=== PATIENT | female | born 1960 | race Caucasian/White ===

== ENCOUNTER 2016-11-11 11:09 | Inpatient (IN) | payer MEDICARE, MEDICAID ==
--- NOTE | 2016-11-11 13:05 | RAD ---
HISTORY: Shortness of breath COMPARISONS: June 09, 2016 VIEWS:1: Single frontal portable view of the chest at 12:30 PM FINDINGS: LINES AND TUBES: There is a left-sided pacemaker CARDIOMEDIASTINAL SILHOUETTE: The cardiomediastinal silhouette is normal for portable technique. PLEURA: The costophrenic angles are sharp. No pleural abnormalities are noted. LUNG PARENCHYMA: There is a mild diffuse reticular pattern with indistinct pulmonary vessels. ABDOMEN: The upper abdomen is clear. There is no subphrenic gas. BONES AND SOFT TISSUES: No bone or soft tissue abnormalities are noted. IMPRESSION: MILD PULMONARY INTERSTITIAL EDEMA
[2016-11-11] MEDS ORDERED: LORazepam INJ* 2 MG/ML 1 ML VIAL IM ONE ×2 (18:56→19:35)
[2016-11-11] MEDS ORDERED: Acetaminophen TAB* 325 MG PO PRN (21:11)
[2016-11-11] MEDS ORDERED: Ondansetron INJ* 2 MG/ML VIAL IV PRN (21:11)
[2016-11-11] MEDS ORDERED: traMADol TAB* 50 MG PO PRN (21:16)
[2016-11-11 21:21] LABS: Hematocrit 29 % (35-47); Hemoglobin 9.3 g/dl (12.0-16.0); Mean Corpuscular HGB Conc 33 g/dl (31-36); Mean Corpuscular Hemoglobin 31 pg (27-31); Mean Corpuscular Volume 93 fL (80-97); Mean Platelet Volume 9 um3 (7.4-10.4); Red Blood Count 3.05 10^6/ul (4.0-5.4); Red Cell Distribution Width 16 % (10.5-15); White Blood Count 12.3 10^3/ul (3.5-10.8)
[2016-11-11] MEDS ORDERED: Spironolactone TAB* 25 MG PO SCH (21:30)
[2016-11-11] MEDS ORDERED: Albuterol/Ipratropium NEB.SOL* Albuterol 2.5 MG/Ipratropium 0.5 MG 3 ML INH PRN (21:33)
[2016-11-11 21:37] LABS: ALT 7 U/L (7-52); AST 15 U/L (13-39); Albumin 2.8 g/dL (3.2-5.2); Alkaline Phosphatase 88 U/L (34-104); Anion Gap 4 mmol/L (2-11); BUN/Creatinine Ratio 32.8 (8-20); Blood Urea Nitrogen 40 mg/dL (6-24); C Reactive Protein 22.06 mg/L (< 5.00); CO2 Carbon Dioxide 28 mmol/L (22-32); Calcium 8.9 mg/dL (8.6-10.3); Chloride 105 mmol/L (101-111); EGFR African American 58.9 (>60); EGFR Non-African American 45.8 (>60); Globulin 3.2 g/dL (2-4); Glucose 60 mg/dL (70-100); Lipase < 10 U/L (11.0-82.0); Magnesium 2.2 mg/dL (1.9-2.7); Potassium 4.3 mmol/L (3.5-5.0); Sodium 137 mmol/L (133-145)
[2016-11-11 21:39] LABS: Troponin I 0.03 ng/mL (<0.04)
[2016-11-11] MEDS ORDERED: Furosemide IV* 10 MG/ML 10 ML VIAL (100 MG) IV ONE (21:42)
[2016-11-11] MEDS ORDERED: Insulin GLARGINE(*) 1 UNITS UNIT SUBCUT SCH (22:00)
[2016-11-11 22:08] LABS: TSH (Thyroid Stimulating Horm) 1.58 mcIU/mL (0.34-5.60)
[2016-11-11 22:19] LABS: Urine Bacteria Absent (Absent); Urine Bilirubin Negative (Negative); Urine Glucose Negative (Negative); Urine Nitrite Negative (Negative)
--- NOTE | 2016-11-11 22:23 | RAD ---
INDICATION: Left flank pain. COMPARISON: Comparison is made with a prior CT of the abdomen and pelvis from January 28, 2016. TECHNIQUE: Multiple real-time images of the kidneys were obtained. FINDINGS: The kidneys are normal in size shape and echogenicity. The right kidney measured 10.2 x 4.7 x 5.8 cm and the left kidney measured 10.6 x 5.8 x 4.6 cm. No significant focal abnormality or hydronephrosis was present. IMPRESSION: NEGATIVE EXAM, NO EVIDENCE FOR HYDRONEPHROSIS.
[2016-11-11] MEDS: Ciprofloxacin 400MG IVPREMIX(* 400 MG/200 ML BAG IVPB SCH (22:45)
[2016-11-12] MEDS ORDERED: Insulin GLARGINE(*) 1 UNITS UNIT SUBCUT SCH ×2 (00:06→21:00)
--- NOTE | 2016-11-12 00:08 | PN ---
Progress Note - Progress Note Note: Patient had 2 sugars of 60 and 73. Will cut Lantus in half for now. Monitor FS and adjust accordingly.
[2016-11-12] MEDS ORDERED: Dextrose 50% Syringe 50 ML* 25 GM/50 ML SYRINGE IV PUSH PRN (00:21)
[2016-11-12] MEDS ORDERED: Insulin GLARGINE(*) 1 UNITS UNIT SUBCUT ONE (00:28)
--- NOTE | 2016-11-12 01:15 | ED ---
Shiva Wallace Erika, scribed for Jatinder Padilla MD on 11/11/16 at 1626 . Progress - Progress Note Progress Note: Discussed patient care with Dr. Rodriguez (hospitalist) at 16:24 - aware of patient. We were unable to obtain peripheral IV access for many hours and after many tries including with U/S guidance. I eventually placed a right femoral triple lumen and she was admitted to the hospitalist. Course/Dx - Course Course Of Treatment: Procedure Note: Using sterile technique and U/S guidance, a right femoral triple lumen was placed on the first attempt. She tolerated it well. - Diagnoses Provider Diagnoses: CHF (congestive heart failure) Discharge - Discharge Plan Condition: Guarded Disposition: ADMITTED TO [facility] The documentation as recorded by the scribeShiva Erika accurately reflects the service I personally performed and the decisions made by me, Jatinder Padilla MD.
--- NOTE | 2016-11-12 01:19 | HP ---
HISTORY AND PHYSICAL: DATE OF ADMISSION: 11/11/16 PRIMARY CARE PROVIDER: Dr. Valdes. ATTENDING PHYSICIAN WHILE IN THE HOSPITAL: Mihai Orozco MD *(report dictated by Vsihal Jonas NP). CHIEF COMPLAINT: 1. Orthopnea. 2. Dysuria. 3. Hematuria. HISTORY OF PRESENT ILLNESS: Ms. Galarza is a 56-year-old female patient that came into the ER today. She actually was sent here by Dr. Valdes's office as there was concern because she received IV outpatient Lasix yesterday. She has a pretty extensive history of coronary artery disease, history of CHF, her last EF according to the patient is about 25%. She has a history of peripheral vascular disease, COPD, hypertension, hyperlipidemia, restless leg syndrome, coronary artery disease, and diabetes as well and CKD stage 3. She has been receiving IV Lasix in the outpatient setting for orthopnea, which has been getting worse over the last couple of weeks. She says that she has about a 30- pound weight gain, we compared her weight here today, compared it to her weight at home with her home scale. She says that she also for the last few days had been complaining of having some dysuria, some frequency, also complaining of having some right-sided flank discomfort. She had the Lasix yesterday and she only voided 2 times afterwards, which was concerning. It was concerning that she was failing the outpatient therapy, so the patient was sent to the hospital today as there was concern that she may require inpatient stabilization of her CHF. Hospitalist service was asked to evaluate her admission. PAST MEDICAL HISTORY: Significant for: 1. Diabetic foot ulcer and pulmonary edema. 2. Insulin-dependent diabetes. 3. CKD stage 3. 4. PVD. 5. COPD. 6. Hypertension. 7. Hyperlipidemia. 8. CAD. 9. CHF, which is combined. 10. History of CVA. 11. Restless leg syndrome. 12. Carotid artery disease. 13. High grade left subclavian proximal stenosis. PAST SURGICAL HISTORY: 1. She has had an appendectomy. 2. Cholecystectomy. 3. Tonsillectomy. 4. . 5. Skin graft of the left foot. 6. Cervical laminectomy. 7. CABG. 8. Multiple amputations of the left foot. 9. Carotid endarterectomy. HOME MEDICATIONS: According to the list that was provided includes: 1. Nicotine 10 mg both nares b.i.d. 2. Lantus 45 units subcu at bedtime. 3. Carvedilol 12.5 mg p.o. b.i.d. 4. Brilinta 90 mg p.o. b.i.d. 5. Glucagon 1 mg injection once as needed. 6. EpiPen 0.3 mg IM once as needed. 7. Spironolactone 25 mg p.o. Wednesday, Wednesday, Wednesday. 8. Mirapex 3 to 5 mg p.o. at bedtime. 9. Ferrous gluconate 324 mg p.o. daily. 10. Aspirin 81 mg daily. 11. Gabapentin 1800 to 2400 mg p.o. at bedtime. 12. DuoNeb 1 neb inhaled t.i.d. as needed. 13. Nitro 0.4 sublingual q.5 minutes p.r.n. chest pain x3 as needed. 14. Demadex 20 mg daily as needed. 15. Spiriva 2 capsules inhaled daily. 16. Lyrica 50 mg p.o. t.i.d. as needed. 17. Dulera 2 puffs inhaled b.i.d. 18. Zofran 4 mg p.o. every 8 hours as needed. 19. Lispro 3 units subcu a.c., h.s. 20. Imdur 30 mg daily. 21. Vasotec 10 mg p.o. b.i.d. 22. Lipitor 80 mg daily. 23. Metolazone 5 mg daily. 24. Magnesium oxide 400 mg daily. 25. Repatha 140 mg subcu every 14 days. 26. Tramadol 50 to 100 mg p.o. at bedtime as needed. 27. Macrodantin 100 mg p.o. b.i.d. ALLERGIES TO MEDICATIONS: Include CEPHALOSPORIN, PENICILLIN, SULFA, DIPHENHYDRAMINE, MEROPENEM, VANCOMYCIN, CODEINE, and BEE STING. FAMILY HISTORY: She is adopted. SOCIAL HISTORY: She does live at home with her , Genaro, who is her healthcare proxy. She does smoke about 5 cigarettes a day, has been smoking for about 30 to 35 years. She denies any alcohol use. REVIEW OF SYSTEMS: There is no documented fever. There is a significant weight change of about 30 pounds. She denies having any double vision. There is no ear discharge. There is no rhinorrhea. No sore throat. No thyroid enlargement. She does deny having any chest pain. There is orthopnea. There is nocturnal dyspnea. There is abdominal discomfort. There was some dysuria, frequency. There was no loss of consciousness. No pruritus. No skin ulcerations. Review of 14 systems completed, all others negative. PHYSICAL EXAMINATION GENERAL: At this time, Ms. Galarza is a 56-year-old female patient. She is chronically ill appearing. She does not appear to be in acute distress. She is sitting in the ER stretcher. VITAL SIGNS: Blood pressure 141/81, pulse of 89, respirations 18, her O2 sat was 97% on room air. HEENT: Head: Atraumatic, normocephalic. Eyes: EOMs intact. Sclerae anicteric and not pale. Throat: Oral mucosa appears to be moist. No oropharyngeal erythema. NECK: Supple. LUNGS: She had wheezing noted in the upper lobes. She had equal diaphragmatic expansion noted. No crackles heard. HEART: Sounds S1, S2. Regular rate and rhythm. No murmurs, rubs, or gallops were appreciated. ABDOMEN: Soft, it was flat. It was nontender. Bowel sounds present. She did have some right-sided CVA tenderness. EXTREMITIES: Pulses are 2+ throughout. She does have an amputation of the left lower extremity. 5/5 strength. NEUROLOGIC: Awake, alert, and oriented x3. Tongue midline. Street Sweeper Operator are equal. No gross focal deficits. SKIN: Grossly intact. LABORATORY DATA: Chemistries are pending. Her WBC was 12.3, RBC was 3.05. Hemoglobin 9.3, hematocrit 29, platelet count 240. Her glucose at 2000 was 73. She had chest x-ray obtained today. On my review, it did appear that she had mild pulmonary interstitial edema. She had an EKG obtained today as well, which shows a left bundle-branch block, rate of 86. It was reviewed to her previous EKG, it is similar. Last echo from 2015 reveals an EF of 40% to 45%. Old medical records were reviewed. ASSESSMENT AND PLAN: Ms. Galarza is a complex 56-year-old female patient coming into the ER today with complaints of orthopnea. In addition, she is also having some dysuria and right-sided flank pain. She will be admitted under observation status for: 1. Orthopnea. At this point, I would like to wait for her chemistries before I decide on diuresing her. She does not appear to be extremis at this point. She does not have a lot of pitting edema. Before diuresing her some more with IV Lasix, I would like to assess her electrolyte status and particularly her kidney function to make sure we have not over diuresed her. She appears to be euvolemic under my impression, but she has gained this weight, and I do have weights from May of last year when she was here and she was 120. I would like to wait for the creatinine to help me dose the Lasix, and I may give her a dose of Lasix tonight and will continue to follow. 2. Dysuria, frequency. I do note that she has an elevated white count. She will be straight cathed for her urine. I am going to go ahead and get a renal ultrasound of the kidneys tonight and of the bladder to help evaluate to make sure she does not have any stone or obstruction but she is currently not having any discomfort at this point, so it makes the stone less likely, though we will monitor for any urological problem. 3. Diabetes. She will be on a lispro sliding scale. 4. Chronic obstructive pulmonary disease. She did have some wheezing on exam. We will continue the Dulera and her Spiriva and medications as prescribed. 5. Chronic kidney disease stage 3. Again, creatinine is pending. 6. Coronary artery disease. Continue meds as prescribed. 7. Hypertension. Continue meds as prescribed. 8. Hyperlipidemia. Continue statin therapy. 9. Coronary artery disease. She is on maximum medical therapy. We will continue her meds for the time being. 10. History of cerebrovascular accident. Continue with secondary prevention. 11. History of restless leg syndrome. Continue the Mirapex. 12. Carotid artery disease. She is on Brilinta and statin. Continue her meds as prescribed. 13. Peripheral vascular disease. Continue meds as prescribed. 14. DVT prophylaxis. She is high risk. She will be placed on heparin subcu. 15. Code status. She is a full code. 16. Fluid, electrolytes, nutrition. She can have a heart healthy diet. TIME SPENT: Time spent on the admission approximately 70 minutes, greater than half the time was spent [id number] with the patient obtaining my history and physical; other half of the time was spent going over the plan of care with the patient and implementing the plan of care. I discussed the plan of care with my attending, Dr. Orozco, who is in agreement. VISHAL JONAS NP CC: Dr. Valdes* [id number]/[facility] #: [id number]
[2016-11-12 05:07] LABS: Hematocrit 27 % (35-47); Mean Corpuscular HGB Conc 33 g/dl (31-36); Mean Corpuscular Hemoglobin 31 pg (27-31); Mean Corpuscular Volume 94 fL (80-97); Mean Platelet Volume 9 um3 (7.4-10.4); Red Blood Count 2.91 10^6/ul (4.0-5.4); Red Cell Distribution Width 15 % (10.5-15); White Blood Count 8.8 10^3/ul (3.5-10.8)
[2016-11-12 05:17] LABS: BUN/Creatinine Ratio 26.7 (8-20); Calcium 8.8 mg/dL (8.6-10.3); EGFR African American 42.7 (>60); EGFR Non-African American 33.2 (>60); Potassium 3.9 mmol/L (3.5-5.0)
[2016-11-12] MEDS: Heparin VIAL(*) 5000 UNITS/ML VIAL (FIVE THOUSAND) SUBCUT SCH ×4 (05:21→21:55)
[2016-11-12] MEDS ORDERED: traMADol TAB* 50 MG PO PRN (06:36)
[2016-11-12] MEDS: Insulin LISPRO* 1 UNITS UNIT SUBCUT SCH ×4 (08:06→22:03)
[2016-11-12] MEDS: Ferrous Gluconate TAB* 324 MG TAB PO SCH (08:14)
[2016-11-12] MEDS: Carvedilol TAB* 6.25 MG PO SCH ×2 (08:14→21:57)
[2016-11-12] MEDS: Enalapril TAB* 5 MG PO SCH ×2 (08:14→21:53)
[2016-11-12] MEDS: Magnesium Oxide TAB* 400 MG PO SCH (08:14)
[2016-11-12] MEDS: Pregabalin CAP(*) 50 MG PO SCH ×3 (08:14→22:01)
[2016-11-12] MEDS: Ticagrelor* 90 MG TAB PO SCH ×2 (08:14→22:00)
[2016-11-12] MEDS: Isosorbide Mononitrate ER TAB* 30 MG PO SCH (08:14)
[2016-11-12] MEDS: Aspirin EC Low Dose* 81 MG TAB.EC PO SCH (08:14)
[2016-11-12] MEDS ORDERED: Metolazone TAB* 5 MG PO SCH (09:00)
[2016-11-12] MEDS ORDERED: Spiriva Inhaler DEVICE* 1 EACH DEVICE INH ONE (09:00)
[2016-11-12] MEDS: Mometasone/Formoter 100/5 MDI INH SCH ×2 (09:13→21:16)
[2016-11-12] MEDS: Tiotropium CAP.INH* CAP.INH/18 MCG (USE ORDER SET !) INH SCH (09:14)
[2016-11-12] MEDS: Ciprofloxacin 400MG IVPREMIX(* 400 MG/200 ML BAG IVPB SCH (10:13)
--- NOTE | 2016-11-12 17:18 | PN ---
Subjective Date of Service: 11/12/16 Interval History: Patient seen and examined at bedside. Pt states that her orthopnea has improved , she continues to not urinate very much. Pt denies urinary symptoms of urgency , frequency or dysuria. Denies fever, chills, chest discomfort, V/V/D. Tele: Sinus rhythm, rate 60-70's. 4 beat run of Vtach overnight. Family History: Unchanged from Admission Social History: Unchanged from Admission Past Medical History: Unchanged from Admission Objective Active Medications: Acetaminophen (Tylenol Tab*) 650 mg PO Q6H PRN Reason: FEVER/PAIN Albuterol/Ipratropium (Duoneb Neb.Roxy*) 1 neb INH TID PRN Reason: SHORTNESS OF BREATH Aspirin (Aspirin Ec Low Dose*) 81 mg PO DAILY [facility] Atorvastatin Calcium (Lipitor*) 80 mg PO QPM [facility] Carvedilol (Coreg Tab*) 12.5 mg PO BID [place] Dextrose (D50w Syringe 50 Ml*) 12.5 gm IV PUSH .FOR FS < 60 - SS PRN Reason: FS < 60 Enalapril Maleate (Vasotec Tab*) 10 mg PO BID [facility] Ferrous Gluconate (Fergon Tab*) 324 mg PO DAILY [facility] Gabapentin (Neurontin Cap(*)) 1,800 mg PO BEDTIME [facility] Heparin Sodium (Porcine) (Heparin Flush Picc/Ml/Cvc(*)) 0 ml IV FLUSH 0600, 1800 [place] Heparin Sodium (Porcine) (Heparin Vial(*)) 5,000 units SUBCUT Q8HR [facility] Ciprofloxacin/Dextrose (Cipro 400 Mg Ivpremix(*)) 400 mg in 200 mls @ 200 mls/ hr IVPB Q12H [facility] Insulin Glargine (Lantus(*)) 20 units SUBCUT BEDTIME [facility] Insulin Human Lispro (Humalog*) 0 units SUBCUT ACHS [facility] Reason: Protocol Isosorbide Mononitrate (Imdur Er Tab*) 30 mg PO DAILY [facility] Magnesium Oxide (Magox 400 Tab*) 400 mg PO DAILY [facility] Metolazone (Zaroxolyn Tab*) 5 mg PO DAILY [facility] Mometasone Furoate/Formoterol Fumar (Dulera 100/5 Mdi*) 2 puff INH BID [facility] Ondansetron HCl (Zofran Inj*) 4 mg IV Q6H PRN Reason: NAUSEA Pramipexole Dihydrochloride (Mirapex Tab*) 1 mg PO BEDTIME [facility] Pregabalin (Lyrica Cap(*)) 50 mg PO TID [facility] Spironolactone (Aldactone Tab*) 25 mg PO MOWEFR [facility] Ticagrelor (Brilinta*) 90 mg PO BID [facility] Tiotropium [place] (Spiriva Cap.Inh*) 1 cap INH DAILY [facility] Tramadol HCl (Ultram*) 50 mg PO Q6H PRN Reason: PAIN Vital Signs 11/11/16 11/11/16 11/11/16 19:10 19:41 20:02 Temperature Pulse Rate Respiratory 18 18 Rate Blood Pressure 91/48 (mmHg) O2 Sat by Pulse Oximetry 11/11/16 11/11/16 11/11/16 20:46 21:00 21:56 Temperature Pulse Rate 83 82 109 Respiratory Rate Blood Pressure (mmHg) O2 Sat by Pulse 95 95 82 Oximetry 11/11/16 11/11/16 11/11/16 22:53 23:00 23:07 Temperature Pulse Rate Respiratory 16 Rate Blood Pressure 93/55 110/63 (mmHg) O2 Sat by Pulse Oximetry 11/11/16 11/12/16 11/12/16 23:09 00:00 00:32 Temperature 97.8 F Pulse Rate 77 83 Respiratory 16 16 Rate Blood Pressure 118/73 (mmHg) O2 Sat by Pulse 91 96 Oximetry 11/12/16 11/12/16 11/12/16 02:32 03:48 06:14 Temperature 98.2 F Pulse Rate 77 Respiratory 16 16 Rate Blood Pressure 112/62 (mmHg) O2 Sat by Pulse 98 98 Oximetry 11/12/16 11/12/16 11/12/16 07:19 08:14 11:07 Temperature 98.1 F 97.9 F Pulse Rate 75 65 Respiratory 18 15 15 Rate Blood Pressure 118/64 103/59 (mmHg) O2 Sat by Pulse 97 95 Oximetry 11/12/16 15:35 Temperature 98.0 F Pulse Rate 69 Respiratory 14 Rate Blood Pressure 104/59 (mmHg) O2 Sat by Pulse 97 Oximetry Oxygen Devices in Use Now: None Appearance: NAD, sitting up on the side of the bed. Eyes: No Scleral Icterus, PERRLA Ears/Nose/Mouth/Throat: NL Teeth, Lips, Gums, Mucous Membranes Moist Neck: NL Appearance and Movements; NL JVP, Trachea Midline Respiratory: Symmetrical Chest Expansion and Respiratory Effort, Clear to Auscultation Cardiovascular: NL Sounds; No Murmurs; No JVD, RRR Abdominal: NL Sounds; No Tenderness; No Distention - Bowel sounds present Extremities: - - Trace bilateral LE edema Skin: No Rash or Ulcers, - - Dressing to right groin clean, dry and intact Neurological: Alert and Oriented x 3, NL Muscle Strength and Tone Lines/Tubes/Other Access: Clean, Dry and Intact PICC Line - site benign Nutrition: Taking PO's Result Diagrams: 11/12/16 04:50 11/12/16 04:50 Microbiology and Other Data: Microbiology 11/12/16 00:10 Nasal Screen MRSA (PCR)(RYNE) - Final Nasal Mrsa Negative Assess/Plan/Problems-Billing Assessment: Ms. Galarza is a 56 yo female with PMH significant for DM, pulmonary edema, CKD, PVD, COPD, HTN, HLD, CAD, and combined CHF who presented to the emergency room with complaints of orthopnea, dysuria and right sided flank pain. - Patient Problems (1) Orthopnea Code(s): R06.01 - ORTHOPNEA SNOMED Code(s): 18125401 Comment: - Pt recieved IV lasix yesterday - Improved - Hold Spironolactone and reassess in the AM (2) Decreased urination Code(s): R34 - ANURIA AND OLIGURIA SNOMED Code(s): 707178284 Comment: - Denies urinary symptoms - U/A negative - Renal US negative (3) Diabetes mellitus with chronic kidney disease Code(s): E11.22 - TYPE 2 DIABETES MELLITUS W DIABETIC CHRONIC KIDNEY DISEASE SNOMED Code(s): 33784962 Comment: - Low blood sugars overnight - Glucose 100-190's - Continue Lantus 20 u (decreased) and Lispro insulin SS (4) COPD (chronic obstructive pulmonary disease) Code(s): J44.9 - CHRONIC OBSTRUCTIVE PULMONARY DISEASE, UNSPECIFIED SNOMED Code(s): 92296115 Comment: - Stable - Continue spiriva and Dulera (5) CAD (coronary artery disease) Code(s): I25.10 - ATHSCL HEART DISEASE OF [place] CORONARY ARTERY W/O ANG PCTRS SNOMED Code(s): 97957217 Comment: - LVEF 40-45% 01/24. - Continue ticagrelor, isosirbde, ASA, statin. (6) HTN (hypertension) Code(s): I10 - ESSENTIAL (PRIMARY) HYPERTENSION SNOMED Code(s): 84300810 Comment: - SBP 90-120's - Continue Vasotac and Carvediolol (7) CKD (chronic kidney disease) stage 3, GFR 30-59 ml/min Code(s): N18.3 - CHRONIC KIDNEY DISEASE, STAGE 3 (MODERATE) SNOMED Code(s): 155455509 Comment: - Creatinine near baseline, but from admission - Will recheck in the morning (8) DVT prophylaxis Code(s): DMF9196 - SNOMED Code(s): 523666123 Comment: - Continue SQ Heparin (9) Full code status Code(s): Z78.9 - OTHER SPECIFIED HEALTH STATUS SNOMED Code(s): 552087689 Status and Disposition: OBV to Inpatient. Plan for possible discharge to home in the AM.
[2016-11-12] MEDS ORDERED: Atorvastatin* 80 MG TAB PO SCH (18:00)
[2016-11-12] MEDS ORDERED: Pramipexole TAB* 0.5 MG PO SCH (21:00)
[2016-11-12] MEDS ORDERED: Gabapentin CAP(*) 300 MG PO SCH (21:00)
[2016-11-13] MEDS ORDERED: Temazepam CAP* 15 MG PO PRN (01:02)
[2016-11-13] MEDS: Heparin VIAL(*) 5000 UNITS/ML VIAL (FIVE THOUSAND) SUBCUT SCH (05:46)
[2016-11-13 07:40] LABS: BUN/Creatinine Ratio 30.1 (8-20); Calcium 9.1 mg/dL (8.6-10.3); EGFR African American 41.2 (>60); EGFR Non-African American 32.1 (>60); Potassium 4.7 mmol/L (3.5-5.0)
[2016-11-13] MEDS: Mometasone/Formoter 100/5 MDI INH SCH (08:54)
[2016-11-13] MEDS: Tiotropium CAP.INH* CAP.INH/18 MCG (USE ORDER SET !) INH SCH (08:55)
[2016-11-13] MEDS: Insulin LISPRO* 1 UNITS UNIT SUBCUT SCH (09:05)
[2016-11-13] MEDS: Magnesium Oxide TAB* 400 MG PO SCH (09:06)
[2016-11-13] MEDS: Aspirin EC Low Dose* 81 MG TAB.EC PO SCH (09:06)
[2016-11-13] MEDS: Carvedilol TAB* 6.25 MG PO SCH (09:06)
[2016-11-13] MEDS: Enalapril TAB* 5 MG PO SCH (09:06)
[2016-11-13] MEDS: Ferrous Gluconate TAB* 324 MG TAB PO SCH (09:06)
[2016-11-13] MEDS: Ticagrelor* 90 MG TAB PO SCH (09:07)
[2016-11-13] MEDS: Isosorbide Mononitrate ER TAB* 30 MG PO SCH (09:07)
[2016-11-13] MEDS: Pregabalin CAP(*) 50 MG PO SCH (09:07)
[2016-11-13 10:02] VITALS: BP 107/66
--- NOTE | 2016-11-13 10:14 | PN ---
Subjective Date of Service: 11/13/16 Interval History: Patient seen and examined at bedside. Pt is anxious to go home today, she reports a slight increase in her urine production overnight. She reports that her breathing is close to baseline. Denies fever, chills, shortness of breath, chest discomfort, N/V/D. Pt reports some left LE edema. Tele: Sinus rhythm, rate 60-70's. Family History: Unchanged from Admission Social History: Unchanged from Admission Past Medical History: Unchanged from Admission Objective Active Medications: Acetaminophen (Tylenol Tab*) 650 mg PO Q6H PRN Reason: FEVER/PAIN Albuterol/Ipratropium (Duoneb Neb.Roxy*) 1 neb INH TID PRN Reason: SHORTNESS OF BREATH Aspirin (Aspirin Ec Low Dose*) 81 mg PO DAILY [facility] Atorvastatin Calcium (Lipitor*) 80 mg PO QPM [facility] Carvedilol (Coreg Tab*) 12.5 mg PO BID [place] Dextrose (D50w Syringe 50 Ml*) 12.5 gm IV PUSH .FOR FS < 60 - SS PRN Reason: FS < 60 Enalapril Maleate (Vasotec Tab*) 10 mg PO BID [facility] Ferrous Gluconate (Fergon Tab*) 324 mg PO DAILY [facility] Gabapentin (Neurontin Cap(*)) 1,800 mg PO BEDTIME [facility] Heparin Sodium (Porcine) (Heparin Flush Picc/Ml/Cvc(*)) 0 ml IV FLUSH 0600, 1800 [place] Heparin Sodium (Porcine) (Heparin Vial(*)) 5,000 units SUBCUT Q8HR [facility] Insulin Glargine (Lantus(*)) 20 units SUBCUT BEDTIME [facility] Insulin Human Lispro (Humalog*) 0 units SUBCUT ACHS [facility] Isosorbide Mononitrate (Imdur Er Tab*) 30 mg PO DAILY [facility] Magnesium Oxide (Magox 400 Tab*) 400 mg PO DAILY [facility] Mometasone Furoate/Formoterol Fumar (Dulera 100/5 Mdi*) 2 puff INH BID [place] Ondansetron HCl (Zofran Inj*) 4 mg IV Q6H PRN Reason: NAUSEA Pramipexole Dihydrochloride (Mirapex Tab*) 1 mg PO BEDTIME [facility] Pregabalin (Lyrica Cap(*)) 50 mg PO TID [facility] Temazepam (Restoril Cap*) 15 mg PO BEDTIME PRN Reason: INSOMNIA Ticagrelor (Brilinta*) 90 mg PO BID [facility] Tiotropium [place] (Spiriva Cap.Inh*) 1 cap INH DAILY [facility] Tramadol HCl (Ultram*) 50 mg PO Q6H PRN Reason: PAIN Vital Signs 11/12/16 11/12/16 11/12/16 19:59 20:00 20:01 Temperature Pulse Rate 73 Respiratory 16 16 Rate Blood Pressure (mmHg) O2 Sat by Pulse Oximetry 11/12/16 11/12/16 11/12/16 20:12 21:16 21:56 Temperature 98.5 F Pulse Rate 76 Respiratory 16 16 Rate Blood Pressure 121/68 (mmHg) O2 Sat by Pulse 98 95 Oximetry 11/12/16 11/12/16 11/12/16 22:01 23:33 23:58 Temperature 98.6 F Pulse Rate 73 Respiratory 16 16 16 Rate Blood Pressure 110/58 (mmHg) O2 Sat by Pulse 96 Oximetry 11/13/16 11/13/16 11/13/16 00:01 04:23 07:44 Temperature 98.0 F Pulse Rate 69 Respiratory 16 16 16 Rate Blood Pressure 88/60 (mmHg) O2 Sat by Pulse 93 Oximetry 11/13/16 11/13/16 11/13/16 07:56 08:57 09:07 Temperature 97.7 F Pulse Rate 62 68 Respiratory 16 14 16 Rate Blood Pressure 107/66 (mmHg) O2 Sat by Pulse 99 98 Oximetry Oxygen Devices in Use Now: None Appearance: NAD, sitting up on the side of the bed. Eyes: No Scleral Icterus, PERRLA Ears/Nose/Mouth/Throat: NL Teeth, Lips, Gums, Mucous Membranes Moist Neck: NL Appearance and Movements; NL JVP, Trachea Midline Respiratory: Symmetrical Chest Expansion and Respiratory Effort, Clear to Auscultation Cardiovascular: NL Sounds; No Murmurs; No JVD, RRR Abdominal: NL Sounds; No Tenderness; No Distention - Bowel sounds present Extremities: - - Trace edema to right LE and Trace to 1+ edema to left LE. Skin: - - Dry and flaky Neurological: Alert and Oriented x 3, NL Muscle Strength and Tone Lines/Tubes/Other Access: Clean, Dry and Intact PICC Line - site benign Nutrition: Taking PO's Result Diagrams: 11/12/16 04:50 11/13/16 06:20 Microbiology and Other Data: Microbiology 11/12/16 00:10 Nasal Screen MRSA (PCR)(RYNE) - Final Nasal Mrsa Negative Assess/Plan/Problems-Billing Assessment: Ms. Galarza is a 56 yo female with PMH significant for DM, pulmonary edema, CKD, PVD, COPD, HTN, HLD, CAD, and combined CHF who presented to the emergency room with complaints of orthopnea, dysuria and right sided flank pain. - Patient Problems (1) Orthopnea Code(s): R06.01 - ORTHOPNEA SNOMED Code(s): 98417784 Comment: - Improved - Pt looks to be on the dry side - Spironolactone and Metolazone held (2) Decreased urination Code(s): R34 - ANURIA AND OLIGURIA SNOMED Code(s): 396983152 Comment: - Denies urinary symptoms - U/A negative - Renal US negative (3) Diabetes mellitus with chronic kidney disease Code(s): E11.22 - TYPE 2 DIABETES MELLITUS W DIABETIC CHRONIC KIDNEY DISEASE SNOMED Code(s): 90530603 Comment: - Low blood sugars overnight - Glucose 130-190's - Resume home Lantus 30 u (4) COPD (chronic obstructive pulmonary disease) Code(s): J44.9 - CHRONIC OBSTRUCTIVE PULMONARY DISEASE, UNSPECIFIED SNOMED Code(s): 92894512 Comment: - Stable - Continue spiriva and Dulera (5) CAD (coronary artery disease) Code(s): I25.10 - ATHSCL HEART DISEASE OF [place] CORONARY ARTERY W/O ANG PCTRS SNOMED Code(s): 75647624 Comment: - LVEF 40-45% 01/24. - Continue ticagrelor, isosirbde, ASA, statin. (6) HTN (hypertension) Code(s): I10 - ESSENTIAL (PRIMARY) HYPERTENSION SNOMED Code(s): 47879086 Comment: - SBP 88-120's - Continue Vasotac and Carvediolol (7) CKD (chronic kidney disease) stage 3, GFR 30-59 ml/min Code(s): N18.3 - CHRONIC KIDNEY DISEASE, STAGE 3 (MODERATE) SNOMED Code(s): 745472500 Comment: - Creatinine near baseline, but from admission - Will recheck in the morning (8) DVT prophylaxis Code(s): GQE9758 - SNOMED Code(s): 626702489 Comment: - Continue SQ Heparin (9) Full code status Code(s): Z78.9 - OTHER SPECIFIED HEALTH STATUS SNOMED Code(s): 260547817 Status and Disposition: Inpatient. Stable for discharge to home.
--- NOTE | 2016-11-13 23:47 | DS ---
DISCHARGE SUMMARY: DATE OF ADMISSION: 11/11/16 DATE OF DISCHARGE: 11/13/16 ATTENDING PHYSICIAN: Dr. Bubba Hess* (dictated by Tressa Arnold NP). PRIMARY CARE PROVIDER: Moises Valdes MD PRIMARY DIAGNOSIS: Orthopnea secondary to congestive heart failure exacerbation. SECONDARY DIAGNOSES: 1. Diabetes mellitus. 2. Chronic obstructive pulmonary disease. 3. Chronic kidney disease, stage 3. 4. Coronary artery disease. 5. Hypertension. 6. Hyperlipidemia. 7. Peripheral vascular disease. STUDIES WHILE IN THE HOSPITAL: 1. Chest x-ray on 11/11/16. Radiologist's impression: Mild pulmonary interstitial edema. 2. Renal ultrasound on 11/11/16. Radiologist's impression: Negative exam. No evidence for hydronephrosis. DISCHARGE MEDICATIONS: New home medications: 1. Heparin flush 1 mL IV twice daily. 2. Sodium chloride flush 10 mL IV twice daily to flush PICC line per protocol. Continued home medications: 1. Dulera 100/5 two puffs inhalation twice daily. 2. Zofran 4 mg oral every 8 hours as needed for nausea. 3. Brilinta 90 mg oral twice daily. 4. Aspirin 81 mg oral daily. 5. Ferrous gluconate 324 mg oral daily. 6. Isosorbide 30 mg oral daily. 7. Lyrica 50 mg oral 3 times daily. 8. Glucagon 1 mg injection as needed for glucose less than 60. 9. Epinephrine 0.3 mg intramuscular once as needed for allergy symptoms. 10. Mirapex 3 to 5 mg oral at bedtime. 11. Neurontin 1800 to 2400 mg oral at bedtime daily. 12. DuoNeb one nebulizer inhalation 3 times daily as needed for shortness of breath or wheeze. 13. Nitroglycerin 0.4 mg sublingual every 5 minutes as needed for chest pain. 14. Atorvastatin 80 mg oral daily. 15. Magnesium oxide 400 mg oral daily. 16. Repatha SureClick 140 mg subcutaneous every 14 days. 17. Tramadol 50 to 100 mg oral at bedtime daily as needed for pain. 18. Nitrofurantoin 100 mg oral twice daily. 19. Nicotine 10 mg to both nares twice daily. 20. Carvedilol 12.5 mg oral twice daily. 21. Spiriva 2 capsules inhalation daily. 22. Lispro insulin 3 units subcutaneous before meals and at bedtime. 23. Enalapril 10 mg oral twice daily. Changed home medications: Lantus insulin 30 units subcutaneous daily at bedtime. HISTORY OF PRESENT ILLNESS/HOSPITAL COURSE: Ms. Galarza is a 56-year-old female with past medical history significant for diabetes mellitus, chronic kidney disease, peripheral vascular disease, coronary artery disease, combined congestive heart failure, who presented to the emergency room from Dr. Valdes's office with concerns for orthopnea and decreased urinary output. The patient had been receiving IV Lasix in the outpatient setting for orthopnea, which had been getting worse over the last couple of weeks. The patient states that she has gained about 30 pounds in comparison to her last stay in April. The patient also had complaints of decreased urinary output. The patient states that she had only voided 2 times after receiving IV Lasix the day prior and felt that was concerning. The patient was concerned. She was failing outpatient therapy and due to recommendations by her primary care provider, she was sent to the emergency room for further evaluation of her congestive heart failure. While in the emergency room, the patient had a chest x-ray showing mild pulmonary interstitial edema. The patient had an EKG showing a left bundle branch block that was similar to previous EKGs. The patient's last known echo from January 2016 revealed EF of 40% to 45%. Due to concern of the patient's heart failure not responding to outpatient therapy, Hospitalists were asked to evaluate the patient for admission. While in the hospital, the patient had a renal ultrasound showing no acute findings. The patient received IV Lasix in the emergency room and really did not diurese very much. The patient was able to void 100 mL and then reportedly went 12 hours before she voided again. The patient was bladder scanned. She was deemed to have 100 to 200 mL in her bladder. The patient felt that her orthopnea had improved after receiving the IV Lasix. She was able to lie flatter. The patient reported her shortness of breath improving. She was not requiring supplemental oxygen. The patient's vital signs were stable. It is to note that the patient was difficult IV stick and had to have a PICC placed during her stay. The patient had leukocytosis on arrival to the emergency room and that resolved on her next day. During the patient's stay, her BUN and creatinine has continued to elevate slightly. It appeared that the patient was on the dry side. She was reporting feeling better. The patient was asked to stay one more night so that she could be monitored and labs checked again in the morning. The patient continues to report no shortness of breath, reports that she is urinating a little bit more than she initially had. Due to the patient clinically appearing to be dry with dry flaky skin and dry mucous membranes, the patient's outpatient diuretics were held. It was felt that the patient was stable for discharge to home today with close followup with her provider as an outpatient. Ms. Galarza was stable for discharge to home today. Vital signs are as follows: Temperature 97.7, heart rate 68, respiratory rate 14, O2 sat 98% on room air, blood pressure 107/66. DISCHARGE PLAN: Ms. Galarza will be discharged to home today. Activity as tolerated. The patient has been asked to hold her diuretics including her spironolactone and metolazone over the weekend. She has been asked to monitor her weights daily. If she gains 2 pounds over the weekend, she has been asked to restart her daily metolazone. The patient has been asked to call her provider if she gains 3 pounds in 24 hours. The patient has been asked to hold her spironolactone and torsemide until she sees her provider in followup early next week. The patient will go home with a PICC line as she has a hard IV access and has a scheduled procedure in 3 weeks. I recommend considering having the patient see Dr. Graham Zavala in consultation as an outpatient for possible port placement in the outpatient setting as she has been an increasingly difficult IV start. The patient should follow with her field crop i farmworker, Dr. Johnson. She has an appointment on 11/24/16. The patient has an appointment with her primary care provider, Dr. Valdes, on 11/17/16 at 11:10. The patient has also been setup with visiting nurse to help with maintenance of her PICC. The patient has been continued on all of her usual medications. Her Lantus was decreased from 45 units daily to 30 units daily as she was running a little hypoglycemic in the mornings. The patient has been asked to return to the emergency room for shortness of breath or chest discomfort. It is to note that during the patient's stay, her last weight discharge was 159 and 12.8 ounces. This was pretty consistent with other weights taken during her stay. This is a summarized report of a complex medical history and hospital stay. For further details, please see the entire medical record. TIME SPENT: Time for this discharge was 50 minutes; 25 minutes were spent face- to- face with the patient discussing discharge plans and instructions. CONDITION ON DISCHARGE: Stable. Reviewed by TANIA HERNANDEZ 11/25/16 1443 CC: Dr. Valdes; Dr. Johnson* [id number] #: [id number] [facility]ERN[facility] HOSPITALJaylen
--- NOTE | 2016-12-12 11:02 | ED ---
Keo Wallace Benjamin, scribed for Riccardo Morales MD on 11/11/16 at 1156 . Shortness of Breath - HPI Summary HPI Summary: 56yo female sent by her PCP Dr. Johnson for recent 10-15lb water weight gain. Pt Pt also reports dyspnea with exertion, orthopnea, and swollen right ankle. Pt was given Lasix yesterday. Hx of HTN, DM, CHF, hypercholesterolemia, renal insufficiency, and left leg amputation. - History of Current Complaint Chief Complaint: EDRespiratoryDistress Time Seen by Provider: 11/11/16 11:43 Hx Obtained From: Patient Timing: Constant Current Severity: Mild Dyspnea At: Exertion Aggrevating Factors: Movement Alleviating Factors: Nothing Associated Signs & Symptoms: Calf Pain/Swelling - Allergy/Home Medications Allergies/Adverse Reactions: Allergies Allergy/AdvReac Type Severity Reaction Status Date / Time Cephalosporins Allergy Severe Shortness Verified 12/01/16 16:06 of Breath Penicillins Allergy Intermediate Hives Verified 12/01/16 16:06 Sulfa Drugs Allergy Intermediate Hives Verified 12/01/16 16:06 Bee Venom Allergy Swelling Verified 12/06/16 12:09 Of Face,Lips,& Throat Diphenhydramine Allergy Difficulty Verified 12/01/16 16:06 Breathing Meropenem Allergy Diarrhea Verified 12/01/16 16:06 Vancomycin Allergy Hives Verified 12/01/16 16:06 Codeine AdvReac Intermediate Vomiting Verified 12/01/16 16:06 bee sting Allergy Severe Hives, Uncoded 12/01/16 16:06 CLOSES UP THROAT PMH/Surg Hx/FS Hx/Imm Hx Endocrine/Hematology History: Reports: Hx Blood Transfusions, Hx Diabetes, Hx Anemia Denies: Hx Systemic Lupus Erythematosus, Hx Thyroid Disease Cardiovascular History: Reports: Hx Angioplasty, Hx Cardiac Arrest, Hx Congestive Heart Failure - ACUTE CHF, Hx Coronary Artery Disease, Hx Hypercholesterolemia, Hx Hypertension, Hx Myocardial Infarction, Hx Peripheral Vascular Disease, Other Cardiovascular Problems/Disorders - leaky valve Denies: Hx Angina, Hx Pacemaker/ICD, Hx Valvular Heart Disease Respiratory History: Reports: Hx Asthma, Hx Chronic Bronchitis, Hx Chronic Obstructive Pulmonary Disease (COPD), Hx Pneumonia, Hx Pulmonary Edema, Hx Seasonal Allergies, Hx Sleep Apnea, Other Respiratory Problems/Disorders - respiratory failure, uses home oxygen GI History: Reports: Hx Gall Bladder Disease - removed Denies: Hx Ulcer, Other GI Disorders History: Reports: Other Problems/Disorders - 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 Denies: Hx Dialysis, Hx Renal Disease Musculoskeletal History: Reports: Hx Arthritis, Hx Back Problems - h/o cervical laminectomy x3, Hx Fibromyalgia, Hx Osteoporosis, Hx Scoliosis, Other Musculoskeletal History - osteomyelitis left great toe Denies: Hx Rheumatoid Arthritis Sensory History: Reports: Hx Cataracts - MANPREET, Hx Contacts or Glasses, Hx Vision Problem, Hx Hearing Problem - R ear numbness and decreased hearing r/t TIA per pt Denies: Hx Hearing Aid Opthamlomology History: Reports: Hx Cataracts - MANPREET, Hx Contacts or Glasses, Hx Vision Problem Neurological History: Reports: Hx Migraine, Hx Nerve Disease - in patients back and arms, Hx Seizures, Hx Transient Ischemic Attacks (TIA), Other Neuro Impairments/Disorders - diabetic neuropathy Denies: Hx Dementia Psychiatric History: Reports: Hx Depression Denies: Hx Panic Disorder - Cancer History Hx Chemotherapy: No - Surgical History Surgery Procedure, Year, and Place: CARDIAC STENTS(4 PROMUS AND 1 VISIPRO PLACED AT [facility] – [place], [place]-1.5T [facility] TRIPLE BYPASS, BILATERAL CAROTID ENDARTERECTOMY ,LAP ADDY,HYSTERECTOMY,LEFT GREAT TOE AMPUTATION,APPY, T&A ,STERNAL WIRES ,LUMBAR SPINE FUSION,CSP FUSION , C SECTION,LEFT FOOT PARTIALLY AMPUTATED-GALLBLADDER REMOVED-BACK SURGERY-LASER SURGERY Hx Anesthesia Reactions: No - Immunization History Date of Tetanus Vaccine: utd per pt Date of Influenza Vaccine: utd per pt Infectious Disease History: No Infectious Disease History: Reports: Hx of Known/Suspected MRSA Denies: Hx Clostridium Difficile, Hx Hepatitis, Hx Human Immunodeficiency Virus (HIV), Hx Shingles, Hx Tuberculosis, Hx Known/Suspected VRE, Hx Known/ Suspected VRSA, History Other Infectious Disease, Traveled Outside the [place] in Last 30 Days - Family History Known Family History: Positive: Unknown - pt is adopted - Social History Alcohol Use: None Substance Use Type: Reports: None Hx Tobacco Use: Yes Smoking Status (MU): Light Every Day Tobacco Smoker Type: Cigarettes Amount Used/How Often: 5 cigarettes per day Length of Time of Smoking/Using Tobacco: 30 years Have You Smoked in the Last Year: Yes Review of Systems Constitutional: Negative Eyes: Negative ENT: Negative Cardiovascular: Negative Positive: Shortness Of Breath Gastrointestinal: Negative Genitourinary: Negative Positive: Edema - right leg Skin: Negative Neurological: Negative Psychological: Normal All Other Systems Reviewed And Are Negative: Yes Physical Exam Triage Information Reviewed: Yes Vital Signs On Initial Exam: Initial Vitals Temp Pulse Resp BP Pulse Ox 98.6 F 88 20 122/77 100 11/11/16 11:13 11/11/16 11:13 11/11/16 11:13 11/11/16 11:13 11/11/16 11:13 Vital Signs Reviewed: Yes Appearance: Positive: Well-Appearing, No Pain Distress, Well-Nourished Skin: Positive: Warm, Skin Color Reflects Adequate Perfusion, Dry Head/Face: Positive: Normal Head/Face Inspection Eyes: Positive: Normal ENT: Positive: Normal ENT inspection Neck: Positive: Supple, Nontender Respiratory/Lung Sounds: Positive: Clear to Auscultation, Breath Sounds Present Cardiovascular: Positive: RRR Abdomen Description: Positive: Nontender, No Organomegaly, Soft Bowel Sounds: Positive: Present Musculoskeletal: Positive: Normal, Strength/ROM Intact, Edema Right, Other - left leg amputated Neurological: Positive: Normal, Sensory/Motor Intact, Alert, Oriented to Person Place, Time, CN Intact II-III Psychiatric: Positive: Normal, Affect/Mood Appropriate Diagnostics - Vital Signs Vital Signs Temp Pulse Resp BP Pulse Ox 11/11/16 11:13 98.6 F 88 20 122/77 100 - Laboratory Lab Results: Lab Results 11/11/16 11/11/16 11/11/16 Range/Units 20:07 21:07 21:07 WBC 12.3 H (3.5-10.8) 10^3/ul RBC 3.05 L (4.0-5.4) 10^6/ul Hgb 9.3 L (12.0-16.0) g/dl Hct 29 L (35-47) % MCV 93 (80-97) fL MCH 31 (27-31) pg MCHC 33 (31-36) g/dl RDW 16 H (10.5-15) % Plt Count 240 (150-450) 10^3/ul MPV 9 (7.4-10.4) um3 Neut % (Auto) 77.1 (38-83) % Lymph % (Auto) 15.3 L (25-47) % [place] % (Auto) 5.8 (1-9) % Eos % (Auto) 1.2 (0-6) % Baso % (Auto) 0.6 (0-2) % Absolute Neuts (auto) 9.5 H (1.5-7.7) 10^3/ul Absolute Lymphs (auto) 1.9 (1.0-4.8) 10^3/ul Absolute Monos (auto) 0.7 (0-0.8) 10^3/ul Absolute Eos (auto) 0.1 (0-0.6) 10^3/ul Absolute Basos (auto) 0.1 (0-0.2) 10^3/ul Absolute Nucleated RBC 0.01 10^3/ul Nucleated RBC % 0.1 INR (Anticoag Therapy) 0.93 (0.89-1.11) APTT 32.6 (26.0-36.3) seconds Sodium (133-145) mmol/L Potassium (3.5-5.0) mmol/L Chloride (101-111) mmol/L Carbon Dioxide (22-32) mmol/L Anion Gap (2-11) mmol/L BUN (6-24) mg/dL Creatinine (0.51-0.95) mg/dL Est GFR ( Amer) (>60) Est GFR (Non-Af Amer) (>60) BUN/Creatinine Ratio (8-20) Glucose (70-100) mg/dL POC Glucose (mg/dL) 73 L (74-106) mg/dL Lactic Acid (0.5-2.0) mmol/L Calcium (8.6-10.3) mg/dL Magnesium (1.9-2.7) mg/dL Total Bilirubin (0.2-1.0) mg/dL AST (13-39) U/L ALT (7-52) U/L Alkaline Phosphatase (34-104) U/L Troponin I (<0.04) ng/mL C-Reactive Protein (< 5.00) mg/L B-Natriuretic Peptide ( - 100) pg/mL Total Protein (6.4-8.9) g/dL Albumin (3.2-5.2) g/dL Globulin (2-4) g/dL Albumin/Globulin Ratio (1-3) Lipase (11.0-82.0) U/L TSH (0.34-5.60) mcIU/mL Urine Color Urine Appearance Urine pH (5-9) Ur Specific [place] (1.010-1.030) Urine Protein (Negative) Urine Ketones (Negative) Urine Blood (Negative) Urine Nitrate (Negative) Urine Bilirubin (Negative) Urine Urobilinogen (Negative) Ur Leukocyte Esterase (Negative) Urine WBC (Auto) (Absent) Urine RBC (Auto) (Absent) Ur Squamous Epith Cells (Absent) Urine Bacteria (Absent) Urine Glucose (Negative) 11/11/16 11/11/16 11/11/16 Range/Units 21:07 21:07 21:07 WBC (3.5-10.8) 10^3/ul RBC (4.0-5.4) 10^6/ul Hgb (12.0-16.0) g/dl Hct (35-47) % MCV (80-97) fL MCH (27-31) pg MCHC (31-36) g/dl RDW (10.5-15) % Plt Count (150-450) 10^3/ul MPV (7.4-10.4) um3 Neut % (Auto) (38-83) % Lymph % (Auto) (25-47) % [place] % (Auto) (1-9) % Eos % (Auto) (0-6) % Baso % (Auto) (0-2) % Absolute Neuts (auto) (1.5-7.7) 10^3/ul Absolute Lymphs (auto) (1.0-4.8) 10^3/ul Absolute Monos (auto) (0-0.8) 10^3/ul Absolute Eos (auto) (0-0.6) 10^3/ul Absolute Basos (auto) (0-0.2) 10^3/ul Absolute Nucleated RBC 10^3/ul Nucleated RBC % INR (Anticoag Therapy) (0.89-1.11) APTT (26.0-36.3) seconds Sodium 137 (133-145) mmol/L Potassium 4.3 (3.5-5.0) mmol/L Chloride 105 (101-111) mmol/L Carbon Dioxide 28 (22-32) mmol/L Anion Gap 4 (2-11) mmol/L BUN 40 H (6-24) mg/dL Creatinine 1.22 H (0.51-0.95) mg/dL Est GFR ( Amer) 58.9 (>60) Est GFR (Non-Af Amer) 45.8 (>60) BUN/Creatinine Ratio 32.8 H (8-20) Glucose 60 L (70-100) mg/dL POC Glucose (mg/dL) (74-106) mg/dL Lactic Acid 0.5 (0.5-2.0) mmol/L Calcium 8.9 (8.6-10.3) mg/dL Magnesium 2.2 (1.9-2.7) mg/dL Total Bilirubin 0.50 (0.2-1.0) mg/dL AST 15 (13-39) U/L ALT 7 (7-52) U/L Alkaline Phosphatase 88 (34-104) U/L Troponin I 0.03 (<0.04) ng/mL C-Reactive Protein 22.06 H (< 5.00) mg/L B-Natriuretic Peptide 357 H ( - 100) pg/mL Total Protein 6.0 L (6.4-8.9) g/dL Albumin 2.8 L (3.2-5.2) g/dL Globulin 3.2 (2-4) g/dL Albumin/Globulin Ratio 0.9 L (1-3) Lipase < 10 L (11.0-82.0) U/L TSH 1.58 (0.34-5.60) mcIU/mL Urine Color Urine Appearance Urine pH (5-9) Ur Specific [place] (1.010-1.030) Urine Protein (Negative) Urine Ketones (Negative) Urine Blood (Negative) Urine Nitrate (Negative) Urine Bilirubin (Negative) Urine Urobilinogen (Negative) Ur Leukocyte Esterase (Negative) Urine WBC (Auto) (Absent) Urine RBC (Auto) (Absent) Ur Squamous Epith Cells (Absent) Urine Bacteria (Absent) Urine Glucose (Negative) 11/11/16 11/12/16 11/12/16 Range/Units 22:00 04:50 04:50 WBC 8.8 (3.5-10.8) 10^3/ul RBC 2.91 L (4.0-5.4) 10^6/ul Hgb 9.0 L (12.0-16.0) g/dl Hct 27 L (35-47) % MCV 94 (80-97) fL MCH 31 (27-31) pg MCHC 33 (31-36) g/dl RDW 15 (10.5-15) % Plt Count 212 (150-450) 10^3/ul MPV 9 (7.4-10.4) um3 Neut % (Auto) 72.6 (38-83) % Lymph % (Auto) 18.2 L (25-47) % [place] % (Auto) 6.6 (1-9) % Eos % (Auto) 1.8 (0-6) % Baso % (Auto) 0.8 (0-2) % Absolute Neuts (auto) 6.4 (1.5-7.7) 10^3/ul Absolute Lymphs (auto) 1.6 (1.0-4.8) 10^3/ul Absolute Monos (auto) 0.6 (0-0.8) 10^3/ul Absolute Eos (auto) 0.2 (0-0.6) 10^3/ul Absolute Basos (auto) 0.1 (0-0.2) 10^3/ul Absolute Nucleated RBC 0 10^3/ul Nucleated RBC % 0 INR (Anticoag Therapy) (0.89-1.11) APTT (26.0-36.3) seconds Sodium 136 (133-145) mmol/L Potassium 3.9 (3.5-5.0) mmol/L Chloride 102 (101-111) mmol/L Carbon Dioxide 31 (22-32) mmol/L Anion Gap 3 (2-11) mmol/L BUN 43 H (6-24) mg/dL Creatinine 1.61 H (0.51-0.95) mg/dL Est GFR ( Amer) 42.7 (>60) Est GFR (Non-Af Amer) 33.2 (>60) BUN/Creatinine Ratio 26.7 H (8-20) Glucose 97 (70-100) mg/dL POC Glucose (mg/dL) (74-106) mg/dL Lactic Acid (0.5-2.0) mmol/L Calcium 8.8 (8.6-10.3) mg/dL Magnesium (1.9-2.7) mg/dL Total Bilirubin (0.2-1.0) mg/dL AST (13-39) U/L ALT (7-52) U/L Alkaline Phosphatase (34-104) U/L Troponin I (<0.04) ng/mL C-Reactive Protein (< 5.00) mg/L B-Natriuretic Peptide ( - 100) pg/mL Total Protein (6.4-8.9) g/dL Albumin (3.2-5.2) g/dL Globulin (2-4) g/dL Albumin/Globulin Ratio (1-3) Lipase (11.0-82.0) U/L TSH (0.34-5.60) mcIU/mL Urine Color Yellow Urine Appearance Clear Urine pH 5.0 (5-9) Ur Specific [place] 1.016 (1.010-1.030) Urine Protein 3+(>=500 mg/dl) H (Negative) Urine Ketones Negative (Negative) Urine Blood Negative (Negative) Urine Nitrate Negative (Negative) Urine Bilirubin Negative (Negative) Urine Urobilinogen Negative (Negative) Ur Leukocyte Esterase Negative (Negative) Urine WBC (Auto) Trace(0-5/hpf) (Absent) Urine RBC (Auto) Trace(0-2/hpf) (Absent) Ur Squamous Epith Cells Present H (Absent) Urine Bacteria Absent (Absent) Urine Glucose Negative (Negative) 11/12/16 11/12/16 11/12/16 Range/Units 04:50 07:41 11:36 WBC (3.5-10.8) 10^3/ul RBC (4.0-5.4) 10^6/ul Hgb (12.0-16.0) g/dl Hct (35-47) % MCV (80-97) fL MCH (27-31) pg MCHC (31-36) g/dl RDW (10.5-15) % Plt Count (150-450) 10^3/ul MPV (7.4-10.4) um3 Neut % (Auto) (38-83) % Lymph % (Auto) (25-47) % [place] % (Auto) (1-9) % Eos % (Auto) (0-6) % Baso % (Auto) (0-2) % Absolute Neuts (auto) (1.5-7.7) 10^3/ul Absolute Lymphs (auto) (1.0-4.8) 10^3/ul Absolute Monos (auto) (0-0.8) 10^3/ul Absolute Eos (auto) (0-0.6) 10^3/ul Absolute Basos (auto) (0-0.2) 10^3/ul Absolute Nucleated RBC 10^3/ul Nucleated RBC % INR (Anticoag Therapy) 0.95 (0.89-1.11) APTT (26.0-36.3) seconds Sodium (133-145) mmol/L Potassium (3.5-5.0) mmol/L Chloride (101-111) mmol/L Carbon Dioxide (22-32) mmol/L Anion Gap (2-11) mmol/L BUN (6-24) mg/dL Creatinine (0.51-0.95) mg/dL Est GFR ( Amer) (>60) Est GFR (Non-Af Amer) (>60) BUN/Creatinine Ratio (8-20) Glucose (70-100) mg/dL POC Glucose (mg/dL) 107 H 151 H (74-106) mg/dL Lactic Acid (0.5-2.0) mmol/L Calcium (8.6-10.3) mg/dL Magnesium (1.9-2.7) mg/dL Total Bilirubin (0.2-1.0) mg/dL AST (13-39) U/L ALT (7-52) U/L Alkaline Phosphatase (34-104) U/L Troponin I (<0.04) ng/mL C-Reactive Protein (< 5.00) mg/L B-Natriuretic Peptide ( - 100) pg/mL Total Protein (6.4-8.9) g/dL Albumin (3.2-5.2) g/dL Globulin (2-4) g/dL Albumin/Globulin Ratio (1-3) Lipase (11.0-82.0) U/L TSH (0.34-5.60) mcIU/mL Urine Color Urine Appearance Urine pH (5-9) Ur Specific [place] (1.010-1.030) Urine Protein (Negative) Urine Ketones (Negative) Urine Blood (Negative) Urine Nitrate (Negative) Urine Bilirubin (Negative) Urine Urobilinogen (Negative) Ur Leukocyte Esterase (Negative) Urine WBC (Auto) (Absent) Urine RBC (Auto) (Absent) Ur Squamous Epith Cells (Absent) Urine Bacteria (Absent) Urine Glucose (Negative) 11/12/16 Range/Units 17:05 WBC (3.5-10.8) 10^3/ul RBC (4.0-5.4) 10^6/ul Hgb (12.0-16.0) g/dl Hct (35-47) % MCV (80-97) fL MCH (27-31) pg MCHC (31-36) g/dl RDW (10.5-15) % Plt Count (150-450) 10^3/ul MPV (7.4-10.4) um3 Neut % (Auto) (38-83) % Lymph % (Auto) (25-47) % [place] % (Auto) (1-9) % Eos % (Auto) (0-6) % Baso % (Auto) (0-2) % Absolute Neuts (auto) (1.5-7.7) 10^3/ul Absolute Lymphs (auto) (1.0-4.8) 10^3/ul Absolute Monos (auto) (0-0.8) 10^3/ul Absolute Eos (auto) (0-0.6) 10^3/ul Absolute Basos (auto) (0-0.2) 10^3/ul Absolute Nucleated RBC 10^3/ul Nucleated RBC % INR (Anticoag Therapy) (0.89-1.11) APTT (26.0-36.3) seconds Sodium (133-145) mmol/L Potassium (3.5-5.0) mmol/L Chloride (101-111) mmol/L Carbon Dioxide (22-32) mmol/L Anion Gap (2-11) mmol/L BUN (6-24) mg/dL Creatinine (0.51-0.95) mg/dL Est GFR ( Amer) (>60) Est GFR (Non-Af Amer) (>60) BUN/Creatinine Ratio (8-20) Glucose (70-100) mg/dL POC Glucose (mg/dL) 199 H (74-106) mg/dL Lactic Acid (0.5-2.0) mmol/L Calcium (8.6-10.3) mg/dL Magnesium (1.9-2.7) mg/dL Total Bilirubin (0.2-1.0) mg/dL AST (13-39) U/L ALT (7-52) U/L Alkaline Phosphatase (34-104) U/L Troponin I (<0.04) ng/mL C-Reactive Protein (< 5.00) mg/L B-Natriuretic Peptide ( - 100) pg/mL Total Protein (6.4-8.9) g/dL Albumin (3.2-5.2) g/dL Globulin (2-4) g/dL Albumin/Globulin Ratio (1-3) Lipase (11.0-82.0) U/L TSH (0.34-5.60) mcIU/mL Urine Color Urine Appearance Urine pH (5-9) Ur Specific [place] (1.010-1.030) Urine Protein (Negative) Urine Ketones (Negative) Urine Blood (Negative) Urine Nitrate (Negative) Urine Bilirubin (Negative) Urine Urobilinogen (Negative) Ur Leukocyte Esterase (Negative) Urine WBC (Auto) (Absent) Urine RBC (Auto) (Absent) Ur Squamous Epith Cells (Absent) Urine Bacteria (Absent) Urine Glucose (Negative) Result Diagrams: 11/12/16 04:50 11/13/16 06:20 Lab Statement: Any lab studies that have been ordered have been reviewed, and results considered in the medical decision making process. - Radiology CXR Xray Interpretation: Positive (See Comments) - mild pulmonary edema Radiology Interpretation Completed By: Radiologist - EKG 1118. Cardiac Rate: NL - 84bpm EKG Rhythm: Sinus Rhythm Ectopy: None EKG Interpretation: LBBB. Course/Dx - Diagnoses Provider Diagnoses: CHF (congestive heart failure) Discharge - Discharge Plan Condition: Guarded Disposition: ADMITTED TO [facility] documentation as recorded by the Keo sherwood Benjamin accurately reflects the service I personally performed and the decisions made by me, Riccardo Morales MD.
== END 2016-11-13 11:14 | disposition home or self-care (01) | DRG 291 ==
LOC: ED 11:09 → MEDTELE 19:00 → INTOOBSV 19:00 → OBSVTOIN 19:00
PROVIDERS: ADMIT Internal Medicine; ATTEND Hospitalist
DX: I13.0 Hypertensive heart and chronic kidney disease with heart failure and stage 1 through stage 4 chronic kidney disease, or unspecified chronic kidney disease (principal); I50.43 Acute on chronic combined systolic (congestive) and diastolic (congestive) heart failure; E11.22 Type 2 diabetes mellitus with diabetic chronic kidney disease; E11.51 Type 2 diabetes mellitus with diabetic peripheral angiopathy without gangrene; I25.810 Atherosclerosis of coronary artery bypass graft(s) without angina pectoris; N18.3 Chronic kidney disease, stage 3 (moderate); R06.01 Orthopnea; E78.5 Hyperlipidemia, unspecified; R31.9 Hematuria, unspecified; G25.81 Restless legs syndrome; Z79.4 Long term (current) use of insulin; Z95.1 Presence of aortocoronary bypass graft; Z79.82 Long term (current) use of aspirin; Z79.899 Other long term (current) drug therapy; Z88.0 Allergy status to penicillin; Z88.2 Allergy status to sulfonamides; Z88.8 Allergy status to other drugs, medicaments and biological substances; Z88.1 Allergy status to other antibiotic agents; Z88.6 Allergy status to analgesic agent; Z91.030 Bee allergy status
CPT/HCPCS: 36415; 71010; 76775; 80048; 80053; 81003; 81015; 83605; 83690; 83735; 83880; 84443; 84484; 85025; 85610; 85730; 86140; 87040; 87086; 87641; 93005; 94640; 94760; 99406; A9270-GY; G0378; J0744; J1644; J1940; J2060

== ENCOUNTER 2016-12-01 16:03 | Inpatient (IN) | payer MEDICARE, MEDICAID ==
[2016-12-01] MEDS ORDERED: Furosemide IV* 10 MG/ML VIAL (40 MG) IV SLOW PU ONE (16:55)
[2016-12-01] MEDS ORDERED: Ondansetron INJ* 2 MG/ML VIAL IV ONE ×2 (17:02→19:14)
[2016-12-01 17:04] LABS: Hematocrit 30 % (35-47); Hemoglobin 9.7 g/dl (12.0-16.0); Mean Corpuscular HGB Conc 33 g/dl (31-36); Mean Corpuscular Hemoglobin 30 pg (27-31); Mean Corpuscular Volume 93 fL (80-97); Mean Platelet Volume 9 um3 (7.4-10.4); Red Blood Count 3.18 10^6/ul (4.0-5.4); Red Cell Distribution Width 16 % (10.5-15); White Blood Count 10.7 10^3/ul (3.5-10.8)
[2016-12-01 17:18] LABS: Albumin 3.3 g/dL (3.2-5.2); BUN/Creatinine Ratio 37.5 (8-20); C Reactive Protein 26.26 mg/L (< 5.00); Calcium 9.3 mg/dL (8.6-10.3); EGFR African American 51.9 (>60); EGFR Non-African American 40.4 (>60); Globulin 3.6 g/dL (2-4); Magnesium 2.6 mg/dL (1.9-2.7); Potassium 4.7 mmol/L (3.5-5.0); Total Bilirubin 0.5 mg/dL (0.2-1.0); Total Protein 6.9 g/dL (6.4-8.9); Troponin I 0.03 ng/mL (<0.04)
[2016-12-01 17:32] LABS: TSH (Thyroid Stimulating Horm) 1.31 mcIU/mL (0.34-5.60)
--- NOTE | 2016-12-01 17:49 | RAD ---
Indication: Shortness of breath. Single frontal view of the chest performed at 1701 hours was reviewed. Comparison is made with previous exam dated November 11, 2016. No mediastinal shift is noted. Heart is of normal size and configuration. Lung baumann appear clear. Mild interstitial edema is noted. IMPRESSION: THERE MAY BE SOME MILD VASCULAR CONGESTION PRESENT.
[2016-12-01] MEDS ORDERED: Albuterol/Ipratropium NEB.SOL* Albuterol 2.5 MG/Ipratropium 0.5 MG 3 ML INH PRN (20:23)
[2016-12-01] MEDS ORDERED: NICOTINE 10 MG PO PRN (20:23)
[2016-12-01] MEDS ORDERED: Dextrose 50% Syringe 50 ML* 25 GM/50 ML SYRINGE IV PUSH PRN (20:33)
[2016-12-01] MEDS ORDERED: Insulin GLARGINE(*) 1 UNITS UNIT SUBCUT SCH (21:00)
--- NOTE | 2016-12-01 21:27 | ED ---
win Wallace Timothy, madisonibed for Cornelio Subramanian on 12/01/16 at 195 . Progress - Progress Note Progress Note: Michelle Galarza is a 56 yo female presenting to [facility] with lower leg edema and SOB for the past 3 days. She also c/o 6/10 upper back pain. Her MHx is significant for DM II, MRSA, CABG, CAD, RLS, CMT, asthma, carotid endarectomy, left foot amputation. Course/Dx - Course Course Of Treatment: Michelle Galarza is a 56 yo female presenting to [facility] with cough and SOB. After review of her imaging and lab results, and discussion with Dr. Orozco, she will be admitted to [facility]. - Diagnoses Provider Diagnoses: CHF (congestive heart failure) - Provider Notifications Discussed Care Of Patient With: 1955 - Dr. Orozco (hospitalist) - discussed Pt condition, will admit Pt for CHF. The documentation as recorded by the win sherwood Timothy accurately reflects the service I personally performed and the decisions made by , Cornelio Subramanian.
[2016-12-01 22:15] LABS: Urine Bacteria 1+ (Absent); Urine Bilirubin Negative (Negative); Urine Glucose Negative (Negative); Urine Nitrite Negative (Negative)
[2016-12-01] MEDS: Metolazone TAB* 5 MG PO SCH (22:59)
[2016-12-01] MEDS: Enalapril TAB* 5 MG PO SCH (23:34)
[2016-12-01] MEDS: Potassium Chlor TAB* 20 MEQ TAB.ER PO SCH (23:36)
[2016-12-01] MEDS: Ticagrelor* 90 MG TAB PO SCH (23:37)
[2016-12-01] MEDS: Insulin GLARGINE(*) 1 UNITS UNIT SUBCUT SCH (23:38)
[2016-12-01] MEDS: Pramipexole TAB* 0.5 MG PO SCH (23:51)
[2016-12-01] MEDS: Heparin VIAL(*) 5000 UNITS/ML VIAL (FIVE THOUSAND) SUBCUT SCH (23:51)
[2016-12-01] MEDS: Pregabalin CAP(*) 50 MG PO SCH (23:53)
[2016-12-01] MEDS: traMADol TAB* 50 MG PO PRN (23:53)
[2016-12-01] MEDS: Gabapentin CAP(*) 300 MG PO SCH (23:55)
[2016-12-01] MEDS: Insulin LISPRO* 1 UNITS UNIT SUBCUT SCH ×2 (23:56→23:57)
[2016-12-02] MEDS ORDERED: Ondansetron INJ* 2 MG/ML VIAL ONE (00:29)
[2016-12-02] MEDS: Ondansetron INJ* 2 MG/ML VIAL IV PRN ×2 (00:31→12:07)
--- NOTE | 2016-12-02 02:21 | HP ---
HISTORY AND PHYSICAL: DATE OF ADMISSION: 12/01/16 PRIMARY CARE PHYSICIAN: Dr. Moises Valdes. EXECUTIVE ACCOUNT MANAGER: Dr. Johnson. CHIEF COMPLAINT: Shortness of breath. HISTORY OF PRESENT ILLNESS: The patient is a 56-year-old woman with known history of congestive heart failure who presents to the [facility] with a chief complaint of worsening shortness of breath. She says this has been coming on for sometime and back this weekend she was in contact with the equine pharmacology technician who was continually increasing her diuretics. He had increased torsemide to 80 and her Zaroxolyn to 10 mg. Despite this, she put out very little urine and was increasingly short of breath. When she called him today, he recommended to go to the ER for further evaluation to see if we can make her feel better. She never had chest pain, but had some back pain between her shoulders. She says she watches diet lately and she has had a weight gain as well, but she cannot quantify it over the last several days. She has had some nausea and she has had some dry heaves. In the ER, the patient was evaluated and found to be short of breath, although she was oxygenating decently on room air, but she says she gets short of breath with minimal exertion. PAST MEDICAL HISTORY: She has a past medical history significant for: 1. Diabetic foot ulcer. 2. Pulmonary edema. 3. Insulin-dependent disease. 4. Chronic kidney disease, stage 3. 5. Peripheral vascular disease. 6. COPD. 7. Hypertension. 8. Hyperlipidemia. 9. Coronary artery disease. 10. Diastolic and systolic CHF. 11. History of CVA. 12. Restless leg syndrome. 13. Carotid artery disease. 14. High grade left subclavian proximal stenosis. PAST SURGICAL HISTORY: Significant for: 1. Appendectomy. 2. Cholecystectomy. 3. Tonsillectomy. 4. . 5. Skin graft of the left foot. 6. Cervical laminectomy. 7. CABG. 8. Multiple amputations of the left foot. 9. Carotid endarterectomy. CURRENT MEDICATIONS: Are as follows: 1. Aspirin 81 mg daily. 2. DuoNeb one neb inhalation 3 times a day as needed. 3. EpiPen once as needed for allergic reaction. 4. Enalapril 10 mg twice daily. 5. Carvedilol 6.25 mg daily. 6. Atorvastatin 80 mg in the evening. 7. Glucagon for emergencies. 8. Gabapentin 1800 to 2400 mg at bedtime. 9. Ferrous gluconate 324 mg daily. 10. Evolocumab 140 mg subcu q.14 days. 11. Magnesium oxide 400 mg daily. 12. Isosorbide mononitrate 30 mg daily. 13. Lispro insulin 6 units subcu q.a.c. and h.s. 14. Lantus insulin 63 units subcu at bedtime. 15. Nitroglycerin 0.4 mg sublingual q.5 minutes as needed. 16. Nicotrol 10 mg p.o. b.i.d. as needed. 17. Dulera 100/5 two puffs inhaled twice daily. 18. Zaroxolyn 5 mg daily. 19. Pregabalin 50 mg 3 times a day. 20. Mirapex 3 to 5 mg at bedtime. 21. Tramadol 50 to 100 mg at bedtime as needed. 22. Torsemide 20 mg daily. 23. Spiriva one capsule daily. 24. Brilinta 90 mg twice daily. Please note that the increase in her medications is noted in the history and physical will decrease back down to the normal dosages after this weekend. ALLERGIES: She has allergies to numerous medications including CEPHALOSPORINS, PENICILLIN, SULFA, DIPHENHYDRAMINE, MEROPENEM, VANCOMYCIN, CODEINE and BEE STINGS. FAMILY HISTORY: She is adopted and does not know of her biological family. SOCIAL HISTORY: She is . Lives at home with her , who is also her healthcare proxy, his name is Genaro Galarza. She still smokes about 5 cigarettes per day and has been smoking for about 30 to 35 years. No alcohol or recreational drug use. REVIEW OF SYSTEMS: A 14-point review of systems was completed with the patient. All pertinent positives and negatives are in the history of present illness, otherwise negative. PHYSICAL EXAMINATION GENERAL: Pleasant woman lying in bed in no acute distress. VITAL SIGNS: Temperature 98.7 degrees, heart rate 84 beats per minute, respiratory rate 12 breaths per minute, pulse ox 98%, blood pressure 130/75. HEENT: Normocephalic, atraumatic. Pupils equal, round and reactive to light. Moist mucous membranes. NECK: Supple. No JVD, bruits, palpable thyroid or lymphadenopathy. CHEST: She has got decreased breath sounds bilaterally. CARDIOVASCULAR EXAM: S1, S2 appreciated. ABDOMEN: Positive bowel sounds in all 4 quadrants. Soft, nontender, nondistended. EXTREMITIES: She has got amputation of the left foot, but no cyanosis or clubbing. She has got some bilateral edema. NEUROLOGIC: Alert and oriented x3. Moves all extremities. SKIN: No rashes or abnormalities. DIAGNOSTIC STUDIES/LABORATORY DATA: White count 10.7, hemoglobin 9.7, hematocrit 30, platelets 294. Sodium was 137, potassium 4.7, chloride 104, CO2 of 29, BUN 51, creatinine 0.26, glucose is 94. BNP is 48. INR is 0.88. D- dimer is 543. Urinalysis +1 rbc's, +1 wbc's, +1 bacteria, hyaline casts are present, trace leukocyte esterase. Chest x-ray was interpreted by Radiology as may be some mild vascular congestion present. EKG shows normal sinus rhythm at 92 beats a minute, left bundle-branch block pattern. ASSESSMENT AND PLAN: 1. Congestive heart failure exacerbation. She is saturating okay on room air, but she gets very short of breath with only minimal exertion. She was due to get a transthoracic echocardiogram this Wednesday. We will admit her. We will give her increased dosage of torsemide at 40 mg daily. We will put her on Zaroxolyn 10 mg daily and will give her 80 mg IV Lasix twice daily. We will monitor strict Is and Os and daily weights. I will supplement her with potassium with a significant increase in her diuretics and monitor her closely on telemetry. 2. Diabetes mellitus. Continue current regimen, fingersticks with sliding scale insulin. 3. Chronic obstructive pulmonary disease, stable. Continue current regimen. 4. Chronic kidney disease, stage 3. Monitor closely, as she is going to be heavily diuresed. I am concerned if the diuretics do not work, she may end up needing to go on dialysis eventually. 5. FEN. Consistent carbohydrate diet. 6. DVT prophylaxis. Heparin subcu. 7. The patient is full code. TIME SPENT: Over 80 minutes was spent on this H and P; more than 45 minutes of which was spent in direct [id number] contact with the patient in evaluation physical exam and counseling and coordination of care. Please note that the patient does have an abnormal urinalysis, but we will await for the cultures and I do not think she is having UTI, as she is asymptomatic and she only has +1 white cells. Also note, she does have a elevated D-dimer, but the patient has numerous comorbidities and has no signs or symptoms consistent with a PE. CC: Dr. Moises Valdes; Dr. Johnson. * [id number]/CPS #: [id number] MTDD
[2016-12-02] MEDS: Heparin VIAL(*) 5000 UNITS/ML VIAL (FIVE THOUSAND) SUBCUT SCH ×3 (06:19→21:28)
[2016-12-02] MEDS: Acetaminophen TAB* 325 MG PO PRN (07:46)
[2016-12-02] MEDS ORDERED: Spiriva Inhaler DEVICE* 1 EACH DEVICE INH ONE (09:00)
[2016-12-02] MEDS: Insulin LISPRO* 1 UNITS UNIT SUBCUT SCH ×8 (09:56→21:10)
[2016-12-02] MEDS: Torsemide TAB* 20 MG PO SCH ×2 (10:28→17:57)
[2016-12-02] MEDS: Tiotropium CAP.INH* CAP.INH/18 MCG INH SCH (10:46)
[2016-12-02] MEDS: Furosemide IV* 10 MG/ML 10 ML VIAL (100 MG) IV SCH ×2 (10:53→16:50)
[2016-12-02] MEDS: Metolazone TAB* 5 MG PO SCH (11:02)
[2016-12-02] MEDS: Pregabalin CAP(*) 50 MG PO SCH ×3 (11:03→21:21)
[2016-12-02] MEDS: Aspirin EC Low Dose* 81 MG TAB.EC PO SCH (11:03)
[2016-12-02] MEDS: Enalapril TAB* 5 MG PO SCH ×2 (11:03→21:21)
[2016-12-02] MEDS: Magnesium Oxide TAB* 400 MG PO SCH (11:04)
[2016-12-02] MEDS: Isosorbide Mononitrate ER TAB* 30 MG PO SCH (11:04)
[2016-12-02] MEDS: Potassium Chlor TAB* 20 MEQ TAB.ER PO SCH ×2 (11:05→21:22)
[2016-12-02] MEDS: Ferrous Gluconate TAB* 324 MG TAB PO SCH (11:05)
[2016-12-02] MEDS: Carvedilol TAB* 6.25 MG PO SCH (11:05)
[2016-12-02] MEDS: Ticagrelor* 90 MG TAB PO SCH ×2 (11:05→21:21)
--- NOTE | 2016-12-02 13:06 | ECHO ---
Patient: DAVID MESA Rec#: [id number] : 1960 Date: 12/02/2016 Age: 56y Height: 160 cm / 63.0 in Weight: 75 kg / 165.3 lbs Sex: F BSA: 1.78 Room#: [facility] Admit Date#: 12/01/2016 Type: Inpatient Referring: Mihai Orozco MD Reading: Cande Amado MD Ranch Manager: Raymundo To RDCS CC: Moises Valdes MD Transthoracic Echocardiogram Indication: CHF BP: 83/54 HR: 77 Findings History: HTN,HLD,CAD,CVA,NH,CABG, CM Technical Comments: The study is technically difficult. The study is technically limited due to poor parasternal windows. The study is technically limited due to patient body habitus. The study is technically limited due to the patient's history of COPD. The study is technically limited due to the patient's smoking history. Left Ventricle: The left ventricular chamber size is normal. There is global hypokinesis of the left ventricle with minor regional variation. There is severely decreased left ventricular systolic function. The estimated ejection fraction is 30-35%. The left ventricular diastolic filling pattern is consistent with pseudonormalization. Left Atrium: The left atrium is mildly dilated. Right Ventricle: The right ventricular cavity size is normal. The right ventricular global systolic function is normal. A pacemaker wire is visualized in the right ventricle. Right Atrium: The right atrial cavity size is normal. Aortic Valve: The aortic valve structure is normal. There is no evidence of aortic regurgitation. There is no evidence of aortic stenosis. Mitral Valve: The mitral valve leaflets appear normal. There is moderate mitral regurgitation. There is no evidence of mitral stenosis. Tricuspid Valve: There is mild to moderate tricuspid regurgitation. The right ventricular systolic pressure is estimated at 22 mmHg. Pulmonic Valve: The pulmonic valve structure is not well visualized. There is no evidence of pulmonic regurgitation. There is no pulmonic stenosis. Pericardium: There is no pericardial effusion. Aorta: The ascending aorta is not well visualized. There is no dilatation of the aortic arch. There is no dilation of the aortic root. Pulmonary Artery: The main pulmonary artery is not well visualized. Venous: The inferior vena cava appears normal in size. There is a greater than 50% respiratory change in the inferior vena cava dimension. Conclusions The study is technically difficult. The left ventricular chamber size is normal. There is global hypokinesis of the left ventricle with minor regional variation. The estimated ejection fraction is 30-35%. The left ventricular diastolic filling pattern is consistent with pseudonormalization, short decleration time verges on restrictive filling pattern. The right ventricular global systolic function is normal. There is moderate mitral regurgitation. There is mild to moderate tricuspid regurgitation. The right ventricular systolic pressure is estimated at 22 mmHg. Compared with prior echo of 01/29/16, the EF has decreased from 40-45%, the degree of MR is stable, the degree of TR previously moderate, PA pressure has improved from 46 mmHg. Measurements Name Value Normal Range RVIDd (AP) 2D 2.2 cm (0.9 - 2.6) RVDdMajor (2D) 3 cm (2.2 - 4.4) RAd ISD 4CH 4.2 cm (3.4 - 4.9) RA (A4C)W 2.3 cm (2.9 - 4.6) IVSd (2D) 0.8 cm (0.6 - 1) LVPWd (2D) 0.8 cm (0.6 - 1) LVIDd (2D) 5.7 cm (3.6 - 5.4) LVIDs (2D) 4.4 cm - LV FS (2D) 22 % (25 - 45) EF Teichholz (2D) 45 % - Aortic Annulus 1.7 cm (1.4 - 2.6) Ao root diameter (2D) 2.4 cm (2.1 - 3.5) Aortic arch 1.8 cm (1.8 - 3.4) LA dimension (AP) 2D 3.7 cm (2.3 - 3.8) LAd ISD 4CH 5.9 cm (2.9 - 5.3) LA ISD 4CH W 2.9 cm (2.5 - 4.5) Name Value Normal Range LA ESV SP 4CH (A/L) 48 ml - LA ESV SP 2CH (A/L) 62 ml - LA ESV BP (A/L) 57 ml - LA ESV BP (A/L) index 31.68 ml/m2 - LA ESV SP 4CH (MOD) 45 ml - LA ESV SP 2CH (MOD) 58 ml - Name Value Normal Range MV E-wave Vmax 1.08 m/sec - MV deceleration time 104 msec - MV A-wave Vmax 0.48 m/sec - MV E:A ratio 2.24 ratio - LV septal e' Vmax 0.06 m/sec - LV lateral e' Vmax 0.03 m/sec - Name Value Normal Range LVOT diameter 1.6 cm - LVOT Vmax 0.7 m/sec - Name Value Normal Range TR Vmax 2.2 m/sec - TR peak gradient 19 mmHg - RAP 3 mmHg - RVSP 22 mmHg - IVC diameter 1.74 cm - Name Value Normal Range PV Vmax 0.6 m/sec -
--- NOTE | 2016-12-02 17:39 | PN ---
Subjective Date of Service: 12/02/16 Interval History: Patient seen and examined at bedside. Pt states that she continues to have shortness of breath with ambulation to the bathroom, not requiring supplemental oxygen. Denies fever, chills, chest discomfort, N/V/D. Pt reports that she is not urinating much at a time, about 100 ml. Pt also reports LE swelling and abdominal distension and bloating with associated discomfort due to the swelling. Tele: Sinus rhythm, rate 60's. Family History: Unchanged from Admission Social History: Unchanged from Admission Past Medical History: Unchanged from Admission Objective Active Medications: Acetaminophen (Tylenol Tab*) 650 mg PO Q4H PRN Reason: FEVER/PAIN Albuterol/Ipratropium (Duoneb Neb.Roxy*) 1 neb INH TID PRN Reason: SHORTNESS OF BREATH Aspirin (Aspirin Ec Low Dose*) 81 mg PO DAILY [facility] Atorvastatin Calcium (Lipitor*) 80 mg PO QPM [facility] Carvedilol (Coreg Tab*) 6.25 mg PO DAILY [facility] Dextrose (D50w Syringe 50 Ml*) 12.5 gm IV PUSH .FOR FS < 60 - SS PRN Reason: FS < 60 Enalapril Maleate (Vasotec Tab*) 10 mg PO BID [facility] Ferrous Gluconate (Fergon Tab*) 324 mg PO DAILY [facility] Furosemide (Lasix Iv*) 80 mg IV 0800,1700 [facility] Gabapentin (Neurontin Cap(*)) 1,800 mg PO BEDTIME [facility] Heparin Sodium (Porcine) (Heparin Vial(*)) 5,000 units SUBCUT Q8HR [facility] Insulin Glargine (Lantus(*)) 30 units SUBCUT BEDTIME [facility] Insulin Human Lispro (Humalog*) 6 units SUBCUT ACHS [facility] Insulin Human Lispro (Humalog*) 0 units SUBCUT ACHS [facility] Isosorbide Mononitrate (Imdur Er Tab*) 30 mg PO DAILY [facility] Magnesium Oxide (Magox 400 Tab*) 400 mg PO DAILY [facility] Metolazone (Zaroxolyn Tab*) 10 mg PO DAILY [facility] Non-Formulary Medication (Nicotine [Nicotrol Ns]) 10 mg PO BID PRN Reason: URGES TO SMOKE Ondansetron HCl (Zofran Inj*) 4 mg IV Q4H PRN Reason: NAUSEA Potassium Chloride (Klor Con Er Tab*) 20 meq PO BID [facility] Pramipexole Dihydrochloride (Mirapex Tab*) 3 mg PO BEDTIME [facility] Pregabalin (Lyrica Cap(*)) 50 mg PO TID [facility] Ticagrelor (Brilinta*) 90 mg PO BID [facility] Tiotropium [place] (Spiriva Cap.Inh*) 1 cap INH DAILY [facility] Torsemide (Demadex*) 40 mg PO DAILY [facility] Tramadol HCl (Ultram*) 50 mg PO BEDTIME PRN Reason: PAIN Vital Signs 12/01/16 12/01/16 12/01/16 20:00 22:15 23:42 Temperature 98.7 F 98.5 F Pulse Rate 87 84 84 Respiratory 19 12 20 Rate Blood Pressure 114/79 132/75 118/73 (mmHg) O2 Sat by Pulse 93 98 100 Oximetry 12/02/16 12/02/16 12/02/16 01:55 03:18 07:09 Temperature 98.6 F 98.4 F Pulse Rate 72 72 Respiratory 16 20 16 Rate Blood Pressure 83/54 91/54 (mmHg) O2 Sat by Pulse 94 94 Oximetry 12/02/16 12/02/16 12/02/16 07:44 11:03 15:07 Temperature 98.4 F Pulse Rate 66 Respiratory 20 18 16 Rate Blood Pressure 96/59 (mmHg) O2 Sat by Pulse 96 Oximetry 12/02/16 15:46 Temperature 97.7 F Pulse Rate 65 Respiratory 18 Rate Blood Pressure 90/65 (mmHg) O2 Sat by Pulse 94 Oximetry Oxygen Devices in Use Now: None Appearance: NAD, sitting up on the side of the bed Eyes: No Scleral Icterus, PERRLA Ears/Nose/Mouth/Throat: NL Teeth, Lips, Gums, Mucous Membranes Moist Neck: NL Appearance and Movements; NL JVP, Trachea Midline Respiratory: Symmetrical Chest Expansion and Respiratory Effort, - - Rhonchi and crackles bilateral Cardiovascular: RRR, - - 2/6 systolic murmur heard best at the left lower sternal border Abdominal: - - Bowel sounds present, abdomen slightly distended, soft, non tender Extremities: - - Trace to 1+ bilateral LE edema Neurological: Alert and Oriented x 3, NL Muscle Strength and Tone Lines/Tubes/Other Access: Clean, Dry and Intact PICC Line - site benign Nutrition: Taking PO's Result Diagrams: 12/01/16 16:23 12/01/16 16:23 Assess/Plan/Problems-Billing Assessment: Ms. Galarza is 56 yo female with PMH significant for CHF, DM, CKD, PVD, COPD, HTN , HLD, CAD and left subclavian stenosis who presented to the emergency room with complaints of worsening shortness of breath. - Patient Problems (1) CHF (congestive heart failure) Code(s): I50.9 - HEART FAILURE, UNSPECIFIED SNOMED Code(s): 08716745 Comment: - Acute on chronic diastolic/systolic CHF - Crackles and rhonchi on exam - BP lower - Continues to have shortness of breath with exertion - Continue Torsemide, Zaroxolyn, IV lasix - Monitor I+O's and daily weights - Pt states her baseline weight was 130-140 but over the last few months has increased to 150-160 lbs. - ECHO shows EF 30-35%, was 25-30% in September at the cardiology office - Poor urine output - Will consider asking cardiology to see in the AM, if no improvement overnight (2) Decreased urination Code(s): R34 - ANURIA AND OLIGURIA SNOMED Code(s): 969015466 Comment: - Denies urinary symptoms - U/A - 1+ RBCs, 1+ WBCs, +1 bacteria, trace leukocyte esterase - Urine culture pending, hold on ABX (3) HTN (hypertension) Code(s): I10 - ESSENTIAL (PRIMARY) HYPERTENSION SNOMED Code(s): 12127271 Comment: - SBP 80-120's - Recommend taking BP on LE due to hx left subclavian stenosis - Continue Vasotac (will decrease dose) and Carvediolol (4) Peripheral vascular disease Code(s): I73.9 - PERIPHERAL VASCULAR DISEASE, UNSPECIFIED SNOMED Code(s): 052774790 Comment: - s/p stenting 11/05/15 - Continue ticagrelor and ASA 81 (5) CAD (coronary artery disease) Code(s): I25.10 - ATHSCL HEART DISEASE OF [place] CORONARY ARTERY W/O ANG PCTRS SNOMED Code(s): 50797542 Comment: - LVEF 40-45% 01/24. EF 25-30% in cardiology office in 09/25, now 30- 35% - Continue ticagrelor, isosirbde, ASA, statin. (6) COPD (chronic obstructive pulmonary disease) Code(s): J44.9 - CHRONIC OBSTRUCTIVE PULMONARY DISEASE, UNSPECIFIED SNOMED Code(s): 54301326 Comment: - Stable - Continue spiriva and Dulera (7) Diabetes mellitus with chronic kidney disease Code(s): E11.22 - TYPE 2 DIABETES MELLITUS W DIABETIC CHRONIC KIDNEY DISEASE SNOMED Code(s): 95901858 Comment: - Glucose 80-120's - Continue Lantus and Lispro SS - Monitor renal function (8) DVT prophylaxis Code(s): CBM3103 - SNOMED Code(s): 520785775 Comment: - Continue SQ Heparin (9) Full code status Code(s): Z78.9 - OTHER SPECIFIED HEALTH STATUS SNOMED Code(s): 295502695 Status and Disposition: OBV to Inpatient. Discharge to home when medically stable.
[2016-12-02] MEDS: Atorvastatin* 80 MG TAB PO SCH (17:57)
[2016-12-02] MEDS: Pramipexole TAB* 0.5 MG PO SCH (21:19)
[2016-12-02] MEDS: Gabapentin CAP(*) 300 MG PO SCH (21:23)
[2016-12-02] MEDS: traMADol TAB* 50 MG PO PRN (21:24)
[2016-12-02] MEDS: Insulin GLARGINE(*) 1 UNITS UNIT SUBCUT SCH (21:26)
[2016-12-03] MEDS: traMADol TAB* 50 MG PO PRN ×2 (05:36→12:58)
[2016-12-03] MEDS: Heparin VIAL(*) 5000 UNITS/ML VIAL (FIVE THOUSAND) SUBCUT SCH ×3 (05:38→21:37)
[2016-12-03 05:55] LABS: Hematocrit 27 % (35-47); Hemoglobin 8.5 g/dl (12.0-16.0)
[2016-12-03 06:07] LABS: BUN/Creatinine Ratio 22.7 (8-20); Calcium 9.2 mg/dL (8.6-10.3); EGFR Non-African American 19.5 (>60); Potassium 5.7 mmol/L (3.5-5.0)
[2016-12-03] MEDS: Insulin LISPRO* 1 UNITS UNIT SUBCUT SCH ×8 (08:23→21:37)
[2016-12-03] MEDS: Furosemide IV* 10 MG/ML 10 ML VIAL (100 MG) IV SCH (08:45)
[2016-12-03] MEDS ORDERED: Sodium Polystyrene ORAL.SOL* 15 GM/60 ML BTL PO ONE (09:30)
--- NOTE | 2016-12-03 09:30 | PN ---
Subjective Date of Service: 12/03/16 Interval History: Pt is feeling poorly. She c/o SOB with minimal exertion, she feels she is swollen everywhere including her face, hands, abdomen and legs. She feels very bloated. She has pain in her B/L LE that is different from her neuropathy pain. Objective Active Medications: Acetaminophen (Tylenol Tab*) 650 mg PO Q4H PRN PRN Reason: FEVER/PAIN Last Admin: 12/02/16 07:46 Dose: 650 mg Albuterol/Ipratropium (Duoneb Neb.Roxy*) 1 neb INH TID PRN PRN Reason: SHORTNESS OF BREATH Aspirin (Aspirin Ec Low Dose*) 81 mg PO DAILY [facility] Last Admin: 12/02/16 11:03 Dose: 81 mg Atorvastatin Calcium (Lipitor*) 80 mg PO QPM [facility] Last Admin: 12/02/16 17:57 Dose: 80 mg Carvedilol (Coreg Tab*) 6.25 mg PO DAILY [facility] Last Admin: 12/02/16 11:05 Dose: 6.25 mg Dextrose (D50w Syringe 50 Ml*) 12.5 gm IV PUSH .FOR FS < 60 - SS PRN PRN Reason: FS < 60 Enalapril Maleate (Vasotec Tab*) 5 mg PO BID [facility] Last Admin: 12/02/16 21:21 Dose: 5 mg Ferrous Gluconate (Fergon Tab*) 324 mg PO DAILY [facility] Last Admin: 12/02/16 11:05 Dose: 324 mg Gabapentin (Neurontin Cap(*)) 1,800 mg PO BEDTIME [facility] Last Admin: 12/02/16 21:23 Dose: 1,800 mg Heparin Sodium (Porcine) (Heparin Vial(*)) 5,000 units SUBCUT Q8HR [facility] Last Admin: 12/03/16 05:38 Dose: 5,000 units Insulin Glargine (Lantus(*)) 30 units SUBCUT BEDTIME [facility] Last Admin: 12/02/16 21:26 Dose: 30 unit Insulin Human Lispro (Humalog*) 6 units SUBCUT ACHS [facility] Last Admin: 12/03/16 08:43 Dose: 6 units Insulin Human Lispro (Humalog*) 0 units SUBCUT ACHS [facility] PRN Reason: Protocol Last Admin: 12/03/16 08:23 Dose: Not Given Isosorbide Mononitrate (Imdur Er Tab*) 30 mg PO DAILY [facility] Last Admin: 12/02/16 11:04 Dose: 30 mg Magnesium Oxide (Magox 400 Tab*) 400 mg PO DAILY [facility] Last Admin: 12/02/16 11:04 Dose: 400 mg Non-Formulary Medication (Nicotine [Nicotrol Ns]) 10 mg PO BID PRN PRN Reason: URGES TO SMOKE Ondansetron HCl (Zofran Inj*) 4 mg IV Q4H PRN PRN Reason: NAUSEA Last Admin: 12/02/16 12:07 Dose: 4 mg Potassium Chloride (Klor Con Er Tab*) 20 meq PO BID [facility] Last Admin: 12/02/16 21:22 Dose: 20 meq Pramipexole Dihydrochloride (Mirapex Tab*) 3 mg PO BEDTIME [facility] Last Admin: 12/02/16 21:19 Dose: 3 mg Pregabalin (Lyrica Cap(*)) 50 mg PO TID [facility] Last Admin: 12/02/16 21:21 Dose: 50 mg Sodium Polystyrene Sulfonate (Kayexalate Oral.Roxy*) 30 gm PO ONCE ONE Stop: 12/03/16 09:31 Ticagrelor (Brilinta*) 90 mg PO BID [facility] Last Admin: 12/02/16 21:21 Dose: 90 mg Tiotropium [place] (Spiriva Cap.Inh*) 1 cap INH DAILY [facility] Last Admin: 12/02/16 10:46 Dose: 1 cap.inh Tramadol HCl (Ultram*) 50 mg PO BEDTIME PRN PRN Reason: PAIN Last Admin: 12/02/16 21:24 Dose: 50 mg Tramadol HCl (Ultram*) 100 mg PO Q6H PRN PRN Reason: PAIN Last Admin: 12/03/16 05:36 Dose: 100 mg Vital Signs 12/02/16 12/02/16 12/02/16 18:01 19:16 20:00 Temperature 98.8 F Pulse Rate 72 Respiratory 16 16 Rate Blood Pressure 110/65 122/67 (mmHg) O2 Sat by Pulse 95 Oximetry 12/02/16 12/02/16 12/02/16 21:21 21:23 21:24 Temperature Pulse Rate Respiratory 16 16 16 Rate Blood Pressure (mmHg) O2 Sat by Pulse Oximetry 12/02/16 12/02/1617 22:43 23:21 23:23 Temperature Pulse Rate Respiratory 16 18 18 Rate Blood Pressure (mmHg) O2 Sat by Pulse Oximetry 12/02/16 12/02/16 12/03/16 23:24 23:28 03:14 Temperature 98.6 F 98.5 F Pulse Rate 72 72 Respiratory 18 20 20 Rate Blood Pressure 90/57 133/51 (mmHg) O2 Sat by Pulse 92 96 Oximetry 12/03/16 12/03/16 12/03/16 05:36 07:24 07:36 Temperature 98.4 F Pulse Rate 73 Respiratory 16 16 18 Rate Blood Pressure 135/47 (mmHg) O2 Sat by Pulse 94 Oximetry 12/03/16 12/03/16 07:50 09:24 Temperature 98.3 F Pulse Rate 67 Respiratory 18 16 Rate Blood Pressure 119/62 (mmHg) O2 Sat by Pulse 96 Oximetry Oxygen Devices in Use Now: None Appearance: Middle aged female sitting up in bed, NAD Eyes: No Scleral Icterus Ears/Nose/Mouth/Throat: Mucous Membranes Moist Respiratory: Symmetrical Chest Expansion and Respiratory Effort, Clear to Auscultation - slightly decreased breath sounds R base and faint crackles bilaterally Cardiovascular: NL Sounds; No Murmurs; No JVD, RRR, - - 2+ pitting edema to the B/L LE Abdominal: - - BS+ soft, NT, mildly distended Extremities: No Clubbing, Cyanosis, - - s/p Skin: No Nodules or Sclerosis Neurological: Alert and Oriented x 3 Result Diagrams: 12/03/16 05:35 12/03/16 05:35 Assess/Plan/Problems-Billing Ms. Galarza is 56 yo female with PMHx significant for systolic and diastolic CHF , Type II DM, stage III CKD, PVD, COPD, HTN, HLD, CAD and left subclavian stenosis who presented to the emergency room with complaints of worsening shortness of breath and was admitted for acute decompensated systolic and diastolic CHF. - Patient Problems (1) Acute on chronic systolic (congestive) heart failure Current Visit: Yes Status: Acute Code(s): I50.23 - ACUTE ON CHRONIC SYSTOLIC (CONGESTIVE) HEART FAILURE SNOMED Code(s): 822750181 Comment: The patient is failing attempts at diuresis. She has been maintained on torsemide 40mg daily and metolazone daily. When she was admitted she was also started on lasix 80mg IV BID. Depsite this the patient's weight has gone up and she feels no better. Additionally her creatinine has doubled today. Will hold on further diuretic therapy and ask for cardiology evaluation. According to Dr. Johnson's outpatient notes his hope was to get a response from the diuretic therapy and if unable she may need the an LV wire placed thorascopically so she gets a BiVentricular pacer. (2) LELIA (acute kidney injury) Current Visit: Yes Status: Acute Code(s): N17.9 - ACUTE KIDNEY FAILURE, UNSPECIFIED SNOMED Code(s): 60957483 Comment: Creatinine just about doubled from admission. Likely related to her aggressive diuresis and likely intravascular volume depletion. Will hold all diuretics and ACEI. Recheck BMP tonight to re-eval hyperkalemia. (3) Hyperkalemia Current Visit: Yes Status: Acute Code(s): E87.5 - HYPERKALEMIA SNOMED Code (s): 94256858 Comment: I suspect this is related to her LELIA and being on potassium supplementation. Give kayexalate now and repeat BMP this afternoon. (4) Uncontrolled type II diabetes mellitus Current Visit: Yes Status: Acute Code(s): E11.65 - TYPE 2 DIABETES MELLITUS WITH HYPERGLYCEMIA SNOMED Code(s): 36359877 Comment: Last A1c read 11/27/16 is improved from previous done 07/2016. Continue lantus 30 units SQ daily and standing lispro ACHS with addition of sliding scale. Sugars are under good control this hospitalization. (5) Anemia Current Visit: Yes Status: Acute Code(s): D64.9 - ANEMIA, UNSPECIFIED SNOMED Code(s): 129370156 Comment: The patient is chronically anemic but slightly worse than previous. ? hemodilution. She has known anemia of chronic disease. Will send stool guaiac. (6) CAD (coronary artery disease) Current Visit: Yes Status: Chronic Code(s): I25.10 - ATHSCL HEART DISEASE OF [place] CORONARY ARTERY W/O ANG PCTRS SNOMED Code(s): 60273546 Comment: No complaints of chest pain. Her echo shows an EF of 30-35%. Continue lipitor and imdur. Will discuss with cardiology holding ASA, brilinta for powerport placement. (7) Peripheral vascular disease Current Visit: Yes Status: Acute Code(s): I73.9 - PERIPHERAL VASCULAR DISEASE, UNSPECIFIED SNOMED Code(s): 433095084 Comment: Pt had stenting to the L LE. She has been on ASA and brilinta. She has been scheduled for a powerport placement on 12/08/16 and she needs to be off both ASA and brilinta for the procedure-will discuss with cardiology about holding these for the next several days. (8) HTN (hypertension) Current Visit: Yes Status: Chronic Onset Date: 06/23/14 Code(s): I10 - ESSENTIAL (PRIMARY) HYPERTENSION SNOMED Code(s): 93353786 Comment: BP is stable. Continue coreg, hold enalapril given LELIA and hyperkalemia. (9) COPD (chronic obstructive pulmonary disease) Current Visit: Yes Status: Chronic Code(s): J44.9 - CHRONIC OBSTRUCTIVE PULMONARY DISEASE, UNSPECIFIED SNOMED Code(s): 64683879 Comment: No signs of exacerbation at this time. Continue spiriva and dulera. (10) Tobacco abuse Current Visit: Yes Status: Acute Code(s): Z72.0 - TOBACCO USE SNOMED Code( s): 754000780 Comment: Encourage smoking cessation. (11) DVT prophylaxis Current Visit: Yes Status: Acute Code(s): KKQ5522 - SNOMED Code(s): 658533941 Comment: SQ heparin (12) Full code status Current Visit: Yes Status: Acute Code(s): Z78.9 - OTHER SPECIFIED HEALTH STATUS SNOMED Code(s): 801759497 Status and Disposition: .
[2016-12-03] MEDS: Tiotropium CAP.INH* CAP.INH/18 MCG INH SCH (10:02)
[2016-12-03] MEDS: Ferrous Gluconate TAB* 324 MG TAB PO SCH (10:06)
[2016-12-03] MEDS: Ticagrelor* 90 MG TAB PO SCH (10:06)
[2016-12-03] MEDS: Isosorbide Mononitrate ER TAB* 30 MG PO SCH (10:06)
[2016-12-03] MEDS: Magnesium Oxide TAB* 400 MG PO SCH (10:06)
[2016-12-03] MEDS: Aspirin EC Low Dose* 81 MG TAB.EC PO SCH (10:06)
[2016-12-03] MEDS: Pregabalin CAP(*) 50 MG PO SCH ×3 (10:06→20:25)
[2016-12-03] MEDS: Potassium Chlor TAB* 20 MEQ TAB.ER PO SCH (10:13)
[2016-12-03] MEDS: Carvedilol TAB* 6.25 MG PO SCH (10:13)
[2016-12-03] MEDS: Metolazone TAB* 5 MG PO SCH (10:13)
[2016-12-03] MEDS: Enalapril TAB* 5 MG PO SCH (10:13)
[2016-12-03] MEDS: Torsemide TAB* 20 MG PO SCH (10:16)
--- NOTE | 2016-12-03 10:25 | CONSULT ---
Subjective Date of Service: 12/03/16 Interval History: Provider: Mihai Orozco MD/Hospitalist DATE OF ADMISSION: 12/01/16 PRIMARY CARE PHYSICIAN: Dr. Moises Valdes. DRILLER HELPER: Dr. Johnson. CHIEF COMPLAINT: Shortness of breath. Reason for consult: CHF HISTORY OF PRESENT ILLNESS: Michelle Galarza is a 56 year old woman with a history of IDDM (she states longstanding type 1), tobacco use, anemia, ICM/systolic HF, ICD, LBBB had failed LV lead placement at [facility] Dr. Quiñonez with consideration epicardial lead. Has had multiple CHF admission most recently 3 weeks ago. Patient has had progressive weight gain and dyspnea and recently Dr. Johnson office last week had 17 pound weight gain since 07/2016. Also has been progressive abdominal distension, weakness. No chest pain, syncope or ICD firings. Coreg dose was recently decreased and diuretics were increased is on both torsemide and Zaroxolyn but symptoms persisted and she was admitted 2 days ago with a CHF exacerbation. Her creatinine has doubled to 2.56 with IV diuresis and is not diuresing. She remains symptomatic nearly at rest. She is warm and adequately perfused. There are plans for PICC line next week due to chronic poor IV access. PAST MEDICAL HISTORY: She has a past medical history significant for: 1. Diabetic foot ulcer. 2. Systolic HF 3. Insulin-dependent disease. 4. Chronic kidney disease, stage 3. 5. Peripheral vascular disease. 6. COPD. 7. Hypertension. 8. Hyperlipidemia. 9. Coronary artery disease. 10. Diastolic and systolic CHF. 11. History of CVA. 12. Restless leg syndrome. 13. Carotid artery disease. 14. High grade left subclavian proximal stenosis. PAST SURGICAL HISTORY: Significant for: 1. Appendectomy. 2. Cholecystectomy. 3. Tonsillectomy. 4. . 5. Skin graft of the left foot. 6. Cervical laminectomy. 7. CABG. 8. Multiple amputations of the left foot. 9. Carotid endarterectomy. 10. 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 FAMILY HISTORY: She is adopted and does not know of her biological family. SOCIAL HISTORY: She is . Lives at home with her , who is also her healthcare proxy, his name is Genaro Galarza and he is present today. She still smokes about 5 cigarettes per day and has been smoking for about 30 to 35 years. No alcohol or recreational drug use. Medications Active Medications: Acetaminophen (Tylenol Tab*) 650 mg PO Q4H PRN PRN Reason: FEVER/PAIN Last Admin: 12/02/16 07:46 Dose: 650 mg Albuterol/Ipratropium (Duoneb Neb.Dion*) 1 neb INH TID PRN PRN Reason: SHORTNESS OF BREATH Aspirin (Aspirin Ec Low Dose*) 81 mg PO DAILY [facility] Last Admin: 12/03/16 10:06 Dose: 81 mg Atorvastatin Calcium (Lipitor*) 80 mg PO QPM [facility] Last Admin: 12/02/16 17:57 Dose: 80 mg Dextrose (D50w Syringe 50 Ml*) 12.5 gm IV PUSH .FOR FS < 60 - SS PRN PRN Reason: FS < 60 Ferrous Gluconate (Fergon Tab*) 324 mg PO DAILY [facility] Last Admin: 12/03/16 10:06 Dose: 324 mg Gabapentin (Neurontin Cap(*)) 1,800 mg PO BEDTIME [facility] Last Admin: 12/02/16 21:23 Dose: 1,800 mg Heparin Sodium (Porcine) (Heparin Vial(*)) 5,000 units SUBCUT Q8HR [facility] Last Admin: 12/03/16 05:38 Dose: 5,000 units Milrinone Lactate/Dextrose (Primacor*) 100 mls @ 0 mls/hr IVPB .Q24H [place] PRN Reason: As Directed Insulin Glargine (Lantus(*)) 30 units SUBCUT BEDTIME [facility] Last Admin: 12/02/16 21:26 Dose: 30 unit Insulin Human Lispro (Humalog*) 6 units SUBCUT ACHS [facility] Last Admin: 12/03/16 08:43 Dose: 6 units Insulin Human Lispro (Humalog*) 0 units SUBCUT ACHS [facility] PRN Reason: Protocol Last Admin: 12/03/16 08:23 Dose: Not Given Isosorbide Mononitrate (Imdur Er Tab*) 30 mg PO DAILY [facility] Last Admin: 12/03/16 10:06 Dose: 30 mg Magnesium Oxide (Magox 400 Tab*) 400 mg PO DAILY [facility] Last Admin: 12/03/16 10:06 Dose: 400 mg Non-Formulary Medication (Nicotine [Nicotrol Ns]) 10 mg PO BID PRN PRN Reason: URGES TO SMOKE Ondansetron HCl (Zofran Inj*) 4 mg IV Q4H PRN PRN Reason: NAUSEA Last Admin: 12/02/16 12:07 Dose: 4 mg Pramipexole Dihydrochloride (Mirapex Tab*) 3 mg PO BEDTIME [facility] Last Admin: 12/02/16 21:19 Dose: 3 mg Pregabalin (Lyrica Cap(*)) 50 mg PO TID [facility] Last Admin: 12/03/16 10:06 Dose: 50 mg Ticagrelor (Brilinta*) 90 mg PO BID [facility] Last Admin: 12/03/16 10:06 Dose: 90 mg Tiotropium [place] (Spiriva Cap.Inh*) 1 cap INH DAILY [facility] Last Admin: 12/03/16 10:02 Dose: 1 cap.inh Tramadol HCl (Ultram*) 50 mg PO BEDTIME PRN PRN Reason: PAIN Last Admin: 12/02/16 21:24 Dose: 50 mg Tramadol HCl (Ultram*) 100 mg PO Q6H PRN PRN Reason: PAIN Last Admin: 12/03/16 05:36 Dose: 100 mg Home Medications: Mometasone/Formoter 100/5 MDI* [Dulera 100/5 MDI*] 2 puff INH BID 09/23/15 [ History Confirmed 12/01/16] Aspirin EC Low Dose* [Ecotrin EC Low Dose*] 81 mg PO DAILY tab.ec 02/16/16 [Rx Confirmed 12/01/16] Ferrous Gluconate TAB* [Fergon TAB*] 324 mg PO DAILY #30 tab 02/16/16 [Rx Confirmed 12/01/16] Isosorbide Mononitrate ER TAB* [Imdur ER TAB*] 30 mg PO DAILY tab.er 02/16/16 [ Rx Confirmed 12/01/16] Ticagrelor* [Brilinta 90 MG*] 90 mg PO BID tab 02/16/16 [Rx Confirmed 12/01/16] Pregabalin CAP(*) [Lyrica CAP(*)] 50 mg PO TID #90 cap MDD 3 02/17/16 [Rx Confirmed 12/01/16] Torsemide TAB* [Demadex 20 MG*] 60 mg PO DAILY PRN #30 tab 06/09/16 [Rx Confirmed 12/01/16] Albuterol/Ipratropium NEB.DION* [Duoneb NEB.DION*] 1 neb INH TID PRN 11/11/16 [ History Confirmed 12/01/16] Atorvastatin* [Lipitor 80 MG*] 80 mg PO QPM 11/11/16 [History Confirmed 12/01/16 ] Carvedilol TAB* [Coreg TAB*] 6.25 mg PO DAILY 11/11/16 [History Confirmed ] Enalapril TAB* [Vasotec TAB*] 10 mg PO BID 11/11/16 [History Confirmed 12/01/16] Epinephrine [Epipen 2-Abdi] 0.3 mg IM ONCE PRN 11/11/16 [History Confirmed ] Evolocumab [Repatha Sureclick] 140 mg SUBCUT Q14D 11/11/16 [History Confirmed ] Gabapentin TAB(NF) [Neurontin 600 mg TAB(NF)] 1,800 - 2,400 mg PO BEDTIME [History Confirmed 12/01/16] Glucagon (Rdna) [Glucagon Emergency Kit] 1 mg INJ ONCE PRN 11/11/16 [History Confirmed 12/01/16] Insulin LISPRO* [HumaLOG*] 6 units SUBCUT ACHS 11/11/16 [History Confirmed 12/01] Magnesium Oxide TAB* [MagOx 400 TAB*] 400 mg PO DAILY 11/11/16 [History Confirmed 12/01/16] Metolazone TAB* [Zaroxolyn TAB*] 5 mg PO DAILY 11/11/16 [History Confirmed 12/01] Nicotine [Nicotrol Ns] 10 mg PO BID PRN 11/11/16 [History Confirmed 12/01/16] Nitroglycerin TAB 0.4 MG* 0.4 mg SL Q5M PRN 11/11/16 [History Confirmed 12/01/16 ] Pramipexole Dihydrochloride [Mirapex] 3 - 5 mg PO BEDTIME 11/11/16 [History Confirmed 12/01/16] Tiotropium CAP.INH* [Spiriva CAP.INH*] 1 cap INH DAILY 11/11/16 [History Confirmed 12/01/16] traMADol TAB* [Ultram*] 50 - 100 mg PO BEDTIME PRN 11/11/16 [History Confirmed 12/01/16] Insulin GLARGINE(*) [Lantus(*)] 63 units SUBCUT BEDTIME 11/30/16 [History Confirmed 12/01/16] Review of Systems - Measurements Intake and Output: Intake and Output Last 24 Hours 12/01/16 12/02/16 12/03/16 12/04/16 06:59 06:59 06:59 06:59 Intake Total 1000 Output Total 200 Balance 800 Weight 165 lb 1.6 oz Intake: Oral 1000 Output: Urine 200 Other: # Bowel Movements 1 Estimated Stool Amount Small # Voids 0 - Review of Systems Review of Systems Statement: All other review of systems negative, unless stated above. Objective Vital Signs: Temp Pulse Resp BP Pulse Ox 98.3 F 67 18 119/62 96 12/03/16 09:24 12/03/16 09:24 12/03/16 10:06 12/03/16 09:24 12/03/16 09:24 Oxygen Devices in Use Now: None Appearance: chronically ill appearing but not distressed, pleasant Ears/Nose/Mouth/Throat: Clear Oropharnyx Neck: - - + JVD but limited evaluation by endocarterectomy scars Respiratory: Symmetrical Chest Expansion and Respiratory Effort, - - mild R>L crackles Cardiovascular: - - RRR, distant, sternotomy scar and device site intact, no more than 2/6 murmur Abdominal: - - soft, mild distended, non-tender Extremities: - - L foot s/p surgical changes, 1+ edema, adequately perfused Skin: No Nodules or Sclerosis Neurological: Alert and Oriented x 3 Laboratory Results: 12/03/16 05:35 12/03/16 05:35 INR (Anticoag Therapy) 0.88 (0.89-1.11) L 12/01/16 16:23 APTT 34.0 seconds (26.0-36.3) 12/01/16 16:23 Total Bilirubin 0.50 mg/dL (0.2-1.0) 12/01/16 16:23 AST 17 U/L (13-39) 12/01/16 16:23 ALT 10 U/L (7-52) 12/01/16 16:23 Alkaline Phosphatase 135 U/L (34-104) H 12/01/16 16:23 CK-MB (CK-2) 7.6 ng/mL (0.6-6.3) H 12/01/16 16:23 B-Natriuretic Peptide 489 pg/mL (-100) H 12/01/16 16:23 Total Protein 6.9 g/dL (6.4-8.9) 12/01/16 16:23 Albumin 3.3 g/dL (3.2-5.2) 12/01/16 16:23 Globulin 3.6 g/dL (2-4) 12/01/16 16:23 Albumin/Globulin Ratio 0.9 (1-3) L 12/01/16 16:23 TSH 1.31 mcIU/mL (0.34-5.60) 12/01/16 16:23 Diagnostic Imaging: Cath 03/2016: pRCA occluded, SVG-RCA patent, PDA stent patent, 80% small caliber RPL lesion too small for PCI pLAD occluded, ANAYA-LAD patent pLcx occluded, SVG-LCx patent LVEF 40% by LV gram, had LBBB at that time TTE 12/02/2016: Technically difficult study. 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 Adequately perfused and normotensive - Stop BB and AceI - Continue aspirin 81 mg PO daily and statin - Hold brillinta, last dose AM of 12/03/2016 - Continue imdur - Hold metolazone and diuretics - Receiving kayexylate now for hyperkalemia 5.7 - Transfer to ICU and start milrinone 0.125 mcg/kg/min, trend I/O and will recheck BMP later today - Will discussed with EP, Dr. [facility] and/or [facility] advanced HF team about further therapeutic options pending clinical course. Thank you for allowing me to participate in the cardiovascular care of this patient. Please do not hesitate to contact me with questions or concerns.
[2016-12-03] MEDS ORDERED: Milrinone* 100 ML ONE (10:58)
[2016-12-03 15:14] LABS: BUN/Creatinine Ratio 23.7 (8-20); EGFR African American 26.8 (>60); EGFR Non-African American 20.9 (>60); Potassium 5.3 mmol/L (3.5-5.0)
[2016-12-03] MEDS: Atorvastatin* 80 MG TAB PO SCH (17:14)
[2016-12-03] MEDS: Pramipexole TAB* 0.5 MG PO SCH (20:25)
[2016-12-03] MEDS: Gabapentin CAP(*) 300 MG PO SCH (20:25)
[2016-12-03] MEDS: Insulin GLARGINE(*) 1 UNITS UNIT SUBCUT SCH (21:36)
[2016-12-04] MEDS: traMADol TAB* 50 MG PO PRN ×3 (01:52→13:48)
[2016-12-04] MEDS: Acetaminophen TAB* 325 MG PO PRN ×2 (01:52→05:41)
[2016-12-04] MEDS: Heparin VIAL(*) 5000 UNITS/ML VIAL (FIVE THOUSAND) SUBCUT SCH ×3 (05:40→20:40)
[2016-12-04 07:20] LABS: Hematocrit 24 % (35-47); Hemoglobin 7.8 g/dl (12.0-16.0); Mean Corpuscular HGB Conc 33 g/dl (31-36); Mean Corpuscular Hemoglobin 31 pg (27-31); Mean Corpuscular Volume 93 fL (80-97); Mean Platelet Volume 9 um3 (7.4-10.4); Red Blood Count 2.54 10^6/ul (4.0-5.4); Red Cell Distribution Width 17 % (10.5-15); White Blood Count 9.9 10^3/ul (3.5-10.8)
[2016-12-04 07:33] LABS: BUN/Creatinine Ratio 26.7 (8-20); Calcium 8.7 mg/dL (8.6-10.3); EGFR African American 29.6 (>60); EGFR Non-African American 23.1 (>60); Potassium 4.8 mmol/L (3.5-5.0)
[2016-12-04] MEDS ORDERED: Furosemide IV* 10 MG/ML 2 ML VIAL (20 MG) IV SLOW PU ONE ×2 (08:13→16:49)
[2016-12-04] MEDS ORDERED: Digoxin IV* 0.5 MG/2 ML AMP (0.25 MG/ML) IV SLOW PU ONE ×2 (08:13→14:53)
[2016-12-04] MEDS: Insulin LISPRO* 1 UNITS UNIT SUBCUT SCH ×5 (08:46→20:37)
[2016-12-04] MEDS: Isosorbide Mononitrate ER TAB* 30 MG PO SCH ×2 (08:48→16:08)
[2016-12-04] MEDS: Magnesium Oxide TAB* 400 MG PO SCH (08:48)
[2016-12-04] MEDS: Ferrous Gluconate TAB* 324 MG TAB PO SCH (08:48)
[2016-12-04] MEDS: Tiotropium CAP.INH* CAP.INH/18 MCG INH SCH (08:48)
[2016-12-04] MEDS: Pregabalin CAP(*) 50 MG PO SCH ×3 (08:48→20:39)
--- NOTE | 2016-12-04 09:03 | PN ---
Subjective Date of Service: 12/04/16 Interval History: f/u low output CHF - Diuresed net negative 1400 cc on milrinone yesterday, Creatinine peaked - No arrhythmias, persistent LBBB on telemetry - No CP or change in breathing - Hgb 7.8 this AM, no active bleeding, BP has been lower Medications Active Medications: Acetaminophen (Tylenol Tab*) 650 mg PO Q4H PRN PRN Reason: FEVER/PAIN Last Admin: 12/04/16 05:41 Dose: 650 mg Albuterol/Ipratropium (Duoneb Neb.Roxy*) 1 neb INH TID PRN PRN Reason: SHORTNESS OF BREATH Atorvastatin Calcium (Lipitor*) 80 mg PO QPM [facility] Last Admin: 12/03/16 17:14 Dose: 80 mg Dextrose (D50w Syringe 50 Ml*) 12.5 gm IV PUSH .FOR FS < 60 - SS PRN PRN Reason: FS < 60 Ferrous Gluconate (Fergon Tab*) 324 mg PO DAILY [facility] Last Admin: 12/04/16 08:48 Dose: 324 mg Gabapentin (Neurontin Cap(*)) 1,800 mg PO BEDTIME [facility] Last Admin: 12/03/16 20:25 Dose: 1,800 mg Heparin Sodium (Porcine) (Heparin Vial(*)) 5,000 units SUBCUT Q8HR [facility] Last Admin: 12/04/16 05:40 Dose: 5,000 units Milrinone Lactate/Dextrose (Primacor*) 100 mls @ 0 mls/hr IVPB .Q24H [place] PRN Reason: As Directed Insulin Glargine (Lantus(*)) 30 units SUBCUT BEDTIME [facility] Last Admin: 12/03/16 21:36 Dose: 30 units Insulin Human Lispro (Humalog*) 6 units SUBCUT ACHS [facility] Last Admin: 12/04/16 08:46 Dose: Not Given Insulin Human Lispro (Humalog*) 0 units SUBCUT ACHS [facility] PRN Reason: Protocol Last Admin: 12/04/16 08:46 Dose: Not Given Isosorbide Mononitrate (Imdur Er Tab*) 30 mg PO DAILY [facility] Last Admin: 12/04/16 08:48 Dose: Not Given Magnesium Oxide (Magox 400 Tab*) 400 mg PO DAILY [facility] Last Admin: 12/04/16 08:48 Dose: 400 mg Non-Formulary Medication (Nicotine [Nicotrol Ns]) 10 mg PO BID PRN PRN Reason: URGES TO SMOKE Ondansetron HCl (Zofran Inj*) 4 mg IV Q4H PRN PRN Reason: NAUSEA Last Admin: 12/02/16 12:07 Dose: 4 mg Pramipexole Dihydrochloride (Mirapex Tab*) 3 mg PO BEDTIME [facility] Last Admin: 12/03/16 20:25 Dose: 3 mg Pregabalin (Lyrica Cap(*)) 50 mg PO TID [place] Last Admin: 12/04/16 08:48 Dose: 50 mg Tiotropium [place] (Spiriva Cap.Inh*) 1 cap INH DAILY [facility] Last Admin: 12/04/16 08:48 Dose: 1 cap.inh Tramadol HCl (Ultram*) 50 mg PO BEDTIME PRN PRN Reason: PAIN Last Admin: 12/04/16 01:52 Dose: 50 mg Tramadol HCl (Ultram*) 100 mg PO Q6H PRN PRN Reason: PAIN Last Admin: 12/04/16 05:41 Dose: 100 mg Objective Vital Signs: Temp Pulse Resp BP Pulse Ox 97.3 F 71 11 88/52 99 12/04/16 06:00 12/04/16 08:47 12/04/16 06:00 12/04/16 05:34 12/04/16 06:00 Oxygen Devices in Use Now: None Appearance: chronically ill appearing but not distressed, pleasant Ears/Nose/Mouth/Throat: Clear Oropharnyx Neck: - - + JVD but limited evaluation by endocarterectomy scars Respiratory: Symmetrical Chest Expansion and Respiratory Effort, - - mild R>L crackles Cardiovascular: - - RRR, distant, sternotomy scar and device site intact, no more than 2/6 murmur Abdominal: - - soft, mild distended, non-tender Extremities: - - L foot s/p surgical changes, 1+ edema, adequately perfused Skin: No Nodules or Sclerosis Neurological: Alert and Oriented x 3 Laboratory Results: 12/04/16 06:45 12/04/16 06:45 INR (Anticoag Therapy) 0.88 (0.89-1.11) L 12/01/16 16:23 APTT 34.0 seconds (26.0-36.3) 12/01/16 16:23 Total Bilirubin 0.50 mg/dL (0.2-1.0) 12/01/16 16:23 AST 17 U/L (13-39) 12/01/16 16:23 ALT 10 U/L (7-52) 12/01/16 16:23 Alkaline Phosphatase 135 U/L (34-104) H 12/01/16 16:23 CK-MB (CK-2) 7.6 ng/mL (0.6-6.3) H 12/01/16 16:23 B-Natriuretic Peptide 489 pg/mL (-100) H 12/01/16 16:23 Total Protein 6.9 g/dL (6.4-8.9) 12/01/16 16:23 Albumin 3.3 g/dL (3.2-5.2) 12/01/16 16:23 Globulin 3.6 g/dL (2-4) 12/01/16 16:23 Albumin/Globulin Ratio 0.9 (1-3) L 12/01/16 16:23 TSH 1.31 mcIU/mL (0.34-5.60) 12/01/16 16:23 Diagnostic Imaging: Cath 03/2016: pRCA occluded, SVG-RCA patent, PDA stent patent, 80% small caliber RPL lesion too small for PCI pLAD occluded, ANAYA-LAD patent pLcx occluded, SVG-LCx patent LVEF 40% by LV gram, had LBBB at that time TTE 12/02/2016: Technically difficult study. LVEF severely reduced, restrictive filling pattern, moderate TR/MR EKG Data: EKG this admission NSR, LBBB, QRS > 120 Assessment/Plan Michelle Galarza is a 56 year old woman with a history of IDDM (she states longstanding type 1), tobacco use, anemia, ICM/systolic HF, ICD, LBBB had failed LV lead placement at [facility] with consideration epicardial lead , recent CHF admission, history of diabetic foot ulcers s/p multiple L foot amputation, CVA, carotid artery surgery, high grade left subclavian stenosis admitted with low output CHF with [facility] and little UOP with diuretics now improving on inotropes. BP has been low normal and hemoglobin < 8. Has had 17 pound weight gain since 07/2016 - Continue milrinone 0.125 mcg/kg/min - Continue statin - Transfuse 2 units pRBC with IV lasix between (ordered) - Given 0.25 mg IV digoxin x 1 now (ordered), could consider low dose 0.125 every other day to help prevent CHF re-admissions pending clinical course and final creatinine - Hold other CHF medications - Brillinta held since AM of 12/03/2016 - I discussed with Dr. Joe [facility]. Plan will be to optimize CHF here, discharge patient and he will arrange a surgically placed epicardial LV lead as an outpatient. Do not restart brillinta at discharge in preparation for this - Aspirin currently held for ? port placement because of chronic IV access issues - Continue DVT prophylaxis - D/w Dr. Mckinley Thank you for allowing me to participate in the cardiovascular care of this patient. Please do not hesitate to contact me with questions or concerns.
[2016-12-04 10:52] LABS: Magnesium 2.5 mg/dL (1.9-2.7)
[2016-12-04] MEDS: Milrinone* 100 ML IVPB SCH (10:57)
[2016-12-04 11:55] LABS: Ferritin 72.5 ng/mL (11-307)
--- NOTE | 2016-12-04 12:38 | PN ---
Subjective Date of Service: 12/04/16 Interval History: Pt is feeling ok. She denies any pain. No lightheadedness. She does still feel SOB and she states she can not lie flat due to SOB. Objective Active Medications: Acetaminophen (Tylenol Tab*) 650 mg PO Q4H PRN PRN Reason: FEVER/PAIN Last Admin: 12/04/16 05:41 Dose: 650 mg Albuterol/Ipratropium (Duoneb Neb.Roxy*) 1 neb INH TID PRN PRN Reason: SHORTNESS OF BREATH Atorvastatin Calcium (Lipitor*) 80 mg PO QPM [facility] Last Admin: 12/03/16 17:14 Dose: 80 mg Dextrose (D50w Syringe 50 Ml*) 12.5 gm IV PUSH .FOR FS < 60 - SS PRN PRN Reason: FS < 60 Ferrous Gluconate (Fergon Tab*) 324 mg PO DAILY [facility] Last Admin: 12/04/16 08:48 Dose: 324 mg Gabapentin (Neurontin Cap(*)) 1,800 mg PO BEDTIME [facility] Last Admin: 12/03/16 20:25 Dose: 1,800 mg Heparin Sodium (Porcine) (Heparin Vial(*)) 5,000 units SUBCUT Q8HR [facility] Last Admin: 12/04/16 05:40 Dose: 5,000 units Heparin Sodium (Porcine) (Heparin Flush Picc/Ml/Cvc(*)) 0 ml IV FLUSH 0600, 1800 [facility] PRN Reason: Protocol Milrinone Lactate/Dextrose (Primacor*) 100 mls @ 0 mls/hr IVPB .Q24H [place] PRN Reason: As Directed Last Admin: 12/04/16 10:57 Dose: 2.9 mls/hr Insulin Glargine (Lantus(*)) 30 units SUBCUT BEDTIME [facility] Last Admin: 12/03/16 21:36 Dose: 30 units Insulin Human Lispro (Humalog*) 0 units SUBCUT ACHS [facility] PRN Reason: Protocol Last Admin: 12/04/16 08:46 Dose: Not Given Isosorbide Mononitrate (Imdur Er Tab*) 30 mg PO DAILY [facility] Last Admin: 12/04/16 08:48 Dose: Not Given Magnesium Oxide (Magox 400 Tab*) 400 mg PO DAILY [facility] Last Admin: 12/04/16 08:48 Dose: 400 mg Non-Formulary Medication (Nicotine [Nicotrol Ns]) 10 mg PO BID PRN PRN Reason: URGES TO SMOKE Ondansetron HCl (Zofran Inj*) 4 mg IV Q4H PRN PRN Reason: NAUSEA Last Admin: 12/02/16 12:07 Dose: 4 mg Pramipexole Dihydrochloride (Mirapex Tab*) 3 mg PO BEDTIME [facility] Last Admin: 12/03/16 20:25 Dose: 3 mg Pregabalin (Lyrica Cap(*)) 50 mg PO TID [facility] Last Admin: 12/04/16 08:48 Dose: 50 mg Tiotropium [place] (Spiriva Cap.Inh*) 1 cap INH DAILY [facility] Last Admin: 12/04/16 08:48 Dose: 1 cap.inh Tramadol HCl (Ultram*) 50 mg PO BEDTIME PRN PRN Reason: PAIN Last Admin: 12/04/16 01:52 Dose: 50 mg Tramadol HCl (Ultram*) 100 mg PO Q6H PRN PRN Reason: PAIN Last Admin: 12/04/16 05:41 Dose: 100 mg Vital Signs 12/03/16 12/03/16 12/03/16 12:42 12:45 13:00 Temperature 98.3 F 99.1 F 99.0 F Pulse Rate 77 77 Respiratory 18 20 Rate Blood Pressure 152/75 149/74 (mmHg) O2 Sat by Pulse 100 99 Oximetry 12/03/16 12/03/16 12/03/16 13:15 13:30 13:45 Temperature 98.9 F 98.9 F 99.0 F Pulse Rate 81 80 80 Respiratory 19 20 20 Rate Blood Pressure 145/78 138/80 129/68 (mmHg) O2 Sat by Pulse 99 100 96 Oximetry 12/03/16 12/03/16 12/03/16 14:00 14:15 14:30 Temperature 98.9 F 98.8 F 98.8 F Pulse Rate 80 80 77 Respiratory 19 19 19 Rate Blood Pressure 138/65 132/60 93/43 (mmHg) O2 Sat by Pulse 95 95 93 Oximetry 12/03/16 12/03/16 12/03/16 14:45 15:00 15:30 Temperature 98.6 F 98.6 F 98.8 F Pulse Rate 80 80 81 Respiratory 15 16 15 Rate Blood Pressure 134/63 148/75 137/70 (mmHg) O2 Sat by Pulse 99 99 99 Oximetry 12/03/16 12/03/16 12/03/16 15:45 16:00 16:15 Temperature 98.8 F 98.8 F 98.7 F Pulse Rate 81 81 81 Respiratory 19 16 20 Rate Blood Pressure 132/59 120/59 126/69 (mmHg) O2 Sat by Pulse 97 98 99 Oximetry 12/03/16 12/03/16 12/03/16 16:30 16:45 17:00 Temperature 98.6 F 98.6 F 98.7 F Pulse Rate Respiratory 20 18 21 Rate Blood Pressure 123/79 102/76 123/66 (mmHg) O2 Sat by Pulse 96 99 98 Oximetry 12/03/16 12/03/16 12/03/16 17:15 17:30 18:00 Temperature 98.7 F 98.8 F 98.8 F Pulse Rate Respiratory 19 18 20 Rate Blood Pressure 131/76 126/68 130/67 (mmHg) O2 Sat by Pulse 99 100 97 Oximetry 12/03/16 12/03/16 12/03/16 18:30 19:00 19:30 Temperature 98.9 F 99.1 F 99.2 F Pulse Rate 85 Respiratory 18 19 19 Rate Blood Pressure 142/75 120/63 (mmHg) O2 Sat by Pulse 99 96 94 Oximetry 12/03/16 12/03/16 12/03/16 19:35 19:39 19:58 Temperature 99.2 F 99.2 F 99.1 F Pulse Rate 86 Respiratory 19 20 16 Rate Blood Pressure 88/52 85/44 138/70 (mmHg) O2 Sat by Pulse 94 95 99 Oximetry 12/03/16 12/03/16 12/03/16 20:00 20:30 21:00 Temperature 99.1 F 99.1 F 99.0 F Pulse Rate Respiratory 20 18 20 Rate Blood Pressure 137/61 156/111 118/60 (mmHg) O2 Sat by Pulse 98 99 95 Oximetry 12/03/16 12/03/16 12/03/16 21:30 22:00 22:30 Temperature 97.9 F 98.9 F 98.7 F Pulse Rate Respiratory 20 20 20 Rate Blood Pressure 97/55 104/48 92/55 (mmHg) O2 Sat by Pulse 95 95 96 Oximetry 12/03/16 12/03/1617 23:00 23:17 23:30 Temperature 98.7 F 98.7 F 98.6 F Pulse Rate Respiratory 19 19 18 Rate Blood Pressure 107/49 104/46 (mmHg) O2 Sat by Pulse 96 97 96 Oximetry 12/04/16 12/04/16 12/04/16 00:00 00:01 00:30 Temperature 98.3 F 98.3 F 98.2 F Pulse Rate 77 Respiratory 19 19 20 Rate Blood Pressure 95/42 93/46 (mmHg) O2 Sat by Pulse 96 95 96 Oximetry 12/04/16 12/04/16 12/04/16 01:00 01:02 01:30 Temperature 98.0 F 98.0 F 96.8 F Pulse Rate 77 77 Respiratory 17 18 21 Rate Blood Pressure 74/48 100/52 117/50 (mmHg) O2 Sat by Pulse 97 97 100 Oximetry 12/04/16 12/04/16 12/04/16 02:00 02:30 03:00 Temperature 98.1 F 98.2 F 98.0 F Pulse Rate 77 Respiratory 14 17 17 Rate Blood Pressure 141/68 121/59 99/35 (mmHg) O2 Sat by Pulse 100 99 95 Oximetry 12/04/16 12/04/16 12/04/16 03:22 03:26 03:27 Temperature 97.9 F 97.9 F 97.9 F Pulse Rate Respiratory 17 17 14 Rate Blood Pressure 87/40 87/45 88/52 (mmHg) O2 Sat by Pulse 94 97 97 Oximetry 12/04/16 12/04/16 12/04/16 03:30 03:33 03:35 Temperature 97.8 F 97.7 F 97.8 F Pulse Rate 76 75 75 Respiratory 14 15 15 Rate Blood Pressure 88/51 86/47 85/54 (mmHg) O2 Sat by Pulse 97 97 96 Oximetry 12/04/16 12/04/16 12/04/16 03:37 04:00 04:03 Temperature 97.9 F 97.9 F 97.8 F Pulse Rate 76 74 74 Respiratory 16 17 19 Rate Blood Pressure 88/61 81/46 (mmHg) O2 Sat by Pulse 97 95 95 Oximetry 12/04/16 12/04/16 12/04/16 04:05 04:30 05:00 Temperature 97.8 F 97.7 F 97.7 F Pulse Rate 75 Respiratory 14 14 15 Rate Blood Pressure 82/41 95/53 95/53 (mmHg) O2 Sat by Pulse 98 98 99 Oximetry 12/04/16 12/04/16 12/04/16 05:31 05:32 05:34 Temperature 97.5 F 97.5 F 97.5 F Pulse Rate 73 Respiratory 17 16 16 Rate Blood Pressure 87/46 88/50 88/52 (mmHg) O2 Sat by Pulse 96 97 96 Oximetry 12/04/16 12/04/16 12/04/16 05:43 06:00 06:30 Temperature 97.3 F Pulse Rate 73 Respiratory 19 13 Rate Blood Pressure 94/52 (mmHg) O2 Sat by Pulse 99 Oximetry 12/04/16 12/04/16 12/04/16 07:00 07:50 08:00 Temperature 97.5 F 97.3 F 97.2 F Pulse Rate 72 67 68 Respiratory 15 17 16 Rate Blood Pressure 87/49 89/54 (mmHg) O2 Sat by Pulse 98 95 96 Oximetry 12/04/16 12/04/16 12/04/16 08:06 08:37 08:47 Temperature 97.2 F 97.2 F Pulse Rate 69 69 71 Respiratory 17 17 Rate Blood Pressure 102/57 104/54 (mmHg) O2 Sat by Pulse 96 99 Oximetry 12/04/16 12/04/16 12/04/16 09:00 09:30 10:00 Temperature 97.3 F 97.4 F 97.3 F Pulse Rate 71 70 70 Respiratory 15 14 17 Rate Blood Pressure 110/60 98/53 91/55 (mmHg) O2 Sat by Pulse 100 99 99 Oximetry 12/04/16 12/04/16 12/04/16 10:30 11:00 11:30 Temperature 97.2 F 97.3 F 97.4 F Pulse Rate 70 73 72 Respiratory 14 16 14 Rate Blood Pressure 91/52 96/53 107/61 (mmHg) O2 Sat by Pulse 99 98 100 Oximetry 12/04/16 12/04/16 12:00 12:20 Temperature 97.5 F 97.9 F Pulse Rate 72 Respiratory 15 Rate Blood Pressure 107/55 (mmHg) O2 Sat by Pulse 95 Oximetry Oxygen Devices in Use Now: Nasal Cannula - 2L-95% Appearance: Middle aged female sitting up in bed, NAD Eyes: No Scleral Icterus Ears/Nose/Mouth/Throat: Mucous Membranes Moist Respiratory: Symmetrical Chest Expansion and Respiratory Effort, - - few bibasilar crackles Cardiovascular: NL Sounds; No Murmurs; No JVD, RRR, - - 1+ pitting edema to b/l LE Abdominal: - - BS+ soft, NT, mildly distended Extremities: No Clubbing, Cyanosis Skin: No Rash or Ulcers, No Nodules or Sclerosis Neurological: Alert and Oriented x 3 Result Diagrams: 12/04/16 06:45 12/04/16 06:45 Assess/Plan/Problems-Billing Ms. Galarza is 56 yo female with PMHx significant for systolic and diastolic CHF , Type II DM, stage III CKD, PVD, COPD, HTN, HLD, CAD and left subclavian stenosis who presented to the emergency room with complaints of worsening shortness of breath and was admitted for acute decompensated systolic and diastolic CHF. - Patient Problems (1) Acute on chronic systolic (congestive) heart failure Current Visit: Yes Status: Acute Code(s): I50.23 - ACUTE ON CHRONIC SYSTOLIC (CONGESTIVE) HEART FAILURE SNOMED Code(s): 239162408 Comment: The patient was seen by Dr. Pepper who started milrinone and the patient had a fair response yesterday. Her UOP has tapered off some today-? due to need of lasix vs hypotension. Dr. Pepper is transfusing 2 units PRBC to see if this augments her BP and will give lasix between units. Will need LV wire placed but likely as outpatient. (2) LELIA (acute kidney injury) Current Visit: Yes Status: Acute Code(s): N17.9 - ACUTE KIDNEY FAILURE, UNSPECIFIED SNOMED Code(s): 89358387 Comment: Creatinine has trended down slightly. Will continue to monitor her renal function in the setting of diuresis. (3) Hyperkalemia Current Visit: Yes Status: Acute Code(s): E87.5 - HYPERKALEMIA SNOMED Code (s): 63647512 Comment: Improved today. Continue to monitor. (4) Uncontrolled type II diabetes mellitus Current Visit: Yes Status: Acute Code(s): E11.65 - TYPE 2 DIABETES MELLITUS WITH HYPERGLYCEMIA SNOMED Code(s): 77401706 Comment: Last A1c read 11/27/16 is improved from previous done 07/2016. Continue lantus 30 units SQ daily and lispro sliding scale-I have stopped the standing lispro for now but if her sugars start to climb this should be added back. Sugars are under fair control this hospitalization so far. (5) Anemia Current Visit: Yes Status: Acute Code(s): D64.9 - ANEMIA, UNSPECIFIED SNOMED Code(s): 561361790 Comment: H/H worse again today. Will need to look for signs of bleeding but I suspect her anemia is of chronic disease. She is going to get 2 units PRBC today. (6) CAD (coronary artery disease) Current Visit: Yes Status: Chronic Code(s): I25.10 - ATHSCL HEART DISEASE OF [place] CORONARY ARTERY W/O ANG PCTRS SNOMED Code(s): 07467346 Comment: No complaints of chest pain. Her echo shows an EF of 30-35%. Continue lipitor and imdur. ASA and brilinta on hold for power port insertion (7) Peripheral vascular disease Current Visit: Yes Status: Acute Code(s): I73.9 - PERIPHERAL VASCULAR DISEASE, UNSPECIFIED SNOMED Code(s): 786444743 Comment: Pt had stenting to the L LE. She has been on ASA and brilinta. She has been scheduled for a powerport placement on 12/08/16 and she needs to be off both ASA and brilinta for the procedure-they are both held currently but will discuss with IR about being on ASA alone. (8) HTN (hypertension) Current Visit: Yes Status: Chronic Onset Date: 06/23/14 Code(s): I10 - ESSENTIAL (PRIMARY) HYPERTENSION SNOMED Code(s): 12612238 Comment: BP is soft likely secondary to anemia and milrinone. All meds have been held or she is not receiving due to low BP. (9) COPD (chronic obstructive pulmonary disease) Current Visit: Yes Status: Chronic Code(s): J44.9 - CHRONIC OBSTRUCTIVE PULMONARY DISEASE, UNSPECIFIED SNOMED Code(s): 70947188 Comment: No signs of exacerbation at this time. Continue spiriva and dulera. (10) Tobacco abuse Current Visit: Yes Status: Acute Code(s): Z72.0 - TOBACCO USE SNOMED Code( s): 249289132 Comment: Encourage smoking cessation. (11) DVT prophylaxis Current Visit: Yes Status: Acute Code(s): VZU1225 - SNOMED Code(s): 822073339 Comment: SQ heparin (12) Full code status Current Visit: Yes Status: Acute Code(s): Z78.9 - OTHER SPECIFIED HEALTH STATUS SNOMED Code(s): 577564469 Status and Disposition: .
[2016-12-04] MEDS ORDERED: Furosemide IV* 10 MG/ML VIAL (40 MG) IV SLOW PU ONE (14:53)
[2016-12-04] MEDS: Ondansetron INJ* 2 MG/ML VIAL IV PRN (16:08)
[2016-12-04] MEDS: Atorvastatin* 80 MG TAB PO SCH (17:31)
[2016-12-04] MEDS: Gabapentin CAP(*) 300 MG PO SCH (20:38)
[2016-12-04] MEDS: Insulin GLARGINE(*) 1 UNITS UNIT SUBCUT SCH (20:39)
[2016-12-04] MEDS: Pramipexole TAB* 0.5 MG PO SCH (20:49)
[2016-12-05] MEDS: traMADol TAB* 50 MG PO PRN ×3 (03:38→21:36)
[2016-12-05] MEDS: Heparin VIAL(*) 5000 UNITS/ML VIAL (FIVE THOUSAND) SUBCUT SCH ×3 (05:50→21:48)
[2016-12-05 06:58] LABS: BUN/Creatinine Ratio 27.3 (8-20); Calcium 9.6 mg/dL (8.6-10.3); Magnesium 2.4 mg/dL (1.9-2.7); Potassium 4.9 mmol/L (3.5-5.0)
[2016-12-05 07:37] LABS: Hematocrit 33 % (35-47); Hemoglobin 10.7 g/dl (12.0-16.0)
[2016-12-05] MEDS: Insulin LISPRO* 1 UNITS UNIT SUBCUT SCH ×4 (07:39→21:43)
[2016-12-05] MEDS: Tiotropium CAP.INH* CAP.INH/18 MCG INH SCH (07:49)
[2016-12-05] MEDS: Ferrous Gluconate TAB* 324 MG TAB PO SCH (08:08)
[2016-12-05] MEDS: Isosorbide Mononitrate ER TAB* 30 MG PO SCH (08:08)
[2016-12-05] MEDS: Pregabalin CAP(*) 50 MG PO SCH ×3 (08:08→21:36)
[2016-12-05] MEDS: Magnesium Oxide TAB* 400 MG PO SCH (08:09)
--- NOTE | 2016-12-05 09:50 | PN ---
Subjective Date of Service: 12/05/16 - cc: sob Interval History: The patient's breathing is better, she slept 4 hours (HOB 60 degrees). Leg edema is improved but leg pain persists. Medications Active Medications: Acetaminophen (Tylenol Tab*) 650 mg PO Q4H PRN PRN Reason: FEVER/PAIN Last Admin: 12/04/16 05:41 Dose: 650 mg Albuterol/Ipratropium (Duoneb Neb.Roxy*) 1 neb INH TID PRN PRN Reason: SHORTNESS OF BREATH Atorvastatin Calcium (Lipitor*) 80 mg PO QPM [facility] Last Admin: 12/04/16 17:31 Dose: 80 mg Dextrose (D50w Syringe 50 Ml*) 12.5 gm IV PUSH .FOR FS < 60 - SS PRN PRN Reason: FS < 60 Ferrous Gluconate (Fergon Tab*) 324 mg PO DAILY [facility] Last Admin: 12/05/16 08:08 Dose: 324 mg Gabapentin (Neurontin Cap(*)) 1,800 mg PO BEDTIME [facility] Last Admin: 12/04/16 20:38 Dose: 1,800 mg Heparin Sodium (Porcine) (Heparin Vial(*)) 5,000 units SUBCUT Q8HR [facility] Last Admin: 12/05/16 05:50 Dose: 5,000 units Heparin Sodium (Porcine) (Heparin Flush Picc/Ml/Cvc(*)) 0 ml IV FLUSH 0600, 1800 [facility] PRN Reason: Protocol Last Admin: 12/05/16 05:51 Dose: 1 ml Milrinone Lactate/Dextrose (Primacor*) 100 mls @ 0 mls/hr IVPB .Q24H [facility] PRN Reason: As Directed Last Admin: 12/04/16 10:57 Dose: 2.9 mls/hr Insulin Glargine (Lantus(*)) 30 units SUBCUT BEDTIME [facility] Last Admin: 12/04/16 20:39 Dose: 30 units Insulin Human Lispro (Humalog*) 0 units SUBCUT ACHS [facility] PRN Reason: Protocol Last Admin: 12/05/16 07:39 Dose: Not Given Isosorbide Mononitrate (Imdur Er Tab*) 30 mg PO DAILY [facility] Last Admin: 12/05/16 08:08 Dose: 30 mg Magnesium Oxide (Magox 400 Tab*) 400 mg PO DAILY [facility] Last Admin: 12/05/16 08:09 Dose: 400 mg Non-Formulary Medication (Nicotine [Nicotrol Ns]) 10 mg PO BID PRN PRN Reason: URGES TO SMOKE Ondansetron HCl (Zofran Inj*) 4 mg IV Q4H PRN PRN Reason: NAUSEA Last Admin: 12/04/16 16:08 Dose: 4 mg Pramipexole Dihydrochloride (Mirapex Tab*) 3 mg PO BEDTIME [facility] Last Admin: 12/04/16 20:49 Dose: 3 mg Pregabalin (Lyrica Cap(*)) 50 mg PO TID [facility] Last Admin: 12/05/16 08:08 Dose: 50 mg Tiotropium [place] (Spiriva Cap.Inh*) 1 cap INH DAILY [facility] Last Admin: 12/05/16 07:49 Dose: 1 cap.inh Tramadol HCl (Ultram*) 50 mg PO BEDTIME PRN PRN Reason: PAIN Last Admin: 12/04/16 01:52 Dose: 50 mg Tramadol HCl (Ultram*) 100 mg PO Q6H PRN PRN Reason: PAIN Last Admin: 12/05/16 03:38 Dose: 100 mg Objective Vital Signs: Temp Pulse Resp BP Pulse Ox 98.2 F 79 15 135/119 98 12/05/16 06:00 12/05/16 06:00 12/05/16 06:00 12/05/16 06:00 12/05/16 06:00 Oxygen Devices in Use Now: Nasal Cannula - 2L-95% Appearance: chronically ill appearing, lying at 50 degrees, O2 on, not distressed, able to talk comfortabley. Eyes: PERRLA Ears/Nose/Mouth/Throat: Clear Oropharnyx Neck: Trachea Midline, No Thyroid Enlargement, Masses, - - + JVD but limited evaluation by endocarterectomy scars Respiratory: Symmetrical Chest Expansion and Respiratory Effort - diffuse wheezing., - - mild R>L crackles Cardiovascular: RRR, - - RRR, distant, sternotomy scar and device site intact, trace to soft murmer. Abdominal: - - soft, mildly distended, non-tender Extremities: - - L foot s/p surgical changes, trace edema, warm. Skin: No Nodules or Sclerosis Neurological: Alert and Oriented x 3 Lines/Tubes/Other Access: Clean, Dry and Intact PICC Line Laboratory Results: 12/05/16 07:26 12/05/16 05:55 INR (Anticoag Therapy) 0.88 (0.89-1.11) L 12/01/16 16:23 APTT 34.0 seconds (26.0-36.3) 12/01/16 16:23 Total Bilirubin 0.50 mg/dL (0.2-1.0) 12/01/16 16:23 AST 17 U/L (13-39) 12/01/16 16:23 ALT 10 U/L (7-52) 12/01/16 16:23 Alkaline Phosphatase 135 U/L (34-104) H 12/01/16 16:23 CK-MB (CK-2) 7.6 ng/mL (0.6-6.3) H 12/01/16 16:23 B-Natriuretic Peptide 489 pg/mL (-100) H 12/01/16 16:23 Total Protein 6.9 g/dL (6.4-8.9) 12/01/16 16:23 Albumin 3.3 g/dL (3.2-5.2) 12/01/16 16:23 Globulin 3.6 g/dL (2-4) 12/01/16 16:23 Albumin/Globulin Ratio 0.9 (1-3) L 12/01/16 16:23 TSH 1.31 mcIU/mL (0.34-5.60) 12/01/16 16:23 Diagnostic Imaging: Cath 03/2016: pRCA occluded, SVG-RCA patent, PDA stent patent, 80% small caliber RPL lesion too small for PCI pLAD occluded, ANAYA-LAD patent pLcx occluded, SVG-LCx patent LVEF 40% by LV gram, had LBBB at that time TTE 12/02/2016: Technically difficult study. LVEF severely reduced, restrictive filling pattern, moderate TR/MR EKG Data: Monitor and ECG: NSR, LBBB, QRS > 120 Assessment/Plan Michelle Galarza is a 56 year old woman with a history of IDDM (she states longstanding type 1), tobacco use, anemia, ICM/systolic HF, ICD, LBBB had failed LV lead placement at [facility] with consideration epicardial lead , recent CHF admission, history of diabetic foot ulcers s/p multiple L foot amputation, CVA, carotid artery surgery, high grade left subclavian stenosis admitted with low output CHF with WRF and little UOP with diuretics now improving on inotropes. BP has been low normal and hemoglobin < 8. Has had 17 pound weight gain since 07/2016/ Good response to milranone: 3 liters off since admission (and documentation of 10 lb weight loss-?verity). Improvement in BUN and Cr, s/p 1 unit PRBC with improved Hct. Points of Discussion: CHF: Continue Milranone. I recommend IV lasix, 40 BID if BP tolerates 2nd dose and oral aldactone 25 mg daily. LBBB and CM: Continue with plans for epicardial [facility] [employer] at [facility] post diuresis. COPD: Per pt she will not smoke again, smokling cessation discussed with the patient personally. Continue O2 and inhalers, spiriva.
[2016-12-05] MEDS ORDERED: Furosemide IV* 10 MG/ML 10 ML VIAL (100 MG) IV ONE (10:08)
--- NOTE | 2016-12-05 10:16 | PN ---
Subjective Date of Service: 12/05/16 Interval History: Patient reports breathing improved. Still has orthopnea, slept sitting up in bed. Edema in legs improved, still has fluid in abdomen. Feels dizzy/lightheaded, no true vertigo. Has had T1DM for >20 years. Reports scheduled for [place] with Dr. Lucas hernandez, due to poor access. Currently has PICC. Family History: Unchanged from Admission Social History: Unchanged from Admission Past Medical History: Unchanged from Admission Objective Active Medications: Acetaminophen (Tylenol Tab*) 650 mg PO Q4H PRN PRN Reason: FEVER/PAIN Last Admin: 12/04/16 05:41 Dose: 650 mg Albuterol/Ipratropium (Duoneb Neb.Roxy*) 1 neb INH TID PRN PRN Reason: SHORTNESS OF BREATH Atorvastatin Calcium (Lipitor*) 80 mg PO QPM [facility] Last Admin: 12/04/16 17:31 Dose: 80 mg Dextrose (D50w Syringe 50 Ml*) 12.5 gm IV PUSH .FOR FS < 60 - SS PRN PRN Reason: FS < 60 Ferrous Gluconate (Fergon Tab*) 324 mg PO DAILY [facility] Last Admin: 12/05/16 08:08 Dose: 324 mg Gabapentin (Neurontin Cap(*)) 1,800 mg PO BEDTIME [facility] Last Admin: 12/04/16 20:38 Dose: 1,800 mg Heparin Sodium (Porcine) (Heparin Vial(*)) 5,000 units SUBCUT Q8HR [facility] Last Admin: 12/05/16 05:50 Dose: 5,000 units Heparin Sodium (Porcine) (Heparin Flush Picc/Ml/Cvc(*)) 0 ml IV FLUSH 0600, 1800 [place] PRN Reason: Protocol Last Admin: 12/05/16 05:51 Dose: 1 ml Milrinone Lactate/Dextrose (Primacor*) 100 mls @ 0 mls/hr IVPB .Q24H [facility] PRN Reason: As Directed Last Admin: 12/04/16 10:57 Dose: 2.9 mls/hr Insulin Glargine (Lantus(*)) 30 units SUBCUT BEDTIME [facility] Last Admin: 12/04/16 20:39 Dose: 30 units Insulin Human Lispro (Humalog*) 0 units SUBCUT ACHS [facility] PRN Reason: Protocol Last Admin: 12/05/16 07:39 Dose: Not Given Isosorbide Mononitrate (Imdur Er Tab*) 30 mg PO DAILY [facility] Last Admin: 12/05/16 08:08 Dose: 30 mg Magnesium Oxide (Magox 400 Tab*) 400 mg PO DAILY [facility] Last Admin: 12/05/16 08:09 Dose: 400 mg Non-Formulary Medication (Nicotine [Nicotrol Ns]) 10 mg PO BID PRN PRN Reason: URGES TO SMOKE Ondansetron HCl (Zofran Inj*) 4 mg IV Q4H PRN PRN Reason: NAUSEA Last Admin: 12/04/16 16:08 Dose: 4 mg Pramipexole Dihydrochloride (Mirapex Tab*) 3 mg PO BEDTIME [facility] Last Admin: 12/04/16 20:49 Dose: 3 mg Pregabalin (Lyrica Cap(*)) 50 mg PO TID [facility] Last Admin: 12/05/16 08:08 Dose: 50 mg Tiotropium [place] (Spiriva Cap.Inh*) 1 cap INH DAILY [facility] Last Admin: 12/05/16 07:49 Dose: 1 cap.inh Tramadol HCl (Ultram*) 50 mg PO BEDTIME PRN PRN Reason: PAIN Last Admin: 12/04/16 01:52 Dose: 50 mg Tramadol HCl (Ultram*) 100 mg PO Q6H PRN PRN Reason: PAIN Last Admin: 12/05/16 03:38 Dose: 100 mg Vital Signs 12/04/16 12/04/16 12/04/16 10:30 11:00 11:30 Temperature 36.2 C 36.3 C 36.3 C Pulse Rate 70 73 72 Respiratory 14 16 14 Rate Blood Pressure 91/52 96/53 107/61 (mmHg) O2 Sat by Pulse 99 98 100 Oximetry 12/05/16 12/05/16 12/05/16 03:30 04:00 04:30 Temperature 36.8 C 36.9 C 36.8 C Pulse Rate 77 81 77 Respiratory 17 20 16 Rate Blood Pressure 133/73 138/79 129/71 (mmHg) O2 Sat by Pulse 97 97 97 Oximetry 12/05/16 12/05/16 12/05/16 05:00 05:30 06:00 Temperature 36.8 C 36.7 C 36.8 C Pulse Rate 77 76 79 Respiratory 16 17 15 Rate Blood Pressure 129/72 119/62 135/119 (mmHg) O2 Sat by Pulse 97 96 98 Oximetry Oxygen Devices in Use Now: Nasal Cannula - 2L-95% Eyes: No Scleral Icterus Ears/Nose/Mouth/Throat: Clear Oropharnyx Neck: Trachea Midline, - - JVD to 8 cm, and HJR(+) Respiratory: Symmetrical Chest Expansion and Respiratory Effort, Clear to Percussion, - - few wheezes at bases bilat Cardiovascular: NL Sounds; No Murmurs; No JVD, - - 1+ edema in thighs, shins Abdominal: NL Sounds; No Tenderness; No Distention Extremities: - - LT foot w/ partial amputation anterior and heel Skin: No Rash or Ulcers Neurological: Alert and Oriented x 3 Lines/Tubes/Other Access: Clean, Dry and Intact PICC Line Nutrition: Taking PO's Result Diagrams: 12/05/16 07:26 12/05/16 05:55 Additional Lab and Data: I/O reviewed, weight down 8 kg Microbiology and Other Data: Microbiology 12/04/16 18:25 Transfusion Reaction Gram Stain - Final Blood Bag Transfused 2 units PRBC Assess/Plan/Problems-Billing Ms. Galarza is 56 yo female with PMHx significant for systolic and diastolic CHF , Type II DM, stage III CKD, PVD, COPD, HTN, HLD, CAD and left subclavian stenosis who presented to the emergency room with complaints of worsening shortness of breath and was admitted for acute decompensated systolic and diastolic CHF. - Patient Problems (1) Acute on chronic systolic (congestive) heart failure Current Visit: Yes Status: Acute Priority: High Code(s): I50.23 - ACUTE ON CHRONIC SYSTOLIC (CONGESTIVE) HEART FAILURE SNOMED Code(s): 126268118 Comment: -Discussed case with Dr. Amado. Responding well to milrinone. Will continue for 1-2 more days -Has received 2 units PRBC, blood pressure improved -Candidate for epicardial lead for biV pacer in [place] in several days (2) Anemia Current Visit: Yes Status: Acute Priority: Medium Code(s): D64.9 - ANEMIA , UNSPECIFIED SNOMED Code(s): 826597063 Comment: Anemia appears due to CKD. Responded well to transfusion. (3) Type 1 diabetes mellitus Current Visit: Yes Status: Acute Priority: Medium Comment: Blood sugars in reasonable control. Continue Lantus and SSI. Status and Disposition: Will need to remain in ICU for continued milrinone drip.
[2016-12-05] MEDS: Milrinone* 100 ML IVPB SCH (14:43)
[2016-12-05] MEDS ORDERED: diPHENhydraMINE PO* 25 MG PO PRN (15:08)
[2016-12-05] MEDS: Atorvastatin* 80 MG TAB PO SCH (17:03)
[2016-12-05] MEDS: Gabapentin CAP(*) 300 MG PO SCH (21:35)
[2016-12-05] MEDS: Insulin GLARGINE(*) 1 UNITS UNIT SUBCUT SCH (21:38)
[2016-12-05] MEDS: Pramipexole TAB* 0.5 MG PO SCH (21:48)
[2016-12-06] MEDS: traMADol TAB* 50 MG PO PRN ×2 (04:36→10:21)
[2016-12-06 05:35] LABS: Hematocrit 33 % (35-47); Mean Corpuscular HGB Conc 33 g/dl (31-36); Mean Corpuscular Hemoglobin 30 pg (27-31); Mean Corpuscular Volume 90 fL (80-97); Mean Platelet Volume 9 um3 (7.4-10.4); Red Blood Count 3.69 10^6/ul (4.0-5.4); Red Cell Distribution Width 17 % (10.5-15); White Blood Count 10.7 10^3/ul (3.5-10.8)
[2016-12-06] MEDS: Heparin VIAL(*) 5000 UNITS/ML VIAL (FIVE THOUSAND) SUBCUT SCH ×3 (05:36→22:12)
[2016-12-06 05:47] LABS: BUN/Creatinine Ratio 24.9 (8-20); Calcium 9.8 mg/dL (8.6-10.3); EGFR African American 33.9 (>60); EGFR Non-African American 26.3 (>60); Potassium 4.7 mmol/L (3.5-5.0)
[2016-12-06] MEDS: Insulin LISPRO* 1 UNITS UNIT SUBCUT SCH ×4 (07:50→20:31)
[2016-12-06] MEDS: Isosorbide Mononitrate ER TAB* 30 MG PO SCH (08:20)
[2016-12-06] MEDS: Tiotropium CAP.INH* CAP.INH/18 MCG INH SCH (08:20)
[2016-12-06] MEDS: Ferrous Gluconate TAB* 324 MG TAB PO SCH (08:22)
[2016-12-06] MEDS: Magnesium Oxide TAB* 400 MG PO SCH (08:22)
[2016-12-06] MEDS: Pregabalin CAP(*) 50 MG PO SCH ×3 (08:23→20:31)
[2016-12-06] MEDS ORDERED: Furosemide IV* 10 MG/ML 10 ML VIAL (100 MG) IV SCH (10:00)
[2016-12-06] MEDS ORDERED: Docusate CAP* 100 MG PO PRN (10:04)
--- NOTE | 2016-12-06 10:13 | PN ---
Subjective Date of Service: 12/06/16 Interval History: Patient had rash on face last night, that has improved. Has mild dizziness, headache. Has not had BM in 2-3 days. Still has orthopnea, but no SOB at rest. Family History: Unchanged from Admission Social History: Unchanged from Admission Past Medical History: Unchanged from Admission Objective Active Medications: Acetaminophen (Tylenol Tab*) 650 mg PO Q4H PRN PRN Reason: FEVER/PAIN Last Admin: 12/04/16 05:41 Dose: 650 mg Albuterol/Ipratropium (Duoneb Neb.Roxy*) 1 neb INH TID PRN PRN Reason: SHORTNESS OF BREATH Atorvastatin Calcium (Lipitor*) 80 mg PO QPM [facility] Last Admin: 12/05/16 17:03 Dose: 80 mg Dextrose (D50w Syringe 50 Ml*) 12.5 gm IV PUSH .FOR FS < 60 - SS PRN PRN Reason: FS < 60 Diphenhydramine HCl (Benadryl Po*) 25 mg PO Q4H PRN PRN Reason: RASH Last Admin: 12/05/16 15:25 Dose: 25 mg Ferrous Gluconate (Fergon Tab*) 324 mg PO DAILY [facility] Last Admin: 12/06/16 08:22 Dose: 324 mg Gabapentin (Neurontin Cap(*)) 1,800 mg PO BEDTIME [place] Last Admin: 12/05/16 21:35 Dose: 1,800 mg Heparin Sodium (Porcine) (Heparin Vial(*)) 5,000 units SUBCUT Q8HR [place] Last Admin: 12/06/16 05:36 Dose: 5,000 units Heparin Sodium (Porcine) (Heparin Flush Picc/Ml/Cvc(*)) 0 ml IV FLUSH 0600, 1800 [place] PRN Reason: Protocol Last Admin: 12/06/16 05:39 Dose: 1 ml Milrinone Lactate/Dextrose (Primacor*) 100 mls @ 0 mls/hr IVPB .Q24H [place] PRN Reason: As Directed Last Admin: 12/05/16 14:43 Dose: 2.9 mls/hr Insulin Glargine (Lantus(*)) 30 units SUBCUT BEDTIME [place] Last Admin: 12/05/16 21:38 Dose: 30 units Insulin Human Lispro (Humalog*) 0 units SUBCUT ACHS [place] PRN Reason: Protocol Last Admin: 12/06/16 07:50 Dose: Not Given Isosorbide Mononitrate (Imdur Er Tab*) 30 mg PO DAILY [facility] Last Admin: 12/06/16 08:20 Dose: 30 mg Magnesium Oxide (Magox 400 Tab*) 400 mg PO DAILY [facility] Last Admin: 12/06/16 08:22 Dose: 400 mg Non-Formulary Medication (Nicotine [Nicotrol Ns]) 10 mg PO BID PRN PRN Reason: URGES TO SMOKE Ondansetron HCl (Zofran Inj*) 4 mg IV Q4H PRN PRN Reason: NAUSEA Last Admin: 12/04/16 16:08 Dose: 4 mg Pramipexole Dihydrochloride (Mirapex Tab*) 3 mg PO BEDTIME [facility] Last Admin: 12/05/16 21:48 Dose: 3 mg Pregabalin (Lyrica Cap(*)) 50 mg PO TID [facility] Last Admin: 12/06/16 08:23 Dose: 50 mg Tiotropium [place] (Spiriva Cap.Inh*) 1 cap INH DAILY [facility] Last Admin: 12/06/16 08:20 Dose: 1 cap.inh Tramadol HCl (Ultram*) 50 mg PO BEDTIME PRN PRN Reason: PAIN Last Admin: 12/05/16 21:36 Dose: 50 mg Tramadol HCl (Ultram*) 100 mg PO Q6H PRN PRN Reason: PAIN Last Admin: 12/06/16 04:36 Dose: 100 mg Vital Signs 12/05/16 12/05/16 12/05/16 10:30 11:00 11:30 Temperature 37.1 C 37.2 C 37.1 C Pulse Rate 81 82 82 Respiratory 17 12 15 Rate Blood Pressure 131/77 130/66 129/66 (mmHg) O2 Sat by Pulse 97 93 95 Oximetry 12/05/16 12/05/16 12/05/16 12:00 12:30 13:00 Temperature 37.3 C 37.4 C 37.4 C Pulse Rate 84 83 85 Respiratory 16 17 16 Rate Blood Pressure 124/78 122/69 120/68 (mmHg) O2 Sat by Pulse 96 95 94 Oximetry 12/05/16 12/05/16 12/05/16 13:30 14:00 14:30 Temperature 37.3 C 37.5 C 37.6 C Pulse Rate 82 81 81 Respiratory 19 19 14 Rate Blood Pressure 123/80 112/62 124/70 (mmHg) O2 Sat by Pulse 96 92 95 Oximetry 12/05/16 12/05/16 12/05/16 15:00 15:30 16:00 Temperature 37.7 C 37.7 C 37.7 C Pulse Rate 80 80 81 Respiratory 18 18 17 Rate Blood Pressure 113/67 108/64 103/58 (mmHg) O2 Sat by Pulse 95 93 94 Oximetry 12/05/16 12/05/16 12/05/16 16:27 16:36 17:00 Temperature 37.7 C 37.8 C 37.7 C Pulse Rate 85 83 Respiratory 15 19 15 Rate Blood Pressure 146/82 139/78 (mmHg) O2 Sat by Pulse 97 98 Oximetry 12/05/16 12/05/16 12/05/16 17:30 18:00 18:30 Temperature 37.6 C 37.6 C 37.6 C Pulse Rate 80 79 84 Respiratory 16 14 17 Rate Blood Pressure 142/75 123/67 140/73 (mmHg) O2 Sat by Pulse 97 95 98 Oximetry 12/05/16 12/05/16 12/05/16 19:00 19:30 20:00 Temperature 37.6 C 37.5 C 37.4 C Pulse Rate 81 81 82 Respiratory 19 19 19 Rate Blood Pressure 108/61 113/61 105/59 (mmHg) O2 Sat by Pulse 93 94 93 Oximetry 12/05/16 12/05/16 12/05/16 20:30 21:00 21:30 Temperature 37.4 C 37.3 C 37.3 C Pulse Rate 80 80 79 Respiratory 19 19 20 Rate Blood Pressure 104/57 115/62 90/57 (mmHg) O2 Sat by Pulse 93 94 94 Oximetry 12/05/16 12/05/16 12/05/16 22:00 22:30 23:00 Temperature 37.4 C 37.5 C 37.6 C Pulse Rate 82 82 90 Respiratory 15 12 18 Rate Blood Pressure 125/69 124/56 131/73 (mmHg) O2 Sat by Pulse 97 94 95 Oximetry 12/05/16 12/05/16 12/06/16 23:06 23:30 00:00 Temperature 37.6 C 37.6 C 37.6 C Pulse Rate 88 83 81 Respiratory 18 20 20 Rate Blood Pressure 105/58 (mmHg) O2 Sat by Pulse 95 93 94 Oximetry 12/06/16 12/06/16 12/06/16 00:01 00:30 01:00 Temperature 37.6 C 37.7 C 37.6 C Pulse Rate 81 80 81 Respiratory 20 21 20 Rate Blood Pressure 97/54 111/68 104/58 (mmHg) O2 Sat by Pulse 94 95 93 Oximetry 12/06/16 12/06/16 12/06/16 01:30 02:00 02:30 Temperature 37.6 C 37.5 C 37.4 C Pulse Rate 81 82 81 Respiratory 19 19 18 Rate Blood Pressure 98/57 113/63 108/56 (mmHg) O2 Sat by Pulse 93 95 95 Oximetry 12/06/16 12/06/16 12/06/16 03:00 03:30 04:00 Temperature 37.4 C 37.4 C 37.3 C Pulse Rate 80 81 82 Respiratory 18 18 18 Rate Blood Pressure 108/61 115/61 110/63 (mmHg) O2 Sat by Pulse 95 96 96 Oximetry 12/06/16 12/06/16 12/06/16 04:30 04:49 05:00 Temperature 37.5 C 37.4 C Pulse Rate 85 86 Respiratory 16 14 18 Rate Blood Pressure 122/66 110/71 (mmHg) O2 Sat by Pulse 94 96 Oximetry 12/06/16 12/06/16 12/06/16 05:37 05:57 06:00 Temperature 36.8 C 37.6 C Pulse Rate 81 81 Respiratory 18 14 20 Rate Blood Pressure 102/57 (mmHg) O2 Sat by Pulse 92 93 Oximetry 12/06/16 07:00 Temperature Pulse Rate Respiratory 18 Rate Blood Pressure (mmHg) O2 Sat by Pulse Oximetry Oxygen Devices in Use Now: Nasal Cannula - 2L-95% Eyes: No Scleral Icterus Ears/Nose/Mouth/Throat: Clear Oropharnyx Neck: No Thyroid Enlargement, Masses Respiratory: Symmetrical Chest Expansion and Respiratory Effort, Clear to Percussion, - - scattered wheezes, no rales Cardiovascular: NL Sounds; No Murmurs; No JVD, RRR Abdominal: NL Sounds; No Tenderness; No Distention Skin: - - faint flat blanching macular rash on face, scattered Neurological: Alert and Oriented x 3 Lines/Tubes/Other Access: Clean, Dry and Intact Peripheral IV Nutrition: Taking PO's Result Diagrams: 12/06/16 05:25 12/06/16 05:25 Additional Lab and Data: I/O reviewed, out 900ml Microbiology and Other Data: Transfused 2 units PRBC yesterday Assess/Plan/Problems-Billing Ms. Galarza is 56 yo female with acute decompensated systolic and diastolic CHF, improving on milrinone drip and IV lasix - Patient Problems (1) Acute on chronic systolic (congestive) heart failure Current Visit: Yes Status: Acute Priority: High Code(s): I50.23 - ACUTE ON CHRONIC SYSTOLIC (CONGESTIVE) HEART FAILURE SNOMED Code(s): 765000467 Comment: -Continued good response to milrinone and lasix. Will discuss again with Dr. Amado. Responding well to milrinone. Will discuss end point milrinone and transfer to telemetry -Creatinine up slightly, will continue IV lasix daily. -Candidate for epicardial lead for biV pacer in [place] in several days (2) Anemia Current Visit: Yes Status: Acute Priority: Medium Code(s): D64.9 - ANEMIA , UNSPECIFIED SNOMED Code(s): 319011856 Comment: Anemia appears due to CKD. Responded well to transfusion. (3) Type 1 diabetes mellitus Current Visit: Yes Status: Acute Priority: Medium Comment: Blood sugars in reasonable control. Continue Lantus and SSI. Status and Disposition: Will need to remain in ICU while on milrinone drip.
--- NOTE | 2016-12-06 10:55 | PN ---
Progress Note - Progress Note Note: Event note: Called back to see patient re 06/20 LT flank pain. Reports some increased SOB, and pain w/ deep inspiratin. O2sat 100% Has renal U/S 11/11, no kidney stones. Differential includes muscle spasm, neuritis, PE. On heparin SC for DVT prophylaxis. Will order DVT study and CXR. Pain control w/ morphine IV.
[2016-12-06] MEDS ORDERED: Morphine INJ* 2 MG/ML 1 ML SYRINGE ONE (11:02)
[2016-12-06] MEDS: Morphine INJ* 2 MG/ML 1 ML SYRINGE IV PRN ×3 (11:03→20:32)
--- NOTE | 2016-12-06 11:34 | RAD ---
INDICATION: Left-sided chest pain COMPARISON: December 01, 2016 TECHNIQUE: An AP portable view obtained at 1106 hours is submitted. FINDINGS: Bones/Soft Tissues: There are no acute bony findings. There is sternotomy. There is a left-sided cardiac pacemaker. There is prior cervical fusion Cardiomediastinal: The correct silhouette is top normal in size. The central pulmonary vessels and interstitium are prominent compatible with interstitial congestion. Lungs: Interstitial congestion is noted above. No focal consolidative changes.. Pleura: Scant fluid in the minor fissure. Suspect tiny bilateral effusions. Other: None IMPRESSION: MILD VASCULAR CONGESTION WITHOUT SIGNIFICANT INTERVAL CHANGE
--- NOTE | 2016-12-06 11:52 | PN ---
Subjective Date of Service: 12/06/16 - CC: L CP and SOB Interval History: Pleuritic L chest pain, new, very uncomfortable. Leg swelling has improved, but also leg pain is bothersome. Medications Active Medications: Acetaminophen (Tylenol Tab*) 650 mg PO Q4H PRN PRN Reason: FEVER/PAIN Last Admin: 12/04/16 05:41 Dose: 650 mg Albuterol/Ipratropium (Duoneb Neb.Roxy*) 1 neb INH TID PRN PRN Reason: SHORTNESS OF BREATH Atorvastatin Calcium (Lipitor*) 80 mg PO QPM [facility] Last Admin: 12/05/16 17:03 Dose: 80 mg Dextrose (D50w Syringe 50 Ml*) 12.5 gm IV PUSH .FOR FS < 60 - SS PRN PRN Reason: FS < 60 Diphenhydramine HCl (Benadryl Po*) 25 mg PO Q4H PRN PRN Reason: RASH Last Admin: 12/05/16 15:25 Dose: 25 mg Docusate Sodium (Colace Cap*) 100 mg PO BID PRN PRN Reason: CONSTIPATION Ferrous Gluconate (Fergon Tab*) 324 mg PO DAILY [facility] Last Admin: 12/06/16 08:22 Dose: 324 mg Furosemide (Lasix Iv*) 60 mg IV DAILY [facility] Last Admin: 12/06/16 10:21 Dose: 60 mg Gabapentin (Neurontin Cap(*)) 1,800 mg PO BEDTIME [facility] Last Admin: 12/05/16 21:35 Dose: 1,800 mg Heparin Sodium (Porcine) (Heparin Vial(*)) 5,000 units SUBCUT Q8HR [facility] Last Admin: 12/06/16 05:36 Dose: 5,000 units Heparin Sodium (Porcine) (Heparin Flush Picc/Ml/Cvc(*)) 0 ml IV FLUSH 0600, 1800 [place] PRN Reason: Protocol Last Admin: 12/06/16 05:39 Dose: 1 ml Milrinone Lactate/Dextrose (Primacor*) 100 mls @ 0 mls/hr IVPB .Q24H [place] PRN Reason: As Directed Last Admin: 12/05/16 14:43 Dose: 2.9 mls/hr Insulin Glargine (Lantus(*)) 30 units SUBCUT BEDTIME [facility] Last Admin: 12/05/16 21:38 Dose: 30 units Insulin Human Lispro (Humalog*) 0 units SUBCUT ACHS [facility] PRN Reason: Protocol Last Admin: 12/06/16 07:50 Dose: Not Given Isosorbide Mononitrate (Imdur Er Tab*) 30 mg PO DAILY [facility] Last Admin: 12/06/16 08:20 Dose: 30 mg Magnesium Oxide (Magox 400 Tab*) 400 mg PO DAILY [facility] Last Admin: 12/06/16 08:22 Dose: 400 mg Morphine Sulfate (Morphine Inj (Syringe)*) 2 mg IV Q2H PRN PRN Reason: PAIN Last Admin: 12/06/16 11:03 Dose: 2 mg Non-Formulary Medication (Nicotine [Nicotrol Ns]) 10 mg PO BID PRN PRN Reason: URGES TO SMOKE Ondansetron HCl (Zofran Inj*) 4 mg IV Q4H PRN PRN Reason: NAUSEA Last Admin: 12/04/16 16:08 Dose: 4 mg Pramipexole Dihydrochloride (Mirapex Tab*) 3 mg PO BEDTIME [facility] Last Admin: 12/05/16 21:48 Dose: 3 mg Pregabalin (Lyrica Cap(*)) 50 mg PO TID [facility] Last Admin: 12/06/16 08:23 Dose: 50 mg Senna (Senokot Tab*) 1 tab PO DAILY PRN PRN Reason: CONSTIPATION Tiotropium [place] (Spiriva Cap.Inh*) 1 cap INH DAILY [facility] Last Admin: 12/06/16 08:20 Dose: 1 cap.inh Tramadol HCl (Ultram*) 50 mg PO BEDTIME PRN PRN Reason: PAIN Last Admin: 12/05/16 21:36 Dose: 50 mg Tramadol HCl (Ultram*) 100 mg PO Q6H PRN PRN Reason: PAIN Last Admin: 12/06/16 10:21 Dose: 100 mg Objective Vital Signs: Temp Pulse Resp BP Pulse Ox 98.8 F 88 18 142/68 98 12/06/16 11:00 12/06/16 11:00 12/06/16 11:03 12/06/16 11:00 12/06/16 11:00 Oxygen Devices in Use Now: Nasal Cannula - 2L-95% Appearance: chronically ill appearing, lying at 20 degrees, O2 on, intermittent wincing with pain. Eyes: PERRLA Ears/Nose/Mouth/Throat: Clear Oropharnyx Neck: Trachea Midline, No Thyroid Enlargement, Masses, - - + JVD but limited evaluation by endocarterectomy scars Respiratory: Symmetrical Chest Expansion and Respiratory Effort - diffuse wheezing., - - Crackles in the L base and diminished BS 2/3 's up L lung, crackles very base of Right lung. Cardiovascular: RRR, - - RRR, distant. Abdominal: - - soft, mildly distended, non-tender, so appreciable change from Wednesday. Extremities: - - L foot s/p surgical changes, trace edema, warm, tender, stable. Skin: No Nodules or Sclerosis Neurological: Alert and Oriented x 3 Lines/Tubes/Other Access: Clean, Dry and Intact PICC Line Laboratory Results: 12/06/16 05:25 12/06/16 05:25 INR (Anticoag Therapy) 0.88 (0.89-1.11) L 12/01/16 16:23 APTT 34.0 seconds (26.0-36.3) 12/01/16 16:23 Total Bilirubin 0.50 mg/dL (0.2-1.0) 12/01/16 16:23 AST 17 U/L (13-39) 12/01/16 16:23 ALT 10 U/L (7-52) 12/01/16 16:23 Alkaline Phosphatase 135 U/L (34-104) H 12/01/16 16:23 CK-MB (CK-2) 7.6 ng/mL (0.6-6.3) H 12/01/16 16:23 B-Natriuretic Peptide 489 pg/mL (-100) H 12/01/16 16:23 Total Protein 6.9 g/dL (6.4-8.9) 12/01/16 16:23 Albumin 3.3 g/dL (3.2-5.2) 12/01/16 16:23 Globulin 3.6 g/dL (2-4) 12/01/16 16:23 Albumin/Globulin Ratio 0.9 (1-3) L 12/01/16 16:23 TSH 1.31 mcIU/mL (0.34-5.60) 12/01/16 16:23 Diagnostic Imaging: Cath 03/2016: pRCA occluded, SVG-RCA patent, PDA stent patent, 80% small caliber RPL lesion too small for PCI pLAD occluded, ANAYA-LAD patent pLcx occluded, SVG-LCx patent LVEF 40% by LV gram, had LBBB at that time TTE 12/02/2016: Technically difficult study. LVEF severely reduced, restrictive filling pattern, moderate TR/MR CXR today: cephalization, Left pleural effusion, no significantly changed from admission. EKG Data: Monitor and ECG: NSR, LBBB. Assessment/Plan Michelle Galarza is a 56 year old woman with a history of IDDM (she states longstanding type 1), tobacco use, anemia, ICM/systolic HF, ICD, LBBB had failed LV lead placement at [facility] with consideration epicardial lead , recent CHF admission, history of diabetic foot ulcers s/p multiple L foot amputation, CVA, carotid artery surgery, high grade left subclavian stenosis admitted with low output CHF with WRF and little UOP with diuretics now improving on inotropes. BP has been low normal and hemoglobin < 8. Has had 17 pound weight gain since 07/2016/ Managing with Milranon gtt and IV lasix, progressive diuresis. Now with pleuritic CP and leg pain. Points of Discussion: Pleuritic CP: Pissibly related to pleural fuid itself vs. contraction from diuresis. CHF: Continue Milranone. Option of trial of IV bumex instead of lasix. For CM now that BP is better I will add low dose aldactone. Continue to monitor lytes carefully. LBBB and CM: Continue with plans for epicardial [facility] at [place] post diuresis. COPD: Per pt she will not smoke again, smokling cessation discussed with the patient personally. Continue O2 and inhalers, spiriva.
[2016-12-06] MEDS: Spironolactone TAB* 25 MG PO SCH (12:25)
[2016-12-06] MEDS: Bumetanide IV* 0.25 MG/ML 4 ML VIAL SLOW PUSH SCH (14:06)
[2016-12-06] MEDS: Atorvastatin* 80 MG TAB PO SCH (17:42)
[2016-12-06] MEDS: Milrinone* 100 ML IVPB SCH (17:46)
[2016-12-06] MEDS: Gabapentin CAP(*) 300 MG PO SCH (20:31)
[2016-12-06] MEDS: Insulin GLARGINE(*) 1 UNITS UNIT SUBCUT SCH (20:32)
[2016-12-06] MEDS: Pramipexole TAB* 0.5 MG PO SCH (20:33)
--- NOTE | 2016-12-06 20:54 | RAD ---
INDICATION: Pain and swelling. COMPARISON: May 21, 2016 TECHNIQUE: Duplex interrogation of the Lowerextremity was performed. FINDINGS: Deep veins: The common femoral, great saphenous, profunda femoris, proximal, mid, and distal deep femoral, popliteal, posterior tibial, and peroneal veins are patent. There is normal compressibility, augmentation, and phasic flow. Superficial veins: There are no findings of superficial thrombophlebitis. Popliteal fossa:There is no evidence of a popliteal cyst. Soft tissues:There are no significant soft tissue abnormalities. IMPRESSION: No evidence of deep venous thrombosis
[2016-12-07] MEDS: Morphine INJ* 2 MG/ML 1 ML SYRINGE IV PRN ×5 (04:14→18:43)
[2016-12-07 05:35] LABS: Hematocrit 37 % (35-47); Mean Corpuscular HGB Conc 33 g/dl (31-36); Mean Corpuscular Hemoglobin 30 pg (27-31); Mean Corpuscular Volume 90 fL (80-97); Mean Platelet Volume 8 um3 (7.4-10.4); Red Blood Count 4.08 10^6/ul (4.0-5.4); Red Cell Distribution Width 17 % (10.5-15); White Blood Count 9.6 10^3/ul (3.5-10.8)
[2016-12-07 05:46] LABS: BUN/Creatinine Ratio 28.2 (8-20); Calcium 10.1 mg/dL (8.6-10.3); EGFR African American 34.3 (>60); EGFR Non-African American 26.6 (>60); Potassium 4.5 mmol/L (3.5-5.0)
[2016-12-07] MEDS: Heparin VIAL(*) 5000 UNITS/ML VIAL (FIVE THOUSAND) SUBCUT SCH ×3 (06:12→21:17)
[2016-12-07] MEDS: Insulin LISPRO* 1 UNITS UNIT SUBCUT SCH ×4 (08:25→21:29)
[2016-12-07] MEDS ORDERED: Nicotine Inhaler* 10 MG AMP INH PRN (09:23)
[2016-12-07] MEDS: Tiotropium CAP.INH* CAP.INH/18 MCG INH SCH (09:26)
[2016-12-07] MEDS: Isosorbide Mononitrate ER TAB* 30 MG PO SCH (09:27)
[2016-12-07] MEDS: Magnesium Oxide TAB* 400 MG PO SCH (09:27)
[2016-12-07] MEDS: Ferrous Gluconate TAB* 324 MG TAB PO SCH (09:27)
[2016-12-07] MEDS: Spironolactone TAB* 25 MG PO SCH (09:27)
[2016-12-07] MEDS: Pregabalin CAP(*) 50 MG PO SCH ×3 (09:27→21:15)
--- NOTE | 2016-12-07 09:40 | PN ---
Subjective Date of Service: 12/07/16 Interval History: Patient seen and examined at bedside. She denies chest pain, SOB, abd pain, n/v but does endorse a left flank pain that worsens with deep inspiration or sudden movement. Telemetry: SR 70s, LBBB Family History: Unchanged from Admission Social History: Unchanged from Admission Past Medical History: Unchanged from Admission Objective Active Medications: Acetaminophen (Tylenol Tab*) 650 mg PO Q4H PRN PRN Reason: FEVER/PAIN Last Admin: 12/04/16 05:41 Dose: 650 mg Albuterol/Ipratropium (Duoneb Neb.Roxy*) 1 neb INH TID PRN PRN Reason: SHORTNESS OF BREATH Atorvastatin Calcium (Lipitor*) 80 mg PO QPM [facility] Last Admin: 12/06/16 17:42 Dose: 80 mg Bumetanide (Bumex*) 4 mg SLOW PUSH DAILY [facility] Last Admin: 12/06/16 14:06 Dose: 4 mg Device (Nicotine Mouth Piece*) 1 each INH ONCE ONE Stop: 12/07/16 10:01 Dextrose (D50w Syringe 50 Ml*) 12.5 gm IV PUSH .FOR FS < 60 - SS PRN PRN Reason: FS < 60 Diphenhydramine HCl (Benadryl Po*) 25 mg PO Q4H PRN PRN Reason: RASH Last Admin: 12/05/16 15:25 Dose: 25 mg Docusate Sodium (Colace Cap*) 100 mg PO BID PRN PRN Reason: CONSTIPATION Ferrous Gluconate (Fergon Tab*) 324 mg PO DAILY [facility] Last Admin: 12/07/16 09:27 Dose: 324 mg Gabapentin (Neurontin Cap(*)) 1,800 mg PO BEDTIME [facility] Last Admin: 12/06/16 20:31 Dose: 1,800 mg Heparin Sodium (Porcine) (Heparin Vial(*)) 5,000 units SUBCUT Q8HR [facility] Last Admin: 12/07/16 06:12 Dose: 5,000 units Heparin Sodium (Porcine) (Heparin Flush Picc/Ml/Cvc(*)) 0 ml IV FLUSH 0600, 1800 [place] PRN Reason: Protocol Last Admin: 12/07/16 06:12 Dose: 1 ml Milrinone Lactate/Dextrose (Primacor*) 100 mls @ 0 mls/hr IVPB .Q24H [facility] PRN Reason: As Directed Last Admin: 12/06/16 17:46 Dose: 2.9 mls/hr Insulin Glargine (Lantus(*)) 30 units SUBCUT BEDTIME [facility] Last Admin: 12/06/16 20:32 Dose: 30 units Insulin Human Lispro (Humalog*) 0 units SUBCUT ACHS [facility] PRN Reason: Protocol Last Admin: 12/07/16 08:25 Dose: Not Given Isosorbide Mononitrate (Imdur Er Tab*) 30 mg PO DAILY [facility] Last Admin: 12/07/16 09:27 Dose: 30 mg Magnesium Oxide (Magox 400 Tab*) 400 mg PO DAILY [facility] Last Admin: 12/07/16 09:27 Dose: 400 mg Morphine Sulfate (Morphine Inj (Syringe)*) 2 mg IV Q2H PRN PRN Reason: PAIN Last Admin: 12/07/16 06:18 Dose: 2 mg Nicotine (Nicotine Inhaler*) 10 mg INH Q2H PRN PRN Reason: CRAVINGS Ondansetron HCl (Zofran Inj*) 4 mg IV Q4H PRN PRN Reason: NAUSEA Last Admin: 12/04/16 16:08 Dose: 4 mg Pramipexole Dihydrochloride (Mirapex Tab*) 3 mg PO BEDTIME [facility] Last Admin: 12/06/16 20:33 Dose: 3 mg Pregabalin (Lyrica Cap(*)) 50 mg PO TID [facility] Last Admin: 12/07/16 09:27 Dose: 50 mg Senna (Senokot Tab*) 1 tab PO DAILY PRN PRN Reason: CONSTIPATION Spironolactone (Aldactone Tab*) 25 mg PO DAILY [facility] Last Admin: 12/07/16 09:27 Dose: 25 mg Tiotropium [place] (Spiriva Cap.Inh*) 1 cap INH DAILY [facility] Last Admin: 12/07/16 09:26 Dose: 1 cap.inh Tramadol HCl (Ultram*) 50 mg PO BEDTIME PRN PRN Reason: PAIN Last Admin: 12/05/16 21:36 Dose: 50 mg Tramadol HCl (Ultram*) 100 mg PO Q6H PRN PRN Reason: PAIN Last Admin: 12/06/16 10:21 Dose: 100 mg Vital Signs 12/06/16 12/06/16 12/06/16 10:00 10:30 11:00 Temperature 98.9 F 98.9 F 98.8 F Pulse Rate 81 85 88 Respiratory 18 18 17 Rate Blood Pressure 132/74 127/60 142/68 (mmHg) O2 Sat by Pulse 95 98 98 Oximetry 12/06/16 12/06/16 12/06/16 11:03 11:30 12:00 Temperature 99.0 F 98.9 F Pulse Rate 82 79 Respiratory 18 17 16 Rate Blood Pressure 119/63 106/56 (mmHg) O2 Sat by Pulse 93 93 Oximetry 12/06/16 12/06/16 12/06/16 12:30 13:00 13:30 Temperature 98.9 F 98.9 F 99.1 F Pulse Rate 80 81 Respiratory 17 18 16 Rate Blood Pressure 100/61 98/51 88/60 (mmHg) O2 Sat by Pulse 95 95 Oximetry 12/06/16 12/06/16 12/06/16 13:32 14:00 14:06 Temperature 99.2 F 99.5 F Pulse Rate 79 79 Respiratory 14 12 18 Rate Blood Pressure 101/62 105/55 (mmHg) O2 Sat by Pulse 95 99 Oximetry 12/06/16 12/06/16 12/06/16 14:30 15:00 15:30 Temperature 99.6 F 99.5 F 99.7 F Pulse Rate 77 77 76 Respiratory 16 22 17 Rate Blood Pressure 94/62 136/61 92/57 (mmHg) O2 Sat by Pulse 95 92 98 Oximetry 12/06/16 12/06/16 12/06/16 16:00 16:30 17:00 Temperature Pulse Rate 79 Respiratory 19 15 16 Rate Blood Pressure 116/74 127/79 112/72 (mmHg) O2 Sat by Pulse 99 Oximetry 12/06/16 12/06/16 12/06/16 17:30 18:00 18:30 Temperature 99.3 F 99.7 F Pulse Rate Respiratory 18 15 Rate Blood Pressure 127/80 99/84 (mmHg) O2 Sat by Pulse Oximetry 12/06/16 12/06/16 12/06/16 18:59 19:00 19:02 Temperature 99.7 F 99.7 F 99.7 F Pulse Rate 87 85 41 Respiratory 17 14 13 Rate Blood Pressure 119/81 118/73 (mmHg) O2 Sat by Pulse 91 93 78 Oximetry 12/06/16 12/06/16 12/06/16 19:30 20:00 20:30 Temperature 99.8 F 99.8 F 99.6 F Pulse Rate 80 79 Respiratory 15 20 17 Rate Blood Pressure 100/57 93/51 143/86 (mmHg) O2 Sat by Pulse 95 92 Oximetry 12/06/16 12/06/16 12/06/16 20:32 21:00 21:30 Temperature 99.3 F 98.9 F Pulse Rate 80 90 Respiratory 17 16 20 Rate Blood Pressure 134/73 123/72 (mmHg) O2 Sat by Pulse 98 88 Oximetry 12/06/16 12/06/16 12/06/16 22:00 22:30 22:56 Temperature 98.7 F 98.7 F Pulse Rate 74 73 Respiratory 16 17 16 Rate Blood Pressure 103/62 107/61 (mmHg) O2 Sat by Pulse 93 94 Oximetry 12/06/16 12/06/16 12/06/16 23:00 23:30 23:58 Temperature 98.5 F 98.3 F Pulse Rate 71 72 Respiratory 16 18 21 Rate Blood Pressure 107/67 117/65 (mmHg) O2 Sat by Pulse 95 96 Oximetry 12/07/16 12/07/16 12/07/16 00:00 00:01 00:05 Temperature 98.1 F 98.1 F 98.1 F Pulse Rate 71 71 70 Respiratory 15 15 16 Rate Blood Pressure 105/64 (mmHg) O2 Sat by Pulse 96 95 95 Oximetry 12/07/16 12/07/16 12/07/16 00:30 01:00 01:30 Temperature 98.0 F 98.0 F 98.0 F Pulse Rate 70 70 72 Respiratory 16 14 19 Rate Blood Pressure 108/63 117/74 119/64 (mmHg) O2 Sat by Pulse 96 98 97 Oximetry 12/07/16 12/07/16 12/07/16 02:00 02:30 03:00 Temperature 97.9 F 97.8 F 97.8 F Pulse Rate 73 72 68 Respiratory 15 15 15 Rate Blood Pressure 105/59 136/73 106/60 (mmHg) O2 Sat by Pulse 98 97 94 Oximetry 12/07/16 12/07/16 12/07/16 03:30 03:59 04:00 Temperature 97.7 F 97.7 F Pulse Rate 70 69 Respiratory 14 16 15 Rate Blood Pressure 102/66 113/74 (mmHg) O2 Sat by Pulse 95 96 Oximetry 12/07/16 12/07/16 12/07/16 04:14 04:30 04:49 Temperature 97.8 F Pulse Rate Respiratory 14 16 15 Rate Blood Pressure 140/80 (mmHg) O2 Sat by Pulse Oximetry 12/07/16 12/07/16 12/07/16 05:00 05:30 06:00 Temperature 98.1 F 98.3 F 98.5 F Pulse Rate 75 78 74 Respiratory 19 17 16 Rate Blood Pressure 128/63 126/80 95/64 (mmHg) O2 Sat by Pulse 97 100 100 Oximetry 12/07/16 12/07/16 12/07/16 06:18 06:30 06:32 Temperature 98.5 F 98.6 F Pulse Rate 74 73 Respiratory 19 15 17 Rate Blood Pressure 96/54 (mmHg) O2 Sat by Pulse 100 98 Oximetry 12/07/16 12/07/16 12/07/16 07:00 07:30 08:00 Temperature 98.6 F 98.6 F 98.4 F Pulse Rate 73 72 77 Respiratory 14 16 17 Rate Blood Pressure 111/65 103/62 140/81 (mmHg) O2 Sat by Pulse 100 100 100 Oximetry 12/07/16 12/07/16 09:00 09:03 Temperature 98.7 F 98.7 F Pulse Rate 75 74 Respiratory 14 16 Rate Blood Pressure 114/66 109/70 (mmHg) O2 Sat by Pulse 100 100 Oximetry Oxygen Devices in Use Now: Nasal Cannula - 2L-95% Appearance: Chronically ill appearing female, sitting up in bed, in NAD except for when patient has intermittent left flank pain Eyes: PERRLA Ears/Nose/Mouth/Throat: Mucous Membranes Moist Neck: NL Appearance and Movements; NL JVP Respiratory: Symmetrical Chest Expansion and Respiratory Effort, - - diffuse wheezing, crackles in bilateral bases, rhonchi to middle lobes Cardiovascular: RRR, - - left flank pain Abdominal: NL Sounds; No Tenderness; No Distention Extremities: - - edema to thighs but not noticable in calves, post surgical changes to LLE Skin: No Nodules or Sclerosis Neurological: Alert and Oriented x 3 Lines/Tubes/Other Access: Clean, Dry and Intact PICC Line Nutrition: Taking PO's Result Diagrams: 12/07/16 05:22 12/07/16 05:22 Additional Lab and Data: I/O reviewed, out 900ml Microbiology and Other Data: Transfused 2 units PRBC yesterday Assess/Plan/Problems-Billing Assessment: Ms. Galarza is 56 yo female with acute decompensated systolic and diastolic CHF, improving on milrinone drip and IV lasix - Patient Problems (1) Acute on chronic systolic (congestive) heart failure Current Visit: Yes Status: Acute Priority: High Code(s): I50.23 - ACUTE ON CHRONIC SYSTOLIC (CONGESTIVE) HEART FAILURE SNOMED Code(s): 082998813 Comment: Good response to milrinone and furosemide. Furosemide changed to IV bumetanide. D/c milrinone today per Dr. Villegas. Creatinine up slightly, will continue IV bumetanide daily per cardiology. Candidate for epicardial lead for biV pacer in [place] in several days. (2) Anemia Code(s): D64.9 - ANEMIA, UNSPECIFIED Comment: Anemia appears due to CKD. Responded well to transfusion. (3) Type 1 diabetes mellitus Comment: Blood sugars in reasonable control. Continue Lantus and SSI. (4) DVT prophylaxis Code(s): FCA2855 - Comment: SQ heparin Hold dose in AM in anticipation for port placement procedure. Status and Disposition: Inpatient admission. LOS >2 days due to complexity of patient's health issues.
[2016-12-07] MEDS ORDERED: Mouth Piece, Nicotine* 1 EACH CARTRIDGE INH ONE (10:00)
[2016-12-07] MEDS: Bumetanide IV* 0.25 MG/ML 4 ML VIAL SLOW PUSH SCH (10:19)
--- NOTE | 2016-12-07 14:48 | PN ---
Subjective Date of Service: 12/07/16 Interval History: Patient seen and examined at bedside. She denies chest pain, SOB, abd pain, n/v but does endorse a left flank pain that worsens with deep inspiration or sudden movement. Family History: Unchanged from Admission Social History: Unchanged from Admission Past Medical History: Unchanged from Admission Objective Active Medications: Acetaminophen (Tylenol Tab*) 650 mg PO Q4H PRN PRN Reason: FEVER/PAIN Last Admin: 12/04/16 05:41 Dose: 650 mg Albuterol/Ipratropium (Duoneb Neb.Roxy*) 1 neb INH TID PRN PRN Reason: SHORTNESS OF BREATH Atorvastatin Calcium (Lipitor*) 80 mg PO QPM [facility] Last Admin: 12/06/16 17:42 Dose: 80 mg Bumetanide (Bumex*) 4 mg SLOW PUSH DAILY [facility] Last Admin: 12/07/16 10:19 Dose: 4 mg Dextrose (D50w Syringe 50 Ml*) 12.5 gm IV PUSH .FOR FS < 60 - SS PRN PRN Reason: FS < 60 Diphenhydramine HCl (Benadryl Po*) 25 mg PO Q4H PRN PRN Reason: RASH Last Admin: 12/05/16 15:25 Dose: 25 mg Docusate Sodium (Colace Cap*) 100 mg PO BID PRN PRN Reason: CONSTIPATION Ferrous Gluconate (Fergon Tab*) 324 mg PO DAILY [facility] Last Admin: 12/07/16 09:27 Dose: 324 mg Gabapentin (Neurontin Cap(*)) 1,800 mg PO BEDTIME [facility] Last Admin: 12/06/16 20:31 Dose: 1,800 mg Heparin Sodium (Porcine) (Heparin Vial(*)) 5,000 units SUBCUT Q8HR [facility] Stop: 12/07/16 23:59 Last Admin: 12/07/16 13:33 Dose: 5,000 units Heparin Sodium (Porcine) (Heparin Flush Picc/Ml/Cvc(*)) 0 ml IV FLUSH 0600, 1800 [facility] PRN Reason: Protocol Last Admin: 12/07/16 06:12 Dose: 1 ml Heparin Sodium (Porcine) (Heparin Vial(*)) 5,000 units SUBCUT Q8HR [facility] Insulin Glargine (Lantus(*)) 30 units SUBCUT BEDTIME [facility] Last Admin: 12/06/16 20:32 Dose: 30 units Insulin Human Lispro (Humalog*) 0 units SUBCUT ACHS [place] PRN Reason: Protocol Last Admin: 12/07/16 13:32 Dose: 3 units Isosorbide Mononitrate (Imdur Er Tab*) 30 mg PO DAILY [facility] Last Admin: 12/07/16 09:27 Dose: 30 mg Magnesium Oxide (Magox 400 Tab*) 400 mg PO DAILY [facility] Last Admin: 12/07/16 09:27 Dose: 400 mg Morphine Sulfate (Morphine Inj (Syringe)*) 2 mg IV Q2H PRN PRN Reason: PAIN Last Admin: 12/07/16 13:58 Dose: 2 mg Nicotine (Nicotine Inhaler*) 10 mg INH Q2H PRN PRN Reason: CRAVINGS Ondansetron HCl (Zofran Inj*) 4 mg IV Q4H PRN PRN Reason: NAUSEA Last Admin: 12/04/16 16:08 Dose: 4 mg Pramipexole Dihydrochloride (Mirapex Tab*) 3 mg PO BEDTIME [facility] Last Admin: 12/06/16 20:33 Dose: 3 mg Pregabalin (Lyrica Cap(*)) 50 mg PO TID [facility] Last Admin: 12/07/16 13:34 Dose: 50 mg Senna (Senokot Tab*) 1 tab PO DAILY PRN PRN Reason: CONSTIPATION Spironolactone (Aldactone Tab*) 25 mg PO DAILY [facility] Last Admin: 12/07/16 09:27 Dose: 25 mg Tiotropium [place] (Spiriva Cap.Inh*) 1 cap INH DAILY [facility] Last Admin: 12/07/16 09:26 Dose: 1 cap.inh Tramadol HCl (Ultram*) 50 mg PO BEDTIME PRN PRN Reason: PAIN Last Admin: 12/05/16 21:36 Dose: 50 mg Tramadol HCl (Ultram*) 100 mg PO Q6H PRN PRN Reason: PAIN Last Admin: 12/06/16 10:21 Dose: 100 mg Vital Signs 12/06/16 12/06/16 12/06/16 15:00 15:30 16:00 Temperature 99.5 F 99.7 F Pulse Rate 77 76 Respiratory 22 17 19 Rate Blood Pressure 136/61 92/57 116/74 (mmHg) O2 Sat by Pulse 92 98 Oximetry 12/06/16 12/06/16 12/06/16 16:30 17:00 17:30 Temperature Pulse Rate 79 Respiratory 15 16 Rate Blood Pressure 127/79 112/72 127/80 (mmHg) O2 Sat by Pulse 99 Oximetry 12/06/16 12/06/16 12/06/16 18:00 18:30 18:59 Temperature 99.3 F 99.7 F 99.7 F Pulse Rate 87 Respiratory 18 15 17 Rate Blood Pressure 99/84 119/81 (mmHg) O2 Sat by Pulse 91 Oximetry 12/06/16 12/06/16 12/06/16 19:00 19:02 19:30 Temperature 99.7 F 99.7 F 99.8 F Pulse Rate 85 41 80 Respiratory 14 13 15 Rate Blood Pressure 118/73 100/57 (mmHg) O2 Sat by Pulse 93 78 95 Oximetry 12/06/16 12/06/16 12/06/16 20:00 20:30 20:32 Temperature 99.8 F 99.6 F Pulse Rate 79 Respiratory 20 17 17 Rate Blood Pressure 93/51 143/86 (mmHg) O2 Sat by Pulse 92 Oximetry 12/06/16 12/06/16 12/06/16 21:00 21:30 22:00 Temperature 99.3 F 98.9 F 98.7 F Pulse Rate 80 90 74 Respiratory 16 20 16 Rate Blood Pressure 134/73 123/72 103/62 (mmHg) O2 Sat by Pulse 98 88 93 Oximetry 12/06/16 12/06/16 12/06/16 22:30 22:56 23:00 Temperature 98.7 F 98.5 F Pulse Rate 73 71 Respiratory 17 16 16 Rate Blood Pressure 107/61 107/67 (mmHg) O2 Sat by Pulse 94 95 Oximetry 12/06/16 12/06/16 12/07/16 23:30 23:58 00:00 Temperature 98.3 F 98.1 F Pulse Rate 72 71 Respiratory 18 21 15 Rate Blood Pressure 117/65 (mmHg) O2 Sat by Pulse 96 96 Oximetry 12/07/16 12/07/16 12/07/16 00:01 00:05 00:30 Temperature 98.1 F 98.1 F 98.0 F Pulse Rate 71 70 70 Respiratory 15 16 16 Rate Blood Pressure 105/64 108/63 (mmHg) O2 Sat by Pulse 95 95 96 Oximetry 12/07/16 12/07/16 12/07/16 01:00 01:30 02:00 Temperature 98.0 F 98.0 F 97.9 F Pulse Rate 70 72 73 Respiratory 14 19 15 Rate Blood Pressure 117/74 119/64 105/59 (mmHg) O2 Sat by Pulse 98 97 98 Oximetry 12/07/16 12/07/16 12/07/16 02:30 03:00 03:30 Temperature 97.8 F 97.8 F 97.7 F Pulse Rate 72 68 70 Respiratory 15 15 14 Rate Blood Pressure 136/73 106/60 102/66 (mmHg) O2 Sat by Pulse 97 94 95 Oximetry 12/07/16 12/07/16 12/07/16 03:59 04:00 04:14 Temperature 97.7 F Pulse Rate 69 Respiratory 16 15 14 Rate Blood Pressure 113/74 (mmHg) O2 Sat by Pulse 96 Oximetry 12/07/16 12/07/16 12/07/16 04:30 04:49 05:00 Temperature 97.8 F 98.1 F Pulse Rate 75 Respiratory 16 15 19 Rate Blood Pressure 140/80 128/63 (mmHg) O2 Sat by Pulse 97 Oximetry 12/07/16 12/07/16 12/07/16 05:30 06:00 06:18 Temperature 98.3 F 98.5 F Pulse Rate 78 74 Respiratory 17 16 19 Rate Blood Pressure 126/80 95/64 (mmHg) O2 Sat by Pulse 100 100 Oximetry 12/07/16 12/07/16 12/07/16 06:30 06:32 07:00 Temperature 98.5 F 98.6 F 98.6 F Pulse Rate 74 73 73 Respiratory 15 17 14 Rate Blood Pressure 96/54 111/65 (mmHg) O2 Sat by Pulse 100 98 100 Oximetry 12/07/16 12/07/16 12/07/16 07:30 08:00 09:00 Temperature 98.6 F 98.4 F 98.7 F Pulse Rate 72 77 75 Respiratory 16 17 14 Rate Blood Pressure 103/62 140/81 114/66 (mmHg) O2 Sat by Pulse 100 100 100 Oximetry 12/07/16 12/07/16 12/07/16 09:03 10:00 10:15 Temperature 98.7 F 98.9 F Pulse Rate 74 74 Respiratory 16 14 10 Rate Blood Pressure 109/70 109/59 (mmHg) O2 Sat by Pulse 100 100 Oximetry 12/07/16 12/07/16 12/07/16 10:17 11:00 12:00 Temperature Pulse Rate 76 76 Respiratory 10 16 16 Rate Blood Pressure 113/68 124/66 (mmHg) O2 Sat by Pulse 99 99 Oximetry 12/07/16 12/07/16 12/07/16 13:00 13:58 14:00 Temperature Pulse Rate 76 80 Respiratory 15 18 15 Rate Blood Pressure 111/67 115/71 (mmHg) O2 Sat by Pulse 97 98 Oximetry Oxygen Devices in Use Now: Nasal Cannula - 2L-95% Result Diagrams: 12/07/16 05:22 12/07/16 05:22 Additional Lab and Data: I/O reviewed, out 900ml Microbiology and Other Data: Transfused 2 units PRBC yesterday Assess/Plan/Problems-Billing Ms. Galarza is 56 yo female with acute decompensated systolic and diastolic CHF, improving on milrinone drip and IV lasix Status and Disposition: Will need to remain in ICU while on milrinone drip.
[2016-12-07] MEDS: Atorvastatin* 80 MG TAB PO SCH (18:32)
[2016-12-07] MEDS: traMADol TAB* 50 MG PO PRN (18:32)
[2016-12-07] MEDS: Carvedilol TAB* 6.25 MG PO SCH (21:10)
[2016-12-07] MEDS: Enalapril TAB* 5 MG PO SCH (21:15)
[2016-12-07] MEDS: Gabapentin CAP(*) 300 MG PO SCH (21:15)
[2016-12-07] MEDS: Pramipexole TAB* 0.5 MG PO SCH (21:23)
[2016-12-07] MEDS: Insulin GLARGINE(*) 1 UNITS UNIT SUBCUT SCH (21:29)
[2016-12-08] MEDS: Senna TAB PO PRN (05:58)
[2016-12-08] MEDS: Morphine INJ* 2 MG/ML 1 ML SYRINGE IV PRN (06:14)
[2016-12-08 06:37] LABS: BUN/Creatinine Ratio 25.3 (8-20); Calcium 9.8 mg/dL (8.6-10.3); EGFR African American 23.6 (>60); EGFR Non-African American 18.4 (>60); Potassium 4.8 mmol/L (3.5-5.0)
[2016-12-08] MEDS: Insulin LISPRO* 1 UNITS UNIT SUBCUT SCH ×4 (07:40→21:58)
[2016-12-08] MEDS: Enalapril TAB* 5 MG PO SCH ×2 (09:00→21:54)
[2016-12-08] MEDS: Magnesium Oxide TAB* 400 MG PO SCH (09:00)
[2016-12-08] MEDS: Pregabalin CAP(*) 50 MG PO SCH ×3 (09:00→21:52)
[2016-12-08] MEDS: Ferrous Gluconate TAB* 324 MG TAB PO SCH (09:00)
[2016-12-08] MEDS: Isosorbide Mononitrate ER TAB* 30 MG PO SCH (09:00)
[2016-12-08] MEDS: Carvedilol TAB* 6.25 MG PO SCH ×2 (09:00→22:00)
[2016-12-08] MEDS: Tiotropium CAP.INH* CAP.INH/18 MCG INH SCH (09:47)
--- NOTE | 2016-12-08 09:49 | PN ---
Subjective Date of Service: 12/08/16 Interval History: Patient seen and examined at bedside. She reports improvement in BLE edema but states that her stomach still feels "a bit chapa than usual." She denies CP or SOB but still reports left flank pleuritic pain with deep breathing. She expressed concern for discharge to home and having to wait for her epicardial lead placement in [place], stating that "my symptoms always get worse when I' m off the IVs." She also reported concern for not having enough money for gas; Tavon had called the patient to schedule an outpatient appointment for . She states she will have the necessary funds on Wednesday. I advised the patient to call back and explain this to the office and ask for the appointment to be pushed back one day, which the patient agreed to do. Telemetry: LBBB, SR 80s, paced Family History: Unchanged from Admission Social History: Unchanged from Admission Past Medical History: Unchanged from Admission Objective Active Medications: Acetaminophen (Tylenol Tab*) 650 mg PO Q4H PRN PRN Reason: FEVER/PAIN Last Admin: 12/04/16 05:41 Dose: 650 mg Albuterol/Ipratropium (Duoneb Neb.Roxy*) 1 neb INH TID PRN PRN Reason: SHORTNESS OF BREATH Atorvastatin Calcium (Lipitor*) 80 mg PO QPM [facility] Last Admin: 12/07/16 18:32 Dose: 80 mg Bumetanide (Bumex*) 4 mg SLOW PUSH DAILY [facility] Last Admin: 12/07/16 10:19 Dose: 4 mg Carvedilol (Coreg Tab*) 6.25 mg PO BID [facility] Last Admin: 12/07/16 21:10 Dose: 6.25 mg Dextrose (D50w Syringe 50 Ml*) 12.5 gm IV PUSH .FOR FS < 60 - SS PRN PRN Reason: FS < 60 Diphenhydramine HCl (Benadryl Po*) 25 mg PO Q4H PRN PRN Reason: RASH Last Admin: 12/05/16 15:25 Dose: 25 mg Docusate Sodium (Colace Cap*) 100 mg PO BID PRN PRN Reason: CONSTIPATION Last Admin: 12/07/16 21:16 Dose: 100 mg Enalapril Maleate (Vasotec Tab*) 10 mg PO BID [facility] Last Admin: 12/07/16 21:15 Dose: 10 mg Ferrous Gluconate (Fergon Tab*) 324 mg PO DAILY [facility] Last Admin: 12/07/16 09:27 Dose: 324 mg Gabapentin (Neurontin Cap(*)) 1,800 mg PO BEDTIME [facility] Last Admin: 12/07/16 21:15 Dose: 1,800 mg Heparin Sodium (Porcine) (Heparin Flush Picc/Ml/Cvc(*)) 0 ml IV FLUSH 0600, 1800 [facility] PRN Reason: Protocol Last Admin: 12/08/16 06:04 Dose: Not Given Heparin Sodium (Porcine) (Heparin Vial(*)) 5,000 units SUBCUT Q8HR [place] Insulin Glargine (Lantus(*)) 30 units SUBCUT BEDTIME [facility] Last Admin: 12/07/16 21:29 Dose: 30 units Insulin Human Lispro (Humalog*) 0 units SUBCUT ACHS [facility] PRN Reason: Protocol Last Admin: 12/08/16 07:40 Dose: Not Given Isosorbide Mononitrate (Imdur Er Tab*) 30 mg PO DAILY [facility] Last Admin: 12/07/16 09:27 Dose: 30 mg Magnesium Oxide (Magox 400 Tab*) 400 mg PO DAILY [facility] Last Admin: 12/07/16 09:27 Dose: 400 mg Morphine Sulfate (Morphine Inj (Syringe)*) 2 mg IV Q2H PRN PRN Reason: PAIN Last Admin: 12/08/16 06:14 Dose: 2 mg Nicotine (Nicotine Inhaler*) 10 mg INH Q2H PRN PRN Reason: CRAVINGS Ondansetron HCl (Zofran Inj*) 4 mg IV Q4H PRN PRN Reason: NAUSEA Last Admin: 12/04/16 16:08 Dose: 4 mg Pramipexole Dihydrochloride (Mirapex Tab*) 3 mg PO BEDTIME [facility] Last Admin: 12/07/16 21:23 Dose: 3 mg Pregabalin (Lyrica Cap(*)) 50 mg PO TID [facility] Last Admin: 12/07/16 21:15 Dose: 50 mg Senna (Senokot Tab*) 1 tab PO DAILY PRN PRN Reason: CONSTIPATION Last Admin: 12/08/16 05:58 Dose: 1 tab Spironolactone (Aldactone Tab*) 25 mg PO DAILY [facility] Last Admin: 12/07/16 09:27 Dose: 25 mg Tiotropium [place] (Spiriva Cap.Inh*) 1 cap INH DAILY [place] Last Admin: 12/07/16 09:26 Dose: 1 cap.inh Tramadol HCl (Ultram*) 50 mg PO BEDTIME PRN PRN Reason: PAIN Last Admin: 12/05/16 21:36 Dose: 50 mg Tramadol HCl (Ultram*) 100 mg PO Q6H PRN PRN Reason: PAIN Last Admin: 12/07/16 18:32 Dose: 100 mg Vital Signs 12/07/16 12/07/16 12/07/16 10:00 10:15 10:17 Temperature 98.9 F Pulse Rate 74 Respiratory 14 10 10 Rate Blood Pressure 109/59 (mmHg) O2 Sat by Pulse 100 Oximetry 12/07/16 12/07/16 12/07/16 11:00 12:00 13:00 Temperature Pulse Rate 76 76 76 Respiratory 16 16 15 Rate Blood Pressure 113/68 124/66 111/67 (mmHg) O2 Sat by Pulse 99 99 97 Oximetry 12/07/16 12/07/16 12/07/16 13:58 14:00 15:00 Temperature Pulse Rate 80 77 Respiratory 18 15 18 Rate Blood Pressure 115/71 95/55 (mmHg) O2 Sat by Pulse 98 97 Oximetry 12/07/16 12/07/16 12/07/16 15:30 16:00 16:30 Temperature Pulse Rate 76 74 73 Respiratory 17 17 14 Rate Blood Pressure 109/62 (mmHg) O2 Sat by Pulse 96 97 100 Oximetry 12/07/16 12/07/16 12/07/16 17:00 17:30 18:00 Temperature Pulse Rate 75 76 74 Respiratory 15 17 19 Rate Blood Pressure 112/66 (mmHg) O2 Sat by Pulse 99 98 98 Oximetry 12/07/16 12/07/16 12/07/16 18:30 18:43 19:00 Temperature Pulse Rate 76 74 Respiratory 17 19 18 Rate Blood Pressure 94/56 (mmHg) O2 Sat by Pulse 98 97 Oximetry 12/07/16 12/07/16 12/07/16 19:30 20:00 20:10 Temperature 100.1 F 99.9 F 99.9 F Pulse Rate 73 72 72 Respiratory 16 17 17 Rate Blood Pressure 118/67 (mmHg) O2 Sat by Pulse 97 98 97 Oximetry 12/07/16 12/07/16 12/07/16 20:30 21:00 21:12 Temperature 99.8 F 99.6 F 99.5 F Pulse Rate 73 73 74 Respiratory 17 18 14 Rate Blood Pressure 108/69 (mmHg) O2 Sat by Pulse 98 94 95 Oximetry 12/07/16 12/07/16 12/07/16 21:30 22:00 22:04 Temperature 99.5 F 99.7 F 99.7 F Pulse Rate 74 80 84 Respiratory 15 18 16 Rate Blood Pressure 158/82 (mmHg) O2 Sat by Pulse 99 99 99 Oximetry 12/07/16 12/07/16 12/07/16 22:07 22:30 23:00 Temperature 99.7 F 99.8 F 99.2 F Pulse Rate 77 79 75 Respiratory 18 16 17 Rate Blood Pressure 144/78 105/61 (mmHg) O2 Sat by Pulse 100 100 99 Oximetry 12/07/16 12/07/16 12/08/16 23:03 23:30 00:00 Temperature 99.2 F 99.3 F 99.1 F Pulse Rate 74 72 69 Respiratory 16 18 20 Rate Blood Pressure (mmHg) O2 Sat by Pulse 98 97 97 Oximetry 12/08/16 12/08/16 12/08/16 00:01 00:30 00:37 Temperature 99.1 F 98.6 F 98.9 F Pulse Rate 69 68 67 Respiratory 21 16 17 Rate Blood Pressure 78/48 86/50 (mmHg) O2 Sat by Pulse 97 98 97 Oximetry 12/08/16 12/08/16 12/08/16 01:00 01:04 01:30 Temperature 98.9 F 98.8 F 98.9 F Pulse Rate 66 66 65 Respiratory 17 15 17 Rate Blood Pressure 72/46 92/57 (mmHg) O2 Sat by Pulse 97 97 97 Oximetry 12/08/16 12/08/16 12/08/16 02:00 02:30 03:00 Temperature 98.5 F 98.5 F 98.3 F Pulse Rate 65 65 66 Respiratory 17 20 18 Rate Blood Pressure 86/45 89/59 (mmHg) O2 Sat by Pulse 97 98 98 Oximetry 12/08/16 12/08/16 12/08/16 03:30 04:00 04:02 Temperature 98.4 F 97.6 F 96.0 F Pulse Rate 66 67 68 Respiratory 17 14 16 Rate Blood Pressure 84/58 93/54 (mmHg) O2 Sat by Pulse 98 99 99 Oximetry 12/08/16 12/08/16 12/08/16 04:30 05:00 05:30 Temperature 98.3 F 98.3 F 98.3 F Pulse Rate 67 72 71 Respiratory 17 21 17 Rate Blood Pressure 104/56 (mmHg) O2 Sat by Pulse 98 99 100 Oximetry 12/08/16 12/08/16 12/08/16 06:00 06:14 06:30 Temperature 98.2 F Pulse Rate 72 Respiratory 12 12 15 Rate Blood Pressure 116/79 (mmHg) O2 Sat by Pulse 99 Oximetry 12/08/16 12/08/16 12/08/16 07:00 07:30 07:45 Temperature 98.6 F 98.5 F 98.5 F Pulse Rate 70 70 71 Respiratory 17 15 16 Rate Blood Pressure 104/56 83/47 (mmHg) O2 Sat by Pulse 97 98 100 Oximetry 12/08/16 12/08/16 12/08/16 07:47 08:00 08:30 Temperature 98.5 F 98.6 F 98.4 F Pulse Rate 70 67 67 Respiratory 13 14 17 Rate Blood Pressure 83/49 92/67 (mmHg) O2 Sat by Pulse 99 100 100 Oximetry Oxygen Devices in Use Now: Nasal Cannula - 2L-95% Appearance: Chronically ill appearing female, sitting up in bed, in NAD Eyes: PERRLA Ears/Nose/Mouth/Throat: Clear Oropharnyx, Mucous Membranes Moist Neck: NL Appearance and Movements; NL JVP Respiratory: Symmetrical Chest Expansion and Respiratory Effort, - - expiratory wheezing throughout, rhonchi throughout all lobes Cardiovascular: RRR Abdominal: NL Sounds; No Tenderness; No Distention Extremities: No Clubbing, Cyanosis - trace BLE edema, post surgical changes to LLE Skin: No Nodules or Sclerosis Neurological: Alert and Oriented x 3 Lines/Tubes/Other Access: Clean, Dry and Intact PICC Line Result Diagrams: 12/07/16 05:22 12/08/16 06:07 Additional Lab and Data: I/O reviewed, out 900ml Microbiology and Other Data: Transfused 2 units PRBC yesterday Assess/Plan/Problems-Billing Assessment: Ms. Galarza is 56 yo female with acute decompensated systolic and diastolic CHF, improving on milrinone drip and IV lasix - Patient Problems (1) Acute on chronic systolic (congestive) heart failure Current Visit: Yes Status: Acute Priority: High Code(s): I50.23 - ACUTE ON CHRONIC SYSTOLIC (CONGESTIVE) HEART FAILURE SNOMED Code(s): 767529154 Comment: Continue IV Bumex. Monitor output. Plan to d/c pagan and prepare patient for discharge in the next 1-2 days. Creatinine up today, will continue IV bumetanide daily per cardiology. Candidate for epicardial lead for biV pacer in [place] as an outpatient, per discussion with Dr. Villegas. (2) Anemia Code(s): D64.9 - ANEMIA, UNSPECIFIED Comment: Improved. Anemia appears due to CKD. Responded well to transfusion. (3) Type 1 diabetes mellitus Comment: Blood sugars in reasonable control. Continue Lantus and SSI. (4) DVT prophylaxis Code(s): BCC1615 - Comment: SQ heparin Hold dose this AM in anticipation for port placement procedure. Status and Disposition: Inpatient admission. LOS >2 days due to complexity of patient's health issues.
[2016-12-08] MEDS: Bumetanide IV* 0.25 MG/ML 4 ML VIAL SLOW PUSH SCH (09:53)
[2016-12-08] MEDS: traMADol TAB* 50 MG PO PRN (11:39)
[2016-12-08] MEDS ORDERED: Clindamycin 600 MG IVPREMIX(* 600 MG/50 ML SDV IV ONE (12:00)
[2016-12-08] MEDS ORDERED: Midazolam* 1 MG/ML 5 ML VIAL (5 MG) ONE (13:43)
[2016-12-08] MEDS ORDERED: fentaNYL* 50 MCG/ML 2 ML VIAL (100 MCG VIAL) ONE (13:43)
--- NOTE | 2016-12-08 15:46 | RAD ---
CPT II Codes: 6045F Indication:Necessity for long-term venous access in a woman with renal insufficiency and malignant hypertension. Comparison: CTA of the chest November 29, 2015 Anesthesia: Lidocaine 1% locally. Conscious sedation was administered with intravenous fentanyl and Versed. Continuous cardiopulmonary monitoring was provided by IR nursing staff and Dr. Zavala. Fluoroscopy time: 1 minute and 32 seconds Procedure Note: The risks and benefit of the procedure were discussed with the patient and informed consent was obtained. The patient received clindamycin 600 mg immediately before the procedure for antibiotic prophylaxis. The patient was placed in the supine position in the angiography suite and the neck and upper chest was prepped and draped according to standard sterile protocol. A formal time out was performed by Dr. Zavala in the presence of the IR staff and all agreed on the patient, procedure and laterality. The skin overlying the jugular vein and upper chest was anesthetized with 1% lidocaine. Real time ultrasound imaging shows the internal jugular vein is patent and determined to be adequate for catheter placement. Utilizing real time ultrasound visualization the internal jugular vein was accessed with an 18 gauge needle. An image was recorded and saved confirming appropriate intraluminal position of the needle tip. Blood return further confirmed position. Through the needle and under fluoroscopic control a 0.035" guidewire was advanced down the IVC confirming appropriate venous access. An image of the wire in the IVC was recorded. Over the wire a peel away sheath was gently advanced into the IVC under fluoroscopic guidance. Attention was now directed to creation of the subcutaneous mediport pocket. An incision below the clavicle was made and using blunt instrument dissection a subcutaneous port was created. From the superior edge of the incision a tunneling device was used to advance the catheter from the pocket to the venotomy. The port end of the catheter was clamped to prevent air aspiration into the catheter. The catheter was pulled through and advanced into the peel away sheath under fluoroscopic guidance. The sheath was peeled away and the catheter tip was pulled back so that it terminated just at the cavoatrial junction. The catheter was cut to a length of 22 cm, attached to the mediport and secured with the pericatheter cuff. The port was accessed with a Albert needle and blood was aspirated from the port and then flushed with sterile saline with minimal effort. The port was then flushed with approximately 3mL of 100 units/mL of heparin. The pocket was flushed with sterile saline prior to inserting the mediport into the pocket. A fluoroscopic image was saved demonstrating appropriate position of all parts of the mediport before closure of the incision. The pocket was closed with interrupted absorbable suture then dressed with Steri strips and sterile gauze. The venotomy site was dressed with Steri strips, sterile gauze and Tegaderm. The patient tolerated the procedure well and left the angiography suite in stable condition. IMPRESSION: Uncomplicated placement of a 8 Urdu mediport into the right internal jugular vein as described. Plan: 1. External bandages can be removed 24 hours from the time of port insertion. 2. The overlying Steri strips should be allowed to slough off over the course of 1 week. 3. Please wait to access the Mediport for at least 48 hours from the time of implantation last absolutely necessary. 4. Please submit request for mediport removal to Interventional Radiology when the mediport is no longer necessary.
[2016-12-08] MEDS ORDERED: Magnesium Hydroxide LIQ* 30 ML UDC PO PRN (16:06)
[2016-12-08] MEDS: Spironolactone TAB* 25 MG PO SCH (16:33)
[2016-12-08] MEDS: Atorvastatin* 80 MG TAB PO SCH (18:17)
[2016-12-08] MEDS ORDERED: oxyCODONE TAB* 5 MG TAB PO ONE (18:29)
[2016-12-08] MEDS: Gabapentin CAP(*) 300 MG PO SCH (21:51)
[2016-12-08] MEDS: Pramipexole TAB* 0.5 MG PO SCH (21:52)
[2016-12-08] MEDS: Insulin GLARGINE(*) 1 UNITS UNIT SUBCUT SCH (22:07)
[2016-12-08] MEDS: Heparin VIAL(*) 5000 UNITS/ML VIAL (FIVE THOUSAND) SUBCUT SCH (22:08)
[2016-12-09] MEDS: Heparin VIAL(*) 5000 UNITS/ML VIAL (FIVE THOUSAND) SUBCUT SCH ×3 (06:28→21:49)
[2016-12-09 07:20] LABS: BUN/Creatinine Ratio 28.5 (8-20); Calcium 9.3 mg/dL (8.6-10.3); EGFR African American 22.5 (>60); EGFR Non-African American 17.5 (>60)
[2016-12-09] MEDS: Pregabalin CAP(*) 50 MG PO SCH ×3 (08:52→21:44)
[2016-12-09] MEDS: Spironolactone TAB* 25 MG PO SCH (08:52)
[2016-12-09] MEDS: Tiotropium CAP.INH* CAP.INH/18 MCG INH SCH (08:53)
[2016-12-09] MEDS: Senna TAB PO PRN (08:53)
[2016-12-09] MEDS: Torsemide TAB* 20 MG PO SCH (08:53)
[2016-12-09] MEDS: Ferrous Gluconate TAB* 324 MG TAB PO SCH (08:53)
[2016-12-09] MEDS: Magnesium Oxide TAB* 400 MG PO SCH (08:53)
[2016-12-09] MEDS: Insulin LISPRO* 1 UNITS UNIT SUBCUT SCH ×4 (08:53→21:48)
[2016-12-09] MEDS: traMADol TAB* 50 MG PO PRN ×2 (10:36→19:15)
--- NOTE | 2016-12-09 11:26 | PN ---
Subjective Date of Service: 12/09/16 Interval History: This is a 56 yo female with a complicated medical history including CHF (last EF 30-35%), IDDM, CKD, PVD, COPD, HTN, HLD, h/o CVA, RLS and CAD who presented with acute exacerbation of her heart failure. Patient has been admitted to the ICU for milrinone with good results. Patient has diuressed ~ 7kg during her hospital stay with resolution of her LE edema. Cr improved with use of ionotrope. Milrinone drip discontinued 12/07. Urine output has still been appropriate since it was discontinued. Plan for dc to [place] for epicardial lead placement. Her appointment is for tomorrow afternoon at 1p. Patient is feeling slightly better, but not well enough to return home. She reports a "tingling" sensation over her whole body. Nothing focal and it preceeded the pain medication she received this am. She denies dyspnea at rest , but notable hypoxia (mid 80s) on RA. No chest pain. Objective Active Medications: Acetaminophen (Tylenol Tab*) 650 mg PO Q4H PRN PRN Reason: FEVER/PAIN Last Admin: 12/04/16 05:41 Dose: 650 mg Albuterol/Ipratropium (Duoneb Neb.Roxy*) 1 neb INH TID PRN PRN Reason: SHORTNESS OF BREATH Atorvastatin Calcium (Lipitor*) 80 mg PO QPM [facility] Last Admin: 12/08/16 18:17 Dose: 80 mg Carvedilol (Coreg Tab*) 6.25 mg PO BID [facility] Last Admin: 12/08/16 22:00 Dose: Not Given Dextrose (D50w Syringe 50 Ml*) 12.5 gm IV PUSH .FOR FS < 60 - SS PRN PRN Reason: FS < 60 Diphenhydramine HCl (Benadryl Po*) 25 mg PO Q4H PRN PRN Reason: RASH Last Admin: 12/05/16 15:25 Dose: 25 mg Docusate Sodium (Colace Cap*) 100 mg PO BID PRN PRN Reason: CONSTIPATION Last Admin: 12/07/16 21:16 Dose: 100 mg Enalapril Maleate (Vasotec Tab*) 2.5 mg PO DAILY [facility] Ferrous Gluconate (Fergon Tab*) 324 mg PO DAILY [facility] Last Admin: 12/09/16 08:53 Dose: 324 mg Gabapentin (Neurontin Cap(*)) 1,800 mg PO BEDTIME [facility] Last Admin: 12/08/16 21:51 Dose: 1,800 mg Heparin Sodium (Porcine) (Heparin Flush Picc/Ml/Cvc(*)) 0 ml IV FLUSH 0600, 1800 [place] PRN Reason: Protocol Last Admin: 12/09/16 06:28 Dose: 2 ml Heparin Sodium (Porcine) (Heparin Vial(*)) 5,000 units SUBCUT Q8HR [facility] Last Admin: 12/09/16 06:28 Dose: 5,000 units Insulin Glargine (Lantus(*)) 30 units SUBCUT BEDTIME [facility] Last Admin: 12/08/16 22:07 Dose: 30 units Insulin Human Lispro (Humalog*) 0 units SUBCUT ACHS [facility] PRN Reason: Protocol Last Admin: 12/09/16 08:53 Dose: Not Given Isosorbide Mononitrate (Imdur Er Tab*) 30 mg PO DAILY [facility] Last Admin: 12/08/16 09:00 Dose: Not Given Magnesium Hydroxide (Milk Of Magnesia Liq*) 30 ml PO Q6H PRN PRN Reason: CONSTIPATION Magnesium Oxide (Magox 400 Tab*) 400 mg PO DAILY [facility] Last Admin: 12/09/16 08:53 Dose: 400 mg Morphine Sulfate (Morphine Inj (Syringe)*) 2 mg IV Q2H PRN PRN Reason: PAIN Last Admin: 12/08/16 06:14 Dose: 2 mg Nicotine (Nicotine Inhaler*) 10 mg INH Q2H PRN PRN Reason: CRAVINGS Ondansetron HCl (Zofran Inj*) 4 mg IV Q4H PRN PRN Reason: NAUSEA Last Admin: 12/04/16 16:08 Dose: 4 mg Pramipexole Dihydrochloride (Mirapex Tab*) 3 mg PO BEDTIME [facility] Last Admin: 12/08/16 21:52 Dose: 3 mg Pregabalin (Lyrica Cap(*)) 50 mg PO TID [facility] Last Admin: 12/09/16 08:52 Dose: 50 mg Senna (Senokot Tab*) 1 tab PO DAILY PRN PRN Reason: CONSTIPATION Last Admin: 12/09/16 08:53 Dose: 1 tab Spironolactone (Aldactone Tab*) 25 mg PO DAILY [facility] Last Admin: 12/09/16 08:52 Dose: 25 mg Tiotropium [place] (Spiriva Cap.Inh*) 1 cap INH DAILY [facility] Last Admin: 12/09/16 08:53 Dose: 1 cap.inh Torsemide (Demadex*) 20 mg PO DAILY [facility] Last Admin: 12/09/16 08:53 Dose: 20 mg Tramadol HCl (Ultram*) 50 mg PO BEDTIME PRN PRN Reason: PAIN Last Admin: 12/05/16 21:36 Dose: 50 mg Tramadol HCl (Ultram*) 100 mg PO Q6H PRN PRN Reason: PAIN Last Admin: 12/09/16 10:36 Dose: 100 mg Vital Signs: Temp Pulse Resp BP Pulse Ox 98.8 F 72 20 109/68 100 12/09/16 07:00 12/09/16 07:00 12/09/16 07:00 12/09/16 07:00 12/09/16 07:00 Appearance: Chronically ill appearing and slightly fatigued middle aged female in [facility]. Accompanied by her . Neck: NL Appearance and Movements; NL JVP Respiratory: Symmetrical Chest Expansion and Respiratory Effort, - - few rhonchi and fine crackles noted on exam Cardiovascular: NL Sounds; No Murmurs; No JVD, RRR Abdominal: NL Sounds; No Tenderness; No Distention Extremities: No Edema Skin: No Rash or Ulcers Neurological: Alert and Oriented x 3 Result Diagrams: 12/07/16 05:22 12/09/16 06:35 Additional Lab and Data: Intake & Output 12/07/16 12/08/16 12/09/16 12/10/16 06:59 06:59 06:59 06:59 Intake Total 987.5 826 670 Output Total 2250 1050 1250 Balance -1262.5 -224 -580 Weight 69.5 kg 68.4 kg 68.7 kg 68 kg Intake: Medicated IV 87.5 26 milrinone 87.5 26 Oral 900 800 670 Output: Urine 850 [place] 2250 1050 400 Diagnostic Imaging: Echo 12/01 - LVEF 30-35%, global hypokinesis Assess/Plan/Problems-Billing Assessment: Ms. Galarza is 56 yo female with acute decompensated systolic and diastolic CHF, improved with milrinone drip and IV diuresis - Patient Problems (1) Acute on chronic systolic (congestive) heart failure Comment: Patient has been transitioned back to oral torsemide Urine output is still good Cr climbing, likely cardiorenal BP has been limiting cardiac meds, isosorbide held this am Will reduce enalipril to 2.5 mg daily Candidate for epicardial lead placement in [place] as an outpatient, appointment scheduled for [place] 12/10 at 1300 (2) LELIA (acute kidney injury) Comment: She has stage III CKD at baseline Cr improved with milrinone, now trending up again Suspected cardiorenal syndrome Still good urine production, will continue to monitor (3) Anemia Comment: Transfused 2U PRBCs 12/04 Anemia likely due to CKD. (4) Peripheral vascular disease Comment: Pt had stenting to the L LE She has been on ASA and brilinta Both held for port placement ASA will be resumed, cont to hold brilinta in anticipation of epicardial lead placement (5) Tobacco abuse Comment: Motivated to quit (6) CAD (coronary artery disease) Comment: No complaints of chest pain. Her echo shows an EF of 30-35%. Continue lipitor and imdur Imdur has been limited due to poor BP last 2 days, will resume when possible ASA and brilinta held for power port insertion 12/08/16 ASA has been resumed, cont to hold Brilinta (7) COPD (chronic obstructive pulmonary disease) Comment: No signs of exacerbation at this time. Continue spiriva and dulera. (8) Type 1 diabetes mellitus Comment: Good glycemic control at this time Continue Basal/bolus coverage (9) Full code status Status and Disposition: Inpatient admission. Plan for dc tomorrow am ([place]) and she will travel directly to her appointment in [place]
[2016-12-09] MEDS: Isosorbide Mononitrate ER TAB* 30 MG PO SCH (11:41)
[2016-12-09] MEDS: Carvedilol TAB* 6.25 MG PO SCH ×2 (11:41→21:45)
[2016-12-09] MEDS: Enalapril TAB* 5 MG PO SCH ×2 (12:54→12:58)
[2016-12-09] MEDS: Atorvastatin* 80 MG TAB PO SCH (17:01)
--- NOTE | 2016-12-09 17:03 | PN ---
Subjective Date of Service: 12/09/16 - CC: SOB, abdominal distension Interval History: Breathing is good now, pain is better. Not urinating today and 600cc on ultrasound of the bladder. Medications Active Medications: Acetaminophen (Tylenol Tab*) 650 mg PO Q4H PRN PRN Reason: FEVER/PAIN Last Admin: 12/04/16 05:41 Dose: 650 mg Albuterol/Ipratropium (Duoneb Neb.Roxy*) 1 neb INH TID PRN PRN Reason: SHORTNESS OF BREATH Aspirin (Aspirin Low Dose Tab*) 81 mg PO DAILY [facility] Atorvastatin Calcium (Lipitor*) 80 mg PO QPM [facility] Last Admin: 12/08/16 18:17 Dose: 80 mg Carvedilol (Coreg Tab*) 6.25 mg PO BID [facility] Last Admin: 12/09/16 11:41 Dose: Not Given Dextrose (D50w Syringe 50 Ml*) 12.5 gm IV PUSH .FOR FS < 60 - SS PRN PRN Reason: FS < 60 Diphenhydramine HCl (Benadryl Po*) 25 mg PO Q4H PRN PRN Reason: RASH Last Admin: 12/05/16 15:25 Dose: 25 mg Docusate Sodium (Colace Cap*) 100 mg PO BID PRN PRN Reason: CONSTIPATION Last Admin: 12/07/16 21:16 Dose: 100 mg Enalapril Maleate (Vasotec Tab*) 2.5 mg PO DAILY [facility] Last Admin: 12/09/16 12:54 Dose: 2.5 mg Ferrous Gluconate (Fergon Tab*) 324 mg PO DAILY [facility] Last Admin: 12/09/16 08:53 Dose: 324 mg Gabapentin (Neurontin Cap(*)) 1,800 mg PO BEDTIME [facility] Last Admin: 12/08/16 21:51 Dose: 1,800 mg Heparin Sodium (Porcine) (Heparin Flush Picc/Ml/Cvc(*)) 0 ml IV FLUSH 0600, 1800 [facility] PRN Reason: Protocol Last Admin: 12/09/16 06:28 Dose: 2 ml Heparin Sodium (Porcine) (Heparin Vial(*)) 5,000 units SUBCUT Q8HR [facility] Last Admin: 12/09/16 14:44 Dose: 5,000 units Insulin Glargine (Lantus(*)) 30 units SUBCUT BEDTIME [facility] Last Admin: 12/08/16 22:07 Dose: 30 units Insulin Human Lispro (Humalog*) 0 units SUBCUT ACHS [facility] PRN Reason: Protocol Last Admin: 12/09/16 12:54 Dose: 6 units Isosorbide Mononitrate (Imdur Er Tab*) 30 mg PO DAILY [facility] Last Admin: 12/09/16 11:41 Dose: Not Given Magnesium Hydroxide (Milk Of Magnesia Liq*) 30 ml PO Q6H PRN PRN Reason: CONSTIPATION Magnesium Oxide (Magox 400 Tab*) 400 mg PO DAILY [facility] Last Admin: 12/09/16 08:53 Dose: 400 mg Morphine Sulfate (Morphine Inj (Syringe)*) 2 mg IV Q2H PRN PRN Reason: PAIN Last Admin: 12/08/16 06:14 Dose: 2 mg Nicotine (Nicotine Inhaler*) 10 mg INH Q2H PRN PRN Reason: CRAVINGS Ondansetron HCl (Zofran Inj*) 4 mg IV Q4H PRN PRN Reason: NAUSEA Last Admin: 12/04/16 16:08 Dose: 4 mg Polyethylene Glycol/Electrolytes (Miralax*) 17 gm PO 0800,2100 [facility] Pramipexole Dihydrochloride (Mirapex Tab*) 3 mg PO BEDTIME [facility] Last Admin: 12/08/16 21:52 Dose: 3 mg Pregabalin (Lyrica Cap(*)) 50 mg PO TID [facility] Last Admin: 12/09/16 14:42 Dose: 50 mg Senna (Senokot Tab*) 1 tab PO DAILY PRN PRN Reason: CONSTIPATION Last Admin: 12/09/16 08:53 Dose: 1 tab Spironolactone (Aldactone Tab*) 25 mg PO DAILY [facility] Last Admin: 12/09/16 08:52 Dose: 25 mg Tiotropium Montrose (Spiriva Cap.Inh*) 1 cap INH DAILY [facility] Last Admin: 12/09/16 08:53 Dose: 1 cap.inh Torsemide (Demadex*) 20 mg PO DAILY [facility] Last Admin: 12/09/16 08:53 Dose: 20 mg Tramadol HCl (Ultram*) 50 mg PO BEDTIME PRN PRN Reason: PAIN Last Admin: 12/05/16 21:36 Dose: 50 mg Tramadol HCl (Ultram*) 100 mg PO Q6H PRN PRN Reason: PAIN Last Admin: 12/09/16 10:36 Dose: 100 mg Objective Vital Signs: Temp Pulse Resp BP Pulse Ox 98.2 F 68 12 106/73 100 12/09/16 16:48 12/09/16 16:48 12/09/16 16:48 12/09/16 16:48 12/09/16 16:48 Oxygen Devices in Use Now: Nasal Cannula - 2L Appearance: chronically ill appearing, sitting up in bed, O2 on, appears comfortable. Eyes: PERRLA Ears/Nose/Mouth/Throat: Clear Oropharnyx Neck: Trachea Midline, No Thyroid Enlargement, Masses, - - + JVD but limited evaluation by endocarterectomy scars Respiratory: Symmetrical Chest Expansion and Respiratory Effort - crackles in the bases, R greater than left, occasional fine wheezing, improved c/w weekend. , - - Crackles in the L base and diminished BS 2/3 's up L lung, crackles very base of Right lung. Cardiovascular: RRR, - - RRR, distant. Abdominal: - - soft, mildly distended, non-tender, so appreciable change from Wednesday. Extremities: - - L foot s/p surgical changes, trace edema, warm. Skin: No Nodules or Sclerosis Neurological: Alert and Oriented x 3 Lines/Tubes/Other Access: Clean, Dry and Intact PICC Line Laboratory Results: 12/07/16 05:22 12/09/16 06:35 INR (Anticoag Therapy) 0.92 (0.89-1.11) 12/08/16 09:43 APTT 34.0 seconds (26.0-36.3) 12/01/16 16:23 Total Bilirubin 0.50 mg/dL (0.2-1.0) 12/01/16 16:23 AST 17 U/L (13-39) 12/01/16 16:23 ALT 10 U/L (7-52) 12/01/16 16:23 Alkaline Phosphatase 135 U/L (34-104) H 12/01/16 16:23 CK-MB (CK-2) 7.6 ng/mL (0.6-6.3) H 12/01/16 16:23 B-Natriuretic Peptide 489 pg/mL (-100) H 12/01/16 16:23 Total Protein 6.9 g/dL (6.4-8.9) 12/01/16 16:23 Albumin 3.3 g/dL (3.2-5.2) 12/01/16 16:23 Globulin 3.6 g/dL (2-4) 12/01/16 16:23 Albumin/Globulin Ratio 0.9 (1-3) L 12/01/16 16:23 TSH 1.31 mcIU/mL (0.34-5.60) 12/01/16 16:23 12/08/16 20:30 Troponin I 0.03 Diagnostic Imaging: Cath 03/2016: pRCA occluded, SVG-RCA patent, PDA stent patent, 80% small caliber RPL lesion too small for PCI pLAD occluded, ANAYA-LAD patent pLcx occluded, SVG-LCx patent LVEF 40% by LV gram, had LBBB at that time TTE 12/02/2016: Technically difficult study. LVEF severely reduced, restrictive filling pattern, moderate TR/MR CXR 12/07/16: cephalization, Left pleural effusion, no significantly changed from admission. Assessment/Plan Michelle Galarza is a 56 year old woman with a history of IDDM (she states longstanding type 1), tobacco use, anemia, ICM/systolic HF, ICD, LBBB had failed LV lead placement at [facility] Dr. Quiñonez with consideration epicardial lead , recent CHF admission, history of diabetic foot ulcers s/p multiple L foot amputation, CVA, carotid artery surgery, high grade left subclavian stenosis admitted with low output CHF with WRF and little UOP with diuretics now improving on inotropes. BP has been low normal and hemoglobin < 8. Has had 17 pound weight gain since 07/2016/ Now s/p Milranon gtt and IV lasix, bumex with progressive diuresis and if weights believed, 15 lb weight loss since admission. Breathing has improved, evidence of urinary obstruction at the level of the urethra. Points of Discussion: CHF: Improved for now, at risk for recurrence. Continue Coreg, Vasotec, aldactone and demadex. LBBB and CM: Continue with plans for epicardial HELP DESK ASSISTANT at [facility], getting seen tomorrow. Will need f/u with Dr. Johnson, her usual field evidence technician. COPD: Smoking cessation essential. Continue O2 and inhalers, spiriva via medicine service.
[2016-12-09] MEDS: Pramipexole TAB* 0.5 MG PO SCH (21:46)
[2016-12-09] MEDS: Insulin GLARGINE(*) 1 UNITS UNIT SUBCUT SCH (21:47)
[2016-12-09] MEDS: Gabapentin CAP(*) 300 MG PO SCH (21:47)
[2016-12-09] MEDS: Polyethylene Glycol 3350* 17 GM PACKET PO SCH (21:50)
[2016-12-10] MEDS: traMADol TAB* 50 MG PO PRN (03:44)
[2016-12-10] MEDS: Heparin VIAL(*) 5000 UNITS/ML VIAL (FIVE THOUSAND) SUBCUT SCH (05:44)
[2016-12-10 06:23] LABS: Hematocrit 34 % (35-47); Mean Corpuscular HGB Conc 33 g/dl (31-36); Mean Corpuscular Hemoglobin 30 pg (27-31); Mean Corpuscular Volume 90 fL (80-97); Mean Platelet Volume 9 um3 (7.4-10.4); Red Blood Count 3.73 10^6/ul (4.0-5.4); Red Cell Distribution Width 17 % (10.5-15); White Blood Count 10.4 10^3/ul (3.5-10.8)
[2016-12-10 06:33] LABS: BUN/Creatinine Ratio 37.1 (8-20); Calcium 9.2 mg/dL (8.6-10.3); EGFR African American 29.2 (>60); EGFR Non-African American 22.7 (>60); Potassium 4.4 mmol/L (3.5-5.0)
[2016-12-10 07:53] VITALS: BP 108/66
[2016-12-10] MEDS: Insulin LISPRO* 1 UNITS UNIT SUBCUT SCH (08:09)
[2016-12-10] MEDS: Carvedilol TAB* 6.25 MG PO SCH (08:10)
[2016-12-10] MEDS: Magnesium Oxide TAB* 400 MG PO SCH (08:10)
[2016-12-10] MEDS: Isosorbide Mononitrate ER TAB* 30 MG PO SCH (08:10)
[2016-12-10] MEDS: Ferrous Gluconate TAB* 324 MG TAB PO SCH (08:10)
[2016-12-10] MEDS: Spironolactone TAB* 25 MG PO SCH (08:10)
[2016-12-10] MEDS: Torsemide TAB* 20 MG PO SCH (08:11)
[2016-12-10] MEDS: Enalapril TAB* 5 MG PO SCH (08:11)
[2016-12-10] MEDS: Polyethylene Glycol 3350* 17 GM PACKET PO SCH (08:17)
[2016-12-10] MEDS: Pregabalin CAP(*) 50 MG PO SCH (08:17)
[2016-12-10] MEDS ORDERED: Aspirin Low Dose CHEW TAB* 81 MG PO SCH (09:00)
--- NOTE | 2016-12-10 09:15 | PN ---
Hospitalist Progress Note Patient is scheduled for dc this am. She will proceed directly to her cardiology appointment in [place] scheduled for 1300 this afternoon. She had no acute concerns overnight. Bladder scan this am shows no post void residual. Patient is fatigued but denies CP or severe dyspnea. Lungs are mildly rhonchorous but no crackles. No LE edema. Please see discharge summary dictated 12/09/16 for details. No changes overnight.
[2016-12-10] MEDS: Tiotropium CAP.INH* CAP.INH/18 MCG INH SCH (09:55)
--- NOTE | 2016-12-10 10:02 | DS ---
DISCHARGE SUMMARY: DATE OF ADMISSION: 12/01/16 DATE OF DISCHARGE: 12/10/16 PRIMARY CARE PROVIDER: Dr. Moises Valdes. CONSULTING CARDIOLOGISTS: Dr. Yoan Pepper and Dr. Cande Amado. PRIMARY FISH BIN TENDER: Dr. Johnson. DISCHARGING PROVIDER: OSCAR Alonso. SUPERVISING PHYSICIAN: Dr. Bubba Hess. * (dictated by OSCAR Alonso) PRIMARY DISCHARGE DIAGNOSES: 1. Acute exacerbation of chronic systolic heart failure. 2. Anemia of chronic disease, status post transfusion of 2 units of packed red blood cells. 3. Cardiorenal syndrome. 4. Poor IV access with port placement in right IJ, 12/08/16. SECONDARY DISCHARGE DIAGNOSES: 1. Longstanding type 1 diabetes. 2. Stage III chronic kidney disease. 3. Peripheral vascular disease. 4. Chronic obstructive pulmonary disease without acute exacerbation. 5. History of cerebrovascular accident. 6. Restless leg syndrome. 7. Hypertension. 8. Hyperlipidemia. 9. Coronary artery disease. DISCHARGE MEDICATIONS: 1. DuoNeb inhaled 3 times daily as needed for shortness of breath. 2. Aspirin 81 mg p.o. daily. 3. Atorvastatin 80 mg p.o. daily. 4. Carvedilol 3.125 mg p.o. b.i.d. 5. Enalapril 2.5 mg p.o. daily. 6. Repatha 140 mg subcu daily. 7. Ferrous gluconate 324 mg p.o. daily. 8. Gabapentin 1800 mg p.o. at bedtime. 9. Lantus 63 units at bedtime. 10. Humalog on a sliding scale with meals. 11. Isosorbide mononitrate 30 mg p.o. daily. 12. Magnesium oxide 400 mg p.o. daily. 13. Metolazone 5 mg p.o. daily. 14. Dulera two puffs inhaled twice daily. 15. Nitro 0.4 mg sublingual q. 5 minutes as needed for chest pain. 16. Mirapex 3 to 5 mg p.o. at bedtime. 17. Lyrica 50 mg p.o. b.i.d. 18. Spironolactone 25 mg p.o. daily. 19. Brilinta 90 mg p.o. b.i.d. - of note, this was held during the latter part of her hospital stay for a port placement and continuing to be held in anticipation of epicardial lead placement. 20. Spiriva one capsule inhaled daily. 21. Torsemide 20 mg p.o. daily. 22. Tramadol 50 to 100 mg p.o. daily. MEDICATION CHANGES: 1. Decrease dose of carvedilol. 2. Decrease dose of enalapril. 3. Start spironolactone. HOSPITAL IMAGIN. Chest x-ray, 12/01/16, shows some mild vascular congestion. 2. Chest x-ray, 12/06/16, shows mild vascular congestion without significant change from prior study. 3. Lower extremity Doppler shows no evidence of DVT bilaterally. 4. EKG shows sinus rhythm with a rate of about 93 beats per minute, LVH by voltage criteria and left bundle branch block. 5. Transthoracic echocardiogram, 12/01/16, shows left ventricular ejection fraction at 30% to 35% with global hypokinesis, evidence of borderline to mild diastolic dysfunction, normal right ventricular function, moderate mitral regurg , and [id number] tricuspid regurg noted. When compared to prior echo from January 2016, EF at that time was 40% to 45% and that has fallen to current measurement. HOSPITAL COURSE: This is a 56-year-old female with an unfortunate medical history which includes chronic systolic heart failure as well as longstanding type 1 diabetes, chronic kidney disease, peripheral vascular disease, COPD, history of prior CVA, hypertension, hyperlipidemia, and coronary artery disease who presented to the emergency department with complaints of shortness of breath and lower extremity swelling. The patient had been complaining of symptoms lasting for several days prior to presenting to the emergency department. The patient was in contact with her primary fur tailor, Dr. Johnson, who had been increasing her torsemide and Zaroxolyn; but, unfortunately , despite this, she had very little urine output at home and was increasingly short of breath. The patient was subsequently admitted to the hospital for management of her CHF exacerbation. Despite adequate attempts at IV diuresis, the patient continued to have little urine output and she was subsequently transferred to the ICU for a milrinone drip. The patient had excellent urinary output with this and diuresed approximately 7 kg during her hospital stay. Upon admission, creatinine was 1.36 and ronel to 2.5 with attempts at diuresis. Her creatinine improved to about 1.85 when milrinone was initiated. Milrinone drip was discontinued on 12/07/16 and creatinine began to rise again. Urine output remained appropriate, however, and the patient returned to her usual oral torsemide doses. The patient was noted to be hypotensive through most of her hospital stay which limited some of her cardiac medications. Dosage of her enalapril and carvedilol were decreased. She was started on spironolactone as well. Of note, the patient was anemic during her hospital stay, which is not a new finding for her. This is normocytic and likely due to her chronic disease state , most likely her chronic kidney disease. Hemoglobin dropped as low as 7.8 g/ dL and patient was transfused 2 units of packed red blood cells on 12/04/16 with good response. Hemoglobin last checked on 12/07/16 and was measured at 12 g/dL. The patient was felt to be an appropriate candidate for epicardial lead placement and contact was made from Dr. Villegas to Cardiology at [facility] where the patient has been previously established for her prior pacemaker placement. Arrangements were made for the patient to complete an outpatient consultation on , 12/10/16. DISPOSITION: The patient is being discharged to home. She will proceed directly to her appointment at [facility]. The patient may be unable to wait for an outpatient procedure and could foresee needing potential hospitalization at [facility]. She is stable at the time of discharge with medications as outlined above, but her current cardiac status is fairly tenuous. The patient should follow up with her primary fur tailor, Dr. Johnson, in regards to this hospital admission and subsequent appointment at [facility] following discharge, as well as her primary care provider. OSCAR ALONSO CC: Dr. Johnson; Dr. Moises Valdes* [id number]/[facility] #: [id number] [place]NER
--- NOTE | 2016-12-25 12:25 | ED ---
Darren Wallace Anna, scribed for Riccardo Morales MD on 12/01/16 at 1632 . Lower Extremity - HPI Summary HPI Summary: Patient is a 56 y/o female coming to [facility] presenting with lower leg edema that began four days ago. She additionally has experienced SOB and upper back pain for the same length of time. She has felt nausea and an increased appetite. Denies CP. SOB is exacerbated by lying down, and her back pain is exacerbated by deep breaths. Her diuretics were recently increased in dose, but she reports this has caused her to gain 26 pounds. She describes the severity of her pain as 6/10. Her history is significant for CAD, DM, PE, and kidney disease. - History of Current Complaint Chief Complaint: EDShortnessOfBreath Stated Complaint: DIFF BREATHING Time Seen by Provider: 12/01/16 16:23 Hx Obtained From: Patient Pain Intensity: 6 - Allergies/Home Medications Allergies/Adverse Reactions: Allergies Allergy/AdvReac Type Severity Reaction Status Date / Time Cephalosporins Allergy Severe Shortness Verified 12/17/16 09:08 of Breath Penicillins Allergy Intermediate Hives Verified 12/17/16 09:08 Sulfa Drugs Allergy Intermediate Hives Verified 12/17/16 09:08 Bee Venom Allergy Swelling Verified 12/17/16 09:08 Of Face,Lips,& Throat Diphenhydramine Allergy Difficulty Verified 12/17/16 09:08 Breathing Meropenem Allergy Diarrhea Verified 12/17/16 09:08 Vancomycin Allergy Hives Verified 12/17/16 09:08 Codeine AdvReac Intermediate Vomiting Verified 12/17/16 09:08 bee sting Allergy Severe Hives, Uncoded 12/17/16 09:08 CLOSES UP THROAT PMH/Surg Hx/FS Hx/Imm Hx Endocrine/Hematology History: Reports: Hx Blood Transfusions, Hx Diabetes, Hx Thyroid Disease - Goiter, Hx Anemia Denies: Hx Systemic Lupus Erythematosus Cardiovascular History: Reports: Hx Angioplasty, Hx Cardiac Arrest, Hx Congestive Heart Failure, Hx Coronary Artery Disease, Hx Hypercholesterolemia, Hx Hypertension, Hx Myocardial Infarction, Hx Pacemaker/ICD - 2016 - ICD, Hx Peripheral Vascular Disease, Hx Valvular Heart Disease - "Leaky valve", Other Cardiovascular Problems/Disorders - leaky valve Denies: Hx Angina Respiratory History: Reports: Hx Asthma, Hx Chronic Bronchitis, Hx Chronic Obstructive Pulmonary Disease (COPD), Hx Pneumonia, Hx Pulmonary Edema, Hx Pulmonary Embolism, Hx Seasonal Allergies, Hx Sleep Apnea, Other Respiratory Problems/Disorders - respiratory failure, uses home oxygen GI History: Reports: Hx Gall Bladder Disease Denies: Hx Ulcer, Other GI Disorders History: Reports: Hx Chronic Renal Failure - Stage III, Other Problems/ Disorders - 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 Denies: Hx Dialysis, Hx Renal Disease Musculoskeletal History: Reports: Hx Arthritis, Hx Back Problems - h/o cervical laminectomy x3, Hx Fibromyalgia, Hx Osteoporosis, Hx Scoliosis, Other Musculoskeletal History - osteomyelitis left great toe Denies: Hx Rheumatoid Arthritis Sensory History: Reports: Hx Cataracts, Hx Contacts or Glasses, Hx Vision Problem, Hx Hearing Problem - R ear numbness and decreased hearing r/t TIA per pt Denies: Hx Hearing Aid Opthamlomology History: Reports: Hx Cataracts, Hx Contacts or Glasses, Hx Vision Problem Neurological History: Reports: Hx Migraine, Hx Nerve Disease - Diabetic Periperal Neuropathy, Hx Seizures, Hx Transient Ischemic Attacks (TIA), Other Neuro Impairments/Disorders - diabetic neuropathy Denies: Hx Dementia Psychiatric History: Reports: Hx Depression Denies: Hx Panic Disorder - Cancer History Hx Chemotherapy: No - Surgical History Surgery Procedure, Year, and Place: CARDIAC STENTS(4 PROMUS AND 1 VISIPRO PLACED AT [facility] – [place]-1.5T ONLY DUE TO CONDITIONAL STATUS OF MAX YOUNGT. GRAD. 720), TRIPLE BYPASS, BILATERAL CAROTID ENDARTERECTOMY ,LAP ADDY,HYSTERECTOMY,LEFT GREAT TOE AMPUTATION,APPY, T&A ,STERNAL WIRES ,LUMBAR SPINE FUSION,CSP FUSION , C SECTION,LEFT FOOT PARTIALLY AMPUTATED-GALLBLADDER REMOVED-BACK SURGERY-LASER SURGERY Hx Anesthesia Reactions: No - Immunization History Date of Tetanus Vaccine: utd per pt Date of Influenza Vaccine: utd per pt Infectious Disease History: No Infectious Disease History: Reports: Hx of Known/Suspected MRSA Denies: Hx Clostridium Difficile, Hx Hepatitis, Hx Human Immunodeficiency Virus (HIV), Hx Shingles, Hx Tuberculosis, Hx Known/Suspected VRE, Hx Known/ Suspected VRSA, History Other Infectious Disease, Traveled Outside the [place] in Last 30 Days - Family History Known Family History: Positive: Unknown - Pt is adopted and has no knowledge of her family history. - Social History Alcohol Use: None Substance Use Type: Reports: None Hx Tobacco Use: Yes Smoking Status (MU): Light Every Day Tobacco Smoker Type: Cigarettes Amount Used/How Often: 5 cigarettes per day Length of Time of Smoking/Using Tobacco: 30 years Have You Smoked in the Last Year: Yes Review of Systems Positive: Other - Increased appetite, unintentional weight gain Negative: Chest Pain Positive: Shortness Of Breath Positive: Nausea Positive: Myalgia, Edema All Other Systems Reviewed And Are Negative: Yes Physical Exam Triage Information Reviewed: Yes Vital Signs On Initial Exam: Initial Vitals Temp Pulse Resp BP Pulse Ox 98.6 F 93 20 133/81 98 12/01/16 16:07 12/01/16 16:07 12/01/16 16:07 12/01/16 16:07 12/01/16 16:07 Vital Signs Reviewed: Yes Appearance: Positive: Well-Appearing, No Pain Distress Skin: Positive: Warm, Skin Color Reflects Adequate Perfusion, Dry Head/Face: Positive: Normal Head/Face Inspection Eyes: Positive: EOMI, JONI ENT: Positive: Normal ENT inspection Neck: Positive: Supple, Nontender Respiratory/Lung Sounds: Positive: Other - Poor air movement bilaterally. Mild respiratory distress. Cardiovascular: Positive: RRR, Leg Edema Left, Leg Edema Right Abdomen Description: Positive: Nontender, Soft Bowel Sounds: Positive: Present Musculoskeletal: Positive: Strength/ROM Intact, Other - Left foot amputated Neurological: Positive: Normal, Sensory/Motor Intact, Alert, Oriented to Person Place, Time Psychiatric: Positive: Affect/Mood Appropriate Diagnostics - Vital Signs Vital Signs Temp Pulse Resp BP Pulse Ox 12/01/16 16:07 98.6 F 93 20 133/81 98 - Laboratory Lab Results: Lab Results 12/01/16 12/01/16 12/01/16 Range/Units 16:23 16:23 16:23 WBC 10.7 (3.5-10.8) 10^3/ul RBC 3.18 L (4.0-5.4) 10^6/ul Hgb 9.7 L (12.0-16.0) g/dl Hct 30 L (35-47) % MCV 93 (80-97) fL MCH 30 (27-31) pg MCHC 33 (31-36) g/dl RDW 16 H (10.5-15) % Plt Count 294 (150-450) 10^3/ul MPV 9 (7.4-10.4) um3 Neut % (Auto) 77.0 (38-83) % Lymph % (Auto) 15.8 L (25-47) % [place] % (Auto) 5.2 (1-9) % Eos % (Auto) 1.3 (0-6) % Baso % (Auto) 0.7 (0-2) % Absolute Neuts (auto) 8.2 H (1.5-7.7) 10^3/ul Absolute Lymphs (auto) 1.7 (1.0-4.8) 10^3/ul Absolute Monos (auto) 0.6 (0-0.8) 10^3/ul Absolute Eos (auto) 0.1 (0-0.6) 10^3/ul Absolute Basos (auto) 0.1 (0-0.2) 10^3/ul Absolute Nucleated RBC 0.01 10^3/ul Nucleated RBC % 0 INR (Anticoag Therapy) 0.88 L (0.89-1.11) APTT 34.0 (26.0-36.3) seconds D-Dimer, Quantitative 543 H (Less Than 230) ng/mL Sodium 137 (133-145) mmol/L Potassium 4.7 (3.5-5.0) mmol/L Chloride 104 (101-111) mmol/L Carbon Dioxide 29 (22-32) mmol/L Anion Gap 4 (2-11) mmol/L BUN 51 H (6-24) mg/dL Creatinine 1.36 H (0.51-0.95) mg/dL Est GFR ( Amer) 51.9 (>60) Est GFR (Non-Af Amer) 40.4 (>60) BUN/Creatinine Ratio 37.5 H (8-20) Glucose 94 (70-100) mg/dL POC Glucose (mg/dL) (74-106) mg/dL Lactic Acid (0.5-2.0) mmol/L Calcium 9.3 (8.6-10.3) mg/dL Magnesium 2.6 (1.9-2.7) mg/dL Total Bilirubin 0.50 (0.2-1.0) mg/dL AST 17 (13-39) U/L ALT 10 (7-52) U/L Alkaline Phosphatase 135 H (34-104) U/L Total Creatine Kinase 237 H (10-223) U/L CK-MB (CK-2) 7.6 H (0.6-6.3) ng/mL Troponin I 0.03 (<0.04) ng/mL C-Reactive Protein 26.26 H (< 5.00) mg/L B-Natriuretic Peptide ( - 100) pg/mL Total Protein 6.9 (6.4-8.9) g/dL Albumin 3.3 (3.2-5.2) g/dL Globulin 3.6 (2-4) g/dL Albumin/Globulin Ratio 0.9 L (1-3) Lipase 18 (11.0-82.0) U/L TSH 1.31 (0.34-5.60) mcIU/mL Urine Color Urine Appearance Urine pH (5-9) Ur Specific Godfrey (1.010-1.030) Urine Protein (Negative) Urine Ketones (Negative) Urine Blood (Negative) Urine Nitrate (Negative) Urine Bilirubin (Negative) Urine Urobilinogen (Negative) Ur Leukocyte Esterase (Negative) Urine WBC (Auto) (Absent) Urine RBC (Auto) (Absent) Ur Squamous Epith Cells (Absent) Urine Bacteria (Absent) Hyaline Casts (Absent) Urine Glucose (Negative) 12/01/16 12/01/16 12/01/16 Range/Units 16:23 16:23 21:50 WBC (3.5-10.8) 10^3/ul RBC (4.0-5.4) 10^6/ul Hgb (12.0-16.0) g/dl Hct (35-47) % MCV (80-97) fL MCH (27-31) pg MCHC (31-36) g/dl RDW (10.5-15) % Plt Count (150-450) 10^3/ul MPV (7.4-10.4) um3 Neut % (Auto) (38-83) % Lymph % (Auto) (25-47) % [place] % (Auto) (1-9) % Eos % (Auto) (0-6) % Baso % (Auto) (0-2) % Absolute Neuts (auto) (1.5-7.7) 10^3/ul Absolute Lymphs (auto) (1.0-4.8) 10^3/ul Absolute Monos (auto) (0-0.8) 10^3/ul Absolute Eos (auto) (0-0.6) 10^3/ul Absolute Basos (auto) (0-0.2) 10^3/ul Absolute Nucleated RBC 10^3/ul Nucleated RBC % INR (Anticoag Therapy) (0.89-1.11) APTT (26.0-36.3) seconds D-Dimer, Quantitative (Less Than 230) ng/mL Sodium (133-145) mmol/L Potassium (3.5-5.0) mmol/L Chloride (101-111) mmol/L Carbon Dioxide (22-32) mmol/L Anion Gap (2-11) mmol/L BUN (6-24) mg/dL Creatinine (0.51-0.95) mg/dL Est GFR ( Amer) (>60) Est GFR (Non-Af Amer) (>60) BUN/Creatinine Ratio (8-20) Glucose (70-100) mg/dL POC Glucose (mg/dL) (74-106) mg/dL Lactic Acid 1.1 (0.5-2.0) mmol/L Calcium (8.6-10.3) mg/dL Magnesium (1.9-2.7) mg/dL Total Bilirubin (0.2-1.0) mg/dL AST (13-39) U/L ALT (7-52) U/L Alkaline Phosphatase (34-104) U/L Total Creatine Kinase (10-223) U/L CK-MB (CK-2) (0.6-6.3) ng/mL Troponin I (<0.04) ng/mL C-Reactive Protein (< 5.00) mg/L B-Natriuretic Peptide 489 H ( - 100) pg/mL Total Protein (6.4-8.9) g/dL Albumin (3.2-5.2) g/dL Globulin (2-4) g/dL Albumin/Globulin Ratio (1-3) Lipase (11.0-82.0) U/L TSH (0.34-5.60) mcIU/mL Urine Color Straw Urine Appearance Clear Urine pH 5.0 (5-9) Ur Specific Godfrey 1.009 L (1.010-1.030) Urine Protein 2+(100 mg/dl) H (Negative) Urine Ketones Negative (Negative) Urine Blood 1+ H (Negative) Urine Nitrate Negative (Negative) Urine Bilirubin Negative (Negative) Urine Urobilinogen Negative (Negative) Ur Leukocyte Esterase Trace H (Negative) Urine WBC (Auto) 1+(6-10/hpf) H (Absent) Urine RBC (Auto) 1+(3-5/hpf) H (Absent) Ur Squamous Epith Cells Present H (Absent) Urine Bacteria 1+ H (Absent) Hyaline Casts Present H (Absent) Urine Glucose Negative (Negative) 12/01/16 12/02/16 12/02/16 Range/Units 22:03 07:29 11:27 WBC (3.5-10.8) 10^3/ul RBC (4.0-5.4) 10^6/ul Hgb (12.0-16.0) g/dl Hct (35-47) % MCV (80-97) fL MCH (27-31) pg MCHC (31-36) g/dl RDW (10.5-15) % Plt Count (150-450) 10^3/ul MPV (7.4-10.4) um3 Neut % (Auto) (38-83) % Lymph % (Auto) (25-47) % [place] % (Auto) (1-9) % Eos % (Auto) (0-6) % Baso % (Auto) (0-2) % Absolute Neuts (auto) (1.5-7.7) 10^3/ul Absolute Lymphs (auto) (1.0-4.8) 10^3/ul Absolute Monos (auto) (0-0.8) 10^3/ul Absolute Eos (auto) (0-0.6) 10^3/ul Absolute Basos (auto) (0-0.2) 10^3/ul Absolute Nucleated RBC 10^3/ul Nucleated RBC % INR (Anticoag Therapy) (0.89-1.11) APTT (26.0-36.3) seconds D-Dimer, Quantitative (Less Than 230) ng/mL Sodium (133-145) mmol/L Potassium (3.5-5.0) mmol/L Chloride (101-111) mmol/L Carbon Dioxide (22-32) mmol/L Anion Gap (2-11) mmol/L BUN (6-24) mg/dL Creatinine (0.51-0.95) mg/dL Est GFR ( Amer) (>60) Est GFR (Non-Af Amer) (>60) BUN/Creatinine Ratio (8-20) Glucose (70-100) mg/dL POC Glucose (mg/dL) 78 83 122 H (74-106) mg/dL Lactic Acid (0.5-2.0) mmol/L Calcium (8.6-10.3) mg/dL Magnesium (1.9-2.7) mg/dL Total Bilirubin (0.2-1.0) mg/dL AST (13-39) U/L ALT (7-52) U/L Alkaline Phosphatase (34-104) U/L Total Creatine Kinase (10-223) U/L CK-MB (CK-2) (0.6-6.3) ng/mL Troponin I (<0.04) ng/mL C-Reactive Protein (< 5.00) mg/L B-Natriuretic Peptide ( - 100) pg/mL Total Protein (6.4-8.9) g/dL Albumin (3.2-5.2) g/dL Globulin (2-4) g/dL Albumin/Globulin Ratio (1-3) Lipase (11.0-82.0) U/L TSH (0.34-5.60) mcIU/mL Urine Color Urine Appearance Urine pH (5-9) Ur Specific Godfrey (1.010-1.030) Urine Protein (Negative) Urine Ketones (Negative) Urine Blood (Negative) Urine Nitrate (Negative) Urine Bilirubin (Negative) Urine Urobilinogen (Negative) Ur Leukocyte Esterase (Negative) Urine WBC (Auto) (Absent) Urine RBC (Auto) (Absent) Ur Squamous Epith Cells (Absent) Urine Bacteria (Absent) Hyaline Casts (Absent) Urine Glucose (Negative) 12/02/16 Range/Units 16:18 WBC (3.5-10.8) 10^3/ul RBC (4.0-5.4) 10^6/ul Hgb (12.0-16.0) g/dl Hct (35-47) % MCV (80-97) fL MCH (27-31) pg MCHC (31-36) g/dl RDW (10.5-15) % Plt Count (150-450) 10^3/ul MPV (7.4-10.4) um3 Neut % (Auto) (38-83) % Lymph % (Auto) (25-47) % [place] % (Auto) (1-9) % Eos % (Auto) (0-6) % Baso % (Auto) (0-2) % Absolute Neuts (auto) (1.5-7.7) 10^3/ul Absolute Lymphs (auto) (1.0-4.8) 10^3/ul Absolute Monos (auto) (0-0.8) 10^3/ul Absolute Eos (auto) (0-0.6) 10^3/ul Absolute Basos (auto) (0-0.2) 10^3/ul Absolute Nucleated RBC 10^3/ul Nucleated RBC % INR (Anticoag Therapy) (0.89-1.11) APTT (26.0-36.3) seconds D-Dimer, Quantitative (Less Than 230) ng/mL Sodium (133-145) mmol/L Potassium (3.5-5.0) mmol/L Chloride (101-111) mmol/L Carbon Dioxide (22-32) mmol/L Anion Gap (2-11) mmol/L BUN (6-24) mg/dL Creatinine (0.51-0.95) mg/dL Est GFR ( Amer) (>60) Est GFR (Non-Af Amer) (>60) BUN/Creatinine Ratio (8-20) Glucose (70-100) mg/dL POC Glucose (mg/dL) 110 H (74-106) mg/dL Lactic Acid (0.5-2.0) mmol/L Calcium (8.6-10.3) mg/dL Magnesium (1.9-2.7) mg/dL Total Bilirubin (0.2-1.0) mg/dL AST (13-39) U/L ALT (7-52) U/L Alkaline Phosphatase (34-104) U/L Total Creatine Kinase (10-223) U/L CK-MB (CK-2) (0.6-6.3) ng/mL Troponin I (<0.04) ng/mL C-Reactive Protein (< 5.00) mg/L B-Natriuretic Peptide ( - 100) pg/mL Total Protein (6.4-8.9) g/dL Albumin (3.2-5.2) g/dL Globulin (2-4) g/dL Albumin/Globulin Ratio (1-3) Lipase (11.0-82.0) U/L TSH (0.34-5.60) mcIU/mL Urine Color Urine Appearance Urine pH (5-9) Ur Specific Godfrey (1.010-1.030) Urine Protein (Negative) Urine Ketones (Negative) Urine Blood (Negative) Urine Nitrate (Negative) Urine Bilirubin (Negative) Urine Urobilinogen (Negative) Ur Leukocyte Esterase (Negative) Urine WBC (Auto) (Absent) Urine RBC (Auto) (Absent) Ur Squamous Epith Cells (Absent) Urine Bacteria (Absent) Hyaline Casts (Absent) Urine Glucose (Negative) Result Diagrams: 12/10/16 05:50 12/10/16 05:50 Lab Statement: Any lab studies that have been ordered have been reviewed, and results considered in the medical decision making process. - Radiology CXR Xray Interpretation: Positive (See Comments) Radiology Interpretation Completed By: Radiologist - EKG 1647 Cardiac Rate: NL - 93 bpm EKG Rhythm: Sinus Rhythm Ectopy: None EKG Interpretation: LBBB Lower Extremity Course/Dx - Diagnoses Provider Diagnoses: CHF (congestive heart failure) Discharge - Discharge Plan Condition: Stable Disposition: ADMITTED TO [facility] documentation as recorded by the Darren sherwood Anna accurately reflects the service I personally performed and the decisions made by , Riccadro Morales MD.
== END 2016-12-10 10:15 | disposition home or self-care (01) | DRG 291 ==
LOC: ED 16:03 → MEDTELE 19:39 → OBSVTOIN 12-02 17:39 → ICU 12-03 10:50 → MEDTELE 12-09 12:11
PROVIDERS: ADMIT Internal Medicine; ATTEND Hospitalist
PROC: 30233N1 Transfusion of Nonautologous Red Blood Cells into Peripheral Vein, Percutaneous Approach (ICD-10-PCS; principal; 2016-12-03)
PROC: 05HM33Z Insertion of Infusion Device into Right Internal Jugular Vein, Percutaneous Approach (ICD-10-PCS; 2016-12-08)
DX: I13.0 Hypertensive heart and chronic kidney disease with heart failure and stage 1 through stage 4 chronic kidney disease, or unspecified chronic kidney disease (principal); I50.43 Acute on chronic combined systolic (congestive) and diastolic (congestive) heart failure; I95.9 Hypotension, unspecified; R34 Anuria and oliguria; E10.22 Type 1 diabetes mellitus with diabetic chronic kidney disease; E10.51 Type 1 diabetes mellitus with diabetic peripheral angiopathy without gangrene; N17.9 Acute kidney failure, unspecified; N18.3 Chronic kidney disease, stage 3 (moderate); Z95.1 Presence of aortocoronary bypass graft; D63.8 Anemia in other chronic diseases classified elsewhere; J44.9 Chronic obstructive pulmonary disease, unspecified; Z86.73 Personal history of transient ischemic attack (TIA), and cerebral infarction without residual deficits; G25.81 Restless legs syndrome; E78.5 Hyperlipidemia, unspecified; I25.10 Atherosclerotic heart disease of native coronary artery without angina pectoris; Z79.82 Long term (current) use of aspirin; Z79.4 Long term (current) use of insulin; I44.7 Left bundle-branch block, unspecified; I08.1 Rheumatic disorders of both mitral and tricuspid valves; T44.7X5A Adverse effect of beta-adrenoreceptor antagonists, initial encounter; Z88.0 Allergy status to penicillin; Z88.8 Allergy status to other drugs, medicaments and biological substances; Z88.2 Allergy status to sulfonamides; Z88.5 Allergy status to narcotic agent; Z91.030 Bee allergy status; F17.210 Nicotine dependence, cigarettes, uncomplicated; Z86.14 Personal history of Methicillin resistant Staphylococcus aureus infection; J45.909 Unspecified asthma, uncomplicated; Z89.432 Acquired absence of left foot; Z95.810 Presence of automatic (implantable) cardiac defibrillator; R14.0 Abdominal distension (gaseous); M79.89 Other specified soft tissue disorders; E87.5 Hyperkalemia; E10.65 Type 1 diabetes mellitus with hyperglycemia
CPT/HCPCS: 36415; 36561; 71010; 76937; 77001; 80048; 80053; 81003; 81015; 82550; 82553; 82607; 82728; 83540; 83550; 83605; 83690; 83735; 83880; 84443; 84466; 84484; 85014; 85018; 85025; 85027; 85379; 85610; 85730; 86078; 86140; 86850; 86900; 86901; 86922; 87086; 93005; 93306; 93970; 94640; 99406; A9270-GY; C1751; C1788; J1160; J1642; J1644; J1940; J2250; J2260; J2270; J2405; J3010; P9040

== ENCOUNTER 2017-04-25 14:48 | Inpatient (IN) | payer MEDICARE, MEDICAID ==
[2017-04-25] MEDS ORDERED: NS 0.9% 1000 ML* 1,000 ML IV ONE (15:17)
[2017-04-25] MEDS ORDERED: Acetaminophen TAB* 325 MG PO ONE (15:19)
[2017-04-25 15:44] LABS: Hematocrit 32 % (35-47); Hemoglobin 10.2 g/dl (12.0-16.0); Mean Corpuscular HGB Conc 32 g/dl (31-36); Mean Corpuscular Hemoglobin 31 pg (27-31); Mean Corpuscular Volume 96 fL (80-97); Mean Platelet Volume 11 um3 (7.4-10.4); Red Blood Count 3.33 10^6/ul (4.0-5.4); Red Cell Distribution Width 15 % (10.5-15); White Blood Count 21.3 10^3/ul (3.5-10.8)
[2017-04-25 15:45] LABS: Add Diff/Slide Review? Slide Review Added; Comments Flag Yes
[2017-04-25 15:59] LABS: Albumin 3.2 g/dL (3.2-5.2); BUN/Creatinine Ratio 12.8 (8-20); C Reactive Protein 248.92 mg/L (< 5.00); Calcium 9.5 mg/dL (8.6-10.3); EGFR African American 26.5 (>60); EGFR Non-African American 20.6 (>60); Globulin 3.9 g/dL (2-4); Potassium 4.4 mmol/L (3.5-5.0); Total Bilirubin 0.8 mg/dL (0.2-1.0); Total Protein 7.1 g/dL (6.4-8.9)
[2017-04-25 16:05] LABS: Troponin I 0.05 ng/mL (<0.04)
[2017-04-25] MEDS ORDERED: NS 0.9% 1000 ML* 2,000 ML IV ONE ×2 (16:08→16:47)
[2017-04-25] MEDS ORDERED: Insulin REGULAR(*) 1 UNITS UNIT IV PUSH ONE (16:09)
--- NOTE | 2017-04-25 16:12 | RAD ---
Indication: Fever. Single frontal view of the chest performed at 16 0002 hours was reviewed. Comparison is made with previous exam dated December 06, 2016. No mediastinal shift is noted. Heart is of normal size and configuration. Lung baumann appear clear. Pacemaker leads are in place. Right-sided central venous catheter is in place. Patient is status post tracer thoracotomy. IMPRESSION: NO ACTIVE CARDIOPULMONARY DISEASE IS NOTED.
[2017-04-25 16:36] LABS: PCO2 Arterial 39 mmHg (35-45)
[2017-04-25] MEDS ORDERED: Meropenem 500MG PREMIX(*) 500 MG/50 ML BAG IV SCH (17:00)
[2017-04-25] MEDS ORDERED: Albuterol 2.5 MG/3 ML NEB.SOL* (0.083%) INH PRN (17:38)
[2017-04-25] MEDS ORDERED: Albuterol/Ipratropium NEB.SOL* Albuterol 2.5 MG/Ipratropium 0.5 MG 3 ML INH PRN (17:42)
[2017-04-25] MEDS ORDERED: NS 0.9% 1000 ML* 1,000 ML IV SCH (17:45)
[2017-04-25] MEDS: Linezolid 600 MG IVPREMIX(*) 600 MG/300 ML BAG IVPB SCH (17:48)
--- NOTE | 2017-04-25 17:52 | RAD ---
Indication: Left lower extremity pain, sepsis. CT of the abdomen and pelvis was performed without oral or IV contrast administration. Coronal and sagittal reconstructed images were obtained. The lung bases demonstrate no pleural fluid, nodules or masses. Heart demonstrates no pericardial effusion. Liver is normal in size. No focal lesions or intrahepatic ductal dilatation is noted. The patient status post cholecystectomy. The pancreas demonstrates no mass or pancreatic ductal dilatation. The spleen is normal in size. No adrenal lesions are noted. The kidneys demonstrate no hydronephrosis of either kidneys. No retroperitoneal lymphadenopathy is noted. Atherosclerotic aorta is noted. No dilated loops of bowel are noted. CT of the pelvis demonstrates no evidence of abnormal masses or fluid collection. Atherosclerotic aorta is noted. The urinary bladder is otherwise unremarkable. Bony structures are grossly unremarkable. Postoperative changes of the lumbar spine is noted. IMPRESSION: Limited evaluation of the abdomen and pelvis demonstrates no evidence of abnormal masses or fluid collections. No oral or IV contrast was given. Patient is status post back surgery.
[2017-04-25] MEDS ORDERED: Dextrose 50% Syringe 50 ML* 25 GM/50 ML SYRINGE IV PUSH PRN ×2 (17:55→20:10)
--- NOTE | 2017-04-25 18:10 | RAD ---
Indication: Left leg pain. CT of the left lower extremity was obtained in the axial plane. No IV contrast was given. Coronal and sagittal reconstructed images were obtained. No evidence of abnormal fluid collections are identified. No evidence of lytic lesion or sclerotic lesions are noted in the leg. No joint effusion is noted. Subcutaneous edema is noted surrounding the ankle. No drainable fluid collections are identified. Atherosclerosis is noted. IMPRESSION: No drainable fluid collections are identified. Diffuse subcutaneous edema around the ankle. No knee effusion is noted. No bony abnormality is noted.
[2017-04-25 18:19] LABS: BUN/Creatinine Ratio 13.9 (8-20); Calcium 8.1 mg/dL (8.6-10.3); EGFR African American 29.2 (>60); EGFR Non-African American 22.7 (>60); Potassium 3.9 mmol/L (3.5-5.0)
[2017-04-25 18:24] LABS: Troponin I 0.05 ng/mL (<0.04)
--- NOTE | 2017-04-25 18:52 | ED ---
Meg Wallace Thomas, scribed for Moises Shaw MD on 04/25/17 at 1516 . HPI Febrile Illness - HPI Summary HPI Summary: The pt is a 57 y/o F presenting to the ED c/o fever (Tmax 101 in the ED) and elevated blood glucose since yesterday evening. She reports that her BG has been over 500 (creeping higher and higher since last night). She additionally c /o thirst and L stump pain. She rates her current pain 10/10. She denies dysuria , nausea, vomiting, and neck pain at this time. PMHx: CHF, DM, CAD. PSHx: Port-a -cath, CABG. SHx: smoking. - History of Current Complaint Chief Complaint: EDFever Time Seen by Provider: 04/25/17 15:08 Hx Obtained From: Patient Onset/Duration: Started Days Ago - 1 day, Still Present Current Severity: Severe Pain Intensity: 10 Pain Scale Used: 0-10 Numeric Associated Signs and Symptoms: Other: - POS: BG over 500 and "creeping higher and higher", thirst, L foot pain; NEG: dysuria, nausea, vomiting, neck pain - Additional Pertinent History Primary Care Physician: JENNIFER - Allergy/Home Medications Allergies/Adverse Reactions: Allergies Allergy/AdvReac Type Severity Reaction Status Date / Time Cephalosporins Allergy Severe Shortness Verified 04/25/17 14:50 of Breath Penicillins Allergy Intermediate Hives Verified 04/25/17 14:50 Sulfa Drugs Allergy Intermediate Hives Verified 04/25/17 14:50 Bee Venom Allergy Swelling Verified 04/25/17 14:50 Of Face,Lips,& Throat Diphenhydramine Allergy Difficulty Verified 04/25/17 14:50 Breathing Meropenem Allergy Diarrhea Verified 04/25/17 14:50 Vancomycin Allergy Hives Verified 04/25/17 14:50 Codeine AdvReac Intermediate Vomiting Verified 04/25/17 14:50 bee sting Allergy Severe Hives, Uncoded 04/25/17 14:50 CLOSES UP THROAT Home Medications: Home Medications Carvedilol [Coreg] 1.5625 mg PO DAILY 04/25/17 [History Confirmed 04/25/17] Docusate CAP* [Colace Cap*] 100 mg PO BID 04/25/17 [History Confirmed 04/25/17] Evolocumab [Repatha Sureclick] 140 mg SC SEE INSTRUCTIONS 04/25/17 [History Confirmed 04/25/17] Heparin FLUSH PORT (IVAD)* 3 ml IV FLUSH DAILY 04/25/17 [History Confirmed 04/25] Lactobacillus Acidophilu (GG)* [Culturelle*] 1 cap PO DAILY 04/25/17 [History Confirmed 04/25/17] PMH/Surg Hx/FS Hx/Imm Hx Previously Healthy: No Endocrine/Hematology History: Reports: Hx Anticoagulant Therapy, Hx Blood Transfusions, Hx Diabetes, Hx Thyroid Disease - Goiter, Hx Anemia, Other Endocrine/Hematological Disorders - anemia Denies: Hx Systemic Lupus Erythematosus Cardiovascular History: Reports: Hx Angioplasty, Hx Auto Implanted Cardiovert Defib, Hx Cardiac Arrest, Hx Congestive Heart Failure, Hx Coronary Artery Disease - CABGx3, Hx Hypercholesterolemia, Hx Hypertension, Hx Myocardial Infarction, Hx Pacemaker/ICD - 2016 - ICD, Hx Peripheral Vascular Disease, Hx Valvular Heart Disease - "Leaky valve", Other Cardiovascular Problems/Disorders - cardiomyopathy Denies: Hx Angina Respiratory History: Reports: Hx Asthma, Hx Chronic Bronchitis, Hx Chronic Obstructive Pulmonary Disease (COPD), Hx Pneumonia, Hx Pulmonary Edema, Hx Pulmonary Embolism, Hx Seasonal Allergies, Hx Sleep Apnea, Other Respiratory Problems/Disorders - respiratory failure, uses home oxygen GI History: Reports: Hx Gall Bladder Disease Denies: Hx Ulcer, Other GI Disorders History: Reports: Hx Chronic Renal Failure, Other Problems/Disorders - 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 Denies: Hx Dialysis, Hx Renal Disease Musculoskeletal History: Reports: Hx Arthritis, Hx Back Problems, Hx Fibromyalgia, Hx Osteoporosis, Hx Scoliosis, Other Musculoskeletal History - L foot amputaion, restless leg syndrome, osteomylitis Denies: Hx Rheumatoid Arthritis Sensory History: Reports: Hx Cataracts, Hx Contacts or Glasses, Hx Vision Problem, Hx Hearing Problem - R ear numbness and decreased hearing r/t TIA per pt Denies: Hx Hearing Aid Opthamlomology History: Reports: Hx Cataracts, Hx Contacts or Glasses, Hx Vision Problem Neurological History: Reports: Hx Migraine, Hx Nerve Disease - Diabetic Periperal Neuropathy, Hx Seizures, Hx Transient Ischemic Attacks (TIA), Other Neuro Impairments/Disorders - diabetic neuropathy Denies: Hx Dementia Psychiatric History: Reports: Hx Anxiety, Hx Depression Denies: Hx Panic Disorder - Cancer History Hx Chemotherapy: No - Surgical History Surgery Procedure, Year, and Place: CARDIAC STENTS(4 PROMUS AND 1 VISIPRO PLACED AT [facility] [place]-1.5T ONLY DUE TO CONDITIONAL STATUS OF MAX YOUNGT. GRAD. 720), TRIPLE BYPASS, BILATERAL CAROTID ENDARTERECTOMY ,LAP ADDY,HYSTERECTOMY,LEFT GREAT TOE AMPUTATION,APPY, T&A ,STERNAL WIRES ,LUMBAR SPINE FUSION,CSP FUSION , C SECTION,LEFT FOOT PARTIALLY(has heel only per pt) AMPUTATED-BACK SURGERY- LASER SURGERY. defib,port Hx Anesthesia Reactions: No - Immunization History Date of Tetanus Vaccine: UTD Date of Influenza Vaccine: 2015 Infectious Disease History: No Infectious Disease History: Reports: Hx of Known/Suspected MRSA Denies: Hx Clostridium Difficile, Hx Hepatitis, Hx Human Immunodeficiency Virus (HIV), Hx Shingles, Hx Tuberculosis, Hx Known/Suspected VRE, Hx Known/ Suspected VRSA, History Other Infectious Disease, Traveled Outside the [place] in Last 30 Days - Family History Known Family History: Positive: Unknown - pt is adopted - Social History Alcohol Use: None Substance Use Type: Reports: None Hx Tobacco Use: Yes Smoking Status (MU): Current Every Day Smoker Type: Cigarettes Amount Used/How Often: 6 cigs/day Length of Time of Smoking/Using Tobacco: 30 years Have You Smoked in the Last Year: Yes Review of Systems Positive: Fever - 101 in the ED, Other - POS: thirst, elevated BG ENT: Negative Cardiovascular: Negative Respiratory: Negative Gastrointestinal: Negative Negative: Vomiting, Nausea Genitourinary: Negative Negative: dysuria Musculoskeletal: Other - POS: L foot pain Negative: Other - NEG: neck pain Skin: Negative Neurological: Negative Psychological: Normal All Other Systems Reviewed And Are Negative: Yes Physical Exam - Summary Physical Exam Summary: VITAL SIGNS: Reviewed. GENERAL: ~Patient is a well-developed and nourished female who seem ill lying in the stretcher. . ~Patient is not in any acute respiratory distress. HEAD AND FACE: No signs of trauma. ~No ecchymosis, hematomas or skull depressions. No sinus tenderness. EYES: PERRLA, EOMI x 2, No injected conjunctiva, no nystagmus. EARS: Hearing grossly intact. Ear canals and tympanic membranes are within normal limits. MOUTH: Dry mouth. . NECK: Supple, trachea is midline, no adenopathy, no JVD, no carotid bruit, no c- spine tenderness, neck with full ROM. CHEST: Symmetric, no tenderness at palpation LUNGS: Clear to auscultation bilaterally. No wheezing or crackles. CVS: Regular rate and rhythm, S1 and S2 present, no murmurs or gallops appreciated. ABDOMEN: Soft, non-tender. No signs of distention. No rebound no guarding, and no masses palpated. Bowel sounds are normal. EXTREMITIES: left foot amputation. Small ulcer in the left stump. No erythema appreciated. There is no subcutaneous emphysema. NEURO: Alert and oriented x 3. No acute neurological deficits. Speech is normal and follows commands. SKIN: Dry and warm Triage Information Reviewed: Yes Vital Signs On Initial Exam: Initial Vitals Temp Pulse Resp BP Pulse Ox 101 F 99 20 133/79 100 04/25/17 14:50 04/25/17 14:50 04/25/17 14:50 04/25/17 14:50 04/25/17 14:50 Vital Signs Reviewed: Yes - Lea Coma Scale Coma Scale Total: 15 Diagnostics - Vital Signs Vital Signs Temp Pulse Resp BP Pulse Ox 04/25/17 15:06 102.4 F 102 18 172/86 100 04/25/17 14:50 101 F 99 20 133/79 100 - Laboratory Lab Results: Lab Results 04/25/17 04/25/17 04/25/17 Range/Units 15:35 15:35 15:35 WBC 21.3 H (3.5-10.8) 10^3/ul RBC 3.33 L (4.0-5.4) 10^6/ul Hgb 10.2 L (12.0-16.0) g/dl Hct 32 L (35-47) % MCV 96 (80-97) fL MCH 31 (27-31) pg MCHC 32 (31-36) g/dl RDW 15 (10.5-15) % Plt Count 145 L (150-450) 10^3/ul MPV 11 H (7.4-10.4) um3 Neut % (Auto) 90.7 H (38-83) % Lymph % (Auto) 3.4 L (25-47) % [place] % (Auto) 4.3 (1-9) % Eos % (Auto) 0.4 (0-6) % Baso % (Auto) 1.2 (0-2) % Absolute Neuts (auto) 19.3 H (1.5-7.7) 10^3/ul Absolute Lymphs (auto) 0.7 L (1.0-4.8) 10^3/ul Absolute Monos (auto) 0.9 H (0-0.8) 10^3/ul Absolute Eos (auto) 0.1 (0-0.6) 10^3/ul Absolute Basos (auto) 0.3 H (0-0.2) 10^3/ul Absolute Nucleated RBC 0 10^3/ul Nucleated RBC % 0 APTT (26.0-36.3) seconds ABG pH (7.35-7.45) ABG pCO2 (35-45) mmHg ABG pO2 (80-100) mmHg ABG HCO3 (19-31) mmol/L ABG O2 Saturation (95-98) % ABG Base Excess (-2.0-2.0) Sodium 119 L* (133-145) mmol/L Potassium 4.4 (3.5-5.0) mmol/L Chloride 86 L (101-111) mmol/L Carbon Dioxide 24 (22-32) mmol/L Anion Gap 9 (2-11) mmol/L BUN 31 H (6-24) mg/dL Creatinine 2.43 H (0.51-0.95) mg/dL Est GFR ( Amer) 26.5 (>60) Est GFR (Non-Af Amer) 20.6 (>60) BUN/Creatinine Ratio 12.8 (8-20) Glucose 692 H* (70-100) mg/dL Lactic Acid 1.5 (0.5-2.0) mmol/L Calcium 9.5 (8.6-10.3) mg/dL Total Bilirubin 0.80 (0.2-1.0) mg/dL AST 9 L (13-39) U/L ALT 7 (7-52) U/L Alkaline Phosphatase 185 H (34-104) U/L Total Creatine Kinase 108 (10-223) U/L Troponin I 0.05 H* (<0.04) ng/mL C-Reactive Protein 248.92 H (< 5.00) mg/L B-Natriuretic Peptide ( - 100) pg/mL Total Protein 7.1 (6.4-8.9) g/dL Albumin 3.2 (3.2-5.2) g/dL Globulin 3.9 (2-4) g/dL Albumin/Globulin Ratio 0.8 L (1-3) 04/25/17 04/25/17 04/25/17 Range/Units 15:35 15:35 16:30 WBC (3.5-10.8) 10^3/ul RBC (4.0-5.4) 10^6/ul Hgb (12.0-16.0) g/dl Hct (35-47) % MCV (80-97) fL MCH (27-31) pg MCHC (31-36) g/dl RDW (10.5-15) % Plt Count (150-450) 10^3/ul MPV (7.4-10.4) um3 Neut % (Auto) (38-83) % Lymph % (Auto) (25-47) % [place] % (Auto) (1-9) % Eos % (Auto) (0-6) % Baso % (Auto) (0-2) % Absolute Neuts (auto) (1.5-7.7) 10^3/ul Absolute Lymphs (auto) (1.0-4.8) 10^3/ul Absolute Monos (auto) (0-0.8) 10^3/ul Absolute Eos (auto) (0-0.6) 10^3/ul Absolute Basos (auto) (0-0.2) 10^3/ul Absolute Nucleated RBC 10^3/ul Nucleated RBC % APTT 28.7 (26.0-36.3) seconds ABG pH 7.42 (7.35-7.45) ABG pCO2 39 (35-45) mmHg ABG pO2 63 L (80-100) mmHg ABG HCO3 25.5 (19-31) mmol/L ABG O2 Saturation 95.5 (95-98) % ABG Base Excess 0.8 (-2.0-2.0) Sodium (133-145) mmol/L Potassium (3.5-5.0) mmol/L Chloride (101-111) mmol/L Carbon Dioxide (22-32) mmol/L Anion Gap (2-11) mmol/L BUN (6-24) mg/dL Creatinine (0.51-0.95) mg/dL Est GFR ( Amer) (>60) Est GFR (Non-Af Amer) (>60) BUN/Creatinine Ratio (8-20) Glucose (70-100) mg/dL Lactic Acid (0.5-2.0) mmol/L Calcium (8.6-10.3) mg/dL Total Bilirubin (0.2-1.0) mg/dL AST (13-39) U/L ALT (7-52) U/L Alkaline Phosphatase (34-104) U/L Total Creatine Kinase (10-223) U/L Troponin I (<0.04) ng/mL C-Reactive Protein (< 5.00) mg/L B-Natriuretic Peptide 243 H ( - 100) pg/mL Total Protein (6.4-8.9) g/dL Albumin (3.2-5.2) g/dL Globulin (2-4) g/dL Albumin/Globulin Ratio (1-3) Result Diagrams: 04/25/17 15:35 04/25/17 17:53 Lab Statement: Any lab studies that have been ordered have been reviewed, and results considered in the medical decision making process. - Radiology CXR Xray Interpretation: No Acute Changes - No active cardiopulmonary disease is noted. Radiology Interpretation Completed By: Radiologist - EKG 16:01 Cardiac Rate: NL - 100 BPM EKG Interpretation: Sinus rhythm. Paced simliar to 03/31/17. Course/Dx - Course Assessment/Plan: The pt is a 57 y/o F presenting to the ED c/o fever (Tmax 101 in the ED) and elevated blood glucose since yesterday evening. She reports that her BG has been over 500 (creeping higher and higher since last night). She additionally c/o thirst and L stump pain. She rates her current pain 10/10. She denies dysuria, nausea, vomiting, and neck pain at this time. PMHx: CHF, DM, CAD. PSHx: Port-a-cath, CABG. SHx: smoking. In the ED course an IV access was obtained. Patient was placed in a surveillance system monitor. Patient was started with3 IV fluids. Patient reports that she has Hx of CHF but patient is severely dehydrated. She has increased skin turgor, and tongue and oral mucosa is very dry. Therefore I will give patient 2 L of IV fluids to start. Multiple lung exams does not reveal any crackles. Labs within normal limits except for WBCs 21.3, chronic anemia, Hyponatremia of 119, acute on chronic RF, hyperglycemia but patient is not in DKA. Troponin 0.005, CRP 248. Unable to obtain UA still since patient is very dry. She was given an additional 1 Liter of IV fluids. EKG shows a sinus tach 100 BPM. similar EKG to previous. CXR impression: No acute pathology. Patient was given Tylenol for the fever. I did place patient in antibiotics since patient has multiple antibiotic anaphylactic reactions as per patient and I have not found the source of infection. I believe most of her symptoms are secondary to dehydration and hyperglycemia. I discussed the case with Dr. Kurtz and reports patient needs ICU but to admit to the hospitalist services. I discussed the case with Dr. Garcia who accepted the patient for admission. Dr. Orozco will place patient in IV antibiotics if needed. - Febrile Illness Differential Diagnoses: Cellulitis, Pneumonia, Pyelonephritis, Sepsis, Other: - DKA, Hyperglycemia, dehydration - Diagnoses Provider Diagnoses: Hyperglycemia, Hyponatremia, Increased troponin r/o ACS, Renal failure, Severe dehydration - Provider Notifications Discussed Care Of Patient With: Silverio Kurtz Time Discussed With Above Provider: 16:15 Instructed by Provider To: Other - Discussed patient and Dr. Kurtz recommended admitting to the hospital. Also consulted with Dr. Orozco, hospitalist, at 16:33, who will accept the patient for admisison. Discharge - Discharge Plan Condition: Stable Disposition: ADMITTED TO [facility] documentation as recorded by the Meg sherwood Thomas accurately reflects the service I personally performed and the decisions made by me, Moises Shaw MD.
[2017-04-25] MEDS ORDERED: Spiriva Inhaler DEVICE* 1 EACH DEVICE INH ONE (19:00)
[2017-04-25] MEDS: Acetaminophen TAB* 325 MG PO PRN (19:32)
[2017-04-25 19:57] LABS: Urine Bacteria 2+ (Absent); Urine Bilirubin Negative (Negative); Urine Glucose 3+(>=500 mg/dL) (Negative); Urine Nitrite Positive (Negative)
[2017-04-25] MEDS ORDERED: Insulin LISPRO* 1 UNITS UNIT SUBCUT ONE (20:10)
[2017-04-25] MEDS: Atorvastatin* 20 MG TAB PO SCH (20:34)
[2017-04-25] MEDS: Insulin LISPRO* 1 UNITS UNIT SUBCUT SCH ×2 (20:34→23:13)
[2017-04-25] MEDS: metroNIDAZOLE IV 500 MG/100ML* 500 MG/100 ML BAG IVPB SCH (20:34)
[2017-04-25] MEDS: Morphine INJ* 4 MG/ML 1 ML SYRINGE IV PRN (20:35)
[2017-04-25] MEDS: Heparin VIAL(*) 5000 UNITS/ML VIAL (FIVE THOUSAND) SUBCUT SCH (21:12)
[2017-04-25] MEDS: Pramipexole TAB* 0.5 MG PO SCH (21:12)
[2017-04-25] MEDS: Ticagrelor* 90 MG TAB PO SCH (21:22)
[2017-04-25] MEDS: Docusate CAP* 100 MG PO SCH (21:22)
[2017-04-25] MEDS: Gabapentin CAP(*) 300 MG PO SCH (21:22)
[2017-04-25] MEDS: Ciprofloxacin 400MG IVPREMIX(* 400 MG/200 ML BAG IVPB SCH (21:41)
[2017-04-25 22:40] LABS: Troponin I 0.05 ng/mL (<0.04)
[2017-04-25] MEDS: Mometasone/Formoter 100/5 MDI INH SCH (22:44)
[2017-04-26] MEDS: Carvedilol TAB* 3.125 MG PO SCH ×3 (00:11→21:22)
[2017-04-26] MEDS: Insulin LISPRO* 1 UNITS UNIT SUBCUT SCH ×6 (00:37→21:22)
[2017-04-26 00:53] LABS: BUN/Creatinine Ratio 14.9 (8-20); Calcium 7.9 mg/dL (8.6-10.3); EGFR African American 37.2 (>60); EGFR Non-African American 28.9 (>60); Potassium 3.3 mmol/L (3.5-5.0)
--- NOTE | 2017-04-26 01:35 | HP ---
ADDENDUM NOW INCLUDED ON THIS REPORT CC: Dr. Valdes; Dr. Damon; Dr. Bello * HISTORY AND PHYSICAL: DATE OF ADMISSION: 04/25/17 PRIMARY CARE PROVIDER: Dr. Valdes. ATTENDING PHYSICIAN WHILE IN THE HOSPITAL: Bubba Hess MD * (report dictated by Vishal Jonas NP) CHIEF COMPLAINT: 1. Left leg pain. 2. Fever. 3. Hyperglycemia. HISTORY OF PRESENT ILLNESS: Mrs. Galarza is a 57-year-old female patient with multiple medical problems. She has a history of peripheral vascular disease, CHF, anemia, diabetes, CKD, COPD, CVA, restless leg syndrome, hypertension, hyperlipidemia, CAD, diabetic foot ulcers requiring a left foot amputation. She has a history of left subclavian stenosis and a history of an PR. She comes into the ER today stating that yesterday she developed the onset of pain in her left leg, it has been getting progressively worse throughout the day. She says that she has now lost feeling in the leg. She says that also in addition to this, she has also developed fever that has gotten progressively worse throughout yesterday evening and the night the fever at home got as high as 101. She has also had increasing blood sugars. She denies having any cough. There has been fevers. No shortness of breath. No nausea or vomiting. No abdominal pain. No dysuria. No frequency. She was concerned though, because the fever was increasing and her sugars were getting worse and the pain was becoming unbearable in her left leg. She was evaluated in the ER, it was noted that she appeared to be septic. She was hyponatremic, hyperglycemic. She had an indeterminate troponin. Because of these findings, we were asked to evaluate for admission. PAST MEDICAL HISTORY: Significant for: 1. PVD. 2. CHF. 3. Anemia. 4. Diabetes. 5. CKD. 6. COPD. 7. CVA. 8. RLS. 9. Hypertension. 10. Hyperlipidemia. 11. CAD. 12. Diabetic foot ulcers. 13. Left subclavian stenosis. 14. PR. PAST SURGICAL HISTORY: 1. She has had an appendectomy. 2. Cholecystectomy. 3. Tonsillectomy. 4. . 5. Skin grafting. 6. CABG. 7. Cervical laminectomy. 8. Lumbar laminectomy. 9. Left foot amputation. 10. Carotid endarterectomy. MEDICATIONS: Home meds according to the list that was obtained from include: 1. Repatha 140 mg subcu every 2 weeks. 2. Culturelle 1 capsule p.o. daily. 3. Colace 100 mg p.o. b.i.d. 4. Heparin flush as directed for port. 5. Coreg 4.6875 mg at bedtime. 6. Atorvastatin 20 mg p.o. at bedtime. 7. Aspirin 81 mg daily. 8. DuoNeb 1 neb inhaled t.i.d. as needed. 9. Vasotec 5 mg p.o. daily at noon. 10. Coreg 1.5625 mg p.o. daily in the morning. 11. Glucagon Emergency 1 mg IM for hypoglycemia. 12. Gabapentin 1800 mg at bedtime. 13. EpiPen 0.3 mg IM for allergic reaction. 14. Dulera 1 puff inhaled b.i.d. 15. Metolazone 5 mg p.o. daily as needed. 16. Mirapex 5 mg p.o. at bedtime. 17. Nitro 0.4 mg sublingual q.5 minutes p.r.n. chest pain x3. 18. Spironolactone 12.5 mg daily. 19. Demadex 20 mg p.o. daily as needed. 20. Spiriva 1 capsule inhaled daily. 21. Brilinta 90 mg p.o. b.i.d. ALLERGIES TO MEDICATIONS: Include CYCLOSPORIN, PENICILLIN, SULFA, BEE VENOM, DIPHENHYDRAMINE, MEROPENEM, VANCOMYCIN, CODEINE, and BEE STING. FAMILY HISTORY: Unknown, she is adopted. SOCIAL HISTORY: She has been smoking up to about 2 weeks ago. She smokes about a half a pack a day for 30 years. She does not drink alcohol. Surrogate decision maker is her , Genaro. REVIEW OF SYSTEMS: There is a documented fever here. She denied any significant weight change. There was no double vision. She denies having any ear discharge. There was no rhinorrhea, no sore throat, no thyroid enlargement. She denied having any chest pain. There was no orthopnea, no nocturnal dyspnea. There was no abdominal pain, no nausea, no vomiting. No dysuria. No frequency. No seizure. No loss of consciousness. No pruritus and no skin ulcerations. Review of 14 systems completed, all others negative. PHYSICAL EXAMINATION GENERAL: At this time, Mrs. Galarza is a 57-year-old female patient. She is chronically ill appearing. She is sitting in the ER stretcher. She does not appear to be in any acute respiratory distress. VITAL SIGNS: Blood pressure 108/55, pulse 86, respirations were 22, O2 sat 98%. HEENT: Head is atraumatic and normocephalic. Eyes: EOMs intact. Sclerae anicteric. Not pale. Throat: Oral mucosa appears to be dry, no oropharyngeal erythema. NECK: Supple. LUNGS: Clear to auscultation. No wheezes, rales, or rhonchi. HEART: Sounds S1 and S2. Regular rate and rhythm. No murmurs, rubs, or gallops. ABDOMEN: Soft, flat, nontender. Bowel sounds present. EXTREMITIES: Pulses were diminished in the lower right foot. The extremities were warm to touch. They were not cool and they were not pale. She had good cap refill. She has pain to palpation of the left thigh and when manipulating the left lower extremity particularly, she does have pain to the left thigh as well as manipulation. It does not appear to localize to the joint. SKIN: Intact. NEUROLOGIC: She is awake, alert, oriented x3. Tongue midline. Route Relief Driver are equal. No gross focal deficits. DIAGNOSTIC STUDIES/LAB DATA: Labs today revealed a WBC of 21.3, RBC of 3.33, hemoglobin 10.2, hematocrit 32, platelet count of 145,000. The PTT was 28.7. Her pH was 742, pCO2 of 39, bicarbonate 25. The chemistries reveal sodium of 119, potassium 4.4, chloride 89, bicarb 24, BUN 31, creatinine 2.43, glucose of 692, lactic 1.5, calcium 9.5. Total bili 0.8, AST 9, ALT 7, alk phos 185. CK 108, troponin 0.05, CRP of 250. BNP of 243. Albumin of 3.2. Her urine is pending. She did have a lower extremity CT, which showed no drainable fluid collections identified, diffuse subcutaneous edema around the ankle, no knee effusion is noted. No bony abnormality is noted. She had abdominal pelvis CT, which revealed limited evaluation of her abdomen and pelvis, demonstrates no evidence of abnormal mass or fluid collections. No oral or IV contrast was given. The patient is status post back surgery. Chest x-ray obtained today revealed no active cardiopulmonary disease. She did have an EKG obtained today, which shows a sinus tachycardia, atrial paced rhythm with a rate of 100. It is similar to previous EKGs. Old medical records reviewed. Her last EF was 30% to 35%. ASSESSMENT AND PLAN: Mrs. Galarza is a 57-year-old female patient. She is a vasculopath. She has multiple medical problems coming into the ER today with complaints of fever and left leg pain. She will be admitted under inpatient status for: 1. Sepsis: Again, the source at this point is unclear. At this point, I am going to treat with broad-spectrum antibiotics in the form of linezolid, Cipro, and Flagyl because of her underlying allergies to antibiotics. I left a message with Dr. Damon, so he could evaluate her tomorrow. I do not think the hip is septic at this point she does not have any pain specifically to the joint, it is mostly in her leg. The imaging has been stable. I would like to get a UA. We will get blood cultures. I am going to put her in the ICU. We have given her 3 L of fluid upfront and we will continue IV antibiotics and wait for a source to present itself. We will continue to monitor and follow her closely. 2. Hyponatremia: This is pseudo-hyponatremia, her sodium corrects out to about 128. My plan is to hydrate her, get control of her sugars. I think the sodium is a little low because of dehydration. She certainly does have some acute renal failure too, which is most likely prerenal. It could be a component of acute tubular necrosis from the sepsis picture, but I think if we hydrate her this should improve. I am going to check her BMP every 6 hours and will follow the sodium closely. 3. Indeterminate troponin: It is probably demand ischemia from her sepsis. She normally runs about 0.03 to 0.06, so she is right around her range. We will just trend these. 4. Acute renal failure: Again, probably prerenal and that could be a component of acute tubular necrosis from sepsis. We will hydrate her, I will get a FeNa and I will continue to monitor her. 5. Obstructive sleep apnea. I did order a CPAP. 6. Diabetes type 1: This is poorly controlled. Her sugar was 692 when she came in. I am going to go ahead and check her sugars every hour with q.4 hour lispro coverage. She does have a pump, but in the acute setting. For the time being, we will hold off on her pump and cover her aggressively and if she does not come into range with her sugars, we may need to consider an insulin drip, but she does not appear to be in diabetic ketoacidosis currently. We will hydrate her and follow her sugars closely. 7. Peripheral vascular disease: She is on Brilinta and an aspirin and statin and will continue. 8. Congestive heart failure: She does not appear to be in acute failure. We will monitor her I's and O's closely, but I am holding her diuretics for the time being as I think she is dehydrated. 9. Anemia: Her H and H is stable. We will monitor this. 10. Chronic kidney disease with acute renal failure: Again, I will refer him for the acute renal failure. 11. Chronic obstructive pulmonary disease: Will continue her nebs as prescribed. 12. Cerebrovascular accident: Continue secondary prevention. 13. Restless leg syndrome: Continue Mirapex. 14. Hypertension: I will continue her meds with the exception of her Vasotec, I am continuing her Coreg with hold parameters. 15. Hyperlipidemia: Continue statin. 16. Coronary artery disease: Continue the aspirin and the beta-brian with hold parameters and the statin therapy. 17. DVT prophylaxis. She is high risk. She will be placed on heparin subcu. 18. Code status: Full code. 19. Fluids, electrolytes, and nutrition. She can have a consistent carb diet. TIME SPENT: On admission was approximately 80 minutes, greater than half the time spent [id number] with the patient obtaining my history and physical, other half of the time spent going over the plan of care with the patient and implementing the plan of care. I discussed the plan of care with my attending, Dr. Hess, he is in agreement. VISHAL JONAS NP ADDENDUM: DATE OF ADMISSION: 04/25/17 Please note under further review I did see the patient had a bone marrow biopsy done on the on the same leg where she is having this increased pain. I did touch base with on-call Oncology and her urine did come back now. Her urine does appear to be infected; however, though she is having a significant amount of pain in the left leg and I touched base on-call with Oncology, they do state that she can get a marrow infection but it is extremely rare. The source probably is urine and this may be incidental that she had the bone marrow biopsy and now is having this pain, but I am going to have our ID specialist weigh in on this as well and if she is continuing to have the pain, we may need to have official consult with Oncology. VISHAL JONAS, VIKRAM [id number]/CPS #: [id number]/CPS #: [id number] ABNER
--- NOTE | 2017-04-26 02:16 | HP ---
HISTORY AND PHYSICAL: * ADDENDUM: DATE OF ADMISSION: 04/25/17 Please note under further review I did see the patient had a bone marrow biopsy done on the on the same leg where she is having this increased pain. I did touch base with on-call Oncology and her urine did come back now. Her urine does appear to be infected; however, though she is having a significant amount of pain in the left leg and I touched base on-call with Oncology, they do state that she can get a marrow infection but it is extremely rare. The source probably is urine and this may be incidental that she had the bone marrow biopsy and now is having this pain, but I am going to have our ID specialist weigh in on this as well and if she is continuing to have the pain, we may need to have official consult with Oncology. DEMIAN PATHAK, VIKRAM [id number]/CPS #: [id number] ABNER
[2017-04-26] MEDS: metroNIDAZOLE IV 500 MG/100ML* 500 MG/100 ML BAG IVPB SCH (03:49)
[2017-04-26] MEDS: Morphine INJ* 4 MG/ML 1 ML SYRINGE IV PRN ×4 (03:56→18:18)
[2017-04-26] MEDS: Linezolid 600 MG IVPREMIX(*) 600 MG/300 ML BAG IVPB SCH ×2 (05:08→16:22)
[2017-04-26] MEDS: Acetaminophen TAB* 325 MG PO PRN (05:09)
[2017-04-26 05:35] LABS: Hematocrit 25 % (35-47); Hemoglobin 8.1 g/dl (12.0-16.0); Mean Corpuscular HGB Conc 32 g/dl (31-36); Mean Corpuscular Hemoglobin 31 pg (27-31); Mean Corpuscular Volume 96 fL (80-97); Mean Platelet Volume 12 um3 (7.4-10.4); Red Blood Count 2.61 10^6/ul (4.0-5.4); Red Cell Distribution Width 15 % (10.5-15); White Blood Count 13.8 10^3/ul (3.5-10.8)
[2017-04-26 05:50] LABS: BUN/Creatinine Ratio 15.9 (8-20); Calcium 8.3 mg/dL (8.6-10.3); EGFR African American 41.7 (>60); EGFR Non-African American 32.4 (>60); Potassium 3.8 mmol/L (3.5-5.0)
[2017-04-26] MEDS ORDERED: Ondansetron INJ* 2 MG/ML VIAL ONE (08:19)
[2017-04-26] MEDS: Heparin VIAL(*) 5000 UNITS/ML VIAL (FIVE THOUSAND) SUBCUT SCH ×3 (08:30→21:25)
[2017-04-26] MEDS: Ondansetron INJ* 2 MG/ML VIAL IV PRN ×3 (08:30→20:17)
--- NOTE | 2017-04-26 08:36 | PN ---
Subjective Date of Service: 04/26/17 Interval History: HOSPITALIST PROGRESS NOTE Patient seen and examined at bedside. She c/o left leg pain and dry heaves this AM. States since last week she was feeling "crummy" but didn't know why. She thought she had a pimple on her right buttock and tried to squeeze it. It became more swollen and tender, but it never drained. She also noticed her sugar was trending up, >300 even with her insulin pump. Over the weekend she developed fever, left hip pain, that later on spread to her whole left leg. No back or buttock pain. Family History: Unchanged from Admission Social History: Unchanged from Admission Past Medical History: Unchanged from Admission Objective Active Medications: Acetaminophen (Tylenol Tab*) 650 mg PO Q4H PRN PRN Reason: FEVER/PAIN Last Admin: 04/26/17 05:09 Dose: 650 mg Albuterol (Ventolin 2.5 Mg/3 Ml Neb.Roxy*) 2.5 mg INH Q2H PRN PRN Reason: SOB/WHEEZING Albuterol/Ipratropium (Duoneb (Albuterol 2.5 Mg/Ipratropium 0.5 Mg)) 1 neb INH TID PRN PRN Reason: SHORTNESS OF BREATH Aspirin (Aspirin Ec Low Dose*) 81 mg PO DAILY [facility] Atorvastatin Calcium (Lipitor*) 20 mg PO QPM [facility] Last Admin: 04/25/17 20:34 Dose: 20 mg Carvedilol (Coreg Tab*) 1.5625 mg PO DAILY [facility] Carvedilol (Coreg Tab*) 4.6875 mg PO BEDTIME [facility] Last Admin: 04/26/17 00:11 Dose: Not Given Dextrose (D50w Syringe 50 Ml*) 12.5 gm IV PUSH .FOR FS < 60 - SS PRN PRN Reason: FS < 60 Docusate Sodium (Colace Cap*) 100 mg PO BID [facility] Last Admin: 04/25/17 21:22 Dose: 100 mg Gabapentin (Neurontin Cap(*)) 600 mg PO BEDTIME [facility] Last Admin: 04/25/17 21:22 Dose: 600 mg Heparin Sodium (Porcine) (Heparin Vial(*)) 5,000 units SUBCUT Q8HR [facility] Last Admin: 04/26/17 08:30 Dose: 5,000 units Linezolid (Zyvox 600 Mg Ivpremix(*)) 600 mg in 300 mls @ 300 mls/hr IVPB Q12H [facility] Last Admin: 04/26/17 05:08 Dose: 300 mls/hr Ciprofloxacin/Dextrose (Cipro 400 Mg Ivpremix(*)) 400 mg in 200 mls @ 200 mls/ hr IVPB Q24H [facility] Last Admin: 04/25/17 21:41 Dose: 200 mls/hr Metronidazole/Sodium Chloride (Flagyl 500 Mg Ivpb*) 500 mg in 100 mls @ 100 mls /hr IVPB Q8H [facility] Last Admin: 04/26/17 03:49 Dose: 100 mls/hr Sodium Chloride (Ns 0.9% 1000 Ml*) 1,000 mls @ 100 mls/hr IV PER RATE [facility] Last Admin: 04/25/17 22:24 Dose: 100 mls/hr Insulin Human Lispro (Humalog*) 0 units SUBCUT Q4H [facility] PRN Reason: Protocol Last Admin: 04/26/17 04:11 Dose: 9 units Lactobacillus Rhamnosus (Culturelle*) 1 cap PO DAILY [facility] Mometasone Furoate/Formoterol Fumar (Dulera 100/5 Mdi*) 1 puff INH BID [facility] Last Admin: 04/25/17 22:44 Dose: 1 puff Morphine Sulfate (Morphine Inj (Syringe)*) 4 mg IV Q4H PRN PRN Reason: PAIN Last Admin: 04/26/17 08:30 Dose: 4 mg Ondansetron HCl (Zofran Inj*) 4 mg IV Q6H PRN PRN Reason: NAUSEA Last Admin: 04/26/17 08:30 Dose: 4 mg Pramipexole Dihydrochloride (Mirapex Tab*) 4.5 mg PO BEDTIME [facility] Last Admin: 04/25/17 21:12 Dose: 4.5 mg Ticagrelor (Brilinta*) 90 mg PO BID [facility] Last Admin: 04/25/17 21:22 Dose: 90 mg Tiotropium [place] (Spiriva Cap.Inh*) 1 cap INH DAILY [facility] Vital Signs 04/26/17 04/26/17 04/26/17 06:00 06:20 06:40 Temperature 100.0 F 100.0 F 100.0 F Pulse Rate 76 76 74 Respiratory 20 20 20 Rate Blood Pressure 105/58 109/59 109/56 (mmHg) O2 Sat by Pulse 98 98 98 Oximetry 04/26/17 04/26/17 04/26/17 07:00 07:20 07:40 Temperature 100.1 F 100.1 F 100.0 F Pulse Rate 74 75 76 Respiratory 22 21 16 Rate Blood Pressure 106/62 120/72 128/63 (mmHg) O2 Sat by Pulse 98 98 98 Oximetry Oxygen Devices in Use Now: Nasal Cannula Appearance: Pleasant middle aged lady lying in bed in NAD. Eyes: No Scleral Icterus Ears/Nose/Mouth/Throat: Mucous Membranes Moist Neck: Trachea Midline Respiratory: Symmetrical Chest Expansion and Respiratory Effort, Clear to Auscultation Cardiovascular: RRR - Normal S1 and S2 Abdominal: NL Sounds; No Tenderness; No Distention Extremities: - - No edema, pain on palpation of left hip and with ROM. There's pain on palpation of inner thigh. S/p left anterior foot amputation. Small area of eschar on left heel with no erythema or drainage. Skin: - - Area of edema and erythema measuring 3-4cm in the inner crease of right buttock, without fluctuation or drainage Neurological: Alert and Oriented x 3 Lines/Tubes/Other Access: Clean, Dry and Intact Peripheral IV Nutrition: Taking PO's Result Diagrams: 04/26/17 05:17 04/26/17 05:17 Assess/Plan/Problems-Billing Assessment: Mrs. Galarza is a 57yo F with PMH of insulin dependent diabetes, CAD s/p CABG, PVD, CVA, chronic anemia, CKD stage 3, HTN, HLD, left subclavian stenosis s/p stent, left foot osteomyelitis s/p forefoot amputation, who presented to ED with fever and left hip pain, found to be septic. - Patient Problems (1) Sepsis Comment: - Patient met sepsis criteria on admission with fever and leukocytosis. - Multiple possible sources: UTI, buttock abscess, left hip ?septic arthritis. - Follow cultures. - Continue IVF. (2) UTI (urinary tract infection) Comment: - She does not have many urinary symptoms, but urine culture is growing E. coli. - Continue Ciprofloxacin. (3) Abscess of buttock, right Comment: - Suspect she's forming an abscess in that area. - With her h/o MRSA, will continue linezolide and ciprofloxacin. (4) Left hip pain Comment: - Concerned with possible septic arthritis, considering her severe pain and voluntary ROM limitation. - Joint aspiration requested with IR. - Continue Linezolide and Ciprofloxacin. - ID input appreciated. (5) Vaginal candidiasis Comment: - On external examination, patient has white, flaky, vaginal discharge , suggestive of candidiasis. - Fluconazole 150mg x 1 dose. (6) LELIA (acute kidney injury) Comment: - Likely pre-renal secondary to uncontrolled DM and dehydration. - Responding to IVF. - Continue to monitor renal function. (7) Hyponatremia Comment: - Pseudohyponatremia in the setting of uncontrolled DM. - Improving. (8) Uncontrolled diabetes mellitus Comment: - Will resume her insulin pump - Humalong at 1.5 units/hour and continue SS. - Check A1c. (9) Elevated troponin Comment: - Minimal elevation, likely associated with her CKD. - No c/o chest pain or dyspnea, but at risk for demand ischemia. - Continue to monitor. (10) Anemia Comment: - Suspect thi is likely anemia of chronic disease. - BM biopsy done on 04/19/17 showed mildly hypercellular marrow with no evidence of hematologic malignancy. (11) DVT prophylaxis Comment: - SQ heparin. (12) Full code status Status and Disposition: Inpatient. Continue to monitor in ICU.
[2017-04-26] MEDS: Tiotropium CAP.INH* CAP.INH/18 MCG INH SCH (08:37)
[2017-04-26] MEDS: Mometasone/Formoter 100/5 MDI INH SCH ×2 (08:37→19:38)
--- NOTE | 2017-04-26 08:38 | RAD ---
INDICATION: Left lower extremity pain. COMPARISON: Comparison is made with a prior study from December 06, 2016. TECHNIQUE: Multiple real-time, color flow and Doppler tracings of the left lower extremity were obtained. FINDINGS: The common femoral, femoral, profunda femoral and popliteal veins all demonstrate normal compressibility, augmentation with compression and phasic response with respiration. The posterior tibial and peroneal veins demonstrate normal compressibility and augmentation with compression. The patient is status post surgical removal of the left greater saphenous vein. IMPRESSION: NO EVIDENCE FOR DEEP VENOUS THROMBOSIS.
[2017-04-26] MEDS ORDERED: Insulin LISPRO* FOR INSULIN PUMP SUBCUT SCH (10:00)
[2017-04-26] MEDS: Lactobacillus Acidophilu (GG)* 1 CAP CAP PO SCH (11:37)
[2017-04-26] MEDS: Docusate CAP* 100 MG PO SCH ×2 (11:38→21:22)
[2017-04-26] MEDS: Aspirin EC Low Dose* 81 MG TAB.EC PO SCH (11:38)
[2017-04-26] MEDS: Ticagrelor* 90 MG TAB PO SCH ×2 (11:38→21:23)
--- NOTE | 2017-04-26 13:40 | CONS ---
CONSULTATION REPORT: DATE OF CONSULT: 04/26/17 REQUESTING PHYSICIAN: Dr. Alfonso CONSULTING SERVICE: Infectious Disease. REASON FOR CONSULTATION: Left hip pain, fever and malaise. IMPRESSION: 1. One week of progressive left hip pain, malaise, fevers, chills, anorexia, with severe left hip p ain with range of motion. CT of the pelvis did not show hip fracture. I am concerned that there is a septic hip. Lyme arthritis can cause hip pain, usually not this severe and usually without syste magaly symptoms and occurring months later. She does also have abnormal urinalysis, leukocyte esterase , nitrites and red cells present. Cultures are pending. She did not have any particular urinary sy mptoms but she is still fair game for urinary tract infection and sepsis. 2. Left medial buttock induration, question small abscess or phlegmon. 3. Insulin-dependent diabetes with neuropathy. 4. Coronary artery disease. 5. Allergy to CEPHALOSPORIN, PENICILLIN, and SULFA. 6. Nausea this morning, I suspect due to Flagyl. RECOMMENDATIONS: 1. We will stop the Flagyl, continue linezolid and Cipro, awaiting the blood and urine cultures. 2. Aspiration of the left hip by Interventional Radiology to rule out septic hip as she cannot have an MRI. HISTORY OF PRESENT ILLNESS: A 57-year-old diabetic admitted with malaise and hip pain and fever. S he had been well until about a week and half ago. She developed malaise, decreased appetite, decrea sed energy throughout the day,. She was diffusely mildly achy, then had the onset of left hip pain w hich was severe and progressive as well as fever. She had had a bone marrow biopsy from the left po sterior iliac crest on 04/19/17. That area seems to have healed up. Because of her progressive sym ptoms, she was directed to the ER by Dr. Hess's office. She was concerned because she thought she has a small ulcer in the left lower extremity where she has a brace rubbing in that area. It has n ot been red or swollen in that area. She was febrile when she arrived here, had a white count of 21 ,000. Blood and urine cultures were sent. She is on a linezolid, Cipro and Flagyl. CT of the left leg showed subcu edema around the ankle. No knee effusion. CT of the abdomen and pelvis showed no masses or fluid collections. A chest x-ray showed no active cardiopulmonary disease. She had a te mp of 38 degrees overnight, starting to feel little bit better, but her left hip pain is still sever e, hurts with movement in the bed, much worse with weightbearing. She has a Mckeon catheter. PAST MEDICAL HISTORY: 1. Insulin-dependent diabetes, has an insulin pump. 2. Coronary artery disease, history of [place] and congestive heart failure, status post CABG. 3. Peripheral vascular disease, status post carotid endarterectomy. 4. Anemia. 5. Chronic kidney disease. 6. COPD. 7. Hypertension. 8. Hyperlipidemia. 9. History of ulcer. 10. Left subclavian stenosis, status post stenting. 11. Left foot osteomyelitis, status post amputation. 12. Status post appendectomy. 13. Status post cholecystectomy. 14. Status post tonsillectomy. 15. Status post . 16. Status post cervical laminectomy. 17. Status post lumbar laminectomy. ALLERGIES: CYCLOSPORIN, PENICILLIN, SULFA, BENADRYL, MEROPENEM, VANCOMYCIN, CODEINE. MEDICATIONS: 1. Tylenol. 2. Albuterol inhaler. 3. Aspirin. 4. Lipitor. 5. Coreg. 6. Cipro 400 mg IV 12 hours. 7. Lactobacillus. 8. Insulin regular. 9. Brilinta. 10. Spiriva. 11. Linezolid 600 mg every 12 hours. 12. Flagyl 500 mg every 8 hours. SOCIAL HISTORY: She lives with her in [place]. She has no travel or sick contacts. Recentl y quit smoking. FAMILY HISTORY: Unknown, she is adopted. PHYSICAL EXAM: Vital Signs: Temperature is 37.6, heart rate 70, respiratory rate 18, blood pressur e 109/59, O2 sat 97% on room air. General: She is awake, not in distress. Neurologic: She is nancy ented x3, follows all commands. She has decreased sensation to light touch in the lower extremities bilaterally. Moves all of her extremities. HEENT: There is no conjunctival hemorrhage. Orophary nx without lesions. Neck: Neck is supple without nuchal rigidity. Lymph Nodes: There is no cervic al, supraclavicular, inguinal, axillary, or epitrochlear lymphadenopathy. Heart: Regular rate and rhythm without murmurs, rubs or gallops. Lungs: There are scattered bilateral expiratory wheezes. There is no rhonchi or rales. Abdomen: Soft, nontender, nondistended without hepatosplenomegaly. Skin: There is no rash or splinter hemorrhages. On the left medial buttock, there is a 3 cm area of induration and erythema without fluctuance or crepitus. It is tender. Musculoskeletal: No spine t enderness to palpation. Left hip, there is pain with flexion, internal, external rotation with guar ding. There is no tenderness to palpation over the left lateral hip. LABORATORY DATA: White blood cell count 13, hemoglobin 8, platelets 124. Creatinine 1.6, CRP was 25 0. Please see impression and recommendations outlined above, which I have discussed with Dr. Alfonso. Thank you for asking me to see Ms. Galarza in consultation. [id number]/[facility] #: [id number]
[2017-04-26] MEDS ORDERED: Fluconazole 100 MG TAB* TAB PO ONE (14:57)
[2017-04-26] MEDS: Atorvastatin* 20 MG TAB PO SCH (16:24)
[2017-04-26] MEDS: Gabapentin CAP(*) 300 MG PO SCH (21:22)
[2017-04-26] MEDS: Pramipexole TAB* 0.5 MG PO SCH (21:23)
[2017-04-26] MEDS: Ciprofloxacin 400MG IVPREMIX(* 400 MG/200 ML BAG IVPB SCH (21:25)
[2017-04-27] MEDS: Insulin LISPRO* 1 UNITS UNIT SUBCUT SCH ×6 (01:03→21:30)
[2017-04-27] MEDS ORDERED: PROCHLORPERAZINE INJ 5 MG/ML 2 ML VIAL IV PRN (01:48)
[2017-04-27] MEDS ORDERED: PROCHLORPERAZINE INJ 5 MG/ML 2 ML VIAL ONE (01:52)
[2017-04-27] MEDS: Linezolid 600 MG IVPREMIX(*) 600 MG/300 ML BAG IVPB SCH ×2 (04:36→16:40)
[2017-04-27] MEDS: Heparin VIAL(*) 5000 UNITS/ML VIAL (FIVE THOUSAND) SUBCUT SCH ×3 (05:46→21:33)
[2017-04-27] MEDS: Carvedilol TAB* 3.125 MG PO SCH ×2 (08:25→21:26)
[2017-04-27] MEDS: Ondansetron INJ* 2 MG/ML VIAL IV PRN ×2 (08:25→22:26)
[2017-04-27] MEDS: Morphine INJ* 4 MG/ML 1 ML SYRINGE IV PRN (08:25)
[2017-04-27] MEDS: Mometasone/Formoter 100/5 MDI INH SCH ×2 (09:25→19:38)
[2017-04-27] MEDS: Tiotropium CAP.INH* CAP.INH/18 MCG INH SCH (09:25)
[2017-04-27] MEDS ORDERED: LORazepam TAB(*) 0.5 MG PO ONE (09:32)
[2017-04-27] MEDS: amLODIPine TAB* 5 MG PO SCH (09:34)
[2017-04-27] MEDS: Ticagrelor* 90 MG TAB PO SCH ×2 (09:35→21:25)
[2017-04-27] MEDS: Aspirin EC Low Dose* 81 MG TAB.EC PO SCH (09:36)
[2017-04-27] MEDS ORDERED: LORazepam INJ* 2 MG/ML 1 ML VIAL IV PUSH ONE (09:56)
[2017-04-27 12:17] LABS: Body Fluid Appearance Clear
--- NOTE | 2017-04-27 12:37 | RAD ---
CPT II Codes: 6045F INDICATION: Evaluate for left hip sepsis. Approximately 24 seconds of fluoroscopy time was used. Under fluoroscopic guidance the left hip joint was localized. Using usual aseptic technique and lidocaine as a local anesthetic 25-gauge needle was placed within the left hip joint. Initial aspiration failed to reveal any fluid. Additional 5 mL of nonbacteriostatic saline was then injected into the joint space and a scant amount of return was obtained. Contrast was injected into the joint space to confirm needle placement. IMPRESSION: Left hip joint localized under fluoroscopic guidance. Fluid could not be freely aspirated. Nonbacteriostatic saline was injected and this can return was obtained. Specimen sent for cultures and sensitivity.
[2017-04-27 12:38] LABS: Body Fluid WBC 0 /mcL
[2017-04-27] MEDS: Lactobacillus Acidophilu (GG)* 1 CAP CAP PO SCH (12:49)
[2017-04-27] MEDS: Docusate CAP* 100 MG PO SCH ×2 (12:49→21:25)
[2017-04-27 12:52] LABS: Add Path Review? NO
[2017-04-27] MEDS ORDERED: NS 0.9% 1000 ML* 1,000 ML IV SCH (14:11)
--- NOTE | 2017-04-27 14:15 | PN ---
Subjective Date of Service: 04/27/17 Interval History: HOSPITALIST PROGRESS NOTE Patient seen and examined at bedside. Left hip pain is still present, but less intense than yesterday. [facility] Nausea and vomiting still present, but was able to tolerate PO meds. Family History: Unchanged from Admission Social History: Unchanged from Admission Past Medical History: Unchanged from Admission Objective Active Medications: Acetaminophen (Tylenol Tab*) 650 mg PO Q4H PRN PRN Reason: FEVER/PAIN Last Admin: 04/26/17 05:09 Dose: 650 mg Albuterol (Ventolin 2.5 Mg/3 Ml Neb.Roxy*) 2.5 mg INH Q2H PRN PRN Reason: SOB/WHEEZING Albuterol/Ipratropium (Duoneb (Albuterol 2.5 Mg/Ipratropium 0.5 Mg)) 1 neb INH TID PRN PRN Reason: SHORTNESS OF BREATH Amlodipine Besylate (Norvasc Tab*) 5 mg PO DAILY [facility] Last Admin: 04/27/17 09:34 Dose: 5 mg Aspirin (Aspirin Ec Low Dose*) 81 mg PO DAILY [facility] Last Admin: 04/27/17 09:36 Dose: 81 mg Atorvastatin Calcium (Lipitor*) 20 mg PO QPM [facility] Last Admin: 04/26/17 16:24 Dose: 20 mg Carvedilol (Coreg Tab*) 1.5625 mg PO DAILY [facility] Last Admin: 04/27/17 08:25 Dose: 1.5625 mg Carvedilol (Coreg Tab*) 4.6875 mg PO BEDTIME [facility] Last Admin: 04/26/17 21:22 Dose: Not Given Dextrose (D50w Syringe 50 Ml*) 12.5 gm IV PUSH .FOR FS < 60 - SS PRN PRN Reason: FS < 60 Docusate Sodium (Colace Cap*) 100 mg PO BID [facility] Last Admin: 04/27/17 12:49 Dose: 100 mg Gabapentin (Neurontin Cap(*)) 600 mg PO BEDTIME [facility] Last Admin: 04/26/17 21:22 Dose: Not Given Heparin Sodium (Porcine) (Heparin Vial(*)) 5,000 units SUBCUT Q8HR [facility] Last Admin: 04/27/17 13:00 Dose: 5,000 units Linezolid (Zyvox 600 Mg Ivpremix(*)) 600 mg in 300 mls @ 300 mls/hr IVPB Q12H [facility] Last Admin: 04/27/17 04:36 Dose: 300 mls/hr Ciprofloxacin/Dextrose (Cipro 400 Mg Ivpremix(*)) 400 mg in 200 mls @ 200 mls/ hr IVPB Q24H [facility] Last Admin: 04/26/17 21:25 Dose: 200 mls/hr Sodium Chloride (Ns 0.9% 1000 Ml*) 1,000 mls @ 100 mls/hr IV PER RATE [facility] Last Admin: 04/25/17 22:24 Dose: 100 mls/hr Insulin Human Lispro (Humalog*) 0 units SUBCUT Q4H [place] PRN Reason: Protocol Last Admin: 04/27/17 12:59 Dose: 3 units Insulin Human Lispro (Humalog*) 0 units SUBCUT .SEE PROTOCOL [place] PRN Reason: Protocol Last Admin: 04/26/17 11:40 Dose: 300 units Lactobacillus Rhamnosus (Culturelle*) 1 cap PO DAILY [facility] Last Admin: 04/27/17 12:49 Dose: 1 cap Mometasone Furoate/Formoterol Fumar (Dulera 100/5 Mdi*) 1 puff INH BID [facility] Last Admin: 04/27/17 09:25 Dose: Not Given Morphine Sulfate (Morphine Inj (Syringe)*) 4 mg IV Q4H PRN PRN Reason: PAIN Last Admin: 04/27/17 08:25 Dose: 4 mg Ondansetron HCl (Zofran Inj*) 4 mg IV Q6H PRN PRN Reason: NAUSEA Last Admin: 04/27/17 08:25 Dose: 4 mg Pramipexole Dihydrochloride (Mirapex Tab*) 4.5 mg PO BEDTIME [facility] Last Admin: 04/26/17 21:23 Dose: Not Given Prochlorperazine Edisylate (Compazine Inj*) 10 mg IV Q6H PRN PRN Reason: NAUSEA/VOMITING Last Admin: 04/27/17 09:43 Dose: 10 mg Ticagrelor (Brilinta*) 90 mg PO BID [facility] Last Admin: 04/27/17 09:35 Dose: 90 mg Tiotropium [place] (Spiriva Cap.Inh*) 1 cap INH DAILY [facility] Last Admin: 04/27/17 09:25 Dose: Not Given Vital Signs 07/18/17 07/18/17 07/18/17 13:00 13:09 14:00 Temperature 98.9 F Pulse Rate 72 78 Respiratory 13 16 Rate Blood Pressure 151/84 152/83 (mmHg) O2 Sat by Pulse 95 96 Oximetry Oxygen Devices in Use Now: Nasal Cannula Appearance: Pleasant lady lying in bed in NAD. Eyes: No Scleral Icterus Ears/Nose/Mouth/Throat: Mucous Membranes Moist Neck: Trachea Midline Respiratory: Symmetrical Chest Expansion and Respiratory Effort, Clear to Auscultation Cardiovascular: RRR - Normal S1 and S2 Abdominal: NL Sounds; No Tenderness; No Distention Extremities: - - Tenderness on palpation of left hip and inner thigh Neurological: Alert and Oriented x 3, NL Muscle Strength and Tone Lines/Tubes/Other Access: Clean, Dry and Intact Peripheral IV Nutrition: Taking PO's Result Diagrams: 04/26/17 05:17 04/26/17 05:17 Assess/Plan/Problems-Billing Assessment: Mrs. Galarza is a 57yo F with PMH of insulin dependent diabetes, CAD s/p CABG, PVD, CVA, chronic anemia, CKD stage 3, HTN, HLD, left subclavian stenosis s/p stent, left foot osteomyelitis s/p forefoot amputation, who presented to ED with fever and left hip pain, found to be septic. - Patient Problems (1) Sepsis Comment: - Patient met sepsis criteria on admission with fever and leukocytosis. - Multiple possible sources: UTI, buttock abscess, left hip ?septic arthritis. - Follow cultures. - Continue IVF, but decrease rate. (2) UTI (urinary tract infection) Comment: - She does not have many urinary symptoms, but urine culture is growing pansensitive E. coli. - Continue Ciprofloxacin. (3) Abscess of buttock, right Comment: - Suspect she's forming an abscess in that area. - With her h/o MRSA, will continue linezolide and ciprofloxacin. (4) Left hip pain Comment: - Concerned with possible septic arthritis, considering her severe pain and voluntary ROM limitation. - Joint aspiration requested with IR. - Continue Linezolide and Ciprofloxacin. - ID input appreciated. (5) Vaginal candidiasis Comment: - On external examination, patient has white, flaky, vaginal discharge , suggestive of candidiasis. - Fluconazole 150mg x 1 dose on 04/26/17. (6) LELIA (acute kidney injury) Comment: - Likely pre-renal secondary to uncontrolled DM and dehydration. - Responding to IVF. - Continue to monitor renal function. (7) Hyponatremia Comment: - Pseudohyponatremia in the setting of uncontrolled DM. - Improving. (8) Uncontrolled diabetes mellitus Comment: - Check A1c. - Better controlled with insulin pump. (9) Elevated troponin Comment: - Minimal elevation, likely associated with her CKD. - No c/o chest pain or dyspnea, but at risk for demand ischemia. - Continue to monitor. (10) Anemia Comment: - Suspect this is likely anemia of chronic disease. - BM biopsy done on 04/19/17 showed mildly hypercellular marrow with no evidence of hematologic malignancy. (11) DVT prophylaxis Comment: - SQ heparin. (12) Full code status Status and Disposition: Inpatient. Continue to monitor in ICU.
[2017-04-27 14:33] LABS: Hematocrit 27 % (35-47); Hemoglobin 8.4 g/dl (12.0-16.0); Mean Corpuscular HGB Conc 32 g/dl (31-36); Mean Corpuscular Hemoglobin 30 pg (27-31); Mean Corpuscular Volume 96 fL (80-97); Mean Platelet Volume 11 um3 (7.4-10.4); Red Blood Count 2.76 10^6/ul (4.0-5.4); Red Cell Distribution Width 15 % (10.5-15)
[2017-04-27 14:47] LABS: BUN/Creatinine Ratio 14.3 (8-20); C Reactive Protein 137.22 mg/L (< 5.00); Calcium 8.8 mg/dL (8.6-10.3); EGFR African American 53.1 (>60); EGFR Non-African American 41.3 (>60); Potassium 3.9 mmol/L (3.5-5.0)
[2017-04-27 14:54] LABS: Body Fluid Total Cells Counted 0
--- NOTE | 2017-04-27 15:08 | PN ---
Progress Note - Progress Note Date of Service: 04/27/17 SOAP: Subjective: DOS: 04/27/17 CC: fever HPI: 57 year old woman with recent BM biopsy now left hip pain, right medial buttock pain. No rash or diarrhea. Fevers better. Had left hip aspiration today. Objective: [] Vital Signs Temp 37.2 C 04/27/17 13:09 Pulse 78 04/27/17 14:00 Resp 15 04/27/17 14:00 BP 152/83 04/27/17 14:00 Pulse Ox 96 04/27/17 14:00 Intake & Output 04/26/17 04/27/17 04/27/17 18:59 06:59 18:59 Intake Total 524 887 62.5 Output Total 300 850 550 Balance 224 37 -487.5 Weight 156 lb 11.979 oz Intake: IV Fluids 524 887 62.5 IVF with ABX 524 887 62.5 Oral 0 Output: Urine 600 550 Mckeon 300 Emesis 250 Gen:awake, no distress HEENT:PERRL, MMM Neck:Supple Heart:RRR no murmur Lungs:CTA BL Abd:+BS NTND soft Skin: no rash; right medial 3 cm patch of induration and warmth MSK: no spine tenderness Laboratory Results - last 24 hr 04/25/17 04/26/17 04/26/17 15:35 16:09 20:16 WBC RBC Hgb Hct MCV MCH MCHC RDW Plt Count MPV Neut % (Auto) Lymph % (Auto) [place] % (Auto) Eos % (Auto) Baso % (Auto) Absolute Neuts (auto) Absolute Lymphs (auto) Absolute Monos (auto) Absolute Eos (auto) Absolute Basos (auto) Absolute Nucleated RBC Nucleated RBC % Sodium Potassium Chloride Carbon Dioxide Anion Gap BUN Creatinine Est GFR ( Amer) Est GFR (Non-Af Amer) BUN/Creatinine Ratio Glucose POC Glucose (mg/dL) 167 H 169 H Osmolality 298 H Calcium C-Reactive Protein Fluid Source Fluid Volume Fluid Color Fluid Appearance Fluid WBC Fluid RBC Fluid Tot Cell Count Fluid Neutrophils Fluid Crystals 04/27/17 04/27/17 04/27/17 01:01 04:34 08:23 WBC RBC Hgb Hct MCV MCH MCHC RDW Plt Count MPV Neut % (Auto) Lymph % (Auto) [place] % (Auto) Eos % (Auto) Baso % (Auto) Absolute Neuts (auto) Absolute Lymphs (auto) Absolute Monos (auto) Absolute Eos (auto) Absolute Basos (auto) Absolute Nucleated RBC Nucleated RBC % Sodium Potassium Chloride Carbon Dioxide Anion Gap BUN Creatinine Est GFR ( Amer) Est GFR (Non- Amer) BUN/Creatinine Ratio Glucose POC Glucose (mg/dL) 143 H 142 H 198 H Osmolality Calcium C-Reactive Protein Fluid Source Fluid Volume Fluid Color Fluid Appearance Fluid WBC Fluid RBC Fluid Tot Cell Count Fluid Neutrophils Fluid Crystals 04/27/17 04/27/17 04/27/17 11:05 11:05 12:41 WBC RBC Hgb Hct MCV MCH MCHC RDW Plt Count MPV Neut % (Auto) Lymph % (Auto) [place] % (Auto) Eos % (Auto) Baso % (Auto) Absolute Neuts (auto) Absolute Lymphs (auto) Absolute Monos (auto) Absolute Eos (auto) Absolute Basos (auto) Absolute Nucleated RBC Nucleated RBC % Sodium Potassium Chloride Carbon Dioxide Anion Gap BUN Creatinine Est GFR ([facility] Amer) Est GFR (Non- Amer) BUN/Creatinine Ratio Glucose POC Glucose (mg/dL) 158 H Osmolality Calcium C-Reactive Protein Fluid Source Synovial fluid Fluid Volume 0.9 Fluid Color Colorless Fluid Appearance Clear Fluid WBC 0 Fluid RBC 14 Fluid Tot Cell Count 0 Fluid Neutrophils Not Reportable Fluid Crystals None seen 04/27/17 04/27/17 14:25 14:25 WBC 14.0 H RBC 2.76 L Hgb 8.4 L Hct 27 L MCV 96 MCH 30 MCHC 32 RDW 15 Plt Count 180 MPV 11 H Neut % (Auto) 87.2 H Lymph % (Auto) 7.1 L [place] % (Auto) 4.8 Eos % (Auto) 0.6 Baso % (Auto) 0.3 Absolute Neuts (auto) 12.2 H Absolute Lymphs (auto) 1.0 Absolute Monos (auto) 0.7 Absolute Eos (auto) 0.1 Absolute Basos (auto) 0 Absolute Nucleated RBC 0.01 Nucleated RBC % 0 Sodium 130 L Potassium 3.9 Chloride 101 Carbon Dioxide 26 Anion Gap 3 BUN 19 Creatinine 1.33 H Est GFR ( Amer) 53.1 Est GFR (Non- Amer) 41.3 BUN/Creatinine Ratio 14.3 Glucose 130 H POC Glucose (mg/dL) Osmolality Calcium 8.8 C-Reactive Protein 137.22 H Fluid Source Fluid Volume Fluid Color Fluid Appearance Fluid WBC Fluid RBC Fluid Tot Cell Count Fluid Neutrophils Fluid Crystals Microbiology 04/27/17 11:05 Gram Stain - Final Joint Fluid(Synovial) 04/25/17 19:35 Urine Culture - Final Urine Escherichia Coli 04/25/17 15:17 Aerobic Blood Culture - Preliminary Blood Venous No Growth Day 1 Anaerobic Blood Culture - Preliminary No Growth Day 1 04/25/17 15:35 Aerobic Blood Culture - Preliminary Blood Venous No Growth Day 1 Anaerobic Blood Culture - Preliminary No Growth Day 1 Assessment: 1. left hip pain, no fracture on CT, dry tap today argues against septic hip or crystal disease 2. E.colu cystitis 3. left buttock abscess 4. IDDM 5. CAD s/p CAB 6. allergy to cephalosporin, PCN, sulfa, FQ, vanco 7. nausea Plan: 1. continue linezolid 600 mg iv q12hrs for cutaneous abscess, check US (ordered) 2. continue cipro 500 mg ov Q12hrs for UTI 3. will change to PO when nausea resolved
--- NOTE | 2017-04-27 17:16 | RAD ---
HISTORY: Right medial buttock induration COMPARISONS: None TECHNIQUE: Multiple transverse and watching ultrasound images were obtained of the area of induration using grayscale and color Doppler imaging FINDINGS: There is soft tissue edema. There is no loculated fluid collection IMPRESSION: EDEMA. NO LOCULATED FLUID SUCTIONED TO SUGGEST ABSCESS.
[2017-04-27] MEDS: Atorvastatin* 20 MG TAB PO SCH (18:06)
[2017-04-27] MEDS: Ciprofloxacin 400MG IVPREMIX(* 400 MG/200 ML BAG IVPB SCH (21:25)
[2017-04-27] MEDS: Gabapentin CAP(*) 300 MG PO SCH (21:26)
[2017-04-27] MEDS: Pramipexole TAB* 0.5 MG PO SCH (21:29)
[2017-04-28] MEDS: Insulin LISPRO* 1 UNITS UNIT SUBCUT SCH ×6 (01:12→22:45)
[2017-04-28] MEDS: Linezolid 600 MG IVPREMIX(*) 600 MG/300 ML BAG IVPB SCH ×2 (04:45→19:58)
[2017-04-28] MEDS: Heparin VIAL(*) 5000 UNITS/ML VIAL (FIVE THOUSAND) SUBCUT SCH ×3 (05:38→22:45)
[2017-04-28 06:09] LABS: Hematocrit 26 % (35-47); Hemoglobin 8.2 g/dl (12.0-16.0); Mean Corpuscular HGB Conc 32 g/dl (31-36); Mean Corpuscular Hemoglobin 30 pg (27-31); Mean Corpuscular Volume 95 fL (80-97); Mean Platelet Volume 11 um3 (7.4-10.4); Red Blood Count 2.69 10^6/ul (4.0-5.4); Red Cell Distribution Width 15 % (10.5-15); White Blood Count 11.9 10^3/ul (3.5-10.8)
[2017-04-28 06:24] LABS: BUN/Creatinine Ratio 14.6 (8-20); C Reactive Protein 100.68 mg/L (< 5.00); Calcium 8.4 mg/dL (8.6-10.3); EGFR African American 58.1 (>60); EGFR Non-African American 45.2 (>60); Potassium 4.1 mmol/L (3.5-5.0)
[2017-04-28] MEDS: Ondansetron INJ* 2 MG/ML VIAL IV PRN (08:20)
[2017-04-28] MEDS: Mometasone/Formoter 100/5 MDI INH SCH ×2 (08:24→21:44)
[2017-04-28] MEDS: Tiotropium CAP.INH* CAP.INH/18 MCG INH SCH (08:25)
[2017-04-28] MEDS: Carvedilol TAB* 3.125 MG PO SCH ×2 (09:11→21:48)
[2017-04-28] MEDS: amLODIPine TAB* 5 MG PO SCH (09:11)
[2017-04-28] MEDS: Docusate CAP* 100 MG PO SCH ×2 (09:12→21:51)
[2017-04-28] MEDS: Ticagrelor* 90 MG TAB PO SCH ×2 (09:12→21:51)
[2017-04-28] MEDS: Aspirin EC Low Dose* 81 MG TAB.EC PO SCH (09:12)
[2017-04-28] MEDS: Lactobacillus Acidophilu (GG)* 1 CAP CAP PO SCH (09:16)
--- NOTE | 2017-04-28 11:35 | PN ---
Progress Note - Progress Note Date of Service: 04/28/17 SOAP: Subjective: CC: fever HPI: 57 year old woman with left hip pain. left thigh pain, movement improved, pain easing off. Right medial buttock pain about the same. Objective: [] Vital Signs Temp 37.5 C 04/28/17 08:02 Pulse 72 04/28/17 10:00 Resp 19 04/28/17 10:00 BP 126/109 04/28/17 10:00 Pulse Ox 95 04/28/17 10:00 Intake & Output 04/27/17 04/28/17 04/28/17 18:59 06:59 18:59 Intake Total 62.5 1739 Output Total 1050 1150 Balance -987.5 589 Weight 158 lb 11.725 oz Intake: IV Fluids 62.5 1639 IVF with ABX 62.5 1639 Oral 100 Output: Urine 1050 1150 Gen:awake, no distress HEENT:PERRL, MMM Neck:Supple Heart:RRR no murmur Lungs:CTA BL Abd:+BS NTND soft Skin: no rash; right medial 3 cm patch of induration and warmth MSK: no spine tenderness, left prox thigh mild tenderness no induration or fluctuance Laboratory Results - last 24 hr 04/25/17 04/25/17 04/27/17 15:35 19:35 11:05 WBC RBC Hgb Hct MCV MCH MCHC RDW Plt Count MPV Neut % (Auto) Lymph % (Auto) [place] % (Auto) Eos % (Auto) Baso % (Auto) Absolute Neuts (auto) Absolute Lymphs (auto) Absolute Monos (auto) Absolute Eos (auto) Absolute Basos (auto) Absolute Nucleated RBC Nucleated RBC % Sodium Potassium Chloride Carbon Dioxide Anion Gap BUN Creatinine Est GFR ( Amer) Est GFR (Non-Af Amer) BUN/Creatinine Ratio Glucose POC Glucose (mg/dL) Osmolality 298 H Calcium C-Reactive Protein Urine Osmolality 433 Fluid Source Synovial fluid Fluid Volume 0.9 Fluid Color Colorless Fluid Appearance Clear Fluid WBC 0 Fluid RBC 14 Fluid Tot Cell Count 0 Fluid Neutrophils Not Reportable Fluid Crystals 04/27/17 04/27/17 04/27/17 11:05 12:41 14:25 WBC RBC Hgb Hct MCV MCH MCHC RDW Plt Count MPV Neut % (Auto) Lymph % (Auto) [place] % (Auto) Eos % (Auto) Baso % (Auto) Absolute Neuts (auto) Absolute Lymphs (auto) Absolute Monos (auto) Absolute Eos (auto) Absolute Basos (auto) Absolute Nucleated RBC Nucleated RBC % Sodium 130 L Potassium 3.9 Chloride 101 Carbon Dioxide 26 Anion Gap 3 BUN 19 Creatinine 1.33 H Est GFR ( Amer) 53.1 Est GFR (Non-Af Amer) 41.3 BUN/Creatinine Ratio 14.3 Glucose 130 H POC Glucose (mg/dL) 158 H Osmolality Calcium 8.8 C-Reactive Protein 137.22 H Urine Osmolality Fluid Source Fluid Volume Fluid Color Fluid Appearance Fluid WBC Fluid RBC Fluid Tot Cell Count Fluid Neutrophils Fluid Crystals None seen 04/27/17 04/27/17 04/27/17 14:25 16:43 20:45 WBC 14.0 H RBC 2.76 L Hgb 8.4 L Hct 27 L MCV 96 MCH 30 MCHC 32 RDW 15 Plt Count 180 MPV 11 H Neut % (Auto) 87.2 H Lymph % (Auto) 7.1 L [place] % (Auto) 4.8 Eos % (Auto) 0.6 Baso % (Auto) 0.3 Absolute Neuts (auto) 12.2 H Absolute Lymphs (auto) 1.0 Absolute Monos (auto) 0.7 Absolute Eos (auto) 0.1 Absolute Basos (auto) 0 Absolute Nucleated RBC 0.01 Nucleated RBC % 0 Sodium Potassium Chloride Carbon Dioxide Anion Gap BUN Creatinine Est GFR ( Amer) Est GFR (Non-Af Amer) BUN/Creatinine Ratio Glucose POC Glucose (mg/dL) 110 H 141 H Osmolality Calcium C-Reactive Protein Urine Osmolality Fluid Source Fluid Volume Fluid Color Fluid Appearance Fluid WBC Fluid RBC Fluid Tot Cell Count Fluid Neutrophils Fluid Crystals 04/28/17 04/28/17 04/28/17 01:06 04:43 05:35 WBC RBC Hgb Hct MCV MCH MCHC RDW Plt Count MPV Neut % (Auto) Lymph % (Auto) [place] % (Auto) Eos % (Auto) Baso % (Auto) Absolute Neuts (auto) Absolute Lymphs (auto) Absolute Monos (auto) Absolute Eos (auto) Absolute Basos (auto) Absolute Nucleated RBC Nucleated RBC % Sodium 132 L Potassium 4.1 Chloride 102 Carbon Dioxide 25 Anion Gap 5 BUN 18 Creatinine 1.23 H Est GFR ( Amer) 58.1 Est GFR (Non-Af Amer) 45.2 BUN/Creatinine Ratio 14.6 Glucose 149 H POC Glucose (mg/dL) 138 H 102 Osmolality Calcium 8.4 L C-Reactive Protein 100.68 H Urine Osmolality Fluid Source Fluid Volume Fluid Color Fluid Appearance Fluid WBC Fluid RBC Fluid Tot Cell Count Fluid Neutrophils Fluid Crystals 04/28/17 04/28/17 05:35 08:27 WBC 11.9 H RBC 2.69 L Hgb 8.2 L Hct 26 L MCV 95 MCH 30 MCHC 32 RDW 15 Plt Count 182 MPV 11 H Neut % (Auto) 85.1 H Lymph % (Auto) 7.4 L [place] % (Auto) 6.4 Eos % (Auto) 0.9 Baso % (Auto) 0.2 Absolute Neuts (auto) 10.2 H Absolute Lymphs (auto) 0.9 L Absolute Monos (auto) 0.8 Absolute Eos (auto) 0.1 Absolute Basos (auto) 0 Absolute Nucleated RBC 0.01 Nucleated RBC % 0 Sodium Potassium Chloride Carbon Dioxide Anion Gap BUN Creatinine Est GFR ( Amer) Est GFR (Non-Af Amer) BUN/Creatinine Ratio Glucose POC Glucose (mg/dL) 139 H Osmolality Calcium C-Reactive Protein Urine Osmolality Fluid Source Fluid Volume Fluid Color Fluid Appearance Fluid WBC Fluid RBC Fluid Tot Cell Count Fluid Neutrophils Fluid Crystals US buttock no drainable collection Assessment: 1. left hip pain, no fracture on CT, dry tap today argues against septic hip or crystal disease ?myositis 2. E.col1 cystitis 3. left buttock abscess 4. IDDM 5. CAD s/p CAB 6. allergy to cephalosporin, PCN, sulfa, FQ, vanco 7. nausea Plan: 1. continue linezolid 600 mg iv q12hrs for cutaneous abscess, may eventually liquify 2. continue cipro 500 mg ov Q12hrs for UTI 3. will change to PO when nausea resolved 35 minutes floor time >50% face to face in counseling regarding next steps in treatment. All questions answered.
[2017-04-28] MEDS: PROCHLORPERAZINE INJ 5 MG/ML 2 ML VIAL IV SCH ×2 (11:38→17:35)
[2017-04-28 14:06] LABS: Glucose, BF < 2 mg/dL
--- NOTE | 2017-04-28 17:12 | PN ---
Subjective Date of Service: 04/28/17 Interval History: HOSPITALIST PROGRESS NOTE Patient seen and examined at bedside. She feels a little better today. Left hip pain is less intense and she was able to transfer to [facility]. Nausea is still present, but her appetite is returning and she wishes to advance her diet. Family History: Unchanged from Admission Social History: Unchanged from Admission Past Medical History: Unchanged from Admission Objective Active Medications: Acetaminophen (Tylenol Tab*) 650 mg PO Q4H PRN PRN Reason: FEVER/PAIN Last Admin: 04/26/17 05:09 Dose: 650 mg Albuterol (Ventolin 2.5 Mg/3 Ml Neb.Roxy*) 2.5 mg INH Q2H PRN PRN Reason: SOB/WHEEZING Albuterol/Ipratropium (Duoneb (Albuterol 2.5 Mg/Ipratropium 0.5 Mg)) 1 neb INH TID PRN PRN Reason: SHORTNESS OF BREATH Amlodipine Besylate (Norvasc Tab*) 5 mg PO DAILY [facility] Last Admin: 04/28/17 09:11 Dose: 5 mg Aspirin (Aspirin Ec Low Dose*) 81 mg PO DAILY [facility] Last Admin: 04/28/17 09:12 Dose: 81 mg Atorvastatin Calcium (Lipitor*) 20 mg PO QPM [facility] Last Admin: 04/27/17 18:06 Dose: 20 mg Carvedilol (Coreg Tab*) 1.5625 mg PO DAILY [facility] Last Admin: 04/28/17 09:11 Dose: 1.5625 mg Carvedilol (Coreg Tab*) 4.6875 mg PO BEDTIME [facility] Last Admin: 04/27/17 21:26 Dose: 4.6875 mg Dextrose (D50w Syringe 50 Ml*) 12.5 gm IV PUSH .FOR FS < 60 - SS PRN PRN Reason: FS < 60 Docusate Sodium (Colace Cap*) 100 mg PO BID [facility] Last Admin: 04/28/17 09:12 Dose: 100 mg Gabapentin (Neurontin Cap(*)) 600 mg PO BEDTIME [facility] Last Admin: 04/27/17 21:26 Dose: 600 mg Heparin Sodium (Porcine) (Heparin Vial(*)) 5,000 units SUBCUT Q8HR [facility] Last Admin: 04/28/17 15:03 Dose: 5,000 units Linezolid (Zyvox 600 Mg Ivpremix(*)) 600 mg in 300 mls @ 300 mls/hr IVPB Q12H [facility] Last Admin: 04/28/17 04:45 Dose: 300 mls/hr Ciprofloxacin/Dextrose (Cipro 400 Mg Ivpremix(*)) 400 mg in 200 mls @ 200 mls/ hr IVPB Q24H [facility] Last Admin: 04/27/17 21:25 Dose: 200 mls/hr Insulin Human Lispro (Humalog*) 0 units SUBCUT Q4H [place] PRN Reason: Protocol Last Admin: 04/28/17 12:39 Dose: Not Given Insulin Human Lispro (Humalog*) 0 units SUBCUT .SEE PROTOCOL [place] PRN Reason: Protocol Last Admin: 04/26/17 11:40 Dose: 300 units Lactobacillus Rhamnosus (Culturelle*) 1 cap PO DAILY [facility] Last Admin: 04/28/17 09:16 Dose: 1 cap Mometasone Furoate/Formoterol Fumar (Dulera 100/5 Mdi*) 1 puff INH BID [facility] Last Admin: 04/28/17 08:24 Dose: 1 puff Morphine Sulfate (Morphine Inj (Syringe)*) 4 mg IV Q4H PRN PRN Reason: PAIN Last Admin: 04/27/17 08:25 Dose: 4 mg Ondansetron HCl (Zofran Inj*) 4 mg IV Q6H PRN PRN Reason: NAUSEA Last Admin: 04/28/17 08:20 Dose: 4 mg Pramipexole Dihydrochloride (Mirapex Tab*) 4.5 mg PO BEDTIME [facility] Last Admin: 04/27/17 21:29 Dose: 4.5 mg Prochlorperazine Edisylate (Compazine Inj*) 10 mg IV AC [facility] Last Admin: 04/28/17 11:38 Dose: 10 mg Ticagrelor (Brilinta*) 90 mg PO BID [facility] Last Admin: 04/28/17 09:12 Dose: 90 mg Tiotropium [place] (Spiriva Cap.Inh*) 1 cap INH DAILY [facility] Last Admin: 04/28/17 08:25 Dose: 1 cap Vital Signs 04/28/17 04/28/17 04/28/17 08:02 08:10 09:00 Temperature 99.5 F Pulse Rate 73 75 Respiratory 14 15 Rate Blood Pressure 153/86 151/81 (mmHg) O2 Sat by Pulse 97 95 Oximetry Oxygen Devices in Use Now: None Appearance: Pleasant lady lying in bed in NAD. Eyes: No Scleral Icterus Ears/Nose/Mouth/Throat: Mucous Membranes Moist Neck: Trachea Midline Respiratory: Symmetrical Chest Expansion and Respiratory Effort, Clear to Auscultation Cardiovascular: RRR - Normal S1 and S2 Abdominal: NL Sounds; No Tenderness; No Distention Extremities: No Edema Neurological: Alert and Oriented x 3, NL Muscle Strength and Tone Lines/Tubes/Other Access: Clean, Dry and Intact Peripheral IV Nutrition: Taking PO's Result Diagrams: 04/28/17 05:35 04/28/17 05:35 Assess/Plan/Problems-Billing Assessment: Mrs. Galarza is a 57yo F with PMH of insulin dependent diabetes, CAD s/p CABG, PVD, CVA, chronic anemia, CKD stage 3, HTN, HLD, left subclavian stenosis s/p stent, left foot osteomyelitis s/p forefoot amputation, who presented to ED with fever and left hip pain, found to be septic. - Patient Problems (1) Sepsis Comment: - Patient met sepsis criteria on admission with fever and leukocytosis. - Multiple possible sources: UTI, buttock abscess. - Urine culture growing E. coli. - D/c IVF. (2) UTI (urinary tract infection) Comment: - She does not have many urinary symptoms, but urine culture is growing pansensitive E. coli. - Continue Ciprofloxacin. (3) Abscess of buttock, right Comment: - Suspect she's forming an abscess in that area. - With her h/o MRSA, will continue linezolide and ciprofloxacin. (4) Left hip pain Comment: - Synovial fluid was negative for septic arthritis. - Continue Linezolide and Ciprofloxacin. - ID input appreciated. (5) Vaginal candidiasis Comment: - On external examination, patient has white, flaky, vaginal discharge , suggestive of candidiasis. - Fluconazole 150mg x 1 dose on 04/26/17. (6) LELIA (acute kidney injury) Comment: - Likely pre-renal secondary to uncontrolled DM and dehydration. - Responded to IVF. - Continue to monitor renal function. (7) Hyponatremia Comment: - Pseudohyponatremia in the setting of uncontrolled DM. - Improving. (8) Uncontrolled diabetes mellitus Comment: - Check A1c. - Better controlled with insulin pump. (9) Elevated troponin Comment: - Minimal elevation, likely associated with her CKD. - No c/o chest pain or dyspnea, but at risk for demand ischemia. - Continue to monitor. (10) Anemia Comment: - Suspect this is likely anemia of chronic disease. - BM biopsy done on 04/19/17 showed mildly hypercellular marrow with no evidence of hematologic malignancy. (11) DVT prophylaxis Comment: - SQ heparin. (12) Full code status Status and Disposition: Inpatient. Continue to monitor in ICU.
[2017-04-28] MEDS: Atorvastatin* 20 MG TAB PO SCH (17:36)
[2017-04-28] MEDS: Gabapentin CAP(*) 300 MG PO SCH (21:50)
[2017-04-28] MEDS: Pramipexole TAB* 0.5 MG PO SCH (21:51)
[2017-04-28] MEDS: Ciprofloxacin 400MG IVPREMIX(* 400 MG/200 ML BAG IVPB SCH (22:46)
[2017-04-29] MEDS: Insulin LISPRO* 1 UNITS UNIT SUBCUT SCH ×3 (01:24→08:31)
[2017-04-29] MEDS: Linezolid 600 MG IVPREMIX(*) 600 MG/300 ML BAG IVPB SCH (04:55)
[2017-04-29 05:34] LABS: BUN/Creatinine Ratio 18.3 (8-20); Calcium 8.5 mg/dL (8.6-10.3); EGFR African American 62.8 (>60); EGFR Non-African American 48.8 (>60)
[2017-04-29] MEDS: Heparin VIAL(*) 5000 UNITS/ML VIAL (FIVE THOUSAND) SUBCUT SCH (05:52)
[2017-04-29] MEDS: PROCHLORPERAZINE INJ 5 MG/ML 2 ML VIAL IV SCH (08:14)
[2017-04-29] MEDS: Aspirin EC Low Dose* 81 MG TAB.EC PO SCH (08:19)
[2017-04-29] MEDS: Ticagrelor* 90 MG TAB PO SCH (08:19)
[2017-04-29] MEDS: amLODIPine TAB* 5 MG PO SCH (08:20)
[2017-04-29] MEDS: Carvedilol TAB* 3.125 MG PO SCH (08:20)
[2017-04-29] MEDS: Docusate CAP* 100 MG PO SCH (08:29)
[2017-04-29] MEDS: Mometasone/Formoter 100/5 MDI INH SCH (09:48)
[2017-04-29] MEDS: Tiotropium CAP.INH* CAP.INH/18 MCG INH SCH (09:48)
[2017-04-29] MEDS: Lactobacillus Acidophilu (GG)* 1 CAP CAP PO SCH (10:31)
[2017-04-29 14:46] VITALS: BP 123/60
--- NOTE | 2017-04-30 02:12 | DS ---
CC: Dr. Valdes; Dr. Damon, Infectious Disease Specialist * DISCHARGE SUMMARY: DATE OF ADMISSION: 04/25/17 DATE OF DISCHARGE: 04/29/17 PRIMARY CARE PROVIDER: Dr. Valdes. DISCHARGE DIAGNOSES: 1. Sepsis. 2. E. coli urinary tract infection. 3. Right buttock abscess. 4. Left hip pain, likely musculoskeletal in nature. 5. Vaginal candidiasis. 6. Acute kidney injury, likely prerenal. 7. Pseudohyponatremia secondary to uncontrolled diabetes. 8. Minimally elevated troponin, likely secondary to chronic kidney disease. 9. Anemia of chronic disease. SECONDARY DIAGNOSES: 1. Insulin dependent diabetes. 2. Coronary artery disease, status post CABG. 3. Peripheral vascular disease. 4. Cardiovascular accident. 5. Chronic anemia. 6. Chronic kidney disease stage 3. 7. Hypertension. 8. Hyperlipidemia. 9. Left subclavian stenosis, status post stent. 10. Left foot osteomyelitis, status post forefoot amputation. MEDICATION LIST: 1. Evolocumab 140 mg subcutaneously every 2 weeks. 2. Lactobacillus acidophilus 1 capsule p.o. daily. 3. Colace 100 mg p.o. b.i.d. 4. Heparin flush 3 mL as you flush your port daily. 5. Carvedilol 6.25 mg. The patient takes 1.5 mg in the morning and 4.6 mg at bedtime. 6. Atorvastatin 20 mg p.o. at bedtime. 7. DuoNeb 1 nebulized t.i.d. as needed for shortness of breath. 8. Enalapril 5 mg p.o. daily at noon. 9. Glucagon 1 mg IM as needed for hypoglycemia. 10. Gabapentin 1800 p.o. at bedtime. 11. EpiPen 0.3 mg IM as needed for allergic reaction. 12. Dulera 100/5 one puff inhaled b.i.d. 13. Metolazone 5 mg p.o. daily p.r.n. 30 minutes before torsemide as needed for weight gain more than 2 pounds. 14. Mirapex 5 mg p.o. at bedtime. 15. Nitroglycerin 0.4 mg sublingual q.5 minutes p.r.n. chest pain. 16. Spironolactone 12.5 mg on Mondays, Wednesdays and Fridays. 17. Spiriva 1 capsule inhaled daily. 18. Brilinta 90 mg p.o. b.i.d. 19. Aspirin 81 mg p.o. daily. 20. Torsemide 20 mg p.o. daily as needed for weight gain more than 2 pounds. New medications: 1. Ciprofloxacin 500 mg p.o. q.12 for 5 more days. 2. Linezolid 600 mg p.o. q.12 for 14 more days. HOSPITAL COURSE: Ms. Galarza is a 57 [id number] with a past medical history as stated above that presented to the emergency room with complaints of left leg pain, fever and uncontrolled diabetes. The patient was initially admitted to the intensive care unit as she met sepsis criteria with fever and with leukocytosis. She was found to have an abnormal urinalysis and urine culture grew pansensitive E. coli. She also had complaints of left hip/leg pain and there was concern for possible septic arthritis, but a tap of the fluid showed 0 wbc's. The patient was started on ciprofloxacin and linezolid with progressive improvement of her symptoms. She was seen in consultation by Infectious Disease, Dr. Damon, and he was in agreement with this treatment. As the patient became afebrile, had significant improvement of her symptoms with resolution of her pain. The patient is medically stable to be discharged home today to follow up with her primary care provider, Dr. Valdes, and with Dr. Damon as outpatient. PHYSICAL EXAMINATION: Vital Signs: Temperature 98.8, heart rate is 65, respiratory rate is 18, oxygen saturation 97% on room air, blood pressure is 123 /60. General: The patient is a pleasant lady, sitting up in the chair, in no acute distress, anxious for discharge. CVS: Normal S1 and S2. Regular rate and rhythm. Chest: Breath sounds present bilaterally with no added sounds. Abdomen is soft. Bowel sounds are present. Extremities: No edema. The patient has an eschar on her left ankle, but with no erythema or drainage. Neuro: She is alert, awake, and oriented x3. Able to move all 4 extremities. DIET: Heart healthy, consistent carb diet. ACTIVITIES: As tolerated. DISPOSITION: To home. STATUS WHILE IN THE HOSPITAL: Inpatient. Please keep in mind this is a summarized version of this patient's hospital stay. If you need more information, please feel free to call me at [phone] or please obtain the full medical records. TIME SPENT: Approximately 50 minutes were spent to complete this discharge. [id number]/[facility] #: [id number] ABNER
== END 2017-04-29 15:15 | disposition home health service (06) | DRG 872 ==
LOC: ED 14:48 → ICU 18:11 → MEDTELE 04-28 08:44
PROVIDERS: ADMIT Hospitalist; ATTEND Internal Medicine
PROC: 0S9B3ZX Drainage of Left Hip Joint, Percutaneous Approach, Diagnostic (ICD-10-PCS; principal; 2017-04-27)
DX: A41.9 Sepsis, unspecified organism (principal); E10.22 Type 1 diabetes mellitus with diabetic chronic kidney disease; N17.9 Acute kidney failure, unspecified; I50.9 Heart failure, unspecified; I13.0 Hypertensive heart and chronic kidney disease with heart failure and stage 1 through stage 4 chronic kidney disease, or unspecified chronic kidney disease; E87.1 Hypo-osmolality and hyponatremia; E10.42 Type 1 diabetes mellitus with diabetic polyneuropathy; N18.3 Chronic kidney disease, stage 3 (moderate); B37.3 Candidiasis of vulva and vagina; N39.0 Urinary tract infection, site not specified; L02.31 Cutaneous abscess of buttock; N18.9 Chronic kidney disease, unspecified; J44.9 Chronic obstructive pulmonary disease, unspecified; G25.81 Restless legs syndrome; E78.5 Hyperlipidemia, unspecified; I25.10 Atherosclerotic heart disease of native coronary artery without angina pectoris; I70.8 Atherosclerosis of other arteries; R74.8 Abnormal levels of other serum enzymes; G47.33 Obstructive sleep apnea (adult) (pediatric); Z96.41 Presence of insulin pump (external) (internal); E78.00 Pure hypercholesterolemia, unspecified; E04.9 Nontoxic goiter, unspecified; M19.90 Unspecified osteoarthritis, unspecified site; M79.7 Fibromyalgia; M81.0 Age-related osteoporosis without current pathological fracture; M41.9 Scoliosis, unspecified; H91.93 Unspecified hearing loss, bilateral; G43.909 Migraine, unspecified, not intractable, without status migrainosus; E10.51 Type 1 diabetes mellitus with diabetic peripheral angiopathy without gangrene; E10.649 Type 1 diabetes mellitus with hypoglycemia without coma; F41.9 Anxiety disorder, unspecified; F32.9 Major depressive disorder, single episode, unspecified; H26.9 Unspecified cataract; R40.2412 Glasgow coma scale score 13-15, at arrival to emergency department; B96.20 Unspecified Escherichia coli [E. coli] as the cause of diseases classified elsewhere; M25.552 Pain in left hip; E86.0 Dehydration; R11.0 Nausea; D63.8 Anemia in other chronic diseases classified elsewhere; Z89.432 Acquired absence of left foot; Z86.73 Personal history of transient ischemic attack (TIA), and cerebral infarction without residual deficits; I25.2 Old myocardial infarction; Z90.49 Acquired absence of other specified parts of digestive tract; Z95.1 Presence of aortocoronary bypass graft; Z88.0 Allergy status to penicillin; Z88.2 Allergy status to sulfonamides; Z88.8 Allergy status to other drugs, medicaments and biological substances; Z88.1 Allergy status to other antibiotic agents; Z88.5 Allergy status to narcotic agent; Z91.030 Bee allergy status; Z87.891 Personal history of nicotine dependence; Z95.810 Presence of automatic (implantable) cardiac defibrillator; Z87.01 Personal history of pneumonia (recurrent); Z86.711 Personal history of pulmonary embolism; Z99.81 Dependence on supplemental oxygen; Z90.710 Acquired absence of both cervix and uterus; Z98.1 Arthrodesis status; Z79.82 Long term (current) use of aspirin; Z79.02 Long term (current) use of antithrombotics/antiplatelets; Z79.84 Long term (current) use of oral hypoglycemic drugs
CPT/HCPCS: 20610; 36415; 71010; 74176; 77002; 80048; 80053; 81003; 81015; 82550; 82570; 82803; 82945; 82947; 83036; 83605; 83880; 83930; 83935; 84300; 84484; 85025; 85730; 86140; 87040; 87070; 87077; 87086; 87186; 87205; 87641; 89051; 89060; 93005; 94640; 94760; 99406; A9270-GY; J0744; J0780; J1642; J1644; J2020; J2060; J2270; J2405; Q9965

== ENCOUNTER 2017-06-16 12:52 | Inpatient (IN) | payer MEDICARE, MEDICAID ==
[2017-06-16] MEDS ORDERED: Clindamycin 600 MG IVPREMIX(* 600 MG/50 ML SDV IV ONE (13:27)
--- NOTE | 2017-06-16 14:14 | RAD ---
Indication: Ankle pain. 3 views of the left ankle in the cast is noted. There is osteopenia noted. Fusion of the tibia to the remainder of the calcaneus which is unchanged in position since previous exam. Hardware has been removed. IMPRESSION: Osteopenia without definite abnormal erosion or fracture. Fusion of the tibia to the remnant of the calcaneus.
[2017-06-16 14:25] LABS: Hematocrit 28 % (35-47); Hemoglobin 9.2 g/dl (12.0-16.0); Mean Corpuscular HGB Conc 32 g/dl (31-36); Mean Corpuscular Hemoglobin 30 pg (27-31); Mean Corpuscular Volume 91 fL (80-97); Mean Platelet Volume 10 um3 (7.4-10.4); Red Blood Count 3.11 10^6/ul (4.0-5.4); Red Cell Distribution Width 18 % (10.5-15); White Blood Count 11.2 10^3/ul (3.5-10.8)
[2017-06-16 14:35] LABS: Albumin 2.8 g/dL (3.2-5.2); BUN/Creatinine Ratio 22.4 (8-20); C Reactive Protein 50.37 mg/L (< 5.00); EGFR African American 52.6 (>60); EGFR Non-African American 40.9 (>60); Globulin 3.7 g/dL (2-4); Total Bilirubin 0.4 mg/dL (0.2-1.0); Total Protein 6.5 g/dL (6.4-8.9)
[2017-06-16 15:02] LABS: Urine Bacteria 1+ (Absent); Urine Bilirubin Negative (Negative); Urine Glucose 3+(>=500 mg/dL) (Negative); Urine Nitrite Positive (Negative)
[2017-06-16] MEDS ORDERED: Morphine INJ* 4 MG/ML 1 ML CARPUJECT IV ONE (15:38)
[2017-06-16] MEDS ORDERED: Ondansetron INJ* 2 MG/ML VIAL IV ONE (15:40)
--- NOTE | 2017-06-16 16:32 | ED ---
Keo Wallace Benjamin, scribed for Riccardo Morales MD on 06/16/17 at 1329 . Lower Extremity - HPI Summary HPI Summary: 57yo female with left foot amputation last year comes into ED today after her PCP recommended her to. Pt reports burning pain in her left leg that is spreading up her leg and low grade fever yesterday. Pt called her PCP Dr. Damno, who told her to come get seen at the ED. Pt also reports chills. Took ibuprofen 1 hour ago. Pt is on abx currently. - History of Current Complaint Chief Complaint: EDGeneral Stated Complaint: LT FOOT COMPLAINT Hx Obtained From: Patient Onset/Duration: Days - 1 day ago Severity Initially: Moderate Severity Currently: Moderate Pain Intensity: 8 Pain Scale Used: 0-10 Numeric Location: Is Discrete @ - left foot Character Of Pain: Burning Associated Signs And Symptoms: Positive: Fever Aggravating Factor(s): Nothing Alleviating Factor(s): Nothing - Allergies/Home Medications Allergies/Adverse Reactions: Allergies Allergy/AdvReac Type Severity Reaction Status Date / Time Cephalosporins Allergy Severe Shortness Verified 04/25/17 14:50 of Breath Penicillins Allergy Intermediate Hives Verified 04/25/17 14:50 Sulfa Drugs Allergy Intermediate Hives Verified 04/25/17 14:50 Bee Venom Allergy Swelling Verified 04/25/17 14:50 Of Face,Lips,& Throat Diphenhydramine Allergy Difficulty Verified 04/25/17 14:50 Breathing Meropenem Allergy Diarrhea Verified 04/25/17 14:50 Vancomycin Allergy Hives Verified 04/25/17 14:50 Codeine AdvReac Intermediate Vomiting Verified 04/25/17 14:50 bee sting Allergy Severe Hives, Uncoded 04/25/17 14:50 CLOSES UP THROAT Home Medications: Home Medications Atorvastatin* [Lipitor*] 20 mg PO BEDTIME 06/16/17 [History Confirmed 06/16/17] Carvedilol TAB* [Coreg TAB*] 1.5625 mg PO QAM 06/16/17 [History Confirmed ] Carvedilol TAB* [Coreg TAB*] 4.6875 mg PO BEDTIME 06/16/17 [History Confirmed ] Enalapril TAB* [Vasotec TAB*] 5 mg PO DAILY@1200 06/16/17 [History Confirmed 03/27] PMH/Surg Hx/FS Hx/Imm Hx Endocrine/Hematology History: Reports: Hx Anticoagulant Therapy, Hx Blood Transfusions, Hx Diabetes, Hx Thyroid Disease - Goiter, Hx Anemia, Other Endocrine/Hematological Disorders - anemia Denies: Hx Systemic Lupus Erythematosus Cardiovascular History: Reports: Hx Angioplasty, Hx Auto Implanted Cardiovert Defib, Hx Cardiac Arrest, Hx Congestive Heart Failure, Hx Coronary Artery Disease - CABGx3, Hx Hypercholesterolemia, Hx Hypertension, Hx Myocardial Infarction, Hx Pacemaker/ICD - 2016 - ICD, Hx Peripheral Vascular Disease, Hx Valvular Heart Disease - "Leaky valve", Other Cardiovascular Problems/Disorders - cardiomyopathy Denies: Hx Angina Respiratory History: Reports: Hx Asthma, Hx Chronic Bronchitis, Hx Chronic Obstructive Pulmonary Disease (COPD), Hx Pneumonia, Hx Pulmonary Edema, Hx Pulmonary Embolism, Hx Seasonal Allergies, Hx Sleep Apnea, Other Respiratory Problems/Disorders - respiratory failure, uses home oxygen GI History: Reports: Hx Gall Bladder Disease Denies: Hx Ulcer, Other GI Disorders History: Reports: Hx Chronic Renal Failure - CKD Stage 3, Other Problems/ Disorders - 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 Denies: Hx Dialysis, Hx Renal Disease Musculoskeletal History: Reports: Hx Arthritis, Hx Back Problems, Hx Fibromyalgia, Hx Osteoporosis, Hx Scoliosis, Other Musculoskeletal History - L foot amputaion, restless leg syndrome, osteomylitis Denies: Hx Rheumatoid Arthritis Sensory History: Reports: Hx Cataracts, Hx Contacts or Glasses, Hx Vision Problem, Hx Hearing Problem - R ear numbness and decreased hearing r/t TIA per pt Denies: Hx Hearing Aid Opthamlomology History: Reports: Hx Cataracts, Hx Contacts or Glasses, Hx Vision Problem Neurological History: Reports: Hx Migraine, Hx Nerve Disease - Diabetic Periperal Neuropathy, Hx Seizures, Hx Transient Ischemic Attacks (TIA), Other Neuro Impairments/Disorders - diabetic neuropathy Denies: Hx Dementia Psychiatric History: Reports: Hx Anxiety, Hx Depression Denies: Hx Panic Disorder - Cancer History Hx Chemotherapy: No - Surgical History Surgery Procedure, Year, and Place: CARDIAC STENTS(4 PROMUS AND 1 VISIPRO PLACED AT [facility] [place] ONLY DUE TO CONDITIONAL STATUS OF MAX SPAT. GRAD. 720), TRIPLE BYPASS, BILATERAL CAROTID ENDARTERECTOMY ,LAP ADDY,HYSTERECTOMY,LEFT GREAT TOE AMPUTATION,APPY, T&A ,STERNAL WIRES ,LUMBAR SPINE FUSION,CSP FUSION , C SECTION,LEFT FOOT PARTIALLY(has heel only per pt) AMPUTATED-BACK SURGERY- LASER SURGERY. defib,port Hx Anesthesia Reactions: No - Immunization History Date of Tetanus Vaccine: 2015 Date of Influenza Vaccine: 2015 Infectious Disease History: Yes Infectious Disease History: Reports: Hx of Known/Suspected MRSA Denies: Hx Clostridium Difficile, Hx Hepatitis, Hx Human Immunodeficiency Virus (HIV), Hx Shingles, Hx Tuberculosis, Hx Known/Suspected VRE, Hx Known/ Suspected VRSA, History Other Infectious Disease, Traveled Outside the [place] in Last 30 Days - Family History Known Family History: Positive: Unknown - pt is adopted - Social History Occupation: Disabled Lives: With Family Alcohol Use: None Substance Use Type: Reports: None Hx Tobacco Use: Yes Smoking Status (MU): Light Every Day Tobacco Smoker Type: Cigarettes Amount Used/How Often: 6 cigs/day Length of Time of Smoking/Using Tobacco: 30 years Have You Smoked in the Last Year: Yes Review of Systems Constitutional: Negative Positive: Fever Eyes: Negative ENT: Negative Cardiovascular: Negative Respiratory: Negative Gastrointestinal: Negative Genitourinary: Negative Positive: Myalgia - left foot Skin: Negative Neurological: Negative Psychological: Normal All Other Systems Reviewed And Are Negative: Yes Physical Exam Triage Information Reviewed: Yes Vital Signs On Initial Exam: Initial Vitals Temp Pulse Resp BP Pulse Ox 97.9 F 91 18 193/91 100 06/16/17 12:53 06/16/17 12:53 06/16/17 12:53 06/16/17 12:53 06/16/17 12:53 Vital Signs Reviewed: Yes Appearance: Positive: Well-Appearing, Well-Nourished, Pain Distress - mild Skin: Positive: Warm, Skin Color Reflects Adequate Perfusion, Dry Head/Face: Positive: Normal Head/Face Inspection Eyes: Positive: EOMI, JONI ENT: Positive: Normal ENT inspection, Hearing grossly normal, TMs normal Neck: Positive: Supple, Nontender Respiratory/Lung Sounds: Positive: Clear to Auscultation, Breath Sounds Present Cardiovascular: Positive: RRR, Pulses are Symmetrical in both Upper and Lower Extremities Abdomen Description: Positive: Nontender, Soft Bowel Sounds: Positive: Present Musculoskeletal: Positive: Strength/ROM Intact Neurological: Positive: Sensory/Motor Intact, Alert, Oriented to Person Place, Time Psychiatric: Positive: Affect/Mood Appropriate - Lea Coma Scale Coma Scale Total: 15 Diagnostics - Vital Signs Vital Signs Temp Pulse Resp BP Pulse Ox 06/16/17 13:10 98.0 F 92 18 199/103 100 06/16/17 12:53 97.9 F 91 18 193/91 100 - Laboratory Lab Results: Lab Results 06/16/17 06/16/17 06/16/17 Range/Units 14:05 14:05 14:05 WBC (3.5-10.8) 10^3/ul RBC (4.0-5.4) 10^6/ul Hgb (12.0-16.0) g/dl Hct (35-47) % MCV (80-97) fL MCH (27-31) pg MCHC (31-36) g/dl RDW (10.5-15) % Plt Count (150-450) 10^3/ul MPV (7.4-10.4) um3 Neut % (Auto) (38-83) % Lymph % (Auto) (25-47) % Chaves % (Auto) (1-9) % Eos % (Auto) (0-6) % Baso % (Auto) (0-2) % Absolute Neuts (auto) (1.5-7.7) 10^3/ul Absolute Lymphs (auto) (1.0-4.8) 10^3/ul Absolute Monos (auto) (0-0.8) 10^3/ul Absolute Eos (auto) (0-0.6) 10^3/ul Absolute Basos (auto) (0-0.2) 10^3/ul Absolute Nucleated RBC 10^3/ul Nucleated RBC % INR (Anticoag Therapy) 0.88 L (0.89-1.11) APTT 28.0 (26.0-36.3) seconds Sodium 124 L (133-145) mmol/L Potassium 5.0 (3.5-5.0) mmol/L Chloride 91 L (101-111) mmol/L Carbon Dioxide 26 (22-32) mmol/L Anion Gap 7 (2-11) mmol/L BUN 30 H (6-24) mg/dL Creatinine 1.34 H (0.51-0.95) mg/dL Est GFR ( Amer) 52.6 (>60) Est GFR (Non-Af Amer) 40.9 (>60) BUN/Creatinine Ratio 22.4 H (8-20) Glucose 685 H* (70-100) mg/dL Lactic Acid (0.5-2.0) mmol/L Calcium 9.0 (8.6-10.3) mg/dL Total Bilirubin 0.40 (0.2-1.0) mg/dL AST 10 L (13-39) U/L ALT 6 L (7-52) U/L Alkaline Phosphatase 184 H (34-104) U/L C-Reactive Protein 50.37 H (< 5.00) mg/L B-Natriuretic Peptide 866 H ( - 100) pg/mL Total Protein 6.5 (6.4-8.9) g/dL Albumin 2.8 L (3.2-5.2) g/dL Globulin 3.7 (2-4) g/dL Albumin/Globulin Ratio 0.8 L (1-3) Urine Color Urine Appearance Urine pH (5-9) Ur Specific Jessie (1.010-1.030) Urine Protein (Negative) Urine Ketones (Negative) Urine Blood (Negative) Urine Nitrate (Negative) Urine Bilirubin (Negative) Urine Urobilinogen (Negative) Ur Leukocyte Esterase (Negative) Urine WBC (Auto) (Absent) Urine RBC (Auto) (Absent) Ur Squamous Epith Cells (Absent) Urine Bacteria (Absent) Urine Glucose (Negative) 06/16/17 06/16/17 06/16/17 Range/Units 14:05 14:05 14:21 WBC 11.2 H (3.5-10.8) 10^3/ul RBC 3.11 L (4.0-5.4) 10^6/ul Hgb 9.2 L (12.0-16.0) g/dl Hct 28 L (35-47) % MCV 91 (80-97) fL MCH 30 (27-31) pg MCHC 32 (31-36) g/dl RDW 18 H (10.5-15) % Plt Count 207 (150-450) 10^3/ul MPV 10 (7.4-10.4) um3 Neut % (Auto) 83.5 H (38-83) % Lymph % (Auto) 10.2 L (25-47) % Chaves % (Auto) 3.8 (1-9) % Eos % (Auto) 1.6 (0-6) % Baso % (Auto) 0.9 (0-2) % Absolute Neuts (auto) 9.4 H (1.5-7.7) 10^3/ul Absolute Lymphs (auto) 1.1 (1.0-4.8) 10^3/ul Absolute Monos (auto) 0.4 (0-0.8) 10^3/ul Absolute Eos (auto) 0.2 (0-0.6) 10^3/ul Absolute Basos (auto) 0.1 (0-0.2) 10^3/ul Absolute Nucleated RBC 0.01 10^3/ul Nucleated RBC % 0 INR (Anticoag Therapy) (0.89-1.11) APTT (26.0-36.3) seconds Sodium (133-145) mmol/L Potassium (3.5-5.0) mmol/L Chloride (101-111) mmol/L Carbon Dioxide (22-32) mmol/L Anion Gap (2-11) mmol/L BUN (6-24) mg/dL Creatinine (0.51-0.95) mg/dL Est GFR ( Amer) (>60) Est GFR (Non-Af Amer) (>60) BUN/Creatinine Ratio (8-20) Glucose (70-100) mg/dL Lactic Acid 2.1 H* (0.5-2.0) mmol/L Calcium (8.6-10.3) mg/dL Total Bilirubin (0.2-1.0) mg/dL AST (13-39) U/L ALT (7-52) U/L Alkaline Phosphatase (34-104) U/L C-Reactive Protein (< 5.00) mg/L B-Natriuretic Peptide ( - 100) pg/mL Total Protein (6.4-8.9) g/dL Albumin (3.2-5.2) g/dL Globulin (2-4) g/dL Albumin/Globulin Ratio (1-3) Urine Color Yellow Urine Appearance Clear Urine pH 6.0 (5-9) Ur Specific Jessie 1.024 (1.010-1.030) Urine Protein 2+(100 mg/dl) H (Negative) Urine Ketones Negative (Negative) Urine Blood 2+ H (Negative) Urine Nitrate Positive H (Negative) Urine Bilirubin Negative (Negative) Urine Urobilinogen Negative (Negative) Ur Leukocyte Esterase Trace H (Negative) Urine WBC (Auto) 2+(11-20/hpf) H (Absent) Urine RBC (Auto) 2+(6-10/hpf) H (Absent) Ur Squamous Epith Cells Present H (Absent) Urine Bacteria 1+ H (Absent) Urine Glucose 3+(>=500 mg/dl) H (Negative) Result Diagrams: 06/16/17 14:05 06/16/17 14:05 Lab Statement: Any lab studies that have been ordered have been reviewed, and results considered in the medical decision making process. - Radiology Ankle XR Xray Interpretation: Positive (See Comments) - IMPRESSION: Osteopenia without definite abnormal erosion or fracture. Fusion of the tibia to the remnant of the calcaneus. Radiology Interpretation Completed By: Radiologist - ED physician has reviewed this radiology report and agrees. Lower Extremity Course/Dx - Course Course Of Treatment: Reviewed pts medication and allergy lists. High blood pressure noted. 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 NO CRITICAL CARE TIME. - Diagnoses Provider Diagnoses: Amputation stump infection, UTI (urinary tract infection), Diabetes Discharge - Discharge Plan Condition: Stable Disposition: ADMITTED TO [facility] Referrals: Moises Valdes MD [Primary Care Provider] - The documentation as recorded by the Keo sherwood Benjamin accurately reflects the service I personally performed and the decisions made by , Riccardo Morales MD.
[2017-06-16] MEDS ORDERED: Insulin REGULAR(*) 1 UNITS UNIT IV PUSH ONE (16:51)
[2017-06-16] MEDS ORDERED: Acetaminophen TAB* 325 MG PO PRN (16:51)
[2017-06-16] MEDS ORDERED: Dextrose 50% Syringe 50 ML* 25 GM/50 ML SYRINGE IV PUSH PRN (16:51)
[2017-06-16] MEDS ORDERED: Evolocumab [Repatha Sureclick] 140 MG SC SCH (17:00)
[2017-06-16] MEDS ORDERED: NS 0.9% 1000 ML* 1,000 ML IV SCH (17:00)
[2017-06-16] MEDS ORDERED: Ondansetron INJ* 2 MG/ML VIAL ONE (17:10)
[2017-06-16] MEDS ORDERED: Albuterol 2.5 MG/3 ML NEB.SOL* (0.083%) INH PRN (17:14)
[2017-06-16] MEDS: Ondansetron INJ* 2 MG/ML VIAL IV PRN (17:14)
[2017-06-16] MEDS ORDERED: Insulin GLARGINE(*) 1 UNITS UNIT SUBCUT SCH (18:00)
[2017-06-16] MEDS: Insulin LISPRO* 1 UNITS UNIT SUBCUT SCH ×2 (18:24→21:28)
[2017-06-16] MEDS ORDERED: Iodixanol* (CONTRAST) 320 MG/ML 100 ML SDV IV ONE (18:46)
--- NOTE | 2017-06-16 19:31 | RAD ---
Indication: Post amputation of the LEFT foot . Wound on the plantar aspect of the LEFT heel. Comparison: Radiographs of the same date. Technique: CT of the distal LEFT lower leg through the amputation site at the hindfoot. 100 mL Visipaque 320 contrast administered IV. Multiplanar reformation. Report: Three-vessel runoff to the ankle. Solid osseous fusion between the residual calcaneus and the tibial plafond and. Shallow soft tissue ulcer at the plantar aspect of the heel with immediately subjacent 1.9 x 1.3 x 1.5 cm loculated fluid collection concerning for abscess. Negative for soft tissue emphysema. While the described soft tissue inflammatory process extends directly to the plantar aspect of the residual calcaneus there is no suggestion of new osteolysis , or osteosclerosis, or periosteal reaction to confirm presence of osteomyelitis. Diffuse skeletal muscle atrophy. IMPRESSION: The constellation of findings is consistent with cellulitis with associated small abscess collection immediately deep to the superficial soft tissue ulcer at the heel. No compelling CT evidence for osteomyelitis. If there is persistent clinical concern for osteomyelitis consider MRI or in setting of contraindication to MRI 3 phase bone scan for further assessment.
[2017-06-16] MEDS: Linezolid 600 MG IVPREMIX(*) 600 MG/300 ML BAG IVPB SCH (19:39)
[2017-06-16] MEDS: Morphine INJ* 4 MG/ML 1 ML CARPUJECT IV PRN (20:11)
[2017-06-16] MEDS: Mometasone/Formoter 100/5 MDI INH SCH (20:29)
[2017-06-16] MEDS: Spironolactone TAB* 25 MG PO SCH (20:45)
[2017-06-16] MEDS: Nystatin TOP POWDER* 15 GM BTL TOPICAL SCH (21:20)
--- NOTE | 2017-06-16 21:41 | CONS ---
CONSULTATION REPORT: DATE OF CONSULT: 06/16/17 REASON FOR CONSULT: Left lower extremity wound, low-grade temperature. HISTORY: The patient is a 57-year-old woman, a patient of Dr. Tom Hess, who per report of the patient had a left lower extremity amputation, about the ankle in 2016, who saw Dr. Hess yesterday, 06/15/17, for a wound check and casting, who presents to the emergency department today complaining of a low- grade temperature at home, burning sensation of the left lower extremity stump, and some pain about the left calf. The patient had a cast placed yesterday and the plan was for the patient to follow up with Dr. Hess in clinic today. The patient did not come to clinic today, instead came to the emergency department. The patient is followed by a primary care physician as well as Dr. Damon, who has seen the patient for her left lower extremity wound but also for a vulvar abscess. The patient spoke first with Dr. Damon today, who instructed the patient to present to the emergency department. The patient states that in the last 24 hours she has been taking Tylenol as well as ibuprofen but that despite these, her temperature reached as high as 100.6 degrees at home. The patient presented chiefly with burning about the left stump but, when asked during my examination, the patient also described some left calf discomfort. No new injuries. The patient has been ambulating in a stump cast and walking boot, without an assist device such as a crutch or a walker. The patient also described some gynecological discomfort and the hospitalist service has examined her for a vulvar abscess. The patient denies other areas of discomfort. Low-grade temperature at home. The patient has some burning but no explicit tingling or numbness about the left lower extremity stump. REVIEW OF SYSTEMS: No other areas of joint pain. Low-grade temperature at home. No chest pain or shortness of breath. Positive calf tenderness to palpation and pain, left side. PHYSICAL EXAM: Temperature 98.0 degrees Fahrenheit at 1:10 p.m. on 06/16/17. Heart rate 68 at 6 p.m. Blood pressure 143/119 at 5:30 p.m. O2 saturation 94% on room air at 5 p.m. No acute distress. The patient appears comfortable. Later when I encountered the patient, she was uncomfortable, and described nausea and I did not see her vomit, but she described being close to vomiting. Appropriate mood and affect, appropriate dress and hygiene. I did not assess gait given the patient's left lower extremity discomfort. Well-coordinated bilateral upper and lower extremities. Left lower extremity exam reveals no popliteal lymphadenopathy, tender, or knot. No lymphangitic erythematous streaking up the leg. Cast, short-leg cast, over the left stump was in place, not loose. With some turning of that cast, there was some discomfort. Cast was in good condition, not falling off, not wet or breaking down. The short-leg cast was bivalved and removed. The patient had some skin breakdown at the distal, posterior end of the stump. There is some full- thickness skin loss with some fibrous tissue underneath. While there was some drainage on the dressing, serous, there is no active drainage from the wound site. No erythematous skin edges or subcutaneous tissue. No fluctuance palpated. While the patient had some tenderness to palpation, I would describe it as mild and not entirely consistent. This tenderness to palpation was not about the wound but was medial and lateral to the wound. Sensation intact about the stump. LABORATORY DATA: White blood cell count 11.2, hematocrit 28. Creatinine 1.34. C- reactive protein 50.37. Urinalysis from 06/16/17 demonstrates positive urine nitrites, trace urine leukocyte esterase, positive urine white blood cells and urine bacteria as well as urine squamous epithelial cells. ASSESSMENT: 1. Left lower extremity stump wound breakdown. 2. Status post left ankle level amputation by Dr. Tom Hess, circa 2015. 3. Diabetes mellitus. 4. Left calf pain and tenderness to palpation. 5. Vulvar infection, abscesses, see hospitalist notes. 6. Status post recent wound debridement, left lower extremity stump, 06/15/17, in the office by Dr. Tom Hess. PLAN: 1. I discussed the patient with Dr. Hess. He approved of my removing the cast and inspecting the wound. He called for b.i.d. dressing changes with a Betadine or povidone-soaked gauze as the first layer. I applied such a dressing , wrapped with an Kishor bandage. 2. As per above, twice daily dressing changes with a Betadine or povidone- soaked gauze followed by dry sterile dressing. That soaked gauze should be squeezed so that it is not soaking wet prior to application. 3. Elevate left lower extremity on a pillow for comfort. 4. Recommend a duplex ultrasound to rule out DVT given the left calf tenderness to palpation and the patient's slightly decreased mobility. 5. Defer to hospitalist service for workup of urinary tract infection by urinalysis and possible abscesses about the vulva. 6. Dr. Hess will follow up with the patient in the near future for a wound check. [id number]/[facility] #: [id number] ABNER
[2017-06-16] MEDS: Heparin VIAL(*) 5000 UNITS/ML VIAL (FIVE THOUSAND) SUBCUT SCH (21:42)
[2017-06-16] MEDS: Gabapentin CAP(*) 300 MG PO SCH (21:45)
[2017-06-16] MEDS: Pramipexole TAB* 0.5 MG PO SCH (21:45)
[2017-06-16] MEDS: Ticagrelor* 90 MG TAB PO SCH (21:45)
[2017-06-16] MEDS: Carvedilol TAB* 3.125 MG PO SCH (21:46)
[2017-06-16] MEDS: Docusate CAP* 100 MG PO SCH (21:46)
[2017-06-16] MEDS: Atorvastatin* 20 MG TAB PO SCH (21:46)
[2017-06-16] MEDS ORDERED: Clindamycin 600 MG IVPREMIX(* 600 MG/50 ML SDV IV SCH (22:00)
--- NOTE | 2017-06-16 22:23 | HP ---
CC: Dr. Valdes; Dr. Damon; Dr. Aguirre; Dr. Hess * HISTORY AND PHYSICAL: DATE OF ADMISSION: 06/16/17 PRIMARY CARE PROVIDER: Dr. Valdes. CONSULTING INFECTIOUS DISEASE SPECIALIST: Dr. Damon. CONSULTING SURGEON: Dr. Aguirre and Dr. Hess. ATTENDING PHYSICIAN WHILE IN THE HOSPITAL: Jolanta Mckinley DO * (report dictated by Vishal Jonas NP). CHIEF COMPLAINT: 1. Chills. 2. Wound to left stump with drainage. HISTORY OF PRESENT ILLNESS: Ms. Galarza is a 57-year-old female patient with multiple medical problems. She has a history of PVD, CHF, anemia, diabetes, CKD , COPD, CVA, restless leg syndrome, hypertension, hyperlipidemia, CAD, diabetic foot ulcers in the past, left subclavian stenosis and a history of an DE who presented to our ER today with complaints of chills, fever and vomiting up her p.o. antibiotics. The patient had noticed about a week ago that she has started developing a wound to her left stump surgical area. She had been following closely with Dr. Hess. She says that her prosthetic had been rubbing on her stump and was becoming quite painful. She noticed that she had an area of black tissue and she was evaluated by Dr. Hess in the outpatient setting, a cast was placed. She was supposed to follow up with him today. Unfortunately, last night she started developing low-grade fever, she did not know how high they were, but she just was noting she felt warm. She was flushed. She became nauseated and she noted that her sugars were becoming markedly elevated, which happens when she does have infections. She does state that she was recently on antibiotics from Dr. Damon. She does have an valvular abscess. In addition to this, she develops an abscess in her abdominal muscle. She states that the valvular abscess has been draining. The patient denied having any chest pain or shortness of breath. She does state that she has been feeling weaker. There was one episode of vomiting last night. She called Dr. Damon's office today because she said she could not keep her antibiotics down, so she was referred to the hospital. She does have a history of MRSA. She denied having any shortness of breath or any recent change of medications. She came in here today, was evaluated. There was concern for the possible infection of her left stump. In addition to this, there was concern because of the worsening infection of the valvular abscess and the possible superficial abscess in her abdominal wall. Because of this, the hospitalist service was asked to evaluate for admission. PAST MEDICAL HISTORY: Significant for: 1. Peripheral vascular disease. 2. CHF. 3. Anemia. 4. Diabetes. 5. CKD. 6. COPD. 7. CVA. 8. Restless leg syndrome. 9. Hypertension. 10. Hyperlipidemia. 11. CAD. 12. Diabetic foot ulcers. 13. Left subclavian stenosis. 14. History of DE. PAST SURGICAL HISTORY: 1. The patient has had an appendectomy. 2. Cholecystectomy. 3. Tonsillectomy. 4. . 5. Skin graft. 6. CABG. 7. Cervical laminectomy. 8. Lumbar laminectomy. 9. Left foot amputation. 10. Carotid endarterectomy. 11. Stents to bilateral lower extremities. HOME MEDICATIONS: Include: 1. Aspirin 81 mg daily. 2. Demadex 20 mg p.o. daily as needed. 3. Spiriva 1 capsule inhaled daily. 4. Brilinta 90 mg p.o. b.i.d. 5. Aldactone 12.5 mg Wednesday, Wednesday and Wednesday. 6. Mirapex 5 mg p.o. at bedtime. 7. Nitro 0.4 mg sublingual q.5 minutes p.r.n. chest pain x3. 8. Dulera 1 puff inhaled b.i.d. 9. Zaroxolyn 5 mg daily as needed. 10. Gabapentin 1800 mg p.o. at bedtime. 11. Epi 0.3 mg IM once as needed. 12. Glucagon 1 mg IM once as needed. 13. Enalapril 5 mg daily. 14. Lipitor 10 mg daily. 15. DuoNeb 1 neb inhaled t.i.d. as needed. 16. Coreg 4.6875 mg at bedtime. 17 Coreg 1.5625 mg p.o. in the morning. 18. Lactobacillus 1 capsule. 19. Repatha 140 mg subcu q.14 days. 20. Colace 100 mg p.o. b.i.d. 21. Heparin flush. 22. Clindamycin, she is on 600 mg t.i.d. ALLERGIES TO MEDICATIONS: Include CEPHALOSPORIN, PENICILLIN, SULFA, BEE VENOM, BENADRYL, MEROPENEM, VANCO, CODEINE, and BEE STING. FAMILY HISTORY: Unknown as she is adopted. SOCIAL HISTORY: She is still currently smoking about 3 cigarettes a day. She has been smoking since the age of 13. She does not drink alcohol. Surrogate decision maker is her son. REVIEW OF SYSTEMS: There was fever at home but none documented here. She denied having any significant weight change. She denied having any double vision. There was no ear discharge. She denied having any rhinorrhea. There was no sore throat. No thyroid enlargement. Denied having any chest pain. There was no orthopnea. No nocturnal dyspnea. There was no abdominal pain. There was one episode of nausea and vomiting. No dysuria. No frequency. There was no seizure. No loss of consciousness, no pruritus and no skin ulcerations. Review of 14 systems completed, all others negative. PHYSICAL EXAMINATION GENERAL: At this time, Ms. Galarza is a 57-year-old female patient. She has multiple medical problems. She is chronically ill-appearing. She is sitting in the ER stretcher. VITAL SIGNS: Blood pressure 173/83, pulse of 78, respirations 18, O2 sat 95%, temperature 98.0. HEENT: Head is atraumatic and normocephalic. Eyes: EOMs are intact. Sclerae anicteric and not pale. Throat: Oral mucosa appears to be dry. No oropharyngeal erythema. NECK: Supple. LUNGS: Clear to auscultation bilaterally. No wheezes, rales, or rhonchi. HEART: Sounds S1 and S2. Regular rate and rhythm. No murmurs, rubs, or gallops. ABDOMEN: Soft, it was flat. Bowel sounds were present. EXTREMITIES: Pulses were diminished on the lower extremity on the right side and unable to palpate the ones on the left as she uses a cast. She is moving all 4 extremities with 5/5 strength. NEUROLOGIC: The patient is awake, alert, oriented x3. No gross focal deficits. SKIN: Intact. She does have a fungal type rash in the folds of her abdomen. She does have what appears to be a fluid collection and is draining purulent drainage to the right labia. In addition to this, she also has a what appears to be abscess to the left abdominal wall. LABORATORY DATA/DIAGNOSTIC STUDIES: Labs today revealed a WBC of 11.2, RBC of 3.11, hemoglobin 9.2, hematocrit 28, and platelet count of 207. INR was 0.88. PTT was 28. Sodium was 124, potassium of 5, chloride was 91, bicarbonate 26, BUN 30, creatinine 1.31, glucose 685. Lactic was 2.1 calcium 9, total bilirubin 0.4. AST 11, ALT 6, alk phos 184, CRP of 50. Albumin of 2.8. Urine showed 2+ protein, 2+ blood, positive nitrite, 2+ wbc's, 2+ rbc's, 1+ bacteria, 3+ urine glucose. She had an ankle x-ray obtained today, which showed osteopenia without definite abnormal erosion of fracture or fusion of the tibia to the remnant of the calcaneus. Old medical records were reviewed. ASSESSMENT AND PLAN: Ms. Galarza is a 57-year-old female patient coming into the ER today with complaints of low-grade fever. On evaluation here today, there was concern for possible stump wound infection although I am unable to evaluate because she does have a cast. She will be admitted under inpatient status for: 1. Stump wound. At this point, she could be infected here. The source could be her labial abscess or possibly her stomach abscess. The plan is to go ahead and switch her over to linezolid. I did consult with Dr. Damon and Dr. Hess. The labial abscess is draining. We will continue this to drain. We will go ahead and put on antibiotics and we will get blood cultures. I will hydrate her and we will continue to follow closely. 2. Diabetes is not well controlled. At this point, I will go ahead and put her on lispro sliding scale every 4 hours. I addition to this, I am also going to give her IV push regular insulin 7 units. We will follow closely and hydrate. 3. Peripheral vascular disease, continue her meds as prescribed. She is on aspirin, Brilinta and a statin therapy. We will continue. 4. Congestive heart failure, does not appear to be in failure. We will diuresis as needed. 5. Anemia. H and H is stable. We will follow. 6. Chronic kidney disease, creatinine is at baseline. We will continue to follow this. 7. History of chronic obstructive pulmonary disease. She does not appear to be in exacerbation. We will continue her meds as prescribed and we will order p.r.n. albuterol. 8. History of cerebrovascular accident, continue with secondary prevention. 9. Restless leg syndrome, I will continue her Mirapex. 10. Hypertension. Continue meds as prescribed. 11. Hyperlipidemia. Continue her Repatha and her statin therapy. 12. Coronary artery disease, continue beta-brian, Brilinta, aspirin and statin therapy. 13. History of labial abscess. Again, it is draining, we will monitor and continue with linezolid. 14. Right stump wound. Again Dr. Hess has been consulted. I also consulted his partner Dr. Aguirre to contact Dr. Hess and Dr. Damon will be following for antibiotics. We will continue linezolid. 15. History of left subclavian stenosis. Continue with her current medical regimen. 16. DVT prophylaxis. She will be placed on heparin subcu. She is high risk. 17. Fluids, electrolytes and nutrition. Consistent carb diet. 18. Code status, full code. TIME SPENT: Time spent on the admission was approximately 60 minutes, greater than half the time was spent [id number] with the patient obtaining my history and physical; the other half time was spent going over the plan of care with the patient and implementing plan of care. I did discuss the plan of care with my attending, Dr. Mckinley; she is in agreement. VISHAL JONAS NP [id number]/[facility] #: [id number]
[2017-06-17] MEDS: Insulin LISPRO* 1 UNITS UNIT SUBCUT SCH ×6 (01:48→21:24)
[2017-06-17] MEDS: Ondansetron INJ* 2 MG/ML VIAL IV PRN ×2 (03:56→21:24)
[2017-06-17] MEDS: Morphine INJ* 4 MG/ML 1 ML CARPUJECT IV PRN ×4 (03:56→19:35)
[2017-06-17 05:15] LABS: Hematocrit 26 % (35-47); Hemoglobin 8.6 g/dl (12.0-16.0); Mean Corpuscular HGB Conc 33 g/dl (31-36); Mean Corpuscular Hemoglobin 30 pg (27-31); Mean Corpuscular Volume 90 fL (80-97); Mean Platelet Volume 10 um3 (7.4-10.4); Red Cell Distribution Width 18 % (10.5-15); White Blood Count 9.6 10^3/ul (3.5-10.8)
[2017-06-17] MEDS: Heparin VIAL(*) 5000 UNITS/ML VIAL (FIVE THOUSAND) SUBCUT SCH ×3 (05:34→22:15)
[2017-06-17] MEDS: Linezolid 600 MG IVPREMIX(*) 600 MG/300 ML BAG IVPB SCH ×2 (05:35→17:38)
[2017-06-17] MEDS ORDERED: Spiriva Inhaler DEVICE* 1 EACH DEVICE INH ONE (09:00)
[2017-06-17] MEDS ORDERED: Influenza VAC *QUAD* 2017-18* 0.5 ML SYRINGE IM ONE (09:00)
[2017-06-17] MEDS: Metoclopramide IV* 5 MG/ML 2 ML VIAL IV PRN (09:09)
[2017-06-17] MEDS: Mometasone/Formoter 100/5 MDI INH SCH ×2 (09:16→19:51)
[2017-06-17] MEDS: Tiotropium CAP.INH* CAP.INH/18 MCG (USE ORDER SET !) INH SCH (09:17)
[2017-06-17] MEDS: Aspirin EC Low Dose* 81 MG TAB.EC PO SCH (11:47)
[2017-06-17] MEDS: Carvedilol TAB* 3.125 MG PO SCH ×2 (11:47→22:37)
[2017-06-17] MEDS: Docusate CAP* 100 MG PO SCH ×2 (11:48→23:06)
[2017-06-17] MEDS: Lactobacillus Acidophilu (GG)* 1 CAP CAP PO SCH (11:49)
[2017-06-17] MEDS: Nystatin TOP POWDER* 15 GM BTL TOPICAL SCH ×3 (11:49→21:29)
[2017-06-17] MEDS: Ticagrelor* 90 MG TAB PO SCH ×2 (11:50→23:07)
[2017-06-17] MEDS: Enalapril TAB* 5 MG PO SCH (12:36)
--- NOTE | 2017-06-17 15:16 | PN ---
Progress Note - Progress Note Date of Service: 06/17/17 SOAP: Subjective: patient resting comfortably with minimal complaints of LLE pain Objective: Vital Signs Temp Pulse Resp BP Pulse Ox 97.7 F 66 14 148/72 97 06/17/17 11:13 06/17/17 11:13 06/17/17 11:13 06/17/17 11:13 06/17/17 11:13 Laboratory Last Values WBC 9.6 10^3/ul (3.5-10.8) 06/17/17 04:45 RBC 2.90 10^6/ul (4.0-5.4) L 06/17/17 04:45 Hgb 8.6 g/dl (12.0-16.0) L 06/17/17 04:45 Hct 26 % (35-47) L 06/17/17 04:45 MCV 90 fL (80-97) 06/17/17 04:45 MCH 30 pg (27-31) 06/17/17 04:45 MCHC 33 g/dl (31-36) 06/17/17 04:45 RDW 18 % (10.5-15) H 06/17/17 04:45 Plt Count 208 10^3/ul (150-450) 06/17/17 04:45 MPV 10 um3 (7.4-10.4) 06/17/17 04:45 Neut % (Auto) 78.7 % (38-83) 06/17/17 04:45 Lymph % (Auto) 14.2 % (25-47) L 06/17/17 04:45 Pratt % (Auto) 4.6 % (1-9) 06/17/17 04:45 Eos % (Auto) 2.0 % (0-6) 06/17/17 04:45 Baso % (Auto) 0.5 % (0-2) 06/17/17 04:45 Absolute Neuts (auto) 7.5 10^3/ul (1.5-7.7) 06/17/17 04:45 Absolute Lymphs (auto) 1.4 10^3/ul (1.0-4.8) 06/17/17 04:45 Absolute Monos (auto) 0.4 10^3/ul (0-0.8) 06/17/17 04:45 Absolute Eos (auto) 0.2 10^3/ul (0-0.6) 06/17/17 04:45 Absolute Basos (auto) 0 10^3/ul (0-0.2) 06/17/17 04:45 Absolute Nucleated RBC 0 10^3/ul 06/17/17 04:45 Nucleated RBC % 0 06/17/17 04:45 INR (Anticoag Therapy) 0.89 (0.89-1.11) 06/17/17 04:45 APTT 28.0 seconds (26.0-36.3) 06/16/17 14:05 Sodium 124 mmol/L (133-145) L 06/16/17 14:05 Potassium 5.0 mmol/L (3.5-5.0) 06/16/17 14:05 Chloride 91 mmol/L (101-111) L 06/16/17 14:05 Carbon Dioxide 26 mmol/L (22-32) 06/16/17 14:05 Anion Gap 7 mmol/L (2-11) 06/16/17 14:05 BUN 30 mg/dL (6-24) H 06/16/17 14:05 Creatinine 1.34 mg/dL (0.51-0.95) H 06/16/17 14:05 Est GFR ( Amer) 52.6 (>60) 06/16/17 14:05 Est GFR (Non-Af Amer) 40.9 (>60) 06/16/17 14:05 BUN/Creatinine Ratio 22.4 (8-20) H 06/16/17 14:05 Glucose 685 mg/dL (70-100) H* 06/16/17 14:05 POC Glucose (mg/dL) 188 mg/dL (70-100) H 06/17/17 11:54 Lactic Acid 2.1 mmol/L (0.5-2.0) H* 06/16/17 14:05 Calcium 9.0 mg/dL (8.6-10.3) 06/16/17 14:05 Total Bilirubin 0.40 mg/dL (0.2-1.0) 06/16/17 14:05 AST 10 U/L (13-39) L 06/16/17 14:05 ALT 6 U/L (7-52) L 06/16/17 14:05 Alkaline Phosphatase 184 U/L (34-104) H 06/16/17 14:05 C-Reactive Protein 50.37 mg/L (< 5.00) H 06/16/17 14:05 B-Natriuretic Peptide 866 pg/mL (-100) H 06/16/17 14:05 Total Protein 6.5 g/dL (6.4-8.9) 06/16/17 14:05 Albumin 2.8 g/dL (3.2-5.2) L 06/16/17 14:05 Globulin 3.7 g/dL (2-4) 06/16/17 14:05 Albumin/Globulin Ratio 0.8 (1-3) L 06/16/17 14:05 Urine Color Yellow 06/16/17 14:21 Urine Appearance Clear 06/16/17 14:21 Urine pH 6.0 (5-9) 06/16/17 14:21 Ur Specific Lima 1.024 (1.010-1.030) 06/16/17 14:21 Urine Protein 2+(100 mg/dl) (Negative) H 06/16/17 14:21 Urine Ketones Negative (Negative) 06/16/17 14:21 Urine Blood 2+ (Negative) H 06/16/17 14:21 Urine Nitrate Positive (Negative) H 06/16/17 14:21 Urine Bilirubin Negative (Negative) 06/16/17 14:21 Urine Urobilinogen Negative (Negative) 06/16/17 14:21 Ur Leukocyte Esterase Trace (Negative) H 06/16/17 14:21 Urine WBC (Auto) 2+(11-20/hpf) (Absent) H 06/16/17 14:21 Urine RBC (Auto) 2+(6-10/hpf) (Absent) H 06/16/17 14:21 Ur Squamous Epith Cells Present (Absent) H 06/16/17 14:21 Urine Bacteria 1+ (Absent) H 06/16/17 14:21 Urine Glucose 3+(>=500 mg/dl) (Negative) H 06/16/17 14:21 PE: NVI, LLE bandage was removed. There is no active drainage from distal stump , no erythema, sensation intact Assessment: s/p LLE amputation(2015) with stump skin breakdown Plan: 1) continue IV Abx per ID 2) Hospitalist co-managing 3) BID dressing changes 4) will continue to follow
--- NOTE | 2017-06-17 17:04 | PN ---
Subjective Date of Service: 06/17/17 Interval History: pt feels much better, although still low appetite. Was started on antibiotics by Dr. Saucedo one week ago for vulvar cellulitis Objective Active Medications: Acetaminophen (Tylenol Tab*) 650 mg PO Q4H PRN PRN Reason: FEVER/PAIN Albuterol (Ventolin 2.5 Mg/3 Ml Neb.Roxy*) 2.5 mg INH Q2H PRN PRN Reason: SOB/WHEEZING Aspirin (Aspirin Ec Low Dose*) 81 mg PO DAILY [facility] Last Admin: 06/17/17 11:47 Dose: Not Given Atorvastatin Calcium (Lipitor*) 20 mg PO BEDTIME [facility] Last Admin: 06/16/17 21:46 Dose: Not Given Carvedilol (Coreg Tab*) 4.6875 mg PO BEDTIME [facility] Last Admin: 06/16/17 21:46 Dose: Not Given Carvedilol (Coreg Tab*) 1.5625 mg PO QAM [facility] Last Admin: 06/17/17 11:47 Dose: Not Given Dextrose (D50w Syringe 50 Ml*) 12.5 gm IV PUSH .FOR FS < 60 - SS PRN PRN Reason: FS < 60 Docusate Sodium (Colace Cap*) 100 mg PO BID [facility] Last Admin: 06/17/17 11:48 Dose: Not Given Enalapril Maleate (Vasotec Tab*) 5 mg PO DAILY@1200 [facility] Last Admin: 06/17/17 12:36 Dose: Not Given Gabapentin (Neurontin Cap(*)) 1,800 mg PO BEDTIME [facility] Last Admin: 06/16/17 21:45 Dose: Not Given Heparin Sodium (Porcine) (Heparin Vial(*)) 5,000 units SUBCUT Q8HR [facility] Last Admin: 06/17/17 15:31 Dose: 5,000 units Heparin Sodium (Porcine) (Heparin Flush Port (Ivad)) 5 ml FLUSH DAILY [facility] PRN Reason: Protocol Last Admin: 06/17/17 08:08 Dose: Not Given Linezolid (Zyvox 600 Mg Ivpremix(*)) 600 mg in 300 mls @ 300 mls/hr IVPB Q12H [facility] Last Admin: 06/17/17 05:35 Dose: 300 mls/hr Insulin Glargine (Lantus(*)) 30 units SUBCUT Q24H [facility] Insulin Human Lispro (Humalog*) 0 units SUBCUT Q4H [place] PRN Reason: Protocol Last Admin: 06/17/17 12:34 Dose: 3 units Lactobacillus Rhamnosus (Culturelle*) 1 cap PO DAILY [facility] Last Admin: 06/17/17 11:49 Dose: Not Given Metoclopramide HCl (Reglan Iv*) 5 mg IV Q6H PRN PRN Reason: NAUSEA/VOMITING Last Admin: 06/17/17 09:09 Dose: 5 mg Mometasone Furoate/Formoterol Fumar (Dulera 100/5 Mdi*) 1 puff INH BID [facility] Last Admin: 06/17/17 09:16 Dose: Not Given Morphine Sulfate (Morphine Inj (Syringe)*) 4 mg IV Q4H PRN PRN Reason: PAIN Last Admin: 06/17/17 15:25 Dose: 4 mg Evolocumab [Repatha (Sureclick] 140 Mg) 140 mg SC Q14D [facility] Last Admin: 06/16/17 20:44 Dose: Not Given Nystatin (Nystatin Top Powder*) 1 applic TOPICAL TID [facility] Last Admin: 06/17/17 15:45 Dose: 1 applic Ondansetron HCl (Zofran Inj*) 4 mg IV Q6H PRN PRN Reason: NAUSEA Last Admin: 06/17/17 03:56 Dose: 4 mg Pramipexole Dihydrochloride (Mirapex Tab*) 0.5 mg PO BEDTIME [facility] Last Admin: 06/16/17 21:45 Dose: Not Given Spironolactone (Aldactone Tab*) 12.5 mg PO MOWEFR [facility] Last Admin: 06/16/17 20:45 Dose: Not Given Ticagrelor (Brilinta*) 90 mg PO BID [facility] Last Admin: 06/17/17 11:50 Dose: Not Given Tiotropium [place] (Spiriva Cap.Inh*) 1 cap INH DAILY [facility] Last Admin: 06/17/17 09:17 Dose: Not Given Vital Signs 06/16/17 06/16/17 06/16/17 17:00 17:30 17:49 Temperature Pulse Rate 72 Respiratory 18 22 18 Rate Blood Pressure 172/81 143/119 (mmHg) O2 Sat by Pulse 94 Oximetry 06/16/17 06/16/17 06/16/17 18:00 19:30 20:11 Temperature 98.0 F Pulse Rate 67 Respiratory 17 18 18 Rate Blood Pressure 119/60 (mmHg) O2 Sat by Pulse 100 Oximetry 06/16/17 06/16/17 06/16/17 20:36 20:37 21:11 Temperature Pulse Rate 60 Respiratory 20 16 Rate Blood Pressure (mmHg) O2 Sat by Pulse 98 98 Oximetry 06/16/17 06/17/17 06/17/17 23:15 03:38 03:56 Temperature 97.3 F 97.4 F Pulse Rate 72 74 Respiratory 15 15 16 Rate Blood Pressure 146/75 148/79 (mmHg) O2 Sat by Pulse 100 100 Oximetry 06/17/17 06/17/17 06/17/17 04:56 07:56 08:00 Temperature 97.3 F Pulse Rate 69 Respiratory 18 17 18 Rate Blood Pressure 159/77 (mmHg) O2 Sat by Pulse 100 Oximetry 06/17/17 06/17/17 06/17/17 08:25 09:25 11:13 Temperature 97.7 F Pulse Rate 66 Respiratory 18 18 14 Rate Blood Pressure 148/72 (mmHg) O2 Sat by Pulse 97 Oximetry 06/17/17 15:25 Temperature Pulse Rate Respiratory 18 Rate Blood Pressure (mmHg) O2 Sat by Pulse Oximetry Oxygen Devices in Use Now: None Appearance: 57 yo F in nAD, AAOx3 Eyes: No Scleral Icterus, PERRLA Ears/Nose/Mouth/Throat: NL Teeth, Lips, Gums, Mucous Membranes Moist Neck: NL Appearance and Movements; NL JVP, Trachea Midline Respiratory: Symmetrical Chest Expansion and Respiratory Effort, Clear to Auscultation Cardiovascular: NL Sounds; No Murmurs; No JVD, RRR Abdominal: NL Sounds; No Tenderness; No Distention, No Hepatosplenomegaly Lymphatic: No Cervical Adenopathy Extremities: No Edema, No Clubbing, Cyanosis Skin: No Nodules or Sclerosis, - - left foot s/o left midfoot amputation with stump ulcer on heel-stage 3 at 3 cm in diam , R labia majora abscess appears improved, but severe jorge intertrigo noted in groin and abd folds Neurological: Alert and Oriented x 3, NL Muscle Strength and Tone Result Diagrams: 06/17/17 04:45 06/16/17 14:05 Additional Lab and Data: Lab Results 06/16/17 06/16/1706/16/17 Range/Units 14:05 14:05 14:05 WBC (3.5-10.8) 10^3/ul RBC (4.0-5.4) 10^6/ul Hgb (12.0-16.0) g/dl Hct (35-47) % MCV (80-97) fL MCH (27-31) pg MCHC (31-36) g/dl RDW (10.5-15) % Plt Count (150-450) 10^3/ul MPV (7.4-10.4) um3 Neut % (Auto) (38-83) % Lymph % (Auto) (25-47) % [place] % (Auto) (1-9) % Eos % (Auto) (0-6) % Baso % (Auto) (0-2) % Absolute Neuts (auto) (1.5-7.7) 10^3/ul Absolute Lymphs (auto) (1.0-4.8) 10^3/ul Absolute Monos (auto) (0-0.8) 10^3/ul Absolute Eos (auto) (0-0.6) 10^3/ul Absolute Basos (auto) (0-0.2) 10^3/ul Absolute Nucleated RBC 10^3/ul Nucleated RBC % INR (Anticoag Therapy) 0.88 L (0.89-1.11) APTT 28.0 (26.0-36.3) seconds Sodium 124 L (133-145) mmol/L Potassium 5.0 (3.5-5.0) mmol/L Chloride 91 L (101-111) mmol/L Carbon Dioxide 26 (22-32) mmol/L Anion Gap 7 (2-11) mmol/L BUN 30 H (6-24) mg/dL Creatinine 1.34 H (0.51-0.95) mg/dL Est GFR ( Amer) 52.6 (>60) Est GFR (Non-Af Amer) 40.9 (>60) BUN/Creatinine Ratio 22.4 H (8-20) Glucose 685 H* (70-100) mg/dL Lactic Acid (0.5-2.0) mmol/L Calcium 9.0 (8.6-10.3) mg/dL Total Bilirubin 0.40 (0.2-1.0) mg/dL AST 10 L (13-39) U/L ALT 6 L (7-52) U/L Alkaline Phosphatase 184 H (34-104) U/L C-Reactive Protein 50.37 H (< 5.00) mg/L B-Natriuretic Peptide 866 H ( - 100) pg/mL Total Protein 6.5 (6.4-8.9) g/dL Albumin 2.8 L (3.2-5.2) g/dL Globulin 3.7 (2-4) g/dL Albumin/Globulin Ratio 0.8 L (1-3) Urine Color Urine Appearance Urine pH (5-9) Ur Specific [place] (1.010-1.030) Urine Protein (Negative) Urine Ketones (Negative) Urine Blood (Negative) Urine Nitrate (Negative) Urine Bilirubin (Negative) Urine Urobilinogen (Negative) Ur Leukocyte Esterase (Negative) Urine WBC (Auto) (Absent) Urine RBC (Auto) (Absent) Ur Squamous Epith Cells (Absent) Urine Bacteria (Absent) Urine Glucose (Negative) 06/16/17 06/16/17 06/16/17 Range/Units 14:05 14:05 14:21 WBC 11.2 H (3.5-10.8) 10^3/ul RBC 3.11 L (4.0-5.4) 10^6/ul Hgb 9.2 L (12.0-16.0) g/dl Hct 28 L (35-47) % MCV 91 (80-97) fL MCH 30 (27-31) pg MCHC 32 (31-36) g/dl RDW 18 H (10.5-15) % Plt Count 207 (150-450) 10^3/ul MPV 10 (7.4-10.4) um3 Neut % (Auto) 83.5 H (38-83) % Lymph % (Auto) 10.2 L (25-47) % [place] % (Auto) 3.8 (1-9) % Eos % (Auto) 1.6 (0-6) % Baso % (Auto) 0.9 (0-2) % Absolute Neuts (auto) 9.4 H (1.5-7.7) 10^3/ul Absolute Lymphs (auto) 1.1 (1.0-4.8) 10^3/ul Absolute Monos (auto) 0.4 (0-0.8) 10^3/ul Absolute Eos (auto) 0.2 (0-0.6) 10^3/ul Absolute Basos (auto) 0.1 (0-0.2) 10^3/ul Absolute Nucleated RBC 0.01 10^3/ul Nucleated RBC % 0 INR (Anticoag Therapy) (0.89-1.11) APTT (26.0-36.3) seconds Sodium (133-145) mmol/L Potassium (3.5-5.0) mmol/L Chloride (101-111) mmol/L Carbon Dioxide (22-32) mmol/L Anion Gap (2-11) mmol/L BUN (6-24) mg/dL Creatinine (0.51-0.95) mg/dL Est GFR ( Amer) (>60) Est GFR (Non-Af Amer) (>60) BUN/Creatinine Ratio (8-20) Glucose (70-100) mg/dL Lactic Acid 2.1 H* (0.5-2.0) mmol/L Calcium (8.6-10.3) mg/dL Total Bilirubin (0.2-1.0) mg/dL AST (13-39) U/L ALT (7-52) U/L Alkaline Phosphatase (34-104) U/L C-Reactive Protein (< 5.00) mg/L B-Natriuretic Peptide ( - 100) pg/mL Total Protein (6.4-8.9) g/dL Albumin (3.2-5.2) g/dL Globulin (2-4) g/dL Albumin/Globulin Ratio (1-3) Urine Color Yellow Urine Appearance Clear Urine pH 6.0 (5-9) Ur Specific [place] 1.024 (1.010-1.030) Urine Protein 2+(100 mg/dl) H (Negative) Urine Ketones Negative (Negative) Urine Blood 2+ H (Negative) Urine Nitrate Positive H (Negative) Urine Bilirubin Negative (Negative) Urine Urobilinogen Negative (Negative) Ur Leukocyte Esterase Trace H (Negative) Urine WBC (Auto) 2+(11-20/hpf) H (Absent) Urine RBC (Auto) 2+(6-10/hpf) H (Absent) Ur Squamous Epith Cells Present H (Absent) Urine Bacteria 1+ H (Absent) Urine Glucose 3+(>=500 mg/dl) H (Negative) Assess/Plan/Problems-Billing Assessment: Mrs. Galarza is a 57yo F with PMH of insulin dependent diabetes, CAD s/p CABG, PVD, CVA, chronic anemia, CKD stage 3, HTN, HLD, left subclavian stenosis s/p stent, left foot osteomyelitis s/p forefoot amputation, who presented to ED with chills found to have left heel abscess - Patient Problems (1) Abscess Comment: appreciate ID and ortho assistance cont IV linezolid cont Betadine wound dressings (2) [place] intertrigo Comment: severe, started on daily diflucan (3) Uncontrolled type II diabetes mellitus Comment: under better control now, although at admission her BG>600 cont Lantus and ISS (4) Hyponatremia Comment: suspect pseudohyponatremia due to high sugars, will monitor (5) CKD (chronic kidney disease) stage 3, GFR 30-59 ml/min Comment: - Creatinine near baseline due to DM2 (6) DVT prophylaxis Comment: - SQ heparin. (7) Peripheral vascular disease Comment: Pt had stenting to the L LE Cont ASA and brilinta (8) HTN (hypertension) Comment: controlled, cont ACEI and coreg Status and Disposition: inpatient
[2017-06-17] MEDS: Insulin GLARGINE(*) 1 UNITS UNIT SUBCUT SCH (17:43)
[2017-06-17] MEDS: Atorvastatin* 20 MG TAB PO SCH (23:06)
[2017-06-17] MEDS: Fluconazole 100 MG TAB* TAB PO SCH (23:06)
[2017-06-17] MEDS: Gabapentin CAP(*) 300 MG PO SCH (23:07)
[2017-06-17] MEDS: Pramipexole TAB* 0.5 MG PO SCH (23:07)
[2017-06-18] MEDS: Insulin LISPRO* 1 UNITS UNIT SUBCUT SCH ×6 (01:00→20:52)
[2017-06-18] MEDS: Metoclopramide IV* 5 MG/ML 2 ML VIAL IV PRN (04:40)
[2017-06-18] MEDS: Heparin VIAL(*) 5000 UNITS/ML VIAL (FIVE THOUSAND) SUBCUT SCH ×3 (05:36→22:23)
[2017-06-18] MEDS: Linezolid 600 MG IVPREMIX(*) 600 MG/300 ML BAG IVPB SCH ×2 (05:36→17:38)
[2017-06-18 05:59] LABS: Hematocrit 30 % (35-47); Hemoglobin 9.8 g/dl (12.0-16.0); Mean Corpuscular HGB Conc 32 g/dl (31-36); Mean Corpuscular Hemoglobin 29 pg (27-31); Mean Corpuscular Volume 91 fL (80-97); Mean Platelet Volume 10 um3 (7.4-10.4); Red Blood Count 3.33 10^6/ul (4.0-5.4); Red Cell Distribution Width 18 % (10.5-15); White Blood Count 9.7 10^3/ul (3.5-10.8)
[2017-06-18 06:24] LABS: BUN/Creatinine Ratio 20.2 (8-20); Calcium 8.8 mg/dL (8.6-10.3); EGFR Non-African American 42.8 (>60); Potassium 4.3 mmol/L (3.5-5.0)
[2017-06-18] MEDS: Morphine INJ* 4 MG/ML 1 ML CARPUJECT IV PRN ×3 (08:17→20:25)
[2017-06-18] MEDS: Ondansetron INJ* 2 MG/ML VIAL IV PRN ×3 (08:24→19:38)
[2017-06-18] MEDS: Mometasone/Formoter 100/5 MDI INH SCH ×2 (08:29→19:42)
[2017-06-18] MEDS: Tiotropium CAP.INH* CAP.INH/18 MCG (USE ORDER SET !) INH SCH (08:29)
[2017-06-18] MEDS ORDERED: Influenza VAC *QUAD* 2017-18* 0.5 ML SYRINGE IM ONE (09:00)
[2017-06-18] MEDS ORDERED: Ciprofloxacin TAB* 500 MG PO SCH (09:00)
--- NOTE | 2017-06-18 09:05 | CONS ---
CONSULTATION REPORT: DATE OF CONSULT: 05/18/17 HISTORY OF PRESENT ILLNESS: Michelle is seen today in room 408. She has been admitted 48 hours ago f or fevers, chills, malaise, and pain in the left foot and in the groin area. She is currently being treated with antibiotics for vulvar cellulitis and possible infection left heel. We debrided her left heel over the last couple of weeks in the office. She had some blistering and breakdown with central area that was opened initially, but had closed recently in the office. Today, Michelle complains mostly of left heel pain, not so much pain in the groin. She is being treate d with antibiotics per Infectious Disease. Her white count has slowly decreased now to 9.7 and she has been afebrile. Her examination does not reveal any drainage or significant swelling at the left heel. She has a well- healed Piro[place]ff incision and her CT scan had shown good bony fusion without cortical irregularity. She may have a small soft tissue collection directly plantar to the heel. S he is tender to palpation in this area. Michelle has possible small soft tissue collection at the plantar aspect of the left heel. She has mata d trouble with prosthetic wear as she is continuing to have blistering and shear changes at the heel pad. It may be that we would consider revision of her amputation, but the bone healing appears to be so complete that my tendency still would be toward a local debridement at the heel if her pain do es not significantly improve on antibiotics over the next 24 to 48 hours. [id number]/[facility] #: [id number]
[2017-06-18] MEDS: Aspirin EC Low Dose* 81 MG TAB.EC PO SCH (09:48)
[2017-06-18] MEDS: Fluconazole 100 MG TAB* TAB PO SCH (09:48)
[2017-06-18] MEDS: Docusate CAP* 100 MG PO SCH ×2 (09:48→19:41)
[2017-06-18] MEDS: Carvedilol TAB* 3.125 MG PO SCH ×2 (09:48→19:41)
[2017-06-18] MEDS: Ticagrelor* 90 MG TAB PO SCH ×2 (09:49→19:42)
[2017-06-18] MEDS: Lactobacillus Acidophilu (GG)* 1 CAP CAP PO SCH (09:49)
[2017-06-18] MEDS: Nystatin TOP POWDER* 15 GM BTL TOPICAL SCH ×3 (09:55→20:48)
[2017-06-18] MEDS ORDERED: Ciprofloxacin 400MG IVPREMIX(* 400 MG/200 ML BAG IVPB SCH (11:00)
[2017-06-18] MEDS: Metoclopramide IV* 5 MG/ML 2 ML VIAL IV SCH ×2 (11:22→16:04)
[2017-06-18] MEDS: Enalapril TAB* 5 MG PO SCH (13:23)
[2017-06-18] MEDS: NS 0.9% 1000 ML* 1,000 ML IV SCH (13:25)
[2017-06-18] MEDS: Fluconazole 100 MG IVPREMIX(*) 100 MG/50 ML BAG IVPB SCH (13:26)
--- NOTE | 2017-06-18 17:24 | PN ---
Subjective Date of Service: 06/18/17 Interval History: Pt still feels nauseated. no abd pain, but no appetite either, stated it's mostly due to severe pain in left stump Objective Active Medications: Acetaminophen (Tylenol Tab*) 650 mg PO Q4H PRN PRN Reason: FEVER/PAIN Albuterol (Ventolin 2.5 Mg/3 Ml Neb.Roxy*) 2.5 mg INH Q2H PRN PRN Reason: SOB/WHEEZING Aspirin (Aspirin Ec Low Dose*) 81 mg PO DAILY [facility] Last Admin: 06/18/17 09:48 Dose: Not Given Atorvastatin Calcium (Lipitor*) 20 mg PO BEDTIME [facility] Last Admin: 06/17/17 23:06 Dose: Not Given Carvedilol (Coreg Tab*) 4.6875 mg PO BEDTIME [facility] Last Admin: 06/17/17 22:37 Dose: Not Given Carvedilol (Coreg Tab*) 1.5625 mg PO QAM [facility] Last Admin: 06/18/17 09:48 Dose: Not Given Dextrose (D50w Syringe 50 Ml*) 12.5 gm IV PUSH .FOR FS < 60 - SS PRN PRN Reason: FS < 60 Docusate Sodium (Colace Cap*) 100 mg PO BID [facility] Last Admin: 06/18/17 09:48 Dose: Not Given Enalapril Maleate (Vasotec Tab*) 5 mg PO DAILY@1200 [facility] Last Admin: 06/18/17 13:23 Dose: Not Given Gabapentin (Neurontin Cap(*)) 1,800 mg PO BEDTIME [facility] Last Admin: 06/17/17 23:07 Dose: Not Given Heparin Sodium (Porcine) (Heparin Vial(*)) 5,000 units SUBCUT Q8HR [facility] Last Admin: 06/18/17 13:22 Dose: 5,000 units Heparin Sodium (Porcine) (Heparin Flush Port (Ivad)) 5 ml FLUSH DAILY [facility] PRN Reason: Protocol Last Admin: 06/18/17 08:26 Dose: 5 ml Linezolid (Zyvox 600 Mg Ivpremix(*)) 600 mg in 300 mls @ 300 mls/hr IVPB Q12H [facility] Last Admin: 06/18/17 05:36 Dose: 300 mls/hr Ciprofloxacin/Dextrose (Cipro 400 Mg Ivpremix(*)) 400 mg in 200 mls @ 200 mls/ hr IVPB Q24H [facility] Last Admin: 06/18/17 11:14 Dose: 200 mls/hr Fluconazole/Sodium Chloride (Diflucan 100 Mg Ivpremix(*)) 100 mg in 50 mls @ 100 mls/hr IVPB Q24H [facility] Last Admin: 06/18/17 13:26 Dose: 100 mls/hr Sodium Chloride (Ns 0.9% 1000 Ml*) 1,000 mls @ 75 mls/hr IV PER RATE [facility] Last Admin: 06/18/17 13:25 Dose: 75 mls/hr Insulin Glargine (Lantus(*)) 30 units SUBCUT Q24H [facility] Last Admin: 06/17/17 17:43 Dose: 30 units Insulin Human Lispro (Humalog*) 0 units SUBCUT Q4H [facility] PRN Reason: Protocol Last Admin: 06/18/17 16:43 Dose: Not Given Lactobacillus Rhamnosus (Culturelle*) 1 cap PO DAILY [facility] Last Admin: 06/18/17 09:49 Dose: Not Given Metoclopramide HCl (Reglan Iv*) 5 mg IV AC [facility] Last Admin: 06/18/17 16:04 Dose: 5 mg Mometasone Furoate/Formoterol Fumar (Dulera 100/5 Mdi*) 1 puff INH BID [facility] Last Admin: 06/18/17 08:29 Dose: Not Given Morphine Sulfate (Morphine Inj (Syringe)*) 4 mg IV Q4H PRN PRN Reason: PAIN Last Admin: 06/18/17 16:05 Dose: 4 mg Evolocumab [Repatha (Sureclick] 140 Mg) 140 mg SC Q14D [facility] Last Admin: 06/16/17 20:44 Dose: Not Given Nystatin (Nystatin Top Powder*) 1 applic TOPICAL TID [facility] Last Admin: 06/18/17 13:27 Dose: 1 applic Ondansetron HCl (Zofran Inj*) 4 mg IV Q6H PRN PRN Reason: NAUSEA Last Admin: 06/18/17 13:19 Dose: 4 mg Pramipexole Dihydrochloride (Mirapex Tab*) 0.5 mg PO BEDTIME [facility] Last Admin: 06/17/17 23:07 Dose: Not Given Spironolactone (Aldactone Tab*) 12.5 mg PO MOWEFR [facility] Last Admin: 06/16/17 20:45 Dose: Not Given Ticagrelor (Brilinta*) 90 mg PO BID [facility] Last Admin: 06/18/17 09:49 Dose: Not Given Tiotropium [place] (Spiriva Cap.Inh*) 1 cap INH DAILY [facility] Last Admin: 06/18/17 08:29 Dose: Not Given Vital Signs 06/17/17 06/17/17 06/17/17 19:31 19:35 20:00 Temperature 97.7 F Pulse Rate 77 Respiratory 16 18 20 Rate Blood Pressure 150/84 (mmHg) O2 Sat by Pulse 100 Oximetry 06/17/17 06/17/17 06/18/17 20:35 23:15 04:44 Temperature 97.7 F 98.0 F Pulse Rate 73 79 Respiratory 20 16 16 Rate Blood Pressure 149/75 151/82 (mmHg) O2 Sat by Pulse 98 100 Oximetry 06/18/17 06/18/17 06/18/17 07:53 08:00 08:17 Temperature 98.3 F Pulse Rate 84 Respiratory 16 16 18 Rate Blood Pressure 177/85 (mmHg) O2 Sat by Pulse 97 Oximetry 06/18/17 06/18/17 06/18/17 09:17 15:33 16:05 Temperature 98.2 F Pulse Rate 85 Respiratory 16 18 15 Rate Blood Pressure 160/80 (mmHg) O2 Sat by Pulse 98 Oximetry Oxygen Devices in Use Now: None Appearance: 57 yo F in NAD, AAOx3 Eyes: No Scleral Icterus, PERRLA Ears/Nose/Mouth/Throat: NL Teeth, Lips, Gums, Mucous Membranes Moist Neck: NL Appearance and Movements; NL JVP, Trachea Midline Respiratory: Symmetrical Chest Expansion and Respiratory Effort, Clear to Auscultation Cardiovascular: NL Sounds; No Murmurs; No JVD, RRR Abdominal: NL Sounds; No Tenderness; No Distention, No Hepatosplenomegaly Lymphatic: No Cervical Adenopathy Extremities: No Edema, No Clubbing, Cyanosis, - - left heel ulcer stage 3 at 3- 4 cm in diam , s/p left foot amputation. severe jorge intertrigo in abd folds Skin: No Rash or Ulcers, No Nodules or Sclerosis, - Neurological: Alert and Oriented x 3, NL Muscle Strength and Tone Result Diagrams: 06/18/17 05:40 06/18/17 05:40 Additional Lab and Data: Lab Results 06/16/17 06/16/17 06/16/17 Range/Units 14:05 14:05 14:05 WBC (3.5-10.8) 10^3/ul RBC (4.0-5.4) 10^6/ul Hgb (12.0-16.0) g/dl Hct (35-47) % MCV (80-97) fL MCH (27-31) pg MCHC (31-36) g/dl RDW (10.5-15) % Plt Count (150-450) 10^3/ul MPV (7.4-10.4) um3 Neut % (Auto) (38-83) % Lymph % (Auto) (25-47) % [place] % (Auto) (1-9) % Eos % (Auto) (0-6) % Baso % (Auto) (0-2) % Absolute Neuts (auto) (1.5-7.7) 10^3/ul Absolute Lymphs (auto) (1.0-4.8) 10^3/ul Absolute Monos (auto) (0-0.8) 10^3/ul Absolute Eos (auto) (0-0.6) 10^3/ul Absolute Basos (auto) (0-0.2) 10^3/ul Absolute Nucleated RBC 10^3/ul Nucleated RBC % INR (Anticoag Therapy) 0.88 L (0.89-1.11) APTT 28.0 (26.0-36.3) seconds Sodium 124 L (133-145) mmol/L Potassium 5.0 (3.5-5.0) mmol/L Chloride 91 L (101-111) mmol/L Carbon Dioxide 26 (22-32) mmol/L Anion Gap 7 (2-11) mmol/L BUN 30 H (6-24) mg/dL Creatinine 1.34 H (0.51-0.95) mg/dL Est GFR ( Amer) 52.6 (>60) Est GFR (Non-Af Amer) 40.9 (>60) BUN/Creatinine Ratio 22.4 H (8-20) Glucose 685 H* (70-100) mg/dL Lactic Acid (0.5-2.0) mmol/L Calcium 9.0 (8.6-10.3) mg/dL Total Bilirubin 0.40 (0.2-1.0) mg/dL AST 10 L (13-39) U/L ALT 6 L (7-52) U/L Alkaline Phosphatase 184 H (34-104) U/L C-Reactive Protein 50.37 H (< 5.00) mg/L B-Natriuretic Peptide 866 H ( - 100) pg/mL Total Protein 6.5 (6.4-8.9) g/dL Albumin 2.8 L (3.2-5.2) g/dL Globulin 3.7 (2-4) g/dL Albumin/Globulin Ratio 0.8 L (1-3) Urine Color Urine Appearance Urine pH (5-9) Ur Specific [place] (1.010-1.030) Urine Protein (Negative) Urine Ketones (Negative) Urine Blood (Negative) Urine Nitrate (Negative) Urine Bilirubin (Negative) Urine Urobilinogen (Negative) Ur Leukocyte Esterase (Negative) Urine WBC (Auto) (Absent) Urine RBC (Auto) (Absent) Ur Squamous Epith Cells (Absent) Urine Bacteria (Absent) Urine Glucose (Negative) 06/16/17 06/16/17 06/16/17 Range/Units 14:05 14:05 14:21 WBC 11.2 H (3.5-10.8) 10^3/ul RBC 3.11 L (4.0-5.4) 10^6/ul Hgb 9.2 L (12.0-16.0) g/dl Hct 28 L (35-47) % MCV 91 (80-97) fL MCH 30 (27-31) pg MCHC 32 (31-36) g/dl RDW 18 H (10.5-15) % Plt Count 207 (150-450) 10^3/ul MPV 10 (7.4-10.4) um3 Neut % (Auto) 83.5 H (38-83) % Lymph % (Auto) 10.2 L (25-47) % [place] % (Auto) 3.8 (1-9) % Eos % (Auto) 1.6 (0-6) % Baso % (Auto) 0.9 (0-2) % Absolute Neuts (auto) 9.4 H (1.5-7.7) 10^3/ul Absolute Lymphs (auto) 1.1 (1.0-4.8) 10^3/ul Absolute Monos (auto) 0.4 (0-0.8) 10^3/ul Absolute Eos (auto) 0.2 (0-0.6) 10^3/ul Absolute Basos (auto) 0.1 (0-0.2) 10^3/ul Absolute Nucleated RBC 0.01 10^3/ul Nucleated RBC % 0 INR (Anticoag Therapy) (0.89-1.11) APTT (26.0-36.3) seconds Sodium (133-145) mmol/L Potassium (3.5-5.0) mmol/L Chloride (101-111) mmol/L Carbon Dioxide (22-32) mmol/L Anion Gap (2-11) mmol/L BUN (6-24) mg/dL Creatinine (0.51-0.95) mg/dL Est GFR ( Amer) (>60) Est GFR (Non-Af Amer) (>60) BUN/Creatinine Ratio (8-20) Glucose (70-100) mg/dL Lactic Acid 2.1 H* (0.5-2.0) mmol/L Calcium (8.6-10.3) mg/dL Total Bilirubin (0.2-1.0) mg/dL AST (13-39) U/L ALT (7-52) U/L Alkaline Phosphatase (34-104) U/L C-Reactive Protein (< 5.00) mg/L B-Natriuretic Peptide ( - 100) pg/mL Total Protein (6.4-8.9) g/dL Albumin (3.2-5.2) g/dL Globulin (2-4) g/dL Albumin/Globulin Ratio (1-3) Urine Color Yellow Urine Appearance Clear Urine pH 6.0 (5-9) Ur Specific [place] 1.024 (1.010-1.030) Urine Protein 2+(100 mg/dl) H (Negative) Urine Ketones Negative (Negative) Urine Blood 2+ H (Negative) Urine Nitrate Positive H (Negative) Urine Bilirubin Negative (Negative) Urine Urobilinogen Negative (Negative) Ur Leukocyte Esterase Trace H (Negative) Urine WBC (Auto) 2+(11-20/hpf) H (Absent) Urine RBC (Auto) 2+(6-10/hpf) H (Absent) Ur Squamous Epith Cells Present H (Absent) Urine Bacteria 1+ H (Absent) Urine Glucose 3+(>=500 mg/dl) H (Negative) Assess/Plan/Problems-Billing Assessment: Mrs. Galarza is a 57yo F with PMH of insulin dependent diabetes, CAD s/p CABG, PVD, CVA, chronic anemia, CKD stage 3, HTN, HLD, left subclavian stenosis s/p stent, left foot osteomyelitis s/p forefoot amputation, who presented to ED with chills found to have left heel abscess - Patient Problems (1) Abscess Comment: appreciate ID and ortho assistance cont IV linezolid cont Betadine wound dressings worrrisome continuation of pain in left foot d/w . Recommended monitoring x 48 hrs on IV antibiotics, if it still continues she may need to go to OR on Wednesday (2) Candidal intertrigo Comment: severe, started on daily diflucan IV (3) Uncontrolled type II diabetes mellitus Comment: under better control now, although at admission her BG>600 cont Lantus and ISS (4) Hyponatremia Comment: pseudohyponatremia due to high sugar, resolved (5) CKD (chronic kidney disease) stage 3, GFR 30-59 ml/min Comment: - Creatinine near baseline due to DM2 (6) Peripheral vascular disease Comment: Pt had stenting to the L LE Cont ASA and brilinta (7) HTN (hypertension) Comment: controlled, cont ACEI and coreg (8) UTI (urinary tract infection) Comment: - She does not have many urinary symptoms, but urine culture is growing E. coli resistant to fluoroquinolones, pt is allergic to other alternative antibiotics. will start nitrofurantoin (9) Nausea and vomiting Comment: Possible gastroparesis. Continue Reglan IV, prior to meals. start gentle IVF (10) DVT prophylaxis Comment: - SQ heparin. Status and Disposition: inpatient
[2017-06-18] MEDS: Insulin GLARGINE(*) 1 UNITS UNIT SUBCUT SCH (17:37)
[2017-06-18] MEDS: Spironolactone TAB* 25 MG PO SCH (17:44)
[2017-06-18] MEDS: Atorvastatin* 20 MG TAB PO SCH (19:41)
[2017-06-18] MEDS: Gabapentin CAP(*) 300 MG PO SCH (19:41)
[2017-06-18] MEDS: Pramipexole TAB* 0.5 MG PO SCH (19:42)
[2017-06-18] MEDS: Nitrofurantoin Macrocrystals* 50 MG CAP PO SCH (19:42)
[2017-06-19] MEDS: Insulin LISPRO* 1 UNITS UNIT SUBCUT SCH ×6 (01:14→21:46)
[2017-06-19] MEDS: Heparin VIAL(*) 5000 UNITS/ML VIAL (FIVE THOUSAND) SUBCUT SCH ×3 (05:24→21:45)
[2017-06-19] MEDS: Linezolid 600 MG IVPREMIX(*) 600 MG/300 ML BAG IVPB SCH ×2 (05:25→18:03)
[2017-06-19] MEDS: NS 0.9% 1000 ML* 1,000 ML IV SCH (05:29)
[2017-06-19] MEDS: Ondansetron INJ* 2 MG/ML VIAL IV PRN ×3 (05:30→21:43)
[2017-06-19] MEDS: Morphine INJ* 4 MG/ML 1 ML CARPUJECT IV PRN (07:11)
[2017-06-19] MEDS: Metoclopramide IV* 5 MG/ML 2 ML VIAL IV SCH ×3 (07:11→16:51)
[2017-06-19] MEDS: Tiotropium CAP.INH* CAP.INH/18 MCG (USE ORDER SET !) INH SCH (07:48)
[2017-06-19] MEDS: Mometasone/Formoter 100/5 MDI INH SCH ×2 (07:48→20:07)
[2017-06-19] MEDS: HYDROmorphone INJ* 1 MG/ML CARPUJECT SYRINGE IV SLOW PU PRN ×3 (09:16→20:04)
[2017-06-19] MEDS: D5NS 0.9% 1000 ML BAG* 1,000 ML IV SCH (09:21)
[2017-06-19] MEDS: Aspirin EC Low Dose* 81 MG TAB.EC PO SCH (09:54)
[2017-06-19] MEDS: Carvedilol TAB* 3.125 MG PO SCH ×2 (09:55→20:07)
[2017-06-19] MEDS: Nitrofurantoin Macrocrystals* 50 MG CAP PO SCH (09:56)
[2017-06-19] MEDS: Ticagrelor* 90 MG TAB PO SCH ×2 (09:56→20:08)
[2017-06-19] MEDS: Docusate CAP* 100 MG PO SCH ×2 (09:56→20:07)
[2017-06-19] MEDS: Lactobacillus Acidophilu (GG)* 1 CAP CAP PO SCH (09:56)
[2017-06-19] MEDS: Nystatin TOP POWDER* 15 GM BTL TOPICAL SCH ×3 (09:58→21:47)
[2017-06-19] MEDS: Fluconazole 100 MG IVPREMIX(*) 100 MG/50 ML BAG IVPB SCH (12:05)
[2017-06-19] MEDS: Enalapril TAB* 5 MG PO SCH (12:11)
--- NOTE | 2017-06-19 14:12 | PN ---
Subjective Date of Service: 06/19/17 Interval History: pt continues to refuse to eat. c/o severe pain in left stump and nausea. denies abd pain. sugars had been on the low side and Lantus was adjusted Objective Active Medications: Acetaminophen (Tylenol Tab*) 650 mg PO Q4H PRN PRN Reason: FEVER/PAIN Albuterol (Ventolin 2.5 Mg/3 Ml Neb.Roxy*) 2.5 mg INH Q2H PRN PRN Reason: SOB/WHEEZING Aspirin (Aspirin Ec Low Dose*) 81 mg PO DAILY [facility] Last Admin: 06/19/17 09:54 Dose: Not Given Atorvastatin Calcium (Lipitor*) 20 mg PO BEDTIME [facility] Last Admin: 06/18/17 19:41 Dose: Not Given Carvedilol (Coreg Tab*) 4.6875 mg PO BEDTIME [facility] Last Admin: 06/18/17 19:41 Dose: Not Given Carvedilol (Coreg Tab*) 1.5625 mg PO QAM [facility] Last Admin: 06/19/17 09:55 Dose: Not Given Dextrose (D50w Syringe 50 Ml*) 12.5 gm IV PUSH .FOR FS < 60 - SS PRN PRN Reason: FS < 60 Docusate Sodium (Colace Cap*) 100 mg PO BID [facility] Last Admin: 06/19/17 09:56 Dose: Not Given Enalapril Maleate (Vasotec Tab*) 5 mg PO DAILY@1200 [facility] Last Admin: 06/19/17 12:11 Dose: Not Given Gabapentin (Neurontin Cap(*)) 1,800 mg PO BEDTIME [facility] Last Admin: 06/18/17 19:41 Dose: Not Given Heparin Sodium (Porcine) (Heparin Vial(*)) 5,000 units SUBCUT Q8HR [facility] Last Admin: 06/19/17 05:24 Dose: 5,000 units Heparin Sodium (Porcine) (Heparin Flush Port (Ivad)) 5 ml FLUSH DAILY [facility] PRN Reason: Protocol Last Admin: 06/19/17 09:56 Dose: Not Given Hydromorphone HCl (Dilaudid Iv*) 1 mg IV SLOW PU Q3H PRN PRN Reason: PAIN Last Admin: 06/19/17 09:16 Dose: 1 mg Linezolid (Zyvox 600 Mg Ivpremix(*)) 600 mg in 300 mls @ 300 mls/hr IVPB Q12H [facility] Last Admin: 06/19/17 05:25 Dose: 300 mls/hr Fluconazole/Sodium Chloride (Diflucan 100 Mg Ivpremix(*)) 100 mg in 50 mls @ 100 mls/hr IVPB Q24H [facility] Last Admin: 06/19/17 12:05 Dose: 100 mls/hr Dextrose/Sodium Chloride (D5ns 0.9% 1000 Ml Bag*) 1,000 mls @ 50 mls/hr IV PER RATE [facility] Last Admin: 06/19/17 09:21 Dose: 50 mls/hr Insulin Glargine (Lantus(*)) 15 units SUBCUT Q24H [facility] Insulin Human Lispro (Humalog*) 0 units SUBCUT Q4H [facility] PRN Reason: Protocol Last Admin: 06/19/17 12:04 Dose: 2 units Lactobacillus Rhamnosus (Culturelle*) 1 cap PO DAILY [facility] Last Admin: 06/19/17 09:56 Dose: Not Given Metoclopramide HCl (Reglan Iv*) 5 mg IV AC [facility] Last Admin: 06/19/17 12:04 Dose: 5 mg Mometasone Furoate/Formoterol Fumar (Dulera 100/5 Mdi*) 1 puff INH BID [facility] Last Admin: 06/19/17 07:48 Dose: Not Given Nitrofurantoin Macrocrystals (Macrodantin*) 100 mg PO BID [facility] Evolocumab [Repatha (Sureclick] 140 Mg) 140 mg SC Q14D [facility] Last Admin: 06/16/17 20:44 Dose: Not Given Nystatin (Nystatin Top Powder*) 1 applic TOPICAL TID [facility] Last Admin: 06/19/17 09:58 Dose: 1 applic Ondansetron HCl (Zofran Inj*) 4 mg IV Q6H PRN PRN Reason: NAUSEA Last Admin: 06/19/17 05:30 Dose: 4 mg Pramipexole Dihydrochloride (Mirapex Tab*) 0.5 mg PO BEDTIME [facility] Last Admin: 06/18/17 19:42 Dose: Not Given Spironolactone (Aldactone Tab*) 12.5 mg PO MOWEFR [facility] Last Admin: 06/18/17 17:44 Dose: Not Given Ticagrelor (Brilinta*) 90 mg PO BID [facility] Last Admin: 06/19/17 09:56 Dose: Not Given Tiotropium [place] (Spiriva Cap.Inh*) 1 cap INH DAILY [facility] Last Admin: 06/19/17 07:48 Dose: Not Given Vital Signs 06/18/17 06/18/17 06/18/17 15:33 16:05 17:05 Temperature 98.2 F Pulse Rate 85 Respiratory 18 15 18 Rate Blood Pressure 160/80 (mmHg) O2 Sat by Pulse 98 Oximetry 06/18/17 06/18/17 06/18/17 18:05 19:05 19:34 Temperature 98.2 F Pulse Rate 89 Respiratory 18 16 18 Rate Blood Pressure 162/81 (mmHg) O2 Sat by Pulse 98 Oximetry 06/18/17 06/18/17 06/18/17 20:00 20:25 21:25 Temperature Pulse Rate Respiratory 17 19 17 Rate Blood Pressure (mmHg) O2 Sat by Pulse Oximetry 06/19/17 06/19/17 06/19/17 00:01 03:14 07:11 Temperature 98.2 F 98.6 F Pulse Rate 86 87 Respiratory 16 16 18 Rate Blood Pressure 153/78 142/76 (mmHg) O2 Sat by Pulse 99 98 Oximetry 06/19/17 06/19/17 06/19/17 08:00 08:11 08:24 Temperature 98.2 F Pulse Rate 85 Respiratory 15 17 18 Rate Blood Pressure 164/79 (mmHg) O2 Sat by Pulse 96 Oximetry 06/19/17 06/19/17 06/19/17 09:11 09:16 10:16 Temperature Pulse Rate Respiratory 16 17 15 Rate Blood Pressure (mmHg) O2 Sat by Pulse Oximetry Oxygen Devices in Use Now: None Appearance: 57 yo F in NAd, AAOx3 Eyes: No Scleral Icterus, PERRLA Ears/Nose/Mouth/Throat: NL Teeth, Lips, Gums, Mucous Membranes Moist Neck: NL Appearance and Movements; NL JVP, Trachea Midline Respiratory: Symmetrical Chest Expansion and Respiratory Effort, Clear to Auscultation Cardiovascular: NL Sounds; No Murmurs; No JVD, RRR Abdominal: NL Sounds; No Tenderness; No Distention, No Hepatosplenomegaly Lymphatic: No Cervical Adenopathy Extremities: No Edema, No Clubbing, Cyanosis, - - left heel ulcer unchanged,m no drainage, dry Skin: No Nodules or Sclerosis Neurological: Alert and Oriented x 3, NL Muscle Strength and Tone Result Diagrams: 06/18/17 05:40 06/18/17 05:40 Additional Lab and Data: Lab Results 06/16/17 06/16/17 06/16/17 Range/Units 14:05 14:05 14:05 WBC (3.5-10.8) 10^3/ul RBC (4.0-5.4) 10^6/ul Hgb (12.0-16.0) g/dl Hct (35-47) % MCV (80-97) fL MCH (27-31) pg MCHC (31-36) g/dl RDW (10.5-15) % Plt Count (150-450) 10^3/ul MPV (7.4-10.4) um3 Neut % (Auto) (38-83) % Lymph % (Auto) (25-47) % [place] % (Auto) (1-9) % Eos % (Auto) (0-6) % Baso % (Auto) (0-2) % Absolute Neuts (auto) (1.5-7.7) 10^3/ul Absolute Lymphs (auto) (1.0-4.8) 10^3/ul Absolute Monos (auto) (0-0.8) 10^3/ul Absolute Eos (auto) (0-0.6) 10^3/ul Absolute Basos (auto) (0-0.2) 10^3/ul Absolute Nucleated RBC 10^3/ul Nucleated RBC % INR (Anticoag Therapy) 0.88 L (0.89-1.11) APTT 28.0 (26.0-36.3) seconds Sodium 124 L (133-145) mmol/L Potassium 5.0 (3.5-5.0) mmol/L Chloride 91 L (101-111) mmol/L Carbon Dioxide 26 (22-32) mmol/L Anion Gap 7 (2-11) mmol/L BUN 30 H (6-24) mg/dL Creatinine 1.34 H (0.51-0.95) mg/dL Est GFR ( Amer) 52.6 (>60) Est GFR (Non-Af Amer) 40.9 (>60) BUN/Creatinine Ratio 22.4 H (8-20) Glucose 685 H* (70-100) mg/dL Lactic Acid (0.5-2.0) mmol/L Calcium 9.0 (8.6-10.3) mg/dL Total Bilirubin 0.40 (0.2-1.0) mg/dL AST 10 L (13-39) U/L ALT 6 L (7-52) U/L Alkaline Phosphatase 184 H (34-104) U/L C-Reactive Protein 50.37 H (< 5.00) mg/L B-Natriuretic Peptide 866 H ( - 100) pg/mL Total Protein 6.5 (6.4-8.9) g/dL Albumin 2.8 L (3.2-5.2) g/dL Globulin 3.7 (2-4) g/dL Albumin/Globulin Ratio 0.8 L (1-3) Urine Color Urine Appearance Urine pH (5-9) Ur Specific [place] (1.010-1.030) Urine Protein (Negative) Urine Ketones (Negative) Urine Blood (Negative) Urine Nitrate (Negative) Urine Bilirubin (Negative) Urine Urobilinogen (Negative) Ur Leukocyte Esterase (Negative) Urine WBC (Auto) (Absent) Urine RBC (Auto) (Absent) Ur Squamous Epith Cells (Absent) Urine Bacteria (Absent) Urine Glucose (Negative) 06/16/17 06/16/17 06/16/17 Range/Units 14:05 14:05 14:21 WBC 11.2 H (3.5-10.8) 10^3/ul RBC 3.11 L (4.0-5.4) 10^6/ul Hgb 9.2 L (12.0-16.0) g/dl Hct 28 L (35-47) % MCV 91 (80-97) fL MCH 30 (27-31) pg MCHC 32 (31-36) g/dl RDW 18 H (10.5-15) % Plt Count 207 (150-450) 10^3/ul MPV 10 (7.4-10.4) um3 Neut % (Auto) 83.5 H (38-83) % Lymph % (Auto) 10.2 L (25-47) % [place] % (Auto) 3.8 (1-9) % Eos % (Auto) 1.6 (0-6) % Baso % (Auto) 0.9 (0-2) % Absolute Neuts (auto) 9.4 H (1.5-7.7) 10^3/ul Absolute Lymphs (auto) 1.1 (1.0-4.8) 10^3/ul Absolute Monos (auto) 0.4 (0-0.8) 10^3/ul Absolute Eos (auto) 0.2 (0-0.6) 10^3/ul Absolute Basos (auto) 0.1 (0-0.2) 10^3/ul Absolute Nucleated RBC 0.01 10^3/ul Nucleated RBC % 0 INR (Anticoag Therapy) (0.89-1.11) APTT (26.0-36.3) seconds Sodium (133-145) mmol/L Potassium (3.5-5.0) mmol/L Chloride (101-111) mmol/L Carbon Dioxide (22-32) mmol/L Anion Gap (2-11) mmol/L BUN (6-24) mg/dL Creatinine (0.51-0.95) mg/dL Est GFR ( Amer) (>60) Est GFR (Non-Af Amer) (>60) BUN/Creatinine Ratio (8-20) Glucose (70-100) mg/dL Lactic Acid 2.1 H* (0.5-2.0) mmol/L Calcium (8.6-10.3) mg/dL Total Bilirubin (0.2-1.0) mg/dL AST (13-39) U/L ALT (7-52) U/L Alkaline Phosphatase (34-104) U/L C-Reactive Protein (< 5.00) mg/L B-Natriuretic Peptide ( - 100) pg/mL Total Protein (6.4-8.9) g/dL Albumin (3.2-5.2) g/dL Globulin (2-4) g/dL Albumin/Globulin Ratio (1-3) Urine Color Yellow Urine Appearance Clear Urine pH 6.0 (5-9) Ur Specific [place] 1.024 (1.010-1.030) Urine Protein 2+(100 mg/dl) H (Negative) Urine Ketones Negative (Negative) Urine Blood 2+ H (Negative) Urine Nitrate Positive H (Negative) Urine Bilirubin Negative (Negative) Urine Urobilinogen Negative (Negative) Ur Leukocyte Esterase Trace H (Negative) Urine WBC (Auto) 2+(11-20/hpf) H (Absent) Urine RBC (Auto) 2+(6-10/hpf) H (Absent) Ur Squamous Epith Cells Present H (Absent) Urine Bacteria 1+ H (Absent) Urine Glucose 3+(>=500 mg/dl) H (Negative) Microbiology and Other Data: Microbiology 06/17/17 18:09 Aerobic Blood Culture - Preliminary Blood Venous No Growth Day 1 Anaerobic Blood Culture - Preliminary No Growth Day 1 Assess/Plan/Problems-Billing Assessment: Mrs. Galarza is a 57yo F with PMH of insulin dependent diabetes, CAD s/p CABG, PVD, CVA, chronic anemia, CKD stage 3, HTN, HLD, left subclavian stenosis s/p stent, left foot osteomyelitis s/p forefoot amputation, who presented to ED with chills found to have left heel abscess - Patient Problems (1) Abscess Comment: appreciate ID and ortho assistance cont IV linezolid cont Betadine wound dressings worrrisome continuation of pain in left foot d/w . Recommended monitoring ciera the weekend on IV antibiotics, if it still continues she may need to go to OR on Wednesday (2) Candidal intertrigo Comment: severe, started on daily diflucan IV (3) Uncontrolled type II diabetes mellitus Comment: low sugar due to no appetitie. Lantus insulin dose lowered. started on D5NS (4) Hyponatremia Comment: pseudohyponatremia due to high sugar, resolved (5) CKD (chronic kidney disease) stage 3, GFR 30-59 ml/min Comment: - Creatinine near baseline due to DM2 (6) Peripheral vascular disease Comment: Pt had stenting to the L LE Cont ASA and brilinta (7) HTN (hypertension) Comment: controlled, cont ACEI and coreg (8) UTI (urinary tract infection) Comment: - She does not have many urinary symptoms, but urine culture is growing E. coli resistant to fluoroquinolones, pt is allergic to other alternative antibiotics. cont nitrofurantoin (9) Nausea and vomiting Comment: Possible gastroparesis. Continue Reglan IV, prior to meals. cont gentle IVF (10) DVT prophylaxis Comment: - SQ heparin. Status and Disposition: inpatient
[2017-06-19] MEDS: Nitrofurantoin Macrocrystals* 100 MG CAP PO SCH ×2 (14:55→20:08)
[2017-06-19] MEDS: Insulin GLARGINE(*) 1 UNITS UNIT SUBCUT SCH (18:02)
[2017-06-19] MEDS: Gabapentin CAP(*) 300 MG PO SCH (20:07)
[2017-06-19] MEDS: Atorvastatin* 20 MG TAB PO SCH (20:07)
[2017-06-19] MEDS: Pramipexole TAB* 0.5 MG PO SCH (20:08)
[2017-06-20] MEDS: Insulin LISPRO* 1 UNITS UNIT SUBCUT SCH ×6 (00:53→21:10)
[2017-06-20] MEDS: Ondansetron INJ* 2 MG/ML VIAL IV PRN ×4 (05:17→20:08)
[2017-06-20] MEDS: Heparin VIAL(*) 5000 UNITS/ML VIAL (FIVE THOUSAND) SUBCUT SCH ×3 (05:29→21:54)
[2017-06-20] MEDS: Linezolid 600 MG IVPREMIX(*) 600 MG/300 ML BAG IVPB SCH ×2 (05:31→17:36)
[2017-06-20] MEDS: HYDROmorphone INJ* 1 MG/ML CARPUJECT SYRINGE IV SLOW PU PRN ×4 (05:46→20:08)
[2017-06-20 05:47] LABS: Hematocrit 30 % (35-47); Hemoglobin 9.7 g/dl (12.0-16.0); Mean Corpuscular HGB Conc 32 g/dl (31-36); Mean Corpuscular Hemoglobin 29 pg (27-31); Mean Corpuscular Volume 91 fL (80-97); Mean Platelet Volume 9 um3 (7.4-10.4); Red Blood Count 3.32 10^6/ul (4.0-5.4); Red Cell Distribution Width 18 % (10.5-15); White Blood Count 8.4 10^3/ul (3.5-10.8)
[2017-06-20 06:09] LABS: BUN/Creatinine Ratio 15.3 (8-20); C Reactive Protein 7.51 mg/L (< 5.00); Calcium 8.7 mg/dL (8.6-10.3); EGFR African American 60.9 (>60); EGFR Non-African American 47.4 (>60); Potassium 4.7 mmol/L (3.5-5.0)
[2017-06-20] MEDS: Metoclopramide IV* 5 MG/ML 2 ML VIAL IV SCH ×3 (07:50→16:38)
[2017-06-20] MEDS: D5NS 0.9% 1000 ML BAG* 1,000 ML IV SCH (07:52)
[2017-06-20] MEDS: Aspirin EC Low Dose* 81 MG TAB.EC PO SCH (08:03)
[2017-06-20] MEDS: Carvedilol TAB* 3.125 MG PO SCH ×2 (08:03→20:18)
[2017-06-20] MEDS: Lactobacillus Acidophilu (GG)* 1 CAP CAP PO SCH (08:03)
[2017-06-20] MEDS: Docusate CAP* 100 MG PO SCH ×2 (08:03→20:18)
[2017-06-20] MEDS: Ticagrelor* 90 MG TAB PO SCH ×2 (08:04→20:20)
[2017-06-20] MEDS: Nitrofurantoin Macrocrystals* 100 MG CAP PO SCH ×2 (08:04→20:19)
[2017-06-20] MEDS: Mometasone/Formoter 100/5 MDI INH SCH ×2 (08:06→19:51)
[2017-06-20] MEDS: Tiotropium CAP.INH* CAP.INH/18 MCG (USE ORDER SET !) INH SCH (08:06)
--- NOTE | 2017-06-20 09:24 | PN ---
Subjective Date of Service: 06/20/17 Interval History: pain is better controlled, ate some crackers this aM Objective Active Medications: Acetaminophen (Tylenol Tab*) 650 mg PO Q4H PRN PRN Reason: FEVER/PAIN Albuterol (Ventolin 2.5 Mg/3 Ml Neb.Roxy*) 2.5 mg INH Q2H PRN PRN Reason: SOB/WHEEZING Aspirin (Aspirin Ec Low Dose*) 81 mg PO DAILY [facility] Last Admin: 06/20/17 08:03 Dose: Not Given Atorvastatin Calcium (Lipitor*) 20 mg PO BEDTIME [facility] Last Admin: 06/19/17 20:07 Dose: Not Given Carvedilol (Coreg Tab*) 4.6875 mg PO BEDTIME [facility] Last Admin: 06/19/17 20:07 Dose: Not Given Carvedilol (Coreg Tab*) 1.5625 mg PO QAM [facility] Last Admin: 06/20/17 08:03 Dose: Not Given Dextrose (D50w Syringe 50 Ml*) 12.5 gm IV PUSH .FOR FS < 60 - SS PRN PRN Reason: FS < 60 Docusate Sodium (Colace Cap*) 100 mg PO BID [facility] Last Admin: 06/20/17 08:03 Dose: Not Given Enalapril Maleate (Vasotec Tab*) 5 mg PO DAILY@1200 [facility] Last Admin: 06/19/17 12:11 Dose: Not Given Gabapentin (Neurontin Cap(*)) 1,800 mg PO BEDTIME [facility] Last Admin: 06/19/17 20:07 Dose: Not Given Heparin Sodium (Porcine) (Heparin Vial(*)) 5,000 units SUBCUT Q8HR [facility] Last Admin: 06/20/17 05:29 Dose: 5,000 units Heparin Sodium (Porcine) (Heparin Flush Port (Ivad)) 5 ml FLUSH DAILY [facility] PRN Reason: Protocol Last Admin: 06/20/17 08:08 Dose: Not Given Hydromorphone HCl (Dilaudid Iv*) 1 mg IV SLOW PU Q3H PRN PRN Reason: PAIN Last Admin: 06/20/17 05:46 Dose: 1 mg Linezolid (Zyvox 600 Mg Ivpremix(*)) 600 mg in 300 mls @ 300 mls/hr IVPB Q12H [facility] Last Admin: 06/20/17 05:31 Dose: 300 mls/hr Fluconazole/Sodium Chloride (Diflucan 100 Mg Ivpremix(*)) 100 mg in 50 mls @ 100 mls/hr IVPB Q24H [facility] Last Admin: 06/19/17 12:05 Dose: 100 mls/hr Dextrose/Sodium Chloride (D5ns 0.9% 1000 Ml Bag*) 1,000 mls @ 50 mls/hr IV PER RATE [facility] Last Admin: 06/20/17 07:52 Dose: 50 mls/hr Insulin Glargine (Lantus(*)) 15 units SUBCUT Q24H [facility] Last Admin: 06/19/17 18:02 Dose: 15 units Insulin Human Lispro (Humalog*) 0 units SUBCUT Q4H [facility] PRN Reason: Protocol Last Admin: 06/20/17 07:51 Dose: 6 units Lactobacillus Rhamnosus (Culturelle*) 1 cap PO DAILY [facility] Last Admin: 06/20/17 08:03 Dose: Not Given Metoclopramide HCl (Reglan Iv*) 5 mg IV AC [facility] Last Admin: 06/20/17 07:50 Dose: 5 mg Mometasone Furoate/Formoterol Fumar (Dulera 100/5 Mdi*) 1 puff INH BID [facility] Last Admin: 06/20/17 08:06 Dose: Not Given Nitrofurantoin Macrocrystals (Macrodantin*) 100 mg PO BID [facility] Last Admin: 06/20/17 08:04 Dose: Not Given Evolocumab [Repatha (Sureclick] 140 Mg) 140 mg SC Q14D [facility] Last Admin: 06/16/17 20:44 Dose: Not Given Nystatin (Nystatin Top Powder*) 1 applic TOPICAL TID [facility] Last Admin: 06/19/17 21:47 Dose: 1 applic Ondansetron HCl (Zofran Inj*) 4 mg IV Q6H PRN PRN Reason: NAUSEA Last Admin: 06/20/17 05:17 Dose: 4 mg Pramipexole Dihydrochloride (Mirapex Tab*) 0.5 mg PO BEDTIME [facility] Last Admin: 06/19/17 20:08 Dose: Not Given Spironolactone (Aldactone Tab*) 12.5 mg PO MOWEFR [facility] Last Admin: 06/18/17 17:44 Dose: Not Given Ticagrelor (Brilinta*) 90 mg PO BID [facility] Last Admin: 06/20/17 08:04 Dose: Not Given Tiotropium [place] (Spiriva Cap.Inh*) 1 cap INH DAILY [facility] Last Admin: 06/20/17 08:06 Dose: Not Given Vital Signs 06/19/17 06/19/17 06/19/17 10:16 14:48 15:32 Temperature 98.1 F Pulse Rate 79 Respiratory 15 15 16 Rate Blood Pressure 161/87 (mmHg) O2 Sat by Pulse 97 Oximetry 06/19/17 06/19/17 06/19/17 15:42 20:00 20:04 Temperature Pulse Rate Respiratory 14 16 17 Rate Blood Pressure (mmHg) O2 Sat by Pulse Oximetry 06/19/17 06/20/17 06/20/17 21:04 00:57 05:46 Temperature 98.6 F Pulse Rate 90 Respiratory 16 12 16 Rate Blood Pressure 167/89 (mmHg) O2 Sat by Pulse 99 Oximetry 06/20/17 06:46 Temperature Pulse Rate Respiratory 18 Rate Blood Pressure (mmHg) O2 Sat by Pulse Oximetry Oxygen Devices in Use Now: None Appearance: 57 yo F in nAD, aAOx3 Eyes: No Scleral Icterus, PERRLA Ears/Nose/Mouth/Throat: NL Teeth, Lips, Gums, Mucous Membranes Moist Neck: NL Appearance and Movements; NL JVP, Trachea Midline Respiratory: Symmetrical Chest Expansion and Respiratory Effort, Clear to Auscultation Cardiovascular: NL Sounds; No Murmurs; No JVD, RRR Abdominal: NL Sounds; No Tenderness; No Distention Lymphatic: No Cervical Adenopathy Extremities: No Edema, No Clubbing, Cyanosis, - - left foot s/p partial ambutation with heel ulce4r at 4 cm in diam -unchanged, minimal drainage Skin: No Nodules or Sclerosis Neurological: Alert and Oriented x 3, NL Muscle Strength and Tone Result Diagrams: 06/20/17 05:38 06/20/17 05:38 Additional Lab and Data: Lab Results 06/16/17 06/16/17 06/16/17 Range/Units 14:05 14:05 14:05 WBC (3.5-10.8) 10^3/ul RBC (4.0-5.4) 10^6/ul Hgb (12.0-16.0) g/dl Hct (35-47) % MCV (80-97) fL MCH (27-31) pg MCHC (31-36) g/dl RDW (10.5-15) % Plt Count (150-450) 10^3/ul MPV (7.4-10.4) um3 Neut % (Auto) (38-83) % Lymph % (Auto) (25-47) % [place] % (Auto) (1-9) % Eos % (Auto) (0-6) % Baso % (Auto) (0-2) % Absolute Neuts (auto) (1.5-7.7) 10^3/ul Absolute Lymphs (auto) (1.0-4.8) 10^3/ul Absolute Monos (auto) (0-0.8) 10^3/ul Absolute Eos (auto) (0-0.6) 10^3/ul Absolute Basos (auto) (0-0.2) 10^3/ul Absolute Nucleated RBC 10^3/ul Nucleated RBC % INR (Anticoag Therapy) 0.88 L (0.89-1.11) APTT 28.0 (26.0-36.3) seconds Sodium 124 L (133-145) mmol/L Potassium 5.0 (3.5-5.0) mmol/L Chloride 91 L (101-111) mmol/L Carbon Dioxide 26 (22-32) mmol/L Anion Gap 7 (2-11) mmol/L BUN 30 H (6-24) mg/dL Creatinine 1.34 H (0.51-0.95) mg/dL Est GFR ( Amer) 52.6 (>60) Est GFR (Non-Af Amer) 40.9 (>60) BUN/Creatinine Ratio 22.4 H (8-20) Glucose 685 H* (70-100) mg/dL Lactic Acid (0.5-2.0) mmol/L Calcium 9.0 (8.6-10.3) mg/dL Total Bilirubin 0.40 (0.2-1.0) mg/dL AST 10 L (13-39) U/L ALT 6 L (7-52) U/L Alkaline Phosphatase 184 H (34-104) U/L C-Reactive Protein 50.37 H (< 5.00) mg/L B-Natriuretic Peptide 866 H ( - 100) pg/mL Total Protein 6.5 (6.4-8.9) g/dL Albumin 2.8 L (3.2-5.2) g/dL Globulin 3.7 (2-4) g/dL Albumin/Globulin Ratio 0.8 L (1-3) Urine Color Urine Appearance Urine pH (5-9) Ur Specific [place] (1.010-1.030) Urine Protein (Negative) Urine Ketones (Negative) Urine Blood (Negative) Urine Nitrate (Negative) Urine Bilirubin (Negative) Urine Urobilinogen (Negative) Ur Leukocyte Esterase (Negative) Urine WBC (Auto) (Absent) Urine RBC (Auto) (Absent) Ur Squamous Epith Cells (Absent) Urine Bacteria (Absent) Urine Glucose (Negative) 06/16/17 06/16/17 06/16/17 Range/Units 14:05 14:05 14:21 WBC 11.2 H (3.5-10.8) 10^3/ul RBC 3.11 L (4.0-5.4) 10^6/ul Hgb 9.2 L (12.0-16.0) g/dl Hct 28 L (35-47) % MCV 91 (80-97) fL MCH 30 (27-31) pg MCHC 32 (31-36) g/dl RDW 18 H (10.5-15) % Plt Count 207 (150-450) 10^3/ul MPV 10 (7.4-10.4) um3 Neut % (Auto) 83.5 H (38-83) % Lymph % (Auto) 10.2 L (25-47) % [place] % (Auto) 3.8 (1-9) % Eos % (Auto) 1.6 (0-6) % Baso % (Auto) 0.9 (0-2) % Absolute Neuts (auto) 9.4 H (1.5-7.7) 10^3/ul Absolute Lymphs (auto) 1.1 (1.0-4.8) 10^3/ul Absolute Monos (auto) 0.4 (0-0.8) 10^3/ul Absolute Eos (auto) 0.2 (0-0.6) 10^3/ul Absolute Basos (auto) 0.1 (0-0.2) 10^3/ul Absolute Nucleated RBC 0.01 10^3/ul Nucleated RBC % 0 INR (Anticoag Therapy) (0.89-1.11) APTT (26.0-36.3) seconds Sodium (133-145) mmol/L Potassium (3.5-5.0) mmol/L Chloride (101-111) mmol/L Carbon Dioxide (22-32) mmol/L Anion Gap (2-11) mmol/L BUN (6-24) mg/dL Creatinine (0.51-0.95) mg/dL Est GFR ( Amer) (>60) Est GFR (Non-Af Amer) (>60) BUN/Creatinine Ratio (8-20) Glucose (70-100) mg/dL Lactic Acid 2.1 H* (0.5-2.0) mmol/L Calcium (8.6-10.3) mg/dL Total Bilirubin (0.2-1.0) mg/dL AST (13-39) U/L ALT (7-52) U/L Alkaline Phosphatase (34-104) U/L C-Reactive Protein (< 5.00) mg/L B-Natriuretic Peptide ( - 100) pg/mL Total Protein (6.4-8.9) g/dL Albumin (3.2-5.2) g/dL Globulin (2-4) g/dL Albumin/Globulin Ratio (1-3) Urine Color Yellow Urine Appearance Clear Urine pH 6.0 (5-9) Ur Specific [place] 1.024 (1.010-1.030) Urine Protein 2+(100 mg/dl) H (Negative) Urine Ketones Negative (Negative) Urine Blood 2+ H (Negative) Urine Nitrate Positive H (Negative) Urine Bilirubin Negative (Negative) Urine Urobilinogen Negative (Negative) Ur Leukocyte Esterase Trace H (Negative) Urine WBC (Auto) 2+(11-20/hpf) H (Absent) Urine RBC (Auto) 2+(6-10/hpf) H (Absent) Ur Squamous Epith Cells Present H (Absent) Urine Bacteria 1+ H (Absent) Urine Glucose 3+(>=500 mg/dl) H (Negative) Microbiology and Other Data: Microbiology 06/17/17 18:09 Aerobic Blood Culture - Preliminary Blood Venous No Growth Day 1 Anaerobic Blood Culture - Preliminary No Growth Day 1 Assess/Plan/Problems-Billing Assessment: Mrs. Galarza is a 57yo F with PMH of insulin dependent diabetes, CAD s/p CABG, PVD, CVA, chronic anemia, CKD stage 3, HTN, HLD, left subclavian stenosis s/p stent, left foot osteomyelitis s/p forefoot amputation, who presented to ED with chills found to have left heel abscess - Patient Problems (1) Abscess Comment: appreciate ID and ortho assistance cont IV linezolid cont Betadine wound dressings worrrisome continuation of pain in left foot d/w . Recommended monitoring ciera the weekend on IV antibiotics, if it still continues she may need to go to OR on Wednesday (2) Candidal intertrigo Comment: severe, cont daily diflucan IV x 5 days total 9last day 06/21/17 (3) Uncontrolled type II diabetes mellitus Comment: low sugar due to no appetitie. Lantus insulin dose lowered on 06/19/17. cont D5NS (4) Hyponatremia Comment: pseudohyponatremia due to high sugar, resolved (5) CKD (chronic kidney disease) stage 3, GFR 30-59 ml/min Comment: - Creatinine near baseline due to DM2 (6) Peripheral vascular disease Comment: Pt had stenting to the L LE Cont ASA and brilinta (7) HTN (hypertension) Comment: uncontrolled, cont ACEI (increase enalapril from 5 to 10 mg) and coreg (8) UTI (urinary tract infection) Comment: - She does not have many urinary symptoms, but urine culture is growing E. coli resistant to fluoroquinolones, pt is allergic to other alternative antibiotics. cont nitrofurantoin x 5 days(last day 06/22/17) (9) Nausea and vomiting Comment: Possible gastroparesis. Continue Reglan IV, prior to meals. cont gentle IVF (10) DVT prophylaxis Comment: - SQ heparin. Status and Disposition: inpatient
[2017-06-20] MEDS: Nystatin TOP POWDER* 15 GM BTL TOPICAL SCH ×3 (10:24→20:20)
[2017-06-20] MEDS: Fluconazole 100 MG IVPREMIX(*) 100 MG/50 ML BAG IVPB SCH (11:20)
[2017-06-20] MEDS: Enalapril TAB* 5 MG PO SCH (11:43)
[2017-06-20] MEDS: Insulin GLARGINE(*) 1 UNITS UNIT SUBCUT SCH (16:39)
[2017-06-20] MEDS: Atorvastatin* 20 MG TAB PO SCH (20:18)
[2017-06-20] MEDS: Gabapentin CAP(*) 300 MG PO SCH (20:19)
[2017-06-20] MEDS: Pramipexole TAB* 0.5 MG PO SCH (20:19)
[2017-06-21] MEDS: HYDROmorphone INJ* 1 MG/ML CARPUJECT SYRINGE IV SLOW PU PRN ×4 (01:12→21:56)
[2017-06-21] MEDS: Insulin LISPRO* 1 UNITS UNIT SUBCUT SCH ×6 (01:12→22:10)
[2017-06-21] MEDS: Ondansetron INJ* 2 MG/ML VIAL IV PRN ×3 (04:02→21:36)
[2017-06-21] MEDS: D5NS 0.9% 1000 ML BAG* 1,000 ML IV SCH ×2 (05:22→16:31)
[2017-06-21] MEDS: Linezolid 600 MG IVPREMIX(*) 600 MG/300 ML BAG IVPB SCH ×2 (05:42→17:46)
[2017-06-21] MEDS: Heparin VIAL(*) 5000 UNITS/ML VIAL (FIVE THOUSAND) SUBCUT SCH ×3 (05:51→22:10)
--- NOTE | 2017-06-21 07:53 | PN ---
PROGRESS NOTE: DATE OF SERVICE: 06/21/17 HISTORY: Michelle has been in hospital 4 to 5 days now with some antibiotics, but the pain in her left hindfoot stump is not particularly improved. In fact, if anything, she thinks the pain might be getting worse slowly, but nevertheless worse. The exam of the foot has been benign without any maribel drainage. No significant erythema, but she is quite tender with any generalized palpation around the heel pad. Her CT scan showed good continuity of the bone, but possibility of a soft tissue collection, so I think a limited opening debridement would be in order today. I have explained to Michelle that she needs to be n.p.o. We also discussed possibility of shortening her leg to a more traditional amputation level at the transtibial site. She is absolutely adamant against that option unless there were overwhelming reasons from an infection standpoint why she needed that. The foot heel area will be explored today, cultures sent and decisions made pending the result of the surgery today. [id number]/CPS #: [id number] ABNER
[2017-06-21] MEDS: Mometasone/Formoter 100/5 MDI INH SCH ×2 (07:55→20:32)
[2017-06-21] MEDS: Tiotropium CAP.INH* CAP.INH/18 MCG (USE ORDER SET !) INH SCH (07:55)
[2017-06-21] MEDS: Metoprolol Tartrate IV* 1 MG/ML 5 ML VIAL IV SCH ×3 (10:05→21:33)
[2017-06-21] MEDS: Carvedilol TAB* 3.125 MG PO SCH ×2 (10:06→21:47)
[2017-06-21] MEDS: Docusate CAP* 100 MG PO SCH ×2 (10:06→22:00)
[2017-06-21] MEDS: Lactobacillus Acidophilu (GG)* 1 CAP CAP PO SCH (10:06)
[2017-06-21] MEDS: Aspirin EC Low Dose* 81 MG TAB.EC PO SCH (10:06)
[2017-06-21] MEDS: Metoclopramide IV* 5 MG/ML 2 ML VIAL IV SCH ×3 (10:19→15:37)
[2017-06-21] MEDS: Nitrofurantoin Macrocrystals* 100 MG CAP PO SCH ×2 (10:19→23:15)
[2017-06-21] MEDS: Ticagrelor* 90 MG TAB PO SCH ×2 (10:19→21:47)
[2017-06-21] MEDS ORDERED: KETAMINE HCL* 50 MG/ML 10 ML VIAL ONE (11:25)
[2017-06-21] MEDS ORDERED: Ondansetron INJ* 2 MG/ML VIAL ONE (11:25)
[2017-06-21] MEDS ORDERED: fentaNYL* 50 MCG/ML 2 ML VIAL (100 MCG VIAL) ONE (11:25)
[2017-06-21] MEDS ORDERED: Propofol* 10 MG/ML 20 ML BTL IV PUSH ONE ×2 (11:25→13:13)
[2017-06-21] MEDS ORDERED: Midazolam* 1 MG/ML 5 ML VIAL (5 MG) ONE (11:25)
[2017-06-21] MEDS ORDERED: Lidocaine 2% PF * 5 ML VIAL ONE (11:25)
[2017-06-21] MEDS ORDERED: PROCHLORPERAZINE INJ 5 MG/ML 2 ML VIAL ONE (12:47)
[2017-06-21] MEDS ORDERED: Midazolam* 1 MG/ML 2 ML VIAL (2 MG) ONE (13:01)
[2017-06-21] MEDS ORDERED: oxyCODONE/Acetamin 5/325 MG* TAB PO PRN (13:20)
[2017-06-21] MEDS ORDERED: fentaNYL* 50 MCG/ML 2 ML VIAL (100 MCG VIAL) IV PRN (13:20)
[2017-06-21] MEDS ORDERED: PROCHLORPERAZINE INJ 5 MG/ML 2 ML VIAL IV PRN (13:20)
[2017-06-21] MEDS ORDERED: Lidocaine 2% PF* 10 ML AMP ONE (13:34)
[2017-06-21] MEDS: Nystatin TOP POWDER* 15 GM BTL TOPICAL SCH ×3 (13:42→22:00)
[2017-06-21] MEDS: Enalapril TAB* 5 MG PO SCH (15:38)
--- NOTE | 2017-06-21 15:50 | PN ---
Subjective Date of Service: 06/21/17 Interval History: Pt was seen post op in PACU, doing well, sleepy. Objective Active Medications: Acetaminophen (Tylenol Tab*) 650 mg PO Q4H PRN PRN Reason: FEVER/PAIN Albuterol (Ventolin 2.5 Mg/3 Ml Neb.Roxy*) 2.5 mg INH Q2H PRN PRN Reason: SOB/WHEEZING Aspirin (Aspirin Ec Low Dose*) 81 mg PO DAILY [facility] Last Admin: 06/21/17 10:06 Dose: Not Given Atorvastatin Calcium (Lipitor*) 20 mg PO BEDTIME [facility] Last Admin: 06/20/17 20:18 Dose: Not Given Carvedilol (Coreg Tab*) 4.6875 mg PO BEDTIME [facility] Last Admin: 06/20/17 20:18 Dose: Not Given Carvedilol (Coreg Tab*) 1.5625 mg PO QAM [facility] Last Admin: 06/21/17 10:06 Dose: Not Given Dextrose (D50w Syringe 50 Ml*) 12.5 gm IV PUSH .FOR FS < 60 - SS PRN PRN Reason: FS < 60 Docusate Sodium (Colace Cap*) 100 mg PO BID [facility] Last Admin: 06/21/17 10:06 Dose: Not Given Enalapril Maleate (Vasotec Tab*) 10 mg PO DAILY@1200 [facility] Last Admin: 06/21/17 15:38 Dose: Not Given Fentanyl Citrate (Fentanyl*) 50 mcg IV Q5M PRN PRN Reason: PAIN - MODERATE Stop: 06/21/17 13:41 Gabapentin (Neurontin Cap(*)) 1,800 mg PO BEDTIME [facility] Last Admin: 06/20/17 20:19 Dose: Not Given Heparin Sodium (Porcine) (Heparin Vial(*)) 5,000 units SUBCUT Q8HR [facility] Last Admin: 06/21/17 15:37 Dose: 5,000 units Heparin Sodium (Porcine) (Heparin Flush Port (Ivad)) 5 ml FLUSH DAILY [facility] PRN Reason: Protocol Last Admin: 06/21/17 10:06 Dose: Not Given Hydromorphone HCl (Dilaudid Iv*) 1 mg IV SLOW PU Q3H PRN PRN Reason: PAIN Last Admin: 06/21/17 15:36 Dose: 1 mg Linezolid (Zyvox 600 Mg Ivpremix(*)) 600 mg in 300 mls @ 300 mls/hr IVPB Q12H [facility] Last Admin: 06/21/17 05:42 Dose: 300 mls/hr Fluconazole/Sodium Chloride (Diflucan 100 Mg Ivpremix(*)) 100 mg in 50 mls @ 100 mls/hr IVPB Q24H [facility] Last Admin: 06/20/17 11:20 Dose: 100 mls/hr Dextrose/Sodium Chloride (D5ns 0.9% 1000 Ml Bag*) 1,000 mls @ 50 mls/hr IV PER RATE [facility] Last Admin: 06/21/17 05:22 Dose: 50 mls/hr Insulin Glargine (Lantus(*)) 15 units SUBCUT Q24H [facility] Last Admin: 06/20/17 16:39 Dose: 15 units Insulin Human Lispro (Humalog*) 0 units SUBCUT Q4H [facility] PRN Reason: Protocol Last Admin: 06/21/17 13:43 Dose: Not Given Lactobacillus Rhamnosus (Culturelle*) 1 cap PO DAILY [facility] Last Admin: 06/21/17 10:06 Dose: Not Given Metoclopramide HCl (Reglan Iv*) 5 mg IV AC [facility] Last Admin: 06/21/17 15:37 Dose: Not Given Metoprolol Tartrate (Lopressor Iv*) 5 mg IV Q6H [facility] Last Admin: 06/21/17 15:39 Dose: 5 mg Mometasone Furoate/Formoterol Fumar (Dulera 100/5 Mdi*) 1 puff INH BID [facility] Last Admin: 06/21/17 07:55 Dose: Not Given Nitrofurantoin Macrocrystals (Macrodantin*) 100 mg PO BID [facility] Last Admin: 06/21/17 10:19 Dose: Not Given Evolocumab [Repatha (Sureclick] 140 Mg) 140 mg SC Q14D [facility] Nystatin (Nystatin Top Powder*) 1 applic TOPICAL TID [facility] Last Admin: 06/21/17 15:39 Dose: 1 applic Ondansetron HCl (Zofran Inj*) 4 mg IV Q6H PRN PRN Reason: NAUSEA Last Admin: 06/21/17 10:05 Dose: 4 mg Oxycodone/Acetaminophen (Percocet 5/325 Tab*) 1 tab PO ONCE PRN PRN Reason: PAIN - MODERATE Stop: 06/22/17 13:21 Pramipexole Dihydrochloride (Mirapex Tab*) 0.5 mg PO BEDTIME [facility] Last Admin: 06/20/17 20:19 Dose: Not Given Prochlorperazine Edisylate (Compazine Inj*) 5 mg IV ONCE PRN PRN Reason: NAUSEA/VOMITING Stop: 06/21/17 13:21 Spironolactone (Aldactone Tab*) 12.5 mg PO MOWEFR [facility] Last Admin: 06/18/17 17:44 Dose: Not Given Ticagrelor (Brilinta*) 90 mg PO BID [facility] Last Admin: 06/21/17 10:19 Dose: Not Given Tiotropium [place] (Spiriva Cap.Inh*) 1 cap INH DAILY [facility] Last Admin: 06/21/17 07:55 Dose: Not Given Vital Signs 06/20/17 06/20/17 06/20/17 16:38 17:38 19:15 Temperature 97.6 F Pulse Rate 94 Respiratory 18 14 16 Rate Blood Pressure 179/87 (mmHg) O2 Sat by Pulse 98 Oximetry 06/20/17 06/20/17 06/20/17 20:00 20:02 20:08 Temperature 97.6 F Pulse Rate 94 Respiratory 16 16 16 Rate Blood Pressure 179/87 (mmHg) O2 Sat by Pulse 98 Oximetry 06/20/17 06/20/17 06/21/17 21:08 23:31 01:12 Temperature 98.4 F Pulse Rate 100 Respiratory 16 16 16 Rate Blood Pressure 175/98 (mmHg) O2 Sat by Pulse 100 Oximetry 06/21/17 06/21/17 06/21/17 02:12 03:38 04:03 Temperature 98.2 F Pulse Rate 80 Respiratory 16 16 16 Rate Blood Pressure 167/84 (mmHg) O2 Sat by Pulse 97 Oximetry 06/21/17 06/21/17 06/21/17 05:03 07:54 07:59 Temperature 98.4 F Pulse Rate 80 87 Respiratory 15 16 18 Rate Blood Pressure 179/86 (mmHg) O2 Sat by Pulse 99 96 Oximetry 06/21/17 06/21/17 06/21/17 11:25 13:56 14:00 Temperature 98.5 F 96.8 F Pulse Rate 76 93 73 Respiratory 16 12 14 Rate Blood Pressure 170/96 131/69 131/68 (mmHg) O2 Sat by Pulse 98 95 99 Oximetry 06/21/17 06/21/17 06/21/17 14:05 14:10 14:15 Temperature Pulse Rate 72 73 76 Respiratory 14 14 16 Rate Blood Pressure 156/83 156/83 161/85 (mmHg) O2 Sat by Pulse 99 99 99 Oximetry 06/21/17 06/21/17 06/21/17 14:30 14:43 15:36 Temperature 97.3 F Pulse Rate 82 78 Respiratory 16 16 18 Rate Blood Pressure 174/94 180/90 (mmHg) O2 Sat by Pulse 98 97 Oximetry Oxygen Devices in Use Now: Nasal Cannula - at 2L Appearance: 57 yo F in nAD, aAOx3 Eyes: No Scleral Icterus, PERRLA Ears/Nose/Mouth/Throat: NL Teeth, Lips, Gums, Mucous Membranes Moist Neck: NL Appearance and Movements; NL JVP, Trachea Midline Respiratory: Symmetrical Chest Expansion and Respiratory Effort, Clear to Auscultation Cardiovascular: NL Sounds; No Murmurs; No JVD, RRR Abdominal: NL Sounds; No Tenderness; No Distention Lymphatic: No Cervical Adenopathy Extremities: No Edema, No Clubbing, Cyanosis, - - left stump in a splint and post op dressings Skin: No Nodules or Sclerosis, - - jorge intertrigo improving Neurological: Alert and Oriented x 3, NL Muscle Strength and Tone Result Diagrams: 06/20/17 05:38 06/20/17 05:38 Additional Lab and Data: Lab Results 06/16/17 06/16/17 06/16/17 Range/Units 14:05 14:05 14:05 WBC (3.5-10.8) 10^3/ul RBC (4.0-5.4) 10^6/ul Hgb (12.0-16.0) g/dl Hct (35-47) % MCV (80-97) fL MCH (27-31) pg MCHC (31-36) g/dl RDW (10.5-15) % Plt Count (150-450) 10^3/ul MPV (7.4-10.4) um3 Neut % (Auto) (38-83) % Lymph % (Auto) (25-47) % [place] % (Auto) (1-9) % Eos % (Auto) (0-6) % Baso % (Auto) (0-2) % Absolute Neuts (auto) (1.5-7.7) 10^3/ul Absolute Lymphs (auto) (1.0-4.8) 10^3/ul Absolute Monos (auto) (0-0.8) 10^3/ul Absolute Eos (auto) (0-0.6) 10^3/ul Absolute Basos (auto) (0-0.2) 10^3/ul Absolute Nucleated RBC 10^3/ul Nucleated RBC % INR (Anticoag Therapy) 0.88 L (0.89-1.11) APTT 28.0 (26.0-36.3) seconds Sodium 124 L (133-145) mmol/L Potassium 5.0 (3.5-5.0) mmol/L Chloride 91 L (101-111) mmol/L Carbon Dioxide 26 (22-32) mmol/L Anion Gap 7 (2-11) mmol/L BUN 30 H (6-24) mg/dL Creatinine 1.34 H (0.51-0.95) mg/dL Est GFR ( Amer) 52.6 (>60) Est GFR (Non-Af Amer) 40.9 (>60) BUN/Creatinine Ratio 22.4 H (8-20) Glucose 685 H* (70-100) mg/dL Lactic Acid (0.5-2.0) mmol/L Calcium 9.0 (8.6-10.3) mg/dL Total Bilirubin 0.40 (0.2-1.0) mg/dL AST 10 L (13-39) U/L ALT 6 L (7-52) U/L Alkaline Phosphatase 184 H (34-104) U/L C-Reactive Protein 50.37 H (< 5.00) mg/L B-Natriuretic Peptide 866 H ( - 100) pg/mL Total Protein 6.5 (6.4-8.9) g/dL Albumin 2.8 L (3.2-5.2) g/dL Globulin 3.7 (2-4) g/dL Albumin/Globulin Ratio 0.8 L (1-3) Urine Color Urine Appearance Urine pH (5-9) Ur Specific [place] (1.010-1.030) Urine Protein (Negative) Urine Ketones (Negative) Urine Blood (Negative) Urine Nitrate (Negative) Urine Bilirubin (Negative) Urine Urobilinogen (Negative) Ur Leukocyte Esterase (Negative) Urine WBC (Auto) (Absent) Urine RBC (Auto) (Absent) Ur Squamous Epith Cells (Absent) Urine Bacteria (Absent) Urine Glucose (Negative) 06/16/17 06/16/17 06/16/17 Range/Units 14:05 14:05 14:21 WBC 11.2 H (3.5-10.8) 10^3/ul RBC 3.11 L (4.0-5.4) 10^6/ul Hgb 9.2 L (12.0-16.0) g/dl Hct 28 L (35-47) % MCV 91 (80-97) fL MCH 30 (27-31) pg MCHC 32 (31-36) g/dl RDW 18 H (10.5-15) % Plt Count 207 (150-450) 10^3/ul MPV 10 (7.4-10.4) um3 Neut % (Auto) 83.5 H (38-83) % Lymph % (Auto) 10.2 L (25-47) % [place] % (Auto) 3.8 (1-9) % Eos % (Auto) 1.6 (0-6) % Baso % (Auto) 0.9 (0-2) % Absolute Neuts (auto) 9.4 H (1.5-7.7) 10^3/ul Absolute Lymphs (auto) 1.1 (1.0-4.8) 10^3/ul Absolute Monos (auto) 0.4 (0-0.8) 10^3/ul Absolute Eos (auto) 0.2 (0-0.6) 10^3/ul Absolute Basos (auto) 0.1 (0-0.2) 10^3/ul Absolute Nucleated RBC 0.01 10^3/ul Nucleated RBC % 0 INR (Anticoag Therapy) (0.89-1.11) APTT (26.0-36.3) seconds Sodium (133-145) mmol/L Potassium (3.5-5.0) mmol/L Chloride (101-111) mmol/L Carbon Dioxide (22-32) mmol/L Anion Gap (2-11) mmol/L BUN (6-24) mg/dL Creatinine (0.51-0.95) mg/dL Est GFR ( Amer) (>60) Est GFR (Non-Af Amer) (>60) BUN/Creatinine Ratio (8-20) Glucose (70-100) mg/dL Lactic Acid 2.1 H* (0.5-2.0) mmol/L Calcium (8.6-10.3) mg/dL Total Bilirubin (0.2-1.0) mg/dL AST (13-39) U/L ALT (7-52) U/L Alkaline Phosphatase (34-104) U/L C-Reactive Protein (< 5.00) mg/L B-Natriuretic Peptide ( - 100) pg/mL Total Protein (6.4-8.9) g/dL Albumin (3.2-5.2) g/dL Globulin (2-4) g/dL Albumin/Globulin Ratio (1-3) Urine Color Yellow Urine Appearance Clear Urine pH 6.0 (5-9) Ur Specific [place] 1.024 (1.010-1.030) Urine Protein 2+(100 mg/dl) H (Negative) Urine Ketones Negative (Negative) Urine Blood 2+ H (Negative) Urine Nitrate Positive H (Negative) Urine Bilirubin Negative (Negative) Urine Urobilinogen Negative (Negative) Ur Leukocyte Esterase Trace H (Negative) Urine WBC (Auto) 2+(11-20/hpf) H (Absent) Urine RBC (Auto) 2+(6-10/hpf) H (Absent) Ur Squamous Epith Cells Present H (Absent) Urine Bacteria 1+ H (Absent) Urine Glucose 3+(>=500 mg/dl) H (Negative) Microbiology and Other Data: Microbiology 06/17/17 18:09 Aerobic Blood Culture - Preliminary Blood Venous No Growth Day 1 Anaerobic Blood Culture - Preliminary No Growth Day 1 Assess/Plan/Problems-Billing Assessment: Mrs. Galarza is a 57yo F with PMH of insulin dependent diabetes, CAD s/p CABG, PVD, CVA, chronic anemia, CKD stage 3, HTN, HLD, left subclavian stenosis s/p stent, left foot osteomyelitis s/p forefoot amputation, who presented to ED with chills found to have left heel abscess - Patient Problems (1) Abscess Comment: appreciate ID and ortho assistance cont IV linezolid s/p washing out of left heel abscess by Dr. Hess on 06/21/17 (2) Candidal intertrigo Comment: severe, cont daily diflucan IV x 5 days total last day 06/21/17 (3) Uncontrolled type II diabetes mellitus Comment: low sugar due to no appetitie. Lantus insulin dose lowered on 06/19/17. cont D5NS (4) Hyponatremia Comment: pseudohyponatremia due to high sugar, resolved (5) CKD (chronic kidney disease) stage 3, GFR 30-59 ml/min Comment: - Creatinine near baseline due to DM2 (6) Peripheral vascular disease Comment: Pt had stenting to the L LE Cont ASA and brilinta (7) HTN (hypertension) Comment: uncontrolled, cont ACEI (increase enalapril from 5 to 10 mg) and coreg started on lopressor IV, sometimes pt is too nauseated to take PO (8) UTI (urinary tract infection) Comment: urine culture is growing E. coli resistant to fluoroquinolones, pt is allergic to other alternative antibiotics. cont nitrofurantoin x 5 days(last day 06/22/17) (9) Nausea and vomiting Comment: Possible gastroparesis. Continue Reglan IV, prior to meals. cont gentle IVF (10) DVT prophylaxis Comment: - SQ heparin. Status and Disposition: inpatient
[2017-06-21] MEDS ORDERED: Fluconazole 100 MG IVPREMIX(*) 100 MG/50 ML BAG IVPB SCH (16:00)
[2017-06-21] MEDS: Fluconazole 100 MG IVPREMIX(*) 100 MG/50 ML BAG IVPB SCH (16:06)
[2017-06-21] MEDS: Spironolactone TAB* 25 MG PO SCH (16:31)
[2017-06-21] MEDS: Insulin GLARGINE(*) 1 UNITS UNIT SUBCUT SCH (17:45)
[2017-06-21] MEDS ORDERED: Polyethylene Glycol 3350* 17 GM PACKET PO PRN (20:12)
[2017-06-21] MEDS: Pramipexole TAB* 0.5 MG PO SCH ×2 (21:48→23:15)
[2017-06-21] MEDS: Atorvastatin* 20 MG TAB PO SCH (22:00)
[2017-06-21] MEDS: Gabapentin CAP(*) 300 MG PO SCH (23:15)
[2017-06-22] MEDS: Insulin LISPRO* 1 UNITS UNIT SUBCUT SCH ×6 (01:47→21:37)
[2017-06-22] MEDS: HYDROmorphone INJ* 1 MG/ML CARPUJECT SYRINGE IV SLOW PU PRN ×5 (01:48→21:15)
[2017-06-22] MEDS: Metoprolol Tartrate IV* 1 MG/ML 5 ML VIAL IV SCH ×4 (03:04→21:14)
--- NOTE | 2017-06-22 03:38 | OP ---
DATE OF OPERATION: 06/21/17 - ROOM #408 DATE OF : 62 SURGEON: Tom Hess MD MAIL MACHINE OPERATOR: Jami Orantes PA-C ANESTHESIOLOGIST: Bubba Adames MD ANESTHESIA: Monitored anesthesia care. PRE-OP DIAGNOSIS: Abscess, left Pirogoff amputation soft tissue. POST-OP DIAGNOSIS: Abscess, left Pirogoff amputation soft tissue. OPERATIVE PROCEDURE: Biopsy, left calcaneus and debridement and drainage abscess. DESCRIPTION OF PROCEDURE: The patient was taken to the operating room where MAC anesthesia was utilized. We opened up the previous anterior transverse incision and raised the flap down plantar to the calcaneus. The deep soft tissues in this area we did encounter a rather small abscess probably 3 to 4 cm of purulent material, which appeared to be runny, syrupy, and brownish in color. We did remove the plantar aspect of the calcaneus, probably 1 cm wafer bone, for diagnostic purposes. A 3 L pulsatile lavage was used to cleanse the area and we closed with deep cervical sutures, 2-0 Vicryl subcu and Surgipro for the skin. The plantar ulcer, which was about 1 cm diameter was debrided with a 15 blade and Betadine dressing applied. The plaster splint was then applied. [id number]/[facility] #: [id number] MTDD
[2017-06-22] MEDS: Heparin VIAL(*) 5000 UNITS/ML VIAL (FIVE THOUSAND) SUBCUT SCH ×3 (06:01→21:15)
[2017-06-22] MEDS: Linezolid 600 MG IVPREMIX(*) 600 MG/300 ML BAG IVPB SCH ×2 (06:01→18:38)
[2017-06-22 06:37] LABS: Hematocrit 26 % (35-47); Hemoglobin 8.2 g/dl (12.0-16.0); Mean Corpuscular HGB Conc 32 g/dl (31-36); Mean Corpuscular Hemoglobin 29 pg (27-31); Mean Corpuscular Volume 92 fL (80-97); Mean Platelet Volume 9 um3 (7.4-10.4); Red Blood Count 2.82 10^6/ul (4.0-5.4); Red Cell Distribution Width 19 % (10.5-15); White Blood Count 10.7 10^3/ul (3.5-10.8)
[2017-06-22 06:49] LABS: BUN/Creatinine Ratio 15.5 (8-20); Calcium 8.4 mg/dL (8.6-10.3); EGFR African American 49.2 (>60); EGFR Non-African American 38.3 (>60)
[2017-06-22] MEDS: Metoclopramide IV* 5 MG/ML 2 ML VIAL IV SCH ×4 (07:58→23:44)
[2017-06-22] MEDS: Ondansetron INJ* 2 MG/ML VIAL IV PRN ×3 (07:59→21:14)
[2017-06-22] MEDS: Tiotropium CAP.INH* CAP.INH/18 MCG (USE ORDER SET !) INH SCH (08:54)
[2017-06-22] MEDS: Mometasone/Formoter 100/5 MDI INH SCH ×2 (08:54→19:39)
[2017-06-22] MEDS: Ticagrelor* 90 MG TAB PO SCH ×2 (09:03→19:39)
[2017-06-22] MEDS: Aspirin EC Low Dose* 81 MG TAB.EC PO SCH (09:03)
[2017-06-22] MEDS: Nitrofurantoin Macrocrystals* 100 MG CAP PO SCH ×2 (09:03→19:39)
[2017-06-22] MEDS: Docusate CAP* 100 MG PO SCH ×2 (09:03→21:23)
[2017-06-22] MEDS: Carvedilol TAB* 3.125 MG PO SCH ×2 (09:03→21:22)
[2017-06-22] MEDS: Lactobacillus Acidophilu (GG)* 1 CAP CAP PO SCH (09:03)
[2017-06-22] MEDS: Nystatin TOP POWDER* 15 GM BTL TOPICAL SCH ×3 (09:29→21:22)
--- NOTE | 2017-06-22 10:38 | PN ---
Subjective Date of Service: 06/22/17 Interval History: pt states that she feels "much better", although pt's nurse stated that pt's PO intake is still minimal. Pt denies abd pain. Pain in left stump is "7/10", but pt doesn't not appear to be in any discomfort, in fact she had to be waken up for the visit Objective Active Medications: Acetaminophen (Tylenol Tab*) 650 mg PO Q4H PRN PRN Reason: FEVER/PAIN Albuterol (Ventolin 2.5 Mg/3 Ml Neb.Roxy*) 2.5 mg INH Q2H PRN PRN Reason: SOB/WHEEZING Aspirin (Aspirin Ec Low Dose*) 81 mg PO DAILY [facility] Last Admin: 06/22/17 09:03 Dose: Not Given Atorvastatin Calcium (Lipitor*) 20 mg PO BEDTIME [facility] Last Admin: 06/21/17 22:00 Dose: Not Given Carvedilol (Coreg Tab*) 4.6875 mg PO BEDTIME [facility] Last Admin: 06/21/17 21:47 Dose: 4.6875 mg Carvedilol (Coreg Tab*) 1.5625 mg PO QAM [facility] Last Admin: 06/22/17 09:03 Dose: Not Given Dextrose (D50w Syringe 50 Ml*) 12.5 gm IV PUSH .FOR FS < 60 - SS PRN PRN Reason: FS < 60 Docusate Sodium (Colace Cap*) 100 mg PO BID [facility] Last Admin: 06/22/17 09:03 Dose: Not Given Enalapril Maleate (Vasotec Tab*) 10 mg PO DAILY@1200 [facility] Last Admin: 06/21/17 15:38 Dose: Not Given Gabapentin (Neurontin Cap(*)) 1,800 mg PO BEDTIME [facility] Last Admin: 06/21/17 23:15 Dose: Not Given Heparin Sodium (Porcine) (Heparin Vial(*)) 5,000 units SUBCUT Q8HR [facility] Last Admin: 06/22/17 06:01 Dose: 5,000 units Heparin Sodium (Porcine) (Heparin Flush Port (Ivad)) 5 ml FLUSH DAILY [facility] PRN Reason: Protocol Last Admin: 06/22/17 09:03 Dose: Not Given Hydromorphone HCl (Dilaudid Iv*) 0.5 mg IV SLOW PU Q3H PRN PRN Reason: PAIN Linezolid (Zyvox 600 Mg Ivpremix(*)) 600 mg in 300 mls @ 300 mls/hr IVPB Q12H [facility] Last Admin: 06/22/17 06:01 Dose: 300 mls/hr Dextrose/Sodium Chloride (D5ns 0.9% 1000 Ml Bag*) 1,000 mls @ 50 mls/hr IV PER RATE [facility] Last Admin: 06/21/17 16:31 Dose: 50 mls/hr Insulin Glargine (Lantus(*)) 15 units SUBCUT Q24H [facility] Last Admin: 06/21/17 17:45 Dose: 15 units Insulin Human Lispro (Humalog*) 0 units SUBCUT Q4H [facility] PRN Reason: Protocol Last Admin: 06/22/17 09:29 Dose: 3 units Lactobacillus Rhamnosus (Culturelle*) 1 cap PO DAILY [facility] Last Admin: 06/22/17 09:03 Dose: Not Given Metoclopramide HCl (Reglan Iv*) 5 mg IV AC [facility] Last Admin: 06/22/17 07:58 Dose: 5 mg Metoprolol Tartrate (Lopressor Iv*) 5 mg IV Q6H [facility] Last Admin: 06/22/17 09:12 Dose: 5 mg Mometasone Furoate/Formoterol Fumar (Dulera 100/5 Mdi*) 1 puff INH BID [facility] Last Admin: 06/22/17 08:54 Dose: Not Given Nitrofurantoin Macrocrystals (Macrodantin*) 100 mg PO BID [facility] Last Admin: 06/22/17 09:03 Dose: Not Given Evolocumab [Repatha (Sureclick] 140 Mg) 140 mg SC Q14D [facility] Nystatin (Nystatin Top Powder*) 1 applic TOPICAL TID [facility] Last Admin: 06/22/17 09:29 Dose: 1 applic Ondansetron HCl (Zofran Inj*) 4 mg IV Q6H PRN PRN Reason: NAUSEA Last Admin: 06/22/17 07:59 Dose: 4 mg Oxycodone/Acetaminophen (Percocet 5/325 Tab*) 1 tab PO ONCE PRN PRN Reason: PAIN - MODERATE Stop: 06/22/17 13:21 Last Admin: 06/21/17 17:43 Dose: 1 tab Polyethylene Glycol/Electrolytes (Miralax*) 17 gm PO DAILY PRN PRN Reason: CONSTIPATION Pramipexole Dihydrochloride (Mirapex Tab*) 0.5 mg PO BEDTIME [facility] Last Admin: 06/21/17 23:15 Dose: Not Given Spironolactone (Aldactone Tab*) 12.5 mg PO MOWEFR [facility] Last Admin: 06/21/17 16:31 Dose: 12.5 mg Ticagrelor (Brilinta*) 90 mg PO BID [facility] Last Admin: 06/22/17 09:03 Dose: Not Given Tiotropium Hutchins (Spiriva Cap.Inh*) 1 cap INH DAILY [facility] Last Admin: 06/22/17 08:54 Dose: Not Given Vital Signs 06/21/17 06/21/17 06/21/17 11:25 13:56 14:00 Temperature 98.5 F 96.8 F Pulse Rate 76 93 73 Respiratory 16 12 14 Rate Blood Pressure 170/96 131/69 131/68 (mmHg) O2 Sat by Pulse 98 95 99 Oximetry 06/21/17 06/21/17 06/21/17 14:05 14:10 14:15 Temperature Pulse Rate 72 73 76 Respiratory 14 14 16 Rate Blood Pressure 156/83 156/83 161/85 (mmHg) O2 Sat by Pulse 99 99 99 Oximetry 06/21/17 06/21/17 06/21/17 14:30 14:43 15:36 Temperature 97.3 F Pulse Rate 82 78 Respiratory 16 16 18 Rate Blood Pressure 174/94 180/90 (mmHg) O2 Sat by Pulse 98 97 Oximetry 06/21/17 06/21/17 06/21/17 15:40 16:00 16:36 Temperature 97.9 F Pulse Rate 82 Respiratory 18 16 Rate Blood Pressure 173/87 (mmHg) O2 Sat by Pulse 99 97 Oximetry 06/21/17 06/21/17 06/21/17 17:28 17:43 19:43 Temperature 98.1 F Pulse Rate 70 Respiratory 16 18 18 Rate Blood Pressure 150/78 (mmHg) O2 Sat by Pulse 97 Oximetry 06/21/17 06/21/17 06/21/17 20:00 20:21 21:56 Temperature 98.6 F Pulse Rate 66 Respiratory 16 16 18 Rate Blood Pressure 131/67 (mmHg) O2 Sat by Pulse 93 Oximetry 06/21/17 06/21/17 06/21/17 22:23 22:56 23:36 Temperature 98.1 F 98.6 F Pulse Rate 66 71 Respiratory 18 16 16 Rate Blood Pressure 136/66 129/64 (mmHg) O2 Sat by Pulse 93 98 Oximetry 06/22/17 06/22/17 06/22/17 00:00 01:48 02:48 Temperature Pulse Rate Respiratory 16 16 Rate Blood Pressure (mmHg) O2 Sat by Pulse 98 Oximetry 06/22/17 06/22/17 06/22/17 03:44 05:30 06:30 Temperature 98.1 F Pulse Rate 66 Respiratory 16 14 16 Rate Blood Pressure 129/66 (mmHg) O2 Sat by Pulse 98 Oximetry 06/22/17 07:27 Temperature 98.3 F Pulse Rate 66 Respiratory 16 Rate Blood Pressure 136/64 (mmHg) O2 Sat by Pulse 97 Oximetry Oxygen Devices in Use Now: None Appearance: 57 yo f in NAD, aAOx3 Eyes: No Scleral Icterus, PERRLA Ears/Nose/Mouth/Throat: NL Teeth, Lips, Gums, Mucous Membranes Moist Neck: NL Appearance and Movements; NL JVP, Trachea Midline Respiratory: Symmetrical Chest Expansion and Respiratory Effort, Clear to Auscultation Cardiovascular: NL Sounds; No Murmurs; No JVD, RRR Abdominal: NL Sounds; No Tenderness; No Distention Lymphatic: No Cervical Adenopathy Extremities: No Edema, No Clubbing, Cyanosis Skin: No Nodules or Sclerosis, - - left stum in post op dressing , no unwrapped Neurological: Alert and Oriented x 3, NL Muscle Strength and Tone Result Diagrams: 06/22/17 05:25 06/22/17 05:25 Additional Lab and Data: Lab Results 06/16/17 06/16/17 06/16/17 Range/Units 14:05 14:05 14:05 WBC (3.5-10.8) 10^3/ul RBC (4.0-5.4) 10^6/ul Hgb (12.0-16.0) g/dl Hct (35-47) % MCV (80-97) fL MCH (27-31) pg MCHC (31-36) g/dl RDW (10.5-15) % Plt Count (150-450) 10^3/ul MPV (7.4-10.4) um3 Neut % (Auto) (38-83) % Lymph % (Auto) (25-47) % Morris % (Auto) (1-9) % Eos % (Auto) (0-6) % Baso % (Auto) (0-2) % Absolute Neuts (auto) (1.5-7.7) 10^3/ul Absolute Lymphs (auto) (1.0-4.8) 10^3/ul Absolute Monos (auto) (0-0.8) 10^3/ul Absolute Eos (auto) (0-0.6) 10^3/ul Absolute Basos (auto) (0-0.2) 10^3/ul Absolute Nucleated RBC 10^3/ul Nucleated RBC % INR (Anticoag Therapy) 0.88 L (0.89-1.11) APTT 28.0 (26.0-36.3) seconds Sodium 124 L (133-145) mmol/L Potassium 5.0 (3.5-5.0) mmol/L Chloride 91 L (101-111) mmol/L Carbon Dioxide 26 (22-32) mmol/L Anion Gap 7 (2-11) mmol/L BUN 30 H (6-24) mg/dL Creatinine 1.34 H (0.51-0.95) mg/dL Est GFR ( Amer) 52.6 (>60) Est GFR (Non-Af Amer) 40.9 (>60) BUN/Creatinine Ratio 22.4 H (8-20) Glucose 685 H* (70-100) mg/dL Lactic Acid (0.5-2.0) mmol/L Calcium 9.0 (8.6-10.3) mg/dL Total Bilirubin 0.40 (0.2-1.0) mg/dL AST 10 L (13-39) U/L ALT 6 L (7-52) U/L Alkaline Phosphatase 184 H (34-104) U/L C-Reactive Protein 50.37 H (< 5.00) mg/L B-Natriuretic Peptide 866 H ( - 100) pg/mL Total Protein 6.5 (6.4-8.9) g/dL Albumin 2.8 L (3.2-5.2) g/dL Globulin 3.7 (2-4) g/dL Albumin/Globulin Ratio 0.8 L (1-3) Urine Color Urine Appearance Urine pH (5-9) Ur Specific Cushman (1.010-1.030) Urine Protein (Negative) Urine Ketones (Negative) Urine Blood (Negative) Urine Nitrate (Negative) Urine Bilirubin (Negative) Urine Urobilinogen (Negative) Ur Leukocyte Esterase (Negative) Urine WBC (Auto) (Absent) Urine RBC (Auto) (Absent) Ur Squamous Epith Cells (Absent) Urine Bacteria (Absent) Urine Glucose (Negative) 06/16/17 06/16/17 06/16/17 Range/Units 14:05 14:05 14:21 WBC 11.2 H (3.5-10.8) 10^3/ul RBC 3.11 L (4.0-5.4) 10^6/ul Hgb 9.2 L (12.0-16.0) g/dl Hct 28 L (35-47) % MCV 91 (80-97) fL MCH 30 (27-31) pg MCHC 32 (31-36) g/dl RDW 18 H (10.5-15) % Plt Count 207 (150-450) 10^3/ul MPV 10 (7.4-10.4) um3 Neut % (Auto) 83.5 H (38-83) % Lymph % (Auto) 10.2 L (25-47) % Morris % (Auto) 3.8 (1-9) % Eos % (Auto) 1.6 (0-6) % Baso % (Auto) 0.9 (0-2) % Absolute Neuts (auto) 9.4 H (1.5-7.7) 10^3/ul Absolute Lymphs (auto) 1.1 (1.0-4.8) 10^3/ul Absolute Monos (auto) 0.4 (0-0.8) 10^3/ul Absolute Eos (auto) 0.2 (0-0.6) 10^3/ul Absolute Basos (auto) 0.1 (0-0.2) 10^3/ul Absolute Nucleated RBC 0.01 10^3/ul Nucleated RBC % 0 INR (Anticoag Therapy) (0.89-1.11) APTT (26.0-36.3) seconds Sodium (133-145) mmol/L Potassium (3.5-5.0) mmol/L Chloride (101-111) mmol/L Carbon Dioxide (22-32) mmol/L Anion Gap (2-11) mmol/L BUN (6-24) mg/dL Creatinine (0.51-0.95) mg/dL Est GFR ( Amer) (>60) Est GFR (Non-Af Amer) (>60) BUN/Creatinine Ratio (8-20) Glucose (70-100) mg/dL Lactic Acid 2.1 H* (0.5-2.0) mmol/L Calcium (8.6-10.3) mg/dL Total Bilirubin (0.2-1.0) mg/dL AST (13-39) U/L ALT (7-52) U/L Alkaline Phosphatase (34-104) U/L C-Reactive Protein (< 5.00) mg/L B-Natriuretic Peptide ( - 100) pg/mL Total Protein (6.4-8.9) g/dL Albumin (3.2-5.2) g/dL Globulin (2-4) g/dL Albumin/Globulin Ratio (1-3) Urine Color Yellow Urine Appearance Clear Urine pH 6.0 (5-9) Ur Specific Cushman 1.024 (1.010-1.030) Urine Protein 2+(100 mg/dl) H (Negative) Urine Ketones Negative (Negative) Urine Blood 2+ H (Negative) Urine Nitrate Positive H (Negative) Urine Bilirubin Negative (Negative) Urine Urobilinogen Negative (Negative) Ur Leukocyte Esterase Trace H (Negative) Urine WBC (Auto) 2+(11-20/hpf) H (Absent) Urine RBC (Auto) 2+(6-10/hpf) H (Absent) Ur Squamous Epith Cells Present H (Absent) Urine Bacteria 1+ H (Absent) Urine Glucose 3+(>=500 mg/dl) H (Negative) Microbiology and Other Data: Microbiology 06/17/17 18:09 Aerobic Blood Culture - Preliminary Blood Venous No Growth Day 1 Anaerobic Blood Culture - Preliminary No Growth Day 1 Assess/Plan/Problems-Billing Assessment: Mrs. Galarza is a 57yo F with PMH of insulin dependent diabetes, CAD s/p CABG, PVD, CVA, chronic anemia, CKD stage 3, HTN, HLD, left subclavian stenosis s/p stent, left foot osteomyelitis s/p forefoot amputation, who presented to ED with chills found to have left heel abscess - Patient Problems (1) Abscess Comment: appreciate ID and ortho assistance cont IV linezolid s/p washing out of left heel abscess by Dr. Hess on 06/21/17 (2) Candidal intertrigo Comment: severe improved after tx with diflucan x 5 days (last dose on 06/21/17) cont nystatin (3) Uncontrolled type II diabetes mellitus Comment: low sugar due to no appetitie. Lantus insulin dose lowered on 06/19/17. cont D5NS (4) Hyponatremia Comment: pseudohyponatremia due to high sugar, resolved (5) CKD (chronic kidney disease) stage 3, GFR 30-59 ml/min Comment: - Creatinine near baseline due to DM2 (6) Peripheral vascular disease Comment: Pt had stenting to the L LE Cont ASA and brilinta (7) HTN (hypertension) Comment: cont ACEI and coreg started on lopressor IV on 06/21/17, sometimes pt is too nauseated to take PO (8) UTI (urinary tract infection) Comment: urine culture is growing E. coli resistant to fluoroquinolones, pt is allergic to other alternative antibiotics. cont nitrofurantoin x 5 days(last day 06/22/17) repeat UA pending (9) Nausea and vomiting Comment: Possible gastroparesis. Continue Reglan IV, prior to meals. cont gentle IVF (10) DVT prophylaxis Comment: - SQ heparin. Status and Disposition: inpatient
--- NOTE | 2017-06-22 11:59 | PN ---
Progress Note - Progress Note Date of Service: 06/22/17 SOAP: Subjective: [Pt was seen this am sitting up in bed. Pt complains of some mild pain in the leg. She denies any fevers, chills, ns, coughing or chest pain. ] Objective: [General: Pt is alert and oriented x3 LLE: LLE is dressed with JAIME wrap. It is c/d/i. She has had previous amputation as evidenced by lack of a foot. ] Vital Signs Temp 98.3 F 06/22/17 07:27 Pulse 66 06/22/17 07:27 Resp 16 06/22/17 07:27 BP 136/64 06/22/17 07:27 Pulse Ox 97 06/22/17 07:27 Intake & Output 06/21/17 06/22/17 06/22/17 18:59 06:59 18:59 Intake Total 1120 902 0 Output Total 300 Balance 820 902 0 Intake: IV Fluids 820 587 D5W NS (0.9%) 537 NS (0.9%) 20 50 lr 800 IVPB 300 315 ABX - LINEZOLID 300 315 Oral 0 0 0 Output: Urine 300 Other: Estimated Void Small # Bowel Movements 0 0 # Voids 1 1 Microbiology 06/21/17 13:12 Anaerobic Culture - Preliminary Wound - Left Leg No Growth Day 1 Gram Stain - Final Wound Culture - Preliminary No Growth Day 1 06/17/17 18:09 Aerobic Blood Culture - Preliminary Blood Venous No Growth Day 4 Anaerobic Blood Culture - Preliminary No Growth Day 4 Blood Culture - Final 06/16/17 14:05 Aerobic Blood Culture - Final Blood Venous No Growth Day 5 Anaerobic Blood Culture - Final No Growth Day 5 Blood Culture - Final 06/16/17 14:21 Urine Culture - Final Urine Escherichia Coli Assessment: [POD1 Biopsy of left calcaneus and debridement and drainage of abscess. ] Plan: [Pt will continue with current DVT prophylaxis Continue with Abx Continue with hospitalists management. Dressing change to occur tomorrow. ]
[2017-06-22] MEDS: Enalapril TAB* 5 MG PO SCH (13:18)
[2017-06-22] MEDS ORDERED: Bisacodyl SUPP* 10 MG SUPP PR ONE (15:47)
[2017-06-22] MEDS ORDERED: Sodium Phosphate ADULT ENEMA* 118 ml bottle PR PRN (15:49)
[2017-06-22] MEDS: Scopolamine 1.5 mg* PATCH TRANSDERM SCH (16:02)
--- NOTE | 2017-06-22 16:24 | PN ---
Progress Note - Progress Note Date of Service: 06/22/17 SOAP: Subjective: CC: nausea HPI: 57 year old woman here with right vulvar abscess, left heel ulcer, abscess on CT, had I&D. Ongoing nausea and vomiting, no abd pain, no BM or flatus in a few days. Vulvar swelling decreased. Objective: [] Vital Signs Temp 36.9 C 06/22/17 15:19 Pulse 69 06/22/17 15:19 Resp 18 06/22/17 15:19 BP 153/73 06/22/17 15:19 Pulse Ox 97 06/22/17 15:36 Intake & Output 06/21/17 06/22/17 06/22/17 18:59 06:59 18:59 Intake Total 1120 902 440 Output Total 300 Balance 820 902 440 Intake: IV Fluids 820 587 D5W NS (0.9%) 537 NS (0.9%) 20 50 lr 800 IVPB 300 315 ABX - LINEZOLID 300 315 Oral 0 0 440 Output: Urine 300 Other: Estimated Void Small Medium # Bowel Movements 0 0 # Voids 1 1 1 Gen:Awake, no distress HEENT:PERRL,MMM Neck:Supple Heart:RRR no murmur Lungs:CTA BL Abd:decr BS, soft, non tender Skin: no rash : R vulva decr erythema and edema MSK: L foot casted Microbiology 06/21/17 13:12 Anaerobic Culture - Preliminary Wound - Left Leg No Growth Day 1 Gram Stain - Final Wound Culture - Preliminary No Growth Day 1 06/17/17 18:09 Aerobic Blood Culture - Preliminary Blood Venous No Growth Day 4 Anaerobic Blood Culture - Preliminary No Growth Day 4 Blood Culture - Final 06/16/17 14:05 Aerobic Blood Culture - Final Blood Venous No Growth Day 5 Anaerobic Blood Culture - Final No Growth Day 5 Blood Culture - Final Assessment: 1. vulvar abscess, improving 2. R heel ulcer, abscess s/p I&D, culture neg while on zyvox 3. nausea, vomiting, could be due to constipation, early ileus 4. diabetes with neuropathy Plan: 1. continue linezolid 2. anti emetics, bowel regimen 35 minutes floor time >50% face to face counseling regarding treatment of her infections and coordinating care with Dr Pacheco
[2017-06-22] MEDS: Insulin GLARGINE(*) 1 UNITS UNIT SUBCUT SCH (18:42)
[2017-06-22] MEDS ORDERED: Magnesium Hydroxide LIQ* 30 ML UDC PO PRN (19:17)
[2017-06-22 19:27] LABS: Urine Bacteria 2+ (Absent); Urine Bilirubin Negative (Negative); Urine Glucose 3+(>=500 mg/dL) (Negative); Urine Nitrite Positive (Negative)
[2017-06-22] MEDS: Atorvastatin* 20 MG TAB PO SCH (19:38)
[2017-06-22] MEDS: Gabapentin CAP(*) 300 MG PO SCH (19:38)
[2017-06-22] MEDS: Pramipexole TAB* 0.5 MG PO SCH (19:39)
[2017-06-22] MEDS: D5NS 0.9% 1000 ML BAG* 1,000 ML IV SCH (21:29)
[2017-06-23] MEDS: Insulin LISPRO* 1 UNITS UNIT SUBCUT SCH ×6 (00:40→21:35)
[2017-06-23] MEDS: HYDROmorphone INJ* 1 MG/ML CARPUJECT SYRINGE IV SLOW PU PRN ×4 (03:02→19:41)
[2017-06-23] MEDS: Metoprolol Tartrate IV* 1 MG/ML 5 ML VIAL IV SCH ×4 (03:02→21:17)
[2017-06-23] MEDS: Ondansetron INJ* 2 MG/ML VIAL IV PRN ×3 (05:30→19:42)
[2017-06-23] MEDS: Linezolid 600 MG IVPREMIX(*) 600 MG/300 ML BAG IVPB SCH ×2 (05:32→18:02)
[2017-06-23] MEDS: Heparin VIAL(*) 5000 UNITS/ML VIAL (FIVE THOUSAND) SUBCUT SCH ×3 (05:35→21:22)
[2017-06-23] MEDS: Metoclopramide IV* 5 MG/ML 2 ML VIAL IV SCH ×4 (07:45→21:17)
[2017-06-23] MEDS: Aspirin EC Low Dose* 81 MG TAB.EC PO SCH (08:06)
[2017-06-23] MEDS: Carvedilol TAB* 3.125 MG PO SCH ×2 (08:06→19:45)
[2017-06-23] MEDS: Docusate CAP* 100 MG PO SCH ×2 (08:07→21:17)
[2017-06-23] MEDS: Nitrofurantoin Macrocrystals* 100 MG CAP PO SCH (08:07)
[2017-06-23] MEDS: Ticagrelor* 90 MG TAB PO SCH ×2 (08:07→19:45)
[2017-06-23] MEDS: Nystatin TOP POWDER* 15 GM BTL TOPICAL SCH ×3 (08:07→21:37)
[2017-06-23] MEDS: Lactobacillus Acidophilu (GG)* 1 CAP CAP PO SCH (08:07)
[2017-06-23] MEDS: Mometasone/Formoter 100/5 MDI INH SCH ×2 (08:17→19:45)
[2017-06-23] MEDS: Tiotropium CAP.INH* CAP.INH/18 MCG (USE ORDER SET !) INH SCH (08:18)
--- NOTE | 2017-06-23 10:17 | PN ---
Progress Note - Progress Note Date of Service: 06/23/17 SOAP: Subjective Pt was seen this am sitting up in bed. Pt complains of some mild pain in the leg. She denies any fevers, chills, ns, coughing or chest pain. ] Objective: [General: Pt is alert and oriented x3 LLE: LLE is dressed with JAIME wrap. Dressing was not changed today. It is c/d/i. She has had previous amputation as evidenced by lack of a foot. ] Vital Signs Temp 98.3 F 06/23/17 07:39 Pulse 70 06/23/17 07:39 Resp 18 06/23/17 08:41 BP 179/86 06/23/17 07:39 Pulse Ox 99 06/23/17 07:39 Intake & Output 06/22/17 06/23/17 06/23/17 18:59 06:59 18:59 Intake Total 1366 420 Balance 1366 420 Intake: IV Fluids 506 420 D5W NS (0.9%) 506 420 IVPB 310 ABX - LINEZOLID 310 Oral 550 Other: Estimated Void Medium # Voids 1 0 Assessment: [POD1 Biopsy of left calcaneus and debridement and drainage of abscess. ] Plan: [Pt will continue with current DVT prophylaxis Continue with Abx Continue with hospitalists management. ]
[2017-06-23] MEDS: oxyCODONE/Acetamin 5/325 MG* TAB PO PRN ×2 (11:29→18:10)
--- NOTE | 2017-06-23 12:20 | PN ---
Subjective Date of Service: 06/23/17 Interval History: Pt is eating apple sauce and crackers. Denies abd pain. Pain in foot at 7/10 Had been refusing laxatives and definitely will not use anything that is ordered [place]. Objective Active Medications: Acetaminophen (Tylenol Tab*) 650 mg PO Q4H PRN PRN Reason: FEVER/PAIN Albuterol (Ventolin 2.5 Mg/3 Ml Neb.Roxy*) 2.5 mg INH Q2H PRN PRN Reason: SOB/WHEEZING Aspirin (Aspirin Ec Low Dose*) 81 mg PO DAILY [facility] Last Admin: 06/23/17 08:06 Dose: Not Given Atorvastatin Calcium (Lipitor*) 20 mg PO BEDTIME [facility] Last Admin: 06/22/17 19:38 Dose: Not Given Carvedilol (Coreg Tab*) 4.6875 mg PO BEDTIME [facility] Last Admin: 06/22/17 21:22 Dose: Not Given Carvedilol (Coreg Tab*) 1.5625 mg PO QAM [facility] Last Admin: 06/23/17 08:06 Dose: Not Given Dextrose (D50w Syringe 50 Ml*) 12.5 gm IV PUSH .FOR FS < 60 - SS PRN PRN Reason: FS < 60 Docusate Sodium (Colace Cap*) 100 mg PO BID [facility] Last Admin: 06/23/17 08:07 Dose: Not Given Enalapril Maleate (Vasotec Tab*) 10 mg PO DAILY@1200 [facility] Last Admin: 06/22/17 13:18 Dose: Not Given Gabapentin (Neurontin Cap(*)) 1,800 mg PO BEDTIME [facility] Last Admin: 06/22/17 19:38 Dose: Not Given Heparin Sodium (Porcine) (Heparin Vial(*)) 5,000 units SUBCUT Q8HR [facility] Last Admin: 06/23/17 05:35 Dose: 5,000 units Heparin Sodium (Porcine) (Heparin Flush Port (Ivad)) 5 ml FLUSH DAILY [facility] PRN Reason: Protocol Last Admin: 06/23/17 08:07 Dose: Not Given Hydromorphone HCl (Dilaudid Iv*) 0.5 mg IV SLOW PU Q3H PRN PRN Reason: PAIN Last Admin: 06/23/17 07:41 Dose: 0.5 mg Linezolid (Zyvox 600 Mg Ivpremix(*)) 600 mg in 300 mls @ 300 mls/hr IVPB Q12H [facility] Last Admin: 06/23/17 05:32 Dose: 300 mls/hr Insulin Glargine (Lantus(*)) 20 units SUBCUT Q24H [facility] Insulin Human Lispro (Humalog*) 0 units SUBCUT Q4H [place] PRN Reason: Protocol Last Admin: 06/23/17 09:56 Dose: 9 units Lactobacillus Rhamnosus (Culturelle*) 1 cap PO DAILY [facility] Last Admin: 06/23/17 08:07 Dose: Not Given Magnesium Hydroxide (Milk Of Magnhattie Liq*) 30 ml PO Q4H PRN PRN Reason: CONSTIPATION Metoclopramide HCl (Reglan Iv*) 5 mg IV ACHS [facility] Last Admin: 06/23/17 11:30 Dose: 5 mg Metoprolol Tartrate (Lopressor Iv*) 5 mg IV Q6H [facility] Last Admin: 06/23/17 08:04 Dose: 5 mg Mometasone Furoate/Formoterol Fumar (Dulera 100/5 Mdi*) 1 puff INH BID [facility] Last Admin: 06/23/17 08:17 Dose: Not Given Nitrofurantoin Macrocrystals (Macrodantin*) 100 mg PO BID [facility] Last Admin: 06/23/17 08:07 Dose: Not Given Evolocumab [Repatha (Sureclick] 140 Mg) 140 mg SC Q14D [facility] Nystatin (Nystatin Top Powder*) 1 applic TOPICAL TID [facility] Last Admin: 06/23/17 08:07 Dose: 1 applic Ondansetron HCl (Zofran Inj*) 4 mg IV Q6H PRN PRN Reason: NAUSEA Last Admin: 06/23/17 05:30 Dose: 4 mg Oxycodone/Acetaminophen (Percocet 5/325 Tab*) 2 tab PO Q4H PRN PRN Reason: PAIN Last Admin: 06/23/17 11:29 Dose: 2 tab Polyethylene Glycol/Electrolytes (Miralax*) 17 gm PO DAILY PRN PRN Reason: CONSTIPATION Pramipexole Dihydrochloride (Mirapex Tab*) 0.5 mg PO BEDTIME [facility] Last Admin: 06/22/17 19:39 Dose: Not Given Scopolamine (Transderm-Scop 1.5 Mg Patch*) 1 patch TRANSDERM Q72H [facility] Last Admin: 06/22/17 16:02 Dose: 1 patch Sodium Biphosphate/Sodium Phosphate (Fleet Enema*) 1 bottle [place] DAILY PRN PRN Reason: CONSTIPATION Spironolactone (Aldactone Tab*) 12.5 mg PO MOWEFR [facility] Last Admin: 06/21/17 16:31 Dose: 12.5 mg Ticagrelor (Brilinta*) 90 mg PO BID [facility] Last Admin: 06/23/17 08:07 Dose: Not Given Tiotropium Lambert (Spiriva Cap.Inh*) 1 cap INH DAILY [facility] Last Admin: 06/23/17 08:18 Dose: Not Given Vital Signs 06/22/17 06/22/17 06/22/17 12:45 14:07 15:07 Temperature Pulse Rate 70 Respiratory 16 16 Rate Blood Pressure 148/77 (mmHg) O2 Sat by Pulse Oximetry 06/22/17 06/22/17 06/22/17 15:19 15:36 18:26 Temperature 98.4 F Pulse Rate 69 Respiratory 18 16 Rate Blood Pressure 153/73 (mmHg) O2 Sat by Pulse 97 97 Oximetry 06/22/17 06/22/17 06/22/17 19:26 19:38 20:00 Temperature 98.8 F Pulse Rate 76 Respiratory 16 16 16 Rate Blood Pressure 140/67 (mmHg) O2 Sat by Pulse 97 Oximetry 06/22/17 06/22/17 06/22/17 21:15 22:15 23:19 Temperature 97.5 F Pulse Rate 70 Respiratory 17 16 16 Rate Blood Pressure 156/79 (mmHg) O2 Sat by Pulse 100 Oximetry 06/23/17 06/23/17 06/23/17 03:02 03:04 04:02 Temperature Pulse Rate 65 Respiratory 17 16 15 Rate Blood Pressure 170/78 (mmHg) O2 Sat by Pulse Oximetry 06/23/17 06/23/17 06/23/17 07:39 07:41 08:00 Temperature 98.3 F Pulse Rate 70 Respiratory 16 18 18 Rate Blood Pressure 179/86 (mmHg) O2 Sat by Pulse 99 Oximetry 06/23/17 06/23/17 08:41 11:29 Temperature Pulse Rate Respiratory 18 18 Rate Blood Pressure (mmHg) O2 Sat by Pulse Oximetry Oxygen Devices in Use Now: None Appearance: 57 yo F in NAD, aAOx3 Eyes: No Scleral Icterus, PERRLA Ears/Nose/Mouth/Throat: NL Teeth, Lips, Gums, Mucous Membranes Moist Neck: NL Appearance and Movements; NL JVP, Trachea Midline Respiratory: Symmetrical Chest Expansion and Respiratory Effort Cardiovascular: NL Sounds; No Murmurs; No JVD, RRR Abdominal: NL Sounds; No Tenderness; No Distention Extremities: No Edema, No Clubbing, Cyanosis Skin: No Nodules or Sclerosis, - - left foot stump-dressing not taken off. Carmen intertrigo improved greatly Neurological: Alert and Oriented x 3, NL Muscle Strength and Tone Result Diagrams: 06/22/17 05:25 06/22/17 05:25 Additional Lab and Data: Lab Results 06/16/17 06/16/17 06/16/17 Range/Units 14:05 14:05 14:05 WBC (3.5-10.8) 10^3/ul RBC (4.0-5.4) 10^6/ul Hgb (12.0-16.0) g/dl Hct (35-47) % MCV (80-97) fL MCH (27-31) pg MCHC (31-36) g/dl RDW (10.5-15) % Plt Count (150-450) 10^3/ul MPV (7.4-10.4) um3 Neut % (Auto) (38-83) % Lymph % (Auto) (25-47) % [place] % (Auto) (1-9) % Eos % (Auto) (0-6) % Baso % (Auto) (0-2) % Absolute Neuts (auto) (1.5-7.7) 10^3/ul Absolute Lymphs (auto) (1.0-4.8) 10^3/ul Absolute Monos (auto) (0-0.8) 10^3/ul Absolute Eos (auto) (0-0.6) 10^3/ul Absolute Basos (auto) (0-0.2) 10^3/ul Absolute Nucleated RBC 10^3/ul Nucleated RBC % INR (Anticoag Therapy) 0.88 L (0.89-1.11) APTT 28.0 (26.0-36.3) seconds Sodium 124 L (133-145) mmol/L Potassium 5.0 (3.5-5.0) mmol/L Chloride 91 L (101-111) mmol/L Carbon Dioxide 26 (22-32) mmol/L Anion Gap 7 (2-11) mmol/L BUN 30 H (6-24) mg/dL Creatinine 1.34 H (0.51-0.95) mg/dL Est GFR ( Amer) 52.6 (>60) Est GFR (Non-Af Amer) 40.9 (>60) BUN/Creatinine Ratio 22.4 H (8-20) Glucose 685 H* (70-100) mg/dL Lactic Acid (0.5-2.0) mmol/L Calcium 9.0 (8.6-10.3) mg/dL Total Bilirubin 0.40 (0.2-1.0) mg/dL AST 10 L (13-39) U/L ALT 6 L (7-52) U/L Alkaline Phosphatase 184 H (34-104) U/L C-Reactive Protein 50.37 H (< 5.00) mg/L B-Natriuretic Peptide 866 H ( - 100) pg/mL Total Protein 6.5 (6.4-8.9) g/dL Albumin 2.8 L (3.2-5.2) g/dL Globulin 3.7 (2-4) g/dL Albumin/Globulin Ratio 0.8 L (1-3) Urine Color Urine Appearance Urine pH (5-9) Ur Specific [place] (1.010-1.030) Urine Protein (Negative) Urine Ketones (Negative) Urine Blood (Negative) Urine Nitrate (Negative) Urine Bilirubin (Negative) Urine Urobilinogen (Negative) Ur Leukocyte Esterase (Negative) Urine WBC (Auto) (Absent) Urine RBC (Auto) (Absent) Ur Squamous Epith Cells (Absent) Urine Bacteria (Absent) Urine Glucose (Negative) 06/16/17 06/16/17 06/16/17 Range/Units 14:05 14:05 14:21 WBC 11.2 H (3.5-10.8) 10^3/ul RBC 3.11 L (4.0-5.4) 10^6/ul Hgb 9.2 L (12.0-16.0) g/dl Hct 28 L (35-47) % MCV 91 (80-97) fL MCH 30 (27-31) pg MCHC 32 (31-36) g/dl RDW 18 H (10.5-15) % Plt Count 207 (150-450) 10^3/ul MPV 10 (7.4-10.4) um3 Neut % (Auto) 83.5 H (38-83) % Lymph % (Auto) 10.2 L (25-47) % [place] % (Auto) 3.8 (1-9) % Eos % (Auto) 1.6 (0-6) % Baso % (Auto) 0.9 (0-2) % Absolute Neuts (auto) 9.4 H (1.5-7.7) 10^3/ul Absolute Lymphs (auto) 1.1 (1.0-4.8) 10^3/ul Absolute Monos (auto) 0.4 (0-0.8) 10^3/ul Absolute Eos (auto) 0.2 (0-0.6) 10^3/ul Absolute Basos (auto) 0.1 (0-0.2) 10^3/ul Absolute Nucleated RBC 0.01 10^3/ul Nucleated RBC % 0 INR (Anticoag Therapy) (0.89-1.11) APTT (26.0-36.3) seconds Sodium (133-145) mmol/L Potassium (3.5-5.0) mmol/L Chloride (101-111) mmol/L Carbon Dioxide (22-32) mmol/L Anion Gap (2-11) mmol/L BUN (6-24) mg/dL Creatinine (0.51-0.95) mg/dL Est GFR ( Amer) (>60) Est GFR (Non-Af Amer) (>60) BUN/Creatinine Ratio (8-20) Glucose (70-100) mg/dL Lactic Acid 2.1 H* (0.5-2.0) mmol/L Calcium (8.6-10.3) mg/dL Total Bilirubin (0.2-1.0) mg/dL AST (13-39) U/L ALT (7-52) U/L Alkaline Phosphatase (34-104) U/L C-Reactive Protein (< 5.00) mg/L B-Natriuretic Peptide ( - 100) pg/mL Total Protein (6.4-8.9) g/dL Albumin (3.2-5.2) g/dL Globulin (2-4) g/dL Albumin/Globulin Ratio (1-3) Urine Color Yellow Urine Appearance Clear Urine pH 6.0 (5-9) Ur Specific [place] 1.024 (1.010-1.030) Urine Protein 2+(100 mg/dl) H (Negative) Urine Ketones Negative (Negative) Urine Blood 2+ H (Negative) Urine Nitrate Positive H (Negative) Urine Bilirubin Negative (Negative) Urine Urobilinogen Negative (Negative) Ur Leukocyte Esterase Trace H (Negative) Urine WBC (Auto) 2+(11-20/hpf) H (Absent) Urine RBC (Auto) 2+(6-10/hpf) H (Absent) Ur Squamous Epith Cells Present H (Absent) Urine Bacteria 1+ H (Absent) Urine Glucose 3+(>=500 mg/dl) H (Negative) Microbiology and Other Data: Microbiology 06/17/17 18:09 Aerobic Blood Culture - Preliminary Blood Venous No Growth Day 1 Anaerobic Blood Culture - Preliminary No Growth Day 1 Assess/Plan/Problems-Billing Assessment: Mrs. Galarza is a 57yo F with PMH of insulin dependent diabetes, CAD s/p CABG, PVD, CVA, chronic anemia, CKD stage 3, HTN, HLD, left subclavian stenosis s/p stent, left foot osteomyelitis s/p forefoot amputation, who presented to ED with chills found to have left heel abscess - Patient Problems (1) Abscess Comment: appreciate ID and ortho assistance cont IV linezolid s/p washing out of left heel abscess by Dr. Hess on 06/21/17 (2) Candidal intertrigo Comment: severe improved after tx with diflucan x 5 days (last dose on 06/21/17) cont nystatin (3) Uncontrolled type II diabetes mellitus Comment: Lantus insulin dose lowered on 06/19/17. today sugars>300, will d/c D5NS and increase insulin (4) Hyponatremia Comment: pseudohyponatremia due to high sugar, resolved (5) CKD (chronic kidney disease) stage 3, GFR 30-59 ml/min Comment: - Creatinine near baseline due to DM2 (6) Peripheral vascular disease Comment: Pt had stenting to the L LE Cont ASA and brilinta (7) HTN (hypertension) Comment: cont ACEI and coreg started on lopressor IV on 06/21/17, sometimes pt is too nauseated to take PO (8) UTI (urinary tract infection) Comment: urine culture is growing E. coli resistant to fluoroquinolones, pt is allergic to most of other alternative antibiotics. Had not been taking nitrofurantloin due to nausea. cont to monitor, asymptomatic, repeat cx pending (9) Nausea and vomiting Comment: Possible gastroparesis. Continue Reglan IV, prior to meals. concerning no BM x [address] abd. (10) DVT prophylaxis Comment: - SQ heparin. Status and Disposition: inpatient
[2017-06-23] MEDS: Enalapril TAB* 5 MG PO SCH (13:04)
--- NOTE | 2017-06-23 14:17 | RAD ---
INDICATION: Constipation. COMPARISON: CT April 25, 2017 TECHNIQUE: Axial source images were obtained from the hemidiaphragms to the symphysis pubis following administration of oral contrast only as requested by the ordering clinician. Coronal and sagittal reconstructed images were acquired. Lung bases: There are moderate to large bilateral pleural effusions with basilar consolidative change which may represent compression atelectasis. The heart is enlarged. There is prior sternotomy. There is a cardiac pacemaker/defibrillator Liver: The noncontrast CT appearance of the liver is unremarkable. Gallbladder: Cholecystectomy. Spleen: Noncontrast CT appearance the spleen is normal. Pancreas: There is no pancreatic mass or ductal dilatation identified on noncontrast imaging. Adrenal glands: There is no evidence of adrenal mass. Kidneys: No hydronephrosis or calculi are seen. There are no masses on noncontrast evaluation. Adenopathy: There is no evidence of adenopathy by size criteria. Fluid collections: There are no free or localized fluid collections. Vessels:There are atherosclerotic changes involving the aorta and iliac vessels. There is no focal aneurysm. The IVC appears normal. GI tract: There does not appear to be in the oral contrast limiting evaluation GI tract. The noncontrast CT appearance the upper GI tract is unremarkable. There is moderate stool in the right colon. There are no findings to suggest obstruction. Pelvic organs: There is hysterectomy. There is no adnexal mass Bladder: There are no bladder masses. There is air within the bladder. This requires correlation with history of instrumentation bases may be related to Mckeon catheter insertion Abdominal and pelvic soft tissues: The extraperitoneal abdominal and pelvic soft tissues appear normal.. Osseous structures: There is L3-S1 fusion. There are no acute osseous findings.. Other: None IMPRESSION: A LIMITED EXAMINATION PERFORMED WITHOUT ORAL OR INTRAVENOUS CONTRAST SHOWS NO ACUTE RADIOLOGIC FINDINGS. THERE ARE NO FINDINGS OF OBSTRUCTION. THERE IS MODERATE STOOL IN THE RIGHT COLON. THERE IS AIR WITHIN THE BLADDER WHICH MAY BE IATROGENIC.
[2017-06-23] MEDS: Spironolactone TAB* 25 MG PO SCH (18:03)
[2017-06-23] MEDS: Insulin GLARGINE(*) 1 UNITS UNIT SUBCUT SCH (18:07)
[2017-06-23] MEDS: Atorvastatin* 20 MG TAB PO SCH (19:44)
[2017-06-23] MEDS: Pramipexole TAB* 0.5 MG PO SCH (19:45)
[2017-06-23] MEDS: Gabapentin CAP(*) 300 MG PO SCH (19:45)
[2017-06-24] MEDS: oxyCODONE/Acetamin 5/325 MG* TAB PO PRN ×2 (00:28→09:06)
[2017-06-24] MEDS: Insulin LISPRO* 1 UNITS UNIT SUBCUT SCH ×6 (00:35→21:32)
[2017-06-24] MEDS: HYDROmorphone INJ* 1 MG/ML CARPUJECT SYRINGE IV SLOW PU PRN ×3 (00:41→19:41)
[2017-06-24] MEDS: Metoprolol Tartrate IV* 1 MG/ML 5 ML VIAL IV SCH ×4 (02:58→20:55)
[2017-06-24] MEDS: Ondansetron INJ* 2 MG/ML VIAL IV PRN ×4 (02:58→22:03)
[2017-06-24] MEDS: Heparin VIAL(*) 5000 UNITS/ML VIAL (FIVE THOUSAND) SUBCUT SCH ×3 (05:30→21:31)
[2017-06-24] MEDS: Linezolid 600 MG IVPREMIX(*) 600 MG/300 ML BAG IVPB SCH ×2 (05:52→19:52)
[2017-06-24 06:40] LABS: Hematocrit 26 % (35-47); Hemoglobin 8.2 g/dl (12.0-16.0); Mean Corpuscular HGB Conc 32 g/dl (31-36); Mean Corpuscular Hemoglobin 29 pg (27-31); Mean Corpuscular Volume 91 fL (80-97); Mean Platelet Volume 8 um3 (7.4-10.4); Red Blood Count 2.82 10^6/ul (4.0-5.4); Red Cell Distribution Width 18 % (10.5-15); White Blood Count 8.8 10^3/ul (3.5-10.8)
[2017-06-24 06:42] LABS: BUN/Creatinine Ratio 19.2 (8-20); C Reactive Protein 60.36 mg/L (< 5.00); Calcium 8.8 mg/dL (8.6-10.3); EGFR Non-African American 44.3 (>60); Potassium 5.4 mmol/L (3.5-5.0)
[2017-06-24] MEDS: Mometasone/Formoter 100/5 MDI INH SCH ×2 (08:05→19:27)
[2017-06-24] MEDS: Tiotropium CAP.INH* CAP.INH/18 MCG (USE ORDER SET !) INH SCH (08:05)
[2017-06-24] MEDS: Metoclopramide IV* 5 MG/ML 2 ML VIAL IV SCH ×4 (08:15→20:55)
--- NOTE | 2017-06-24 08:46 | PN ---
Progress Note - Progress Note Date of Service: 06/24/17 SOAP: Subjective: CC: nausea HPI: 57 year old woman here with right vulvar abscess, left heel ulcer, abscess on CT, had I&D. Ongoing nausea and vomiting, no abd pain, no BM or flatus in a few days. Vulvar swelling and pain continue to improve. Objective: [] Vital Signs Temp 36.4 C 06/24/17 03:11 Pulse 72 06/24/17 03:12 Resp 18 06/24/17 05:32 BP 155/75 06/24/17 03:11 Pulse Ox 99 06/24/17 03:11 Intake & Output 06/23/17 06/24/17 06/24/17 18:59 06:59 18:59 Intake Total 1192 440 Output Total 250 0 Balance 942 440 Intake: IV Fluids 312 D5W NS (0.9%) 312 Oral 880 440 Output: Urine 250 0 Mckeon 0 Other: Estimated Void Medium # Bowel Movements 0 # Voids 1 0 Gen:Awake, no distress HEENT:PERRL,MMM Neck:Supple Heart:RRR no murmur Lungs:CTA BL Abd:decr BS, soft, non tender, mildly distended Skin: no rash : R vulva decr erythema and edema MSK: L foot casted Laboratory Results - last 24 hr 06/23/17 06/23/17 06/23/17 11:29 13:03 16:54 WBC RBC Hgb Hct MCV MCH MCHC RDW Plt Count MPV Neut % (Auto) Lymph % (Auto) [place] % (Auto) Eos % (Auto) Baso % (Auto) Absolute Neuts (auto) Absolute Lymphs (auto) Absolute Monos (auto) Absolute Eos (auto) Absolute Basos (auto) Absolute Nucleated RBC Nucleated RBC % Sodium Potassium Chloride Carbon Dioxide Anion Gap BUN Creatinine Est GFR ( Amer) Est GFR (Non-Af Amer) BUN/Creatinine Ratio Glucose POC Glucose (mg/dL) 309 H 300 H 178 H Calcium C-Reactive Protein 06/23/17 06/24/17 06/24/17 21:21 00:30 05:29 WBC RBC Hgb Hct MCV MCH MCHC RDW Plt Count MPV Neut % (Auto) Lymph % (Auto) [place] % (Auto) Eos % (Auto) Baso % (Auto) Absolute Neuts (auto) Absolute Lymphs (auto) Absolute Monos (auto) Absolute Eos (auto) Absolute Basos (auto) Absolute Nucleated RBC Nucleated RBC % Sodium Potassium Chloride Carbon Dioxide Anion Gap BUN Creatinine Est GFR ( Amer) Est GFR (Non-Af Amer) BUN/Creatinine Ratio Glucose POC Glucose (mg/dL) 183 H 149 H 148 H Calcium C-Reactive Protein 06/24/17 06/24/17 05:55 05:55 WBC 8.8 RBC 2.82 L Hgb 8.2 L Hct 26 L MCV 91 MCH 29 MCHC 32 RDW 18 H Plt Count 305 MPV 8 Neut % (Auto) 79.6 Lymph % (Auto) 13.2 L [place] % (Auto) 5.1 Eos % (Auto) 1.6 Baso % (Auto) 0.5 Absolute Neuts (auto) 7.0 Absolute Lymphs (auto) 1.2 Absolute Monos (auto) 0.4 Absolute Eos (auto) 0.1 Absolute Basos (auto) 0 Absolute Nucleated RBC 0.01 Nucleated RBC % 0.1 Sodium 128 L Potassium 5.4 H Chloride 100 L Carbon Dioxide 27 Anion Gap 1 L BUN 24 Creatinine 1.25 H Est GFR ( Amer) 57.0 Est GFR (Non-Af Amer) 44.3 BUN/Creatinine Ratio 19.2 Glucose 164 H POC Glucose (mg/dL) Calcium 8.8 C-Reactive Protein 60.[address] AP: stool in colon Assessment: 1. vulvar abscess, improving 2. R heel ulcer, abscess s/p I&D, culture neg while on zyvox 3. nausea, vomiting, more distended, suspect due to constipation 4. diabetes with neuropathy 5. elev CRP ?foot infection or cystitis 6. E.coli bacteruria, could be contributing nausea and elev CRP Plan: 1. continue linezolid 2. anti emetics, bowel regimen, she agrees to enema 3. meropenem 1 gm IV Q12hrs 35 minutes floor time >50% face to face counseling regarding treatment of cystitis and constipation and coordinating care with Dr Pacheco
[2017-06-24] MEDS: Lactobacillus Acidophilu (GG)* 1 CAP CAP PO SCH (09:16)
[2017-06-24] MEDS: Docusate CAP* 100 MG PO SCH ×2 (09:17→21:33)
[2017-06-24] MEDS: Carvedilol TAB* 3.125 MG PO SCH ×2 (09:17→20:41)
[2017-06-24] MEDS: Aspirin EC Low Dose* 81 MG TAB.EC PO SCH (09:17)
[2017-06-24] MEDS: Ticagrelor* 90 MG TAB PO SCH ×2 (09:17→20:42)
[2017-06-24] MEDS: Nystatin TOP POWDER* 15 GM BTL TOPICAL SCH ×3 (09:23→20:55)
[2017-06-24] MEDS ORDERED: Sodium Phosphate ADULT ENEMA* 118 ml bottle PR ONE (09:25)
[2017-06-24] MEDS: Meropenem 500MG PREMIX(*) 500 MG/50 ML BAG IV SCH ×2 (11:00→18:23)
--- NOTE | 2017-06-24 11:05 | PN ---
Progress Note - Progress Note Date of Service: 06/24/17 SOAP: Subjective: resting comfortably with minimal pain Objective: Vital Signs Temp Pulse Resp BP Pulse Ox 98.2 F 65 16 160/78 95 06/24/17 08:02 06/24/17 08:02 06/24/17 09:06 06/24/17 08:02 06/24/17 08:02 Laboratory Last Values WBC 8.8 10^3/ul (3.5-10.8) 06/24/17 05:55 RBC 2.82 10^6/ul (4.0-5.4) L 06/24/17 05:55 Hgb 8.2 g/dl (12.0-16.0) L 06/24/17 05:55 Hct 26 % (35-47) L 06/24/17 05:55 MCV 91 fL (80-97) 06/24/17 05:55 MCH 29 pg (27-31) 06/24/17 05:55 MCHC 32 g/dl (31-36) 06/24/17 05:55 RDW 18 % (10.5-15) H 06/24/17 05:55 Plt Count 305 10^3/ul (150-450) 06/24/17 05:55 MPV 8 um3 (7.4-10.4) 06/24/17 05:55 Neut % (Auto) 79.6 % (38-83) 06/24/17 05:55 Lymph % (Auto) 13.2 % (25-47) L 06/24/17 05:55 [place] % (Auto) 5.1 % (1-9) 06/24/17 05:55 Eos % (Auto) 1.6 % (0-6) 06/24/17 05:55 Baso % (Auto) 0.5 % (0-2) 06/24/17 05:55 Absolute Neuts (auto) 7.0 10^3/ul (1.5-7.7) 06/24/17 05:55 Absolute Lymphs (auto) 1.2 10^3/ul (1.0-4.8) 06/24/17 05:55 Absolute Monos (auto) 0.4 10^3/ul (0-0.8) 06/24/17 05:55 Absolute Eos (auto) 0.1 10^3/ul (0-0.6) 06/24/17 05:55 Absolute Basos (auto) 0 10^3/ul (0-0.2) 06/24/17 05:55 Absolute Nucleated RBC 0.01 10^3/ul 06/24/17 05:55 Nucleated RBC % 0.1 06/24/17 05:55 INR (Anticoag Therapy) 0.89 (0.89-1.11) 06/17/17 04:45 APTT 28.0 seconds (26.0-36.3) 06/16/17 14:05 Sodium 128 mmol/L (133-145) L 06/24/17 05:55 Potassium 5.4 mmol/L (3.5-5.0) H 06/24/17 05:55 Chloride 100 mmol/L (101-111) L 06/24/17 05:55 Carbon Dioxide 27 mmol/L (22-32) 06/24/17 05:55 Anion Gap 1 mmol/L (2-11) L 06/24/17 05:55 BUN 24 mg/dL (6-24) 06/24/17 05:55 Creatinine 1.25 mg/dL (0.51-0.95) H 06/24/17 05:55 Est GFR ( Amer) 57.0 (>60) 06/24/17 05:55 Est GFR (Non-Af Amer) 44.3 (>60) 06/24/17 05:55 BUN/Creatinine Ratio 19.2 (8-20) 06/24/17 05:55 Glucose 164 mg/dL (70-100) H 06/24/17 05:55 POC Glucose (mg/dL) 159 mg/dL (70-100) H 06/24/17 09:08 Lactic Acid 2.1 mmol/L (0.5-2.0) H* 06/16/17 14:05 Calcium 8.8 mg/dL (8.6-10.3) 06/24/17 05:55 Total Bilirubin 0.40 mg/dL (0.2-1.0) 06/16/17 14:05 AST 10 U/L (13-39) L 06/16/17 14:05 ALT 6 U/L (7-52) L 06/16/17 14:05 Alkaline Phosphatase 184 U/L (34-104) H 06/16/17 14:05 C-Reactive Protein 60.36 mg/L (< 5.00) H 06/24/17 05:55 B-Natriuretic Peptide 866 pg/mL (-100) H 06/16/17 14:05 Total Protein 6.5 g/dL (6.4-8.9) 06/16/17 14:05 Albumin 2.8 g/dL (3.2-5.2) L 06/16/17 14:05 Globulin 3.7 g/dL (2-4) 06/16/17 14:05 Albumin/Globulin Ratio 0.8 (1-3) L 06/16/17 14:05 Urine Color Yellow 06/22/17 18:44 Urine Appearance Cloudy 06/22/17 18:44 Urine pH 5.0 (5-9) 06/22/17 18:44 Ur Specific [place] 1.022 (1.010-1.030) 06/22/17 18:44 Urine Protein 3+(>=500 mg/dl) (Negative) H 06/22/17 18:44 Urine Ketones Negative (Negative) 06/22/17 18:44 Urine Blood 1+ (Negative) H 06/22/17 18:44 Urine Nitrate Positive (Negative) H 06/22/17 18:44 Urine Bilirubin Negative (Negative) 06/22/17 18:44 Urine Urobilinogen Negative (Negative) 06/22/17 18:44 Ur Leukocyte Esterase 2+ (Negative) H 06/22/17 18:44 Urine WBC (Auto) 3+(>20/hpf) (Absent) H 06/22/17 18:44 Urine RBC (Auto) 3+(>10/hpf) (Absent) H 06/22/17 18:44 Ur Squamous Epith Cells Present (Absent) H 06/22/17 18:44 Ur Transition Epith Cell Present (Absent) H 06/22/17 18:44 Urine Bacteria 2+ (Absent) H 06/22/17 18:44 Hyaline Casts Present (Absent) H 06/22/17 18:44 Urine Glucose 3+(>=500 mg/dl) (Negative) H 06/22/17 18:44 c/d; splint intact PE: NVI Assessment: POD #2 biopsy left calcaneous and debridment and drainage of abscess Plan: 1) Heparin/ASA for DVT prophylaxis 2) Hospitalist co-managing 3) Abx per ID
[2017-06-24] MEDS: Enalapril TAB* 5 MG PO SCH (11:57)
--- NOTE | 2017-06-24 12:15 | PN ---
Subjective Date of Service: 06/24/17 Interval History: still nauseated, denies abd pain, agreed to enema Objective Active Medications: Acetaminophen (Tylenol Tab*) 650 mg PO Q4H PRN PRN Reason: FEVER/PAIN Albuterol (Ventolin 2.5 Mg/3 Ml Neb.Roxy*) 2.5 mg INH Q2H PRN PRN Reason: SOB/WHEEZING Aspirin (Aspirin Ec Low Dose*) 81 mg PO DAILY [facility] Last Admin: 06/24/17 09:17 Dose: Not Given Atorvastatin Calcium (Lipitor*) 20 mg PO BEDTIME [facility] Last Admin: 06/23/17 19:44 Dose: Not Given Carvedilol (Coreg Tab*) 4.6875 mg PO BEDTIME [facility] Last Admin: 06/23/17 19:45 Dose: Not Given Carvedilol (Coreg Tab*) 1.5625 mg PO QAM [facility] Last Admin: 06/24/17 09:17 Dose: Not Given Dextrose (D50w Syringe 50 Ml*) 12.5 gm IV PUSH .FOR FS < 60 - SS PRN PRN Reason: FS < 60 Docusate Sodium (Colace Cap*) 100 mg PO BID [facility] Last Admin: 06/24/17 09:17 Dose: Not Given Enalapril Maleate (Vasotec Tab*) 10 mg PO DAILY@1200 [facility] Last Admin: 06/24/17 11:57 Dose: Not Given Gabapentin (Neurontin Cap(*)) 1,800 mg PO BEDTIME [facility] Last Admin: 06/23/17 19:45 Dose: Not Given Heparin Sodium (Porcine) (Heparin Vial(*)) 5,000 units SUBCUT Q8HR [facility] Last Admin: 06/24/17 05:30 Dose: 5,000 units Heparin Sodium (Porcine) (Heparin Flush Port (Ivad)) 5 ml FLUSH DAILY [facility] PRN Reason: Protocol Last Admin: 06/24/17 09:16 Dose: 5 ml Hydromorphone HCl (Dilaudid Iv*) 0.5 mg IV SLOW PU Q3H PRN PRN Reason: PAIN Last Admin: 06/24/17 05:32 Dose: 0.5 mg Linezolid (Zyvox 600 Mg Ivpremix(*)) 600 mg in 300 mls @ 300 mls/hr IVPB Q12H [facility] Last Admin: 06/24/17 05:52 Dose: 300 mls/hr Meropenem (Merrem 500mg Premix(*)) 500 mg in 50 mls @ 100 mls/hr IV Q8H [facility] Last Admin: 06/24/17 11:00 Dose: 100 mls/hr Insulin Glargine (Lantus(*)) 20 units SUBCUT Q24H [facility] Last Admin: 06/23/17 18:07 Dose: 20 unit Insulin Human Lispro (Humalog*) 0 units SUBCUT Q4H [place] PRN Reason: Protocol Last Admin: 06/24/17 09:16 Dose: 3 units Lactobacillus Rhamnosus (Culturelle*) 1 cap PO DAILY [facility] Last Admin: 06/24/17 09:16 Dose: Not Given Magnesium Hydroxide (Milk Of Magnhattie Liq*) 30 ml PO Q4H PRN PRN Reason: CONSTIPATION Metoclopramide HCl (Reglan Iv*) 5 mg IV ACHS [facility] Last Admin: 06/24/17 08:15 Dose: 5 mg Metoprolol Tartrate (Lopressor Iv*) 5 mg IV Q6H [facility] Last Admin: 06/24/17 09:16 Dose: 5 mg Mometasone Furoate/Formoterol Fumar (Dulera 100/5 Mdi*) 1 puff INH BID [facility] Last Admin: 06/24/17 08:05 Dose: Not Given Evolocumab [Repatha (Sureclick] 140 Mg) 140 mg SC Q14D [facility] Nystatin (Nystatin Top Powder*) 1 applic TOPICAL TID [facility] Last Admin: 06/24/17 09:23 Dose: 1 applic Ondansetron HCl (Zofran Inj*) 4 mg IV Q6H PRN PRN Reason: NAUSEA Last Admin: 06/24/17 08:15 Dose: 4 mg Oxycodone/Acetaminophen (Percocet 5/325 Tab*) 2 tab PO Q4H PRN PRN Reason: PAIN Last Admin: 06/24/17 09:06 Dose: 2 tab Polyethylene Glycol/Electrolytes (Miralax*) 17 gm PO DAILY PRN PRN Reason: CONSTIPATION Pramipexole Dihydrochloride (Mirapex Tab*) 0.5 mg PO BEDTIME [facility] Last Admin: 06/23/17 19:45 Dose: Not Given Scopolamine (Transderm-Scop 1.5 Mg Patch*) 1 patch TRANSDERM Q72H [facility] Last Admin: 06/22/17 16:02 Dose: 1 patch Spironolactone (Aldactone Tab*) 12.5 mg PO MOWEFR [facility] Last Admin: 06/23/17 18:03 Dose: 12.5 mg Ticagrelor (Brilinta*) 90 mg PO BID [facility] Last Admin: 06/24/17 09:17 Dose: Not Given Tiotropium [place] (Spiriva Cap.Inh*) 1 cap INH DAILY [facility] Last Admin: 06/24/17 08:05 Dose: Not Given Vital Signs 06/23/17 06/23/17 06/23/17 13:12 13:29 14:12 Temperature Pulse Rate Respiratory 16 16 16 Rate Blood Pressure (mmHg) O2 Sat by Pulse Oximetry 06/23/17 06/23/17 06/23/17 16:00 16:44 18:10 Temperature 98.7 F Pulse Rate 66 Respiratory 16 16 Rate Blood Pressure 166/88 (mmHg) O2 Sat by Pulse 97 97 Oximetry 06/23/17 06/23/17 06/23/17 19:41 19:44 20:00 Temperature 98.4 F Pulse Rate 75 Respiratory 17 14 16 Rate Blood Pressure 161/80 (mmHg) O2 Sat by Pulse 97 Oximetry 06/23/17 06/23/17 06/23/17 20:10 20:41 23:23 Temperature 97.9 F Pulse Rate 63 Respiratory 16 17 14 Rate Blood Pressure 140/98 (mmHg) O2 Sat by Pulse 98 Oximetry 06/24/17 06/24/17 06/24/17 00:41 01:41 03:11 Temperature 97.5 F Pulse Rate 59 Respiratory 16 15 14 Rate Blood Pressure 155/75 (mmHg) O2 Sat by Pulse 99 Oximetry 06/24/17 06/24/17 06/24/17 03:12 05:32 06:32 Temperature Pulse Rate 72 Respiratory 18 16 Rate Blood Pressure (mmHg) O2 Sat by Pulse Oximetry 06/24/17 06/24/17 06/24/17 08:00 08:02 09:06 Temperature 98.2 F Pulse Rate 65 Respiratory 17 17 16 Rate Blood Pressure 160/78 (mmHg) O2 Sat by Pulse 95 95 Oximetry 06/24/17 11:48 Temperature 97.9 F Pulse Rate 62 Respiratory 16 Rate Blood Pressure 162/80 (mmHg) O2 Sat by Pulse 100 Oximetry Oxygen Devices in Use Now: None Appearance: 57 yo f in nAD, aAOx3 Eyes: No Scleral Icterus, PERRLA Ears/Nose/Mouth/Throat: NL Teeth, Lips, Gums, Mucous Membranes Moist Neck: NL Appearance and Movements; NL JVP, Trachea Midline Respiratory: Symmetrical Chest Expansion and Respiratory Effort, Clear to Auscultation Cardiovascular: NL Sounds; No Murmurs; No JVD, RRR Abdominal: NL Sounds; No Tenderness; No Distention Lymphatic: No Cervical Adenopathy Extremities: No Edema, No Clubbing, Cyanosis, - - left stump in cast Skin: No Nodules or Sclerosis, - - jorge intertrigo in groin-resolving Neurological: Alert and Oriented x 3, NL Muscle Strength and Tone Result Diagrams: 06/24/17 05:55 06/24/17 05:55 Additional Lab and Data: Lab Results 06/16/17 06/16/17 06/16/17 Range/Units 14:05 14:05 14:05 WBC (3.5-10.8) 10^3/ul RBC (4.0-5.4) 10^6/ul Hgb (12.0-16.0) g/dl Hct (35-47) % MCV (80-97) fL MCH (27-31) pg MCHC (31-36) g/dl RDW (10.5-15) % Plt Count (150-450) 10^3/ul MPV (7.4-10.4) um3 Neut % (Auto) (38-83) % Lymph % (Auto) (25-47) % [place] % (Auto) (1-9) % Eos % (Auto) (0-6) % Baso % (Auto) (0-2) % Absolute Neuts (auto) (1.5-7.7) 10^3/ul Absolute Lymphs (auto) (1.0-4.8) 10^3/ul Absolute Monos (auto) (0-0.8) 10^3/ul Absolute Eos (auto) (0-0.6) 10^3/ul Absolute Basos (auto) (0-0.2) 10^3/ul Absolute Nucleated RBC 10^3/ul Nucleated RBC % INR (Anticoag Therapy) 0.88 L (0.89-1.11) APTT 28.0 (26.0-36.3) seconds Sodium 124 L (133-145) mmol/L Potassium 5.0 (3.5-5.0) mmol/L Chloride 91 L (101-111) mmol/L Carbon Dioxide 26 (22-32) mmol/L Anion Gap 7 (2-11) mmol/L BUN 30 H (6-24) mg/dL Creatinine 1.34 H (0.51-0.95) mg/dL Est GFR ( Amer) 52.6 (>60) Est GFR (Non-Af Amer) 40.9 (>60) BUN/Creatinine Ratio 22.4 H (8-20) Glucose 685 H* (70-100) mg/dL Lactic Acid (0.5-2.0) mmol/L Calcium 9.0 (8.6-10.3) mg/dL Total Bilirubin 0.40 (0.2-1.0) mg/dL AST 10 L (13-39) U/L ALT 6 L (7-52) U/L Alkaline Phosphatase 184 H (34-104) U/L C-Reactive Protein 50.37 H (< 5.00) mg/L B-Natriuretic Peptide 866 H ( - 100) pg/mL Total Protein 6.5 (6.4-8.9) g/dL Albumin 2.8 L (3.2-5.2) g/dL Globulin 3.7 (2-4) g/dL Albumin/Globulin Ratio 0.8 L (1-3) Urine Color Urine Appearance Urine pH (5-9) Ur Specific [place] (1.010-1.030) Urine Protein (Negative) Urine Ketones (Negative) Urine Blood (Negative) Urine Nitrate (Negative) Urine Bilirubin (Negative) Urine Urobilinogen (Negative) Ur Leukocyte Esterase (Negative) Urine WBC (Auto) (Absent) Urine RBC (Auto) (Absent) Ur Squamous Epith Cells (Absent) Urine Bacteria (Absent) Urine Glucose (Negative) 06/16/17 06/16/17 06/16/17 Range/Units 14:05 14:05 14:21 WBC 11.2 H (3.5-10.8) 10^3/ul RBC 3.11 L (4.0-5.4) 10^6/ul Hgb 9.2 L (12.0-16.0) g/dl Hct 28 L (35-47) % MCV 91 (80-97) fL MCH 30 (27-31) pg MCHC 32 (31-36) g/dl RDW 18 H (10.5-15) % Plt Count 207 (150-450) 10^3/ul MPV 10 (7.4-10.4) um3 Neut % (Auto) 83.5 H (38-83) % Lymph % (Auto) 10.2 L (25-47) % Monroe % (Auto) 3.8 (1-9) % Eos % (Auto) 1.6 (0-6) % Baso % (Auto) 0.9 (0-2) % Absolute Neuts (auto) 9.4 H (1.5-7.7) 10^3/ul Absolute Lymphs (auto) 1.1 (1.0-4.8) 10^3/ul Absolute Monos (auto) 0.4 (0-0.8) 10^3/ul Absolute Eos (auto) 0.2 (0-0.6) 10^3/ul Absolute Basos (auto) 0.1 (0-0.2) 10^3/ul Absolute Nucleated RBC 0.01 10^3/ul Nucleated RBC % 0 INR (Anticoag Therapy) (0.89-1.11) APTT (26.0-36.3) seconds Sodium (133-145) mmol/L Potassium (3.5-5.0) mmol/L Chloride (101-111) mmol/L Carbon Dioxide (22-32) mmol/L Anion Gap (2-11) mmol/L BUN (6-24) mg/dL Creatinine (0.51-0.95) mg/dL Est GFR ( Amer) (>60) Est GFR (Non-Af Amer) (>60) BUN/Creatinine Ratio (8-20) Glucose (70-100) mg/dL Lactic Acid 2.1 H* (0.5-2.0) mmol/L Calcium (8.6-10.3) mg/dL Total Bilirubin (0.2-1.0) mg/dL AST (13-39) U/L ALT (7-52) U/L Alkaline Phosphatase (34-104) U/L C-Reactive Protein (< 5.00) mg/L B-Natriuretic Peptide ( - 100) pg/mL Total Protein (6.4-8.9) g/dL Albumin (3.2-5.2) g/dL Globulin (2-4) g/dL Albumin/Globulin Ratio (1-3) Urine Color Yellow Urine Appearance Clear Urine pH 6.0 (5-9) Ur Specific [place] 1.024 (1.010-1.030) Urine Protein 2+(100 mg/dl) H (Negative) Urine Ketones Negative (Negative) Urine Blood 2+ H (Negative) Urine Nitrate Positive H (Negative) Urine Bilirubin Negative (Negative) Urine Urobilinogen Negative (Negative) Ur Leukocyte Esterase Trace H (Negative) Urine WBC (Auto) 2+(11-20/hpf) H (Absent) Urine RBC (Auto) 2+(6-10/hpf) H (Absent) Ur Squamous Epith Cells Present H (Absent) Urine Bacteria 1+ H (Absent) Urine Glucose 3+(>=500 mg/dl) H (Negative) Microbiology and Other Data: Microbiology 06/17/17 18:09 Aerobic Blood Culture - Preliminary Blood Venous No Growth Day 1 Anaerobic Blood Culture - Preliminary No Growth Day 1 Assess/Plan/Problems-Billing Assessment: Mrs. Galarza is a 57yo F with PMH of insulin dependent diabetes, CAD s/p CABG, PVD, CVA, chronic anemia, CKD stage 3, HTN, HLD, left subclavian stenosis s/p stent, left foot osteomyelitis s/p forefoot amputation, who presented to ED with chills found to have left heel abscess - Patient Problems (1) Abscess Comment: appreciate ID and ortho assistance cont IV linezolid s/p washing out of left heel abscess by Dr. Hess on 06/21/17 (2) Candidal intertrigo Comment: severe improved after tx with diflucan x 5 days (last dose on 06/21/17) cont nystatin (3) Uncontrolled type II diabetes mellitus Comment: Lantus cont + ISS (4) Hyponatremia Comment: initially pseudohyponatremia due to high sugar, now I suspect pt is prerenal. IVF started (5) CKD (chronic kidney disease) stage 3, GFR 30-59 ml/min Comment: - Creatinine near baseline due to DM2 (6) Peripheral vascular disease Comment: Pt had stenting to the L LE Cont ASA and brilinta (7) HTN (hypertension) Comment: cont ACEI and coreg started on lopressor IV on 06/21/17, sometimes pt is too nauseated to take PO (8) UTI (urinary tract infection) Comment: urine culture is growing E. coli resistant to fluoroquinolones, pt is allergic to most of other alternative antibiotics. did not takenitrofurantoin due to nausea. started on meropenem by Dr. Saucedo on 06/24/17 (9) Nausea and vomiting Comment: Possible gastroparesis. Continue Reglan IV, prior to meals. concerning no BM x [address] abd on 06/23/17 unremarkable. Pt agreed to an enema today (10) DVT prophylaxis Comment: - SQ heparin. Status and Disposition: inpatient
[2017-06-24] MEDS: NS 0.9% 1000 ML* 1,000 ML IV SCH (14:26)
[2017-06-24] MEDS: Insulin GLARGINE(*) 1 UNITS UNIT SUBCUT SCH (18:37)
[2017-06-24] MEDS: Pramipexole TAB* 0.5 MG PO SCH (20:41)
[2017-06-24] MEDS: Atorvastatin* 20 MG TAB PO SCH (20:41)
[2017-06-24] MEDS: Gabapentin CAP(*) 300 MG PO SCH (20:41)
[2017-06-25] MEDS: HYDROmorphone INJ* 1 MG/ML CARPUJECT SYRINGE IV SLOW PU PRN ×4 (00:41→21:43)
[2017-06-25] MEDS: Insulin LISPRO* 1 UNITS UNIT SUBCUT SCH ×6 (00:43→21:38)
[2017-06-25] MEDS: Meropenem 500MG PREMIX(*) 500 MG/50 ML BAG IV SCH ×3 (02:27→17:57)
[2017-06-25] MEDS ORDERED: PROCHLORPERAZINE INJ 5 MG/ML 2 ML VIAL IV PRN (03:25)
[2017-06-25] MEDS: Metoprolol Tartrate IV* 1 MG/ML 5 ML VIAL IV SCH ×4 (03:49→19:49)
[2017-06-25] MEDS ORDERED: Metoclopramide IV* 5 MG/ML 2 ML VIAL IV ONE (04:00)
[2017-06-25 04:21] LABS: Hematocrit 32 % (35-47); Hemoglobin 10.3 g/dl (12.0-16.0); Mean Corpuscular HGB Conc 32 g/dl (31-36); Mean Corpuscular Hemoglobin 29 pg (27-31); Mean Corpuscular Volume 92 fL (80-97); Mean Platelet Volume 8 um3 (7.4-10.4); Red Blood Count 3.52 10^6/ul (4.0-5.4); Red Cell Distribution Width 18 % (10.5-15); White Blood Count 7.4 10^3/ul (3.5-10.8)
[2017-06-25 04:31] LABS: BUN/Creatinine Ratio 20.8 (8-20); Calcium 8.3 mg/dL (8.6-10.3); EGFR African American 54.5 (>60); EGFR Non-African American 42.4 (>60)
[2017-06-25 04:41] LABS: Potassium 5.4 mmol/L (3.5-5.0)
[2017-06-25] MEDS: Linezolid 600 MG IVPREMIX(*) 600 MG/300 ML BAG IVPB SCH ×2 (05:51→18:21)
[2017-06-25] MEDS: Ondansetron INJ* 2 MG/ML VIAL IV PRN ×3 (05:54→18:20)
[2017-06-25] MEDS: Heparin VIAL(*) 5000 UNITS/ML VIAL (FIVE THOUSAND) SUBCUT SCH ×3 (05:59→21:43)
[2017-06-25] MEDS: Docusate CAP* 100 MG PO SCH ×2 (07:44→20:17)
[2017-06-25] MEDS: Aspirin EC Low Dose* 81 MG TAB.EC PO SCH (07:44)
[2017-06-25] MEDS: Lactobacillus Acidophilu (GG)* 1 CAP CAP PO SCH (07:46)
[2017-06-25] MEDS: Carvedilol TAB* 3.125 MG PO SCH ×2 (07:46→20:17)
[2017-06-25] MEDS: Metoclopramide IV* 5 MG/ML 2 ML VIAL IV SCH ×4 (07:57→19:52)
[2017-06-25] MEDS: Mometasone/Formoter 100/5 MDI INH SCH ×2 (07:59→19:51)
[2017-06-25] MEDS: Tiotropium CAP.INH* CAP.INH/18 MCG (USE ORDER SET !) INH SCH (08:00)
[2017-06-25] MEDS: oxyCODONE/Acetamin 5/325 MG* TAB PO PRN ×3 (08:01→19:27)
[2017-06-25] MEDS: Nystatin TOP POWDER* 15 GM BTL TOPICAL SCH ×3 (08:02→21:38)
[2017-06-25] MEDS: Ticagrelor* 90 MG TAB PO SCH ×2 (08:02→20:18)
--- NOTE | 2017-06-25 09:12 | PN ---
Subjective Date of Service: 06/25/17 Interval History: HOSPITALIST PROGRESS NOTE Patient seen and examined at bedside. She did not take her enema yesterday and had no BM so far. Continues to c/o abdominal distention, nausea and recurrent vomiting. Left stump is tender, but pain is manageable. Family History: Unchanged from Admission Social History: Unchanged from Admission Past Medical History: Unchanged from Admission Objective Active Medications: Acetaminophen (Tylenol Tab*) 650 mg PO Q4H PRN PRN Reason: FEVER/PAIN Albuterol (Ventolin 2.5 Mg/3 Ml Neb.Roxy*) 2.5 mg INH Q2H PRN PRN Reason: SOB/WHEEZING Aspirin (Aspirin Ec Low Dose*) 81 mg PO DAILY [facility] Last Admin: 06/25/17 07:44 Dose: Not Given Atorvastatin Calcium (Lipitor*) 20 mg PO BEDTIME [facility] Last Admin: 06/24/17 20:41 Dose: Not Given Carvedilol (Coreg Tab*) 4.6875 mg PO BEDTIME [facility] Last Admin: 06/24/17 20:41 Dose: Not Given Carvedilol (Coreg Tab*) 1.5625 mg PO QAM [facility] Last Admin: 06/25/17 07:46 Dose: Not Given Dextrose (D50w Syringe 50 Ml*) 12.5 gm IV PUSH .FOR FS < 60 - SS PRN PRN Reason: FS < 60 Docusate Sodium (Colace Cap*) 100 mg PO BID [facility] Last Admin: 06/25/17 07:44 Dose: Not Given Enalapril Maleate (Vasotec Tab*) 10 mg PO DAILY@1200 [facility] Last Admin: 06/24/17 11:57 Dose: Not Given Gabapentin (Neurontin Cap(*)) 1,800 mg PO BEDTIME [facility] Last Admin: 06/24/17 20:41 Dose: Not Given Heparin Sodium (Porcine) (Heparin Vial(*)) 5,000 units SUBCUT Q8HR [facility] Last Admin: 06/25/17 05:59 Dose: 5,000 units Heparin Sodium (Porcine) (Heparin Flush Port (Ivad)) 5 ml FLUSH DAILY [facility] PRN Reason: Protocol Last Admin: 06/25/17 07:44 Dose: Not Given Hydromorphone HCl (Dilaudid Iv*) 0.5 mg IV SLOW PU Q3H PRN PRN Reason: PAIN Last Admin: 06/25/17 05:53 Dose: 0.5 mg Linezolid (Zyvox 600 Mg Ivpremix(*)) 600 mg in 300 mls @ 300 mls/hr IVPB Q12H [facility] Last Admin: 06/25/17 05:51 Dose: 300 mls/hr Meropenem (Merrem 500mg Premix(*)) 500 mg in 50 mls @ 100 mls/hr IV Q8H [facility] Last Admin: 06/25/17 02:27 Dose: 100 mls/hr Sodium Chloride (Ns 0.9% 1000 Ml*) 1,000 mls @ 60 mls/hr IV .PER RATE [facility] Last Admin: 06/24/17 14:26 Dose: 60 mls/hr Insulin Glargine (Lantus(*)) 20 units SUBCUT Q24H [facility] Last Admin: 06/24/17 18:37 Dose: 20 unit Insulin Human Lispro (Humalog*) 0 units SUBCUT Q4H [place] PRN Reason: Protocol Last Admin: 06/25/17 08:01 Dose: 3 units Lactobacillus Rhamnosus (Culturelle*) 1 cap PO DAILY [facility] Last Admin: 06/25/17 07:46 Dose: Not Given Magnesium Hydroxide (Milk Of Magnesia Liq*) 30 ml PO Q4H PRN PRN Reason: CONSTIPATION Metoclopramide HCl (Reglan Iv*) 5 mg IV ACHS [facility] Last Admin: 06/25/17 07:57 Dose: 5 mg Metoprolol Tartrate (Lopressor Iv*) 5 mg IV Q6H [facility] Last Admin: 06/25/17 07:57 Dose: 5 mg Mometasone Furoate/Formoterol Fumar (Dulera 100/5 Mdi*) 1 puff INH BID [facility] Last Admin: 06/25/17 07:59 Dose: Not Given Evolocumab [Repatha (Sureclick] 140 Mg) 140 mg SC Q14D [facility] Nystatin (Nystatin Top Powder*) 1 applic TOPICAL TID [facility] Last Admin: 06/25/17 08:02 Dose: 1 applic Ondansetron HCl (Zofran Inj*) 4 mg IV Q6H PRN PRN Reason: NAUSEA Last Admin: 06/25/17 05:54 Dose: 4 mg Oxycodone/Acetaminophen (Percocet 5/325 Tab*) 2 tab PO Q4H PRN PRN Reason: PAIN Last Admin: 06/25/17 08:01 Dose: 2 tab Polyethylene Glycol/Electrolytes (Miralax*) 17 gm PO DAILY PRN PRN Reason: CONSTIPATION Pramipexole Dihydrochloride (Mirapex Tab*) 0.5 mg PO BEDTIME [facility] Last Admin: 06/24/17 20:41 Dose: Not Given Scopolamine (Transderm-Scop 1.5 Mg Patch*) 1 patch TRANSDERM Q72H [facility] Last Admin: 06/22/17 16:02 Dose: 1 patch Spironolactone (Aldactone Tab*) 12.5 mg PO MOWEFR [facility] Last Admin: 06/23/17 18:03 Dose: 12.5 mg Ticagrelor (Brilinta*) 90 mg PO BID [facility] Last Admin: 06/25/17 08:02 Dose: Not Given Tiotropium [place] (Spiriva Cap.Inh*) 1 cap INH DAILY [facility] Last Admin: 06/25/17 08:00 Dose: Not Given Vital Signs 06/25/17 06/25/17 06/25/17 05:53 06:53 07:45 Temperature 96.3 F Pulse Rate 74 Respiratory 17 16 16 Rate Blood Pressure 167/79 (mmHg) O2 Sat by Pulse 98 Oximetry Oxygen Devices in Use Now: None Appearance: Pleasant lady sitting up in bed in NAD. Eyes: No Scleral Icterus Ears/Nose/Mouth/Throat: Mucous Membranes Moist Neck: Trachea Midline Respiratory: Symmetrical Chest Expansion and Respiratory Effort, Clear to Auscultation Cardiovascular: RRR - Normal S1 and S2 Abdominal: - - Soft, mild distention, NG, NR, BS+ Extremities: - - CDI to left stump Neurological: Alert and Oriented x 3, NL Muscle Strength and Tone Result Diagrams: 06/25/17 04:00 06/25/17 04:00 Assess/Plan/Problems-Billing Assessment: Mrs. Galarza is a 57yo F with PMH of insulin dependent diabetes, CAD s/p CABG, PVD, CVA, chronic anemia, CKD stage 3, HTN, HLD, left subclavian stenosis s/p stent, left foot osteomyelitis s/p forefoot amputation, who presented to ED with chills found to have left heel abscess. - Patient Problems (1) Nausea and vomiting Comment: - Likely a combination of infection, possible gastroparesis and significant constipation. - Continue Reglan IV prior to meals. - Scopolamine patch. - Patient wants to try suppositories before enema. - Continue laxatives. (2) Abscess of heel, left Comment: - S/p I&D and debridment by Dr. Hess 06/21/17. - Cultures yielded no growth. - ID input appreciated - continue Linezolide. (3) Vulvar abscess Comment: - Resolved. (4) Uncontrolled type II diabetes mellitus Comment: - Poorly controlled - last A1c was 15 in April. - Continue Lantus Lispro SS. - Will request diabetes ([facility]) consultation. (5) Hyponatremia Comment: - Initially pseudohyponatremia due to hyperglycemia, but now likely secondary to dehydration. - Continue IVF. (6) Peripheral vascular disease Comment: - Continue ASA and brilinta. (7) HTN (hypertension) Comment: - Trending up as she's not tolerating her PO meds. - Add IV hydralazine PRN. (8) UTI (urinary tract infection) Comment: - Urine culture grew E. coli resistant to fluoroquinolones, pt is allergic to most of other alternative antibiotics. - Started on meropenem by Dr. Saucedo on 06/24/17. (9) DVT prophylaxis Comment: - SQ heparin. (10) Full code status Status and Disposition: Inpatient for management of infection (heel/UTI), recurrent N/V, requiring >48h for stabilization.
[2017-06-25] MEDS ORDERED: Bisacodyl SUPP* 10 MG SUPP PR PRN (09:35)
[2017-06-25] MEDS ORDERED: Sodium Phosphate ADULT ENEMA* 118 ml bottle PR PRN (09:36)
[2017-06-25] MEDS: Bisacodyl EC TAB* 5 MG PO PRN (10:31)
[2017-06-25] MEDS: NS 0.9% 1000 ML* 1,000 ML IV SCH (10:35)
--- NOTE | 2017-06-25 10:45 | PN ---
Progress Note - Progress Note Date of Service: 06/25/17 SOAP: Subjective: CC: nausea HPI: 57 year old woman here with right vulvar abscess, left heel ulcer, abscess on CT, had I&D. Ongoing nausea and vomiting, no abd pain, no BM or flatus in a few days, did not tolerate enema due to nausea. Vulvar swelling and pain resolved. Left heel pain about the same. Objective: [] Vital Signs Temp 35.7 C 06/25/17 07:45 Pulse 74 06/25/17 07:59 Resp 18 06/25/17 10:28 BP 167/79 06/25/17 07:45 Pulse Ox 96 06/25/17 07:59 Intake & Output 06/24/17 06/25/17 06/25/17 18:59 06:59 18:59 Intake Total 600 1168 Output Total 0 200 Balance 600 1168 -200 Intake: IV Fluids 768 NS (0.9%) 768 Oral 600 400 Output: Urine 0 200 Other: Estimated Void Large # Bowel Movements 0 0 # Voids 1 0 1 Gen:Awake, no distress HEENT:PERRL,MMM Neck:Supple Heart:RRR no murmur Lungs:CTA BL Abd:decr BS, soft, non tender, mildly distended Skin: no rash MSK: L foot casted Assessment: 1. vulvar abscess, resolved 2. R heel ulcer, abscess s/p I&D, culture neg while on zyvox 3. nausea, vomiting, more distended, suspect due to constipation 4. diabetes with neuropathy 5. elev CRP ?foot infection or cystitis 6. E.coli bacteruria, could be contributing nausea and elev CRP Plan: 1. continue linezolid day 7 2. anti emetics, bowel regimen 3. meropenem 1 gm IV Q12hrs day 2/3 35 minutes floor time >50% face to face counseling regarding treatment of cystitis and constipation and coordinating care with Dr Alfonso
[2017-06-25] MEDS: Enalapril TAB* 5 MG PO SCH (12:38)
[2017-06-25] MEDS ORDERED: hydrALAZINE IV* 20 MG/ML VIAL IV SLOW PU PRN (13:34)
--- NOTE | 2017-06-25 13:36 | CONS ---
CONSULTATION REPORT: DATE OF CONSULT: 06/25/17 HISTORY OF PRESENT ILLNESS: Michelle has been here almost 11 days now with some multifocal infections ; in general, poor diabetic control. She is 4 days out from a washout of her left heel, which did reveal a small collection of brownish f luid, which did not grow any organisms. We also sent a sample of her plantar calcaneus for patholog y, which is pending. Michelle is complaining today mostly of pain at the heel, which I told her at th is point I suspect is mostly just surgical rather than the fluid collection preoperatively. She did not seem to have much groin pain now, but she generally is tired, lethargic, sad in mood and affect and spent most of the night throwing up. She is having trouble with antibiotic selection for her UT I evidently. Michelle will have to be nonweightbearing for at least 2 to 3 weeks for the left heel. She will have a dressing change in the next few days. I spoke to the nursing staff about possibly change in room number so that she could have a little bit more sunshine in the room, she is used to having sunshine during the day and also enjoys being outdoors. She is getting comprehensive care from the Medical Team and Infectious Disease. Orthopedics will fol low along and again inspect the wound in few days' time. [id number]/[facility] #: [id number]
[2017-06-25] MEDS: Scopolamine 1.5 mg* PATCH TRANSDERM SCH (16:16)
[2017-06-25] MEDS: Spironolactone TAB* 25 MG PO SCH (17:58)
[2017-06-25] MEDS: Insulin GLARGINE(*) 1 UNITS UNIT SUBCUT SCH (17:58)
[2017-06-25] MEDS: Atorvastatin* 20 MG TAB PO SCH (20:17)
[2017-06-25] MEDS: Gabapentin CAP(*) 300 MG PO SCH (20:17)
[2017-06-25] MEDS: Pramipexole TAB* 0.5 MG PO SCH (20:18)
[2017-06-26] MEDS: Ondansetron INJ* 2 MG/ML VIAL IV PRN (00:53)
[2017-06-26] MEDS: Insulin LISPRO* 1 UNITS UNIT SUBCUT SCH ×6 (01:14→22:45)
[2017-06-26] MEDS: Meropenem 500MG PREMIX(*) 500 MG/50 ML BAG IV SCH ×3 (02:26→18:09)
[2017-06-26] MEDS: HYDROmorphone INJ* 1 MG/ML CARPUJECT SYRINGE IV SLOW PU PRN ×6 (03:25→23:38)
[2017-06-26] MEDS: Metoprolol Tartrate IV* 1 MG/ML 5 ML VIAL IV SCH ×4 (03:25→21:56)
[2017-06-26] MEDS: Heparin VIAL(*) 5000 UNITS/ML VIAL (FIVE THOUSAND) SUBCUT SCH ×3 (05:47→21:56)
[2017-06-26] MEDS: NS 0.9% 1000 ML* 1,000 ML IV SCH (05:47)
[2017-06-26] MEDS: Linezolid 600 MG IVPREMIX(*) 600 MG/300 ML BAG IVPB SCH ×2 (05:48→18:07)
[2017-06-26] MEDS: Tiotropium CAP.INH* CAP.INH/18 MCG (USE ORDER SET !) INH SCH (07:04)
[2017-06-26] MEDS: Mometasone/Formoter 100/5 MDI INH SCH ×2 (07:04→20:48)
[2017-06-26] MEDS: Metoclopramide IV* 5 MG/ML 2 ML VIAL IV SCH ×4 (09:54→21:56)
[2017-06-26] MEDS: Carvedilol TAB* 3.125 MG PO SCH ×2 (10:32→22:03)
[2017-06-26] MEDS: Docusate CAP* 100 MG PO SCH ×2 (10:32→21:57)
[2017-06-26] MEDS: Lactobacillus Acidophilu (GG)* 1 CAP CAP PO SCH (10:32)
[2017-06-26] MEDS: Ticagrelor* 90 MG TAB PO SCH ×2 (10:32→22:46)
[2017-06-26] MEDS: Aspirin EC Low Dose* 81 MG TAB.EC PO SCH (10:32)
[2017-06-26] MEDS: Bisacodyl EC TAB* 5 MG PO PRN (12:02)
[2017-06-26] MEDS: Nystatin TOP POWDER* 15 GM BTL TOPICAL SCH ×3 (12:02→22:04)
[2017-06-26] MEDS: oxyCODONE/Acetamin 5/325 MG* TAB PO PRN ×2 (12:02→18:15)
--- NOTE | 2017-06-26 12:04 | PN ---
Progress Note - Progress Note Date of Service: 06/26/17 SOAP: Subjective: Pt is doing well. Pain controlled. Lying comfortably in bed. Objective: 57 y/o WDWN F NAD, A&Ox3 LLE- splint c/d/i, able to f/e knee Vital Signs Temp Pulse Resp BP Pulse Ox 98.7 F 66 18 158/83 97 06/26/17 06:48 06/26/17 06:48 06/26/17 10:53 06/26/17 06:48 06/26/17 06:48 Laboratory Results - last 24 hr 06/25/17 06/25/17 06/25/17 13:11 17:19 19:59 POC Glucose (mg/dL) 175 H 112 H 193 H 06/26/17 06/26/17 06/26/17 00:57 05:08 09:04 POC Glucose (mg/dL) 153 H 122 H 139 H Assessment: POD 4 biopsy Left calcaneous and debridement and drainage of abscess Plan: NWB LLE for 2-3 weeks Heparin for DVT prophylaxis hosp and ID co-managing cont abx per ID dressing change in a few days
[2017-06-26] MEDS: Enalapril TAB* 5 MG PO SCH (13:50)
--- NOTE | 2017-06-26 13:57 | PN ---
Subjective Date of Service: 06/26/17 Interval History: HOSPITALIST PROGRESS NOTE Patient seen and examined at bedside. She feels a little better today. Had multiple small BMs today, nausea is improved, but still present. Tolerating small portions of her diet, no further vomiting. Family History: Unchanged from Admission Social History: Unchanged from Admission Past Medical History: Unchanged from Admission Objective Active Medications: Acetaminophen (Tylenol Tab*) 650 mg PO Q4H PRN PRN Reason: FEVER/PAIN Albuterol (Ventolin 2.5 Mg/3 Ml Neb.Roxy*) 2.5 mg INH Q2H PRN PRN Reason: SOB/WHEEZING Aspirin (Aspirin Ec Low Dose*) 81 mg PO DAILY [facility] Last Admin: 06/26/17 10:32 Dose: Not Given Atorvastatin Calcium (Lipitor*) 20 mg PO BEDTIME [facility] Last Admin: 06/25/17 20:17 Dose: Not Given Bisacodyl (Dulcolax Ec Tab*) 10 mg PO DAILY PRN PRN Reason: CONSTIPATION Last Admin: 06/26/17 12:02 Dose: 10 mg Bisacodyl (Dulcolax Supp*) 10 mg HI DAILY PRN PRN Reason: CONSTIPATION Last Admin: 06/25/17 14:01 Dose: 10 mg Carvedilol (Coreg Tab*) 4.6875 mg PO BEDTIME [facility] Last Admin: 06/25/17 20:17 Dose: Not Given Carvedilol (Coreg Tab*) 1.5625 mg PO QAM [facility] Last Admin: 06/26/17 10:32 Dose: Not Given Dextrose (D50w Syringe 50 Ml*) 12.5 gm IV PUSH .FOR FS < 60 - SS PRN PRN Reason: FS < 60 Docusate Sodium (Colace Cap*) 100 mg PO BID [facility] Last Admin: 06/26/17 10:32 Dose: Not Given Enalapril Maleate (Vasotec Tab*) 10 mg PO DAILY@1200 [facility] Last Admin: 06/26/17 13:50 Dose: Not Given Gabapentin (Neurontin Cap(*)) 1,800 mg PO BEDTIME [facility] Last Admin: 06/25/17 20:17 Dose: Not Given Heparin Sodium (Porcine) (Heparin Vial(*)) 5,000 units SUBCUT Q8HR [facility] Last Admin: 06/26/17 05:47 Dose: 5,000 units Heparin Sodium (Porcine) (Heparin Flush Port (Ivad)) 5 ml FLUSH DAILY [place] PRN Reason: Protocol Last Admin: 06/26/17 10:10 Dose: Not Given Hydralazine HCl (Apresoline Iv*) 5 mg IV SLOW PU Q6H PRN PRN Reason: SBP>170 Hydromorphone HCl (Dilaudid Iv*) 0.5 mg IV SLOW PU Q3H PRN PRN Reason: PAIN Last Admin: 06/26/17 09:53 Dose: 0.5 mg Linezolid (Zyvox 600 Mg Ivpremix(*)) 600 mg in 300 mls @ 300 mls/hr IVPB Q12H [facility] Last Admin: 06/26/17 05:48 Dose: 300 mls/hr Meropenem (Merrem 500mg Premix(*)) 500 mg in 50 mls @ 100 mls/hr IV Q8H [facility] Last Admin: 06/26/17 09:52 Dose: 100 mls/hr Insulin Glargine (Lantus(*)) 20 units SUBCUT Q24H [facility] Last Admin: 06/25/17 17:58 Dose: 20 unit Insulin Human Lispro (Humalog*) 0 units SUBCUT Q4H [place] PRN Reason: Protocol Last Admin: 06/26/17 13:19 Dose: Not Given Lactobacillus Rhamnosus (Culturelle*) 1 cap PO DAILY [facility] Last Admin: 06/26/17 10:32 Dose: Not Given Magnesium Hydroxide (Milk Of Magnesia Liq*) 30 ml PO Q4H PRN PRN Reason: CONSTIPATION Metoclopramide HCl (Reglan Iv*) 5 mg IV ACHS [facility] Last Admin: 06/26/17 12:02 Dose: 5 mg Metoprolol Tartrate (Lopressor Iv*) 5 mg IV Q6H [facility] Last Admin: 06/26/17 09:54 Dose: 5 mg Mometasone Furoate/Formoterol Fumar (Dulera 100/5 Mdi*) 1 puff INH BID [facility] Last Admin: 06/26/17 07:04 Dose: Not Given Evolocumab [Repatha (Sureclick] 140 Mg) 140 mg SC Q14D [facility] Nystatin (Nystatin Top Powder*) 1 applic TOPICAL TID [facility] Last Admin: 06/26/17 12:02 Dose: 1 applic Ondansetron HCl (Zofran Inj*) 4 mg IV Q6H PRN PRN Reason: NAUSEA Last Admin: 06/26/17 00:53 Dose: 4 mg Oxycodone/Acetaminophen (Percocet 5/325 Tab*) 2 tab PO Q4H PRN PRN Reason: PAIN Last Admin: 06/26/17 12:02 Dose: 2 tab Polyethylene Glycol/Electrolytes (Miralax*) 17 gm PO DAILY PRN PRN Reason: CONSTIPATION Pramipexole Dihydrochloride (Mirapex Tab*) 0.5 mg PO BEDTIME [facility] Last Admin: 06/25/17 20:18 Dose: Not Given Prochlorperazine (Compazine Tab*) 10 mg PO Q6H PRN PRN Reason: NAUSEA Scopolamine (Transderm-Scop 1.5 Mg Patch*) 1 patch TRANSDERM Q72H [facility] Last Admin: 06/25/17 16:16 Dose: 1 patch Sodium Biphosphate/Sodium Phosphate (Fleet Enema*) 1 bottle HI DAILY PRN PRN Reason: CONSTIPATION Spironolactone (Aldactone Tab*) 12.5 mg PO MOWEFR [facility] Last Admin: 06/25/17 17:58 Dose: Not Given Ticagrelor (Brilinta*) 90 mg PO BID [facility] Last Admin: 06/26/17 10:32 Dose: Not Given Tiotropium [place] (Spiriva Cap.Inh*) 1 cap INH DAILY [facility] Last Admin: 06/26/17 07:04 Dose: Not Given Vital Signs 06/26/17 06/26/17 06/26/17 06:21 06:48 07:21 Temperature 98.7 F Pulse Rate 66 Respiratory 14 16 18 Rate Blood Pressure 158/83 (mmHg) O2 Sat by Pulse 97 Oximetry Oxygen Devices in Use Now: None Appearance: Pleasant lady lying in bed in NAD. Eyes: No Scleral Icterus Ears/Nose/Mouth/Throat: Mucous Membranes Moist Neck: Trachea Midline Respiratory: Symmetrical Chest Expansion and Respiratory Effort, Clear to Auscultation Cardiovascular: RRR - Normal S1 and S2 Abdominal: NL Sounds; No Tenderness; No Distention Extremities: - - CDI to LLE Neurological: Alert and Oriented x 3, NL Muscle Strength and Tone Lines/Tubes/Other Access: Clean, Dry and Intact Peripheral IV Nutrition: Taking PO's Result Diagrams: 06/25/17 04:00 06/25/17 04:00 Assess/Plan/Problems-Billing Assessment: Mrs. Galarza is a 57yo F with PMH of insulin dependent diabetes, CAD s/p CABG, PVD, CVA, chronic anemia, CKD stage 3, HTN, HLD, left subclavian stenosis s/p stent, left foot osteomyelitis s/p forefoot amputation, who presented to ED with chills found to have left heel abscess. - Patient Problems (1) Nausea and vomiting Comment: - Likely a combination of infection, possible gastroparesis and significant constipation. - Continue Reglan IV prior to meals. - Scopolamine patch. - Continue laxatives. (2) Abscess of heel, left Comment: - S/p I&D and debridment by Dr. Hess 06/21/17. - Cultures yielded no growth. - ID input appreciated - continue Linezolide. (3) Vulvar abscess Comment: - Resolved. (4) Uncontrolled type II diabetes mellitus Comment: - Poorly controlled - last A1c was 15 in April. - Continue Lantus Lispro SS. - Will request diabetes ([facility]) consultation. (5) Hyponatremia Comment: - Initially pseudohyponatremia due to hyperglycemia, but now likely secondary to dehydration. - D/c IVF. (6) Peripheral vascular disease Comment: - Continue ASA and brilinta. (7) HTN (hypertension) Comment: - Trending up as she's not tolerating her PO meds. - Add IV hydralazine PRN. (8) UTI (urinary tract infection) Comment: - Urine culture grew E. coli resistant to fluoroquinolones, pt is allergic to most of other alternative antibiotics. - Started on meropenem by Dr. Saucedo on 06/24/17. (9) DVT prophylaxis Comment: - SQ heparin. (10) Full code status Status and Disposition: Inpatient for management of infection (heel/UTI), recurrent N/V, requiring >48h for stabilization.
[2017-06-26 14:32] LABS: BUN/Creatinine Ratio 22.2 (8-20); Calcium 8.3 mg/dL (8.6-10.3); EGFR African American 61.5 (>60); EGFR Non-African American 47.8 (>60)
[2017-06-26 14:40] LABS: Potassium 5.5 mmol/L (3.5-5.0)
[2017-06-26] MEDS ORDERED: Sodium Polystyrene ORAL.SOL* 15 GM/60 ML BTL PO ONE (16:22)
[2017-06-26] MEDS: Insulin GLARGINE(*) 1 UNITS UNIT SUBCUT SCH (18:08)
[2017-06-26] MEDS: Prochlorperazine TAB* 10 MG PO PRN (18:15)
[2017-06-26] MEDS: Atorvastatin* 20 MG TAB PO SCH (22:02)
[2017-06-26] MEDS: Gabapentin CAP(*) 300 MG PO SCH (22:03)
[2017-06-26] MEDS: Pramipexole TAB* 0.5 MG PO SCH (22:52)
[2017-06-27] MEDS: Meropenem 500MG PREMIX(*) 500 MG/50 ML BAG IV SCH ×3 (02:50→17:28)
[2017-06-27] MEDS: oxyCODONE/Acetamin 5/325 MG* TAB PO PRN ×4 (03:08→20:56)
[2017-06-27] MEDS: Metoprolol Tartrate IV* 1 MG/ML 5 ML VIAL IV SCH ×4 (03:08→20:55)
[2017-06-27] MEDS: Ondansetron INJ* 2 MG/ML VIAL IV PRN (03:08)
[2017-06-27] MEDS: Insulin LISPRO* 1 UNITS UNIT SUBCUT SCH ×6 (03:20→20:54)
[2017-06-27] MEDS: Prochlorperazine TAB* 10 MG PO PRN (04:38)
[2017-06-27] MEDS: Heparin VIAL(*) 5000 UNITS/ML VIAL (FIVE THOUSAND) SUBCUT SCH ×3 (05:39→20:55)
[2017-06-27] MEDS: Linezolid 600 MG IVPREMIX(*) 600 MG/300 ML BAG IVPB SCH ×2 (05:39→18:08)
[2017-06-27 06:00] LABS: BUN/Creatinine Ratio 23.6 (8-20); Calcium 8.2 mg/dL (8.6-10.3); EGFR African American 66.1 (>60); EGFR Non-African American 51.4 (>60); Potassium 4.8 mmol/L (3.5-5.0)
[2017-06-27] MEDS: Metoclopramide IV* 5 MG/ML 2 ML VIAL IV SCH ×4 (07:25→20:55)
[2017-06-27] MEDS: HYDROmorphone INJ* 1 MG/ML CARPUJECT SYRINGE IV SLOW PU PRN ×3 (07:33→17:36)
[2017-06-27] MEDS: Tiotropium CAP.INH* CAP.INH/18 MCG (USE ORDER SET !) INH SCH (08:31)
[2017-06-27] MEDS: Mometasone/Formoter 100/5 MDI INH SCH ×2 (08:31→18:59)
[2017-06-27] MEDS: Ticagrelor* 90 MG TAB PO SCH ×2 (08:43→20:58)
[2017-06-27] MEDS: Lactobacillus Acidophilu (GG)* 1 CAP CAP PO SCH (08:43)
[2017-06-27] MEDS: Aspirin EC Low Dose* 81 MG TAB.EC PO SCH (08:43)
[2017-06-27] MEDS: Carvedilol TAB* 3.125 MG PO SCH ×2 (08:43→20:56)
[2017-06-27] MEDS: Nystatin TOP POWDER* 15 GM BTL TOPICAL SCH ×3 (08:55→20:58)
[2017-06-27] MEDS: Docusate CAP* 100 MG PO SCH ×2 (08:56→20:57)
[2017-06-27] MEDS: Enalapril TAB* 5 MG PO SCH (12:21)
--- NOTE | 2017-06-27 13:28 | PN ---
Subjective Date of Service: 06/27/17 Interval History: HOSPITALIST PROGRESS NOTE Patient seen and examined at bedside. She feels a little better today. Still having BMs, still has nausea, but tolerating diet. Willing to take her pills again. Family History: Unchanged from Admission Social History: Unchanged from Admission Past Medical History: Unchanged from Admission Objective Active Medications: Acetaminophen (Tylenol Tab*) 650 mg PO Q4H PRN PRN Reason: FEVER/PAIN Albuterol (Ventolin 2.5 Mg/3 Ml Neb.Roxy*) 2.5 mg INH Q2H PRN PRN Reason: SOB/WHEEZING Aspirin (Aspirin Ec Low Dose*) 81 mg PO DAILY [facility] Last Admin: 06/27/17 08:43 Dose: Not Given Atorvastatin Calcium (Lipitor*) 20 mg PO BEDTIME [facility] Last Admin: 06/26/17 22:02 Dose: Not Given Bisacodyl (Dulcolax Ec Tab*) 10 mg PO DAILY PRN PRN Reason: CONSTIPATION Last Admin: 06/26/17 12:02 Dose: 10 mg Bisacodyl (Dulcolax Supp*) 10 mg [place] DAILY PRN PRN Reason: CONSTIPATION Last Admin: 06/25/17 14:01 Dose: 10 mg Carvedilol (Coreg Tab*) 4.6875 mg PO BEDTIME [facility] Last Admin: 06/26/17 22:03 Dose: Not Given Carvedilol (Coreg Tab*) 1.5625 mg PO QAM [facility] Last Admin: 06/27/17 08:43 Dose: Not Given Dextrose (D50w Syringe 50 Ml*) 12.5 gm IV PUSH .FOR FS < 60 - SS PRN PRN Reason: FS < 60 Docusate Sodium (Colace Cap*) 100 mg PO BID [facility] Last Admin: 06/27/17 08:56 Dose: Not Given Enalapril Maleate (Vasotec Tab*) 10 mg PO DAILY@1200 [facility] Last Admin: 06/27/17 12:21 Dose: Not Given Gabapentin (Neurontin Cap(*)) 1,800 mg PO BEDTIME [facility] Last Admin: 06/26/17 22:03 Dose: Not Given Heparin Sodium (Porcine) (Heparin Vial(*)) 5,000 units SUBCUT Q8HR [facility] Last Admin: 06/27/17 12:44 Dose: 5,000 units Heparin Sodium (Porcine) (Heparin Flush Port (Ivad)) 5 ml FLUSH DAILY [place] PRN Reason: Protocol Last Admin: 06/27/17 08:50 Dose: 5 ml Hydralazine HCl (Apresoline Iv*) 5 mg IV SLOW PU Q6H PRN PRN Reason: SBP>170 Hydromorphone HCl (Dilaudid Iv*) 0.5 mg IV SLOW PU Q3H PRN PRN Reason: PAIN Last Admin: 06/27/17 12:37 Dose: 0.5 mg Linezolid (Zyvox 600 Mg Ivpremix(*)) 600 mg in 300 mls @ 300 mls/hr IVPB Q12H [facility] Last Admin: 06/27/17 05:39 Dose: 300 mls/hr Meropenem (Merrem 500mg Premix(*)) 500 mg in 50 mls @ 100 mls/hr IV Q8H [facility] Last Admin: 06/27/17 10:22 Dose: 100 mls/hr Insulin Glargine (Lantus(*)) 20 units SUBCUT Q24H [facility] Last Admin: 06/26/17 18:08 Dose: 20 unit Insulin Human Lispro (Humalog*) 0 units SUBCUT Q4H [place] PRN Reason: Protocol Last Admin: 06/27/17 12:51 Dose: Not Given Lactobacillus Rhamnosus (Culturelle*) 1 cap PO DAILY [facility] Last Admin: 06/27/17 08:43 Dose: Not Given Magnesium Hydroxide (Milk Of Magnesia Liq*) 30 ml PO Q4H PRN PRN Reason: CONSTIPATION Metoclopramide HCl (Reglan Iv*) 5 mg IV ACHS [facility] Last Admin: 06/27/17 12:18 Dose: 5 mg Metoprolol Tartrate (Lopressor Iv*) 5 mg IV Q6H [facility] Last Admin: 06/27/17 08:51 Dose: 5 mg Mometasone Furoate/Formoterol Fumar (Dulera 100/5 Mdi*) 1 puff INH BID [facility] Last Admin: 06/27/17 08:31 Dose: Not Given Evolocumab [Repatha (Sureclick] 140 Mg) 140 mg SC Q14D [facility] Nystatin (Nystatin Top Powder*) 1 applic TOPICAL TID [facility] Last Admin: 06/27/17 12:44 Dose: 1 applic Ondansetron HCl (Zofran Inj*) 4 mg IV Q6H PRN PRN Reason: NAUSEA Last Admin: 06/27/17 03:08 Dose: 4 mg Oxycodone/Acetaminophen (Percocet 5/325 Tab*) 2 tab PO Q4H PRN PRN Reason: PAIN Last Admin: 06/27/17 08:50 Dose: 2 tab Polyethylene Glycol/Electrolytes (Miralax*) 17 gm PO DAILY PRN PRN Reason: CONSTIPATION Pramipexole Dihydrochloride (Mirapex Tab*) 0.5 mg PO BEDTIME [facility] Last Admin: 06/26/17 22:52 Dose: Not Given Prochlorperazine (Compazine Tab*) 10 mg PO Q6H PRN PRN Reason: NAUSEA Last Admin: 06/27/17 04:38 Dose: 10 mg Scopolamine (Transderm-Scop 1.5 Mg Patch*) 1 patch TRANSDERM Q72H [facility] Last Admin: 06/25/17 16:16 Dose: 1 patch Sodium Biphosphate/Sodium Phosphate (Fleet Enema*) 1 bottle [place] DAILY PRN PRN Reason: CONSTIPATION Spironolactone (Aldactone Tab*) 12.5 mg PO MOWEFR [facility] Last Admin: 06/25/17 17:58 Dose: Not Given Ticagrelor (Brilinta*) 90 mg PO BID [facility] Last Admin: 06/27/17 08:43 Dose: Not Given Tiotropium [place] (Spiriva Cap.Inh*) 1 cap INH DAILY [facility] Last Admin: 06/27/17 08:31 Dose: Not Given Vital Signs 06/27/17 06/27/17 06/27/17 07:33 07:38 08:00 Temperature 97.4 F Pulse Rate 64 Respiratory 16 16 16 Rate Blood Pressure 163/79 (mmHg) O2 Sat by Pulse 95 Oximetry Oxygen Devices in Use Now: None Appearance: Pleasant lady lying in bed in NAD. Eyes: No Scleral Icterus Ears/Nose/Mouth/Throat: Mucous Membranes Moist Neck: Trachea Midline Respiratory: Symmetrical Chest Expansion and Respiratory Effort, Clear to Auscultation Cardiovascular: RRR - Normal S1 and S2 Abdominal: NL Sounds; No Tenderness; No Distention Extremities: - - CDI to LLE Neurological: Alert and Oriented x 3, NL Muscle Strength and Tone Lines/Tubes/Other Access: Clean, Dry and Intact Peripheral IV Nutrition: Taking PO's Result Diagrams: 06/25/17 04:00 06/27/17 05:20 Assess/Plan/Problems-Billing Assessment: Mrs. Galarza is a 57yo F with PMH of insulin dependent diabetes, CAD s/p CABG, PVD, CVA, chronic anemia, CKD stage 3, HTN, HLD, left subclavian stenosis s/p stent, left foot osteomyelitis s/p forefoot amputation, who presented to ED with chills found to have left heel abscess. - Patient Problems (1) Nausea and vomiting Comment: - Likely a combination of infection, possible gastroparesis and significant constipation. - Continue Reglan IV prior to meals. - Scopolamine patch. - Continue laxatives. (2) Abscess of heel, left Comment: - S/p I&D and debridment by Dr. Hess 06/21/17. - Cultures yielded no growth. - ID input appreciated - continue Linezolide. (3) Vulvar abscess Comment: - Resolved. (4) Uncontrolled type II diabetes mellitus Comment: - Poorly controlled - last A1c was 15 in April. - Continue Lantus Lispro SS. - Will request diabetes ([facility]) consultation. (5) Hyponatremia Comment: - Improving. (6) Peripheral vascular disease Comment: - Continue ASA and brilinta. (7) HTN (hypertension) Comment: - Trending up as she's not tolerating her PO meds - she'll try today. - Add IV hydralazine PRN. (8) UTI (urinary tract infection) Comment: - Urine culture grew E. coli resistant to fluoroquinolones, pt is allergic to most of other alternative antibiotics. - Started on meropenem by Dr. Saucedo on 06/24/17. (9) DVT prophylaxis Comment: - SQ heparin. (10) Full code status Status and Disposition: Inpatient for management of infection (heel/UTI), recurrent N/V, requiring >48h for stabilization. Anticipate d/c when able to tolerate PO meds.
--- NOTE | 2017-06-27 14:30 | PN ---
Progress Note - Progress Note Date of Service: 06/27/17 SOAP: Subjective: [Pt is doing well. Pain controlled. Denies CP/SOB Objective: 57 y/o WDWN F NAD, A&Ox3 LLE- splint cdi, full ROM knee Vital Signs Temp Pulse Resp BP Pulse Ox 97.4 F 64 16 163/79 95 06/27/17 07:38 06/27/17 07:38 06/27/17 13:37 06/27/17 07:38 06/27/17 07:38 Laboratory Results - last 24 hr 06/26/17 06/26/17 06/26/17 14:00 17:13 20:54 Sodium 127 L Potassium 5.5 H Chloride 100 L Carbon Dioxide 24 Anion Gap 3 BUN 26 H Creatinine 1.17 H Est GFR ( Amer) 61.5 Est GFR (Non-Af Amer) 47.8 BUN/Creatinine Ratio 22.2 H Glucose 119 H POC Glucose (mg/dL) 115 H 121 H Calcium 8.3 L 06/27/17 06/27/17 06/27/17 01:08 05:20 05:30 Sodium 129 L Potassium 4.8 Chloride 101 Carbon Dioxide 24 Anion Gap 4 BUN 26 H Creatinine 1.10 H Est GFR ( Amer) 66.1 Est GFR (Non-Af Amer) 51.4 BUN/Creatinine Ratio 23.6 H Glucose 116 H POC Glucose (mg/dL) 101 H 124 H Calcium 8.2 L 06/27/17 06/27/17 08:39 12:49 Sodium Potassium Chloride Carbon Dioxide Anion Gap BUN Creatinine Est GFR ( Amer) Est GFR (Non-Af Amer) BUN/Creatinine Ratio Glucose POC Glucose (mg/dL) 128 H 113 H Calcium Assessment: POD 5 biopsy Left calcaneous and debridement and drainage of abscess Plan: NWB LLE for 2-3 weeks Heparin for DVT prophylaxis hosp and ID co-managing cont abx per ID dressing change in a few days Dispo per medicine
[2017-06-27] MEDS: Insulin GLARGINE(*) 1 UNITS UNIT SUBCUT SCH (17:27)
[2017-06-27] MEDS: Pramipexole TAB* 0.5 MG PO SCH (20:57)
[2017-06-27] MEDS: Gabapentin CAP(*) 300 MG PO SCH (20:57)
[2017-06-27] MEDS: Atorvastatin* 20 MG TAB PO SCH (20:58)
[2017-06-28] MEDS: Meropenem 500MG PREMIX(*) 500 MG/50 ML BAG IV SCH (01:32)
[2017-06-28] MEDS: HYDROmorphone INJ* 1 MG/ML CARPUJECT SYRINGE IV SLOW PU PRN ×2 (01:33→07:47)
[2017-06-28] MEDS: Ondansetron INJ* 2 MG/ML VIAL IV PRN (01:33)
[2017-06-28] MEDS: Insulin LISPRO* 1 UNITS UNIT SUBCUT SCH ×4 (01:42→12:16)
[2017-06-28] MEDS: oxyCODONE/Acetamin 5/325 MG* TAB PO PRN ×3 (04:09→14:50)
[2017-06-28] MEDS: Prochlorperazine TAB* 10 MG PO PRN ×2 (04:09→14:50)
[2017-06-28] MEDS: Metoprolol Tartrate IV* 1 MG/ML 5 ML VIAL IV SCH ×3 (04:09→15:57)
[2017-06-28] MEDS: Heparin VIAL(*) 5000 UNITS/ML VIAL (FIVE THOUSAND) SUBCUT SCH ×2 (05:06→14:18)
[2017-06-28] MEDS: Linezolid 600 MG IVPREMIX(*) 600 MG/300 ML BAG IVPB SCH (05:06)
[2017-06-28] MEDS: Metoclopramide IV* 5 MG/ML 2 ML VIAL IV SCH ×2 (07:41→11:26)
[2017-06-28] MEDS: Mometasone/Formoter 100/5 MDI INH SCH (07:43)
[2017-06-28] MEDS: Tiotropium CAP.INH* CAP.INH/18 MCG (USE ORDER SET !) INH SCH (07:43)
[2017-06-28 08:10] VITALS: BP 148/73
[2017-06-28] MEDS: Carvedilol TAB* 3.125 MG PO SCH (09:27)
[2017-06-28] MEDS: Aspirin EC Low Dose* 81 MG TAB.EC PO SCH (09:28)
[2017-06-28] MEDS: Ticagrelor* 90 MG TAB PO SCH (09:28)
[2017-06-28] MEDS: Docusate CAP* 100 MG PO SCH (09:29)
[2017-06-28] MEDS: Nystatin TOP POWDER* 15 GM BTL TOPICAL SCH ×2 (09:29→14:18)
[2017-06-28] MEDS: Lactobacillus Acidophilu (GG)* 1 CAP CAP PO SCH (09:30)
--- NOTE | 2017-06-28 10:09 | PN ---
Progress Note - Progress Note Date of Service: 06/28/17 SOAP: Subjective: CC: nausea HPI: 57 year old woman here with right vulvar abscess, left heel ulcer, abscess on CT, had I&D. Nausea better since bowel regimen, loose stool 3-4 times last 24 hrs. No abd pain. Left foot pain better with pain medicine. No fever or rash. Objective: [] Vital Signs Temp 36.7 C 06/28/17 07:41 Pulse 61 06/28/17 07:41 Resp 14 06/28/17 08:47 BP 148/73 06/28/17 07:41 Pulse Ox 99 06/28/17 08:00 Intake & Output 06/27/17 06/28/17 06/28/17 18:59 06:59 18:59 Intake Total 70 834 120 Output Total 400 Balance 70 434 120 Intake: IV Fluids 50 86 Meropenem 50 58 NS (0.9%) 28 IVPB 20 308 ABX - LINEZOLID 308 Meropenem 20 Oral 0 440 120 Output: Urine 400 Other: Estimated Void Medium # Bowel Movements 0 1 Estimated Stool Amount Large # Voids 1 Gen:Awake, no distress HEENT:PERRL,MMM Neck:Supple Heart:RRR no murmur Lungs:CTA BL Abd:decr BS, soft, non tender, non distended MSK: L foot casted Assessment: 1. R heel ulcer, abscess s/p I&D, culture neg while on zyvox 2. nausea, vomiting, resolving since treating constipation 3. diabetes with neuropathy 4. elev CRP ?foot infection or cystitis 5. E.coli bacteruria, could be contributing nausea and elev CRP Plan: 1. continue linezolid day 07/31 2. anti emetics, bowel regimen 3. dc meropenem 35 minutes floor time >50% face to face counseling regarding treatment of left foot infection and follow up plans.
[2017-06-28] MEDS: Enalapril TAB* 5 MG PO SCH (11:26)
[2017-06-28] MEDS: Scopolamine 1.5 mg* PATCH TRANSDERM SCH (15:57)
[2017-06-28] MEDS ORDERED: Linezolid TAB* 600 MG PO SCH (17:00)
--- NOTE | 2017-06-29 05:56 | DS ---
CC: Dr. Valdes, Dr. Damon, Dr. Hess * DISCHARGE SUMMARY: DATE OF ADMISSION: 06/16/17 DATE OF DISCHARGE: 06/28/17 PRIMARY CARE PROVIDER: Dr. Valdes INFECTIOUS DISEASE SPECIALIST: Dr. Damon. ORTHOPEDIST: Dr. Hess. DISCHARGE DIAGNOSES: 1. Left heel abscess, status post incision and drainage. 2. Vulvar abscess. 3. Uncontrolled type 2 diabetes. 4. Hyponatremia. 5. Recurrent nausea and vomiting, likely associated with diabetic gastroparesis. 6. Constipation. 7. Chronic anemia. 8. Escherichia coli urinary tract infection, not Mckeon catheter related, present on admission. SECONDARY DIAGNOSES: 1. Type 2 diabetes. 2. Coronary artery disease, status post coronary artery bypass grafting. 3. Peripheral vascular disease. 4. History of cerebrovascular accident. 5. Chronic kidney disease, stage 3. 6. Hypertension. 7. Hyperlipidemia. 8. Left subclavian stenosis status post stent. 9. 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 10. Restless leg syndrome. 11. Status post appendectomy. 12. Status post cholecystectomy. 13. Status post tonsillectomy. 14. Status post cervical and lumbar laminectomy. 15. Status post carotid endarterectomy. MEDICATION LIST: Home medication list: 1. Evolocumab 140 mg subcutaneously q.14 days. 2. Spiriva 1 capsule inhaled daily. 3. Ticagrelor 90 mg p.o. b.i.d. 4. Spironolactone 12.5 mg p.o. Mondays, Wednesdays, and Fridays. 5. Mirapex 5 mg p.o. at bedtime. 6. Nitroglycerin 0.4 mg sublingual q.5 minutes as needed for chest pain. 7. Dulera 100/5 one puff inhaled b.i.d. 8. Metolazone 5 mg p.o. daily 30 minutes prior to torsemide as needed for weight gain greater than 2 pounds. 9. Gabapentin 1800 mg p.o. at bedtime. 10. EpiPen 0.3 mg IM as needed for allergies. 11. Glucagon 1 mg IM once as needed for glucose less than 60. 12. Enalapril 5 mg p.o. daily at noon. 13. Atorvastatin 20 mg p.o. at bedtime. 14. Albuterol/ipratropium nebulized t.i.d. as needed for shortness of breath. 15. Carvedilol 4.68 mg at bedtime and 1.56 mg p.o. q.a.m. 16. Culturelle 1 capsule p.o. daily. 17. Heparin flush to her port 3 mL IV flush daily. 18. Colace 100 mg p.o. b.i.d. 19. Lantus 30 units subcutaneously q.p.m. 20. Aspirin 81 mg p.o. daily. 21. Torsemide 20 mg p.o. daily as needed for weight gain greater than 2 pounds. New Medications: 1. MiraLAX 17 g p.o. daily as needed for constipation. 2. Nystatin powder to affected areas t.i.d. 3. Metoclopramide 5 mg p.o. before meals. 4. Linezolid 600 mg p.o. q.12 hours for 14 more days. 5. Oxycodone/acetaminophen 5/325 mg 1 to 2 tablets p.o. q.4 hours p.r.n. pain, MDD 8 tablets, dispense 30 tablets. 6. The [facility] prescription monitoring program was consulted, and the patient last received prescriptions for oxycodone in December 2016. The reference number is [id number]. HOSPITAL COURSE: Mrs. Galarza is a 57-year-old lady with a complex past medical history as stated above that presented to the emergency room with complaints of chills, fever, and vomiting, unable to tolerate her oral antibiotics. A week prior to admission, the patient had noticed a wound to her left lower extremity stump. She follows closely with Dr. Hess and the impression was that this was likely secondary to her prosthetic rubbing on her stump. She noticed that the area had some black tissue and was seen by Dr. Hess as an outpatient and she was supposed to follow up with him on the day of admission; but unfortunately she developed fever, nausea. Her glucose was markedly elevated and she came to the emergency room for further evaluation. Also, she had a vulvar abscess that was being treated as outpatient. For more details about her presentation, I refer you to her history and physical. She was admitted to the medical floor under the impression of a wound of her surgical stump with possible infection and also a vulvar abscess. She was started on linezolid. She had an ankle x-ray that showed osteopenia without definite abnormal erosion or fracture, fusion of the tibia to the remnant of the calcaneus. CT of the lower extremities showed constellation of findings consistent with cellulitis and an associated small abscess collection immediately deep through the superficial soft tissue ulcer at the heel. No compelling CT evidence for osteomyelitis. She was seen in consultation by Orthopedics (Dr. Aguirre), and he discussed the case with Dr. Hess who approved removal of her cast and inspection of the wound. Initially, the recommendation was for dressing changes and the next days she was seen by Dr. Hess. On June 21, she was taken to the OR where she underwent biopsy and left calcaneus debridement and drainage of an abscess. Pathology from the bone showed no evidence of acute osteomyelitis. Wound cultures showed no growth. The patient was also seen by Infectious Disease ( Dr. Damon) and he agreed with treatment with linezolid. The patient continued to have nausea and vomiting and this has been a chronic issue with her usually when she has an infection. I suspect she probably has some degree of diabetic gastroparesis and that worsens when she has an infection. There was a limited examination performed without oral or intravenous contrast and it showed no acute radiologic findings, only moderate stool in the right colon. The patient was continued on antinausea medications and initially she was resistant to start a bowel regimen, but as her constipation persisted the patient was agreeable with suppositories, enemas, and laxatives. As she started to have bowel movements, her nausea progressively improved, and she was able to tolerate an oral diet and oral medications again. The patient was felt to be medically stable for discharge. As per Dr. Hess, the patient will be nonweightbearing on the left lower extremity for 2 to 3 weeks at least. The wound care will be provided by Dr. Hess's office. She was seen by Physical Therapy and although she has difficulty moving with the nonweightbearing status she states that she has done it before. She has a scooter at home and she has 5 steps to get inside her home, but she states that she usually sits down and just scoots upstairs. So she thinks that she will do well with her 's health. She will be discharged today to follow up with Dr. Hess and Dr. Damon in 1 to 2 weeks. PHYSICAL EXAMINATION: Vital Signs: Temperature 98.0, heart rate 68, respiratory rate 16, oxygen saturation 99% on room air, and blood pressure is 148/73. General: The patient is a pleasant middle-aged lady sitting up in bed, in no acute distress. CVS: Normal S1 and S2. Regular rate and rhythm. Chest: Breath sounds present bilaterally with no added sounds. Abdomen is soft, nontender, and nondistended. Bowel sounds are present. Extremities, no edema. She has a clean dressing intact to her left lower extremity. Neuro: She is alert, awake, and oriented x3. Able to move all 4 extremities. DIET: Heart healthy consistent carb diet. ACTIVITY: As tolerated. Nonweightbearing to the left lower extremity. DISPOSITION: To home. STATUS WHILE IN THE HOSPITAL: Inpatient. I believe one of her major issues is her uncontrolled diabetes. The patient's last A1c done on April 2017 was 15. I believe the patient is compliant with her medications at home, but I think her major issue is her diet. While in the hospital following the hospital diet, she requires less insulin and we can keep her glucose less than 130 easily. Usually the meals brought in by her are fast food, usually [employer] or [employer], and I believe that is the base of her diet as an outpatient. The patient was advised multiple times and although she states that she is compliant, her A1c tells me otherwise. She was once again referred to the [facility] to continue the efforts to control her diabetes, as I believe she will always return with some sort of infection until we get her diabetes controlled. Please keep in mind this is a summarized version of this patient's prolonged hospital stay. If you need more information, please feel free to call me at [phone] or please obtain the full medical records. Approximately 50 minutes was spent to complete this discharge. [id number]/[facility] #: [id number] ABNER
[2017-06-30] MEDS ORDERED: Evolocumab [Repatha Sureclick] 140 MG SC SCH (09:00)
== END 2017-06-28 15:45 | disposition home health service (06) | DRG 464 ==
LOC: ED 12:52 → MED 16:46
PROVIDERS: ADMIT Hospitalist; ATTEND Internal Medicine
PROC: 3E0234Z Introduction of Serum, Toxoid and Vaccine into Muscle, Percutaneous Approach (ICD-10-PCS; 2017-06-18)
PROC: 0QBM0ZX Excision of Left Tarsal, Open Approach, Diagnostic (ICD-10-PCS; 2017-06-21)
PROC: 0JBR0ZZ Excision of Left Foot Subcutaneous Tissue and Fascia, Open Approach (ICD-10-PCS; principal; 2017-06-21 14:00)
DX: T87.44 Infection of amputation stump, left lower extremity (principal); L02.612 Cutaneous abscess of left foot; I38 Endocarditis, valve unspecified; I42.9 Cardiomyopathy, unspecified; I13.0 Hypertensive heart and chronic kidney disease with heart failure and stage 1 through stage 4 chronic kidney disease, or unspecified chronic kidney disease; I50.9 Heart failure, unspecified; L03.116 Cellulitis of left lower limb; M86.9 Osteomyelitis, unspecified; N39.0 Urinary tract infection, site not specified; E87.1 Hypo-osmolality and hyponatremia; N76.4 Abscess of vulva; L97.421 Non-pressure chronic ulcer of left heel and midfoot limited to breakdown of skin; E11.22 Type 2 diabetes mellitus with diabetic chronic kidney disease; E11.51 Type 2 diabetes mellitus with diabetic peripheral angiopathy without gangrene; E04.9 Nontoxic goiter, unspecified; E78.5 Hyperlipidemia, unspecified; E11.36 Type 2 diabetes mellitus with diabetic cataract; N18.3 Chronic kidney disease, stage 3 (moderate); I25.10 Atherosclerotic heart disease of native coronary artery without angina pectoris; G25.81 Restless legs syndrome; G47.30 Sleep apnea, unspecified; J44.9 Chronic obstructive pulmonary disease, unspecified; M19.90 Unspecified osteoarthritis, unspecified site; M79.7 Fibromyalgia; M81.0 Age-related osteoporosis without current pathological fracture; M41.9 Scoliosis, unspecified; E11.69 Type 2 diabetes mellitus with other specified complication; H91.91 Unspecified hearing loss, right ear; G43.909 Migraine, unspecified, not intractable, without status migrainosus; E11.42 Type 2 diabetes mellitus with diabetic polyneuropathy; F41.9 Anxiety disorder, unspecified; F32.9 Major depressive disorder, single episode, unspecified; F17.210 Nicotine dependence, cigarettes, uncomplicated; E11.43 Type 2 diabetes mellitus with diabetic autonomic (poly)neuropathy; K31.84 Gastroparesis; D53.9 Nutritional anemia, unspecified; E11.65 Type 2 diabetes mellitus with hyperglycemia; B96.20 Unspecified Escherichia coli [E. coli] as the cause of diseases classified elsewhere; K59.00 Constipation, unspecified; Y69 Unspecified misadventure during surgical and medical care; B37.2 Candidiasis of skin and nail; E11.621 Type 2 diabetes mellitus with foot ulcer; E87.5 Hyperkalemia; M85.879 Other specified disorders of bone density and structure, unspecified ankle and foot; Z23 Encounter for immunization; Z86.73 Personal history of transient ischemic attack (TIA), and cerebral infarction without residual deficits; Z91.030 Bee allergy status; Z88.5 Allergy status to narcotic agent; Z88.0 Allergy status to penicillin; Z88.2 Allergy status to sulfonamides; Z88.8 Allergy status to other drugs, medicaments and biological substances; Z88.1 Allergy status to other antibiotic agents; Z95.810 Presence of automatic (implantable) cardiac defibrillator; Z86.74 Personal history of sudden cardiac arrest; I25.2 Old myocardial infarction; Z95.1 Presence of aortocoronary bypass graft; Z90.49 Acquired absence of other specified parts of digestive tract; Z86.711 Personal history of pulmonary embolism; Z99.81 Dependence on supplemental oxygen; Y92.009 Unspecified place in unspecified non-institutional (private) residence as the place of occurrence of the external cause; Z79.4 Long term (current) use of insulin; Z79.82 Long term (current) use of aspirin; Z79.01 Long term (current) use of anticoagulants; Z98.1 Arthrodesis status; Z89.422 Acquired absence of other left toe(s); Z95.5 Presence of coronary angioplasty implant and graft
CPT/HCPCS: 36415; 74176; 80048; 80053; 81003; 81015; 83605; 83880; 85025; 85027; 85610; 85730; 86140; 87040; 87070; 87073; 87077; 87086; 87186; 87205; 88304; 88311; 90686; 94640; 94760; 99406; A9270-GY; J0744; J0780; J1170; J1450; J1642; J1644; J2001; J2020; J2250; J2270; J2405; J2704; J2765; J3010; Q0164; Q9967

== ENCOUNTER 2017-06-30 15:33 | Inpatient (IN) | payer MEDICARE, MEDICAID ==
[2017-06-30 17:12] LABS: Hematocrit 24 % (35-47); Hemoglobin 7.6 g/dl (12.0-16.0); Mean Corpuscular HGB Conc 32 g/dl (31-36); Mean Corpuscular Hemoglobin 29 pg (27-31); Mean Corpuscular Volume 91 fL (80-97); Mean Platelet Volume 8 um3 (7.4-10.4); Red Blood Count 2.61 10^6/ul (4.0-5.4); Red Cell Distribution Width 18 % (10.5-15); White Blood Count 10.3 10^3/ul (3.5-10.8)
--- NOTE | 2017-06-30 17:13 | RAD ---
INDICATION: Shortness of breath since yesterday COMPARISON: Most recent comparison chest x-rays dated April 25, 2017 TECHNIQUE: PA and lateral views of the chest were obtained. FINDINGS: Stable postoperative findings include a left internal jugular vein Mediport with the tip at the superior vena cava, a left-sided cardiac pacemaker with 2 cardiac leads and sternotomy wires. The heart and mediastinum are normal in size and contour. The pulmonary vasculature is slightly more engorged than the previous chest x-ray. There is faint hazy density overlying the bilateral costophrenic angles. The lungs are otherwise grossly clear. Visualized bones are normal for the patient's age. There is no radiographic evidence of free air beneath the diaphragm IMPRESSION: IN THE CORRECT CLINICAL SETTING THE CHEST X-RAY FINDINGS COULD BE COMPATIBLE WITH MILD EXACERBATION OF CONGESTIVE HEART FAILURE.
[2017-06-30 17:26] LABS: ALT 8 U/L (7-52); AST 11 U/L (13-39); Albumin 2.5 g/dL (3.2-5.2); Alkaline Phosphatase 146 U/L (34-104); BUN/Creatinine Ratio 34.7 (8-20); Blood Urea Nitrogen 33 mg/dL (6-24); C Reactive Protein 3.19 mg/L (< 5.00); CO2 Carbon Dioxide 29 mmol/L (22-32); Calcium 8.3 mg/dL (8.6-10.3); Chloride 99 mmol/L (101-111); EGFR African American 78.3 (>60); EGFR Non-African American 60.9 (>60); Globulin 2.8 g/dL (2-4); Glucose 229 mg/dL (70-100); Sodium 128 mmol/L (133-145); Total Protein 5.3 g/dL (6.4-8.9)
[2017-06-30] MEDS ORDERED: Ondansetron INJ* 2 MG/ML VIAL IV ONE (17:26)
[2017-06-30] MEDS ORDERED: Furosemide IV* 10 MG/ML 2 ML VIAL (20 MG) IV ONE (17:26)
[2017-06-30 17:29] LABS: Troponin I 0.03 ng/mL (<0.04)
[2017-06-30] MEDS ORDERED: Bumetanide IV* 0.25 MG/ML 4 ML VIAL SLOW PUSH STA (18:30)
[2017-06-30] MEDS ORDERED: Polyethylene Glycol 3350* 17 GM PACKET PO PRN (18:31)
[2017-06-30] MEDS ORDERED: Metolazone TAB* 5 MG PO PRN (18:31)
[2017-06-30] MEDS ORDERED: Albuterol/Ipratropium NEB.SOL* Albuterol 2.5 MG/Ipratropium 0.5 MG 3 ML INH PRN (18:31)
[2017-06-30] MEDS ORDERED: Sodium Polystyrene ORAL.SOL* 15 GM/60 ML BTL PO ONE (20:13)
[2017-06-30 20:43] LABS: Urine Bacteria Absent (Absent)
[2017-06-30 20:45] LABS: Urine Bilirubin Negative (Negative); Urine Glucose 3+(>=500 mg/dL) (Negative); Urine Nitrite Negative (Negative)
[2017-06-30] MEDS: Mometasone/Formoter 100/5 MDI INH SCH (20:47)
[2017-06-30] MEDS: Bumetanide IV* 0.25 MG/ML 4 ML VIAL SLOW PUSH SCH (20:56)
[2017-06-30] MEDS ORDERED: Gabapentin TAB(NF) 600 MG PO SCH (22:00)
[2017-06-30] MEDS: Insulin GLARGINE(*) 1 UNITS UNIT SUBCUT SCH (22:00)
[2017-06-30] MEDS: oxyCODONE/Acetamin 5/325 MG* TAB PO PRN (22:00)
[2017-06-30] MEDS: Carvedilol TAB* 3.125 MG PO SCH (22:02)
[2017-06-30] MEDS: Linezolid TAB* 600 MG PO SCH (22:03)
[2017-06-30] MEDS: Atorvastatin* 20 MG TAB PO SCH (22:03)
[2017-06-30] MEDS: Ticagrelor* 90 MG TAB PO SCH (22:04)
[2017-07-01] MEDS: Gabapentin CAP(*) 400 MG PO SCH ×2 (01:07→21:12)
--- NOTE | 2017-07-01 03:22 | HP ---
HISTORY AND PHYSICAL: DATE OF ADMISSION: 06/30/17 CHIEF COMPLAINT: Respiratory distress and acute increase in weight, low-grade fevers, nausea. PRIMARY CARE PHYSICIAN: Dr. Valdes. HISTORY OF PRESENT ILLNESS: Mr. Galarza is a 57-year-old female with complex past medical history as listed above that presents to the Emergency with progressive shortness of breath, low-grade fevers, nausea, and sensation of chest pressure along with progressive increase in weight. The patient was recently hospitalized between 06/16/17 and 06/28/17 for left heel abscess and vulvar abscess and E. coli UTI infection. She had noticed a baseline weight of approximately 144 pounds prior to admission, noticed a gain of 5 pounds since discharge, and presentation weight of approximately 160 pounds. Here, the patient had noticed some shortness of breath during the hospitalization but not to the extent of her presenting symptoms. In the ED, the patient was noticeably tachypneic, laboring for breath with extended conversation and markedly volume overloaded. BNP was elevated at 1233. Chest x- ray was consistent with pulmonary congestion. The patient had a history of anemia with hemoglobin of 10 on 06/23/17 but with many values in between 8 and 9.5 during hospital course and then in the ED here at 7.6 hemoglobin, over 24 hematocrit. The patient denies any hematochezia, melena, hematuria. The patient's last echo was on with EF of 30% to 35%, reduced from prior study with moderate mitral valve regurgitation. The patient had an EKG in the emergency room demonstrating ventricular pacing, heart rate 97. Initial troponin 0.01. The patient usually takes metolazone 5 mg 30 minutes prior to torsemide 20 mg ( which has been stable for at least a year per the patient) but does not recall receiving this medication during her last hospital stay. The patient's abscesses included treatment with linezolid 21-day course, currently approximately day 16 and the patient additionally treated with meropenem for E. coli UTI during last hospital course and is followed by Infectious Disease, Dr. Damon. The patient was followed up with Dr. Hess and on 06/21/17 was taken to the OR with biopsy of left calcaneus debridement and drainage of abscess. Bone pathology showed no acute evidence of acute osteomyelitis with wound cultures showing no growth. Of note was chronic nausea and vomiting whenever she had infection and thought that she had a degree of diabetic gastroparesis, so initiation of Reglan was initiated on hospital discharge. The patient with history of MRSA nares colonization. The patient was nonweightbearing for the left lower extremity for 2 to 3 weeks post discharge and was not as ambulatory at home. Blood pressure was elevated to 195/92 initially, afebrile, heart rate in the 80s to 90s. Other notable labs included potassium 6.0, sodium 128, creatinine 0.95 lower than previous recordings, lactic acid 1.7, troponin of 0.03, BNP 1233, alk phos 146, white 10.3. The patient was admitted to the medicine telemetry floor for acute CHF exacerbation. PAST MEDICAL HISTORY: Type 2 diabetes, uncontrolled on insulin, last A1c April 2017; coronary artery disease, status post CABG; peripheral vascular disease; history of CVA; chronic kidney disease, stage 3; hypertension; hyperlipidemia; left subclavian stenosis, status post stent; left foot osteomyelitis, status post forefoot amputation; restless legs syndrome. PAST SURGICAL HISTORY: Includes appendectomy, cholecystectomy, tonsillectomy, cervical and lumbar laminectomy, carotid endarterectomy. MEDICATIONS: Home medication list includes: 1. Evolocumab 140 mg subcutaneous q.14 days. 2. Spiriva 1 capsule inhaled daily. 3. Ticagrelor 90 mg p.o. b.i.d. 4. Spironolactone 12.5 mg p.o. Wednesday, Wednesday, and Wednesday. 5. Mirapex 5 mg p.o. at bedtime. 6. Nitroglycerin 0.4 mg sublingual q.5 minutes p.r.n. for chest pain. 7. Dulera 100/5 one puff inhaled b.i.d. 8. Metolazone 5 mg p.o. daily 30 minutes before torsemide p.r.n. for weight gain greater than 2 pounds. 9. Gabapentin 1800 mg p.o. at bedtime. 10. EpiPen 0.3 mg IM as needed for allergic reaction. 11. Glucagon 1 mg IM p.r.n. for glucose less than 60. 12. Enalapril 5 mg p.o. daily at noon. 13. Atorvastatin 20 mg p.o. q.h.s. 14. Albuterol/ipratropium nebulized t.i.d. as needed for shortness of breath. 15. Carvedilol 4.68 mg at bedtime and 1.56 mg p.o. q.a.m. 16. Culturelle 1 capsule p.o. daily. 17. Colace 100 mg p.o. b.i.d. 18. Heparin flush to Mediport 3 mL IV flush daily. 19. Lantus 30 units q.p.m. 20. Aspirin 81 mg p.o. daily. 21. Torsemide 20 mg p.o. daily as needed for weight gain greater than 2 pounds. 22. MiraLAX 17 g p.o. daily. 23. Nystatin powder t.i.d. 24. Reglan 5 mg p.o. before meals. 25. Linezolid 600 mg p.o. daily. 26. Percocet 5/325 mg 1 to 2 tablets p.o. q.4 hours p.r.n. for pain (of note was not actually taking at home). ALLERGIES TO MEDICATIONS: Include CEPHALOSPORIN, PENICILLIN, SULFA, BEE VENOM, BENADRYL, MEROPENEM, VANCOMYCIN, CODEINE, BEE STINGS. FAMILY HISTORY: Unknown as she was adopted. SOCIAL HISTORY: Medical surrogate is , Genaro Galarza. The patient is current smoker, nondrinker. REVIEW OF SYSTEMS: The patient attests to chest pain, shortness of breath, dyspnea on exertion, nausea, vomiting, leg swelling, otherwise 14-point review of systems negative. PHYSICAL EXAMINATION GENERAL: Moderate respiratory distress, especially with extended talking. HEENT: Atraumatic, normocephalic. Extraocular motions intact. Anicteric sclerae. Oral mucosa, no lesions. NECK: Supple. No lymphadenopathy. LUNGS: With bilateral rales at bases. No wheezing or rhonchi. HEART: Regular rate. Normal S1, S2. No murmurs, rubs, or gallops appreciated. ABDOMEN: Soft, obese, nontender, nondistended. EXTREMITIES: Warm, well perfused. Left leg in bandage, 2+ pitting edema up to thighs and 1+ in forearms/anasarca. NEUROLOGIC: Awake, alert, and oriented x3. No gross focal deficits. Cranial nerves II through XII intact. SKIN: No rashes appreciated. DIAGNOSTIC STUDIES/LAB DATA: Labs and imaging studies as mentioned in HPI. ASSESSMENT AND PLAN: 1. The patient is a 57-year-old female with many comorbidities with recent admission for left heel abscess, vulvar abscess, Escherichia coli urinary tract infection, who presents with progressive shortness of breath, rapid weight increase with anasarca, likely in the setting of reduced diuretic use of her metolazone while hospitalized, but unclear even then why the rapid deterioration. We will repeat her echocardiogram, last one in October. Trend troponins, initial 0.03. EKG without ischemic changes initially, to continue telemonitor. We will aggressively diurese her with Bumex 2 mg q.6 hours, continuation of her 5 mg metolazone daily (with consideration to increase to b.i.d.). Strict I's and O's, daily weights. Supplemental oxygen as needed with low threshold for BiPAP with significant respiratory distress. We will continue her course of linezolid. Followup UA and reflex urine culture given her history of Escherichia coli urinary tract infection greater than 100,000 units last on 06/22/17, which was resistant to all but meropenem, Macrobid, cefepime, and gentamicin. Low threshold to add gram- negative coverage, but we will wait for UA. Given the need for massive diuresis, we will also place Mckeon as the patient seems to have decreased urinary output with hopeful removal within next 18 to 24 hours. The patient with history of methicillin- resistant Staphylococcus aureus nares positive, culture, and will be in contact isolation precaution. 2. For the patient's anemia, which is acute on chronic, monitor for any hematochezia, melena, get q.12 hours of CBCs initially, consider haptoglobin and LDH. Get INR. Consider type and screen with concern for blood products for hemoglobin below 7. 3. Hyperkalemia, K 6.0. EKG without peaked T waves. We will give 1 g calcium gluconate, Kayexalate 30 g p.o., and aggressive diuresis as above with BMP monitoring in the a.m. and daily thereafter. 4. Peripheral vascular disease. Continue aspirin, Brilinta, statin. 5. Chronic kidney disease. Creatinine actually improved from baseline. We will monitor BMP daily with aggressive diuresis. Unlikely that her anasarca is related to kidney failure. 6. Chronic obstructive pulmonary disease. Continue home medications and p.r.n. albuterol. 7. History of cerebrovascular accident. Continue secondary prevention. 8. Restless legs syndrome. Continue Mirapex. 9. Hypertension. Continue home medications with addition of aggressive diuresis with Bumex as above. Hold home torsemide 20 mg daily. 10. Hyperlipidemia. Continue atorvastatin and Repatha q.14 days. 11. Coronary artery disease. Continue Coreg, Brilinta, aspirin, and statin. 12. History of heel abscess. Monitor. Continue linezolid. 13. DVT prophylaxis. Heparin 5000 t.i.d. 14. Diet. Carb consistent. 15. Sliding scale insulin, repeat A1c for her diabetes mellitus along with 30 units Lantus q.h.s. 16. Status is full code. [id number]/[facility] #: [id number] MTDD
[2017-07-01] MEDS: Bumetanide IV* 0.25 MG/ML 4 ML VIAL SLOW PUSH SCH ×4 (03:25→21:15)
[2017-07-01] MEDS ORDERED: Dextrose 50% Syringe 50 ML* 25 GM/50 ML SYRINGE IV PUSH PRN ×2 (04:36→08:59)
[2017-07-01 06:05] LABS: Hematocrit 23 % (35-47); Hemoglobin 7.6 g/dl (12.0-16.0); Mean Corpuscular HGB Conc 33 g/dl (31-36); Mean Corpuscular Hemoglobin 30 pg (27-31); Mean Corpuscular Volume 90 fL (80-97); Mean Platelet Volume 8 um3 (7.4-10.4); Red Blood Count 2.57 10^6/ul (4.0-5.4); Red Cell Distribution Width 18 % (10.5-15); White Blood Count 6.8 10^3/ul (3.5-10.8)
[2017-07-01 06:21] LABS: Calcium 8.5 mg/dL (8.6-10.3); EGFR African American 73.8 (>60); EGFR Non-African American 57.4 (>60); Magnesium 1.6 mg/dL (1.9-2.7)
[2017-07-01 06:26] LABS: Potassium 5.4 mmol/L (3.5-5.0)
[2017-07-01] MEDS: Insulin LISPRO* 1 UNITS UNIT SUBCUT SCH ×4 (08:00→22:14)
[2017-07-01] MEDS: Tiotropium CAP.INH* CAP.INH/18 MCG (USE ORDER SET !) INH SCH (08:35)
[2017-07-01] MEDS: Mometasone/Formoter 100/5 MDI INH SCH ×2 (08:35→20:17)
[2017-07-01] MEDS ORDERED: Spiriva Inhaler DEVICE* 1 EACH DEVICE ONE (09:00)
[2017-07-01] MEDS: Docusate CAP* 100 MG PO PRN (09:34)
[2017-07-01] MEDS: Aspirin EC Low Dose* 81 MG TAB.EC PO SCH (09:35)
[2017-07-01] MEDS: Carvedilol TAB* 3.125 MG PO SCH ×2 (09:36→21:14)
[2017-07-01] MEDS: Linezolid TAB* 600 MG PO SCH ×2 (09:38→21:14)
[2017-07-01] MEDS: Ticagrelor* 90 MG TAB PO SCH ×2 (09:39→21:14)
[2017-07-01] MEDS: oxyCODONE/Acetamin 5/325 MG* TAB PO PRN ×2 (09:40→15:06)
[2017-07-01] MEDS ORDERED: Perflutren Lipid Microsphere* 3 ML VIAL ONE (10:44)
[2017-07-01] MEDS ORDERED: Insulin LISPRO* 1 UNITS UNIT SUBCUT SCH (11:30)
[2017-07-01] MEDS ORDERED: Magnesium Sulfate 2 GM IV* 2 GM/50 ML BAG IVPB ONE (12:01)
--- NOTE | 2017-07-01 12:06 | ECHO ---
Patient: DAVID MESA [facility] Rec#: [id number] : 1960 Date: 07/01/2017 Age: 57y Height: 132.08 cm / 52.0 in Weight: 72.57 kg / 159.9 lbs Sex: F BSA: 1.53 Room#: 438 Admit Date#: 06/30/2017 Type: Inpatient Referring: Gurvinder Proctor Reading: Brien Cabrera MD Financial Reporting Specialist: Amy Gómez RDCS CC: Rolando Johnson MD CC: Moises Valdes MD Transthoracic Echocardiogram Indication: CHF BP: 162/81 HR: 83 Rhythm: Paced Findings History: HTN,HLD,CAD,CVA,TN,s/pCABG,PVD,s/p AICD implant,CKDosteomyelitis left foot, s/p CEA. Technical Comments: The study is technically limited due to poor parasternal windows. The study is technically limited due to patient body habitus. 6ml Definity used for border detection. The study is technically limited due to the patient's smoking history. Left Ventricle: The left ventricular chamber size is normal. There is a focal wall motion abnormality present.There is moderate to severe hypokinesis of the mid to distal anterior, mid to distal anteroseptal, apical, and distal inferior wall. There is moderate to severely decreased left ventricular systolic function. The estimated ejection fraction is 35-40%. Post surgical hypokinesis of the interventricular septum is observed consistent with coronary artery bypass. Abnormal left ventricular diastolic function is observed. Left Atrium: The left atrium is mild to moderately dilated. Right Ventricle: The right ventricular cavity size is normal. The right ventricular global systolic function is low normal. The septum has abnormal paradoxical motion consistent with post-operative pressure. A pacemaker wire is visualized in the right ventricle. Right Atrium: The right atrial cavity size is normal. A pacemaker wire is visualized in the right atrium. Aortic Valve: The aortic valve is trileaflet. The aortic valve leaflets are mildly thickened. There is no evidence of aortic regurgitation. There is no evidence of aortic stenosis. Mitral Valve: The mitral valve leaflets are mildly thickened. There is moderate mitral regurgitation. The mitral regurgitant jet is eccentric. There is no evidence of mitral stenosis. Tricuspid Valve: The tricuspid valve leaflets are normal. There is mild to moderate tricuspid regurgitation. The tricuspid regurgitant jet is directed toward the septum. There is evidence of moderate pulmonary hypertension. There is no tricuspid stenosis. Pulmonic Valve: The pulmonic valve appears normal. There is no evidence of pulmonic regurgitation. There is no pulmonic stenosis. Pericardium: The pericardium appears normal. Aorta: There is no dilatation of the ascending aorta. The aortic arch is not well visualized. There is no dilation of the aortic root. Pulmonary Artery: The main pulmonary artery appears normal. Venous: The venous system is not well visualized. Contrast: Definity was used to optimize study. 6ml utilized. Intravenous contrast was used to enhance endocardial border definition. Conclusions Suboptimal study for interpretation as per the comment below. The study is technically limited due to poor parasternal windows. The study is technically limited due to patient body habitus. IV contrast used for LV function analysis. The study is technically limited due to the patient's smoking history. There is a focal wall motion abnormality present.There is moderate to severe hypokinesis of the mid to distal anterior, mid to distal anteroseptal, apical, and distal inferior wall. There is moderate to severely decreased left ventricular systolic function. The estimated ejection fraction is 35-40%. The left atrium is mild to moderately dilated. There is moderate mitral regurgitation. There is mild to moderate tricuspid regurgitation. There is evidence of moderate pulmonary hypertension. Compared to report of study from 12/02/2016 the overall LV systolic function is mildly improved (was 30-35 %). The degree of pulmoanry HTN has increased (was as normal on last study). Measurements Name Value Normal Range RVIDd (AP) 2D 2.9 cm (0.9 - 2.6) RVDdMajor (2D) 3.5 cm (2.2 - 4.4) RAd ISD 4CH 4.8 cm (3.4 - 4.9) RA (A4C)W 4 cm (2.9 - 4.6) IVSd (2D) 1 cm (0.6 - 1) LVPWd (2D) 1.5 cm (0.6 - 1) LVIDd (2D) 4.8 cm (3.6 - 5.4) LVIDs (2D) 4.3 cm - LV FS (2D) 10 % (25 - 45) Aortic Annulus 2 cm (1.4 - 2.6) Ao root diameter (2D) 2.8 cm (2.1 - 3.5) Ascending Ao 2.4 cm (2.1 - 3.4) LA dimension (AP) 2D 4.2 cm (2.3 - 3.8) LAd ISD 4CH 5.7 cm (2.9 - 5.3) LA ISD 4CH W 4.5 cm (2.5 - 4.5) Name Value Normal Range LA ESV SP 4CH (A/L) 65 ml - LA ESV SP 2CH (A/L) 79 ml - LA ESV BP (A/L) 74 ml - LA ESV BP (A/L) index 48.58 ml/m2 - LA ESV SP 4CH (MOD) 60 ml - LA ESV SP 2CH (MOD) 74 ml - Name Value Normal Range MV E-wave Vmax 1.1 m/sec - MV deceleration time 121 msec - MV A-wave Vmax 0.9 m/sec - MV E:A ratio 1.23 ratio - LV septal e' Vmax 0.05 m/sec - LV lateral e' Vmax 0.06 m/sec - LV E:e' septal ratio 22 ratio - LV E:e' lateral ratio 18.33 ratio - Name Value Normal Range AV Vmax 1.5 m/sec - AV VTI 29.7 cm - AV peak gradient 8.46 mmHg - AV mean gradient 4.2 mmHg - LVOT Vmax 0.9 m/sec - LVOT VTI 20.1 cm - LVOT peak gradient 3.51 mmHg - LVOT mean gradient 1.68 mmHg - Name Value Normal Range TR Vmax 3.3 m/sec - TR peak gradient 44 mmHg - RAP 8 mmHg - RVSP 52 mmHg - Name Value Normal Range PV Vmax 1 m/sec - PV peak gradient 3.67 mmHg -
--- NOTE | 2017-07-01 13:52 | ED ---
Carlos Enrique Wallace Angela, scribed for Moises Shaw MD on 06/30/17 at 1556 . Shortness of Breath - HPI Summary HPI Summary: This pt is a 57 y/o female BIBA [facility] c/o SOB and nausea since yesterday. Pt notes that she has gained 5 lbs overnight from retaining liquids. She additionally c/o right lower back pain since yesterday in the evening. Pt denies chest pain, cough, fever, vomiting. She has no PMHx of kidney stones. PMHx includes CAD s/p CABG x3, HTN, HLD, left foot osteomyelitis s/p amputation. Pt surgery on left foot on 06/21/17. PT HAD SURGERY ON LEFT FOOT 06/21/17 - History of Current Complaint Time Seen by Provider: 06/30/17 15:46 Hx Obtained From: Patient Onset/Duration: Lasting Days - 1, Still Present Timing: Constant - Allergy/Home Medications Allergies/Adverse Reactions: Allergies Allergy/AdvReac Type Severity Reaction Status Date / Time Cephalosporins Allergy Severe Shortness Verified 04/25/17 14:50 of Breath Penicillins Allergy Intermediate Hives Verified 04/25/17 14:50 Sulfa Drugs Allergy Intermediate Hives Verified 04/25/17 14:50 Bee Venom Allergy Swelling Verified 04/25/17 14:50 Of Face,Lips,& Throat Diphenhydramine Allergy Difficulty Verified 04/25/17 14:50 Breathing Meropenem Allergy Diarrhea Verified 04/25/17 14:50 Vancomycin Allergy Hives Verified 04/25/17 14:50 Codeine AdvReac Intermediate Vomiting Verified 04/25/17 14:50 bee sting Allergy Severe Hives, Uncoded 04/25/17 14:50 CLOSES UP THROAT PMH/Surg Hx/FS Hx/Imm Hx Endocrine/Hematology History: Reports: Hx Anticoagulant Therapy, Hx Blood Transfusions, Hx Diabetes, Hx Thyroid Disease - Goiter, Hx Anemia, Other Endocrine/Hematological Disorders - anemia Denies: Hx Systemic Lupus Erythematosus Cardiovascular History: Reports: Hx Angioplasty, Hx Auto Implanted Cardiovert Defib, Hx Cardiac Arrest, Hx Congestive Heart Failure, Hx Coronary Artery Disease - CABGx3, Hx Hypercholesterolemia, Hx Hypertension, Hx Myocardial Infarction, Hx Pacemaker/ICD - 2016 - ICD, Hx Peripheral Vascular Disease, Hx Valvular Heart Disease - "Leaky valve", Other Cardiovascular Problems/Disorders - cardiomyopathy Denies: Hx Angina Respiratory History: Reports: Hx Asthma, Hx Chronic Bronchitis, Hx Chronic Obstructive Pulmonary Disease (COPD), Hx Pneumonia, Hx Pulmonary Edema, Hx Pulmonary Embolism, Hx Seasonal Allergies, Hx Sleep Apnea, Other Respiratory Problems/Disorders - respiratory failure, uses home oxygen GI History: Reports: Hx Gall Bladder Disease Denies: Hx Ulcer, Other GI Disorders History: Reports: Hx Chronic Renal Failure - CKD Stage 3, Other Problems/ Disorders - 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 Denies: Hx Dialysis, Hx Renal Disease Musculoskeletal History: Reports: Hx Arthritis, Hx Back Problems, Hx Fibromyalgia, Hx Osteoporosis, Hx Scoliosis, Other Musculoskeletal History - L foot amputaion, restless leg syndrome, osteomylitis Denies: Hx Rheumatoid Arthritis Sensory History: Reports: Hx Cataracts, Hx Contacts or Glasses, Hx Vision Problem, Hx Hearing Problem - R ear numbness and decreased hearing r/t TIA per pt Denies: Hx Hearing Aid Opthamlomology History: Reports: Hx Cataracts, Hx Contacts or Glasses, Hx Vision Problem Neurological History: Reports: Hx Migraine, Hx Nerve Disease - Diabetic Periperal Neuropathy, Hx Seizures, Hx Transient Ischemic Attacks (TIA), Other Neuro Impairments/Disorders - diabetic neuropathy Denies: Hx Dementia Psychiatric History: Reports: Hx Anxiety, Hx Depression Denies: Hx Panic Disorder - Cancer History Hx Chemotherapy: No - Surgical History Surgery Procedure, Year, and Place: CARDIAC STENTS(4 PROMUS AND 1 VISIPRO PLACED AT [facility]1.5T [facility] TRIPLE BYPASS, BILATERAL CAROTID ENDARTERECTOMY ,LAP ADDY,HYSTERECTOMY,LEFT GREAT TOE AMPUTATION,APPY, T&A ,STERNAL WIRES ,LUMBAR SPINE FUSION,CSP FUSION , C SECTION,LEFT FOOT PARTIALLY(has heel only per pt) AMPUTATED-BACK SURGERY- LASER SURGERY. defib,port Hx Anesthesia Reactions: No - Immunization History Date of Tetanus Vaccine: 2016 Date of Influenza Vaccine: 2016 Infectious Disease History: Reports: Hx of Known/Suspected MRSA Denies: Hx Clostridium Difficile, Hx Hepatitis, Hx Human Immunodeficiency Virus (HIV), Hx Shingles, Hx Tuberculosis, Hx Known/Suspected VRE, Hx Known/ Suspected VRSA, History Other Infectious Disease - Family History Known Family History: Positive: Unknown - Pt is adopted and does not know her FHx - Social History Alcohol Use: None Substance Use Type: Reports: None Hx Tobacco Use: Yes Smoking Status (MU): Light Every Day Tobacco Smoker Type: Cigarettes Amount Used/How Often: 6 cigs/day Length of Time of Smoking/Using Tobacco: 30 years Have You Smoked in the Last Year: Yes Review of Systems Negative: Fever, Chills Eyes: Negative ENT: Negative Negative: Palpitations, Chest Pain Positive: Shortness Of Breath. Negative: Cough Positive: Nausea. Negative: Abdominal Pain, Vomiting Positive: Other - right lower back pain All Other Systems Reviewed And Are Negative: Yes Physical Exam - Summary Physical Exam Summary: VITAL SIGNS: Reviewed. GENERAL: ~Patient is a well-developed and nourished female who is lying comfortable in the stretcher. ~Patient is not in any acute respiratory distress. HEAD AND FACE: No signs of trauma. ~No ecchymosis, hematomas or skull depressions. No sinus tenderness. EYES: PERRLA, EOMI x 2, No injected conjunctiva, no nystagmus. EARS: Hearing grossly intact. Ear canals and tympanic membranes are within normal limits. MOUTH: Oropharynx within normal limits. Oral mucosa is dry. NECK: Supple, trachea is midline, no adenopathy, no JVD, no carotid bruit, no c- spine tenderness, neck with full ROM. CHEST: Symmetric, no tenderness at palpation LUNGS: There are decreased breath sounds bilaterally. There are crackles on the left lower lung. CVS: Regular rate and rhythm, S1 and S2 present, no murmurs or gallops appreciated. ABDOMEN: Soft, non-tender. No signs of distention. No rebound no guarding, and no masses palpated. Bowel sounds are normal. There is right costovertebral angle tenderness. EXTREMITIES: FROM in all major joints, no edema, no cyanosis or clubbing. There is a left lower extremity amputation. NEURO: Alert and oriented x 3. No acute neurological deficits. Speech is normal and follows commands. SKIN: Dry and warm Triage Information Reviewed: Yes Vital Signs On Initial Exam: Initial Vitals BP 185/92 06/30/17 15:41 Pulse rate: 88 Respiratory rate: 21 O2 saturation: 100 Vital Signs Reviewed: Yes Diagnostics - Vital Signs Vital Signs Temp Pulse Resp BP Pulse Ox 06/30/17 18:00 89 19 155/68 94 06/30/17 17:00 93 16 178/77 97 06/30/17 16:27 88 21 161/86 98 06/30/17 16:01 98.3 F 88 24 167/81 97 06/30/17 16:00 88 21 167/81 99 06/30/17 15:43 88 21 100 06/30/17 15:41 185/92 - Laboratory Lab Results: Lab Results 06/30/17 06/30/17 06/30/17 Range/Units 16:55 16:55 16:55 WBC 10.3 (3.5-10.8) 10^3/ul RBC 2.61 L (4.0-5.4) 10^6/ul Hgb 7.6 L (12.0-16.0) g/dl Hct 24 L (35-47) % MCV 91 (80-97) fL MCH 29 (27-31) pg MCHC 32 (31-36) g/dl RDW 18 H (10.5-15) % Plt Count 231 (150-450) 10^3/ul MPV 8 (7.4-10.4) um3 Neut % (Auto) 77.6 (38-83) % Lymph % (Auto) 17.1 L (25-47) % [place] % (Auto) 3.0 (1-9) % Eos % (Auto) 1.4 (0-6) % Baso % (Auto) 0.9 (0-2) % Absolute Neuts (auto) 8.0 H (1.5-7.7) 10^3/ul Absolute Lymphs (auto) 1.8 (1.0-4.8) 10^3/ul Absolute Monos (auto) 0.3 (0-0.8) 10^3/ul Absolute Eos (auto) 0.1 (0-0.6) 10^3/ul Absolute Basos (auto) 0.1 (0-0.2) 10^3/ul Absolute Nucleated RBC 0 10^3/ul Nucleated RBC % 0 APTT 31.7 (26.0-36.3) seconds Sodium (133-145) mmol/L Potassium (3.5-5.0) mmol/L Chloride (101-111) mmol/L Carbon Dioxide (22-32) mmol/L Anion Gap BUN (6-24) mg/dL Creatinine (0.51-0.95) mg/dL Est GFR ( Amer) (>60) Est GFR (Non-Af Amer) (>60) BUN/Creatinine Ratio (8-20) Glucose (70-100) mg/dL Lactic Acid (0.5-2.0) mmol/L Calcium (8.6-10.3) mg/dL Total Bilirubin (0.2-1.0) mg/dL AST (13-39) U/L ALT (7-52) U/L Alkaline Phosphatase (34-104) U/L CK-MB (CK-2) (0.6-6.3) ng/mL Troponin I (<0.04) ng/mL C-Reactive Protein (< 5.00) mg/L B-Natriuretic Peptide 1233 H ( - 100) pg/mL Total Protein (6.4-8.9) g/dL Albumin (3.2-5.2) g/dL Globulin (2-4) g/dL Albumin/Globulin Ratio (1-3) 06/30/17 06/30/17 Range/Units 16:55 16:55 WBC (3.5-10.8) 10^3/ul RBC (4.0-5.4) 10^6/ul Hgb (12.0-16.0) g/dl Hct (35-47) % MCV (80-97) fL MCH (27-31) pg MCHC (31-36) g/dl RDW (10.5-15) % Plt Count (150-450) 10^3/ul MPV (7.4-10.4) um3 Neut % (Auto) (38-83) % Lymph % (Auto) (25-47) % [place] % (Auto) (1-9) % Eos % (Auto) (0-6) % Baso % (Auto) (0-2) % Absolute Neuts (auto) (1.5-7.7) 10^3/ul Absolute Lymphs (auto) (1.0-4.8) 10^3/ul Absolute Monos (auto) (0-0.8) 10^3/ul Absolute Eos (auto) (0-0.6) 10^3/ul Absolute Basos (auto) (0-0.2) 10^3/ul Absolute Nucleated RBC 10^3/ul Nucleated RBC % APTT (26.0-36.3) seconds Sodium 128 L (133-145) mmol/L Potassium 6.0 H (3.5-5.0) mmol/L Chloride 99 L (101-111) mmol/L Carbon Dioxide 29 (22-32) mmol/L Anion Gap Not Reportable BUN 33 H (6-24) mg/dL Creatinine 0.95 (0.51-0.95) mg/dL Est GFR ( Amer) 78.3 (>60) Est GFR (Non-Af Amer) 60.9 (>60) BUN/Creatinine Ratio 34.7 H (8-20) Glucose 229 H (70-100) mg/dL Lactic Acid 1.7 (0.5-2.0) mmol/L Calcium 8.3 L (8.6-10.3) mg/dL Total Bilirubin 0.30 (0.2-1.0) mg/dL AST 11 L (13-39) U/L ALT 8 (7-52) U/L Alkaline Phosphatase 146 H (34-104) U/L CK-MB (CK-2) 4.7 (0.6-6.3) ng/mL Troponin I 0.03 (<0.04) ng/mL C-Reactive Protein 3.19 (< 5.00) mg/L B-Natriuretic Peptide ( - 100) pg/mL Total Protein 5.3 L (6.4-8.9) g/dL Albumin 2.5 L (3.2-5.2) g/dL Globulin 2.8 (2-4) g/dL Albumin/Globulin Ratio 0.9 L (1-3) Result Diagrams: 07/01/17 05:47 07/01/17 05:47 Lab Statement: Any lab studies that have been ordered have been reviewed, and results considered in the medical decision making process. - Radiology Chest XR Xray Interpretation: Positive (See Comments) - IMPRESSION: In the correct clinical setting the chest X-ray findings could be compatible with mild exacerbation of congestive heart failure. ED physician has reviewed this radiology report and agrees. Radiology Interpretation Completed By: Radiologist - EKG 1619 Cardiac Rate: NL - 97 bpm EKG Rhythm: Sinus Rhythm EKG Interpretation: Ventricular paced EKG EKG Comparison: No Significant Change - Similar to previous EKG on 04/26/17. Course/Dx - Course Assessment/Plan: In the ED course an IV access was obtained. Patient was placed in a cardiac surgeon. Labs w/o a significant abnormality except for acute on chronic anemia, slight hyponatremia, potassium still pending, glucose 229 and BNP 1233. Troponin #1: 0.03. CXR impression: consisting with mild exacerbation of CHF. Patient was given Lasix for the CHF exacerbation. I discussed the case with Dr. Proctor who accepted the patient for admission to his services. He will f/u the K+ level and if elevated he will treat accordingly. At this time patient is hemodynamically stable and A+Ox 3. - Diagnoses Differential Diagnosis/HQI/PQRI: Positive: Asthma, Bronchitis, CHF, Chest Wall Pain, COPD Exacerbation, MO, Pneumonia Provider Diagnoses: CHF exacerbation, Chest pain, Hyperkalemia - Physician Notifications Discussed Care of Patient With: Gurvinder Proctor Time Discussed With Above Provider: 17:53 Instructed by Provider To: Other - I discussed the pt's case with Dr. Proctor, hospitalist. Dr. Proctor has agreed to admit the pt. Discharge - Discharge Plan Condition: Stable Disposition: ADMITTED TO [facility] documentation as recorded by the Carlos Enrique sherwood Angela accurately reflects the service I personally performed and the decisions made by me, Moises Shaw MD.
[2017-07-01] MEDS: Metoclopramide TAB* 10 MG PO SCH ×2 (15:06→21:13)
[2017-07-01] MEDS: Insulin GLARGINE(*) 1 UNITS UNIT SUBCUT SCH (18:06)
--- NOTE | 2017-07-01 20:20 | PN ---
Subjective Date of Service: 07/01/17 Interval History: Feeling and looking improved after some aggressive diuresis. Pagan to be removed. Left lower quadrant and left flank pain. Objective Active Medications: Albuterol/Ipratropium (Duoneb (Albuterol 2.5 Mg/Ipratropium 0.5 Mg)) 1 neb INH TID PRN PRN Reason: SHORTNESS OF BREATH Aspirin (Aspirin Ec Low Dose*) 81 mg PO DAILY [facility] Last Admin: 07/01/17 09:35 Dose: 81 mg Atorvastatin Calcium (Lipitor*) 20 mg PO BEDTIME [facility] Last Admin: 06/30/17 22:03 Dose: 20 mg Bumetanide (Bumex*) 2 mg SLOW PUSH Q6H [facility] Last Admin: 07/01/17 15:08 Dose: 2 mg Carvedilol (Coreg Tab*) 1.5625 mg PO QAM [facility] Last Admin: 07/01/17 09:36 Dose: 1.5625 mg Carvedilol (Coreg Tab*) 4.6875 mg PO BEDTIME [facility] Last Admin: 06/30/17 22:02 Dose: 4.6875 mg Dextrose (D50w Syringe 50 Ml*) 12.5 gm IV PUSH .FOR FS < 60 - SS PRN PRN Reason: FS < 60 Docusate Sodium (Colace Cap*) 100 mg PO BID PRN PRN Reason: constipation Last Admin: 07/01/17 09:34 Dose: 100 mg Gabapentin (Neurontin Cap(*)) 1,200 mg PO BEDTIME [facility] Last Admin: 07/01/17 01:07 Dose: Not Given Heparin Sodium (Porcine) (Heparin Flush Port (Ivad)) 5 ml FLUSH DAILY [facility] PRN Reason: Protocol Last Admin: 07/01/17 15:14 Dose: 5 ml Insulin Glargine (Lantus(*)) 30 units SUBCUT QPM [facility] Last Admin: 07/01/17 18:06 Dose: 30 unit Insulin Human Lispro (Humalog*) 0 units SUBCUT ACHS [facility] PRN Reason: Protocol Last Admin: 07/01/17 18:06 Dose: 4 units Linezolid (Zyvox Tab*) 600 mg PO Q12H [facility] Last Admin: 07/01/17 09:38 Dose: 600 mg Metoclopramide HCl (Reglan Tab*) 5 mg PO TID [facility] Last Admin: 07/01/17 15:06 Dose: 5 mg Metolazone (Zaroxolyn Tab*) 5 mg PO DAILY [facility] Mometasone Furoate/Formoterol Fumar (Dulera 100/5 Mdi*) 1 puff INH BID [facility] Last Admin: 07/01/17 08:35 Dose: 1 puff Ondansetron HCl (Zofran Inj*) 4 mg IV Q6H PRN PRN Reason: NAUSEA Oxycodone/Acetaminophen (Percocet 5/325 Tab*) 1 - 2 tab PO Q4H PRN PRN Reason: PAIN Last Admin: 07/01/17 15:06 Dose: 2 tab Polyethylene Glycol/Electrolytes (Miralax*) 17 gm PO DAILY PRN PRN Reason: CONSTIPATION Ticagrelor (Brilinta*) 90 mg PO BID [facility] Last Admin: 07/01/17 09:39 Dose: 90 mg Tiotropium Gerber (Spiriva Cap.Inh*) 1 cap INH DAILY [facility] Last Admin: 07/01/17 08:35 Dose: 1 cap Vital Signs 06/30/17 06/30/17 06/30/17 20:30 20:48 22:00 Temperature Pulse Rate 92 Respiratory 18 18 18 Rate Blood Pressure (mmHg) O2 Sat by Pulse 99 Oximetry 07/01/17 07/01/17 07/01/17 00:29 01:07 04:27 Temperature 97.8 F 97.8 F Pulse Rate 67 80 Respiratory 16 16 16 Rate Blood Pressure 155/75 162/81 (mmHg) O2 Sat by Pulse 97 99 Oximetry 07/01/17 07/01/17 07/01/17 07:32 09:40 11:40 Temperature 98.1 F Pulse Rate 88 Respiratory 16 16 18 Rate Blood Pressure 150/76 (mmHg) O2 Sat by Pulse 97 Oximetry 07/01/17 07/01/17 07/01/17 15:06 15:49 17:06 Temperature 97.9 F Pulse Rate 87 Respiratory 18 16 18 Rate Blood Pressure 169/79 (mmHg) O2 Sat by Pulse 100 Oximetry Oxygen Devices in Use Now: None Appearance: no acute distress Eyes: No Scleral Icterus, PERRLA Ears/Nose/Mouth/Throat: NL Teeth, Lips, Gums, Mucous Membranes Moist Neck: NL Appearance and Movements; NL JVP, Trachea Midline Respiratory: Symmetrical Chest Expansion and Respiratory Effort, Clear to Auscultation Cardiovascular: NL Sounds; No Murmurs; No JVD, - - edema improved though still 1 -2+ in legs. Abdominal: NL Sounds; No Tenderness; No Distention, No Hepatosplenomegaly Extremities: No Clubbing, Cyanosis, - - left foot in bandage, no strikethru. right 5th toe nail with dried blood, toe nail almost falling off. Skin: - - erythema near right 5ht toe nail Result Diagrams: 07/01/17 05:47 07/01/17 05:47 Additional Lab and Data: Lab Results 06/30/17 06/30/17 06/30/17 Range/Units 16:55 16:55 16:55 WBC 10.3 (3.5-10.8) 10^3/ul RBC 2.61 L (4.0-5.4) 10^6/ul Hgb 7.6 L (12.0-16.0) g/dl Hct 24 L (35-47) % MCV 91 (80-97) fL MCH 29 (27-31) pg MCHC 32 (31-36) g/dl RDW 18 H (10.5-15) % Plt Count 231 (150-450) 10^3/ul MPV 8 (7.4-10.4) um3 Neut % (Auto) 77.6 (38-83) % Lymph % (Auto) 17.1 L (25-47) % [place] % (Auto) 3.0 (1-9) % Eos % (Auto) 1.4 (0-6) % Baso % (Auto) 0.9 (0-2) % Absolute Neuts (auto) 8.0 H (1.5-7.7) 10^3/ul Absolute Lymphs (auto) 1.8 (1.0-4.8) 10^3/ul Absolute Monos (auto) 0.3 (0-0.8) 10^3/ul Absolute Eos (auto) 0.1 (0-0.6) 10^3/ul Absolute Basos (auto) 0.1 (0-0.2) 10^3/ul Absolute Nucleated RBC 0 10^3/ul Nucleated RBC % 0 APTT 31.7 (26.0-36.3) seconds Sodium (133-145) mmol/L Potassium (3.5-5.0) mmol/L Chloride (101-111) mmol/L Carbon Dioxide (22-32) mmol/L Anion Gap BUN (6-24) mg/dL Creatinine (0.51-0.95) mg/dL Est GFR ( Amer) (>60) Est GFR (Non-Af Amer) (>60) BUN/Creatinine Ratio (8-20) Glucose (70-100) mg/dL Lactic Acid (0.5-2.0) mmol/L Calcium (8.6-10.3) mg/dL Total Bilirubin (0.2-1.0) mg/dL AST (13-39) U/L ALT (7-52) U/L Alkaline Phosphatase (34-104) U/L CK-MB (CK-2) (0.6-6.3) ng/mL Troponin I (<0.04) ng/mL C-Reactive Protein (< 5.00) mg/L B-Natriuretic Peptide 1233 H ( - 100) pg/mL Total Protein (6.4-8.9) g/dL Albumin (3.2-5.2) g/dL Globulin (2-4) g/dL Albumin/Globulin Ratio (1-3) 06/30/17 06/30/17 Range/Units 16:55 16:55 WBC (3.5-10.8) 10^3/ul RBC (4.0-5.4) 10^6/ul Hgb (12.0-16.0) g/dl Hct (35-47) % MCV (80-97) fL MCH (27-31) pg MCHC (31-36) g/dl RDW (10.5-15) % Plt Count (150-450) 10^3/ul MPV (7.4-10.4) um3 Neut % (Auto) (38-83) % Lymph % (Auto) (25-47) % [place] % (Auto) (1-9) % Eos % (Auto) (0-6) % Baso % (Auto) (0-2) % Absolute Neuts (auto) (1.5-7.7) 10^3/ul Absolute Lymphs (auto) (1.0-4.8) 10^3/ul Absolute Monos (auto) (0-0.8) 10^3/ul Absolute Eos (auto) (0-0.6) 10^3/ul Absolute Basos (auto) (0-0.2) 10^3/ul Absolute Nucleated RBC 10^3/ul Nucleated RBC % APTT (26.0-36.3) seconds Sodium 128 L (133-145) mmol/L Potassium 6.0 H (3.5-5.0) mmol/L Chloride 99 L (101-111) mmol/L Carbon Dioxide 29 (22-32) mmol/L Anion Gap Not Reportable BUN 33 H (6-24) mg/dL Creatinine 0.95 (0.51-0.95) mg/dL Est GFR ( Amer) 78.3 (>60) Est GFR (Non-Af Amer) 60.9 (>60) BUN/Creatinine Ratio 34.7 H (8-20) Glucose 229 H (70-100) mg/dL Lactic Acid 1.7 (0.5-2.0) mmol/L Calcium 8.3 L (8.6-10.3) mg/dL Total Bilirubin 0.30 (0.2-1.0) mg/dL AST 11 L (13-39) U/L ALT 8 (7-52) U/L Alkaline Phosphatase 146 H (34-104) U/L CK-MB (CK-2) 4.7 (0.6-6.3) ng/mL Troponin I 0.03 (<0.04) ng/mL C-Reactive Protein 3.19 (< 5.00) mg/L B-Natriuretic Peptide ( - 100) pg/mL Total Protein 5.3 L (6.4-8.9) g/dL Albumin 2.5 L (3.2-5.2) g/dL Globulin 2.8 (2-4) g/dL Albumin/Globulin Ratio 0.9 L (1-3) Assess/Plan/Problems-Billing Assessment: 57 year old female PMH systolic CHF, IDDMT2, CKD3, PVD, recent prolonged admission for left heel ulcer and vulvular abscess p/w progressive SOB, rapid weight gain. Acute systolic CHF exaccerbation. On linezolid still for heel. Improved with aggressive diuresis. 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 (3) Gastroparesis due to secondary diabetes Current Visit: No Status: Acute Code(s): E13.43 - OTH DIABETES MELLITUS W DIABETIC AUTONOMIC (POLY)NEUROPATHY SNOMED Code(s): 5909077 Comment: restart reglan (did not get actually upon discharge?) (4) Peripheral vascular disease Current Visit: No Status: Acute Code(s): I73.9 - PERIPHERAL VASCULAR DISEASE , UNSPECIFIED SNOMED Code(s): 077191228 Comment: - Continue ASA and brilinta. (5) Uncontrolled type II diabetes mellitus with foot ulcer Current Visit: No Status: Acute Priority: Medium Code(s): E11.621 - TYPE 2 DIABETES MELLITUS WITH FOOT ULCER; E11.65 - TYPE 2 DIABETES MELLITUS WITH HYPERGLYCEMIA; L97.509 - NON-PRESSURE CHRONIC ULCER OTH PRT UNSP FOOT W UNSP SEVERITY SNOMED Code(s): 627029411 Comment: Continue Lantus 30 units qhs and SSI A1C was above 15.0 in April (6) CKD (chronic kidney disease) stage 3, GFR 30-59 ml/min Current Visit: No Status: Chronic Priority: Medium Code(s): N18.3 - CHRONIC KIDNEY DISEASE, STAGE 3 (MODERATE) SNOMED Code(s): 680801410 Comment: - Creatinine improved from previous baseline. BMP daily with aggresive diuresis due to DM2 (7) Anemia Current Visit: No Status: Acute Priority: Medium Code(s): D64.9 - ANEMIA, UNSPECIFIED SNOMED Code(s): 247400610 Comment: CBC daily normocytic Likely AoCD/CKD s/p bone marrow 2017, no MDS (8) COPD (chronic obstructive pulmonary disease) Current Visit: No Status: Chronic Code(s): J44.9 - CHRONIC OBSTRUCTIVE PULMONARY DISEASE, UNSPECIFIED SNOMED Code(s): 17054865 Comment: Continue spiriva and dulera. Status and Disposition: medicine inpatient, anticipate discharge in 2-3days Attending: Gurvinder Proctor
[2017-07-01] MEDS: Atorvastatin* 20 MG TAB PO SCH (21:14)
[2017-07-02] MEDS: Bumetanide IV* 0.25 MG/ML 4 ML VIAL SLOW PUSH SCH ×3 (02:59→20:11)
[2017-07-02] MEDS: oxyCODONE/Acetamin 5/325 MG* TAB PO PRN ×4 (03:26→18:10)
[2017-07-02 06:48] LABS: Hematocrit 23 % (35-47); Hemoglobin 7.5 g/dl (12.0-16.0); Mean Corpuscular HGB Conc 33 g/dl (31-36); Mean Corpuscular Hemoglobin 29 pg (27-31); Mean Corpuscular Volume 89 fL (80-97); Mean Platelet Volume 8 um3 (7.4-10.4); Red Blood Count 2.59 10^6/ul (4.0-5.4); Red Cell Distribution Width 18 % (10.5-15); White Blood Count 6.7 10^3/ul (3.5-10.8)
[2017-07-02 07:02] LABS: BUN/Creatinine Ratio 27.4 (8-20); Calcium 8.4 mg/dL (8.6-10.3); EGFR African American 61.5 (>60); EGFR Non-African American 47.8 (>60); Magnesium 1.7 mg/dL (1.9-2.7); Potassium 4.9 mmol/L (3.5-5.0)
[2017-07-02] MEDS: Metoclopramide TAB* 10 MG PO SCH ×3 (07:52→20:11)
[2017-07-02] MEDS: Aspirin EC Low Dose* 81 MG TAB.EC PO SCH (07:52)
[2017-07-02] MEDS: Linezolid TAB* 600 MG PO SCH ×2 (07:52→20:11)
[2017-07-02] MEDS: Carvedilol TAB* 3.125 MG PO SCH ×2 (07:54→20:11)
[2017-07-02] MEDS: Ticagrelor* 90 MG TAB PO SCH ×2 (07:55→20:12)
[2017-07-02] MEDS ORDERED: Senna TAB PO PRN (08:28)
[2017-07-02] MEDS: Insulin LISPRO* 1 UNITS UNIT SUBCUT SCH ×4 (08:43→21:41)
[2017-07-02] MEDS ORDERED: Metolazone TAB* 5 MG PO SCH ×2 (09:00→13:30)
[2017-07-02] MEDS: Tiotropium CAP.INH* CAP.INH/18 MCG (USE ORDER SET !) INH SCH (09:50)
[2017-07-02] MEDS: Mometasone/Formoter 100/5 MDI INH SCH ×3 (09:50→20:40)
[2017-07-02] MEDS: Enalapril TAB* 5 MG PO SCH (09:56)
--- NOTE | 2017-07-02 13:35 | PN ---
Subjective Date of Service: 07/02/17 Interval History: Respiratory feels continued improvement though still winded with long talking spells. Rubber her foot ant right 5th toe nail came off. Still attests to right flank pain. Also left heel starting to "burn". Cast placed morning of admission. Objective Active Medications: Albuterol/Ipratropium (Duoneb (Albuterol 2.5 Mg/Ipratropium 0.5 Mg)) 1 neb INH TID PRN PRN Reason: SHORTNESS OF BREATH Aspirin (Aspirin Ec Low Dose*) 81 mg PO DAILY [facility] Last Admin: 07/02/17 07:52 Dose: 81 mg Atorvastatin Calcium (Lipitor*) 20 mg PO BEDTIME [facility] Last Admin: 07/01/17 21:14 Dose: 20 mg Bumetanide (Bumex*) 2 mg SLOW PUSH Q12H [facility] Carvedilol (Coreg Tab*) 1.5625 mg PO QAM [facility] Last Admin: 07/02/17 07:54 Dose: 1.5625 mg Carvedilol (Coreg Tab*) 4.6875 mg PO BEDTIME [facility] Last Admin: 07/01/17 21:14 Dose: 4.6875 mg Dextrose (D50w Syringe 50 Ml*) 12.5 gm IV PUSH .FOR FS < 60 - SS PRN PRN Reason: FS < 60 Docusate Sodium (Colace Cap*) 100 mg PO BID PRN PRN Reason: constipation Last Admin: 07/01/17 09:34 Dose: 100 mg Enalapril Maleate (Vasotec Tab*) 5 mg PO DAILY [facility] Last Admin: 07/02/17 09:56 Dose: 5 mg Gabapentin (Neurontin Cap(*)) 1,200 mg PO BEDTIME [facility] Last Admin: 07/01/17 21:12 Dose: 1,200 mg Heparin Sodium (Porcine) (Heparin Flush Port (Ivad)) 5 ml FLUSH DAILY [facility] PRN Reason: Protocol Last Admin: 07/02/17 07:51 Dose: 5 ml Insulin Glargine (Lantus(*)) 30 units SUBCUT QPM [facility] Last Admin: 07/01/17 18:06 Dose: 30 unit Insulin Human Lispro (Humalog*) 0 units SUBCUT ACHS [facility] PRN Reason: Protocol Last Admin: 07/02/17 12:04 Dose: 1 units Linezolid (Zyvox Tab*) 600 mg PO Q12H [facility] Last Admin: 07/02/17 07:52 Dose: 600 mg Metoclopramide HCl (Reglan Tab*) 5 mg PO TID [facility] Last Admin: 07/02/17 07:52 Dose: 5 mg Mometasone Furoate/Formoterol Fumar (Dulera 100/5 Mdi*) 1 puff INH BID [facility] Last Admin: 07/02/17 09:51 Dose: 1 puff Ondansetron HCl (Zofran Inj*) 4 mg IV Q6H PRN PRN Reason: NAUSEA Oxycodone/Acetaminophen (Percocet 5/325 Tab*) 1 - 2 tab PO Q4H PRN PRN Reason: PAIN Last Admin: 07/02/17 08:02 Dose: 1 tab Polyethylene Glycol/Electrolytes (Miralax*) 17 gm PO DAILY PRN PRN Reason: CONSTIPATION Senna (Senokot Tab*) 1 tab PO DAILY PRN PRN Reason: CONSTIPATION Ticagrelor (Brilinta*) 90 mg PO BID [facility] Last Admin: 07/02/17 07:55 Dose: 90 mg Tiotropium [place] (Spiriva Cap.Inh*) 1 cap INH DAILY [facility] Last Admin: 07/02/17 09:50 Dose: 1 cap Vital Signs 07/01/17 07/01/17 07/01/17 15:06 15:49 17:06 Temperature 97.9 F Pulse Rate 87 Respiratory 18 16 18 Rate Blood Pressure 169/79 (mmHg) O2 Sat by Pulse 100 Oximetry 07/01/17 07/01/17 07/01/17 20:00 20:07 20:18 Temperature 98.3 F Pulse Rate 90 Respiratory 18 16 18 Rate Blood Pressure 160/77 (mmHg) O2 Sat by Pulse 92 100 Oximetry 07/01/17 07/01/17 07/01/17 21:12 21:18 23:12 Temperature Pulse Rate Respiratory 18 18 16 Rate Blood Pressure (mmHg) O2 Sat by Pulse Oximetry 07/02/17 07/02/17 07/02/17 00:18 03:26 03:33 Temperature 98.4 F 97.8 F Pulse Rate 81 71 Respiratory 16 18 16 Rate Blood Pressure 160/76 150/74 (mmHg) O2 Sat by Pulse 97 95 Oximetry 07/02/17 07/02/17 07/02/17 05:26 07:16 08:00 Temperature 97.4 F Pulse Rate 69 Respiratory 18 16 17 Rate Blood Pressure 172/78 (mmHg) O2 Sat by Pulse 99 Oximetry 07/02/17 07/02/17 07/02/17 08:02 09:53 10:02 Temperature Pulse Rate 70 Respiratory 17 16 17 Rate Blood Pressure (mmHg) O2 Sat by Pulse 98 Oximetry Oxygen Devices in Use Now: None Appearance: No acute distress. Nonlabored breathing Ears/Nose/Mouth/Throat: NL Teeth, Lips, Gums, Mucous Membranes Moist Neck: NL Appearance and Movements; NL JVP, Trachea Midline Respiratory: Symmetrical Chest Expansion and Respiratory Effort, Clear to Auscultation Cardiovascular: NL Sounds; No Murmurs; No JVD, RRR Abdominal: NL Sounds; No Tenderness; No Distention, No Hepatosplenomegaly, - - right CVA tenderness Extremities: - - 1+ edema shins; much improved since admission Skin: - - left foot in cast. 5th right toenail now off and bleeding. Neurological: Alert and Oriented x 3 Result Diagrams: 07/02/17 06:36 07/02/17 06:36 Additional Lab and Data: Abnormal Lab Results 07/01/17 07/01/17 07/02/17 16:55 21:29 06:36 WBC RBC Hgb Hct MCV MCH MCHC RDW Plt Count MPV Neut % (Auto) Lymph % (Auto) [place] % (Auto) Eos % (Auto) Baso % (Auto) Absolute Neuts (auto) Absolute Lymphs (auto) Absolute Monos (auto) Absolute Eos (auto) Absolute Basos (auto) Absolute Nucleated RBC Nucleated RBC % Sodium 135 Potassium 4.9 Chloride 97 L Carbon Dioxide 35 H Anion Gap 3 BUN 32 H Creatinine 1.17 H Est GFR ( Amer) 61.5 Est GFR (Non-Af Amer) 47.8 BUN/Creatinine Ratio 27.4 H Glucose 77 POC Glucose (mg/dL) 219 H 232 H Calcium 8.4 L Magnesium 1.7 L 07/02/17 07/02/17 07/02/17 06:36 07:45 11:28 WBC 6.7 RBC 2.59 L Hgb 7.5 L Hct 23 L MCV 89 MCH 29 MCHC 33 RDW 18 H Plt Count 175 MPV 8 Neut % (Auto) 76.1 Lymph % (Auto) 17.3 L [place] % (Auto) 3.1 Eos % (Auto) 2.6 Baso % (Auto) 0.9 Absolute Neuts (auto) 5.1 Absolute Lymphs (auto) 1.2 Absolute Monos (auto) 0.2 Absolute Eos (auto) 0.2 Absolute Basos (auto) 0.1 Absolute Nucleated RBC 0 Nucleated RBC % 0 Sodium Potassium Chloride Carbon Dioxide Anion Gap BUN Creatinine Est GFR ( Amer) Est GFR (Non-Af Amer) BUN/Creatinine Ratio Glucose POC Glucose (mg/dL) 108 H 135 H Calcium Magnesium Microbiology and Other Data: Microbiology 06/30/17 16:55 Aerobic Blood Culture - Preliminary Blood Venous No Growth Day 1 Anaerobic Blood Culture - Preliminary No Growth Day 1 Assess/Plan/Problems-Billing Assessment: 57 year old female PMH systolic CHF, IDDMT2, CKD3, PVD, recent prolonged admission for left heel ulcer and vulvular abscess p/w progressive SOB, rapid weight gain. Acute systolic CHF exacerbation. On linezolid still for heel. Improved with aggressive diuresis. Right CVA tenderness, negative UA initially but recent Ecoli UTIs. 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 very important, have asked RN to be sure to get coreg 1.56 am/4.68 pm Hx of needing milironine in Nov 2016 ECHO with improved EF 35-40%, moderate MVR, pHTN RVSP 52 (2) Abscess of heel, left Current Visit: No Status: Acute Code(s): L02.612 - CUTANEOUS ABSCESS OF LEFT FOOT SNOMED Code(s): 01059918 Comment: continue course of linezolid. (3) Gastroparesis due to secondary diabetes Current Visit: No Status: Acute Code(s): E13.43 - OTH DIABETES MELLITUS W DIABETIC AUTONOMIC (POLY)NEUROPATHY SNOMED Code(s): 7787640 Comment: continue reglan (did not get actually upon discharge?) (4) Peripheral vascular disease Current Visit: No Status: Acute Code(s): I73.9 - PERIPHERAL VASCULAR DISEASE , UNSPECIFIED SNOMED Code(s): 138204115 Comment: - Continue ASA and brilinta. (5) Uncontrolled type II diabetes mellitus with foot ulcer Current Visit: No Status: Acute Priority: Medium Code(s): E11.621 - TYPE 2 DIABETES MELLITUS WITH FOOT ULCER; E11.65 - TYPE 2 DIABETES MELLITUS WITH HYPERGLYCEMIA; L97.509 - NON-PRESSURE CHRONIC ULCER OTH PRT UNSP FOOT W UNSP SEVERITY SNOMED Code(s): 422540810 Comment: Continue Lantus 30 units qhs and SSI A1C was above 15.0 in April (6) CKD (chronic kidney disease) stage 3, GFR 30-59 ml/min Current Visit: No Status: Chronic Priority: Medium Code(s): N18.3 - CHRONIC KIDNEY DISEASE, STAGE 3 (MODERATE) SNOMED Code(s): 993284198 Comment: - Creatinine improved from previous baseline on admission now with slight rise. BMP daily due to DM2 (7) Anemia Current Visit: No Status: Acute Priority: Medium Code(s): D64.9 - ANEMIA, UNSPECIFIED SNOMED Code(s): 660508084 Comment: CBC daily normocytic Likely AoCD/CKD s/p bone marrow 2017, no MDS (8) COPD (chronic obstructive pulmonary disease) Current Visit: No Status: Chronic Code(s): J44.9 - CHRONIC OBSTRUCTIVE PULMONARY DISEASE, UNSPECIFIED SNOMED Code(s): 36562915 Comment: Continue spiriva and dulera. (9) CVA tenderness Current Visit: Yes Status: Acute Code(s): M54.9 - DORSALGIA, UNSPECIFIED SNOMED Code(s): 256868986 Comment: present on admission UA negative on admission. consider repeat if continues. Recent(06/16, 06/22/17) Hx of Ecoli UTIs >100K sens to cefepime, meropenem, gent, macrobid) Believe she was tx with meropenem but clarify. Many antibiotic allergies Status and Disposition: medicine inpatient, anticipate discharge in ~1-2days Attending: Gurvinder Proctor
--- NOTE | 2017-07-02 15:07 | PN ---
Progress Note - Progress Note Date of Service: 07/02/17 SOAP: Subjective: 57 y/o female admitted for CHF exacerbation with complaints of burning sensation in L stump. Patient states she feels burnign sensation and is concerned about repeat infection. Was recently seen by Dr. Hess in clinic. No fever, chills, no redness above splint. Objective: General- Well appearing, NAD, AO MSK- Splint removed, dressing taken down, sutures intact, 2 small superficail ulcerations on base of stump, <1cm each, with serous drainage noted, minimal. cultures obtained. New splint made. Vital Signs Temp 97.4 F 07/02/17 07:16 Pulse 70 07/02/17 09:53 Resp 18 07/02/17 13:47 BP 172/78 07/02/17 07:16 Pulse Ox 98 07/02/17 09:53 Intake & Output 07/01/17 07/02/17 07/02/17 18:59 06:59 18:59 Intake Total 850 715 750 Output Total 1800 400 900 Balance -950 315 -150 Weight 166 lb 12.8 oz Intake: Oral 850 715 750 Output: Urine 350 400 900 [place] 1450 Other: Estimated Void Large # Bowel Movements 0 # Voids 0 Assessment: Stable L calcaneal debridement 06/21/2017 Plan: - Follow up cultures - Daily dressing changes, keep splint on - [facility] medical management per hospialists.
[2017-07-02] MEDS: Insulin GLARGINE(*) 1 UNITS UNIT SUBCUT SCH (17:34)
[2017-07-02] MEDS: Atorvastatin* 20 MG TAB PO SCH (20:11)
[2017-07-02] MEDS: Gabapentin CAP(*) 400 MG PO SCH (20:12)
[2017-07-02] MEDS: Ondansetron INJ* 2 MG/ML VIAL IV PRN (20:13)
[2017-07-03] MEDS ORDERED: Scopolamine 1.5 mg* PATCH TRANSDERM SCH (01:00)
[2017-07-03] MEDS: oxyCODONE/Acetamin 5/325 MG* TAB PO PRN ×4 (03:00→21:59)
[2017-07-03 05:52] LABS: Hematocrit 20 % (35-47); Hemoglobin 6.6 g/dl (12.0-16.0); Mean Corpuscular HGB Conc 33 g/dl (31-36); Mean Corpuscular Hemoglobin 29 pg (27-31); Mean Corpuscular Volume 89 fL (80-97); Mean Platelet Volume 8 um3 (7.4-10.4); Red Blood Count 2.25 10^6/ul (4.0-5.4); Red Cell Distribution Width 18 % (10.5-15); White Blood Count 6.7 10^3/ul (3.5-10.8)
[2017-07-03 05:53] LABS: Add Diff/Slide Review? Slide Review Added; Comments Flag Yes
[2017-07-03 06:01] LABS: BUN/Creatinine Ratio 25.5 (8-20); Calcium 7.9 mg/dL (8.6-10.3); EGFR African American 49.6 (>60); EGFR Non-African American 38.6 (>60); Magnesium 1.4 mg/dL (1.9-2.7)
[2017-07-03 06:34] LABS: Potassium 5.2 mmol/L (3.5-5.0)
[2017-07-03] MEDS: Mometasone/Formoter 100/5 MDI INH SCH ×2 (09:02→20:40)
[2017-07-03] MEDS: Tiotropium CAP.INH* CAP.INH/18 MCG (USE ORDER SET !) INH SCH (09:02)
[2017-07-03] MEDS: Docusate CAP* 100 MG PO PRN (09:22)
[2017-07-03] MEDS: Metoclopramide TAB* 10 MG PO SCH ×3 (09:23→22:01)
[2017-07-03] MEDS: Enalapril TAB* 5 MG PO SCH (09:24)
[2017-07-03] MEDS: Ticagrelor* 90 MG TAB PO SCH ×2 (09:24→21:59)
[2017-07-03] MEDS: Linezolid TAB* 600 MG PO SCH ×2 (09:24→23:01)
[2017-07-03] MEDS: Aspirin EC Low Dose* 81 MG TAB.EC PO SCH (09:24)
[2017-07-03] MEDS: Carvedilol TAB* 3.125 MG PO SCH ×2 (09:25→22:00)
[2017-07-03] MEDS: Insulin LISPRO* 1 UNITS UNIT SUBCUT SCH ×4 (09:27→23:01)
[2017-07-03 10:54] LABS: Hematocrit 20 % (35-47)
[2017-07-03 11:00] LABS: Comments Flag Yes; Hemoglobin 6.6 g/dl (12.0-16.0)
[2017-07-03] MEDS ORDERED: Morphine INJ* 2 MG/ML 1 ML SYRINGE (TWO MG - NEW SYRINGE VERSION) IV ONE (11:20)
[2017-07-03] MEDS: Bumetanide IV* 0.25 MG/ML 4 ML VIAL SLOW PUSH SCH (11:24)
[2017-07-03] MEDS: Insulin GLARGINE(*) 1 UNITS UNIT SUBCUT SCH (17:32)
--- NOTE | 2017-07-03 18:11 | PN ---
Subjective Date of Service: 07/03/17 Interval History: Hgb dropped from 7.5 to 6.6 and again 6.6 on redraw at 1000. 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 Mag low. Pt with headache. Pt consented for blood and transfusing 1u pRBC. Weight on scale 157lbs today down from 170lbs on AM of admission at home. Breathing improved still. Ortho investigated left heel wound, took culture /GS. Objective Active Medications: Albuterol/Ipratropium (Duoneb (Albuterol 2.5 Mg/Ipratropium 0.5 Mg)) 1 neb INH TID PRN PRN Reason: SHORTNESS OF BREATH Aspirin (Aspirin Ec Low Dose*) 81 mg PO DAILY [facility] Last Admin: 07/03/17 09:24 Dose: 81 mg Atorvastatin Calcium (Lipitor*) 20 mg PO BEDTIME [facility] Last Admin: 07/02/17 20:11 Dose: 20 mg Carvedilol (Coreg Tab*) 1.5625 mg PO QAM [facility] Last Admin: 07/03/17 09:25 Dose: 1.5625 mg Carvedilol (Coreg Tab*) 4.6875 mg PO BEDTIME [facility] Last Admin: 07/02/17 20:11 Dose: 4.6875 mg Dextrose (D50w Syringe 50 Ml*) 12.5 gm IV PUSH .FOR FS < 60 - SS PRN PRN Reason: FS < 60 Docusate Sodium (Colace Cap*) 100 mg PO BID PRN PRN Reason: constipation Last Admin: 07/03/17 09:22 Dose: 100 mg Enalapril Maleate (Vasotec Tab*) 5 mg PO DAILY [facility] Last Admin: 07/03/17 09:24 Dose: 5 mg Gabapentin (Neurontin Cap(*)) 1,200 mg PO BEDTIME [facility] Last Admin: 07/02/17 20:12 Dose: 1,200 mg Heparin Sodium (Porcine) (Heparin Flush Port (Ivad)) 5 ml FLUSH DAILY [facility] PRN Reason: Protocol Last Admin: 07/03/17 12:22 Dose: 5 ml Insulin Glargine (Lantus(*)) 30 units SUBCUT QPM [facility] Last Admin: 07/03/17 17:32 Dose: 10 unit Insulin Human Lispro (Humalog*) 0 units SUBCUT ACHS [facility] PRN Reason: Protocol Last Admin: 07/03/17 17:32 Dose: 1 units Linezolid (Zyvox Tab*) 600 mg PO Q12H [facility] Last Admin: 07/03/17 09:24 Dose: 600 mg Metoclopramide HCl (Reglan Tab*) 5 mg PO TID [facility] Last Admin: 07/03/17 14:52 Dose: 5 mg Mometasone Furoate/Formoterol Fumar (Dulera 100/5 Mdi*) 1 puff INH BID [facility] Last Admin: 07/03/17 09:02 Dose: 1 puff Ondansetron HCl (Zofran Inj*) 4 mg IV Q6H PRN PRN Reason: NAUSEA Last Admin: 07/02/17 20:13 Dose: 4 mg Oxycodone/Acetaminophen (Percocet 5/325 Tab*) 1 - 2 tab PO Q4H PRN PRN Reason: PAIN Last Admin: 07/03/17 14:54 Dose: 2 tab Pharmacy Profile Note (Scopolomine Patch Remove*) 1 note PATCH OFF Q72H [facility] Polyethylene Glycol/Electrolytes (Miralax*) 17 gm PO DAILY PRN PRN Reason: CONSTIPATION Scopolamine (Transderm-Scop 1.5 Mg Patch*) 1 patch TRANSDERM Q72H [facility] Last Admin: 07/03/17 01:18 Dose: 1 patch Senna (Senokot Tab*) 1 tab PO DAILY PRN PRN Reason: CONSTIPATION Ticagrelor (Brilinta*) 90 mg PO BID [facility] Last Admin: 07/03/17 09:24 Dose: 90 mg Tiotropium [place] (Spiriva Cap.Inh*) 1 cap INH DAILY [facility] Last Admin: 07/03/17 09:02 Dose: 1 cap Torsemide (Demadex*) 20 mg PO DAILY [facility] Vital Signs 07/02/17 07/02/17 07/02/17 18:10 19:55 20:00 Temperature 98.1 F Pulse Rate 103 Respiratory 19 20 20 Rate Blood Pressure 140/65 (mmHg) O2 Sat by Pulse 96 Oximetry 07/02/17 07/02/17 07/02/17 20:10 20:12 20:41 Temperature Pulse Rate Respiratory 22 22 18 Rate Blood Pressure (mmHg) O2 Sat by Pulse 98 Oximetry 07/02/17 07/03/17 07/03/17 22:12 00:32 03:00 Temperature 98.2 F Pulse Rate 96 Respiratory 19 16 19 Rate Blood Pressure 138/69 (mmHg) O2 Sat by Pulse 91 Oximetry 07/03/17 07/03/17 07/03/17 03:56 05:00 08:00 Temperature 98.2 F Pulse Rate 88 Respiratory 18 17 18 Rate Blood Pressure 147/72 (mmHg) O2 Sat by Pulse 96 Oximetry 07/03/17 07/03/17 07/03/17 08:12 09:21 11:21 Temperature 97.5 F Pulse Rate 77 Respiratory 18 20 18 Rate Blood Pressure 145/71 (mmHg) O2 Sat by Pulse 99 Oximetry 07/03/17 07/03/17 07/03/17 12:02 12:21 13:21 Temperature 97.9 F Pulse Rate 78 Respiratory 20 18 18 Rate Blood Pressure 147/69 (mmHg) O2 Sat by Pulse 94 Oximetry 07/03/17 07/03/17 14:54 16:54 Temperature Pulse Rate Respiratory 18 16 Rate Blood Pressure (mmHg) O2 Sat by Pulse Oximetry Oxygen Devices in Use Now: None Appearance: no acute distress Ears/Nose/Mouth/Throat: NL Teeth, Lips, Gums, Clear Oropharnyx Neck: NL Appearance and Movements; NL JVP, Trachea Midline Respiratory: Symmetrical Chest Expansion and Respiratory Effort, - - fine crackles bases. Cardiovascular: NL Sounds; No Murmurs; No JVD, RRR Abdominal: NL Sounds; No Tenderness; No Distention, No Hepatosplenomegaly Extremities: - - 1+ edema in shins; left heel in new splint. right 5th toenail with dressing. Skin: No Rash or Ulcers Neurological: Alert and Oriented x 3, NL Muscle Strength and Tone Result Diagrams: 07/03/17 10:30 07/03/17 05:23 Additional Lab and Data: Abnormal Lab Results 07/01/17 07/01/17 07/02/17 16:55 21:29 06:36 WBC RBC Hgb Hct MCV MCH MCHC RDW Plt Count MPV Neut % (Auto) Lymph % (Auto) [place] % (Auto) Eos % (Auto) Baso % (Auto) Absolute Neuts (auto) Absolute Lymphs (auto) Absolute Monos (auto) Absolute Eos (auto) Absolute Basos (auto) Absolute Nucleated RBC Nucleated RBC % Sodium 135 Potassium 4.9 Chloride 97 L Carbon Dioxide 35 H Anion Gap 3 BUN 32 H Creatinine 1.17 H Est GFR ( Amer) 61.5 Est GFR (Non-Af Amer) 47.8 BUN/Creatinine Ratio 27.4 H Glucose 77 POC Glucose (mg/dL) 219 H 232 H Calcium 8.4 L Magnesium 1.7 L 07/02/17 07/02/17 07/02/17 06:36 07:45 11:28 WBC 6.7 RBC 2.59 L Hgb 7.5 L Hct 23 L MCV 89 MCH 29 MCHC 33 RDW 18 H Plt Count 175 MPV 8 Neut % (Auto) 76.1 Lymph % (Auto) 17.3 L [place] % (Auto) 3.1 Eos % (Auto) 2.6 Baso % (Auto) 0.9 Absolute Neuts (auto) 5.1 Absolute Lymphs (auto) 1.2 Absolute Monos (auto) 0.2 Absolute Eos (auto) 0.2 Absolute Basos (auto) 0.1 Absolute Nucleated RBC 0 Nucleated RBC % 0 Sodium Potassium Chloride Carbon Dioxide Anion Gap BUN Creatinine Est GFR ( Amer) Est GFR (Non-Af Amer) BUN/Creatinine Ratio Glucose POC Glucose (mg/dL) 108 H 135 H Calcium Magnesium Microbiology and Other Data: Microbiology 06/30/17 16:55 Aerobic Blood Culture - Preliminary Blood Venous No Growth Day 1 Anaerobic Blood Culture - Preliminary No Growth Day 1 Assess/Plan/Problems-Billing Assessment: 57 year old female PMH systolic CHF, IDDMT2, CKD3, PVD, recent prolonged admission for left heel ulcer and vulvular abscess p/w progressive SOB, rapid weight gain. Acute systolic CHF exacerbation. On linezolid still for heel. Improved with aggressive diuresis. Right CVA tenderness, negative UA (Hx of recent Ecoli UTIs.) Weight from 170lb 06/30 prior to admission-> 157lb 07/03. Anemic hgb 6.6 getting 1u pRBC. 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 stop bumex 2mg IV q12. Back to home torsemide 20mg daily starting 07/04 Edema much improved strict i/o daily weights coreg 1.56 am/4.68 pm Hx of needing milironine in Nov 2016 ECHO with improved EF 35-40%, moderate MVR, pHTN RVSP 52 (2) Abscess of heel, left Current Visit: No Status: Acute Code(s): L02.612 - CUTANEOUS ABSCESS OF LEFT FOOT SNOMED Code(s): 64721462 Comment: continue course of linezolid. (3) Gastroparesis due to secondary diabetes Current Visit: No Status: Acute Code(s): E13.43 - OTH DIABETES MELLITUS W DIABETIC AUTONOMIC (POLY)NEUROPATHY SNOMED Code(s): 8929749 Comment: continue reglan (did not get actually upon discharge?) (4) Peripheral vascular disease Current Visit: No Status: Acute Code(s): I73.9 - PERIPHERAL VASCULAR DISEASE , UNSPECIFIED SNOMED Code(s): 391334283 Comment: - Continue ASA and brilinta. (5) Uncontrolled type II diabetes mellitus with foot ulcer Current Visit: No Status: Acute Priority: Medium Code(s): E11.621 - TYPE 2 DIABETES MELLITUS WITH FOOT ULCER; E11.65 - TYPE 2 DIABETES MELLITUS WITH HYPERGLYCEMIA; L97.509 - NON-PRESSURE CHRONIC ULCER OTH PRT UNSP FOOT W UNSP SEVERITY SNOMED Code(s): 147531818 Comment: Continue Lantus 30 units qhs and SSI. BG labile 100-296 A1C was above 15.0 in April (6) CKD (chronic kidney disease) stage 3, GFR 30-59 ml/min Current Visit: No Status: Chronic Priority: Medium Code(s): N18.3 - CHRONIC KIDNEY DISEASE, STAGE 3 (MODERATE) SNOMED Code(s): 540753784 Comment: Creatinine improved from previous baseline on admission now with rise. BMP daily (7) Anemia Current Visit: No Status: Acute Priority: Medium Code(s): D64.9 - ANEMIA, UNSPECIFIED SNOMED Code(s): 536952873 Comment: transfuse 1u pRBC 07/03 for hgb 6.6 w/ headaches. CBC daily normocytic Likely AoCD/CKD s/p bone marrow 2017, no MDS. Scheduled to follow-up 3 times in coming weeks with Dr. Cutler for additional tests (8) COPD (chronic obstructive pulmonary disease) Current Visit: No Status: Chronic Code(s): J44.9 - CHRONIC OBSTRUCTIVE PULMONARY DISEASE, UNSPECIFIED SNOMED Code(s): 54682040 Comment: Continue spiriva and dulera. (9) CVA tenderness Current Visit: Yes Status: Acute Code(s): M54.9 - DORSALGIA, UNSPECIFIED SNOMED Code(s): 689949354 Comment: present on admission UA negative on admission. Recent(06/16, 06/22/17) Hx of Ecoli UTIs >100K sens to cefepime, meropenem, gent, macrobid) Believe she was tx with meropenem but clarify. Many antibiotic allergies Status and Disposition: medicine inpatient, anticipate discharge 07/05 Attending: Gurvinder Proctor
[2017-07-03] MEDS: Atorvastatin* 20 MG TAB PO SCH (22:02)
[2017-07-03] MEDS: Gabapentin CAP(*) 400 MG PO SCH (22:02)
[2017-07-04 04:54] LABS: Hematocrit 23 % (35-47); Hemoglobin 7.7 g/dl (12.0-16.0); Mean Corpuscular HGB Conc 34 g/dl (31-36); Mean Corpuscular Hemoglobin 30 pg (27-31); Mean Corpuscular Volume 89 fL (80-97); Mean Platelet Volume 8 um3 (7.4-10.4); Red Blood Count 2.59 10^6/ul (4.0-5.4); Red Cell Distribution Width 18 % (10.5-15); White Blood Count 6.1 10^3/ul (3.5-10.8)
[2017-07-04] MEDS: oxyCODONE/Acetamin 5/325 MG* TAB PO PRN ×3 (05:10→21:57)
[2017-07-04 05:18] LABS: BUN/Creatinine Ratio 27.2 (8-20); Calcium 8.4 mg/dL (8.6-10.3); EGFR African American 47.3 (>60); EGFR Non-African American 36.8 (>60); Magnesium 2.2 mg/dL (1.9-2.7); Potassium 4.8 mmol/L (3.5-5.0)
[2017-07-04] MEDS: Mometasone/Formoter 100/5 MDI INH SCH ×2 (08:03→20:17)
[2017-07-04] MEDS: Tiotropium CAP.INH* CAP.INH/18 MCG (USE ORDER SET !) INH SCH (08:04)
[2017-07-04] MEDS: Insulin LISPRO* 1 UNITS UNIT SUBCUT SCH ×4 (09:41→22:01)
[2017-07-04] MEDS: Torsemide TAB* 20 MG PO SCH (09:57)
[2017-07-04] MEDS: Aspirin EC Low Dose* 81 MG TAB.EC PO SCH (09:57)
[2017-07-04] MEDS: Ticagrelor* 90 MG TAB PO SCH ×2 (09:58→21:59)
[2017-07-04] MEDS: Carvedilol TAB* 3.125 MG PO SCH ×2 (09:58→21:56)
[2017-07-04] MEDS: Linezolid TAB* 600 MG PO SCH ×2 (09:58→21:59)
[2017-07-04] MEDS: Metoclopramide TAB* 10 MG PO SCH ×3 (09:58→21:58)
[2017-07-04] MEDS: Enalapril TAB* 5 MG PO SCH (09:58)
--- NOTE | 2017-07-04 11:24 | PN ---
Subjective Date of Service: 07/04/17 Interval History: Patient seen and examined at bedside. Denies CP, SOB. Reports significant improvement in DIAZ today following PRBC transfusion. No acute concerns. Patient on home torsemide, plan to monitor her and make sure she does well on home med regimen. Family History: Unchanged from Admission Social History: Unchanged from Admission Past Medical History: Unchanged from Admission Objective Active Medications: Albuterol/Ipratropium (Duoneb (Albuterol 2.5 Mg/Ipratropium 0.5 Mg)) 1 neb INH TID PRN PRN Reason: SHORTNESS OF BREATH Aspirin (Aspirin Ec Low Dose*) 81 mg PO DAILY [facility] Last Admin: 07/04/17 09:57 Dose: 81 mg Atorvastatin Calcium (Lipitor*) 20 mg PO BEDTIME [facility] Last Admin: 07/03/17 22:02 Dose: 20 mg Carvedilol (Coreg Tab*) 1.5625 mg PO QAM [facility] Last Admin: 07/04/17 09:58 Dose: 1.5625 mg Carvedilol (Coreg Tab*) 4.6875 mg PO BEDTIME [facility] Last Admin: 07/03/17 22:00 Dose: 4.6875 mg Dextrose (D50w Syringe 50 Ml*) 12.5 gm IV PUSH .FOR FS < 60 - SS PRN PRN Reason: FS < 60 Docusate Sodium (Colace Cap*) 100 mg PO BID PRN PRN Reason: constipation Last Admin: 07/03/17 09:22 Dose: 100 mg Enalapril Maleate (Vasotec Tab*) 5 mg PO DAILY [facility] Last Admin: 07/04/17 09:58 Dose: 5 mg Gabapentin (Neurontin Cap(*)) 1,200 mg PO BEDTIME [facility] Last Admin: 07/03/17 22:02 Dose: 1,200 mg Heparin Sodium (Porcine) (Heparin Flush Port (Ivad)) 5 ml FLUSH DAILY [facility] PRN Reason: Protocol Last Admin: 07/04/17 09:57 Dose: 5 ml Insulin Glargine (Lantus(*)) 30 units SUBCUT QPM [facility] Last Admin: 07/03/17 17:32 Dose: 10 unit Insulin Human Lispro (Humalog*) 0 units SUBCUT ACHS [facility] PRN Reason: Protocol Last Admin: 09/24/17 09:41 Dose: Not Given Linezolid (Zyvox Tab*) 600 mg PO Q12H [facility] Last Admin: 07/04/17 09:58 Dose: 600 mg Metoclopramide HCl (Reglan Tab*) 5 mg PO TID [facility] Last Admin: 07/04/17 09:58 Dose: 5 mg Mometasone Furoate/Formoterol Fumar (Dulera 100/5 Mdi*) 1 puff INH BID [facility] Last Admin: 07/04/17 08:03 Dose: 1 puff Ondansetron HCl (Zofran Inj*) 4 mg IV Q6H PRN PRN Reason: NAUSEA Last Admin: 07/02/17 20:13 Dose: 4 mg Oxycodone/Acetaminophen (Percocet 5/325 Tab*) 1 - 2 tab PO Q4H PRN PRN Reason: PAIN Last Admin: 07/04/17 05:10 Dose: 2 tab Pharmacy Profile Note (Scopolomine Patch Remove*) 1 note PATCH OFF Q72H [facility] Polyethylene Glycol/Electrolytes (Miralax*) 17 gm PO DAILY PRN PRN Reason: CONSTIPATION Scopolamine (Transderm-Scop 1.5 Mg Patch*) 1 patch TRANSDERM Q72H [facility] Last Admin: 07/03/17 01:18 Dose: 1 patch Senna (Senokot Tab*) 1 tab PO DAILY PRN PRN Reason: CONSTIPATION Ticagrelor (Brilinta*) 90 mg PO BID [facility] Last Admin: 07/04/17 09:58 Dose: 90 mg Tiotropium [place] (Spiriva Cap.Inh*) 1 cap INH DAILY [facility] Last Admin: 07/04/17 08:04 Dose: 1 cap Torsemide (Demadex*) 20 mg PO DAILY [facility] Last Admin: 07/04/17 09:57 Dose: 20 mg Vital Signs 07/03/17 07/03/17 07/03/17 12:02 12:21 13:21 Temperature 97.9 F Pulse Rate 78 Respiratory 20 18 18 Rate Blood Pressure 147/69 (mmHg) O2 Sat by Pulse 94 Oximetry 07/03/17 07/03/17 07/03/17 14:54 16:37 16:54 Temperature 98.1 F Pulse Rate 84 Respiratory 18 16 16 Rate Blood Pressure 149/77 (mmHg) O2 Sat by Pulse 98 Oximetry 07/03/17 07/03/1717 20:11 21:59 22:00 Temperature 98.7 F Pulse Rate 93 Respiratory 16 18 16 Rate Blood Pressure 153/73 (mmHg) O2 Sat by Pulse 97 Oximetry 07/03/17 07/03/17 07/03/17 22:02 23:51 23:59 Temperature 98.0 F Pulse Rate 87 Respiratory 18 18 18 Rate Blood Pressure 154/79 (mmHg) O2 Sat by Pulse 99 Oximetry 07/04/17 07/04/17 07/04/17 00:02 04:12 05:10 Temperature 98.3 F Pulse Rate 79 Respiratory 18 16 18 Rate Blood Pressure 147/77 (mmHg) O2 Sat by Pulse 96 Oximetry 07/04/17 07/04/17 07/04/17 07:10 07:58 07:59 Temperature 97.7 F Pulse Rate 79 72 Respiratory 14 14 16 Rate Blood Pressure 156/83 (mmHg) O2 Sat by Pulse 96 100 Oximetry Oxygen Devices in Use Now: None Appearance: Female patient, sitting up in bed, NAD Eyes: No Scleral Icterus Ears/Nose/Mouth/Throat: Mucous Membranes Moist Neck: NL Appearance and Movements; NL JVP Respiratory: Symmetrical Chest Expansion and Respiratory Effort, - - fine crackles in bases, good aeration throughout Cardiovascular: NL Sounds; No Murmurs; No JVD, RRR Abdominal: NL Sounds; No Tenderness; No Distention Extremities: - - pretibial edema 1+, left heel dressing c/d/i, right 5th toe dressing Neurological: Alert and Oriented x 3 Lines/Tubes/Other Access: Clean, Dry and Intact Peripheral IV Nutrition: Taking PO's Result Diagrams: 07/04/17 04:41 07/04/17 04:41 Additional Lab and Data: Abnormal Lab Results 07/01/17 07/01/17 07/02/17 16:55 21:29 06:36 WBC RBC Hgb Hct MCV MCH MCHC RDW Plt Count MPV Neut % (Auto) Lymph % (Auto) [place] % (Auto) Eos % (Auto) Baso % (Auto) Absolute Neuts (auto) Absolute Lymphs (auto) Absolute Monos (auto) Absolute Eos (auto) Absolute Basos (auto) Absolute Nucleated RBC Nucleated RBC % Sodium 135 Potassium 4.9 Chloride 97 L Carbon Dioxide 35 H Anion Gap 3 BUN 32 H Creatinine 1.17 H Est GFR ( Amer) 61.5 Est GFR (Non-Af Amer) 47.8 BUN/Creatinine Ratio 27.4 H Glucose 77 POC Glucose (mg/dL) 219 H 232 H Calcium 8.4 L Magnesium 1.7 L 07/02/17 07/02/17 07/02/17 06:36 07:45 11:28 WBC 6.7 RBC 2.59 L Hgb 7.5 L Hct 23 L MCV 89 MCH 29 MCHC 33 RDW 18 H Plt Count 175 MPV 8 Neut % (Auto) 76.1 Lymph % (Auto) 17.3 L [place] % (Auto) 3.1 Eos % (Auto) 2.6 Baso % (Auto) 0.9 Absolute Neuts (auto) 5.1 Absolute Lymphs (auto) 1.2 Absolute Monos (auto) 0.2 Absolute Eos (auto) 0.2 Absolute Basos (auto) 0.1 Absolute Nucleated RBC 0 Nucleated RBC % 0 Sodium Potassium Chloride Carbon Dioxide Anion Gap BUN Creatinine Est GFR ( Amer) Est GFR (Non-Af Amer) BUN/Creatinine Ratio Glucose POC Glucose (mg/dL) 108 H 135 H Calcium Magnesium Microbiology and Other Data: Microbiology 06/30/17 16:55 Aerobic Blood Culture - Preliminary Blood Venous No Growth Day 1 Anaerobic Blood Culture - Preliminary No Growth Day 1 Assess/Plan/Problems-Billing Assessment: 57 year old female H systolic CHF, IDDMT2, CKD3, PVD, recent prolonged admission for left heel ulcer and vulvular abscess p/w progressive SOB, rapid weight gain. Acute systolic CHF exacerbation. On linezolid still for heel. Improved with aggressive diuresis. Right CVA tenderness, negative UA (Hx of recent Ecoli UTIs.) Weight from 170lb 06/30 prior to admission-> 157lb 07/03. Anemic hgb 6.6 s/p 1u pRBC. - Patient Problems (1) Acute on chronic systolic (congestive) heart failure Code(s): I50.23 - ACUTE ON CHRONIC SYSTOLIC (CONGESTIVE) HEART FAILURE Comment : Weight has dropped 13 lbs since admission. Continue torsemide 20mg daily (previously on IV bumetanide) Edema much improved Strict I/O, daily weights Continue carvedilol 1.56 am/4.68 pm Hx of needing milironine in Nov 2016 ECHO with improved EF 35-40%, moderate MVR, pHTN RVSP 52 (2) Abscess of heel, left Code(s): L02.612 - CUTANEOUS ABSCESS OF LEFT FOOT Comment: Wound cx with no growth so far. Continue course of linezolid. (3) Gastroparesis due to secondary diabetes Code(s): E13.43 - OTH DIABETES MELLITUS W DIABETIC AUTONOMIC (POLY)NEUROPATHY Comment: Continue metoclopramide (did not get actually upon discharge?) (4) Peripheral vascular disease Code(s): I73.9 - PERIPHERAL VASCULAR DISEASE, UNSPECIFIED Comment: Continue ASA and brilinta. (5) Uncontrolled type II diabetes mellitus with foot ulcer Code(s): E11.621 - TYPE 2 DIABETES MELLITUS WITH FOOT ULCER; E11.65 - TYPE 2 DIABETES MELLITUS WITH HYPERGLYCEMIA; L97.509 - NON-PRESSURE CHRONIC ULCER OTH PRT UNSP FOOT W UNSP SEVERITY Comment: Continue Lantus 30 units qhs and SSI. BG labile 100-296 A1C was above 15.0 in April (6) CKD (chronic kidney disease) stage 3, GFR 30-59 ml/min Code(s): N18.3 - CHRONIC KIDNEY DISEASE, STAGE 3 (MODERATE) Comment: Creatinine improved from previous baseline on admission now with rise. Suspect IV bumetanide. BMP daily (7) Anemia Code(s): D64.9 - ANEMIA, UNSPECIFIED Comment: S/p 1 unit PRBC on 07/03 CBC daily Normocytic Likely AoCD/CKD s/p bone marrow 2017, no MDS. Scheduled to follow-up 3 times in coming weeks with Dr. Cutler for additional tests (8) COPD (chronic obstructive pulmonary disease) Code(s): J44.9 - CHRONIC OBSTRUCTIVE PULMONARY DISEASE, UNSPECIFIED Comment: Continue Spiriva and Dulera. Status and Disposition: medicine inpatient, anticipate discharge 07/05
[2017-07-04] MEDS: Insulin GLARGINE(*) 1 UNITS UNIT SUBCUT SCH (18:24)
[2017-07-04 20:55] LABS: Hematocrit 24 % (35-47); Hemoglobin 7.8 g/dl (12.0-16.0)
[2017-07-04] MEDS: Ondansetron INJ* 2 MG/ML VIAL IV PRN (21:04)
[2017-07-04] MEDS: Gabapentin CAP(*) 400 MG PO SCH (21:58)
[2017-07-04] MEDS: Atorvastatin* 20 MG TAB PO SCH (21:59)
[2017-07-05] MEDS: Ondansetron INJ* 2 MG/ML VIAL IV PRN ×2 (05:37→11:55)
[2017-07-05 06:00] LABS: Hematocrit 23 % (35-47); Hemoglobin 7.6 g/dl (12.0-16.0); Mean Corpuscular HGB Conc 33 g/dl (31-36); Mean Corpuscular Hemoglobin 30 pg (27-31); Mean Corpuscular Volume 90 fL (80-97); Mean Platelet Volume 8 um3 (7.4-10.4); Red Blood Count 2.53 10^6/ul (4.0-5.4); Red Cell Distribution Width 18 % (10.5-15); White Blood Count 7.5 10^3/ul (3.5-10.8)
[2017-07-05 06:17] LABS: BUN/Creatinine Ratio 26.1 (8-20); Calcium 8.3 mg/dL (8.6-10.3); EGFR African American 42.6 (>60); EGFR Non-African American 33.1 (>60)
[2017-07-05] MEDS: Insulin LISPRO* 1 UNITS UNIT SUBCUT SCH ×2 (08:17→11:56)
[2017-07-05] MEDS: Aspirin EC Low Dose* 81 MG TAB.EC PO SCH (08:18)
[2017-07-05] MEDS: Carvedilol TAB* 3.125 MG PO SCH (08:18)
[2017-07-05] MEDS: Metoclopramide TAB* 10 MG PO SCH (08:19)
[2017-07-05] MEDS: Ticagrelor* 90 MG TAB PO SCH (08:19)
[2017-07-05] MEDS: Linezolid TAB* 600 MG PO SCH (08:19)
[2017-07-05] MEDS: Torsemide TAB* 20 MG PO SCH (08:19)
[2017-07-05] MEDS: Enalapril TAB* 5 MG PO SCH (08:19)
[2017-07-05] MEDS: Tiotropium CAP.INH* CAP.INH/18 MCG (USE ORDER SET !) INH SCH (08:46)
[2017-07-05] MEDS: Mometasone/Formoter 100/5 MDI INH SCH (08:48)
--- NOTE | 2017-07-05 11:08 | PN ---
Subjective Date of Service: 07/05/17 Interval History: Patient seen and examined at bedside. Denies fever, chills, shortness of breath , chest discomfort, N/V/D. Pt states that she had some vomiting last evening, she feels that her dinner didn't agree with her. Ms. Galarza is feeling well and is anxious for discharge. She states that she has no insulin pens or needles at home and has been out for about a month. Discussed with Michelle the importance of taking her medications and keeping follow-up appointments. Tele: V paced, rate 80's. Family History: Unchanged from Admission Social History: Unchanged from Admission Past Medical History: Unchanged from Admission Objective Active Medications: Albuterol/Ipratropium (Duoneb (Albuterol 2.5 Mg/Ipratropium 0.5 Mg)) 1 neb INH TID PRN Reason: SHORTNESS OF BREATH Aspirin (Aspirin Ec Low Dose*) 81 mg PO DAILY [facility] Atorvastatin Calcium (Lipitor*) 20 mg PO BEDTIME [facility] Carvedilol (Coreg Tab*) 1.5625 mg PO QAM [facility] Carvedilol (Coreg Tab*) 4.6875 mg PO BEDTIME [facility] Dextrose (D50w Syringe 50 Ml*) 12.5 gm IV PUSH .FOR FS < 60 - SS PRN Reason: FS < 60 Docusate Sodium (Colace Cap*) 100 mg PO BID PRN Reason: constipation Enalapril Maleate (Vasotec Tab*) 5 mg PO DAILY [facility] Gabapentin (Neurontin Cap(*)) 1,200 mg PO BEDTIME [facility] Heparin Sodium (Porcine) (Heparin Flush Port (Ivad)) 5 ml FLUSH DAILY [facility] Reason: Protocol Insulin Glargine (Lantus(*)) 30 units SUBCUT QPM [facility] Insulin Human Lispro (Humalog*) 0 units SUBCUT ACHS [facility] Linezolid (Zyvox Tab*) 600 mg PO Q12H [facility] Metoclopramide HCl (Reglan Tab*) 5 mg PO TID [facility] Mometasone Furoate/Formoterol Fumar (Dulera 100/5 Mdi*) 1 puff INH BID [facility] Ondansetron HCl (Zofran Inj*) 4 mg IV Q6H PRN Reason: NAUSEA Oxycodone/Acetaminophen (Percocet 5/325 Tab*) 1 - 2 tab PO Q4H PRN Reason: PAIN Pharmacy Profile Note (Scopolomine Patch Remove*) 1 note PATCH OFF Q72H [facility] Polyethylene Glycol/Electrolytes (Miralax*) 17 gm PO DAILY PRN Reason: CONSTIPATION Scopolamine (Transderm-Scop 1.5 Mg Patch*) 1 patch TRANSDERM Q72H [facility] Senna (Senokot Tab*) 1 tab PO DAILY PRN Reason: CONSTIPATION Ticagrelor (Brilinta*) 90 mg PO BID [facility] Tiotropium [place] (Spiriva Cap.Inh*) 1 cap INH DAILY [facility] Torsemide (Demadex*) 20 mg PO DAILY [facility] Vital Signs 07/04/17 07/04/17 07/04/17 13:31 13:39 15:31 Temperature 98.6 F Pulse Rate 86 Respiratory 16 16 16 Rate Blood Pressure 161/86 (mmHg) O2 Sat by Pulse 97 Oximetry 07/04/17 07/04/17 07/04/17 17:10 17:11 19:54 Temperature 98.2 F 98.2 F 99.0 F Pulse Rate 95 94 99 Respiratory 16 14 Rate Blood Pressure 164/79 164/79 171/90 (mmHg) O2 Sat by Pulse 94 96 95 Oximetry 07/04/17 07/04/17 07/04/17 20:00 20:19 21:57 Temperature Pulse Rate 69 Respiratory 16 16 16 Rate Blood Pressure (mmHg) O2 Sat by Pulse 99 Oximetry 07/04/17 07/04/17 07/05/17 21:58 23:52 03:49 Temperature 99.2 F 98.6 F Pulse Rate 96 92 Respiratory 16 16 18 Rate Blood Pressure 152/78 142/70 (mmHg) O2 Sat by Pulse 96 97 Oximetry 07/05/17 07/05/17 07:50 08:05 Temperature 98.0 F Pulse Rate 82 Respiratory 16 16 Rate Blood Pressure 151/79 (mmHg) O2 Sat by Pulse 97 Oximetry Oxygen Devices in Use Now: None Appearance: NAD, laying in bed Ears/Nose/Mouth/Throat: Mucous Membranes Moist Respiratory: Symmetrical Chest Expansion and Respiratory Effort, Clear to Auscultation Cardiovascular: NL Sounds; No Murmurs; No JVD, RRR Abdominal: NL Sounds; No Tenderness; No Distention Skin: No Rash or Ulcers, - - Dressing to left LE clean, dry and intact Neurological: Alert and Oriented x 3, NL Muscle Strength and Tone Lines/Tubes/Other Access: Clean, Dry and Intact Other Access - Power port to right chest, site benign Nutrition: Taking PO's Result Diagrams: 07/05/17 05:35 07/05/17 05:35 Additional Lab and Data: Microbiology and Other Data: Microbiology 06/30/17 16:55 Aerobic Blood Culture - Preliminary Blood Venous No Growth Day 1 Anaerobic Blood Culture - Preliminary No Growth Day 1 Assess/Plan/Problems-Billing Assessment: Ms. Galarza is a 57 year old female H systolic CHF, IDDMT2, CKD3, PVD, recent prolonged admission for left heel ulcer and vulvular abscess p/w progressive SOB , rapid weight gain. Acute systolic CHF exacerbation. On oral linezolid still for heel. Improved with aggressive diuresis. Right CVA tenderness, negative UA ( Hx of recent Ecoli UTIs.) - Patient Problems (1) Acute on chronic systolic (congestive) heart failure Code(s): I50.23 - ACUTE ON CHRONIC SYSTOLIC (CONGESTIVE) HEART FAILURE SNOMED Code(s): 115505730 Comment: - Weight has dropped ~ 12 lbs since admission - Edema much improved - ECHO with improved EF 35-40%, moderate MVR, pHTN RVSP 52 - Hx of needing milironine in Nov 2016 - Strict I/O, daily weights - Continue carvedilol 1.56 am/4.68 pm - Continue torsemide 20mg daily (previously on IV bumetanide) (2) Abscess of heel, left Code(s): L02.612 - CUTANEOUS ABSCESS OF LEFT FOOT SNOMED Code(s): 83617177 Comment: - S/p I&D and debridment by Dr. Hess 06/21/17. - Cultures yielded no growth. - ID input appreciated - continue PO Linezolide. (3) Gastroparesis due to secondary diabetes Code(s): E13.43 - OTH DIABETES MELLITUS W DIABETIC AUTONOMIC (POLY)NEUROPATHY SNOMED Code(s): 8652141 Comment: - Continue metoclopramide TID (4) Peripheral vascular disease Code(s): I73.9 - PERIPHERAL VASCULAR DISEASE, UNSPECIFIED SNOMED Code(s): 395610446 Comment: - Continue ASA and brilinta. (5) Uncontrolled type II diabetes mellitus with foot ulcer Code(s): E11.621 - TYPE 2 DIABETES MELLITUS WITH FOOT ULCER; E11.65 - TYPE 2 DIABETES MELLITUS WITH HYPERGLYCEMIA; L97.509 - NON-PRESSURE CHRONIC ULCER OTH PRT UNSP FOOT W UNSP SEVERITY SNOMED Code(s): 868081187 Comment: - Glucose labile, 100-170 - A1C was above 15.0 in April - Continue Lantus 30 units qhs (6) CKD (chronic kidney disease) stage 3, GFR 30-59 ml/min Code(s): N18.3 - CHRONIC KIDNEY DISEASE, STAGE 3 (MODERATE) SNOMED Code(s): 998650185 Comment: - Creatinine improved from previous baseline on admission now with rise. - Suspect secpndary to IV bumetanide. - Follow BMP outpatient (7) Anemia Code(s): D64.9 - ANEMIA, UNSPECIFIED SNOMED Code(s): 459724445 Comment: - Suspect this is likely anemia of chronic disease. - BM biopsy done on 04/19/17 showed mildly hypercellular marrow with no evidence of hematologic malignancy. (8) CAD (coronary artery disease) Code(s): I25.10 - ATHSCL HEART DISEASE OF [place] CORONARY ARTERY W/O ANG PCTRS SNOMED Code(s): 93371904 Comment: - No complaints of chest pain. Her echo shows an EF of 35-40%. - Continue Lipitor, ASA and Brilinta (9) COPD (chronic obstructive pulmonary disease) Code(s): J44.9 - CHRONIC OBSTRUCTIVE PULMONARY DISEASE, UNSPECIFIED SNOMED Code(s): 34063905 Comment: - Continue Spiriva and Dulera. (10) DVT prophylaxis Code(s): VPN2716 - SNOMED Code(s): 380003942 Comment: (11) Full code status Code(s): Z78.9 - OTHER SPECIFIED HEALTH STATUS SNOMED Code(s): 553163030 Status and Disposition: Inpatient, stable for discharge to home today.
[2017-07-05 11:44] VITALS: BP 154/79
[2017-07-06] MEDS ORDERED: Scopolomine PATCH Remove* 1 NOTE MISC PATCH OFF SCH (01:00)
--- NOTE | 2017-07-06 15:45 | DS ---
CC: Dr. Brent Damon; Dr. Janusz Cutler; Dr. Rolando Johnson; Dr. Tom Hess; Dr. Moises Valdes* DISCHARGE SUMMARY: DATE OF ADMISSION: 06/30/17 DATE OF DISCHARGE: 07/05/17 ATTENDING PHYSICIAN: Dr. Jolanta Mckinley* (dictated by Cassidy Arnold NP). PRIMARY CARE PROVIDER: Dr. Moises Valdes. PRIMARY DIAGNOSES: 1. Acute on chronic systolic heart failure. 2. Abscess to the left heal, status post debridement on 06/21/17. 3. Gastroparesis secondary to diabetes mellitus. SECONDARY DIAGNOSES: 1. Peripheral vascular disease. 2. Diabetes mellitus type 2. 3. Chronic kidney disease, stage 3. 4. Anemia of chronic disease. 5. History of coronary artery disease. 6. Chronic obstructive pulmonary disease. STUDIES WHILE IN THE HOSPITAL: 1. Chest x-ray on 06/30/17. Radiologist impression: In the correct clinical setting, the chest x-ray findings could be compatible with mild exacerbation of congestive heart failure. 2. Transthoracic echocardiogram on 07/01/17. Wind Farm Engineer conclusion: Suboptimal study for interpretation as per the comment below. The study is technically limited due to the poor parasternal windows. The study is technically limited due to the patient's body habitus. IV contrast is used for LV function analysis. The study was technically limited due to the patient's smoking history. There is a focal wall motion abnormality present. There is a kfptbotg-cr-uceyyn hypokinesis of the ddxwmd-mk-wxbbxw anterior, gvdx-xt-hyaqhe anterior septal, apical, and distal inferior wall. There is a moderate-to- severely decreased left ventricular systolic function. The estimated ejection fraction is 35% to 40%. The left atrium is ymnz-oz-thnsdmwzhy dilated. There is moderate mitral regurgitation, mild-to- moderate tricuspid regurgitation. There is evidence of moderate pulmonary hypertension. Cumulative report of study from 12/02/16 overall LV systolic function is mildly improved (was 30% to 35%). The degree of pulmonary hypertension has increased (was abnormal on the last study). DISCHARGE MEDICATIONS: New home medication: Reglan 5 mg oral with meals. Continued home medications: 1. Lantus 30 units subcutaneous ever evening. 2. Dulera 100/5 one puff inhalation twice daily. 3. Aspirin 81 mg oral daily. 4. Torsemide 20 mg oral daily. 5. Mirapex 5 mg oral at bedtime. 6. Neurontin 1800 mg oral daily at bedtime. 7. DuoNeb 2.5/0.5 one neb 3 times daily as needed for shortness of breath. 8. Nitroglycerin 0.4 mg sublingual every 5 minutes as needed for chest pain. 9. Spiriva 1 capsule inhalation daily. 10. Glucagon 1 mg IM as needed for glucose less than 60. 11. EpiPen 0.3 mg IM once as needed for allergy symptoms. 12. Brilinta 90 mg oral twice daily. 13. Acidophilus 1 capsule oral daily. 14. Colace 100 mg oral twice daily as needed for constipation. 15. Heparin flush 3 mL intravenous to port as needed. 16. Repatha SureClick 140 mg subcutaneous every 40 days. 17. Enalapril 5 mg oral daily. 18. Atorvastatin 20 mg oral daily at bedtime. 19. Carvedilol 1.5625 mg oral every morning. 20. Carvedilol 4.6875 mg oral daily at bedtime. 21. Nystatin topical 3 times daily. 22. MiraLAX 17 g oral daily as needed for constipation. 23. Percocet 5/325 mg 1 to 2 tablets oral every 4 hours as needed for pain. 24. Linezolid 600 mg oral daily. 25. Lantus 30 units subcutaneous daily. Discontinued home medications: Spironolactone. Changed home medications: Torsemide 20 mg, changed from as needed to daily. Medications to discuss with your primary care provider - metolazone. HISTORY OF PRESENT ILLNESS/HOSPITAL COURSE: Ms. Galarza is a 57-year-old female with past medical history significant for diabetes mellitus; coronary artery disease, status post CABG; peripheral vascular disease; CVA; chronic kidney disease stage 3; hypertension; hyperlipidemia; left subclavian stenosis, status post stenting; left foot osteomyelitis, status post partial amputation, and restless leg syndrome, who presented to the emergency room with complaints of shortness of breath. The patient had recently been hospitalized between June 16 and June 28 for left heal abscess and valvular abscess and then E. coli UTI. The patient had been at her baseline weight of approximately 144 pounds prior to that admission, but noted that she had gained weight at discharge and was approximately 160 pounds. The patient had noticed some shortness of breath during the hospitalization, but felt that she was ready to go home. The patient presented to Dr. Hess's office for evaluation of her foot in followup after a left calcaneus debridement and drainage of an abscess. With that appointment the patient was noted to be a significantly short of breath and had requested to be transferred to the emergency room for further evaluation of her symptoms. While in the emergency room, the patient's blood pressure was found to be 195/ 92 initially she was afebrile with heart rate in the 80s to 90s. She had labs notable for potassium 6.0, sodium of 128, and creatinine 0.95, lactic acid 1.7, troponin 0.03, BNP of 1233, alk phos 146. White blood cell count 10.3. The hospitalists were asked to evaluate the patient for admission. While in the hospital, the patient was treated for acute on chronic systolic heart failure. She had her diuretics changed around and was stable on torsemide 20 mg oral daily. She was continued on her home carvedilol. The patient had an echo showing an improved EF of 35% to 40% previously 30% to 35%. The patient lost approximately 12 pounds since her admission and her edema was much improved. As far as the patient's left heel abscess, she was continued on her oral Linezolid. Her cultures had no growth. The patient was previously diagnosed with gastroparesis secondary to her diabetes and had been started on Reglan. It sounds like the patient had never picked up her prescription and started on the medication. So, she was started on Reglan during her stay and her nausea started to improve. As far as the patient's blood sugars, her glucoses have been labile in the 100s to 170s near the time of discharge. Her last hemoglobin A1c was 15.0 in April and she was continued on her home Lantus. As far as the patient's chronic kidney disease, she initially presented with one of the lowest creatinines she had, but during her stay her creatinine increased closer to her similar baseline with the day of discharge about 1.60. The patient was also found to be anemic, suspected secondary to anemia of chronic disease, she had a bone marrow biopsy done on April 19 and is following with Hematology for this. The patient has continued to do well and was anxious for discharge home today. Ms. Galarza is stable for discharge home today. PHYSICAL EXAMINATION: Vital signs are as follows: Temperature 98.1, heart rate 83, respiratory rate 20, O2 sat 97% on room air, blood pressure 154/79. DISCHARGE PLAN: Ms. Galarza will be discharged to home today. ACTIVITY: As tolerated. She was instructed to be nonweightbearing on her left lower extremity. DIET: She should be on consistent carbohydrate, low sodium, no added salt diet. FOLLOWUP: For the patient's systolic heart failure, she has been asked to monitor her weights daily and she will call Dr. Keisha Delcid's office if she gains more than 3 pounds in a 24 hour period, but for now she has been continued on Torsemide. Her home spironolactone has been held. The patient should be seen and followed by Dr. Johnson with Cardiology. She has an appointment on July 19 at 8 a.m. As far as the patient's left lower extremity infection, she will be continued on Linezolid and she should follow up with Dr. Damon and she has an appointment on July 19 at 3:40 p.m. For the patient's left heel infection, she should be keep the dressing clean, dry and intact and be seen in Dr. Hess's office for follow up on WednesdayJuly 07. She has an appointment with [facility]. The patient has a followup appointment with her primary care provider, Dr. Valdes, on July 08 at 2:10 p.m. As far as the patient's chronic anemia, she has a followup appointment with Dr. Cutler on September 07 at 3 p.m. prior that she has an appointment at his office on August 17 at 10:10 for labs prior to her follow up with him. The patient has also been referred to [facility]. She has been asked to please call and make an appointment with them, so they can assist her in managing her diabetes mellitus. It should be noted that the patient reports being out of insulin for approximately a month, I have sent a script for Lantus pens and needles. The patient has been encouraged to please keep all of her followup appointments and to take her medications as directed. This is a summarized report of a complex medical history and hospital stay. For further details, please see the entire medical record. TIME SPENT: Time for this discharge was approximately 50 minutes, greater than half of that was spent kwbz-yi-gwpd with the patient, discussing discharge plans and instructions. CONDITION ON DISCHARGE: Stable. CASSIDY ROQUE, BOX TOE STITCHER [id number]/[facility] #: [id number] [facility]Jaylen
== END 2017-07-05 13:40 | disposition home or self-care (01) | DRG 291 ==
LOC: ED 15:33 → MEDTELE 18:07
PROVIDERS: ADMIT Internal Medicine; ATTEND Hospitalist
PROC: 30233N1 Transfusion of Nonautologous Red Blood Cells into Peripheral Vein, Percutaneous Approach (ICD-10-PCS; principal; 2017-07-03)
DX: I13.0 Hypertensive heart and chronic kidney disease with heart failure and stage 1 through stage 4 chronic kidney disease, or unspecified chronic kidney disease (principal); I50.23 Acute on chronic systolic (congestive) heart failure; E11.22 Type 2 diabetes mellitus with diabetic chronic kidney disease; E11.51 Type 2 diabetes mellitus with diabetic peripheral angiopathy without gangrene; K31.84 Gastroparesis; E11.43 Type 2 diabetes mellitus with diabetic autonomic (poly)neuropathy; L97.429 Non-pressure chronic ulcer of left heel and midfoot with unspecified severity; L02.612 Cutaneous abscess of left foot; N18.3 Chronic kidney disease, stage 3 (moderate); E11.65 Type 2 diabetes mellitus with hyperglycemia; I25.10 Atherosclerotic heart disease of native coronary artery without angina pectoris; E78.5 Hyperlipidemia, unspecified; G25.81 Restless legs syndrome; F17.210 Nicotine dependence, cigarettes, uncomplicated; E87.5 Hyperkalemia; D63.1 Anemia in chronic kidney disease; E11.621 Type 2 diabetes mellitus with foot ulcer; M54.9 Dorsalgia, unspecified; J44.9 Chronic obstructive pulmonary disease, unspecified; I70.8 Atherosclerosis of other arteries; Z95.1 Presence of aortocoronary bypass graft; Z79.01 Long term (current) use of anticoagulants; Z79.84 Long term (current) use of oral hypoglycemic drugs; Z79.82 Long term (current) use of aspirin; Z79.4 Long term (current) use of insulin; Z79.899 Other long term (current) drug therapy; Z88.5 Allergy status to narcotic agent; Z88.0 Allergy status to penicillin; Z88.8 Allergy status to other drugs, medicaments and biological substances; Z88.6 Allergy status to analgesic agent; Z91.030 Bee allergy status; Z86.73 Personal history of transient ischemic attack (TIA), and cerebral infarction without residual deficits
CPT/HCPCS: 36415; 71020; 80048; 80053; 81003; 81015; 82553; 83605; 83735; 83880; 84484; 85014; 85018; 85025; 85730; 86140; 86850; 86900; 86901; 86922; 87040; 87070; 87205; 93005; 93306; 94640; 94760; 99406; A9270-GY; C8929; J0610; J1642; J1940; J2270; J2405; J3475; P9040

== ENCOUNTER 2017-07-09 18:41 | Inpatient (IN) | payer MEDICARE, MEDICAID ==
[2017-07-09 20:24] LABS: Comments Flag Yes; Hematocrit 20 % (35-47); Hemoglobin 6.7 g/dl (12.0-16.0); Mean Corpuscular HGB Conc 33 g/dl (31-36); Mean Corpuscular Hemoglobin 30 pg (27-31); Mean Corpuscular Volume 90 fL (80-97); Mean Platelet Volume 8 um3 (7.4-10.4); Red Blood Count 2.26 10^6/ul (4.0-5.4); Red Cell Distribution Width 17 % (10.5-15); White Blood Count 6.4 10^3/ul (3.5-10.8)
[2017-07-09 20:25] LABS: Add Diff/Slide Review? Slide Review Added
[2017-07-09 20:41] LABS: Albumin 2.8 g/dL (3.2-5.2); BUN/Creatinine Ratio 30.7 (8-20); C Reactive Protein 6.51 mg/L (< 5.00); Calcium 8.2 mg/dL (8.6-10.3); EGFR African American 63.4 (>60); EGFR Non-African American 49.3 (>60); Globulin 2.6 g/dL (2-4); Magnesium 1.6 mg/dL (1.9-2.7); Potassium 3.7 mmol/L (3.5-5.0); Total Bilirubin 0.4 mg/dL (0.2-1.0); Total Protein 5.4 g/dL (6.4-8.9)
[2017-07-09 20:45] LABS: Troponin I 0.05 ng/mL (<0.04)
--- NOTE | 2017-07-09 20:46 | RAD ---
INDICATION: Shortness of breath. COMPARISON: Comparison is made with a prior study from June 30, 2017. TECHNIQUE: A portable view of the chest was obtained. FINDINGS: The patient appears to be status post coronary artery bypass surgery. The heart is moderately enlarged and unchanged. There is a multilead transvenous pacemaker present. There is a central venous catheter entering on the right side. The catheter tip projects over the right atrium. There is mild diffuse prominence of the interstitial markings and a trace right pleural effusion suggestive of congestive heart failure. IMPRESSION: FINDINGS SUGGESTIVE OF CONGESTIVE HEART FAILURE.
[2017-07-09] MEDS ORDERED: Furosemide IV* 10 MG/ML VIAL (40 MG) IV SLOW PU ONE (20:53)
[2017-07-09 21:02] LABS: TSH (Thyroid Stimulating Horm) 1.14 mcIU/mL (0.34-5.60)
[2017-07-09] MEDS ORDERED: Dextrose 50% Syringe 50 ML* 25 GM/50 ML SYRINGE IV PUSH PRN (21:35)
[2017-07-09] MEDS ORDERED: Acetaminophen TAB* 325 MG PO PRN (21:35)
[2017-07-09] MEDS ORDERED: Polyethylene Glycol 3350* 17 GM PACKET PO PRN (21:37)
[2017-07-09] MEDS ORDERED: Albuterol/Ipratropium NEB.SOL* Albuterol 2.5 MG/Ipratropium 0.5 MG 3 ML INH PRN (21:37)
[2017-07-09] MEDS ORDERED: Docusate CAP* 100 MG PO PRN (21:37)
[2017-07-09] MEDS ORDERED: Albuterol 2.5 MG/3 ML NEB.SOL* (0.083%) INH PRN (21:42)
[2017-07-09] MEDS ORDERED: Magnesium Sulfate 2 GM IV* 2 GM/50 ML BAG IVPB ONE (21:50)
[2017-07-09 22:29] LABS: Urine Bacteria 1+ (Absent); Urine Bilirubin Negative (Negative); Urine Glucose 1+(50 mg/dL) (Negative); Urine Nitrite Positive (Negative)
--- NOTE | 2017-07-10 00:24 | HP ---
CC: Dr. Valdes * HISTORY AND PHYSICAL: DATE OF ADMISSION: 07/09/17 PRIMARY CARE PROVIDER: Dr. Valdes. ATTENDING PHYSICIAN WHILE IN THE HOSPITAL: Dr. Curtis Epperson * (report dictated by Vishal Jonas NP) CHIEF COMPLAINT: 1. Shortness of breath. 2. Orthopnea. 3. Weight gain. HISTORY OF PRESENT ILLNESS: Ms. Galarza is a 57-year-old female patient with multiple medical problems. She is diabetic. She has history of CAD, PVD, CVA, CKD, hypertension, hyperlipidemia, left subclavian stenosis, osteomyelitis, restless legs syndrome, history of CHF, anemia, and history of COPD. She comes into the ED today stating that she was discharged on Wednesday of this week, initially doing well; however, over the last several days, she has had [employer] s, she has had [employer], and she has also eaten some [place] food. She has been taking her medications as prescribed and she has also stated that she has not been drinking as much fluids as she normally does. She has been taking her diuretics, but she has noticed she has had about a 4-pound weight gain over the last week. She has only weighed herself on Wednesday and today, however. She said she has had more trouble lying down. She has had some shortness of breath. In addition to this, she had some right-sided chest discomfort that is now gone. She came into the ED, was evaluated and it was noted that her troponin was elevated. Her BNP was elevated. There have been no reports of cough. No reports of fever. No reports of nausea, vomiting. No diarrhea. She came in and was evaluated. Chest x-ray was concerning for CHF and there was also concern for her elevated troponin of 0.05, so we were asked to evaluate for admission, and the episode of one time having the chest discomfort on the right side. PAST MEDICAL HISTORY: Significant for: 1. Diabetes. 2. CAD. 3. PVD. 4. CKD. 5. CVA. 6. Hypertension. 7. Hyperlipidemia. 8. Left subclavian stenosis. 9. Osteomyelitis. 10. Restless legs syndrome. 11. CHF. 12. Anemia. 13. COPD. PAST SURGICAL HISTORY: She has had: 1. CABG. 2. Forefoot amputation. 3. Appendectomy. 4. Cholecystectomy. 5. Tonsillectomy. 6. Laminectomy. 7. Carotid endarterectomy. 8. Pacemaker, defibrillator placement. HOME MEDICATIONS: According to her discharge summary (she was just discharged 4 days ago) include: 1. Lantus 30 units subcu every evening. 2. Dulera 1 puff inhaled twice a daily. 3. Aspirin 81 mg oral daily. 4. Demadex 20 mg oral daily. 5. Mirapex 5 mg oral at bedtime. 6. Neurontin 1800 mg p.o. daily. 7. DuoNeb t.i.d. as needed for shortness of breath. 8. Nitro 0.4 mg sublingual every 5 minutes as needed for chest pain. 9. Spiriva 1 capsule inhaled daily. 10. Glucagon 1 mg IM as needed for glucose less than 60. 11. EpiPen 0.3 mg IM as needed for allergies. 12. Brilinta 90 mg twice a day. 13. Acidophilus 1 capsule p.o. daily. 14. Colace 100 mg p.o. twice daily as needed for constipation. 15. Heparin flush 3 cc IV to port as needed. 16. Repatha 140 mg subcu every 40 days. 17. Enalapril 5 mg daily. 18. Atorvastatin 20 mg daily. 19. Carvedilol 1.5625 mg in the morning and carvedilol 4.6875 mg at bedtime. 20. Nystatin topically 3 times daily. 21. MiraLAX 17 g p.o. daily as needed. 22. Percocet 1 to 2 tablets every 4 hours as needed for pain. 23. Linezolid 600 mg p.o. daily. ALLERGIES TO MEDICATIONS: Include CEPHALOSPORIN, PENICILLIN, SULFA DRUGS, BEE VENOM, DIPHENHYDRAMINE, MEROPENEM, VANCOMYCIN, CODEINE. FAMILY HISTORY: The patient is adopted. SOCIAL HISTORY: She does not smoke. She does not drink. Surrogate decision maker is her , Genaro. REVIEW OF SYSTEMS: There is a documented weight gain. She denied any double vision. No ear discharge. There is no rhinorrhea. No sore throat, no thyroid enlargement. Denies having any chest pain currently. Per my HPI, there is orthopnea, there is dyspnea on exertion. No abdominal pain. No nausea, no vomiting. No dysuria, there was no frequency. No loss of consciousness. No pruritus, no skin ulcerations. Review of 14 systems completed, all others negative. PHYSICAL EXAMINATION GENERAL: At this time, Ms. Galarza is a 57-year-old female patient. She is chronically ill appearing. She is sitting in the ER stretcher. She does not appear to be in any acute distress. VITAL SIGNS: Reveal blood pressure with pulse 105, respirations 24, O2 sat 100%, temperature 98.6. HEENT: Head atraumatic. Eyes: EOMs intact. Sclerae anicteric and not pale. Throat: Oral mucosa appears to be moist. No oropharyngeal erythema. NECK: Supple. LUNGS: She did have crackles in the bases. Equal diaphragmatic expansion. HEART: Sounds S1, S2. Regular rate and rhythm. No murmurs, rubs, or gallops. ABDOMEN: Soft, flat, nontender. EXTREMITIES: Pulses were 2+ throughout. She had +3 pitting edema into the pedal area on the right foot. Her left lower extremity appeared to be more swollen that the right. NEUROLOGIC: She is awake, alert, oriented x3. No gross focal deficits. SKIN: Intact. She does have a cast noted to the left lower extremity. DIAGNOSTIC STUDIES/LAB DATA: Today revealed WBC of 6.4, RBC of 2.26, hemoglobin of 6.7, hematocrit of 20, platelet count of 89. The INR was 0.94, PTT of 56.6. The sodium is 136, potassium was 3.7, chloride of 101, bicarb 27, BUN 35, creatinine 1.14, glucose 175, lactate 2.3, calcium 8.2, mag 1.6. Total bili 0.4, AST 10, ALT 10, alk phos 104. CK 95. Troponin was 0.05. CRP was 6.51. BNP was 658. The albumin was 2.8, lipase was 17. Chest x-ray report was read as findings suggestive of CHF. EKG shows an atrial sensed paced rhythm, rate of 101. Her previous showed atrial paced rhythm with rate of 74. Old medical records were reviewed. She had an echo last time she was here showing an EF of 35% to 40%. Old medical records were reviewed. ASSESSMENT AND PLAN: Ms. Galarza is a 57-year-old female patient coming into the ER today with complaints of shortness of breath, worsening swelling, and on evaluation found to have an elevated BNP and indeterminate troponin in addition to this, concern for congestive heart failure. She will be admitted under inpatient status for: 1. Congestive heart failure exacerbation. Suspect this was related to dietary indiscretion. I did place a nutrition consult. We will get daily weights. I will repeat an echo. I will cycle her troponins. Place her on telemetry. We will give her IV diuretics and I will continue to follow her closely. 2. Chest pain. Again, atypical, it was no longer present. She is not hypoxic. I am concerned, although she has had swelling in the one leg, I am going to get a ultrasound of that leg. Holding off CTA because again, she does not have more other reasons for her shortness of breath, it is congestive heart failure, I do not believe she has pulmonary embolism. We will go ahead and monitor her closely. We will cycle her troponins. If she becomes hypoxic, obviously I will get a CTA or a V/Q scan. Again, doing CTA is risky due to fact that she has a chronic kidney disease and again at this point, I do not believe that we need to pursue this. If the ultrasound is positive for deep venous thrombosis, then we will treat her, but I am going to monitor this. The swelling could just be from the congestive heart failure. I will follow closely. 3. Diabetes. Put her on lispro sliding scale. 4. Coronary artery disease. We will continue the beta brian, statin, Brilinta. 5. Peripheral vascular disease. Continue statin and Brilinta. 6. History of cerebrovascular accident. Continue with secondary prevention. 7. Chronic kidney disease. Creatinine appears to be stable. We will monitor. 8. Anemia. Her H and H is slightly worse, but this could be slightly dilutional related to congestive heart failure. I am going to go ahead and just diurese her, follow this closely. I do not see any active signs of bleeding, I will repeat in the morning. If it does fall, I will obviously transfuse her, but at this point, we will monitor. 9. Hyperlipidemia. Continue with her medications as prescribed. 10. Left subclavian stenosis. We will continue to follow. 11. Osteomyelitis. Continue her antibiotics. 12. Restless legs syndrome. Continue Mirapex. 13. Chronic obstructive pulmonary disease. We will continue meds as prescribed. 14. Deep venous thrombosis prophylaxis. I am going to put her on heparin subcu. 15. Code status. Full code. 16. Fluids, electrolytes, nutrition. She will be placed on a low-sodium, heart - healthy diet. TIME SPENT: On the admission 60 minutes; greater than half time spent face-to- face with the patient, obtaining my history and physical. The other half time was spent going over the plan of care with the patient and implementing the plan of care. I did discuss this plan of care with my attending physician, Dr. Epperson; he is in agreement. VISHAL JONSA, VIKRAM [id number]/[facility] #: [id number] [facility]
[2017-07-10] MEDS: oxyCODONE/Acetamin 5/325 MG* TAB PO PRN ×3 (00:30→23:54)
[2017-07-10] MEDS: Heparin VIAL(*) 5000 UNITS/ML VIAL (FIVE THOUSAND) SUBCUT SCH ×4 (00:30→21:08)
[2017-07-10 01:10] LABS: Hematocrit 19 % (35-47); Mean Corpuscular HGB Conc 33 g/dl (31-36); Mean Corpuscular Hemoglobin 30 pg (27-31); Mean Corpuscular Volume 89 fL (80-97); Mean Platelet Volume 9 um3 (7.4-10.4); Red Blood Count 2.12 10^6/ul (4.0-5.4); Red Cell Distribution Width 17 % (10.5-15); White Blood Count 5.4 10^3/ul (3.5-10.8)
[2017-07-10 01:11] LABS: Comments Flag Yes
[2017-07-10 01:14] LABS: Add Diff/Slide Review? Slide Review Added
[2017-07-10 02:28] LABS: Hemoglobin 6.3 g/dl (12.0-16.0)
--- NOTE | 2017-07-10 04:22 | ED ---
Meg Wallace Thomas, scribed for Riccardo Morales MD on 07/09/17 at 2010 . HPI Chest Pain - HPI Summary HPI Summary: The pt is a 57 y/o F with a Hx of CHF presenting to the ED c/o SOB with fluid buildup that began two days ago and intermittent chest pain that began today when she presented to the ED. The CP is located in her mid-sternum and radiates to her right arm. The pt rates the pain 5/10. The episodes of CP last about five minutes. The pain is aggravated and alleviated by nothing. 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 Pt additionally c/o nausea and recent weight gain (she weighed 163 pounds four days ago and she weighs 167 today). Pt denies diaphoresis and cough. The patient is accompanied by her . She is on antidiuretics. She uses inhalers. PMHx of CHF, COPD, DM, CABG, CAD. PSHx of defibrillator, Port-a-cath (since seven months ago), coronary stents, and left BKA. - History of Current Complaint Chief Complaint: EDChestPainROMI Time Seen by Provider: 07/09/17 19:43 Hx Obtained From: Patient, Family/Shift Production Associate - present Onset/Duration: Started Minutes Ago - onset today when presented to ED, Still Present Timing: Constant Pain Intensity: 5 Pain Scale Used: 0-10 Numeric Chest Pain Location: Mid Sternal Chest Pain Radiates: Yes Chest Pain Radiates To:: Arm - right arm Aggravating Factor(s): Nothing Alleviating Factor(s): Nothing Associated Signs and Symptoms: Positive: Chest Pain, Shortness of Breath - onset two days ago, Nausea, Other: - Recent weight gain. Negative: Diaphoresis , Cough - Additional Pertinent History Primary Care Physician: [id number] - Allergy/Home Medications Allergies/Adverse Reactions: Allergies Allergy/AdvReac Type Severity Reaction Status Date / Time Cephalosporins Allergy Severe Shortness Verified 04/25/17 14:50 of Breath Penicillins Allergy Intermediate Hives Verified 04/25/17 14:50 Sulfa Drugs Allergy Intermediate Hives Verified 04/25/17 14:50 Bee Venom Allergy Swelling Verified 04/25/17 14:50 Of Face,Lips,& Throat Diphenhydramine Allergy Difficulty Verified 04/25/17 14:50 Breathing Meropenem Allergy Diarrhea Verified 04/25/17 14:50 Vancomycin Allergy Hives Verified 04/25/17 14:50 Codeine AdvReac Intermediate Vomiting Verified 04/25/17 14:50 bee sting Allergy Severe Hives, Uncoded 04/25/17 14:50 CLOSES UP THROAT PMH/Surg Hx/FS Hx/Imm Hx Previously Healthy: No Endocrine/Hematology History: Reports: Hx Anticoagulant Therapy, Hx Blood Transfusions, Hx Diabetes, Hx Thyroid Disease - Goiter, Hx Anemia, Other Endocrine/Hematological Disorders - anemia Denies: Hx Systemic Lupus Erythematosus Cardiovascular History: Reports: Hx Angioplasty, Hx Auto Implanted Cardiovert Defib, Hx Cardiac Arrest, Hx Congestive Heart Failure, Hx Coronary Artery Disease - CABGx3, Hx Hypercholesterolemia, Hx Hypertension, Hx Myocardial Infarction, Hx Pacemaker/ICD - 2016 - ICD, Hx Peripheral Vascular Disease, Hx Valvular Heart Disease - "Leaky valve", Other Cardiovascular Problems/Disorders - cardiomyopathy Denies: Hx Angina Respiratory History: Reports: Hx Asthma, Hx Chronic Bronchitis, Hx Chronic Obstructive Pulmonary Disease (COPD), Hx Pneumonia, Hx Pulmonary Edema, Hx Pulmonary Embolism, Hx Seasonal Allergies, Hx Sleep Apnea, Other Respiratory Problems/Disorders - respiratory failure, uses home oxygen GI History: Reports: Hx Gall Bladder Disease Denies: Hx Ulcer, Other GI Disorders History: Reports: Hx Chronic Renal Failure - CKD Stage 3, Other Problems/ Disorders - 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 Denies: Hx Dialysis, Hx Renal Disease Musculoskeletal History: Reports: Hx Arthritis, Hx Back Problems, Hx Fibromyalgia, Hx Osteoporosis, Hx Scoliosis, Other Musculoskeletal History - L foot amputaion, restless leg syndrome, osteomylitis Denies: Hx Rheumatoid Arthritis Sensory History: Reports: Hx Cataracts, Hx Contacts or Glasses, Hx Vision Problem, Hx Hearing Problem - R ear numbness and decreased hearing r/t TIA per pt Denies: Hx Hearing Aid Opthamlomology History: Reports: Hx Cataracts, Hx Contacts or Glasses, Hx Vision Problem Neurological History: Reports: Hx Migraine, Hx Nerve Disease - Diabetic Periperal Neuropathy, Hx Seizures, Hx Transient Ischemic Attacks (TIA), Other Neuro Impairments/Disorders - diabetic neuropathy Denies: Hx Dementia Psychiatric History: Reports: Hx Anxiety, Hx Depression Denies: Hx Panic Disorder - Cancer History Hx Chemotherapy: No - Surgical History Surgery Procedure, Year, and Place: CARDIAC STENTS(4 PROMUS AND 1 VISIPRO PLAC[place] [facility] [place] ONLY DUE TO CONDITIONAL STATUS OF ELIAN [address]. GRAD. 720), TRIPLE BYPASS, BILATERAL CAROTID ENDARTERECTOMY ,LAP ADDY,HYSTERECTOMY,LEFT GREAT TOE AMPUTATION,APPY, T&A ,STERNAL WIRES ,LUMBAR SPINE FUSION,CSP FUSION , C SECTION,LEFT FOOT PARTIALLY(has heel only per pt) AMPUTATED-BACK SURGERY- LASER SURGERY. defib,port Hx Anesthesia Reactions: No - Immunization History Date of Tetanus Vaccine: 2015 Date of Influenza Vaccine: 2015 Infectious Disease History: No Infectious Disease History: Reports: Hx of Known/Suspected MRSA Denies: Hx Clostridium Difficile, Hx Hepatitis, Hx Human Immunodeficiency Virus (HIV), Hx Shingles, Hx Tuberculosis, Hx Known/Suspected VRE, Hx Known/ Suspected VRSA, History Other Infectious Disease, Traveled Outside the [place] in Last 30 Days - Family History Known Family History: Positive: Unknown - Pt is adopted and does not know her FHx - Social History Alcohol Use: None Hx Substance Use: No Substance Use Type: Reports: None Hx Tobacco Use: Yes Smoking Status (MU): Light Every Day Tobacco Smoker Type: Cigarettes Amount Used/How Often: 6 cigs/day Length of Time of Smoking/Using Tobacco: 30 years Have You Smoked in the Last Year: Yes Review of Systems Positive: Other - Recent weight gain. Negative: Fever, Skin Diaphoresis Positive: Chest Pain - onset today in the ED Positive: Shortness Of Breath - onset two days ago. Negative: Cough Positive: Nausea All Other Systems Reviewed And Are Negative: Yes Physical Exam Triage Information Reviewed: Yes Vital Signs On Initial Exam: Initial Vitals Temp Pulse Resp BP Pulse Ox 98.6 F 105 24 169/92 100 07/09/17 18:46 07/09/17 18:46 07/09/17 18:46 07/09/17 18:46 07/09/17 18:46 Vital Signs Reviewed: Yes Appearance: Positive: No Pain Distress, Ill-Appearing - mild to moderate Skin: Positive: Warm, Skin Color Reflects Adequate Perfusion, Dry Head/Face: Positive: Normal Head/Face Inspection Eyes: Positive: EOMI, JONI ENT: Positive: Normal ENT inspection Neck: Positive: Supple, Nontender Respiratory/Lung Sounds: Positive: Breath Sounds Present, Other - Crackles bilaterally, worse on the right Cardiovascular: Positive: Tachycardia, Other - Normal rhythm Abdomen Description: Positive: Nontender, Soft Bowel Sounds: Positive: Present Musculoskeletal: Positive: Strength/ROM Intact, Other - Her left foot is amputated. The left leg is larger in diameter than the right leg. Neurological: Positive: Normal, Sensory/Motor Intact, Alert, Oriented to Person Place, Time Psychiatric: Positive: Affect/Mood Appropriate - [place] Coma Scale Coma Scale Total: 15 Diagnostics - Vital Signs Vital Signs Temp Pulse Resp BP Pulse Ox 07/09/17 18:46 98.6 F 105 24 169/92 100 - Laboratory Lab Results: Lab Results 07/09/17 07/09/17 07/09/17 Range/Units 19:55 19:55 19:55 WBC (3.5-10.8) 10^3/ul RBC (4.0-5.4) 10^6/ul Hgb (12.0-16.0) g/dl Hct (35-47) % MCV (80-97) fL MCH (27-31) pg MCHC (31-36) g/dl RDW (10.5-15) % Plt Count (150-450) 10^3/ul MPV (7.4-10.4) um3 Neut % (Auto) (38-83) % Lymph % (Auto) (25-47) % [place] % (Auto) (1-9) % Eos % (Auto) (0-6) % Baso % (Auto) (0-2) % Absolute Neuts (auto) (1.5-7.7) 10^3/ul Absolute Lymphs (auto) (1.0-4.8) 10^3/ul Absolute Monos (auto) (0-0.8) 10^3/ul Absolute Eos (auto) (0-0.6) 10^3/ul Absolute Basos (auto) (0-0.2) 10^3/ul Absolute Nucleated RBC 10^3/ul Nucleated RBC % INR (Anticoag Therapy) 0.94 (0.89-1.11) APTT 56.6 H (26.0-36.3) seconds Sodium 136 (133-145) mmol/L Potassium 3.7 (3.5-5.0) mmol/L Chloride 101 (101-111) mmol/L Carbon Dioxide 27 (22-32) mmol/L Anion Gap 8 (2-11) mmol/L BUN 35 H (6-24) mg/dL Creatinine 1.14 H (0.51-0.95) mg/dL Est GFR ( Amer) 63.4 (>60) Est GFR (Non-Af Amer) 49.3 (>60) BUN/Creatinine Ratio 30.7 H (8-20) Glucose 175 H (70-100) mg/dL Lactic Acid (0.5-2.0) mmol/L Calcium 8.2 L (8.6-10.3) mg/dL Magnesium 1.6 L (1.9-2.7) mg/dL Total Bilirubin 0.40 (0.2-1.0) mg/dL AST 10 L (13-39) U/L ALT 10 (7-52) U/L Alkaline Phosphatase 104 (34-104) U/L Total Creatine Kinase 95 (10-223) U/L CK-MB (CK-2) 4.0 (0.6-6.3) ng/mL Troponin I 0.05 H* (<0.04) ng/mL C-Reactive Protein 6.51 H (< 5.00) mg/L B-Natriuretic Peptide 658 H ( - 100) pg/mL Total Protein 5.4 L (6.4-8.9) g/dL Albumin 2.8 L (3.2-5.2) g/dL Globulin 2.6 (2-4) g/dL Albumin/Globulin Ratio 1.1 (1-3) Lipase 17 (11.0-82.0) U/L TSH 1.14 (0.34-5.60) mcIU/mL 07/09/17 07/09/17 Range/Units 19:55 19:55 WBC 6.4 (3.5-10.8) 10^3/ul RBC 2.26 L (4.0-5.4) 10^6/ul Hgb 6.7 L (12.0-16.0) g/dl Hct 20 L (35-47) % MCV 90 (80-97) fL MCH 30 (27-31) pg MCHC 33 (31-36) g/dl RDW 17 H (10.5-15) % Plt Count 89 L (150-450) 10^3/ul MPV 8 (7.4-10.4) um3 Neut % (Auto) 67.8 (38-83) % Lymph % (Auto) 23.7 L (25-47) % [place] % (Auto) 6.5 (1-9) % Eos % (Auto) 1.4 (0-6) % Baso % (Auto) 0.6 (0-2) % Absolute Neuts (auto) 4.4 (1.5-7.7) 10^3/ul Absolute Lymphs (auto) 1.5 (1.0-4.8) 10^3/ul Absolute Monos (auto) 0.4 (0-0.8) 10^3/ul Absolute Eos (auto) 0.1 (0-0.6) 10^3/ul Absolute Basos (auto) 0 (0-0.2) 10^3/ul Absolute Nucleated RBC 0 10^3/ul Nucleated RBC % 0 INR (Anticoag Therapy) (0.89-1.11) APTT (26.0-36.3) seconds Sodium (133-145) mmol/L Potassium (3.5-5.0) mmol/L Chloride (101-111) mmol/L Carbon Dioxide (22-32) mmol/L Anion Gap (2-11) mmol/L BUN (6-24) mg/dL Creatinine (0.51-0.95) mg/dL Est GFR ( Amer) (>60) Est GFR (Non-Af Amer) (>60) BUN/Creatinine Ratio (8-20) Glucose (70-100) mg/dL Lactic Acid 2.3 H* (0.5-2.0) mmol/L Calcium (8.6-10.3) mg/dL Magnesium (1.9-2.7) mg/dL Total Bilirubin (0.2-1.0) mg/dL AST (13-39) U/L ALT (7-52) U/L Alkaline Phosphatase (34-104) U/L Total Creatine Kinase (10-223) U/L CK-MB (CK-2) (0.6-6.3) ng/mL Troponin I (<0.04) ng/mL C-Reactive Protein (< 5.00) mg/L B-Natriuretic Peptide ( - 100) pg/mL Total Protein (6.4-8.9) g/dL Albumin (3.2-5.2) g/dL Globulin (2-4) g/dL Albumin/Globulin Ratio (1-3) Lipase (11.0-82.0) U/L TSH (0.34-5.60) mcIU/mL Result Diagrams: 07/10/17 00:50 07/09/17 19:55 Lab Statement: Any lab studies that have been ordered have been reviewed, and results considered in the medical decision making process. - Radiology CXR Xray Interpretation: Positive (See Comments) - Findings suggestive of CHF. ED physician has read this report and agrees. Radiology Interpretation Completed By: Radiologist - EKG 19:42 Cardiac Rate: NL - 101 BPM EKG Interpretation: Atrial sensed rhythm. Chest Pain Course/Dx - Course Course Of Treatment: BP noted and advised to follow up with PCP. Medications reviewed. 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 NO CRITICAL CARE TIME. - Diagnoses Provider Diagnoses: CHF (congestive heart failure), Anemia, Dyspnea - Provider Notifications Discussed Care Of Patient With: Vishal Jonas Time Discussed With Above Provider: 21:29 Instructed by Provider To: Other - I consulted with Vishal Jonas NP, who admits the patient to [facility] [place] Discharge - Discharge Plan Condition: Fair Disposition: ADMITTED TO [facility] The documentation as recorded by the Meg sherwood Thomas accurately reflects the service I personally performed and the decisions made by me, Riccardo Morales MD.
[2017-07-10 04:44] LABS: Hematocrit 19 % (35-47)
[2017-07-10 04:45] LABS: Comments Flag Yes
[2017-07-10 04:47] LABS: Hemoglobin 6.3 g/dl (12.0-16.0)
[2017-07-10 04:54] LABS: BUN/Creatinine Ratio 27.6 (8-20); EGFR African American 58.1 (>60); EGFR Non-African American 45.2 (>60); Potassium 3.7 mmol/L (3.5-5.0)
[2017-07-10 05:25] LABS: Troponin I 0.05 ng/mL (<0.04)
[2017-07-10] MEDS: Ondansetron INJ* 2 MG/ML VIAL IV PRN ×3 (06:05→23:53)
[2017-07-10] MEDS: Baclofen TAB* 10 MG PO PRN ×2 (06:25→23:55)
[2017-07-10] MEDS: Mometasone/Formoter 100/5 MDI INH SCH ×2 (07:41→20:22)
[2017-07-10] MEDS: Tiotropium CAP.INH* CAP.INH/18 MCG (USE ORDER SET !) INH SCH (07:43)
[2017-07-10] MEDS ORDERED: Spiriva Inhaler DEVICE* 1 EACH DEVICE ONE (09:00)
[2017-07-10] MEDS ORDERED: Furosemide IV* 10 MG/ML VIAL (40 MG) IV SCH (09:00)
--- NOTE | 2017-07-10 09:44 | PN ---
Subjective Date of Service: 07/10/17 Interval History: Ms. Galarza is feeling nauseous this morning. She has not vomited, but has no appetite and constant nausea. She notes abdominal distension. Her legs are swollen bilaterally, but she believes L>R. No chest pain, but she does note ongoing orthopnea and shortness of breath with minimal movement. Denies constipation, diarrhea, fevers, chills, palpitations. Family History: Unchanged from Admission Social History: Unchanged from Admission Past Medical History: Unchanged from Admission Objective Active Medications: Acetaminophen (Tylenol Tab*) 650 mg PO Q4H PRN PRN Reason: FEVER/PAIN Last Admin: 07/09/17 23:07 Dose: 650 mg Albuterol (Ventolin 2.5 Mg/3 Ml Neb.Roxy*) 2.5 mg INH Q2H PRN PRN Reason: SOB/WHEEZING Albuterol/Ipratropium (Duoneb (Albuterol 2.5 Mg/Ipratropium 0.5 Mg)) 1 neb INH TID PRN PRN Reason: SHORTNESS OF BREATH Aspirin (Aspirin Ec Low Dose*) 81 mg PO DAILY REPLACED BY [facility] Atorvastatin Calcium (Lipitor*) 20 mg PO BEDTIME [place] Baclofen (Lioresal Tab*) 10 mg PO TID PRN PRN Reason: SPASMS Last Admin: 07/10/17 06:25 Dose: 10 mg Carvedilol (Coreg Tab*) 1.5625 mg PO QAM [place] Carvedilol (Coreg Tab*) 4.6875 mg PO BEDTIME REPLACED BY [facility] Dextrose (D50w Syringe 50 Ml*) 12.5 gm IV PUSH .FOR FS < 60 - SS PRN PRN Reason: FS < 60 Docusate Sodium (Colace Cap*) 100 mg PO BID PRN PRN Reason: constipation Enalapril Maleate (Vasotec Tab*) 5 mg PO DAILY@1200 [place] Furosemide (Lasix Iv*) 40 mg IV DAILY [place] Gabapentin (Neurontin Cap(*)) 1,800 mg PO BEDTIME [place] Heparin Sodium (Porcine) (Heparin Vial(*)) 5,000 units SUBCUT Q8HR [place] Last Admin: 07/10/17 05:30 Dose: 5,000 units Heparin Sodium (Porcine) (Heparin Flush Port (Ivad)) 5 ml FLUSH DAILY [place] PRN Reason: Protocol Insulin Glargine (Lantus(*)) 30 units SUBCUT DAILY REPLACED BY [facility] Insulin Human Lispro (Humalog*) 0 units SUBCUT AC REPLACED BY [facility] PRN Reason: Protocol Linezolid (Zyvox Tab*) 600 mg PO DAILY [place] Metoclopramide HCl (Reglan Tab*) 5 mg PO AC [place] Mometasone Furoate/Formoterol Fumar (Dulera 100/5 Mdi*) 1 puff INH BID [place] Last Admin: 07/10/17 07:41 Dose: 1 puff Nystatin (Nystatin Top Powder*) 1 applic TOPICAL TID REPLACED BY [facility] Ondansetron HCl (Zofran Inj*) 4 mg IV Q6H PRN PRN Reason: NAUSEA Last Admin: 07/10/17 06:05 Dose: 4 mg Oxycodone/Acetaminophen (Percocet 5/325 Tab*) 1 tab PO Q4H PRN PRN Reason: PAIN Last Admin: 07/10/17 05:46 Dose: 1 tab Polyethylene Glycol/Electrolytes (Miralax*) 17 gm PO DAILY PRN PRN Reason: CONSTIPATION Pramipexole Dihydrochloride (Mirapex Tab*) 5 mg PO BEDTIME [place] Ticagrelor (Brilinta*) 90 mg PO BID REPLACED BY [facility] Tiotropium [place] (Spiriva Cap.Inh*) 1 cap INH DAILY REPLACED BY [facility] Last Admin: 07/10/17 07:43 Dose: 1 cap Vital Signs 07/09/17 07/09/17 07/10/17 21:35 22:19 00:30 Temperature 97.4 F 97.4 F Pulse Rate 98 98 Respiratory 16 16 16 Rate Blood Pressure 137/82 137/82 (mmHg) O2 Sat by Pulse 97 92 Oximetry 07/10/17 07/10/17 07/10/17 02:30 04:07 05:46 Temperature 97.1 F Pulse Rate 79 Respiratory 16 18 22 Rate Blood Pressure 123/67 (mmHg) O2 Sat by Pulse 96 Oximetry 07/10/17 07/10/17 07/10/17 07:36 07:37 08:00 Temperature Pulse Rate 81 Respiratory 19 18 Rate Blood Pressure (mmHg) O2 Sat by Pulse 96 96 Oximetry 07/10/17 08:10 Temperature 97.1 F Pulse Rate 81 Respiratory 18 Rate Blood Pressure 98/53 (mmHg) O2 Sat by Pulse 98 Oximetry Oxygen Devices in Use Now: None Appearance: alert, uncomfortable, no distress Eyes: No Scleral Icterus, PERRLA Ears/Nose/Mouth/Throat: NL Teeth, Lips, Gums, Clear Oropharnyx Neck: NL Appearance and Movements; NL JVP, - - JVP +10cm H20 Respiratory: Symmetrical Chest Expansion and Respiratory Effort, - - few crackles at b/l bases Cardiovascular: RRR, - - sternotomy scar Abdominal: - - distended, nontender Lymphatic: No Cervical Adenopathy Extremities: - - b/l pitting edema to thighs, Left BKA casted Skin: No Rash or Ulcers Neurological: Alert and Oriented x 3 Result Diagrams: 07/10/17 04:20 07/10/17 04:20 Additional Lab and Data: Lab Results 07/09/17 07/09/17 07/09/17 Range/Units 19:55 19:55 19:55 WBC (3.5-10.8) 10^3/ul RBC (4.0-5.4) 10^6/ul Hgb (12.0-16.0) g/dl Hct (35-47) % MCV (80-97) fL MCH (27-31) pg MCHC (31-36) g/dl RDW (10.5-15) % Plt Count (150-450) 10^3/ul MPV (7.4-10.4) um3 Neut % (Auto) (38-83) % Lymph % (Auto) (25-47) % [place] % (Auto) (1-9) % Eos % (Auto) (0-6) % Baso % (Auto) (0-2) % Absolute Neuts (auto) (1.5-7.7) 10^3/ul Absolute Lymphs (auto) (1.0-4.8) 10^3/ul Absolute Monos (auto) (0-0.8) 10^3/ul Absolute Eos (auto) (0-0.6) 10^3/ul Absolute Basos (auto) (0-0.2) 10^3/ul Absolute Nucleated RBC 10^3/ul Nucleated RBC % INR (Anticoag Therapy) 0.94 (0.89-1.11) APTT 56.6 H (26.0-36.3) seconds Sodium 136 (133-145) mmol/L Potassium 3.7 (3.5-5.0) mmol/L Chloride 101 (101-111) mmol/L Carbon Dioxide 27 (22-32) mmol/L Anion Gap 8 (2-11) mmol/L BUN 35 H (6-24) mg/dL Creatinine 1.14 H (0.51-0.95) mg/dL Est GFR ( Amer) 63.4 (>60) Est GFR (Non-Af Amer) 49.3 (>60) BUN/Creatinine Ratio 30.7 H (8-20) Glucose 175 H (70-100) mg/dL Lactic Acid (0.5-2.0) mmol/L Calcium 8.2 L (8.6-10.3) mg/dL Magnesium 1.6 L (1.9-2.7) mg/dL Total Bilirubin 0.40 (0.2-1.0) mg/dL AST 10 L (13-39) U/L ALT 10 (7-52) U/L Alkaline Phosphatase 104 (34-104) U/L Total Creatine Kinase 95 (10-223) U/L CK-MB (CK-2) 4.0 (0.6-6.3) ng/mL Troponin I 0.05 H* (<0.04) ng/mL C-Reactive Protein 6.51 H (< 5.00) mg/L B-Natriuretic Peptide 658 H ( - 100) pg/mL Total Protein 5.4 L (6.4-8.9) g/dL Albumin 2.8 L (3.2-5.2) g/dL Globulin 2.6 (2-4) g/dL Albumin/Globulin Ratio 1.1 (1-3) Lipase 17 (11.0-82.0) U/L TSH 1.14 (0.34-5.60) mcIU/mL 07/09/17 07/09/17 Range/Units 19:55 19:55 WBC 6.4 (3.5-10.8) 10^3/ul RBC 2.26 L (4.0-5.4) 10^6/ul Hgb 6.7 L (12.0-16.0) g/dl Hct 20 L (35-47) % MCV 90 (80-97) fL MCH 30 (27-31) pg MCHC 33 (31-36) g/dl RDW 17 H (10.5-15) % Plt Count 89 L (150-450) 10^3/ul MPV 8 (7.4-10.4) um3 Neut % (Auto) 67.8 (38-83) % Lymph % (Auto) 23.7 L (25-47) % [place] % (Auto) 6.5 (1-9) % Eos % (Auto) 1.4 (0-6) % Baso % (Auto) 0.6 (0-2) % Absolute Neuts (auto) 4.4 (1.5-7.7) 10^3/ul Absolute Lymphs (auto) 1.5 (1.0-4.8) 10^3/ul Absolute Monos (auto) 0.4 (0-0.8) 10^3/ul Absolute Eos (auto) 0.1 (0-0.6) 10^3/ul Absolute Basos (auto) 0 (0-0.2) 10^3/ul Absolute Nucleated RBC 0 10^3/ul Nucleated RBC % 0 INR (Anticoag Therapy) (0.89-1.11) APTT (26.0-36.3) seconds Sodium (133-145) mmol/L Potassium (3.5-5.0) mmol/L Chloride (101-111) mmol/L Carbon Dioxide (22-32) mmol/L Anion Gap (2-11) mmol/L BUN (6-24) mg/dL Creatinine (0.51-0.95) mg/dL Est GFR ( Amer) (>60) Est GFR (Non-Af Amer) (>60) BUN/Creatinine Ratio (8-20) Glucose (70-100) mg/dL Lactic Acid 2.3 H* (0.5-2.0) mmol/L Calcium (8.6-10.3) mg/dL Magnesium (1.9-2.7) mg/dL Total Bilirubin (0.2-1.0) mg/dL AST (13-39) U/L ALT (7-52) U/L Alkaline Phosphatase (34-104) U/L Total Creatine Kinase (10-223) U/L CK-MB (CK-2) (0.6-6.3) ng/mL Troponin I (<0.04) ng/mL C-Reactive Protein (< 5.00) mg/L B-Natriuretic Peptide ( - 100) pg/mL Total Protein (6.4-8.9) g/dL Albumin (3.2-5.2) g/dL Globulin (2-4) g/dL Albumin/Globulin Ratio (1-3) Lipase (11.0-82.0) U/L TSH (0.34-5.60) mcIU/mL Microbiology and Other Data: Microbiology 07/10/17 00:50 Nasal Screen MRSA (PCR)([facility]) - Final Nasal Mrsa Negative Assess/Plan/Problems-Billing Assessment: 1. Acute on Chronic BiVentricular Heart Failure Likely related to dietary nonadherence. She reports that her dry weight one month ago was 146 lbs. Last night she was 172 lbs. She appeared to respond well to IV lasix last night and was negative 2 L (though she takes torsemide at home and is being given a reduced dose equivalent of lasix here, suggesting marked gut edema). Unfortunately we do not have IV torsemide, so I am increasing lasix dose to 80mg IV daily, which is equivalent to her home dose of PO lasix. Continue daily weights, sodium restriction. Continue coreg, enalapril. She will benefit also from spironolactone on discharge. 2. Symptomatic Anemia Given her extensive vasculopathies, her hgb goal is 8.0. Transfuse today and continue IV diuresis. Check iron studies, b12/folate. I suspect this is anemia of chronic disease. She has no evidence of bleeding, however I am concerned that we cannot visualize the left lower extremity due to casting. I will discuss this with ortho. 3. CAD, PVD Continue asa, statin, bb. No evidence of ongoing ischemia. 4. DMII Maintained on home doses of insulin. 5. CKD with proteinuria, likely DM nephropathy Continue enalapril. Renal function at baseline. 6. full code
[2017-07-10] MEDS: Aspirin EC Low Dose* 81 MG TAB.EC PO SCH (10:29)
[2017-07-10] MEDS: Metoclopramide TAB* 10 MG PO SCH ×3 (10:30→19:16)
[2017-07-10] MEDS: Enalapril TAB* 5 MG PO SCH (10:30)
[2017-07-10] MEDS: Carvedilol TAB* 3.125 MG PO SCH ×2 (10:32→21:03)
[2017-07-10] MEDS: Ticagrelor* 90 MG TAB PO SCH ×2 (10:33→21:52)
[2017-07-10] MEDS: Linezolid TAB* 600 MG PO SCH (10:34)
[2017-07-10] MEDS: Insulin LISPRO* 1 UNITS UNIT SUBCUT SCH ×3 (10:37→18:38)
[2017-07-10] MEDS: Insulin GLARGINE(*) 1 UNITS UNIT SUBCUT SCH (10:38)
[2017-07-10 10:43] LABS: Ferritin 178.3 ng/mL (11-307)
[2017-07-10 10:46] LABS: Folate 6.85 ng/mL (>3.99)
[2017-07-10] MEDS: Nystatin TOP POWDER* 15 GM BTL TOPICAL SCH ×3 (11:07→21:53)
[2017-07-10 13:37] LABS: White Blood Count 4.1 10^3/ul (3.5-10.8)
[2017-07-10 13:38] LABS: Mean Corpuscular HGB Conc 33 g/dl (31-36); Mean Corpuscular Hemoglobin 29 pg (27-31); Mean Corpuscular Volume 90 fL (80-97); Mean Platelet Volume 10 um3 (7.4-10.4); Red Blood Count 2.14 10^6/ul (4.0-5.4); Red Cell Distribution Width 17 % (10.5-15)
--- NOTE | 2017-07-10 18:28 | RAD ---
INDICATION: Pain and swelling. COMPARISON: April 26, 2017 TECHNIQUE: Duplex interrogation of the Lowerextremity was performed. FINDINGS: Deep veins: The common femoral, great saphenous, profunda femoris, proximal, mid, and distal deep femoral and popliteal, veins are patent. There is normal compressibility, augmentation, and phasic flow. The tibial veins could not be evaluated due to the presence of a cast Superficial veins: There are no findings of superficial thrombophlebitis. Popliteal fossa:There is no evidence of a popliteal cyst. Soft tissues:There are no soft tissue abnormalities. IMPRESSION: NO EVIDENCE OF [id number] DEEP VENOUS THROMBOSIS. CALF VEINS NOT EVALUATED DUE TO PRESENCE OF A CAST
[2017-07-10 19:16] LABS: Hematocrit 22 % (35-47); Hemoglobin 7.5 g/dl (12.0-16.0); Mean Corpuscular HGB Conc 34 g/dl (31-36); Mean Corpuscular Hemoglobin 30 pg (27-31); Mean Corpuscular Volume 88 fL (80-97); Mean Platelet Volume 9 um3 (7.4-10.4); Red Blood Count 2.51 10^6/ul (4.0-5.4); Red Cell Distribution Width 17 % (10.5-15); White Blood Count 5.8 10^3/ul (3.5-10.8)
[2017-07-10] MEDS: Gabapentin CAP(*) 300 MG PO SCH (21:03)
[2017-07-10] MEDS: Atorvastatin* 20 MG TAB PO SCH (21:52)
[2017-07-10] MEDS: Pramipexole TAB* 0.5 MG PO SCH (23:23)
[2017-07-11 04:25] LABS: Hematocrit 20 % (35-47); Mean Corpuscular HGB Conc 34 g/dl (31-36); Mean Corpuscular Hemoglobin 30 pg (27-31); Mean Corpuscular Volume 88 fL (80-97); Mean Platelet Volume 9 um3 (7.4-10.4); Red Cell Distribution Width 17 % (10.5-15); White Blood Count 5.2 10^3/ul (3.5-10.8)
[2017-07-11 04:27] LABS: Comments Flag Yes; Hemoglobin 6.8 g/dl (12.0-16.0)
[2017-07-11 04:35] LABS: BUN/Creatinine Ratio 30.7 (8-20); Calcium 7.9 mg/dL (8.6-10.3); EGFR Non-African American 43.5 (>60)
[2017-07-11] MEDS: Heparin VIAL(*) 5000 UNITS/ML VIAL (FIVE THOUSAND) SUBCUT SCH ×3 (05:05→21:39)
[2017-07-11] MEDS: Tiotropium CAP.INH* CAP.INH/18 MCG (USE ORDER SET !) INH SCH (07:37)
[2017-07-11] MEDS: Mometasone/Formoter 100/5 MDI INH SCH ×2 (07:38→19:46)
[2017-07-11] MEDS: Insulin LISPRO* 1 UNITS UNIT SUBCUT SCH ×3 (08:51→17:13)
[2017-07-11] MEDS: Metoclopramide TAB* 10 MG PO SCH ×3 (08:53→17:14)
[2017-07-11] MEDS: Aspirin EC Low Dose* 81 MG TAB.EC PO SCH (08:55)
[2017-07-11] MEDS: Carvedilol TAB* 3.125 MG PO SCH ×2 (08:55→21:39)
[2017-07-11] MEDS: Furosemide IV* 10 MG/ML 10 ML VIAL (100 MG) IV SCH (08:57)
[2017-07-11] MEDS: Insulin GLARGINE(*) 1 UNITS UNIT SUBCUT SCH (08:59)
[2017-07-11] MEDS: Nystatin TOP POWDER* 15 GM BTL TOPICAL SCH ×3 (09:00→21:39)
[2017-07-11] MEDS: Ticagrelor* 90 MG TAB PO SCH ×2 (09:00→21:38)
[2017-07-11] MEDS: Linezolid TAB* 600 MG PO SCH (09:00)
--- NOTE | 2017-07-11 11:30 | PN ---
Subjective Date of Service: 07/11/17 Interval History: Patient seen this morning. Reports continued improvement in her symptoms. Breathing better. Still with some LE edema, feels abdomen is tight as well. Educated about fluid and sodium intake, says she loves cured meats and eats them often (watson, kielbasa, sausages) Family History: Unchanged from Admission Social History: Unchanged from Admission Past Medical History: Unchanged from Admission Objective Active Medications: Acetaminophen (Tylenol Tab*) 650 mg PO Q4H PRN Albuterol (Ventolin 2.5 Mg/3 Ml Neb.Roxy*) 2.5 mg INH Q2H PRN Albuterol/Ipratropium (Duoneb (Albuterol 2.5 Mg/Ipratropium 0.5 Mg)) 1 neb INH TID PRN Aspirin (Aspirin Ec Low Dose*) 81 mg PO DAILY [place] Atorvastatin Calcium (Lipitor*) 20 mg PO BEDTIME [place] Baclofen (Lioresal Tab*) 10 mg PO TID PRN Carvedilol (Coreg Tab*) 1.5625 mg PO QAM [place] Carvedilol (Coreg Tab*) 4.6875 mg PO BEDTIME [place] Dextrose (D50w Syringe 50 Ml*) 12.5 gm IV PUSH .FOR FS < 60 - SS PRN Docusate Sodium (Colace Cap*) 100 mg PO BID PRN Enalapril Maleate (Vasotec Tab*) 5 mg PO DAILY@1200 [place] Furosemide (Lasix Iv*) 80 mg IV DAILY [place] Gabapentin (Neurontin Cap(*)) 1,800 mg PO BEDTIME [place] Heparin Sodium (Porcine) (Heparin Vial(*)) 5,000 units SUBCUT Q8HR [place] Heparin Sodium (Porcine) (Heparin Flush Port (Ivad)) 5 ml FLUSH DAILY [place] Insulin Glargine (Lantus(*)) 30 units SUBCUT DAILY [place] Insulin Human Lispro (Humalog*) 0 units SUBCUT AC [place] Linezolid (Zyvox Tab*) 600 mg PO DAILY [place] Metoclopramide HCl (Reglan Tab*) 5 mg PO AC [place] Mometasone Furoate/Formoterol Fumar (Dulera 100/5 Mdi*) 1 puff INH BID [place] Nystatin (Nystatin Top Powder*) 1 applic TOPICAL TID [place] Ondansetron HCl (Zofran Inj*) 4 mg IV Q6H PRN Oxycodone/Acetaminophen (Percocet 5/325 Tab*) 1 tab PO Q4H PRN Polyethylene Glycol/Electrolytes (Miralax*) 17 gm PO DAILY PRN Pramipexole Dihydrochloride (Mirapex Tab*) 5 mg PO BEDTIME [place] Ticagrelor (Brilinta*) 90 mg PO BID [place] Tiotropium [place] (Spiriva Cap.Inh*) 1 cap INH DAILY [place] Vital Signs 07/10/17 07/10/17 07/10/17 11:29 11:46 15:29 Temperature 98.3 F 97.8 F Pulse Rate 84 89 Respiratory 18 16 20 Rate Blood Pressure 121/67 151/87 (mmHg) O2 Sat by Pulse 96 95 Oximetry 07/11/17 07/11/17 07:39 07:43 Temperature 98.4 F Pulse Rate 78 78 Respiratory 14 18 Rate Blood Pressure 134/76 (mmHg) O2 Sat by Pulse 98 97 Oximetry Oxygen Devices in Use Now: None Appearance: Middle-aged, F, laying in bed in NAD Eyes: No Scleral Icterus Ears/Nose/Mouth/Throat: Mucous Membranes Moist Neck: NL Appearance and Movements; NL JVP Respiratory: Symmetrical Chest Expansion and Respiratory Effort, - - Rales in B/ L bases Cardiovascular: NL Sounds; No Murmurs; No JVD, RRR Abdominal: - - Soft, non-tender, non-distended, BS+ Lymphatic: No Cervical Adenopathy Extremities: - - B/L LE edema, L BKA Neurological: Alert and Oriented x 3 Result Diagrams: 07/11/17 04:00 07/11/17 04:00 Additional Lab and Data: Lab Results 07/09/17 07/09/17 07/09/17 Range/Units 19:55 19:55 19:55 WBC (3.5-10.8) 10^3/ul RBC (4.0-5.4) 10^6/ul Hgb (12.0-16.0) g/dl Hct (35-47) % MCV (80-97) fL MCH (27-31) pg MCHC (31-36) g/dl RDW (10.5-15) % Plt Count (150-450) 10^3/ul MPV (7.4-10.4) um3 Neut % (Auto) (38-83) % Lymph % (Auto) (25-47) % [place] % (Auto) (1-9) % Eos % (Auto) (0-6) % Baso % (Auto) (0-2) % Absolute Neuts (auto) (1.5-7.7) 10^3/ul Absolute Lymphs (auto) (1.0-4.8) 10^3/ul Absolute Monos (auto) (0-0.8) 10^3/ul Absolute Eos (auto) (0-0.6) 10^3/ul Absolute Basos (auto) (0-0.2) 10^3/ul Absolute Nucleated RBC 10^3/ul Nucleated RBC % INR (Anticoag Therapy) 0.94 (0.89-1.11) APTT 56.6 H (26.0-36.3) seconds Sodium 136 (133-145) mmol/L Potassium 3.7 (3.5-5.0) mmol/L Chloride 101 (101-111) mmol/L Carbon Dioxide 27 (22-32) mmol/L Anion Gap 8 (2-11) mmol/L BUN 35 H (6-24) mg/dL Creatinine 1.14 H (0.51-0.95) mg/dL Est GFR ( Amer) 63.4 (>60) Est GFR (Non-Af Amer) 49.3 (>60) BUN/Creatinine Ratio 30.7 H (8-20) Glucose 175 H (70-100) mg/dL Lactic Acid (0.5-2.0) mmol/L Calcium 8.2 L (8.6-10.3) mg/dL Magnesium 1.6 L (1.9-2.7) mg/dL Total Bilirubin 0.40 (0.2-1.0) mg/dL AST 10 L (13-39) U/L ALT 10 (7-52) U/L Alkaline Phosphatase 104 (34-104) U/L Total Creatine Kinase 95 (10-223) U/L CK-MB (CK-2) 4.0 (0.6-6.3) ng/mL Troponin I 0.05 H* (<0.04) ng/mL C-Reactive Protein 6.51 H (< 5.00) mg/L B-Natriuretic Peptide 658 H ( - 100) pg/mL Total Protein 5.4 L (6.4-8.9) g/dL Albumin 2.8 L (3.2-5.2) g/dL Globulin 2.6 (2-4) g/dL Albumin/Globulin Ratio 1.1 (1-3) Lipase 17 (11.0-82.0) U/L TSH 1.14 (0.34-5.60) mcIU/mL 07/09/17 07/09/17 Range/Units 19:55 19:55 WBC 6.4 (3.5-10.8) 10^3/ul RBC 2.26 L (4.0-5.4) 10^6/ul Hgb 6.7 L (12.0-16.0) g/dl Hct 20 L (35-47) % MCV 90 (80-97) fL MCH 30 (27-31) pg MCHC 33 (31-36) g/dl RDW 17 H (10.5-15) % Plt Count 89 L (150-450) 10^3/ul MPV 8 (7.4-10.4) um3 Neut % (Auto) 67.8 (38-83) % Lymph % (Auto) 23.7 L (25-47) % [place] % (Auto) 6.5 (1-9) % Eos % (Auto) 1.4 (0-6) % Baso % (Auto) 0.6 (0-2) % Absolute Neuts (auto) 4.4 (1.5-7.7) 10^3/ul Absolute Lymphs (auto) 1.5 (1.0-4.8) 10^3/ul Absolute Monos (auto) 0.4 (0-0.8) 10^3/ul Absolute Eos (auto) 0.1 (0-0.6) 10^3/ul Absolute Basos (auto) 0 (0-0.2) 10^3/ul Absolute Nucleated RBC 0 10^3/ul Nucleated RBC % 0 INR (Anticoag Therapy) (0.89-1.11) APTT (26.0-36.3) seconds Sodium (133-145) mmol/L Potassium (3.5-5.0) mmol/L Chloride (101-111) mmol/L Carbon Dioxide (22-32) mmol/L Anion Gap (2-11) mmol/L BUN (6-24) mg/dL Creatinine (0.51-0.95) mg/dL Est GFR ( Amer) (>60) Est GFR (Non-Af Amer) (>60) BUN/Creatinine Ratio (8-20) Glucose (70-100) mg/dL Lactic Acid 2.3 H* (0.5-2.0) mmol/L Calcium (8.6-10.3) mg/dL Magnesium (1.9-2.7) mg/dL Total Bilirubin (0.2-1.0) mg/dL AST (13-39) U/L ALT (7-52) U/L Alkaline Phosphatase (34-104) U/L Total Creatine Kinase (10-223) U/L CK-MB (CK-2) (0.6-6.3) ng/mL Troponin I (<0.04) ng/mL C-Reactive Protein (< 5.00) mg/L B-Natriuretic Peptide ( - 100) pg/mL Total Protein (6.4-8.9) g/dL Albumin (3.2-5.2) g/dL Globulin (2-4) g/dL Albumin/Globulin Ratio (1-3) Lipase (11.0-82.0) U/L TSH (0.34-5.60) mcIU/mL Microbiology and Other Data: Microbiology 07/10/17 00:50 Nasal Screen MRSA (PCR)(RYNE) - Final Nasal Mrsa Negative Assess/Plan/Problems-Billing Assessment: Acute on chronic systolic CHF exacerbation in a 57 yo F with hx of CHF, CAD, CKD , DM2, HTN, HLD, osteomyelitis and recent heel abscess s/p I&D - Patient Problems (1) Acute on chronic systolic (congestive) heart failure Current Visit: No Comment: - Due to dietary non-adherence - Continue IV Lasix - ECHO from 06/2017 with improved EF 35-40%, moderate MVR, pHTN RVSP 52 - Strict I/O, daily weights - Continue carvedilol 1.56 am/4.68 pm (2) Anemia Current Visit: No Comment: Hb low again, no signs of bleeding. Likely AoCD/CKD Transfuse additional 1u PRBC s/p bone marrow 2017, no MDS. Scheduled to follow-up 3 times in coming weeks with Dr. Cutler for additional tests (3) CAD (coronary artery disease) Current Visit: No Comment: - Continue Lipitor, ASA and Brilinta (4) Abscess of heel, left Current Visit: No Comment: - S/p I&D and debridment by Dr. Hess 06/21/17. - Continue PO Linezolide. (5) Diabetes mellitus with chronic kidney disease Current Visit: No Comment: - Continue Lantus and Lispro SS (6) DVT prophylaxis Current Visit: No Comment: - SQ heparin.
[2017-07-11] MEDS: Enalapril TAB* 5 MG PO SCH (12:29)
[2017-07-11] MEDS: Ondansetron INJ* 2 MG/ML VIAL IV PRN ×2 (13:09→14:59)
[2017-07-11] MEDS: Baclofen TAB* 10 MG PO PRN (15:26)
[2017-07-11] MEDS: oxyCODONE/Acetamin 5/325 MG* TAB PO PRN ×2 (18:02→22:49)
[2017-07-11] MEDS: Gabapentin CAP(*) 300 MG PO SCH (21:38)
[2017-07-11] MEDS: Pramipexole TAB* 0.5 MG PO SCH (21:39)
[2017-07-11] MEDS: Atorvastatin* 20 MG TAB PO SCH (21:39)
[2017-07-12] MEDS: Heparin VIAL(*) 5000 UNITS/ML VIAL (FIVE THOUSAND) SUBCUT SCH ×3 (06:25→20:56)
[2017-07-12 07:01] LABS: Hematocrit 25 % (35-47); Hemoglobin 8.3 g/dl (12.0-16.0); Mean Corpuscular HGB Conc 34 g/dl (31-36); Mean Corpuscular Hemoglobin 30 pg (27-31); Mean Corpuscular Volume 88 fL (80-97); Mean Platelet Volume 9 um3 (7.4-10.4); Red Cell Distribution Width 16 % (10.5-15); White Blood Count 9.7 10^3/ul (3.5-10.8)
[2017-07-12 07:11] LABS: BUN/Creatinine Ratio 26.9 (8-20); EGFR African American 52.6 (>60); EGFR Non-African American 40.9 (>60); Potassium 3.6 mmol/L (3.5-5.0)
[2017-07-12] MEDS: Ondansetron INJ* 2 MG/ML VIAL IV PRN (07:14)
[2017-07-12] MEDS ORDERED: Metolazone TAB* 5 MG PO ONE (07:24)
[2017-07-12] MEDS: Insulin LISPRO* 1 UNITS UNIT SUBCUT SCH ×3 (08:49→17:38)
[2017-07-12] MEDS: Metoclopramide TAB* 10 MG PO SCH ×3 (08:50→17:03)
[2017-07-12] MEDS: Aspirin EC Low Dose* 81 MG TAB.EC PO SCH (08:56)
[2017-07-12] MEDS: Furosemide IV* 10 MG/ML 10 ML VIAL (100 MG) IV SCH (08:58)
[2017-07-12] MEDS: Insulin GLARGINE(*) 1 UNITS UNIT SUBCUT SCH (08:59)
[2017-07-12] MEDS: Carvedilol TAB* 3.125 MG PO SCH ×2 (08:59→20:58)
[2017-07-12] MEDS: Ticagrelor* 90 MG TAB PO SCH ×2 (09:00→20:59)
[2017-07-12] MEDS: Nystatin TOP POWDER* 15 GM BTL TOPICAL SCH ×3 (09:02→23:35)
[2017-07-12] MEDS: Linezolid TAB* 600 MG PO SCH (09:03)
[2017-07-12] MEDS: Tiotropium CAP.INH* CAP.INH/18 MCG (USE ORDER SET !) INH SCH (09:18)
[2017-07-12] MEDS: Mometasone/Formoter 100/5 MDI INH SCH ×2 (09:18→20:04)
[2017-07-12 10:45] LABS: Albumin 2.3 g/dL (3.2-5.2); Direct Bilirubin 0.1 mg/dL (0.03-0.18); Globulin 2.2 g/dL (2-4); Indirect Bilirubin 0.5 mg/dL (0.3-1.0); Total Bilirubin 0.6 mg/dL (0.2-1.0); Total Protein 4.5 g/dL (6.4-8.9)
[2017-07-12] MEDS ORDERED: Calcium Gluconate INJ* 1 GM in NS 0.9% 50 ML* 50 ML IVPB ONE (10:50)
[2017-07-12 11:24] LABS: Phosphorus 3.1 mg/dL (2.5-5.0)
[2017-07-12] MEDS: Enalapril TAB* 5 MG PO SCH (12:53)
[2017-07-12] MEDS: Ciprofloxacin TAB* 500 MG PO SCH ×2 (12:53→20:57)
--- NOTE | 2017-07-12 14:44 | PN ---
Subjective Date of Service: 07/12/17 Interval History: Patient seen this morning. Had some nausea this morning. Says she feels depressed, upset she is not urinating more and making more progress. Did mention having some dysuria over the weekend Anxious to go home. Family History: Unchanged from Admission Social History: Unchanged from Admission Past Medical History: Unchanged from Admission Objective Active Medications: Acetaminophen (Tylenol Tab*) 650 mg PO Q4H PRN Albuterol (Ventolin 2.5 Mg/3 Ml Neb.Roxy*) 2.5 mg INH Q2H PRN Albuterol/Ipratropium (Duoneb (Albuterol 2.5 Mg/Ipratropium 0.5 Mg)) 1 neb INH TID PRN Aspirin (Aspirin Ec Low Dose*) 81 mg PO DAILY [place] Atorvastatin Calcium (Lipitor*) 20 mg PO BEDTIME [place] Baclofen (Lioresal Tab*) 10 mg PO TID PRN Carvedilol (Coreg Tab*) 1.5625 mg PO QAM [place] Carvedilol (Coreg Tab*) 4.6875 mg PO BEDTIME [place] Ciprofloxacin (Cipro Tab*) 500 mg PO Q12HR [place] Dextrose (D50w Syringe 50 Ml*) 12.5 gm IV PUSH .FOR FS < 60 - SS PRN Docusate Sodium (Colace Cap*) 100 mg PO BID PRN Enalapril Maleate (Vasotec Tab*) 5 mg PO DAILY@1200 [place] Furosemide (Lasix Iv*) 80 mg IV DAILY [place] Gabapentin (Neurontin Cap(*)) 1,800 mg PO BEDTIME [place] Heparin Sodium (Porcine) (Heparin Vial(*)) 5,000 units SUBCUT Q8HR [place] Heparin Sodium (Porcine) (Heparin Flush Port (Ivad)) 5 ml FLUSH DAILY [place] Insulin Glargine (Lantus(*)) 30 units SUBCUT DAILY [place] Insulin Human Lispro (Humalog*) 0 units SUBCUT AC [place] Linezolid (Zyvox Tab*) 600 mg PO DAILY [place] Metoclopramide HCl (Reglan Tab*) 5 mg PO AC [place] Mometasone Furoate/Formoterol Fumar (Dulera 100/5 Mdi*) 1 puff INH BID [place] Nystatin (Nystatin Top Powder*) 1 applic TOPICAL TID [place] Ondansetron HCl (Zofran Inj*) 4 mg IV Q6H PRN Oxycodone/Acetaminophen (Percocet 5/325 Tab*) 1 tab PO Q4H PRN Polyethylene Glycol/Electrolytes (Miralax*) 17 gm PO DAILY PRN Pramipexole Dihydrochloride (Mirapex Tab*) 5 mg PO BEDTIME [place] Ticagrelor (Brilinta*) 90 mg PO BID [place] Tiotropium [place] (Spiriva Cap.Inh*) 1 cap INH DAILY [place] Vital Signs 07/11/17 07/11/17 07/11/17 15:11 18:02 19:29 Temperature 98.2 F 98.8 F Pulse Rate 95 102 Respiratory 16 20 20 Rate Blood Pressure 131/78 109/68 (mmHg) O2 Sat by Pulse 93 90 Oximetry 07/12/17 07/12/17 07/12/17 07:31 09:20 11:03 Temperature 98.5 F 98.5 F Pulse Rate 85 83 Respiratory 16 16 Rate Blood Pressure 131/86 134/89 (mmHg) O2 Sat by Pulse 88 88 92 Oximetry Oxygen Devices in Use Now: None Appearance: Middle-aged, caucaisan F, laying in bed in NAD Eyes: No Scleral Icterus Ears/Nose/Mouth/Throat: Mucous Membranes Moist Neck: NL Appearance and Movements; NL JVP Respiratory: Symmetrical Chest Expansion and Respiratory Effort, - - Rales in bases B/L Cardiovascular: NL Sounds; No Murmurs; No JVD, RRR Abdominal: NL Sounds; No Tenderness; No Distention Lymphatic: No Cervical Adenopathy Extremities: - - Mild B/L LE edema to just above knees Skin: No Rash or Ulcers Neurological: Alert and Oriented x 3 Result Diagrams: 07/12/17 06:45 07/12/17 06:45 Additional Lab and Data: Lab Results 07/09/17 07/09/17 07/09/17 Range/Units 19:55 19:55 19:55 WBC (3.5-10.8) 10^3/ul RBC (4.0-5.4) 10^6/ul Hgb (12.0-16.0) g/dl Hct (35-47) % MCV (80-97) fL MCH (27-31) pg MCHC (31-36) g/dl RDW (10.5-15) % Plt Count (150-450) 10^3/ul MPV (7.4-10.4) um3 Neut % (Auto) (38-83) % Lymph % (Auto) (25-47) % [place] % (Auto) (1-9) % Eos % (Auto) (0-6) % Baso % (Auto) (0-2) % Absolute Neuts (auto) (1.5-7.7) 10^3/ul Absolute Lymphs (auto) (1.0-4.8) 10^3/ul Absolute Monos (auto) (0-0.8) 10^3/ul Absolute Eos (auto) (0-0.6) 10^3/ul Absolute Basos (auto) (0-0.2) 10^3/ul Absolute Nucleated RBC 10^3/ul Nucleated RBC % INR (Anticoag Therapy) 0.94 (0.89-1.11) APTT 56.6 H (26.0-36.3) seconds Sodium 136 (133-145) mmol/L Potassium 3.7 (3.5-5.0) mmol/L Chloride 101 (101-111) mmol/L Carbon Dioxide 27 (22-32) mmol/L Anion Gap 8 (2-11) mmol/L BUN 35 H (6-24) mg/dL Creatinine 1.14 H (0.51-0.95) mg/dL Est GFR ( Amer) 63.4 (>60) Est GFR (Non-Af Amer) 49.3 (>60) BUN/Creatinine Ratio 30.7 H (8-20) Glucose 175 H (70-100) mg/dL Lactic Acid (0.5-2.0) mmol/L Calcium 8.2 L (8.6-10.3) mg/dL Magnesium 1.6 L (1.9-2.7) mg/dL Total Bilirubin 0.40 (0.2-1.0) mg/dL AST 10 L (13-39) U/L ALT 10 (7-52) U/L Alkaline Phosphatase 104 (34-104) U/L Total Creatine Kinase 95 (10-223) U/L CK-MB (CK-2) 4.0 (0.6-6.3) ng/mL Troponin I 0.05 H* (<0.04) ng/mL C-Reactive Protein 6.51 H (< 5.00) mg/L B-Natriuretic Peptide 658 H ( - 100) pg/mL Total Protein 5.4 L (6.4-8.9) g/dL Albumin 2.8 L (3.2-5.2) g/dL Globulin 2.6 (2-4) g/dL Albumin/Globulin Ratio 1.1 (1-3) Lipase 17 (11.0-82.0) U/L TSH 1.14 (0.34-5.60) mcIU/mL 07/09/17 07/09/17 Range/Units 19:55 19:55 WBC 6.4 (3.5-10.8) 10^3/ul RBC 2.26 L (4.0-5.4) 10^6/ul Hgb 6.7 L (12.0-16.0) g/dl Hct 20 L (35-47) % MCV 90 (80-97) fL MCH 30 (27-31) pg MCHC 33 (31-36) g/dl RDW 17 H (10.5-15) % Plt Count 89 L (150-450) 10^3/ul MPV 8 (7.4-10.4) um3 Neut % (Auto) 67.8 (38-83) % Lymph % (Auto) 23.7 L (25-47) % [place] % (Auto) 6.5 (1-9) % Eos % (Auto) 1.4 (0-6) % Baso % (Auto) 0.6 (0-2) % Absolute Neuts (auto) 4.4 (1.5-7.7) 10^3/ul Absolute Lymphs (auto) 1.5 (1.0-4.8) 10^3/ul Absolute Monos (auto) 0.4 (0-0.8) 10^3/ul Absolute Eos (auto) 0.1 (0-0.6) 10^3/ul Absolute Basos (auto) 0 (0-0.2) 10^3/ul Absolute Nucleated RBC 0 10^3/ul Nucleated RBC % 0 INR (Anticoag Therapy) (0.89-1.11) APTT (26.0-36.3) seconds Sodium (133-145) mmol/L Potassium (3.5-5.0) mmol/L Chloride (101-111) mmol/L Carbon Dioxide (22-32) mmol/L Anion Gap (2-11) mmol/L BUN (6-24) mg/dL Creatinine (0.51-0.95) mg/dL Est GFR ( Amer) (>60) Est GFR (Non-Af Amer) (>60) BUN/Creatinine Ratio (8-20) Glucose (70-100) mg/dL Lactic Acid 2.3 H* (0.5-2.0) mmol/L Calcium (8.6-10.3) mg/dL Magnesium (1.9-2.7) mg/dL Total Bilirubin (0.2-1.0) mg/dL AST (13-39) U/L ALT (7-52) U/L Alkaline Phosphatase (34-104) U/L Total Creatine Kinase (10-223) U/L CK-MB (CK-2) (0.6-6.3) ng/mL Troponin I (<0.04) ng/mL C-Reactive Protein (< 5.00) mg/L B-Natriuretic Peptide ( - 100) pg/mL Total Protein (6.4-8.9) g/dL Albumin (3.2-5.2) g/dL Globulin (2-4) g/dL Albumin/Globulin Ratio (1-3) Lipase (11.0-82.0) U/L TSH (0.34-5.60) mcIU/mL Microbiology and Other Data: Microbiology 07/10/17 00:50 Nasal Screen MRSA (PCR)(RYNE) - Final Nasal Mrsa Negative Assess/Plan/Problems-Billing Assessment: Acute on chronic systolic CHF exacerbation in a 57 yo F with hx of CHF, CAD, CKD , DM2, HTN, HLD, osteomyelitis and recent heel abscess s/p I&D - Patient Problems (1) Acute on chronic systolic (congestive) heart failure Current Visit: No Comment: - Due to dietary non-adherence - Continue IV Lasix, will add Metolazone prior to dose today - ECHO from 06/2017 with improved EF 35-40%, moderate MVR, pHTN RVSP 52 - Strict I/O, daily weights - Continue carvedilol 1.56 am/4.68 pm (2) UTI (urinary tract infection) Current Visit: No Status: Acute Comment: - Urine culture grew Enterobacter, patient reports symptoms over the weekend. Will treat with PO Cipro (Day 1) (3) Anemia Current Visit: No Comment: Hb responded appropriately to PRBC on 07/11, no signs of bleeding. Likely AoCD/CKD s/p bone marrow 2017, no MDS. Scheduled to follow-up 3 times in coming weeks with Dr. Cutler for additional tests (4) CAD (coronary artery disease) Current Visit: No Comment: - Continue Lipitor, ASA and Brilinta (5) Abscess of heel, left Current Visit: No Comment: - S/p I&D and debridment by Dr. Hess 06/21/17. - Continue PO Linezolid (6) Diabetes mellitus with chronic kidney disease Current Visit: No Comment: - Continue Lantus and Lispro SS (7) DVT prophylaxis Current Visit: No Comment: - SQ heparin.
[2017-07-12 14:56] LABS: Magnesium 1.8 mg/dL (1.9-2.7)
[2017-07-12] MEDS ORDERED: Magnesium Oxide TAB* 400 MG PO ONE (16:00)
[2017-07-12] MEDS: Gabapentin CAP(*) 300 MG PO SCH (20:57)
[2017-07-12] MEDS: Atorvastatin* 20 MG TAB PO SCH (20:58)
[2017-07-12] MEDS: oxyCODONE/Acetamin 5/325 MG* TAB PO PRN (20:59)
[2017-07-12] MEDS: Pramipexole TAB* 0.5 MG PO SCH (22:15)
[2017-07-13] MEDS: oxyCODONE/Acetamin 5/325 MG* TAB PO PRN (01:28)
[2017-07-13] MEDS: Ondansetron INJ* 2 MG/ML VIAL IV PRN ×2 (01:38→05:29)
[2017-07-13] MEDS: Baclofen TAB* 10 MG PO PRN (01:38)
[2017-07-13] MEDS: Heparin VIAL(*) 5000 UNITS/ML VIAL (FIVE THOUSAND) SUBCUT SCH (05:29)
[2017-07-13 07:01] LABS: BUN/Creatinine Ratio 24.4 (8-20); Calcium 8.4 mg/dL (8.6-10.3); EGFR African American 39.4 (>60); EGFR Non-African American 30.7 (>60); Magnesium 2.1 mg/dL (1.9-2.7); Potassium 4.6 mmol/L (3.5-5.0)
[2017-07-13] MEDS: Metoclopramide TAB* 10 MG PO SCH ×2 (07:50→12:02)
[2017-07-13] MEDS: Insulin LISPRO* 1 UNITS UNIT SUBCUT SCH ×2 (07:51→12:02)
[2017-07-13] MEDS ORDERED: PROCHLORPERAZINE INJ 5 MG/ML 2 ML VIAL IV PRN (07:59)
[2017-07-13 08:37] VITALS: BP 120/79
[2017-07-13] MEDS: Mometasone/Formoter 100/5 MDI INH SCH (09:05)
[2017-07-13] MEDS: Tiotropium CAP.INH* CAP.INH/18 MCG (USE ORDER SET !) INH SCH (09:06)
[2017-07-13] MEDS: Carvedilol TAB* 3.125 MG PO SCH (09:50)
[2017-07-13] MEDS: Ciprofloxacin TAB* 500 MG PO SCH (09:50)
[2017-07-13] MEDS: Aspirin EC Low Dose* 81 MG TAB.EC PO SCH (09:50)
[2017-07-13] MEDS: Ticagrelor* 90 MG TAB PO SCH (09:51)
[2017-07-13] MEDS: Linezolid TAB* 600 MG PO SCH (09:51)
[2017-07-13] MEDS: Insulin GLARGINE(*) 1 UNITS UNIT SUBCUT SCH (09:51)
[2017-07-13] MEDS: Nystatin TOP POWDER* 15 GM BTL TOPICAL SCH (09:51)
--- NOTE | 2017-07-13 11:27 | DCNOTE ---
Patient seen this morning. Had nausea this morning and overnight which she thinks may be due to ABx. Feeling better now, had breakfast. Did not feel like she urinated much yesterday, feels LE edema is slightly improved. On exam, trace rales in B/L bases, RRR, s1 and s2 present, Mild LE pitting edema to below knees Creatinine jumped this AM from increased diuresis, will hold on diuretics for now. Weight still up but SOB seems to be improved and patient has been ambulating with no issues. Counseled again on fluid and sodium restrictions. Will plan to discharge home with resumption of PO diuretics in next 1-2 days pending intake and weights. BMP in 2 days
[2017-07-13] MEDS: Enalapril TAB* 5 MG PO SCH (12:02)
--- NOTE | 2017-07-14 01:20 | DS ---
CC: Dr. Valdes * DISCHARGE SUMMARY: DATE OF ADMISSION: 07/09/17 DATE OF DISCHARGE: 07/13/17 PRIMARY CARE PHYSICIAN: Dr. Valdes. PRINCIPAL DISCHARGE DIAGNOSIS: Acute on chronic systolic congestive heart failure exacerbation. SECONDARY DIAGNOSES: 1. Diabetes. 2. Coronary artery disease. 3. Peripheral vascular disease. 4. Chronic kidney disease. 5. Cerebrovascular accident. 6. Hypertension. 7. Hyperlipidemia. 8. Left subclavian stenosis. 9. Osteomyelitis. 10. Restless leg syndrome. 11. Congestive heart failure. 12. Anemia. DISCHARGE MEDICATION REGIMEN: 1. Lantus 30 units subcutaneous daily. 2. Metolazone 5 mg daily as needed in addition to torsemide if persistent weight gain. 3. DuoNeb one neb inhaled 3 times daily as needed for shortness of breath or wheezing. 4. Aspirin 81 mg by mouth daily. 5. Atorvastatin 20 mg by mouth at bedtime. 6. Carvedilol 1.5625 mg by mouth every morning, 4.6875 mg by mouth at bedtime. 7. Colace 100 mg by mouth 2 times daily as needed for constipation. 8. Enalapril 5 mg by mouth daily. 9. Epinephrine 0.3 mg IM once as needed for anaphylactic reaction. 10. Evolocumab 140 mg subcutaneous every 14 days. 11. Gabapentin 1800 mg by mouth at bedtime. 12. Lactobacillus one capsule by mouth daily. 13. Linezolid one tablet 600 mg by mouth daily. 14. Reglan 5 mg by mouth with meals. 15. Dulera 1 puff inhaled 2 times daily. 16. Nitroglycerin 0.5 mg sublingual every 5 minutes as needed for angina. 17. Nystatin 1 application topical 3 times daily. 18. MiraLax 17 g by mouth daily as needed for constipation. 19. Mirapex 5 mg by mouth at bedtime. 20. Brilinta 90 mg by mouth 2 times daily. 21. Spiriva 1 capsule inhaled daily. 22. Torsemide 20 mg by mouth daily. 23. Percocet 5/325, 1 to 2 tablets by mouth every 4 hours as needed for pain. STUDIES DONE DURING HOSPITALIZATION: Chest x-ray, impression: Findings suggestive of congestive heart failure. Left lower extremity Doppler: No evidence of [id number] deep venous thrombosis. Calf veins not evaluated due to the presence of a cast. HISTORY OF PRESENT ILLNESS AND HOSPITAL SUMMARY: Please see the full history and physical by Vishal Jonas NP for full details. Briefly, Ms. Galarza is a 57 -year- old female with multiple medical problems as above, who presented to the hospital with shortness of breath after having a large meal of [place] food as well as [employer] and [employer]. The patient's BNP was elevated on admission and she was started on IV diuretics with good urine output initially. Over the following days, her weight seemed to stabilize, although was still elevated compared to prior admission about 1 month ago; however, despite additional IV Lasix and metolazone, she did not have anymore significant urine output and in fact her creatinine bumped up on the day of discharge. The patient's breathing symptoms improved significantly during the hospitalization, so a decision was made to hold on any further IV diuretics at this time and will have the patient resume her oral medications in 1 to 2 days after discharge depending on her p.o. intake and weight gain at that time as discussed with her. The patient was found to be anemic as well during this hospitalization with initial hemoglobin at 6.7. Throughout the hospitalization, she was transfused a total of 2 units of packed red blood cells. The patient has been seeing Dr. Cutler as an outpatient for this anemia and has had an extensive workup so far including a bone marrow biopsy as well as a multiple myeloma workup, neither of which have been revealing. The patient responded appropriately to her second blood cell transfusion. The patient had a relatively unremarkable UA on admission; however, she did grow Enterobacter. When asked about dysuria, she states she had some dysuria on 07/10/17, but this resolved. She was given a few days of oral ciprofloxacin but felt that this may be making her nauseous, so this was stopped after just 3 doses and she will continue to monitor her urine as an outpatient. She was ordered for followup BMP to be done on 07/15/17 to keep an eye on her kidney function. She was instructed to limit her salt and fluid intake and to follow up mostly with her PCP. TIME SPENT: Total time spent on this discharge, 50 minutes. This is a summary of the hospitalization, please see the full medical record for further details. [id number]/[facility] #: [id number] MTDD
== END 2017-07-13 12:48 | disposition home or self-care (01) | DRG 291 ==
LOC: ED 18:41 → MEDTELE 21:29
PROVIDERS: ADMIT Hospitalist; ATTEND Hospitalist
PROC: 30233N1 Transfusion of Nonautologous Red Blood Cells into Peripheral Vein, Percutaneous Approach (ICD-10-PCS; principal; 2017-07-11)
DX: I13.0 Hypertensive heart and chronic kidney disease with heart failure and stage 1 through stage 4 chronic kidney disease, or unspecified chronic kidney disease (principal); I50.23 Acute on chronic systolic (congestive) heart failure; E11.22 Type 2 diabetes mellitus with diabetic chronic kidney disease; E11.42 Type 2 diabetes mellitus with diabetic polyneuropathy; N39.0 Urinary tract infection, site not specified; I87.1 Compression of vein; J44.9 Chronic obstructive pulmonary disease, unspecified; E11.51 Type 2 diabetes mellitus with diabetic peripheral angiopathy without gangrene; I25.10 Atherosclerotic heart disease of native coronary artery without angina pectoris; E78.00 Pure hypercholesterolemia, unspecified; G47.30 Sleep apnea, unspecified; M19.90 Unspecified osteoarthritis, unspecified site; N18.3 Chronic kidney disease, stage 3 (moderate); M79.7 Fibromyalgia; M81.0 Age-related osteoporosis without current pathological fracture; M41.9 Scoliosis, unspecified; G25.81 Restless legs syndrome; G43.909 Migraine, unspecified, not intractable, without status migrainosus; F32.9 Major depressive disorder, single episode, unspecified; F41.9 Anxiety disorder, unspecified; E11.36 Type 2 diabetes mellitus with diabetic cataract; F17.210 Nicotine dependence, cigarettes, uncomplicated; B96.89 Other specified bacterial agents as the cause of diseases classified elsewhere; D64.9 Anemia, unspecified; R11.0 Nausea; R14.0 Abdominal distension (gaseous); Z86.14 Personal history of Methicillin resistant Staphylococcus aureus infection; Z79.82 Long term (current) use of aspirin; Z86.73 Personal history of transient ischemic attack (TIA), and cerebral infarction without residual deficits; Z79.4 Long term (current) use of insulin; Z95.1 Presence of aortocoronary bypass graft; Z95.5 Presence of coronary angioplasty implant and graft; Z89.512 Acquired absence of left leg below knee; Z95.810 Presence of automatic (implantable) cardiac defibrillator; Z88.1 Allergy status to other antibiotic agents; I25.2 Old myocardial infarction; Z88.0 Allergy status to penicillin; Z88.2 Allergy status to sulfonamides; Z91.030 Bee allergy status; Z88.5 Allergy status to narcotic agent; Z98.1 Arthrodesis status
CPT/HCPCS: 36415; 71010; 80048; 80053; 80076; 81003; 81015; 82550; 82553; 82607; 82728; 82746; 83540; 83550; 83605; 83690; 83735; 83880; 84100; 84443; 84484; 85025; 85027; 85610; 85730; 86140; 86850; 86900; 86901; 86922; 87077; 87086; 87186; 87641; 93005; 94640; 94760; 99406; A9270-GY; J0610; J0780; J1642; J1644; J1940; J2405; J3475; P9040

== ENCOUNTER 2017-07-22 14:34 | Inpatient (IN) | payer MEDICARE, MEDICAID ==
[2017-07-22 17:20] LABS: Hematocrit 27 % (35-47); Hemoglobin 8.7 g/dl (12.0-16.0); Mean Corpuscular HGB Conc 32 g/dl (31-36); Mean Corpuscular Hemoglobin 30 pg (27-31); Mean Corpuscular Volume 91 fL (80-97); Mean Platelet Volume 8 um3 (7.4-10.4); Red Blood Count 2.93 10^6/ul (4.0-5.4); Red Cell Distribution Width 19 % (10.5-15)
[2017-07-22] MEDS ORDERED: Ondansetron INJ* 2 MG/ML VIAL IV ONE (17:26)
[2017-07-22] MEDS ORDERED: Morphine INJ* 2 MG/ML 1 ML CARPUJECT IV ONE (17:26)
[2017-07-22 17:37] LABS: BUN/Creatinine Ratio 22.1 (8-20); C Reactive Protein 14.1 mg/L (< 5.00); Calcium 8.3 mg/dL (8.6-10.3); EGFR African American 64.1 (>60); EGFR Non-African American 49.8 (>60); Globulin 3.1 g/dL (2-4); Potassium 3.4 mmol/L (3.5-5.0); Total Bilirubin 0.8 mg/dL (0.2-1.0); Total Protein 6.1 g/dL (6.4-8.9)
--- NOTE | 2017-07-22 17:44 | ED ---
Lower Extremity - HPI Summary HPI Summary: Patient presents to the ED with CC of painful, red, fluid-filled loculation to the left lower stump from an above the ankle amputation. She states she has felt ill for a few days. She was seen by Dr. Hess 3 days ago and culture of the wound performed. Today, she returns and Dr. Hess directed her to come to the ED for IV antibiotics and an admission. She notes to some nausea and uncontrolled pain. She has multiple medical problems including a most recent admission for CHF. Called hospitalist who agrees to admit. Dr. Hess is made aware. - History of Current Complaint Chief Complaint: EDExtremityLower Stated Complaint: POSS INF LT LEG Time Seen by Provider: 07/22/17 16:46 Hx Obtained From: Patient Mechanism Of Injury: Other - infection Onset of Pain: Days Onset/Duration: Hours Severity Initially: Severe Severity Currently: Severe Pain Intensity: 10 Pain Scale Used: 0-10 Numeric Timing: Constant Location: Is Discrete @ - Risk Factors Gout Risk Factors: Age Over 40, Diabetes, Hypertension, Renal Disease, Hyperlipidemia, Obesity, Peripherial Vascular Disease DVT Risk Factors: Recent Period Of Bedrest, Recent Surgery, Recent Trauma Septic Arthritis Risk Factor: Immunosuppressed, Pre-existing Joint Disease - Allergies/Home Medications Allergies/Adverse Reactions: Allergies Allergy/AdvReac Type Severity Reaction Status Date / Time Bee Venom Allergy Intermediate Swelling Verified 07/10/17 05:50 Of Face,Lips,& Throat Cephalosporins Allergy Intermediate Shortness Verified 07/10/17 05:50 of Breath Diphenhydramine Allergy Intermediate Difficulty Verified 07/10/17 05:50 Breathing Penicillins Allergy Intermediate Hives Verified 04/25/17 14:50 Sulfa Drugs Allergy Intermediate Hives Verified 04/25/17 14:50 Vancomycin Allergy Mild Hives Verified 07/10/17 05:50 Codeine AdvReac Intermediate Vomiting Verified 04/25/17 14:50 Meropenem AdvReac Mild Diarrhea Verified 07/10/17 05:50 bee sting Allergy Severe Hives, Uncoded 04/25/17 14:50 CLOSES UP THROAT PMH/Surg Hx/FS Hx/Imm Hx Previously Healthy: No Endocrine/Hematology History: Reports: Hx Anticoagulant Therapy, Hx Blood Transfusions, Hx Diabetes, Hx Thyroid Disease - Goiter, Hx Anemia, Other Endocrine/Hematological Disorders - anemia Denies: Hx Systemic Lupus Erythematosus Cardiovascular History: Reports: Hx Angioplasty, Hx Auto Implanted Cardiovert Defib, Hx Cardiac Arrest, Hx Congestive Heart Failure, Hx Coronary Artery Disease - CABGx3, Hx Hypercholesterolemia, Hx Hypertension, Hx Myocardial Infarction, Hx Pacemaker/ICD - 2016 - ICD, Hx Peripheral Vascular Disease, Hx Valvular Heart Disease - "Leaky valve", Other Cardiovascular Problems/Disorders - cardiomyopathy Denies: Hx Angina Respiratory History: Reports: Hx Asthma, Hx Chronic Bronchitis, Hx Chronic Obstructive Pulmonary Disease (COPD), Hx Pneumonia, Hx Pulmonary Edema, Hx Pulmonary Embolism, Hx Seasonal Allergies, Hx Sleep Apnea, Other Respiratory Problems/Disorders - respiratory failure, uses home oxygen GI History: Reports: Hx Gall Bladder Disease Denies: Hx Ulcer, Other GI Disorders History: Reports: Hx Chronic Renal Failure - CKD Stage 3, Other Problems/ Disorders - 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 Denies: Hx Dialysis, Hx Renal Disease Musculoskeletal History: Reports: Hx Arthritis, Hx Back Problems, Hx Fibromyalgia, Hx Osteoporosis, Hx Scoliosis, Other Musculoskeletal History - L foot amputaion, restless leg syndrome, osteomylitis Denies: Hx Rheumatoid Arthritis Sensory History: Reports: Hx Cataracts, Hx Contacts or Glasses, Hx Vision Problem, Hx Hearing Problem - R ear numbness and decreased hearing r/t TIA per pt Denies: Hx Hearing Aid Opthamlomology History: Reports: Hx Cataracts, Hx Contacts or Glasses, Hx Vision Problem Neurological History: Reports: Hx Migraine, Hx Nerve Disease - Diabetic Periperal Neuropathy, Hx Seizures, Hx Transient Ischemic Attacks (TIA), Other Neuro Impairments/Disorders - diabetic neuropathy Denies: Hx Dementia Psychiatric History: Reports: Hx Anxiety, Hx Depression Denies: Hx Panic Disorder - Cancer History Hx Chemotherapy: No - Surgical History Surgery Procedure, Year, and Place: CARDIAC STENTS([address] [facility] [place] DUE TO CONDITIONAL STATUS OF MAX SPAT. GRAD. 720), TRIPLE BYPASS, BILATERAL CAROTID ENDARTERECTOMY ,LAP ADDY,HYSTERECTOMY,LEFT GREAT TOE AMPUTATION,APPY, T&A ,STERNAL WIRES ,LUMBAR SPINE FUSION,CSP FUSION , C SECTION,LEFT FOOT PARTIALLY(has heel only per pt) AMPUTATED-BACK SURGERY- LASER SURGERY. 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, amputated Denies: Hx Clostridium Difficile, Hx Hepatitis, Hx Human Immunodeficiency Virus (HIV), Hx Shingles, Hx Tuberculosis, Hx Known/Suspected VRE, Hx Known/ Suspected VRSA, History Other Infectious Disease, Traveled Outside the [place] in Last 30 Days - Family History Known Family History: Positive: Unknown - Pt is adopted and does not know her FHx - Social History Occupation: Disabled Lives: Alone Alcohol Use: None Hx Substance Use: No Substance Use Type: Reports: None Hx Tobacco Use: Yes Smoking Status (MU): Light Every Day Tobacco Smoker Type: Cigarettes Amount Used/How Often: 6 cigs/day Length of Time of Smoking/Using Tobacco: 30 years Have You Smoked in the Last Year: Yes Review of Systems Constitutional: Negative Positive: Fatigue, Skin Diaphoresis. Negative: Fever, Chills Negative: Photophobia, Blurred Vision Negative: Epistaxis, Dental Pain, Sore Throat Negative: Palpitations, Chest Pain Negative: Shortness Of Breath, Cough Gastrointestinal: Negative Negative: Abdominal Pain, Vomiting, Diarrhea Positive: no symptoms reported, see HPI Positive: Arthralgia Positive: Other - erythema, swelling and warmth to the left lower leg over amputation Neurological: Negative Psychological: Normal All Other Systems Reviewed And Are Negative: Yes Physical Exam Triage Information Reviewed: Yes Vital Signs On Initial Exam: Initial Vitals Temp Pulse Resp BP Pulse Ox 96.1 F 89 22 162/87 95 07/22/17 14:37 07/22/17 14:37 07/22/17 14:37 07/22/17 14:37 07/22/17 14:37 Vital Signs Reviewed: Yes Appearance: Positive: Well-Appearing, Well-Nourished Skin: Positive: Warm, Skin Color Reflects Adequate Perfusion, Other - erythema, warmth with mild yellow discharge medially Eyes: Positive: Normal, JONI Neck: Positive: Supple, No Lymphadenopathy Respiratory/Lung Sounds: Positive: Clear to Auscultation, Breath Sounds Present Cardiovascular: Positive: Normal, RRR, Pulses are Symmetrical in both Upper and Lower Extremities Musculoskeletal: Positive: Pain @ - left lower extremity Neurological: Positive: Speech Normal Psychiatric: Positive: Normal - Lea Coma Scale Coma Scale Total: 15 Diagnostics - Vital Signs Vital Signs Temp Pulse Resp BP Pulse Ox 07/22/17 14:37 96.1 F 89 22 162/87 95 - Laboratory Lab Results: Lab Results 07/22/17 07/22/17 07/22/17 Range/Units 17:09 17:09 17:09 WBC 9.0 (3.5-10.8) 10^3/ul RBC 2.93 L (4.0-5.4) 10^6/ul Hgb 8.7 L (12.0-16.0) g/dl Hct 27 L (35-47) % MCV 91 (80-97) fL MCH 30 (27-31) pg MCHC 32 (31-36) g/dl RDW 19 H (10.5-15) % Plt Count 488 H D (150-450) 10^3/ul MPV 8 (7.4-10.4) um3 Neut % (Auto) 73.7 (38-83) % Lymph % (Auto) 14.2 L (25-47) % [place] % (Auto) 8.1 (1-9) % Eos % (Auto) 3.0 (0-6) % Baso % (Auto) 1.0 (0-2) % Absolute Neuts (auto) 6.6 (1.5-7.7) 10^3/ul Absolute Lymphs (auto) 1.3 (1.0-4.8) 10^3/ul Absolute Monos (auto) 0.7 (0-0.8) 10^3/ul Absolute Eos (auto) 0.3 (0-0.6) 10^3/ul Absolute Basos (auto) 0.1 (0-0.2) 10^3/ul Absolute Nucleated RBC 0.01 10^3/ul Nucleated RBC % 0.1 Sodium 134 (133-145) mmol/L Potassium 3.4 L (3.5-5.0) mmol/L Chloride 94 L (101-111) mmol/L Carbon Dioxide 34 H (22-32) mmol/L Anion Gap 6 (2-11) mmol/L BUN 25 H (6-24) mg/dL Creatinine 1.13 H (0.51-0.95) mg/dL Est GFR ( Amer) 64.1 (>60) Est GFR (Non-Af Amer) 49.8 (>60) BUN/Creatinine Ratio 22.1 H (8-20) Glucose 360 H (70-100) mg/dL Lactic Acid 1.2 (0.5-2.0) mmol/L Calcium 8.3 L (8.6-10.3) mg/dL Total Bilirubin 0.80 (0.2-1.0) mg/dL AST 10 L (13-39) U/L ALT 8 (7-52) U/L Alkaline Phosphatase 147 H (34-104) U/L C-Reactive Protein 14.10 H (< 5.00) mg/L Total Protein 6.1 L (6.4-8.9) g/dL Albumin 3.0 L (3.2-5.2) g/dL Globulin 3.1 (2-4) g/dL Albumin/Globulin Ratio 1.0 (1-3) Result Diagrams: 07/22/17 17:09 07/22/17 17:09 Lab Statement: Any lab studies that have been ordered have been reviewed, and results considered in the medical decision making process. Lower Extremity Course/Dx - Course Course Of Treatment: Patient is given morphine 4mg and zofran 4mg. She is not given fluids d/t CHF history. Dr. Hess made aware of direct admit. Hospitalist called who agrees to admit patient to their service and provide IV abx. Patient made aware and is comfortable. Labs drawn including blood cultures. - Diagnoses Provider Diagnoses: Cellulitis Discharge - Discharge Plan Condition: Stable Disposition: ADMITTED TO [facility]
[2017-07-22] MEDS ORDERED: Dextrose 50% Syringe 50 ML* 25 GM/50 ML SYRINGE IV PUSH PRN (17:57)
[2017-07-22] MEDS ORDERED: Albuterol/Ipratropium NEB.SOL* Albuterol 2.5 MG/Ipratropium 0.5 MG 3 ML INH PRN (18:03)
[2017-07-22] MEDS ORDERED: Morphine INJ* 4 MG/ML 1 ML CARPUJECT IV PRN (18:09)
[2017-07-22] MEDS ORDERED: Nitroglycerin TAB 0.4 MG* 0.4 MG TAB SL PRN (18:20)
--- NOTE | 2017-07-22 18:26 | ADMNOTE ---
Subjective Date of Service: 07/22/17 Interval History: ADMISSION HISTORY AND PHYSICAL EXAM: Allergies Allergy/AdvReac Type Severity Reaction Status Date / Time Bee Venom Allergy Intermediate Swelling Verified 07/10/17 05:50 Of Face,Lips,& Throat Cephalosporins Allergy Intermediate Shortness Verified 07/10/17 05:50 of Breath Diphenhydramine Allergy Intermediate Difficulty Verified 07/10/17 05:50 Breathing Penicillins Allergy Intermediate Hives Verified 04/25/17 14:50 Sulfa Drugs Allergy Intermediate Hives Verified 04/25/17 14:50 Vancomycin Allergy Mild Hives Verified 07/10/17 05:50 Codeine AdvReac Intermediate Vomiting Verified 04/25/17 14:50 Meropenem AdvReac Mild Diarrhea Verified 07/10/17 05:50 bee sting Allergy Severe Hives, Uncoded 04/25/17 14:50 CLOSES UP THROAT Home Medications Medication Instructions Recorded Confirmed Type Mometasone/Formoter 100/5 MDI* 1 puff INH BID 09/23/15 06/30/17 History [Dulera 100/5 MDI*] Aspirin EC Low Dose* [Ecotrin EC 81 mg PO DAILY tab.ec 02/16/16 06/30/17 Rx Low Dose 81 MG*] Albuterol/Ipratropium NEB.DION* 1 neb INH TID PRN 11/11/16 06/30/17 History [Duoneb (Albuterol 2.5 MG/Ipratropium 0.5 MG)] Gabapentin TAB(NF) [Neurontin 600 1,800 mg PO BEDTIME 11/11/16 06/30/17 History mg TAB(NF)] Nitroglycerin TAB 0.4 MG* 0.4 mg SL Q5M PRN 11/11/16 06/30/17 History Pramipexole Dihydrochloride 5 mg PO BEDTIME 11/11/16 06/30/17 History [Mirapex] Tiotropium CAP.INH* [Spiriva 1 cap INH DAILY 11/11/16 06/30/17 History CAP.INH*] Epinephrine [Epipen 2-Abdi] 0.3 mg IM ONCE PRN 03/04/17 06/30/17 History Glucagon (Rdna) [Glucagon 1 mg IM ONCE PRN 03/04/17 06/30/17 History Emergency Kit] Ticagrelor* [Brilinta 90 MG*] 90 mg PO BID 03/04/17 06/30/17 History Docusate CAP* [Colace Cap*] 100 mg PO BID PRN 04/25/17 06/30/17 History Evolocumab [Repatha Sureclick] 140 mg SC Q14D 04/25/17 06/30/17 History Heparin FLUSH PORT (IVAD)* 3 ml IV FLUSH DAILY 04/25/17 06/30/17 History Lactobacillus Acidophilu (GG)* 1 cap PO DAILY 04/25/17 07/03/17 History [Culturelle*] Atorvastatin* [Lipitor 20 MG*] 20 mg PO BEDTIME 06/16/17 06/30/17 History Carvedilol TAB* [Coreg TAB*] 1.5625 mg PO QAM 06/16/17 06/30/17 History Carvedilol TAB* [Coreg TAB*] 4.6875 mg PO BEDTIME 06/16/17 06/30/17 History Enalapril TAB* [Vasotec TAB*] 5 mg PO DAILY@1200 06/16/17 06/30/17 History Nystatin TOP POWDER* 1 applic TOPICAL TID #1 btl 06/28/17 06/30/17 Rx Polyethylene Glycol 3350* 17 gm PO DAILY PRN #30 packet 06/28/17 06/30/17 Rx [Miralax*] oxyCODONE/Acetamin 5/325 MG* 1 - 2 tab PO Q4H PRN #30 tab MDD 8 06/28/17 Rx [Percocet 5/325 TAB*] tabs Linezolid [Linezolid 600 MG TAB] 1 tab PO DAILY 06/30/17 07/03/17 History Insulin Glargine [Lantus Solostar 30 units SUBCUT DAILY #1 box 07/05/17 Rx 5x3 ML PENS] Insulin Pen Needle [Bd Pen 1 mis XX DAILY #1 box 07/05/17 Rx Needle/Sonia/Ultra 32G X 4 mm] Metoclopramide HCl [Metoclopramide 5 mg PO AC #90 tab 07/05/17 Rx Odt] Torsemide TAB* [Demadex 20 MG*] 20 mg PO DAILY #30 tab 07/05/17 06/30/17 Rx Insulin GLARGINE(*) [Lantus(*)] 30 units SUBCUT DAILY unit 07/13/17 Rx Metolazone TAB* [Zaroxolyn TAB*] 5 mg PO DAILY PRN #0 07/13/17 06/30/17 Rx HPI: More pain L heel last few days. Dr. Hess prescribed oral cipro 07/19, but she through up all or most doses. She took her long-acting insulin this AM, no coverage at noon, did not eat lunch today. Last smoked about 2 weeks ago. She states her torsemide was recently increased to 40 mg daily and she lost 20 lbs. She takes metolazone only for a weight gain of 3 pounds. Family History: Findings - The patient is adopted. Social History: Findings - Last smoked about 2 weeks ago. No alcohol abuse. Lives with her who is her SDM. Past Medical History: Findings - CAD s/p CABG, pacer. L Pirogoff amputation. Appy, tonsil, shadia, CEA, lami. DM with neuropathy and gastroparesis. COPD on home O2. Restless legs, Review of Systems - Measurements Intake and Output: Intake and Output Last 24 Hours 07/20/17 07/21/17 07/22/17 07/23/17 06:59 06:59 06:59 06:59 Weight 150 lb - Review of Systems Constitutional Symptoms: Negative: Weight Gain, Weight Loss, Weakness, Fatigue, Fever, Night Sweats, Unexplained Falls, Other Dermatology: Positive: Normal HEENT: Positive: Normal Eyes: Positive: Normal Thyroid: Positive: Normal Pulmonary: Positive: COPD Cardiology: Positive: Swelling of Ankles Gastroenterology: Positive: Nausea, Vomiting Genital - Urinary: Positive: Normal Musculoskeletal: Positive: Joint Pain Endocrinology: Positive: Obesity, Diabetes Mellitus Hematologic/Lymphatic: Positive: Anemia Neurology: Positive: Other - peripheral neuorpathy, diabetic Psychiatry: Positive: Normal Allergic/Immunologic: Negative: Hx Anaphylaxis, Hx Angioedema, Hx Environmental, Hx Seasonal, Athsma, Hx HIV, Immunocompromise, Swollen Glands LymphNodes, Other Objective Active Medications: Albuterol/Ipratropium (Duoneb (Albuterol 2.5 Mg/Ipratropium 0.5 Mg)) 1 neb INH TID PRN PRN Reason: SHORTNESS OF BREATH Aspirin (Aspirin Ec Low Dose*) 81 mg PO DAILY [place] Atorvastatin Calcium (Lipitor*) 20 mg PO BEDTIME [facility] Carvedilol (Coreg Tab*) 1.5625 mg PO QAM [facility] Dextrose (D50w Syringe 50 Ml*) 12.5 gm IV PUSH .FOR FS < 60 - SS PRN PRN Reason: FS < 60 Enalapril Maleate (Vasotec Tab*) 5 mg PO DAILY@1200 [place] Gabapentin (Neurontin Tab(Nf)) 1,200 mg PO BEDTIME [facility] Heparin Sodium (Porcine) (Heparin Vial(*)) 5,000 units SUBCUT Q8HR [place] Ciprofloxacin/Dextrose (Cipro 400 Mg Ivpremix(*)) 400 mg in 200 mls @ 200 mls/ hr IVPB Q12H [place] Linezolid (Zyvox 600 Mg Ivpremix(*)) 600 mg in 300 mls @ 300 mls/hr IVPB Q12H [facility] Insulin Human Lispro (Humalog*) 0 units SUBCUT ACHS [place] PRN Reason: Protocol Morphine Sulfate (Morphine Inj (Syringe)*) 4 mg IV Q3H PRN PRN Reason: PAIN Stop: 07/23/17 06:10 Non-Formulary Medication (Heparin Flush Port (Ivad)*) 3 ml IV FLUSH DAILY [facility] Ondansetron HCl (Zofran Inj*) 4 mg IV Q4H PRN PRN Reason: NAUSEA Potassium Chloride (Klor Con Er Tab*) 20 meq PO BID [facility] Spironolactone (Aldactone Tab*) 25 mg PO DAILY [facility] Torsemide (Demadex*) 40 mg PO DAILY [facility] Vital Signs 07/22/17 07/22/17 07/22/17 14:37 17:21 17:24 Temperature 96.1 F Pulse Rate 89 99 97 Respiratory 22 Rate Blood Pressure 162/87 158/90 (mmHg) O2 Sat by Pulse 95 98 98 Oximetry 07/22/17 07/22/17 17:30 17:48 Temperature Pulse Rate 94 Respiratory 24 20 Rate Blood Pressure 173/91 (mmHg) O2 Sat by Pulse 92 Oximetry Oxygen Devices in Use Now: Nasal Cannula Appearance: Alert, partly up on ED stretcher. In fair spirits. Looks comfortable. Eyes: No Scleral Icterus Ears/Nose/Mouth/Throat: Clear Oropharnyx, Mucous Membranes Moist Neck: NL Appearance and Movements; NL JVP, No Thyroid Enlargement, Masses Respiratory: Symmetrical Chest Expansion and Respiratory Effort, Clear to Auscultation, Clear to Percussion Cardiovascular: NL Sounds; No Murmurs; No JVD, RRR, No Edema Abdominal: NL Sounds; No Tenderness; No Distention, No Hepatosplenomegaly, - Extremities: No Edema, No Clubbing, Cyanosis, - - L pirogoff amputation. Skin: No Rash or Ulcers, No Nodules or Sclerosis, - Neurological: Alert and Oriented x 3, NL Sensation Result Diagrams: 07/22/17 17:07/22/17 17:09 Additional Lab and Data: Lab Results 07/22/17 07/22/17 07/22/17 Range/Units 17: 17:09 17:09 WBC 9.0 (3.5-10.8) 10^3/ul RBC 2.93 L (4.0-5.4) 10^6/ul Hgb 8.7 L (12.0-16.0) g/dl Hct 27 L (35-47) % MCV 91 (80-97) fL MCH 30 (27-31) pg MCHC 32 (31-36) g/dl RDW 19 H (10.5-15) % Plt Count 488 H D (150-450) 10^3/ul MPV 8 (7.4-10.4) um3 Neut % (Auto) 73.7 (38-83) % Lymph % (Auto) 14.2 L (25-47) % [place] % (Auto) 8.1 (1-9) % Eos % (Auto) 3.0 (0-6) % Baso % (Auto) 1.0 (0-2) % Absolute Neuts (auto) 6.6 (1.5-7.7) 10^3/ul Absolute Lymphs (auto) 1.3 (1.0-4.8) 10^3/ul Absolute Monos (auto) 0.7 (0-0.8) 10^3/ul Absolute Eos (auto) 0.3 (0-0.6) 10^3/ul Absolute Basos (auto) 0.1 (0-0.2) 10^3/ul Absolute Nucleated RBC 0.01 10^3/ul Nucleated RBC % 0.1 Sodium 134 (133-145) mmol/L Potassium 3.4 L (3.5-5.0) mmol/L Chloride 94 L (101-111) mmol/L Carbon Dioxide 34 H (22-32) mmol/L Anion Gap 6 (2-11) mmol/L BUN 25 H (6-24) mg/dL Creatinine 1.13 H (0.51-0.95) mg/dL Est GFR ( Amer) 64.1 (>60) Est GFR (Non-Af Amer) 49.8 (>60) BUN/Creatinine Ratio 22.1 H (8-20) Glucose 360 H (70-100) mg/dL Lactic Acid 1.2 (0.5-2.0) mmol/L Calcium 8.3 L (8.6-10.3) mg/dL Total Bilirubin 0.80 (0.2-1.0) mg/dL AST 10 L (13-39) U/L ALT 8 (7-52) U/L Alkaline Phosphatase 147 H (34-104) U/L C-Reactive Protein 14.10 H (< 5.00) mg/L Total Protein 6.1 L (6.4-8.9) g/dL Albumin 3.0 L (3.2-5.2) g/dL Globulin 3.1 (2-4) g/dL Albumin/Globulin Ratio 1.0 (1-3) Assess/Plan/Problems-Billing Assessment: - Patient Problems (1) Diabetic foot infection Current Visit: Yes Status: Acute Code(s): E11.69 - TYPE 2 DIABETES MELLITUS WITH OTHER SPECIFIED COMPLICATION; L08.9 - LOCAL INFECTION OF THE SKIN AND SUBCUTANEOUS TISSUE, UNSP SNOMED Code(s): 744566942 Comment: Start cipro/linezolid. (2) DVT prophylaxis Current Visit: No Status: Acute Code(s): JHA7912 - SNOMED Code(s): 731821687 Comment: - SQ heparin. (3) CAD (coronary artery disease) Current Visit: No Status: Chronic Code(s): I25.10 - ATHSCL HEART DISEASE OF [place] CORONARY ARTERY W/O ANG PCTRS SNOMED Code(s): 82810986 Comment: With compensated systolic CHF. Continue clopidogrel, ASA, statin, BB, ACEI, torsemide. Add spironolactone, KCL. Likely can decrease dose or stop KCL later. addon mag. (4) Diabetes mellitus due to underlying condition with diabetic neuropathy, without long-term current use of insulin Current Visit: Yes Status: Acute Code(s): E08.40 - DIABETES DUE TO UNDERLYING CONDITION W DIABETIC NEUROP, UNSP SNOMED Code(s): 2269173 Comment: Also diabetic gastroparesis. Continue home dose Lantus. Lispro by SS. Continue metoclopramide. Reduced dose gabapentin hs. (5) Anemia Current Visit: No Status: Acute Code(s): D64.9 - ANEMIA, UNSPECIFIED SNOMED Code(s): 180646967 Comment: Stable, likely anemia of chronic disease. - BM biopsy done on 04/19/17 showed mildly hypercellular marrow with no evidence of hematologic malignancy. (6) Tobacco abuse Current Visit: No Status: Acute Code(s): Z72.0 - TOBACCO USE SNOMED Code(s ): 079793135 Comment: Pt advised to quit smoking and avoid second hand smoke. chews. (7) CKD (chronic kidney disease) stage 3, GFR 30-59 ml/min Current Visit: No Status: Chronic Priority: Medium Code(s): N18.3 - CHRONIC KIDNEY DISEASE, STAGE 3 (MODERATE) SNOMED Code(s): 251269336 Comment: Est GFR 49.8 07/22/17. Stable. (8) HTN (hypertension) Current Visit: No Status: Chronic Onset Date: 06/23/14 Code(s): I10 - ESSENTIAL (PRIMARY) HYPERTENSION SNOMED Code(s): 65010759 Comment: Her BP meds same as her cardiac meds. (9) COPD (chronic obstructive pulmonary disease) Current Visit: No Status: Chronic Code(s): J44.9 - CHRONIC OBSTRUCTIVE PULMONARY DISEASE, UNSPECIFIED SNOMED Code(s): 91636719 Comment: - Continue Spiriva and Dulera.
[2017-07-22 18:58] LABS: Magnesium 1.7 mg/dL (1.9-2.7)
[2017-07-22] MEDS: Ciprofloxacin 400MG IVPREMIX(* 400 MG/200 ML BAG IVPB SCH (20:42)
[2017-07-22] MEDS: Gabapentin CAP(*) 400 MG PO SCH (20:45)
[2017-07-22] MEDS: Atorvastatin* 20 MG TAB PO SCH (20:46)
[2017-07-22] MEDS: Nystatin TOP POWDER* 15 GM BTL TOPICAL SCH (20:47)
[2017-07-22] MEDS: Mometasone/Formoter 100/5 MDI INH SCH (20:47)
[2017-07-22] MEDS: Ondansetron INJ* 2 MG/ML VIAL IV PRN (20:57)
[2017-07-22] MEDS: Pramipexole TAB* 0.5 MG PO SCH (21:01)
[2017-07-22] MEDS: Insulin LISPRO* 1 UNITS UNIT SUBCUT SCH (21:11)
[2017-07-22] MEDS: Potassium Chlor TAB* 20 MEQ TAB.ER PO SCH (21:19)
[2017-07-22] MEDS: Heparin VIAL(*) 5000 UNITS/ML VIAL (FIVE THOUSAND) SUBCUT SCH (21:28)
[2017-07-22] MEDS ORDERED: Magnesium Sulfate 2 GM IV* 2 GM/50 ML BAG IVPB ONE (21:30)
[2017-07-22] MEDS: Linezolid 600 MG IVPREMIX(*) 600 MG/300 ML BAG IVPB SCH (22:06)
[2017-07-23] MEDS: KCL 10 MEQ/50 ML IVPREMIX* 10 MEQ/50 ML BAG IV SCH ×2 (00:45→02:59)
[2017-07-23] MEDS: Ondansetron INJ* 2 MG/ML VIAL IV PRN (02:32)
[2017-07-23] MEDS: oxyCODONE/Acetamin 5/325 MG* TAB PO PRN ×3 (02:34→19:55)
[2017-07-23] MEDS: Heparin VIAL(*) 5000 UNITS/ML VIAL (FIVE THOUSAND) SUBCUT SCH ×3 (05:16→22:38)
[2017-07-23] MEDS: Morphine INJ* 4 MG/ML 1 ML CARPUJECT IV PRN (05:21)
[2017-07-23] MEDS ORDERED: Alteplase (CATHFLO)* 2 MG VIAL IV PRN ×2 (07:31→12:39)
[2017-07-23] MEDS: Insulin GLARGINE(*) 1 UNITS UNIT SUBCUT SCH (08:56)
[2017-07-23] MEDS: Insulin LISPRO* 1 UNITS UNIT SUBCUT SCH ×4 (08:57→20:35)
[2017-07-23] MEDS: Ciprofloxacin 400MG IVPREMIX(* 400 MG/200 ML BAG IVPB SCH ×2 (08:58→14:50)
[2017-07-23] MEDS ORDERED: Spironolactone TAB* 25 MG PO SCH ×2 (09:00→13:21)
[2017-07-23] MEDS ORDERED: Spiriva Inhaler DEVICE* 1 EACH DEVICE INH ONE (09:00)
[2017-07-23] MEDS: Metoclopramide TAB* 10 MG PO SCH ×3 (09:23→17:57)
[2017-07-23] MEDS: Clopidogrel TAB* 75 MG PO SCH (10:53)
[2017-07-23] MEDS: Potassium Chlor TAB* 20 MEQ TAB.ER PO SCH (10:53)
[2017-07-23] MEDS: Aspirin EC Low Dose* 81 MG TAB.EC PO SCH (10:53)
[2017-07-23] MEDS: Torsemide TAB* 20 MG PO SCH (10:53)
[2017-07-23] MEDS: Carvedilol TAB* 3.125 MG PO SCH (10:54)
[2017-07-23] MEDS: Tiotropium CAP.INH* CAP.INH/18 MCG (USE ORDER SET !) INH SCH (10:56)
[2017-07-23] MEDS: Mometasone/Formoter 100/5 MDI INH SCH ×2 (10:59→20:36)
[2017-07-23] MEDS ORDERED: Metolazone TAB* 5 MG PO ONE (13:17)
--- NOTE | 2017-07-23 13:18 | CONS ---
CONSULTATION REPORT: DATE OF CONSULT: 07/23/17 REQUESTING PHYSICIAN: Dr. Ortiz. CONSULTING SERVICE: Infectious Disease. REASON FOR CONSULTATION: Left ankle and stump pain. IMPRESSION: 1. History of left ankle disarticulation in 2015 and then in June 2017, calcaneus abscess drainage, been on antibiotics since that time, now with worsening ankle pain and stump pain. Culture of her plantar ulcer was taken on 07/20/17, there was no growth. In June 2017, the wound had grown group B Strep enterococcus and jorge. She could have osteomyelitis with recurrence of soft tissue infection as the cause of her symptoms versus mechanical cause as her CRP is only 14. 2. Insulin-dependent diabetes with neuropathy. 3. Tobacco abuse, in brief remission. 4. Multiple drug allergies including most antibiotics. RECOMMENDATIONS: Agree with linezolid and ciprofloxacin and may need a scan of her foot. If Dr. Hess is not planning further surgical treatment, it would be helpful then to reassess her bone with an MRI. HISTORY OF PRESENT ILLNESS: A 57-year-old diabetic woman with left foot pain. She had her foot disarticulation in 2015, has had a plantar ulcer for 3-4 months , had an abscess drained there in June, then had a cath placed, was doing well on linezolid and Cipro as an outpatient. Then, over the last few days, had worsening foot pain and was sent into the ER by Dr. Hess. Pain medicine has helped some. Weightbearing makes her symptoms worse. She has had no fevers , chills or sweats. Her CRP was 14. Creatinine is 1.1, platelets 48. She was started on IV linezolid and Cipro. She is afebrile. The pain is a little bit better today. PAST MEDICAL HISTORY: 1. Diabetes with peripheral neuropathy. 2. Tobacco abuse. 3. Coronary artery disease, status post CABG. 4. Left foot osteomyelitis, status post disarticulation of the foot. 5. Peripheral vascular disease, status post carotid endarterectomy. 6. History of a stroke. 7. Hypertension. 8. Hyperlipidemia. 9. Left subclavian artery stenosis, status post intervention. 10. Restless leg syndrome. 11. Congestive heart failure. 12. Anemia. 13. COPD. 14. Status post appendectomy. 15. Status post cholecystectomy. 16. Status post tonsillectomy. 17. Status post laminectomy. 18. Status post pacemaker defibrillator placement. MEDICATIONS: 1. Albuterol. 2. Aspirin. 3. Lipitor. 4. Coreg. 5. Cipro 400 mg every 12 hours. 6. Plavix. 7. Gabapentin. 8. Enalapril. 9. Heparin subcutaneous injection. 10. Lispro. 11. Linezolid 600 mg every 12 hours. 10. Reglan. 11. Nitroglycerin p.r.n. 12. Potassium. 13. Mirapex. 14. Spiriva. 15. Torsemide. ALLERGIES: CEPHALOSPORIN, PENICILLIN, SULFA, BEE VENOM, DIPHENHYDRAMINE, MEROPENEM, VANCOMYCIN, CODEINE. SOCIAL HISTORY: She lives in [place] with her . No travel. No sick contacts. FAMILY HISTORY: She is adopted. REVIEW OF SYSTEMS: A 14-point review of systems was negative except as noted above. PHYSICAL EXAM: Vital Signs: Temperature 36.6, heart rate 60, respiratory rate 16, blood pressure 100/52, and O2 sat 97% on room air. In general, she is awake , not in distress. Neurologic: She is oriented x3, follows all commands. HEENT: There is no conjunctival hemorrhage. Oropharynx without lesions. Neck: Neck is supple without nuchal rigidity. Lymph Nodes: There is no cervical, supraclavicular, inguinal, axillary, or epitrochlear lymphadenopathy. Heart has regular rate and rhythm without murmurs, rubs, or gallops. Lungs are clear to auscultation bilaterally. Abdomen: Soft, nontender, and nondistended. Bowel sounds are present. Skin: There is no rash or splinter hemorrhages. Musculoskeletal: The left foot is mostly surgically absent. The plantar forefoot, there is a 3 mm ulcer with surrounding callus, no erythema. The lateral foot is mildly erythematous and tender to palpation. There is mild warmth. LABORATORY DATA: White blood cell count 9, hemoglobin 8.7, platelets 48. Creatinine is 1.1. Please see impressions and recommendations outlined above which I have discussed with Dr. Ortiz. Thank you for asking me to see Ms. Galarza in consultation. [id number]/CPS #: [id number] MTDD
--- NOTE | 2017-07-23 13:26 | PN ---
Subjective Date of Service: 07/23/17 Interval History: Little change in her L foot pain. Pt satisfied with the pain control meds. Pt thinks she gained 4 lbs. Family History: Findings - The patient is adopted. Social History: Findings - Last smoked about 2 weeks ago. No alcohol abuse. Lives with her who is her SDM. Past Medical History: Findings - CAD s/p CABG, pacer. L Pirogoff amputation. Appy, tonsil, shadia, CEA, lami. DM with neuropathy and gastroparesis. COPD on home O2. Restless legs, Objective Active Medications: Albuterol/Ipratropium (Duoneb (Albuterol 2.5 Mg/Ipratropium 0.5 Mg)) 1 neb INH TID PRN PRN Reason: SHORTNESS OF BREATH Alteplase, Recombinant (Cathflo Activase*) 2 mg IV Q2H PRN PRN Reason: occluded port Aspirin (Aspirin Ec Low Dose*) 81 mg PO DAILY [facility] Last Admin: 07/23/17 10:53 Dose: 81 mg Atorvastatin Calcium (Lipitor*) 20 mg PO BEDTIME [facility] Last Admin: 07/22/17 20:46 Dose: 20 mg Carvedilol (Coreg Tab*) 1.5625 mg PO QAM [facility] Last Admin: 07/23/17 10:54 Dose: 1.5625 mg Clopidogrel Bisulfate (Plavix Tab*) 75 mg PO DAILY [facility] Last Admin: 07/23/17 10:53 Dose: 75 mg Dextrose (D50w Syringe 50 Ml*) 12.5 gm IV PUSH .FOR FS < 60 - SS PRN PRN Reason: FS < 60 Enalapril Maleate (Vasotec Tab*) 5 mg PO DAILY@1200 [facility] Gabapentin (Neurontin Cap(*)) 1,200 mg PO BEDTIME [facility] Last Admin: 07/22/17 20:45 Dose: 1,200 mg Heparin Sodium (Porcine) (Heparin Vial(*)) 5,000 units SUBCUT Q8HR [facility] Last Admin: 07/23/17 05:16 Dose: 5,000 units Heparin Sodium (Porcine) (Heparin Flush Port (Ivad)) 5 ml FLUSH DAILY [facility] PRN Reason: Protocol Ciprofloxacin/Dextrose (Cipro 400 Mg Ivpremix(*)) 400 mg in 200 mls @ 200 mls/ hr IVPB Q12H [facility] Last Admin: 07/22/17 20:42 Dose: 200 mls/hr Linezolid (Zyvox 600 Mg Ivpremix(*)) 600 mg in 300 mls @ 300 mls/hr IVPB Q12H [facility] Last Admin: 07/22/17 22:06 Dose: 300 mls/hr Insulin Glargine (Lantus(*)) 30 units SUBCUT DAILY [facility] Last Admin: 07/23/17 08:56 Dose: 30 units Insulin Human Lispro (Humalog*) 0 units SUBCUT ACHS [facility] PRN Reason: Protocol Last Admin: 07/23/17 08:57 Dose: 2 units Metoclopramide HCl (Reglan Tab*) 5 mg PO AC [facility] Last Admin: 07/23/17 09:23 Dose: 5 mg Mometasone Furoate/Formoterol Fumar (Dulera 100/5 Mdi*) 1 puff INH BID [facility] Last Admin: 07/23/17 10:59 Dose: 1 puff Morphine Sulfate (Morphine Inj (Syringe)*) 4 mg IV Q6H PRN PRN Reason: PAIN Last Admin: 07/23/17 05:21 Dose: 4 mg Nitroglycerin (Nitroglycerin Tab 0.4 Mg*) 0.4 mg SL Q5M PRN PRN Reason: PAIN - CHEST Nystatin (Nystatin Top Powder*) 1 applic TOPICAL TID [facility] Last Admin: 07/22/17 20:47 Dose: Not Given Ondansetron HCl (Zofran Inj*) 4 mg IV Q4H PRN PRN Reason: NAUSEA Last Admin: 07/23/17 02:32 Dose: 4 mg Oxycodone/Acetaminophen (Percocet 5/325 Tab*) 1 tab PO Q4H PRN PRN Reason: PAIN Last Admin: 07/23/17 11:05 Dose: 1 tab Pramipexole Dihydrochloride (Mirapex Tab*) 5 mg PO BEDTIME [facility] Last Admin: 07/22/17 21:01 Dose: 2 mg Tiotropium [place] (Spiriva Cap.Inh*) 1 cap INH DAILY [facility] Last Admin: 07/23/17 10:56 Dose: 1 inh Torsemide (Demadex*) 40 mg PO DAILY [facility] Last Admin: 07/23/17 10:53 Dose: 40 mg Torsemide (Demadex*) 40 mg PO ONCE ONE Stop: 07/23/17 13:51 Vital Signs 07/22/17 07/22/17 07/22/17 18:00 18:30 19:00 Temperature Pulse Rate 87 81 79 Respiratory 22 20 18 Rate Blood Pressure 161/90 141/83 144/85 (mmHg) O2 Sat by Pulse 100 100 98 Oximetry 07/22/17 07/22/17 07/22/17 20:29 20:45 21:31 Temperature 99.2 F Pulse Rate 84 Respiratory 18 18 18 Rate Blood Pressure 149/79 (mmHg) O2 Sat by Pulse 100 Oximetry 07/22/17 07/22/17 07/23/17 22:45 23:40 02:34 Temperature 98.3 F Pulse Rate 73 Respiratory 18 18 18 Rate Blood Pressure 107/58 (mmHg) O2 Sat by Pulse 93 Oximetry 07/23/17 07/23/17 07/23/17 03:13 04:34 05:21 Temperature 98.0 F Pulse Rate 71 Respiratory 18 16 18 Rate Blood Pressure 102/57 (mmHg) O2 Sat by Pulse 96 Oximetry 07/23/17 07/23/17 07/23/17 06:21 07:12 11:05 Temperature 97.9 F Pulse Rate 66 Respiratory 16 16 20 Rate Blood Pressure 99/52 (mmHg) O2 Sat by Pulse 97 Oximetry 07/23/17 11:08 Temperature 98.1 F Pulse Rate 66 Respiratory 20 Rate Blood Pressure 102/60 (mmHg) O2 Sat by Pulse 96 Oximetry Oxygen Devices in Use Now: Nasal Cannula Appearance: Alert, sitting up in bed. In fair spirits. Looks comfortable. Eyes: No Scleral Icterus Neck: NL Appearance and Movements; NL JVP, No Thyroid Enlargement, Masses Respiratory: Symmetrical Chest Expansion and Respiratory Effort, Clear to Auscultation, Clear to Percussion Cardiovascular: NL Sounds; No Murmurs; No JVD, RRR, No Edema, - Extremities: No Edema, No Clubbing, Cyanosis, - Skin: No Rash or Ulcers, No Nodules or Sclerosis, - Neurological: Alert and Oriented x 3, NL Sensation Result Diagrams: 07/22/17 17:09 07/22/17 17:09 Additional Lab and Data: Lab Results 07/22/17 07/22/17 07/22/17 Range/Units 17:09 17:09 17:09 WBC 9.0 (3.5-10.8) 10^3/ul RBC 2.93 L (4.0-5.4) 10^6/ul Hgb 8.7 L (12.0-16.0) g/dl Hct 27 L (35-47) % MCV 91 (80-97) fL MCH 30 (27-31) pg MCHC 32 (31-36) g/dl RDW 19 H (10.5-15) % Plt Count 488 H D (150-450) 10^3/ul MPV 8 (7.4-10.4) um3 Neut % (Auto) 73.7 (38-83) % Lymph % (Auto) 14.2 L (25-47) % [place] % (Auto) 8.1 (1-9) % Eos % (Auto) 3.0 (0-6) % Baso % (Auto) 1.0 (0-2) % Absolute Neuts (auto) 6.6 (1.5-7.7) 10^3/ul Absolute Lymphs (auto) 1.3 (1.0-4.8) 10^3/ul Absolute Monos (auto) 0.7 (0-0.8) 10^3/ul Absolute Eos (auto) 0.3 (0-0.6) 10^3/ul Absolute Basos (auto) 0.1 (0-0.2) 10^3/ul Absolute Nucleated RBC 0.01 10^3/ul Nucleated RBC % 0.1 Sodium 134 (133-145) mmol/L Potassium 3.4 L (3.5-5.0) mmol/L Chloride 94 L (101-111) mmol/L Carbon Dioxide 34 H (22-32) mmol/L Anion Gap 6 (2-11) mmol/L BUN 25 H (6-24) mg/dL Creatinine 1.13 H (0.51-0.95) mg/dL Est GFR ( Amer) 64.1 (>60) Est GFR (Non-Af Amer) 49.8 (>60) BUN/Creatinine Ratio 22.1 H (8-20) Glucose 360 H (70-100) mg/dL Lactic Acid 1.2 (0.5-2.0) mmol/L Calcium 8.3 L (8.6-10.3) mg/dL Total Bilirubin 0.80 (0.2-1.0) mg/dL AST 10 L (13-39) U/L ALT 8 (7-52) U/L Alkaline Phosphatase 147 H (34-104) U/L C-Reactive Protein 14.10 H (< 5.00) mg/L Total Protein 6.1 L (6.4-8.9) g/dL Albumin 3.0 L (3.2-5.2) g/dL Globulin 3.1 (2-4) g/dL Albumin/Globulin Ratio 1.0 (1-3) Assess/Plan/Problems-Billing Assessment: - Patient Problems (1) Diabetic foot infection Current Visit: Yes Status: Acute Code(s): E11.69 - TYPE 2 DIABETES MELLITUS WITH OTHER SPECIFIED COMPLICATION; L08.9 - LOCAL INFECTION OF THE SKIN AND SUBCUTANEOUS TISSUE, UNSP SNOMED Code(s): 219149653 Comment: Continue cipro/linezolid. (2) DVT prophylaxis Current Visit: No Status: Acute Code(s): ZSW5080 - SNOMED Code(s): 003104801 Comment: - SQ heparin. (3) CAD (coronary artery disease) Current Visit: No Status: Chronic Code(s): I25.10 - ATHSCL HEART DISEASE OF [place] CORONARY ARTERY W/O ANG PCTRS SNOMED Code(s): 43726822 Comment: With compensated systolic CHF. Continue clopidogrel, ASA, statin, BB, ACEI, torsemide. Increase spironolactone, change KCL to 10 meq tid (pt has trouble swallowing KCL 20 deepti.. Likely can decrease dose or stop KCL later. Mg ++ 1.7 07/22, start mag oxide 400 mg daily 07/23. (4) Diabetes mellitus due to underlying condition with diabetic neuropathy, without long-term current use of insulin Current Visit: Yes Status: Acute Code(s): E08.40 - DIABETES DUE TO UNDERLYING CONDITION W DIABETIC NEUROP, UNSP SNOMED Code(s): 6277233 Comment: Also diabetic gastroparesis. Continue home dose Lantus. Lispro by SS. Continue metoclopramide. Reduced dose gabapentin hs. (5) Anemia Current Visit: No Status: Acute Code(s): D64.9 - ANEMIA, UNSPECIFIED SNOMED Code(s): 944516886 Comment: Stable, likely anemia of chronic disease. - BM biopsy done on 04/19/17 showed mildly hypercellular marrow with no evidence of hematologic malignancy. (6) Tobacco abuse Current Visit: No Status: Acute Code(s): Z72.0 - TOBACCO USE SNOMED Code(s ): 968943352 Comment: Pt advised to quit smoking and avoid second hand smoke. chews. (7) CKD (chronic kidney disease) stage 3, GFR 30-59 ml/min Current Visit: No Status: Chronic Priority: Medium Code(s): N18.3 - CHRONIC KIDNEY DISEASE, STAGE 3 (MODERATE) SNOMED Code(s): 999322171 Comment: Est GFR 49.8 07/22/17. Stable. BMP 07/24. (8) HTN (hypertension) Current Visit: No Status: Chronic Onset Date: 06/23/14 Code(s): I10 - ESSENTIAL (PRIMARY) HYPERTENSION SNOMED Code(s): 00137679 Comment: Her BP meds same as her cardiac meds. (9) COPD (chronic obstructive pulmonary disease) Current Visit: No Status: Chronic Code(s): J44.9 - CHRONIC OBSTRUCTIVE PULMONARY DISEASE, UNSPECIFIED SNOMED Code(s): 26527812 Comment: - Continue Spiriva and Dulera.
[2017-07-23] MEDS: Nystatin TOP POWDER* 15 GM BTL TOPICAL SCH ×3 (13:29→20:00)
[2017-07-23] MEDS ORDERED: Torsemide TAB* 20 MG PO ONE (13:50)
[2017-07-23] MEDS ORDERED: Potassium Chlor TAB* 20 MEQ TAB.ER PO SCH (14:00)
[2017-07-23] MEDS: Magnesium Oxide TAB* 400 MG PO SCH (14:32)
[2017-07-23] MEDS: Enalapril TAB* 5 MG PO SCH (14:32)
[2017-07-23] MEDS ORDERED: Potassium Chlor TAB* 10 MEQ TAB.ER PO SCH (14:35)
[2017-07-23] MEDS: Linezolid 600 MG IVPREMIX(*) 600 MG/300 ML BAG IVPB SCH (15:53)
[2017-07-23] MEDS: Pramipexole TAB* 0.5 MG PO SCH (19:52)
[2017-07-23] MEDS: Gabapentin CAP(*) 400 MG PO SCH (19:52)
[2017-07-23] MEDS: Atorvastatin* 20 MG TAB PO SCH (19:54)
[2017-07-23] MEDS: Potassium Chloride LIQUID* 20 MEQ PACKET PO SCH (19:57)
[2017-07-24] MEDS: oxyCODONE/Acetamin 5/325 MG* TAB PO PRN ×2 (00:22→09:58)
[2017-07-24] MEDS: Ciprofloxacin 400MG IVPREMIX(* 400 MG/200 ML BAG IVPB SCH ×2 (02:16→13:50)
[2017-07-24] MEDS: Linezolid 600 MG IVPREMIX(*) 600 MG/300 ML BAG IVPB SCH ×2 (03:54→15:51)
[2017-07-24] MEDS: Heparin VIAL(*) 5000 UNITS/ML VIAL (FIVE THOUSAND) SUBCUT SCH ×3 (05:54→22:10)
[2017-07-24 08:59] LABS: BUN/Creatinine Ratio 13.2 (8-20); Calcium 8.3 mg/dL (8.6-10.3); EGFR African American 24.8 (>60); EGFR Non-African American 19.3 (>60); Potassium 4.5 mmol/L (3.5-5.0)
[2017-07-24] MEDS: Metoclopramide TAB* 10 MG PO SCH ×2 (09:54→12:31)
[2017-07-24] MEDS: Potassium Chloride LIQUID* 20 MEQ PACKET PO SCH (09:55)
[2017-07-24] MEDS: Magnesium Oxide TAB* 400 MG PO SCH (09:58)
[2017-07-24] MEDS: Carvedilol TAB* 3.125 MG PO SCH (09:59)
[2017-07-24] MEDS: Aspirin EC Low Dose* 81 MG TAB.EC PO SCH (09:59)
[2017-07-24] MEDS: Torsemide TAB* 20 MG PO SCH (09:59)
[2017-07-24] MEDS: Clopidogrel TAB* 75 MG PO SCH (09:59)
[2017-07-24] MEDS: Tiotropium CAP.INH* CAP.INH/18 MCG (USE ORDER SET !) INH SCH (10:01)
[2017-07-24] MEDS: Insulin LISPRO* 1 UNITS UNIT SUBCUT SCH ×4 (10:02→20:29)
[2017-07-24] MEDS: Insulin GLARGINE(*) 1 UNITS UNIT SUBCUT SCH (10:04)
[2017-07-24] MEDS: Nystatin TOP POWDER* 15 GM BTL TOPICAL SCH ×2 (10:05→13:55)
[2017-07-24] MEDS: Mometasone/Formoter 100/5 MDI INH SCH ×2 (10:12→19:30)
[2017-07-24] MEDS: Enalapril TAB* 5 MG PO SCH (12:31)
[2017-07-24] MEDS: NS 0.9% 1000 ML* 1,000 ML IV SCH ×2 (14:36→22:46)
--- NOTE | 2017-07-24 14:37 | PN ---
Subjective Date of Service: 07/24/17 Interval History: L foot pain not well controlled with one oxycodone'APAP. Family History: Findings - The patient is adopted. Social History: Findings - Last smoked about 2 weeks ago. No alcohol abuse. Lives with her who is her SDM. Past Medical History: Findings - CAD s/p CABG, pacer. L Pirogoff amputation. Appy, tonsil, shadia, CEA, lami. DM with neuropathy and gastroparesis. COPD on home O2. Restless legs, Objective Active Medications: Albuterol/Ipratropium (Duoneb (Albuterol 2.5 Mg/Ipratropium 0.5 Mg)) 1 neb INH TID PRN PRN Reason: SHORTNESS OF BREATH Alteplase, Recombinant (Cathflo Activase*) 2 mg IV Q2H PRN PRN Reason: occluded port Aspirin (Aspirin Ec Low Dose*) 81 mg PO DAILY [facility] Last Admin: 07/24/17 09:59 Dose: 81 mg Atorvastatin Calcium (Lipitor*) 20 mg PO BEDTIME [facility] Last Admin: 07/23/17 19:54 Dose: 20 mg Carvedilol (Coreg Tab*) 1.5625 mg PO QAM [facility] Last Admin: 07/24/17 09:59 Dose: 1.5625 mg Clopidogrel Bisulfate (Plavix Tab*) 75 mg PO DAILY [facility] Last Admin: 07/24/17 09:59 Dose: 75 mg Dextrose (D50w Syringe 50 Ml*) 12.5 gm IV PUSH .FOR FS < 60 - SS PRN PRN Reason: FS < 60 Enalapril Maleate (Vasotec Tab*) 5 mg PO DAILY@1200 [facility] Last Admin: 07/24/17 12:31 Dose: 5 mg Gabapentin (Neurontin Cap(*)) 1,200 mg PO BEDTIME [facility] Last Admin: 07/23/17 19:52 Dose: 1,200 mg Heparin Sodium (Porcine) (Heparin Vial(*)) 5,000 units SUBCUT Q8HR [facility] Last Admin: 07/24/17 13:54 Dose: 5,000 units Heparin Sodium (Porcine) (Heparin Flush Port (Ivad)) 5 ml FLUSH DAILY [facility] PRN Reason: Protocol Last Admin: 07/24/17 12:36 Dose: Not Given Ciprofloxacin/Dextrose (Cipro 400 Mg Ivpremix(*)) 400 mg in 200 mls @ 200 mls/ hr IVPB 0200,1400 [facility] Last Admin: 07/24/17 13:50 Dose: 200 mls/hr Linezolid (Zyvox 600 Mg Ivpremix(*)) 600 mg in 300 mls @ 300 mls/hr IVPB 0400, 1600 [facility] Last Admin: 07/24/17 03:54 Dose: 300 mls/hr Sodium Chloride (Ns 0.9% 1000 Ml*) 1,000 mls @ 150 mls/hr IV PER RATE [facility] Insulin Glargine (Lantus(*)) 30 units SUBCUT DAILY [facility] Last Admin: 07/24/17 10:04 Dose: 30 units Insulin Human Lispro (Humalog*) 0 units SUBCUT ACHS [facility] PRN Reason: Protocol Last Admin: 07/24/17 13:54 Dose: 4 units Magnesium Oxide (Magox 400 Tab*) 400 mg PO DAILY [facility] Last Admin: 07/24/17 09:58 Dose: 400 mg Metoclopramide HCl (Reglan Tab*) 5 mg PO AC [facility] Last Admin: 07/24/17 12:31 Dose: Not Given Mometasone Furoate/Formoterol Fumar (Dulera 100/5 Mdi*) 1 puff INH BID [facility] Last Admin: 07/24/17 10:12 Dose: 1 puff Morphine Sulfate (Morphine Inj (Syringe)*) 4 mg IV Q6H PRN PRN Reason: PAIN Last Admin: 07/23/17 05:21 Dose: 4 mg Nitroglycerin (Nitroglycerin Tab 0.4 Mg*) 0.4 mg SL Q5M PRN PRN Reason: PAIN - CHEST Nystatin (Nystatin Top Powder*) 1 applic TOPICAL TID [facility] Last Admin: 07/24/17 13:55 Dose: Not Given Ondansetron HCl (Zofran Inj*) 4 mg IV Q4H PRN PRN Reason: NAUSEA Last Admin: 07/23/17 02:32 Dose: 4 mg Oxycodone/Acetaminophen (Percocet 5/325 Tab*) 1 tab PO Q4H PRN PRN Reason: PAIN Last Admin: 07/24/17 09:58 Dose: 1 tab Pramipexole Dihydrochloride (Mirapex Tab*) 5 mg PO BEDTIME [facility] Last Admin: 07/23/17 19:52 Dose: 5 mg Tiotropium [place] (Spiriva Cap.Inh*) 1 cap INH DAILY [facility] Last Admin: 07/24/17 10:01 Dose: 1 inh Vital Signs 07/23/17 07/23/17 07/23/17 15:44 19:46 19:52 Temperature 98.2 F 97.9 F Pulse Rate 66 69 Respiratory 20 18 16 Rate Blood Pressure 121/70 145/73 (mmHg) O2 Sat by Pulse 97 99 Oximetry 07/23/17 07/23/17 07/23/17 19:55 20:01 21:52 Temperature Pulse Rate Respiratory 16 16 16 Rate Blood Pressure (mmHg) O2 Sat by Pulse Oximetry 07/23/17 07/23/17 07/24/17 21:55 23:54 00:22 Temperature 97.7 F Pulse Rate 70 Respiratory 16 16 18 Rate Blood Pressure 124/74 (mmHg) O2 Sat by Pulse 98 Oximetry 07/24/17 07/24/17 07/24/17 02:22 04:34 07:52 Temperature 97.8 F 98.1 F Pulse Rate 72 69 Respiratory 16 16 17 Rate Blood Pressure 103/56 122/66 (mmHg) O2 Sat by Pulse 97 98 Oximetry 07/24/17 07/24/17 09:58 11:58 Temperature Pulse Rate Respiratory 16 16 Rate Blood Pressure (mmHg) O2 Sat by Pulse Oximetry Oxygen Devices in Use Now: Nasal Cannula Appearance: Alert, sitting up in her bed. In fair spirits. Looks fairly comfortable. Eyes: No Scleral Icterus Neck: NL Appearance and Movements; NL JVP, No Thyroid Enlargement, Masses Respiratory: Symmetrical Chest Expansion and Respiratory Effort, Clear to Auscultation, Clear to Percussion Cardiovascular: NL Sounds; No Murmurs; No JVD, RRR, No Edema, - Extremities: No Edema, No Clubbing, Cyanosis, - - L Pirogoff amputation. Skin: No Rash or Ulcers, No Nodules or Sclerosis, - Neurological: Alert and Oriented x 3, NL Sensation Result Diagrams: 07/22/17 17:09 07/24/17 08:29 Additional Lab and Data: Lab Results 07/22/17 07/22/17 07/22/17 Range/Units 17:09 17:09 17:09 WBC 9.0 (3.5-10.8) 10^3/ul RBC 2.93 L (4.0-5.4) 10^6/ul Hgb 8.7 L (12.0-16.0) g/dl Hct 27 L (35-47) % MCV 91 (80-97) fL MCH 30 (27-31) pg MCHC 32 (31-36) g/dl RDW 19 H (10.5-15) % Plt Count 488 H D (150-450) 10^3/ul MPV 8 (7.4-10.4) um3 Neut % (Auto) 73.7 (38-83) % Lymph % (Auto) 14.2 L (25-47) % [place] % (Auto) 8.1 (1-9) % Eos % (Auto) 3.0 (0-6) % Baso % (Auto) 1.0 (0-2) % Absolute Neuts (auto) 6.6 (1.5-7.7) 10^3/ul Absolute Lymphs (auto) 1.3 (1.0-4.8) 10^3/ul Absolute Monos (auto) 0.7 (0-0.8) 10^3/ul Absolute Eos (auto) 0.3 (0-0.6) 10^3/ul Absolute Basos (auto) 0.1 (0-0.2) 10^3/ul Absolute Nucleated RBC 0.01 10^3/ul Nucleated RBC % 0.1 Sodium 134 (133-145) mmol/L Potassium 3.4 L (3.5-5.0) mmol/L Chloride 94 L (101-111) mmol/L Carbon Dioxide 34 H (22-32) mmol/L Anion Gap 6 (2-11) mmol/L BUN 25 H (6-24) mg/dL Creatinine 1.13 H (0.51-0.95) mg/dL Est GFR ( Amer) 64.1 (>60) Est GFR (Non-Af Amer) 49.8 (>60) BUN/Creatinine Ratio 22.1 H (8-20) Glucose 360 H (70-100) mg/dL Lactic Acid 1.2 (0.5-2.0) mmol/L Calcium 8.3 L (8.6-10.3) mg/dL Total Bilirubin 0.80 (0.2-1.0) mg/dL AST 10 L (13-39) U/L ALT 8 (7-52) U/L Alkaline Phosphatase 147 H (34-104) U/L C-Reactive Protein 14.10 H (< 5.00) mg/L Total Protein 6.1 L (6.4-8.9) g/dL Albumin 3.0 L (3.2-5.2) g/dL Globulin 3.1 (2-4) g/dL Albumin/Globulin Ratio 1.0 (1-3) Assess/Plan/Problems-Billing Assessment: - Patient Problems (1) Diabetic foot infection Current Visit: Yes Status: Acute Code(s): E11.69 - TYPE 2 DIABETES MELLITUS WITH OTHER SPECIFIED COMPLICATION; L08.9 - LOCAL INFECTION OF THE SKIN AND SUBCUTANEOUS TISSUE, UNSP SNOMED Code(s): 242433911 Comment: Continue cipro/linezolid. Dr. Hess will discuss surgical tx with pt on 07/25. (2) DVT prophylaxis Current Visit: No Status: Acute Code(s): EGP6246 - SNOMED Code(s): 464769174 Comment: - SQ heparin. (3) CAD (coronary artery disease) Current Visit: No Status: Chronic Code(s): I25.10 - ATHSCL HEART DISEASE OF [place] CORONARY ARTERY W/O ANG PCTRS SNOMED Code(s): 08702391 Comment: With compensated systolic CHF. Continue clopidogrel, ASA, statin, BB, ACEI, torsemide. Increase spironolactone, change KCL to 10 meq tid (pt has trouble swallowing KCL 20 deepti.. Likely can decrease dose or stop KCL later. Mg ++ 1.7 07/22, start mag oxide 400 mg daily 07/23. (4) Diabetes mellitus due to underlying condition with diabetic neuropathy, without long-term current use of insulin Current Visit: Yes Status: Acute Code(s): E08.40 - DIABETES DUE TO UNDERLYING CONDITION W DIABETIC NEUROP, UNSP SNOMED Code(s): 9328333 Comment: Also diabetic gastroparesis. Continue home dose Lantus. Lispro by SS. Change metoclopramide to PRN as pt refusing most or all doses and is eating OK. Reduced dose gabapentin hs. (5) Anemia Current Visit: No Status: Acute Code(s): D64.9 - ANEMIA, UNSPECIFIED SNOMED Code(s): 978468423 Comment: Stable, likely anemia of chronic disease. - BM biopsy done on 04/19/17 showed mildly hypercellular marrow with no evidence of hematologic malignancy. (6) Tobacco abuse Current Visit: No Status: Acute Code(s): Z72.0 - TOBACCO USE SNOMED Code(s ): 079703951 Comment: Pt advised to quit smoking and avoid second hand smoke. chews. (7) CKD (chronic kidney disease) stage 3, GFR 30-59 ml/min Current Visit: No Status: Chronic Priority: Medium Code(s): N18.3 - CHRONIC KIDNEY DISEASE, STAGE 3 (MODERATE) SNOMED Code(s): 404555953 Comment: Acute change 07/24. Bladder scan requestd. 1 L NSS at 150 ml/hr then check BMP. Stop torsemide, sprionolacton, and KCL. BMP again 07/25. (8) HTN (hypertension) Current Visit: No Status: Chronic Onset Date: 06/23/14 Code(s): I10 - ESSENTIAL (PRIMARY) HYPERTENSION SNOMED Code(s): 41929794 Comment: Her BP meds same as her cardiac meds. (9) COPD (chronic obstructive pulmonary disease) Current Visit: No Status: Chronic Code(s): J44.9 - CHRONIC OBSTRUCTIVE PULMONARY DISEASE, UNSPECIFIED SNOMED Code(s): 67656619 Comment: - Continue Spiriva and Dulera.
[2017-07-24] MEDS ORDERED: Metoclopramide TAB* 10 MG PO PRN (14:44)
[2017-07-24] MEDS: oxyCODONE TAB* 5 MG TAB PO PRN ×2 (15:50→20:30)
[2017-07-24 16:13] LABS: Urine Bacteria Absent (Absent); Urine Bilirubin Negative (Negative); Urine Glucose 1+(50 mg/dL) (Negative); Urine Nitrite Negative (Negative)
[2017-07-24] MEDS: Gabapentin CAP(*) 400 MG PO SCH (20:20)
[2017-07-24] MEDS: Atorvastatin* 20 MG TAB PO SCH (20:20)
[2017-07-24] MEDS: Pramipexole TAB* 0.5 MG PO SCH (20:21)
[2017-07-24 21:59] LABS: BUN/Creatinine Ratio 14.2 (8-20); Calcium 8.1 mg/dL (8.6-10.3); EGFR Non-African American 20.2 (>60); Potassium 4.2 mmol/L (3.5-5.0)
[2017-07-25] MEDS: Linezolid 600 MG IVPREMIX(*) 600 MG/300 ML BAG IVPB SCH ×2 (04:06→15:33)
[2017-07-25] MEDS: oxyCODONE TAB* 5 MG TAB PO PRN ×3 (04:15→23:22)
[2017-07-25] MEDS: Heparin VIAL(*) 5000 UNITS/ML VIAL (FIVE THOUSAND) SUBCUT SCH ×3 (05:51→21:52)
[2017-07-25 07:02] LABS: BUN/Creatinine Ratio 15.7 (8-20); EGFR African American 29.2 (>60); EGFR Non-African American 22.7 (>60); Potassium 4.6 mmol/L (3.5-5.0)
[2017-07-25] MEDS: Insulin LISPRO* 1 UNITS UNIT SUBCUT SCH ×4 (09:02→21:50)
[2017-07-25] MEDS: Insulin GLARGINE(*) 1 UNITS UNIT SUBCUT SCH (09:02)
[2017-07-25] MEDS: Mometasone/Formoter 100/5 MDI INH SCH ×2 (09:03→21:49)
[2017-07-25] MEDS: Carvedilol TAB* 3.125 MG PO SCH (09:04)
[2017-07-25] MEDS: Aspirin EC Low Dose* 81 MG TAB.EC PO SCH (09:05)
[2017-07-25] MEDS: Clopidogrel TAB* 75 MG PO SCH (09:05)
[2017-07-25] MEDS: Magnesium Oxide TAB* 400 MG PO SCH (09:05)
[2017-07-25] MEDS: Tiotropium CAP.INH* CAP.INH/18 MCG (USE ORDER SET !) INH SCH (09:06)
[2017-07-25] MEDS: Enalapril TAB* 5 MG PO SCH (12:19)
[2017-07-25] MEDS ORDERED: NS 0.9% 1000 ML* 1,000 ML IV SCH (12:38)
--- NOTE | 2017-07-25 13:31 | CONS ---
CONSULTATION REPORT: DATE OF CONSULT: 07/25/17 HISTORY AND HOSPITAL COURSE: Michelle has been here a couple of days now for some borderline septic symptoms, pain in her left leg, actually hind foot stump , which is chronically infected, and some fluid gain and shortness of breath. She has been diuresing in the hospital and seems to be breathing better, but the left hind foot stump is still bothering her a good deal, painful, and swollen. Michelle and I had a 20-minute discussion about options for her. It does not seem like she is really able to create a stable regimen with this left hind foot amp. She has had trouble fitting prosthetics and now appears to have some chronic although recurrent swelling and drainage. She is agreeable at this point to have a transtibial amputation, which will be scheduled for tomorrow. I do believe that this will help her metabolic condition as well as provide her more stable amputation level for her. [id number]/CPS #: [id number] ABNER
[2017-07-25] MEDS: Ciprofloxacin 400MG IVPREMIX(* 400 MG/200 ML BAG IVPB SCH (14:04)
[2017-07-25] MEDS ORDERED: Magnesium Hydroxide LIQ* 30 ML UDC PO ONE (16:26)
--- NOTE | 2017-07-25 16:32 | PN ---
Subjective Date of Service: 07/25/17 Interval History: Pain control OK with oxycodone 10 mg po. No new c/o. Family History: Findings - The patient is adopted. Social History: Findings - Last smoked about 2 weeks ago. No alcohol abuse. Lives with her who is her SDM. Past Medical History: Findings - CAD s/p CABG, pacer. L Pirogoff amputation. Appy, tonsil, shadia, CEA, lami. DM with neuropathy and gastroparesis. COPD on home O2. Restless legs, Objective Active Medications: Albuterol/Ipratropium (Duoneb (Albuterol 2.5 Mg/Ipratropium 0.5 Mg)) 1 neb INH TID PRN PRN Reason: SHORTNESS OF BREATH Alteplase, Recombinant (Cathflo Activase*) 2 mg IV Q2H PRN PRN Reason: occluded port Aspirin (Aspirin Ec Low Dose*) 81 mg PO DAILY [facility] Last Admin: 07/25/17 09:05 Dose: 81 mg Atorvastatin Calcium (Lipitor*) 20 mg PO BEDTIME [facility] Last Admin: 07/24/17 20:20 Dose: 20 mg Carvedilol (Coreg Tab*) 1.5625 mg PO QAM [facility] Last Admin: 07/25/17 09:04 Dose: 1.5625 mg Clopidogrel Bisulfate (Plavix Tab*) 75 mg PO DAILY [facility] Last Admin: 07/25/17 09:05 Dose: 75 mg Dextrose (D50w Syringe 50 Ml*) 12.5 gm IV PUSH .FOR FS < 60 - SS PRN PRN Reason: FS < 60 Enalapril Maleate (Vasotec Tab*) 5 mg PO DAILY@1200 [facility] Last Admin: 07/25/17 12:19 Dose: 5 mg Gabapentin (Neurontin Cap(*)) 1,200 mg PO BEDTIME [facility] Last Admin: 07/24/17 20:20 Dose: 1,200 mg Heparin Sodium (Porcine) (Heparin Vial(*)) 5,000 units SUBCUT Q8HR [facility] Last Admin: 07/25/17 13:35 Dose: 5,000 units Heparin Sodium (Porcine) (Heparin Flush Port (Ivad)) 5 ml FLUSH DAILY [facility] PRN Reason: Protocol Last Admin: 07/25/17 09:04 Dose: Not Given Linezolid (Zyvox 600 Mg Ivpremix(*)) 600 mg in 300 mls @ 300 mls/hr IVPB 0400, 1600 [facility] Last Admin: 07/25/17 15:33 Dose: 300 mls/hr Ciprofloxacin/Dextrose (Cipro 400 Mg Ivpremix(*)) 400 mg in 200 mls @ 200 mls/ hr IVPB Q24H [facility] Last Admin: 07/25/17 14:04 Dose: 200 mls/hr Sodium Chloride (Ns 0.9% 1000 Ml*) 1,000 mls @ 50 mls/hr IV PER RATE [facility] Last Admin: 07/25/17 13:34 Dose: 50 mls/hr Insulin Glargine (Lantus(*)) 30 units SUBCUT DAILY [facility] Last Admin: 07/25/17 09:02 Dose: 30 units Insulin Human Lispro (Humalog*) 0 units SUBCUT ACHS [facility] PRN Reason: Protocol Last Admin: 07/25/17 12:26 Dose: 1 units Magnesium Oxide (Magox 400 Tab*) 400 mg PO DAILY [facility] Last Admin: 07/25/17 09:05 Dose: 400 mg Metoclopramide HCl (Reglan Tab*) 5 mg PO AC PRN PRN Reason: NAUSEA Mometasone Furoate/Formoterol Fumar (Dulera 100/5 Mdi*) 1 puff INH BID [facility] Last Admin: 07/25/17 09:03 Dose: 1 puff Morphine Sulfate (Morphine Inj (Syringe)*) 4 mg IV Q6H PRN PRN Reason: PAIN Last Admin: 07/23/17 05:21 Dose: 4 mg Nitroglycerin (Nitroglycerin Tab 0.4 Mg*) 0.4 mg SL Q5M PRN PRN Reason: PAIN - CHEST Ondansetron HCl (Zofran Inj*) 4 mg IV Q4H PRN PRN Reason: NAUSEA Last Admin: 07/23/17 02:32 Dose: 4 mg Oxycodone HCl (Roxycodone Tab*) 5 mg PO Q4H PRN PRN Reason: PAIN - MODERATE Last Admin: 07/25/17 04:15 Dose: 5 mg Oxycodone HCl (Roxycodone Tab*) 10 mg PO Q4H PRN PRN Reason: PAIN - SEVERE Last Admin: 07/24/17 20:30 Dose: 10 mg Pramipexole Dihydrochloride (Mirapex Tab*) 5 mg PO BEDTIME [facility] Last Admin: 07/24/17 20:21 Dose: 5 mg Tiotropium [place] (Spiriva Cap.Inh*) 1 cap INH DAILY [facility] Last Admin: 07/25/17 09:06 Dose: 1 cap Vital Signs 07/24/17 07/24/17 07/24/17 17:50 19:38 19:54 Temperature 98.0 F Pulse Rate 72 Respiratory 16 20 16 Rate Blood Pressure 120/66 (mmHg) O2 Sat by Pulse 95 Oximetry 07/24/17 07/24/17 07/24/17 20:00 20:20 20:30 Temperature Pulse Rate Respiratory 16 16 16 Rate Blood Pressure (mmHg) O2 Sat by Pulse Oximetry 07/24/17 07/24/17 07/25/17 22:20 22:30 00:08 Temperature 97.9 F Pulse Rate 74 Respiratory 17 16 16 Rate Blood Pressure 129/69 (mmHg) O2 Sat by Pulse 93 Oximetry 07/25/17 07/25/17 07/25/17 03:30 04:15 06:15 Temperature 98.0 F Pulse Rate 74 Respiratory 18 17 16 Rate Blood Pressure 130/67 (mmHg) O2 Sat by Pulse 99 Oximetry 07/25/17 07/25/17 07/25/17 07:32 08:00 11:52 Temperature 98.2 F 98.2 F Pulse Rate 79 78 Respiratory 16 16 16 Rate Blood Pressure 141/71 129/73 (mmHg) O2 Sat by Pulse 97 95 Oximetry 07/25/17 15:26 Temperature 98.3 F Pulse Rate 78 Respiratory 20 Rate Blood Pressure 140/73 (mmHg) O2 Sat by Pulse 100 Oximetry Oxygen Devices in Use Now: Nasal Cannula Appearance: Alert, partly up in bed. In fair spirits, but states "I'm scared' about the surgery 07/26. Eyes: No Scleral Icterus Extremities: No Edema, No Clubbing, Cyanosis, - - L Pirogoff amputation. Skin intact. Skin: No Rash or Ulcers, No Nodules or Sclerosis, - Neurological: Alert and Oriented x 3, NL Sensation Result Diagrams: 07/22/17 17:09 07/25/17 06:47 Additional Lab and Data: Lab Results 10/12/17 10/12/17 10/12/17 Range/Units 17:09 17:09 17:09 WBC 9.0 (3.5-10.8) 10^3/ul RBC 2.93 L (4.0-5.4) 10^6/ul Hgb 8.7 L (12.0-16.0) g/dl Hct 27 L (35-47) % MCV 91 (80-97) fL MCH 30 (27-31) pg MCHC 32 (31-36) g/dl RDW 19 H (10.5-15) % Plt Count 488 H D (150-450) 10^3/ul MPV 8 (7.4-10.4) um3 Neut % (Auto) 73.7 (38-83) % Lymph % (Auto) 14.2 L (25-47) % [place] % (Auto) 8.1 (1-9) % Eos % (Auto) 3.0 (0-6) % Baso % (Auto) 1.0 (0-2) % Absolute Neuts (auto) 6.6 (1.5-7.7) 10^3/ul Absolute Lymphs (auto) 1.3 (1.0-4.8) 10^3/ul Absolute Monos (auto) 0.7 (0-0.8) 10^3/ul Absolute Eos (auto) 0.3 (0-0.6) 10^3/ul Absolute Basos (auto) 0.1 (0-0.2) 10^3/ul Absolute Nucleated RBC 0.01 10^3/ul Nucleated RBC % 0.1 Sodium 134 (133-145) mmol/L Potassium 3.4 L (3.5-5.0) mmol/L Chloride 94 L (101-111) mmol/L Carbon Dioxide 34 H (22-32) mmol/L Anion Gap 6 (2-11) mmol/L BUN 25 H (6-24) mg/dL Creatinine 1.13 H (0.51-0.95) mg/dL Est GFR ( Amer) 64.1 (>60) Est GFR (Non-Af Amer) 49.8 (>60) BUN/Creatinine Ratio 22.1 H (8-20) Glucose 360 H (70-100) mg/dL Lactic Acid 1.2 (0.5-2.0) mmol/L Calcium 8.3 L (8.6-10.3) mg/dL Total Bilirubin 0.80 (0.2-1.0) mg/dL AST 10 L (13-39) U/L ALT 8 (7-52) U/L Alkaline Phosphatase 147 H (34-104) U/L C-Reactive Protein 14.10 H (< 5.00) mg/L Total Protein 6.1 L (6.4-8.9) g/dL Albumin 3.0 L (3.2-5.2) g/dL Globulin 3.1 (2-4) g/dL Albumin/Globulin Ratio 1.0 (1-3) Assess/Plan/Problems-Billing Assessment: - Patient Problems (1) Diabetic foot infection Current Visit: Yes Status: Acute Code(s): E11.69 - TYPE 2 DIABETES MELLITUS WITH OTHER SPECIFIED COMPLICATION; L08.9 - LOCAL INFECTION OF THE SKIN AND SUBCUTANEOUS TISSUE, UNSP SNOMED Code(s): 829674825 Comment: Continue cipro/linezolid. (2) DVT prophylaxis Current Visit: No Status: Acute Code(s): FKQ5896 - SNOMED Code(s): 360992081 Comment: - SQ heparin. (3) CAD (coronary artery disease) Current Visit: No Status: Chronic Code(s): I25.10 - ATHSCL HEART DISEASE OF [place] CORONARY ARTERY W/O ANG PCTRS SNOMED Code(s): 66563131 Comment: With compensated systolic CHF. Continue ASA, statin, BB, ACEI. Torsemide, KCL, and spironolactone on hold due to LELIA, may need to re-start at some time soon. Mg++ 1.7 07/22, started mag oxide 400 mg daily 07/23. Pt prefers KCL packets to pills. (4) Diabetes mellitus due to underlying condition with diabetic neuropathy, without long-term current use of insulin Current Visit: Yes Status: Acute Code(s): E08.40 - DIABETES DUE TO UNDERLYING CONDITION W DIABETIC NEUROP, UNSP SNOMED Code(s): 4686340 Comment: Also diabetic gastroparesis. Continue home dose Lantus. Lispro by SS. Continue metoclopramide. Reduced dose gabapentin hs. (5) Anemia Current Visit: No Status: Acute Code(s): D64.9 - ANEMIA, UNSPECIFIED SNOMED Code(s): 211050070 Comment: Stable, likely anemia of chronic disease. - BM biopsy done on 04/19/17 showed mildly hypercellular marrow with no evidence of hematologic malignancy. (6) Tobacco abuse Current Visit: No Status: Acute Code(s): Z72.0 - TOBACCO USE SNOMED Code(s ): 123319530 Comment: Pt advised to quit smoking and avoid second hand smoke. chews. (7) CKD (chronic kidney disease) stage 3, GFR 30-59 ml/min Current Visit: No Status: Chronic Priority: Medium Code(s): N18.3 - CHRONIC KIDNEY DISEASE, STAGE 3 (MODERATE) SNOMED Code(s): 127954917 Comment: LELIA since admission. Est GFR 22.7 07/25/17. BMP 07/26. Mckeon catheter and IV fluids have helped somewhat. Amputation of infected foot may further improve her LELIA. (8) HTN (hypertension) Current Visit: No Status: Chronic Onset Date: 06/23/14 Code(s): I10 - ESSENTIAL (PRIMARY) HYPERTENSION SNOMED Code(s): 31516393 Comment: Her BP meds same as her cardiac meds. (9) COPD (chronic obstructive pulmonary disease) Current Visit: No Status: Chronic Code(s): J44.9 - CHRONIC OBSTRUCTIVE PULMONARY DISEASE, UNSPECIFIED SNOMED Code(s): 21065298 Comment: - Continue Spiriva and Dulera. (10) Urinary retention Current Visit: Yes Status: Acute Code(s): R33.9 - RETENTION OF URINE, UNSPECIFIED SNOMED Code(s): 295633113 Comment: Bladder scan 07/24/17 showed 468 ml. Continue Mckeon.
--- NOTE | 2017-07-25 17:05 | PN ---
Progress Note - Progress Note Date of Service: 07/25/17 Note: Clopidogrel held for 07/26, did get it 07/25 in AM. Lantus reduced to 20 U 9 AM 07/26, can be increased when taking po again. NPO after midnight for surgery 07/26.
[2017-07-25] MEDS: Polyethylene Glycol 3350* 17 GM PACKET PO SCH (21:50)
[2017-07-25] MEDS: Pramipexole TAB* 0.5 MG PO SCH (21:50)
[2017-07-25] MEDS: Gabapentin CAP(*) 400 MG PO SCH (21:50)
[2017-07-25] MEDS: Atorvastatin* 20 MG TAB PO SCH (21:50)
[2017-07-26] MEDS: Morphine INJ* 4 MG/ML 1 ML CARPUJECT IV PRN ×5 (00:21→20:42)
[2017-07-26] MEDS: oxyCODONE TAB* 5 MG TAB PO PRN ×2 (04:02→23:54)
[2017-07-26] MEDS: Linezolid 600 MG IVPREMIX(*) 600 MG/300 ML BAG IVPB SCH ×2 (04:03→17:46)
[2017-07-26] MEDS ORDERED: Levalbuterol 0.63MG/3ML NEB* UNIT OF USE INH ONE (06:00)
[2017-07-26] MEDS ORDERED: Metoclopramide IV* 5 MG/ML 2 ML VIAL IV SLOW PU ONE (06:00)
[2017-07-26] MEDS ORDERED: Sodium Citrate/Citric Acid* 15 ML UDC PO ONE (06:00)
[2017-07-26] MEDS: Heparin VIAL(*) 5000 UNITS/ML VIAL (FIVE THOUSAND) SUBCUT SCH (06:12)
[2017-07-26 06:38] LABS: Hematocrit 24 % (35-47); Hemoglobin 7.9 g/dl (12.0-16.0); Mean Corpuscular HGB Conc 32 g/dl (31-36); Mean Corpuscular Hemoglobin 30 pg (27-31); Mean Corpuscular Volume 92 fL (80-97); Mean Platelet Volume 8 um3 (7.4-10.4); Red Blood Count 2.62 10^6/ul (4.0-5.4); Red Cell Distribution Width 19 % (10.5-15); White Blood Count 5.7 10^3/ul (3.5-10.8)
[2017-07-26 07:27] LABS: Calcium 8.3 mg/dL (8.6-10.3); EGFR African American 39.7 (>60); EGFR Non-African American 30.9 (>60); Potassium 4.7 mmol/L (3.5-5.0)
[2017-07-26] MEDS: Polyethylene Glycol 3350* 17 GM PACKET PO SCH ×2 (08:06→20:31)
[2017-07-26] MEDS: Aspirin EC Low Dose* 81 MG TAB.EC PO SCH (08:52)
[2017-07-26] MEDS: Carvedilol TAB* 3.125 MG PO SCH ×2 (08:53→11:00)
[2017-07-26] MEDS: Magnesium Oxide TAB* 400 MG PO SCH (08:53)
[2017-07-26] MEDS: Insulin GLARGINE(*) 1 UNITS UNIT SUBCUT SCH (08:57)
[2017-07-26] MEDS ORDERED: Insulin GLARGINE(*) 1 UNITS UNIT SUBCUT SCH (09:00)
[2017-07-26] MEDS: Insulin LISPRO* 1 UNITS UNIT SUBCUT SCH ×4 (09:01→21:57)
[2017-07-26] MEDS: Mometasone/Formoter 100/5 MDI INH SCH ×2 (10:51→20:40)
[2017-07-26] MEDS: Tiotropium CAP.INH* CAP.INH/18 MCG (USE ORDER SET !) INH SCH (10:51)
[2017-07-26] MEDS: NS 0.9% 1000 ML* 1,000 ML IV SCH (11:53)
[2017-07-26] MEDS ORDERED: Midazolam* 1 MG/ML 2 ML VIAL (2 MG) ONE ×2 (11:54→14:11)
[2017-07-26] MEDS ORDERED: Propofol* 10 MG/ML 20 ML BTL IV PUSH ONE (11:54)
[2017-07-26] MEDS: Enalapril TAB* 5 MG PO SCH (11:58)
--- NOTE | 2017-07-26 13:04 | PN ---
Progress Note - Progress Note Date of Service: 07/26/17 SOAP: Subjective: CC: foot pain HPI:57 year old diabetic with hx foot amputation now with medial stump pain and swelling. No fever or diarrhea. Pain comes and goes, worse right now. Objective: [] Vital Signs Temp 36.7 C 07/26/17 07:18 Pulse 70 07/26/17 07:18 Resp 16 07/26/17 12:15 BP 126/59 07/26/17 07:18 Pulse Ox 98 07/26/17 07:18 Intake & Output 07/25/17 07/26/17 07/26/17 18:59 06:59 18:59 Intake Total 1517 1308 Output Total 425 950 Balance 1092 358 Weight 163 lb 1.6 oz Intake: IV Fluids 1197 698 ABX - CIPROFLOXACIN 210 NS 987 698 IVPB 610 Linezolid 610 Oral 320 0 Output: Mckeon 425 950 Gen:no distress Neuro:AAOx3 Heart:RRR no murmur Lungs:CTA BL Abd:+BS NTND soft Skin: No rash MSK: L lower leg stump plantar ulcer; no erythema Laboratory Results - last 24 hr 07/25/17 07/25/17 07/26/17 17:17 20:49 06:22 WBC RBC Hgb Hct MCV MCH MCHC RDW Plt Count MPV Neut % (Auto) Lymph % (Auto) [place] % (Auto) Eos % (Auto) Baso % (Auto) Absolute Neuts (auto) Absolute Lymphs (auto) Absolute Monos (auto) Absolute Eos (auto) Absolute Basos (auto) Absolute Nucleated RBC Nucleated RBC % Sodium 133 Potassium 4.7 Chloride 100 L Carbon Dioxide 28 Anion Gap 5 BUN 29 H Creatinine 1.71 H Est GFR ( Amer) 39.7 Est GFR (Non-Af Amer) 30.9 BUN/Creatinine Ratio 17.0 Glucose 174 H POC Glucose (mg/dL) 221 H 186 H Calcium 8.3 L Blood Type Antibody Screen 07/26/17 07/26/17 07/26/17 06:22 06:22 12:32 WBC 5.7 RBC 2.62 L Hgb 7.9 L Hct 24 L MCV 92 MCH 30 MCHC 32 RDW 19 H Plt Count 412 MPV 8 Neut % (Auto) 63.6 Lymph % (Auto) 24.2 L [place] % (Auto) 7.6 Eos % (Auto) 3.8 Baso % (Auto) 0.8 Absolute Neuts (auto) 3.6 Absolute Lymphs (auto) 1.4 Absolute Monos (auto) 0.4 Absolute Eos (auto) 0.2 Absolute Basos (auto) 0 Absolute Nucleated RBC 0.01 Nucleated RBC % 0.1 Sodium Potassium Chloride Carbon Dioxide Anion Gap BUN Creatinine Est GFR ( Amer) Est GFR (Non-Af Amer) BUN/Creatinine Ratio Glucose POC Glucose (mg/dL) 109 H Calcium Blood Type O Positive Antibody Screen Negative Assessment: 1. Left lower hindfoot infection; infective myositis and acute osteomyelitis 2. diabetes with neuropathy 3. CAD Plan: 1. continue linezolid and cipro; plan for BKA today. Will await cultures.
[2017-07-26] MEDS ORDERED: KETAMINE HCL* 50 MG/ML 10 ML VIAL ONE (13:43)
[2017-07-26] MEDS ORDERED: fentaNYL* 50 MCG/ML 2 ML VIAL (100 MCG VIAL) ONE ×2 (13:43→15:35)
[2017-07-26] MEDS ORDERED: Lidocaine 2% PF* 10 ML AMP ONE (14:08)
[2017-07-26] MEDS: Ciprofloxacin 400MG IVPREMIX(* 400 MG/200 ML BAG IVPB SCH (14:36)
[2017-07-26] MEDS ORDERED: oxyCODONE TAB* 5 MG TAB PO PRN (14:45)
[2017-07-26] MEDS ORDERED: HYDROmorphone INJ* 1 MG/ML CARPUJECT SYRINGE IV PRN ×2 (14:45)
[2017-07-26] MEDS: fentaNYL* 50 MCG/ML 2 ML VIAL (100 MCG VIAL) IV PRN ×2 (15:39→15:48)
--- NOTE | 2017-07-26 16:13 | PN ---
Subjective Date of Service: 07/26/17 Interval History: HOSPITALIST PROGRESS NOTE Patient seen and examined at bedside. C/o pain on her left foot stamp. Has some nausea, but no vomiting today. Family History: Unchanged from Admission Social History: Unchanged from Admission Past Medical History: Unchanged from Admission Objective Active Medications: Albuterol/Ipratropium (Duoneb (Albuterol 2.5 Mg/Ipratropium 0.5 Mg)) 1 neb INH TID PRN PRN Reason: SHORTNESS OF BREATH Alteplase, Recombinant (Cathflo Activase*) 2 mg IV Q2H PRN PRN Reason: occluded port Aspirin (Aspirin Ec Low Dose*) 81 mg PO DAILY [facility] Last Admin: 07/26/17 08:52 Dose: Not Given Atorvastatin Calcium (Lipitor*) 20 mg PO BEDTIME [facility] Last Admin: 07/25/17 21:50 Dose: 20 mg Carvedilol (Coreg Tab*) 1.5625 mg PO QAM [facility] Last Admin: 07/26/17 11:00 Dose: 1.5625 mg Dextrose (D50w Syringe 50 Ml*) 12.5 gm IV PUSH .FOR FS < 60 - SS PRN PRN Reason: FS < 60 Enalapril Maleate (Vasotec Tab*) 5 mg PO DAILY@1200 [facility] Last Admin: 07/26/17 11:58 Dose: Not Given Fentanyl Citrate (Fentanyl*) 10 mcg IV Q5M PRN PRN Reason: PAIN - MODERATE Stop: 07/26/17 18:30 Last Admin: 07/26/17 15:48 Dose: 10 mcg Gabapentin (Neurontin Cap(*)) 1,200 mg PO BEDTIME [facility] Last Admin: 07/25/17 21:50 Dose: 1,200 mg Heparin Sodium (Porcine) (Heparin Flush Port (Ivad)) 5 ml FLUSH DAILY [facility] PRN Reason: Protocol Last Admin: 07/26/17 08:06 Dose: Not Given Hydromorphone HCl (Dilaudid Inj*) 0.1 mg IV Q10M PRN PRN Reason: PAIN - SEVERE Stop: 07/26/17 18:30 Hydromorphone HCl (Dilaudid Inj*) 0.2 mg IV Q10M PRN PRN Reason: PAIN - SEVERE Stop: 07/26/17 18:30 Linezolid (Zyvox 600 Mg Ivpremix(*)) 600 mg in 300 mls @ 300 mls/hr IVPB 0400, 1600 [facility] Last Admin: 07/26/17 04:03 Dose: 300 mls/hr Ciprofloxacin/Dextrose (Cipro 400 Mg Ivpremix(*)) 400 mg in 200 mls @ 200 mls/ hr IVPB Q24H [facility] Last Admin: 07/26/17 14:36 Dose: Not Given Sodium Chloride (Ns 0.9% 1000 Ml*) 1,000 mls @ 75 mls/hr IV PER RATE [facility] Last Admin: 07/26/17 11:53 Dose: 75 mls/hr Insulin Glargine (Lantus(*)) 15 units SUBCUT DAILY [facility] Last Admin: 07/26/17 08:57 Dose: 15 units Insulin Human Lispro (Humalog*) 0 units SUBCUT ACHS [facility] PRN Reason: Protocol Last Admin: 07/26/17 12:34 Dose: Not Given Magnesium Oxide (Magox 400 Tab*) 400 mg PO DAILY [facility] Last Admin: 07/26/17 08:53 Dose: Not Given Metoclopramide HCl (Reglan Tab*) 5 mg PO AC PRN PRN Reason: NAUSEA Mometasone Furoate/Formoterol Fumar (Dulera 100/5 Mdi*) 1 puff INH BID [facility] Last Admin: 07/26/17 10:51 Dose: 1 puff Morphine Sulfate (Morphine Inj (Syringe)*) 4 mg IV Q4H PRN PRN Reason: PAIN Last Admin: 07/26/17 12:15 Dose: 4 mg Nitroglycerin (Nitroglycerin Tab 0.4 Mg*) 0.4 mg SL Q5M PRN PRN Reason: PAIN - CHEST Ondansetron HCl (Zofran Inj*) 4 mg IV Q4H PRN PRN Reason: NAUSEA Last Admin: 07/23/17 02:32 Dose: 4 mg Oxycodone HCl (Roxycodone Tab*) 5 mg PO Q4H PRN PRN Reason: PAIN - MODERATE Last Admin: 07/26/17 04:02 Dose: 5 mg Oxycodone HCl (Roxycodone Tab*) 10 mg PO Q4H PRN PRN Reason: PAIN - SEVERE Last Admin: 07/25/17 23:22 Dose: 10 mg Oxycodone HCl (Roxycodone Tab*) 5 mg PO ONCE PRN PRN Reason: PAIN - MODERATE Stop: 07/26/17 18:30 Polyethylene Glycol/Electrolytes (Miralax*) 17 gm PO 0800,2100 [facility] Last Admin: 07/26/17 08:06 Dose: Not Given Pramipexole Dihydrochloride (Mirapex Tab*) 5 mg PO BEDTIME [facility] Last Admin: 07/25/17 21:50 Dose: 5 mg Tiotropium [place] (Spiriva Cap.Inh*) 1 cap INH DAILY [facility] Last Admin: 07/26/17 10:51 Dose: 1 cap Vital Signs 07/26/17 07/26/17 07/26/17 12:15 13:15 15:13 Temperature 97.7 F Pulse Rate 82 Respiratory 16 16 20 Rate Blood Pressure 117/75 (mmHg) O2 Sat by Pulse 99 Oximetry Oxygen Devices in Use Now: Nasal Cannula Appearance: Pleasant middle aged lady sitting up in bed in [facility]. Eyes: No Scleral Icterus Ears/Nose/Mouth/Throat: Mucous Membranes Moist Neck: Trachea Midline Respiratory: Symmetrical Chest Expansion and Respiratory Effort, Clear to Auscultation Cardiovascular: RRR - Normal S1 and S2 Abdominal: NL Sounds; No Tenderness; No Distention Neurological: Alert and Oriented x 3, NL Muscle Strength and Tone Lines/Tubes/Other Access: Clean, Dry and Intact Peripheral IV Nutrition: - - NPO Result Diagrams: 07/26/17 06:22 07/26/17 06:22 Assess/Plan/Problems-Billing Assessment: Mrs. Galarza is a 57yo F with PMH of insulin dependent diabetes, CAD s/p CABG, PVD, CVA, chronic anemia, CKD stage 3, HTN, HLD, left subclavian stenosis s/p stent, left foot osteomyelitis s/p forefoot amputation, who presented to ED with left heel pain and vomiting, found to have worsening of her diabetic foot infection. - Patient Problems (1) Diabetic foot infection Comment: - Plan for trans tibial amputation today. - Continue cipro/linezolid. (2) CAD (coronary artery disease) Comment: - With compensated systolic CHF. - Continue ASA, statin, BB, ACEI. Torsemide, KCL, and spironolactone on hold due to LELIA, may need to re-start soon due to her h/o of CHF. - States she was seen at [facility] and will be in the [facility]/transplant list. (3) Diabetes mellitus due to underlying condition with diabetic neuropathy, without long-term current use of insulin Comment: - She also has diabetic gastroparesis, cause of her recurrent vomiting. - Half dose Lantus today prior to OR and continue Lispro by SS. (4) Tobacco abuse Comment: - Pt advised to quit smoking and avoid second hand smoke. chews tobacco. (5) CKD (chronic kidney disease) stage 3, GFR 30-59 ml/min Comment: - LELIA since admission now somewhat improved. - Continue to monitor. (6) Urinary retention Comment: - Bladder scan 07/24/17 showed 468 ml - likely neurogenic bladder secondary to DM. - Continue Mckeon. (7) DVT prophylaxis Comment: - SQ heparin. (8) Full code status Status and Disposition: Patient would benefit of [facility] correctional counselor/case manager as outpatient, as she has a complex medical history, with significant non-compliance (especially with diet) and difficult keeping up her appointments due to frequent admissions. This is her 4th admission since June.
[2017-07-26] MEDS: Gabapentin CAP(*) 400 MG PO SCH (20:30)
[2017-07-26] MEDS: Atorvastatin* 20 MG TAB PO SCH (20:30)
[2017-07-26] MEDS: Pramipexole TAB* 0.5 MG PO SCH (20:42)
[2017-07-27] MEDS: Morphine INJ* 4 MG/ML 1 ML CARPUJECT IV PRN ×2 (02:08→06:21)
[2017-07-27] MEDS: Linezolid 600 MG IVPREMIX(*) 600 MG/300 ML BAG IVPB SCH ×2 (03:40→17:20)
[2017-07-27] MEDS: NS 0.9% 1000 ML* 1,000 ML IV SCH (04:38)
[2017-07-27] MEDS: oxyCODONE TAB* 5 MG TAB PO PRN (05:46)
[2017-07-27 06:52] LABS: Hematocrit 25 % (35-47); Hemoglobin 7.9 g/dl (12.0-16.0); Mean Corpuscular HGB Conc 32 g/dl (31-36); Mean Corpuscular Hemoglobin 29 pg (27-31); Mean Corpuscular Volume 93 fL (80-97); Mean Platelet Volume 7 um3 (7.4-10.4); Red Cell Distribution Width 19 % (10.5-15); White Blood Count 6.6 10^3/ul (3.5-10.8)
[2017-07-27 07:11] LABS: Calcium 8.5 mg/dL (8.6-10.3); EGFR Non-African American 44.3 (>60); Potassium 4.7 mmol/L (3.5-5.0)
[2017-07-27] MEDS: Insulin LISPRO* 1 UNITS UNIT SUBCUT SCH ×4 (07:44→20:09)
--- NOTE | 2017-07-27 08:15 | PN ---
Progress Note - Progress Note Date of Service: 07/27/17 SOAP: Subjective: resting comfortably with no complaints Objective: Vital Signs Temp Pulse Resp BP Pulse Ox 98.6 F 73 16 139/72 100 07/27/17 03:37 07/27/17 03:37 07/27/17 07:21 07/27/17 03:37 07/27/17 03:37 Laboratory Last Values WBC 6.6 10^3/ul (3.5-10.8) 07/27/17 06:34 RBC 2.70 10^6/ul (4.0-5.4) L 07/27/17 06:34 Hgb 7.9 g/dl (12.0-16.0) L 07/27/17 06:34 Hct 25 % (35-47) L 07/27/17 06:34 MCV 93 fL (80-97) 07/27/17 06:34 MCH 29 pg (27-31) 07/27/17 06:34 MCHC 32 g/dl (31-36) 07/27/17 06:34 RDW 19 % (10.5-15) H 07/27/17 06:34 Plt Count 363 10^3/ul (150-450) 07/27/17 06:34 MPV 7 um3 (7.4-10.4) L 07/27/17 06:34 Neut % (Auto) 77.3 % (38-83) 07/27/17 06:34 Lymph % (Auto) 11.0 % (25-47) L 07/27/17 06:34 [place] % (Auto) 7.8 % (1-9) 07/27/17 06:34 Eos % (Auto) 3.4 % (0-6) 07/27/17 06:34 Baso % (Auto) 0.5 % (0-2) 07/27/17 06:34 Absolute Neuts (auto) 5.1 10^3/ul (1.5-7.7) 07/27/17 06:34 Absolute Lymphs (auto) 0.7 10^3/ul (1.0-4.8) L 07/27/17 06:34 Absolute Monos (auto) 0.5 10^3/ul (0-0.8) 07/27/17 06:34 Absolute Eos (auto) 0.2 10^3/ul (0-0.6) 07/27/17 06:34 Absolute Basos (auto) 0 10^3/ul (0-0.2) 07/27/17 06:34 Absolute Nucleated RBC 0 10^3/ul 07/27/17 06:34 Nucleated RBC % 0 07/27/17 06:34 Sodium 133 mmol/L (133-145) 07/27/17 06:34 Potassium 4.7 mmol/L (3.5-5.0) 07/27/17 06:34 Chloride 102 mmol/L (101-111) 07/27/17 06:34 Carbon Dioxide 28 mmol/L (22-32) 07/27/17 06:34 Anion Gap 3 mmol/L (2-11) 07/27/17 06:34 BUN 25 mg/dL (6-24) H 07/27/17 06:34 Creatinine 1.25 mg/dL (0.51-0.95) H 07/27/17 06:34 Est GFR ( Amer) 57.0 (>60) 07/27/17 06:34 Est GFR (Non-Af Amer) 44.3 (>60) 07/27/17 06:34 BUN/Creatinine Ratio 20.0 (8-20) 07/27/17 06:34 Glucose 83 mg/dL (70-100) 07/27/17 06:34 POC Glucose (mg/dL) 78 mg/dL (70-100) 07/26/17 20:37 Lactic Acid 1.2 mmol/L (0.5-2.0) 07/22/17 17:09 Calcium 8.5 mg/dL (8.6-10.3) L 07/27/17 06:34 Magnesium 1.7 mg/dL (1.9-2.7) L 07/22/17 17:09 Total Bilirubin 0.80 mg/dL (0.2-1.0) 07/22/17 17:09 AST 10 U/L (13-39) L 07/22/17 17:09 ALT 8 U/L (7-52) 07/22/17 17:09 Alkaline Phosphatase 147 U/L (34-104) H 07/22/17 17:09 C-Reactive Protein 14.10 mg/L (< 5.00) H 07/22/17 17:09 Total Protein 6.1 g/dL (6.4-8.9) L 07/22/17 17:09 Albumin 3.0 g/dL (3.2-5.2) L 07/22/17 17:09 Globulin 3.1 g/dL (2-4) 07/22/17 17:09 Albumin/Globulin Ratio 1.0 (1-3) 07/22/17 17:09 Urine Color Yellow 07/24/17 15:50 Urine Appearance Cloudy 07/24/17 15:50 Urine pH 5.0 (5-9) 07/24/17 15:50 Ur Specific [place] 1.009 (1.010-1.030) L 07/24/17 15:50 Urine Protein 2+(100 mg/dl) (Negative) H 07/24/17 15:50 Urine Ketones Negative (Negative) 07/24/17 15:50 Urine Blood Negative (Negative) 07/24/17 15:50 Urine Nitrate Negative (Negative) 07/24/17 15:50 Urine Bilirubin Negative (Negative) 07/24/17 15:50 Urine Urobilinogen Negative (Negative) 07/24/17 15:50 Ur Leukocyte Esterase Negative (Negative) 07/24/17 15:50 Urine WBC (Auto) Trace(0-5/hpf) (Absent) 07/24/17 15:50 Urine RBC (Auto) 2+(6-10/hpf) (Absent) H 07/24/17 15:50 Ur Squamous Epith Cells Present (Absent) H 07/24/17 15:50 Amorphous Crystals Present (Absent) H 07/24/17 15:50 Urine Bacteria Absent (Absent) 07/24/17 15:50 Hyaline Casts Present (Absent) H 07/24/17 15:50 Urine Glucose 1+(50 mg/dl) (Negative) H 07/24/17 15:50 Blood Type O Positive 07/26/17 06:22 Antibody Screen Negative 07/26/17 06:22 incision: c/d/i; splint intact PE: NVI Assessment: s/p trans tibial amputation; POD#1 Plan: 1) Continue IV Abx 2) PT/OT 3) Heparin/ASA//SCD's for DVT prophylaxis 4) will continue to follow
[2017-07-27] MEDS: Clopidogrel TAB* 75 MG PO SCH (09:17)
[2017-07-27] MEDS: Carvedilol TAB* 3.125 MG PO SCH (09:17)
[2017-07-27] MEDS: Magnesium Oxide TAB* 400 MG PO SCH (09:17)
[2017-07-27] MEDS: Aspirin EC Low Dose* 81 MG TAB.EC PO SCH (09:17)
[2017-07-27] MEDS: Polyethylene Glycol 3350* 17 GM PACKET PO SCH ×2 (09:17→20:11)
[2017-07-27] MEDS: fentaNYL* 50 MCG/ML 2 ML VIAL (100 MCG VIAL) IV SLOW PU PRN ×4 (09:19→19:58)
[2017-07-27] MEDS: Mometasone/Formoter 100/5 MDI INH SCH ×2 (09:20→20:12)
[2017-07-27] MEDS: Tiotropium CAP.INH* CAP.INH/18 MCG (USE ORDER SET !) INH SCH (09:20)
[2017-07-27] MEDS: Insulin GLARGINE(*) 1 UNITS UNIT SUBCUT SCH (09:41)
--- NOTE | 2017-07-27 10:31 | OP ---
OPERATIVE REPORT: DATE OF OPERATION: 07/26/17 DATE OF : 62 ATTENDING SURGEON: Tom Hess MD PRE-OP DIAGNOSIS: Chronic osteomyelitis left heel pad, previous Pirogoff amputation. POST-OP DIAGNOSIS: Chronic osteomyelitis left heel pad, previous Pirogoff amputation. OPERATIVE PROCEDURE: Left transtibial amputation. DESCRIPTION OF PROCEDURE: The patient was taken to the operating room where a thigh tourniquet infl ated. I made a transverse fishmouth incision at the proximal to mid third of the left tibia leaving slightly longer than posterior flap. We dissected proximally around the tibia, transecting a handb readth below the tubercle. We bevelled the anterior corner of the tibia with the large sagittal saw as well as the fibula 1 cm proximal. With it flexing through the osteotomy, we began to expose the posterior flap which was then divided with a 10 blade. Tourniquet was dropped and we obtained local hemostasis with suture ligatures. We irrigated thoroughly, sending local cultures. We closed the posterior flap to the anterior flap using #1 Vicryl sutures for the fascia, 2-0 Vicryl for the subcu and interrupted Prolene sutures for the skin and a compression dressing and plaster splint applied. [id number]/[facility] #: [id number]
[2017-07-27] MEDS: Enalapril TAB* 5 MG PO SCH (12:34)
[2017-07-27] MEDS ORDERED: fentaNYL PATCH 25 MCG/HR TRANSDERM SCH (13:00)
--- NOTE | 2017-07-27 13:11 | PN ---
Subjective Date of Service: 07/27/17 Interval History: HOSPITALIST PROGRESS NOTE Patient seen and examined at bedside. She c/o severe 10/10 pain on her amputation site. Writhing in pain in bed. C/o nausea. Family History: Unchanged from Admission Social History: Unchanged from Admission Past Medical History: Unchanged from Admission Objective Active Medications: Albuterol/Ipratropium (Duoneb (Albuterol 2.5 Mg/Ipratropium 0.5 Mg)) 1 neb INH TID PRN PRN Reason: SHORTNESS OF BREATH Alteplase, Recombinant (Cathflo Activase*) 2 mg IV Q2H PRN PRN Reason: occluded port Aspirin (Aspirin Ec Low Dose*) 81 mg PO DAILY [facility] Last Admin: 07/27/17 09:17 Dose: 81 mg Atorvastatin Calcium (Lipitor*) 20 mg PO BEDTIME [facility] Last Admin: 07/26/17 20:30 Dose: 20 mg Carvedilol (Coreg Tab*) 1.5625 mg PO QAM [facility] Last Admin: 07/27/17 09:17 Dose: 1.5625 mg Clopidogrel Bisulfate (Plavix Tab*) 75 mg PO DAILY [facility] Last Admin: 07/27/17 09:17 Dose: 75 mg Dextrose (D50w Syringe 50 Ml*) 12.5 gm IV PUSH .FOR FS < 60 - SS PRN PRN Reason: FS < 60 Enalapril Maleate (Vasotec Tab*) 5 mg PO DAILY@1200 [facility] Last Admin: 07/27/17 12:34 Dose: 5 mg Fentanyl (Duragesic Patch 25 Mcg/Hr*) 25 mcg TRANSDERM Q72H [facility] Last Admin: 07/27/17 12:32 Dose: 25 mcg Fentanyl Citrate (Fentanyl*) 25 mcg IV SLOW PU Q2H PRN PRN Reason: SEVERE PAIN Last Admin: 07/27/17 11:27 Dose: 25 mcg Gabapentin (Neurontin Cap(*)) 1,200 mg PO BEDTIME [facility] Last Admin: 07/26/17 20:30 Dose: 1,200 mg Heparin Sodium (Porcine) (Heparin Flush Port (Ivad)) 5 ml FLUSH DAILY [facility] PRN Reason: Protocol Last Admin: 07/27/17 09:32 Dose: 5 ml Heparin Sodium (Porcine) (Heparin Vial(*)) 5,000 units SUBCUT Q8HR [facility] Linezolid (Zyvox 600 Mg Ivpremix(*)) 600 mg in 300 mls @ 300 mls/hr IVPB 0400, 1600 [facility] Last Admin: 07/27/17 03:40 Dose: 300 mls/hr Ciprofloxacin/Dextrose (Cipro 400 Mg Ivpremix(*)) 400 mg in 200 mls @ 200 mls/ hr IVPB Q24H [facility] Last Admin: 07/26/17 14:36 Dose: Not Given Insulin Glargine (Lantus(*)) 15 units SUBCUT DAILY [facility] Last Admin: 07/27/17 09:41 Dose: 15 units Insulin Human Lispro (Humalog*) 0 units SUBCUT ACHS [facility] PRN Reason: Protocol Last Admin: 07/27/17 11:41 Dose: Not Given Magnesium Oxide (Magox 400 Tab*) 400 mg PO DAILY [facility] Last Admin: 07/27/17 09:17 Dose: 400 mg Metoclopramide HCl (Reglan Tab*) 5 mg PO AC PRN PRN Reason: NAUSEA Mometasone Furoate/Formoterol Fumar (Dulera 100/5 Mdi*) 1 puff INH BID [facility] Last Admin: 07/27/17 09:20 Dose: 1 puff Nitroglycerin (Nitroglycerin Tab 0.4 Mg*) 0.4 mg SL Q5M PRN PRN Reason: PAIN - CHEST Ondansetron HCl (Zofran Inj*) 4 mg IV Q4H PRN PRN Reason: NAUSEA Last Admin: 07/23/17 02:32 Dose: 4 mg Pharmacy Profile Note (Fentanyl Patch Check Q Shift) 1 note N/A 0700,1900 [facility] Polyethylene Glycol/Electrolytes (Miralax*) 17 gm PO 0800,2100 [facility] Last Admin: 07/27/17 09:17 Dose: Not Given Pramipexole Dihydrochloride (Mirapex Tab*) 5 mg PO BEDTIME [facility] Last Admin: 07/26/17 20:42 Dose: 5 mg Tiotropium Walker (Spiriva Cap.Inh*) 1 cap INH DAILY [facility] Last Admin: 07/27/17 09:20 Dose: 1 cap Vital Signs 07/27/17 07/27/17 07/27/17 11:27 11:28 12:27 Temperature 99.0 F Pulse Rate 79 Respiratory 16 16 16 Rate Blood Pressure 128/74 (mmHg) O2 Sat by Pulse 100 Oximetry Oxygen Devices in Use Now: Nasal Cannula Appearance: Middle aged lady lying in bed in distress secondary to pain. Eyes: No Scleral Icterus Ears/Nose/Mouth/Throat: Mucous Membranes Moist Neck: Trachea Midline Respiratory: Symmetrical Chest Expansion and Respiratory Effort, Clear to Auscultation Cardiovascular: RRR - Normal S1 and S2 Abdominal: NL Sounds; No Tenderness; No Distention Extremities: - - CDI to LLE s/p BKA Neurological: Alert and Oriented x 3, NL Muscle Strength and Tone Lines/Tubes/Other Access: Clean, Dry and Intact Peripheral IV Nutrition: Taking PO's Result Diagrams: 07/27/17 06:34 07/27/17 06:34 Assess/Plan/Problems-Billing Assessment: Mrs. Galarza is a 57yo F with PMH of insulin dependent diabetes, CAD s/p CABG, PVD, CVA, chronic anemia, CKD stage 3, HTN, HLD, left subclavian stenosis s/p stent, left foot osteomyelitis s/p forefoot amputation, who presented to ED with left heel pain and vomiting, found to have worsening of her diabetic foot infection. - Patient Problems (1) Diabetic foot infection Comment: - s/p left trans tibial amputation 07/26/17. - Continue cipro/linezolid. - Major issue at this point is pain control - will try Fentanyl. (2) CAD (coronary artery disease) Comment: - With compensated systolic CHF. - Continue ASA, statin, BB, ACEI. Torsemide, KCL, and spironolactone on hold due to LELIA, may need to re-start soon due to her h/o of CHF. - States she was seen at [facility] and will be in the LVAD/transplant list. (3) Diabetes mellitus due to underlying condition with diabetic neuropathy, without long-term current use of insulin Comment: - She also has diabetic gastroparesis, cause of her recurrent vomiting. - Continue lower dose Lantus today as her PO intake is still poor. (4) Tobacco abuse Comment: - Pt advised to quit smoking and avoid second hand smoke. chews tobacco. (5) CKD (chronic kidney disease) stage 3, GFR 30-59 ml/min Comment: - LELIA since admission now somewhat improved. - Continue to monitor. (6) Urinary retention Comment: - Bladder scan 07/24/17 showed 468 ml - likely neurogenic bladder secondary to DM. - Continue Mckeon. (7) DVT prophylaxis Comment: - SQ heparin. (8) Full code status Status and Disposition: Patient would benefit of CAP family caseworker as outpatient, as she has a complex medical history, with significant non-compliance (especially with diet) and difficult keeping up her appointments due to frequent admissions. This is her 4th admission since June.
[2017-07-27] MEDS: Ciprofloxacin 400MG IVPREMIX(* 400 MG/200 ML BAG IVPB SCH (14:51)
[2017-07-27] MEDS: Heparin VIAL(*) 5000 UNITS/ML VIAL (FIVE THOUSAND) SUBCUT SCH ×2 (15:06→21:59)
[2017-07-27] MEDS ORDERED: fentaNYL Patch Check Q Shift 1 NOTE SCH (19:00)
[2017-07-27] MEDS: Pramipexole TAB* 0.5 MG PO SCH (20:10)
[2017-07-27] MEDS: Atorvastatin* 20 MG TAB PO SCH (20:10)
[2017-07-27] MEDS: Gabapentin CAP(*) 400 MG PO SCH (20:11)
[2017-07-27] MEDS ORDERED: LORazepam INJ* 2 MG/ML 1 ML VIAL IV PUSH ONE (21:49)
[2017-07-27] MEDS ORDERED: HYDROmorphone INJ* 1 MG/ML CARPUJECT SYRINGE IV SLOW PU PRN (21:49)
[2017-07-27] MEDS ORDERED: LORazepam INJ* 2 MG/ML 1 ML VIAL ONE (21:54)
[2017-07-27] MEDS ORDERED: HYDROmorphone INJ* 2 MG/ML CARPUJECT SYRINGE ONE (21:54)
[2017-07-27] MEDS ORDERED: Cyclobenzaprine TAB* 10 MG PO PRN (22:26)
[2017-07-27] MEDS ORDERED: Cyclobenzaprine TAB* 10 MG ONE (22:36)
--- NOTE | 2017-07-27 22:45 | PN ---
PROGRESS NOTE: DATE OF SERVICE: 07/27/17 HISTORY: Michelle is 1 day postop left transtibial amputation. She is weeping, complaining of severe pain. Her splint is intact. Vital signs are stable. We discussed her situation, the findings at surgery, prognosis, and the fact that she is elected to be transferred to [facility]. All of these were encouraging findings and status for Michelle and she seemed to feel better after a discussion. Some of her pain level appears to be anxiety related and perhaps that might help if we address that directly with medication. At any rate, our surgical plan for her is to change the dressing within a week. We are in agreement with the [facility] transfer. I think she is an excellent candidate for this. 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 [id number]/[facility] #: [id number] ABNER
[2017-07-28] MEDS: HYDROmorphone INJ* 2 MG/ML CARPUJECT SYRINGE IV SLOW PU PRN ×3 (00:09→08:39)
[2017-07-28] MEDS: Linezolid 600 MG IVPREMIX(*) 600 MG/300 ML BAG IVPB SCH (04:02)
[2017-07-28] MEDS: Heparin VIAL(*) 5000 UNITS/ML VIAL (FIVE THOUSAND) SUBCUT SCH (06:04)
[2017-07-28 06:42] LABS: Hematocrit 21 % (35-47); Mean Corpuscular HGB Conc 31 g/dl (31-36); Mean Corpuscular Hemoglobin 30 pg (27-31); Mean Corpuscular Volume 94 fL (80-97); Mean Platelet Volume 8 um3 (7.4-10.4); Red Cell Distribution Width 19 % (10.5-15); White Blood Count 7.2 10^3/ul (3.5-10.8)
[2017-07-28 06:54] LABS: Comments Flag Yes
[2017-07-28 06:55] LABS: Hemoglobin 6.5 g/dl (12.0-16.0)
[2017-07-28 07:47] VITALS: BP 152/75
[2017-07-28 07:56] LABS: Hematocrit 22 % (35-47); Hemoglobin 7.3 g/dl (12.0-16.0); Mean Corpuscular HGB Conc 33 g/dl (31-36); Mean Corpuscular Hemoglobin 30 pg (27-31); Mean Corpuscular Volume 92 fL (80-97); Mean Platelet Volume 8 um3 (7.4-10.4); Red Blood Count 2.44 10^6/ul (4.0-5.4); Red Cell Distribution Width 19 % (10.5-15); White Blood Count 6.6 10^3/ul (3.5-10.8)
[2017-07-28 08:15] LABS: BUN/Creatinine Ratio 19.6 (8-20); Calcium 8.5 mg/dL (8.6-10.3); EGFR African American 64.7 (>60); EGFR Non-African American 50.3 (>60); Potassium 4.8 mmol/L (3.5-5.0)
[2017-07-28] MEDS ORDERED: oxyCODONE/Acetamin 5/325 MG* TAB PO PRN (08:32)
[2017-07-28] MEDS ORDERED: oxyCODONE/Acetamin 5/325 MG* TAB ONE (08:36)
[2017-07-28] MEDS: Mometasone/Formoter 100/5 MDI INH SCH (08:38)
[2017-07-28] MEDS: Polyethylene Glycol 3350* 17 GM PACKET PO SCH (08:40)
[2017-07-28] MEDS: Carvedilol TAB* 3.125 MG PO SCH (08:41)
[2017-07-28] MEDS: Clopidogrel TAB* 75 MG PO SCH (08:41)
[2017-07-28] MEDS: Insulin GLARGINE(*) 1 UNITS UNIT SUBCUT SCH (08:41)
[2017-07-28] MEDS: Aspirin EC Low Dose* 81 MG TAB.EC PO SCH (08:41)
[2017-07-28] MEDS: Insulin LISPRO* 1 UNITS UNIT SUBCUT SCH (08:41)
[2017-07-28] MEDS: Tiotropium CAP.INH* CAP.INH/18 MCG (USE ORDER SET !) INH SCH (08:42)
[2017-07-28] MEDS: Magnesium Oxide TAB* 400 MG PO SCH (08:42)
--- NOTE | 2017-07-29 04:38 | DS ---
CC: Dr. Valdes; Dr. Hess; Dr. Damon; Dr. Reddy DISCHARGE SUMMARY: DATE OF ADMISSION: 07/22/17 DATE OF DISCHARGE: 07/28/17 PRIMARY CARE PROVIDER: Dr. Valdes. ORTHOPEDIST: Dr. Hess. INFECTIOUS DISEASE SPECIALIST: Dr. Damon. DISCHARGE DIAGNOSES: 1. Left diabetic foot infection, status post left transtibial amputation. 2. Anemia of chronic disease. SECONDARY DIAGNOSES: 1. Insulin dependent diabetes. 2. CAD, status post CABG. 3. Peripheral vascular disease. 4. CVA. 5. Chronic anemia. 6. CKD stage III. 7. Hypertension. 8. Left subclavian stenosis, status post stent. 9. History of left foot osteomyelitis, status post forefoot amputation. 10. Systolic congestive heart failure with ejection fraction 35 to 40%. MEDICATION LIST: 1. Spiriva one capsule inhaled daily. 2. Coreg 1.5 mg p.o. q.a.m., 4.6 mg p.o. at bedtime. 3. Atorvastatin 20 mg p.o. at bedtime. 4. Nitroglycerin 0.4 mg sublingual q.5minutes p.r.n. chest pain, maximum 3 doses. 5. Dulera 100/5 one puff inhaled b.i.d. 6. Repatha 140 mg subcutaneous q.14 days. 7. EpiPen 0.3 mg intramuscular as needed for anaphylaxis. 8. Torsemide 40 mg p.o. daily. 9. Pramipexole 5 mg p.o. at bedtime. 10. Metoclopramide 5 mg p.o. t.i.d. with meals. 11. Glucagon 1 mg IM once as needed for hyperglycemia. 12. Lispro sliding scale. 13. Clopidogrel 75 mg p.o. daily. 14. Gabapentin 1800 mg p.o. at bedtime. 15. Aspirin 81 mg p.o. daily. 16. Metolazone 5 mg p.o. daily as needed 30 minutes prior to torsemide for weight gain greater than 2 pounds. 17. MiraLAX 17 g p.o. b.i.d. 18. Magnesium oxide 400 mg p.o. daily. 19. Linezolid 600 mg p.o. b.i.d. for two more days. 20. Lantus 15 units subcutaneously daily. 21. Subcutaneous heparin 5000 units q.8h. 22. Heparin flush for port daily. 23. Enalapril 5 mg p.o. daily at noon. 24. Cyclobenzaprine 10 mg p.o. t.i.d. p.r.n. spasms. 25. DuoNeb one nebulized inhaled t.i.d. p.r.n. shortness of breath. HOSPITAL COURSE: Ms. Galarza is a 57-year-old lady well known to the hospital service who presented to the emergency room with complaints of more left heel pain prior to admission. She had seen Dr. Hess as outpatient, was prescribed ciprofloxacin, but she continued to have symptoms, so she came to the emergency room for further evaluation. She was admitted under the impression of diabetic foot infection, continued on Cipro, and linezolid was added to her regimen. The patient was seen in consultation by Infectious Disease (Dr. Damon) and he agreed with linezolid and ciprofloxacin and consultation by Dr. Hess. Dr. Hess recommended a transtibial amputation that was performed on July 26. The patient had significant pain postop and it was difficult to control as she would become fairly sedated with pain medication, but she would not have good pain control with a reduced dose. The patient had some pain relief with oxycodone and she was offered a bed at [facility] to continue her rehabilitation process. PHYSICAL EXAMINATION: General: The patient is a pleasant lady, sitting up in bed in no acute distress. Vital Signs: Temperature 98.3, heart rate 79, respiratory rate 18, oxygen saturation 99% on 2 L of nasal cannula, blood pressure 152/75. CVS: Normal S1, S2. Regular rate and rhythm. Chest: Breath sounds present bilaterally with no added sounds. Abdomen: Soft, bowel sounds are present. Extremities: There is a clean dressing intact to the left lower extremity. Neuro: She is alert and oriented x3, able to move all 4 extremities. DIET: Heart-healthy, consistent-carb diet. ACTIVITY: As tolerated. DISPOSITION: To [facility]. The patient states that she was recently seen at [facility] and she started conversations about LVED and heart transplant. She has had frequent admissions for CHF so we will continue to follow her while at [facility] to make sure that her foot status remain stable. Please keep in mind this is a summarized version of this patient's hospital stay. If you need more information, please feel free to call me at [phone] or please obtain the full medical record. Approximately 45 minutes were spent to complete this discharge. [id number]/[facility] #: [id number] ABNER
== END 2017-07-28 11:00 | DRG 617 ==
LOC: ED 14:34 → SSU 17:58
PROVIDERS: ADMIT Internal Medicine; ATTEND Internal Medicine
PROC: 0Y6J0Z3 Detachment at Left Lower Leg, Low, Open Approach (ICD-10-PCS; principal; 2017-07-26 14:15)
DX: E11.69 Type 2 diabetes mellitus with other specified complication (principal); M86.672 Other chronic osteomyelitis, left ankle and foot; E11.22 Type 2 diabetes mellitus with diabetic chronic kidney disease; K31.84 Gastroparesis; I13.0 Hypertensive heart and chronic kidney disease with heart failure and stage 1 through stage 4 chronic kidney disease, or unspecified chronic kidney disease; I50.9 Heart failure, unspecified; E11.43 Type 2 diabetes mellitus with diabetic autonomic (poly)neuropathy; F17.210 Nicotine dependence, cigarettes, uncomplicated; E11.42 Type 2 diabetes mellitus with diabetic polyneuropathy; I25.10 Atherosclerotic heart disease of native coronary artery without angina pectoris; N18.3 Chronic kidney disease, stage 3 (moderate); J44.9 Chronic obstructive pulmonary disease, unspecified; G25.81 Restless legs syndrome; D63.1 Anemia in chronic kidney disease; R33.9 Retention of urine, unspecified; Z88.5 Allergy status to narcotic agent; Z79.4 Long term (current) use of insulin; Z95.1 Presence of aortocoronary bypass graft; Z99.81 Dependence on supplemental oxygen; Z88.0 Allergy status to penicillin; Z88.2 Allergy status to sulfonamides; Z88.8 Allergy status to other drugs, medicaments and biological substances; Z88.1 Allergy status to other antibiotic agents; Z91.030 Bee allergy status; Z79.82 Long term (current) use of aspirin; Z79.899 Other long term (current) drug therapy; Z89.432 Acquired absence of left foot
CPT/HCPCS: 36415; 80048; 80053; 81003; 81015; 83605; 83735; 85025; 86140; 86850; 86900; 86901; 87040; 87070; 87073; 87205; 88307; 88311; 94640; 94760; A9270-GY; J0744; J1170; J1642; J1644; J2001; J2020; J2060; J2250; J2270; J2405; J2704; J2997; J3010; J3475; J3480

== ENCOUNTER 2017-09-20 12:39 | Inpatient (IN) | payer MEDICARE, MEDICAID ==
[~2017-09-20 12:39] MED LIST: Buffered Lidocaine 0.9% SYRIN* 5 ML/SYR SYRINGE INTRADERM ONE; Famotidine IV* 10 MG/ML 2 ML (20 mg) IV ONE; Morphine INJ* 2 MG/ML 1 ML CARPUJECT IV PRN; Ondansetron INJ* 2 MG/ML VIAL IV PRN; PROCHLORPERAZINE INJ 5 MG/ML 2 ML VIAL IV PRN; fentaNYL* 50 MCG/ML 2 ML VIAL (100 MCG VIAL) IV PRN; oxyCODONE/Acetamin 5/325 MG* TAB PO PRN
[2017-09-20] MEDS ORDERED: Famotidine IV* 10 MG/ML 2 ML (20 mg) ONE (12:48)
[2017-09-20] MEDS ORDERED: Buffered Lidocaine 0.9% SYRIN* 5 ML/SYR SYRINGE ONE (12:48)
[2017-09-20] MEDS ORDERED: Clindamycin 900 MG IVPREMIX(* 900 MG/50 ML SDV IV ONE (12:48)
[2017-09-20] MEDS ORDERED: fentaNYL* 50 MCG/ML 2 ML VIAL (100 MCG VIAL) ONE (13:01)
[2017-09-20] MEDS ORDERED: Midazolam* 1 MG/ML 10 ML VIAL (10 MG) ONE (13:01)
[2017-09-20] MEDS ORDERED: KETAMINE HCL* 50 MG/ML 10 ML VIAL ONE (13:01)
[2017-09-20] MEDS ORDERED: Lidocaine 2% PF * 5 ML VIAL ONE ×2 (13:30→14:46)
[2017-09-20] MEDS ORDERED: Insulin REGULAR(*) 1 UNITS UNIT ONE (13:43)
[2017-09-20] MEDS ORDERED: Propofol* 10 MG/ML 20 ML BTL IV PUSH ONE (14:45)
[2017-09-20] MEDS ORDERED: diPHENhydraMINE IV* 50 MG/ML 1 ml VIAL (BENADRYL) IV PRN (15:02)
[2017-09-20] MEDS ORDERED: Acetaminophen TAB* 325 MG PO PRN (15:02)
[2017-09-20] MEDS ORDERED: Morphine INJ* 2 MG/ML 1 ML CARPUJECT IV PRN (15:02)
[2017-09-20] MEDS ORDERED: Albuterol/Ipratropium NEB.SOL* Albuterol 2.5 MG/Ipratropium 0.5 MG 3 ML INH PRN (15:12)
[2017-09-20] MEDS ORDERED: Nitroglycerin TAB 0.4 MG* 0.4 MG TAB SL PRN (15:12)
[2017-09-20] MEDS ORDERED: Dextrose 50% Syringe 50 ML* 25 GM/50 ML SYRINGE IV PUSH PRN (15:38)
[2017-09-20] MEDS ORDERED: Insulin LISPRO* 1 UNITS UNIT SUBCUT ONE ×4 (15:48→20:52)
[2017-09-20] MEDS ORDERED: Metolazone TAB* 5 MG PO SCH (16:00)
[2017-09-20] MEDS ORDERED: Morphine INJ* 2 MG/ML 1 ML SYRINGE (TWO MG - NEW SYRINGE VERSION) ONE (17:25)
[2017-09-20] MEDS: Cyclobenzaprine TAB* 10 MG PO PRN (17:27)
[2017-09-20] MEDS ORDERED: Carvedilol TAB* 3.125 MG PO SCH (18:00)
[2017-09-20] MEDS: Gabapentin CAP(*) 300 MG PO SCH (18:19)
[2017-09-20] MEDS: Atorvastatin* 20 MG TAB PO SCH (18:20)
[2017-09-20] MEDS: Pramipexole TAB* 0.5 MG PO SCH (18:20)
[2017-09-20] MEDS: Metoclopramide TAB* 10 MG PO SCH (18:20)
[2017-09-20] MEDS: Linezolid 600 MG IVPREMIX(*) 600 MG/300 ML BAG IVPB SCH (18:24)
[2017-09-20] MEDS: Insulin LISPRO* 1 UNITS UNIT SUBCUT SCH (18:42)
[2017-09-20] MEDS ORDERED: traZODone TAB* 50 MG TAB PO PRN (21:00)
[2017-09-20] MEDS: Docusate CAP* 100 MG PO SCH (21:06)
[2017-09-20] MEDS: Insulin GLARGINE(*) 1 UNITS UNIT SUBCUT SCH (21:06)
--- NOTE | 2017-09-21 00:25 | CONS ---
CC: Moises Valdes MD; Tom Hess MD * CONSULTATION REPORT: DATE OF ADMISSION: 09/20/17 DATE OF CONSULTATION: 09/20/17 PRIMARY CARE PROVIDER: Moises Valdes MD PHYSICIAN REQUESTING CONSULTATION: Tom Hess MD ATTENDING PHYSICIAN: Sam Ortiz MD (dictated by Tressa Arnold NP) REASON FOR CONSULTATION: Hyperglycemia. HISTORY OF PRESENT ILLNESS: Ms. Galarza is a 57-year-old female with past medical history significant for diabetes mellitus, coronary artery disease, peripheral vascular disease, chronic kidney disease, cerebrovascular accident, hypertension, hyperlipidemia with left subclavian stenosis, osteomyelitis, congestive heart failure, and COPD, who presented to the hospital today for an abscess drainage on her left below the knee amputation stump. The patient states that she has been in her usual state of health. She denies any fevers, shortness of breath, chest pain, nausea, vomiting, diarrhea. The patient states that she has had intermittent chills and has noted that her glucose has been elevated over the last few weeks especially in the morning. She is able to get them down to the 200s during the day, but they are always very high in the mornings. The patient states that her weight has been stable and she has been sticking to a low sodium diet and that she has been feeling much better since her last admission. The patient was noted to have a glucose of 642 today prior to surgery and the Hospitalists were asked to assist with co-management of the patient during her hospitalization. PAST MEDICAL HISTORY: 1. Diabetes mellitus. 2. History of coronary artery disease. 3. Peripheral vascular disease. 4. Chronic kidney disease stage 3. 5. Cerebrovascular accident. 6. Hypertension. 7. Hyperlipidemia. 8. Left subclavian stenosis. 9. Osteomyelitis. 10. Restless leg syndrome. 11. Anemia. 12. Chronic obstructive pulmonary disease. 13. Combined systolic diastolic heart failure. 14. Status post coronary artery bypass graft. 15. Status post amputation of left forefoot followed by a revision in January 2016 followed by BKA on 07/26/17. 16. Status post right carotid endarterectomy. 17. Status post left first toe amputation for osteomyelitis in 2012. 18. Status post cervical laminectomy x3. 19. Left foot skin graft. 20. section. 21. Tonsillectomy. 22. Cholecystectomy. 23. Appendectomy. 24. Status post peripheral angiography with stent placement for a left subclavian proximal stenosis, 2016. 25. Status post left lower extremity stenting for peripheral vascular disease. HOME MEDICATIONS: Include: 1. Lantus 30 units subcutaneous twice daily. 2. Dulera 100/5 one puff inhalation twice daily. 3. Aspirin 81 mg oral daily. 4. Demadex 40 mg oral daily. 5. Mirapex 5 mg oral daily at bedtime. 6. Neurontin 1800 mg oral every evening. 7. DuoNeb nebulizer inhalation 3 times daily as needed for shortness of breath. 8. Nitro 0.4 mg sublingual every 5 minutes as needed for chest pain. 9. Spiriva 1 capsule inhalation daily. 10. Glucagon 1 mg IM as needed for glucose less than 60. 11. EpiPen 0.3 mg IM as needed for allergies. 12. Heparin flush 3 ml IV to port as needed. 13. Repatha 140 mg subcutaneous every 40 days. 14. Enalapril 2.5 mg oral daily. 15. Atorvastatin 20 mg oral daily. 16. Carvedilol 1.5625 mg in the morning and carvedilol 4.6875 mg oral at bedtime. 17. Percocet 1 to 2 tablets oral every 4 hours as needed for pain. 18. Metolazone 5 mg oral daily on Wednesday, Wednesday, Wednesday. 19. Reglan 5 mg oral 3 times daily with meals. 20. Magnesium oxide 400 mg oral every morning. 21. Lispro sliding scale subcutaneous with meals and at bedtime. 22. Flexeril 10 mg oral 3 times daily as needed for muscle spasms. 23. Plavix 75 mg oral every morning. ALLERGIES: CEPHALOSPORIN, PENICILLIN, SULFA, BEE VENOM, BENADRYL, MEROPENEM, VANCOMYCIN, and CODEINE. FAMILY HISTORY: The patient reports being adopted and is unaware of her family history. SOCIAL HISTORY: The patient is a former smoker with reported decades of smoking. The patient denies alcohol, recreational drug use. She is and lives with her . Her , Genaro, will be her surrogate decision maker in the event she is unable to make decisions for herself. REVIEW OF SYSTEMS: I performed a 14-point review of systems. All the pertinent positives and negatives are mentioned in the history of present illness. The remaining review of systems are negative. PHYSICAL EXAM: Vital Signs: Temperature 96.8, heart rate 79, respiratory rate 20, O2 sat 100% on 2 L via nasal cannula, blood pressure 151/89. General Appearance: The patient is alert, pleasant, appears to be in no acute distress. HEENT: Normocephalic, atraumatic. Pupils are equal and reactive to light. Extraocular movements are intact. Respiratory: There is no accessory muscle use and lungs are clear to auscultation bilaterally. Cardiovascular: Regular rate and rhythm. S1 and S2 present. There are no murmurs, rubs, or gallops heard. Abdomen: Soft, nontender, nondistended. Bowel sounds present x4. Extremities: There is no lower extremity edema. DP and PT pulses are 2+ and symmetric. Musculoskeletal: There is no clubbing or cyanosis noted. The patient exhibits good strength in all extremities. Neurological: The patient is alert and oriented x4. Cranial nerves II through XII are grossly intact. Psychological: The patient is calm and cooperative. Skin: The patient has a large dressing to her left BKA stump that is clean, dry and intact. DIAGNOSTIC STUDIES/LAB DATA: Preoperative labs from 08/23/17 show white blood cell count of 8.4, hemoglobin 9.9, hematocrit 30, platelet count 234. Preop labs from 08/25/17 show a sodium of 129, potassium of 4.3, chloride 96, CO2 26, BUN 54, creatinine 1.46, and glucose of 507. Hemoglobin A1c was 15.0 on . IMPRESSION: Ms. Galarza is a 57-year-old female with past medical history significant for diabetes mellitus, coronary artery disease, peripheral arterial disease, chronic kidney disease stage 3, history of cerebrovascular accident, hypertension, hyperlipidemia, combined diastolic systolic congestive heart failure, and chronic obstructive pulmonary disease who presented to the hospital today for drainage of an abscess at her left BKA stump. The Hospitalists were asked to consult on the patient for hyperglycemia. ASSESSMENT AND PLAN: 1. Status post abscess drainage at her left BKA stump. Management per Orthopedics. The patient will be nonweightbearing on the left lower extremity. She has been placed on linezolid per Orthopedic Surgery. 2. Diabetes mellitus. The patient has been hyperglycemic with blood sugars in the 500 to 600s. She reports taking her Lantus twice daily and lispro sliding scale. Her last hemoglobin A1c in April was 15. We are going to give the patient some extra lispro right now and continue her on her home Lantus and lispro sliding scale. I suspect the patient's hyperglycemia is secondary to her ongoing infection in her lower extremity. We will get fingersticks a.c. and h.s. 3. History of coronary artery disease. The patient will be continued on her beta brian, statin, aspirin, and Plavix. Continue Ranexa. 4. Peripheral vascular disease. The patient will be continued on her statin, aspirin, and Plavix. 5. Chronic kidney disease. The patient appears to be near her baseline. We will recheck BMP in the morning. 6. History of cerebrovascular accident. The patient will be continued on aspirin and Plavix and her statin. 7. Combined systolic diastolic congestive heart failure. The patient does not currently appear to be in an exacerbation. We will get daily weights, check Is and Os, going to give her no further IV fluids at this time. She will be continued on her home diuretics and JAIME inhibitor. 8. Chronic obstructive pulmonary disease. The patient will be continued on her home Spiriva and Dulera. 9. Hyperlipidemia. The patient will be continued on her home statin. 10. Restless leg syndrome. Continue Mirapex. 11. Fluids, electrolytes, and nutrition. The patient will be on a consistent carbohydrate regular diet. 12. Code status. Full code. 13. DVT prophylaxis. Per Orthopedics. 14. Disposition. Inpatient with disposition per Orthopedics. TIME SPENT: Time for this consultation was approximately 45 minutes, greater than half of that was spent with the patient discussing medications, past medical history, the events leading up to her arrival today, and performing a physical examination. The case has been reviewed with the attending Dr. Ortiz, who agrees with the plan of care. Reviewed by TANIA HERNANDEZ 09/28/17 1907 [id number]/[facility] #: [id number] ABNER
[2017-09-21] MEDS: Ondansetron INJ* 2 MG/ML VIAL IV PRN (01:34)
[2017-09-21] MEDS: Cyclobenzaprine TAB* 10 MG PO PRN (05:50)
[2017-09-21] MEDS: Linezolid 600 MG IVPREMIX(*) 600 MG/300 ML BAG IVPB SCH ×2 (05:50→18:16)
[2017-09-21 06:31] LABS: Hematocrit 27 % (35-47); Hemoglobin 8.7 g/dl (12.0-16.0)
[2017-09-21 06:47] LABS: BUN/Creatinine Ratio 18.6 (8-20); Calcium 9.2 mg/dL (8.6-10.3); EGFR African American 38.2 (>60); EGFR Non-African American 29.7 (>60); Potassium 4.9 mmol/L (3.5-5.0)
[2017-09-21] MEDS: Metoclopramide TAB* 10 MG PO SCH ×3 (07:38→17:09)
--- NOTE | 2017-09-21 07:41 | OP ---
DATE OF OPERATION: 09/20/17 - ROOM #331 DATE OF : 62 SURGEON: Tom Hess MD DREDGE PIPE INSTALLER: Jami Orantes PA-C ANESTHESIOLOGIST: Joe Enciso MD ANESTHESIA: MAC PRE-OP DIAGNOSIS: Infection, left below knee amputation site. POST-OP DIAGNOSIS: Infection, left below knee amputation site. OPERATIVE PROCEDURE: Irrigation and debridement, left below knee amputation site, and placement of wound VAC. DESCRIPTION OF PROCEDURE: The patient was taken to the operating room where we inspected the distal leg stump. There was gross purulent drainage from several portions of the medial half of the wound. With the patient under anesthesia, we made a transverse incision directly through the previous closure site. We opened up the entire [id number]-[id number] of the distal stump. Sharp soft tissue debridement was performed with a 10 blade. Cultures were sent and then the tourniquet dropped. We irrigated thoroughly with pulsatile lavage, 6 L of saline. I then placed a wound VAC in the dressing, closing this with Ioban dressing, compressing dressing and plaster splint was applied. The hospital did not have a VAC dressing machine available; evidently they had been used up over the weekend, so we placed a call to [facility] to make sure that VAC would be coming quickly to the hospital. The patient was transferred to the Recovery in satisfactory condition. [id number]/[facility] #: [id number] ABNER
--- NOTE | 2017-09-21 08:13 | PN ---
Progress Note - Progress Note Date of Service: 09/21/17 SOAP: Subjective: []Patient seen at bedside. She is feeling better than yesterday, with mild pain of the LLE. No chest pain, shortness of breath, nausea, dizziness, fever or chills. States she ran out of her diabetic medications in summertime due to her cyanide furnace operator relocating. Her sugars have been running in the 300's at home this past week. Objective: [] Vital Signs Temp 98.5 F 09/21/17 07:32 Pulse 86 09/21/17 07:32 Resp 16 09/21/17 07:37 BP 131/71 09/21/17 07:32 Pulse Ox 100 09/21/17 07:32 Intake & Output 09/20/17 09/21/17 09/21/17 18:59 06:59 18:59 Intake Total 450 1150.9 Output Total 50 Balance 450 1100.9 Weight 117 lb 135 lb 12.8 oz Intake: IV Fluids 450 83.9 CLINDAMYCIN 900 MG 50 LR 400 NS (0.9%) 83.9 Medicated IV 307 Zyvox 307 Oral 760 Output: Urine 0 Emesis 50 Laboratory Last Values Hgb 8.7 g/dl (12.0-16.0) L 09/21/17 06:00 Hct 27 % (35-47) L 09/21/17 06:00 Sodium 135 mmol/L (133-145) 09/21/17 06:00 Potassium 4.9 mmol/L (3.5-5.0) 09/21/17 06:00 Chloride 101 mmol/L (101-111) 09/21/17 06:00 Carbon Dioxide 26 mmol/L (22-32) 09/21/17 06:00 Anion Gap 8 mmol/L (2-11) 09/21/17 06:00 BUN 33 mg/dL (6-24) H 09/21/17 06:00 Creatinine 1.77 mg/dL (0.51-0.95) H 09/21/17 06:00 Est GFR ( Amer) 38.2 (>60) 09/21/17 06:00 Est GFR (Non-Af Amer) 29.7 (>60) 09/21/17 06:00 BUN/Creatinine Ratio 18.6 (8-20) 09/21/17 06:00 Glucose 201 mg/dL (70-100) H 09/21/17 06:00 POC Glucose (mg/dL) 350 mg/dL (70-100) H 09/20/17 20:46 Calcium 9.2 mg/dL (8.6-10.3) 09/21/17 06:00 General: Laying in bed. Well appearing, no acute distress. LLE: Dressing CDI, wound vac functioning. Sensation intact and no erythema or tenderness proximally. Assessment: []POD 1 sp I&D, wound vac placement, Dr. Hess. Previous Left BKA Plan: [] NWB LLE PT/OT Continued pain control Encouraged to use time in hospital to find new cyanide furnace operator for diabetic management
[2017-09-21] MEDS: Mometasone/Formoter 100/5 MDI INH SCH (08:20)
[2017-09-21] MEDS: Tiotropium CAP.INH* CAP.INH/18 MCG (USE ORDER SET !) INH PRN (08:21)
[2017-09-21] MEDS ORDERED: Carvedilol TAB* 3.125 MG PO SCH ×2 (09:00→16:28)
[2017-09-21] MEDS ORDERED: Enalapril TAB* 5 MG PO SCH ×2 (09:00→19:00)
[2017-09-21] MEDS ORDERED: Spiriva Inhaler DEVICE* 1 EACH DEVICE ONE (09:00)
[2017-09-21] MEDS: Docusate CAP* 100 MG PO SCH ×2 (10:24→21:17)
[2017-09-21] MEDS: Magnesium Oxide TAB* 400 MG PO SCH (10:24)
[2017-09-21] MEDS: Aspirin EC Low Dose* 81 MG TAB.EC PO SCH (10:24)
[2017-09-21] MEDS: Clopidogrel TAB* 75 MG PO SCH (10:25)
[2017-09-21] MEDS: Torsemide TAB* 20 MG PO SCH (10:25)
[2017-09-21] MEDS: Insulin GLARGINE(*) 1 UNITS UNIT SUBCUT SCH ×2 (10:26→21:24)
[2017-09-21] MEDS: Insulin LISPRO* 1 UNITS UNIT SUBCUT SCH ×3 (10:27→18:19)
[2017-09-21] MEDS: oxyCODONE/Acetamin 5/325 MG* TAB PO PRN (11:08)
[2017-09-21] MEDS ORDERED: NS 0.9% 250 ML* 250 ML IV ONE (15:48)
[2017-09-21] MEDS: D5W IVPB SCH (17:26)
[2017-09-21] MEDS: AZTREONAM IVPB SCH (17:26)
[2017-09-21] MEDS: Carvedilol TAB* 3.125 MG PO SCH ×2 (18:12→21:15)
[2017-09-21] MEDS: Gabapentin CAP(*) 300 MG PO SCH (18:20)
[2017-09-21] MEDS: Atorvastatin* 20 MG TAB PO SCH (18:20)
[2017-09-21] MEDS: Pramipexole TAB* 0.5 MG PO SCH (18:21)
--- NOTE | 2017-09-21 18:52 | PN ---
Subjective Date of Service: 09/21/17 Interval History: Patient complains of pain at 8/10 in LE at surgical site soon after pain medication was given. Patient also complains of cloudy urine and dysuria. Patient denies CP, SOB, N/V, Abdominal pain, F/C, Diarrhea, Constipation, dizziness, or other pain. Family History: Unchanged from Admission Social History: Unchanged from Admission Past Medical History: Unchanged from Admission Objective Active Medications: Acetaminophen (Tylenol Tab*) 650 mg PO Q4H PRN PRN Reason: PAIN OR TEMPERATURE Albuterol/Ipratropium (Duoneb (Albuterol 2.5 Mg/Ipratropium 0.5 Mg)) 1 neb INH TID PRN PRN Reason: SHORTNESS OF BREATH Aspirin (Aspirin Ec Low Dose*) 81 mg PO QAM [facility] Last Admin: 09/21/17 10:24 Dose: 81 mg Atorvastatin Calcium (Lipitor*) 20 mg PO QPM [facility] Last Admin: 09/21/17 18:20 Dose: 20 mg Carvedilol (Coreg Tab*) 3.125 mg PO QAM [facility] Carvedilol (Coreg Tab*) 4.6875 mg PO QPM [facility] Clopidogrel Bisulfate (Plavix Tab*) 75 mg PO QAM [facility] Last Admin: 09/21/17 10:25 Dose: 75 mg Cyclobenzaprine HCl (Flexeril Tab*) 10 mg PO TID PRN PRN Reason: muscle spasms Last Admin: 09/21/17 05:50 Dose: 10 mg Dextrose (D50w Syringe 50 Ml*) 12.5 gm IV PUSH .FOR FS < 60 - SS PRN PRN Reason: FS < 60 Docusate Sodium (Colace Cap*) 100 mg PO BID [facility] Last Admin: 09/21/17 10:24 Dose: 100 mg Enalapril Maleate (Vasotec Tab*) 2.5 mg PO QAM [facility] Last Admin: 09/21/17 10:25 Dose: 2.5 mg Gabapentin (Neurontin Cap(*)) 1,800 mg PO QPM [facility] Last Admin: 09/21/17 18:20 Dose: 1,800 mg Heparin Sodium (Porcine) (Heparin Flush Port (Ivad)) 5 ml FLUSH BID [facility] PRN Reason: Protocol Last Admin: 09/21/17 10:28 Dose: 5 ml Linezolid (Zyvox 600 Mg Ivpremix(*)) 600 mg in 300 mls @ 300 mls/hr IVPB Q12H [facility] Last Admin: 09/21/17 18:16 Dose: 300 mls/hr Aztreonam 1 gm/ Dextrose 50 mls @ 200 mls/hr IVPB Q8H [facility] Last Admin: 09/21/17 17:26 Dose: 200 mls/hr Insulin Glargine (Lantus(*)) 40 units SUBCUT BID [facility] Insulin Human Lispro (Humalog*) 0 - 10 units SUBCUT AC [facility] PRN Reason: Protocol Last Admin: 09/21/17 18:19 Dose: 4 unit Magnesium Oxide (Magox 400 Tab*) 400 mg PO QAM [facility] Last Admin: 09/21/17 10:24 Dose: 400 mg Metoclopramide HCl (Reglan Tab*) 5 mg PO TID WITH MEALS [facility] Last Admin: 09/21/17 17:09 Dose: Not Given Metolazone (Zaroxolyn Tab*) 5 mg PO MOWEFR [facility] Mometasone Furoate/Formoterol Fumar (Dulera 100/5 Mdi*) 2 puff INH QAM [facility] Last Admin: 09/21/17 08:20 Dose: 2 puff Morphine Sulfate (Morphine Inj (Syringe)*) 2 mg IV Q2H PRN PRN Reason: PAIN Nitroglycerin (Nitroglycerin Tab 0.4 Mg*) 0.4 mg SL Q5M PRN PRN Reason: PAIN - CHEST Ondansetron HCl (Zofran Inj*) 4 mg IV Q6H PRN PRN Reason: nausea Last Admin: 09/21/17 01:34 Dose: 4 mg Oxycodone/Acetaminophen (Percocet 5/325 Tab*) 1 tab PO Q4H PRN PRN Reason: PAIN - MILD TO MODERATE Oxycodone/Acetaminophen (Percocet 5/325 Tab*) 2 tab PO Q4H PRN PRN Reason: PAIN - MODERATE Last Admin: 09/21/17 11:08 Dose: 2 tab Pramipexole Dihydrochloride (Mirapex Tab*) 5 mg PO QPM [facility] Last Admin: 09/21/17 18:21 Dose: 5 mg Tiotropium [place] (Spiriva Cap.Inh*) 1 cap INH DAILY PRN PRN Reason: SHORTNESS OF BREATH Last Admin: 09/21/17 08:21 Dose: 1 cap Torsemide (Demadex*) 40 mg PO QAM [place] Last Admin: 09/21/17 10:25 Dose: 40 mg Trazodone HCl (Desyrel Tab*) 25 mg PO BEDTIME PRN PRN Reason: insomnia Vital Signs - 8 hr 09/21/17 09/21/17 09/21/17 11:08 11:37 13:35 Temperature 98.3 F Pulse Rate 81 Respiratory 16 16 16 Rate Blood Pressure 129/63 (mmHg) O2 Sat by Pulse 100 Oximetry 09/21/17 09/21/17 09/21/17 15:21 15:47 15:48 Temperature 97.8 F Pulse Rate 71 Respiratory 16 Rate Blood Pressure 76/42 70/50 70/50 (mmHg) O2 Sat by Pulse 99 Oximetry 09/21/17 09/21/17 16:49 18:20 Temperature Pulse Rate 77 Respiratory 16 Rate Blood Pressure 107/61 (mmHg) O2 Sat by Pulse Oximetry Oxygen Devices in Use Now: None Appearance: Patient is a 57yo female who appears stated age and is sitting in the bed in [facility]. Eyes: No Scleral Icterus, PERRLA Ears/Nose/Mouth/Throat: NL Teeth, Lips, Gums, Clear Oropharnyx, Mucous Membranes Moist, - - Oral mucosa dry. Neck: NL Appearance and Movements; NL JVP, Trachea Midline Respiratory: Symmetrical Chest Expansion and Respiratory Effort, Clear to Auscultation Cardiovascular: NL Sounds; No Murmurs; No JVD, RRR, No Edema Abdominal: NL Sounds; No Tenderness; No Distention, No Hepatosplenomegaly, - - No CVA or suprapubic tenderness. Lymphatic: No Cervical Adenopathy Extremities: No Edema, No Clubbing, Cyanosis, - - Lower left leg surgically absent. Skin: No Rash or Ulcers Neurological: Alert and Oriented x 3, - - CN II-XII intact. Result Diagrams: 09/21/17 06:00 09/21/17 06:00 Microbiology and Other Data: Microbiology 09/20/17 14:22 Wound Gram Stain - Final Tissue - Knee Left Tissue Culture - Preliminary Enterobacter Cloacae Strep Agalactiae - (Group B) Skin and Soft Tissue MRSA/MSSA (PCR - Final Mrsa Negative S.aureus Negative 09/20/17 14:22 Anaerobic Culture - Preliminary Misc Source (See Comment) - Knee Left 09/20/17 19:10 Nasal Screen MRSA (PCR)(RYNE) - Final Nasal Mrsa Negative Assess/Plan/Problems-Billing Assessment: - Patient Problems (1) Post-operative state Current Visit: Yes Status: Acute Code(s): Z98.890 - OTHER SPECIFIED POSTPROCEDURAL STATES SNOMED Code(s): 48834491 Comment: Patient is POD #1 from abscess drainage in LLE stump. Patient has 8/ 10 pain which is improved with pain medication. Pateint is urinating independently. Patient has not had a BM or flatus but denies abdominal pain. Patient had nausea in AM but states it had resolved without intervention. (2) CHF (congestive heart failure) Current Visit: No Status: Chronic Priority: Medium Code(s): I50.9 - HEART FAILURE, UNSPECIFIED SNOMED Code(s): 47550386 Comment: Chronic diastolic/systolic CHF BP on the low side Continue Torsemide, Zaroxolyn Monitor I+O's and daily weights Echo from 07/07 show ef of 35-40% (3) Uncontrolled type II diabetes mellitus Current Visit: No Status: Acute Code(s): E11.65 - TYPE 2 DIABETES MELLITUS WITH HYPERGLYCEMIA SNOMED Code(s): 40425002 Comment: Poorly controlled - last A1c was 15 in April. Will recheck. Increase lantus to 40uBID, Lispro SS. Should restablish with endocrinology. (4) Abscess Current Visit: No Status: Acute Code(s): L02.91 - CUTANEOUS ABSCESS, UNSPECIFIED SNOMED Code(s): 053682822 Comment: Appreciate ID Input cont IV linezolid and Aztreonam (5) Anemia Current Visit: No Status: Acute Priority: Medium Code(s): D64.9 - ANEMIA, UNSPECIFIED SNOMED Code(s): 648094906 Comment: Hemoglobin at 8.7. Close to baseline from AOCD and CKD, will monitor. (6) Hypotension Current Visit: No Status: Acute Priority: Medium Comment: 1 episode of hypotension responsive to fluids which occured after pain medication. Will monitor. (7) HTN (hypertension) Current Visit: No Status: Chronic Onset Date: 06/23/14 Code(s): I10 - ESSENTIAL (PRIMARY) HYPERTENSION SNOMED Code(s): 98340227 Comment: Had hypotensive episode after percocet administration. Resonded to .25L bolus without SOB. Hold parameters added to BP meds. Continue BP meds. (8) Peripheral vascular disease Current Visit: No Status: Chronic Code(s): I73.9 - PERIPHERAL VASCULAR DISEASE, UNSPECIFIED SNOMED Code(s): 988247261 Comment: Continue ASA, Plavix and Lipitor (9) DVT prophylaxis Current Visit: No Status: Acute Code(s): ZHH3653 - SNOMED Code(s): 219933119 Comment: SCDs (10) Full code status Current Visit: No Status: Acute Code(s): Z78.9 - OTHER SPECIFIED HEALTH STATUS SNOMED Code(s): 050979043 Status and Disposition: Patient is admitted inpatient. Disposition per primary team.
[2017-09-21 21:32] LABS: Urine Bacteria 1+ (Absent); Urine Bilirubin Negative (Negative); Urine Glucose 3+(>=500 mg/dL) (Negative); Urine Nitrite Negative (Negative)
--- NOTE | 2017-09-21 22:22 | CONS ---
CONSULTATION REPORT: DATE OF CONSULT: 09/21/17 REQUESTING PHYSICIAN: Dr. Hess. CONSULTING SERVICE: Infectious Disease. REASON FOR CONSULTATION: Left yoqvs-hae-ingo amputation site abscess and ulceration. IMPRESSION: 1. Status post left transtibial amputation in 07/26/17. The lateral aspect of the incision was healing well. Medially, there was some ulceration, so Dr. Hess took her to the OR yesterday for incision and debridement and find some purulent drainage. Gram stain showed gram positive cocci and yeast. The cultures growing Enterobacter and group B strep. Anaerobic cultures are negative to date. 2. Extensive antibiotic allergy history. 3. Insulin-dependent diabetes with a history of poor control. 4. History of tobacco abuse. RECOMMENDATIONS: Continue linezolid 600 mg IV every 12 hours as per gram negative coverage. Because of extensive allergies, we will try aztreonam. She has had highest of penicillin, cephalosporins, and carbapenems. This is her other good option given that she is allergic to sulfa and organisms in the past and she is growing Enterobacter, has been resistant to fluoroquinolones. Any help we can get on long-term blood sugar control. HISTORY OF PRESENT ILLNESS: This is a 57-year-old diabetic who in the past has been not used her insulin. Recently had the transtibial amputation because of infection, was healing well and then had some breakdown of the wound medially and seen by Dr. Hess and me and she proceeded to have incision and debridement and with cultures and findings as above. She has been on linezolid since yesterday. I discussed the case with OSCAR Cheney at that time. She has had no fevers, chills, or sweats. She has some pain at the surgical site, which is wrapped. No diarrhea or vomiting. PAST MEDICAL HISTORY: 1. Insulin-dependent diabetes with neuropathy. 2. Left lower extremity infection with multiple surgeries. 3. Coronary artery disease, status post CABG. 4. Peripheral vascular disease, status post carotid endarterectomy. 5. Subclavian steal, status post stenting. 6. Chronic kidney disease. 7. History of stroke. 8. Hypertension. 9. Hyperlipidemia. 10. Osteomyelitis of the left foot. 11. Restless legs syndrome. 12. Congestive heart failure. 13. Anemia. 14. COPD. 15. Status post appendectomy. 16. Status post cholecystectomy. 17. Status post tonsillectomy. 18. Status post laminectomy. 19. Status post pacemaker defibrillator placement. MEDICATIONS: 1. Tylenol. 2. Aspirin. 3. Lipitor. 4. Coreg. 5. Plavix. 6. Flexeril. 7. Enalapril. 8. Famotidine. 9. Gabapentin. 10. Insulin glargine. 11. Insulin lispro. 12. Reglan. 13. Metolazone. 14. Oxycodone. 15. Pramipexole. 16. Spiriva. 17. Linezolid 600 mg every 12 hours. ALLERGIES: CEPHALOSPORIN and PENICILLIN caused hives; SULFA, caused hives; BENADRYL and MEROPENEM caused diarrhea; VANCOMYCIN and CODEINE. FAMILY HISTORY: Unknown, she is adopted. SOCIAL HISTORY: She lives in [place] with her . She is a past smoker. REVIEW OF SYSTEMS: A 14-point review of systems was negative except as noted above. PHYSICAL EXAM: Vital Signs: Temperature is 37, heart rate 70, respiratory rate 16, blood pressure 180/40, oxygen saturation 99% on room air. In general, she is awake, not in distress. Neurologic: She is oriented x3, follows all commands. HEENT: There is no conjunctival hemorrhage. Oropharynx: Without lesions. Heart: Regular rate and rhythm without murmurs, rubs, or gallops. Lungs: Clear to auscultation bilaterally. Abdomen: Soft, nontender, and nondistended. There are bowel sounds present. Skin: There is no rash or splinter hemorrhages. Musculoskeletal: No spine tenderness to palpation or joint synovitis. The left leg is casted, foot surgically absent. DIAGNOSTIC STUDIES/LAB DATA: Creatinine 1.7. Hemoglobin 8.7. Please see impressions and recommendations as outlined above. Thank you for asking me to see Ms. Galarza in consultation. [id number]/[facility] #: [id number] [place]NER
[2017-09-22] MEDS: AZTREONAM IVPB SCH ×3 (02:11→19:57)
[2017-09-22] MEDS: D5W IVPB SCH ×3 (02:11→19:57)
[2017-09-22] MEDS: Linezolid 600 MG IVPREMIX(*) 600 MG/300 ML BAG IVPB SCH ×2 (05:43→18:27)
[2017-09-22 05:58] LABS: Hematocrit 26 % (35-47); Hemoglobin 8.4 g/dl (12.0-16.0); Mean Corpuscular HGB Conc 33 g/dl (31-36); Mean Corpuscular Hemoglobin 31 pg (27-31); Mean Corpuscular Volume 92 fL (80-97); Mean Platelet Volume 10 um3 (7.4-10.4); Red Blood Count 2.77 10^6/ul (4.0-5.4); Red Cell Distribution Width 18 % (10.5-15); White Blood Count 9.8 10^3/ul (3.5-10.8)
[2017-09-22 06:15] LABS: BUN/Creatinine Ratio 20.6 (8-20); Calcium 9.2 mg/dL (8.6-10.3); EGFR African American 38.7 (>60); EGFR Non-African American 30.1 (>60); Magnesium 2.3 mg/dL (1.9-2.7); Potassium 4.7 mmol/L (3.5-5.0)
[2017-09-22] MEDS: Mometasone/Formoter 100/5 MDI INH SCH (07:52)
[2017-09-22] MEDS: Tiotropium CAP.INH* CAP.INH/18 MCG (USE ORDER SET !) INH PRN (07:52)
--- NOTE | 2017-09-22 08:04 | PN ---
Progress Note - Progress Note Date of Service: 09/22/17 SOAP: Subjective: []Patient seen at bedside. She feels well and has no complaint of pain. NO fever , chill, chest pain, shortness of breath. Objective: [] Vital Signs Temp 98.1 F 09/22/17 03:00 Pulse 83 09/22/17 03:00 Resp 16 09/22/17 03:00 BP 122/69 09/22/17 03:00 Pulse Ox 97 09/22/17 03:00 Intake & Output 09/21/17 09/22/17 09/22/17 18:59 06:59 18:59 Intake Total 545 2320 Output Total 700 0 Balance -155 2320 Weight 136 lb 8 oz Intake: IV Fluids 305 445 NS (0.9%) 445 IVPB 425 ABX - LINEZOLID 365 ABX- aztreonam 60 Oral 240 1450 Output: Urine 700 0 Other: Estimated Void Large # Bowel Movements 0 # Voids 1 Laboratory Last Values WBC 9.8 10^3/ul (3.5-10.8) 09/22/17 05:37 RBC 2.77 10^6/ul (4.0-5.4) L 09/22/17 05:37 Hgb 8.4 g/dl (12.0-16.0) L 09/22/17 05:37 Hct 26 % (35-47) L 09/22/17 05:37 MCV 92 fL (80-97) 09/22/17 05:37 MCH 31 pg (27-31) 09/22/17 05:37 MCHC 33 g/dl (31-36) 09/22/17 05:37 RDW 18 % (10.5-15) H 09/22/17 05:37 Plt Count 218 10^3/ul (150-450) 09/22/17 05:37 MPV 10 um3 (7.4-10.4) 09/22/17 05:37 Neut % (Auto) 80.7 % (38-83) 09/22/17 05:37 Lymph % (Auto) 10.8 % (25-47) L 09/22/17 05:37 [place] % (Auto) 6.5 % (1-9) 09/22/17 05:37 Eos % (Auto) 1.3 % (0-6) 09/22/17 05:37 Baso % (Auto) 0.7 % (0-2) 09/22/17 05:37 Absolute Neuts (auto) 7.9 10^3/ul (1.5-7.7) H 09/22/17 05:37 Absolute Lymphs (auto) 1.1 10^3/ul (1.0-4.8) 09/22/17 05:37 Absolute Monos (auto) 0.6 10^3/ul (0-0.8) 09/22/17 05:37 Absolute Eos (auto) 0.1 10^3/ul (0-0.6) 09/22/17 05:37 Absolute Basos (auto) 0.1 10^3/ul (0-0.2) 09/22/17 05:37 Absolute Nucleated RBC 0.01 10^3/ul 09/22/17 05:37 Nucleated RBC % 0.1 09/22/17 05:37 Sodium 130 mmol/L (133-145) L 09/22/17 05:37 Potassium 4.7 mmol/L (3.5-5.0) 09/22/17 05:37 Chloride 98 mmol/L (101-111) L 09/22/17 05:37 Carbon Dioxide 29 mmol/L (22-32) 09/22/17 05:37 Anion Gap 3 mmol/L (2-11) 09/22/17 05:37 BUN 36 mg/dL (6-24) H 09/22/17 05:37 Creatinine 1.75 mg/dL (0.51-0.95) H 09/22/17 05:37 Est GFR ( Amer) 38.7 (>60) 09/22/17 05:37 Est GFR (Non-Af Amer) 30.1 (>60) 09/22/17 05:37 BUN/Creatinine Ratio 20.6 (8-20) H 09/22/17 05:37 Glucose 252 mg/dL (70-100) H 09/22/17 05:37 POC Glucose (mg/dL) 238 mg/dL (70-100) H 09/21/17 16:50 Calcium 9.2 mg/dL (8.6-10.3) 09/22/17 05:37 Magnesium 2.3 mg/dL (1.9-2.7) 09/22/17 05:37 Urine Color Yellow 09/21/17 21:14 Urine Appearance Turbid 09/21/17 21:14 Urine pH 5.0 (5-9) 09/21/17 21:14 Ur Specific [place] 1.007 (1.010-1.030) L 09/21/17 21:14 Urine Protein 2+(100 mg/dl) (Negative) H 09/21/17 21:14 Urine Ketones Negative (Negative) 09/21/17 21:14 Urine Blood 2+ (Negative) H 09/21/17 21:14 Urine Nitrate Negative (Negative) 09/21/17 21:14 Urine Bilirubin Negative (Negative) 09/21/17 21:14 Urine Urobilinogen Negative (Negative) 09/21/17 21:14 Ur Leukocyte Esterase 3+ (Negative) H 09/21/17 21:14 Urine WBC (Auto) 3+(>20/hpf) (Absent) H 09/21/17 21:14 Urine RBC (Auto) 1+(3-5/hpf) (Absent) H 09/21/17 21:14 Ur Squamous Epith Cells Present (Absent) H 09/21/17 21:14 Amorphous Crystals Present (Absent) H 09/21/17 21:14 Urine Bacteria 1+ (Absent) H 09/21/17 21:14 Urine Glucose 3+(>=500 mg/dl) (Negative) H 09/21/17 21:14 General: Laying in bed. Well appearing, no acute distress. LLE: Dressing CDI, wound vac functioning. Sensation intact and no erythema or tenderness proximally. Assessment: []POD 2 s/p I&D, wound vac placement, Dr. Hess. Previous Left BKA Plan: [] NWB LLE PT/OT Continued pain control To OR for washout and wound closure tomorrow with Dr. Shin Appreciate ID recommendations: IV linezolid and Aztreonam. Will RX linezolid 600 mg PO BID x 30 days at discharge.
[2017-09-22] MEDS: Torsemide TAB* 20 MG PO SCH (08:55)
[2017-09-22] MEDS: oxyCODONE/Acetamin 5/325 MG* TAB PO PRN ×2 (08:56→21:25)
[2017-09-22] MEDS: Metoclopramide TAB* 10 MG PO SCH ×3 (08:57→18:31)
[2017-09-22] MEDS: Magnesium Oxide TAB* 400 MG PO SCH (08:57)
[2017-09-22] MEDS: Docusate CAP* 100 MG PO SCH ×2 (08:57→21:25)
[2017-09-22] MEDS: Clopidogrel TAB* 75 MG PO SCH (08:59)
[2017-09-22] MEDS: Aspirin EC Low Dose* 81 MG TAB.EC PO SCH (08:59)
[2017-09-22] MEDS: Insulin LISPRO* 1 UNITS UNIT SUBCUT SCH ×3 (09:00→18:34)
[2017-09-22] MEDS: Insulin GLARGINE(*) 1 UNITS UNIT SUBCUT SCH ×2 (09:00→22:52)
[2017-09-22] MEDS: Metolazone TAB* 5 MG PO SCH (09:06)
--- NOTE | 2017-09-22 10:19 | PN ---
Progress Note - Progress Note Date of Service: 09/22/17 SOAP: Subjective: CC: L stump infection HPI: 57 year old woman with diabetes, recent trans tibial amputation who had medial wound ulcer and drainage; had revision, feels well. Some stump pain. No fever, rash, or diarrhea. Objective: [] Vital Signs Temp 36.8 C 09/22/17 07:43 Pulse 84 09/22/17 07:43 Resp 18 09/22/17 08:56 BP 119/65 09/22/17 07:43 Pulse Ox 97 09/22/17 08:00 Intake & Output 09/21/17 09/22/17 09/22/17 18:59 06:59 18:59 Intake Total 545 2320 300 Output Total 700 0 Balance -155 2320 300 Weight 136 lb 8 oz Intake: IV Fluids 305 445 300 NS (0.9%) 445 IVPB 425 ABX - LINEZOLID 365 ABX- aztreonam 60 Oral 240 1450 Output: Urine 700 0 Other: Estimated Void Large # Bowel Movements 0 # Voids 1 Gen:awake, no distress HEENT:PERRL, MMM Heart:RRR no murmur Lungs:CTA BL Abd:+BS NTND soft Skin: no rash MSK: L leg wrapped/vac dressing Assessment: 1. Left lower leg amp site abscess and ulcer s/p I&D; cultures pending, polymicrobial 2. insulin dependent diabetes 3. PAD Plan: 1. continue linezolid, can use 600 mg PO Q12hrs x28 days and aztreonam 1gm IV Q8hrs w weekly cbc, cmp, crp (ordered) 35 minutes floor time >50% face to face in counseling and coordination of home antibiotic plan
[2017-09-22] MEDS: Ondansetron INJ* 2 MG/ML VIAL IV PRN (13:14)
[2017-09-22] MEDS ORDERED: Buffered Lidocaine 0.9% SYRIN* 5 ML/SYR SYRINGE INTRADERM ONE (13:27)
--- NOTE | 2017-09-22 14:57 | PN ---
Subjective Date of Service: 09/22/17 Interval History: Patient states the pain in her leg in decreasing and that it is now 7/10 after pain medication. Patient has some low blood pressure after administration of oxycodone last night and again today. Previous episode responded to fluid without signs of cardiac overload. Patient states her dysuria has resolved. Patient denies CP, SOB, N/V, F/C, Dizziness, Abdominal pain, diarrhea, constipation, or other pain. Talked with patient about the need to reestablish with endocrinology outpatient. Family History: Unchanged from Admission Social History: Unchanged from Admission Past Medical History: Unchanged from Admission Objective Active Medications: Acetaminophen (Tylenol Tab*) 650 mg PO Q4H PRN PRN Reason: PAIN OR TEMPERATURE Albuterol/Ipratropium (Duoneb (Albuterol 2.5 Mg/Ipratropium 0.5 Mg)) 1 neb INH TID PRN PRN Reason: SHORTNESS OF BREATH Aspirin (A[facility]in Ec Low Dose*) [facility] Admin: 09/22/17 08:59 Dose: 81 mg Atorvastatin Calcium (Lipitor*) 20 mg PO QPM [facility] Last Admin: 09/21/17 18:20 Dose: 20 mg Carvedilol (Coreg Tab*) [facility] Last Admin: 09/22/17 08:59 Dose: 3.125 mg Carvedilol (Coreg Tab*) 4.6875 mg PO QPM [facility] Last Admin: 09/21/17 21:15 Dose: 4.6875 mg Clopidogrel Bisulfate (Plavix Tab*) [facility] Last Admin: 09/22/17 08:59 Dose: 75 mg Cyclobenzaprine HCl (Flexeril Tab*) 10 mg PO TID PRN PRN Reason: muscle spasms Last Admin: 09/21/17 05:50 Dose: 10 mg Dextrose (D50w Syringe 50 Ml*) 12.5 gm IV PUSH .FOR FS < 60 - SS PRN PRN Reason: FS < 60 Docusate Sodium (Colace Cap*) 100 mg PO BID [facility] Last Admin: 09/22/17 08:57 Dose: 100 mg Enalapril Maleate (Vasotec Tab*) 2.5 mg PO QAM [facility] Last Admin: 09/22/17 08:58 Dose: 2.5 mg Famotidine (Pepcid Iv*) 20 mg IV ONCE ONE Stop: 09/23/17 09:01 Gabapentin (Neurontin Cap(*)) 1,800 mg PO QPM [facility] Last Admin: 09/21/17 18:20 Dose: 1,800 mg Heparin Sodium (Porcine) (Heparin Flush Port (Ivad)) 5 ml FLUSH BID [facility] PRN Reason: Protocol Last Admin: 09/22/17 09:01 Dose: Not Given Linezolid (Zyvox 600 Mg Ivpremix(*)) 600 mg in 300 mls @ 300 mls/hr IVPB Q12H [facility] Last Admin: 09/22/17 05:43 Dose: 300 mls/hr Aztreonam 1 gm/ Dextrose 50 mls @ 200 mls/hr IVPB Q8H [facility] Last Admin: 09/22/17 12:13 Dose: 200 mls/hr Lactated Ringer's (Lactated Ringers 1000 Ml Bag*) 1,000 mls @ 125 mls/hr IV PER RATE [facility] Insulin Glargine (Lantus(*)) 40 units SUBCUT BID [facility] Last Admin: 09/22/17 09:00 Dose: 40 unit Insulin Human Lispro (Humalog*) 0 - 10 units SUBCUT AC [facility] PRN Reason: Protocol Last Admin: 09/22/17 12:34 Dose: 2 unit Magnesium Oxide (Magox 400 Tab*) 400 mg PO QAM [facility] Last Admin: 09/22/17 08:57 Dose: 400 mg Metoclopramide HCl (Reglan Tab*) 5 mg PO TID WITH MEALS [facility] Last Admin: 09/22/17 12:24 Dose: 5 mg Metolazone (Zaroxolyn Tab*) 5 mg PO MOWEFR [facility] Last Admin: 09/22/17 09:06 Dose: 5 mg Mometasone Furoate/Formoterol Fumar (Dulera 100/5 Mdi*) 2 puff INH QAM [facility] Last Admin: 09/22/17 07:52 Dose: 2 puff Morphine Sulfate (Morphine Inj (Syringe)*) 2 mg IV Q2H PRN PRN Reason: PAIN Nitroglycerin (Nitroglycerin Tab 0.4 Mg*) 0.4 mg SL Q5M PRN PRN Reason: PAIN - CHEST Ondansetron HCl (Zofran Inj*) 4 mg IV Q6H PRN PRN Reason: nausea Last Admin: 09/22/17 13:14 Dose: 4 mg Oxycodone/Acetaminophen (Percocet 5/325 Tab*) 1 tab PO Q4H PRN PRN Reason: PAIN - MILD TO MODERATE Last Admin: 09/22/17 08:56 Dose: 1 tab Oxycodone/Acetaminophen (Percocet 5/325 Tab*) 2 tab PO Q4H PRN PRN Reason: PAIN - MODERATE Last Admin: 09/21/17 11:08 Dose: 2 tab Pramipexole Dihydrochloride (Mirapex Tab*) 5 mg PO QPM [facility] Last Admin: 09/21/17 18:21 Dose: 5 mg Tiotropium [place] (Spiriva Cap.Inh*) 1 cap INH DAILY PRN PRN Reason: SHORTNESS OF BREATH Last Admin: 09/22/17 07:52 Dose: 1 cap Torsemide (Demadex*) 40 mg PO QAM [facility] Last Admin: 09/22/17 08:55 Dose: 40 mg Trazodone HCl (Desyrel Tab*) 25 mg PO BEDTIME PRN PRN Reason: insomnia Vital Signs - 8 hr 09/22/17 09/22/17 09/22/17 07:43 08:00 08:56 Temperature 98.3 F Pulse Rate 84 Respiratory 16 16 18 Rate Blood Pressure 119/65 (mmHg) O2 Sat by Pulse 98 97 Oximetry 09/22/17 09/22/17 09/22/17 11:23 12:04 14:38 Temperature 98.3 F Pulse Rate 75 Respiratory 16 14 13 Rate Blood Pressure 92/50 (mmHg) O2 Sat by Pulse 98 Oximetry Oxygen Devices in Use Now: None Appearance: Patient is a 57yo female who appears older than stated age and is sitting in the bed in [facility]. Eyes: No Scleral Icterus, PERRLA Ears/Nose/Mouth/Throat: NL Teeth, Lips, Gums, Clear Oropharnyx, Mucous Membranes Moist Neck: NL Appearance and Movements; NL JVP, Trachea Midline Respiratory: Symmetrical Chest Expansion and Respiratory Effort, Clear to Auscultation Cardiovascular: NL Sounds; No Murmurs; No JVD, RRR, No Edema, - - B/L radial, right DP/PT 2+. Left Femoral pulse 2+ Abdominal: NL Sounds; No Tenderness; No Distention, No Hepatosplenomegaly Lymphatic: No Cervical Adenopathy Extremities: No Edema, No Clubbing, Cyanosis, - - Surgically absent left extremity below knee covered in heavy bandage. Skin: No Rash or Ulcers, No Nodules or Sclerosis Neurological: Alert and Oriented x 3 Result Diagrams: 09/22/17 05:37 09/22/17 05:37 Microbiology and Other Data: Microbiology 09/20/17 14:22 Wound Gram Stain - Final Tissue - Knee Left Tissue Culture - Preliminary Enterobacter Cloacae Strep Agalactiae - (Group B) Skin and Soft Tissue MRSA/MSSA (PCR - Final Mrsa Negative S.aureus Negative 09/20/17 14:22 Anaerobic Culture - Preliminary Misc Source (See Comment) - Knee Left 09/20/17 19:10 Nasal Screen MRSA (PCR)(RYEN) - Final Nasal Mrsa Negative Assess/Plan/Problems-Billing Assessment: Patient is a 57yo female with a PMH significant for CAD, CHF with EF 35-40 on last echo, DMII, CKD, HLD, HTN who presents for elective revision of left BKA with severely elevated blood glucose levels who is doing well. - Patient Problems (1) Post-operative state Current Visit: Yes Status: Acute Code(s): Z98.890 - OTHER SPECIFIED POSTPROCEDURAL STATES SNOMED Code(s): 23271526 Comment: Patient is POD #2 from abscess drainage in LLE stump. Patient has 7/ 10 pain which is improved with pain medication. Pateint is urinating independently. Patient has not had a BM but denies abdominal pain. (2) CHF (congestive heart failure) Current Visit: No Status: Chronic Priority: Medium Code(s): I50.9 - HEART FAILURE, UNSPECIFIED SNOMED Code(s): 26842754 Comment: Chronic diastolic/systolic CHF BP on the low side Continue Torsemide, Zaroxolyn Monitor I+O's and daily weights Echo from 07/07 show ef of 35-40% Weight stable, no signs of cardiac overload. (3) Uncontrolled type II diabetes mellitus Current Visit: No Status: Acute Code(s): E11.65 - TYPE 2 DIABETES MELLITUS WITH HYPERGLYCEMIA SNOMED Code(s): 50003438 Comment: Better controlled today - Repeat A1c 16.2 Lantus at 40uBID, Lispro SS. Should restablish with endocrinology. (4) Abscess Current Visit: No Status: Acute Code(s): L02.91 - CUTANEOUS ABSCESS, UNSPECIFIED SNOMED Code(s): 815985441 Comment: Appreciate ID Input cont IV linezolid and Aztreonam (5) Anemia Current Visit: No Status: Acute Priority: Medium Code(s): D64.9 - ANEMIA, UNSPECIFIED SNOMED Code(s): 801726874 Comment: Hemoglobin at 8.4. Slight decrease from yesterday, Close to baseline from AOCD and CKD, will monitor. (6) Hypotension Current Visit: No Status: Acute Priority: Medium Comment: BP at 92/50 after pain medication. Patient asymptomatic. Will monitor, talked with patient about using tylenol before narcotic pain medications. (7) HTN (hypertension) Current Visit: No Status: Chronic Onset Date: 06/23/14 Code(s): I10 - ESSENTIAL (PRIMARY) HYPERTENSION SNOMED Code(s): 11838651 Comment: Had hypotensive episode after percocet administration. Resonded to .25L bolus without SOB. Hold parameters added to BP meds. Continue BP meds. (8) Peripheral vascular disease Current Visit: No Status: Chronic Code(s): I73.9 - PERIPHERAL VASCULAR DISEASE, UNSPECIFIED SNOMED Code(s): 096940243 Comment: Continue ASA, Plavix and Lipitor (9) UTI (urinary tract infection) Current Visit: No Status: Acute Comment: Dysuria, no CVA tenderness. Cloudy urine. Grossly positive UA. Should be covered by aztreonam. Appreciate ID input. Awaiting sensitivities with culture. (10) DVT prophylaxis Current Visit: No Status: Acute Code(s): WYQ2727 - SNOMED Code(s): 110481736 Comment: SCDs and heparin subQ x1 now and then resume after surgery. (11) Full code status Current Visit: No Status: Acute Code(s): Z78.9 - OTHER SPECIFIED HEALTH STATUS SNOMED Code(s): 003904262 Status and Disposition: Patient is admitted inpatient. Disposition per primary team.
[2017-09-22] MEDS ORDERED: Heparin VIAL(*) 5000 UNITS/ML VIAL (FIVE THOUSAND) SUBCUT ONE (15:25)
[2017-09-22 16:31] LABS: Hematocrit 24 % (35-47); Hemoglobin 7.7 g/dl (12.0-16.0); Mean Corpuscular HGB Conc 33 g/dl (31-36); Mean Corpuscular Hemoglobin 31 pg (27-31); Mean Corpuscular Volume 93 fL (80-97); Mean Platelet Volume 10 um3 (7.4-10.4); Red Blood Count 2.53 10^6/ul (4.0-5.4); Red Cell Distribution Width 18 % (10.5-15); White Blood Count 10.8 10^3/ul (3.5-10.8)
[2017-09-22] MEDS: Gabapentin CAP(*) 300 MG PO SCH (18:29)
[2017-09-22] MEDS: Atorvastatin* 20 MG TAB PO SCH (18:31)
[2017-09-22] MEDS: Pramipexole TAB* 0.5 MG PO SCH (18:32)
[2017-09-22] MEDS: Carvedilol TAB* 3.125 MG PO SCH (19:57)
[2017-09-22] MEDS: Isosorbide Dinitrate TAB* 10 MG PO SCH (21:25)
[2017-09-23] MEDS: AZTREONAM IVPB SCH ×3 (01:42→17:00)
[2017-09-23] MEDS: D5W IVPB SCH ×3 (01:42→17:00)
[2017-09-23] MEDS: Linezolid 600 MG IVPREMIX(*) 600 MG/300 ML BAG IVPB SCH (05:54)
[2017-09-23 05:57] LABS: Hematocrit 25 % (35-47); Hemoglobin 8.2 g/dl (12.0-16.0); Mean Corpuscular HGB Conc 33 g/dl (31-36); Mean Corpuscular Hemoglobin 30 pg (27-31); Mean Corpuscular Volume 92 fL (80-97); Mean Platelet Volume 10 um3 (7.4-10.4); Red Blood Count 2.73 10^6/ul (4.0-5.4); Red Cell Distribution Width 18 % (10.5-15); White Blood Count 8.6 10^3/ul (3.5-10.8)
[2017-09-23 06:08] LABS: Calcium 8.9 mg/dL (8.6-10.3); EGFR African American 28.6 (>60); EGFR Non-African American 22.3 (>60); Magnesium 2.2 mg/dL (1.9-2.7); Potassium 4.5 mmol/L (3.5-5.0)
[2017-09-23] MEDS: Metoclopramide TAB* 10 MG PO SCH ×3 (07:55→17:00)
[2017-09-23] MEDS ORDERED: Famotidine IV* 10 MG/ML 2 ML (20 mg) IV ONE (09:00)
[2017-09-23] MEDS: Aspirin EC Low Dose* 81 MG TAB.EC PO SCH (10:01)
[2017-09-23] MEDS: Docusate CAP* 100 MG PO SCH ×2 (10:02→21:38)
[2017-09-23] MEDS: Clopidogrel TAB* 75 MG PO SCH (10:02)
[2017-09-23] MEDS: Torsemide TAB* 20 MG PO SCH (10:02)
[2017-09-23] MEDS: Magnesium Oxide TAB* 400 MG PO SCH (10:02)
[2017-09-23] MEDS: Isosorbide Dinitrate TAB* 10 MG PO SCH ×3 (10:24→21:38)
[2017-09-23] MEDS: Mometasone/Formoter 100/5 MDI INH SCH (10:31)
--- NOTE | 2017-09-23 10:54 | PN ---
Subjective Date of Service: 09/23/17 Interval History: Ms. Galarza states that she is feeling well today and is happily visiting with her family. She denies any particular complaint including pain to her left leg amputation revision site. She further denies chest pain, SOB, nausea, or abdominal pain. Family History: Unchanged from Admission Social History: Unchanged from Admission Past Medical History: Unchanged from Admission Objective Active Medications: Acetaminophen (Tylenol Tab*) 650 mg PO Q4H PRN Albuterol/Ipratropium (Duoneb (Albuterol 2.5 Mg/Ipratropium 0.5 Mg)) 1 neb INH TID PRN Aspirin (Aspirin Ec Low Dose*) 81 mg PO QAM [facility] Atorvastatin Calcium (Lipitor*) 20 mg PO QPM [facility] Clopidogrel Bisulfate (Plavix Tab*) 75 mg PO QAM [facility] Cyclobenzaprine HCl (Flexeril Tab*) 10 mg PO TID PRN Dextrose (D50w Syringe 50 Ml*) 12.5 gm IV PUSH .FOR FS < 60 - SS PRN Docusate Sodium (Colace Cap*) 100 mg PO BID [facility] Enalapril Maleate (Vasotec Tab*) 2.5 mg PO QAM [facility] Gabapentin (Neurontin Cap(*)) 1,800 mg PO QPM [facility] Heparin Sodium (Porcine) (Heparin Flush Port (Ivad)) 5 ml FLUSH BID [facility] Linezolid (Zyvox 600 Mg Ivpremix(*)) 600 mg in 300 mls @ 300 mls/hr IVPB Q12H [facility] Aztreonam 1 gm/ Dextrose 50 mls @ 200 mls/hr IVPB Q8H [facility] Lactated Ringer's (Lactated Ringers 1000 Ml Bag*) 1,000 mls @ 125 mls/hr IV PER RATE [facility] Insulin Glargine (Lantus(*)) 40 units SUBCUT BID [facility] Insulin Human Lispro (Humalog*) 0 - 10 units SUBCUT AC [facility] Isosorbide Dinitrate (Isordil Tab*) 10 mg PO TID [facility] Magnesium Oxide (Magox 400 Tab*) 400 mg PO QAM [facility] Metoclopramide HCl (Reglan Tab*) 5 mg PO TID WITH MEALS [facility] Metolazone (Zaroxolyn Tab*) 5 mg PO MOWEFR [facility] Mometasone Furoate/Formoterol Fumar (Dulera 100/5 Mdi*) 2 puff INH QAM [facility] Morphine Sulfate (Morphine Inj (Syringe)*) 2 mg IV Q2H PRN Nitroglycerin (Nitroglycerin Tab 0.4 Mg*) 0.4 mg SL Q5M PRN Ondansetron HCl (Zofran Inj*) 4 mg IV Q6H PRN Oxycodone/Acetaminophen (Percocet 5/325 Tab*) 1 tab PO Q4H PRN Oxycodone/Acetaminophen (Percocet 5/325 Tab*) 2 tab PO Q4H PRN Pramipexole Dihydrochloride (Mirapex Tab*) 5 mg PO QPM [facility] Tiotropium [place] (Spiriva Cap.Inh*) 1 cap INH DAILY PRN Torsemide (Demadex*) 40 mg PO QAM [facility] Trazodone HCl (Desyrel Tab*) 25 mg PO BEDTIME PRN Vital Signs: Temp Pulse Resp BP Pulse Ox 97.8 F 74 18 138/75 100 09/23/17 07:41 09/23/17 07:41 09/23/17 08:00 09/23/17 07:41 09/23/17 07:41 Oxygen Devices in Use Now: None Appearance: Female sitting up in bed in NAD Eyes: No Scleral Icterus Ears/Nose/Mouth/Throat: Mucous Membranes Moist Neck: Trachea Midline Respiratory: Symmetrical Chest Expansion and Respiratory Effort, Clear to Auscultation Cardiovascular: NL Sounds; No Murmurs; No JVD, No Edema Abdominal: NL Sounds; No Tenderness; No Distention Lymphatic: No Cervical Adenopathy Extremities: No Edema Skin: No Rash or Ulcers Neurological: Alert and Oriented x 3, NL Muscle Strength and Tone Nutrition: Taking PO's Result Diagrams: 09/23/17 05:37 09/24/17 12:30 Microbiology and Other Data: . Assess/Plan/Problems-Billing Assessment: Ms. Galarza is a 57yo female with a PMH significant for CAD, CHF with EF 35-40 on last echo, DMII, CKD, HLD, HTN who presents for elective revision of left BKA with Hospital Medicine consultation requested for management of hyperglycemia post-operatively. - Patient Problems (1) Post-operative state Comment: - Patient is POD #3 from abscess drainage in LLE stump. (2) Abscess Comment: - Appreciate ID Input - cont IV linezolid and Aztreonam (3) CKD (chronic kidney disease) stage 3, GFR 30-59 ml/min Comment: - LELIA worsening, recheck in AM. Suspect due to relative hypotension since surgery as well long-term uncontrolled diabetes. (4) Uncontrolled type II diabetes mellitus Comment: - Better controlled today - Repeat A1c 16.2 - Lantus at 40uBID, Lispro SS. (5) Hypotension Comment: - BP at 80-90s. Patient asymptomatic. - Hold JAIME and diuretics, likely plan to resume at lower dose. (6) Anemia Comment: - Hemoglobin at 8.4. Slight decrease from yesterday, Close to baseline from AOCD and CKD, will monitor. (7) CHF (congestive heart failure) Comment: - Chronic diastolic/systolic CHF - BP on the low side, hold diuretics and ACEI until AM and then likely resume at lower dose and titrate up. - Monitor I+O's and daily weights - Echo from 07/07 show ef of 35-40% - Weight stable, no signs of cardiac overload. (8) DVT prophylaxis Comment: - Heparin SQ. (9) Full code status Status and Disposition: Patient is admitted inpatient. Disposition per primary team.
[2017-09-23] MEDS ORDERED: Dextrose 50% Syringe 50 ML* 25 GM/50 ML SYRINGE ONE (11:35)
[2017-09-23] MEDS ORDERED: Acetaminophen TAB* 325 MG PO PRN (11:59)
[2017-09-23] MEDS ORDERED: oxyCODONE TAB* 5 MG TAB PO PRN (11:59)
[2017-09-23] MEDS ORDERED: fentaNYL* 50 MCG/ML 2 ML VIAL (100 MCG VIAL) IV PRN (11:59)
[2017-09-23] MEDS ORDERED: Linezolid TAB* 600 MG PO SCH (12:00)
[2017-09-23] MEDS ORDERED: fentaNYL* 50 MCG/ML 2 ML VIAL (100 MCG VIAL) ONE ×3 (12:08→13:40)
[2017-09-23] MEDS ORDERED: Midazolam* 1 MG/ML 2 ML VIAL (2 MG) ONE (12:08)
[2017-09-23] MEDS: Insulin LISPRO* 1 UNITS UNIT SUBCUT SCH ×2 (12:23→16:32)
[2017-09-23] MEDS ORDERED: Clindamycin 900 MG IVPREMIX(* 900 MG/50 ML SDV IV ONE (12:24)
[2017-09-23] MEDS ORDERED: Propofol* 10 MG/ML 20 ML BTL IV PUSH ONE (12:33)
[2017-09-23] MEDS ORDERED: Lidocaine 2% PF * 5 ML VIAL ONE (12:33)
[2017-09-23] MEDS ORDERED: Bupivacaine 0.5% SDV PF* 30 ML VIAL ONE (12:44)
[2017-09-23] MEDS ORDERED: Acetaminophen TAB* 325 MG ONE (13:44)
[2017-09-23] MEDS: Enalapril TAB* 5 MG PO SCH (16:20)
[2017-09-23] MEDS: Atorvastatin* 20 MG TAB PO SCH (17:00)
[2017-09-23] MEDS: Linezolid TAB* 600 MG PO SCH (17:31)
[2017-09-23] MEDS: Pramipexole TAB* 0.5 MG PO SCH (17:31)
[2017-09-23] MEDS: Gabapentin CAP(*) 300 MG PO SCH (17:32)
[2017-09-23] MEDS: oxyCODONE/Acetamin 5/325 MG* TAB PO PRN (21:37)
[2017-09-23] MEDS: Insulin GLARGINE(*) 1 UNITS UNIT SUBCUT SCH (21:39)
--- NOTE | 2017-09-24 01:27 | OP ---
DATE OF OPERATION: 09/23/17 - ROOM #331 DATE OF : 62 SURGEON: Rivera Shin MD CLOTH LAMINATING SUPERVISOR: OSCAR Cheney ANESTHESIOLOGIST: Nelsy Borges MD ANESTHESIA: MAC with local anesthesia. PRE-OP DIAGNOSIS: Left below the knee amputation surgical wound infection with dehiscence. POST-OP DIAGNOSIS: Left below the knee amputation surgical wound infection with dehiscence. OPERATIVE PROCEDURE: Complex secondary wound closure of the left leg surgical wound dehiscence with irrigation and debridement. INDICATIONS: Michelle is a woman who had had a previous below the knee amputation by Dr. Hess. She had a surgical wound dehiscence with infection. Three days ago, Dr. Hess took her to the OR for an irrigation and debridement and placement of a VAC and this was a planned staged procedure. We discussed going back today to clean up the wound bed more and perform a secondary closure of the wound. We did discuss the nature and risks of surgery at length in the preoperative holding area including persistent infection, failure of the surgery , and repeated wound dehiscence. IMPLANTS: None. SPECIMENS: None. TOURNIQUET TIME: Less than 1 hour with a well-padded thigh tourniquet at 250 mmHg. ESTIMATED BLOOD LOSS: 50 cc. COMPLICATIONS: None. STATUS: Stable from the operating room to the recovery room and back to the hospital floor. DESCRIPTION OF PROCEDURE: The patient was seen in the preoperative holding unit and informed and written consent was obtained. The appropriate extremity was marked. The patient was then brought to the operating room and carefully positioned on the operating room table. Anesthesia was induced. All bony prominences were padded with great care. Chlorhexidine based pre-scrub was performed followed by a standard prep and drape with Betadine. A surgical safety pause was then conducted, in which we confirmed the appropriate patient, extremity, planned procedure, availability of equipment, continuation of her antibiotics, and DVT prophylaxis in the form of compression boot on the nonsurgical extremity. We started with elevation, exsanguination of the limb, and then inflated the tourniquet on the thigh to 250 mmHg. The wound was then explored. There was good granulation tissue covering the tibia and fibula distally. There were some areas of devitalized tissue, which were debrided sharply with the scalpel and Metzenbaum scissors. This included the superficial layer as well as the deep layers and muscle layers. There was also an area laterally on the skin that was of poor quality and this was excised. At this point, all devitalized tissue appeared to have been removed, so copious irrigation was performed with the assistance of Cysto tubing and a curette was used to further debride any devitalized tissue. Once this was done, it appeared to be a healthy bed of tissue for wound repair. So, at this time, we proceeded to a complex closure of the surgical wound. The wound measured 17 cm in length. We closed it in 4 layers including a deep fascial layer with #1 Vicryl and the intermediate layer with #1 Vicryl. A deep dermal layer with 3-0 Monocryl and the cutaneous layer with 3-0 nylon. Afterwards, the wound was nicely closed with opposed and everted edges. A dry sterile dressing was then placed and a posterior slab splint applied, which was well padded. The patient was then awakened from anesthesia and transferred to the recovery room in stable condition. Complications none. Needle and sponge counts correct at the end of the case. ATTESTATION: I attest that I was present, scrubbed and performed the entire procedure myself. POSTOPERATIVE PLAN: Michelle will be re-admitted back to the hospitalist service , where she will continue antibiotics per the infectious disease service. She is nonweightbearing on the left lower extremity. [id number]/[facility] #: [id number] [facility]
[2017-09-24] MEDS: D5W IVPB SCH ×3 (01:59→17:28)
[2017-09-24] MEDS: AZTREONAM IVPB SCH ×3 (01:59→17:28)
[2017-09-24] MEDS: Linezolid TAB* 600 MG PO SCH ×2 (05:30→17:35)
[2017-09-24] MEDS: oxyCODONE/Acetamin 5/325 MG* TAB PO PRN ×3 (05:33→20:12)
[2017-09-24] MEDS: Insulin LISPRO* 1 UNITS UNIT SUBCUT SCH ×3 (07:30→17:30)
[2017-09-24] MEDS: Metoclopramide TAB* 10 MG PO SCH ×3 (07:31→17:04)
[2017-09-24] MEDS: Insulin GLARGINE(*) 1 UNITS UNIT SUBCUT SCH ×2 (08:34→20:16)
[2017-09-24] MEDS: Magnesium Oxide TAB* 400 MG PO SCH (08:36)
[2017-09-24] MEDS: Docusate CAP* 100 MG PO SCH ×2 (08:36→20:12)
[2017-09-24] MEDS: Torsemide TAB* 20 MG PO SCH (08:36)
[2017-09-24] MEDS: Aspirin EC Low Dose* 81 MG TAB.EC PO SCH (08:36)
[2017-09-24] MEDS: Clopidogrel TAB* 75 MG PO SCH (08:36)
[2017-09-24] MEDS: Enalapril TAB* 5 MG PO SCH (08:37)
[2017-09-24] MEDS: Metolazone TAB* 5 MG PO SCH (08:38)
[2017-09-24] MEDS: Isosorbide Dinitrate TAB* 10 MG PO SCH ×3 (08:38→20:20)
[2017-09-24] MEDS: Mometasone/Formoter 100/5 MDI INH SCH (08:39)
--- NOTE | 2017-09-24 11:07 | PN ---
PROGRESS NOTE: DATE OF SERVICE: 09/24/17 HISTORY: Michelle is a day out from her irrigation and secondary closure, left BK site. She is afebrile, is having minimal pain. She is lying in bed, but does display some edema in the hands and face, which is a recurrent problem for her with some fluid retention and mild cardiac failure. She is on her torsemide today, it was stopped yesterday. Her previous cultures revealed some Enterobacter. She is on linezolid. We will await final recommendations from ID in terms of length of IV antibiotics, but probably 3 to 4 weeks would be appropriate given the marginal level in terms of infection control at this time. The patient can be up. Splint is intact and dry. [id number]/[facility] #: [id number] [facility]
--- NOTE | 2017-09-24 11:59 | PN ---
Progress Note - Progress Note Date of Service: 09/24/17 SOAP: Subjective: 57 y/o female POD 3 s/p I&D, wound vac placement, Dr. Hess, POD #1 s/p irrigation with secondary sound closure due to dehiscence, h/o Previous Left BKA. patient reports pain under control, no questions about surgery, overall feeling well, no complaints. Objective: General- Well appearing, NAD, sitting in bed. MSK- Dressing intact, no drainage, odor. unable to bend L knee due to splint , non tender to palpation over dressing, thigh without induration, erythema. Vital Signs Temp 98.1 F 09/24/17 11:14 Pulse 70 09/24/17 11:14 Resp 16 09/24/17 11:14 BP 102/54 09/24/17 11:14 Pulse Ox 100 09/24/17 11:14 Intake & Output 09/23/17 09/24/17 09/24/17 18:59 06:59 18:59 Intake Total 1300 2366 315 Output Total 850 400 400 Balance 450 1966 - Weight 64.274 kg Intake: IV Fluids 1150 1576 20 ABX- aztreonam 55 AZTRIANEM 1G IV 50 LR 1100 1521 20 IVPB 50 50 65 ABX- aztreonam 50 50 65 Oral 100 740 230 Output: Urine 850 400 400 Other: Estimated Void Medium # Bowel Movements 0 # Voids 1 Assessment: 57 y/o female POD 3 s/p I&D, wound vac placement, Dr. Hess, POD #1 s/p irrigation with secondary sound closure due to dehiscence, Plan: - Appreciate hospitalist input for multiple co-morbilities- LELIA, DM, CHF - APpreciate ID input - NWViviana PENA, PT/ OT - Continue current pain regimen Active Medications Generic Name Dose Route Start Last Admin Trade Name Freq PRN Reason Stop Dose Admin Acetaminophen 650 mg 09/20/17 15:02 Tylenol Tab* PO Q4H PRN PAIN OR TEMPERATURE Albuterol/Ipratropium 1 neb 09/20/17 15:12 Duoneb (Albuterol 2.5 Mg/Ipratropium 0.5 Mg) INH TID PRN SHORTNESS OF BREATH Aspirin 81 mg 09/21/17 09:00 09/24/17 08:36 Aspirin Ec Low Dose* PO 81 mg QAM [facility] Administration Atorvastatin Calcium 20 mg 09/20/17 18:00 09/23/17 17:00 Lipitor* PO 20 mg QPM [facility] Administration Clopidogrel Bisulfate 75 mg 09/21/17 09:00 09/24/17 08:36 Plavix Tab* PO 75 mg QAM [facility] Administration Cyclobenzaprine HCl 10 mg 09/20/17 15:12 09/21/17 05:50 Flexeril Tab* PO 10 mg TID PRN Administration muscle spasms Dextrose 12.5 gm 09/20/17 15:38 D50w Syringe 50 Ml* IV PUSH .FOR FS < 60 - SS PRN FS < 60 Docusate Sodium 100 mg 09/20/17 21:00 09/24/17 08:36 Colace Cap* PO 100 mg BID [facility] Administration Gabapentin 1,800 mg 09/20/17 18:00 09/23/17 17:32 Neurontin Cap(*) PO 1,800 mg QPM [facility] Administration Heparin Sodium (Porcine) 5 ml 09/20/17 22:06 09/24/17 08:39 Heparin Flush Port (Ivad) FLUSH 5 ml BID [facility] Administration Protocol Aztreonam 1 gm/ Dextrose 50 mls @ 200 mls/hr 09/21/17 18:00 09/24/17 09:50 IVPB 200 mls/hr Q8H [facility] Administration Lactated Ringer's 1,000 mls @ 125 mls/hr 09/23/17 06:00 09/23/17 21:47 Lactated Ringers 1000 Ml Bag* IV 125 mls/hr PER RATE [facility] Administration Insulin Glargine 40 units 09/23/17 21:00 09/24/17 08:34 Lantus(*) SUBCUT 40 units BID [facility] Administration Insulin Human Lispro 0 - 10 units 09/23/17 11:30 09/24/17 11:34 Humalog* SUBCUT Not Given AC [facility] Protocol Isosorbide Dinitrate 10 mg 09/22/17 21:00 09/24/17 08:38 Isordil Tab* PO Not Given TID [facility] Linezolid 600 mg 09/23/17 18:00 09/24/17 05:30 Zyvox Tab* PO 600 mg Q12H [facility] Administration Magnesium Oxide 400 mg 09/21/17 09:00 09/24/17 08:36 Magox 400 Tab* PO 400 mg QAM [facility] Administration Metoclopramide HCl 5 mg 09/20/17 17:00 09/24/17 07:31 Reglan Tab* PO Not Given TID WITH MEALS [facility] Metolazone 5 mg 09/22/17 09:00 09/24/17 08:38 Zaroxolyn Tab* PO Not Given MOWEFR [facility] Mometasone Furoate/Formoterol Fumar 2 puff 09/21/17 09:00 09/24/17 08:39 Dulera 100/5 Mdi* INH Not Given QAM [facility] Morphine Sulfate 2 mg 09/20/17 17:32 Morphine Inj (Syringe)* IV Q2H PRN PAIN Nitroglycerin 0.4 mg 09/20/17 15:12 Nitroglycerin Tab 0.4 Mg* SL Q5M PRN PAIN - CHEST Ondansetron HCl 4 mg 09/20/17 15:02 09/22/17 13:14 Zofran Inj* IV 4 mg Q6H PRN Administration nausea Oxycodone/Acetaminophen 1 tab 09/21/17 10:48 09/22/17 21:25 Percocet 5/325 Tab* PO 1 tab Q4H PRN Administration PAIN - MILD TO MODERATE Oxycodone/Acetaminophen 2 tab 09/21/17 10:48 09/24/17 05:33 Percocet 5/325 Tab* PO 2 tab Q4H PRN Administration PAIN - MODERATE Pramipexole Dihydrochloride 5 mg 09/20/17 18:00 09/23/17 17:31 Mirapex Tab* PO 5 mg QPM [place] Administration Tiotropium [place] 1 cap 09/21/17 09:00 09/22/17 07:52 Spiriva Cap.Inh* INH 1 cap DAILY PRN Administration SHORTNESS OF BREATH Trazodone HCl 25 mg 09/20/17 21:00 Desyrel Tab* PO BEDTIME PRN insomnia
[2017-09-24 13:50] LABS: BUN/Creatinine Ratio 25.9 (8-20); EGFR African American 38.9 (>60); EGFR Non-African American 30.3 (>60); Potassium 4.3 mmol/L (3.5-5.0)
--- NOTE | 2017-09-24 14:01 | PN ---
Progress Note - Progress Note Date of Service: 09/24/17 SOAP: Subjective: CC: leg infection HPI: 57 year old diabetic woman here for revision of left below knee amputation ; has had hypotension while here, creatinine increased 09/23. Urinating well. No fever, rash, or diarrhea. Objective: [] Vital Signs Temp 36.7 C 09/24/17 11:14 Pulse 70 09/24/17 11:14 Resp 16 09/24/17 11:14 BP 102/54 09/24/17 11:14 Pulse Ox 100 09/24/17 11:14 Intake & Output 09/23/17 09/24/17 09/24/17 18:59 06:59 18:59 Intake Total 1300 2366 675 Output Total 998 091 0909 Balance 450 1966 -625 Weight 141 lb 11.2 oz Intake: IV Fluids 1150 1576 20 ABX- aztreonam 55 AZTRIANEM 1G IV 50 LR 1100 1521 20 IVPB 50 50 65 ABX- aztreonam 50 50 65 Oral 100 740 590 Output: Urine 098 609 7988 Other: Estimated Void Medium # Bowel Movements 0 # Voids 1 Gen:awake, no distress HEENT:PERRL, MMM Heart:RRR no murmur Lungs:CTA BL Abd:+BS NTND soft Skin: no rash MSK: L stump casted Microbiology 09/20/17 14:22 Wound Gram Stain - Final Tissue - Knee Left Tissue Culture - Final Enterobacter Cloacae Strep Agalactiae - (Group B) Carmen Parapsilosis Skin and Soft Tissue MRSA/MSSA (PCR - Final Mrsa Negative S.aureus Negative 09/21/17 21:14 Urine Culture - Final Urine Escherichia Coli 09/20/17 14:22 Anaerobic Culture - Final Misc Source (See Comment) - Knee Left Laboratory Results - last 24 hr 09/23/17 09/23/17 09/24/17 16:29 21:19 07:29 Sodium Potassium Chloride Carbon Dioxide Anion Gap BUN Creatinine Est GFR ( Amer) Est GFR (Non-Af Amer) BUN/Creatinine Ratio Glucose POC Glucose (mg/dL) 79 193 H 123 H Calcium 09/24/17 09/24/17 11:32 12:30 Sodium 132 L Potassium 4.3 Chloride 97 L Carbon Dioxide 30 Anion Gap 5 BUN 45 H Creatinine 1.74 H Est GFR ( Amer) 38.9 Est GFR (Non-Af Amer) 30.3 BUN/Creatinine Ratio 25.9 H Glucose 56 L POC Glucose (mg/dL) 74 Calcium 9.0 Assessment: 1. L below knee amp site abscess, polymicrobial 2. chronic kidney disease; acute kidney injury suspect due to hypotension 3. diabetes, insulin dependent with nephropathy and neuropathy 4. CAD s/p CAB, hx CHF Plan: 1. continue linezolid 600 mg Q12hrs (will change to PO), continue aztreonam day 02/05 with weekly cbc, cmp, crp 2. BP and cardiac medication changes per hospitalist svc 35 minutes floor time >50% in counseling and coordinating care for home IV antibiotics
[2017-09-24] MEDS: Morphine INJ* 2 MG/ML 1 ML SYRINGE (TWO MG - NEW SYRINGE VERSION) IV PRN ×2 (14:39→20:13)
--- NOTE | 2017-09-24 17:30 | PN ---
Subjective Date of Service: 09/24/17 Interval History: Ms. Galarza states that she is feeling well today. She did have an episode where she let her pain get out of control earlier but she is feeling much better now with the support of the nursing staff. She denies chest pain, SOB, nausea, or abdominal pain. Family History: Unchanged from Admission Social History: Unchanged from Admission Past Medical History: Unchanged from Admission Objective Active Medications: Acetaminophen (Tylenol Tab*) 650 mg PO Q4H PRN Albuterol/Ipratropium (Duoneb (Albuterol 2.5 Mg/Ipratropium 0.5 Mg)) 1 neb INH TID PRN Aspirin (Aspirin Ec Low Dose*) 81 mg PO QAM [facility] Atorvastatin Calcium (Lipitor*) 20 mg PO QPM [facility] Clopidogrel Bisulfate (Plavix Tab*) 75 mg PO QAM [facility] Cyclobenzaprine HCl (Flexeril Tab*) 10 mg PO TID PRN Dextrose (D50w Syringe 50 Ml*) 12.5 gm IV PUSH .FOR FS < 60 - SS PRN Docusate Sodium (Colace Cap*) 100 mg PO BID [facility] Gabapentin (Neurontin Cap(*)) 1,800 mg PO QPM [facility] Heparin Sodium (Porcine) (Heparin Flush Port (Ivad)) 5 ml FLUSH BID [facility] Aztreonam 1 gm/ Dextrose 50 mls @ 200 mls/hr IVPB Q8H [facility] Lactated Ringer's (Lactated Ringers 1000 Ml Bag*) 1,000 mls @ 125 mls/hr IV PER RATE [facility] Insulin Glargine (Lantus(*)) 40 units SUBCUT BID [facility] Insulin Human Lispro (Humalog*) 0 - 10 units SUBCUT AC [facility] Isosorbide Dinitrate (Isordil Tab*) 10 mg PO TID [facility] Linezolid (Zyvox Tab*) 600 mg PO Q12H [facility] Magnesium Oxide (Magox 400 Tab*) 400 mg PO QAM [facility] Metoclopramide HCl (Reglan Tab*) 5 mg PO TID WITH MEALS [facility] Mometasone Furoate/Formoterol Fumar (Dulera 100/5 Mdi*) 2 puff INH QAM [facility] Morphine Sulfate (Morphine Inj (Syringe)*) 2 mg IV Q2H PRN Nitroglycerin (Nitroglycerin Tab 0.4 Mg*) 0.4 mg SL Q5M PRN Ondansetron HCl (Zofran Inj*) 4 mg IV Q6H PRN Oxycodone/Acetaminophen (Percocet 5/325 Tab*) 1 tab PO Q4H PRN Oxycodone/Acetaminophen (Percocet 5/325 Tab*) 2 tab PO Q4H PRN Pramipexole Dihydrochloride (Mirapex Tab*) 5 mg PO QPM [facility] Tiotropium [place] (Spiriva Cap.Inh*) 1 cap INH DAILY PRN Trazodone HCl (Desyrel Tab*) 25 mg PO BEDTIME PRN Vital Signs: Temp Pulse Resp BP Pulse Ox 98.1 F 70 16 102/54 100 09/24/17 11:14 09/24/17 11:14 09/24/17 15:56 09/24/17 11:14 09/24/17 11:14 Oxygen Devices in Use Now: None Appearance: Female sitting up in bed in NAD Eyes: No Scleral Icterus Ears/Nose/Mouth/Throat: Mucous Membranes Moist Neck: Trachea Midline Respiratory: Symmetrical Chest Expansion and Respiratory Effort, Clear to Auscultation Cardiovascular: NL Sounds; No Murmurs; No JVD, No Edema Abdominal: NL Sounds; No Tenderness; No Distention Lymphatic: No Cervical Adenopathy Extremities: No Edema Skin: No Rash or Ulcers Neurological: Alert and Oriented x 3, NL Muscle Strength and Tone Nutrition: Taking PO's Result Diagrams: 09/23/17 05:37 09/24/17 12:30 Microbiology and Other Data: . Assess/Plan/Problems-Billing Assessment: Ms. Galarza is a 57yo female with a PMH significant for CAD, CHF with EF 35-40 on last echo, DMII, CKD, HLD, HTN who presents for elective revision of left BKA with Hospital Medicine consultation requested for management of hyperglycemia post-operatively. - Patient Problems (1) Post-operative state Comment: - Patient is POD #4 from abscess drainage in LLE stump. (2) Abscess Comment: - Appreciate ID Input - cont IV linezolid and Aztreonam (3) CKD (chronic kidney disease) stage 3, GFR 30-59 ml/min Comment: - LELIA improving, recheck in AM. Suspect due to relative hypotension since surgery as well half-way uncontrolled diabetes. (4) Uncontrolled type II diabetes mellitus Comment: - BGs 70-110s. HgbA1c 16.2. - Decrease lantus to 35units BID, continue Lispro SSI coverage with meals. (5) Hypotension Comment: - BP at 90-140s. Patient asymptomatic. - Hold JAIME and diuretics, likely plan to resume at lower dose. (6) Anemia Comment: - Hemoglobin at 8.4. Slight decrease from yesterday, Close to baseline from AOCD and CKD, will monitor. (7) CHF (congestive heart failure) Comment: - Chronic diastolic/systolic CHF - BP on the low side, hold diuretics and ACEI until AM and then likely resume at lower dose and titrate up. - Monitor I+O's and daily weights - Echo from 07/07 show ef of 35-40% - Weight stable, no signs of cardiac overload. (8) DVT prophylaxis Comment: - Heparin SQ. (9) Full code status Status and Disposition: Patient is admitted inpatient. Disposition per primary team.
[2017-09-24] MEDS: Atorvastatin* 20 MG TAB PO SCH (17:32)
[2017-09-24] MEDS: Gabapentin CAP(*) 300 MG PO SCH (17:32)
[2017-09-24] MEDS: Pramipexole TAB* 0.5 MG PO SCH (17:35)
[2017-09-25] MEDS: AZTREONAM IVPB SCH ×2 (01:39→10:51)
[2017-09-25] MEDS: D5W IVPB SCH ×2 (01:39→10:51)
[2017-09-25] MEDS: Morphine INJ* 2 MG/ML 1 ML SYRINGE (TWO MG - NEW SYRINGE VERSION) IV PRN ×3 (04:21→13:45)
[2017-09-25] MEDS: oxyCODONE/Acetamin 5/325 MG* TAB PO PRN ×2 (04:24→09:28)
[2017-09-25] MEDS: Linezolid TAB* 600 MG PO SCH (05:31)
[2017-09-25 05:59] LABS: Hematocrit 23 % (35-47); Hemoglobin 7.4 g/dl (12.0-16.0); Mean Corpuscular HGB Conc 32 g/dl (31-36); Mean Corpuscular Hemoglobin 30 pg (27-31); Mean Corpuscular Volume 93 fL (80-97); Mean Platelet Volume 9 um3 (7.4-10.4); Red Blood Count 2.46 10^6/ul (4.0-5.4); Red Cell Distribution Width 18 % (10.5-15); White Blood Count 8.1 10^3/ul (3.5-10.8)
[2017-09-25 06:17] LABS: BUN/Creatinine Ratio 28.6 (8-20); Calcium 9.1 mg/dL (8.6-10.3); EGFR African American 42.6 (>60); EGFR Non-African American 33.1 (>60); Potassium 4.3 mmol/L (3.5-5.0)
--- NOTE | 2017-09-25 08:07 | PN ---
Subjective Date of Service: 09/25/17 Interval History: Ms. Galarza reports doing very well today. She has no acute complaints and is eager for discharge to home. Family History: Unchanged from Admission Social History: Unchanged from Admission Past Medical History: Unchanged from Admission Objective Active Medications: Acetaminophen (Tylenol Tab*) 650 mg PO Q4H PRN Albuterol/Ipratropium (Duoneb (Albuterol 2.5 Mg/Ipratropium 0.5 Mg)) 1 neb INH TID PRN Aspirin (Aspirin Ec Low Dose*) 81 mg PO QAM [facility] Atorvastatin Calcium (Lipitor*) 20 mg PO QPM [facility] Clopidogrel Bisulfate (Plavix Tab*) 75 mg PO QAM [facility] Cyclobenzaprine HCl (Flexeril Tab*) 10 mg PO TID PRN Dextrose (D50w Syringe 50 Ml*) 12.5 gm IV PUSH .FOR FS < 60 - SS PRN Docusate Sodium (Colace Cap*) 100 mg PO BID [facility] Gabapentin (Neurontin Cap(*)) 1,800 mg PO QPM [facility] Heparin Sodium (Porcine) (Heparin Flush Port (Ivad)) 5 ml FLUSH BID [facility] Aztreonam 1 gm/ Dextrose 50 mls @ 200 mls/hr IVPB Q8H [facility] Lactated Ringer's (Lactated Ringers 1000 Ml Bag*) 1,000 mls @ 125 mls/hr IV PER RATE [facility] Insulin Glargine (Lantus(*)) 35 units SUBCUT BID [facility] Insulin Human Lispro (Humalog*) 0 - 10 units SUBCUT AC [facility] Isosorbide Dinitrate (Isordil Tab*) 10 mg PO TID [facility] Linezolid (Zyvox Tab*) 600 mg PO Q12H [facility] Magnesium Oxide (Magox 400 Tab*) 400 mg PO QAM [facility] Metoclopramide HCl (Reglan Tab*) 5 mg PO TID WITH MEALS [facility] Mometasone Furoate/Formoterol Fumar (Dulera 100/5 Mdi*) 2 puff INH QAM [facility] Morphine Sulfate (Morphine Inj (Syringe)*) 2 mg IV Q2H PRN Nitroglycerin (Nitroglycerin Tab 0.4 Mg*) 0.4 mg SL Q5M PRN Ondansetron HCl (Zofran Inj*) 4 mg IV Q6H PRN Oxycodone/Acetaminophen (Percocet 5/325 Tab*) 1 tab PO Q4H PRN Oxycodone/Acetaminophen (Percocet 5/325 Tab*) 2 tab PO Q4H PRN Pramipexole Dihydrochloride (Mirapex Tab*) 5 mg PO QPM [facility] Tiotropium [place] (Spiriva Cap.Inh*) 1 cap INH DAILY PRN Trazodone HCl (Desyrel Tab*) 25 mg PO BEDTIME PRN Vital Signs: Temp Pulse Resp BP Pulse Ox 97.7 F 75 17 127/71 100 09/25/17 04:05 09/25/17 04:05 09/25/17 06:56 09/25/17 04:05 09/25/17 04:05 Oxygen Devices in Use Now: None Appearance: Female sitting up in chair in NAD Eyes: No Scleral Icterus Ears/Nose/Mouth/Throat: Mucous Membranes Moist Neck: Trachea Midline Respiratory: Symmetrical Chest Expansion and Respiratory Effort, Clear to Auscultation Cardiovascular: NL Sounds; No Murmurs; No JVD, No Edema Abdominal: NL Sounds; No Tenderness; No Distention Lymphatic: No Cervical Adenopathy Extremities: No Edema Skin: - - left stump incision with karma well-approximated, no erythema or drainage Neurological: Alert and Oriented x 3, NL Muscle Strength and Tone Nutrition: Taking PO's Result Diagrams: 09/25/17 05:50 09/25/17 05:50 Microbiology and Other Data: . Assess/Plan/Problems-Billing Assessment: Ms. Galarza is a 57yo female with a PMH significant for CAD, CHF with EF 35-40 on last echo, DMII, CKD, HLD, HTN who presents for elective revision of left BKA with Hospital Medicine consultation requested for management of hyperglycemia post-operatively. - Patient Problems (1) Post-operative state Comment: - Patient is POD #5 from abscess drainage in LLE stump. (2) Abscess Comment: - Appreciate ID Input - Cont linezolid po and Aztreonam x 28 days (3) CKD (chronic kidney disease) stage 3, GFR 30-59 ml/min Comment: - Resolved. Suspect due to relative hypotension since surgery as well roasterman uncontrolled diabetes. (4) Uncontrolled type II diabetes mellitus Comment: - BGs 70-110s. HgbA1c 16.2. - Resume home lantus at 30 units BID, continue Lispro SSI coverage with meals. - Referral made to [facility] [place]. (5) Hypotension Comment: - Resolved. - Resumed low dose JAIME, decreased dose toresmide, and MWF metolazone. Continue isosorbide. Hydralazine held. - Recommended to patient that she take BP at home. Plan for close follow up with PCP next week. (6) Anemia Comment: - Hemoglobin near baseline. (7) CHF (congestive heart failure) Comment: - No sign of exacerbation - Chronic diastolic/systolic CHF - BP improved. Resume decreased dose diuretics and ACEI. - Monitor I+O's and daily weights - Echo from 07/07 show ef of 35-40% (8) DVT prophylaxis Comment: - Heparin SQ. (9) Full code status Status and Disposition: Patient is admitted inpatient. Discharge per ortho.
[2017-09-25] MEDS: Insulin GLARGINE(*) 1 UNITS UNIT SUBCUT SCH (09:25)
[2017-09-25] MEDS: Insulin LISPRO* 1 UNITS UNIT SUBCUT SCH ×2 (09:25→13:12)
[2017-09-25] MEDS: Metoclopramide TAB* 10 MG PO SCH ×2 (09:27→13:10)
[2017-09-25] MEDS: Clopidogrel TAB* 75 MG PO SCH (09:29)
[2017-09-25] MEDS: Aspirin EC Low Dose* 81 MG TAB.EC PO SCH (09:29)
[2017-09-25] MEDS: Docusate CAP* 100 MG PO SCH (09:29)
[2017-09-25] MEDS: Magnesium Oxide TAB* 400 MG PO SCH (09:30)
[2017-09-25] MEDS: Isosorbide Dinitrate TAB* 10 MG PO SCH ×2 (09:30→13:10)
[2017-09-25] MEDS: Mometasone/Formoter 100/5 MDI INH SCH (10:00)
[2017-09-25] MEDS ORDERED: Aztreonam (*) 1 GM in NS 0.9% 100 ML* 100 ML IVPB SCH ×2 (11:19→18:00)
--- NOTE | 2017-09-25 12:39 | PN ---
Progress Note - Progress Note Date of Service: 09/25/17 SOAP: Subjective POD #5 left leg wound debridment with vac placement, POD #2 left leg repeat debridement and wound closure. She states that she is doing well, minimal pain in stump. Splint fell off when ambulating today. Denies CP, SOB. Objective: Vitals: Temp Pulse Resp BP Pulse Ox 97.9 F 77 16 130/70 97 09/25/17 08:15 09/25/17 08:15 09/25/17 09:28 09/25/17 08:00 09/25/17 08:15 Gen: A&O x3, NAD at rest LLE: Incision with minimal serous weeping to medial aspect, no purulent d/c. No erythema, mild edema. + ttp. N/V intact Assessment: S/P left leg wound debridement and vac placement, additional debridement and wound closure Plan: Dressing applied, keep in place until f/u with Dr. Hess this week Cont NWB LLE, elevate frequently F/u with PMD this week for medication/blood sugar management
[2017-09-25 12:53] VITALS: BP 94/55
== END 2017-09-25 15:40 | disposition home health service (06) | DRG 501 ==
LOC: OR 12:39 → SSU 14:20 → INTOOBSV 15:02 → SSU 15:02 → OBSVTOIN 09-22 14:20 → INTOOBSV 09-22 14:20
PROVIDERS: ADMIT Orthopaedic Surgery; ATTEND Internal Medicine
PROC: 2W1RX6Z Compression of Left Lower Leg using Pressure Dressing (ICD-10-PCS; 2017-09-20)
PROC: 0HQLXZZ Repair Left Lower Leg Skin, External Approach (ICD-10-PCS; 2017-09-23)
PROC: 0KBT0ZZ Excision of Left Lower Leg Muscle, Open Approach (ICD-10-PCS; principal; 2017-09-23 11:15)
DX: T87.44 Infection of amputation stump, left lower extremity (principal); I13.0 Hypertensive heart and chronic kidney disease with heart failure and stage 1 through stage 4 chronic kidney disease, or unspecified chronic kidney disease; E11.40 Type 2 diabetes mellitus with diabetic neuropathy, unspecified; E11.21 Type 2 diabetes mellitus with diabetic nephropathy; N17.9 Acute kidney failure, unspecified; E11.22 Type 2 diabetes mellitus with diabetic chronic kidney disease; I95.9 Hypotension, unspecified; N18.3 Chronic kidney disease, stage 3 (moderate); I50.42 Chronic combined systolic (congestive) and diastolic (congestive) heart failure; L02.91 Cutaneous abscess, unspecified; N39.0 Urinary tract infection, site not specified; E11.51 Type 2 diabetes mellitus with diabetic peripheral angiopathy without gangrene; E11.65 Type 2 diabetes mellitus with hyperglycemia; D64.9 Anemia, unspecified; Z88.0 Allergy status to penicillin; Z88.2 Allergy status to sulfonamides; Z88.1 Allergy status to other antibiotic agents; Z88.8 Allergy status to other drugs, medicaments and biological substances; Z91.030 Bee allergy status; I25.10 Atherosclerotic heart disease of native coronary artery without angina pectoris; G25.81 Restless legs syndrome; Z95.1 Presence of aortocoronary bypass graft; E78.2 Mixed hyperlipidemia; F17.210 Nicotine dependence, cigarettes, uncomplicated; M48.061 Spinal stenosis, lumbar region without neurogenic claudication; T87.81 Dehiscence of amputation stump; Y83.5 Amputation of limb(s) as the cause of abnormal reaction of the patient, or of later complication, without mention of misadventure at the time of the procedure; Y92.239 Unspecified place in hospital as the place of occurrence of the external cause; Z86.73 Personal history of transient ischemic attack (TIA), and cerebral infarction without residual deficits; Z90.49 Acquired absence of other specified parts of digestive tract; Z95.820 Peripheral vascular angioplasty status with implants and grafts; J44.9 Chronic obstructive pulmonary disease, unspecified
CPT/HCPCS: 36415; 80048; 81003; 81015; 82947; 83036; 83735; 85014; 85018; 85025; 87070; 87073; 87077; 87086; 87106; 87186; 87205; 87640; 87641; 94640; 94760; A9270-GY; G0378; G8978-GP-CI; G8979-GP-CI; G8980-GP-CI; G8987-GO-CJ; G8988-GO-CI; J1642; J1644; J2020; J2250; J2270; J2405; J2704; J3010

== ENCOUNTER 2017-10-07 12:14 | Inpatient (IN) | payer MEDICARE, MEDICAID ==
[2017-10-07 16:27] LABS: ABS Basophils 0 10^3/ul (0-0.2); ABS Monocytes 0.1 10^3/ul (0-0.8); Mean Platelet Volume 8 um3 (7.4-10.4); Red Cell Distribution Width 17 % (10.5-15)
[2017-10-07 16:30] LABS: ABS Eosinophils 0.1 10^3/ul (0-0.6); ABS Lymphocytes 1.3 10^3/ul (1.0-4.8); ABS Neutrophils 3.3 10^3/ul (1.5-7.7); ABS Nucleated RBC 0.01 10^3/ul; Hematocrit 17 % (35-47); Lymphocyte % 26.5 % (25-47); Mean Corpuscular HGB Conc 33 g/dl (31-36); Mean Corpuscular Hemoglobin 30 pg (27-31); Mean Corpuscular Volume 93 fL (80-97); Nucleated Red Blood Cells % 0.1; Platelet Count 136 10^3/ul (150-450); Red Blood Count 1.87 10^6/ul (4.0-5.4); White Blood Count 4.9 10^3/ul (3.5-10.8)
--- NOTE | 2017-10-07 16:32 | RAD ---
Indication: CHF. 2 views of the chest including demonstrates no mediastinal shift. Hyperinflated lung baumann are noted. There is cardiomegaly present. Pacemaker leads are in place. Central line is in place. When compared to previous exam of June 30, 2017 no significant change is noted. IMPRESSION: Pacemaker leads in place. Vascular congestion is noted.
[2017-10-07 16:41] LABS: EGFR Non-African American 45.6 (>60); Hemoglobin 5.7 g/dl (12.0-16.0)
[2017-10-07] MEDS ORDERED: Albuterol/Ipratropium NEB.SOL* Albuterol 2.5 MG/Ipratropium 0.5 MG 3 ML INH PRN (17:44)
[2017-10-07] MEDS ORDERED: Furosemide IV* 10 MG/ML 2 ML VIAL (20 MG) IV ONE ×2 (18:00→22:00)
[2017-10-07] MEDS: Gabapentin CAP(*) 300 MG PO SCH (20:45)
[2017-10-07] MEDS: Atorvastatin* 20 MG TAB PO SCH (20:47)
[2017-10-07] MEDS: Docusate CAP* 100 MG PO SCH (20:47)
[2017-10-07] MEDS: Pramipexole TAB* 0.5 MG PO SCH (20:48)
[2017-10-07] MEDS: Insulin GLARGINE(*) 1 UNITS UNIT SUBCUT SCH (20:50)
[2017-10-07] MEDS: Linezolid TAB* 600 MG PO SCH (21:27)
[2017-10-07] MEDS: Isosorbide Dinitrate TAB* 10 MG PO SCH (21:27)
[2017-10-07] MEDS: Aztreonam (*) 1 GM in NS 0.9% 50 ML* 50 ML IVPB SCH (21:28)
--- NOTE | 2017-10-07 21:47 | ED ---
Blanquita Wallace Gabriel, scribed for Bladimir Brown MD on 10/07/17 at 1552 . Complex/Multi-Sys Presentation - HPI Summary HPI Summary: This patient is a 57 year old F [facility] labs of hemoglobin of 5.7 drawn yesterday. Patient reports SOB, weight gain, increased edema, and Diarrhea. Hx of DM, chronic osteomyelitis, anemia, CHF and amputations. - History Of Current Complaint Chief Complaint: EDGeneral Time Seen by Provider: 10/07/17 15:38 Hx Obtained From: Patient Onset/Duration: Still Present Timing: Constant Severity Currently: Mild Severity Initially: Mild Associated Signs And Symptoms: Positive: Other - SOB, weight gain, increased edema, and Diarrhea - Allergies/Home Medications Allergies/Adverse Reactions: Allergies Allergy/AdvReac Type Severity Reaction Status Date / Time Bee Venom Allergy Intermediate Swelling Verified 09/20/17 13:05 Of Face,Lips,& Throat Cephalosporins Allergy Intermediate Shortness Verified 09/20/17 13:05 of Breath Diphenhydramine Allergy Intermediate Difficulty Verified 09/20/17 13:05 Breathing Penicillins Allergy Intermediate Hives Verified 09/20/17 13:05 Sulfa Drugs Allergy Intermediate Hives Verified 09/20/17 13:05 Vancomycin Allergy Mild Hives Verified 09/20/17 13:05 Codeine AdvReac Intermediate Vomiting Verified 09/20/17 13:05 Meropenem AdvReac Mild Diarrhea Verified 09/20/17 13:05 PMH/Surg Hx/FS Hx/Imm Hx Endocrine/Hematology History: Reports: Hx Anticoagulant Therapy, Hx Blood Transfusions, Hx Diabetes, Hx Thyroid Disease - Goiter, Hx Anemia, Other Endocrine/Hematological Disorders - anemia Denies: Hx Systemic Lupus Erythematosus Cardiovascular History: Reports: Hx Angioplasty, Hx Auto Implanted Cardiovert Defib, Hx Cardiac Arrest, Hx Congestive Heart Failure, Hx Coronary Artery Disease, Hx Hypercholesterolemia, Hx Hypertension, Hx Myocardial Infarction, Hx Pacemaker/ICD, Hx Peripheral Vascular Disease, Hx Valvular Heart Disease - "Leaky valve", Other Cardiovascular Problems/Disorders - triple bypass in [place], hyperlipidemia, ICD, carotid endarterectomy Denies: Hx Angina Respiratory History: Reports: Hx Asthma, Hx Chronic Bronchitis, Hx Chronic Obstructive Pulmonary Disease (COPD), Hx Pneumonia, Hx Pulmonary Edema, Hx Pulmonary Embolism, Hx Seasonal Allergies, Hx Sleep Apnea, Other Respiratory Problems/Disorders - respiratory failure, uses home oxygen GI History: Reports: Hx Gall Bladder Disease Denies: Hx Ulcer, Other GI Disorders History: Reports: Hx Chronic Renal Failure - CKD Stage 3, Other Problems/ Disorders - recent UTI Denies: Hx Dialysis, Hx Renal Disease Musculoskeletal History: Reports: Hx Arthritis - lower back and hips, Hx Back Problems, Hx Fibromyalgia, Hx Osteoporosis, Hx Scoliosis, Other Musculoskeletal History - left below knee amputation, restless leg syndrome, osteomyelitis Denies: Hx Rheumatoid Arthritis Sensory History: Reports: Hx Cataracts - no surgery needed yet, Hx Contacts or Glasses - glasses, Hx Vision Problem, Hx Hearing Problem - R ear numbness and decreased hearing r/t TIA per pt Denies: Hx Hearing Aid Opthamlomology History: Reports: Hx Cataracts - no surgery needed yet, Hx Contacts or Glasses - glasses, Hx Vision Problem Neurological History: Reports: Hx Migraine, Hx Nerve Disease - Diabetic Periperal Neuropathy, Hx Seizures - reports last one 30 yrs ago, Hx Transient Ischemic Attacks (TIA), Other Neuro Impairments/Disorders - peripheral neuropathy Denies: Hx Dementia Psychiatric History: Reports: Hx Anxiety, Hx Depression Denies: Hx Panic Disorder - Cancer History Hx Chemotherapy: No - Surgical History Surgery Procedure, Year, and Place: CARDIAC STENTS(4 PROMUS AND 1 VISIPRO PLACED AT [facility].5T ONLY DUE TO CONDITIONAL STATUS OF MAX YOUNGT. GRAD. 720), TRIPLE BYPASS, BILATERAL CAROTID ENDARTERECTOMY ,LAP ADDY,HYSTERECTOMY,LEFT GREAT TOE AMPUTATION,APPY, T&A ,STERNAL WIRES ,LUMBAR SPINE FUSION,CSP FUSION , C SECTION,BACK SURGERY-LASER SURGERY. defib,port, left below knee amputation jul 2017 Hx Anesthesia Reactions: No - Immunization History Date of Tetanus Vaccine: 2015 Date of Influenza Vaccine: 2016 Infectious Disease History: No Infectious Disease History: Reports: Hx of Known/Suspected MRSA Denies: Hx Clostridium Difficile, Hx Hepatitis, Hx Human Immunodeficiency Virus (HIV), Hx Shingles, Hx Tuberculosis, Hx Known/Suspected VRE, Hx Known/ Suspected VRSA, History Other Infectious Disease, Traveled Outside the [place] in Last 30 Days - Family History Known Family History: Positive: Unknown - Pt is adopted and does not know her FHx - Social History Alcohol Use: None Hx Substance Use: No Substance Use Type: Reports: None Hx Tobacco Use: Yes Smoking Status (MU): Light Every Day Tobacco Smoker Type: Cigarettes Amount Used/How Often: 1/2 PPD for 30 years Length of Time of Smoking/Using Tobacco: 30 years Have You Smoked in the Last Year: Yes Review of Systems Positive: Other - weight gain Positive: Shortness Of Breath Positive: Diarrhea Positive: Edema All Other Systems Reviewed And Are Negative: Yes Physical Exam - Summary Physical Exam Summary: Appearance: no pain distress, pale skin Skin: warm, dry, reflects adequate perfusion Head/face: pale conjunctiva Eyes: EOMI, JONI ENT: normal Neck: supple, non-tender, there are surgical scars all over the neck, no JVD Respiratory: CTA, breath sounds present Cardiovascular: RRR, pulses symmetrical, no murmur Abdomen: non-tender, soft Bowel: present Rectal: stool is soft and brown, no gross blood Back: Lumbar scar, No CVA tenderness Musculoskeletal: BKA on left leg with chronic osteomyelitis, pitting edema up to knee on RLE Neuro: normal, sensory motor intact, A&Ox3 Triage Information Reviewed: Yes Vital Signs On Initial Exam: Initial Vitals Temp Pulse Resp BP Pulse Ox 97.4 F 104 22 158/73 100 10/07/17 12:16 10/07/17 12:16 10/07/17 12:16 10/07/17 12:16 10/07/17 12:16 Vital Signs Reviewed: Yes - Lea Coma Scale Coma Scale Total: 15 Diagnostics - Vital Signs Vital Signs Temp Pulse Resp BP Pulse Ox 10/07/17 15:41 98 18 100 10/07/17 15:40 184/93 10/07/17 12:16 97.4 F 104 22 158/73 100 - Laboratory Lab Results: Lab Results 10/07/17 10/07/17 10/07/17 Range/Units 16:07 16:07 16:07 WBC 4.9 (3.5-10.8) 10^3/ul RBC 1.87 L (4.0-5.4) 10^6/ul Hgb 5.7 L* (12.0-16.0) g/dl Hct 17 L (35-47) % MCV 93 (80-97) fL MCH 30 (27-31) pg MCHC 33 (31-36) g/dl RDW 17 H (10.5-15) % Plt Count 136 L (150-450) 10^3/ul MPV 8 (7.4-10.4) um3 Neut % (Auto) 67.8 (38-83) % Lymph % (Auto) 26.5 (25-47) % Ford % (Auto) 1.9 (1-9) % Eos % (Auto) 3.0 (0-6) % Baso % (Auto) 0.8 (0-2) % Absolute Neuts (auto) 3.3 (1.5-7.7) 10^3/ul Absolute Lymphs (auto) 1.3 (1.0-4.8) 10^3/ul Absolute Monos (auto) 0.1 (0-0.8) 10^3/ul Absolute Eos (auto) 0.1 (0-0.6) 10^3/ul Absolute Basos (auto) 0 (0-0.2) 10^3/ul Absolute Nucleated RBC 0.01 10^3/ul Nucleated RBC % 0.1 Sodium 138 (133-145) mmol/L Potassium 4.0 (3.5-5.0) mmol/L Chloride 106 (101-111) mmol/L Carbon Dioxide 23 (22-32) mmol/L Anion Gap 9 (2-11) mmol/L BUN 42 H (6-24) mg/dL Creatinine 1.22 H (0.51-0.95) mg/dL Est GFR ( Amer) 58.6 (>60) Est GFR (Non-Af Amer) 45.6 (>60) BUN/Creatinine Ratio 34.4 H (8-20) Glucose 142 H (70-100) mg/dL Calcium 8.7 (8.6-10.3) mg/dL Blood Type O Positive Antibody Screen Negative Antibody Identification Cancelled Direct Antiglob Test Cancelled Crossmatch See Detail Result Diagrams: 10/07/17 16:07 10/07/17 16:07 Lab Statement: Any lab studies that have been ordered have been reviewed, and results considered in the medical decision making process. - Radiology CXR Radiology Interpretation Completed By: Radiologist - Pacemaker leads in place. Vascular congestion is noted. ED physician has reviewed this radiology report. Complex Multi-Symp Course/Dx Course Of Treatment: Chronically ill pt with chronic anemia requiring transfusion. Has tenuous CHF and will require the blood product over extended period of time under close observation. As such, she will require admission. - Diagnoses Provider Diagnoses: CHF (congestive heart failure), Acute pure red cell anemia, CKD (chronic kidney disease) stage 3, GFR 30-59 ml/min - Physician Notifications Discussed Care Of Patient With: Jolanta Mckinley Time Discussed With Above Provider: 16:02 Instructed by Provider To: Admit As Inpatient - Critical Care Time Critical Care Time: 30-74 min - includes transfusion of blood product in medically complex patient. CCT is exclusive of separately billable procedures. Discharge - Discharge Plan Condition: Fair Disposition: ADMITTED TO [facility] Referrals: Moises Valdes MD [Primary Care Provider] - The documentation as recorded by the Blanquita sherwood Gabriel accurately reflects the service I personally performed and the decisions made by Stephanie florian Kirk, MD.
--- NOTE | 2017-10-08 02:47 | HP ---
ADMISSION HISTORY AND PHYSICAL: DATE OF ADMISSION: 10/07/17 PROVIDER: Nanci Claudio NP PRIMARY CARE PROVIDER: Dr. Valdes. ATTENDING: Dr. Jolanta Mckinley.* (DICTATED BY NANCI CLAUDIO NP) CHIEF COMPLAINT: Shortness of breath with exertion, progressive fatigue, weakness, and 10-pound weight gain over 7 days. HISTORY OF PRESENT ILLNESS: This is a very pleasant 57-year-old female with a longstanding history of acute on chronic heart failure with multiple episodes and 9 hospitalizations over this past year for the same. 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 The patient thought that initially she was having a flare of her acute heart failure , had gone for some laboratory work and was found to have a hemoglobin of 5.7. She was sent to the emergency department for reevaluation for her abnormal lab values and was found that the hemoglobin was in fact still 5.7 and she was referred for admission for symptomatic anemia. Of significant note, the patient reported no active bleeding from her stump site, reported no GI bleeding , no rectal bleeding, and no further active bleeding sites since her recent additional amputation of the left lower extremity. However, the patient does report that this progressive shortness of breath along with weight gain and along with some dietary indiscretion over the holidays, she feels is contributed to her condition, so it appears that she is having another acute exacerbation of her chronic CHF along with some very symptomatic anemia that is likely from chronic disease, also from some chronic renal insufficiency. PAST MEDICAL HISTORY: Significant for diabetes mellitus type 2 with insulin dependence; coronary artery artery disease, status post stenting; peripheral vascular disease, severe; chronic kidney disease stage 3; history of CVA; hypertension; hyperlipidemia; subclavian stenosis of the left chronic osteomyelitis of the left lower extremity; restless legs syndrome; chronic diastolic heart failure; chronic anemia of chronic disease; and COPD with past history of tobacco abuse. 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 MEDICATIONS: At home include: 1. Lantus 30 units q.h.s. 2. Dulera 1 puff 2 times a day. 3. Baby aspirin 81 mg daily. 4. Demadex 20 mg daily. 5. Mirapex 5 mg q.h.s. 6. Neurontin 1800 mg p.o. daily. 7. DuoNebs 3 times a day as needed. 8. Nitroglycerin 0.4 mg sublingual p.r.n. chest pain. 9. Spiriva 1 capsule inhaled daily. 10. Repatha 140 mg subcu every 14 days. 11. Enalapril 5 mg daily. 12. Atorvastatin 20 mg daily. 13. MiraLAX as needed. 14. Percocet 1 tablet every 4 hours as needed. 15. Linezolid 600 mg daily. 16. Aztreonam 1 g IV q.8 hours. 17. Plavix 75 mg daily. 18. Colace 100 mg 2 times a day as needed. 19. Enalapril 2.5 mg daily. 20. Isosorbide dinitrate 10 mg 3 times a day. 21. Mag-Ox 400 mg daily. 22. Reglan 5 mg 3 times a day with meals. 23. Metolazone 5 mg p.o. Wednesday, Wednesday, and Wednesday. ALLERGIES: The patient has multiple allergies to ANTIBIOTICS including CEPHALOSPORINS, PENICILLIN, SULFA DRUGS, BEE STINGS, BENADRYL, MEROPENEM, VANCOMYCIN, and CODEINE. FAMILY HISTORY: Unclear. The patient states she is adopted, so it is not contributory at this point. SOCIAL HISTORY: The patient has a former history of smoking. Does not drink alcohol. Lives at home with her . She is disabled. Her is her POA and decision maker. REVIEW OF SYSTEMS: A 10-point review of systems is negative except as noted in HPI. PHYSICAL EXAMINATION GENERAL: The patient is awake and alert, no acute distress. She does appear moderately fatigued. She is sitting upright. VITAL SIGNS: Currently, blood pressure 138/67, heart rate 95, respiratory rate 15, O2 saturation 96% on room air. HEENT: The patient is atraumatic, normocephalic. PERRLA with non-icteric sclerae. Oral mucosa is moist. NECK: Supple, nontender. Trachea is midline. No carotid bruit auscultated. LUNGS: Clear bilaterally to auscultation at the apices. She has rales present at the left lower base. She is clear in the right [id number]-dz-elqhb lobe; however, she is diminished on expiration at the base. CARDIOVASCULAR: S1, S2 are present. Rate and rhythm are regular. No murmurs, gallops, or rubs appreciated. ABDOMEN: Soft, nontender, and nondistended with positive bowel sounds in all 4 quadrants. No masses appreciated and no bruits auscultated. MUSCULOSKELETAL: She has +2 distal pulses radially and pedal on the right lower extremity. She has a [id number] amputation on the left lower extremity. She has +4 pitting edema on the right lower extremity. Skin is shiny and pink and does not appear to be erythematous. It is warm, dry, and intact on the right. On the left, the stump has been changed, but does not appear to be any drainage through the dressing. It is clean, dry, and intact. Dressing was just changed this morning. NEUROLOGIC: She is grossly intact with no focal deficits. PSYCHIATRIC: She is cooperative and appropriate. DIAGNOSTIC STUDIES/LAB DATA: Laboratories in the ER today showed WBCs 4.9, RBCs 1.87, hemoglobin 5.7, hematocrit 17, MCV 93, MCH 30, MCHC 33, RDW 17, platelets 136. Chemistries show sodium 138, potassium 4.0, chloride 106, CO2 23 , BUN 42, creatinine 1.22, GFR 45, glucose 142, calcium 8.7. Imaging: Chest x-ray dated today shows pacemaker leads are in place with some overall vascular congestion. There is cardiomegaly present and some hyperinflated lung baumann with no acute changes from previous. Echocardiogram shows regular rate and rhythm. She is pacing with no ectopy and no acute ST segment changes. ASSESSMENT: Mrs. Galarza is a 57-year-old female patient with multiple comorbidities and multiple hospitalizations this year for acute on chronic heart failure, who is also now presenting with some symptomatic chronic anemia that has turned to be [id number], requiring some advanced care and inpatient admission. DIAGNOSES: 1. Congestive heart failure with acute exacerbation. 2. Symptomatic anemia of chronic disease. 3. Diabetes mellitus type 2. 4. History of coronary artery disease. 5. Peripheral vascular disease. 6. History of cerebrovascular accident. 7. Chronic kidney disease stage 3. 8. Osteomyelitis of the left lower extremity, on chronic antibiotic therapy. 9. Restless legs syndrome. 10. Chronic obstructive pulmonary disease. PLAN: The patient will receive some Lasix right now and we will give her 20 mg IV at this point. She has been crossed and typed for her blood, which is O positive. She will receive 1 unit of blood and then an additional 10 mg of Lasix post- transfusion to offset some of her fluid and volume overload. She will likely get another 10 to 20 mg of Lasix in the morning as well and we will continue to monitor her on telemetry. She is being admitted overnight. We will check her hemoglobin again in the morning. Continue to diurese her as needed until she obtains euvolemic status. If she warrants a second transfusion that will be addressed after we monitor her H and H. We will continue her home medications as listed earlier in this document, also put her on diabetes medications of sliding scale and her long acting. Monitor her kidney function in light of getting some diuretic medication. I suspect some of her anemia can be attributed to her chronic kidney disease as well as her coronary artery disease and also multiple comorbidities at this point. I talked to Dr. Brent Damon about her antibiotic therapy. She will be maintained on linezolid and her aztreonam while she is here. Again, her stump looks clean. She is afebrile and I do believe her osteomyelitis is advancing and she is responding well to her antibiotics. She has been counseled on her diet. She will begin a cardiac diet with low sodium. She does state her understanding of her dietary needs. Does feel that over the holidays, she apparently did not follow her dietary plan. She does not appear to be clinically short of breath secondary to her fluid overload so much as it is her chronic anemia; however, I think these are both co-contributing factors to her current condition. If the patient is stabilized overnight, then we will try to discharge her back to home tomorrow; however, we will continue to monitor her status very closely and get her optimized to get back home as soon as possible. For DVT prophylaxis, she is already on Plavix. I will not add any additional heparin given her low platelets and also her anemia. At this point, she is too high risk for bleeding. She is ambulatory and also has a great risk for skin breakdown, so I do not want put SCDs on her one good leg and she has amputation on the other, so she will be encouraged to ambulate frequently. Also of note, she is a full code, this has been discussed with her and that is her wish. This plan of care has been discussed with Dr. Jolanta Mckinley, who is in agreement with the plan of care and she will be admitted to the floor as soon as a bed is available. Rest of the patient's course will be determined for further diagnostics, laboratories and any other input from other providers as warranted during this admission. NANCI CLAUDIO, VIKRAM [id number]/CPS #: [id number] MTDD
[2017-10-08] MEDS: Aztreonam (*) 1 GM in NS 0.9% 50 ML* 50 ML IVPB SCH ×3 (05:32→21:12)
[2017-10-08] MEDS: Insulin LISPRO* 1 UNITS UNIT SUBCUT SCH ×3 (07:44→17:22)
[2017-10-08] MEDS: Tiotropium CAP.INH* CAP.INH/18 MCG (USE ORDER SET !) INH SCH (07:53)
[2017-10-08] MEDS: Mometasone/Formoter 100/5 MDI INH SCH (07:54)
[2017-10-08 08:03] LABS: Hematocrit 19 % (35-47)
[2017-10-08 08:05] LABS: Hemoglobin 6.4 g/dl (12.0-16.0)
[2017-10-08] MEDS: Aspirin EC Low Dose* 81 MG TAB.EC PO SCH (08:49)
[2017-10-08] MEDS: Metoclopramide TAB* 10 MG PO SCH ×3 (08:49→17:22)
[2017-10-08] MEDS: Linezolid TAB* 600 MG PO SCH ×2 (08:49→20:30)
[2017-10-08] MEDS: Docusate CAP* 100 MG PO SCH ×2 (08:49→20:33)
[2017-10-08] MEDS: Metolazone TAB* 5 MG PO SCH (08:49)
[2017-10-08] MEDS: Clopidogrel TAB* 75 MG PO SCH (08:49)
[2017-10-08] MEDS: Magnesium Oxide TAB* 400 MG PO SCH (08:49)
[2017-10-08] MEDS: Enalapril TAB* 5 MG PO SCH (08:49)
[2017-10-08] MEDS: Isosorbide Dinitrate TAB* 10 MG PO SCH ×3 (08:49→20:30)
[2017-10-08] MEDS: Insulin GLARGINE(*) 1 UNITS UNIT SUBCUT SCH ×2 (08:50→20:48)
[2017-10-08] MEDS ORDERED: Spiriva Inhaler DEVICE* 1 EACH DEVICE INH ONE (09:00)
[2017-10-08] MEDS ORDERED: Furosemide IV* 10 MG/ML 2 ML VIAL (20 MG) IV ONE ×2 (16:55→23:00)
--- NOTE | 2017-10-08 17:11 | PN ---
Subjective Date of Service: 10/08/17 Interval History: Patient seen and examined. Still feels winded and tired, but some improvement over yesterday. Per nurse, had nausea and vomiting with transfusion last night, transfusion was stopped and another was started, infused slower and with no reaction. Denies chest pain, no further complaints. States she still feels somewhat fluid bound. Denies fever fatigue or chills, no n/v/d, at bedside. Objective Active Medications: Albuterol/Ipratropium (Duoneb (Albuterol 2.5 Mg/Ipratropium 0.5 Mg)) 1 neb INH TID PRN PRN Reason: SHORTNESS OF BREATH Aspirin (Aspirin Ec Low Dose*) 81 mg PO QAM [facility] Last Admin: 10/08/17 08:49 Dose: 81 mg Atorvastatin Calcium (Lipitor*) 20 mg PO QPM [facility] Last Admin: 10/07/17 20:47 Dose: 20 mg Clopidogrel Bis[facility]ate ([facility]avix Tab*) [facility] [place] [facility] Admin: 10/08/17 08:49 Dose: 75 mg Dextrose (D50w Syringe 50 Ml*) 12.5 gm IV PUSH .FOR FS < 60 - SS PRN PRN Reason: FS < 60 Docusate Sodium (Colace Cap*) 100 mg PO BID [facility] Last Admin: 10/08/17 08:49 Dose: Not Given Enalapril Maleate (Vasotec Tab*) 2.5 mg PO QAM [facility] Last Admin: 10/08/17 08:49 Dose: 2.5 mg Furosemide (Lasix Iv*) 20 mg IV ONCE ONE Stop: 10/08/17 16:56 Gabapentin (Neurontin Cap(*)) 1,800 mg PO QPM [facility] Last Admin: 10/07/17 20:45 Dose: 1,800 mg Aztreonam 1 gm/ Sodium (Chloride) 50 mls @ 200 mls/hr IVPB Q8H [facility] Stop: 10/09/17 23:59 Last Admin: 10/08/17 13:58 Dose: 200 mls/hr Insulin Glargine (Lantus(*)) 30 units SUBCUT BID [facility] Last Admin: 10/08/17 08:50 Dose: 30 unit Insulin Human Lispro (Humalog*) 0 units SUBCUT AC [facility] PRN Reason: Protocol Stop: 10/09/17 23:59 Last Admin: 10/08/17 12:46 Dose: 2 unit Isosorbide Dinitrate (Isordil Tab*) 10 mg PO TID [facility] Last Admin: 10/08/17 13:58 Dose: 10 mg Linezolid (Zyvox Tab*) 600 mg PO Q12HR [facility] Last Admin: 10/08/17 08:49 Dose: 600 mg Magnesium Oxide (Magox 400 Tab*) 400 mg PO QAM [facility] Last Admin: 10/08/17 08:49 Dose: 400 mg Metoclopramide HCl (Reglan Tab*) 5 mg PO TID WITH MEALS [facility] Last Admin: 10/08/17 12:47 Dose: Not Given Metolazone (Zaroxolyn Tab*) 5 mg PO MoWeFr@0900 [facility] Last Admin: 10/08/17 08:49 Dose: 5 mg Mometasone Furoate/Formoterol Fumar (Dulera 100/5 Mdi*) 2 puff INH QAM [facility] Last Admin: 10/08/17 07:54 Dose: 2 puff Ondansetron HCl (Zofran Inj*) 4 mg IV Q4H PRN PRN Reason: NAUSEA Oxycodone/Acetaminophen (Percocet 5/325 Tab*) 1 tab PO Q4H PRN PRN Reason: PAIN - SEVERE Stop: 10/09/17 23:59 Pramipexole Dihydrochloride (Mirapex Tab*) 5 mg PO BEDTIME [facility] Stop: 10/09/17 23:59 Last Admin: 10/07/17 20:48 Dose: 5 mg Tiotropium [place] (Spiriva Cap.Inh*) 1 cap INH DAILY [facility] Last Admin: 10/08/17 07:53 Dose: 1 cap Vital Signs - 8 hr 10/08/17 10/08/17 11:11 15:18 Temperature 98.2 F 97.8 F Pulse Rate 89 94 Respiratory 18 16 Rate Blood Pressure 136/71 133/76 (mmHg) O2 Sat by Pulse 99 98 Oximetry Oxygen Devices in Use Now: None Appearance: Alert, NAD Eyes: No Scleral Icterus, PERRLA Ears/Nose/Mouth/Throat: NL Teeth, Lips, Gums, Clear Oropharnyx Neck: NL Appearance and Movements; NL JVP, Trachea Midline Respiratory: Symmetrical Chest Expansion and Respiratory Effort, - - fine rales a bilateral bases Cardiovascular: NL Sounds; No Murmurs; No JVD - +2 pitting edema RLE, RRR Abdominal: NL Sounds; No Tenderness; No Distention Extremities: No Clubbing, Cyanosis - Left BKA, dressing CDI Skin: - Neurological: Alert and Oriented x 3, NL Sensation Result Diagrams: 10/08/17 07:24 10/07/17 16:07 Additional Lab and Data: Lab Results 10/07/17 10/07/17 10/07/17 Range/Units 16:07 16:07 16:07 WBC 4.9 (3.5-10.8) 10^3/ul RBC 1.87 L (4.0-5.4) 10^6/ul Hgb 5.7 L* (12.0-16.0) g/dl Hct 17 L (35-47) % MCV 93 (80-97) fL MCH 30 (27-31) pg MCHC 33 (31-36) g/dl RDW 17 H (10.5-15) % Plt Count 136 L (150-450) 10^3/ul MPV 8 (7.4-10.4) um3 Neut % (Auto) 67.8 (38-83) % Lymph % (Auto) 26.5 (25-47) % [place] % (Auto) 1.9 (1-9) % Eos % (Auto) 3.0 (0-6) % Baso % (Auto) 0.8 (0-2) % Absolute Neuts (auto) 3.3 (1.5-7.7) 10^3/ul Absolute Lymphs (auto) 1.3 (1.0-4.8) 10^3/ul Absolute Monos (auto) 0.1 (0-0.8) 10^3/ul Absolute Eos (auto) 0.1 (0-0.6) 10^3/ul Absolute Basos (auto) 0 (0-0.2) 10^3/ul Absolute Nucleated RBC 0.01 10^3/ul Nucleated RBC % 0.1 Sodium 138 (133-145) mmol/L Potassium 4.0 (3.5-5.0) mmol/L Chloride 106 (101-111) mmol/L Carbon Dioxide 23 (22-32) mmol/L Anion Gap 9 (2-11) mmol/L BUN 42 H (6-24) mg/dL Creatinine 1.22 H (0.51-0.95) mg/dL Est GFR ( Amer) 58.6 (>60) Est GFR (Non-Af Amer) 45.6 (>60) BUN/Creatinine Ratio 34.4 H (8-20) Glucose 142 H (70-100) mg/dL Calcium 8.7 (8.6-10.3) mg/dL Blood Type O Positive Antibody Screen Negative Antibody Identification Cancelled Direct Antiglob Test Cancelled Crossmatch See Detail Microbiology and Other Data: Microbiology 10/08/17 00:01 Transfusion Reaction Gram Stain - Final Blood Bag 10/07/17 18:27 Nasal Screen MRSA (PCR)(RYNE) - Final Nasal Mrsa Negative Assess/Plan/Problems-Billing Assessment: This is a 57 year old female patient with hx of acute on chronic HF also presenting with acute, symptomatic anemia requiring transfusion. - Patient Problems (1) Acute on chronic systolic (congestive) heart failure Code(s): I50.23 - ACUTE ON CHRONIC SYSTOLIC (CONGESTIVE) HEART FAILURE SNOMED Code(s): 518991809 Comment: - Continue metolazone daily - Additional lasix IVP now - BNP now - low Na diet - continue home meds - daily weights (2) Amputation of left lower extremity below knee Code(s): Z89.512 - ACQUIRED ABSENCE OF LEFT LEG BELOW KNEE SNOMED Code(s): 792552577622867 Comment: - Monitor drainage - Dressing changes and wound care per protocol (3) Anemia Code(s): D64.9 - ANEMIA, UNSPECIFIED SNOMED Code(s): 591215077 Comment: - Hgb from 5.7 to 6.4 - Normocytic, no s/s acute blood loss, likely AOCD and CKD (per record, bone marrow biopsy showed no MDS) - s/p 1 unit PRBCs - Check H&H now (4) Osteomyelitis Code(s): M86.9 - OSTEOMYELITIS, UNSPECIFIED SNOMED Code(s): 25206363 Comment: - Atbx as per Dr. Damon - Linezolid and Aztreonam - Stable (5) CAD (coronary artery disease) Code(s): I25.10 - ATHSCL HEART DISEASE OF [place] CORONARY ARTERY W/O ANG PCTRS SNOMED Code(s): 19312919 Comment: - s/p stenting and CABG - EF of 35-40% on last ECHO - Continue home med regimen (6) CKD (chronic kidney disease) stage 3, GFR 30-59 ml/min Code(s): N18.3 - CHRONIC KIDNEY DISEASE, STAGE 3 (MODERATE) SNOMED Code(s): 228910209 Comment: - Monitor renal fx while diuresing - GFR 45 10/07 with creatinine of 1.22 - Monitor H&H (7) COPD (chronic obstructive pulmonary disease) Code(s): J44.9 - CHRONIC OBSTRUCTIVE PULMONARY DISEASE, UNSPECIFIED SNOMED Code(s): 73753874 Comment: - Continue Spiriva and Dulera, stable (8) Diabetes mellitus with chronic kidney disease Code(s): E11.22 - TYPE 2 DIABETES MELLITUS W DIABETIC CHRONIC KIDNEY DISEASE SNOMED Code(s): 10691452 Comment: - Continue Lantus and Lispro SS with BG AC and HS (9) HTN (hypertension) Code(s): I10 - ESSENTIAL (PRIMARY) HYPERTENSION SNOMED Code(s): 34344431 Comment: - BP stable (10) Peripheral vascular disease Code(s): I73.9 - PERIPHERAL VASCULAR DISEASE, UNSPECIFIED SNOMED Code(s): 472410713 Comment: - Continue ASA, Plavix and statin Status and Disposition: Remain inpatient for transfusion, diuresis monitoring. Counseling and/or Coordination of Care Minutes: coordinated with patient and staff
[2017-10-08 17:28] LABS: Hematocrit 19 % (35-47); Hemoglobin 6.5 g/dl (12.0-16.0)
[2017-10-08] MEDS: Atorvastatin* 20 MG TAB PO SCH (17:51)
[2017-10-08] MEDS: Gabapentin CAP(*) 300 MG PO SCH (17:51)
[2017-10-08] MEDS ORDERED: Ondansetron INJ* 2 MG/ML VIAL IV ONE (18:03)
[2017-10-08] MEDS: Pramipexole TAB* 0.5 MG PO SCH (20:31)
[2017-10-09] MEDS: Aztreonam (*) 1 GM in NS 0.9% 50 ML* 50 ML IVPB SCH ×3 (05:40→22:43)
[2017-10-09] MEDS: Insulin LISPRO* 1 UNITS UNIT SUBCUT SCH ×3 (07:40→18:19)
[2017-10-09] MEDS: Tiotropium CAP.INH* CAP.INH/18 MCG (USE ORDER SET !) INH SCH (08:26)
[2017-10-09] MEDS: Mometasone/Formoter 100/5 MDI INH SCH (08:26)
[2017-10-09] MEDS: Insulin GLARGINE(*) 1 UNITS UNIT SUBCUT SCH ×2 (09:06→21:23)
[2017-10-09] MEDS: Magnesium Oxide TAB* 400 MG PO SCH (09:18)
[2017-10-09] MEDS: Enalapril TAB* 5 MG PO SCH (09:19)
[2017-10-09] MEDS: Metoclopramide TAB* 10 MG PO SCH ×3 (09:19→16:43)
[2017-10-09] MEDS: Clopidogrel TAB* 75 MG PO SCH (09:19)
[2017-10-09] MEDS: Isosorbide Dinitrate TAB* 10 MG PO SCH ×3 (09:19→21:22)
[2017-10-09] MEDS: Aspirin EC Low Dose* 81 MG TAB.EC PO SCH (09:20)
[2017-10-09] MEDS: Linezolid TAB* 600 MG PO SCH ×2 (09:20→21:22)
[2017-10-09] MEDS: Docusate CAP* 100 MG PO SCH ×2 (09:33→21:21)
--- NOTE | 2017-10-09 10:17 | RAD ---
INDICATION: Anemia. Clinical suspicion for cerebrovascular accident. COMPARISON: Most recent CT of the brain is dated August 09, 2015 TECHNIQUE: Contiguous axial sections of the brain were obtained from the skull base to the vertex without contrast. FINDINGS: The ventricles, cisterns and sulci are within normal limits. Similar to the prior brain there is mild periventricular and subcortical white matter hypoattenuation. At the right rosalee (image 9 of 32) there is a questionable hypoattenuating focus measuring 1.1 cm that was not definitely seen on the most recent CT of the brain. Elsewhere the magana-white matter differentiation is adequately maintained and there is no sulcal effacement. No significant focal abnormality or mass effect is present. There is no evidence for intracranial hemorrhage. No significant focal osseous abnormality is present. The visualized portion of the paranasal sinuses appear clear. The mastoid air cells are well aerated bilaterally. IMPRESSION: 1. There is a highly questionable focus of hypoattenuation involving the right rosalee. This correlates to the patient's neurologic symptomatology then further characterization can be made with MRI of the brain. 2. Evidence of chronic microvascular disease similar in appearance to the prior CT of the brain dated August 09, 2015. Findings were discussed with Nida Claudio NP over the telephone at 1010 hours on October 09, 2017.
[2017-10-09] MEDS: oxyCODONE/Acetamin 5/325 MG* TAB PO PRN ×2 (10:42→22:43)
[2017-10-09 10:43] LABS: ABS Basophils 0 10^3/ul (0-0.2); ABS Eosinophils 0.2 10^3/ul (0-0.6); ABS Lymphocytes 1.1 10^3/ul (1.0-4.8); ABS Monocytes 0.1 10^3/ul (0-0.8); ABS Neutrophils 4.2 10^3/ul (1.5-7.7); ABS Nucleated RBC 0 10^3/ul; Eosinophil % 3.2 % (0-6); Hematocrit 23 % (35-47); Hemoglobin 7.7 g/dl (12.0-16.0); Lymphocyte % 20.1 % (25-47); Mean Corpuscular HGB Conc 34 g/dl (31-36); Mean Corpuscular Hemoglobin 29 pg (27-31); Mean Corpuscular Volume 85 fL (80-97); Mean Platelet Volume 8 um3 (7.4-10.4); Nucleated Red Blood Cells % 0; Platelet Count 129 10^3/ul (150-450); Red Blood Count 2.67 10^6/ul (4.0-5.4); Red Cell Distribution Width 21 % (10.5-15); White Blood Count 5.7 10^3/ul (3.5-10.8)
--- NOTE | 2017-10-09 10:45 | PN ---
Subjective Date of Service: 10/09/17 Interval History: Called to bedside for exam. Per RN, Patient states she started having left sided weakness with tingling in LUE and headache and dizziness approx 20 minutes prior. Upon exam, patient is significantly weaker on left side with a drift. Aziza Diaz called, Dr. Kezia Gomes at bedside for neuro eval. CT scan shows area of hypoattenuation in the right rosalee with no hemorrhage. VS remained stable throughout episode. Objective Active Medications: Albuterol/Ipratropium (Duoneb (Albuterol 2.5 Mg/Ipratropium 0.5 Mg)) 1 neb INH TID PRN PRN Reason: SHORTNESS OF BREATH Aspirin (Aspirin Ec Low Dose*) 81 mg PO QAM [facility] Last Admin: 10/09/17 09:20 Dose: 81 mg Atorvastatin Calcium (Lipitor*) 20 mg PO QPM [facility] Last Admin: 10/08/17 17:51 Dose: 20 mg Clopidogrel Bisulfate (Plavix Tab*) 75 mg PO QAM [facility] Last Admin: 10/09/17 09:19 Dose: 75 mg Dextrose (D50w Syringe 50 Ml*) 12.5 gm IV PUSH .FOR FS < 60 - SS PRN PRN Reason: FS < 60 Docusate Sodium (Colace Cap*) 100 mg PO BID [facility] Last Admin: 10/09/17 09:33 Dose: Not Given Enalapril Maleate (Vasotec Tab*) 2.5 mg PO QAM [facility] Last Admin: 10/09/17 09:19 Dose: 2.5 mg Gabapentin (Neurontin Cap(*)) 1,800 mg PO QPM [facility] Last Admin: 10/08/17 17:51 Dose: 1,800 mg Aztreonam 1 gm/ Sodium (Chloride) 50 mls @ 200 mls/hr IVPB Q8H [facility] Stop: 10/09/17 23:59 Last Admin: 10/09/17 05:40 Dose: 200 mls/hr Insulin Glargine (Lantus(*)) 30 units SUBCUT BID [facility] Last Admin: 10/09/17 09:06 Dose: Not Given Insulin Human Lispro (Humalog*) 0 units SUBCUT AC [facility] PRN Reason: Protocol Stop: 10/09/17 23:59 Last Admin: 10/09/17 07:40 Dose: Not Given Isosorbide Dinitrate (Isordil Tab*) 10 mg PO TID [facility] Last Admin: 10/09/17 09:19 Dose: 10 mg Linezolid (Zyvox Tab*) 600 mg PO Q12HR [facility] Last Admin: 10/09/17 09:20 Dose: 600 mg Magnesium Oxide (Magox 400 Tab*) 400 mg PO QAM [facility] Last Admin: 10/09/17 09:18 Dose: 400 mg Metoclopramide HCl (Reglan Tab*) 5 mg PO TID WITH MEALS [facility] Last Admin: 10/09/17 09:19 Dose: 5 mg Metolazone (Zaroxolyn Tab*) 5 mg PO MoWeFr@0900 [facility] Last Admin: 10/08/17 08:49 Dose: 5 mg Mometasone Furoate/Formoterol Fumar (Dulera 100/5 Mdi*) 2 puff INH QAM [facility] Last Admin: 10/09/17 08:26 Dose: 2 puff Ondansetron HCl (Zofran Inj*) 4 mg IV Q4H PRN PRN Reason: NAUSEA Oxycodone/Acetaminophen (Percocet 5/325 Tab*) 1 tab PO Q4H PRN PRN Reason: PAIN - SEVERE Stop: 10/09/17 23:59 Pramipexole Dihydrochloride (Mirapex Tab*) 5 mg PO BEDTIME [facility] Stop: 10/09/17 23:59 Last Admin: 10/08/17 20:31 Dose: 5 mg Tiotropium [place] (Spiriva Cap.Inh*) 1 cap INH DAILY [facility] Last Admin: 10/09/17 08:26 Dose: 1 cap Vital Signs - 8 hr 10/09/17 10/09/17 10/09/17 04:01 07:34 07:35 Temperature 97.4 F 97.7 F Pulse Rate 89 92 Respiratory 20 18 20 Rate Blood Pressure 125/60 124/74 (mmHg) O2 Sat by Pulse 99 100 Oximetry 10/09/17 09:47 Temperature Pulse Rate Respiratory 20 Rate Blood Pressure 156/82 (mmHg) O2 Sat by Pulse 98 Oximetry Oxygen Devices in Use Now: Nasal Cannula Appearance: Fatigued but alert and appropriate Eyes: No Scleral Icterus, PERRLA Ears/Nose/Mouth/Throat: NL Teeth, Lips, Gums, Mucous Membranes Moist Neck: NL Appearance and Movements; NL JVP, Trachea Midline Respiratory: Symmetrical Chest Expansion and Respiratory Effort, - - diminished bases, rales improved Cardiovascular: NL Sounds; No Murmurs; No JVD, RRR Extremities: - - edema improved RLE Skin: No Rash or Ulcers Neurological: NL Sensation, - - 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, LLE weaker than right, face symmetric Result Diagrams: 10/09/17 09:28 10/07/17 16:07 Additional Lab and Data: Lab Results 10/07/17 10/07/17 10/07/17 Range/Units 16:07 16:07 16:07 WBC 4.9 (3.5-10.8) 10^3/ul RBC 1.87 L (4.0-5.4) 10^6/ul Hgb 5.7 L* (12.0-16.0) g/dl Hct 17 L (35-47) % MCV 93 (80-97) fL MCH 30 (27-31) pg MCHC 33 (31-36) g/dl RDW 17 H (10.5-15) % Plt Count 136 L (150-450) 10^3/ul MPV 8 (7.4-10.4) um3 Neut % (Auto) 67.8 (38-83) % Lymph % (Auto) 26.5 (25-47) % [place] % (Auto) 1.9 (1-9) % Eos % (Auto) 3.0 (0-6) % Baso % (Auto) 0.8 (0-2) % Absolute Neuts (auto) 3.3 (1.5-7.7) 10^3/ul Absolute Lymphs (auto) 1.3 (1.0-4.8) 10^3/ul Absolute Monos (auto) 0.1 (0-0.8) 10^3/ul Absolute Eos (auto) 0.1 (0-0.6) 10^3/ul Absolute Basos (auto) 0 (0-0.2) 10^3/ul Absolute Nucleated RBC 0.01 10^3/ul Nucleated RBC % 0.1 Sodium 138 (133-145) mmol/L Potassium 4.0 (3.5-5.0) mmol/L Chloride 106 (101-111) mmol/L Carbon Dioxide 23 (22-32) mmol/L Anion Gap 9 (2-11) mmol/L BUN 42 H (6-24) mg/dL Creatinine 1.22 H (0.51-0.95) mg/dL Est GFR ( Amer) 58.6 (>60) Est GFR (Non-Af Amer) 45.6 (>60) BUN/Creatinine Ratio 34.4 H (8-20) Glucose 142 H (70-100) mg/dL Calcium 8.7 (8.6-10.3) mg/dL Blood Type O Positive Antibody Screen Negative Antibody Identification Cancelled Direct Antiglob Test Cancelled Crossmatch See Detail Microbiology and Other Data: Microbiology 10/08/17 00:01 Transfusion Reaction Gram Stain - Final Blood Bag 10/07/17 18:27 Nasal Screen MRSA (PCR)(RYNE) - Final Nasal Mrsa Negative Diagnostic Imaging: Patient Name: DAVID MESA Medical Record#: [id number] Ordering Physician: Nida Claudio NP Acct.#: [id number] : 1960 Age: 57 Sex: F Location: [address] [place] [address] MEDICAL/TELEMETRY Exam Date: 10/09/17948 ADM Status: ADM IN Order Information: CT BRAIN WO Accession Number: [id number] CPT: 12825 INDICATION: Anemia. Clinical suspicion for cerebrovascular accident. COMPARISON: Most recent CT of the brain is dated August 09, 2015 TECHNIQUE: Contiguous axial sections of the brain were obtained from the skull base to the vertex without contrast. FINDINGS: The ventricles, cisterns and sulci are within normal limits. Similar to the prior brain there is mild periventricular and subcortical white matter hypoattenuation. At the right rosalee (image 9 of 32) there is a questionable hypoattenuating focus measuring 1.1 cm that was not definitely seen on the most recent CT of the brain. Elsewhere the diaz-white matter differentiation is adequately maintained and there is no sulcal effacement. No significant focal abnormality or mass effect is present. There is no evidence for intracranial hemorrhage. No significant focal osseous abnormality is present. The visualized portion of the paranasal sinuses appear clear. The mastoid air cells are well aerated bilaterally. IMPRESSION: 1. There is a highly questionable focus of hypoattenuation involving the right rosalee. This correlates to the patient's neurologic symptomatology then further characterization can be made with MRI of the brain. 2. Evidence of chronic microvascular disease similar in appearance to the prior CT of the brain dated August 09, 2015. Findings were discussed with Nida Claudio NP over the telephone at 1010 hours on October 09, 2017. <Electronically signed by Graham Zavala MD in OV> 10/09/17 1013 Dictated By: Graham Zavala MD Dictated Date/Time: 10/09/17 1013 Transcribed Date/Time: 10/09/17 1000 Copy to: CC:Jolanta Mckinley DO; Nida Claudio NP; Gurvinder Proctor MD; Moises Valdes III, MD Imaging - [facility] Imaging - [facility] [address] 1 of Assess/Plan/Problems-Billing Assessment: This is a 57 year old female patient with hx of acute on chronic HF, symptomatic anemia, IDDM and now presenting with what may be acute CVA. - Patient Problems (1) Acute on chronic systolic (congestive) heart failure Code(s): I50.23 - ACUTE ON CHRONIC SYSTOLIC (CONGESTIVE) HEART FAILURE SNOMED Code(s): 370792169 Comment: - Continue metolazone daily - Hold lasix today - Continue home meds - Daily weights - Low Na diet - Respiratory status improved (2) Amputation of left lower extremity below knee Code(s): Z89.512 - ACQUIRED ABSENCE OF LEFT LEG BELOW KNEE SNOMED Code(s): 756401002463665 Comment: - Monitor drainage - Dressing changes and wound care per protocol (3) Anemia Code(s): D64.9 - ANEMIA, UNSPECIFIED SNOMED Code(s): 264567759 Comment: - H&H improved to 7.7/23 - Normocytic, no s/s acute blood loss, likely AOCD and CKD (per record, bone marrow biopsy showed no MDS) - s/p 2 units PRBCs (4) Osteomyelitis Code(s): M86.9 - OSTEOMYELITIS, UNSPECIFIED SNOMED Code(s): 07134721 Comment: - Atbx as per Dr. Damon - Linezolid and Aztreonam - Stable (5) CAD (coronary artery disease) Code(s): I25.10 - ATHSCL HEART DISEASE OF [place] CORONARY ARTERY W/O ANG PCTRS SNOMED Code(s): 80489740 Comment: - s/p stenting and CABG, AICD/PM - EF of 35-40% on last ECHO - Continue home med regimen (6) CKD (chronic kidney disease) stage 3, GFR 30-59 ml/min Code(s): N18.3 - CHRONIC KIDNEY DISEASE, STAGE 3 (MODERATE) SNOMED Code(s): 242622191 Comment: - CMP pending today, monitor renal function in antipation of CTA today - H&H improved (7) COPD (chronic obstructive pulmonary disease) Code(s): J44.9 - CHRONIC OBSTRUCTIVE PULMONARY DISEASE, UNSPECIFIED SNOMED Code(s): 21229544 Comment: - Continue Spiriva and Dulera, stable (8) Diabetes mellitus with chronic kidney disease Code(s): E11.22 - TYPE 2 DIABETES MELLITUS W DIABETIC CHRONIC KIDNEY DISEASE SNOMED Code(s): 67854113 Comment: - Continue Lantus and Lispro SS with BG AC and HS - Hold long acting, BG was 53 this am (9) HTN (hypertension) Code(s): I10 - ESSENTIAL (PRIMARY) HYPERTENSION SNOMED Code(s): 39579004 Comment: - BP stable (10) Peripheral vascular disease Code(s): I73.9 - PERIPHERAL VASCULAR DISEASE, UNSPECIFIED SNOMED Code(s): 568645055 Comment: - Continue ASA, Plavix and statin (11) CVA (cerebral vascular accident) Code(s): I63.9 - CEREBRAL INFARCTION, UNSPECIFIED SNOMED Code(s): 648818086 Comment: - Acute changes in right rosalee per CT scan - Had bilateral carotid endarterectomies in the past - Not a candidate for TPA - Pending CTA head and neck - Cannot MRI 2/2 AICD/PM - Continue ASA/Plavix/statin - Appreciate further recs from neuro - Continue supportive care Status and Disposition: Remain inpatient now for acute CVA. Counseling and/or Coordination of Care Minutes: Coordinated with patient, staff and Dr. Gomes
[2017-10-09] MEDS ORDERED: Iodixanol* (CONTRAST) 320 MG/ML 100 ML SDV IV ONE (10:49)
[2017-10-09 11:01] LABS: EGFR Non-African American 43.1 (>60)
--- NOTE | 2017-10-09 12:32 | RAD ---
CPT II: CPT II Codes: 3100F INDICATION: Altered mental status in a vasculopath COMPARISON: Same day CT of the brain that demonstrated questionable hypoechoic attenuating focus in the right rosalee TECHNIQUE: A CT angiogram of the head and neck was performed with 80 cc of Visipaque 320. Contiguous axial sections were obtained from the thoracic inlet through the [place]. Images were reconstructed in the sagittal, coronal planes and in a 3-D volume rendered format. The distal cervical internal carotid artery diameter is used as the denominater for stenosis measurement. CTA NECK: There is a stent in the distal most portion of the right common carotid artery that appears to be adequately patent. The left common carotid artery is adequately patent. Right: The right common carotid artery stent extends into the proximal most portion of the right internal carotid artery. There is narrowing of the stent at the level of the carotid bifurcation measuring 2 mm in diameter. More inferiorly the lumen of the stent measures 3 mm. This indicates at least a 33% degree stenosis spanning the stent. Left: Low the carotid bifurcation the left common carotid artery measures 6 mm in diameter in the internal carotid artery measures 6 mm in diameter just beyond the bifurcation indicating 0% degree stenosis. The vertebral arteries are patent without gross abnormality. CTA of the brain: The internal carotid, anterior and middle cerebral arteries appear are patent without high grade stenosis or occlusion. There is coarse atherosclerotic calcification at the petrous carotid arteries bilaterally. The vertebral, basilar and posterior cerebral arteries appear patent without high grade stenosis or occlusion. The left posterior communicating artery appears to be absent causing the [place] to be incomplete. No focal luminal filling defect, aneurysm or vascular malformation is seen. NON-ARTERIAL FINDINGS: The hypoattenuation seen at the right rosalee is not seen on this examination. There are small bibasilar pleural effusions. Postoperative findings include a right internal jugular vein Mediport, left cardiac pacemaker and sternotomy wires. IMPRESSION: 1. There is narrowing at the right carotid artery stent as it spans the bifurcation indicating a 33% degree stenosis. Determination of patency will require ultrasound as attenuation artifact from the metallic struts makes CT imaging slightly unreliable. 2. No abrupt filling defects or other focal abnormality of the cervical or intracranial arteries.
--- NOTE | 2017-10-09 13:54 | CONS ---
ADDENDUM: CONSULTATION REPORT: IMPRESSION: Given that her CT scan appears to show some acute to subacute changes, she is not a candidate for tPA. We are getting a stat BMP since she has been undergoing diuresis here to check on her kidney function. We are going to proceed with a CTA of the head and neck to evaluate for any large vessel occlusion which may require a higher level of care. If this is negative , then she can remain in the hospital on frequent neuro checks. Her goal MAPs are between 80 and 120. She may be suffering a lacunar infarction given the apparent distribution evident on the CT scan in the rosalee. Unfortunately, she is unable to undergo MRI for further characterization secondary to her pacemaker. At this point, I would continue her on aspirin and Plavix. We may want to repeat another CAT scan in a day or two to better confirm whether the area seen on today's CAT scan is indeed developing area of ischemia. She should remain on telemetry for detection of any occult atrial fibrillation, though she denies any previous history of this. If her fasting lipid profile has not been checked recently and also a hemoglobin A1c then we should have this done as well. She should also have a repeat TTE since this has not been checked since June and she has known significant cardiac disease, to assess for any thrombus. Thank you for this consultation. [id number]/[facility] #: [id number] ABNER
--- NOTE | 2017-10-09 14:52 | CONS ---
CONTINUATION ADDENDUM NOW INCLUDED ON THIS REPORT NEUROLOGY CONSULTATION: DATE OF CONSULT: 10/09/17 REQUESTING PROVIDER: Nida Claudio NP. REASON FOR CONSULT: Aziza magana. HISTORY OF PRESENT ILLNESS: Michelle Galarza is a 57-year-old woman with extensive vascular risk factors and past medical history including type 2 diabetes with insulin dependence; coronary artery disease, status post bypass; carotid artery disease, status post endarterectomy; hypertension; hyperlipidemia , who has been admitted since 10/07/17 for fluid overload and symptomatic anemia. 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 As an outpatient, she went for blood work and was found to have a hemoglobin of 5.7. It is felt that this anemia is secondary to chronic disease and her infection, as there has been no active source of bleeding identified. The patient reports that she was essentially at her current baseline this morning when she was sitting up in bed and began to feel somewhat dizzy and started to develop a headache. She also developed a "funny" feeling in her left arm, which she describes as numbness as well as some weakness. Nida Claudio evaluated her and was concerned for acute stroke and activated stroke code. On my evaluation, the patient reported blurry vision, but no clear visual cut or doubling of her vision. She reported headache as well as still feeling some dizziness and primarily symptoms in her left arm, which she described as feeling heavy and numb. She has reportedly had a TIA 2 to 3 years ago and in review of the records, Dr. Woodward saw her in July 2015 when she presented with dysarthria as well as right facial numbness, left arm numbness and weakness and at that time was found to have significant critical stenosis of her right carotid artery and was transferred to [place] for further care at that time. After her evaluation on the floor, she was sent for a stat CT scan, which showed some potential concerning acute changes in her right rosalee and therefore she was not considered a candidate for tPA, though the time of onset of these symptoms were approximately 9:25 a.m. and the stroke code was activated at approximately 9:45 a.m. PAST MEDICAL HISTORY: Type 2 diabetes, insulin dependent; coronary artery disease, status post stenting and CABG; peripheral vascular disease; chronic kidney disease stage III; history of TIA; hypertension; hyperlipidemia; chronic osteomyelitis of the left lower extremity; peripheral neuropathy; restless leg syndrome; chronic diastolic heart failure; chronic anemia of chronic disease, COPD. PAST SURGICAL HISTORY: CABG, multiple stents including cardiac, progressive amputations of the left lower extremity now resulting in [id number] amputation, appendectomy, cholecystectomy, tonsillectomy, laminectomy, carotid endarterectomies, and pacemaker with AICD placement approximately a year ago. HOME MEDICATIONS: 1. Lantus 30 units at night. 2. Dulera 1 puff 2 times a day. 3. Baby aspirin 81 mg daily. 4. Demadex 20 mg daily. 5. Mirapex 5 mg q.h.s. 6. Neurontin 1800 mg daily. 7. DuoNebs 3 times a day as needed. 8. Nitroglycerin 0.4 mg as needed. 9. Spiriva 1 capsule daily. 10. Repatha 140 mg subcu every 2 weeks. 11. Enalapril 5 mg daily. 12. Atorvastatin 20 mg daily. 13. MiraLAX as needed. 14. Percocet 1 tab every 4 hours as needed. 15. Linezolid 600 mg daily. 16. Aztreonam 1 g q.8 hours. 17. Plavix 75 mg daily. 18. Colace 100 mg 2 times daily as needed. 19. Enalapril 2.5 mg daily. 20. Isosorbide dinitrate 10 mg 3 times a day. 21. Magnesium oxide 400 mg daily. 22. Reglan 5 mg 3 times a day with meals. 23. Metolazone 5 mg p.o. Wednesday, Wednesdays, and Fridays. ALLERGIES: Include multiple allergies to CEPHALOSPORINS, PENICILLIN, SULFA DRUGS , BEE STINGS, BENADRYL, MEROPENEM, VANCOMYCIN, and CODEINE. FAMILY HISTORY: The patient is adopted. SOCIAL HISTORY: She is a former smoker, but had a significant smoking history in the past. She denies alcohol use. Lives with her and is disabled. REVIEW OF SYSTEMS: As per the HPI. PHYSICAL EXAMINATION: Vital Signs: Temperature at 7:35 this morning was 97.7, blood pressure at the time of the code magana was 156/82, heart rate 92, oxygen saturation 98% on room air. On the patient's initial NIH stroke scale, she scored a 9. She scored 1 point for level of consciousness, 1 point for visual baumann, 1 point for facial palsy , 1 point of right and left arm each, 2 points for the left leg and 1 point for the right leg, and 1 point for sensory. On general examination, she appeared slightly drowsy, but was easily arousable to voice. Her heart is in a regular rate and rhythm with a soft systolic ejection murmur. There is a carotid bruit on the right, no bruit auscultated on the left. She appears chronically ill. Her lungs are clear anteriorly to auscultation. She has a cabom-ibx-rpmd amputation on the left with intact Kishor bandage with no obvious drainage. On neurologic examination, she easily arouses to voice but can drift off to sleep if not stimulated. She is fully oriented. There is no obvious dysarthria or aphasia. Her naming and repetition was intact. She is able to follow cross-body commands. Pupils were equal, round, and reactive from 4 to 2 mm bilaterally. Her versions were intact with no gaze palsy, but she did have nystagmus on right horizontal gaze. Her visual field testing was a little inconsistent and initially she seemed to not perceive stimuli in the left lower quadrant. While on a subsequent evaluation, she did not seem to perceive stimuli in the left upper quadrant, but there was no consistent extinction to double simultaneous stimulation. Facial sensation was diminished to pinprick primarily in the left V1 distribution though she also endorsed diminished pinprick sensation in both of the right and left V3 distributions. She seemed to have a slight lower left facial droop, but equal activation with smile and cheek puff. Hearing was intact to voice. The palate elevates symmetrically and the tongue is midline. Her shoulder shrug was symmetric. On motor examination, she had inconsistent effort in direct manual muscle testing in all extremities, but worse on the left. When testing pronator drift, her arm drifted, but did not pronate on the left. She indicated that there was pain when testing both upper extremities manually and that both lower extremities felt heavy, but again she was weaker on the left side. She did not sense pinprick in the left upper extremity above the elbow at all. She was able to sense pinprick on the left lower extremity, but it was diminished compared to the right. There was no ataxia on [id number] testing. She was not ambulated. LABORATORY DATA/DIAGNOSTIC STUDIES: CMP on 10/07/17 showed BUN of 42 and a creatinine of 1.22. Her CBC on admission showed hemoglobin of 5.7 and hematocrit of 17. Today, her hemoglobin is 6.5 and hematocrit is 19. She has received 2 units of packed red blood cells. Her platelets were 136 on admission , have not been rechecked. There are no coagulation studies available. Her brain CT was personally reviewed and compared to a brain CT from July 2015, which is the most recent study available and does appear to show concerning area of hypodensity in the right paramedian rosalee and possibly in the right cerebral peduncle, which appears to be new compared to July 2015 study. There is no hyperdense signs noted within the arterial circulation on this study. There is no evidence of hemorrhage. IMPRESSION: Michelle Galarza is a 57-year-old woman with multiple medical problems and multiple vascular risk factors, who is admitted for symptomatic anemia, which is thought to be secondary to chronic disease as well as fluid overload who this morning developed left-sided weakness as well as sensory symptoms and questionable visual field deficits. Though she reports the onset of symptoms at approximately 9:20 this morning, her CAT scan appears to show some acute changes. Given that her CT scan appears to show some acute to subacute changes in the brainstem, she is not a candidate for tPA. We are getting a stat BMP since she has been undergoing diuresis here to check on her kidney function. We are going to proceed with a CTA of the head and neck to evaluate for any large vessel occlusion which may require a higher level of care. If this is negative, then she can remain in the hospital on frequent neuro checks. Her goal MAPs are between 80 and 120. She may be suffering a lacunar infarction given the apparent distribution evident on the CT scan in the rosalee. Unfortunately, she is unable to undergo MRI for further characterization secondary to her pacemaker. At this point, I would continue her on aspirin and Plavix. We may want to repeat another CAT scan in a day or two to better confirm whether the area seen on today's CAT scan is indeed developing area of ischemia. She should remain on telemetry for detection of any occult atrial fibrillation, though she denies any previous history of this. If her fasting lipid profile has not been checked recently and also a hemoglobin A1c then we should have this done as well. She should also have a repeat TTE since this has not been checked since June and she has known significant cardiac disease, to assess for any thrombus. Thank you for this consultation. [id number]/[facility] #: [id number] Robert- [id number]/[facility] #: [id number] ABNER
[2017-10-09] MEDS: Atorvastatin* 20 MG TAB PO SCH (18:20)
[2017-10-09] MEDS: Gabapentin CAP(*) 300 MG PO SCH (18:20)
[2017-10-09] MEDS: Pramipexole TAB* 0.5 MG PO SCH (21:22)
[2017-10-09] MEDS: Nystatin TOP POWDER* 15 GM BTL TOPICAL SCH (21:23)
--- NOTE | 2017-10-09 23:23 | PN ---
Hospitalist Progress Note Date of Service: 10/09/17 Called by nurse because of worsening left arm weakness. Known stroke in progress on ASA/Plavix/Statin MAP acceptable - asked for her head to be lowered as much as she can tolerate. gentle IVF, but very careful because of h/o CHF. watching carefully. .
[2017-10-10] MEDS: Docusate CAP* 100 MG PO SCH ×2 (08:10→21:03)
[2017-10-10] MEDS: Mometasone/Formoter 100/5 MDI INH SCH (09:15)
[2017-10-10] MEDS: Tiotropium CAP.INH* CAP.INH/18 MCG (USE ORDER SET !) INH SCH (09:16)
[2017-10-10 09:51] LABS: ABS Basophils 0.1 10^3/ul (0-0.2); ABS Eosinophils 0.2 10^3/ul (0-0.6); ABS Lymphocytes 1.2 10^3/ul (1.0-4.8); ABS Monocytes 0.1 10^3/ul (0-0.8); ABS Neutrophils 4.1 10^3/ul (1.5-7.7); ABS Nucleated RBC 0 10^3/ul; Eosinophil % 2.9 % (0-6); Hematocrit 21 % (35-47); Hemoglobin 7.1 g/dl (12.0-16.0); Lymphocyte % 21.3 % (25-47); Mean Corpuscular HGB Conc 34 g/dl (31-36); Mean Corpuscular Hemoglobin 29 pg (27-31); Mean Corpuscular Volume 86 fL (80-97); Mean Platelet Volume 8 um3 (7.4-10.4); Nucleated Red Blood Cells % 0; Platelet Count 110 10^3/ul (150-450); Red Blood Count 2.46 10^6/ul (4.0-5.4); Red Cell Distribution Width 20 % (10.5-15); White Blood Count 5.6 10^3/ul (3.5-10.8)
[2017-10-10 10:09] LABS: EGFR Non-African American 25.5 (>60)
[2017-10-10] MEDS: Enalapril TAB* 5 MG PO SCH (10:14)
[2017-10-10] MEDS: Magnesium Oxide TAB* 400 MG PO SCH (10:14)
[2017-10-10] MEDS: Isosorbide Dinitrate TAB* 10 MG PO SCH ×3 (10:14→21:10)
[2017-10-10] MEDS: Insulin GLARGINE(*) 1 UNITS UNIT SUBCUT SCH (10:14)
[2017-10-10] MEDS: Metoclopramide TAB* 10 MG PO SCH ×3 (10:14→15:21)
[2017-10-10] MEDS: Clopidogrel TAB* 75 MG PO SCH (10:20)
[2017-10-10] MEDS ORDERED: Acetaminophen SUPP* 650 MG SUPP PR PRN (10:41)
[2017-10-10] MEDS ORDERED: Phenol 1.4% Spray* 177 ML BTL MT PRN (10:42)
--- NOTE | 2017-10-10 10:50 | PN ---
Subjective Date of Service: 10/10/17 Interval History: Patient seen and examined. Feeling sore throat today and difficulty swallowing. Requested nurse to do bedside swallow evaluation. Patient coughing during exam and stating she is unable to swallow, question if mechanical and/or secondary to pain? Also states her tongue feels big. Has occipital headache, denies chest pain, no SOB, no n/v, no dizziness. Numbness and pain still in left hand. Objective Active Medications: Acetaminophen (Tylenol Supp*) 650 mg VA Q6H PRN PRN Reason: FEVER/HEADACHE Albuterol/Ipratropium (Duoneb (Albuterol 2.5 Mg/Ipratropium 0.5 Mg)) 1 neb INH TID PRN PRN Reason: SHORTNESS OF BREATH Aspirin (Aspirin Low Dose Tab*) 81 mg PO DAILY [facility] Atorvastatin Calcium (Lipitor*) 20 mg PO QPM [facility] Last Admin: 10/09/17 18:20 Dose: 20 mg Clopidogrel [facility]ate ([facility]ix Tab*) [facility] [place] Admin: 10/10/17 10:20 Dose: Not Given Dextrose (D50w Syringe 50 Ml*) 12.5 gm IV PUSH .FOR FS < 60 - SS PRN PRN Reason: FS < 60 Docusate Sodium (Colace Cap*) 100 mg PO BID [facility] Last Admin: 10/10/17 08:10 Dose: Not Given Enalapril Maleate (Vasotec Tab*) [facility] [place] Admin: 10/10/17 10:14 Dose: Not Given Gabapentin (Neurontin Cap(*)) 1,800 mg PO QPM [facility] Last Admin: 10/09/17 18:20 Dose: 1,800 mg Aztreonam 1 gm/ Sodium (Chloride) 50 mls @ 200 mls/hr IVPB Q8H [facility] Dextrose/Sodium Chloride (D5w 1/2 Ns 1000 Ml Bag*) 1,000 mls @ 75 mls/hr IV PER RATE [facility] Isosorbide Dinitrate (Isordil Tab*) 10 mg PO TID [facility] Last Admin: 10/10/17 10:14 Dose: Not Given Linezolid (Zyvox Tab*) 600 mg PO Q12HR [facility] Last Admin: 10/09/17 21:22 Dose: 600 mg Magnesium Oxide (Magox 400 Tab*) 400 mg PO QAM [facility] Last Admin: 10/10/17 10:14 Dose: Not Given Metoclopramide HCl (Reglan Tab*) 5 mg PO TID WITH MEALS [facility] Last Admin: 10/10/17 10:14 Dose: Not Given Metolazone (Zaroxolyn Tab*) 5 mg PO MoWeFr@0900 [facility] Last Admin: 10/08/17 08:49 Dose: 5 mg Mometasone Furoate/Formoterol Fumar (Dulera 100/5 Mdi*) 2 puff INH QAM [facility] Last Admin: 10/10/17 09:15 Dose: Not Given Nystatin (Nystatin Top Powder*) 1 applic TOPICAL BID [facility] Last Admin: 10/09/17 21:23 Dose: 1 applic Ondansetron HCl (Zofran Inj*) 4 mg IV Q4H PRN PRN Reason: NAUSEA Phenol/Menthol (Chloroseptic Throat [place]*) 1 spray MT TID PRN PRN Reason: SORE THROAT Tiotropium Call (Spiriva Cap.Inh*) 1 cap INH DAILY [facility] Last Admin: 10/10/17 09:16 Dose: Not Given Vital Signs - 8 hr 10/10/17 10/10/17 04:04 08:04 Temperature 97.6 F 97.8 F Pulse Rate 84 81 Respiratory 20 16 Rate Blood Pressure 114/59 127/76 (mmHg) O2 Sat by Pulse 96 98 Oximetry Oxygen Devices in Use Now: None Appearance: Tearful, tired Eyes: No Scleral Icterus, PERRLA Ears/Nose/Mouth/Throat: - - edentulous, mild erythema to oropharynx, toungue midline, no swelling or edema noted, no exudate noted Neck: Trachea Midline Respiratory: Symmetrical Chest Expansion and Respiratory Effort, Clear to Auscultation Cardiovascular: RRR Extremities: No Clubbing, Cyanosis - left BKA, sutures intact, mild drainage, no erythema Skin: No Rash or Ulcers Neurological: Alert and Oriented x 3 Nutrition: - - no gag, unable to swallow Result Diagrams: 10/10/17 09:25 10/10/17 09:25 Additional Lab and Data: Lab Results 10/07/17 10/07/17 10/07/17 Range/Units 16:07 16:07 16:07 WBC 4.9 (3.5-10.8) 10^3/ul RBC 1.87 L (4.0-5.4) 10^6/ul Hgb 5.7 L* (12.0-16.0) g/dl Hct 17 L (35-47) % MCV 93 (80-97) fL MCH 30 (27-31) pg MCHC 33 (31-36) g/dl RDW 17 H (10.5-15) % Plt Count 136 L (150-450) 10^3/ul MPV 8 (7.4-10.4) um3 Neut % (Auto) 67.8 (38-83) % Lymph % (Auto) 26.5 (25-47) % [place] % (Auto) 1.9 (1-9) % Eos % (Auto) 3.0 (0-6) % Baso % (Auto) 0.8 (0-2) % Absolute Neuts (auto) 3.3 (1.5-7.7) 10^3/ul Absolute Lymphs (auto) 1.3 (1.0-4.8) 10^3/ul Absolute Monos (auto) 0.1 (0-0.8) 10^3/ul Absolute Eos (auto) 0.1 (0-0.6) 10^3/ul Absolute Basos (auto) 0 (0-0.2) 10^3/ul Absolute Nucleated RBC 0.01 10^3/ul Nucleated RBC % 0.1 Sodium 138 (133-145) mmol/L Potassium 4.0 (3.5-5.0) mmol/L Chloride 106 (101-111) mmol/L Carbon Dioxide 23 (22-32) mmol/L Anion Gap 9 (2-11) mmol/L BUN 42 H (6-24) mg/dL Creatinine 1.22 H (0.51-0.95) mg/dL Est GFR ( Amer) 58.6 (>60) Est GFR (Non-Af Amer) 45.6 (>60) BUN/Creatinine Ratio 34.4 H (8-20) Glucose 142 H (70-100) mg/dL Calcium 8.7 (8.6-10.3) mg/dL Blood Type O Positive Antibody Screen Negative Antibody Identification Cancelled Direct Antiglob Test Cancelled Crossmatch See Detail Microbiology and Other Data: Microbiology 10/08/17 00:01 Transfusion Reaction Gram Stain - Final Blood Bag 10/07/17 18:27 Nasal Screen MRSA (PCR)(RYNE) - Final Nasal Mrsa Negative Diagnostic Imaging: Patient Name: DAVID MESA Medical Record#: [id number] Ordering Physician: Nida Claudio NP Acct.#: [id number] : 1960 Age: 57 Sex: F Location: [address] [place] [address] MEDICAL/TELEMETRY Exam Date: 10/09/1749 ADM Status: ADM IN Order Information: CT BRAIN WO Accession Number: [id number] CPT: 99743 INDICATION: Anemia. Clinical suspicion for cerebrovascular accident. COMPARISON: Most recent CT of the brain is dated August 09, 2015 TECHNIQUE: Contiguous axial sections of the brain were obtained from the skull base to the vertex without contrast. FINDINGS: The ventricles, cisterns and sulci are within normal limits. Similar to the prior brain there is mild periventricular and subcortical white matter hypoattenuation. At the right rosalee (image 9 of 32) there is a questionable hypoattenuating focus measuring 1.1 cm that was not definitely seen on the most recent CT of the brain. Elsewhere the magana-white matter differentiation is adequately maintained and there is no sulcal effacement. No significant focal abnormality or mass effect is present. There is no evidence for intracranial hemorrhage. No significant focal osseous abnormality is present. The visualized portion of the paranasal sinuses appear clear. The mastoid air cells are well aerated bilaterally. IMPRESSION: 1. There is a highly questionable focus of hypoattenuation involving the right rosalee. This correlates to the patient's neurologic symptomatology then further characterization can be made with MRI of the brain. 2. Evidence of chronic microvascular disease similar in appearance to the prior CT of the brain dated August 09, 2015. Findings were discussed with Nida Claudio NP over the telephone at 1010 hours on October 09, 2017. <Electronically signed by Graham Zavala MD in [place]> 10/09/17 1013 Dictated By: Graham Zavala MD Dictated Date/Time: 10/09/17 1013 Transcribed Date/Time: 10/09/17 1000 Copy to: CC:Jolnata Mckinley DO; Nida Claudio VETERINARY TOXICOLOGIST; Gurvinder Proctor MD; Moises Valdes III, MD Imaging - [facility] Imaging - [facility] Imaging - [facility] [address] [place] [id number] [facility] [address] 1 of 2 CTA HEAD 10/09/17 Patient Name: DAVID MESA Medical Record#: [id number] Ordering Physician: Nida Claudio NP Acct.#: [id number] : 1960 Age: 57 Sex: F Location: [address] [place] [address] MEDICAL/TELEMETRY Exam Date: 10/09/17 1040 ADM Status: ADM IN Order Information: CTA HEAD/NECK Accession Number: [id number] CPT: 53414 CPT II: CPT II Codes: 3100F INDICATION: Altered mental status in a vasculopath COMPARISON: Same day CT of the brain that demonstrated questionable hypoechoic attenuating focus in the right rosalee TECHNIQUE: A CT angiogram of the head and neck was performed with 80 cc of Visipaque 320. Contiguous axial sections were obtained from the thoracic inlet through the [place]. Images were reconstructed in the sagittal, coronal planes and in a 3-D volume rendered format. The distal cervical internal carotid artery diameter is used as the denominater for stenosis measurement. CTA NECK: There is a stent in the distal most portion of the right common carotid artery that appears to be adequately patent. The left common carotid artery is adequately patent. Right: The right common carotid artery stent extends into the proximal most portion of the right internal carotid artery. There is narrowing of the stent at the level of the carotid bifurcation measuring 2 mm in diameter. More inferiorly the lumen of the stent measures 3 mm. This indicates at least a 33% degree stenosis spanning the stent. Left: Low the carotid bifurcation the left common carotid artery measures 6 mm in diameter in the internal carotid artery measures 6 mm in diameter just beyond the bifurcation indicating 0% degree stenosis. The vertebral arteries are patent without gross abnormality. CTA of the brain: The internal carotid, anterior and middle cerebral arteries appear are patent without high grade stenosis or occlusion. There is coarse atherosclerotic calcification at the petrous carotid arteries bilaterally. The vertebral, basilar and posterior cerebral arteries appear patent without high grade stenosis or occlusion. The left posterior communicating artery appears to be absent causing the [place] to be incomplete. No focal luminal filling defect, aneurysm or vascular malformation is seen. NON-ARTERIAL FINDINGS: The hypoattenuation seen at the right rosalee is not seen on this examination. There are small bibasilar pleural effusions. Postoperative findings include a right internal jugular vein Mediport, left cardiac pacemaker and sternotomy wires. IMPRESSION: 1. There is narrowing at the right carotid artery stent as it spans the bifurcation indicating a 33% degree stenosis. Determination of patency will require ultrasound as 1 of 2 Assess/Plan/Problems-Billing Assessment: This is a 57 year old female patient with hx of acute on chronic HF, symptomatic anemia, IDDM and now presenting with CVA and dysphagia. - Patient Problems (1) Acute on chronic systolic (congestive) heart failure Code(s): I50.23 - ACUTE ON CHRONIC SYSTOLIC (CONGESTIVE) HEART FAILURE SNOMED Code(s): 483809997 Comment: - appears to be resolved - respiratory status stable (2) Amputation of left lower extremity below knee Code(s): Z89.512 - ACQUIRED ABSENCE OF LEFT LEG BELOW KNEE SNOMED Code(s): 755102298979280 Comment: - Stable - Dressing changes and wound care per protocol (3) Anemia Code(s): D64.9 - ANEMIA, UNSPECIFIED SNOMED Code(s): 363834043 Comment: - H&H stable at 7.10/31 - Normocytic, no s/s acute blood loss, likely AOCD and CKD (per record, bone marrow biopsy showed no MDS) - s/p 2 units PRBCs 10/07, 10/08 (4) Osteomyelitis Code(s): M86.9 - OSTEOMYELITIS, UNSPECIFIED SNOMED Code(s): 74191380 Comment: - Atbx as per Dr. Damon - Linezolid and Aztreonam, although with inability to seallow, did not get linezolid today - Stable (5) CAD (coronary artery disease) Code(s): I25.10 - ATHSCL HEART DISEASE OF [place] CORONARY ARTERY W/O ANG PCTRS SNOMED Code(s): 89984532 Comment: - s/p stenting and CABG, AICD/PM - Repeat ECHO today (6) CKD (chronic kidney disease) stage 3, GFR 30-59 ml/min Code(s): N18.3 - CHRONIC KIDNEY DISEASE, STAGE 3 (MODERATE) SNOMED Code(s): 722806796 Comment: - Bump up in creat likely 2/2 IV contrast - Continue IVF at maintenance and monitor (7) COPD (chronic obstructive pulmonary disease) Code(s): J44.9 - CHRONIC OBSTRUCTIVE PULMONARY DISEASE, UNSPECIFIED SNOMED Code(s): 64434401 Comment: - Continue Spiriva and Dulera, stable (8) Diabetes mellitus with chronic kidney disease Code(s): E11.22 - TYPE 2 DIABETES MELLITUS W DIABETIC CHRONIC KIDNEY DISEASE SNOMED Code(s): 39215417 Comment: - Hold Lantus, NPO - BG Q6H with and Lispro SS - D5 1/2NS at maintenance (9) HTN (hypertension) Code(s): I10 - ESSENTIAL (PRIMARY) HYPERTENSION SNOMED Code(s): 22845070 Comment: - BP stable (10) Peripheral vascular disease Code(s): I73.9 - PERIPHERAL VASCULAR DISEASE, UNSPECIFIED SNOMED Code(s): 598213537 Comment: - Continue ASA, Plavix and statin (11) CVA (cerebral vascular accident) Code(s): I63.9 - CEREBRAL INFARCTION, UNSPECIFIED SNOMED Code(s): 678889572 Comment: - Acute changes in right rosalee per CT scan - Had bilateral carotid endarterectomies in the past - Not a candidate for TPA - CTA report as above - Cannot MRI 2/2 AICD/PM - Continue ASA, plavix and statin if she can swallow at some point - ECHO today - Pending lipids and A1C - Continue supportive care (12) Dysphagia Code(s): R13.10 - DYSPHAGIA, UNSPECIFIED SNOMED Code(s): 99451694 Comment: - Unclear if this is late CVA effect vs. pharyngitis - Rapid strep swab - tylenol and cepecol spray PRN - try crushing pills in applesauce - Aspiration precautions, speech patho eval [place] Status and Disposition: Remain inpatient for evolving CVA. Counseling and/or Coordination of Care Minutes: coordinated with patient, staff and Dr. Patricio
[2017-10-10] MEDS: Aspirin EC Low Dose* 81 MG TAB.EC PO SCH (10:57)
[2017-10-10] MEDS: D5W 1/2 NS 1000 ML BAG* 1,000 ML IV SCH (10:59)
[2017-10-10] MEDS: Aztreonam (*) 1 GM in NS 0.9% 50 ML* 50 ML IVPB SCH ×2 (11:02→17:42)
[2017-10-10] MEDS: Linezolid TAB* 600 MG PO SCH ×2 (11:05→21:10)
[2017-10-10] MEDS: Aspirin Low Dose CHEW TAB* 81 MG PO SCH (11:57)
[2017-10-10] MEDS: Nystatin TOP POWDER* 15 GM BTL TOPICAL SCH ×2 (11:59→20:28)
[2017-10-10] MEDS: Morphine INJ* 2 MG/ML 1 ML SYRINGE (TWO MG - NEW SYRINGE VERSION) IV PRN ×3 (12:14→20:28)
[2017-10-10] MEDS: Dextrose 50% Syringe 50 ML* 25 GM/50 ML SYRINGE IV PUSH PRN ×2 (12:15→17:49)
--- NOTE | 2017-10-10 13:34 | RAD ---
INDICATION: Questionable focal hypoattenuation at the rosalee on the previous day CT. COMPARISON: CT of the brain October 09, 2017 TECHNIQUE: Contiguous axial sections of the brain were obtained from the skull base to the vertex without contrast. FINDINGS: The ventricles, cisterns and sulci are within normal limits. Similar to prior CT imaging of the brain, there is mild periventricular and subcortical white matter hypoattenuation consistent with mild chronic microvascular disease. The focal hypoattenuation of the right rosalee described on yesterday's CT of the brain is not seen today. The magana-white matter differentiation is adequately maintained and there is no sulcal effacement. No significant focal abnormality or mass effect is present. There is no evidence for intracranial hemorrhage. No significant focal osseous abnormality is present. The visualized portion of the paranasal sinuses appear clear. The mastoid air cells are well aerated bilaterally. IMPRESSION: 1. The apparent focus of hypoattenuation at the right rosalee seen on the previous day CT is not seen today and is therefore likely artifactual. 2. Chronic findings include evidence of mild microvascular disease.
[2017-10-10] MEDS: Atorvastatin* 20 MG TAB PO SCH (16:21)
[2017-10-10] MEDS: Gabapentin CAP(*) 300 MG PO SCH (16:21)
[2017-10-11] MEDS: Dextrose 50% Syringe 50 ML* 25 GM/50 ML SYRINGE IV PUSH PRN ×3 (00:19→17:28)
[2017-10-11] MEDS: D5W 1/2 NS 1000 ML BAG* 1,000 ML IV SCH ×2 (00:21→17:12)
[2017-10-11] MEDS: Aztreonam (*) 1 GM in NS 0.9% 50 ML* 50 ML IVPB SCH ×3 (00:44→17:11)
[2017-10-11] MEDS: Morphine INJ* 2 MG/ML 1 ML SYRINGE (TWO MG - NEW SYRINGE VERSION) IV PRN ×5 (00:44→20:18)
[2017-10-11 04:02] LABS: Urine Appearance Cloudy; Urine Blood 2+ (Negative); Urine Color Yellow; Urine Ketones Negative (Negative); Urine Protein 2+(100 mg/dL) (Negative); Urine Specific Gravity 1.026 (1.010-1.030); Urine Urobilinogen Negative (Negative)
[2017-10-11] MEDS: Metoclopramide TAB* 10 MG PO SCH ×3 (07:09→15:46)
--- NOTE | 2017-10-11 07:30 | PN ---
PROGRESS NOTE: DATE OF FOLLOWUP: 10/10/17 HISTORY: When the patient woke up this morning, she now describes dysphagia. She reports that she tried to eat some breakfast and felt like it got stuck in her throat. The left side of her throat feels funny but there is also some pain when she is trying to swallow. The nurse did a throat swab and reported an absent gag reflex. Otherwise, the patient reports that she had an episode of pain in her left arm mostly in the upper arm which felt like someone was punching her yesterday evening lasting a few minutes. She also felt like she could not move her hand for a few minutes but now has overall improved compared to the way her left side felt yesterday. The left leg does not feel as heavy any longer and the left arm is still numb but does not feel as heavy either. She feels that her vision in her left eye may have worsened. In-hospital medications were reviewed and include, aspirin 81 mg daily, Lipitor 20 mg daily, Plavix 75 mg daily, enalapril 2.5 mg daily, gabapentin 1800 mg at night. This is not an exhaustive list. PHYSICAL EXAM: Vital Signs: Temperature 97.8, blood pressure 127/76 with a MAP of 87. Heart rate 81, oxygen saturation 98% on room air. On telemetry, there has been no evidence for atrial fibrillation. She has been mostly paced with occasional ectopic beats. On general examination, she is sitting up in her bed, in no acute distress. She appears chronically ill. Her left lower extremity is not bandaged today and showed sutures at the area of amputation just below the knee. Her posterior pharynx does not appear particularly erythematous to me. On cranial nerves examination, her pupils were equal, round and reactive from 3 to 2 mm bilaterally. Her versions are full with nystagmus on right lateral gaze. When she occludes her right eye, she reports blurring of the examiners face off to the examiner's right. She does not report this same phenomenon with occlusion of her left eye; however. Her visual baumann appear full when tested with both eyes open today. Her face appears symmetric without any clear asymmetries today. Her hearing is intact to voice. Her palate elevates symmetrically and her tongue is midline but there is no gag reflex. On motor examination, she has normal bulk and tone in the upper and lower extremities. There is a below the knee amputation on the left. There is no clear pronator drift but her left arm bounces. There is variable effort with strength testing throughout which seems worse on the left but again makes formal evaluation of her true strength is difficult. She reports diminished sensation to pinprick in the left upper and lower extremities as well as diminished sensation to temperature. Her reflexes are 1 to 2+ in the upper extremities, not easily able to elicit at the knees. DATA: Her CT angiogram was personally reviewed yesterday and showed no evidence for large vessel occlusion of the posterior circulation. She has a stent in the right internal carotid artery which shows at least 33% stenosis, spanning the stent. Her left carotid artery is widely patent. Her hemoglobin A1c was measured on 09/22/17 and was 16.4%. Fasting lipid profile has not been done. IMPRESSION: Michelle Galarza is a 57-year-old woman with multiple vascular risk factors including poorly controlled diabetes, cardiomyopathy, hypertension, and hyperlipidemia who was admitted for anemia and fluid overload and yesterday experienced abrupt onset of left-sided symptoms, potentially concerning for stroke. Her CT scan yesterday potentially showed a hypodensity in the right paramedian rosalee, so she was not considered to be a candidate for TPA secondary to that reason. There is no large vessel occlusion on her CTA. Today she reports dysphagia which may further be attributable to this potential new stroke. Her exam overall is difficult as there does appear to be some functional quality at least to her strength testing. I am going to repeat a CT scan of the brain today to see if we can better gauge whether she has had a small brain stem or thalamic stroke. She does report left eye vision difficulties, which seem to be ocular in nature. While an embolic phenomenon causing retinal artery occlusion is possible, this would not be referable to the same vessel distribution as her potential brain stem stroke and she will be continued on telemetry at this point. I have ordered a fasting lipid profile for tomorrow and she is pending echocardiogram as well. She is aware that her diabetes is poorly controlled and says that she had much better control when she was on an insulin pump, but that broke about 2 years ago and she has been unable to afford another insulin pump. For now, she will continue on aspirin and Plavix as well as current dose of statin. Thank you for this consultation. [id number]/[facility] #: [id number] ABNER
[2017-10-11] MEDS: Tiotropium CAP.INH* CAP.INH/18 MCG (USE ORDER SET !) INH SCH (08:03)
[2017-10-11] MEDS: Mometasone/Formoter 100/5 MDI INH SCH (08:03)
[2017-10-11] MEDS: Clopidogrel TAB* 75 MG PO SCH (08:19)
[2017-10-11] MEDS: Docusate CAP* 100 MG PO SCH ×2 (08:19→20:26)
[2017-10-11] MEDS: Magnesium Oxide TAB* 400 MG PO SCH (08:21)
[2017-10-11] MEDS: Enalapril TAB* 5 MG PO SCH (08:21)
[2017-10-11] MEDS: Isosorbide Dinitrate TAB* 10 MG PO SCH ×3 (08:21→20:26)
[2017-10-11] MEDS: Linezolid TAB* 600 MG PO SCH ×2 (08:21→20:26)
[2017-10-11] MEDS: Metolazone TAB* 5 MG PO SCH (08:21)
[2017-10-11] MEDS ORDERED: Magnesium Sulfate 1 GM IV* 1 GM/100 ML BAG IV ONE (09:00)
[2017-10-11] MEDS: Aspirin Low Dose CHEW TAB* 81 MG PO SCH (09:08)
[2017-10-11] MEDS: Nystatin TOP POWDER* 15 GM BTL TOPICAL SCH ×2 (09:08→20:24)
[2017-10-11 09:33] LABS: ABS Basophils 0 10^3/ul (0-0.2); ABS Eosinophils 0.2 10^3/ul (0-0.6); ABS Lymphocytes 0.9 10^3/ul (1.0-4.8); ABS Monocytes 0.1 10^3/ul (0-0.8); ABS Nucleated RBC 0 10^3/ul; Eosinophil % 2.6 % (0-6); Hematocrit 20 % (35-47); Lymphocyte % 14.8 % (25-47); Mean Corpuscular HGB Conc 33 g/dl (31-36); Mean Corpuscular Hemoglobin 29 pg (27-31); Mean Corpuscular Volume 87 fL (80-97); Mean Platelet Volume 8 um3 (7.4-10.4); Nucleated Red Blood Cells % 0; Platelet Count 94 10^3/ul (150-450); Red Blood Count 2.35 10^6/ul (4.0-5.4); Red Cell Distribution Width 19 % (10.5-15); White Blood Count 6.3 10^3/ul (3.5-10.8)
[2017-10-11 09:36] LABS: Hemoglobin 6.8 g/dl (12.0-16.0)
[2017-10-11 09:46] LABS: EGFR Non-African American 19.7 (>60); INR 0.96 (0.77-1.02)
--- NOTE | 2017-10-11 14:24 | RAD ---
Indication: Gross hematuria. Comparison: June 23, 2017 CT. Technique: Ultrasound urinary bladder. Report: Prevoid urinary bladder volume estimated at 279 mL. Uniform 2.4 mm bladder wall thickness. No focal bladder lesions evident. Bilateral ureteral jets documented. Post void residual volume estimated at 137 mL. IMPRESSION: Significant post void residual volume without additional sonographic abnormality of the urinary bladder.
[2017-10-11] MEDS: Gabapentin CAP(*) 300 MG PO SCH (16:33)
[2017-10-11] MEDS: Atorvastatin* 20 MG TAB PO SCH (16:33)
--- NOTE | 2017-10-11 19:11 | PN ---
Subjective Date of Service: 10/11/17 Interval History: Patient seen and examined. Still not able to swallow/no gag, still with blood in urine. Still with pain and weakness in left arm and residual headache. Remains tearful. Dr. Patricio also in to see patient today. Objective Active Medications: Acetaminophen (Tylenol Supp*) 650 mg [place] Q6H PRN PRN Reason: FEVER/HEADACHE Albuterol/Ipratropium (Duoneb (Albuterol 2.5 Mg/Ipratropium 0.5 Mg)) 1 neb INH TID PRN PRN Reason: SHORTNESS OF BREATH Aspirin (Aspirin Low Dose Tab*) 81 mg PO DAILY [facility] Last Admin: 10/11/17 09:08 Dose: 81 mg Atorvastatin Calcium (Lipitor*) 20 mg PO QPM [facility] Last Admin: 10/11/17 16:33 Dose: Not Given Clopidogrel Bisulfate (Plavix Tab*) 75 mg PO QAM [facility] Last Admin: 10/11/17 08:19 Dose: Not Given Dextrose (D50w Syringe 50 Ml*) 12.5 gm IV PUSH .FOR FS < 60 - SS PRN PRN Reason: FS < 60 Last Admin: 10/11/17 17:28 Dose: 12.5 gm Docusate Sodium (Colace Cap*) 100 mg PO BID [facility] Last Admin: 10/11/17 08:19 Dose: Not Given Enalapril Maleate (Vasotec Tab*) 2.5 mg PO QAM [facility] Last Admin: 10/11/17 08:21 Dose: Not Given Gabapentin (Neurontin Cap(*)) 1,800 mg PO QPM [facility] Last Admin: 10/11/17 16:33 Dose: Not Given Aztreonam 1 gm/ Sodium (Chloride) 50 mls @ 200 mls/hr IVPB Q8H [facility] Last Admin: 10/11/17 17:11 Dose: 200 mls/hr Dextrose/Sodium Chloride (D5w 1/2 Ns 1000 Ml Bag*) 1,000 mls @ 75 mls/hr IV PER RATE [facility] Last Admin: 10/11/17 17:12 Dose: 75 mls/hr Isosorbide Dinitrate (Isordil Tab*) 10 mg PO TID [facility] Last Admin: 10/11/17 12:38 Dose: Not Given Linezolid (Zyvox Tab*) 600 mg PO Q12HR [facility] Last Admin: 10/11/17 08:21 Dose: Not Given Magnesium Oxide (Magox 400 Tab*) 400 mg PO QAM [facility] Last Admin: 10/11/17 08:21 Dose: Not Given Metoclopramide HCl (Reglan Tab*) 5 mg PO TID WITH MEALS [facility] Last Admin: 10/11/17 15:46 Dose: Not Given Metolazone (Zaroxolyn Tab*) 5 mg PO MoWeFr@0900 [facility] Last Admin: 10/11/17 08:21 Dose: Not Given Mometasone Furoate/Formoterol Fumar (Dulera 100/5 Mdi*) 2 puff INH QAM [facility] Last Admin: 10/11/17 08:03 Dose: 2 puff Morphine Sulfate (Morphine Inj (Syringe)*) 2 mg IV Q4H PRN PRN Reason: PAIN - MILD Last Admin: 10/11/17 15:28 Dose: 2 mg Nystatin (Nystatin Top Powder*) 1 applic TOPICAL BID [facility] Last Admin: 10/11/17 09:08 Dose: 1 applic Ondansetron HCl (Zofran Inj*) 4 mg IV Q4H PRN PRN Reason: NAUSEA Phenol/Menthol (Chloroseptic Throat Drums*) 1 spray MT TID PRN PRN Reason: SORE THROAT Last Admin: 10/10/17 12:14 Dose: 1 spray Tiotropium [place] (Spiriva Cap.Inh*) 1 cap INH DAILY [facility] Last Admin: 10/11/17 08:03 Dose: 1 cap Vital Signs - 8 hr 10/11/17 10/11/17 10/11/17 11:15 11:55 12:30 Temperature 98.1 F Pulse Rate 77 Respiratory 18 18 17 Rate Blood Pressure 120/55 (mmHg) O2 Sat by Pulse 92 Oximetry 10/11/17 10/11/17 10/11/17 15:28 16:04 17:04 Temperature 98.3 F Pulse Rate 78 Respiratory 16 16 14 Rate Blood Pressure 118/67 (mmHg) O2 Sat by Pulse 97 Oximetry Oxygen Devices in Use Now: None Appearance: tearful, mild distress Ears/Nose/Mouth/Throat: Clear Oropharnyx, Mucous Membranes Moist Neck: Trachea Midline Respiratory: Symmetrical Chest Expansion and Respiratory Effort, - - fine crackles at bases Cardiovascular: NL Sounds; No Murmurs; No JVD, RRR Abdominal: NL Sounds; No Tenderness; No Distention Extremities: No Edema, No Clubbing, Cyanosis, - - left BKA with sutures intact, minimal drainage noted Neurological: Alert and Oriented x 3, - - left sided weakness Nutrition: - - dysphagia Result Diagrams: 10/11/17 09:20 10/11/17 09:20 Additional Lab and Data: Lab Results 10/07/17 10/07/17 10/07/17 Range/Units 16:07 16:07 16:07 WBC 4.9 (3.5-10.8) 10^3/ul RBC 1.87 L (4.0-5.4) 10^6/ul Hgb 5.7 L* (12.0-16.0) g/dl Hct 17 L (35-47) % MCV 93 (80-97) fL MCH 30 (27-31) pg MCHC 33 (31-36) g/dl RDW 17 H (10.5-15) % Plt Count 136 L (150-450) 10^3/ul MPV 8 (7.4-10.4) um3 Neut % (Auto) 67.8 (38-83) % Lymph % (Auto) 26.5 (25-47) % [place] % (Auto) 1.9 (1-9) % Eos % (Auto) 3.0 (0-6) % Baso % (Auto) 0.8 (0-2) % Absolute Neuts (auto) 3.3 (1.5-7.7) 10^3/ul Absolute Lymphs (auto) 1.3 (1.0-4.8) 10^3/ul Absolute Monos (auto) 0.1 (0-0.8) 10^3/ul Absolute Eos (auto) 0.1 (0-0.6) 10^3/ul Absolute Basos (auto) 0 (0-0.2) 10^3/ul Absolute Nucleated RBC 0.01 10^3/ul Nucleated RBC % 0.1 Sodium 138 (133-145) mmol/L Potassium 4.0 (3.5-5.0) mmol/L Chloride 106 (101-111) mmol/L Carbon Dioxide 23 (22-32) mmol/L Anion Gap 9 (2-11) mmol/L BUN 42 H (6-24) mg/dL Creatinine 1.22 H (0.51-0.95) mg/dL Est GFR ( Amer) 58.6 (>60) Est GFR (Non-Af Amer) 45.6 (>60) BUN/Creatinine Ratio 34.4 H (8-20) Glucose 142 H (70-100) mg/dL Calcium 8.7 (8.6-10.3) mg/dL Blood Type O Positive Antibody Screen Negative Antibody Identification Cancelled Direct Antiglob Test Cancelled Crossmatch See Detail Microbiology and Other Data: Microbiology 10/08/17 00:01 Transfusion Reaction Gram Stain - Final Blood Bag 10/07/17 18:27 Nasal Screen MRSA (PCR)(RYNE) - Final Nasal Mrsa Negative Diagnostic Imaging: BLADDER US Patient Name: DAVID MESA Medical Record#: [id number] Ordering Physician: Nida Claudio NP Acct.#: [id number] : 1960 Age: 57 Sex: F Location: [address] [place] [address]/TELEMETRY Exam Date: 10/11/17 1635 ADM Status: ADM IN Order Information: US URINARY BLADDER Accession Number: [id number] CPT: 17082 Indication: Gross hematuria. Comparison: June 23, 2017 CT. Technique: Ultrasound urinary bladder. Report: Prevoid urinary bladder volume estimated at 279 mL. Uniform 2.4 mm bladder wall thickness. No focal bladder lesions evident. Bilateral ureteral jets documented. Post void residual volume estimated at 137 mL. IMPRESSION: Significant post void residual volume without additional sonographic abnormality of the urinary bladder. <Electronically signed by Moises Ying MD in OV> 10/11/17 142 Dictated By: Moises Ying MD Dictated Date/Time: 10/11/17 142 Transcribed Date/Time: 10/11/17 1418 Copy to: CC:Jolanta Mckinley DO; Nida Claudio [employer]; Gurvinder Proctor MD; Moises Valdes III, MD Imaging - [facility] [id number] [place] [address] [place] [address] ph [phone]) ph ([phone]) ph ([phone]) [address] Patient Name: DAVID MESA Medical Record#: [id number] Ordering Physician: Nida Claudio NP Acct.#: [id number] : 1960 Age: 57 Sex: F Location: [address] [place] [address] MEDICAL/TELEMETRY Exam Date: 10/09/1749 ADM Status: ADM IN Order Information: CT BRAIN WO Accession Number: [id number] CPT: 05976 INDICATION: Anemia. Clinical suspicion for cerebrovascular accident. COMPARISON: Most recent CT of the brain is dated August 09, 2015 TECHNIQUE: Contiguous axial sections of the brain were obtained from the skull base to the vertex without contrast. FINDINGS: The ventricles, cisterns and sulci are within normal limits. Similar to the prior brain there is mild periventricular and subcortical white matter hypoattenuation. At the right rosalee (image 9 of 32) there is a questionable hypoattenuating focus measuring 1.1 cm that was not definitely seen on the most recent CT of the brain. Elsewhere the magana-white matter differentiation is adequately maintained and there is no sulcal effacement. No significant focal abnormality or mass effect is present. There is no evidence for intracranial hemorrhage. No significant focal osseous abnormality is present. The visualized portion of the paranasal sinuses appear clear. The mastoid air cells are well aerated bilaterally. IMPRESSION: 1. There is a highly questionable focus of hypoattenuation involving the right rosalee. This correlates to the patient's neurologic symptomatology then further characterization can be made with MRI of the brain. 2. Evidence of chronic microvascular disease similar in appearance to the prior CT of the brain dated August 09, 2015. Findings were discussed with Nida Claudio NP over the telephone at 1010 hours on October 09, 2017. <Electronically signed by Graham Zavala MD in OV> 10/09/17 1013 Dictated By: Graham Zavala MD Dictated Date/Time: 10/09/17 1013 Transcribed Date/Time: 10/09/17 1000 Copy to: CC:Jolanta Mckinley DO; Nida Claudio [employer]; Gurvinder Proctor MD; Moises Valdes III, MD Imaging - [facility] Imaging - [facility] Imaging - [facility] [address] 1 of 2 CTA HEAD CTA HEAD 10/09/17 Patient Name: DAVID MESA Medical Record#: [id number] Ordering Physician: Nida Claudio NP Acct.#: [id number] : 1960 Age: 57 Sex: F Location: [address] [place] [address] MEDICAL/TELEMETRY Exam Date: 10/09/17 1040 ADM Status: ADM IN Order Information: CTA HEAD/NECK Accession Number: [id number] CPT: 48906 CPT II: CPT II Codes: 3100F INDICATION: Altered mental status in a vasculopath COMPARISON: Same day CT of the brain that demonstrated questionable hypoechoic attenuating focus in the right rosalee TECHNIQUE: A CT angiogram of the head and neck was performed with 80 cc of Visipaque 320. Contiguous axial sections were obtained from the thoracic inlet through the ho-chunk of [place]. Images were reconstructed in the sagittal, coronal planes and in a 3-D volume rendered format. The distal cervical internal carotid artery diameter is used as the denominater for stenosis measurement. CTA NECK: There is a stent in the distal most portion of the right common carotid artery that appears to be adequately patent. The left common carotid artery is adequately patent. Right: The right common carotid artery stent extends into the proximal most portion of the right internal carotid artery. There is narrowing of the stent at the level of the carotid bifurcation measuring 2 mm in diameter. More inferiorly the lumen of the stent measures 3 mm. This indicates at least a 33% degree stenosis spanning the stent. Left: Low the carotid bifurcation the left common carotid artery measures 6 mm in diameter in the internal carotid artery measures 6 mm in diameter just beyond the bifurcation indicating 0% degree stenosis. The vertebral arteries are patent without gross abnormality. CTA of the brain: The internal carotid, anterior and middle cerebral arteries appear are patent without high grade stenosis or occlusion. There is coarse atherosclerotic calcification at the petrous carotid arteries bilaterally. The vertebral, basilar and posterior cerebral arteries appear patent without high grade stenosis or occlusion. The left posterior communicating artery appears to be absent causing the ho-chunk of [place] to be incomplete. No focal luminal filling defect, aneurysm or vascular malformation is seen. NON-ARTERIAL FINDINGS: The hypoattenuation seen at the right rosalee is not seen on this examination. There are small bibasilar pleural effusions. Postoperative findings include a right internal jugular vein Mediport, left cardiac pacemaker and sternotomy wires. IMPRESSION: 1. There is narrowing at the right carotid artery stent as it spans the bifurcation indicating a 33% degree stenosis. Determination of patency will require ultrasound as 1 of 2 Assess/Plan/Problems-Billing Assessment: This is a 57 year old female patient with hx of acute on chronic HF, symptomatic anemia, IDDM and now presenting with CVA, dysphagia and overt hematuria of unclear etiology. - Patient Problems (1) Acute on chronic systolic (congestive) heart failure Code(s): I50.23 - ACUTE ON CHRONIC SYSTOLIC (CONGESTIVE) HEART FAILURE SNOMED Code(s): 226714252 Comment: - appears to be resolved - respiratory status stable - carefule with fluids now that she is NPO, watch for fluid overload and dilutional anemia (2) Amputation of left lower extremity below knee Code(s): Z89.512 - ACQUIRED ABSENCE OF LEFT LEG BELOW KNEE SNOMED Code(s): 270944933230723 Comment: - Stable - Dressing changes and wound care per protocol (3) Anemia Code(s): D64.9 - ANEMIA, UNSPECIFIED SNOMED Code(s): 443493211 Comment: - HgB 6.8 today - Normocytic, no s/s acute blood loss, likely AOCD and CKD (per record, bone marrow biopsy showed no MDS) - s/p 2 units PRBCs 10/07, 10/08 (4) Osteomyelitis Code(s): M86.9 - OSTEOMYELITIS, UNSPECIFIED SNOMED Code(s): 18039744 Comment: - Atbx as per Dr. Damon - Linezolid and Aztreonam, although with inability to swallow, cannot take linezolid, will defer to Dr. Damon if he wants to change to IV starting tomorrow (5) CAD (coronary artery disease) Code(s): I25.10 - ATHSCL HEART DISEASE OF [place] CORONARY ARTERY W/O ANG PCTRS SNOMED Code(s): 92137878 Comment: - s/p stenting and CABG, AICD/PM - Follow repeat ECHO (6) CKD (chronic kidney disease) stage 3, GFR 30-59 ml/min Code(s): N18.3 - CHRONIC KIDNEY DISEASE, STAGE 3 (MODERATE) SNOMED Code(s): 640433613 Comment: - Bump up in creat likely 2/2 IV contrast at 2.52 - Continue IVF and monitor for fluid overload - May need to consider consult with renal if creat continues to rise (7) COPD (chronic obstructive pulmonary disease) Code(s): J44.9 - CHRONIC OBSTRUCTIVE PULMONARY DISEASE, UNSPECIFIED SNOMED Code(s): 14656928 Comment: - Continue Spiriva and Dulera, stable (8) Diabetes mellitus with chronic kidney disease Code(s): E11.22 - TYPE 2 DIABETES MELLITUS W DIABETIC CHRONIC KIDNEY DISEASE SNOMED Code(s): 60069168 Comment: - BG running low - Hold Lantus while NPO - BG Q6H with and Lispro SS - D5 1/2NS at maintenance, D50 as needed (9) HTN (hypertension) Code(s): I10 - ESSENTIAL (PRIMARY) HYPERTENSION SNOMED Code(s): 48914358 Comment: - BP stable (10) Peripheral vascular disease Code(s): I73.9 - PERIPHERAL VASCULAR DISEASE, UNSPECIFIED SNOMED Code(s): 936997125 Comment: - Continue ASA, Plavix and statin when able to swallow (11) CVA (cerebral vascular accident) Code(s): I63.9 - CEREBRAL INFARCTION, UNSPECIFIED SNOMED Code(s): 926654085 Comment: - Acute changes in right rosalee per CT scan but not on CTA - Per neuro, will still treat clinically for CVA - Not a candidate for TPA - CTA report as above - Cannot MRI 2/2 AICD/PM - Continue ASA, plavix and statin if she can swallow at some point - Follow ECHO - Lipids appropriate, A1C is uncontrolled at 16 - Continue supportive care (12) Dysphagia Code(s): R13.10 - DYSPHAGIA, UNSPECIFIED SNOMED Code(s): 07309368 Comment: - Failed bedside swallow eval x2 - Unclear if this is late CVA effect vs. pharyngitis - Rapid strep swab negative - tylenol and cepecol spray PRN pain - Aspiration precautions, speech patho eval CHRISTIANA (13) Hematuria Code(s): R31.9 - HEMATURIA, UNSPECIFIED SNOMED Code(s): 35418778 Comment: - Bladder US with no wall thickening - Continue to monitor, as patient has been on plavix and ASA with dropping hgb Status and Disposition: Remain inpatient for evolving CVA and multiple comorbid complications. Counseling and/or Coordination of Care Minutes: Coordinated with patient and staff.
[2017-10-12] MEDS: Morphine INJ* 2 MG/ML 1 ML SYRINGE (TWO MG - NEW SYRINGE VERSION) IV PRN ×4 (00:34→20:29)
[2017-10-12] MEDS: Dextrose 50% Syringe 50 ML* 25 GM/50 ML SYRINGE IV PUSH PRN ×3 (00:34→10:47)
[2017-10-12] MEDS: Aztreonam (*) 1 GM in NS 0.9% 50 ML* 50 ML IVPB SCH ×3 (00:50→19:53)
--- NOTE | 2017-10-12 01:08 | PN ---
PROGRESS NOTE: DATE OF FOLLOWUP: 10/11/17 HISTORY: Overnight, the patient has began to have some hematuria. She is scheduled to have an ultrasound today. Otherwise, she continues to report some numbness and weakness of her left side. She continues to feel like she is having some trouble with her memory, as well as some difficulty getting out the appropriate words at times. She still reports that she does not have a gag reflex and has not been eating at this point. Finally, she has a headache, which is both posterior and anterior and pounding in nature, but does not have any other migrainous features associated with it. When she takes pain medication, this will relieve it for several hours, but then it comes back. She has a past history of migraine headaches, but these have not been a problem for the past 20 years or so. MEDICATIONS: Include: 1. Aspirin 81 mg daily. 2. Clopidogrel 75 mg daily. 3. Atorvastatin 20 mg daily. 4. Enalapril 2.5 mg q.a.m. 5. Gabapentin 1800 mg q.p.m. 6. Isosorbide 10 mg t.i.d. 7. Morphine 2 mg IV q.4 p.r.n. pain. Of note, her oral medications have not been given secondary to her n.p.o. status. However, she has received chewable aspirin. PHYSICAL EXAMINATION: Vital Signs: Temperature 98, blood pressure 134/69, heart rate 81, oxygen saturation 100% on room air. On general examination, she is seated in the chair beside her hospital bed. Her is in the room this morning. She is in no acute distress. Her rldbt-cyi-lndl amputation shows intact sutures with no drainage. On neurologic examination, she is fully awake , alert, and oriented. There is no significant dysarthria. Her versions are intact, but she has nystagmus at end gaze bilaterally which is worse when looking towards the right. Escoto were not retested today. Her face is symmetric. Facial sensation is diminished to light touch on the left globally. Palate elevates symmetrically and the tongue is midline. On motor examination , she continues to not have any clear pronator drift on the left, but her left arm bounces when eyes are closed. 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 Both lower extremities are antigravity. Sensation to light touch is diminished on the left arm and leg compared to the right. There is no ataxia on finger-to- nose testing. DIAGNOSTIC STUDIES/LAB DATA: Her hematocrit is 20, hemoglobin 6.8, platelet count 94 and has been dropping since her admission. Her creatinine is now 2.52 with her admission creatinine being 1.22, BUN is 58. Her cholesterol studies showed triglycerides 116, total cholesterol 98, LDL 36, and HDL 38.9. Her rapid strep test was negative. Her transthoracic echocardiogram will be completed tomorrow because she will be having a bubble study and there is no nursing available to assist with the bubble study today per the electroencephalographic technologist. Repeat CT of the brain was personally reviewed and shows no clear area of ischemia in the brainstem or thalamus. IMPRESSION: Michelle Galarza is a 57-year-old woman with multiple vascular risk factors who has potentially had a small posterior circulation stroke. Though her repeat CT scan did not show any evolving hypodensity to correlate with that which was originally thought to be seen on the , it is still possible that she could have suffered some small ischemic insults in the posterior circulation which are not well seen on CT scan. At this point, I would continue her dual-antiplatelet therapy, though I recognized that she is having hematuria as well as falling platelet count. That is going to be further investigated today with a bladder ultrasound per the hospitalist team. We will have to reassess whether she can continue on dual-antiplatelet therapy depending on her clinical course. Her cholesterol studies are at goal. Echocardiogram is pending. Swallow evaluation to take place tomorrow. I will continue to follow the patient along. [id number]/[facility] #: [id number] [place]
[2017-10-12] MEDS: Metoclopramide TAB* 10 MG PO SCH (08:58)
[2017-10-12] MEDS: Linezolid TAB* 600 MG PO SCH (09:32)
[2017-10-12] MEDS: Aspirin Low Dose CHEW TAB* 81 MG PO SCH (09:32)
[2017-10-12] MEDS: Isosorbide Dinitrate TAB* 10 MG PO SCH (09:32)
[2017-10-12] MEDS: Clopidogrel TAB* 75 MG PO SCH (09:32)
[2017-10-12] MEDS: Enalapril TAB* 5 MG PO SCH (09:32)
[2017-10-12] MEDS: Docusate CAP* 100 MG PO SCH (09:32)
[2017-10-12] MEDS: Magnesium Oxide TAB* 400 MG PO SCH (09:33)
[2017-10-12] MEDS ORDERED: Aspirin SUPP* 300 MG PR SCH (10:00)
[2017-10-12] MEDS ORDERED: Nitroglycerin 0.2 MG/HR PATCH* (5 MG) TRANSDERM SCH (10:00)
[2017-10-12] MEDS: D5W 1/2 NS 1000 ML BAG* 1,000 ML IV SCH (10:26)
[2017-10-12] MEDS: Ondansetron INJ* 2 MG/ML VIAL IV PRN (10:53)
[2017-10-12] MEDS: Nitroglycerin 0.2 MG/HR PATCH* (5 MG) TRANSDERM SCH (11:07)
[2017-10-12] MEDS: Linezolid 600 MG IVPREMIX(*) 600 MG/300 ML BAG IVPB SCH ×2 (11:57→21:24)
[2017-10-12 11:59] LABS: ABS Basophils 0 10^3/ul (0-0.2); ABS Eosinophils 0.2 10^3/ul (0-0.6); ABS Lymphocytes 0.6 10^3/ul (1.0-4.8); ABS Monocytes 0.2 10^3/ul (0-0.8); ABS Neutrophils 4.4 10^3/ul (1.5-7.7); ABS Nucleated RBC 0 10^3/ul; Eosinophil % 3.4 % (0-6); Hematocrit 20 % (35-47); Lymphocyte % 11.6 % (25-47); Mean Corpuscular HGB Conc 33 g/dl (31-36); Mean Corpuscular Hemoglobin 29 pg (27-31); Mean Corpuscular Volume 87 fL (80-97); Mean Platelet Volume 9 um3 (7.4-10.4); Nucleated Red Blood Cells % 0.1; Platelet Count 83 10^3/ul (150-450); Red Blood Count 2.29 10^6/ul (4.0-5.4); Red Cell Distribution Width 19 % (10.5-15); White Blood Count 5.5 10^3/ul (3.5-10.8)
[2017-10-12 12:00] LABS: Hemoglobin 6.5 g/dl (12.0-16.0)
[2017-10-12] MEDS: Nystatin TOP POWDER* 15 GM BTL TOPICAL SCH ×2 (12:02→20:29)
[2017-10-12 12:21] LABS: EGFR Non-African American 18.9 (>60)
--- NOTE | 2017-10-12 12:53 | ECHO ---
Patient: DAVID MESA Rec#: [id number] : 1960 Date: 10/12/2017 Age: 57y Height: 157.48 cm / 62.0 in Weight: 72.57 kg / 159.9 lbs Sex: F BSA: 1.74 Room#: [facility] Admit Date#: 10/07/2017 Type: Inpatient Referring: Ana Patricio Reading: Brien Cabrera MD Veterinary Practitioner: Tressa Miles RDCS CC: Moises Valdes MD Transthoracic Echocardiogram Indication: New CVA BP: 128/68 HR: 81 Rhythm: Paced Findings History: Acute/chronic heart failure, DM, CAD, PCI, PVD, CKD III, prior CVA, HTN, HLD, osteomyelotis, anemia, COPD, former smoker, s/p AICD. Technical Comments: The study quality is fair. The study is technically limited due to poor parasternal windows. The study is technically limited due to the patient's smoking history. Completed at 1030. Left Ventricle: The left ventricular chamber size is normal. Mild concentric left ventricular hypertrophy is observed. The apex is not well visualized. There is a focal wall motion abnormality present.There is moderate mid anterior wall hypokinesis with moderate to severe distal anterior, apical and distal inferoapical hypokinesis. There is moderately decreased left ventricular systolic function. The estimated ejection fraction is 35-40%. Visually estimated LVEF is closer to 40 %. There is no consistent Doppler evidence of clinically significant diastolic dysfunction. Left Atrium: The left atrium is mild to moderately dilated. Right Ventricle: The right ventricle is mildly dilated. The right ventricular global systolic function is normal. A pacemaker wire is visualized in the right ventricle. Right Atrium: The right atrium is mildly dilated. Imaging of the interatrial septum is suboptimal to accurately assess for shunt. A pacemaker wire is visualized in the right atrium. Aortic Valve: The aortic valve is trileaflet. The aortic valve leaflets are mildly thickened. There is no evidence of aortic regurgitation. There is no evidence of aortic stenosis. Mitral Valve: The mitral valve leaflets are mildly thickened. There is mild to moderate mitral regurgitation. There is no evidence of mitral stenosis. Tricuspid Valve: The tricuspid valve leaflets are mildly thickened. There is moderate tricuspid regurgitation. The right ventricular systolic pressure is estimated at 55 mmHg. There is evidence of moderate pulmonary hypertension. There is no tricuspid stenosis. Pulmonic Valve: The pulmonic valve structure is not well visualized. There is no pulmonic stenosis. Pericardium: There is no significant pericardial effusion. A pericardial fat pad is visualized. Aorta: There is no dilatation of the ascending aorta. There is no dilatation of the aortic arch. The aortic root is normal in size. Pulmonary Artery: The main pulmonary artery is not well visualized. Venous: The inferior vena cava appears normal in size. There is a greater than 50% respiratory change in the inferior vena cava dimension. Contrast: Normal saline was used as contrast for the bubble study. Intravenous contrast was used to help determine presence of intracardiac shunting. Conclusions The study is technically limited due to the patient's smoking history. Completed at 1030. The study is technically limited due to poor parasternal windows. Mild concentric left ventricular hypertrophy is observed. There is a focal wall motion abnormality present.There is moderate mid anterior wall hypokinesis with moderate to severe distal anterior, apical and distal inferoapical hypokinesis. The estimated ejection fraction is 35-40%.( Visually estimated LVEF is closer to 40 %) . There is mild to moderate mitral regurgitation. There is moderate tricuspid regurgitation.seen in one view. There is evidence of moderate pulmonary hypertension. Bubble study could not be performed with adequate quality for assessment of right to left shunting at the atrial level. Color flow analysis was suboptimal with poor subcostal views. Suggest considering alternative imaging (such as MARTHA), if definitive analysis for intracardiac shunting is needed. Compared to report of study from 07/01/2017 there is perhaps minimal improvement in LV systolic function, the degree of tricuspid regurgitation is more (was mild to moderate) Measurements Name Value Normal Range RVIDd (AP) 2D 2.9 cm (0.9 - 2.6) RVDdMajor (2D) 4.6 cm (2.2 - 4.4) RAd ISD 4CH 5.1 cm (3.4 - 4.9) RA (A4C)W 4.2 cm (2.9 - 4.6) IVSd (2D) 1.1 cm (0.6 - 1) LVPWd (2D) 1.2 cm (0.6 - 1) LVIDd (2D) 4.8 cm (3.6 - 5.4) LVIDs (2D) 3.2 cm - LV FS (2D) 34 % (25 - 45) Aortic Annulus 1.7 cm (1.4 - 2.6) Ao root diameter (2D) 2.8 cm (2.1 - 3.5) Ascending Ao 3 cm (2.1 - 3.4) Aortic arch 2.1 cm (1.8 - 3.4) LA dimension (AP) 2D 4.2 cm (2.3 - 3.8) LAd ISD 4CH 6.1 cm (2.9 - 5.3) LA ISD 4CH W 4.1 cm (2.5 - 4.5) Name Value Normal Range LA ESV SP 4CH (A/L) 69 ml - LA ESV SP 2CH (A/L) 87 ml - LA ESV BP (A/L) 78 ml - LA ESV BP (A/L) index 45 ml/m2 - LA ESV SP 4CH (MOD) 61 ml - LA ESV SP 2CH (MOD) 80 ml - Name Value Normal Range MV E-wave Vmax 1.07 m/sec - MV deceleration time 154.6 msec - MV A-wave Vmax 1.2 m/sec - MV E:A ratio 0.9 ratio - LV septal e' Vmax 0.05 m/sec - LV lateral e' Vmax 0.08 m/sec - LV E:e' septal ratio 21.4 ratio - LV E:e' lateral ratio 13.38 ratio - Name Value Normal Range AV Vmax 1.4 m/sec - AV VTI 28.46 cm - AV peak gradient 7.87 mmHg - AV mean gradient 4.13 mmHg - LVOT Vmax 0.88 m/sec - LVOT VTI 21.25 cm - LVOT peak gradient 3.11 mmHg - LVOT mean gradient 1.77 mmHg - MARISOL Vmax 0.93 m/sec - Name Value Normal Range TR Vmax 3.6 m/sec - TR peak gradient 52 mmHg - RAP 3 mmHg - RVSP 55 mmHg - IVC diameter 1.8 cm - Name Value Normal Range PV Vmax 1.02 m/sec - PV peak gradient 4.24 mmHg -
[2017-10-12] MEDS: Tiotropium CAP.INH* CAP.INH/18 MCG (USE ORDER SET !) INH SCH (13:09)
[2017-10-12] MEDS ORDERED: Furosemide IV* 10 MG/ML 2 ML VIAL (20 MG) IV ONE (13:12)
[2017-10-12] MEDS: Mometasone/Formoter 100/5 MDI INH SCH (13:14)
[2017-10-12] MEDS ORDERED: Acetaminophen TAB* 325 MG PO PRN (14:29)
[2017-10-12] MEDS: Gabapentin CAP(*) 300 MG PO SCH (17:41)
[2017-10-12] MEDS: Atorvastatin* 20 MG TAB PO SCH (17:41)
--- NOTE | 2017-10-12 19:11 | PN ---
Subjective Date of Service: 10/12/17 Interval History: Patient has continued complaints of SOB which feels similar to previous episodes of cardiac overload she has had. Patient also complains of DIAZ, Numbness in her left hand, blurring in left eye which is worse than yesterday. Patient has been bleeding from her perineal area, believed to possibly be hematuria but patient has labial abrasions. Patient denies dizziness, F/C, N/V, Abdominal Pain, Diarrhea, Dysuria or other pain. Family History: Unchanged from Admission Social History: Unchanged from Admission Past Medical History: Unchanged from Admission Objective Active Medications: Acetaminophen (Tylenol Supp*) 650 mg VT Q6H PRN PRN Reason: FEVER/HEADACHE Acetaminophen (Tylenol Tab*) 650 mg PO Q6H PRN PRN Reason: PAIN Albuterol/Ipratropium (Duoneb (Albuterol 2.5 Mg/Ipratropium 0.5 Mg)) 1 neb INH TID PRN PRN Reason: SHORTNESS OF BREATH Aspirin (Aspirin Low Dose Tab*) 81 mg PO DAILY [facility] Atorvastatin Calcium (Lipitor*) 20 mg PO QPM [facility] Last Admin: 10/12/17 17:41 Dose: Not Given Dextrose (D50w Syringe 50 Ml*) 12.5 gm IV PUSH .FOR FS < 60 - SS PRN PRN Reason: FS < 60 Last Admin: 10/12/17 10:47 Dose: 12.5 gm Gabapentin (Neurontin Cap(*)) 1,800 mg PO QPM [facility] Last Admin: 10/12/17 17:41 Dose: Not Given Heparin Sodium (Porcine) (Heparin Flush Port (Ivad)) 5 ml FLUSH DAILY [facility] PRN Reason: Protocol Last Admin: 10/12/17 13:10 Dose: Not Given Aztreonam 1 gm/ Sodium (Chloride) 50 mls @ 200 mls/hr IVPB Q8H [facility] Last Admin: 10/12/17 11:06 Dose: 200 mls/hr Dextrose/Sodium Chloride (D5w 1/2 Ns 1000 Ml Bag*) 1,000 mls @ 75 mls/hr IV PER RATE [facility] Last Admin: 10/12/17 10:26 Dose: 75 mls/hr Linezolid (Zyvox 600 Mg Ivpremix(*)) 600 mg in 300 mls @ 300 mls/hr IVPB Q12H [facility] Last Admin: 10/12/17 11:57 Dose: 300 mls/hr Magnesium Oxide (Magox 400 Tab*) 400 mg PO QAM [facility] Last Admin: 10/12/17 09:33 Dose: Not Given Metolazone (Zaroxolyn Tab*) 5 mg PO MoWeFr@0900 [facility] Last Admin: 10/11/17 08:21 Dose: Not Given Mometasone Furoate/Formoterol Fumar (Dulera 100/5 Mdi*) 2 puff INH QAM [facility] Last Admin: 10/12/17 13:14 Dose: 2 puff Morphine Sulfate (Morphine Inj (Syringe)*) 2 mg IV Q4H PRN PRN Reason: PAIN - MILD Last Admin: 10/12/17 16:14 Dose: 2 mg Nitroglycerin (Nitroglycerin 5 Mg Patch*) 1 patch TRANSDERM DAILY [facility] Last Admin: 10/12/17 11:07 Dose: 1 patch Nystatin (Nystatin Top Powder*) 1 applic TOPICAL BID [facility] Last Admin: 10/12/17 12:02 Dose: 1 applic Ondansetron HCl (Zofran Inj*) 4 mg IV Q4H PRN PRN Reason: NAUSEA Last Admin: 10/12/17 10:53 Dose: 4 mg Pharmacy Profile Note (Nitro Patch/Oint Remove*) 1 note PATCH OFF 2100 [facility] Phenol/Menthol (Chloroseptic Throat [place]*) 1 spray MT TID PRN PRN Reason: SORE THROAT Last Admin: 10/10/17 12:14 Dose: 1 spray Tiotropium [place] (Spiriva Cap.Inh*) 1 cap INH DAILY [facility] Last Admin: 10/12/17 13:09 Dose: 1 cap Vital Signs - 8 hr 10/12/17 10/12/17 10/12/17 12:04 12:08 15:49 Temperature 97.5 F 97.5 F Pulse Rate 96 78 Respiratory 16 16 14 Rate Blood Pressure 131/84 130/66 (mmHg) O2 Sat by Pulse 90 Oximetry 10/12/17 10/12/17 10/12/17 16:14 16:16 17:25 Temperature 97.4 F Pulse Rate 75 Respiratory 14 13 14 Rate Blood Pressure 129/68 (mmHg) O2 Sat by Pulse Oximetry Oxygen Devices in Use Now: None Appearance: Patient is a 57yo female who appears stated age and is sitting in the bed in NAD. Eyes: No Scleral Icterus, PERRLA Ears/Nose/Mouth/Throat: NL Teeth, Lips, Gums, Clear Oropharnyx, Mucous Membranes Moist Neck: NL Appearance and Movements; NL JVP, Trachea Midline Respiratory: Symmetrical Chest Expansion and Respiratory Effort, Clear to Auscultation, - - Diminished throughout. Cardiovascular: NL Sounds; No Murmurs; No JVD, RRR, - - 1+ edema in B/L LE. Abdominal: NL Sounds; No Tenderness; No Distention, No Hepatosplenomegaly Lymphatic: No Cervical Adenopathy Extremities: No Clubbing, Cyanosis Skin: No Nodules or Sclerosis, - - Small abrasions on upper right labia minora and lower left labia majora. Result Diagrams: 10/12/17 11:05 10/12/17 11:05 Additional Lab and Data: Lab Results Microbiology and Other Data: Microbiology 10/08/17 00:01 Transfusion Reaction Gram Stain - Final Blood Bag 10/07/17 18:27 Nasal Screen MRSA (PCR)(RYNE) - Final Nasal Mrsa Negative Diagnostic Imaging: BLADDER US Patient Name: DAVID MESA Medical Record#: [id number] Ordering Physician: Nida Claudio NP Acct.#: [id number] : 1960 Age: 57 Sex: F Location: [address] [place] [address] MEDICAL/TELEMETRY Exam Date: 10/11/17756 ADM Status: ADM IN Order Information: URINARY BLADDER Accession Number: [id number] CPT: 42840 Indication: Gross hematuria. Comparison: June 23, 2017 CT. Technique: Ultrasound urinary bladder. Report: Prevoid urinary bladder volume estimated at 279 mL. Uniform 2.4 mm bladder wall thickness. No focal bladder lesions evident. Bilateral ureteral jets documented. Post void residual volume estimated at 137 mL. IMPRESSION: Significant post void residual volume without additional sonographic abnormality of the urinary bladder. <Electronically signed by Moises Ying MD in OV> 10/11/17 1421 Dictated By: Moises Ying MD Dictated Date/Time: 10/11/17 142 Transcribed Date/Time: 10/11/17 1418 Copy to: CC:Jolanta Mckinley DO; Nida Claudio NP; Gurvinder Proctor MD; Moises Valdes III, MD Imaging - [facility] Imaging - [facility] Imaging - [facility] [id number] [place] [id number] [place] [phone] ph ([phone]) ph ([phone]) ph ([phone]) [address] Patient Name: DAVID MESA Medical Record#: [id number] Ordering Physician: Nida Claudio NP Acct.#: [id number] : 1960 Age: 57 Sex: F Location: [address] [place] [address] MEDICAL/TELEMETRY Exam Date: 10/09/17 0949 ADM Status: ADM IN Order Information: CT BRAIN WO Accession Number: [id number] CPT: 30687 INDICATION: Anemia. Clinical suspicion for cerebrovascular accident. COMPARISON: Most recent CT of the brain is dated August 09, 2015 TECHNIQUE: Contiguous axial sections of the brain were obtained from the skull base to the vertex without contrast. FINDINGS: The ventricles, cisterns and sulci are within normal limits. Similar to the prior brain there is mild periventricular and subcortical white matter hypoattenuation. At the right rosalee (image 9 of 32) there is a questionable hypoattenuating focus measuring 1.1 cm that was not definitely seen on the most recent CT of the brain. Elsewhere the magana-white matter differentiation is adequately maintained and there is no sulcal effacement. No significant focal abnormality or mass effect is present. There is no evidence for intracranial hemorrhage. No significant focal osseous abnormality is present. The visualized portion of the paranasal sinuses appear clear. The mastoid air cells are well aerated bilaterally. IMPRESSION: 1. There is a highly questionable focus of hypoattenuation involving the right rosalee. This correlates to the patient's neurologic symptomatology then further characterization can be made with MRI of the brain. 2. Evidence of chronic microvascular disease similar in appearance to the prior CT of the brain dated August 09, 2015. Findings were discussed with Nida Claudio NP over the telephone at 1010 hours on October 09, 2017. <Electronically signed by Graham Zavala MD in OV> 10/09/17 1013 Dictated By: Graham Zavala MD Dictated Date/Time: 10/09/17 1013 Transcribed Date/Time: 10/09/17 1000 Copy to: CC:Jolanta Mckinley DO; Nida Claudio QUILL MACHINE TENDER; Gurvinder Proctor MD; Moises Valdes III, MD Imaging - [facility] Imaging - [facility] Imaging [facility] [address] 10 [facility] [address] [place] [address] 1 of 2 CTA HEAD CTA HEAD 10/09/17 Patient Name: DAVID MESA Medical Record#: [id number] Ordering Physician: Nida Claudio QUILL MACHINE TENDER Acct.#: [id number] : 1960 Age: 57 Sex: F Location: [address] [place] [address] - MEDICAL/TELEMETRY Exam Date: 10/09/17 1040 ADM Status: ADM IN Assess/Plan/Problems-Billing Assessment: This is a 57 year old female patient with hx of acute on chronic HF, symptomatic anemia, IDDM and now presenting with CVA, dysphagia and blurring of her left eye. - Patient Problems (1) CVA (cerebral vascular accident) Current Visit: Yes Status: Acute Code(s): I63.9 - CEREBRAL INFARCTION, UNSPECIFIED SNOMED Code(s): 776642875 Comment: Acute changes in right rosalee per CT scan but not on CTA Per neuro, will still treat clinically for CVA Not a candidate for TPA Cannot MRI 2/2 AICD/PM Continue ASA VT, Hold plavix and statin until she can swallow. Echo inadequately assess bubble study. Lipids appropriate, A1C is uncontrolled at 16 Continue supportive care (2) Dysphagia Current Visit: Yes Status: Acute Code(s): R13.10 - DYSPHAGIA, UNSPECIFIED SNOMED Code(s): 98017049 Comment: Appreciate speech therapy input. Recommend [place] Thick and pureed. Patient still having difficulty. Continue D5W 1/2 NS for nutritional support until able to take PO intake. Consider Barium swallow eval (3) LELIA (acute kidney injury) Current Visit: No Status: Acute Code(s): N17.9 - ACUTE KIDNEY FAILURE, UNSPECIFIED SNOMED Code(s): 20138413 Comment: Cret increasing despite apparant fluid overload. Likely due to third spacing from D5W 1/2 NS leading to intravascular depletion. Will monitor and consult nephrology if no improvement overnight. Pateint is making adequate urine still. FeNa pending. (4) Acute on chronic systolic (congestive) heart failure Current Visit: No Status: Acute Priority: High Code(s): I50.23 - ACUTE ON CHRONIC SYSTOLIC (CONGESTIVE) HEART FAILURE SNOMED Code(s): 883064772 Comment: Was resolved. Worsening again from fluids due to NPO status. No crackles in lungs or hypoxia. Will stop D5W when able. (5) Amputation of left lower extremity below knee Current Visit: No Status: Acute Code(s): Z89.512 - ACQUIRED ABSENCE OF LEFT LEG BELOW KNEE SNOMED Code(s): 308396460794111 Comment: Stable Dressing changes and wound care per protocol (6) Anemia Current Visit: No Status: Acute Priority: Medium Code(s): D64.9 - ANEMIA, UNSPECIFIED SNOMED Code(s): 080697845 Comment: HgB 6.5 today Normocytic, no s/s acute blood loss, likely AOCD and CKD (per record, bone marrow biopsy showed no MDS) S/P 2 units PRBCs 10/07, 10/08 and now on 1/2 Blood loss from labia, not profuse amounts. (7) Candidal intertrigo Current Visit: No Status: Acute Code(s): B37.2 - CANDIDIASIS OF SKIN AND NAIL SNOMED Code(s): 599362401 Comment: Minor, continue nystatin. (8) DVT prophylaxis Current Visit: No Status: Acute Code(s): DVQ0856 - SNOMED Code(s): 109181045 Comment: SCD, heparin held for thrombocytopenia. (9) Gastroparesis diabeticorum Current Visit: No Status: Acute Code(s): E11.43 - TYPE 2 DIABETES W DIABETIC AUTONOMIC (POLY)NEUROPATHY; K31.84 - GASTROPARESIS SNOMED Code(s): 626340469 Comment: Continue Reglan when patient not NPO. (10) Thrombocytopenia Current Visit: Yes Status: Acute Code(s): D69.6 - THROMBOCYTOPENIA, UNSPECIFIED SNOMED Code(s): 394701496 Comment: At 89K. No apparent cause. Bladder US showed no clots. No more hematuria. Possibly consumptive, INR normal. Will monitor and transfuse as needed. (11) Diabetes mellitus with chronic kidney disease Current Visit: No Status: Chronic Priority: Medium Code(s): E11.22 - TYPE 2 DIABETES MELLITUS W DIABETIC CHRONIC KIDNEY DISEASE SNOMED Code(s): 47366724 Comment: BG running low Hold Lantus while NPO BG Q4H with and Lispro SS D5 1/2NS at maintenance, D50 as needed (12) Full code status Current Visit: No Status: Acute Code(s): Z78.9 - OTHER SPECIFIED HEALTH STATUS SNOMED Code(s): 410128523 Status and Disposition: Remain inpatient for evolving CVA and multiple comorbid complications.
[2017-10-12] MEDS: Nitro Patch/OINT Remove PATCH OFF SCH (20:29)
[2017-10-12 21:35] LABS: Hematocrit 22 % (35-47); Hemoglobin 7.3 g/dl (12.0-16.0)
[2017-10-13] MEDS: Aztreonam (*) 1 GM in NS 0.9% 50 ML* 50 ML IVPB SCH ×3 (01:04→17:15)
--- NOTE | 2017-10-13 01:26 | PN ---
PROGRESS NOTE: DATE OF FOLLOWUP: 10/12/17 HISTORY: Today the patient continues to report worsening of the vision in her left eye. She continues to have headache which is primarily in the posterior head. It is pounding in nature and currently rated as a 9/10. It turns out that the patient did not, in fact, have hematuria yesterday but was having bleeding from some labial abrasions. She now has a Mckeon in to better quantify whether there was in fact any hematuria. She is also going to be receiving another unit of blood. She had her transthoracic echocardiogram and speech therapy evaluation today. Speech Therapy approved her for a pureed diet with nectar thick liquids, but she continues to say that she is having difficulty swallowing her pills and she tends to take them in apple sauce. MEDICATIONS: Reviewed and include: 1. Aspirin 81 mg daily. 2. Clopidogrel 75 mg daily, but she has not taken this since she has been n.p.o. 3. Atorvastatin 20 mg daily which again she has not been taking since she has been n.p.o. 4. Gabapentin 1800 mg daily, again not given secondary to n.p.o. PHYSICAL EXAMINATION: Vital Signs: Temperature 97.4, blood pressure 133/77, heart rate 77, and oxygen saturation 98% on room air. General: She is in no acute distress. She does appear sleepy and sometimes drowses off during our conversation. She appears chronically ill. Neurologic Examination: She is fully oriented. There is no significant dysarthria or aphasia. Her versions are full with end-gaze nystagmus bilaterally as previously noted. With the right eye occluded, the patient reports that the entire examiner's face is blurry. With the left eye occluded, she is able to see all aspects of the examiner's face. On visual field testing today, she reports some difficulty in the left upper quadrant when eyes are tested bilaterally. Facial sensation is diminished on the left. There is no facial asymmetry. On examination of her extremities today, sensation seems to be improved in her left upper arm compared to previous days. Her strength is similar to that documented on previous days. LABORATORY DATA: Hematocrit today is 20, hemoglobin 6.5, platelets 83,000 from 94,000 yesterday. INR 0.96 yesterday. Chemistry panel this morning shows creatinine of 2.62 from 2.52 yesterday and BUN of 65 from 58 yesterday. Glucose this morning was 59 at 5 a.m. and then again 58 at 10 a.m., but most recently 110. Her urine yesterday showed 3+ white blood cells, 1+ leukocyte esterase, and 2+ rbc's. IMAGING: Transthoracic echocardiogram showed poor parasternal windows and the bubble study was inconclusive secondary to this. Her EF is closer to 40% which is slightly improved compared to June. Her tricuspid regurgitation is rated as moderate. The left ventricle continues to show moderate mid anterior wall hypokinesis with moderate to severe distal anterior, apical and distal inferior apical hypokinesis. IMPRESSION: Michelle Galarza is a 57-year-old woman with multiple medical problems who had the acute onset of left-sided numbness and weakness as well as some left- sided vision changes on 10/09/17. Her head CT has shown no clear evidence of new infarction and she cannot undergo MRI scan secondary to pacemaker. At this point she is being treated with dual therapy antiplatelet, but has not been receiving clopidogrel secondary to dysphagia. I discussed with Riccardo Del Cid that at this point given her bleeding complications and thrombocytopenia, I think that the clopidogrel should continue to be held until that has stabilized. She should be continued on aspirin. I do not think that any further assessment of her heart in terms of the bubble study is really medically necessary at this point given everything else that is going on with her. She should continue on her statin and I will have a call in to Speech Therapy to see whether a barium swallow would be helpful in further assessing her swallowing function and appropriateness for p.o. intake. [id number]/[facility] #: [id number] MTDD
[2017-10-13] MEDS: D5W 1/2 NS 1000 ML BAG* 1,000 ML IV SCH ×2 (04:17→17:08)
[2017-10-13] MEDS: Morphine INJ* 2 MG/ML 1 ML SYRINGE (TWO MG - NEW SYRINGE VERSION) IV PRN ×3 (04:17→19:38)
[2017-10-13] MEDS: Mometasone/Formoter 100/5 MDI INH SCH (08:28)
[2017-10-13] MEDS: Tiotropium CAP.INH* CAP.INH/18 MCG (USE ORDER SET !) INH SCH (08:28)
[2017-10-13] MEDS ORDERED: Aspirin Low Dose CHEW TAB* 81 MG PO SCH (09:00)
[2017-10-13] MEDS: Aspirin SUPP* 300 MG PR SCH (09:05)
[2017-10-13] MEDS: Nitroglycerin 0.2 MG/HR PATCH* (5 MG) TRANSDERM SCH (09:13)
[2017-10-13] MEDS: Nystatin TOP POWDER* 15 GM BTL TOPICAL SCH ×2 (09:19→20:36)
[2017-10-13] MEDS: Linezolid 600 MG IVPREMIX(*) 600 MG/300 ML BAG IVPB SCH ×2 (09:58→21:27)
[2017-10-13] MEDS: Metolazone TAB* 5 MG PO SCH (10:15)
[2017-10-13] MEDS: Magnesium Oxide TAB* 400 MG PO SCH (10:15)
[2017-10-13 11:18] LABS: ABS Basophils 0.1 10^3/ul (0-0.2); ABS Eosinophils 0.2 10^3/ul (0-0.6); ABS Lymphocytes 0.5 10^3/ul (1.0-4.8); ABS Monocytes 0.2 10^3/ul (0-0.8); ABS Neutrophils 4.1 10^3/ul (1.5-7.7); ABS Nucleated RBC 0 10^3/ul; Eosinophil % 3.7 % (0-6); Hematocrit 23 % (35-47); Hemoglobin 7.7 g/dl (12.0-16.0); Lymphocyte % 9.2 % (25-47); Mean Corpuscular HGB Conc 34 g/dl (31-36); Mean Corpuscular Hemoglobin 29 pg (27-31); Mean Corpuscular Volume 87 fL (80-97); Mean Platelet Volume 9 um3 (7.4-10.4); Nucleated Red Blood Cells % 0; Red Blood Count 2.63 10^6/ul (4.0-5.4); Red Cell Distribution Width 17 % (10.5-15); White Blood Count 5.1 10^3/ul (3.5-10.8)
[2017-10-13 11:21] LABS: Platelet Count 77 10^3/ul (150-450)
--- NOTE | 2017-10-13 14:38 | RAD ---
INDICATION: Dysphagia, absent gag reflex. COMPARISON: There are no prior studies available for comparison. Technique: A swallowing function test was performed in conjunction with the speech pathologist. The patient was fluoroscopically lateral projection while swallowing thin and thick liquids and solids coated with barium. Approximately 2.5 minutes of intermittent fluoroscopic guidance were used during the exam. Findings: The patient had difficulty initiating swallowing especially with solid materials. There was pooling of contrast within the valleculae and piriform sinuses. No aspiration was noted. IMPRESSION: ORAL PHARYNGEAL DYSPHAGIA DESCRIBED. CPT II Codes: 6045F
[2017-10-13 15:10] LABS: EGFR Non-African American 20.2 (>60)
[2017-10-13] MEDS ORDERED: Furosemide IV* 10 MG/ML 2 ML VIAL (20 MG) IV SLOW PU ONE (16:09)
--- NOTE | 2017-10-13 16:16 | PN ---
Subjective Date of Service: 10/13/17 Interval History: Patient feels better than yesterday, complains of slight SOB. Patient also complains of pain on left side of body in hand and head which is new since her stroke. Patient denies numbness and tingling in her left side. Patient has persistent and stable blurring in her left eye. Patient denies CP, N/V, Abdominal Pain, F/C, pain at her previous surgical incision, or other pain. Family History: Unchanged from Admission Social History: Unchanged from Admission Past Medical History: Unchanged from Admission Objective Active Medications: Acetaminophen (Tylenol Supp*) 650 mg OK Q6H PRN PRN Reason: FEVER/HEADACHE Acetaminophen (Tylenol Tab*) 650 mg PO Q6H PRN PRN Reason: PAIN Albuterol/Ipratropium (Duoneb (Albuterol 2.5 Mg/Ipratropium 0.5 Mg)) 1 neb INH TID PRN PRN Reason: SHORTNESS OF BREATH Aspirin (Aspirin Supp*) 300 mg OK DAILY [facility] Last Admin: 10/13/17 09:05 Dose: Not Given Atorvastatin Calcium (Lipitor*) 20 mg PO QPM [facility] Last Admin: 10/12/17 17:41 Dose: Not Given Dextrose (D50w Syringe 50 Ml*) 12.5 gm IV PUSH .FOR FS < 60 - SS PRN PRN Reason: FS < 60 Last Admin: 10/12/17 10:47 Dose: 12.5 gm Furosemide (Lasix Iv*) 20 mg IV SLOW PU ONCE ONE Stop: 10/13/17 16:10 Gabapentin (Neurontin Cap(*)) 1,800 mg PO QPM [facility] Last Admin: 10/12/17 17:41 Dose: Not Given Heparin Sodium (Porcine) (Heparin Flush Port (Ivad)) 5 ml FLUSH DAILY [facility] PRN Reason: Protocol Last Admin: 10/13/17 09:05 Dose: Not Given Aztreonam 1 gm/ Sodium (Chloride) 50 mls @ 200 mls/hr IVPB Q8H [facility] Last Admin: 10/13/17 09:31 Dose: 200 mls/hr Linezolid (Zyvox 600 Mg Ivpremix(*)) 600 mg in 300 mls @ 300 mls/hr IVPB Q12H [facility] Last Admin: 10/13/17 09:58 Dose: 300 mls/hr Dextrose/Sodium Chloride (D5w 1/2 Ns 1000 Ml Bag*) 1,000 mls @ 25 mls/hr IV PER RATE [facility] Magnesium Oxide (Magox 400 Tab*) 400 mg PO QAM [facility] Last Admin: 10/13/17 10:15 Dose: Not Given Metolazone (Zaroxolyn Tab*) 5 mg PO MoWeFr@0900 [facility] Last Admin: 10/13/17 10:15 Dose: Not Given Mometasone Furoate/Formoterol Fumar (Dulera 100/5 Mdi*) 2 puff INH QAM [facility] Last Admin: 10/13/17 08:28 Dose: 2 puff Morphine Sulfate (Morphine Inj (Syringe)*) 2 mg IV Q4H PRN PRN Reason: PAIN - MILD Last Admin: 10/13/17 08:33 Dose: 2 mg Nitroglycerin (Nitroglycerin 5 Mg Patch*) 1 patch TRANSDERM DAILY [facility] Last Admin: 10/13/17 09:13 Dose: 1 patch Nystatin (Nystatin Top Powder*) 1 applic TOPICAL BID [facility] Last Admin: 10/13/17 09:19 Dose: 1 applic Ondansetron HCl (Zofran Inj*) 4 mg IV Q4H PRN PRN Reason: NAUSEA Last Admin: 10/12/17 10:53 Dose: 4 mg Pharmacy Profile Note (Nitro Patch/Oint Remove*) 1 note PATCH OFF 2100 [facility] Last Admin: 10/12/17 20:29 Dose: 1 note Phenol/Menthol (Chloroseptic Throat [place]*) 1 spray MT TID PRN PRN Reason: SORE THROAT Last Admin: 10/10/17 12:14 Dose: 1 spray Tiotropium [place] (Spiriva Cap.Inh*) 1 cap INH DAILY [facility] Last Admin: 10/13/17 08:28 Dose: 1 cap Vital Signs - 8 hr 10/13/17 10/13/17 10/13/17 08:33 11:34 15:28 Temperature 97.5 F 97.6 F Pulse Rate 71 78 Respiratory 18 16 16 Rate Blood Pressure 135/71 155/81 (mmHg) O2 Sat by Pulse 98 97 Oximetry Oxygen Devices in Use Now: None Appearance: Patient is a 57yo female who appears older than stated age and is sitting in the bed in [facility]. Eyes: No Scleral Icterus, PERRLA, - - Strabismus with left sided esotropia. Ears/Nose/Mouth/Throat: NL Teeth, Lips, Gums, Mucous Membranes Moist, - - Slight Erythema of posterior pharynx. Neck: NL Appearance and Movements; NL JVP, Trachea Midline Respiratory: Symmetrical Chest Expansion and Respiratory Effort, Clear to Auscultation, - - Diminished Throughout Cardiovascular: NL Sounds; No Murmurs; No JVD, RRR, No Edema, - - Pulses 2+ in B /L Radial and Popliteal. 2+ in right PT/DP Abdominal: NL Sounds; No Tenderness; No Distention, No Hepatosplenomegaly Lymphatic: No Cervical Adenopathy Extremities: No Clubbing, Cyanosis, - - Surgically absent LLE below the knee. CDI incision. Skin: No Nodules or Sclerosis Neurological: Alert and Oriented x 3, - - Blurring of the left eye. Left Esotropia worse with convergence. Otherwise EOMI intact. Result Diagrams: 10/13/17 11:00 10/13/17 11:00 Additional Lab and Data: Lab Results Microbiology and Other Data: Microbiology 10/08/17 00:01 Transfusion Reaction Gram Stain - Final Blood Bag 10/07/17 18:27 Nasal Screen MRSA (PCR)(RYNE) - Final Nasal Mrsa Negative Diagnostic Imaging: BLADDER US Patient Name: DAVID MESA Medical Record#: [id number] Ordering Physician: Nida Claudio NP Acct.#: [id number] : 1960 Age: 57 Sex: F Location: [address] [place] [address] MEDICAL/TELEMETRY Exam Date: 10/11/17756 ADM Status: ADM IN Order Information: US URINARY BLADDER Accession Number: [id number] CPT: 18480 Indication: Gross hematuria. Comparison: June 23, 2017 CT. Technique: Ultrasound urinary bladder. Report: Prevoid urinary bladder volume estimated at 279 mL. Uniform 2.4 mm bladder wall thickness. No focal bladder lesions evident. Bilateral ureteral jets documented. Post void residual volume estimated at 137 mL. IMPRESSION: Significant post void residual volume without additional sonographic abnormality of the urinary bladder. <Electronically signed by Moises Ying MD in [place]> 10/11/17 142 Dictated By: Moises Ying MD Dictated Date/Time: 10/11/17 142 Transcribed Date/Time: 10/11/17 1418 Copy to: CC:Jolanta Mckinley DO; Nida Claudio CRANE HELPER; Gurvinder Proctor MD; Moises Valdes III, MD Imaging - [facility] Imaging - [facility] Imaging - [facility] [address] [place] [id number] [address] [address] ph ([phone]) ph ([phone]) ph ([phone]) [address] HEAD Patient Name: DAVID MESA Medical Record#: [id number] Ordering Physician: Nida Claudio NP Acct.#: [id number] : 1960 Age: 57 Sex: F Location: [address] [place] [address] MEDICAL/TELEMETRY Exam Date: 10/09/1749 ADM Status: ADM IN Order Information: CT BRAIN WO Accession Number: [id number] CPT: 16756 INDICATION: Anemia. Clinical suspicion for cerebrovascular accident. COMPARISON: Most recent CT of the brain is dated August 09, 2015 TECHNIQUE: Contiguous axial sections of the brain were obtained from the skull base to the vertex without contrast. FINDINGS: The ventricles, cisterns and sulci are within normal limits. Similar to the prior brain there is mild periventricular and subcortical white matter hypoattenuation. At the right rosalee (image 9 of 32) there is a questionable hypoattenuating focus measuring 1.1 cm that was not definitely seen on the most recent CT of the brain. Elsewhere the magana-white matter differentiation is adequately maintained and there is no sulcal effacement. No significant focal abnormality or mass effect is present. There is no evidence for intracranial hemorrhage. No significant focal osseous abnormality is present. The visualized portion of the paranasal sinuses appear clear. The mastoid air cells are well aerated bilaterally. IMPRESSION: 1. There is a highly questionable focus of hypoattenuation involving the right rosalee. This correlates to the patient's neurologic symptomatology then further characterization can be made with MRI of the brain. 2. Evidence of chronic microvascular disease similar in appearance to the prior CT of the brain dated August 09, 2015. Findings were discussed with Nida Claudio NP over the telephone at 1010 hours on October 09, 2017. <Electronically signed by Graham Zavala MD in [place]> 10/09/17 1013 Dictated By: Graham Zavala MD Dictated Date/Time: 10/09/17 1013 Transcribed Date/Time: 10/09/17 1000 Copy to: CC:Jolanta Mckinley DO; Nida Claudio CRANE HELPER; Gurvinder Proctor MD; Moises Valdes III, MD Imaging - [facility] Imaging - [facility] [address] 10 [facility] [address] [place] [address] Avenue 1 of 2 CTA HEAD CTA HEAD 10/09/17 Patient Name: DAVID MESA Medical Record#: [id number] Ordering Physician: Nida Claudio CRANE HELPER Acct.#: [id number] : 1960 Age: 57 Sex: F Location: [address] [place] [address] - MEDICAL/TELEMETRY Exam Date: 10/09/17 1040 ADM Status: ADM IN Assess/Plan/Problems-Billing Assessment: This is a 57 year old female patient with hx of acute on chronic HF, symptomatic anemia, IDDM and now presenting with CVA, dysphagia and blurring of her left eye. - Patient Problems (1) CVA (cerebral vascular accident) Current Visit: Yes Status: Acute Code(s): I63.9 - CEREBRAL INFARCTION, UNSPECIFIED SNOMED Code(s): 551136688 Comment: Acute changes in right rosalee per CT scan but not on CTA Per neuro, will still treat clinically for CVA Not a candidate for TPA Cannot MRI 2/2 AICD/PM Continue ASA OK, Hold plavix and statin until she can swallow. Echo inadequately assess bubble study. Lipids appropriate, A1C is uncontrolled at 16 Continue supportive care (2) Dysphagia Current Visit: Yes Status: Acute Code(s): R13.10 - DYSPHAGIA, UNSPECIFIED SNOMED Code(s): 84153344 Comment: Appreciate speech therapy input. Recommend [place] Thick and pureed. Patient still having difficulty and coughing with nectar thick liquids. Barium swallow shows no aspiration. Continue D5W 1/2 NS for nutritional support until able to take PO intake. Fear of Aspiration likely contributing to dysphagia. (3) LELIA (acute kidney injury) Current Visit: No Status: Acute Code(s): N17.9 - ACUTE KIDNEY FAILURE, UNSPECIFIED SNOMED Code(s): 12982435 Comment: Cret decreased today, likely due to transfusion, H/H still increasing. Likely due to third spacing from D5W 1/2 NS leading to intravascular depletion. Will monitor and consult nephrology if indicated. Pateint is making adequate urine still. FeNa indicates prerenal pathology. (4) Acute on chronic systolic (congestive) heart failure Current Visit: No Status: Acute Priority: High Code(s): I50.23 - ACUTE ON CHRONIC SYSTOLIC (CONGESTIVE) HEART FAILURE SNOMED Code(s): 558448872 Comment: Was resolved. Worsening again from fluids due to NPO status. No crackles in lungs or hypoxia. Will stop D5W when able. Positive 8L and up at least 2 pounds since admission. Will decrease fluids and give lasix 20mg IV. (5) Amputation of left lower extremity below knee Current Visit: No Status: Acute Code(s): Z89.512 - ACQUIRED ABSENCE OF LEFT LEG BELOW KNEE SNOMED Code(s): 292912958738367 Comment: Stable Dressing changes and wound care per protocol (6) Anemia Current Visit: No Status: Acute Priority: Medium Code(s): D64.9 - ANEMIA, UNSPECIFIED SNOMED Code(s): 157810779 Comment: HgB 7.7 today, increased more than expected from transfusion. Normocytic, no s/s acute blood loss, likely AOCD and CKD (per record, bone marrow biopsy showed no MDS) S/P 3 units PRBCs 10/07, 10/08 and now on 1/2 Blood loss from labia, not profuse amounts. Will monitor and tranfuse as indicated. (7) Candidal intertrigo Current Visit: No Status: Acute Code(s): B37.2 - CANDIDIASIS OF SKIN AND NAIL SNOMED Code(s): 446042905 Comment: Minor, continue nystatin. (8) DVT prophylaxis Current Visit: No Status: Acute Code(s): MWU5748 - SNOMED Code(s): 708732035 Comment: SCD, heparin held for thrombocytopenia. (9) Gastroparesis diabeticorum Current Visit: No Status: Acute Code(s): E11.43 - TYPE 2 DIABETES W DIABETIC AUTONOMIC (POLY)NEUROPATHY; K31.84 - GASTROPARESIS SNOMED Code(s): 558889843 Comment: Continue Reglan when patient not NPO. (10) Thrombocytopenia Current Visit: Yes Status: Acute Code(s): D69.6 - THROMBOCYTOPENIA, UNSPECIFIED SNOMED Code(s): 584909654 Comment: At 89K. No apparent cause. Bladder US showed no clots. No more hematuria. Possibly consumptive, INR normal. Will monitor and transfuse as needed. (11) Diabetes mellitus with chronic kidney disease Current Visit: No Status: Chronic Priority: Medium Code(s): E11.22 - TYPE 2 DIABETES MELLITUS W DIABETIC CHRONIC KIDNEY DISEASE SNOMED Code(s): 83370736 Comment: BG running low Hold Lantus while NPO BG Q4H with and Lispro SS D5 1/2NS at maintenance, D50 as needed (12) Full code status Current Visit: No Status: Acute Code(s): Z78.9 - OTHER SPECIFIED HEALTH STATUS SNOMED Code(s): 843434251 Status and Disposition: Remain inpatient for evolving CVA and multiple comorbid complications.
[2017-10-13] MEDS: Atorvastatin* 20 MG TAB PO SCH (17:22)
[2017-10-13] MEDS: Gabapentin CAP(*) 300 MG PO SCH (17:22)
[2017-10-13] MEDS: Nitro Patch/OINT Remove PATCH OFF SCH (20:37)
[2017-10-14] MEDS: Aztreonam (*) 1 GM in NS 0.9% 50 ML* 50 ML IVPB SCH ×3 (01:25→17:36)
[2017-10-14] MEDS: Morphine INJ* 2 MG/ML 1 ML SYRINGE (TWO MG - NEW SYRINGE VERSION) IV PRN ×3 (02:44→21:37)
[2017-10-14] MEDS: Ondansetron INJ* 2 MG/ML VIAL IV PRN ×2 (04:36→09:03)
[2017-10-14 05:04] LABS: ABS Basophils 0.1 10^3/ul (0-0.2); ABS Eosinophils 0.1 10^3/ul (0-0.6); ABS Lymphocytes 0.9 10^3/ul (1.0-4.8); ABS Monocytes 0.3 10^3/ul (0-0.8); ABS Neutrophils 2.8 10^3/ul (1.5-7.7); ABS Nucleated RBC 0 10^3/ul; Eosinophil % 2.5 % (0-6); Hematocrit 23 % (35-47); Hemoglobin 7.8 g/dl (12.0-16.0); Lymphocyte % 20.9 % (25-47); Mean Corpuscular HGB Conc 33 g/dl (31-36); Mean Corpuscular Hemoglobin 29 pg (27-31); Mean Corpuscular Volume 87 fL (80-97); Mean Platelet Volume 9 um3 (7.4-10.4); Nucleated Red Blood Cells % 0; Red Blood Count 2.68 10^6/ul (4.0-5.4); Red Cell Distribution Width 17 % (10.5-15); White Blood Count 4.1 10^3/ul (3.5-10.8)
[2017-10-14 05:05] LABS: Platelet Count 70 10^3/ul (150-450)
[2017-10-14 05:15] LABS: EGFR Non-African American 19.1 (>60)
[2017-10-14] MEDS ORDERED: Furosemide IV* 10 MG/ML 2 ML VIAL (20 MG) IV SLOW PU ONE ×2 (07:04→13:32)
[2017-10-14] MEDS: Mometasone/Formoter 100/5 MDI INH SCH (08:17)
[2017-10-14] MEDS: Tiotropium CAP.INH* CAP.INH/18 MCG (USE ORDER SET !) INH SCH (08:18)
[2017-10-14] MEDS: Aspirin SUPP* 300 MG PR SCH (08:37)
[2017-10-14] MEDS: Nitroglycerin 0.2 MG/HR PATCH* (5 MG) TRANSDERM SCH (09:03)
[2017-10-14] MEDS: Nystatin TOP POWDER* 15 GM BTL TOPICAL SCH ×2 (09:03→20:12)
[2017-10-14] MEDS: Magnesium Oxide TAB* 400 MG PO SCH (09:18)
[2017-10-14] MEDS: Linezolid 600 MG IVPREMIX(*) 600 MG/300 ML BAG IVPB SCH (10:13)
[2017-10-14] MEDS: D5W 1/2 NS 1000 ML BAG* 1,000 ML IV SCH (10:13)
[2017-10-14 10:48] LABS: Corrected Retic Count 0.1 % (0.5-1.5); Hematocrit for Retic CNT 23 % (35-47); Immature Retic Fraction 0.28; RBC Retic Count 2.68 10^6/ul (4.6-6.2)
--- NOTE | 2017-10-14 11:01 | PN ---
Progress Note - Progress Note Date of Service: 10/14/17 SOAP: HPI: patient known to our service for relatively recent consult over the summer for anemia. bone marrow biopsy at that time slightly hypercellular for age with low iron stores, but otherwise unremarkable. she has been on chronic outpatient aztreonam and linezolid for a chronic stump infection and is now coming in with weakness and SOB and found to have marked anemia and now is thrombocytopenic. of note, she has been thrombocytopenic in the past during sepsis episodes. Currently she has no clinical indicators of sepsis. She has been flushing her accessed port with heparin daily for months while receiving these antibiotics. since admission she also developed blurred vision and difficulty swallowing. There was initial concern for a pontine stroke, however repeat CT scan questions artifact. She can not have an MRI because of an AICD for her heart failure. She was taking plavix as an outpatient, which has been held. She is to be receiving [place] aspirin but has been refusing this. She had normal bilirubin and AST on admission. Subjective: currently she feels maybe slightly better. she has continued dysphagia which is seen on video esophagram, of unclear etiology. Today her platelet count is down to 70k. Her heparin flushes have been held. Objective: Vital Signs Temp Pulse Resp BP Pulse Ox 97.5 F 81 18 156/75 95 10/14/17 07:28 10/14/17 07:28 10/14/17 07:43 10/14/17 07:28 10/14/17 07:28 lying in bed in nad perr eomi op moist cta bl s1 s2 nl soft nt +bs left stump warm, sutures from [address], no discharge rle 1+ LE pitting edema A+Ox 3, did not ambulated, grossly nonfocal Laboratory Results - last 24 hr 10/13/17 10/13/17 10/13/17 11:00 11:00 15:44 WBC 5.1 RBC 2.63 L RBC (Retic) Hgb 7.7 L Hct 23 L HCT (Retic) MCV 87 MCH 29 MCHC 34 RDW 17 H Plt Count 77 L MPV 9 Neut % (Auto) 81.4 Lymph % (Auto) 9.2 L [place] % (Auto) 4.5 Eos % (Auto) 3.7 Baso % (Auto) 1.2 Absolute Neuts (auto) 4.1 Absolute Lymphs (auto) 0.5 L Absolute Monos (auto) 0.2 Absolute Eos (auto) 0.2 Absolute Basos (auto) 0.1 Absolute Nucleated RBC 0 Nucleated RBC % 0 Retic Count, Calc Corrected Retic Count Retic Shift Factor Retic Production Index Immature Retic Fraction Mean Retic Volume Sodium 133 Potassium 4.4 Chloride 105 Carbon Dioxide 21 L Anion Gap 7 BUN 65 H Creatinine 2.47 H Est GFR ( Amer) 26.0 Est GFR (Non-Af Amer) 20.2 BUN/Creatinine Ratio 26.3 H Glucose 132 H POC Glucose (mg/dL) 108 H Calcium 7.9 L Magnesium 2.2 C-Reactive Protein 18.27 H 10/13/17 10/13/17 10/14/17 19:42 23:27 04:40 WBC RBC RBC (Retic) Hgb Hct HCT (Retic) MCV MCH MCHC RDW Plt Count MPV Neut % (Auto) Lymph % (Auto) [place] % (Auto) Eos % (Auto) Baso % (Auto) Absolute Neuts (auto) Absolute Lymphs (auto) Absolute Monos (auto) Absolute Eos (auto) Absolute Basos (auto) Absolute Nucleated RBC Nucleated RBC % Retic Count, Calc Corrected Retic Count Retic Shift Factor Retic Production Index Immature Retic Fraction Mean Retic Volume Sodium 135 Potassium 4.3 Chloride 106 Carbon Dioxide 20 L Anion Gap 9 BUN 67 H Creatinine 2.59 H Est GFR ( Amer) 24.6 Est GFR (Non-Af Amer) 19.1 BUN/Creatinine Ratio 25.9 H Glucose 125 H POC Glucose (mg/dL) 132 H 160 H Calcium 8.1 L Magnesium 2.3 C-Reactive Protein 10/14/17 10/14/17 10/14/17 04:40 04:40 08:24 WBC 4.1 RBC 2.68 L RBC (Retic) 2.68 L Hgb 7.8 L Hct 23 L HCT (Retic) 23 L MCV 87 MCH 29 MCHC 33 RDW 17 H Plt Count 70 L MPV 9 Neut % (Auto) 68.1 Lymph % (Auto) 20.9 L [place] % (Auto) 7.1 Eos % (Auto) 2.5 Baso % (Auto) 1.4 Absolute Neuts (auto) 2.8 Absolute Lymphs (auto) 0.9 L Absolute Monos (auto) 0.3 Absolute Eos (auto) 0.1 Absolute Basos (auto) 0.1 Absolute Nucleated RBC 0 Nucleated RBC % 0 Retic Count, Calc 0.2 L Corrected Retic Count 0.1 L Retic Shift Factor 2.0 Retic Production Index 0.10 Immature Retic Fraction 0.28 Mean Retic Volume 98.3 Sodium Potassium Chloride Carbon Dioxide Anion Gap BUN Creatinine Est GFR ( Amer) Est GFR (Non-Af Amer) BUN/Creatinine Ratio Glucose POC Glucose (mg/dL) 137 H 102 H Calcium Magnesium C-Reactive Protein smear: anisopoikilocytosis, occ large platelets, toxic granulations in neutrophils, occ jacob cells, no schistocytes Acetaminophen (Tylenol Supp*) 650 mg [place] Q6H PRN PRN Reason: FEVER/HEADACHE Acetaminophen (Tylenol Tab*) 650 mg PO Q6H PRN PRN Reason: PAIN Albuterol/Ipratropium (Duoneb (Albuterol 2.5 Mg/Ipratropium 0.5 Mg)) 1 neb INH TID PRN PRN Reason: SHORTNESS OF BREATH Aspirin (Aspirin Supp*) 300 mg [place] DAILY [facility] Last Admin: 10/14/17 08:37 Dose: Not Given Atorvastatin Calcium (Lipitor*) 20 mg PO QPM [facility] Last Admin: 10/13/17 17:22 Dose: 20 mg Dextrose (D50w Syringe 50 Ml*) 12.5 gm IV PUSH .FOR FS < 60 - SS PRN PRN Reason: FS < 60 Last Admin: 10/12/17 10:47 Dose: 12.5 gm Gabapentin (Neurontin Cap(*)) 1,800 mg PO QPM [facility] Last Admin: 10/13/17 17:22 Dose: Not Given Heparin Sodium (Porcine) (Heparin Flush Port (Ivad)) 5 ml FLUSH DAILY [facility] PRN Reason: Protocol Last Admin: 10/14/17 07:06 Dose: Not Given Aztreonam 1 gm/ Sodium (Chloride) 50 mls @ 200 mls/hr IVPB Q8H [facility] Last Admin: 10/14/17 09:03 Dose: 200 mls/hr Linezolid (Zyvox 600 Mg Ivpremix(*)) 600 mg in 300 mls @ 300 mls/hr IVPB Q12H [facility] Last Admin: 10/14/17 10:13 Dose: 300 mls/hr Dextrose/Sodium Chloride (D5w 1/2 Ns 1000 Ml Bag*) 1,000 mls @ 25 mls/hr IV PER RATE [facility] Last Admin: 10/14/17 10:13 Dose: 25 mls/hr Magnesium Oxide (Magox 400 Tab*) 400 mg PO QAM [facility] Last Admin: 10/14/17 09:18 Dose: Not Given Metolazone (Zaroxolyn Tab*) 5 mg PO MoWeFr@0900 [facility] Last Admin: 10/13/17 10:15 Dose: Not Given Mometasone Furoate/Formoterol Fumar (Dulera 100/5 Mdi*) 2 puff INH QAM [facility] Last Admin: 10/14/17 08:17 Dose: Not Given Morphine Sulfate (Morphine Inj (Syringe)*) 2 mg IV Q4H PRN PRN Reason: PAIN - MILD Last Admin: 10/14/17 07:43 Dose: 2 mg Nitroglycerin (Nitroglycerin 5 Mg Patch*) 1 patch TRANSDERM DAILY [facility] Last Admin: 10/14/17 09:03 Dose: 1 patch Nystatin (Nystatin Top Powder*) 1 applic TOPICAL BID [facility] Last Admin: 10/14/17 09:03 Dose: 1 applic Ondansetron HCl (Zofran Inj*) 4 mg IV Q4H PRN PRN Reason: NAUSEA Last Admin: 10/14/17 09:03 Dose: 4 mg Pharmacy Profile Note (Nitro Patch/Oint Remove*) 1 note PATCH OFF 2100 [facility] Last Admin: 10/13/17 20:37 Dose: 1 note Phenol/Menthol (Chloroseptic Throat [place]*) 1 spray MT TID PRN PRN Reason: SORE THROAT Last Admin: 10/10/17 12:14 Dose: 1 spray Tiotropium [place] (Spiriva Cap.Inh*) 1 cap INH DAILY [facility] Last Admin: 10/14/17 08:18 Dose: Not Given Assessment: 57 yo F w multiple medical problems, long standing anemia with essentially normal bone marrow 6 months ago, now with anemia and thrombocytopenia. I am most suspicious that this is medication induced and related to her linezolid, despite her being on this for a prolonged period of time. It is unlikely to be a new primary marrow process with recent normal marrow (low iron stores only clear pathology). Plavix can certainly cause TTP, however there are no schistocytes on smear and bilirubin is normal, essentially ruling this out. She has been on heparin long standing and so the timing is unlikely to be HIT. At this point as long as platelets are >50k I would continue to follow without med changes unless there is a good alternative to the linezolid. I would also like to check a full anemia panel. We will continue to follow with you.
[2017-10-14] MEDS ORDERED: Alteplase (CATHFLO)* 2 MG VIAL IV ONE (14:37)
[2017-10-14] MEDS ORDERED: Metoclopramide IV* 5 MG/ML 2 ML VIAL IV PRN (15:16)
--- NOTE | 2017-10-14 15:21 | PN ---
Subjective Date of Service: 10/14/17 Interval History: Patient states she feels pretty good today. Chest tightness which she feels is like too much fluid. Patient also feels "puffy" all over. Patient has pain all over her left side and left sided headache. Patient also states she has loss of appetite and N/V which is helped slightly by zofran. Patient has persistent difficulty swallowing, but denies any cough after ingestion. Patient denies CP, Cough, abdominal pain, new weakness, dizziness, F/C or other pain. Family History: Unchanged from Admission Social History: Unchanged from Admission Past Medical History: Unchanged from Admission Objective Active Medications: Acetaminophen (Tylenol Supp*) 650 mg WV Q6H PRN PRN Reason: FEVER/HEADACHE Acetaminophen (Tylenol Tab*) 650 mg PO Q6H PRN PRN Reason: PAIN Albuterol/Ipratropium (Duoneb (Albuterol 2.5 Mg/Ipratropium 0.5 Mg)) 1 neb INH TID PRN PRN Reason: SHORTNESS OF BREATH Aspirin (Aspirin Supp*) 300 mg WV DAILY [facility] Last Admin: 10/14/17 08:37 Dose: Not Given Atorvastatin Calcium (Lipitor*) 20 mg PO QPM [facility] Last Admin: 10/13/17 17:22 Dose: 20 mg Dextrose (D50w Syringe 50 Ml*) 12.5 gm IV PUSH .FOR FS < 60 - SS PRN PRN Reason: FS < 60 Last Admin: 10/12/17 10:47 Dose: 12.5 gm Gabapentin (Neurontin Cap(*)) 1,800 mg PO QPM [facility] Last Admin: 10/13/17 17:22 Dose: Not Given Heparin Sodium (Porcine) (Heparin Flush Port (Ivad)) 5 ml FLUSH DAILY [facility] PRN Reason: Protocol Last Admin: 10/14/17 07:06 Dose: Not Given Aztreonam 1 gm/ Sodium (Chloride) 50 mls @ 200 mls/hr IVPB Q8H [facility] Last Admin: 10/14/17 09:03 Dose: 200 mls/hr Linezolid (Zyvox 600 Mg Ivpremix(*)) 600 mg in 300 mls @ 300 mls/hr IVPB Q12H [facility] Last Admin: 10/14/17 10:13 Dose: 300 mls/hr Magnesium Oxide (Magox 400 Tab*) 400 mg PO QAM [facility] Last Admin: 10/14/17 09:18 Dose: Not Given Metolazone (Zaroxolyn Tab*) 5 mg PO MoWeFr@0900 [facility] Last Admin: 10/13/17 10:15 Dose: Not Given Mometasone Furoate/Formoterol Fumar (Dulera 100/5 Mdi*) 2 puff INH QAM [facility] Last Admin: 10/14/17 08:17 Dose: Not Given Morphine Sulfate (Morphine Inj (Syringe)*) 2 mg IV Q4H PRN PRN Reason: PAIN - MILD Last Admin: 10/14/17 07:43 Dose: 2 mg Nitroglycerin (Nitroglycerin 5 Mg Patch*) 1 patch TRANSDERM DAILY [facility] Last Admin: 10/14/17 09:03 Dose: 1 patch Nystatin (Nystatin Top Powder*) 1 applic TOPICAL BID [facility] Last Admin: 10/14/17 09:03 Dose: 1 applic Ondansetron HCl (Zofran Inj*) 4 mg IV Q4H PRN PRN Reason: NAUSEA Last Admin: 10/14/17 09:03 Dose: 4 mg Pharmacy Profile Note (Nitro Patch/Oint Remove*) 1 note PATCH OFF 2100 [facility] Last Admin: 10/13/17 20:37 Dose: 1 note Phenol/Menthol (Chloroseptic Throat Sterling*) 1 spray MT TID PRN PRN Reason: SORE THROAT Last Admin: 10/10/17 12:14 Dose: 1 spray Tiotropium [place] (Spiriva Cap.Inh*) 1 cap INH DAILY [facility] Last Admin: 10/14/17 08:18 Dose: Not Given Vital Signs - 8 hr 10/14/17 10/14/17 10/14/17 07:28 07:43 08:00 Temperature 97.5 F Pulse Rate 81 Respiratory 20 18 20 Rate Blood Pressure 156/75 (mmHg) O2 Sat by Pulse 95 Oximetry 10/14/17 11:03 Temperature Pulse Rate Respiratory 17 Rate Blood Pressure (mmHg) O2 Sat by Pulse Oximetry Oxygen Devices in Use Now: None Appearance: Patient is a 57yo female who appears stated age and is sitting in the bed in [facility]. Eyes: No Scleral Icterus, PERRLA Ears/Nose/Mouth/Throat: NL Teeth, Lips, Gums, Clear Oropharnyx, Mucous Membranes Moist Neck: NL Appearance and Movements; NL JVP, Trachea Midline Respiratory: Symmetrical Chest Expansion and Respiratory Effort, - - Diminished , Rhonchi and crackles on left side Cardiovascular: NL Sounds; No Murmurs; No JVD, RRR, - - 2+ edema in B/L LE. Abdominal: NL Sounds; No Tenderness; No Distention, No Hepatosplenomegaly, - - No succussion splash. Lymphatic: No Cervical Adenopathy Extremities: No Clubbing, Cyanosis Skin: No Nodules or Sclerosis, - - Left sided BKA without signs of infection. Serous drainage and scabbing. No other rash Neurological: Alert and Oriented x 3, - - Decreased sensation and pain to light touch on left face, arm and leg. Result Diagrams: 10/14/17 04:40 10/14/17 04:40 Additional Lab and Data: Lab Results Microbiology and Other Data: Microbiology 10/08/17 00:01 Transfusion Reaction Gram Stain - Final Blood Bag 10/07/17 18:27 Nasal Screen MRSA (PCR)(RYNE) - Final Nasal Mrsa Negative Diagnostic Imaging: BLADDER US Patient Name: DAVID MESA Medical Record#: [id number] Ordering Physician: Nida Claudio NP Acct.#: [id number] : 1960 Age: 57 Sex: F Location: [address] [place] [address] - MEDICAL/TELEMETRY Exam Date: 10/11/17756 ADM Status: ADM IN Order Information: URINARY BLADDER Accession Number: [id number] CPT: 79734 Indication: Gross hematuria. Comparison: June 23, 2017 CT. Technique: Ultrasound urinary bladder. Report: Prevoid urinary bladder volume estimated at 279 mL. Uniform 2.4 mm bladder wall thickness. No focal bladder lesions evident. Bilateral ureteral jets documented. Post void residual volume estimated at 137 mL. IMPRESSION: Significant post void residual volume without additional sonographic abnormality of the urinary bladder. <Electronically signed by Moises Ying MD in [place]> 10/11/17 1421 Dictated By: Moises Ying MD Dictated Date/Time: 10/11/17 1421 Transcribed Date/Time: 10/11/17 1418 Copy to: CC:Jolanta Mckinley DO; Nida Claudio NP; Gurvinder Proctor MD; Moises Valdes III, MD Imaging - [facility] Imaging - [facility] Imaging - [facility] [address] [address] [place], [place] [id number] [place] [id number] [place] [phone] ph ([phone]) ph ([phone]) ph ([phone]) [address] Patient Name: DAVID MESA Medical Record#: [id number] Ordering Physician: Nida Claudio NP Acct.#: [id number] : 1960 Age: 57 Sex: F Location: [address] [place] [address] MEDICAL/TELEMETRY Exam Date: 10/09/17 0949 ADM Status: ADM IN Order Information: CT BRAIN WO Accession Number: [id number] CPT: 70006 INDICATION: Anemia. Clinical suspicion for cerebrovascular accident. COMPARISON: Most recent CT of the brain is dated August 09, 2015 TECHNIQUE: Contiguous axial sections of the brain were obtained from the skull base to the vertex without contrast. FINDINGS: The ventricles, cisterns and sulci are within normal limits. Similar to the prior brain there is mild periventricular and subcortical white matter hypoattenuation. At the right rosalee (image 9 of 32) there is a questionable hypoattenuating focus measuring 1.1 cm that was not definitely seen on the most recent CT of the brain. Elsewhere the magana-white matter differentiation is adequately maintained and there is no sulcal effacement. No significant focal abnormality or mass effect is present. There is no evidence for intracranial hemorrhage. No significant focal osseous abnormality is present. The visualized portion of the paranasal sinuses appear clear. The mastoid air cells are well aerated bilaterally. IMPRESSION: 1. There is a highly questionable focus of hypoattenuation involving the right rosalee. This correlates to the patient's neurologic symptomatology then further characterization can be made with MRI of the brain. 2. Evidence of chronic microvascular disease similar in appearance to the prior CT of the brain dated August 09, 2015. Findings were discussed with Nida Claudio NP over the telephone at 1010 hours on October 09, 2017. <Electronically signed by Graham Zavala MD in OV> 10/09/17 1013 Dictated By: Graham Zavala MD Dictated Date/Time: 10/09/17 1013 Transcribed Date/Time: 10/09/17 1000 Copy to: CC:Jolanta Mckinley DO; Nida Claudio GENERAL TECHNICIAN; Gurvinder Proctor MD; Moises Valdes III, MD Imaging - [facility] Imaging - [facility] Imaging [facility] [address] 1 of 2 CTA HEAD CTA HEAD 10/09/17 Patient Name: DAVID MESA Medical Record#: [id number] Ordering Physician: Nida Claudio GENERAL TECHNICIAN Acct.#: [id number] : 1960 Age: 57 Sex: F Location: [address] [place] [address] - MEDICAL/TELEMETRY Exam Date: 10/09/17 1040 ADM Status: ADM IN Assess/Plan/Problems-Billing Assessment: This is a 57 year old female patient with hx of acute on chronic HF, symptomatic anemia, IDDM and now presenting with CVA, dysphagia and blurring of her left eye. - Patient Problems (1) CVA (cerebral vascular accident) Current Visit: Yes Status: Acute Code(s): I63.9 - CEREBRAL INFARCTION, UNSPECIFIED SNOMED Code(s): 049999342 Comment: Acute changes in right rosalee per CT scan but not on CTA Per neuro, will still treat clinically for CVA Not a candidate for TPA Cannot MRI 2/2 AICD/PM Continue ASA Echo inadequately assess bubble study. Lipids appropriate, A1C is uncontrolled at 16 Continue supportive care (2) Dysphagia Current Visit: Yes Status: Acute Code(s): R13.10 - DYSPHAGIA, UNSPECIFIED SNOMED Code(s): 74921471 Comment: Appreciate speech therapy input. Recommend Thin liquids and pureed. Patient able to swallow today without difficulty. Barium swallow shows no aspiration. Stop D5w due to oral intake, increased FSBG and fluid overload. Fear of Aspiration likely contributing to dysphagia. (3) LELIA (acute kidney injury) Current Visit: No Status: Acute Code(s): N17.9 - ACUTE KIDNEY FAILURE, UNSPECIFIED SNOMED Code(s): 16796320 Comment: Cret increased today, H/H still increasing. Likely intravascularly depleted despite fluid overload. Continue lasix equivalent to home dose of torsemide. Will monitor. (4) Acute on chronic systolic (congestive) heart failure Current Visit: No Status: Acute Priority: High Code(s): I50.23 - ACUTE ON CHRONIC SYSTOLIC (CONGESTIVE) HEART FAILURE SNOMED Code(s): 289289230 Comment: Was resolved. Worsening again from fluids. Pateint has significant anasarca. Slight crackles in lungs. Stop D5W. Positive 8L and up at least 2 pounds since admission. Will Give lasix 20mg IV daily (5) Amputation of left lower extremity below knee Current Visit: No Status: Acute Code(s): Z89.512 - ACQUIRED ABSENCE OF LEFT LEG BELOW KNEE SNOMED Code(s): 397832929020193 Comment: Stable Dressing changes and wound care per protocol 19 sutures removed today. Slight bleeding from suture sites. 4 sutures remain due to difficulty. Will reattempt when less edematous. (6) Anemia Current Visit: No Status: Acute Priority: Medium Code(s): D64.9 - ANEMIA, UNSPECIFIED SNOMED Code(s): 782158179 Comment: Appreciate Hematology input. HgB 7.8 today, increased more than expected from transfusion. Normocytic, no s/s acute blood loss, likely AOCD and CKD (per record, bone marrow biopsy showed no MDS) Iron, TIBC and Ferritin high. B12 normal. Reticulocyte count very low. S/P 3 units PRBCs 10/07, 10/08 and now on 1/2 Blood loss from labia, not profuse amounts. Will monitor and tranfuse as indicated. (7) Candidal intertrigo Current Visit: No Status: Acute Code(s): B37.2 - CANDIDIASIS OF SKIN AND NAIL SNOMED Code(s): 875237214 Comment: Minor, continue nystatin. (8) DVT prophylaxis Current Visit: No Status: Acute Code(s): MGS0981 - SNOMED Code(s): 240275479 Comment: SCD, heparin held for thrombocytopenia. (9) Gastroparesis diabeticorum Current Visit: No Status: Acute Code(s): E11.43 - TYPE 2 DIABETES W DIABETIC AUTONOMIC (POLY)NEUROPATHY; K31.84 - GASTROPARESIS SNOMED Code(s): 668994650 Comment: Continue Reglan IV for N/V (10) Thrombocytopenia Current Visit: Yes Status: Acute Code(s): D69.6 - THROMBOCYTOPENIA, UNSPECIFIED SNOMED Code(s): 834833026 Comment: Appreciate hematology input. No definite cause. Could be from Zyvox. Will switch or discontinue after talking to ID. At 70K. No apparent cause. Bladder US showed no clots. No more hematuria. Possibly consumptive, INR normal. Will monitor and transfuse as needed. (11) Diabetes mellitus with chronic kidney disease Current Visit: No Status: Chronic Priority: Medium Code(s): E11.22 - TYPE 2 DIABETES MELLITUS W DIABETIC CHRONIC KIDNEY DISEASE SNOMED Code(s): 83399242 Comment: BG running low Hold Lantus while NPO BG Q4H with and Lispro SS D50 as needed (12) Full code status Current Visit: No Status: Acute Code(s): Z78.9 - OTHER SPECIFIED HEALTH STATUS SNOMED Code(s): 125533978 Status and Disposition: Remain inpatient for evolving CVA and multiple comorbid complications.
[2017-10-14] MEDS: Gabapentin CAP(*) 300 MG PO SCH (18:11)
[2017-10-14] MEDS: Atorvastatin* 20 MG TAB PO SCH (18:11)
[2017-10-14] MEDS: Nitro Patch/OINT Remove PATCH OFF SCH (20:17)
--- NOTE | 2017-10-15 00:51 | PN ---
NEUROLOGY PROGRESS NOTE: DATE OF FOLLOWUP: 10/14/17 HISTORY: The patient reports that she continues to have slow improvement in her neurologic function. She still reports some weakness and numbness on the left side that has improved. She now says her vision on the left side is hazy, also improved. She continues to have some headaches which are posteriorly located and neck pain as well. She had a formal swallow evaluation with Barium swallow yesterday, which seemed to demonstrate some inconsistent findings in that at times, she was able to appropriately swallow certain textures and at other times, she seemed unwilling or unable to do so and would show hesitancy as well as prolonged mastication. Her clopidogrel continues to be held secondary to her platelet count as well as her unwillingness to try to swallow pills. MEDICATIONS: Reviewed and list is not exhaustive, but include: 1. Tylenol 650 q.6 hours p.r.n. 2. Lipitor 20 mg q.p.m. 3. Aspirin. 4. Gabapentin 1800 mg q.p.m. 5. Magnesium 400 mg q.a.m. 6. Clopidogrel has been discontinued for the time being. 7. She is also on linezolid 600 mg q.12 hours and aztreonam. PHYSICAL EXAMINATION: Vital Signs: Temperature 97.5, blood pressure 156/75, heart rate 81, oxygen saturation 95% on room air. On general examination, she is in no acute distress. There is spasm of her paracervical musculature especially on the left. She is a pleasant woman. She is fully awake and alert. Her visions are full with some nystagmus at end gaze towards the right. She reports pulling behind her eyes and increased headache with looking towards the right but not the left. Her visual baumann were not retested today. Facial sensation is slightly diminished to light touch on the left. Facial musculature is full and symmetric. Palate elevates symmetrically and the tongue is midline. On motor examination, she has some give away weakness in the left upper extremity. Both lower extremities appear equal. There is no pronator drift, but there continues to be some bouncing of the left upper extremity with eyes closed. Sensation is slightly diminished to light touch in the left extremities. There is no ataxia on finger to nose testing. LABORATORY DATA: Fluoroscopic swallowing study was reviewed as described above. In addition, she spit out solid food when presented with it. She showed no aspiration or pharyngeal penetration with other consistencies; but with a trial of thin liquids, on the first attempt, she did fine; but on the second attempt, she exhibited premature spillage into the vallecula and piriform sinus secondary to holding the bolus on her tongue for an extended period of time. She required prompting to try to initiate a swallow. Her diet was changed to pureed solids with thin liquids. Platelets are 70 today and unfortunately continued to fall compared to 77 yesterday and 83 the day prior. Her hematocrit has been stable since she received her last transfusion 2 days ago. Her renal function remains impaired with a creatinine of 2.59, which is up from 2.47 yesterday. IMPRESSION: A 57-year-old woman with multiple medical problems and cardiovascular risk factors including very poorly controlled diabetes who developed left-sided weakness and sensory changes on 10/09/17 after she had been admitted 2 days earlier for symptomatic anemia and fluid overload. There is no clear stroke evident on her CT scan. She has been on dual antiplatelet therapy, but more recently clopidogrel has been held secondary to swallowing difficulties as well as thrombocytopenia, which has been worsening, and bleeding problems though it sounds as though that has resolved. I see that Dr. Nolasco is consulting in terms of her thrombocytopenia and her input is much appreciated. At this point, I would continue to hold her Plavix but continue with the aspirin for now in the setting of her thrombocytopenia. It is not clear to me that she has dysphagia from a true neurologic problem. I discussed with her today that some of this may be mental secondary to her fear of swallowing and her worry regarding the absence of her gag reflex. She was encouraged to continue taking small bites and small sips and continuing to work on her swallowing so that her diet can be further advanced and she can get back to taking all of her medications as prescribed. With respect to her headache and neck pain, we had discussed a trial of cyclobenzaprine, but I do not want to do that given the other medications that she is on and in particular the linezolid. If I can be of further assistance during Ms. Galarza's hospitalization, please let us know. Otherwise, she sees Dr. Lyon for her peripheral neuropathy and she can continue to follow up with him as an outpatient for her neurologic problems. [id number]/[facility] #: [id number] [facility]
[2017-10-15] MEDS: Aztreonam (*) 1 GM in NS 0.9% 50 ML* 50 ML IVPB SCH ×3 (01:25→18:11)
[2017-10-15] MEDS: Morphine INJ* 2 MG/ML 1 ML SYRINGE (TWO MG - NEW SYRINGE VERSION) IV PRN ×4 (02:09→20:21)
[2017-10-15] MEDS: Mometasone/Formoter 100/5 MDI INH SCH (07:28)
[2017-10-15] MEDS: Tiotropium CAP.INH* CAP.INH/18 MCG (USE ORDER SET !) INH SCH (07:28)
[2017-10-15 08:00] LABS: ABS Basophils 0 10^3/ul (0-0.2); ABS Eosinophils 0.1 10^3/ul (0-0.6); ABS Lymphocytes 0.6 10^3/ul (1.0-4.8); ABS Monocytes 0.3 10^3/ul (0-0.8); ABS Neutrophils 3.5 10^3/ul (1.5-7.7); ABS Nucleated RBC 0 10^3/ul; Eosinophil % 1.8 % (0-6); Hematocrit 23 % (35-47); Hemoglobin 7.8 g/dl (12.0-16.0); Lymphocyte % 12.9 % (25-47); Mean Corpuscular HGB Conc 34 g/dl (31-36); Mean Corpuscular Hemoglobin 29 pg (27-31); Mean Corpuscular Volume 86 fL (80-97); Mean Platelet Volume 9 um3 (7.4-10.4); Nucleated Red Blood Cells % 0; Platelet Count 80 10^3/ul (150-450); Red Blood Count 2.67 10^6/ul (4.0-5.4); Red Cell Distribution Width 17 % (10.5-15); White Blood Count 4.5 10^3/ul (3.5-10.8)
[2017-10-15 08:12] LABS: EGFR Non-African American 20.8 (>60)
[2017-10-15] MEDS: Nitroglycerin 0.2 MG/HR PATCH* (5 MG) TRANSDERM SCH (09:27)
[2017-10-15] MEDS: Magnesium Oxide TAB* 400 MG PO SCH (09:27)
[2017-10-15] MEDS: Aspirin Low Dose CHEW TAB* 81 MG PO SCH (09:27)
[2017-10-15] MEDS: Metolazone TAB* 5 MG PO SCH (09:27)
[2017-10-15] MEDS: Furosemide IV* 10 MG/ML 2 ML VIAL (20 MG) IV SLOW PU SCH (09:27)
[2017-10-15] MEDS: Nystatin TOP POWDER* 15 GM BTL TOPICAL SCH ×2 (09:28→20:31)
[2017-10-15] MEDS: Isosorbide Dinitrate TAB* 10 MG PO SCH ×2 (14:42→20:20)
[2017-10-15] MEDS: Atorvastatin* 20 MG TAB PO SCH (18:11)
[2017-10-15] MEDS: Gabapentin CAP(*) 300 MG PO SCH (18:11)
--- NOTE | 2017-10-15 18:48 | PN ---
Progress Note - Progress Note Date of Service: 10/15/17 SOAP: Subjective: The same to slightly better. No fevers, she does not understand why blood counts change. Objective: Vital Signs Temp Pulse Resp BP Pulse Ox 97.6 F 84 14 159/88 97 10/15/17 16:33 10/15/17 16:33 10/15/17 16:33 10/15/17 16:33 10/15/17 16:33 HEENT: op moist CTA RRR S1S2 ABD soft nt +bs RLE 1+ LE pitting edema A+Ox 3, did not ambulated, grossly nonfocal Laboratory Results - last 24 hr 10/14/17 10/15/17 10/15/17 20:12 01:25 04:17 WBC RBC Hgb Hct MCV MCH MCHC RDW Plt Count MPV Neut % (Auto) Lymph % (Auto) Granite % (Auto) Eos % (Auto) Baso % (Auto) Absolute Neuts (auto) Absolute Lymphs (auto) Absolute Monos (auto) Absolute Eos (auto) Absolute Basos (auto) Absolute Nucleated RBC Nucleated RBC % Sodium Potassium Chloride Carbon Dioxide Anion Gap BUN Creatinine Est GFR ( Amer) Est GFR (Non-Af Amer) BUN/Creatinine Ratio Glucose POC Glucose (mg/dL) 125 H 101 H 102 H Calcium Magnesium Total Bilirubin AST ALT Alkaline Phosphatase Total Protein Albumin Globulin Albumin/Globulin Ratio 10/15/17 10/15/17 10/15/17 07:40 07:40 08:34 WBC 4.5 RBC 2.67 L Hgb 7.8 L Hct 23 L MCV 86 MCH 29 MCHC 34 RDW 17 H Plt Count 80 L MPV 9 Neut % (Auto) 77.6 Lymph % (Auto) 12.9 L Granite % (Auto) 6.9 Eos % (Auto) 1.8 Baso % (Auto) 0.8 Absolute Neuts (auto) 3.5 Absolute Lymphs (auto) 0.6 L Absolute Monos (auto) 0.3 Absolute Eos (auto) 0.1 Absolute Basos (auto) 0 Absolute Nucleated RBC 0 Nucleated RBC % 0 Sodium 136 Potassium 4.3 Chloride 107 Carbon Dioxide 23 Anion Gap 6 BUN 63 H Creatinine 2.41 H Est GFR ( Amer) 26.7 Est GFR (Non-Af Amer) 20.8 BUN/Creatinine Ratio 26.1 H Glucose 108 H POC Glucose (mg/dL) 100 Calcium 8.2 L Magnesium 2.4 Total Bilirubin 0.30 AST 12 L ALT 10 Alkaline Phosphatase 111 H Total Protein 5.6 L Albumin 2.9 L Globulin 2.7 Albumin/Globulin Ratio 1.1 10/15/17 10/15/17 12:14 17:16 WBC RBC Hgb Hct MCV MCH MCHC RDW Plt Count MPV Neut % (Auto) Lymph % (Auto) Granite % (Auto) Eos % (Auto) Baso % (Auto) Absolute Neuts (auto) Absolute Lymphs (auto) Absolute Monos (auto) Absolute Eos (auto) Absolute Basos (auto) Absolute Nucleated RBC Nucleated RBC % Sodium Potassium Chloride Carbon Dioxide Anion Gap BUN Creatinine Est GFR ( Amer) Est GFR (Non-Af Amer) BUN/Creatinine Ratio Glucose POC Glucose (mg/dL) 145 H 141 H Calcium Magnesium Total Bilirubin AST ALT Alkaline Phosphatase Total Protein Albumin Globulin Albumin/Globulin Ratio Assessment: 57 yo F w multiple medical problems, long standing anemia with essentially normal bone marrow 6 months ago, now with anemia and thrombocytopenia. Etiology of acute decrease in counts is unclear. Given preserved marrow function , low production anemia is likely multi factorial from CRI, chronic disease, possible myelosuppression from medication. Thrombocytopenia may be medication induced, consumption from infection, ITP. 1. Blood counts stable to improving, follow and transfuse as needed 2. No changes in medication at this time. 3. No Heparin
[2017-10-15] MEDS: Ondansetron INJ* 2 MG/ML VIAL IV PRN (20:19)
[2017-10-15] MEDS: Pramipexole TAB* 0.125 MG PO SCH (20:21)
--- NOTE | 2017-10-15 21:20 | PN ---
Subjective Date of Service: 10/15/17 Interval History: Patient feeling progressively better day to day, more confident with swallowing. Able mary jane advanced to a regular diet. Patient states neurological deficits including pain are improving. Patient denies F/C, N/V, abdominal pain, CP, SOB, dizziness, or other pain. Family History: Unchanged from Admission Social History: Unchanged from Admission Past Medical History: Unchanged from Admission Objective Active Medications: Acetaminophen (Tylenol Supp*) 650 mg ND Q6H PRN PRN Reason: FEVER/HEADACHE Acetaminophen (Tylenol Tab*) 650 mg PO Q6H PRN PRN Reason: PAIN Albuterol/Ipratropium (Duoneb (Albuterol 2.5 Mg/Ipratropium 0.5 Mg)) 1 neb INH TID PRN PRN Reason: SHORTNESS OF BREATH Aspirin (Aspirin Low Dose Tab*) 81 mg PO DAILY [facility] Last Admin: 10/15/17 09:27 Dose: 81 mg Atorvastatin Calcium (Lipitor*) 20 mg PO QPM [facility] Last Admin: 10/15/17 18:11 Dose: Not Given Dextrose (D50w Syringe 50 Ml*) 12.5 gm IV PUSH .FOR FS < 60 - SS PRN PRN Reason: FS < 60 Last Admin: 10/12/17 10:47 Dose: 12.5 gm Furosemide (Lasix Iv*) 20 mg IV SLOW PU DAILY [facility] Last Admin: 10/15/17 09:27 Dose: 20 mg Gabapentin (Neurontin Cap(*)) 1,800 mg PO QPM [facility] Last Admin: 10/15/17 18:11 Dose: Not Given Heparin Sodium (Porcine) (Heparin Flush Port (Ivad)) 5 ml FLUSH 0900,2100 [facility] PRN Reason: Protocol Last Admin: 10/15/17 20:22 Dose: 5 ml Aztreonam 1 gm/ Sodium (Chloride) 50 mls @ 200 mls/hr IVPB Q8H [facility] Last Admin: 10/15/17 18:11 Dose: 200 mls/hr Isosorbide Dinitrate (Isordil Tab*) 10 mg PO TID [facility] Last Admin: 10/15/17 20:20 Dose: 10 mg Magnesium Oxide (Magox 400 Tab*) 400 mg PO QAM [facility] Last Admin: 10/15/17 09:27 Dose: 400 mg Metoclopramide HCl (Reglan Iv*) 5 mg IV Q6H PRN PRN Reason: NAUSEA/VOMITING Metolazone (Zaroxolyn Tab*) 5 mg PO MoWeFr@0900 [facility] Last Admin: 10/15/17 09:27 Dose: 5 mg Mometasone Furoate/Formoterol Fumar (Dulera 100/5 Mdi*) 2 puff INH QAM [facility] Last Admin: 10/15/17 07:28 Dose: 2 puff Morphine Sulfate (Morphine Inj (Syringe)*) 2 mg IV Q4H PRN PRN Reason: PAIN - MILD Last Admin: 10/15/17 20:21 Dose: 2 mg Nystatin (Nystatin Top Powder*) 1 applic TOPICAL BID [facility] Last Admin: 10/15/17 20:31 Dose: 1 applic Ondansetron HCl (Zofran Inj*) 4 mg IV Q4H PRN PRN Reason: NAUSEA Last Admin: 10/15/17 20:19 Dose: 4 mg Phenol/Menthol (Chloroseptic Throat [place]*) 1 spray MT TID PRN PRN Reason: SORE THROAT Last Admin: 10/10/17 12:14 Dose: 1 spray Pramipexole Dihydrochloride (Mirapex Tab*) 0.5 mg PO BEDTIME [facility] Last Admin: 10/15/17 20:21 Dose: 0.5 mg Tiotropium [place] (Spiriva Cap.Inh*) 1 cap INH DAILY [facility] Last Admin: 10/15/17 07:28 Dose: 1 cap Vital Signs - 8 hr 10/15/17 10/15/17 10/15/17 14:42 16:33 19:54 Temperature 97.6 F 97.9 F Pulse Rate 84 86 Respiratory 16 14 14 Rate Blood Pressure 159/88 158/83 (mmHg) O2 Sat by Pulse 97 95 Oximetry 10/15/17 20:21 Temperature Pulse Rate Respiratory 18 Rate Blood Pressure (mmHg) O2 Sat by Pulse Oximetry Oxygen Devices in Use Now: None Appearance: Patient is a 57yo female who appears stated age and is sitting in the bed in NAD. Eyes: No Scleral Icterus, PERRLA Ears/Nose/Mouth/Throat: NL Teeth, Lips, Gums, Clear Oropharnyx, Mucous Membranes Moist Neck: NL Appearance and Movements; NL JVP, Trachea Midline, No Thyroid Enlargement, Masses Respiratory: Symmetrical Chest Expansion and Respiratory Effort, Clear to Auscultation Cardiovascular: NL Sounds; No Murmurs; No JVD, RRR, - - 2+ edema in B/L LE. Decreased edema in UE. 2+ B/L popliteals and 2+ PT/DP on right. Abdominal: NL Sounds; No Tenderness; No Distention, No Hepatosplenomegaly Lymphatic: No Cervical Adenopathy Extremities: No Clubbing, Cyanosis Skin: No Nodules or Sclerosis, - - CDI surgical incision on left leg, several residual sutures left. Neurological: Alert and Oriented x 3, - - Decreased sensation to light touch on left side. 4/5 strength B/L. Slightly increased weakness on left. Reflexes symmetrical in UE. Result Diagrams: 10/15/17 07:40 10/15/17 07:40 Additional Lab and Data: Lab Results Microbiology and Other Data: Microbiology 10/08/17 00:01 Transfusion Reaction Gram Stain - Final Blood Bag 10/07/17 18:27 Nasal Screen MRSA (PCR)(RYNE) - Final Nasal Mrsa Negative Diagnostic Imaging: BLADDER US Patient Name: DAVID MESA Medical Record#: [id number] Ordering Physician: Nida Claudio NP Acct.#: [id number] : 1960 Age: 57 Sex: F Location: [address] [place] [address] - MEDICAL/TELEMETRY Exam Date: 10/11/17756 ADM Status: ADM IN Order Information: URINARY BLADDER Accession Number: [id number] CPT: 24431 Indication: Gross hematuria. Comparison: June 23, 2017 CT. Technique: Ultrasound urinary bladder. Report: Prevoid urinary bladder volume estimated at 279 mL. Uniform 2.4 mm bladder wall thickness. No focal bladder lesions evident. Bilateral ureteral jets documented. Post void residual volume estimated at 137 mL. IMPRESSION: Significant post void residual volume without additional sonographic abnormality of the urinary bladder. <Electronically signed by Moises Ying MD in OV> 10/11/17 142 Dictated By: Moises Ying MD Dictated Date/Time: 10/11/17 1421 Transcribed Date/Time: 10/11/17 1418 Copy to: CC:Jolanta Mckinley DO; Nida Claudio NP; Gurvinder Proctor MD; Moises Valdes III, MD Imaging - [facility] Imaging - [facility] Imaging - [facility] [id number] [place] [id number] [place] [address] ph ([phone]) ph ([phone]) ph ([phone]) [address] Patient Name: DAVID MESA Medical Record#: [id number] Ordering Physician: Nida Claudio NP Acct.#: [id number] : 1960 Age: 57 Sex: F Location: [address] [place] [address] MEDICAL/TELEMETRY Exam Date: 10/09/17 0949 ADM Status: ADM IN Order Information: CT BRAIN WO Accession Number: [id number] CPT: 10443 INDICATION: Anemia. Clinical suspicion for cerebrovascular accident. COMPARISON: Most recent CT of the brain is dated August 09, 2015 TECHNIQUE: Contiguous axial sections of the brain were obtained from the skull base to the vertex without contrast. FINDINGS: The ventricles, cisterns and sulci are within normal limits. Similar to the prior brain there is mild periventricular and subcortical white matter hypoattenuation. At the right rosalee (image 9 of 32) there is a questionable hypoattenuating focus measuring 1.1 cm that was not definitely seen on the most recent CT of the brain. Elsewhere the magana-white matter differentiation is adequately maintained and there is no sulcal effacement. No significant focal abnormality or mass effect is present. There is no evidence for intracranial hemorrhage. No significant focal osseous abnormality is present. The visualized portion of the paranasal sinuses appear clear. The mastoid air cells are well aerated bilaterally. IMPRESSION: 1. There is a highly questionable focus of hypoattenuation involving the right rosalee. This correlates to the patient's neurologic symptomatology then further characterization can be made with MRI of the brain. 2. Evidence of chronic microvascular disease similar in appearance to the prior CT of the brain dated August 09, 2015. Findings were discussed with Nida Claudio NP over the telephone at 1010 hours on October 09, 2017. <Electronically signed by Graham Zavala MD in OV> 10/09/17 1013 Dictated By: Graham Zavala MD Dictated Date/Time: 10/09/17 1013 Transcribed Date/Time: 10/09/17 1000 Copy to: CC:Jolanta Mckinley DO; Nida Claudio [employer]; Gurvinder Proctor MD; Moises Valdes III, MD Imaging - [facility] Imaging - [facility] Imaging [facility] [address] 1 of 2 CTA HEAD CTA HEAD 10/09/17 Patient Name: DAVID MESA Medical Record#: [id number] Ordering Physician: Nida Claudio NP Acct.#: [id number] : 1960 Age: 57 Sex: F Location: [address] [place] [address] - MEDICAL/TELEMETRY Exam Date: 10/09/17 1040 ADM Status: ADM IN Assess/Plan/Problems-Billing Assessment: This is a 57 year old female patient with hx of acute on chronic HF, symptomatic anemia, IDDM and now presenting with CVA, dysphagia and blurring of her left eye. - Patient Problems (1) CVA (cerebral vascular accident) Current Visit: Yes Status: Acute Code(s): I63.9 - CEREBRAL INFARCTION, UNSPECIFIED SNOMED Code(s): 381778100 Comment: Acute changes in right rosalee per CT scan but not on CTA Per neuro, will still treat clinically for CVA Not a candidate for TPA Cannot MRI 2/2 AICD/PM Continue ASA, hold plavix Echo inadequately assess bubble study. Lipids appropriate, A1C is uncontrolled at 16 Continue supportive care (2) Dysphagia Current Visit: Yes Status: Acute Code(s): R13.10 - DYSPHAGIA, UNSPECIFIED SNOMED Code(s): 29352102 Comment: Appreciate speech therapy input. Recommend Thin liquids and regular diet. Patient able to swallow today without difficulty. Barium swallow shows no aspiration. Patient eating adequately at this time. (3) LELIA (acute kidney injury) Current Visit: No Status: Acute Code(s): N17.9 - ACUTE KIDNEY FAILURE, UNSPECIFIED SNOMED Code(s): 01262371 Comment: Cret decreased today, H/H stable. Likely intravascularly depleted despite fluid overload. Continue lasix equivalent to home dose of torsemide. Will monitor. (4) Acute on chronic systolic (congestive) heart failure Current Visit: No Status: Acute Priority: High Code(s): I50.23 - ACUTE ON CHRONIC SYSTOLIC (CONGESTIVE) HEART FAILURE SNOMED Code(s): 613153418 Comment: Was resolved. Worsened again from fluids. Improving Slight crackles in lungs now resolved. Positive 8L and up at least 2 pounds since admission. Will Give lasix 20mg IV daily (5) Amputation of left lower extremity below knee Current Visit: No Status: Acute Code(s): Z89.512 - ACQUIRED ABSENCE OF LEFT LEG BELOW KNEE SNOMED Code(s): 691935102611955 Comment: Stable Dressing changes and wound care per protocol 19 sutures removed today. Slight bleeding from suture sites. 4 sutures remain due to difficulty. Will reattempt when less edematous. (6) Anemia Current Visit: No Status: Acute Priority: Medium Code(s): D64.9 - ANEMIA, UNSPECIFIED SNOMED Code(s): 824936546 Comment: Appreciate Hematology input. HgB 7.8 today, increased more than expected from transfusion. Normocytic, no s/s acute blood loss, likely AOCD and CKD (per record, bone marrow biopsy showed no MDS) Iron, TIBC and Ferritin high. B12 normal. Reticulocyte count very low. S/P 3 units PRBCs 10/07, 10/08 and now on 1/2 Blood loss from labia, not profuse amounts. Will monitor and tranfuse as indicated. (7) Candidal intertrigo Current Visit: No Status: Acute Code(s): B37.2 - CANDIDIASIS OF SKIN AND NAIL SNOMED Code(s): 765044435 Comment: Minor, continue nystatin. (8) DVT prophylaxis Current Visit: No Status: Acute Code(s): PTT7508 - SNOMED Code(s): 768003806 Comment: SCD, heparin held for thrombocytopenia. (9) Gastroparesis diabeticorum Current Visit: No Status: Acute Code(s): E11.43 - TYPE 2 DIABETES W DIABETIC AUTONOMIC (POLY)NEUROPATHY; K31.84 - GASTROPARESIS SNOMED Code(s): 682287091 Comment: Continue Reglan IV for N/V (10) Thrombocytopenia Current Visit: Yes Status: Acute Code(s): D69.6 - THROMBOCYTOPENIA, UNSPECIFIED SNOMED Code(s): 262289797 Comment: Appreciate hematology input. No definite cause. Could be from Zyvox, will discontinue. At 80K. No apparent cause. Bladder US showed no clots. No more hematuria. Possibly consumptive, INR normal. Will monitor and transfuse as needed. (11) Diabetes mellitus with chronic kidney disease Current Visit: No Status: Chronic Priority: Medium Code(s): E11.22 - TYPE 2 DIABETES MELLITUS W DIABETIC CHRONIC KIDNEY DISEASE SNOMED Code(s): 28022219 Comment: BG now normal. Hold Lantus until warranted. BG Q4H with and Lispro SS D50 as needed (12) Full code status Current Visit: No Status: Acute Code(s): Z78.9 - OTHER SPECIFIED HEALTH STATUS SNOMED Code(s): 254108388 Status and Disposition: Remain inpatient for evolving CVA and multiple comorbid complications.
[2017-10-16] MEDS: Aztreonam (*) 1 GM in NS 0.9% 50 ML* 50 ML IVPB SCH ×3 (01:38→18:02)
[2017-10-16] MEDS: Morphine INJ* 2 MG/ML 1 ML SYRINGE (TWO MG - NEW SYRINGE VERSION) IV PRN ×3 (05:03→19:39)
[2017-10-16] MEDS: Ondansetron INJ* 2 MG/ML VIAL IV PRN (05:03)
[2017-10-16 06:28] LABS: ABS Basophils 0 10^3/ul (0-0.2); ABS Eosinophils 0.1 10^3/ul (0-0.6); ABS Lymphocytes 0.8 10^3/ul (1.0-4.8); ABS Monocytes 0.4 10^3/ul (0-0.8); ABS Neutrophils 1.9 10^3/ul (1.5-7.7); ABS Nucleated RBC 0 10^3/ul; Eosinophil % 3.9 % (0-6); Hematocrit 21 % (35-47); Hemoglobin 7.3 g/dl (12.0-16.0); Lymphocyte % 24.7 % (25-47); Mean Corpuscular HGB Conc 35 g/dl (31-36); Mean Corpuscular Hemoglobin 30 pg (27-31); Mean Corpuscular Volume 86 fL (80-97); Mean Platelet Volume 9 um3 (7.4-10.4); Nucleated Red Blood Cells % 0; Platelet Count 85 10^3/ul (150-450); Red Blood Count 2.46 10^6/ul (4.0-5.4); Red Cell Distribution Width 18 % (10.5-15); White Blood Count 3.2 10^3/ul (3.5-10.8)
[2017-10-16 06:30] LABS: EGFR Non-African American 25.9 (>60)
[2017-10-16] MEDS: Furosemide IV* 10 MG/ML 2 ML VIAL (20 MG) IV SLOW PU SCH (09:17)
[2017-10-16] MEDS: Magnesium Oxide TAB* 400 MG PO SCH (09:17)
[2017-10-16] MEDS: Isosorbide Dinitrate TAB* 10 MG PO SCH ×3 (09:17→22:21)
[2017-10-16] MEDS: Aspirin Low Dose CHEW TAB* 81 MG PO SCH (09:17)
[2017-10-16] MEDS: Nystatin TOP POWDER* 15 GM BTL TOPICAL SCH ×2 (09:18→22:27)
--- NOTE | 2017-10-16 09:44 | PN ---
Progress Note - Progress Note Date of Service: 10/16/17 SOAP: Subjective: [] No change. Feeling the same. Fatigued. No fevers. Acetaminophen (Tylenol Supp*) 650 mg [place] Q6H PRN PRN Reason: FEVER/HEADACHE Acetaminophen (Tylenol Tab*) 650 mg PO Q6H PRN PRN Reason: PAIN Albuterol/Ipratropium (Duoneb (Albuterol 2.5 Mg/Ipratropium 0.5 Mg)) 1 neb INH TID PRN PRN Reason: SHORTNESS OF BREATH Aspirin (Aspirin Low Dose Tab*) 81 mg PO DAILY [facility] Last Admin: 10/16/17 09:17 Dose: 81 mg Atorvastatin Calcium (Lipitor*) 20 mg PO QPM [facility] Last Admin: 10/15/17 18:11 Dose: Not Given Dextrose (D50w Syringe 50 Ml*) 12.5 gm IV PUSH .FOR FS < 60 - SS PRN PRN Reason: FS < 60 Last Admin: 10/12/17 10:47 Dose: 12.5 gm Furosemide (Lasix Iv*) 20 mg IV SLOW PU DAILY [facility] Last Admin: 10/16/17 09:17 Dose: 20 mg Gabapentin (Neurontin Cap(*)) 1,800 mg PO QPM [facility] Last Admin: 10/15/17 18:11 Dose: Not Given Heparin Sodium (Porcine) (Heparin Flush Port (Ivad)) 5 ml FLUSH 0900,2100 [facility] PRN Reason: Protocol Last Admin: 10/15/17 20:22 Dose: 5 ml Aztreonam 1 gm/ Sodium (Chloride) 50 mls @ 200 mls/hr IVPB Q8H [facility] Last Admin: 10/16/17 09:17 Dose: 200 mls/hr Isosorbide Dinitrate (Isordil Tab*) 10 mg PO TID [facility] Last Admin: 10/16/17 09:17 Dose: 10 mg Magnesium Oxide (Magox 400 Tab*) 400 mg PO QAM [facility] Last Admin: 10/16/17 09:17 Dose: 400 mg Metoclopramide HCl (Reglan Iv*) 5 mg IV Q6H PRN PRN Reason: NAUSEA/VOMITING Metolazone (Zaroxolyn Tab*) 5 mg PO MoWeFr@0900 [facility] Last Admin: 10/15/17 09:27 Dose: 5 mg Mometasone Furoate/Formoterol Fumar (Dulera 100/5 Mdi*) 2 puff INH QAM [facility] Last Admin: 10/15/17 07:28 Dose: 2 puff Morphine Sulfate (Morphine Inj (Syringe)*) 2 mg IV Q4H PRN PRN Reason: PAIN - MILD Last Admin: 10/16/17 05:03 Dose: 2 mg Nystatin (Nystatin Top Powder*) 1 applic TOPICAL BID [facility] Last Admin: 10/16/17 09:18 Dose: 1 applic Ondansetron HCl (Zofran Inj*) 4 mg IV Q4H PRN PRN Reason: NAUSEA Last Admin: 10/16/17 05:03 Dose: 4 mg Phenol/Menthol (Chloroseptic Throat [place]*) 1 spray MT TID PRN PRN Reason: SORE THROAT Last Admin: 10/10/17 12:14 Dose: 1 spray Pramipexole Dihydrochloride (Mirapex Tab*) 0.5 mg PO BEDTIME [facility] Last Admin: 10/15/17 20:21 Dose: 0.5 mg Tiotropium [place] (Spiriva Cap.Inh*) 1 cap INH DAILY [facility] Last Admin: 10/15/17 07:28 Dose: 1 cap Objective: [] Vital Signs Temp Pulse Resp BP Pulse Ox 97.5 F 85 16 158/87 99 10/16/17 07:44 10/16/17 07:44 10/16/17 07:52 10/16/17 07:44 10/16/17 07:44 HEENT: op moist CTA RRR S1S2 ABD soft nt +bs RLE 1+ LE pitting edema Stump on left clean and dry, no clear infection. A+Ox 3, did not ambulated, grossly nonfocal Assessment: 57 yo F w multiple medical problems, long standing anemia with essentially normal bone marrow 6 months ago, now with anemia and thrombocytopenia. Etiology of acute decrease in counts is unclear. Given preserved marrow function , low production anemia is likely multi factorial from CRI, chronic disease, possible myelosuppression from medication. Thrombocytopenia may be medication induced, consumption from infection, ITP. 1. Platlets continue to improve, follow. 2. Anemia progressive, will check eryithropoetin level and consider Epo 50 mcg/ kg TIW if remains transfusion dependent. 3. No Heparin
[2017-10-16] MEDS: Mometasone/Formoter 100/5 MDI INH SCH (09:51)
[2017-10-16] MEDS: Tiotropium CAP.INH* CAP.INH/18 MCG (USE ORDER SET !) INH SCH (09:52)
[2017-10-16 11:55] LABS: Immature Retic Fraction 0.13
[2017-10-16 12:00] LABS: Hematocrit for Retic CNT 21 % (35-47); RBC Retic Count 2.46 10^6/ul (4.6-6.2)
--- NOTE | 2017-10-16 12:01 | PN ---
Subjective Date of Service: 10/16/17 Interval History: Patient seen and examined. No acute overnight events. States she feels like she' s swallowing/eating a little better. States blurry vision in left eye and still has pain in left hand/fingers. Denies acute SOB, no chest pain. Feels fatigued. No fevers or chills. No n/v/d. States hematuria has resolved. Family History: Unchanged from Admission Social History: Unchanged from Admission Past Medical History: Unchanged from Admission Objective Active Medications: Acetaminophen (Tylenol Supp*) 650 mg SC Q6H PRN PRN Reason: FEVER/HEADACHE Acetaminophen (Tylenol Tab*) 650 mg PO Q6H PRN PRN Reason: PAIN Albuterol/Ipratropium (Duoneb (Albuterol 2.5 Mg/Ipratropium 0.5 Mg)) 1 neb INH TID PRN PRN Reason: SHORTNESS OF BREATH Aspirin (Aspirin Low Dose Tab*) 81 mg PO DAILY [facility] Last Admin: 10/16/17 09:17 Dose: 81 mg Atorvastatin Calcium (Lipitor*) 20 mg PO QPM [facility] Last Admin: 10/15/17 18:11 Dose: Not Given Dextrose (D50w Syringe 50 Ml*) 12.5 gm IV PUSH .FOR FS < 60 - SS PRN PRN Reason: FS < 60 Last Admin: 10/12/17 10:47 Dose: 12.5 gm Furosemide (Lasix Iv*) 20 mg IV SLOW PU DAILY [facility] Last Admin: 10/16/17 09:17 Dose: 20 mg Gabapentin (Neurontin Cap(*)) 1,800 mg PO QPM [facility] Last Admin: 10/15/17 18:11 Dose: Not Given Heparin Sodium (Porcine) (Heparin Flush Port (Ivad)) 5 ml FLUSH 0900,2100 [facility] PRN Reason: Protocol Last Admin: 10/16/17 10:13 Dose: 5 ml Aztreonam 1 gm/ Sodium (Chloride) 50 mls @ 200 mls/hr IVPB Q8H [facility] Last Admin: 10/16/17 09:17 Dose: 200 mls/hr Isosorbide Dinitrate (Isordil Tab*) 10 mg PO TID [facility] Last Admin: 10/16/17 09:17 Dose: 10 mg Magnesium Oxide (Magox 400 Tab*) 400 mg PO QAM [facility] Last Admin: 10/16/17 09:17 Dose: 400 mg Metoclopramide HCl (Reglan Iv*) 5 mg IV Q6H PRN PRN Reason: NAUSEA/VOMITING Metolazone (Zaroxolyn Tab*) 5 mg PO MoWeFr@0900 [facility] Last Admin: 10/15/17 09:27 Dose: 5 mg Mometasone Furoate/Formoterol Fumar (Dulera 100/5 Mdi*) 2 puff INH QAM [facility] Last Admin: 10/16/17 09:51 Dose: Not Given Morphine Sulfate (Morphine Inj (Syringe)*) 2 mg IV Q4H PRN PRN Reason: PAIN - MILD Last Admin: 10/16/17 05:03 Dose: 2 mg Nystatin (Nystatin Top Powder*) 1 applic TOPICAL BID [facility] Last Admin: 10/16/17 09:18 Dose: 1 applic Ondansetron HCl (Zofran Inj*) 4 mg IV Q4H PRN PRN Reason: NAUSEA Last Admin: 10/16/17 05:03 Dose: 4 mg Phenol/Menthol (Chloroseptic Throat [place]*) 1 spray MT TID PRN PRN Reason: SORE THROAT Last Admin: 10/10/17 12:14 Dose: 1 spray Pramipexole Dihydrochloride (Mirapex Tab*) 0.5 mg PO BEDTIME [facility] Last Admin: 10/15/17 20:21 Dose: 0.5 mg Tiotropium [place] (Spiriva Cap.Inh*) 1 cap INH DAILY [facility] Last Admin: 10/16/17 09:52 Dose: Not Given Vital Signs - 8 hr 10/16/17 10/16/17 10/16/17 04:56 05:03 07:44 Temperature 97.1 F 97.5 F Pulse Rate 89 85 Respiratory 18 20 16 Rate Blood Pressure 155/81 158/87 (mmHg) O2 Sat by Pulse 96 99 Oximetry 10/16/17 10/16/17 07:49 07:52 Temperature Pulse Rate Respiratory 16 16 Rate Blood Pressure (mmHg) O2 Sat by Pulse Oximetry Oxygen Devices in Use Now: None Appearance: Alert, NAD Eyes: PERRLA Ears/Nose/Mouth/Throat: Mucous Membranes Moist Neck: NL Appearance and Movements; NL JVP, Trachea Midline Respiratory: Symmetrical Chest Expansion and Respiratory Effort, - - fine crackles at left base, no wheezes Abdominal: NL Sounds; No Tenderness; No Distention Extremities: No Edema, - - left BKA Neurological: Alert and Oriented x 3, - - LUE weakness Nutrition: Taking PO's Result Diagrams: 10/16/17 06:05 10/16/17 06:05 Additional Lab and Data: Lab Results Microbiology and Other Data: Microbiology 10/08/17 00:01 Transfusion Reaction Gram Stain - Final Blood Bag 10/07/17 18:27 Nasal Screen MRSA (PCR)(RYNE) - Final Nasal Mrsa Negative Diagnostic Imaging: Barium SWALLOW Patient Name: DAVID MESA Medical Record#: [id number] Ordering Physician: Ana Patricio MD Acct.#: [id number] : 1960 Age: 57 Sex: F Location: [address] [place] [address] - MEDICAL/TELEMETRY Exam Date: 10/13/17 1132 ADM Status: ADM IN Order Information: SWALLOWING FUNCTION Accession Number: [id number] CPT: 46135 INDICATION: Dysphagia, absent gag reflex. COMPARISON: There are no prior studies available for comparison. Technique: A swallowing function test was performed in conjunction with the speech pathologist. The patient was fluoroscopically lateral projection while swallowing thin and thick liquids and solids coated with barium. Approximately 2.5 minutes of intermittent fluoroscopic guidance were used during the exam. Findings: The patient had difficulty initiating swallowing especially with solid materials. There was pooling of contrast within the valleculae and piriform sinuses. No aspiration was noted. IMPRESSION: ORAL PHARYNGEAL DYSPHAGIA DESCRIBED. CPT II Codes: 6045F <Electronically signed by Vargas Davenport MD in [place]> 10/13/17 143 Dictated By: Vargas Davenport MD Dictated Date/Time: 10/13/17 143 Transcribed Date/Time: 10/13/17 1430 Copy to: [facility] Patient Name: DAVID MESA Medical Record#: [id number] Ordering Physician: Nida Claudio NP Acct.#: [id number] : 1960 Age: 57 Sex: F Location: [address] [place] [address]/TELEMETRY Exam Date: 10/11/17 0757 ADM Status: ADM IN Order Information: US URINARY BLADDER Accession Number: [id number] CPT: 85899 Indication: Gross hematuria. Comparison: June 23, 2017 CT. Technique: Ultrasound urinary bladder. Report: Prevoid urinary bladder volume estimated at 279 mL. Uniform 2.4 mm bladder wall thickness. No focal bladder lesions evident. Bilateral ureteral jets documented. Post void residual volume estimated at 137 mL. IMPRESSION: Significant post void residual volume without additional sonographic abnormality of the urinary bladder. <Electronically signed by Moises Ying MD in [place]> 10/11/17 1421 Dictated By: Moises Ying MD Dictated Date/Time: 10/11/17 1421 Transcribed Date/Time: 10/11/17 1418 Copy to: CT HEAD Patient Name: DAVID MESA Medical Record#: [id number] Ordering Physician: Nida Claudio NP Acct.#: [id number] : 1960 Age: 57 Sex: F [facility] Exam Date: 10/09/17 0949 ADM Status: ADM IN Order Information: CT BRAIN WO Accession Number: [id number] CPT: 78401 INDICATION: Anemia. Clinical suspicion for cerebrovascular accident. COMPARISON: Most recent CT of the brain is dated August 09, 2015 TECHNIQUE: Contiguous axial sections of the brain were obtained from the skull base to the vertex without contrast. FINDINGS: The ventricles, cisterns and sulci are within normal limits. Similar to the prior brain there is mild periventricular and subcortical white matter hypoattenuation. At the right rosalee (image 9 of 32) there is a questionable hypoattenuating focus measuring 1.1 cm that was not definitely seen on the most recent CT of the brain. Elsewhere the magana-white matter differentiation is adequately maintained and there is no sulcal effacement. No significant focal abnormality or mass effect is present. There is no evidence for intracranial hemorrhage. No significant focal osseous abnormality is present. The visualized portion of the paranasal sinuses appear clear. The mastoid air cells are well aerated bilaterally. IMPRESSION: 1. There is a highly questionable focus of hypoattenuation involving the right rosalee. This correlates to the patient's neurologic symptomatology then further characterization can be made with MRI of the brain. 2. Evidence of chronic microvascular disease similar in appearance to the prior CT of the brain dated August 09, 2015. Findings were discussed with Nida Claudio NP over the telephone at 1010 hours on October 09, 2017. <Electronically signed by Graham Zavala MD in [place]> 10/09/17 1013 Dictated By: Graham Zavala MD Dictated Date/Time: 10/09/17 1013 Transcribed Date/Time: 10/09/17 1000 Copy to: Assess/Plan/Problems-Billing Assessment: This is a 57 year old female with complex comorbidities that was initially admitted for acute on chronic exac of CHF and symptomatic anemia of chronic disease that also had CVA with resulting dysphagia, left side deficit. - Patient Problems (1) Acute on chronic systolic (congestive) heart failure Code(s): I50.23 - ACUTE ON CHRONIC SYSTOLIC (CONGESTIVE) HEART FAILURE SNOMED Code(s): 726612826 Comment: - Was resolving then worsening 2/2 NPO status and the need for IVF and low sugars - Lasix IV daily again - Daily weights, I&Os - Watch renal fx while diuresing (2) Amputation of left lower extremity below knee Code(s): Z89.512 - ACQUIRED ABSENCE OF LEFT LEG BELOW KNEE SNOMED Code(s): 954006496321860 Comment: - Local wound care - Most sutures removed this week, 4 left but too much edema to remove, reassess later this week (3) Anemia Code(s): D64.9 - ANEMIA, UNSPECIFIED SNOMED Code(s): 936587430 Comment: - Hematology consult appreciated - s/p 3 units PRBCs this admission - 2/2 AOCD and CKD, may start EPO - Labial bleeding resolved - Hold plavix, OK for ASA low dose - Labs noted - Monitor for bleeding, transfuse as needed (4) Osteomyelitis Code(s): M86.9 - OSTEOMYELITIS, UNSPECIFIED SNOMED Code(s): 10501141 Comment: - Continue aztreonam - DC linezolid - BKA site is clean and patient is afebrile (5) CAD (coronary artery disease) Code(s): I25.10 - ATHSCL HEART DISEASE OF [place] CORONARY ARTERY W/O ANG PCTRS SNOMED Code(s): 06730842 Comment: - s/p stenting and CABG, AICD/PM - ECHO was limited study, bubble could not be completed, EF 35-40% (6) CKD (chronic kidney disease) stage 3, GFR 30-59 ml/min Code(s): N18.3 - CHRONIC KIDNEY DISEASE, STAGE 3 (MODERATE) SNOMED Code(s): 310816681 Comment: - Creat was at baseline but rising again likely 2/2 lasix - Continue to monitor (7) COPD (chronic obstructive pulmonary disease) Code(s): J44.9 - CHRONIC OBSTRUCTIVE PULMONARY DISEASE, UNSPECIFIED SNOMED Code(s): 80726959 Comment: - Continue Spiriva and Dulera, stable (8) Diabetes mellitus with chronic kidney disease Code(s): E11.22 - TYPE 2 DIABETES MELLITUS W DIABETIC CHRONIC KIDNEY DISEASE SNOMED Code(s): 22971444 Comment: - Lispro SS as needed - No long acting, as sugars are within normal range (9) HTN (hypertension) Code(s): I10 - ESSENTIAL (PRIMARY) HYPERTENSION SNOMED Code(s): 57224116 Comment: - BP stable (10) Peripheral vascular disease Code(s): I73.9 - PERIPHERAL VASCULAR DISEASE, UNSPECIFIED SNOMED Code(s): 925829756 Comment: - Continue ASA and statin (11) CVA (cerebral vascular accident) Code(s): I63.9 - CEREBRAL INFARCTION, UNSPECIFIED SNOMED Code(s): 693696961 Comment: - Acute changes in right rosalee per CT scan but not on CTA? - Per neuro, will still treat clinically for CVA - Not a candidate for TPA - Cannot MRI 2/2 AICD/PM - Continue ASA and statin, hold plavix - Echo inadequately assess bubble study. - Lipids appropriate - A1C is uncontrolled at 16, but BG is improved during this admission - PT and supportive care (12) Dysphagia Code(s): R13.10 - DYSPHAGIA, UNSPECIFIED SNOMED Code(s): 92805107 Comment: - Speech and barium swallow complete - No clinical aspiration, able to swallow thin liquids - Continue to work with patient patient on issues with fear (13) Hematuria Code(s): R31.9 - HEMATURIA, UNSPECIFIED SNOMED Code(s): 00950143 Comment: - Resolved - Bladder US with no wall thickening - May have been more r/t labial bleeding/jorge rather than in urine (14) Candidal intertrigo Code(s): B37.2 - CANDIDIASIS OF SKIN AND NAIL SNOMED Code(s): 195460232 Comment: - Continue nystatin. (15) Pancytopenia Code(s): D61.818 - OTHER PANCYTOPENIA SNOMED Code(s): 864779688 Comment: - Concern that irregularities in labs are 2/2 prolonged linezolid administration? Also given that patient is c/o left eye vision changes and neuropathic pain in left hand, which can also be serious side effects of linezolid (optic neuropathy and peripheral neuropathy). Also of note, CTA of head was negative for infarct so I'm not sure that these symptoms correlate with CVA and may actually correlate more with medication reaction. - Will discuss with ID Status and Disposition: Remain inpatient. Counseling and/or Coordination of Care Minutes: coordinated with patient and staff.
[2017-10-16] MEDS: Gabapentin CAP(*) 300 MG PO SCH (18:02)
[2017-10-16] MEDS: Atorvastatin* 20 MG TAB PO SCH (18:02)
[2017-10-16] MEDS: Pramipexole TAB* 0.125 MG PO SCH (22:21)
[2017-10-17] MEDS: Morphine INJ* 2 MG/ML 1 ML SYRINGE (TWO MG - NEW SYRINGE VERSION) IV PRN ×2 (00:14→08:36)
[2017-10-17] MEDS: Aztreonam (*) 1 GM in NS 0.9% 50 ML* 50 ML IVPB SCH ×3 (01:47→17:44)
[2017-10-17] MEDS: Mometasone/Formoter 100/5 MDI INH SCH (08:28)
[2017-10-17] MEDS: Tiotropium CAP.INH* CAP.INH/18 MCG (USE ORDER SET !) INH SCH (08:28)
[2017-10-17] MEDS: Isosorbide Dinitrate TAB* 10 MG PO SCH ×3 (08:36→20:37)
[2017-10-17] MEDS: Furosemide IV* 10 MG/ML 2 ML VIAL (20 MG) IV SLOW PU SCH (08:36)
[2017-10-17] MEDS: Aspirin Low Dose CHEW TAB* 81 MG PO SCH (08:36)
[2017-10-17] MEDS: Nystatin TOP POWDER* 15 GM BTL TOPICAL SCH ×2 (08:36→20:52)
[2017-10-17] MEDS: Magnesium Oxide TAB* 400 MG PO SCH (08:36)
[2017-10-17] MEDS ORDERED: Dextrose 50% Syringe 50 ML* 25 GM/50 ML SYRINGE IV PUSH PRN (09:58)
--- NOTE | 2017-10-17 10:18 | PN ---
Subjective Date of Service: 10/17/17 Interval History: Patient seen and examined. c/o fatigue and several episodes of diarrhea since yesterday and progressing. States she feels it's the antibiotics and is concerned. Denies SOB, no chest pain, states pain in left UE about the same, says she has some increased swelling on LUE today as well and mild blurred vision left eye. Headache improved. Afebrile. Family History: Unchanged from Admission Social History: Unchanged from Admission Past Medical History: Unchanged from Admission Objective Active Medications: Acetaminophen (Tylenol Supp*) 650 mg WI Q6H PRN PRN Reason: FEVER/HEADACHE Acetaminophen (Tylenol Tab*) 650 mg PO Q6H PRN PRN Reason: PAIN Last Admin: 10/16/17 14:22 Dose: 650 mg Albuterol/Ipratropium (Duoneb (Albuterol 2.5 Mg/Ipratropium 0.5 Mg)) 1 neb INH TID PRN PRN Reason: SHORTNESS OF BREATH Aspirin (Aspirin Low Dose Tab*) 81 mg PO DAILY [facility] Last Admin: 10/17/17 08:36 Dose: 81 mg Atorvastatin Calcium (Lipitor*) 20 mg PO QPM [facility] Last Admin: 10/16/17 18:02 Dose: 20 mg Dextrose (D50w Syringe 50 Ml*) 12.5 gm IV PUSH .FOR FS < 60 - SS PRN PRN Reason: FS < 60 Last Admin: 10/12/17 10:47 Dose: 12.5 gm Dextrose (D50w Syringe 50 Ml*) 12.5 gm IV PUSH .FOR FS < 60 - SS PRN PRN Reason: FS < 60 Furosemide (Lasix Iv*) 20 mg IV SLOW PU DAILY [facility] Last Admin: 10/17/17 08:36 Dose: 20 mg Gabapentin (Neurontin Cap(*)) 1,800 mg PO QPM [facility] Last Admin: 10/16/17 18:02 Dose: 600 mg Heparin Sodium (Porcine) (Heparin Flush Port (Ivad)) 5 ml FLUSH 0900,2100 [facility] PRN Reason: Protocol Last Admin: 10/17/17 02:56 Dose: 5 ml Aztreonam 1 gm/ Sodium (Chloride) 50 mls @ 200 mls/hr IVPB Q8H [facility] Last Admin: 10/17/17 10:07 Dose: 200 mls/hr Insulin Human Lispro (Humalog*) 0 units SUBCUT ACHS [facility] PRN Reason: Protocol Isosorbide Dinitrate (Isordil Tab*) 10 mg PO TID [facility] Last Admin: 10/17/17 08:36 Dose: 10 mg Lactobacillus Rhamnosus (Culturelle*) 1 cap PO BID [facility] Magnesium Oxide (Magox 400 Tab*) 400 mg PO QAM [facility] Last Admin: 10/17/17 08:36 Dose: 400 mg Metoclopramide HCl (Reglan Iv*) 5 mg IV Q6H PRN PRN Reason: NAUSEA/VOMITING Metolazone (Zaroxolyn Tab*) 5 mg PO MoWeFr@0900 [facility] Last Admin: 10/15/17 09:27 Dose: 5 mg Mometasone Furoate/Formoterol Fumar (Dulera 100/5 Mdi*) 2 puff INH QAM [facility] Last Admin: 10/17/17 08:28 Dose: Not Given Morphine Sulfate (Morphine Inj (Syringe)*) 2 mg IV Q4H PRN PRN Reason: PAIN - MILD Last Admin: 10/17/17 08:36 Dose: 2 mg Nystatin (Nystatin Top Powder*) 1 applic TOPICAL BID [facility] Last Admin: 10/17/17 08:36 Dose: Not Given Ondansetron HCl (Zofran Inj*) 4 mg IV Q4H PRN PRN Reason: NAUSEA Last Admin: 10/16/17 05:03 Dose: 4 mg Phenol/Menthol (Chloroseptic Throat [place]*) 1 spray MT TID PRN PRN Reason: SORE THROAT Last Admin: 10/10/17 12:14 Dose: 1 spray Pramipexole Dihydrochloride (Mirapex Tab*) 0.5 mg PO BEDTIME [facility] Last Admin: 10/16/17 22:21 Dose: 0.5 mg Tiotropium [place] (Spiriva Cap.Inh*) 1 cap INH DAILY [facility] Last Admin: 10/17/17 08:28 Dose: Not Given Vital Signs - 8 hr 10/17/17 10/17/17 10/17/17 04:53 08:00 08:22 Temperature 97.8 F 97.8 F Pulse Rate 83 87 Respiratory 16 18 14 Rate Blood Pressure 142/80 154/86 (mmHg) O2 Sat by Pulse 96 96 Oximetry 10/17/17 10/17/17 08:36 09:37 Temperature Pulse Rate Respiratory 18 18 Rate Blood Pressure (mmHg) O2 Sat by Pulse Oximetry Oxygen Devices in Use Now: None Appearance: Alert, tired appearing Ears/Nose/Mouth/Throat: Mucous Membranes Moist Neck: NL Appearance and Movements; NL JVP, Trachea Midline Respiratory: Symmetrical Chest Expansion and Respiratory Effort, Clear to Auscultation - diminished bases, no crackles Cardiovascular: NL Sounds; No Murmurs; No JVD, RRR Abdominal: NL Sounds; No Tenderness; No Distention Extremities: - - +2 edema LUE, dorsal aspect of hand Skin: - Neurological: Alert and Oriented x 3, - - left sided weakness improving Nutrition: Taking PO's Result Diagrams: 10/16/17 06:05 10/16/17 06:05 Additional Lab and Data: Lab Results Microbiology and Other Data: Microbiology 10/08/17 00:01 Transfusion Reaction Gram Stain - Final Blood Bag 10/07/17 18:27 Nasal Screen MRSA (PCR)(RYNE) - Final Nasal Mrsa Negative Diagnostic Imaging: Barium SWALLOW Patient Name: DAVID MESA Medical Record#: [id number] Ordering Physician: Ana Patricio MD Acct.#: [id number] : 1960 Age: 57 Sex: F Location: [address] [place] [address] MEDICAL/TELEMETRY Exam Date: 10/13/171131 ADM Status: ADM IN Order Information: SWALLOWING FUNCTION Accession Number: [id number] CPT: 00807 INDICATION: Dysphagia, absent gag reflex. COMPARISON: There are no prior studies available for comparison. Technique: A swallowing function test was performed in conjunction with the speech pathologist. The patient was fluoroscopically lateral projection while swallowing thin and thick liquids and solids coated with barium. Approximately 2.5 minutes of intermittent fluoroscopic guidance were used during the exam. Findings: The patient had difficulty initiating swallowing especially with solid materials. There was pooling of contrast within the valleculae and piriform sinuses. No aspiration was noted. IMPRESSION: ORAL PHARYNGEAL DYSPHAGIA DESCRIBED. CPT II Codes: 6045F <Electronically signed by Vargas Davenport MD in [place]> 10/13/17 1434 Dictated By: Vargas Davenport MD Dictated Date/Time: 10/13/17 1434 Transcribed Date/Time: 10/13/17 1430 Copy to: BLADDER US Patient Name: DAVID MESA Medical Record#: [id number] Ordering Physician: Nida Claudio [employer]TRANCE MONITOR Acct.#: [id number] : 1960 Age: 57 Sex: F Location: 4 [facility] MEDICAL/TELEMETRY Exam Date: 10/11/17 0757 ADM Status: ADM IN Order Information: US URINARY BLADDER Accession Number: [id number] CPT: 99487 Indication: Gross hematuria. Comparison: June 23, 2017 CT. Technique: Ultrasound urinary bladder. Report: Prevoid urinary bladder volume estimated at 279 mL. Uniform 2.4 mm bladder wall thickness. No focal bladder lesions evident. Bilateral ureteral jets documented. Post void residual volume estimated at 137 mL. IMPRESSION: Significant post void residual volume without additional sonographic abnormality of the urinary bladder. <Electronically signed by Moises Ying MD in [place]> 10/11/17 1421 Dictated By: Moises Ying MD Dictated Date/Time: 10/11/17 1421 Transcribed Date/Time: 10/11/17 1418 Copy to: CT HEAD Patient Name: DAVID MESA Medical Record#: [id number] Ordering Physician: Nida Claudio [employer]ED ENTRANCE MONITOR Acct.#: [id number] : 1960 Age: 57 Sex: F Location: 4 [facility]/TELEMETRY Exam Date: 10/09/17 0949 ADM Status: ADM IN Order Information: CT BRAIN WO Accession Number: [id number] CPT: 95414 INDICATION: Anemia. Clinical suspicion for cerebrovascular accident. COMPARISON: Most recent CT of the brain is dated August 09, 2015 TECHNIQUE: Contiguous axial sections of the brain were obtained from the skull base to the vertex without contrast. FINDINGS: The ventricles, cisterns and sulci are within normal limits. Similar to the prior brain there is mild periventricular and subcortical white matter hypoattenuation. At the right rosalee (image 9 of 32) there is a questionable hypoattenuating focus measuring 1.1 cm that was not definitely seen on the most recent CT of the brain. Elsewhere the magana-white matter differentiation is adequately maintained and there is no sulcal effacement. No significant focal abnormality or mass effect is present. There is no evidence for intracranial hemorrhage. No significant focal osseous abnormality is present. The visualized portion of the paranasal sinuses appear clear. The mastoid air cells are well aerated bilaterally. IMPRESSION: 1. There is a highly questionable focus of hypoattenuation involving the right rosalee. This correlates to the patient's neurologic symptomatology then further characterization can be made with MRI of the brain. 2. Evidence of chronic microvascular disease similar in appearance to the prior CT of the brain dated August 09, 2015. Findings were discussed with Nida Claudio NP over the telephone at 1010 hours on October 09, 2017. <Electronically signed by Graham Zavala MD in [place]> 10/09/17 1013 Dictated By: Graham Zavala MD Dictated Date/Time: 10/09/17 1013 Transcribed Date/Time: 10/09/17 1000 Copy to: Assess/Plan/Problems-Billing Assessment: This is a 57 year old female with complex comorbidities that was initially admitted for acute on chronic exac of CHF and symptomatic anemia of chronic disease that is also being clinically treated for CVA with symptoms resolving, now with acute diarrhea - Patient Problems (1) Acute on chronic systolic (congestive) heart failure Code(s): I50.23 - ACUTE ON CHRONIC SYSTOLIC (CONGESTIVE) HEART FAILURE SNOMED Code(s): 177746930 Comment: - Lasix IV daily - Daily weights, I&Os - Watch renal fx while diuresing (2) Amputation of left lower extremity below knee Code(s): Z89.512 - ACQUIRED ABSENCE OF LEFT LEG BELOW KNEE SNOMED Code(s): 528551904975831 Comment: - Local wound care - Most sutures removed this week, 4 left but too much edema to remove, reassess later this week (3) Anemia Code(s): D64.9 - ANEMIA, UNSPECIFIED SNOMED Code(s): 478803731 Comment: - Hematology consult appreciated - s/p 3 units PRBCs this admission - 2/2 AOCD and CKD, may start EPO - Labial bleeding intermittently - Hold plavix, OK for ASA low dose - Labs noted - Monitor for bleeding, transfuse as needed (4) Osteomyelitis Code(s): M86.9 - OSTEOMYELITIS, UNSPECIFIED SNOMED Code(s): 85226834 Comment: - Continue aztreonam - DC linezolid - BKA site is clean and patient is afebrile - Need to discuss atbx with Dr. Saucedo (5) CAD (coronary artery disease) Code(s): I25.10 - ATHSCL HEART DISEASE OF [place] CORONARY ARTERY W/O ANG PCTRS SNOMED Code(s): 05202063 Comment: - s/p stenting and CABG, AICD/PM - ECHO was limited study, bubble could not be completed, EF 35-40% (6) CKD (chronic kidney disease) stage 3, GFR 30-59 ml/min Code(s): N18.3 - CHRONIC KIDNEY DISEASE, STAGE 3 (MODERATE) SNOMED Code(s): 836152547 Comment: - Creat was at baseline but rising again likely 2/2 lasix - Continue to monitor (7) COPD (chronic obstructive pulmonary disease) Code(s): J44.9 - CHRONIC OBSTRUCTIVE PULMONARY DISEASE, UNSPECIFIED SNOMED Code(s): 07130828 Comment: - Continue Spiriva and Dulera, stable (8) Diabetes mellitus with chronic kidney disease Code(s): E11.22 - TYPE 2 DIABETES MELLITUS W DIABETIC CHRONIC KIDNEY DISEASE SNOMED Code(s): 21395200 Comment: - Lispro SS as needed - No long acting, as sugars are within normal range, BG ACHS (9) HTN (hypertension) Code(s): I10 - ESSENTIAL (PRIMARY) HYPERTENSION SNOMED Code(s): 14233768 Comment: - BP stable (10) Peripheral vascular disease Code(s): I73.9 - PERIPHERAL VASCULAR DISEASE, UNSPECIFIED SNOMED Code(s): 958171007 Comment: - Continue ASA and statin (11) CVA (cerebral vascular accident) Code(s): I63.9 - CEREBRAL INFARCTION, UNSPECIFIED SNOMED Code(s): 388812514 Comment: - Acute changes in right rosalee per CT scan but not on CTA? - Per neuro, will still treat clinically for CVA - Not a candidate for TPA - Cannot MRI 2/2 AICD/PM - Continue ASA and statin, hold plavix - Echo inadequately assess bubble study. - Lipids appropriate - A1C is uncontrolled at 16, but BG is improved during this admission - PT and supportive care (12) Dysphagia Code(s): R13.10 - DYSPHAGIA, UNSPECIFIED SNOMED Code(s): 16557984 Comment: - Speech and barium swallow complete - No clinical aspiration, able to swallow thin liquids - Continue to work with patient patient on issues with fear (13) Hematuria Code(s): R31.9 - HEMATURIA, UNSPECIFIED SNOMED Code(s): 02801619 Comment: - Resolved - Bladder US with no wall thickening - May have been more r/t labial bleeding/jorge rather than in urine (14) Candidal intertrigo Code(s): B37.2 - CANDIDIASIS OF SKIN AND NAIL SNOMED Code(s): 710116392 Comment: - Continue nystatin. (15) Pancytopenia Code(s): D61.818 - OTHER PANCYTOPENIA SNOMED Code(s): 017627835 Comment: - Concern that irregularities in labs are 2/2 prolonged linezolid administration? Also given that patient is c/o left eye vision changes and neuropathic pain in left hand, which can also be serious side effects of linezolid (optic neuropathy and peripheral neuropathy). Also of note, CTA of head was negative for infarct so I'm not sure that these symptoms correlate with CVA and may actually correlate more with medication reaction. - Will discuss with ID (16) Diarrhea Code(s): R19.7 - DIARRHEA, UNSPECIFIED SNOMED Code(s): 47639491 Comment: - Will order cdiff and stool cultures - Start probiotic BID Status and Disposition: Would like to start DC planning to home, as it appears HF and H&H and neuro status are stable. If cdiff is negative, may start DC planning for home by Wednesday.
[2017-10-17] MEDS: Lactobacillus Acidophilu (GG)* 1 CAP CAP PO SCH ×2 (11:41→20:37)
[2017-10-17] MEDS: Insulin LISPRO* 1 UNITS UNIT SUBCUT SCH ×3 (12:13→20:37)
[2017-10-17] MEDS: Gabapentin CAP(*) 300 MG PO SCH (17:44)
[2017-10-17] MEDS: Atorvastatin* 20 MG TAB PO SCH (17:44)
[2017-10-17] MEDS: Pramipexole TAB* 0.125 MG PO SCH (20:44)
[2017-10-17] MEDS: Ondansetron INJ* 2 MG/ML VIAL IV PRN (20:45)
[2017-10-18] MEDS: Aztreonam (*) 1 GM in NS 0.9% 50 ML* 50 ML IVPB SCH (01:12)
[2017-10-18] MEDS: Mometasone/Formoter 100/5 MDI INH SCH (08:31)
[2017-10-18] MEDS: Tiotropium CAP.INH* CAP.INH/18 MCG (USE ORDER SET !) INH SCH (08:31)
[2017-10-18] MEDS: Isosorbide Dinitrate TAB* 10 MG PO SCH ×3 (08:44→22:08)
[2017-10-18] MEDS: Magnesium Oxide TAB* 400 MG PO SCH (08:44)
[2017-10-18] MEDS: Lactobacillus Acidophilu (GG)* 1 CAP CAP PO SCH (08:44)
[2017-10-18] MEDS: Aspirin Low Dose CHEW TAB* 81 MG PO SCH (08:44)
[2017-10-18] MEDS: Metolazone TAB* 5 MG PO SCH (08:44)
[2017-10-18] MEDS: Insulin LISPRO* 1 UNITS UNIT SUBCUT SCH ×4 (08:45→22:09)
[2017-10-18] MEDS: Furosemide IV* 10 MG/ML 2 ML VIAL (20 MG) IV SLOW PU SCH (08:48)
[2017-10-18] MEDS: Nystatin TOP POWDER* 15 GM BTL TOPICAL SCH ×2 (08:52→22:09)
[2017-10-18] MEDS ORDERED: D5W IVPB SCH (09:30)
[2017-10-18] MEDS ORDERED: AZTREONAM IVPB SCH (09:30)
--- NOTE | 2017-10-18 09:51 | PN ---
Progress Note - Progress Note Date of Service: 10/18/17 SOAP: Subjective: CC: diarrhea HPI: 57 year old woman with diabetes and left BKA, on antibiotics since revision , admitted with anemia, treated for heart failure currently. Incision at L BKA is intact, not painful. Has 3-4 loose stools per day imodium had helped at home. No fever, rash, abd pain, or nausea. Objective: Vital Signs Temp 36.7 C 10/18/17 08:12 Pulse 91 10/18/17 08:12 Resp 18 10/18/17 08:12 BP 156/84 10/18/17 08:12 Pulse Ox 96 10/18/17 08:12 Intake & Output 10/17/17 10/18/17 10/18/17 18:59 06:59 18:59 Intake Total 1163 620 360 Output Total 525 800 Balance 638 -180 360 Weight 163 lb 6.4 oz Intake: IV Fluids 0 70 Aztreonam 70 Linezolid 0 IVPB 53 50 Aztreonam 50 Linezolid 53 Oral 1110 500 360 Output: Mckeon 525 800 Other: # Bowel Movements 1 Estimated Stool Amount Small Gen:awake, no distress HEENT:MMM no thrush Heart:RRR no murmur Lungs:CTA BL Abd:+BS NTND soft Skin: no rash MSK: L stump intact no erythema, diffuse BL LE edema Laboratory Results - last 24 hr 10/17/17 10/17/17 10/17/17 11:44 17:02 20:17 POC Glucose (mg/dL) 229 H 314 H 243 H 10/18/17 08:00 POC Glucose (mg/dL) 153 H Assessment: 1. Left amp site infection, resolved 2. antibiotic associated diarrhea 3. thrombocytopenia, improving ?linezolid related 4. anemia, chronic 5. diabetes, insulin dependent Plan: 1. dc aztreonam 2. imodium prn 25 minutes floor time >50% face to face in counseling regarding antibiotic plans
[2017-10-18 11:08] LABS: EGFR Non-African American 51.4 (>60)
[2017-10-18] MEDS ORDERED: CMCS - Melatonin (NF) 3 MG TAB PO PRN (11:15)
[2017-10-18 12:09] LABS: Hematocrit 20 % (35-47); Hemoglobin 6.7 g/dl (12.0-16.0); Mean Corpuscular HGB Conc 34 g/dl (31-36); Mean Corpuscular Hemoglobin 29 pg (27-31); Mean Corpuscular Volume 85 fL (80-97); Mean Platelet Volume 8 um3 (7.4-10.4); Platelet Count 130 10^3/ul (150-450); Red Blood Count 2.34 10^6/ul (4.0-5.4); Red Cell Distribution Width 18 % (10.5-15); White Blood Count 6.8 10^3/ul (3.5-10.8)
[2017-10-18 13:12] LABS: ABS Basophils 0 10^3/ul (0-0.2); ABS Eosinophils 0.2 10^3/ul (0-0.6); ABS Lymphocytes 0.9 10^3/ul (1.0-4.8); ABS Monocytes 0.7 10^3/ul (0-0.8); ABS Nucleated RBC 0 10^3/ul; Eosinophil % 2.8 % (0-6); Nucleated Red Blood Cells % 0
[2017-10-18] MEDS: Atorvastatin* 20 MG TAB PO SCH (17:07)
[2017-10-18] MEDS: Gabapentin CAP(*) 300 MG PO SCH (17:07)
--- NOTE | 2017-10-18 19:08 | PN ---
Subjective Date of Service: 10/18/17 Interval History: Feeling well today no SOB, CP Feel strength is returning Family History: Unchanged from Admission Social History: Unchanged from Admission Past Medical History: Unchanged from Admission Objective Active Medications: Acetaminophen (Tylenol Supp*) 650 mg NC Q6H PRN PRN Reason: FEVER/HEADACHE Acetaminophen (Tylenol Tab*) 650 mg PO Q6H PRN PRN Reason: PAIN Last Admin: 10/16/17 14:22 Dose: 650 mg Albuterol/Ipratropium (Duoneb (Albuterol 2.5 Mg/Ipratropium 0.5 Mg)) 1 neb INH TID PRN PRN Reason: SHORTNESS OF BREATH Aspirin (Aspirin Low Dose Tab*) 81 mg PO DAILY [facility] Last Admin: 10/18/17 08:44 Dose: 81 mg Atorvastatin Calcium (Lipitor*) 20 mg PO QPM [facility] Last Admin: 10/18/17 17:07 Dose: 20 mg Dextrose (D50w Syringe 50 Ml*) 12.5 gm IV PUSH .FOR FS < 60 - SS PRN PRN Reason: FS < 60 Last Admin: 10/12/17 10:47 Dose: 12.5 gm Dextrose (D50w Syringe 50 Ml*) 12.5 gm IV PUSH .FOR FS < 60 - SS PRN PRN Reason: FS < 60 Furosemide (Lasix Iv*) 20 mg IV SLOW PU DAILY [facility] Last Admin: 10/18/17 08:48 Dose: 20 mg Gabapentin (Neurontin Cap(*)) 1,800 mg PO QPM [facility] Last Admin: 10/18/17 17:07 Dose: 1,800 mg Heparin Sodium (Porcine) (Heparin Flush Port (Ivad)) 5 ml FLUSH 0900,2100 [facility] PRN Reason: Protocol Last Admin: 10/18/17 10:09 Dose: 5 ml Insulin Human Lispro (Humalog*) 0 units SUBCUT ACHS [facility] PRN Reason: Protocol Last Admin: 10/18/17 17:07 Dose: 6 unit Isosorbide Dinitrate (Isordil Tab*) 10 mg PO TID [facility] Last Admin: 10/18/17 14:15 Dose: 10 mg Magnesium Oxide (Magox 400 Tab*) 400 mg PO QAM [facility] Last Admin: 10/18/17 08:44 Dose: 400 mg Melatonin (Melatonin (Nf)) 3 mg PO BEDTIME PRN PRN Reason: sleep Metoclopramide HCl (Reglan Iv*) 5 mg IV Q6H PRN PRN Reason: NAUSEA/VOMITING Metolazone (Zaroxolyn Tab*) 5 mg PO MoWeFr@0900 [facility] Last Admin: 10/18/17 08:44 Dose: 5 mg Mometasone Furoate/Formoterol Fumar (Dulera 100/5 Mdi*) 2 puff INH QAM [facility] Last Admin: 10/18/17 08:31 Dose: Not Given Nystatin (Nystatin Top Powder*) 1 applic TOPICAL BID [facility] Last Admin: 10/18/17 08:52 Dose: Not Given Ondansetron HCl (Zofran Inj*) 4 mg IV Q4H PRN PRN Reason: NAUSEA Last Admin: 10/17/17 20:45 Dose: 4 mg Phenol/Menthol (Chloroseptic Throat [place]*) 1 spray MT TID PRN PRN Reason: SORE THROAT Last Admin: 10/10/17 12:14 Dose: 1 spray Pramipexole Dihydrochloride (Mirapex Tab*) 0.5 mg PO BEDTIME [facility] Last Admin: 10/17/17 20:44 Dose: 0.5 mg Tiotropium [place] (Spiriva Cap.Inh*) 1 cap INH DAILY [facility] Last Admin: 10/18/17 08:31 Dose: Not Given Vital Signs - 8 hr 10/18/17 10/18/17 10/18/17 12:02 15:28 17:07 Temperature 98.2 F 98.2 F Pulse Rate 92 94 Respiratory 16 16 16 Rate Blood Pressure 164/88 143/81 (mmHg) O2 Sat by Pulse 94 97 Oximetry Oxygen Devices in Use Now: None Appearance: NAD Eyes: No Scleral Icterus, PERRLA Ears/Nose/Mouth/Throat: NL Teeth, Lips, Gums, Clear Oropharnyx Neck: NL Appearance and Movements; NL JVP, Trachea Midline Respiratory: Symmetrical Chest Expansion and Respiratory Effort, Clear to Auscultation Cardiovascular: RRR Abdominal: NL Sounds; No Tenderness; No Distention, No Hepatosplenomegaly Lymphatic: No Cervical Adenopathy Neurological: Alert and Oriented x 3 Result Diagrams: 10/18/17 11:45 10/18/17 10:30 Additional Lab and Data: Lab Results Microbiology and Other Data: Microbiology 10/08/17 00:01 Transfusion Reaction Gram Stain - Final Blood Bag 10/07/17 18:27 Nasal Screen MRSA (PCR)(RYNE) - Final Nasal Mrsa Negative Diagnostic Imaging: Barium SWALLOW Patient Name: DAVID MESA Medical Record#: [id number] Ordering Physician: Ana Patricio MD Acct.#: [id number] : 1960 Age: 57 Sex: F Location: 4 [facility]/TELEMETRY Exam Date: 10/13/17 1132 ADM Status: ADM IN Order Information: SWALLOWING FUNCTION Accession Number: [id number] CPT: 14823 INDICATION: Dysphagia, absent gag reflex. COMPARISON: There are no prior studies available for comparison. Technique: A swallowing function test was performed in conjunction with the speech pathologist. The patient was fluoroscopically lateral projection while swallowing thin and thick liquids and solids coated with barium. Approximately 2.5 minutes of intermittent fluoroscopic guidance were used during the exam. Findings: The patient had difficulty initiating swallowing especially with solid materials. There was pooling of contrast within the valleculae and piriform sinuses. No aspiration was noted. IMPRESSION: ORAL PHARYNGEAL DYSPHAGIA DESCRIBED. CPT II Codes: 6045F <Electronically signed by Vargas Davenport MD in [place]> 10/13/17 1434 Dictated By: Vargas Davenport MD Dictated Date/Time: 10/13/17 1434 Transcribed Date/Time: 10/13/17 1430 Copy to: BLADDER US Patient Name: DAVID MESA Medical Record#: [id number] Ordering Physician: Nida Claudio NP Acct.#: [id number] : 1960 Age: 57 Sex: F [facility] Exam Date: 10/11/17 0757 ADM Status: ADM IN Order Information: US URINARY BLADDER Accession Number: [id number] CPT: 18475 Indication: Gross hematuria. Comparison: June 23, 2017 CT. Technique: Ultrasound urinary bladder. Report: Prevoid urinary bladder volume estimated at 279 mL. Uniform 2.4 mm bladder wall thickness. No focal bladder lesions evident. Bilateral ureteral jets documented. Post void residual volume estimated at 137 mL. IMPRESSION: Significant post void residual volume without additional sonographic abnormality of the urinary bladder. <Electronically signed by Moises Ying MD in [place]> 10/11/17 142 Dictated By: Moises Ying MD Dictated Date/Time: 10/11/17 142 Transcribed Date/Time: 10/11/17 1418 Copy to: CT HEAD Patient Name: DAVID MESA Medical Record#: [id number] Ordering Physician: Nida Claudio NP Acct.#: [id number] : 1960 Age: 57 Sex: F Location: [address] [place] [address] MEDICAL/TELEMETRY Exam Date: 10/09/1749 ADM Status: ADM IN Order Information: CT BRAIN WO Accession Number: [id number] CPT: 49508 INDICATION: Anemia. Clinical suspicion for cerebrovascular accident. COMPARISON: Most recent CT of the brain is dated August 09, 2015 TECHNIQUE: Contiguous axial sections of the brain were obtained from the skull base to the vertex without contrast. FINDINGS: The ventricles, cisterns and sulci are within normal limits. Similar to the prior brain there is mild periventricular and subcortical white matter hypoattenuation. At the right rosalee (image 9 of 32) there is a questionable hypoattenuating focus measuring 1.1 cm that was not definitely seen on the most recent CT of the brain. Elsewhere the magana-white matter differentiation is adequately maintained and there is no sulcal effacement. No significant focal abnormality or mass effect is present. There is no evidence for intracranial hemorrhage. No significant focal osseous abnormality is present. The visualized portion of the paranasal sinuses appear clear. The mastoid air cells are well aerated bilaterally. IMPRESSION: 1. There is a highly questionable focus of hypoattenuation involving the right rosalee. This correlates to the patient's neurologic symptomatology then further characterization can be made with MRI of the brain. 2. Evidence of chronic microvascular disease similar in appearance to the prior CT of the brain dated August 09, 2015. Findings were discussed with Nida Claudio NP over the telephone at 1010 hours on October 09, 2017. <Electronically signed by Graham Zavala MD in [place]> 10/09/17 1013 Dictated By: Graham Zavala MD Dictated Date/Time: 10/09/17 1013 Transcribed Date/Time: 10/09/17 1000 Copy to: Assess/Plan/Problems-Billing Assessment: This is a 57 year old female with complex comorbidities that was initially admitted for acute on chronic exac of CHF and symptomatic anemia of chronic disease that is also being clinically treated for CVA with symptoms resolving - Patient Problems (1) Anemia Comment: - Hematology consult appreciated - s/p 3 units PRBCs this admission - Hold plavix, OK for ASA low dose 1U PRBC (2) Dysphagia Comment: Speech and barium swallow complete resolved (3) Candidal intertrigo Comment: - Continue nystatin. (4) Diabetes mellitus with chronic kidney disease Comment: - Lispro SS as needed (5) CHF (congestive heart failure) Status: Resolved Status and Disposition: Would like to start DC planning to home, as it appears HF and H&H and neuro status are stable. If cdiff is negative, may start DC planning for home by Wednesday.
[2017-10-18] MEDS: Pramipexole TAB* 0.125 MG PO SCH (22:08)
[2017-10-18] MEDS ORDERED: Furosemide IV* 10 MG/ML 2 ML VIAL (20 MG) IV ONE (23:00)
[2017-10-19] MEDS: Ondansetron INJ* 2 MG/ML VIAL IV PRN (02:48)
[2017-10-19] MEDS ORDERED: Metolazone TAB* 5 MG PO ONE (07:52)
[2017-10-19] MEDS: Tiotropium CAP.INH* CAP.INH/18 MCG (USE ORDER SET !) INH SCH (08:36)
[2017-10-19] MEDS: Mometasone/Formoter 100/5 MDI INH SCH (08:36)
[2017-10-19] MEDS: Insulin LISPRO* 1 UNITS UNIT SUBCUT SCH ×3 (09:04→17:16)
[2017-10-19] MEDS: Aspirin Low Dose CHEW TAB* 81 MG PO SCH (09:04)
[2017-10-19] MEDS: Furosemide IV* 10 MG/ML 2 ML VIAL (20 MG) IV SLOW PU SCH (09:04)
[2017-10-19] MEDS: Magnesium Oxide TAB* 400 MG PO SCH (09:04)
[2017-10-19] MEDS: Isosorbide Dinitrate TAB* 10 MG PO SCH ×2 (09:04→13:48)
[2017-10-19] MEDS: Nystatin TOP POWDER* 15 GM BTL TOPICAL SCH (09:05)
[2017-10-19 09:25] LABS: Hematocrit 23 % (35-47); Hemoglobin 7.6 g/dl (12.0-16.0); Mean Corpuscular HGB Conc 34 g/dl (31-36); Mean Corpuscular Hemoglobin 29 pg (27-31); Mean Corpuscular Volume 86 fL (80-97); Mean Platelet Volume 9 um3 (7.4-10.4); Platelet Count 146 10^3/ul (150-450); Red Blood Count 2.67 10^6/ul (4.0-5.4); Red Cell Distribution Width 18 % (10.5-15); White Blood Count 9.7 10^3/ul (3.5-10.8)
[2017-10-19 09:57] LABS: Monocytes % 7 % (0-13)
[2017-10-19 11:36] VITALS: BP 140/76
[2017-10-19] MEDS: Gabapentin CAP(*) 300 MG PO SCH (17:16)
[2017-10-19] MEDS: Atorvastatin* 20 MG TAB PO SCH (17:16)
--- NOTE | 2017-10-19 23:30 | DS ---
CC: Dr. Valdes * DISCHARGE SUMMARY: DATE OF ADMISSION: 10/07/17 DATE OF DISCHARGE: 10/19/17 PRIMARY CARE PHYSICIAN: Dr. Valdes. ATTENDING DURING ADMISSION: Tom Vale MD * (DICTATED BY NANCI MARTINEZ NP) HOSPITAL COURSE: This is a very pleasant 57-year-old female patient who was initially admitted to the emergency department on 10/07/17 for complaints of progressive weakness and shortness of breath. She was found on admission to have a very symptomatic anemia. She had been visiting with the electronics worker for her chronic anemia; however, her outpatient laboratory numbers were on the progressive decline. The hemoglobin the day before on 10/06/17 as an outpatient was 5.7 and was also 5.7 in the emergency department. The patient was transfused 2 units of packed red blood cells and the patient was admitted after receiving 2 units blood. She also was receiving IV Lasix. Her chest film did appear to be moderately congested. She does have a history of chronic heart failure with ejection fraction of around 35%. She was feeling better the next morning. However, her heart failure began to get progressively a little worse, so she was kept inpatient for additional IV diuresis. However, the following day, she began to exhibit some symptoms of left-sided paresthesia, dysphagia, focal headache and left visual disturbance. Aziza Diaz was called. She was evaluated by Neurology. CAT scan was performed of the head. The initial reading on the CAT scan showed some new focality in the rosalee. Because the patient does have an AICD pacemaker, she was unable to get an MRI. However , she did have a followup CT angiogram. The head CTA; however, did not show the initial finding that the CAT scan did. However, she was still treated clinically for CVA as was recommended by Dr. Patricio from Neurology based on her presentation and her multiple comorbidities of her diabetes which is out of control and existing heart disease. The patient also had some subsequent dysphagia. She was evaluated by Speech and had several days of inability to swallow. She underwent a video fluoroscopic barium swallow test. The patient did not have any gag reflex; however, she did not show any signs of aspiration and slowly began to recover her ability to swallow that was approximately on 12/26, the patient's diet progressed and her symptoms began to resolve. Also of note, during the time that she was not able to swallow, she had been on long-term antibiotic therapy for an osteomyelitis of her stump. She has a previous history of the BKA of the left lower extremity. She was not taking her linezolid for several days as that medication was by mouth. She was getting her IV aztreonam; however, and it did seem that her symptoms began to subside when her linezolid stopped. It is not entirely out of the possibility that the patient's symptoms of the neuropathy, her optic neuropathy/blurred vision, as well as some diarrhea and other symptoms were actually medication related, even though she had been stabilized from these antibiotics for a long time, the linezolid perhaps is what caused these issues that she was having rather than actually having a CVA. However, she began to progress and feel better, symptoms improved. Hemoglobin stayed stable with the exception of 10/18, she had an additional drop in hemoglobin again at 6.7. She received another unit of blood at that point. Hemoglobin today is 7.6. She is no longer short of breath. She is back on her regular home medications and back at her baseline. The patient expressed her wish to go home with home nursing services. This was discussed at length with the patient and with case management, so she is being readied for discharge. MEDICATIONS AT THE TIME OF DISCHARGE: Include: 1. Torsemide 20 mg daily. 2. Spiriva 1 puff daily. 3. Pramipexole 5 mg in the evening. 4. Nitro 0.5 mg as needed. 5. Dulera 100/5, 2 puffs in the morning. 6. Metolazone 5 mg on Wednesday, Wednesday and every other Wednesday. 7. Reglan 1 tablet 5 mg 3 times a day with meals. 8. Mag-Ox 400 mg daily. 9. Isordil 10 mg 3 times a day. 10. Humalog sliding scale. 11. Gabapentin 1800 mg at night. 12. Repatha SureClick 140 mg subcu every 14 days. 13. Enalapril 2.5 mg daily. 14. Flexeril 10 mg 3 times a day as needed. 15. Lipitor 20 mg in the evening. 16. Aspirin low dose 81 mg in the morning. 17. DuoNebs 1 neb 3 times a day as needed. 18. Nystatin topical powder 2 times a day as needed. FOLLOWUP: The patient was instructed to follow up with Dr. Cantor from Hematology /Oncology for her chronic anemia. There may be a chance that she might have to start on erythropoietin injections if her anemia continues, with Dr. Ana Patricio from Neurology in the next month and Dr. Rolando Johnson, her nuclear process engineer for her chronic congestive heart failure. PHYSICAL EXAMINATION: Vital Signs: On the day of discharge temperature 98.4, heart rate 95, respiratory rate 22, O2 saturation is 91% on room air, blood pressure 150/76. LABORATORY DATA: WBC is 9.7, RBC is 2.67, hemoglobin 7.6, hematocrit 23, MCV 86 , MCH 29, MCHC 34, RDW 18, and platelets 146,000. Sodium 138, potassium 3.5, chloride 110, carbon dioxide 25, BUN 38, creatinine 1.10, GFR 51.5, glucose 151. INR on 10/11/17 was 0.96. Urinalysis was negative for any infectious process. MICROBIOLOGY: Of significant note, she was presenting with some antibiotic- induced diarrhea. She was C. diff negative. Shigella toxin is still pending, but initial stool cultures were also negative. Urine culture was negative and also with her difficulty swallowing, she did have a rapid strep screen which was also negative. DISPOSITION: The patient was discharged in stable condition to home in the care of her with followup nursing services in the house. Significant to note, she no longer requires inpatient home infusion. Her IV antibiotic Aztreonam was discontinued by Dr. Damon from Infectious Disease. Therefore, she is just going to have regular nursing services without home infusion. The patient verbalized her understanding of her followups and her medications at the time of discharge. All questions were answered. The patient was instructed to call her primary care physician for her first followup and any other needs that she has in the immediate should be addressed by her PCP. NANCI MARTINEZ, VIKRAM [id number]/[facility] #: [id number] ABNER
== END 2017-10-19 17:45 | disposition home health service (06) | DRG 291 ==
LOC: ED 12:14 → MEDTELE 17:19 → UNDOADMOB 17:19
PROVIDERS: ADMIT Hospitalist; ATTEND Internal Medicine
PROC: 30233N1 Transfusion of Nonautologous Red Blood Cells into Peripheral Vein, Percutaneous Approach (ICD-10-PCS; principal; 2017-10-07)
DX: I13.0 Hypertensive heart and chronic kidney disease with heart failure and stage 1 through stage 4 chronic kidney disease, or unspecified chronic kidney disease (principal); I50.33 Acute on chronic diastolic (congestive) heart failure; E11.42 Type 2 diabetes mellitus with diabetic polyneuropathy; D69.6 Thrombocytopenia, unspecified; N17.9 Acute kidney failure, unspecified; E11.36 Type 2 diabetes mellitus with diabetic cataract; E11.51 Type 2 diabetes mellitus with diabetic peripheral angiopathy without gangrene; N18.3 Chronic kidney disease, stage 3 (moderate); E11.43 Type 2 diabetes mellitus with diabetic autonomic (poly)neuropathy; M86.662 Other chronic osteomyelitis, left tibia and fibula; T87.44 Infection of amputation stump, left lower extremity; D63.8 Anemia in other chronic diseases classified elsewhere; M41.9 Scoliosis, unspecified; E11.69 Type 2 diabetes mellitus with other specified complication; Z88.1 Allergy status to other antibiotic agents; Z88.5 Allergy status to narcotic agent; Z88.0 Allergy status to penicillin; Z91.030 Bee allergy status; Z95.5 Presence of coronary angioplasty implant and graft; Z95.810 Presence of automatic (implantable) cardiac defibrillator; I25.10 Atherosclerotic heart disease of native coronary artery without angina pectoris; E78.00 Pure hypercholesterolemia, unspecified; I25.2 Old myocardial infarction; J44.9 Chronic obstructive pulmonary disease, unspecified; Z86.711 Personal history of pulmonary embolism; J30.2 Other seasonal allergic rhinitis; G47.30 Sleep apnea, unspecified; Z87.440 Personal history of urinary (tract) infections; M46.90 Unspecified inflammatory spondylopathy, site unspecified; M16.0 Bilateral primary osteoarthritis of hip; M79.7 Fibromyalgia; M81.0 Age-related osteoporosis without current pathological fracture; Z89.512 Acquired absence of left leg below knee; G25.81 Restless legs syndrome; H91.90 Unspecified hearing loss, unspecified ear; G43.909 Migraine, unspecified, not intractable, without status migrainosus; Z86.73 Personal history of transient ischemic attack (TIA), and cerebral infarction without residual deficits; F41.9 Anxiety disorder, unspecified; F32.9 Major depressive disorder, single episode, unspecified; Z98.1 Arthrodesis status; Z90.49 Acquired absence of other specified parts of digestive tract; Z86.14 Personal history of Methicillin resistant Staphylococcus aureus infection; D64.9 Anemia, unspecified; Z95.1 Presence of aortocoronary bypass graft; Z89.432 Acquired absence of left foot; Z87.891 Personal history of nicotine dependence; J02.9 Acute pharyngitis, unspecified; R13.10 Dysphagia, unspecified; E11.65 Type 2 diabetes mellitus with hyperglycemia; I42.9 Cardiomyopathy, unspecified; R31.9 Hematuria, unspecified; S30.814A Abrasion of vagina and vulva, initial encounter; X58.XXXA Exposure to other specified factors, initial encounter; H53.8 Other visual disturbances; B37.2 Candidiasis of skin and nail; K31.84 Gastroparesis; I07.1 Rheumatic tricuspid insufficiency; Y83.8 Other surgical procedures as the cause of abnormal reaction of the patient, or of later complication, without mention of misadventure at the time of the procedure; Y92.9 Unspecified place or not applicable; R20.2 Paresthesia of skin
CPT/HCPCS: 36415; 70450; 70496; 70498; 71020; 74230; 76857; 80048; 80053; 80061; 81003; 81015; 82272; 82570; 82607; 82668; 82728; 83540; 83550; 83615; 83735; 83880; 84300; 85014; 85018; 85025; 85045; 85060; 85610; 86078; 86140; 86850; 86900; 86901; 86922; 87045; 87046; 87086; 87493; 87641; 87651; 87899; 93306; 94640; 94760; 99232; 99233; A9270-GY; J1642; J1940; J2020; J2270; J2405; J2765; J2997; J3475; P9040; Q9967

== ENCOUNTER 2017-10-20 13:44 | Observation (INO) | payer MEDICARE, MEDICAID ==
[2017-10-20] MEDS ORDERED: Ondansetron INJ* 2 MG/ML VIAL IV ONE ×2 (13:58→15:18)
[2017-10-20] MEDS ORDERED: Furosemide IV* 10 MG/ML VIAL (40 MG) IV SLOW PU ONE (14:19)
[2017-10-20 14:33] LABS: Hematocrit 24 % (35-47); Hemoglobin 7.8 g/dl (12.0-16.0); Mean Corpuscular HGB Conc 33 g/dl (31-36); Mean Corpuscular Hemoglobin 28 pg (27-31); Mean Corpuscular Volume 86 fL (80-97); Mean Platelet Volume 9 um3 (7.4-10.4); Platelet Count 261 10^3/ul (150-450); Red Blood Count 2.78 10^6/ul (4.0-5.4); Red Cell Distribution Width 18 % (10.5-15); White Blood Count 14.1 10^3/ul (3.5-10.8)
[2017-10-20 14:52] LABS: EGFR Non-African American 46.9 (>60)
[2017-10-20 15:03] LABS: Monocytes % 3 % (0-13)
[2017-10-20] MEDS ORDERED: Cyclobenzaprine TAB* 10 MG PO PRN (15:30)
[2017-10-20] MEDS ORDERED: Albuterol/Ipratropium NEB.SOL* Albuterol 2.5 MG/Ipratropium 0.5 MG 3 ML INH PRN (15:30)
[2017-10-20] MEDS ORDERED: Nitroglycerin TAB 0.4 MG* 0.4 MG TAB SL PRN (15:36)
[2017-10-20] MEDS ORDERED: Dextrose 50% Syringe 50 ML* 25 GM/50 ML SYRINGE IV PUSH PRN (15:46)
--- NOTE | 2017-10-20 15:55 | ADMNOTE ---
Subjective Date of Service: 10/20/17 Interval History: ADMISSION HISTORY AND PHYSICAL EXAM: Allergies Allergy/AdvReac Type Severity Reaction Status Date / Time Bee Venom Allergy Intermediate Swelling Verified 09/20/17 13:05 Of Face,Lips,& Throat Cephalosporins Allergy Intermediate Shortness Verified 09/20/17 13:05 of Breath Diphenhydramine Allergy Intermediate Difficulty Verified 09/20/17 13:05 Breathing Penicillins Allergy Intermediate Hives Verified 09/20/17 13:05 Sulfa Drugs Allergy Intermediate Hives Verified 09/20/17 13:05 Vancomycin Allergy Mild Hives Verified 09/20/17 13:05 Codeine AdvReac Intermediate Vomiting Verified 09/20/17 13:05 Meropenem AdvReac Mild Diarrhea Verified 09/20/17 13:05 Home Medications Medication Instructions Recorded Confirmed Type Nitroglycerin TAB 0.4 MG* 0.4 mg SL Q5M PRN 11/11/16 10/20/17 History Epinephrine [Epipen 2-Abdi] 0.3 mg IM ONCE PRN 03/04/17 10/20/17 History Glucagon (Rdna) [Glucagon 1 mg IM ONCE PRN 03/04/17 10/20/17 History Emergency Kit] Evolocumab [Repatha Sureclick] 140 mg SC Q14D 04/25/17 10/20/17 History Metoclopramide TAB* [Reglan TAB*] 5 mg PO TID WITH MEALS 07/22/17 10/20/17 History Albuterol/Ipratropium NEB.DION* 1 neb INH TID PRN #0 ml 07/28/17 10/20/17 Rx [Duoneb (Albuterol 2.5 MG/Ipratropium 0.5 MG)] Cyclobenzaprine TAB* [Flexeril 10 10 mg PO TID PRN #0 tab 07/28/17 10/20/17 Rx MG TAB*] Aspirin EC Low Dose* [Ecotrin EC 81 mg PO QAM 09/17/17 10/20/17 History Low Dose 81 MG*] Atorvastatin* [Lipitor 20 MG*] 20 mg PO QPM 09/17/17 10/20/17 History Enalapril TAB* [Vasotec TAB*] 2.5 mg PO QAM 09/17/17 10/20/17 History Gabapentin TAB(NF) [Neurontin 600 1,800 mg PO QPM 09/17/17 10/20/17 History mg TAB(NF)] Magnesium Oxide TAB* [MagOx 400 400 mg PO QAM 09/17/17 10/20/17 History TAB*] Metolazone TAB* [Zaroxolyn TAB*] 5 mg PO MOWEFR 09/17/17 10/20/17 History Mometasone/Formoter 100/5 MDI* 2 puff INH BID 09/17/17 10/20/17 History [Dulera 100/5 MDI*] Tiotropium CAP.INH* [Spiriva 1 puff INH ONCE PRN 09/17/17 10/20/17 History CAP.INH*] Isosorbide Dinitrate TAB* [Isordil 10 mg PO TID 09/22/17 10/20/17 History TAB*] Carvedilol TAB* [Coreg TAB*] 3.125 mg PO QAM 10/20/17 10/20/17 History Carvedilol TAB* [Coreg TAB*] 4.687 mg PO QPM 10/20/17 10/20/17 History Clopidogrel TAB* [Plavix TAB*] 75 mg PO DAILY 10/20/17 10/20/17 History Insulin GLARGINE(*) [Lantus(*)] 30 units SUBCUT BID 10/20/17 10/20/17 History Insulin LISPRO* [HumaLOG*] 6 - 12 units SUBCUT TID WITH MEALS 10/20/17 10/20/17 History Lactobacillus Acidophilu (GG)* 1 cap PO DAILY 10/20/17 10/20/17 History [Culturelle*] Pramipexole TAB* [Mirapex TAB*] 5 mg PO BEDTIME 10/20/17 10/20/17 History Spironolactone TAB* [Aldactone 12.5 mg PO .MOWEFR 10/20/17 10/20/17 History TAB*] Torsemide TAB* [Demadex 20 MG*] 40 mg PO QAM 10/20/17 10/20/17 History HPI: Patient was discharged yesterday. She took her AM meds including torsemide 20 mg x2 = 40 mg and metolazone. She drove herself to Dr. Hess's office for her fup appt and was seen by the PA. She was felt to be in CHF and was sent here by ambulance. She says her weight is much higher than nl for her. + orthopnea. After my visit she told the nurse it felt like an elephant on her chest. Family History: Findings - pt is adopted Social History: Findings - Smoked yrs ago. No alcohol abuse. Lives with her who is her SDM. Past Medical History: Findings - CABG, L BKA 09/26, AICD, coronary stents, CEA, lumbar laminectomy, appy, choly, tonsillectomy, DM, CKD, COPD Review of Systems - Measurements Intake and Output: Intake and Output Last 24 Hours 10/18/17 10/19/17 10/20/17 10/21/17 06:59 06:59 06:59 06:59 Output Total 300 Balance -300 Weight 162 lb Output: Urine 300 - Review of Systems Constitutional Symptoms: Positive: Weight Gain - no accurate measurement Dermatology: Positive: Normal HEENT: Positive: Normal Eyes: Positive: Normal Thyroid: Positive: Normal Pulmonary: Positive: Shortness of Breath Cardiology: Positive: Chest Pain Gastroenterology: Positive: Normal Genitourinay - Female: Positive: Menopause Musculoskeletal: Negative: Joint Pain, Joint Stiffness, Arthritis, Osteoporosis, Low Back Pain , Sciatica, Joint Deformities, Kyphoscoliosis, Other Endocrinology: Positive: Normal Hematologic/Lymphatic: Positive: Anemia Neurology: Positive: Normal Psychiatry: Positive: Normal Allergic/Immunologic: Negative: Hx Anaphylaxis, Hx Angioedema, Hx Environmental, Hx Seasonal, Athsma, Hx HIV, Immunocompromise, Swollen Glands LymphNodes, Other Objective Active Medications: Albuterol/Ipratropium (Duoneb (Albuterol 2.5 Mg/Ipratropium 0.5 Mg)) 1 neb INH TID PRN PRN Reason: SHORTNESS OF BREATH Aspirin (Aspirin Ec Low Dose*) 81 mg PO QAM [facility] Atorvastatin Calcium (Lipitor*) 20 mg PO QPM [facility] Carvedilol (Coreg Tab*) 3.125 mg PO QAM [place] Carvedilol (Coreg Tab*) 4.687 mg PO QPM [place] Clopidogrel Bisulfate (Plavix Tab*) 75 mg PO DAILY [facility] Cyclobenzaprine HCl (Flexeril Tab*) 10 mg PO TID PRN PRN Reason: muscle spasms Dextrose (D50w Syringe 50 Ml*) 12.5 gm IV PUSH .FOR FS < 60 - SS PRN PRN Reason: FS < 60 Enalapril Maleate (Vasotec Tab*) 2.5 mg PO QAM [facility] Enoxaparin Sodium (Lovenox(*)) 40 mg SUBCUT Q24H [place] Gabapentin (Neurontin Cap(*)) 900 mg PO QPM [facility] Insulin Glargine (Lantus(*)) 24 units SUBCUT BID [place] Insulin Human Lispro (Humalog*) 0 units SUBCUT ACHS [facility] PRN Reason: Protocol Metoclopramide HCl (Reglan Tab*) 5 mg PO TID WITH MEALS [facility] Metolazone (Zaroxolyn Tab*) 5 mg PO DAILY [facility] Mometasone Furoate/Formoterol Fumar (Dulera 100/5 Mdi*) 2 puff INH BID [facility] Nitroglycerin (Nitroglycerin Tab 0.4 Mg*) 0.4 mg SL Q5M PRN PRN Reason: PAIN - CHEST Pramipexole Dihydrochloride (Mirapex Tab*) 5 mg PO BEDTIME [facility] Spironolactone (Aldactone Tab*) 25 mg PO DAILY [facility] Tiotropium Goessel (Spiriva Cap.Inh*) cap INH ONCE PRN PRN Reason: SHORTNESS OF BREATH Torsemide (Demadex*) 80 mg PO QAM [facility] Vital Signs - 8 hr 10/20/17 10/20/17 10/20/17 13:53 13:59 14:00 Temperature 98.7 F Pulse Rate 96 97 98 Respiratory 20 16 21 Rate Blood Pressure 160/94 (mmHg) O2 Sat by Pulse 100 100 98 Oximetry 10/20/17 10/20/17 10/20/17 14:23 14:30 14:58 Temperature Pulse Rate 96 95 Respiratory 23 25 24 Rate Blood Pressure 161/97 161/100 157/94 (mmHg) O2 Sat by Pulse 98 98 Oximetry 10/20/17 10/20/17 15:00 15:30 Temperature Pulse Rate 104 95 Respiratory 20 24 Rate Blood Pressure 171/94 169/93 (mmHg) O2 Sat by Pulse 87 98 Oximetry Oxygen Devices in Use Now: Nasal Cannula Appearance: Alert, partly up on ED stretcher. Tachypneic, also looks tired. Eyes: No Scleral Icterus Ears/Nose/Mouth/Throat: Clear Oropharnyx, Mucous Membranes Moist Respiratory: Symmetrical Chest Expansion and Respiratory Effort, Clear to Percussion, - - BL rales worse on R Cardiovascular: NL Sounds; No Murmurs; No JVD, RRR, - - 2+ edema all 4 extremities Extremities: No Clubbing, Cyanosis, - - 2+ edema all 4 extremities Skin: No Rash or Ulcers, No Nodules or Sclerosis Neurological: Alert and Oriented x 3, NL Sensation Result Diagrams: 10/20/17 14:19 10/20/17 14:19 Assess/Plan/Problems-Billing Assessment: - Patient Problems (1) CHF (congestive heart failure) Current Visit: No Status: Resolved Priority: Medium Code(s): I50.9 - HEART FAILURE, UNSPECIFIED SNOMED Code(s): 52326452 Comment: BNP 2725 10/20/17. Pt voided 300 ml after furosemide 100 mg IV, bladder scan was very low after void. Repeat furosemide 100 mg IV 30 minutes after metolazone 5 mg po now. Torsemide increased to 80 mg po daily, spironolactone increased to 25 mg daily, metolazone increased to 5 mg daily. - Echo from 07/07 show ef of 35-40% (2) Diabetes mellitus with chronic kidney disease Current Visit: No Status: Chronic Priority: Medium Code(s): E11.22 - TYPE 2 DIABETES MELLITUS W DIABETIC CHRONIC KIDNEY DISEASE SNOMED Code(s): 93644322 Comment: Lantus decreased to 25 U bid. Lispro by SS. (3) Anemia Current Visit: No Status: Acute Priority: Medium Code(s): D64.9 - ANEMIA, UNSPECIFIED SNOMED Code(s): 738848549 Comment: In range of recent labs.
[2017-10-20] MEDS ORDERED: PROCHLORPERAZINE INJ 5 MG/ML 2 ML VIAL IV PRN (16:48)
[2017-10-20] MEDS ORDERED: PROCHLORPERAZINE INJ 5 MG/ML 2 ML VIAL ONE (16:52)
[2017-10-20] MEDS ORDERED: Gabapentin CAP(*) 300 MG PO SCH (18:00)
[2017-10-20] MEDS ORDERED: Carvedilol TAB* 3.125 MG PO SCH (18:00)
[2017-10-20] MEDS ORDERED: Atorvastatin* 20 MG TAB PO SCH (18:00)
[2017-10-20] MEDS ORDERED: Metolazone TAB* 5 MG PO ONE (18:23)
[2017-10-20] MEDS ORDERED: Acetaminophen TAB* 325 MG PO PRN (18:23)
[2017-10-20] MEDS: Enoxaparin(*) 40 MG/0.4 ML SYR SUBCUT SCH (18:34)
[2017-10-20] MEDS: Metoclopramide TAB* 10 MG PO SCH (18:34)
[2017-10-20] MEDS ORDERED: Furosemide IV* 10 MG/ML 10 ML VIAL (100 MG) IV ONE (19:00)
[2017-10-20] MEDS: Insulin LISPRO* 1 UNITS UNIT SUBCUT SCH ×2 (19:46→23:06)
[2017-10-20] MEDS ORDERED: Pramipexole TAB* 0.5 MG PO SCH (21:00)
[2017-10-20] MEDS: Mometasone/Formoter 100/5 MDI INH SCH (21:05)
[2017-10-20] MEDS: Insulin GLARGINE(*) 1 UNITS UNIT SUBCUT SCH (23:07)
[2017-10-21] MEDS ORDERED: CMCS:Melatonin (NF) 3 MG TAB PO SCH (00:54)
[2017-10-21 06:42] LABS: EGFR Non-African American 39.9 (>60)
--- NOTE | 2017-10-21 08:08 | RAD ---
INDICATION: Shortness of breath. COMPARISON: Comparison is made with a prior study from October 07, 2017. TECHNIQUE: A portable view of the chest was obtained. FINDINGS: The heart appears mildly enlarged. There is a dual-chamber transvenous pacemaker present. There is a central venous catheter present on the right side. The catheter tip projects over the right atrium. There is mild diffuse prominence of the interstitial markings and small bilateral pleural effusions suggestive of congestive heart failure. IMPRESSION: FINDINGS SUGGESTIVE OF CONGESTIVE HEART FAILURE.
[2017-10-21] MEDS: Insulin GLARGINE(*) 1 UNITS UNIT SUBCUT SCH (08:09)
[2017-10-21] MEDS: Metoclopramide TAB* 10 MG PO SCH ×2 (08:10→12:22)
[2017-10-21] MEDS: Insulin LISPRO* 1 UNITS UNIT SUBCUT SCH ×2 (08:12→13:03)
[2017-10-21] MEDS ORDERED: Aspirin EC Low Dose* 81 MG TAB.EC PO SCH (09:00)
[2017-10-21] MEDS ORDERED: Enalapril TAB* 5 MG PO SCH (09:00)
[2017-10-21] MEDS ORDERED: Metolazone TAB* 5 MG PO SCH (09:00)
[2017-10-21] MEDS ORDERED: Spiriva Inhaler DEVICE* 1 EACH DEVICE INH ONE (09:00)
[2017-10-21] MEDS ORDERED: Carvedilol TAB* 3.125 MG PO SCH (09:00)
[2017-10-21] MEDS ORDERED: Spironolactone TAB* 25 MG PO SCH (09:00)
[2017-10-21] MEDS ORDERED: Clopidogrel TAB* 75 MG PO SCH (09:00)
[2017-10-21] MEDS ORDERED: Tiotropium CAP.INH* CAP.INH/18 MCG (USE ORDER SET !) INH SCH (09:00)
[2017-10-21] MEDS ORDERED: Torsemide TAB* 20 MG PO SCH (09:00)
[2017-10-21] MEDS: Mometasone/Formoter 100/5 MDI INH SCH (09:36)
[2017-10-21 11:51] VITALS: BP 136/67
[2017-10-21] MEDS ORDERED: Potassium Chlor TAB* 10 MEQ TAB.ER PO SCH (12:00)
[2017-10-21 13:53] LABS: EGFR Non-African American 40.2 (>60)
[2017-10-21] MEDS: Enoxaparin(*) 40 MG/0.4 ML SYR SUBCUT SCH (15:41)
--- NOTE | 2017-10-23 15:35 | DS ---
CC: Dr. Moises Valdes * DISCHARGE SUMMARY: DATE OF ADMISSION: 10/20/17 DATE OF DISCHARGE: 10/21/17 PRIMARY CARE PROVIDER: Dr. Moises Valdes. MY ATTENDING WHILE IN THE HOSPITAL: Dr. Arleen Pacheco.* (DICTATED BY OSCAR ERWIN) PRIMARY DISCHARGE DIAGNOSIS: Congestive heart failure exacerbation. SECONDARY DISCHARGE DIAGNOSES: 1. Status post coronary artery bypass. 2. Left below-knee amputation. 3. Peripheral vascular disease. 4. Chronic kidney disease stage 3. 5. Cerebrovascular accident. 6. Hypertension. 7. Hyperlipidemia. 8. Subclavian stenosis. 9. Chronic left osteomyelitis of the lower extremity. 10. Restless leg syndrome. 11. Chronic diastolic and systolic heart failure. 12. Chronic obstructive pulmonary disease. 13. Anemia of chronic disease. STUDIES DONE WHILE IN THE HOSPITAL: EKG from 10/20/17 shows paced rhythm, ST segment un-interpretable, left bundle-branch block pattern, normal axis, rate of 94. No other abnormalities. EKG from 10/21/17 shows no significant changes from previous exam, rate 84. Chest x-ray from 10/21/17 shows findings suggestive of congestive heart failure. MEDICATIONS AT DISCHARGE: 1. Nitroglycerin 0.4 mg sublingual q.5 minutes as needed. 2. Glucagon emergency kit 1 mg IM once p.r.n. 3. Epinephrine 0.2 mg IM once p.r.n. 4. Repatha SureClick 140 mg subcutaneous q.14 days. 5. Reglan 5 mg p.o. t.i.d. with meals. 6. DuoNeb 1 nebulizer inhalation t.i.d. as needed. 7. Flexeril 10 mg p.o. t.i.d. as needed. 8. Gabapentin 1800 mg p.o. q.p.m. 9. Tiotropium 1 puff inhalation daily. 10. Dulera 2 puffs inhalation b.i.d. 11. Dulera 105 two puffs inhalation b.i.d. 12. Metolazone 5 mg p.o. daily. 13. Magnesium oxide 400 mg p.o. q.a.m. 14. Enalapril 2.5 mg p.o. q.a.m. 15. Lipitor 20 mg p.o. q.p.m. 16. Aspirin 81 mg p.o. q.a.m. 17. Isordil 10 mg p.o. t.i.d. 18. Culturelle 1 cap p.o. daily. 19. Mirapex 5 mg p.o. at bedtime. 20. Insulin glargine 30 units subcutaneous b.i.d. 21. Spironolactone 25 mg p.o. daily. 22. Clopidogrel 75 mg p.o. daily. 23. Carvedilol 4.687 mg p.o. q.p.m. 24. Carvedilol 3.125 mg p.o. q.a.m. 25. Insulin lispro 6 to 12 units subcutaneous t.i.d. with meals. 26. Torsemide 80 mg p.o. q.a.m. 27. Tylenol 650 mg p.o. q.4 hours as needed. 28. Potassium chloride 10 mEq p.o. daily. Medications discontinued at discharge: 1. Metolazone 5 mg p.o. Wednesday, Wednesday, Wednesday. 2. Spironolactone 12.5 mg p.o. Wednesday, Wednesday, Wednesday. 3. Torsemide 40 mg p.o. q.a.m. HOSPITAL COURSE: This is brief summary of the patient's presentation. For more details please see the admission notes from Dr. Mio Ortiz on . In brief, the patient is a 57-year-old female with repeated admissions to this facility, who was most recently discharged on 10/19/17 after a long complicated hospital stay. For more details, please see the discharge summary from Nida Claudio on 10/19/17. The patient went to the orthopedic office on 10/20/17 to follow up from her previous [id number] amputation with subsequent abscess drainage and she was found to be in CHF exacerbation. The patient returned to the hospital. The patient was admitted. The patient was hypoxic. The patient was given 100 mg IV Lasix twice. The patient's torsemide was increased from 40 mg p.o. daily to 80 mg p.o. daily. The patient' s spironolactone was increased from 12.5 mg p.o. Wednesday, Wednesday, Wednesday to 25 mg p.o. daily. The patient's metolazone was increased from 5 mg p.o. on Wednesday, Wednesday, Wednesday to 5 mg p.o. daily. The patient was able to be weaned off of her oxygen on the morning of 10/21/17. The patient had a chest x- ray, which showed a vascular congestion, but improvement over previous exams. The patient had an elevated troponin to 0.07, which trended down to 0.05, likely due to demand ischemia. The patient felt much better in the afternoon of 10/21/17, the patient's lungs were clear to auscultation, at that time patient felt she was ready to be discharged with close followup with her primary care provider to monitor her kidney function with repeat BMP. The patient's kidney function on admission, creatinine on admission was 1.19, which is decreased from her baseline, likely representing fluid overload that increased to 1.37 and then decreased to 1.36 on the 2 BMPs performed on . The patient was instructed to follow up with primary care provider within 1 week for repeat BMP. PHYSICAL EXAM ON DAY OF DISCHARGE: General: The patient is a 57-year-old female who appears her stated age and sitting comfortably on bed in no acute distress. HEENT: Head normocephalic, atraumatic. Sclerae anicteric. No conjunctival injection. Nasal mucosa moist. Oral mucosa moist. No pharyngeal erythema, exudates or discharge. Neck: Supple, nontender. No lymphadenopathy. No carotid bruit auscultated. Cardiac: Regular rate and rhythm. No clicks, murmurs, gallops, or rubs. Pulses 2+ in bilateral dorsalis pedis and right-sided posterior tibialis and radial areas. The patient has a 2 + left-sided popliteal pulse above her amputation. Respiratory: Clear. Initial exam showed slight crackles in the bilateral lower lobes. On subsequent exams, these were resolved and good air exchange bilaterally. No other adventitious lung sounds. Abdomen: Soft, nontender, nondistended. Bowel sounds present, normoactive in all 4 quadrants. No hepatosplenomegaly. Genitourinary: No suprapubic tenderness or CVA tenderness. Skin: Clean and dry. There is a left-sided [id number] amputation with healing incision with scant amount of blood, held together with Steri-Strips, which the patient states is from bumping it on the day of admission. There are still 4 sutures in the incision, which were unable to be removed on previous admission. Neuro: Cranial nerves II through XII are intact. The patient has left-sided esotropia , which may be new from previous admission. Strength preserved in the upper and lower extremities proximally and in the right lower extremity distally. LABORATORY DATA ON DAY OF DISCHARGE: Sodium 137, potassium 3.2, chloride 102, carbon dioxide 29, anion gap 6, BUN 31, creatinine 1.36, glucose 137, calcium 8.2. Troponin I 0.05. Other laboratory values of note, troponin I 0.07, also on 10/21/17. BNP of 2725 on 10/20/17. Magnesium 2.3 on 10/21/17. Glucose of 258 on 10/20/17. White blood cell count of 14.1 on 10/20/17. Hemoglobin of 7.8 on 10/20/17. DISCHARGE PLAN: The patient will be discharged to home with preexisting visiting nurse services. The patient should continue with her diuretic therapy. The patient should follow up with primary care provider within 1 week with a repeat BMP for her to assess the efficacy of her diuretics and to assess their effect on her chronic kidney disease. The patient has been encouraged to avoid high-salt meals or excessive fluid intake. The patient is to follow up with her clinical information systems director as scheduled. The patient should follow up with Orthopedics as scheduled. The patient should return to the hospital for chest pain, severely increased shortness of breath or other alarming abnormalities. TIME SPENT: Approximately 60 minutes was spent on discharge, 30 of which spent [id number] with the patient obtaining history and physical and discussing the treatment plan. OSCAR ERWIN [id number]/[facility] #: [id number] ABNER
== END 2017-10-21 16:00 | disposition home or self-care (01) ==
LOC: ED 13:44 → MEDTELE 15:12
PROVIDERS: ADMIT Internal Medicine; ATTEND Internal Medicine
DX: I13.0 Hypertensive heart and chronic kidney disease with heart failure and stage 1 through stage 4 chronic kidney disease, or unspecified chronic kidney disease (principal); I50.43 Acute on chronic combined systolic (congestive) and diastolic (congestive) heart failure; N18.3 Chronic kidney disease, stage 3 (moderate); E11.22 Type 2 diabetes mellitus with diabetic chronic kidney disease; I73.9 Peripheral vascular disease, unspecified; Z86.73 Personal history of transient ischemic attack (TIA), and cerebral infarction without residual deficits; E78.5 Hyperlipidemia, unspecified; I70.8 Atherosclerosis of other arteries; M86.68 Other chronic osteomyelitis, other site; G25.81 Restless legs syndrome; J44.9 Chronic obstructive pulmonary disease, unspecified; D63.8 Anemia in other chronic diseases classified elsewhere; Z79.899 Other long term (current) drug therapy; Z79.4 Long term (current) use of insulin; Z88.2 Allergy status to sulfonamides; Z88.1 Allergy status to other antibiotic agents; Z88.8 Allergy status to other drugs, medicaments and biological substances; R94.31 Abnormal electrocardiogram [ECG] [EKG]
CPT/HCPCS: 36415; 71045; 80048; 83735; 83880; 84484; 85025; 87641; 93005; 94640; 94760; 96372; 96374; 96375; 96376; 99284; A9270-GY; G0378; J0780; J1642; J1650; J1940; J2405

== ENCOUNTER 2018-03-05 13:34 | Emergency (ER) | payer MEDICARE, MEDICAID ==
[2018-03-05 14:24] VITALS: BP 137/79
--- NOTE | 2018-03-05 14:31 | UC ---
Complaint Female HPI - HPI Summary HPI Summary: pt has had dysuria, frequency x 5 days, today has R sided back pain, fever. urine is cloudy - History Of Current Complaint Chief Complaint: UCGU Stated Complaint: BURNING URINATION Time Seen by Provider: 03/05/18 14:14 Hx Obtained From: Patient Onset/Duration: Gradual Onset Pain Intensity: 6 Character: Dull, Burning Aggravating Factor(s): Nothing Associated Signs And Symptoms: Positive: Fever, Back Pain. Negative: Nausea - Allergies/Home Medications Allergies/Adverse Reactions: Allergies Allergy/AdvReac Type Severity Reaction Status Date / Time bee venom protein (honey bee) Allergy Anaphylatic Verified 03/05/18 14:15 Shock Cephalosporins Allergy Shortness Verified 03/05/18 14:15 of Breath codeine Allergy GI Upset Verified 03/05/18 14:15 diphenhydramine Allergy Difficulty Verified 03/05/18 14:15 [From Benadryl] Breathing Penicillins Allergy Hives Verified 03/05/18 14:15 Sulfa (Sulfonamide Allergy Hives Verified 03/05/18 14:15 Antibiotics) vancomycin Allergy Hives Verified 03/05/18 14:15 Home Medications: Home Medications Atorvastatin* [Lipitor 80 MG*] 80 mg PO DAILY 03/05/18 [History Confirmed ] Ferrous Gluconate TAB* [Fergon TAB*] 1 tab PO DAILY 03/05/18 [History Confirmed 03/05/18] Insulin GLARGINE(*) [Lantus(*)] 30 units SUBCUT BID 03/05/18 [History Confirmed 03/05/18] Ondansetron HCl [Zofran 4 MG TAB] 4 mg PO DAILY PRN 03/05/18 [History Confirmed 03/05/18] Pregabalin CAP(*) [Lyrica CAP(*)] 50 mg PO TID 03/05/18 [History Confirmed 03/05] Ticagrelor* [Brilinta 90 MG*] 90 mg PO BID 03/05/18 [History Confirmed 03/05/18] PMH/Surg Hx/FS Hx/Imm Hx Previously Healthy: Yes Endocrine History: Diabetes Cardiovascular History: Cardiac Disease, Congestive Heart Failure GI/ History: Renal Disease Other History Of: Anticoagulant Therapy - Surgical History Surgical History: Yes Surgery Procedure, Year, and Place: CARDIAC STENTS(4 PROMUS AND 1 VISIPRO PLACED AT [facility] [place]-1.5T ONLY DUE TO CONDITIONAL STATUS OF MAX SPAT. GRAD. 720), TRIPLE BYPASS, BILATERAL CAROTID ENDARTERECTOMY ,LAP ADDY,HYSTERECTOMY,LEFT GREAT TOE AMPUTATION,APPY, T&A ,STERNAL WIRES ,LUMBAR SPINE FUSION,CSP FUSION , C SECTION,BACK SURGERY-LASER SURGERY. defib,port, left below knee amputation jul 2017 - Family History Known Family History: Positive: Unknown - Pt is adopted and does not know her FHx - Social History Occupation: Disabled Lives: With Family Alcohol Use: None Substance Use Type: None Smoking Status (MU): Light Every Day Tobacco Smoker Type: Cigarettes Amount Used/How Often: patient reports smoking 3 cigarettes per day Length of Time of Smoking/Using Tobacco: 30 years Have You Smoked in the Last Year: Yes When Did the Patient Quit Smoking/Using Tobacco: jun 2017 Household Exposure Type: Cigarettes Cessation Counseling: Patient Advised to Stop - Immunization History Most Recent Influenza Vaccination: 2016 Most Recent Tetanus Shot: 2009 Most Recent Pneumonia Vaccination: 2012 Review of Systems Constitutional: Fever Skin: Negative Respiratory: Negative Cardiovascular: Negative Gastrointestinal: Negative Genitourinary: Dysuria, Frequency, Urgency Neurological: Negative Psychological: Negative All Other Systems Reviewed And Are Negative: Yes Physical Exam Triage Information Reviewed: Yes Appearance: Well-Appearing, No Pain Distress, Well-Nourished Vital Signs: Initial Vital Signs Temp 99.1 F 03/05/18 14:15 Pulse 82 03/05/18 14:15 Resp 18 03/05/18 14:15 BP 137/79 03/05/18 14:15 Pulse Ox 97 03/05/18 14:15 Vital Signs Reviewed: Yes Respiratory Exam: Normal Cardiovascular Exam: Normal Neurological Exam: Normal Neurological: Positive: Alert Psychological Exam: Normal Skin Exam: Normal Complaint Female Dx - Course Course Of Treatment: pt encouraged to go to ER via EMS. Pt adamantly refuses ambulance but does agree with certainty that she will drive herself to ER now. - Differential Dx/Diagnosis Differential Diagnosis/HQI/PQRI: Urinary Tract Infection, Other - pyelonephrosis , renal failure Provider Diagnoses: pyelonephrosis Discharge - Sign-Out/Discharge Documenting (check all that apply): Discharge/Admit/Transfer - Discharge Plan Condition: Stable Disposition: HOME Patient Education Materials: Kidney Infection (ED) Referrals: Matilde León MD [Primary Care Provider] - Additional Instructions: Go directly to ER upon leaving this Urgent care, do not go anywhere before going to ER - Billing Disposition and Condition Condition: STABLE Disposition: HOME
--- NOTE | 2018-03-07 15:06 | UC ---
- Progress Note Progress Note: Urine culture with Group B strep. Was placed on Levaquin by the ED. Good coverage. Has f/u on 03/09 with PCP. No change. Discharge - Sign-Out/Discharge Documenting (check all that apply): Post-Discharge Follow Up - Discharge Plan Condition: Stable Disposition: HOME Patient Education Materials: Kidney Infection (ED) Referrals: Matilde León MD [Primary Care Provider] - Additional Instructions: Go directly to ER upon leaving this Urgent care, do not go anywhere before going to ER - Billing Disposition and Condition Condition: STABLE Disposition: HOME
== END 2018-03-05 15:00 | disposition home or self-care (01) ==
LOC: UCEAST 13:34
DX: N11.1 Chronic obstructive pyelonephritis (principal); E11.9 Type 2 diabetes mellitus without complications; Z79.4 Long term (current) use of insulin; I50.9 Heart failure, unspecified; N28.9 Disorder of kidney and ureter, unspecified; Z79.01 Long term (current) use of anticoagulants; Z95.5 Presence of coronary angioplasty implant and graft; Z95.1 Presence of aortocoronary bypass graft; Z90.49 Acquired absence of other specified parts of digestive tract; Z90.710 Acquired absence of both cervix and uterus; Z89.412 Acquired absence of left great toe; Z89.512 Acquired absence of left leg below knee; Z88.5 Allergy status to narcotic agent; Z88.0 Allergy status to penicillin; Z88.2 Allergy status to sulfonamides; Z88.1 Allergy status to other antibiotic agents; Z91.030 Bee allergy status
CPT/HCPCS: 81003; 87077; 87086; 99211; G0463

== ENCOUNTER 2018-03-05 15:44 | Emergency (ER) | payer MEDICARE, MEDICAID ==
--- NOTE | 2018-03-05 17:33 | RAD ---
CLINICAL HISTORY: Right flank pain COMPARISON: January 14, 2023 TECHNIQUE: Multiple contiguous axial CT scans were obtained of the abdomen and pelvis, without intravenous contrast enhancement. Coronal and sagittal multiplanar reformations are submitted for review. Oral contrast was not administered. FINDINGS: The study is limited by the lack of intravenous contrast. This limits evaluation of the solid organs and vasculature. LUNG BASES: There are small bilateral pleural effusions. There is mild megaly. LIVER: The liver is normal in shape, size, contour, and attenuation. BILE DUCTS: There is no intrahepatic or extrahepatic biliary dilatation. GALLBLADDER: The gallbladder is normal, without pericholecystic inflammatory change. PANCREAS: The pancreas is normal, without mass or ductal dilatation. SPLEEN: Normal in size and appearance. UPPER GI TRACT: Evaluation of the gastrointestinal tract is limited by incomplete gastric distention. The upper GI tract is unremarkable. SMALL BOWEL AND MESENTERY: The small bowel is normal in contour, course, and caliber. There is no obstruction or dilatation. COLON: The colon is normal in contour, course, caliber. There is no pericolonic inflammatory change. ADRENALS: Normal bilaterally. KIDNEYS: The kidneys are normal in shape, size, contour, and axis. There is no hydronephrosis or nephrolithiasis. BLADDER: The bladder is smooth in contour. PELVIC ORGANS: The pelvic organs are not visualized. AORTA: There is calcific atherosclerotic disease of the abdominal aorta and its branches, without aneurysmal dilatation IVC: Unremarkable LYMPH NODES: There is no lymphadenopathy by size criteria. ABDOMINAL WALL: There is no evidence for abdominal wall hernia. BONES AND SOFT TISSUES: The patient is status post spinal fusion. Degenerative changes are noted of the spine. OTHER: None IMPRESSION: NO APPRECIABLE HYDRONEPHROSIS OR NEPHROLITHIASIS. SMALL BILATERAL PLEURAL EFFUSIONS.
[2018-03-05] MEDS ORDERED: Ketorolac INJ* 60 MG/2 ML VIAL IM ONE (17:43)
[2018-03-05 18:03] LABS: ABS Basophils 0.2 10^3/ul (0-0.2); ABS Eosinophils 0.2 10^3/ul (0-0.6); ABS Lymphocytes 1.4 10^3/ul (1.0-4.8); ABS Monocytes 0.6 10^3/ul (0-0.8); ABS Neutrophils 9.7 10^3/ul (1.5-7.7); ABS Nucleated RBC 0 10^3/ul; Hematocrit 24 % (35-47); Hemoglobin 7.5 g/dl (12.0-16.0); Lymphocyte % 11.6 % (25-47); Mean Corpuscular HGB Conc 31 g/dl (31-36); Mean Corpuscular Hemoglobin 28 pg (27-31); Mean Corpuscular Volume 90 fL (80-97); Mean Platelet Volume 9.7 um3 (7.4-10.4); Nucleated Red Blood Cells % 0; Platelet Count 279 10^3/ul (150-450); Red Blood Count 2.64 10^6/ul (4.0-5.4); Red Cell Distribution Width 19 % (10.5-15); White Blood Count 12.1 10^3/ul (3.5-10.8)
[2018-03-05 18:19] LABS: EGFR Non-African American 32.6 (>60)
[2018-03-05 18:47] LABS: Urine Appearance Turbid; Urine Blood 2+ (Negative); Urine Color Yellow; Urine Ketones Negative (Negative); Urine Protein 3+(>=500 mg/dL) (Negative); Urine Red Blood Cell 3+(>10/hpf) (Absent); Urine Specific Gravity 1.017 (1.010-1.030); Urine Urobilinogen Negative (Negative); Urine White Blood Cell 3+(>20/hpf) (Absent)
[2018-03-05] MEDS ORDERED: Levofloxacin TAB* 500 MG PO ONE (18:48)
[2018-03-05] MEDS ORDERED: traMADol TAB* 50 MG PO ONE (19:17)
[2018-03-05 19:41] VITALS: BP 160/81
--- NOTE | 2018-03-06 09:51 | ED ---
Chito Wallace Stephanie, scribed for Cornelio Subramanian on 03/05/18 at 1641 . Abdominal Pain/Female - HPI Summary HPI Summary: The pt is a 57 y/o F presenting to the ED with c/o R sided flank pain that began on 02/28/18. Aggravating factors include urination. The pain is constant and is described as a 7 in severity. The pt denies hx of kidney stones. - History of Current Complaint Chief Complaint: EDFlankPain Stated Complaint: RT SIDE PAIN Time Seen by Provider: 03/05/18 16:20 Hx Obtained From: Patient ?: No Onset/Duration: Gradual Onset, Lasting Weeks - 1, Still Present Timing: Constant Severity Currently: Moderate Pain Intensity: 7 Pain Scale Used: 0-10 Numeric Location: Flank - R Radiates: No Aggravating Factor(s): Other: - urination Alleviating Factor(s): Nothing Associated Signs and Symptoms: Negative: Fever Allergies/Adverse Reactions: Allergies Allergy/AdvReac Type Severity Reaction Status Date / Time bee venom protein (honey bee) Allergy Anaphylatic Verified 03/05/18 15:51 Shock Cephalosporins Allergy Shortness Verified 03/05/18 15:51 of Breath codeine Allergy GI Upset Verified 03/05/18 15:51 diphenhydramine Allergy Difficulty Verified 03/05/18 15:51 [From Benadryl] Breathing Penicillins Allergy Hives Verified 03/05/18 15:51 Sulfa (Sulfonamide Allergy Hives Verified 03/05/18 15:51 Antibiotics) vancomycin Allergy Hives Verified 03/05/18 15:51 Home Medications: Home Medications Ondansetron TAB* [Zofran 4 MG Tab*] 4 mg PO Q6H PRN 03/05/18 [History Confirmed 03/05/18] Spironolactone TAB* [Aldactone TAB 25 MG*] 12.5 mg PO DAILY 03/05/18 [History Confirmed 03/05/18] Torsemide TAB* [Demadex*] 40 mg PO QAM 03/05/18 [History Confirmed 03/05/18] PMH/Surg Hx/FS Hx/Imm Hx Endocrine/Hematology History: Reports: Hx Anticoagulant Therapy, Hx Blood Transfusions, Hx Diabetes, Hx Thyroid Disease - Goiter, Hx Anemia, Other Endocrine/Hematological Disorders - anemia Denies: Hx Systemic Lupus Erythematosus Cardiovascular History: Reports: Hx Angioplasty, Hx Auto Implanted Cardiovert Defib, Hx Cardiac Arrest, Hx Congestive Heart Failure, Hx Coronary Artery Disease, Hx Hypercholesterolemia, Hx Hypertension, Hx Myocardial Infarction, Hx Pacemaker/ICD, Hx Peripheral Vascular Disease, Hx Valvular Heart Disease - "Leaky valve", Other Cardiovascular Problems/Disorders - triple bypass in [place], hyperlipidemia, ICD, carotid endarterectomy Denies: Hx Angina Respiratory History: Reports: Hx Asthma, Hx Chronic Bronchitis, Hx Chronic Obstructive Pulmonary Disease (COPD), Hx Pneumonia, Hx Pulmonary Edema, Hx Pulmonary Embolism, Hx Seasonal Allergies, Hx Sleep Apnea, Other Respiratory Problems/Disorders - respiratory failure, uses home oxygen GI History: Reports: Hx Gall Bladder Disease Denies: Hx Ulcer, Other GI Disorders History: Reports: Hx Chronic Renal Failure, Other Problems/Disorders - recent UTI Denies: Hx Dialysis, Hx Renal Disease Musculoskeletal History: Reports: Hx Arthritis, Hx Back Problems, Hx Fibromyalgia, Hx Scoliosis, Other Musculoskeletal History - left below knee amputation, restless leg syndrome, osteomyelitis Denies: Hx Rheumatoid Arthritis, Hx Osteoporosis Sensory History: Reports: Hx Cataracts - no surgery needed yet, Hx Contacts or Glasses, Hx Vision Problem, Hx Hearing Problem - R ear numbness and decreased hearing r/t TIA per pt Denies: Hx Deafness, Hx Hearing Aid Opthamlomology History: Reports: Hx Cataracts - no surgery needed yet, Hx Contacts or Glasses, Hx Vision Problem Neurological History: Reports: Hx Migraine, Hx Nerve Disease - Diabetic Periperal Neuropathy, Hx Seizures - reports last one 30 yrs ago, Hx Transient Ischemic Attacks (TIA), Other Neuro Impairments/Disorders - peripheral neuropathy Denies: Hx Dementia Psychiatric History: Reports: Hx Anxiety, Hx Depression Denies: Hx Panic Disorder - Cancer History Hx Chemotherapy: No - Surgical History Surgery Procedure, Year, and Place: CARDIAC STENTS(4 PROMUS AND 1 VISIPRO PLACED AT [facility] [place]1.5T ONLY DUE TO CONDITIONAL STATUS OF MAX SPAT. GRAD. 720), TRIPLE BYPASS, BILATERAL CAROTID ENDARTERECTOMY ,LAP ADDY,HYSTERECTOMY,LEFT GREAT TOE AMPUTATION,APPY, T&A ,STERNAL WIRES ,LUMBAR SPINE FUSION,CSP FUSION , C SECTION,BACK SURGERY-LASER SURGERY. defib,port, left below knee amputation jul 2017 Hx Anesthesia Reactions: No - Immunization History Date of Tetanus Vaccine: 2015 Date of Influenza Vaccine: 2015 Infectious Disease History: Yes Infectious Disease History: Reports: Hx of Known/Suspected MRSA Denies: Hx Clostridium Difficile, Hx Hepatitis, Hx Human Immunodeficiency Virus (HIV), Hx Shingles, Hx Tuberculosis, Hx Known/Suspected VRE, Hx Known/ Suspected VRSA, History Other Infectious Disease, Traveled Outside the [place] in Last 30 Days - Family History Known Family History: Positive: Unknown - Pt is adopted and does not know her FHx - Social History Occupation: Disabled Lives: With Family Alcohol Use: None Hx Substance Use: No Substance Use Type: Reports: None Hx Tobacco Use: Yes Smoking Status (MU): Light Every Day Tobacco Smoker Type: Cigarettes Amount Used/How Often: patient reports smoking 3 cigarettes per day Length of Time of Smoking/Using Tobacco: 30 years Have You Smoked in the Last Year: Yes Review of Systems Negative: Fever Positive: flank pain - R Negative: Slurred Speech All Other Systems Reviewed And Are Negative: Yes Physical Exam - Summary Physical Exam Summary: Appearance: Well appearing, no pain distress Skin: warm, dry, reflects adequate perfusion Head/face: normal Eyes: EOMI, JONI ENT: normal Neck: supple, non-tender Respiratory: CTA, breath sounds present Cardiovascular: RRR, pulses symmetrical Abdomen: mild tenderness in R flank, soft Bowel: present Musculoskeletal: strength/ROM intact, orthotics in L leg Neuro: normal, sensory motor intact, A&Ox3 Triage Information Reviewed: Yes Vital Signs On Initial Exam: Initial Vitals Temp Pulse Resp BP Pulse Ox 99.2 F 85 16 166/95 98 03/05/18 15:51 03/05/18 15:51 03/05/18 15:51 03/05/18 15:51 03/05/18 15:51 Vital Signs Reviewed: Yes Diagnostics - Vital Signs Vital Signs Temp Pulse Resp BP Pulse Ox 03/05/18 15:51 99.2 F 85 16 166/95 98 - Laboratory Lab Results: Lab Results 03/05/18 03/05/18 03/05/18 Range/Units 17:54 17:54 18:32 WBC 12.1 H (3.5-10.8) 10^3/ul RBC 2.64 L (4.0-5.4) 10^6/ul Hgb 7.5 L (12.0-16.0) g/dl Hct 24 L (35-47) % MCV 90 (80-97) fL MCH 28 (27-31) pg MCHC 31 (31-36) g/dl RDW 19 H (10.5-15) % Plt Count 279 (150-450) 10^3/ul MPV 9.7 (7.4-10.4) um3 Neut % (Auto) 80.3 (38-83) % Lymph % (Auto) 11.6 L (25-47) % [place] % (Auto) 4.8 (0-7) % Eos % (Auto) 2.0 (0-6) % Baso % (Auto) 1.3 (0-2) % Absolute Neuts (auto) 9.7 H (1.5-7.7) 10^3/ul Absolute Lymphs (auto) 1.4 (1.0-4.8) 10^3/ul Absolute Monos (auto) 0.6 (0-0.8) 10^3/ul Absolute Eos (auto) 0.2 (0-0.6) 10^3/ul Absolute Basos (auto) 0.2 (0-0.2) 10^3/ul Absolute Nucleated RBC 0 10^3/ul Nucleated RBC % 0 Sodium 135 L (139-145) mmol/L Potassium 4.1 (3.5-5.0) mmol/L Chloride 105 (101-111) mmol/L Carbon Dioxide 24 (22-32) mmol/L Anion Gap 6 (2-11) mmol/L BUN 40 H (6-24) mg/dL Creatinine 1.63 H (0.51-0.95) mg/dL Est GFR ( Amer) 42.0 (>60) Est GFR (Non-Af Amer) 32.6 (>60) BUN/Creatinine Ratio 24.5 H (8-20) Glucose 269 H (70-100) mg/dL Calcium 8.4 L (8.6-10.3) mg/dL Total Bilirubin 0.40 (0.2-1.0) mg/dL AST 11 L (13-39) U/L ALT 4 L (7-52) U/L Alkaline Phosphatase 96 (34-104) U/L Total Protein 5.4 L (6.4-8.9) g/dL Albumin 2.5 L (3.2-5.2) g/dL Globulin 2.9 (2-4) g/dL Albumin/Globulin Ratio 0.9 L (1-3) Lipase 20 (11.0-82.0) U/L Urine Color Yellow Urine Appearance Turbid Urine pH 5.0 (5-9) Ur Specific [place] 1.017 (1.010-1.030) Urine Protein 3+(>=500 mg/dl) A (Negative) Urine Ketones Negative (Negative) Urine Blood 2+ A (Negative) Urine Nitrate Negative (Negative) Urine Bilirubin Negative (Negative) Urine Urobilinogen Negative (Negative) Ur Leukocyte Esterase 3+ A (Negative) Urine WBC (Auto) 3+(>20/hpf) A (Absent) Urine RBC (Auto) 3+(>10/hpf) A (Absent) Ur Squamous Epith Cells Present A (Absent) Urine Bacteria Absent (Absent) Hyaline Casts Present A (Absent) Granular Casts Present A (Absent) Urine Glucose 3+(>=500 mg/dl) A (Negative) Result Diagrams: 03/05/18 17:54 03/05/18 17:54 Lab Statement: Any lab studies that have been ordered have been reviewed, and results considered in the medical decision making process. - CT Abdomen/Pelvis CT Interpretation: Positive (See Comments) CT Interpretation Completed By: Radiologist - NO APPRECIABLE HYDRONEPHROSIS OR NEPHROLITHIASIS. SMALL BILATERAL PLEURAL EFFUSIONS. ED physician has reviewed this report. Abdominal Pain Fem Course/Dx - Course Course Of Treatment: The pt is a 57 y/o F presenting to the ED with c/o R sided flank pain that began on 02/28/18. Urine and labs obtained. pt has anemia and refused admission will dc home on abx for uti - Diagnoses Differential Diagnosis: Positive: Diverticulitis, Renal Colic, Urinary Tract Infection Provider Diagnoses: Flank pain, UTI (urinary tract infection), Anemia Discharge - Sign-Out/Discharge Documenting (check all that apply): Discharge/Admit/Transfer - Discharge - Discharge Plan Condition: Stable Disposition: HOME Prescriptions: Levofloxacin TAB* [Levaquin TAB*] 500 mg PO DAILY #7 tab Patient Education Materials: Urinary Tract Infection in Women (ED) Referrals: Matilde León MD [Primary Care Provider] - 3 Days Additional Instructions: Return to the ED for new or worsening symptoms. - Billing Disposition and Condition Condition: STABLE Disposition: HOME The documentation as recorded by the scribChito saunders Stephanie accurately reflects the service I personally performed and the decisions made by , Cornelio Subramanian.
== END 2018-03-05 19:39 | disposition home or self-care (01) ==
LOC: ED 15:44
DX: N39.0 Urinary tract infection, site not specified (principal); R10.9 Unspecified abdominal pain; D64.9 Anemia, unspecified; E11.9 Type 2 diabetes mellitus without complications; Z79.4 Long term (current) use of insulin; E04.9 Nontoxic goiter, unspecified; I25.10 Atherosclerotic heart disease of native coronary artery without angina pectoris; I11.0 Hypertensive heart disease with heart failure; E78.00 Pure hypercholesterolemia, unspecified; I25.2 Old myocardial infarction; E78.5 Hyperlipidemia, unspecified; Z86.74 Personal history of sudden cardiac arrest; Z95.810 Presence of automatic (implantable) cardiac defibrillator; I73.9 Peripheral vascular disease, unspecified; Z95.1 Presence of aortocoronary bypass graft; J44.9 Chronic obstructive pulmonary disease, unspecified; Z86.711 Personal history of pulmonary embolism; Z79.01 Long term (current) use of anticoagulants; E11.22 Type 2 diabetes mellitus with diabetic chronic kidney disease; I13.0 Hypertensive heart and chronic kidney disease with heart failure and stage 1 through stage 4 chronic kidney disease, or unspecified chronic kidney disease; N18.9 Chronic kidney disease, unspecified; Z89.512 Acquired absence of left leg below knee; E11.42 Type 2 diabetes mellitus with diabetic polyneuropathy; G43.909 Migraine, unspecified, not intractable, without status migrainosus; R56.9 Unspecified convulsions; F41.9 Anxiety disorder, unspecified; Z88.5 Allergy status to narcotic agent; Z88.0 Allergy status to penicillin; F32.9 Major depressive disorder, single episode, unspecified; Z88.2 Allergy status to sulfonamides; Z88.1 Allergy status to other antibiotic agents; Z91.030 Bee allergy status; F17.210 Nicotine dependence, cigarettes, uncomplicated
CPT/HCPCS: 36415; 74176; 80053; 81003; 81015; 83690; 85025; 99284; A9270-GY; J1642

== ENCOUNTER 2018-03-14 12:33 | Inpatient (IN) | payer MEDICARE, MEDICAID ==
[2018-03-14] MEDS ORDERED: Albuterol/Ipratropium NEB.SOL* Albuterol 2.5 MG/Ipratropium 0.5 MG 3 ML INH PRN (14:03)
[2018-03-14] MEDS ORDERED: Levofloxacin 750 MG IVPREMIX(* 750 MG/150 ML BAG IVPB ONE (14:03)
[2018-03-14] MEDS ORDERED: Ondansetron ODT TAB* 4 MG PO ONE (14:25)
[2018-03-14 14:44] LABS: ABS Basophils 0.1 10^3/ul (0-0.2); ABS Eosinophils 0.3 10^3/ul (0-0.6); ABS Lymphocytes 0.9 10^3/ul (1.0-4.8); ABS Monocytes 0.6 10^3/ul (0-0.8); ABS Neutrophils 7.2 10^3/ul (1.5-7.7); ABS Nucleated RBC 0 10^3/ul; Eosinophil % 2.9 % (0-6); Hematocrit 28 % (35-47); Hemoglobin 8.9 g/dl (12.0-16.0); Lymphocyte % 9.5 % (25-47); Mean Corpuscular HGB Conc 32 g/dl (31-36); Mean Corpuscular Hemoglobin 29 pg (27-31); Mean Corpuscular Volume 89 fL (80-97); Mean Platelet Volume 8.8 um3 (7.4-10.4); Nucleated Red Blood Cells % 0; Platelet Count 252 10^3/ul (150-450); Red Blood Count 3.11 10^6/ul (4.0-5.4); Red Cell Distribution Width 18 % (10.5-15)
[2018-03-14 15:00] LABS: INR 0.93 (0.77-1.02)
[2018-03-14 15:02] LABS: EGFR Non-African American 35.4 (>60)
--- NOTE | 2018-03-14 15:16 | RAD ---
Indication: Cough, fever and chest pain. Single frontal view of the chest performed at 1500 hours was reviewed. Comparison is made with previous exam dated January 14, 2018. Cardiomegaly is noted. Interstitial edema is noted. Pacemaker leads are in place. No alveolar consolidation is noted. IMPRESSION: CARDIOMEGALY WITH INTERSTITIAL EDEMA CONSISTENT WITH CHF. THIS APPEARS TO BE SLIGHTLY PROGRESSIVE WHEN COMPARED TO PREVIOUS EXAM OF JANUARY 14, 2018.
[2018-03-14] MEDS ORDERED: Piperacillin/Tazobac ADVAN(*) 3.375 GM in NS 0.9% 100 ML* 100 ML IVPB ONE (17:11)
[2018-03-14] MEDS ORDERED: Dextrose 50% Syringe 50 ML* 25 GM/50 ML SYRINGE IV PUSH PRN (17:14)
[2018-03-14] MEDS ORDERED: NS 0.9% 1000 ML* 1,000 ML IV SCH (17:15)
[2018-03-14 17:45] LABS: Urine Appearance Cloudy; Urine Blood 1+ (Negative); Urine Color Yellow; Urine Ketones Negative (Negative); Urine Protein 3+(>=500 mg/dL) (Negative); Urine Specific Gravity 1.012 (1.010-1.030); Urine Urobilinogen Negative (Negative)
[2018-03-14] MEDS ORDERED: Zosyn per Pharmacy* NOTE FOLLOW UP SCH (18:00)
--- NOTE | 2018-03-14 19:05 | HP ---
HISTORY AND PHYSICAL: ADDENDUM: MEDICATION LIST: 1. Humalog via insulin pump. 2. Valsartan/sacubitril one tablet b.i.d. 3. Gabapentin 1800 mg q.p.m. 4. Coreg 3.125 mg, the patient takes half a tablet a day. 5. Lipitor 20 mg daily. 6. Aspirin 81 mg daily. 7. Zofran 4 mg every 6 hours p.r.n. 8. Dulera 2 puffs inhalation b.i.d. and that is Dulera 100/5. 9. Torsemide 40 mg daily. 10. Aldactone 12.5 mg daily. 11. Mirapex 0.5 mg at bedtime. [id number]/[facility] #: [id number] [facility]
[2018-03-14] MEDS: Gabapentin CAP(*) 300 MG PO SCH (19:26)
[2018-03-14] MEDS: Morphine VIAL* 4 MG/ML VIAL (1 ml vial) IV PRN ×2 (19:26→23:55)
[2018-03-14] MEDS: Ondansetron 40 MG VIAL* 2 MG/ML 20 ML VIAL IV PRN ×2 (19:27→23:55)
--- NOTE | 2018-03-14 19:38 | HP ---
ADDENDUM NOW INCLUDED ON THIS REPORT CC: Dr. Valdes; Dr. Hull; Dr. Hess; Dr. Damon * HISTORY AND PHYSICAL: DATE OF ADMISSION: 03/14/18 PRIMARY CARE PROVIDER: Dr. Valdes. CHIEF COMPLAINT: Fever and shortness of breath. HISTORY OF PRESENT ILLNESS: Michelle Galarza is a 57-year-old female with a history of brittle diabetes, who has a history of chronic kidney disease due to diabetes as well as recurrent infections including most recently UTI with E. coli multiresistant that had to be treated with ertapenem. The patient came in complaining of nausea, vomiting, and diarrhea for the past 4 days. She had fevers up to 103 degrees, the last one reported was 2 days ago. She presented hypoxemic and stated that at home she does use oxygen at 2 L on as needed basis. She had been vomiting several times a day. Unable to keep anything p.o. She also had 4 to 5 loose bowel movements a day. She has a history of Clostridium difficile diarrhea diagnosed in January 2018, treated with vancomycin as per Dr. Damon. The patient stated that most recently she was treated for UTI by Dr. Damon with unknown antibiotics, but she thought it could have been Bactrim. She is going to be admitted with the diagnoses of shortness of breath, nausea, and vomiting, initially for observation. I suspect the patient may have had aspiration. PAST MEDICAL HISTORY: 1. Diabetes type 2, insulin dependent, on insulin pump. 2. History of carotid disease, status post coronary artery bypass grafting. 3. History of peripheral vascular disease, status post bilateral carotid stenting. 4. History of chronic kidney disease, stage 3. 5. Hypertension. 6. Hyperlipidemia. 7. History of left subclavian stenosis, status post stenting. 8. History of left leg osteomyelitis, status post left BKA in 2017. 9. Restless legs syndrome. 10. Appendectomy. 11. Cholecystectomy. 12. Tonsillectomy. 13. History of cervical and lumbar laminectomy. 14. History of C. diff associated diarrhea in January 2018. 15. History of peripheral neuropathy. ALLERGIES: Include CEPHALOSPORIN, VANCOMYCIN, and SULFA, all those caused anaphylaxis. FAMILY HISTORY: The patient is adopted. SOCIAL HISTORY: The patient lives with her . She denies current tobacco , alcohol, or drug use. Her is her surrogate. REVIEW OF SYSTEMS: Please see history of present illness. In addition to nausea, vomiting as well as diarrhea, the patient has complaints of intermittent abdominal cramping when she has a bowel movement. Also, low-grade fevers as mentioned above. The patient also complains of increased shortness of breath that started a couple of days into her nausea and vomiting. All the remaining 12 systems were reviewed with the patient and were otherwise negative. PHYSICAL EXAMINATION GENERAL: The patient is a pleasant 57-year-old female who is in no acute distress. Alert, awake, and oriented x3. VITAL SIGNS: Blood pressure of 153/88, heart rate of 77 and regular, respiratory rate 25, oxygen saturation 100% on 3 L of oxygen via nasal cannula, temperature of 98.6. HEENT: Head: Atraumatic, normocephalic. Eyes: Pupils are equal, reactive to light and accommodation. Oropharynx clear. Mucosa moist. NECK: Supple. No JVD. No bruits bilaterally. RESPIRATORY: Coarse breath sounds in bilateral bases with rhonchi in the left lower lung. CARDIOVASCULAR: Regular rate and rhythm. No murmur. ABDOMEN: Soft, nontender. Bowel sounds are present in all 4 quadrants. EXTREMITIES: There is no edema. Pulses are +2 bilaterally. There is no clubbing or cyanosis. The patient is status post left-sided BKA with stump with no evidence of infection, well healed. NEURO EVALUATION: Speech is clear. Cranial nerves II through XII grossly intact. Motor strength is 5/5 bilaterally. SKIN: On evaluation of the skin, no ecchymotic areas or rashes noted. LABORATORY DATA/DIAGNOSTIC STUDIES: Rapid flu test was performed and was negative. White blood cell count was 9.0, hemoglobin was 8.9, hematocrit of 28, MCV of 89 , and platelets of 252. ESR was 107. Sodium of 139, potassium 4.0, chloride 104, carbon dioxide 29, BUN 36, creatinine 1.52, which is the patient's baseline. Liver function tests were unremarkable. Total CPK was mildly elevated at 325. C-reactive protein is 35. Brain natriuretic peptide was 1177. The patient's portable chest x-ray, impression, "cardiomegaly with interstitial edema consistent with CHF. This appears to be slightly progressive when compared to previous exam on 01/14/18." The patient's EKG showed atrial sensed ventricular paced rhythm with 186 beats per minute. ASSESSMENT AND PLAN: 1. Nausea, vomiting, and diarrhea in a patient with a history of Clostridium difficile as well as UTI. At this point, the patient is going to be placed on broad-spectrum antibiotics including Zofran for what appears to be clinically aspiration pneumonia in the left lung base. I suspect the chest x-ray did not show it since the patient is mildly dehydrated. Nevertheless, urine cultures are also going to be obtained to rule out other pathology. Due to the patient' s history of Clostridium difficile diarrhea and current loose bowel movements up to 5 times a day, I will obtain C. diff and stool testing. I will also place the patient empirically on vancomycin, especially when the patient is currently being treated with IV antibiotics. 2. In regard to the patient's diabetes, the patient is currently on Humalog insulin pump. At this point, I will ask the patient to continue the pump and continue also with lispro sliding scale in addition to the pump. 3. Chronic kidney disease, stage 3. The patient's creatinine is at baseline currently. 4. The patient's shortness of breath is likely due to aspiration pneumonia. Although the patient's portable chest x-ray shows the possibility of vascular congestion and the patient's brain natriuretic peptide is elevated, I suspect she actually is intravascularly depleted and we will place her on gentle intravenous hydration. 5. For DVT prophylaxis, the patient is going to be placed on heparin subcutaneously. 6. The patient's code status is full. Her surrogate is her . TIME SPENT: Approximately 72 minutes were spent on the admission of this patient, more than half the time was spent [id number] with the patient during the interview and physical exam. ADDENDUM: MEDICATION LIST: 1. Humalog via insulin pump. 2. Valsartan/sacubitril one tablet b.i.d. 3. Gabapentin 1800 mg q.p.m. 4. Coreg 3.125 mg, the patient takes half a tablet a day. 5. Lipitor 20 mg daily. 6. Aspirin 81 mg daily. 7. Zofran 4 mg every 6 hours p.r.n. 8. Dulera 2 puffs inhalation b.i.d. and that is Dulera 100/5. 9. Torsemide 40 mg daily. 10. Aldactone 12.5 mg daily. 11. Mirapex 0.5 mg at bedtime. [id number] #: [id number]/[id number] #: [id number] [facility] CENTERJaylen
[2018-03-14] MEDS: Albuterol/Ipratropium NEB.SOL* Albuterol 2.5 MG/Ipratropium 0.5 MG 3 ML INH SCH ×2 (20:11→23:59)
[2018-03-14] MEDS: Mometasone/Formoter 100/5 MDI INH SCH (20:12)
[2018-03-14] MEDS ORDERED: Vancomycin CAP* 125 MG CAP PO SCH (21:00)
[2018-03-14] MEDS: Insulin LISPRO* 1 UNITS UNIT SUBCUT SCH (21:00)
[2018-03-14] MEDS: Acetaminophen TAB* 325 MG PO PRN (21:11)
[2018-03-14] MEDS: Pramipexole TAB* 0.5 MG PO SCH (21:12)
[2018-03-14] MEDS: Heparin VIAL(*) 5000 UNITS/ML VIAL (FIVE THOUSAND) SUBCUT SCH (21:12)
--- NOTE | 2018-03-15 00:34 | ED ---
Lilliana Wallace Elizabeth, scribed for Farrah Mckoy MD on 03/14/18 at 1402 . Shortness of Breath - HPI Summary HPI Summary: This patient is a 57 year old F presenting to [facility] upon referral from Dr. León with a chief complaint of a shortness of breath since 3 days ago. The patient rates the pain 7/10 in severity. Symptoms aggravated by nothing. Symptoms alleviated by nothing. Patient reports productive cough, fever as high as 103 degrees, sore throat, N/V, chest pain, rhinorrhea, and decreased appetite. The patient notes it feels like an elephant is sitting on my chest. The patient notes that she took Tylenol at 11:30 this morning. The patient has hx of kidney failure and has a port but has not yet begun dialysis tx. Patient has hx of diabetes and AR and has an implanted defibrillator. The patient has had a [id number] amputation of the left leg. The patient received a triple bypass surgery at [facility] in 2009. In room, patients HR is 93 bpm and BP is 157/85. - History of Current Complaint Chief Complaint: EDShortnessOfBreath Time Seen by Provider: 03/14/18 12:57 Hx Obtained From: Patient Onset/Duration: Gradual Onset, Lasting Days - 3 days, Still Present Timing: Constant Current Severity: Moderate Dyspnea At: Rest Aggrevating Factors: Nothing Alleviating Factors: Nothing Associated Signs & Symptoms: Cough (Productive), Chest Pain w/Cough, Fever - Allergy/Home Medications Allergies/Adverse Reactions: Allergies Allergy/AdvReac Type Severity Reaction Status Date / Time bee venom protein (honey bee) Allergy Anaphylatic Verified 03/05/18 15:51 Shock Cephalosporins Allergy Shortness Verified 03/05/18 15:51 of Breath codeine Allergy GI Upset Verified 03/05/18 15:51 diphenhydramine Allergy Difficulty Verified 03/05/18 15:51 [From Benadryl] Breathing Penicillins Allergy Hives Verified 03/05/18 15:51 Sulfa (Sulfonamide Allergy Hives Verified 03/05/18 15:51 Antibiotics) vancomycin Allergy Hives Verified 03/05/18 15:51 Home Medications: Home Medications Sacubitril/Valsartan (NF) [Entresto (NF)] 1 tab PO BID 03/14/18 [ History Confirmed 03/14/18] PMH/Surg Hx/FS Hx/Imm Hx Endocrine/Hematology History: Reports: Hx Blood Transfusions, Hx Diabetes, Hx Thyroid Disease - Goiter, Hx Anemia Denies: Hx Systemic Lupus Erythematosus Cardiovascular History: Reports: Hx Angioplasty, Hx Auto Implanted Cardiovert Defib, Hx Cardiac Arrest, Hx Congestive Heart Failure, Hx Coronary Artery Disease, Hx Hypercholesterolemia, Hx Hypertension, Hx Myocardial Infarction, Hx Pacemaker/ICD, Hx Peripheral Vascular Disease, Hx Valvular Heart Disease, Other Cardiovascular Problems/Disorders - triple bypass in [place], hyperlipidemia, ICD, carotid endarterectomy Denies: Hx Angina Respiratory History: Reports: Hx Asthma, Hx Chronic Bronchitis, Hx Chronic Obstructive Pulmonary Disease (COPD), Hx Pneumonia, Hx Pulmonary Edema, Hx Pulmonary Embolism, Hx Seasonal Allergies, Hx Sleep Apnea, Other Respiratory Problems/Disorders - respiratory failure, uses home oxygen GI History: Reports: Hx Gall Bladder Disease Denies: Hx Ulcer, Other GI Disorders History: Reports: Hx Chronic Renal Failure, Other Problems/Disorders - recent UTI Denies: Hx Dialysis, Hx Renal Disease Musculoskeletal History: Reports: Hx Arthritis, Hx Back Problems, Hx Fibromyalgia, Hx Scoliosis, Other Musculoskeletal History - left below knee amputation, restless leg syndrome, osteomyelitis Denies: Hx Rheumatoid Arthritis, Hx Osteoporosis Sensory History: Reports: Hx Cataracts - no surgery needed yet, Hx Contacts or Glasses, Hx Vision Problem, Hx Hearing Problem - R ear numbness and decreased hearing r/t TIA per pt Denies: Hx Deafness, Hx Hearing Aid Opthamlomology History: Reports: Hx Cataracts - no surgery needed yet, Hx Contacts or Glasses, Hx Vision Problem Neurological History: Reports: Hx Migraine, Hx Nerve Disease - Diabetic Peripheral Neuropathy, Hx Seizures - reports last one 30 yrs ago, Hx Transient Ischemic Attacks (TIA) Denies: Hx Dementia Psychiatric History: Reports: Hx Anxiety, Hx Depression Denies: Hx Panic Disorder - Cancer History Hx Chemotherapy: No - Surgical History Surgery Procedure, Year, and Place: CARDIAC STENTS(4 PROMUS AND 1 VISIPRO PLACED AT [facility] [place]-1.5T ONLY DUE TO CONDITIONAL STATUS OF MAX SPAT. GRAD. 720), TRIPLE BYPASS, BILATERAL CAROTID ENDARTERECTOMY ,LAP ADDY,HYSTERECTOMY,LEFT GREAT TOE AMPUTATION,APPY, T&A ,STERNAL WIRES ,LUMBAR SPINE FUSION,CSP FUSION , C SECTION,BACK SURGERY-LASER SURGERY. defib,port, left below knee amputation jul 2017 Hx Anesthesia Reactions: No - Immunization History Date of Tetanus Vaccine: 2015 Date of Influenza Vaccine: 2015 Infectious Disease History: Yes Infectious Disease History: Reports: Hx Clostridium Difficile, Hx of Known/ Suspected MRSA Denies: Hx Hepatitis, Hx Human Immunodeficiency Virus (HIV), Hx Shingles, Hx Tuberculosis, Hx Known/Suspected VRE, Hx Known/Suspected VRSA, History Other Infectious Disease, Traveled Outside the [place] in Last 30 Days - Family History Known Family History: Positive: Unknown - Pt is adopted and does not know her FHx - Social History Alcohol Use: None Hx Substance Use: No Substance Use Type: Reports: None Hx Tobacco Use: Yes Smoking Status (MU): Light Every Day Tobacco Smoker Type: Cigarettes Amount Used/How Often: patient reports smoking 3 cigarettes per day Length of Time of Smoking/Using Tobacco: 30 years Have You Smoked in the Last Year: Yes Review of Systems Positive: Fever Positive: Chest Pain Positive: Shortness Of Breath, Cough Positive: Vomiting, Nausea Skin: Negative Neurological: Negative Psychological: Normal All Other Systems Reviewed And Are Negative: Yes Physical Exam - Summary Physical Exam Summary: Appearance: Ill-appearing, minimal pain distress, well-nourished Skin: Warm, color reflects adequate perfusion, dry Head: Normal Head/Face inspection, atraumatic Eyes: Conjunctiva clear ENT: Normal inspection Neck: Supple, no nodes, no JVD Respiratory: Mild respiratory distress, expiratory wheezes throughout Cardio: RRR, No murmur, pulses normal, brisk capillary refill, Defibrillator left upper anterior chest, port right upper anterior chest Abdomen: Soft, nontender Bowel sounds: Present Musculoskeletal: Strength Intact/ROM intact, no calf tenderness, no edema. Left leg BKA Psychological: Normal Neuro: Alert, muscle tone normal, no focal deficit Triage Information Reviewed: Yes Vital Signs On Initial Exam: Initial Vitals Temp Pulse Resp BP Pulse Ox 98.6 F 83 19 152/79 96 03/14/18 12:43 03/14/18 12:43 03/14/18 12:43 03/14/18 12:43 03/14/18 12:43 Vital Signs Reviewed: Yes Diagnostics - Vital Signs Vital Signs Temp Pulse Resp BP Pulse Ox 03/14/18 13:15 86 24 168/91 93 03/14/18 12:43 98.6 F 83 19 152/79 96 - Laboratory Result Diagrams: 03/14/18 14:36 03/14/18 14:37 Lab Statement: Any lab studies that have been ordered have been reviewed, and results considered in the medical decision making process. - Radiology CXR Xray Interpretation: Positive (See Comments) - IMPRESSION: CARDIOMEGALY WITH INTERSTITIAL EDEMA CONSISTENT WITH CHF. THIS APPEARS TO BE SLIGHTLY PROGRESSIVE WHEN COMPARED TO PREVIOUS EXAM OF JANUARY 14, 2018. Dr. Mckoy has reviewed this report. Radiology Interpretation Completed By: Radiologist - EKG 12:56 Cardiac Rate: NL - at 86 BPM EKG Rhythm: Sinus Rhythm EKG Interpretation: 100% paced rhythm at 86 bpm Re-Evaluation - Re-Evaluation First Eval Re-Evaluation Time: 16:30 Change: Improved Comment: improved after duxiaob, advised of results and need for admission Course/Dx - Course Course Of Treatment: Sepsis protocol initiated, based on pt's hx and likelihood of serious infection with organ dysfunction but full 30cc/kg not given with pt' s hx of creat clearance 22, and hx CHF. Patient with hx of diabetes type I on pump, AR, and CKD stage III reports shortness of breath. An EKG reveals 100% paced rhythm at 86 bpm. CXR reveals, per radiologist, cardiomegaly with interstitial edema consistent with CHF. This appears to be slightly progressive when compared to previous exam of 01/14/2018. ED physician has reviewed this radiology report. Lactate normal, CBC normal, BNP elevated, troponin normal. creat 1.5, Hb 8.9. glucose 79 Multiple Allergies noted. In the ED course the patient was given Levofloxacin, Zofran, and Albuterol. We discussed patient care with Dr. Pacheco and she agreed to admit the patient to [facility]. The patient is diagnosed with CHF and fever. The patient is agreeable with this plan. - Diagnoses Differential Diagnosis/HQI/PQRI: Positive: CHF, AR, Pneumonia, Pulmonary Edema, Unstable Angina Provider Diagnoses: CHF (congestive heart failure), Fever, Diabetes mellitus with chronic kidney disease, CKD (chronic kidney disease) stage 3, GFR 30-59 ml/min, Anemia - Physician Notifications Discussed Care of Patient With: Arleen Pacheco Time Discussed With Above Provider: 16:30 Instructed by Provider To: Admit As Inpatient Discharge - Sign-Out/Discharge Documenting (check all that apply): Discharge/Admit/Transfer - Discharge Plan Condition: Stable Disposition: ADMITTED TO [facility] - Billing Disposition and Condition Condition: STABLE Disposition: Admitted to [facility] The documentation as recorded by the Lilliana sherwood Elizabeth accurately reflects the service I personally performed and the decisions made by Ean florian Barbara J, MD.
[2018-03-15] MEDS: Albuterol/Ipratropium NEB.SOL* Albuterol 2.5 MG/Ipratropium 0.5 MG 3 ML INH SCH ×3 (01:50→09:17)
[2018-03-15] MEDS: Ondansetron 40 MG VIAL* 2 MG/ML 20 ML VIAL IV PRN (05:45)
[2018-03-15] MEDS: Heparin VIAL(*) 5000 UNITS/ML VIAL (FIVE THOUSAND) SUBCUT SCH ×3 (05:49→21:54)
[2018-03-15 06:03] LABS: ABS Basophils 0 10^3/ul (0-0.2); ABS Eosinophils 0.1 10^3/ul (0-0.6); ABS Lymphocytes 0.8 10^3/ul (1.0-4.8); ABS Monocytes 0.4 10^3/ul (0-0.8); ABS Neutrophils 3.2 10^3/ul (1.5-7.7); ABS Nucleated RBC 0 10^3/ul; Eosinophil % 2.8 % (0-6); Hematocrit 24 % (35-47); Hemoglobin 7.7 g/dl (12.0-16.0); Lymphocyte % 17.1 % (25-47); Mean Corpuscular HGB Conc 32 g/dl (31-36); Mean Corpuscular Hemoglobin 28 pg (27-31); Mean Corpuscular Volume 89 fL (80-97); Mean Platelet Volume 9.1 um3 (7.4-10.4); Nucleated Red Blood Cells % 0; Platelet Count 197 10^3/ul (150-450); Red Blood Count 2.71 10^6/ul (4.0-5.4); Red Cell Distribution Width 19 % (10.5-15); White Blood Count 4.6 10^3/ul (3.5-10.8)
[2018-03-15 06:25] LABS: EGFR Non-African American 26.2 (>60)
[2018-03-15] MEDS ORDERED: Ibuprofen TAB* 400 MG PO ONE (08:07)
--- NOTE | 2018-03-15 08:13 | PN ---
Subjective Date of Service: 03/15/18 Interval History: pt has some nausea still, but will try to eat breakfast. Has had no BM since admission, but still has mild abdominal "discomfort" C/o migraine headache Objective Active Medications: Acetaminophen (Tylenol Tab*) 650 mg PO Q4H PRN PRN Reason: FEVER/PAIN Last Admin: 03/14/18 21:11 Dose: 650 mg Albuterol/Ipratropium (Duoneb (Albuterol 2.5 Mg/Ipratropium 0.5 Mg)) 1 neb INH Q20M PRN PRN Reason: SHORTNESS OF BREATH Last Admin: 03/14/18 16:46 Dose: 1 neb Albuterol/Ipratropium (Duoneb (Albuterol 2.5 Mg/Ipratropium 0.5 Mg)) 1 neb INH Q4H [facility] Last Admin: 03/15/18 06:04 Dose: Not Given Aspirin (Aspirin Ec Tab*) 81 mg PO QAM [facility] Atorvastatin Calcium (Lipitor*) 20 mg PO DAILY [facility] Carvedilol (Coreg Tab*) 1.5625 mg PO QAM [facility] Dextrose (D50w Syringe 50 Ml*) 12.5 gm IV PUSH .FOR FS < 60 - SS PRN PRN Reason: FS < 60 Gabapentin (Neurontin Cap(*)) 1,800 mg PO QPM [facility] Last Admin: 03/14/18 19:26 Dose: 1,800 mg Heparin Sodium (Porcine) (Heparin Vial(*)) 5,000 units SUBCUT Q8HR [facility] Last Admin: 03/15/18 05:49 Dose: 5,000 units Heparin Sodium (Porcine) (Heparin Flush Port (Ivad)) 5 ml FLUSH DAILY [facility] PRN Reason: Protocol Last Admin: 03/15/18 05:49 Dose: 5 ml Levofloxacin/Dextrose (Levaquin 250 Mg Ivpremx(*)) 250 mg in 50 mls @ 50 mls/ hr IVPB Q24H [place] Metronidazole/Sodium Chloride (Flagyl 500 Mg Ivpb*) 500 mg in 100 mls @ 100 mls /hr IVPB Q8H [facility] Ibuprofen (Motrin Tab*) 400 mg PO ONCE ONE Stop: 03/15/18 08:08 Mometasone Furoate/Formoterol Fumar (Dulera 100/5 Mdi*) 2 puff INH BID [facility] Last Admin: 03/14/18 20:12 Dose: 2 puff Morphine Sulfate (Morphine Vial*) 1 mg IV Q4H PRN PRN Reason: PAIN Last Admin: 03/14/18 23:55 Dose: 1 mg Ondansetron HCl (Zofran 40 Mg Vial*) 4 mg IV Q4H PRN PRN Reason: NAUSEA/VOMITING Last Admin: 03/15/18 05:45 Dose: 4 mg Pramipexole Dihydrochloride (Mirapex Tab*) 0.5 mg PO BEDTIME [place] Last Admin: 03/14/18 21:12 Dose: 0.5 mg Spironolactone (Aldactone Tab*) 12.5 mg PO DAILY [place] Torsemide (Demadex*) 40 mg PO QAM [facility] Vital Signs - 8 hr 03/15/18 03/15/18 02:24 03:52 Temperature 97.9 F Pulse Rate 71 Respiratory 16 16 Rate Blood Pressure 118/75 (mmHg) O2 Sat by Pulse 98 Oximetry Oxygen Devices in Use Now: Nasal Cannula Appearance: 57 yo f in nAD, aAOx3 Eyes: No Scleral Icterus, PERRLA Ears/Nose/Mouth/Throat: NL Teeth, Lips, Gums, Mucous Membranes Moist Neck: NL Appearance and Movements; NL JVP, Trachea Midline Respiratory: Symmetrical Chest Expansion and Respiratory Effort, - - rhonchi in LLL Cardiovascular: NL Sounds; No Murmurs; No JVD, RRR Abdominal: - - mild diffuse tenderness, no rebound, no guarding, BS+ Lymphatic: No Cervical Adenopathy Extremities: No Edema, No Clubbing, Cyanosis, - - s/p L BKA Skin: No Rash or Ulcers, No Nodules or Sclerosis Neurological: Alert and Oriented x 3, NL Muscle Strength and Tone Result Diagrams: 03/15/18 05:41 03/15/18 05:41 Assess/Plan/Problems-Billing Assessment: Ms. Galarza is a 57 yo female with PMH significant for DM, PVD, CKD, CVA, HTN, HLD, RLS, left subclavian stenosis (s/p stenting), CHF, COPD, anemia and neuropathy who presented to the emergency room with complaints of n/v, SOB and diarrhea - Patient Problems (1) Aspiration pneumonia Comment: cont Levaquin, adding Flagyl although no infiltrate on CXR pt clinically has aspiration PNA (2) Clostridium difficile diarrhea Comment: dx in 01/26, although presented with 5 BMs/Day mnow no BM since admission will d/c C.Diff PCR (3) Gastroparesis diabeticorum Comment: Pt has h/o gastroparesis, suspect n/v may be due to it Continue Reglan IV for N/V (4) Uncontrolled type II diabetes mellitus Comment: Had been on insulin pump, no fairly controlled. cont insulin pump-pt can adjust and bolus with meals (5) Anemia Comment: -drop in Hb suspect due to hemodilution, no c/o melena or BRBPR, but will check stool guaiac - Chronic, appears to be near her baseline, due to CKD - Will continue to monitor (6) CKD (chronic kidney disease) stage 3, GFR 30-59 ml/min Comment: - Creatinine near baseline but rising - Continue to monitor (7) Abnormal urinalysis Comment: multi drug resistnat E coli pyelo 1 month ago. Awaiting cx, ESR markedly elevated. will ask ID for assistance check renal US. (8) Systolic CHF Comment: - No exacerbation at this time - 09/26 Echo, EF 35-40% - Continue daily weights, strict I+O's, spironolactone, and torsemide (9) DVT prophylaxis Comment: HSQ Status and Disposition: OBV will be changed to inpatient
[2018-03-15] MEDS: Insulin LISPRO* 1 UNITS UNIT SUBCUT SCH (08:42)
[2018-03-15] MEDS: Aspirin EC TAB* 81 MG TAB.EC PO SCH (08:52)
[2018-03-15] MEDS: Carvedilol TAB* 3.125 MG PO SCH (08:52)
[2018-03-15] MEDS: Spironolactone TAB* 25 MG PO SCH (08:52)
[2018-03-15] MEDS: Atorvastatin* 20 MG TAB PO SCH (08:52)
[2018-03-15] MEDS: Metoclopramide IV* 5 MG/ML 2 ML VIAL IV SCH ×3 (08:52→16:31)
[2018-03-15] MEDS: Torsemide TAB* 20 MG PO SCH (08:53)
--- NOTE | 2018-03-15 08:54 | RAD ---
Indication: Assess for hydronephrosis. Kidney infection. Comparison: March 05, 2018 CT Technique: Renal ultrasound. Report: 10.7 x 4.9 x 5.5 cm RIGHT kidney. 11.7 x 5.3 x 4.4 cm LEFT kidney. Normal bilateral renal cortical echogenicity. No conspicuous stones or hydronephrosis. Negative for focal renal lesions. Grossly symmetric renal vascularity. Negative for perinephric fluid. IMPRESSION: Negative for hydronephrosis. Normal renal ultrasound.
[2018-03-15] MEDS ORDERED: metroNIDAZOLE IV 500 MG/100ML* 500 MG/100 ML BAG IVPB SCH (09:00)
[2018-03-15] MEDS: Mometasone/Formoter 100/5 MDI INH SCH ×2 (09:16→21:34)
[2018-03-15] MEDS ORDERED: Morphine VIAL* 4 MG/ML VIAL (1 ml vial) IV PRN (11:15)
[2018-03-15] MEDS: Morphine VIAL* 4 MG/ML VIAL (1 ml vial) IV PRN ×2 (12:22→23:38)
[2018-03-15] MEDS: NS 0.9% 1000 ML* 1,000 ML IV SCH ×2 (12:23→12:24)
[2018-03-15] MEDS ORDERED: Albuterol/Ipratropium NEB.SOL* Albuterol 2.5 MG/Ipratropium 0.5 MG 3 ML INH PRN (13:30)
[2018-03-15] MEDS ORDERED: Azithromycin TAB* 250 MG PO SCH (15:00)
--- NOTE | 2018-03-15 15:17 | RAD ---
INDICATION: Cough, fever. Shortness of breath. History of congestive heart failure and chronic obstructive pulmonary disease. Prior coronary artery bypass. Diabetic. COMPARISON: March 14, 2018 chest radiograph and March 05, 2018 CT abdomen. TECHNIQUE: Dual energy PA and routine lateral views of the chest were obtained. REPORT: Chronic mild prominence of interstitial markings. Patchy consolidation at the LEFT lung base appears new. Grossly clear pleural spaces. Negative for pneumothorax. Tip of RIGHT chest port at level of superior vena cava RIGHT atrial junction. Median sternotomy wires appear unchanged. RIGHT atrial and RIGHT ventricular level pacemaker leads appear unchanged. Mild cardiomegaly. Unremarkable central pulmonary vasculature and mediastinal contours. IMPRESSION: Patchy consolidation at the LEFT lung base is suspicious for pneumonia given the clinical context.
--- NOTE | 2018-03-15 15:35 | CONS ---
CONSULTATION REPORT: DATE OF CONSULT: 03/15/18 REQUESTING PHYSICIAN: Dr. Pacheco. CONSULTING SERVICE: Infectious Disease. REASON FOR CONSULT: Fever, cough. IMPRESSION: 1. Five days of fever, productive cough, mild left-sided chest pain, elevated C - reactive protein. Chest x-ray shows bilateral interstitial infiltrates on AP film. Fevers developed while she was on Levaquin for urinary tract infection. Most likely community-acquired pneumonia, aspiration is a consideration. No urinary symptoms. No abdominal symptoms. She had had diarrhea and vomiting, but that have since resolved. 2. Diabetes with neuropathy, insulin dependent. 3. Chronic kidney disease with acute kidney injury. 4. Left below-knee amputation. 5. History of Clostridium difficile associated diarrhea. RECOMMENDATIONS: We will stop the Levaquin and start cefepime 1 g IV daily and azithro 250 mg by mouth daily. Check a PA and lateral film now that she has had a little bit of hydration as well. Await the blood culture. HISTORY OF PRESENT ILLNESS: This is a 57-year-old diabetic admitted with cough and fever. Over the last week or so, she had been treated for cystitis with Levaquin with resolution of her dysuria and frequency. However, while she continued the Levaquin, she developed some liquid stools, vomiting, and fever for a couple days. She saw Dr. León who directed her to the emergency room yesterday. Her white count was 9. Her sed rate was 100. Her CRP was 30. Creatinine was 1.5, up to 1.9 today. Her B natriuretic peptide was 1500 today. Her influenza PCR negative. Her Gram stain of sputum showed gram-positive cocci, gram-negative bacilli. The culture is pending. She had been on Levaquin and Flagyl here. She has had no fever. She endorses decreased energy, decreased appetite. Her diarrhea and vomiting resolved. She has no abdominal pain. She has continued to cough, it is productive. She feels like she is wheezing. She is still short of breath. PAST MEDICAL HISTORY: 1. Insulin-dependent diabetes. 2. Diabetic nephropathy. 3. Peripheral neuropathy. 4. Status post left below-knee amputation. 5. Carotid disease, status post endarterectomy. 6. Coronary artery disease, status post bypass graft. 7. Peripheral vascular disease. 8. Hypertension. 9. Hyperlipidemia. 10. Left subclavian stenosis, status post stent. 11. Restless legs syndrome. 12. Status post appendectomy. 13. Status post cholecystectomy. 14. Tonsillectomy. 15. Status post cervical and lumbar laminectomy. 16. History of C. difficile associated diarrhea. MEDICATIONS: 1. Tylenol. 2. Aspirin. 3. Lipitor. 4. Coreg. 5. Flagyl. 6. Heparin subcutaneous injection. 7. Ibuprofen. 8. Levaquin 250 mg IV daily. 9. Reglan. 10. Morphine. 11. Pramipexole. 12. Spironolactone. 13. Torsemide. ALLERGIES: 1. CEPHALOSPORIN, though she has tolerated cefepime. 2. VANCOMYCIN. 3. SULFA, which caused anaphylaxis. FAMILY HISTORY: No recurrent infections or tuberculosis that she knows of, she was adopted. SOCIAL HISTORY: She lives in [place] with her . No sick contacts. No travel. She has a pet dog at home. REVIEW OF SYSTEMS: A 14-point review of systems was all negative except as noted above in the history of present illness. PHYSICAL EXAM: Vital Signs: Temperature is 37, heart rate 70, respiratory rate 16, blood pressure 130/70, oxygen saturation 98% on room air. In general, she is awake, not in distress. Neurologic: She is oriented x3. Follows all commands. HEENT: There is no conjunctival hemorrhage. Oropharynx without lesions. Neck is supple without mass. Lymph Nodes: There is no cervical, supraclavicular, inguinal, axillary, or epitrochlear lymphadenopathy. Heart has regular rate and rhythm without murmurs, rubs, or gallops. Lungs: There are expiratory wheezes bilaterally with occasional rhonchi. Abdomen: Soft, nontender, nondistended. There are bowel sounds present. Skin: There is no rash or splinter hemorrhages. Musculoskeletal: No spine tenderness to palpation. There is a left below-knee amputation and that site is well healed. There is no erythema or wound. LABORATORY DATA: Creatinine 1.9. White blood cell count 4, hemoglobin 7, platelets 197, MCV 90. Urinalysis shows blood, leukocyte esterase, white cells. Influenza PCR negative. Please see impressions and recommendations outlined above. Thanks for asking me to see Ms. Galarza in consultation. [id number]/[facility] #: [id number] [facility] CENTERJaylen
[2018-03-15] MEDS ORDERED: Cefepime 1 GM in Dextrose(*) 1 GM/50 ML BAG IV SCH (16:00)
[2018-03-15] MEDS: DOXYcycline IV* 100 MG in NS 0.9% 250 ML* 250 ML IVPB SCH (16:31)
[2018-03-15] MEDS: Gabapentin CAP(*) 300 MG PO SCH (16:32)
[2018-03-15] MEDS ORDERED: Levofloxacin 250 MG IVPREMX(*) 250 MG/50 ML BAG IVPB SCH (18:00)
[2018-03-15] MEDS: Pramipexole TAB* 0.5 MG PO SCH (21:54)
[2018-03-16] MEDS: DOXYcycline IV* 100 MG in NS 0.9% 250 ML* 250 ML IVPB SCH ×2 (05:20→16:30)
[2018-03-16] MEDS: Heparin VIAL(*) 5000 UNITS/ML VIAL (FIVE THOUSAND) SUBCUT SCH ×3 (05:38→22:34)
[2018-03-16] MEDS: Morphine VIAL* 4 MG/ML VIAL (1 ml vial) IV PRN ×4 (05:39→22:35)
[2018-03-16 05:46] LABS: ABS Basophils 0 10^3/ul (0-0.2); ABS Eosinophils 0.1 10^3/ul (0-0.6); ABS Lymphocytes 0.8 10^3/ul (1.0-4.8); ABS Monocytes 0.5 10^3/ul (0-0.8); ABS Nucleated RBC 0 10^3/ul; Eosinophil % 1.6 % (0-6); Hematocrit 27 % (35-47); Hemoglobin 8.7 g/dl (12.0-16.0); Lymphocyte % 12.1 % (25-47); Mean Corpuscular HGB Conc 32 g/dl (31-36); Mean Corpuscular Hemoglobin 28 pg (27-31); Mean Corpuscular Volume 89 fL (80-97); Mean Platelet Volume 9.3 um3 (7.4-10.4); Nucleated Red Blood Cells % 0; Platelet Count 232 10^3/ul (150-450); Red Blood Count 3.07 10^6/ul (4.0-5.4); Red Cell Distribution Width 19 % (10.5-15); White Blood Count 6.4 10^3/ul (3.5-10.8)
[2018-03-16] MEDS ORDERED: Furosemide IV* 10 MG/ML 2 ML VIAL (20 MG) IV ONE ×2 (06:00→17:12)
[2018-03-16 06:09] LABS: EGFR Non-African American 34.3 (>60)
[2018-03-16] MEDS ORDERED: Furosemide IV* 10 MG/ML 2 ML VIAL (20 MG) ONE (06:09)
[2018-03-16] MEDS ORDERED: Furosemide IV* 10 MG/ML VIAL (40 MG) IV ONE (07:34)
[2018-03-16] MEDS: Mometasone/Formoter 100/5 MDI INH SCH ×2 (07:52→20:35)
--- NOTE | 2018-03-16 07:56 | RAD ---
HISTORY: Congestion, dyspnea COMPARISONS: March 15, 2018 VIEWS: 1: frontal portable view of the chest at 6:15 AM FINDINGS: LINES AND TUBES: Left-sided AICD pacemaker is noted. A right-sided chest port is noted with the tip overlying the superior vena cava. CARDIOMEDIASTINAL SILHOUETTE: The cardiomediastinal silhouette is normal for portable technique. PLEURA: The costophrenic angles are sharp. No pleural abnormalities are noted. LUNG PARENCHYMA: There is a diffuse reticular pattern with indistinct pulmonary vessels. ABDOMEN: The upper abdomen is clear. There is no subphrenic gas. BONES AND SOFT TISSUES: The patient is status post median sternotomy. IMPRESSION: PULMONARY INTERSTITIAL EDEMA
[2018-03-16] MEDS: Atorvastatin* 20 MG TAB PO SCH (08:04)
[2018-03-16] MEDS: Aspirin EC TAB* 81 MG TAB.EC PO SCH (08:04)
[2018-03-16] MEDS: Metoclopramide IV* 5 MG/ML 2 ML VIAL IV SCH ×3 (08:04→16:31)
[2018-03-16] MEDS: Torsemide TAB* 20 MG PO SCH (08:04)
[2018-03-16] MEDS: Spironolactone TAB* 25 MG PO SCH (08:05)
[2018-03-16] MEDS: Carvedilol TAB* 3.125 MG PO SCH (08:05)
--- NOTE | 2018-03-16 08:52 | PN ---
Subjective Date of Service: 03/16/18 Interval History: today pt developed HTN and SOB. No BM's since admission Objective Active Medications: Acetaminophen (Tylenol Tab*) 650 mg PO Q4H PRN PRN Reason: FEVER/PAIN Last Admin: 03/14/18 21:11 Dose: 650 mg Albuterol/Ipratropium (Duoneb (Albuterol 2.5 Mg/Ipratropium 0.5 Mg)) 1 neb INH Q4H PRN PRN Reason: WHEEZING Aspirin (Aspirin Ec Tab*) 81 mg PO QAM [facility] Last Admin: 03/16/18 08:04 Dose: 81 mg Atorvastatin Calcium (Lipitor*) 20 mg PO DAILY [facility] Last Admin: 03/16/18 08:04 Dose: 20 mg Carvedilol (Coreg Tab*) 1.5625 mg PO QAM [facility] Last Admin: 03/16/18 08:05 Dose: 1.5625 mg Dextrose (D50w Syringe 50 Ml*) 12.5 gm IV PUSH .FOR FS < 60 - SS PRN PRN Reason: FS < 60 Gabapentin (Neurontin Cap(*)) 1,800 mg PO QPM [facility] Last Admin: 03/15/18 16:32 Dose: 1,800 mg Heparin Sodium (Porcine) (Heparin Vial(*)) 5,000 units SUBCUT Q8HR [facility] Last Admin: 03/16/18 05:38 Dose: 5,000 units Heparin Sodium (Porcine) (Heparin Flush Port (Ivad)) 5 ml FLUSH DAILY [facility] PRN Reason: Protocol Last Admin: 03/16/18 08:04 Dose: Not Given Doxycycline Hyclate 100 mg/ (Sodium Chloride) 250 mls @ 250 mls/hr IVPB Q12H [facility] Last Admin: 03/16/18 05:20 Dose: 250 mls/hr Metoclopramide HCl (Reglan Iv*) 5 mg IV AC [facility] Last Admin: 03/16/18 08:04 Dose: 5 mg Mometasone Furoate/Formoterol Fumar (Dulera 100/5 Mdi*) 2 puff INH BID [facility] Last Admin: 03/16/18 07:52 Dose: Not Given Morphine Sulfate (Morphine Vial*) 1 mg IV Q4H PRN PRN Reason: PAIN Last Admin: 03/16/18 05:39 Dose: 1 mg Morphine Sulfate (Morphine Vial*) 1 mg IV Q4H PRN PRN Reason: PAIN Pramipexole Dihydrochloride (Mirapex Tab*) 0.5 mg PO BEDTIME [facility] Last Admin: 03/15/18 21:54 Dose: 0.5 mg Spironolactone (Aldactone Tab*) 12.5 mg PO DAILY [facility] Last Admin: 03/16/18 08:05 Dose: 12.5 mg Torsemide (Demadex*) 40 mg PO QAM [facility] Last Admin: 03/16/18 08:04 Dose: 40 mg Vital Signs - 8 hr 03/16/18 03/16/18 03/16/18 02:59 05:39 07:15 Temperature 98.1 F 98.1 F Pulse Rate 87 86 Respiratory 14 22 17 Rate Blood Pressure 157/86 168/92 (mmHg) O2 Sat by Pulse 99 96 Oximetry 03/16/18 07:28 Temperature Pulse Rate Respiratory 22 Rate Blood Pressure (mmHg) O2 Sat by Pulse Oximetry Oxygen Devices in Use Now: Nasal Cannula Appearance: 57 yo f in nAD, AAOx3 Eyes: No Scleral Icterus, PERRLA Ears/Nose/Mouth/Throat: NL Teeth, Lips, Gums, Mucous Membranes Moist Neck: NL Appearance and Movements; NL JVP, Trachea Midline Respiratory: - - rales b/l lower to mid lungs Cardiovascular: NL Sounds; No Murmurs; No JVD, RRR Abdominal: NL Sounds; No Tenderness; No Distention, No Hepatosplenomegaly Lymphatic: No Axillary Adenopathy Extremities: No Clubbing, Cyanosis, - - s/p L TMA Neurological: Alert and Oriented x 3, NL Muscle Strength and Tone Result Diagrams: 03/16/18 05:30 03/16/18 05:30 Assess/Plan/Problems-Billing Assessment: Ms. Galarza is a 57 yo female with PMH significant for DM, PVD, CKD, CVA, HTN, HLD, RLS, left subclavian stenosis (s/p stenting), CHF, COPD, anemia and neuropathy who presented to the emergency room with complaints of n/v, SOB and diarrhea - Patient Problems (1) Systolic CHF Comment: in exacerbation today, started IV Lasix. Gained 2 lbs in 24H - 09/26 Echo, EF 35-40% - Continue daily weights, strict I+O's, spironolactone, and torsemide (2) Aspiration pneumonia Comment: cont doxy. appreciate Dr. Damon's consult Pt clinically has aspiration PNA, identified on repeat CXR on 03/15/18 (3) Clostridium difficile diarrhea Comment: dx in 01/26, although presented with 5 BMs/Day now no BM since admission (4) Gastroparesis diabeticorum Comment: Pt has h/o gastroparesis, suspect n/v may be due to it Continue Reglan IV for N/V (5) Uncontrolled type II diabetes mellitus Comment: Had been on insulin pump, now fairly controlled. cont insulin pump-pt can adjust and bolus with meals (6) Anemia Comment: -drop in Hb suspect due to hemodilution, no c/o melena or BRBPR, but will check stool guaiac - Chronic, appears to be near her baseline, due to CKD - Will continue to monitor (7) CKD (chronic kidney disease) stage 3, GFR 30-59 ml/min Comment: - Creatinine near baseline but rising (8) Abnormal urinalysis Comment: multi drug resistant E coli pyelo 1 month ago. Awaiting cx, ESR markedly elevated. renal US unremarkable (9) DVT prophylaxis Comment: HSQ Status and Disposition: inpatient
[2018-03-16] MEDS: Gabapentin CAP(*) 300 MG PO SCH (16:31)
[2018-03-16] MEDS: Pramipexole TAB* 0.5 MG PO SCH (22:34)
[2018-03-17] MEDS ORDERED: hydrALAZINE IV* 20 MG/ML VIAL IV SLOW PU PRN (01:52)
[2018-03-17] MEDS ORDERED: Morphine VIAL* 4 MG/ML VIAL (1 ml vial) IV ONE (01:53)
[2018-03-17] MEDS: DOXYcycline IV* 100 MG in NS 0.9% 250 ML* 250 ML IVPB SCH ×2 (04:11→16:22)
[2018-03-17] MEDS: Heparin VIAL(*) 5000 UNITS/ML VIAL (FIVE THOUSAND) SUBCUT SCH ×3 (05:41→21:09)
[2018-03-17] MEDS: Morphine VIAL* 4 MG/ML VIAL (1 ml vial) IV PRN ×4 (05:44→22:19)
[2018-03-17 06:23] LABS: EGFR Non-African American 40.9 (>60)
[2018-03-17] MEDS ORDERED: Furosemide IV* 10 MG/ML 2 ML VIAL (20 MG) IV ONE (07:36)
[2018-03-17] MEDS: Metoclopramide IV* 5 MG/ML 2 ML VIAL IV SCH ×3 (07:38→16:23)
[2018-03-17] MEDS: Acetaminophen TAB* 325 MG PO PRN ×2 (07:55→21:08)
[2018-03-17] MEDS: Torsemide TAB* 20 MG PO SCH (07:56)
[2018-03-17] MEDS: Aspirin EC TAB* 81 MG TAB.EC PO SCH (07:59)
[2018-03-17] MEDS: Atorvastatin* 20 MG TAB PO SCH (07:59)
[2018-03-17] MEDS: Carvedilol TAB* 3.125 MG PO SCH (08:00)
[2018-03-17] MEDS: Spironolactone TAB* 25 MG PO SCH (08:00)
[2018-03-17] MEDS: Mometasone/Formoter 100/5 MDI INH SCH ×2 (08:47→20:52)
[2018-03-17] MEDS: Valsartan TAB* 40 MG PO SCH (09:46)
[2018-03-17] MEDS ORDERED: Ibuprofen TAB* 800 MG PO ONE (10:09)
[2018-03-17] MEDS ORDERED: Acetaminophen TAB* 325 MG PO ONE (10:10)
--- NOTE | 2018-03-17 10:18 | PN ---
Subjective Date of Service: 03/17/18 Interval History: Pt c/o migraine headache and nausea. Has not had a migraine like this "for a long time". Her insulin pump is out of insulin [employer]. They're at home, but apparently her is "not in town" and there is nobody who could bring the cartriges from home. Objective Active Medications: Acetaminophen (Tylenol Tab*) 650 mg PO Q4H PRN PRN Reason: FEVER/PAIN Last Admin: 03/17/18 07:55 Dose: 650 mg Acetaminophen (Tylenol Tab*) 650 mg PO ONCE ONE Stop: 03/17/18 10:11 Albuterol/Ipratropium (Duoneb (Albuterol 2.5 Mg/Ipratropium 0.5 Mg)) 1 neb INH Q4H PRN PRN Reason: WHEEZING Aspirin (Aspirin Ec Tab*) 81 mg PO QAM [facility] Last Admin: 03/17/18 07:59 Dose: 81 mg Atorvastatin Calcium (Lipitor*) 20 mg PO DAILY [facility] Last Admin: 03/17/18 07:59 Dose: 20 mg Carvedilol (Coreg Tab*) 1.5625 mg PO QAM [facility] Last Admin: 03/17/18 08:00 Dose: 1.5625 mg Dextrose (D50w Syringe 50 Ml*) 12.5 gm IV PUSH .FOR FS < 60 - SS PRN PRN Reason: FS < 60 Gabapentin (Neurontin Cap(*)) 1,800 mg PO QPM [facility] Last Admin: 03/16/18 16:31 Dose: 1,800 mg Heparin Sodium (Porcine) (Heparin Vial(*)) 5,000 units SUBCUT Q8HR [facility] Last Admin: 03/17/18 05:41 Dose: 5,000 units Heparin Sodium (Porcine) (Heparin Flush Port (Ivad)) 5 ml FLUSH DAILY [facility] PRN Reason: Protocol Last Admin: 03/17/18 09:53 Dose: 5 ml Hydralazine HCl (Apresoline Iv*) 5 mg IV SLOW PU Q6H PRN PRN Reason: SBP>180 Last Admin: 03/17/18 02:14 Dose: 5 mg Doxycycline Hyclate 100 mg/ (Sodium Chloride) 250 mls @ 250 mls/hr IVPB Q12H [facility] Last Admin: 03/17/18 04:11 Dose: 250 mls/hr Ibuprofen (Motrin Tab*) 800 mg PO ONCE ONE Stop: 03/17/18 10:10 Metoclopramide HCl (Reglan Iv*) 5 mg IV AC [facility] Last Admin: 03/17/18 07:38 Dose: 5 mg Mometasone Furoate/Formoterol Fumar (Dulera 100/5 Mdi*) 2 puff INH BID [facility] Last Admin: 03/17/18 08:47 Dose: Not Given Morphine Sulfate (Morphine Vial*) 1 mg IV Q4H PRN PRN Reason: PAIN Last Admin: 03/17/18 09:51 Dose: 1 mg Morphine Sulfate (Morphine Vial*) 1 mg IV Q4H PRN PRN Reason: PAIN Pramipexole Dihydrochloride (Mirapex Tab*) 0.5 mg PO BEDTIME [facility] Last Admin: 03/16/18 22:34 Dose: 0.5 mg Scopolamine (Transderm-Scop 1.5 Mg Patch*) 1 patch TRANSDERM Q72H [facility] Spironolactone (Aldactone Tab*) 12.5 mg PO DAILY [facility] Last Admin: 03/17/18 08:00 Dose: 12.5 mg Torsemide (Demadex*) 40 mg PO QAM [facility] Last Admin: 03/17/18 07:56 Dose: 40 mg Valsartan (Diovan Tab*) 40 mg PO DAILY [facility] Last Admin: 03/17/18 09:46 Dose: 40 mg Vital Signs - 8 hr 03/17/18 03/17/18 03/17/18 02:52 03:15 05:44 Temperature 98.3 F Pulse Rate 87 Respiratory 20 20 20 Rate Blood Pressure 155/87 (mmHg) O2 Sat by Pulse 98 Oximetry 03/17/18 03/17/18 03/17/18 06:50 07:36 09:51 Temperature 98.1 F Pulse Rate 91 Respiratory 20 20 20 Rate Blood Pressure 156/78 (mmHg) O2 Sat by Pulse 98 Oximetry Oxygen Devices in Use Now: Nasal Cannula Appearance: 57 yo f in nAD, aAOx3 Eyes: No Scleral Icterus, PERRLA Ears/Nose/Mouth/Throat: NL Teeth, Lips, Gums, Mucous Membranes Moist Neck: NL Appearance and Movements; NL JVP, Trachea Midline Respiratory: Symmetrical Chest Expansion and Respiratory Effort, - - rhonchi at LLL Cardiovascular: NL Sounds; No Murmurs; No JVD, RRR Abdominal: NL Sounds; No Tenderness; No Distention, No Hepatosplenomegaly Lymphatic: No Cervical Adenopathy Extremities: No Edema, No Clubbing, Cyanosis, - - left leg stump intact Skin: No Rash or Ulcers, No Nodules or Sclerosis Neurological: Alert and Oriented x 3, NL Muscle Strength and Tone Result Diagrams: 03/16/18 05:30 03/17/18 06:00 Assess/Plan/Problems-Billing Assessment: Ms. Galarza is a 57 yo female with PMH significant for DM, PVD, CKD, CVA, HTN, HLD, RLS, left subclavian stenosis (s/p stenting), CHF, COPD, anemia and neuropathy who presented to the emergency room with complaints of n/v, SOB and diarrhea - Patient Problems (1) Systolic CHF Comment: trending toward euvolemia. will tx with one more dose of IV Lasix today.Gained 2 lbs in 24H - 09/26 Echo, EF 35-40% - Continue daily weights, strict I+O's, spironolactone, and torsemide (2) Aspiration pneumonia Comment: cont doxy. Pt does not tolerate PO doxy . she will have to stay till 07/28 to complete 7 day course of antibiotics. appreciate Dr. Damon's consult Pt clinically has aspiration PNA, identified on repeat CXR on 03/15/18 (3) Clostridium difficile diarrhea Comment: dx in 01/26, although presented with 5 BMs/Day now no BM since admission (4) Gastroparesis diabeticorum Comment: Pt has h/o gastroparesis, suspect n/v may be due to it Continue Reglan IV for N/V (5) Uncontrolled type II diabetes mellitus Comment: Had been on insulin pump, now out of cartridges. will start Lantus, cont ISS.. (6) Anemia Comment: -drop in Hb suspect due to hemodilution, no c/o melena or BRBPR, but will check stool guaiac - Chronic, appears to be near her baseline, due to CKD - Will continue to monitor (7) CKD (chronic kidney disease) stage 3, GFR 30-59 ml/min Comment: - Creatinine near baseline but rising (8) Abnormal urinalysis Comment: multi drug resistant E coli pyelo 1 month ago. Cx negative renal US unremarkable (9) HTN (hypertension) Comment: still uncontrolled. will add on Valsartan from home mds (10) DVT prophylaxis Comment: HSQ Status and Disposition: inpatient
[2018-03-17] MEDS: Insulin GLARGINE(*) 1 UNITS UNIT SUBCUT SCH (11:19)
[2018-03-17] MEDS: Scopolamine 1.5 mg* PATCH TRANSDERM SCH (11:19)
[2018-03-17] MEDS: Gabapentin CAP(*) 300 MG PO SCH (17:43)
[2018-03-17] MEDS: Pramipexole TAB* 0.5 MG PO SCH (21:08)
[2018-03-18] MEDS: Acetaminophen TAB* 325 MG PO PRN (02:58)
[2018-03-18] MEDS: Morphine VIAL* 4 MG/ML VIAL (1 ml vial) IV PRN ×4 (02:58→21:29)
[2018-03-18] MEDS: DOXYcycline IV* 100 MG in NS 0.9% 250 ML* 250 ML IVPB SCH ×2 (05:14→15:58)
[2018-03-18] MEDS: Heparin VIAL(*) 5000 UNITS/ML VIAL (FIVE THOUSAND) SUBCUT SCH ×3 (05:15→21:29)
[2018-03-18 05:41] LABS: ABS Basophils 0.1 10^3/ul (0-0.2); ABS Eosinophils 0.1 10^3/ul (0-0.6); ABS Lymphocytes 0.9 10^3/ul (1.0-4.8); ABS Monocytes 0.5 10^3/ul (0-0.8); ABS Neutrophils 6.4 10^3/ul (1.5-7.7); ABS Nucleated RBC 0 10^3/ul; Eosinophil % 0.9 % (0-6); Hematocrit 26 % (35-47); Hemoglobin 8.1 g/dl (12.0-16.0); Lymphocyte % 11.8 % (25-47); Mean Corpuscular HGB Conc 32 g/dl (31-36); Mean Corpuscular Hemoglobin 28 pg (27-31); Mean Corpuscular Volume 88 fL (80-97); Mean Platelet Volume 9.2 um3 (7.4-10.4); Nucleated Red Blood Cells % 0; Platelet Count 255 10^3/ul (150-450); Red Cell Distribution Width 19 % (10.5-15)
[2018-03-18 05:55] LABS: EGFR Non-African American 36.5 (>60)
[2018-03-18] MEDS: Metoclopramide IV* 5 MG/ML 2 ML VIAL IV SCH ×2 (07:59→11:00)
[2018-03-18] MEDS: Mometasone/Formoter 100/5 MDI INH SCH ×2 (08:34→21:33)
[2018-03-18] MEDS: Aspirin EC TAB* 81 MG TAB.EC PO SCH (09:15)
[2018-03-18] MEDS: Atorvastatin* 20 MG TAB PO SCH (09:15)
[2018-03-18] MEDS: Valsartan TAB* 40 MG PO SCH (09:16)
--- NOTE | 2018-03-18 09:19 | PN ---
Progress Note - Progress Note Date of Service: 03/18/18 SOAP: Subjective: CC: nausea HPI: 57 year old woman with cough and CHF, no with nausea and anorexia. Minimal BM x2-3 days. No fever or rash. Objective: Vital Signs Temp 36.6 C 03/18/18 07:27 Pulse 77 03/18/18 07:27 Resp 22 03/18/18 08:10 BP 155/69 03/18/18 07:27 Pulse Ox 99 03/18/18 08:00 Intake & Output 03/17/18 03/18/18 03/18/18 18:59 06:59 18:59 Intake Total 0 0 Output Total 100 Balance -100 0 Weight 142 lb 11.2 oz 142 lb 1.6 oz Intake: IV Fluids 0 NS (0.9%) 0 Oral 0 0 Output: Urine 100 Other: Estimated Void Medium # Voids 2 0 Gen:awake, no distress HEENT: no thrush Heart:RRR no murmur Lungs:expir wheeze BL Abd:decr BS soft non tender Skin: no rash Laboratory Results - last 24 hr 03/17/18 03/17/18 03/17/18 12:02 16:35 20:28 WBC RBC Hgb Hct MCV MCH MCHC RDW Plt Count MPV Neut % (Auto) Lymph % (Auto) Mason % (Auto) Eos % (Auto) Baso % (Auto) Absolute Neuts (auto) Absolute Lymphs (auto) Absolute Monos (auto) Absolute Eos (auto) Absolute Basos (auto) Absolute Nucleated RBC Nucleated RBC % Sodium Potassium Chloride Carbon Dioxide Anion Gap BUN Creatinine Est GFR ( Amer) Est GFR (Non-Af Amer) BUN/Creatinine Ratio Glucose POC Glucose (mg/dL) 184 H 175 H 142 H Calcium 03/18/18 03/18/18 03/18/18 05:10 05:10 07:42 WBC 8.0 RBC 2.90 L Hgb 8.1 L Hct 26 L MCV 88 MCH 28 MCHC 32 RDW 19 H Plt Count 255 MPV 9.2 Neut % (Auto) 80.3 Lymph % (Auto) 11.8 L Mason % (Auto) 6.3 Eos % (Auto) 0.9 Baso % (Auto) 0.7 Absolute Neuts (auto) 6.4 Absolute Lymphs (auto) 0.9 L Absolute Monos (auto) 0.5 Absolute Eos (auto) 0.1 Absolute Basos (auto) 0.1 Absolute Nucleated RBC 0 Nucleated RBC % 0 Sodium 137 L Potassium 4.2 Chloride 104 Carbon Dioxide 26 Anion Gap 7 BUN 43 H Creatinine 1.48 H Est GFR ( Amer) 46.9 Est GFR (Non-Af Amer) 36.5 BUN/Creatinine Ratio 29.1 H Glucose 109 H POC Glucose (mg/dL) 115 H Calcium 8.5 L Assessment: 1. nausea with decr BS ?ileus vs doxy side effect 2. acute hypoxemic resp failure, present on admission, due to CHF 3. fever with cough, initially treated as pneumonia 4. cephalosporin allergy Plan: 1. continue doxy twice daily, day 4/5 ?ileus discussed with Dr Pacheco
[2018-03-18] MEDS: Insulin GLARGINE(*) 1 UNITS UNIT SUBCUT SCH (11:00)
[2018-03-18] MEDS: Ondansetron 40 MG VIAL* 2 MG/ML 20 ML VIAL IV PRN ×2 (11:01→17:24)
[2018-03-18] MEDS ORDERED: diPHENhydraMINE IV* 50 MG/ML 1 ml VIAL (BENADRYL) IV PRN (11:05)
[2018-03-18] MEDS: Spironolactone TAB* 25 MG PO SCH (11:25)
[2018-03-18] MEDS: Carvedilol TAB* 3.125 MG PO SCH ×2 (11:25→21:31)
[2018-03-18] MEDS: Torsemide TAB* 20 MG PO SCH (11:26)
[2018-03-18] MEDS: methylPREDNISolone SOD 40 MG* 1 ML VIAL IV SCH ×2 (12:07→21:29)
[2018-03-18] MEDS: PROCHLORPERAZINE INJ 5 MG/ML 2 ML VIAL IV PRN (12:08)
--- NOTE | 2018-03-18 12:24 | PN ---
Subjective Date of Service: 03/18/18 Interval History: Pt still c/o frontal headache, some photophobia. c/o nausea, but able to drink. No BM since admission, but passing flatus, denies abd pain Objective Active Medications: Acetaminophen (Tylenol Tab*) 650 mg PO Q4H PRN PRN Reason: FEVER/PAIN Last Admin: 03/18/18 02:58 Dose: 650 mg Albuterol/Ipratropium (Duoneb (Albuterol 2.5 Mg/Ipratropium 0.5 Mg)) 1 neb INH Q4H PRN PRN Reason: WHEEZING Aspirin (Aspirin Ec Tab*) 81 mg PO QAM [facility] Last Admin: 03/18/18 09:15 Dose: Not Given Atorvastatin Calcium (Lipitor*) 20 mg PO DAILY [facility] Last Admin: 03/18/18 09:15 Dose: Not Given Carvedilol (Coreg Tab*) 1.5625 mg PO QAM [facility] Last Admin: 03/18/18 11:25 Dose: Not Given Dextrose (D50w Syringe 50 Ml*) 12.5 gm IV PUSH .FOR FS < 60 - SS PRN PRN Reason: FS < 60 Diphenhydramine HCl (Benadryl Iv*) 25 mg IV Q6H PRN PRN Reason: PRURITIS Last Admin: 03/18/18 12:07 Dose: 25 mg Gabapentin (Neurontin Cap(*)) 1,800 mg PO QPM [facility] Last Admin: 03/17/18 17:43 Dose: 1,800 mg Heparin Sodium (Porcine) (Heparin Vial(*)) 5,000 units SUBCUT Q8HR [facility] Last Admin: 03/18/18 05:15 Dose: 5,000 units Heparin Sodium (Porcine) (Heparin Flush Port (Ivad)) 5 ml FLUSH DAILY [facility] PRN Reason: Protocol Last Admin: 03/18/18 08:11 Dose: 5 ml Hydralazine HCl (Apresoline Iv*) 5 mg IV SLOW PU Q6H PRN PRN Reason: SBP>180 Last Admin: 03/17/18 02:14 Dose: 5 mg Doxycycline Hyclate 100 mg/ (Sodium Chloride) 250 mls @ 250 mls/hr IVPB Q12H [facility] Last Admin: 03/18/18 05:14 Dose: 250 mls/hr Insulin Glargine (Lantus(*)) 10 units SUBCUT Q24H [facility] Last Admin: 03/18/18 11:00 Dose: 10 units Methylprednisolone Sodium Succinate (Solu-Medrol 40 Mg) 40 mg IV Q8H [facility] Last Admin: 03/18/18 12:07 Dose: 40 mg Mometasone Furoate/Formoterol Fumar (Dulera 100/5 Mdi*) 2 puff INH BID [facility] Last Admin: 03/18/18 08:34 Dose: Not Given Morphine Sulfate (Morphine Vial*) 1 mg IV Q4H PRN PRN Reason: PAIN Last Admin: 03/18/18 08:10 Dose: 1 mg Morphine Sulfate (Morphine Vial*) 1 mg IV Q4H PRN PRN Reason: PAIN Ondansetron HCl (Zofran 40 Mg Vial*) 4 mg IV Q6H PRN PRN Reason: NAUSEA Last Admin: 03/18/18 11:01 Dose: 4 mg Pharmacy Profile Note (Scopolamine Patch Remove*) 1 note PATCH OFF Q72H [facility] Pramipexole Dihydrochloride (Mirapex Tab*) 0.5 mg PO BEDTIME [facility] Last Admin: 03/17/18 21:08 Dose: 0.5 mg Prochlorperazine Edisylate (Compazine Inj*) 10 mg IV Q6H PRN PRN Reason: NAUSEA/VOMITING Last Admin: 03/18/18 12:08 Dose: 10 mg Scopolamine (Transderm-Scop 1.5 Mg Patch*) 1 patch TRANSDERM Q72H [facility] Last Admin: 03/17/18 11:19 Dose: 1 patch Spironolactone (Aldactone Tab*) 12.5 mg PO DAILY [facility] Last Admin: 03/18/18 11:25 Dose: Not Given Torsemide (Demadex*) 40 mg PO QAM [facility] Last Admin: 03/18/18 11:26 Dose: Not Given Valsartan (Diovan Tab*) 40 mg PO DAILY [facility] Last Admin: 03/18/18 09:16 Dose: Not Given Vital Signs - 8 hr 03/18/18 03/18/18 03/18/18 05:19 07:27 08:00 Temperature 97.8 F Pulse Rate 77 Respiratory 18 18 22 Rate Blood Pressure 155/69 (mmHg) O2 Sat by Pulse 99 99 Oximetry 03/18/18 03/18/18 03/18/18 08:10 09:41 11:14 Temperature Pulse Rate 80 Respiratory 22 20 20 Rate Blood Pressure 157/70 (mmHg) O2 Sat by Pulse 98 Oximetry 03/18/18 12:07 Temperature Pulse Rate Respiratory 20 Rate Blood Pressure (mmHg) O2 Sat by Pulse Oximetry Oxygen Devices in Use Now: Nasal Cannula Appearance: 57 yo F in nAD, aAOx3 Eyes: No Scleral Icterus, PERRLA Ears/Nose/Mouth/Throat: NL Teeth, Lips, Gums, Mucous Membranes Moist Neck: NL Appearance and Movements; NL JVP, Trachea Midline Respiratory: Symmetrical Chest Expansion and Respiratory Effort, - - wheezes b/ l mild to lower lungs , rhonchi LLL Cardiovascular: NL Sounds; No Murmurs; No JVD, RRR Abdominal: NL Sounds; No Tenderness; No Distention Lymphatic: No Cervical Adenopathy Extremities: No Edema, No Clubbing, Cyanosis, - - L BKA Skin: No Rash or Ulcers, No Nodules or Sclerosis Neurological: Alert and Oriented x 3, NL Muscle Strength and Tone Result Diagrams: 03/18/18 05:10 03/18/18 05:10 Assess/Plan/Problems-Billing Assessment: Ms. Galarza is a 57 yo female with PMH significant for DM, PVD, CKD, CVA, HTN, HLD, RLS, left subclavian stenosis (s/p stenting), CHF, COPD, anemia and neuropathy who presented to the emergency room with complaints of n/v, SOB and diarrhea - Patient Problems (1) Headache Comment: pt stated that "it feels like a migraine headache", but she has not had one in a long time. D/w DR. Rudolph toscano will see pt in consult. will start compazine and benadryl IV (2) Systolic CHF Comment: wt decreased, poor PO intake due to nausea.No evidence of fCHF today. wheezes on exam likely due to bronchospasm - 09/26 Echo, EF 35-40% - Continue daily weights, strict I+O's, spironolactone, and torsemide (3) Aspiration pneumonia Comment: cont doxy. Pt does not tolerate PO doxy . As per Dr. Damon pt will need a total of 5 days of antibiotic tx. Last dose tomorrow Pt clinically has aspiration PNA, identified on repeat CXR on 03/15/18 (4) Gastroparesis diabeticorum Comment: Pt has h/o gastroparesis, but also it is possible that current nausea is related to migraine. Will d/c reglan and start benadryl and compazine as recommended by neuro (5) Uncontrolled type II diabetes mellitus Comment: Had been on insulin pump, now out of cartridges.cont Lantus, cont ISS. (6) Anemia Comment: -drop in Hb at admission suspect due to hemodilution, no c/o melena or BRBPR stool guaiac pending - Chronic, appears to be near her baseline, due to CKD - Will continue to monitor (7) CKD (chronic kidney disease) stage 3, GFR 30-59 ml/min Comment: - Creatinine near baseline (8) Abnormal urinalysis Comment: multi drug resistant E coli pyelo 1 month ago. Cx negative renal US unremarkable (9) HTN (hypertension) Comment: still uncontrolled. will increase coreg to 3.125 mg BID (10) DVT prophylaxis Comment: HSQ Status and Disposition: inpatient
[2018-03-18] MEDS ORDERED: Carvedilol TAB* 3.125 MG PO SCH (12:31)
[2018-03-18] MEDS ORDERED: Magnesium Hydroxide LIQ* 30 ML UDC PO PRN (12:36)
[2018-03-18] MEDS ORDERED: Furosemide IV* 10 MG/ML 2 ML VIAL (20 MG) IV ONE (15:41)
[2018-03-18] MEDS ORDERED: Magnesium Sulfate 2 GM IV* 2 GM/50 ML BAG IVPB ONE (17:17)
[2018-03-18] MEDS: Gabapentin CAP(*) 300 MG PO SCH (17:24)
[2018-03-18] MEDS: Pramipexole TAB* 0.5 MG PO SCH (21:31)
[2018-03-18] MEDS: Docusate CAP* 100 MG PO SCH (21:31)
--- NOTE | 2018-03-18 22:17 | CONS ---
NEUROLOGY CONSULTATION: DATE OF CONSULT: 03/18/18 LOCATION: She is an inpatient in room 421. REFERRING PROVIDER: Dr. Pacheco. CHIEF COMPLAINT: Headache. HISTORY OF PRESENT ILLNESS: Michelle Galarza is a 57-year-old woman admitted on with a fever and pneumonia. She developed headaches sometime soon after admission. She has a history of migraines, but has not had them much in recent years. She does get dull headaches occasionally. She was treated with Zofran and also opiates, but she still has a headache. She was given some Benadryl and Compazine early today and her nausea has improved, but still present. Her headache is "a little better." I was asked to see her in consultation. She reports migraines going back to young adult years. She has got a lot of light sensitivity with them and pounding headaches. She has not had those in quite a while. She does get occasional milder headaches. She denies change in vision or double vision. She denies stiff neck. She has been treated with doxycycline since she came in. She states she has had doxycycline in the past and that did not give her headaches. PAST MEDICAL HISTORY: Notable for type 2 diabetes, on an insulin pump; coronary artery bypass graft; carotid stenosis, treated with bilateral stenting ; peripheral vascular disease; stage 3 chronic kidney disease; hypertension; hyperlipidemia; left subclavian stenosis, which was stented; left below the knee amputation in 2017 for osteomyelitis; restless legs syndrome; cervical and lumbar laminectomies; C. difficile pseudomembranous colitis; peripheral neuropathy. ALLERGIES: She is said to be allergic to CEPHALOSPORIN, VANCOMYCIN, and SULFA DRUGS which caused anaphylaxis. REVIEW OF SYSTEMS: From the patient is mainly notable for the nausea and headache. She feels chronically fatigued. She has restlessness in her legs as I evaluate her. PHYSICAL EXAM: She is a chronically ill-appearing woman in her hospital bed. She is restless, but cooperative. Most recent temperature is 97.8 orally, blood pressure 155/69, heart rate 70 and regular, respiratory rate 22. Oxygen saturation is 99% on supplemental oxygen. Lungs: Reveal some wheezes on the left side. Heart tones seem distant, but I do not hear murmurs. Neck is supple. Oral mucosa is moist. I do not hear any cervical bruits. Neurologically, pupils react equally from about 3.5 to 3 mm. Funduscopic exam reveals sharp discs bilaterally. Eye movements and visual baumann are full. Facial musculature is symmetric. Speech is soft, but clear. Motor exam is limited as she is diffusely weak. She is alert and oriented to person, place, and time. Attention and concentration are impaired by her fatigue. Fund of knowledge seems adequate and language is fluent. DIAGNOSTIC STUDIES/LAB DATA: Includes a CBC from today notable for hemoglobin 8.1, hematocrit 26%, platelet count 255,000, and white blood cell count 8.0. Chemistries from today notable for sodium of 137, BUN 43, creatinine 1.48, glucose 109. She had a CT scan of the brain in September, which I reviewed and is interpreted as normal. There is a question of pontine infarction on her prior CAT scan, but that was no longer visible on the scan on the , so was felt to be artifactual. IMPRESSION AND PLAN: Impression is that of a headache in a patient, who is quite ill with history of migraines. I do not see much evidence to suggest increased intracranial pressure or an intracranial infection. She is quite ill and weak, but I do not see anything focal on her exam to suggest a cerebrovascular event. She has responded a little bit to Compazine and diphenhydramine. Certainly, triptans or any vasoconstrictive agents need to be avoided. Doxycycline is on the fourth day and perhaps when that is stopped, her headache will improve if that is a factor. We have recommended a trial of metoclopramide. If the Compazine does not work and the headaches do not resolve, we would stop then the doxycycline. Other than that, I think simple analgesics and opiates should be used, as nonsteroidals and triptans could cause further complications with her diabetes and panvascular disease. I do not think she needs neuroimaging unless new symptoms develop. Likewise, I do not think she needs a lumbar puncture at this point, as her fever has come down as is her white count and she does not show signs of meningismus. Certainly, if she changes clinically that will need to be reevaluated. [id number]/[facility] #: [id number] [facility] CENTERJaylen
[2018-03-19] MEDS ORDERED: Insulin LISPRO* 1 UNITS UNIT SUBCUT ONE ×2 (00:45→19:00)
[2018-03-19] MEDS: DOXYcycline IV* 100 MG in NS 0.9% 250 ML* 250 ML IVPB SCH ×2 (04:09→15:40)
[2018-03-19] MEDS: methylPREDNISolone SOD 40 MG* 1 ML VIAL IV SCH ×2 (04:09→12:33)
[2018-03-19] MEDS: Morphine VIAL* 4 MG/ML VIAL (1 ml vial) IV PRN ×4 (04:19→20:43)
[2018-03-19] MEDS: Mometasone/Formoter 100/5 MDI INH SCH ×2 (07:40→21:00)
[2018-03-19] MEDS ORDERED: Dextrose 50% Syringe 50 ML* 25 GM/50 ML SYRINGE IV PUSH PRN (07:46)
[2018-03-19] MEDS: Torsemide TAB* 20 MG PO SCH (08:02)
[2018-03-19] MEDS: Atorvastatin* 20 MG TAB PO SCH (08:02)
[2018-03-19] MEDS: Aspirin EC TAB* 81 MG TAB.EC PO SCH (08:02)
[2018-03-19] MEDS: Carvedilol TAB* 3.125 MG PO SCH ×2 (08:02→20:45)
[2018-03-19] MEDS: Valsartan TAB* 40 MG PO SCH (08:02)
[2018-03-19] MEDS: Docusate CAP* 100 MG PO SCH ×2 (08:02→20:45)
[2018-03-19] MEDS: Spironolactone TAB* 25 MG PO SCH (08:03)
[2018-03-19] MEDS: Insulin GLARGINE(*) 1 UNITS UNIT SUBCUT SCH (11:48)
[2018-03-19] MEDS: Insulin LISPRO* 1 UNITS UNIT SUBCUT SCH ×3 (12:33→19:14)
[2018-03-19] MEDS ORDERED: Insulin GLARGINE(*) 1 UNITS UNIT SUBCUT ONE ×2 (13:17→19:00)
--- NOTE | 2018-03-19 15:25 | PN ---
Subjective Date of Service: 03/19/18 Interval History: Pt feels better. still some headache , but she ate today . SOB resolved Objective Active Medications: Acetaminophen (Tylenol Tab*) 650 mg PO Q4H PRN PRN Reason: FEVER/PAIN Last Admin: 03/18/18 02:58 Dose: 650 mg Albuterol/Ipratropium (Duoneb (Albuterol 2.5 Mg/Ipratropium 0.5 Mg)) 1 neb INH Q4H PRN PRN Reason: WHEEZING Aspirin (Aspirin Ec Tab*) 81 mg PO QAM [facility] Last Admin: 03/19/18 08:02 Dose: 81 mg Atorvastatin Calcium (Lipitor*) 20 mg PO DAILY [facility] Last Admin: 03/19/18 08:02 Dose: 20 mg Carvedilol (Coreg Tab*) 3.125 mg PO BID [facility] Last Admin: 03/19/18 08:02 Dose: 3.125 mg Dextrose (D50w Syringe 50 Ml*) 12.5 gm IV PUSH .FOR FS < 60 - SS PRN PRN Reason: FS < 60 Diphenhydramine HCl (Benadryl Iv*) 25 mg IV Q6H PRN PRN Reason: PRURITIS Last Admin: 03/18/18 12:07 Dose: 25 mg Docusate Sodium (Colace Cap*) 100 mg PO BID [facility] Last Admin: 03/19/18 08:02 Dose: 100 mg Gabapentin (Neurontin Cap(*)) 1,800 mg PO QPM [facility] Last Admin: 03/18/18 17:24 Dose: 1,800 mg Heparin Sodium (Porcine) (Heparin Vial(*)) 5,000 units SUBCUT Q8HR [facility] Last Admin: 03/18/18 21:29 Dose: 5,000 units Heparin Sodium (Porcine) (Heparin Flush Port (Ivad)) 5 ml FLUSH DAILY [facility] PRN Reason: Protocol Last Admin: 03/19/18 08:02 Dose: 5 ml Hydralazine HCl (Apresoline Iv*) 5 mg IV SLOW PU Q6H PRN PRN Reason: SBP>180 Last Admin: 03/17/18 02:14 Dose: 5 mg Doxycycline Hyclate 100 mg/ (Sodium Chloride) 250 mls @ 250 mls/hr IVPB Q12H [facility] Last Admin: 03/19/18 04:09 Dose: 250 mls/hr Insulin Glargine (Lantus(*)) 20 units SUBCUT Q24H [facility] Insulin Human Lispro (Humalog*) 0 units SUBCUT ACHS [facility] PRN Reason: Protocol Last Admin: 03/19/18 12:33 Dose: 10 units Magnesium Hydroxide (Milk Of Magnesia Liq*) 30 ml PO Q4H PRN PRN Reason: CONSTIPATION Methylprednisolone Sodium Succinate (Solu-Medrol 40 Mg) 40 mg IV Q8H [facility] Last Admin: 03/19/18 12:33 Dose: 40 mg Mometasone Furoate/Formoterol Fumar (Dulera 100/5 Mdi*) 2 puff INH BID [facility] Last Admin: 03/19/18 07:40 Dose: 2 puff Morphine Sulfate (Morphine Vial*) 1 mg IV Q4H PRN PRN Reason: PAIN Last Admin: 03/19/18 12:33 Dose: 1 mg Morphine Sulfate (Morphine Vial*) 1 mg IV Q4H PRN PRN Reason: PAIN Ondansetron HCl (Zofran 40 Mg Vial*) 4 mg IV Q6H PRN PRN Reason: NAUSEA Last Admin: 03/18/18 17:24 Dose: 4 mg Pharmacy Profile Note (Scopolamine Patch Remove*) 1 note PATCH OFF Q72H [facility] Pramipexole Dihydrochloride (Mirapex Tab*) 0.5 mg PO BEDTIME [facility] Last Admin: 03/18/18 21:31 Dose: 0.5 mg Prochlorperazine Edisylate (Compazine Inj*) 10 mg IV Q6H PRN PRN Reason: NAUSEA/VOMITING Last Admin: 03/18/18 12:08 Dose: 10 mg Scopolamine (Transderm-Scop 1.5 Mg Patch*) 1 patch TRANSDERM Q72H [facility] Last Admin: 03/17/18 11:19 Dose: 1 patch Spironolactone (Aldactone Tab*) 12.5 mg PO DAILY [facility] Last Admin: 03/19/18 08:03 Dose: 12.5 mg Torsemide (Demadex*) 40 mg PO QAM [facility] Last Admin: 03/19/18 08:02 Dose: 40 mg Valsartan (Diovan Tab*) 40 mg PO DAILY [facility] Last Admin: 03/19/18 08:02 Dose: 40 mg Vital Signs - 8 hr 03/19/18 03/19/18 03/19/18 07:34 08:22 09:09 Temperature 97.7 F Pulse Rate 80 Respiratory 18 14 20 Rate Blood Pressure 149/72 (mmHg) O2 Sat by Pulse 93 93 Oximetry 03/19/18 03/19/18 03/19/18 11:23 11:27 12:33 Temperature 97.9 F Pulse Rate 77 Respiratory 20 15 20 Rate Blood Pressure 132/56 (mmHg) O2 Sat by Pulse 94 Oximetry 03/19/18 13:33 Temperature Pulse Rate Respiratory 20 Rate Blood Pressure (mmHg) O2 Sat by Pulse Oximetry Oxygen Devices in Use Now: Nasal Cannula Appearance: 57 yo F in nAD, AAOx3 Eyes: No Scleral Icterus, PERRLA Ears/Nose/Mouth/Throat: NL Teeth, Lips, Gums, Mucous Membranes Moist Neck: NL Appearance and Movements; NL JVP, Trachea Midline Respiratory: Symmetrical Chest Expansion and Respiratory Effort, - - LL rhonchi Cardiovascular: NL Sounds; No Murmurs; No JVD, RRR Abdominal: NL Sounds; No Tenderness; No Distention Lymphatic: No Cervical Adenopathy Extremities: No Edema, No Clubbing, Cyanosis, - - L BKA Skin: No Rash or Ulcers, No Nodules or Sclerosis Neurological: Alert and Oriented x 3, NL Muscle Strength and Tone Result Diagrams: 03/18/18 05:10 03/18/18 05:10 Assess/Plan/Problems-Billing Assessment: Ms. Galarza is a 57 yo female with PMH significant for DM, PVD, CKD, CVA, HTN, HLD, RLS, left subclavian stenosis (s/p stenting), CHF, COPD, anemia and neuropathy who presented to the emergency room with complaints of n/v, SOB and diarrhea - Patient Problems (1) Headache Comment: pt stated that "it feels like a migraine headache", but she has not had one in a long time. Apprecite Dr. Galdamez's consult. Pt's headache is improving. Nausea resolved (2) Systolic CHF Comment: No evidence of CHF today. Bronchospasm improved - 09/26 Echo, EF 35-40% - Continue daily weights, strict I+O's, spironolactone, and torsemide (3) Aspiration pneumonia Comment: cont doxy. Pt does not tolerate PO doxy . As per Dr. Damon pt will need a total of 5 days of antibiotic tx. Last dose today Pt clinically has aspiration PNA, identified on repeat CXR on 03/15/18 (4) Gastroparesis diabeticorum Comment: Pt has h/o gastroparesis, nausea resolved with compazine (5) Uncontrolled type II diabetes mellitus Comment: Had been on insulin pump, now out of cartridges. cont ISS. due to steroid tx, nos with uncontrolled sugars. will increase Lantus (6) Anemia Comment: -drop in Hb at admission suspect due to hemodilution, no c/o melena or BRBPR stool guaiac pending - Chronic, appears to be near her baseline, due to CKD - Will continue to monitor (7) CKD (chronic kidney disease) stage 3, GFR 30-59 ml/min Comment: - Creatinine near baseline (8) Abnormal urinalysis Comment: multi drug resistant E coli pyelo 1 month ago. Cx negative renal US unremarkable (9) HTN (hypertension) Comment: controlled. increased coreg to 3.125 mg BID (10) Bronchospasm Comment: resolving on Solu Medrol. Will titrate down the dose (11) Constipation Comment: No BM since admission. Pt refuses to take meds for it. Passing flatus. abd exam benign. ambulation encouraged (12) DVT prophylaxis Comment: HSQ Status and Disposition: inpatient
[2018-03-19] MEDS: Heparin VIAL(*) 5000 UNITS/ML VIAL (FIVE THOUSAND) SUBCUT SCH ×3 (15:42→20:47)
[2018-03-19] MEDS: Gabapentin CAP(*) 300 MG PO SCH (17:00)
[2018-03-19] MEDS ORDERED: methylPREDNISolone SOD 40 MG* 1 ML VIAL IV SCH (20:00)
[2018-03-19] MEDS: Pramipexole TAB* 0.5 MG PO SCH (20:45)
[2018-03-19] MEDS: Acetaminophen TAB* 325 MG PO PRN (21:45)
[2018-03-20] MEDS: Insulin LISPRO* 1 UNITS UNIT SUBCUT SCH ×5 (00:33→14:05)
[2018-03-20] MEDS ORDERED: Alteplase (CATHFLO)* 2 MG VIAL IV ONE (00:37)
[2018-03-20] MEDS: Heparin VIAL(*) 5000 UNITS/ML VIAL (FIVE THOUSAND) SUBCUT SCH ×3 (06:08→22:35)
[2018-03-20] MEDS ORDERED: Insulin LISPRO* 1 UNITS UNIT SUBCUT ONE ×3 (07:19→14:00)
[2018-03-20] MEDS ORDERED: Dextrose 50% Syringe 50 ML* 25 GM/50 ML SYRINGE IV PUSH PRN ×3 (07:19→14:00)
[2018-03-20] MEDS ORDERED: Insulin GLARGINE(*) 1 UNITS UNIT SUBCUT SCH ×2 (08:00→11:00)
[2018-03-20] MEDS: Mometasone/Formoter 100/5 MDI INH SCH ×2 (08:13→23:56)
[2018-03-20] MEDS: Torsemide TAB* 20 MG PO SCH (08:21)
[2018-03-20] MEDS: Carvedilol TAB* 3.125 MG PO SCH ×2 (08:22→19:51)
[2018-03-20] MEDS: Atorvastatin* 20 MG TAB PO SCH (08:22)
[2018-03-20] MEDS: Aspirin EC TAB* 81 MG TAB.EC PO SCH (08:22)
[2018-03-20] MEDS: Docusate CAP* 100 MG PO SCH ×2 (08:22→19:51)
[2018-03-20] MEDS: Spironolactone TAB* 25 MG PO SCH (08:22)
[2018-03-20 09:02] LABS: EGFR Non-African American 26.2 (>60)
[2018-03-20] MEDS ORDERED: Scopolamine PATCH Remove* 1 NOTE MISC PATCH OFF SCH (10:00)
[2018-03-20] MEDS: Valsartan TAB* 40 MG PO SCH (10:12)
[2018-03-20] MEDS: Scopolamine 1.5 mg* PATCH TRANSDERM SCH (10:13)
[2018-03-20] MEDS: Acetaminophen TAB* 325 MG PO PRN ×2 (11:02→19:51)
[2018-03-20] MEDS: Morphine VIAL* 4 MG/ML VIAL (1 ml vial) IV PRN ×2 (11:03→19:52)
[2018-03-20] MEDS ORDERED: Insulin GLARGINE(*) 1 UNITS UNIT SUBCUT ONE (11:28)
[2018-03-20] MEDS ORDERED: Insulin GLARGINE(*) 1 UNITS UNIT ONE (11:59)
--- NOTE | 2018-03-20 13:53 | PN ---
Subjective Date of Service: 03/20/18 Interval History: Pt feels much better. eating, headache is resolving. Walked today. Still constipated, denies abd pain. Refuses laxatives, but took prune juice today. Wants to go home, but her BG had been >500 today. Pt's will bring cartridges for insulin pump today Objective Active Medications: Acetaminophen (Tylenol Tab*) 650 mg PO Q4H PRN PRN Reason: FEVER/PAIN Last Admin: 03/20/18 11:02 Dose: 650 mg Albuterol/Ipratropium (Duoneb (Albuterol 2.5 Mg/Ipratropium 0.5 Mg)) 1 neb INH Q4H PRN PRN Reason: WHEEZING Aspirin (Aspirin Ec Tab*) 81 mg PO QAM [facility] Last Admin: 03/20/18 08:22 Dose: 81 mg Atorvastatin Calcium (Lipitor*) 20 mg PO DAILY [facility] Last Admin: 03/20/18 08:22 Dose: 20 mg Carvedilol (Coreg Tab*) 3.125 mg PO BID [facility] Last Admin: 03/20/18 08:22 Dose: 3.125 mg Dextrose (D50w Syringe 50 Ml*) 12.5 gm IV PUSH .FOR FS < 60 - SS PRN PRN Reason: FS < 60 Dextrose (D50w Syringe 50 Ml*) 12.5 gm IV PUSH .FOR FS < 60 - SS PRN PRN Reason: FS < 60 Dextrose (D50w Syringe 50 Ml*) 12.5 gm IV PUSH .FOR FS < 60 - SS PRN PRN Reason: FS < 60 Diphenhydramine HCl (Benadryl Iv*) 25 mg IV Q6H PRN PRN Reason: PRURITIS Last Admin: 03/18/18 12:07 Dose: 25 mg Docusate Sodium (Colace Cap*) 100 mg PO BID [facility] Last Admin: 03/20/18 08:22 Dose: 100 mg Gabapentin (Neurontin Cap(*)) 1,800 mg PO QPM [facility] Last Admin: 03/19/18 17:00 Dose: 1,800 mg Heparin Sodium (Porcine) (Heparin Vial(*)) 5,000 units SUBCUT Q8HR [facility] Last Admin: 03/20/18 06:08 Dose: 5,000 units Heparin Sodium (Porcine) (Heparin Flush Port (Ivad)) 5 ml FLUSH DAILY [facility] PRN Reason: Protocol Last Admin: 03/20/18 11:03 Dose: 5 ml Hydralazine HCl (Apresoline Iv*) 5 mg IV SLOW PU Q6H PRN PRN Reason: SBP>180 Last Admin: 03/17/18 02:14 Dose: 5 mg Insulin Glargine (Lantus(*)) 40 units SUBCUT Q24H [facility] Last Admin: 03/20/18 08:20 Dose: 40 unit Insulin Human Lispro (Humalog*) 0 units SUBCUT Q4H [facility] PRN Reason: Protocol Last Admin: 03/20/18 11:30 Dose: Not Given Magnesium Hydroxide (Milk Of Magnesia Liq*) 30 ml PO Q4H PRN PRN Reason: CONSTIPATION Mometasone Furoate/Formoterol Fumar (Dulera 100/5 Mdi*) 2 puff INH BID [facility] Last Admin: 03/20/18 08:13 Dose: 2 puff Morphine Sulfate (Morphine Vial*) 1 mg IV Q4H PRN PRN Reason: PAIN Last Admin: 03/20/18 11:03 Dose: 1 mg Morphine Sulfate (Morphine Vial*) 1 mg IV Q4H PRN PRN Reason: PAIN Ondansetron HCl (Zofran 40 Mg Vial*) 4 mg IV Q6H PRN PRN Reason: NAUSEA Last Admin: 03/18/18 17:24 Dose: 4 mg Pharmacy Profile Note (Scopolamine Patch Remove*) 1 note PATCH OFF Q72H [facility] Last Admin: 03/20/18 10:13 Dose: Not Given Pramipexole Dihydrochloride (Mirapex Tab*) 0.5 mg PO BEDTIME [facility] Last Admin: 03/19/18 20:45 Dose: 0.5 mg Prochlorperazine Edisylate (Compazine Inj*) 10 mg IV Q6H PRN PRN Reason: NAUSEA/VOMITING Last Admin: 03/18/18 12:08 Dose: 10 mg Scopolamine (Transderm-Scop 1.5 Mg Patch*) 1 patch TRANSDERM Q72H [facility] Last Admin: 03/20/18 10:13 Dose: Not Given Spironolactone (Aldactone Tab*) 12.5 mg PO DAILY [facility] Last Admin: 06/10/18 08:22 Dose: 12.5 mg Torsemide (Demadex*) 40 mg PO QAM [facility] Last Admin: 03/20/18 08:21 Dose: 40 mg Valsartan (Diovan Tab*) 40 mg PO DAILY [facility] Last Admin: 03/20/18 10:12 Dose: 40 mg Vital Signs - 8 hr 03/20/18 03/20/18 03/20/18 07:59 08:00 08:15 Temperature 97.8 F Pulse Rate 83 Respiratory 18 18 14 Rate Blood Pressure 138/61 (mmHg) O2 Sat by Pulse 92 98 98 Oximetry 03/20/18 03/20/18 03/20/18 11:03 11:15 12:24 Temperature 97.7 F Pulse Rate 83 Respiratory 18 18 18 Rate Blood Pressure 162/89 (mmHg) O2 Sat by Pulse 93 Oximetry Oxygen Devices in Use Now: None Appearance: 57 yo F in nAD, aAOx3 Eyes: No Scleral Icterus, PERRLA Ears/Nose/Mouth/Throat: NL Teeth, Lips, Gums, Mucous Membranes Moist Neck: NL Appearance and Movements; NL JVP, Trachea Midline Respiratory: Symmetrical Chest Expansion and Respiratory Effort, - - fine bibasiliar crackles Cardiovascular: NL Sounds; No Murmurs; No JVD, RRR Abdominal: NL Sounds; No Tenderness; No Distention Lymphatic: No Cervical Adenopathy Extremities: No Edema, No Clubbing, Cyanosis, - - L BKA Skin: No Rash or Ulcers, No Nodules or Sclerosis Neurological: Alert and Oriented x 3, NL Muscle Strength and Tone Result Diagrams: 03/18/18 05:10 03/20/18 08:20 Assess/Plan/Problems-Billing Assessment: Ms. Galarza is a 57 yo female with PMH significant for DM, PVD, CKD, CVA, HTN, HLD, RLS, left subclavian stenosis (s/p stenting), CHF, COPD, anemia and neuropathy who presented to the emergency room with complaints of n/v, SOB and diarrhea - Patient Problems (1) Headache Comment: Appreciate Dr. Galdamez's consult. Pt's headache is improving. Nausea resolved (2) Systolic CHF Comment: No evidence of CHF today. Bronchospasm improved, due to hyperglycemia will stop steroids - 09/26 Echo, EF 35-40% - Continue daily weights, strict I+O's, spironolactone, and torsemide (3) Aspiration pneumonia Comment: cont doxy. Pt does not tolerate PO doxy . As per Dr. Damon pt will need a total of 5 days of antibiotic tx. Last dose 03/19/18 Pt clinically has aspiration PNA, identified on repeat CXR on 03/15/18 (4) Uncontrolled type II diabetes mellitus Comment: Had been on insulin pump, now out of cartridges. cont ISS. due to steroid tx, now with uncontrolled sugars. will increase Lantus, cont BG' s every 4 H. to bring insulin pump equipment from home today (5) Gastroparesis diabeticorum Comment: Pt has h/o gastroparesis, nausea resolved with compazine will d/c scopolamine patch (6) Anemia Comment: -drop in Hb at admission suspect due to hemodilution, no c/o melena or BRBPR stool guaiac pending - Chronic, appears to be near her baseline, due to CKD - Will continue to monitor (7) CKD (chronic kidney disease) stage 3, GFR 30-59 ml/min Comment: - Creatinine near baseline , but increased today. cont to monitor (8) Abnormal urinalysis Comment: multi drug resistant E coli pyelo 1 month ago. Cx negative renal US unremarkable (9) HTN (hypertension) Comment: controlled. increased coreg to 3.125 mg BID (10) Bronchospasm Comment: resolved. will d/c Solu Medrol due to uncontrolled DM (11) Constipation Comment: No BM since admission. Pt refuses to take meds for it. Passing flatus. abd exam benign. ambulation encouraged (12) DVT prophylaxis Comment: HSQ Status and Disposition: inpatient
[2018-03-20] MEDS: Gabapentin CAP(*) 300 MG PO SCH (17:25)
[2018-03-20] MEDS: Pramipexole TAB* 0.5 MG PO SCH (19:50)
[2018-03-21] MEDS: PROCHLORPERAZINE INJ 5 MG/ML 2 ML VIAL IV PRN (01:05)
[2018-03-21] MEDS: Morphine VIAL* 4 MG/ML VIAL (1 ml vial) IV PRN (01:12)
[2018-03-21] MEDS: Heparin VIAL(*) 5000 UNITS/ML VIAL (FIVE THOUSAND) SUBCUT SCH (05:54)
[2018-03-21 06:33] LABS: Hematocrit 25 % (35-47); Hemoglobin 8.1 g/dl (12.0-16.0); Mean Corpuscular HGB Conc 32 g/dl (31-36); Mean Corpuscular Hemoglobin 28 pg (27-31); Mean Corpuscular Volume 87 fL (80-97); Mean Platelet Volume 8.8 um3 (7.4-10.4); Platelet Count 304 10^3/ul (150-450); Red Blood Count 2.92 10^6/ul (4.0-5.4); Red Cell Distribution Width 19 % (10.5-15); White Blood Count 9.2 10^3/ul (3.5-10.8)
[2018-03-21 06:48] LABS: EGFR Non-African American 37.7 (>60)
[2018-03-21] MEDS: Mometasone/Formoter 100/5 MDI INH SCH (07:28)
[2018-03-21] MEDS: Atorvastatin* 20 MG TAB PO SCH (08:38)
[2018-03-21] MEDS: Torsemide TAB* 20 MG PO SCH (08:38)
[2018-03-21] MEDS: Carvedilol TAB* 3.125 MG PO SCH (08:38)
[2018-03-21] MEDS: Valsartan TAB* 40 MG PO SCH (08:38)
[2018-03-21] MEDS: Spironolactone TAB* 25 MG PO SCH (08:38)
[2018-03-21] MEDS: Docusate CAP* 100 MG PO SCH (08:39)
[2018-03-21] MEDS: Aspirin EC TAB* 81 MG TAB.EC PO SCH (08:39)
[2018-03-21 08:40] VITALS: BP 151/61
--- NOTE | 2018-03-21 09:17 | PN ---
Progress Note - Progress Note Date of Service: 03/21/18 SOAP: Subjective: CC: nausea HPI: 57 year old woman with cough and CHF, no with nausea and anorexia. Headache almost gone, no fever, no nausea or abd pain. Breathing is better, cough nearly gone. Objective: Vital Signs Temp 37.0 C 03/21/18 07:47 Pulse 78 03/21/18 07:47 Resp 20 03/21/18 07:47 BP 151/61 03/21/18 07:47 Pulse Ox 93 03/21/18 07:47 Intake & Output 03/20/18 03/21/18 03/21/18 18:59 06:59 18:59 Intake Total 1520 400 Output Total 1500 600 Balance 20 -200 Weight 149 lb 12.8 oz Intake: IV Fluids 0 ABX - DOXYCYCLINE 0 NS (0.9%) 0 Oral 1520 400 Output: Urine 1500 600 Other: # Bowel Movements 0 Gen:awake, no distress HEENT: no thrush Heart:RRR no murmur Lungs:expir wheeze BL Abd:decr BS soft non tender Skin: no rash Laboratory Results - last 24 hr 03/20/18 03/20/18 03/20/18 10:18 10:36 13:56 WBC RBC Hgb Hct MCV MCH MCHC RDW Plt Count MPV Sodium Potassium Chloride Carbon Dioxide Anion Gap BUN Creatinine Est GFR ( Amer) Est GFR (Non-Af Amer) BUN/Creatinine Ratio Glucose 512 H* POC Glucose (mg/dL) > 444 H* 421 H* Calcium 03/20/18 03/20/18 03/20/18 16:00 17:24 22:09 WBC RBC Hgb Hct MCV MCH MCHC RDW Plt Count MPV Sodium Potassium Chloride Carbon Dioxide Anion Gap BUN Creatinine Est GFR ( Amer) Est GFR (Non-Af Amer) BUN/Creatinine Ratio Glucose POC Glucose (mg/dL) 239 H 115 H 113 H Calcium 03/21/18 03/21/18 03/21/18 02:33 05:47 06:10 WBC RBC Hgb Hct MCV MCH MCHC RDW Plt Count MPV Sodium 138 L D Potassium 3.9 Chloride 106 Carbon Dioxide 27 Anion Gap 5 BUN 82 H Creatinine 1.44 H Est GFR ( Amer) 48.4 Est GFR (Non-Af Amer) 37.7 BUN/Creatinine Ratio 56.9 H Glucose 105 H POC Glucose (mg/dL) 123 H 99 Calcium 8.3 L 03/21/18 06:10 WBC 9.2 RBC 2.92 L Hgb 8.1 L Hct 25 L MCV 87 MCH 28 MCHC 32 RDW 19 H Plt Count 304 MPV 8.8 Sodium Potassium Chloride Carbon Dioxide Anion Gap BUN Creatinine Est GFR ( Amer) Est GFR (Non-Af Amer) BUN/Creatinine Ratio Glucose POC Glucose (mg/dL) Calcium Assessment: 1. acute hypoxemic resp failure, present on admission, due to CHF, resolved 2. fever with cough, initially treated as pneumonia, resolved 3. cephalosporin allergy Plan: 1. antibiotic completed; she will call office if return of fever or worsening cough
--- NOTE | 2018-03-22 16:08 | DS ---
DISCHARGE SUMMARY: DATE OF ADMISSION: 03/14/18 DATE OF DISCHARGE: 03/21/18 PRIMARY CARE PROVIDER: Dr. Valdes. MY ATTENDING WHILE IN THE HOSPITAL: Dr. Jolanta Mckinley.* (DICTATED BY OSCAR ERWIN) CONSULTING INFECTIOUS DISEASE SPECIALIST: Dr. Brent Damon. PRIMARY DISCHARGE DIAGNOSES: 1. Aspiration pneumonia. 2. Bronchospasm. 3. Acute systolic heart failure exacerbation. 4. Uncontrolled diabetes mellitus type 2. SECONDARY DISCHARGE DIAGNOSES: 1. History of carotid artery stenosis. 2. Peripheral vascular disease. 3. Chronic kidney disease, stage 3. 4. Hypertension. 5. Hyperlipidemia. 6. Subclavian stenosis. 7. History of left leg osteomyelitis, status post below knee amputation. 8. Restless legs syndrome. 9. History of Clostridium difficile diarrhea. 10. History of peripheral neuropathy. STUDIES DONE WHILE IN THE HOSPITAL: Electrocardiogram 03/14/18 shows a paced rhythm. No ST segment abnormalities. Early repolarization V2, V3. Left bundle branch pattern. T-wave inversions in III, aVF. Rate of 86, QTc of 476. No signs of hypertrophy or enlargement. No other abnormalities consistent with previous exam. Chest x-ray from 03/14/18 read as cardiomegaly with interstitial edema consistent with CHF. This appears to be slightly progressive compared to previous exam on 01/14/18. Renal ultrasound from read as negative for hydronephrosis, normal renal ultrasound. Chest x-ray from 03/15/18 read as patchy consolidation of the left lung base suspicious for pneumonia in the clinical context. Chest x-ray from 03/16/18 shows pulmonary interstitial edema. MEDICATIONS AT DISCHARGE: 1. Gabapentin 1800 to 2400 mg p.o. q. p.m. 2. Dulera 100/5 two puffs inhalation b.i.d. 3. Aspirin 81 mg p.o. daily. 4. Pramipexole 0.5 mg p.o. at bedtime. 5. Lispro insulin via pump. 6. Lipitor 20 mg p.o. daily. 7. Torsemide 40 mg p.o. q.a.m. 8. Zofran 4 mg p.o. q. 6 hours as needed. 9. Spironolactone 12.5 mg p.o. daily. 10. Entresto one tab p.o. b.i.d. 11. Tylenol 650 mg p.o. q. 4 hours as needed. 12. DuoNeb 1 neb inhalation q. 4 hours as needed. 13. Carvedilol 3.125 mg p.o. b.i.d. 14. Docusate 100 mg p.o. b.i.d. 15. Heparin port flush. 16. Metolazone 5 mg daily as needed. New medications at discharge: 1. DuoNeb. 2. Carvedilol. 3. Docusate. Medications discontinued at discharge: Carvedilol 3.125 mg half tab daily. HOSPITAL COURSE: This is a brief summary of the patient's presentation. For more details, please see the history and physical from Dr. Arleen Pacheco on 01/26. In brief, patient is a 57-year-old female with past medical history significant for the above, who is very well known to this hospital and this author for multiple previous admissions, mainly for complications of diabetes, who came in with nausea, vomiting, diarrhea for 4 days with fevers up to 103 degrees. She was hypoxemic and used her home oxygen and also having 4 to 5 bowel movements on the day she came in. Patient was recently treated for UTI. Patient was suspected to have aspiration due to frequent vomiting. Patient had no white blood cell count but an elevated ESR and CRP. Patient's creatinine was at her baseline, as was her anemia. Patient's blood sugar was 72, initially low. Patient was started initially on Zosyn and vancomycin p.o. Patient's diarrhea stopped on the second day of her admission and her C. diff test was canceled as she did not have stool to test as well as her p.o. vancomycin being stopped. Patient improved with her nausea overnight. Patient developed a headache, which she described as migrainous, consistent with previous migraine headaches. Patient was switched to Levaquin and Flagyl. Patient was managed on her insulin pump as well as with Reglan IV. Patient was seen in consultation by Dr. Brent Damon, who suggested stopping Levaquin and switching to cefepime and azithromycin. Patient was found to have a CEPHALOSPORIN allergy and switched to doxycycline. Patient became significantly hypertensive and more short of breath. Patient's chest x-ray was read as above showing interstitial edema. The patient was diuresed with IV Lasix as well as her home diuretics. Patient's headache continued. Patient ran out of insulin cartridges for her insulin pump. Patient was started on IV steroids due to the continued wheezing and for bronchospasm with a plan for a short taper. Patient was seen in consultation by Dr. Cedrick Galdamez of Neurology , who suggested Benadryl and Compazine. Recommended against triptans or other vasoconstrictive agents. There was no need for cranial imaging. Patient's headache began to improve as well as her nausea and shortness of breath. The patient received 5 total days of antibiotics and improved greatly; however, on the steroids, patient's blood sugars went up as high as 562. Patient was able to be get insulin cartridges from home and this was able to control her blood sugar after the steroids were stopped. Patient improved and had no complaints on the morning of 03/21/18 after finishing her doxycycline. The patient's blood sugars were controlled, patient's blood pressure, which had been significantly elevated, was slightly hypertensive on admission. Patient had her Entresto held while in the hospital and had her Coreg dose doubled as well as her valsartan dose doubled. Patient was instructed to resume on her Entresto dose at home as well as her carvedilol. PHYSICAL EXAMINATION ON THE DAY OF DISCHARGE: General: Patient is a 57-year- old female who appears her stated age and sitting comfortably in bed, in no acute distress. Vital Signs: At the time of discharge, temperature 98.6, pulse rate 78, respiratory rate 20, oxygen saturation 93% on room air, blood pressure 151/61. HEENT: Head normocephalic, atraumatic. Sclerae anicteric. No conjunctival injection. Nasal mucosa moist. Oral mucosa moist. No oropharyngeal erythema, discharge, or exudate. Neck: Supple, nontender, no lymphadenopathy. No carotid bruit auscultated. No JVD. Cardiac: Regular rate and rhythm. No clicks, murmurs, gallops, rubs. Pulses 2+ in bilateral dorsalis pedis, posterior tibialis, and radial areas on right side and 2+ in the popliteal tibial area on the left side. No lower extremity edema noted. Respiratory: Slight expiratory wheezes, which improved with coughing. Abdomen : Soft, nontender, nondistended. Bowel sounds present, normoactive in all 4 quadrants. No hepatosplenomegaly. No abdominal bruits auscultated. Genitourinary: No suprapubic or CVA tenderness. Skin: Clean, dry, and intact. No rash. Neuro: Cranial nerves II through XII intact. Baseline neuropathy in distal extremities. No other focal deficits. Slight esotropia of the left eye. Psychiatric: Pleasant, cooperative. LABORATORY DATA ON THE DAY OF DISCHARGE: White blood cell count is 9.2, hemoglobin 8.1, platelet count 304. Sodium 138, potassium 3.9, chloride 106, carbon dioxide 27, anion gap 5, BUN 82, creatinine 1.14, glucose 105, calcium 8.3. DISCHARGE PLAN: Patient will be discharged to home. Patient has finished her antibiotics. Patient has been instructed to take Tylenol and opioids though it has been discussed that this is not the most effective treatment for her headache but that NSAIDs and triptans are contraindicated. Patient can also take Reglan for her headaches as well as nausea. Patient was instructed to discuss with her primary care provider resuming scheduled Reglan. It is unknown why she was stopped on this given the patient had an aspiration event possibly precipitating this hospitalization. She would benefit from routine Reglan given her gastroparesis. Patient should follow up with Dr. Damon as needed. Patient should follow up with primary care provider in 1 week. Patient should continue with her insulin pump therapy and continue to follow with admin assistant if available. Patient should return the hospital for alarming symptoms such as severe shortness of breath, chest pain, intractable nausea and vomiting, or other alarming symptoms. Patient should engage in activity as tolerated, having a consistent carbohydrate diet. Patient should monitor her blood pressure closely on the first few days after her discharge and has been instructed to decrease her Coreg to her previous dose if she has symptoms of hypotension or hypotensive blood pressures, given reintroduction of Entresto. TIME SPENT: Approximately 60 minutes was spent on this discharge, 30 of which was spent [id number] with the patient obtaining history and physical and discussing treatment plan. OSCAR ERWIN [id number]/[facility] #: [id number] ABNER
== END 2018-03-21 13:05 | disposition home or self-care (01) | DRG 177 ==
LOC: ED 12:33 → MED 17:07 → OBSVTOIN 03-15 08:25
PROVIDERS: ADMIT Internal Medicine; ATTEND Hospitalist
DX: J69.0 Pneumonitis due to inhalation of food and vomit (principal); I50.21 Acute systolic (congestive) heart failure; J96.01 Acute respiratory failure with hypoxia; I13.0 Hypertensive heart and chronic kidney disease with heart failure and stage 1 through stage 4 chronic kidney disease, or unspecified chronic kidney disease; J98.01 Acute bronchospasm; I25.10 Atherosclerotic heart disease of native coronary artery without angina pectoris; N18.3 Chronic kidney disease, stage 3 (moderate); E11.22 Type 2 diabetes mellitus with diabetic chronic kidney disease; E11.65 Type 2 diabetes mellitus with hyperglycemia; I65.29 Occlusion and stenosis of unspecified carotid artery; E11.51 Type 2 diabetes mellitus with diabetic peripheral angiopathy without gangrene; E78.5 Hyperlipidemia, unspecified; R51 Headache; K59.00 Constipation, unspecified; G25.81 Restless legs syndrome; D64.9 Anemia, unspecified; Z96.41 Presence of insulin pump (external) (internal); Z89.512 Acquired absence of left leg below knee; Z95.1 Presence of aortocoronary bypass graft; Z88.1 Allergy status to other antibiotic agents; Z88.2 Allergy status to sulfonamides; Z88.8 Allergy status to other drugs, medicaments and biological substances; Z79.82 Long term (current) use of aspirin; Z79.4 Long term (current) use of insulin; Z79.899 Other long term (current) drug therapy; Z99.81 Dependence on supplemental oxygen
CPT/HCPCS: 36415; 36600; 71045; 71046; 76775; 80048; 80053; 81003; 81015; 82550; 82803; 82947; 83605; 83880; 84484; 85025; 85027; 85610; 85652; 85730; 86140; 87040; 87070; 87077; 87086; 87205; 87502; 93005; 94640; 99285; 99406; A9270-GY; G0378; J0360; J0780; J1200; J1642; J1644; J1940; J1956; J2270; J2543; J2765; J2920; J2997; J3475; J3490

== ENCOUNTER 2018-04-10 06:31 | Emergency (ER) | payer MEDICARE, MEDICAID ==
[2018-04-10] MEDS ORDERED: NS 0.9% 1000 ML*IV.FLUID IV ONE (06:49)
[2018-04-10] MEDS ORDERED: Ciprofloxacin 400MG IVPREMIX(* 400 MG/200 ML BAG IVPB ONE (07:14)
--- NOTE | 2018-04-10 07:21 | ED ---
Shortness of Breath - HPI Summary HPI Summary: Patient is a 58-year-old female with a significant PMH of type 1 diabetes, CKD III, hypoxia, recent diagnosis and treatment of C. difficile as well as pyelonephritis secondary to multi resistant Escherichia coli. She states proximally 2 days ago she began to feel ill, c/o shortness of breath, sweats, chills, fever highest at 103, cough with yellow mucus production, rhinorrhea and sinus congestion. She is been working with Dr. Saucedo for her diagnosis of pyelonephritis and her last Ertapenem dose was Wednesday (same day her symptoms began.) She endorses decreased PO intake, intermittent nausea and has not been sleeping due to her fevers and cough. She called her PCP, Dr. león, this morning who recommended she come to the ED for further evaluation. Hx of Bypass in 2009, osteomyelitis with a BKA in 2017. She currently has a port, but has not started dialysis. She has not been using her oxygen at home's, stating "I don't like it." On arrival, I have offered a Ventolin treatment, for which she declines. Vital signs on arrival are 99.3, HR 83, Resp 18, 95% on room air and 168/79. She states her last dose of Tylenol was 4 hours WELDER TACK. Patient is an every day smoker. - History of Current Complaint Chief Complaint: EDFever Time Seen by Provider: 04/10/18 06:42 Hx Obtained From: Patient Onset/Duration: Gradual Onset Timing: Constant Current Severity: Moderate Aggrevating Factors: Movement Associated Signs & Symptoms: Cough (Productive) - yellow sputum - Risk Factors Pulmonary Embolism: Negative, Smoking Cardiac: Prior MD Pseudomonas: Chronic Lung Disease - Allergy/Home Medications Allergies/Adverse Reactions: Allergies Allergy/AdvReac Type Severity Reaction Status Date / Time bee venom protein (honey bee) Allergy Anaphylatic Verified 04/10/18 06:36 Shock Cephalosporins Allergy Shortness Verified 04/10/18 06:36 of Breath codeine Allergy GI Upset Verified 04/10/18 06:36 diphenhydramine Allergy Difficulty Verified 04/10/18 06:36 [From Benadryl] Breathing Penicillins Allergy Hives Verified 04/10/18 06:36 Sulfa (Sulfonamide Allergy Hives Verified 04/10/18 06:36 Antibiotics) PMH/Surg Hx/FS Hx/Imm Hx Previously Healthy: No - see below Endocrine/Hematology History: Reports: Hx Anticoagulant Therapy, Hx Blood Transfusions, Hx Diabetes, Hx Thyroid Disease - Goiter, Hx Anemia, Other Endocrine/Hematological Disorders - anemia Denies: Hx Systemic Lupus Erythematosus Cardiovascular History: Reports: Hx Angioplasty, Hx Auto Implanted Cardiovert Defib, Hx Cardiac Arrest, Hx Congestive Heart Failure, Hx Coronary Artery Disease, Hx Hypercholesterolemia, Hx Hypertension, Hx Myocardial Infarction, Hx Pacemaker/ICD - 2015, Hx Peripheral Vascular Disease, Hx Valvular Heart Disease , Other Cardiovascular Problems/Disorders - triple bypass in [place], hyperlipidemia, ICD, carotid endarterectomy Denies: Hx Angina Respiratory History: Reports: Hx Asthma, Hx Chronic Bronchitis, Hx Chronic Obstructive Pulmonary Disease (COPD), Hx Pneumonia, Hx Pulmonary Edema, Hx Pulmonary Embolism, Hx Seasonal Allergies, Hx Sleep Apnea, Other Respiratory Problems/Disorders - respiratory failure, uses home oxygen GI History: Reports: Hx Gall Bladder Disease Denies: Hx Ulcer, Other GI Disorders History: Reports: Hx Chronic Renal Failure, Other Problems/Disorders - recent UTI Denies: Hx Dialysis, Hx Renal Disease Musculoskeletal History: Reports: Hx Arthritis, Hx Back Problems, Hx Fibromyalgia, Hx Scoliosis, Other Musculoskeletal History - left below knee amputation, restless leg syndrome, osteomyelitis Denies: Hx Rheumatoid Arthritis, Hx Osteoporosis Sensory History: Reports: Hx Cataracts - no surgery needed yet, Hx Contacts or Glasses, Hx Vision Problem, Hx Hearing Problem - R ear numbness and decreased hearing r/t TIA per pt Denies: Hx Deafness, Hx Hearing Aid Opthamlomology History: Reports: Hx Cataracts - no surgery needed yet, Hx Contacts or Glasses, Hx Vision Problem Neurological History: Reports: Hx Migraine, Hx Nerve Disease - Diabetic Peripheral Neuropathy, Hx Seizures - reports last one 30 yrs ago, Hx Transient Ischemic Attacks (TIA), Other Neuro Impairments/Disorders - peripheral neuropathy Denies: Hx Dementia Psychiatric History: Reports: Hx Anxiety, Hx Depression Denies: Hx Panic Disorder - Cancer History Hx Chemotherapy: No - Surgical History Surgery Procedure, Year, and Place: CARDIAC STENTS(4 PROMUS AND 1 VISIPRO PLACED AT [facility] [place] ONLY DUE TO CONDITIONAL STATUS OF MAX SPAT. GRAD. 720), TRIPLE BYPASS, BILATERAL CAROTID ENDARTERECTOMY ,LAP ADDY,HYSTERECTOMY,LEFT GREAT TOE AMPUTATION,APPY, T&A ,STERNAL WIRES ,LUMBAR SPINE FUSION,CSP FUSION , C SECTION,BACK SURGERY-LASER SURGERY. defib,port, left below knee amputation jul 2017 Hx Anesthesia Reactions: No - Immunization History Date of Tetanus Vaccine: 2015 Date of Influenza Vaccine: 2015 Hx Pertussis Vaccination: Yes Immunizations Up to Date: Yes Infectious Disease History: No Infectious Disease History: Reports: Hx Clostridium Difficile, Hx of Known/ Suspected MRSA Denies: Hx Hepatitis, Hx Human Immunodeficiency Virus (HIV), Hx Shingles, Hx Tuberculosis, Hx Known/Suspected VRE, Hx Known/Suspected VRSA, History Other Infectious Disease, Traveled Outside the [place] in Last 30 Days - Family History Known Family History: Positive: Unknown - Pt is adopted and does not know her FHx - Social History Occupation: Unemployed, Disabled Lives: Alone Alcohol Use: None Hx Substance Use: No Substance Use Type: Reports: None Hx Tobacco Use: Yes Smoking Status (MU): Light Every Day Tobacco Smoker Type: Cigarettes Amount Used/How Often: patient reports smoking 3 cigarettes per day Length of Time of Smoking/Using Tobacco: 30 years Have You Smoked in the Last Year: Yes Review of Systems Positive: Fever, Chills, Fatigue, Skin Diaphoresis Negative: Photophobia, Blurred Vision, Diplopia Positive: Sore Throat, Ear Ache, Nasal Discharge. Negative: Dental Pain Positive: Chest Pain - d/t cough. Negative: Palpitations Positive: Shortness Of Breath, Cough Positive: Abdominal Pain - secondary to cough Genitourinary: Negative Positive: no symptoms reported, see HPI - we will. Negative: burning, dysuria, discharge, frequency, flank pain Negative: Arthralgia, Myalgia Negative: Rash, Bruising - will be Positive: Weakness. Negative: Paresthesia, Numbness, Syncope Negative: Anxious, Depressed All Other Systems Reviewed And Are Negative: Yes Physical Exam Triage Information Reviewed: Yes Vital Signs On Initial Exam: Initial Vitals Temp Pulse Resp BP Pulse Ox 99.3 F 83 18 168/79 95 04/10/18 06:33 04/10/18 06:33 04/10/18 06:33 04/10/18 06:33 04/10/18 06:33 Vital Signs Reviewed: Yes Appearance: Positive: Well-Appearing, Well-Nourished Skin: Positive: Dry, Pale Head/Face: Positive: Normal Head/Face Inspection ENT: Positive: Nasal congestion, Nasal drainage, Sinus tenderness, Uvula midline. Negative: Dental tenderness Neck: Positive: Tenderness @ - throughout anterior over cervical LN Respiratory/Lung Sounds: Positive: Rales, Rhonchi, Wheezes Cardiovascular: Positive: RRR Musculoskeletal: Positive: Normal - at baseline Neurological: Positive: Speech Normal Psychiatric: Positive: Normal, Affect/Mood Appropriate AVPU Assessment: Alert Diagnostics - Vital Signs Vital Signs Temp Pulse Resp BP Pulse Ox 04/10/18 06:33 99.3 F 83 18 168/79 95 - Laboratory Result Diagrams: 04/10/18 07:22 04/10/18 07:22 Lab Statement: Any lab studies that have been ordered have been reviewed, and results considered in the medical decision making process. Course/Dx - Course Course Of Treatment: During the course of treatment, sepsis protocol initiated based on past medical history, chief complaint, diaphoresis and comorbidities. Pharmacy called with a concern for vancomycin allergy. She has been previously placed on vancomycin over the past several months with no notable allergic reactions. This was removed from her allergy list. Clindamycin and vancomycin ordered as sepsis protocol for unknown origin. Vital signs 99.3, 83, 18, 95% on room air, 168/79. Initiated fluids at 175 mL/hour due to CHF. Creatinine clearance history of diabetes type 1 on pump. EKG reveals paced rhythm. CXR reveals, per radiologist, improved interstitial lung findings. Provider, Malou Turner PA-C reviewed this xray and agrees with findings. She is given tylenol 650mg on arrival for diffuse pain. Unable to provide a sputum sample. VS remain stable. O2 drops to 83 while sleeping and 2L O2 placed. Patient states she does not use at home since the cords are bothering. BNP consistent with previous draws at 853, ESR 120, WBC 11.2 and CRP 98. Lactic .7. Discussed results with patient and this is likely viral d/t no evidence of obvious bacterial infection. Patient is requesting discharge. I have discussed the case with Dr. Ortiz. Placed a phone call to PCP, Dr. León at 10:20a but no answer. Patient again requesting discharge. I have discussed at length with patient strict return precautions she has significant comorbidities. She is agreeable to return and will follow up with Dr. león in 1-2 days. I feel she is safe discharge as labs, xray and VS stable. She will be discharged with a dx of COPD exacerbation and fever augmented by underlying progressive CHF. - Diagnoses Differential Diagnosis/HQI/PQRI: Positive: Bronchitis, CHF Provider Diagnoses: CHF (congestive heart failure), Cough, COPD exacerbation, Fever - Physician Notifications Discussed Care of Patient With: Jose Luis Otriz - Agreeable to discharge if pt has good follow up Discharge - Sign-Out/Discharge Documenting (check all that apply): Discharge/Admit/Transfer - Discharge Plan Condition: Stable Disposition: HOME Patient Education Materials: Heart Failure (ED), Fever in Adults (ED) Referrals: Matilde León MD [Primary Care Provider] - Additional Instructions: Continue Tylenol 650 mg at home for any fevers, sweats, chills Please follow-up with Dr. león in 1-2 days If you develop any worsening symptoms, fevers despite Tylenol you need to return to the ED immediately [id number] Robitussin for cough Drink plenty of fluids DO NOT SMOKE - Billing Disposition and Condition Condition: STABLE Disposition: Home
[2018-04-10] MEDS ORDERED: guaiFENesin LIQ* 100 MG/5 ML UDC PO ONE (07:39)
[2018-04-10] MEDS ORDERED: Acetaminophen TAB* 325 MG PO ONE (07:39)
[2018-04-10 07:49] LABS: INR 0.98 (0.77-1.02)
[2018-04-10] MEDS ORDERED: Ondansetron ODT TAB* 4 MG SL ONE (07:49)
[2018-04-10] MEDS ORDERED: Ondansetron ODT TAB* 4 MG ONE (07:50)
[2018-04-10 08:00] LABS: EGFR Non-African American 32.5 (>60)
[2018-04-10] MEDS ORDERED: Vancomycin(*) 1,000 MG - ED ONCE IVPB ONE ×2 (08:00)
[2018-04-10] MEDS ORDERED: Vancomycin(*) 1,000 MG VIAL IVPB ONE (08:00)
[2018-04-10] MEDS ORDERED: NS 0.9% 250 ML* 250 ML IV SCH (08:00)
[2018-04-10 08:02] LABS: ABS Basophils 0.1 10^3/ul (0-0.2); ABS Eosinophils 0.2 10^3/ul (0-0.6); ABS Lymphocytes 0.7 10^3/ul (1.0-4.8); ABS Monocytes 0.6 10^3/ul (0-0.8); ABS Neutrophils 9.7 10^3/ul (1.5-7.7); ABS Nucleated RBC 0 10^3/ul; Eosinophil % 1.5 % (0-6); Hematocrit 27 % (35-47); Hemoglobin 8.1 g/dl (12.0-16.0); Lymphocyte % 6.6 % (25-47); Mean Corpuscular HGB Conc 30 g/dl (31-36); Mean Corpuscular Hemoglobin 27 pg (27-31); Mean Corpuscular Volume 88 fL (80-97); Mean Platelet Volume 8.8 um3 (7.4-10.4); Nucleated Red Blood Cells % 0; Platelet Count 319 10^3/ul (150-450); Red Blood Count 3.02 10^6/ul (4.00-5.40); Red Cell Distribution Width 19 % (10.5-15); White Blood Count 11.2 10^3/ul (3.5-10.8)
--- NOTE | 2018-04-10 09:35 | RAD ---
Indication: Sepsis. Single frontal view of the chest performed at 0655 hours was reviewed. Comparison is made with previous exam dated March 16, 2018. The heart is at the upper limits of normal size. Pacemaker leads are in place. Permanent indwelling central catheter is in place with tip at the atrial caval junction. Interstitial edema appears to BE improved since March 16, 2018. IMPRESSION: IMPROVED INTERSTITIAL EDEMA.
[2018-04-10 12:12] VITALS: BP 126/71
== END 2018-04-10 12:11 | disposition home or self-care (01) ==
LOC: ED 06:31
DX: I13.0 Hypertensive heart and chronic kidney disease with heart failure and stage 1 through stage 4 chronic kidney disease, or unspecified chronic kidney disease (principal); I50.9 Heart failure, unspecified; E10.22 Type 1 diabetes mellitus with diabetic chronic kidney disease; N18.3 Chronic kidney disease, stage 3 (moderate); J44.1 Chronic obstructive pulmonary disease with (acute) exacerbation; R50.9 Fever, unspecified; R09.02 Hypoxemia; I25.2 Old myocardial infarction; F17.210 Nicotine dependence, cigarettes, uncomplicated; Z96.41 Presence of insulin pump (external) (internal); Z79.4 Long term (current) use of insulin; Z91.19 Patient's noncompliance with other medical treatment and regimen; Z89.512 Acquired absence of left leg below knee; Z87.440 Personal history of urinary (tract) infections; Z86.14 Personal history of Methicillin resistant Staphylococcus aureus infection; Z86.19 Personal history of other infectious and parasitic diseases; Z95.5 Presence of coronary angioplasty implant and graft; Z95.1 Presence of aortocoronary bypass graft; Z88.5 Allergy status to narcotic agent; Z88.0 Allergy status to penicillin; Z88.8 Allergy status to other drugs, medicaments and biological substances; Z88.3 Allergy status to other anti-infective agents
CPT/HCPCS: 36415; 71045; 80053; 83605; 83880; 84484; 85025; 85610; 85652; 85730; 86140; 87040; 93005; 96365; 96366; 96367; 99283; A9270-GY; J0744; J1642; J3370

== ENCOUNTER 2018-04-25 11:40 | Inpatient (IN) | payer MEDICARE, MEDICAID ==
[2018-04-25] MEDS ORDERED: Nitroglycerin TAB 0.4 MG* 0.4 MG TAB SL ONE (11:47)
[2018-04-25] MEDS ORDERED: Ondansetron INJ* 2 MG/ML VIAL IV ONE (11:47)
[2018-04-25] MEDS ORDERED: Furosemide IV* 10 MG/ML 10 ML VIAL (100 MG) IV ONE (11:52)
[2018-04-25] MEDS ORDERED: nitroGLYCERIN DRIP* 25,000 MCG/250 ML BTL IV ONE (11:52)
[2018-04-25] MEDS ORDERED: Aspirin 81 mg CHEW TAB* 81 MG TAB.CHEW PO ONE (11:54)
--- NOTE | 2018-04-25 12:31 | ED ---
Shortness of Breath - HPI Summary HPI Summary: This is scribe Zuleyma Zamarripa documenting for attending Bladimir Brown M.D. Pt is a 59 y/o F BIBA who presents to the ED c/o SOB for 1 week. She was sent here by Dr. Johnson from his office. Pt also c/o N/V, RLE edema, abdominal edema, and cough. She notes 10/10 pain with breathing. She denies any ever or CP. Pt has CHF, HTN, and DM, and states Lasix stopped working for her. Pt denies taking NTG or pain medications, but takes daily ASA. PSHx gallbladder removal and left BKA. Pt is a smoker. - History of Current Complaint Chief Complaint: EDChestPainROMI Time Seen by Provider: 04/25/18 11:45 Hx Obtained From: Patient Onset/Duration: Gradual Onset, Lasting Days - 1 week, Still Present Current Severity: Severe - 10/10 Dyspnea At: Rest Associated Signs & Symptoms: Cough (Nonproductive), Edema - Allergy/Home Medications Allergies/Adverse Reactions: Allergies Allergy/AdvReac Type Severity Reaction Status Date / Time bee venom protein (honey bee) Allergy Anaphylatic Verified 04/25/18 11:57 Shock Cephalosporins Allergy Shortness Verified 04/25/18 11:57 of Breath codeine Allergy GI Upset Verified 04/25/18 11:57 diphenhydramine Allergy Difficulty Verified 04/25/18 11:57 [From Benadryl] Breathing Penicillins Allergy Hives Verified 04/25/18 11:57 Sulfa (Sulfonamide Allergy Hives Verified 04/25/18 11:57 Antibiotics) Home Medications: Home Medications Metolazone TAB* [Zaroxolyn TAB*] 5 mg PO DAILY 04/25/18 [History Confirmed 04/25] Tiotropium CAP.INH* [Spiriva CAP.INH*] 1 cap.inh INH DAILY 04/25/18 [History Confirmed 04/25/18] PMH/Surg Hx/FS Hx/Imm Hx Endocrine/Hematology History: Reports: Hx Anticoagulant Therapy, Hx Blood Transfusions, Hx Diabetes, Hx Thyroid Disease - Goiter, Hx Anemia, Other Endocrine/Hematological Disorders - anemia Denies: Hx Systemic Lupus Erythematosus Cardiovascular History: Reports: Hx Angioplasty, Hx Auto Implanted Cardiovert Defib, Hx Cardiac Arrest, Hx Congestive Heart Failure, Hx Coronary Artery Disease, Hx Hypercholesterolemia, Hx Hypertension, Hx Myocardial Infarction, Hx Pacemaker/ICD - 2015, Hx Peripheral Vascular Disease, Hx Valvular Heart Disease , Other Cardiovascular Problems/Disorders - triple bypass in [place], hyperlipidemia, ICD, carotid endarterectomy Denies: Hx Angina Respiratory History: Reports: Hx Asthma, Hx Chronic Bronchitis, Hx Chronic Obstructive Pulmonary Disease (COPD), Hx Pneumonia, Hx Pulmonary Edema, Hx Pulmonary Embolism, Hx Seasonal Allergies, Hx Sleep Apnea, Other Respiratory Problems/Disorders - respiratory failure, uses home oxygen GI History: Reports: Hx Gall Bladder Disease Denies: Hx Ulcer, Other GI Disorders History: Reports: Hx Chronic Renal Failure, Other Problems/Disorders - recent UTI Denies: Hx Dialysis, Hx Renal Disease Musculoskeletal History: Reports: Hx Arthritis, Hx Back Problems, Hx Fibromyalgia, Hx Scoliosis, Other Musculoskeletal History - left below knee amputation, restless leg syndrome, osteomyelitis Denies: Hx Rheumatoid Arthritis, Hx Osteoporosis Sensory History: Reports: Hx Cataracts - no surgery needed yet, Hx Contacts or Glasses, Hx Vision Problem, Hx Hearing Problem - R ear numbness and decreased hearing r/t TIA per pt Denies: Hx Deafness, Hx Hearing Aid Opthamlomology History: Reports: Hx Cataracts - no surgery needed yet, Hx Contacts or Glasses, Hx Vision Problem Neurological History: Reports: Hx Migraine, Hx Nerve Disease - Diabetic Peripheral Neuropathy, Hx Seizures - reports last one 30 yrs ago, Hx Transient Ischemic Attacks (TIA), Other Neuro Impairments/Disorders - peripheral neuropathy Denies: Hx Dementia Psychiatric History: Reports: Hx Anxiety, Hx Depression Denies: Hx Panic Disorder - Cancer History Hx Chemotherapy: No - Surgical History Surgery Procedure, Year, and Place: CARDIAC STENTS(4 PROMUS AND 1 VISIPRO PLACED AT [facility] [place]-1.5T ONLY DUE TO CONDITIONAL STATUS OF MAX SPAT. GRAD. 720), TRIPLE BYPASS, BILATERAL CAROTID ENDARTERECTOMY ,LAP ADDY,HYSTERECTOMY,LEFT GREAT TOE AMPUTATION,APPY, T&A ,STERNAL WIRES ,LUMBAR SPINE FUSION,CSP FUSION , C SECTION,BACK SURGERY-LASER SURGERY. defib,port, left below knee amputation jul 2017 Hx Anesthesia Reactions: No - Immunization History Date of Tetanus Vaccine: 2015 Date of Influenza Vaccine: 2015 Infectious Disease History: No Infectious Disease History: Reports: Hx Clostridium Difficile, Hx of Known/ Suspected MRSA Denies: Hx Hepatitis, Hx Human Immunodeficiency Virus (HIV), Hx Shingles, Hx Tuberculosis, Hx Known/Suspected VRE, Hx Known/Suspected VRSA, History Other Infectious Disease, Traveled Outside the [place] in Last 30 Days - Family History Known Family History: Positive: Unknown - Pt is adopted and does not know her FHx - Social History Alcohol Use: None Hx Substance Use: No Substance Use Type: Reports: None Hx Tobacco Use: Yes Smoking Status (MU): Light Every Day Tobacco Smoker Type: Cigarettes Amount Used/How Often: patient reports smoking 3 cigarettes per day Length of Time of Smoking/Using Tobacco: 30 years Have You Smoked in the Last Year: Yes Review of Systems Negative: Fever Negative: Chest Pain Positive: Shortness Of Breath, Cough Positive: Vomiting, Nausea Positive: Edema - RLE All Other Systems Reviewed And Are Negative: Yes Physical Exam - Summary Physical Exam Summary: Appearance: Chronically ill appearing, moderate pain distress Skin: warm, dry, reflects adequate perfusion Head/face: normal Eyes: EOMI, JONI ENT: normal Neck: supple, non-tender Respiratory: breath sounds present, bilateral basilar crackles. Cardiovascular: pulses symmetrical, paced rhythm on monitor. Pacer defibrillator left chest. JVD. Right LE 3-4+ pitting edema Abdomen: non-tender, soft. No edema. Right-sided surgical scar. Right chest port. Bowel Sounds: present Musculoskeletal: strength/ROM intact. Left BKA. Neuro: normal, sensory motor intact, A&Ox3 Triage Information Reviewed: Yes Vital Signs On Initial Exam: Initial Vitals Temp Pulse Resp BP Pulse Ox 98 F 77 18 181/130 100 04/25/18 11:42 04/25/18 11:42 04/25/18 11:42 04/25/18 11:42 04/25/18 11:42 Vital Signs Reviewed: Yes Diagnostics - Vital Signs Vital Signs Temp Pulse Resp BP Pulse Ox 04/25/18 11:42 98 F 77 18 181/130 100 - Laboratory Result Diagrams: 04/25/18 12:15 04/25/18 12:15 Lab Statement: Any lab studies that have been ordered have been reviewed, and results considered in the medical decision making process. - Radiology CXR Xray Interpretation: Positive (See Comments) - 11:46 MODERATE VASCULAR CONGESTION WITH WORSENING. ED physician reviewed radiology report. Radiology Interpretation Completed By: Radiologist - EKG 12:03 Cardiac Rate: NL - 90 bpm EKG Rhythm: Sinus Rhythm - Paced rhythm ST Segment: Non-Specific EKG Interpretation: Normal axis. Limited by pacing and artifact. Re-Evaluation - Re-Evaluation First Eval Re-Evaluation Time: 12:47 Change: Worse Comment: Nitro drip at 20. Pt states she feels like she is going to pass out, but her BP is still at 175/110. Course/Dx - Course Course Of Treatment: Chronically ill-appearing with multiple comorbidities and recurring chest pain, CHF exacerbations. She was sent from the frame maker's office today. She was started on nitroglycerin drip given her CHF and persistent cardiac like pain. She did get aspirin and morphine with some relief. Her vomiting stopped. She has a soft abdomen. Her one leg is grossly swollen and the other is amputated below the knee. I titrated upper nitroglycerin drip and she was or comfortable. I discussed the case with the hospitalist who knows her well and will be admitting. - Diagnoses Provider Diagnoses: Acute on chronic heart failure, Chest pain, Vomiting, Uncontrolled hypertension - Physician Notifications Discussed Care of Patient With: Jolanta Mckinley Time Discussed With Above Provider: 13:31 Instructed by Provider To: Admit As Inpatient - Dr. Mckinley accepts pt for admission. - Critical Care Time Critical Care Time: 30-74 min - 34 minutes. Critical care time is exclusive of separately billable procedures. Discharge - Sign-Out/Discharge Documenting (check all that apply): Patient Departure - Admit - Discharge Plan Condition: Stable Disposition: ADMITTED TO [facility] - Billing Disposition and Condition Condition: STABLE Disposition: Admitted to [facility]
[2018-04-25 12:39] LABS: INR 0.94 (0.77-1.02)
[2018-04-25 12:42] LABS: ABS Basophils 0.1 10^3/ul (0-0.2); ABS Eosinophils 0.1 10^3/ul (0-0.6); ABS Lymphocytes 1.1 10^3/ul (1.0-4.8); ABS Monocytes 0.3 10^3/ul (0-0.8); ABS Neutrophils 6.8 10^3/ul (1.5-7.7); ABS Nucleated RBC 0 10^3/ul; Eosinophil % 1.2 % (0-6); Hematocrit 28 % (35-47); Hemoglobin 8.6 g/dl (12.0-16.0); Lymphocyte % 13.1 % (25-47); Mean Corpuscular HGB Conc 31 g/dl (31-36); Mean Corpuscular Hemoglobin 27 pg (27-31); Mean Corpuscular Volume 87 fL (80-97); Nucleated Red Blood Cells % 0.1; Platelet Count 358 10^3/ul (150-450); Red Blood Count 3.24 10^6/ul (4.00-5.40); Red Cell Distribution Width 21 % (10.5-15); White Blood Count 8.4 10^3/ul (3.5-10.8)
[2018-04-25 12:57] LABS: EGFR Non-African American 36.1 (>60)
[2018-04-25] MEDS ORDERED: Morphine VIAL* 4 MG/ML VIAL (1 ml vial) IV ONE ×2 (12:59→13:00)
--- NOTE | 2018-04-25 13:07 | RAD ---
INDICATION: Short of breath COMPARISON: April 10, 2018 TECHNIQUE: An AP portable view obtained at 1249 hours is submitted. FINDINGS: Bones/Soft Tissues: There are no acute bony findings. There is a right-sided [id number] catheter. There is prior sternotomy. There is a cardiac pacemaker/defibrillator. Cardiomediastinal: The heart is normal in size. Central pulmonary vessels and interstitium are prominent compatible with moderate vascular congestion there is mild worsening. Lungs: There are no infiltrates. Pleura: Small bilateral pleural effusions. Other: None IMPRESSION: MODERATE VASCULAR CONGESTION WITH WORSENING.
[2018-04-25 13:17] LABS: Urine Appearance Cloudy; Urine Blood 1+ (Negative); Urine Color Yellow; Urine Ketones Negative (Negative); Urine Protein 3+(>=500 mg/dL) (Negative); Urine Red Blood Cell 1+(3-5/hpf) (Absent); Urine Specific Gravity 1.016 (1.010-1.030); Urine Urobilinogen Negative (Negative); Urine White Blood Cell 3+(>20/hpf) (Absent)
[2018-04-25] MEDS ORDERED: Albuterol/Ipratropium NEB.SOL* Albuterol 2.5 MG/Ipratropium 0.5 MG 3 ML INH PRN (14:59)
[2018-04-25] MEDS ORDERED: nitroGLYCERIN DRIP* 25,000 MCG/250 ML BTL IV SCH (16:00)
[2018-04-25] MEDS ORDERED: Dextrose 50% Syringe 50 ML* 25 GM/50 ML SYRINGE IV PUSH PRN (16:37)
[2018-04-25] MEDS ORDERED: Insulin LISPRO* 1 UNITS UNIT SUBCUT SCH (17:00)
[2018-04-25] MEDS ORDERED: hydrALAZINE IV* 20 MG/ML VIAL IV SLOW PU PRN (17:10)
[2018-04-25] MEDS: nitroGLYCERIN DRIP* 25,000 MCG/250 ML BTL IV SCH (19:16)
--- NOTE | 2018-04-25 20:11 | HP ---
CC: Dr. Rolando Johnson; Dr. Moises Valdes * HISTORY AND PHYSICAL: DATE OF ADMISSION: 04/25/18 PRIMARY CARE PROVIDER: Dr. Moises Valdes. PRIMARY STRUCTURAL TEST ENGINEER: Dr. Rolando Johnson. ATTENDING PHYSICIAN: Jolanta Mckinley DO * (dictated by Tressa Arnold NP) CHIEF COMPLAINT: Shortness of breath, right thigh edema, and weight gain. HISTORY OF PRESENT ILLNESS: Ms. Galarza is a 58-year-old female with past medical history significant for diabetes mellitus; chronic kidney disease secondary to diabetes; recurrent infections including urinary tract infection, most recently an E. coli multiresistant UTI, treated with ertapenem; carotid artery disease; peripheral vascular disease; left subclavian stenosis; osteomyelitis, status post left BKA; restless legs syndrome; neuropathy secondary to diabetes mellitus; COPD; and systolic heart failure who has been working diligently with her outpatient poultry farm supervisor, Dr. Johnson, to control her heart failure. The patient states that over approximately the last 3 or 4 days , she has gained approximately 9 to 11 pounds. She states that she has been receiving IV furosemide infusions with the last being on 04/22/18. The patient states for approximately a week, she has had no insulin pump; she states running out of insulin on 04/20/18 and has been waiting for that to be refilled. She was at Dr. Johnson's office for a followup today. She was noted to have pedal edema, shortness of breath, and orthopnea. She took 40 mg of torsemide at 6 a.m. this morning and by the time she was seen in his office had still not yet urinated. Her oxygen saturation was found to be 84% at rest. She was placed on 2 L and this improved to 97%. She was also noted to be hypertensive with a systolic blood pressure of 180, diastolic blood pressure of 104. The patient denies any recent fevers, chills. She reports using oxygen at 2 L at bedtime. She reports having decreased urine output over the last week , but she denies any other urinary symptoms such as urinary urgency, changes in frequency, or dysuria. She denies any flank pain. She reports shortness of breath at all times, worse with exertion. She also reports chest pressure that she describes as an elephant sitting on her chest. She reports intermittent nausea and dry heaves. Due to being unable to manage the patient's heart failure outpatient, it is recommended she come to the emergency room for further evaluation. While in the emergency room, the patient had a chest x-ray showing moderate vascular congestion with worsening. She had an EKG showing an AV paced rhythm at a rate of 90. She had a urinalysis significant for 3+normal protein, 1+ blood, nitrite positive, wbc's positive, rbc's 1+, bacteria 3+, glucose 3+. She had routine labs showing a BNP of 1844. Initial troponin 0.02. She is noted to have an elevated creatinine, but this appears to be near her baseline. Additionally, the patient is noted to be anemic and this also appears to be near her baseline. The hospitalists were asked to evaluate the patient for admission. PAST MEDICAL HISTORY: 1. Restless legs syndrome. 2. Diabetic polyneuropathy. 3. Systolic congestive heart failure. 4. Spinal stenosis. 5. Coronary artery disease. 6. Chronic kidney disease, stage 3. 7. Diabetes mellitus. 8. Osteomyelitis. 9. Carotid artery occlusion, status post stenting. 10. Hyperlipidemia. 11. Hypertension. 12. Gastroparesis secondary to diabetes mellitus. 13. COPD. 14. History of left leg osteomyelitis. 15. Peripheral vascular disease. 16. History of cerebrovascular accident. 17. Left subclavian stenosis. PAST SURGICAL HISTORY: 1. Status post bilateral carotid endarterectomy. 2. Status post left [id number] amputation. 3. Status post multiple I and D's of the wound at the left amputation site. 4. Status post laminectomy. 5. Status post tonsillectomy. 6. Status post cholecystectomy. 7. Status post hysterectomy. 8. Status post appendectomy. 9. Status post coronary artery bypass graft. MEDICATIONS: Home medications include: 1. Coreg 3.125 mg oral daily. 2. Metolazone 5 mg oral daily on Wednesday, Wednesday, and Wednesday and prior to IV Lasix as instructed. 3. Spiriva 1 capsule inhalation daily. 4. Neurontin 2400 mg oral every evening. 5. Acetaminophen 650 mg oral every 4 hours as needed for fever or pain. 6. Colace 100 mg oral twice daily. 7. Atorvastatin 20 mg oral daily. 8. Aspirin 81 mg oral daily. 9. DuoNeb 1 neb inhalation every 4 hours as needed for shortness of breath or wheeze. 10. Entresto 24/26 one tablet oral twice daily. 11. Mirapex 0.5 mg oral daily at bedtime. 12. Zofran 4 mg oral every 6 hours as needed for nausea, vomiting. 13. Torsemide 40 mg oral every morning. 14. Spironolactone 12.5 mg oral every day. 15. Dulera 100/5 MDI 2 puffs inhalation twice daily. 16. Heparin flush 5 mL to her port daily as needed. 17. Lispro via her insulin pump. ALLERGIES: BEES, CEPHALOSPORIN, CODEINE, BENADRYL, PENICILLIN, and SULFA. FAMILY HISTORY: The patient is unaware of her family history. She was adopted. SOCIAL HISTORY: The patient is a former smoker, recently quit smoking. She denies alcohol or recreational drug use. Her , Genaro Galarza, will be her surrogate decision maker in the event she is unable to make decisions for herself. REVIEW OF SYSTEMS: I performed an 11-point review of systems. All the pertinent positives and negatives are mentioned in the history of present illness. The remaining review of systems are negative. PHYSICAL EXAMINATION GENERAL APPEARANCE: The patient is alert, chronically ill-appearing, pleasant, appears to be in no acute distress. VITAL SIGNS: Temperature 98, heart rate 67, respiratory rate 16, O2 sat 99% on 4 L via nasal cannula, blood pressure 128/78. HEENT: Normocephalic, atraumatic. Pupils are equal and reactive to light. Extraocular movements are intact. RESPIRATORY: There is no accessory muscle use. Her lung sounds are clear in the upper lobes with bilateral basilar crackles. CARDIOVASCULAR: Regular rate and rhythm. S1, S2 are present. She is noted to have jugular vein distention and 2+ pitting edema to her right lower extremity, mostly in her thigh with trace edema in the lower extremity. ABDOMEN: Soft, nontender, nondistended. Bowel sounds present x4. EXTREMITIES: Per above, the patient has 2+ edema to the right lower extremity. DP, PT pulses are 1+ on the right. She has positive popliteal pulse on the left. MUSCULOSKELETAL: There is no clubbing or cyanosis noted. The patient exhibits good strength in all extremities. NEUROLOGICAL: The patient is drowsy, but alert and oriented. Cranial nerves II through XII are grossly intact. PSYCHOLOGICAL: The patient is calm and cooperative. SKIN: There are no rashes or abnormalities seen. DIAGNOSTIC STUDIES/LABORATORY DATA: Sodium 135, potassium 4.3, chloride 101, CO2 of 28, BUN 33, creatinine 1.49, glucose 375. White blood cell count 8.4, hemoglobin 8.6, hematocrit 28, platelet count 358. BNP 1844, troponin 0.02. Urinalysis is significant for 3+ protein, 1+ blood, nitrite positive, wbc's positive, rbc's positive, bacteria 3+, glucose 3+. EKG shows an AV paced rhythm at a rate of 90, no acute signs of ischemia in this paced EKG. EKG is similar to previous EKG from 04/10/18. Chest x-ray from today. Radiologist's impression: Moderate vascular congestion was worsening. IMPRESSION: Ms. Galarza is a 58-year-old female with complex past medical history significant for coronary artery disease, history of cerebrovascular accident, systolic congestive heart failure, diabetic polyneuropathy, chronic kidney disease stage 3, gastroparesis, carotid artery occlusion, who presented to the emergency room from her poultry farm supervisor's office for an acute on chronic systolic heart failure exacerbation. She will be admitted as an inpatient. 1. Acute on chronic systolic heart failure. The patient has failed outpatient treatments. She received 60 of IV Lasix in the emergency room. Additionally, the patient states she took 40 of torsemide at 6 a.m. with no urine output. The patient did have 100 mL out when she was straight cathed in the emergency room. For now, we will follow her and see how she diureses. I am going to continue her on her spironolactone, give her a dose of metolazone in the morning and then place her back on her Wednesday, Wednesday, Wednesday dosing. We have asked Cardiology to consult on the patient. She will have daily weights, strict I's and O's. We will add the patient on her home carvedilol and Entresto. 2. Hypertension. The patient was hypertensive at her office visit today and additionally, initially in the emergency room, she was placed on a nitroglycerin drip that improved her blood pressures into the 120s. We will continue her on the nitro drip for now. We will add in hydralazine as needed if her blood pressure elevates again. 3. Chronic kidney disease, stage 3. The patient's creatinine appears to be near her baseline. For now, we are going to continue to follow, especially with giving her increased diuretics. I recommend considering a Nephrology consult if the patient continues to have decreased urine output and her renal insufficiency worsens. This is secondary to her diabetes. 4. Chest pain. The patient reports chest pain described as an elephant sitting on her chest. She had initial troponin of 0.02. Unable to interpret her EKG to being dual paced. We will follow her troponins. I suspect her chest discomfort is secondary to her heart failure exacerbation. The patient had an aspirin in the emergency room. 5. Acute hypoxic respiratory failure. The patient generally is not on oxygen during the daytime and she is currently requiring 4 L of oxygen. We will continue her oxygen, titrate as able. I suspect this is secondary to her heart failure exacerbation and will improve once we are able to give some of the fluid off. 6. Possible urinary tract infection. The patient straight cath is significant for 1+ blood, 3+ wbc's, 3+ bacteria. The patient is currently asymptomatic denying dysuria, urgency, frequency, or flank pain. I touch base with Infectious Disease who requested that we wait to see what her urine culture is, hopefully back by tomorrow before starting her on antibiotics if she has multiple sensitivities to multiple antibiotics. We will get a set a of blood culture. She is currently afebrile and has no leukocytosis. 7. Anemia. The patient appears to be at her baseline. 8. Diabetes mellitus. The patient currently does not have her insulin pump with her. As a matter of fact, she states that she ran out of insulin back on 04/20/18. For now, we will do glucoses at a.c. and h.s. and we will cover her with a lispro sliding scale. If she is able to provide her insulin pump, we will place her back on an insulin pump. Her last hemoglobin A1c was 9.9 in January, down from 16.4 in September. We will recheck a hemoglobin A1c in the morning. 9. Diabetic polyneuropathy. The patient will be continued on her home Neurontin. We will hold this for sedation. This is secondary to her diabetes. 10. Peripheral vascular disease. The patient will be continued on her aspirin. 11. History of cerebrovascular accident. The patient will be continued on her home aspirin and statin. 12. Hypertension. The patient is currently hypotensive. She will be continued on the nitro drip. We will do hydralazine as needed. She will be continued on her home Entresto and carvedilol. 13. Hyperlipidemia. The patient will be continued on her home atorvastatin. 14. Restless legs syndrome. The patient will be continued on her home Mirapex. 15. Chronic obstructive pulmonary disease. There are no signs of acute COPD exacerbation at this time. She will be continued on her home inhalers. 16. Left subclavian stenosis. The patient will continue to follow up with her PCP and Vascular team. 17. Left below-knee amputation. History noted. 18. Fluids, electrolytes, and nutrition. The patient will be on a consistent carbohydrate, low sodium diet. 19. Code status. Full code. 20. DVT prophylaxis. The patient is high risk. Will be on subcu heparin. 21. Disposition. Inpatient. TIME SPENT: Time for this admission was approximately 60 minutes, greater than half of that was spent with the patient discussing medications, past medical history, the events leading up to her arrival today, performing a physical examination. Case has been reviewed with the attending, Dr. Mckinley, who agrees with the plan of care. Reviewed by TANIA HERNANDEZ 04/30/18 1608 [id number]/[facility] #: [id number] ABNER
[2018-04-25] MEDS: Mometasone/Formoter 100/5 MDI INH SCH (20:33)
[2018-04-25] MEDS ORDERED: Sacubitril/Valsartan 24/26(NF) 1 TAB PO SCH (21:00)
[2018-04-25] MEDS: Carvedilol TAB* 3.125 MG PO SCH (21:31)
[2018-04-25] MEDS: Gabapentin CAP(*) 300 MG PO SCH (21:31)
[2018-04-25] MEDS: Docusate CAP* 100 MG PO SCH (21:32)
[2018-04-25] MEDS: Pramipexole TAB* 0.5 MG PO SCH (21:32)
[2018-04-25] MEDS: Heparin VIAL(*) 5000 UNITS/ML VIAL (FIVE THOUSAND) SUBCUT SCH (21:32)
[2018-04-25] MEDS: Ondansetron TAB* 4 MG PO PRN (21:43)
[2018-04-25] MEDS: Ondansetron INJ* 2 MG/ML VIAL IV PRN (22:02)
--- NOTE | 2018-04-26 00:07 | PN ---
Progress Note - Progress Note Date of Service: 04/26/18 Note: Urinary retention - >600 cc on straight cath. Mckeon catheter inserted.
[2018-04-26] MEDS: Heparin VIAL(*) 5000 UNITS/ML VIAL (FIVE THOUSAND) SUBCUT SCH ×3 (05:47→21:06)
[2018-04-26 06:05] LABS: ABS Basophils 0.1 10^3/ul (0-0.2); ABS Eosinophils 0.1 10^3/ul (0-0.6); ABS Monocytes 0.4 10^3/ul (0-0.8); ABS Neutrophils 5.9 10^3/ul (1.5-7.7); ABS Nucleated RBC 0 10^3/ul; Eosinophil % 1.8 % (0-6); Hematocrit 24 % (35-47); Hemoglobin 7.4 g/dl (12.0-16.0); Lymphocyte % 13.7 % (25-47); Mean Corpuscular HGB Conc 31 g/dl (31-36); Mean Corpuscular Hemoglobin 27 pg (27-31); Mean Corpuscular Volume 86 fL (80-97); Mean Platelet Volume 8.6 um3 (7.4-10.4); Nucleated Red Blood Cells % 0; Platelet Count 302 10^3/ul (150-450); Red Blood Count 2.75 10^6/ul (4.00-5.40); Red Cell Distribution Width 21 % (10.5-15); White Blood Count 7.4 10^3/ul (3.5-10.8)
[2018-04-26 06:26] LABS: EGFR Non-African American 41.1 (>60)
[2018-04-26] MEDS: nitroGLYCERIN DRIP* 25,000 MCG/250 ML BTL IV SCH (06:31)
[2018-04-26] MEDS: Acetaminophen TAB* 325 MG PO PRN (08:08)
[2018-04-26] MEDS: Mometasone/Formoter 100/5 MDI INH SCH ×2 (08:36→19:58)
[2018-04-26] MEDS: Ondansetron TAB* 4 MG PO PRN (08:44)
[2018-04-26] MEDS: Insulin LISPRO* 1 UNITS UNIT SUBCUT SCH ×4 (08:44→21:05)
[2018-04-26] MEDS: Isosorbide Mononitrate ER TAB* 30 MG PO SCH (08:44)
[2018-04-26] MEDS: Metolazone TAB* 5 MG PO SCH (08:44)
[2018-04-26] MEDS: hydrALAZINE TAB* 10 MG PO SCH ×3 (08:44→20:57)
[2018-04-26] MEDS ORDERED: Atorvastatin* 20 MG TAB PO SCH (09:00)
[2018-04-26] MEDS: Tiotropium CAP.INH* CAP.INH/18 MCG (USE ORDER SET !) INH SCH (09:00)
--- NOTE | 2018-04-26 09:03 | PN ---
Subjective Date of Service: 04/26/18 Interval History: Pt is feeling a little better today than yesterday. Her breathing is easier but still more labored than baseline. When the NTG drip was titrated down overnight she developed recurrent chest pain and the drip was increased. She has no chest pain at this time. Overnight the patient was also unable to urinate on her own. A pagan catheter was placed-the patient indicates at home she will sometimes have a hard time urinating. She has never seen a urologist in the past. Objective Active Medications: Acetaminophen (Tylenol Tab*) 650 mg PO Q4H PRN PRN Reason: FEVER/PAIN Last Admin: 04/26/18 08:08 Dose: 650 mg Albuterol/Ipratropium (Duoneb (Albuterol 2.5 Mg/Ipratropium 0.5 Mg)) 1 neb INH Q4H PRN PRN Reason: WHEEZING Aspirin (Aspirin Ec Tab*) 81 mg PO QAM [facility] Atorvastatin Calcium (Lipitor*) 20 mg PO DAILY [facility] Carvedilol (Coreg Tab*) 3.125 mg PO BID [facility] Last Admin: 04/25/18 21:31 Dose: 3.125 mg Dextrose (D50w Syringe 50 Ml*) 12.5 gm IV PUSH .FOR FS < 60 - SS PRN PRN Reason: FS < 60 Docusate Sodium (Colace Cap*) 100 mg PO BID [facility] Last Admin: 04/25/18 21:32 Dose: Not Given Furosemide (Lasix Iv*) 80 mg IV SLOW PU DAILY [facility] Gabapentin (Neurontin Cap(*)) 1,200 mg PO BEDTIME [facility] Last Admin: 04/25/18 21:31 Dose: 1,200 mg Heparin Sodium (Porcine) (Heparin Flush Port (Ivad)) 5 ml FLUSH DAILY [facility]; Protocol Heparin Sodium (Porcine) (Heparin Vial(*)) 5,000 units SUBCUT Q8HR [facility] Last Admin: 04/26/18 05:47 Dose: 5,000 units Hydralazine HCl (Apresoline Tab*) 10 mg PO TID [facility] Last Admin: 04/26/18 08:44 Dose: 10 mg Nitroglycerin/Dextrose (Nitroglycerin Drip*) 25,000 mcg in 250 mls @ 12 mls/hr IV .(Initial Rate) [facility]; Protocol Last Admin: 04/26/18 06:31 Dose: 18 mls/hr Insulin Human Lispro (Humalog*) 0 - 10 units SUBCUT ACHS [facility]; Protocol Last Admin: 04/26/18 08:44 Dose: 2 units Isosorbide Mononitrate (Imdur Er Tab*) 30 mg PO DAILY [facility] Last Admin: 04/26/18 08:44 Dose: 30 mg Metolazone (Zaroxolyn Tab*) 5 mg PO MoWeFr@0830 [facility] Last Admin: 04/26/18 08:44 Dose: 5 mg Mometasone Furoate/Formoterol Fumar (Dulera 100/5 Mdi*) 2 puff INH BID [facility] Last Admin: 04/26/18 08:36 Dose: Not Given Ondansetron HCl (Zofran Tab*) 4 mg PO Q6H PRN PRN Reason: NAUSEA Last Admin: 04/26/18 08:44 Dose: 4 mg Ondansetron HCl (Zofran Inj*) 4 mg IV Q4H PRN PRN Reason: NAUSEA Last Admin: 04/25/18 22:02 Dose: 4 mg Pramipexole Dihydrochloride (Mirapex Tab*) 0.5 mg PO BEDTIME [facility] Last Admin: 04/25/18 21:32 Dose: 0.5 mg Spironolactone (Aldactone Tab*) 12.5 mg PO DAILY [facility] Tiotropium [place] (Spiriva Cap.Inh*) 1 cap INH DAILY [facility] Vital Signs - 8 hr 04/26/18 04/26/18 04/26/18 01:00 01:30 02:00 Temperature Pulse Rate 78 60 64 Respiratory 24 15 10 Rate Blood Pressure 128/76 142/77 143/71 (mmHg) O2 Sat by Pulse 96 98 99 Oximetry 04/26/18 04/26/18 04/26/18 02:30 03:00 03:29 Temperature 97.4 F Pulse Rate 60 61 Respiratory 15 4 Rate Blood Pressure 143/79 127/63 (mmHg) O2 Sat by Pulse 98 97 Oximetry 04/26/18 04/26/18 04/26/18 03:30 03:50 03:51 Temperature Pulse Rate 65 74 Respiratory 21 16 20 Rate Blood Pressure 151/81 159/90 (mmHg) O2 Sat by Pulse 98 97 Oximetry 04/26/18 04/26/18 04/26/18 04:00 04:05 04:20 Temperature Pulse Rate 65 65 65 Respiratory 19 20 Rate Blood Pressure 152/86 154/83 (mmHg) O2 Sat by Pulse 96 97 98 Oximetry 04/26/18 04/26/18 04/26/18 04:29 04:30 04:41 Temperature Pulse Rate 62 Respiratory 16 18 Rate Blood Pressure 151/79 (mmHg) O2 Sat by Pulse 98 98 Oximetry 04/26/18 04/26/18 04/26/18 04:45 05:00 05:15 Temperature Pulse Rate 63 67 67 Respiratory 17 18 15 Rate Blood Pressure 145/76 138/72 152/84 (mmHg) O2 Sat by Pulse 97 97 97 Oximetry 04/26/18 04/26/18 04/26/18 05:30 05:45 06:00 Temperature Pulse Rate 65 63 67 Respiratory 17 17 22 Rate Blood Pressure 144/76 145/75 145/70 (mmHg) O2 Sat by Pulse 97 97 97 Oximetry 04/26/18 04/26/18 04/26/18 06:15 06:30 06:45 Temperature Pulse Rate 67 64 68 Respiratory 20 21 17 Rate Blood Pressure 140/69 137/68 148/74 (mmHg) O2 Sat by Pulse 95 95 96 Oximetry 04/26/18 04/26/18 04/26/18 07:00 07:15 07:30 Temperature Pulse Rate 68 69 73 Respiratory 20 18 20 Rate Blood Pressure 122/62 149/80 150/79 (mmHg) O2 Sat by Pulse 93 96 96 Oximetry 04/26/18 04/26/18 04/26/18 07:45 07:56 08:00 Temperature 98.5 F Pulse Rate 67 71 Respiratory 18 22 Rate Blood Pressure 142/72 146/76 (mmHg) O2 Sat by Pulse 96 97 Oximetry Oxygen Devices in Use Now: Nasal Cannula Appearance: Middle aged female sitting up in bed, NAD Eyes: No Scleral Icterus Ears/Nose/Mouth/Throat: Mucous Membranes Moist Respiratory: Symmetrical Chest Expansion and Respiratory Effort, Clear to Auscultation - with coarse bibasilar crackles Cardiovascular: NL Sounds; No Murmurs; No JVD, RRR, - - trace to 1+ edema to R LE Abdominal: NL Sounds; No Tenderness; No Distention Extremities: No Clubbing, Cyanosis, - - L BKA Skin: No Nodules or Sclerosis Neurological: Alert and Oriented x 3 Result Diagrams: 04/26/18 05:50 04/26/18 05:50 Microbiology and Other Data: Microbiology 04/25/18 18:30 Nasal Screen MRSA (PCR) - Final Nasal Mrsa Not Detected Assess/Plan/Problems-Billing Ms Galarza is a 58 yo F who has a complicated PMHx including systolic CHF, CAD, HTN, type II DM, stage III CKD, COPD and past h/o osteomyelitis requiring L BKA who has been receivign IV lasix as an outpatient for progressive weight gain and ultimately was sent to the ER for decompensated systolic CHF from Dr. Johnson 's office. - Patient Problems (1) Heart failure, systolic, with acute decompensation Current Visit: Yes Status: Acute Code(s): I50.23 - ACUTE ON CHRONIC SYSTOLIC (CONGESTIVE) HEART FAILURE SNOMED Code(s): 018966153 Comment: The patient was sent from Dr. Johnson's office for treatment of her decompensated CHF. She has been receiving IV lasix with some response. She will receive a dose of metolazone this AM prior to her lasix. Follow weights, respiratory status and symptoms. Dr. Villegas to see the patient today. Await any further recommendations. (2) Anemia Current Visit: Yes Status: Chronic Code(s): D64.9 - ANEMIA, UNSPECIFIED SNOMED Code(s): 158919041 Comment: H/H dropped from 8.6 to 7.4 today. No report of bleeding. Will repeat H/H at 1400. This should not be dilutional as the patient is being diuresed and not receiving fluids. For now await results of follow up H/H and will make plan for evaluation after results back. (3) UTI (urinary tract infection) Current Visit: Yes Status: Acute Comment: Urinalysis abnormal on admission. Dr. Damon to weigh in on whether or not she should be treated. Her urine was reported to be purulent by nursing when the pagan catheter was placed last night. I do question if she has incomplete bladder emptying potentially leading to her recurrent UTIs. Await culture. (4) Urinary retention Current Visit: Yes Status: Acute Code(s): R33.9 - RETENTION OF URINE, UNSPECIFIED SNOMED Code(s): 744204335 Comment: The patient has intermittently in the past had urinary retention. ? secondary to her longstanding h/o poorly controlled DM. Continue pagan catheter for now but perhaps she could be taught how to straight cath. (5) Uncontrolled type II diabetes mellitus Current Visit: Yes Status: Acute Code(s): E11.65 - TYPE 2 DIABETES MELLITUS WITH HYPERGLYCEMIA SNOMED Code(s): 26906901 Comment: Pt has run out of her insulin for her pump. Continue lispro sliding scale and monitor sugars. Can initiate low dose lantus if needed. A1c pending. (6) CKD (chronic kidney disease) stage 3, GFR 30-59 ml/min Current Visit: Yes Status: Chronic Code(s): N18.3 - CHRONIC KIDNEY DISEASE, STAGE 3 (MODERATE) SNOMED Code(s): 931647370 Comment: Creatinine is at baseline. Continue to follow in setting of aggressive IV diuresis. (7) CAD (coronary artery disease) Current Visit: Yes Status: Chronic Code(s): I25.10 - ATHSCL HEART DISEASE OF [place] CORONARY ARTERY W/O ANG PCTRS SNOMED Code(s): 77109289 Comment: Pt had significant CP overnight when the NTG was weaned down. I suspect the CP was secondary to fluid overload. Trop negative. Continue coreg, ASA, lipitor. (8) COPD (chronic obstructive pulmonary disease) Current Visit: No Status: Chronic Code(s): J44.9 - CHRONIC OBSTRUCTIVE PULMONARY DISEASE, UNSPECIFIED SNOMED Code(s): 43292588 Comment: Stable with no signs of exacerbation. Contiue spiriva and dulera. (9) HTN (hypertension) Current Visit: No Status: Chronic Onset Date: 06/23/14 Code(s): I10 - ESSENTIAL (PRIMARY) HYPERTENSION SNOMED Code(s): 99508385 Comment: BP is moderately elevated. Continue coreg, hydralazine 10mg TID and add imdur 30mg daily. Monitor BP. (10) HLD (hyperlipidemia) Current Visit: Yes Status: Chronic Code(s): E78.5 - HYPERLIPIDEMIA, UNSPECIFIED SNOMED Code(s): 68967877 Comment: Continue lipitor. (11) Peripheral vascular disease Current Visit: Yes Status: Chronic Code(s): I73.9 - PERIPHERAL VASCULAR DISEASE, UNSPECIFIED SNOMED Code(s): 826025380 Comment: Stable. Continue ASA. (12) DVT prophylaxis Current Visit: Yes Status: Acute Code(s): QEF0061 - SNOMED Code(s): 232673377 Comment: SQ heparin (13) Full code status Current Visit: Yes Status: Acute Code(s): Z78.9 - OTHER SPECIFIED HEALTH STATUS SNOMED Code(s): 110095448
[2018-04-26] MEDS: Docusate CAP* 100 MG PO SCH ×2 (09:18→20:35)
[2018-04-26] MEDS: Carvedilol TAB* 3.125 MG PO SCH ×2 (09:18→21:05)
[2018-04-26] MEDS: Aspirin EC TAB* 81 MG TAB.EC PO SCH (09:19)
[2018-04-26] MEDS: Spironolactone TAB* 25 MG PO SCH (09:19)
[2018-04-26] MEDS: Furosemide IV* 10 MG/ML VIAL (40 MG) IV SLOW PU SCH (09:19)
--- NOTE | 2018-04-26 11:59 | PN ---
Progress Note - Progress Note Date of Service: 04/26/18 Note: I was called to the patient's bedside due to concerns for R arm weakness, numbness and drift. When I see Michelle she is sitting up in bed, awake, alert and oriented. She c/o a numbness/tingling in her finger of the R hand. She notes that the hand is swollen. She also states her R leg is heavy feeling. On exam her BP is 130/70's (lower than it has been). Her HR is stable in the 60's and paced. R UE strength appears reduced to 4/5 but her effort does not seem maximized. She does not have a significatn drift of the R arm. Her R LE strength is also reduced at 3-/5 but again her effort appears reduced. Will get STAT CT brain. She would not be a tPA candidate as she has a newly worsened anemia of unclear cause. I question if her symptoms may be secondary to hypoperfusion from lower BP than she has been used to and worsened anemia exacerbating prior insults. She was on a NTG drip and this has now been stopped. additionally the patient's hand/wrists look edematous-? compression on the carpal tunnel leading to the numbness which is her biggest complaint. Her R leg is also edematous and her complaint in her leg is heaviness. Will follow up the patient's exam when she returns from CT. Neurology consult requested.
--- NOTE | 2018-04-26 12:22 | RAD ---
Indication: RIGHT hand numbness and weakness. Comparison: October 10, 2017 Technique: Noncontrast CT vertex of skull through foramen magnum. Report: The sulci, ventricles, and basal cisterns are normal for age. [place] matter white matter differentiation is preserved without evidence for edema. No intra or extra axial hemorrhage, mass, or fluid collection detected. Unremarkable visualized orbital contents. Unremarkable calvarium and skull base. Unremarkable scalp. Postsurgical change at the maxillary and ethmoid sinuses. Negative for paranasal sinus fluid levels within the [id number]. Clear mastoid air spaces. IMPRESSION: #. No acute intracranial process evident.
[2018-04-26] MEDS: Morphine VIAL* 4 MG/ML VIAL (1 ml vial) IV PRN ×3 (13:19→23:26)
[2018-04-26 15:36] LABS: Hematocrit 23 % (35-47); Hemoglobin 7.3 g/dl (12.0-16.0)
--- NOTE | 2018-04-26 16:56 | CONS ---
NEUROLOGY CONSULTATION: DATE OF CONSULT: 04/26/18 LOCATION: The patient is in the ICU. REQUESTING PHYSICIAN: Jolanta Mckinley DO. REASON FOR CONSULT: Right-sided numbness and weakness. HISTORY OF PRESENT ILLNESS: Michelle Galarza is a 58-year-old woman with multiple vascular risk factors including poorly controlled insulin-dependent diabetes; coronary artery disease, status post bypass; carotid artery disease, status post stenting; hypertension and hyperlipidemia as well as past TIA who was admitted to the ICU because of CHF exacerbation. This morning around 11 a.m., she began to develop some numbness and tingling in her right hand. She then felt that the arm was heavy and the leg developed heaviness on the right side as well. One of her nurses came in within 10 to 20 minutes after the onset of these symptoms and she reported them, at which point an assessment was done and it was felt that she had some drift of her right arm and some weakness of her right leg as well as sensory changes on the right side. Dr. Mckinley evaluated the patient urgently and found some again weakness in the right arm, but felt that her effort was not maximal, and similarly with the right leg. Plain CT of the brain was obtained, which did not show any signs of hemorrhage or subacute stroke. Dr. Mckinley felt that she was not a good t-PA candidate because of a new worsened anemia of unclear cause. In addition, Ms. Galarza had been on nitro drips because of elevated blood pressure, which on her admission yesterday was in the 180s/130s and her blood pressure had come down significantly and possibly overshot the goal with a value of 100/53 approximately 15 to 20 minutes before these symptoms began. Therefore, it was thought that some of her symptoms may be related to relative hypoperfusion. Consequently, Aziza Diaz was not called, but I was asked to see the patient for these neurologic changes. The patient is known to me from a previous hospitalization at the end of September when she had left-sided weakness in her arm as well as numbness. At that time, it was thought that she may have had a subacute infarct in her rosalee, but on subsequent scans, this did not appear to be the case. She is not able to undergo MRI scan for further characterization because of the presence of a pacemaker. In addition, at this time, her renal function is such that Dr. Mckinley would prefer to avoid a CT angiogram of her head and neck as well and as I doubt it would private branch exchange operator, I agree. In addition, she had this in September with her previous event. Of note, she is on aspirin daily, but was taken off clopidogrel because of thrombocytopenia. Her head CTA in September did not show any evidence of significant intracranial stenosis. To me, Michelle states that continues to experience right leg heaviness, but thinks that her sensation in her arm is essentially back to normal, though it still feels weaker than normal. PAST MEDICAL HISTORY: 1. Insulin-dependent diabetes. 2. Coronary artery disease, status post bypass. 3. Peripheral vascular disease. 4. Chronic kidney disease, stage 3. 5. History of TIA. 6. Hypertension. 7. Hyperlipidemia. 8. Chronic osteomyelitis of the left lower extremity. 9. Peripheral neuropathy. 10. Restless legs syndrome. 11. Chronic heart failure. 12. Anemia of chronic disease. 13. COPD. HOME MEDICATIONS: 1. Hydralazine 10 mg t.i.d. 2. Metolazone 5 mg daily. 3. Spiriva 1 inhalation daily. 4. Gabapentin 1800 to 2400 mg at night. 5. Acetaminophen 650 q.4 p.r.n. 6. Docusate 100 mg twice daily. 7. Carvedilol 3.125 mg twice daily. 8. Atorvastatin 20 mg daily. 9. Aspirin 81 mg daily. 10. DuoNebs p.r.n. 11. Pramipexole 0.5 mg at bedtime. 12. Zofran 4 mg q.6 p.r.n. 13. Torsemide 40 mg q.a.m. 14. Spironolactone 12.5 mg daily. 15. Dulera twice daily. 16. Heparin port flush daily. 17. Lispro insulin. ALLERGIES: BEES cause anaphylactic shock, CEPHALOSPORINS cause shortness of breath, CODEINE cause GI upset, DIPHENHYDRAMINE causes difficulty breathing, PENICILLINS cause hives, and SULFA causes hives. FAMILY HISTORY: Unknown as the patient is adopted. SOCIAL HISTORY: She is a former smoker. No alcohol use. REVIEW OF SYSTEMS: She reports that her breathing is better today. She still has some chest pain, which she says has improved with a morphine injection. PHYSICAL EXAM: Vital Signs: Temperature 98.2, blood pressure 137/80, heart rate 66, oxygen saturation 96% on room air. Between 10:15 and 10:45 this morning, her blood pressures were between 100 and 107 systolic with diastolics in the 50s, where as on her admission yesterday her blood pressure was 181/130 to the high 160s over the low 100s for the first hour or so. On general examination, she was sleeping in her bed, but roused easily to voice. She is in no acute distress. She is a pleasant woman, who appears her stated age. Her heart is in a regular rate and rhythm with a soft systolic ejection murmur. She had bilateral carotid bruits, louder on the right. Lungs had crackles at the bases bilaterally. There is a below the knee amputation on the left. On neurologic exam, she is fully awake, alert, and oriented. Her speech is fluent without dysarthria or aphasia. Pupils were equal, round, and reactive from 4 to 2 mm bilaterally. Versions were intact with nystagmus on right horizontal gaze, which was also noted during her initial evaluation in September as well. On visual field testing, she initially seemed to extinguish to double simultaneous stimulation in the right lower quadrant, but towards the end of the testing, she was able to perceive this bilaterally. Facial sensation was diminished to pinprick in the V2 and V3 distributions on the right, but intact in the V1 distribution. She appears to have some slight left lower facial weakness, which I had also noted previously in September, but equal activation with smile and her eye closure is symmetric as is her forehead wrinkle. Hearing is intact to finger rub. Palate elevates symmetrically and the tongue is midline. Shoulder shrug was delayed on the right. On motor examination, she had some drift without pronation of the right arm. She seemed to have some inconsistent effort in the right arm on manual muscle testing, but the left arm and leg were full strength. She was able to lift the right heel approximately 2 to 3 inches up off the bed, but not further than that. She was able to very slowly flex her knee and place her foot on the bed, but did not give any resistance to straightening the leg. On pinprick testing, there was diminished pinprick in the right arm and leg globally compared to the left. Reflexes were 2+ in the upper extremities, difficult to elicit at the knees, absent at the right ankle. The right toe was mute. DIAGNOSTIC STUDIES/LAB DATA: BMP shows a creatinine of 1.33, BUN of 31, glucose of 150 with a glucose at 1302 measured at 157, hemoglobin A1c 10.1%. CBC shows a hemoglobin of 7.4 from 8.6 yesterday, hematocrit of 28 from 24 yesterday, RDW elevated at 21. INR was normal. Urinalysis showed positive nitrites and 3+ wbc's, negative leukocyte esterase, 3+ bacteria, 3+ glucose. I reviewed her non-contrast head CT, and the radiology report indicates there is no apparent acute intracranial process; however, I question when comparing the most recent CT to CT dated 10/10/17 if there could be some hypodensity in the area of the right medial temporal lobe. This may simply be related to volume averaging, but appears clearly different from previous. There is no clear change in the posterior fossa, including brain stem. IMPRESSION: Michelle Galarza is a 58-year-old woman with multiple vascular risk factors admitted for congestive heart failure exacerbation, who experienced some right arm and leg sensory changes as well as weakness and on examination also has some sensory changes in the right face. Time of onset was around 11 a.m., but given her recent worsening anemia of unclear etiology, she was not felt to be a good candidate for t-PA. In addition, her NIH stroke scale is relatively low with her earning 4 total. I note that there may be some changes on her CT scan compared to the previous, but this would not account for her current symptoms since it seems that the changes are in the right medial temporal lobe and could be artifactual in nature. At this point, I will obtain carotid Dopplers given the presence of the left carotid bruit, which I did not detect on my previous examination. We will keep her on close neuro checks and try to liberalize her blood pressure a little bit as the current symptoms could be related to relative of hypoperfusion. If her symptoms persist, it may be useful to repeat a CAT scan in the next day or 2 to see if there has been any definitive changes, which have evolved. At this point, we will keep her on aspirin and not restart clopidogrel since there is no significant intracranial stenosis and she has a previous history of thrombocytopenia, which resulted in the discontinuation of clopidogrel. I would aim to keep her MAP greater than 80. Thank you for this consultation. [id number]/[facility] #: [id number] ABNER
--- NOTE | 2018-04-26 17:50 | RAD ---
INDICATION: Carotid stenosis COMPARISON: CTA head and neck the 2016 TECHNIQUE: Transverse and longitudinal scans of the carotid and vertebral arteries were performed with magana scale, color Doppler, and spectral Doppler imaging. Stenosis criteria is based on flow velocities that correlate with visual internal carotid artery diameter (NASCET criteria) FINDINGS: Right carotid: There is right carotid endarterectomy with no evidence of significant restenosis. There is no spectral broadening. The peak systolic velocity of the internal carotid artery is 88 cm/s and the peak diastolic velocity 32 cm/s. The ICA/CCA ratio is calculated at 1.0. Left carotid: There is left carotid endarterectomy with no evidence of significant restenosis. There is no spectral broadening. The peak systolic velocity of the internal carotid artery is 93 cm/s and the peak diastolic velocity 37 cm/s. The ICA/CCA ratio is calculated at 1.3. Right vertebral: Right vertebral waveforms are normal and the flow is antegrade. Left vertebral: Left vertebral waveforms are normal and the flow is antegrade. IMPRESSION: BILATERAL CAROTID ENDARTERECTOMIES. NO EVIDENCE OF SIGNIFICANT RESTENOSIS CPT II Codes: 3100F [facility]
[2018-04-26] MEDS: Atorvastatin* 20 MG TAB PO SCH (21:05)
[2018-04-26] MEDS: Gabapentin CAP(*) 300 MG PO SCH (21:05)
[2018-04-26] MEDS: Pramipexole TAB* 0.5 MG PO SCH (21:06)
--- NOTE | 2018-04-26 22:05 | CONS ---
CC: Dr. León; Dr. Rolando Johnson * CARDIOLOGY CONSULT REPORT: DATE OF CONSULT: 04/26/18 INDICATION FOR CONSULT: Congestive heart failure. HISTORY OF PRESENT ILLNESS: The patient is a 58-year-old female with a history of ischemic cardiomyopathy, coronary artery disease, pacemaker, hypertension, renal insufficiency, who is admitted to the hospital with congestive heart failure. She was seen in the office by Dr. Johnson yesterday. She had noted an 8 to 10-pound weight gain. She had noticed increased shortness of breath, increased orthopnea. The patient was evaluated in the office and instructed to go to the hospital for admission for congestive heart failure. The patient was admitted to the intensive care unit for initiation of IV diuretics and IV nitroglycerine for her high blood pressure and congestive heart failure. The patient diuresed significantly overnight. She had a significant improvement in her symptoms, although not back to her baseline. The patient was having some mild chest pain when she was admitted to the hospital. She is since ruled out for a myocardial infarction. Again, the patient was started on an IV nitroglycerine drip. She was given Lasix 80 mg daily. Her other medications were continued. On initial presentation, the patient had an elevated creatinine level to 1.5. It has since fallen to 1.3. Her BNP level was elevated at 1844. TSH was normal. In speaking with the patient this afternoon , she denies any angina at this time. She says she is breathing much better, her ankles feel less edematous. The patient on admission weighed 159 pounds. This morning, she weighed 152 pounds. PAST MEDICAL HISTORY: Significant for ischemic cardiomyopathy, history of coronary artery disease, history of coronary artery bypass surgery, history of carotid endarterectomy, attempted a pacemaker, upgraded to a biventricular, she ultimately had a BiV upgrade with a surgically placed ventricular lead in 2016. She had coronary artery bypass surgery in 2009. At that time, she had ANAYA to her LAD, saphenous vein graft OM, saphenous vein graft to right coronary artery. Bilateral carotid endarterectomy in 2014. MEDICATIONS: Outpatient medications: 1. Plavix 75 mg a day. 2. Spironolactone 12.5 mg a day. 3. Imodium as directed. 4. Spiriva inhaler. 5. Torsemide 40 mg a day. 6. Aspirin 81 mg a day. 7. Carvedilol 3.25 mg b.i.d. 8. Oxygen as needed. 9. Hydralazine 10 mg b.i.d. 10. Humalog insulin as necessary. 11. Metolazone 5 mg 30 minutes before torsemide. 12. Zofran 4 mg as needed. ALLERGIES: She is intolerant to PENICILLIN, SULFA, VANCOMYCIN, BENADRYL, REGLAN. SOCIAL HISTORY: She is . She is currently unemployed. She does continue to smoke 1 to 5 cigarettes a day. She denies any alcohol. She rarely exercises. She does not consume caffeine. PHYSICAL EXAM: Height is 5 feet 2 inches, weight is 152 pounds, heart rate is 71, blood pressure 141/70, respiratory rate is 20, oxygen saturation 95% on 2 L. Sclerae anicteric. Oropharynx is pink without erythema. Carotids are 2+ without bruits. JVD is normal. Thyroid is normal. Cardiac Exam: S1 and S2 without any murmurs, rubs, or gallops. PMI is normal. Lungs are clear to auscultation bilaterally. There is no dullness to percussion. Abdomen is soft , nontender, and nondistended with normoactive bowel sounds. Extremities show 1 + edema. She has 2+ pulses in her femoral and radial. She has diminished pulses on her dorsalis pedis. The patient is awake, alert, and oriented. She moves all 4 extremities equally. DIAGNOSTIC STUDIES/LAB DATA: CBC, white count 7.4, hemoglobin 7.4, hematocrit 24, her baseline hematocrit is at 24 to 27. EKG shows A-paced, V-paced. IMPRESSION AND PLAN: This is a 58-year-old female with a history of ischemic cardiomyopathy, congestive heart failure, renal insufficiency, is admitted to the hospital with congestive heart failure. The patient has responded nicely to IV Lasix and IV nitroglycerine. Plan will be to wean off IV medications, wean off her nitroglycerin, substitute her oral torsemide with oral Bumex when she restart those medications. The patient has a very labile blood pressure. The patient does not appear to be on an JAIME or an ARB. I am not sure if they were stopped because of her renal status, however, I think it would be beneficial for the patient to be on an ARB for her congestive heart failure. [id number]/[facility] #: [id number] [facility] HOSPITALJaylen
[2018-04-27] MEDS: Morphine VIAL* 4 MG/ML VIAL (1 ml vial) IV PRN ×3 (03:29→14:21)
[2018-04-27] MEDS: Heparin VIAL(*) 5000 UNITS/ML VIAL (FIVE THOUSAND) SUBCUT SCH ×2 (05:33→14:21)
[2018-04-27 06:14] LABS: Hematocrit 24 % (35-47); Hemoglobin 7.4 g/dl (12.0-16.0); Mean Corpuscular HGB Conc 31 g/dl (31-36); Mean Corpuscular Hemoglobin 27 pg (27-31); Mean Corpuscular Volume 86 fL (80-97); Mean Platelet Volume 8.9 um3 (7.4-10.4); Platelet Count 304 10^3/ul (150-450); Red Blood Count 2.73 10^6/ul (4.00-5.40); Red Cell Distribution Width 20 % (10.5-15)
[2018-04-27 06:31] LABS: EGFR Non-African American 40.8 (>60)
[2018-04-27] MEDS: Insulin LISPRO* 1 UNITS UNIT SUBCUT SCH ×3 (07:38→19:50)
[2018-04-27] MEDS: Tiotropium CAP.INH* CAP.INH/18 MCG (USE ORDER SET !) INH SCH (07:43)
[2018-04-27] MEDS: Mometasone/Formoter 100/5 MDI INH SCH ×2 (07:45→19:57)
[2018-04-27] MEDS: Spironolactone TAB* 25 MG PO SCH (08:14)
[2018-04-27] MEDS: Docusate CAP* 100 MG PO SCH ×2 (08:15→21:06)
[2018-04-27] MEDS: hydrALAZINE TAB* 10 MG PO SCH ×3 (08:15→21:05)
[2018-04-27] MEDS: Isosorbide Mononitrate ER TAB* 30 MG PO SCH (08:15)
[2018-04-27] MEDS: Metolazone TAB* 5 MG PO SCH (08:15)
[2018-04-27] MEDS: Carvedilol TAB* 3.125 MG PO SCH ×2 (08:15→21:05)
[2018-04-27] MEDS: Aspirin EC TAB* 81 MG TAB.EC PO SCH (08:15)
[2018-04-27] MEDS: Ondansetron INJ* 2 MG/ML VIAL IV PRN ×2 (08:25→13:04)
[2018-04-27] MEDS: Furosemide IV* 10 MG/ML VIAL (40 MG) IV SLOW PU SCH (08:46)
--- NOTE | 2018-04-27 08:51 | PN ---
Subjective Date of Service: 04/27/18 Interval History: Complains of chest pain that began this morning "when it was still dark out." It is in the middle of her chest without radiation, associated with some nausea , no vomiting, occasional shortness of breath. + orthopnea. Has not been out of bed. No other complaints, feels she is getting better. R arm weakness has resolved, no headache. Leg swelling is improving. Family History: Unchanged from Admission Social History: Unchanged from Admission Past Medical History: Unchanged from Admission Objective Active Medications: Acetaminophen (Tylenol Tab*) 650 mg PO Q4H PRN PRN Reason: FEVER/PAIN Last Admin: 04/26/18 08:08 Dose: 650 mg Albuterol/Ipratropium (Duoneb (Albuterol 2.5 Mg/Ipratropium 0.5 Mg)) 1 neb INH Q4H PRN PRN Reason: WHEEZING Aspirin (Aspirin Ec Tab*) 81 mg PO QAM [facility] Last Admin: 04/27/18 08:15 Dose: 81 mg Atorvastatin Calcium (Lipitor*) 20 mg PO 2000 [facility] Last Admin: 04/26/18 21:05 Dose: 20 mg Carvedilol (Coreg Tab*) 3.125 mg PO BID [facility] Last Admin: 04/27/18 08:15 Dose: 3.125 mg Dextrose (D50w Syringe 50 Ml*) 12.5 gm IV PUSH .FOR FS < 60 - SS PRN PRN Reason: FS < 60 Docusate Sodium (Colace Cap*) 100 mg PO BID [facility] Last Admin: 04/27/18 08:15 Dose: 100 mg Furosemide (Lasix Iv*) 80 mg IV SLOW PU DAILY [facility] Last Admin: 04/27/18 08:46 Dose: 80 mg Gabapentin (Neurontin Cap(*)) 1,200 mg PO BEDTIME [facility] Last Admin: 04/26/18 21:05 Dose: 1,200 mg Heparin Sodium (Porcine) (Heparin Flush Port (Ivad)) 5 ml FLUSH DAILY [facility]; Protocol Last Admin: 04/27/18 05:36 Dose: 5 ml Heparin Sodium (Porcine) (Heparin Vial(*)) 5,000 units SUBCUT Q8HR [facility] Last Admin: 04/27/18 05:33 Dose: 5,000 units Hydralazine HCl (Apresoline Tab*) 10 mg PO TID [facility] Last Admin: 04/27/18 08:15 Dose: 10 mg Insulin Human Lispro (Humalog*) 0 - 10 units SUBCUT ACHS [facility]; Protocol Last Admin: 04/27/18 07:38 Dose: 1 units Isosorbide Mononitrate (Imdur Er Tab*) 30 mg PO DAILY [facility] Last Admin: 04/27/18 08:15 Dose: 30 mg Metolazone (Zaroxolyn Tab*) 5 mg PO [id number] [facility] Last Admin: 04/27/18 08:15 Dose: 5 mg Mometasone Furoate/Formoterol Fumar (Dulera 100/5 Mdi*) 2 puff INH BID [facility] Last Admin: 04/27/18 07:45 Dose: 2 puff Morphine Sulfate (Morphine Vial*) 2 mg IV Q4H PRN PRN Reason: PAIN - MILD Last Admin: 04/27/18 07:39 Dose: 2 mg Ondansetron HCl (Zofran Tab*) 4 mg PO Q6H PRN PRN Reason: NAUSEA Last Admin: 04/26/18 08:44 Dose: 4 mg Ondansetron HCl (Zofran Inj*) 4 mg IV Q4H PRN PRN Reason: NAUSEA Last Admin: 04/27/18 08:25 Dose: 4 mg Pramipexole Dihydrochloride (Mirapex Tab*) 0.5 mg PO BEDTIME [facility] Last Admin: 04/26/18 21:06 Dose: 0.5 mg Spironolactone (Aldactone Tab*) 12.5 mg PO DAILY [facility] Last Admin: 04/27/18 08:14 Dose: 12.5 mg Tiotropium [place] (Spiriva Cap.Inh*) 1 cap INH DAILY [facility] Last Admin: 04/27/18 07:43 Dose: 1 cap Vital Signs - 8 hr 04/27/18 04/27/18 04/27/18 01:00 01:15 01:30 Temperature Pulse Rate 78 62 63 Respiratory 15 15 16 Rate Blood Pressure 133/69 137/75 135/74 (mmHg) O2 Sat by Pulse 95 95 95 Oximetry 04/27/18 04/27/18 04/27/18 02:00 02:30 03:00 Temperature Pulse Rate 62 65 63 Respiratory 15 15 16 Rate Blood Pressure 126/69 116/61 137/72 (mmHg) O2 Sat by Pulse 94 95 94 Oximetry 04/27/18 04/27/18 04/27/18 03:29 03:30 03:48 Temperature 98 F Pulse Rate 69 Respiratory 16 22 Rate Blood Pressure 135/68 (mmHg) O2 Sat by Pulse 94 Oximetry 04/27/18 04/27/18 04/27/18 04:00 04:30 05:00 Temperature Pulse Rate 63 64 63 Respiratory 17 15 17 Rate Blood Pressure 123/68 119/60 138/70 (mmHg) O2 Sat by Pulse 93 93 95 Oximetry 04/27/18 04/27/18 04/27/18 05:30 06:00 06:30 Temperature Pulse Rate 63 63 66 Respiratory 15 15 16 Rate Blood Pressure 133/71 139/75 125/62 (mmHg) O2 Sat by Pulse 94 94 93 Oximetry 04/27/18 04/27/18 04/27/18 07:00 07:30 07:39 Temperature Pulse Rate 66 69 Respiratory 18 19 20 Rate Blood Pressure 150/87 135/82 (mmHg) O2 Sat by Pulse 94 94 Oximetry 04/27/18 04/27/18 04/27/18 07:47 07:51 08:00 Temperature 98.5 F Pulse Rate 68 67 Respiratory 17 16 16 Rate Blood Pressure 144/78 (mmHg) O2 Sat by Pulse 92 95 Oximetry 04/27/18 08:30 Temperature Pulse Rate 67 Respiratory 19 Rate Blood Pressure 139/83 (mmHg) O2 Sat by Pulse 92 Oximetry Oxygen Devices in Use Now: Nasal Cannula Appearance: alert, comfortable, well appearing, speaking in full sentences. Eyes: No Scleral Icterus Ears/Nose/Mouth/Throat: NL Teeth, Lips, Gums Neck: - - scars over both carotid arteries, + bruit, unable to see JVP Respiratory: Symmetrical Chest Expansion and Respiratory Effort, - - decreased breath sounds both bases, no rhonchi Cardiovascular: - - systolic murmur at the apex, pacer/icd left chest wall, port right chest wall Abdominal: NL Sounds; No Tenderness; No Distention, - - scar on ruq Lymphatic: No Cervical Adenopathy Extremities: - - R BKA, 1+ le edema Skin: No Rash or Ulcers Neurological: Alert and Oriented x 3, - - hand elderly sitter 4/5 rue, 5/5 lue, arm flexion 5/5 b/l Result Diagrams: 04/27/18 05:45 04/27/18 05:45 Microbiology and Other Data: Microbiology 04/25/18 18:30 Nasal Screen MRSA (PCR) - Final Nasal Mrsa Not Detected Assess/Plan/Problems-Billing Ms Galarza is a 58 yo F who has a history systolic CHF (ischemic CM), CAD, HTN, type II DM, stage III CKD, carotid artery disease, COPD, PVD who has been who was admitted 04/25 with worsening orthopnea, sob and was found to have decompensated heart failure. - Patient Problems (1) Heart failure, systolic, with acute decompensation Current Visit: Yes Status: Acute Code(s): I50.23 - ACUTE ON CHRONIC SYSTOLIC (CONGESTIVE) HEART FAILURE SNOMED Code(s): 116787404 Comment: Improving with iv lasix Plan for po bumex when transitioned to PO Down 4 kg from admission Not optimized due to lack of an JAIME/ARB; unclear why not--no indication from outpatient records Will hold off for now given episode of RUE weakness in setting of hypoperfusion but will attempt to add prior to discharge (2) Uncontrolled type II diabetes mellitus Current Visit: Yes Status: Acute Code(s): E11.65 - TYPE 2 DIABETES MELLITUS WITH HYPERGLYCEMIA SNOMED Code(s): 05092137 Comment: A1c > 10 Uses a pump at home Sugars are acceptable on sliding scale (3) Urinary retention Current Visit: Yes Status: Acute Code(s): R33.9 - RETENTION OF URINE, UNSPECIFIED SNOMED Code(s): 224818168 Comment: suspect neurogenic bladder from dm neuropathy (4) CAD (coronary artery disease) Current Visit: Yes Status: Chronic Code(s): I25.10 - ATHSCL HEART DISEASE OF [place] CORONARY ARTERY W/O ANG PCTRS SNOMED Code(s): 99279483 Comment: Troponin negative today; as were admission troponins. Continue coreg , ASA, lipitor. (5) CKD (chronic kidney disease) stage 3, GFR 30-59 ml/min Current Visit: Yes Status: Chronic Code(s): N18.3 - CHRONIC KIDNEY DISEASE, STAGE 3 (MODERATE) SNOMED Code(s): 863445813 Comment: Creatinine is at baseline. Continue to follow in setting of aggressive IV diuresis. (6) Peripheral vascular disease Current Visit: Yes Status: Chronic Code(s): I73.9 - PERIPHERAL VASCULAR DISEASE, UNSPECIFIED SNOMED Code(s): 263681645 Comment: Stable. Continue ASA/statin
[2018-04-27] MEDS ORDERED: Ciprofloxacin 400MG IVPREMIX(* 400 MG/200 ML BAG IVPB SCH (11:00)
--- NOTE | 2018-04-27 14:39 | PN ---
Subjective Date of Service: 04/27/18 - CC: pleuritic CP and SOB Interval History: THe patient says her breathing has improved significantly. She has pleuritic CP that persists, hurts a lot. She has nausea that has persisted for about a week. Her increased abdominal girth and leg swelling are improving. Medications Active Medications: Acetaminophen (Tylenol Tab*) 650 mg PO Q4H PRN PRN Reason: FEVER/PAIN Last Admin: 04/26/18 08:08 Dose: 650 mg Albuterol/Ipratropium (Duoneb (Albuterol 2.5 Mg/Ipratropium 0.5 Mg)) 1 neb INH Q4H PRN PRN Reason: WHEEZING Aspirin (Aspirin Ec Tab*) 81 mg PO QAM [facility] Last Admin: 04/27/18 08:15 Dose: 81 mg Atorvastatin Calcium (Lipitor*) 20 mg PO 1999 [facility] Last Admin: 04/26/18 21:05 Dose: 20 mg Carvedilol (Coreg Tab*) 3.125 mg PO BID [facility] Last Admin: 04/27/18 08:15 Dose: 3.125 mg Dextrose (D50w Syringe 50 Ml*) 12.5 gm IV PUSH .FOR FS < 60 - SS PRN PRN Reason: FS < 60 Docusate Sodium (Colace Cap*) 100 mg PO BID [facility] Last Admin: 04/27/18 08:15 Dose: 100 mg Furosemide (Lasix Iv*) 80 mg IV SLOW PU DAILY [facility] Last Admin: 04/27/18 08:46 Dose: 80 mg Gabapentin (Neurontin Cap(*)) 1,200 mg PO BEDTIME [facility] Last Admin: 04/26/18 21:05 Dose: 1,200 mg Heparin Sodium (Porcine) (Heparin Flush Port (Ivad)) 5 ml FLUSH DAILY [facility]; Protocol Last Admin: 04/27/18 10:47 Dose: Not Given Heparin Sodium (Porcine) (Heparin Vial(*)) 5,000 units SUBCUT Q8HR [facility] Last Admin: 04/27/18 14:21 Dose: 5,000 units Hydralazine HCl (Apresoline Tab*) 10 mg PO TID [facility] Last Admin: 04/27/18 14:21 Dose: 10 mg Insulin Human Lispro (Humalog*) 0 - 10 units SUBCUT ACHS [facility]; Protocol Last Admin: 04/27/18 11:40 Dose: 2 units Isosorbide Mononitrate (Imdur Er Tab*) 30 mg PO DAILY [facility] Last Admin: 04/27/18 08:15 Dose: 30 mg Metolazone (Zaroxolyn Tab*) 5 mg PO [id number]@0830 [facility] Last Admin: 04/27/18 08:15 Dose: 5 mg Mometasone Furoate/Formoterol Fumar (Dulera 100/5 Mdi*) 2 puff INH BID [facility] Last Admin: 04/27/18 07:45 Dose: 2 puff Morphine Sulfate (Morphine Vial*) 2 mg IV Q4H PRN PRN Reason: PAIN - MILD Last Admin: 04/27/18 14:21 Dose: 2 mg Ondansetron HCl (Zofran Tab*) 4 mg PO Q6H PRN PRN Reason: NAUSEA Last Admin: 04/26/18 08:44 Dose: 4 mg Ondansetron HCl (Zofran Inj*) 4 mg IV Q4H PRN PRN Reason: NAUSEA Last Admin: 04/27/18 13:04 Dose: 4 mg Pramipexole Dihydrochloride (Mirapex Tab*) 0.5 mg PO BEDTIME [facility] Last Admin: 04/26/18 21:06 Dose: 0.5 mg Spironolactone (Aldactone Tab*) 12.5 mg PO DAILY [facility] Last Admin: 04/27/18 08:14 Dose: 12.5 mg Tiotropium [place] (Spiriva Cap.Inh*) 1 cap INH DAILY [facility] Last Admin: 04/27/18 07:43 Dose: 1 cap Objective Vital Signs: Temp Pulse Resp BP Pulse Ox 98.6 F 67 14 139/83 92 04/27/18 12:00 04/27/18 08:30 04/27/18 14:21 04/27/18 08:30 04/27/18 08:30 Intake and Output Last 24 Hours 04/25/18 04/26/18 04/27/18 04/28/18 04:59 04:59 04:59 04:59 Intake Total 248 731.4 Output Total 805 2312 190 Balance -557 -1580.6 -190 Weight 152 lb 1.903 oz 150 lb 2.157 oz Intake: Medicated IV 148 151.4 CC - Nitroglycerine/ 148 151.4 Tridil Oral 100 580 Output: Urine 0 Mckeon 105 2312 190 Straight Cath 600 Residual 100 Mckeon 16 Fr 100 Other: Date of Last Bowel 04/24/2018 Movement Oxygen Devices in Use Now: Nasal Cannula Appearance: middle aged woman, sitting in bed 45 degrees, appears chrinically ill. Eyes: No Scleral Icterus, PERRLA Ears/Nose/Mouth/Throat: Clear Oropharnyx, - - dry mucosa Neck: Trachea Midline, No Thyroid Enlargement, Masses Respiratory: - - diminished breath sounds bases and dull to percussion, left worse than right, coarse rhonci and brochial breath sounds in upper lung baumann. Cardiovascular: RRR Abdominal: NL Sounds; No Tenderness; No Distention, No Hepatosplenomegaly Extremities: - - pruning of lower legs, trace residual edema. Neurological: Alert and Oriented x 3 Lines/Tubes/Other Access: Clean, Dry and Intact Other Access Laboratory Results: 04/27/18 05:45 04/27/18 05:45 INR (Anticoag Therapy) 0.94 (0.77-1.02) 04/25/18 12:15 Total Bilirubin 0.60 mg/dL (0.2-1.0) 04/25/18 12:15 AST 9 U/L (13-39) L 04/25/18 12:15 ALT 5 U/L (7-52) L 04/25/18 12:15 Alkaline Phosphatase 137 U/L (34-104) H 04/25/18 12:15 B-Natriuretic Peptide 1844 pg/mL (-100) H 04/25/18 12:15 Total Protein 6.0 g/dL (6.4-8.9) L 04/25/18 12:15 Albumin 2.7 g/dL (3.2-5.2) L 04/25/18 12:15 Globulin 3.3 g/dL (2-4) 04/25/18 12:15 Albumin/Globulin Ratio 0.8 (1-3) L 04/25/18 12:15 TSH 1.74 mcIU/mL (0.34-5.60) 04/25/18 12:15 04/25/18 04/25/18 04/25/18 12:15 15:15 18:00 Troponin I 0.02 0.02 0.01 04/27/18 08:35 Troponin I 0.01 04/27/18 04/27/18 04/27/18 05:45 05:45 07:25 WBC 7.0 RBC 2.73 L Hgb 7.4 L Hct 24 L MCV 86 MCH 27 MCHC 31 RDW 20 H Plt Count 304 MPV 8.9 Sodium 138 Potassium 4.3 Chloride 102 Carbon Dioxide 32 Anion Gap 4 BUN 29 H Creatinine 1.34 H Est GFR ( Amer) 49.3 Est GFR (Non-Af Amer) 40.8 BUN/Creatinine Ratio 21.6 H Glucose 133 H POC Glucose (mg/dL) 145 H Calcium 8.5 L Troponin I Diagnostic Imaging: Carotid Doppler 04/26/18: Bilateral CEA, no restenosis. EKG Data: Monitor: NSR, PAC's Assessment/Plan 58 yo vasculopath with hx NE, CABG, multiple peripheral interventions with ischemic CM, EF 40% in October, also valvular heart disease with MR and TR and chronic elevation of PA pressures/CHF admitted with decompensated heart failure with pulmonary edema and pleural effusions on CXR, elevated BNP and increased weight and hypoxemia. Comorbidities of DM Type II, CKD, COPD, anemia chronic disease (renal), neuropathy. Responding to aggressive diuresis. Pleuritic CP sounds as if from pleural effusions and left pleural effusion appears greater on exam than what was described on xray report. -I would continue with IV diuretics, lasix, metolazone and aldactone. -Consider adding ESR/CRP to look for possible inflammatory component to effusions and pain. -Normal troponins are reassuring wrt ischemic heart disease. If switch to oral diuretics in AM, agree with DR Villegas to consider Bumex instead of torsemide as apparently oral torsemide no efficacious as out patient. Check with outpatient MD's on ACEI/ARB eligibility, not in Dr Johnson's office notes.
[2018-04-27] MEDS: Gabapentin CAP(*) 300 MG PO SCH (21:05)
[2018-04-27] MEDS: Atorvastatin* 20 MG TAB PO SCH (21:06)
[2018-04-27] MEDS: Pramipexole TAB* 0.5 MG PO SCH (21:06)
[2018-04-28] MEDS: Insulin LISPRO* 1 UNITS UNIT SUBCUT SCH ×5 (00:45→21:56)
[2018-04-28] MEDS: Morphine VIAL* 4 MG/ML VIAL (1 ml vial) IV PRN ×4 (00:45→23:20)
[2018-04-28] MEDS: Heparin VIAL(*) 5000 UNITS/ML VIAL (FIVE THOUSAND) SUBCUT SCH ×4 (00:45→20:43)
--- NOTE | 2018-04-28 03:50 | PN ---
PROGRESS NOTE: DATE OF FOLLOWUP: 04/27/18 HISTORY: No acute overnight events. Michelle indicates that her right arm feels back to normal, which means that she still has some residual numbness related to neuropathy. However, she feels that her right leg is still heavy, but attributes this now to edema there. She has been having some chest pain that is felt to be stable for transfer to [address] [place] [address] by report of her nurse in the ICU. MEDICATIONS: 1. Tylenol 650 q.4 p.r.n. 2. DuoNebs p.r.n. 3. Aspirin 81 mg. 4. Lipitor 20 mg daily. 5. Carvedilol 3.125 mg b.i.d. 6. Colace 100 mg b.i.d. 7. Lasix 80 mg daily IV. 8. Gabapentin 1200 mg at bedtime. 9. Heparin 5000 units q. 8 hours as scheduled. 10. Hydralazine 10 mg t.i.d. 11. Humalog. 12. Imdur 30 mg daily. 13. Metolazone 5 mg Wednesday, Wednesday, Wednesday. 14. Dulera 2 puffs b.i.d. 15. Morphine 2 mg IV q.4 hours p.r.n. pain. 16. Zofran 4 mg q. 6 p.r.n. 17. Mirapex 0.5 mg at bedtime. 18. Aldactone 12.5 mg daily. 18. Spiriva daily. PHYSICAL EXAMINATION: Vital Signs: Temperature 98.6, blood pressure 139/83, heart rate 68, oxygen saturation 92% on room air. On general examination, she was lying in her hospital bed, asleep with her mouth wide open, but awoke easily to voice. She is in no acute distress. On focused neurologic examination, she has some giveaway weakness in her right arm , but sensation feels at baseline to her to light touch. In the right leg, she is able to lift the heel about 3 inches off the bed, but is not able to completely put her foot flat with her knee bent on the bed. She does not have significant lower extremity edema in that leg. Sensation is diminished to light touch in the right leg compared to the left. LABORATORY DATA: CBC shows a white count of 7, hemoglobin 7.4, hematocrit 24 and stable, platelet count 304. Chemistry panel shows a BUN of 29, creatinine of 1.34, essentially stable from yesterday. IMPRESSION: A 58-year-old woman with multiple vascular risk factors. She developed right-sided sensory and motor changes in her arm and leg yesterday. She has improved today, but not completely to her baseline. It was thought that some of this could have been related to relative hypoperfusion secondary to low blood pressure on nitro drip yesterday. Given that she still has some symptoms in her leg, I recommend repeat CT of the brain tomorrow to evaluate for any changes consistent with a new stroke. In the meantime, she should be kept on aspirin. Dr. Ponce will receive sign out on the patient though Dr. Woodward is on overnight tonight for any acute issues. [id number]/[facility] #: [id number] [place]
[2018-04-28 05:23] LABS: Hematocrit 25 % (35-47); Hemoglobin 7.8 g/dl (12.0-16.0); Mean Corpuscular HGB Conc 31 g/dl (31-36); Mean Corpuscular Hemoglobin 27 pg (27-31); Mean Corpuscular Volume 86 fL (80-97); Mean Platelet Volume 8.6 um3 (7.4-10.4); Platelet Count 329 10^3/ul (150-450); Red Blood Count 2.94 10^6/ul (4.00-5.40); Red Cell Distribution Width 21 % (10.5-15); White Blood Count 9.7 10^3/ul (3.5-10.8)
[2018-04-28 05:39] LABS: EGFR Non-African American 42.6 (>60)
[2018-04-28 05:45] LABS: ABS Basophils 0.1 10^3/ul (0-0.2); ABS Eosinophils 0.1 10^3/ul (0-0.6); ABS Monocytes 0.7 10^3/ul (0-0.8); ABS Neutrophils 7.8 10^3/ul (1.5-7.7); ABS Nucleated RBC 0 10^3/ul; Eosinophil % 1.5 % (0-6); Lymphocyte % 10.1 % (25-47); Nucleated Red Blood Cells % 0; Tear Drop Cells 1+
[2018-04-28] MEDS: Mometasone/Formoter 100/5 MDI INH SCH ×2 (07:35→20:49)
[2018-04-28] MEDS: Tiotropium CAP.INH* CAP.INH/18 MCG (USE ORDER SET !) INH SCH (07:35)
--- NOTE | 2018-04-28 08:37 | RAD ---
HISTORY: R leg heaviness, ? stroke COMPARISONS: April 26, 2015 TECHNIQUE: Multiple contiguous axial CT scans were obtained of the head without intravenous contrast. FINDINGS: HEMORRHAGE/INFARCT: There is no hemorrhage or acute infarct. MASSES/SHIFT: There is no mass or shift. EXTRA-AXIAL SPACES: There are no extra-axial fluid collections. SULCI AND VENTRICLES: The sulci and ventricles are normal in size and position for the patient's stated age. CEREBRUM: There are no focal parenchymal abnormalities. BRAINSTEM: There are no focal parenchymal abnormalities. CEREBELLUM: There are no focal parenchymal abnormalities. VESSELS: The vessels are grossly normal. PARANASAL SINUSES: The paranasal sinuses are clear. ORBITS: The orbits are unremarkable. BONES AND SOFT TISSUE: No bone or soft tissue abnormalities are noted. OTHER: None IMPRESSION: NO ACUTE INTRACRANIAL PATHOLOGY.
[2018-04-28] MEDS: hydrALAZINE TAB* 10 MG PO SCH ×3 (09:29→20:34)
[2018-04-28] MEDS: Isosorbide Mononitrate ER TAB* 30 MG PO SCH (09:29)
[2018-04-28] MEDS: Spironolactone TAB* 25 MG PO SCH (09:29)
[2018-04-28] MEDS: Aspirin EC TAB* 81 MG TAB.EC PO SCH (09:31)
[2018-04-28] MEDS: Docusate CAP* 100 MG PO SCH ×2 (09:31→20:34)
[2018-04-28] MEDS: Carvedilol TAB* 3.125 MG PO SCH ×2 (09:31→20:35)
[2018-04-28] MEDS: Furosemide IV* 10 MG/ML 10 ML VIAL (100 MG) IV SCH ×2 (09:31→20:32)
--- NOTE | 2018-04-28 12:01 | PN ---
Subjective Date of Service: 04/28/18 Interval History: f/u CHF breathing and renal function improving with diuresis still has anterior pleuritic CP Medications Active Medications: Acetaminophen (Tylenol Tab*) 650 mg PO Q4H PRN PRN Reason: FEVER/PAIN Last Admin: 04/26/18 08:08 Dose: 650 mg Albuterol/Ipratropium (Duoneb (Albuterol 2.5 Mg/Ipratropium 0.5 Mg)) 1 neb INH Q4H PRN PRN Reason: WHEEZING Aspirin (Aspirin Ec Tab*) 81 mg PO QAM [facility] Last Admin: 04/28/18 09:31 Dose: 81 mg Atorvastatin Calcium (Lipitor*) 20 mg PO 2000 [facility] Last Admin: 04/27/18 21:06 Dose: 20 mg Carvedilol (Coreg Tab*) 3.125 mg PO BID [facility] Last Admin: 04/28/18 09:31 Dose: 3.125 mg Dextrose (D50w Syringe 50 Ml*) 12.5 gm IV PUSH .FOR FS < 60 - SS PRN PRN Reason: FS < 60 Docusate Sodium (Colace Cap*) 100 mg PO BID [facility] Last Admin: 04/28/18 09:31 Dose: 100 mg Furosemide (Lasix Iv*) 80 mg IV BID [facility] Last Admin: 04/28/18 09:31 Dose: 80 mg Gabapentin (Neurontin Cap(*)) 1,200 mg PO BEDTIME [facility] Last Admin: 04/27/18 21:05 Dose: 1,200 mg Heparin Sodium (Porcine) (Heparin Flush Port (Ivad)) 5 ml FLUSH DAILY [facility]; Protocol Last Admin: 04/28/18 10:42 Dose: Not Given Heparin Sodium (Porcine) (Heparin Vial(*)) 5,000 units SUBCUT Q8HR [facility] Last Admin: 04/28/18 04:56 Dose: 5,000 units Hydralazine HCl (Apresoline Tab*) 10 mg PO TID [facility] Last Admin: 04/28/18 09:29 Dose: 10 mg Insulin Human Lispro (Humalog*) 0 - 10 units SUBCUT ACHS [facility]; Protocol Last Admin: 04/28/18 09:38 Dose: Not Given Isosorbide Mononitrate (Imdur Er Tab*) 30 mg PO DAILY [facility] Last Admin: 04/28/18 09:29 Dose: 30 mg Metolazone (Zaroxolyn Tab*) 5 mg PO MoWeFr@0830 [facility] Last Admin: 04/27/18 08:15 Dose: 5 mg Mometasone Furoate/Formoterol Fumar (Dulera 100/5 Mdi*) 2 puff INH BID [facility] Last Admin: 04/28/18 07:35 Dose: 2 puff Morphine Sulfate (Morphine Vial*) 2 mg IV Q4H PRN PRN Reason: PAIN - MILD Last Admin: 04/28/18 09:57 Dose: 2 mg Ondansetron HCl (Zofran Tab*) 4 mg PO Q6H PRN PRN Reason: NAUSEA Last Admin: 04/26/18 08:44 Dose: 4 mg Ondansetron HCl (Zofran Inj*) 4 mg IV Q4H PRN PRN Reason: NAUSEA Last Admin: 04/27/18 13:04 Dose: 4 mg Pramipexole Dihydrochloride (Mirapex Tab*) 0.5 mg PO BEDTIME [facility] Last Admin: 04/27/18 21:06 Dose: 0.5 mg Spironolactone (Aldactone Tab*) 12.5 mg PO DAILY [facility] Last Admin: 04/28/18 09:29 Dose: 12.5 mg Tiotropium [place] (Spiriva Cap.Inh*) 1 cap INH DAILY [facility] Last Admin: 04/28/18 07:35 Dose: 1 cap Objective Vital Signs: Temp Pulse Resp BP Pulse Ox 98.2 F 74 16 129/72 95 04/28/18 07:56 04/28/18 07:56 04/28/18 09:57 04/28/18 07:56 04/28/18 08:00 Oxygen Devices in Use Now: Nasal Cannula Appearance: chronically ill, nad, very pleasant Eyes: No Scleral Icterus, PERRLA Ears/Nose/Mouth/Throat: Clear Oropharnyx, - - dry mucosa Neck: Trachea Midline, No Thyroid Enlargement, Masses, - - mild jvd Respiratory: - - cta b/l Cardiovascular: RRR Abdominal: NL Sounds; No Tenderness; No Distention, No Hepatosplenomegaly Extremities: - - edematous thighs, s/p left aka Neurological: Alert and Oriented x 3 Lines/Tubes/Other Access: Clean, Dry and Intact Other Access Laboratory Results: 04/28/18 05:12 04/28/18 05:12 INR (Anticoag Therapy) 0.94 (0.77-1.02) 04/25/18 12:15 Total Bilirubin 0.60 mg/dL (0.2-1.0) 04/25/18 12:15 AST 9 U/L (13-39) L 04/25/18 12:15 ALT 5 U/L (7-52) L 04/25/18 12:15 Alkaline Phosphatase 137 U/L (34-104) H 04/25/18 12:15 B-Natriuretic Peptide 1844 pg/mL (-100) H 04/25/18 12:15 Total Protein 6.0 g/dL (6.4-8.9) L 04/25/18 12:15 Albumin 2.7 g/dL (3.2-5.2) L 04/25/18 12:15 Globulin 3.3 g/dL (2-4) 04/25/18 12:15 Albumin/Globulin Ratio 0.8 (1-3) L 04/25/18 12:15 TSH 1.74 mcIU/mL (0.34-5.60) 04/25/18 12:15 04/25/18 04/25/18 04/25/18 12:15 15:15 18:00 Troponin I 0.02 0.02 0.01 04/27/18 08:35 Troponin I 0.01 Diagnostic Imaging: Carotid Doppler 04/26/18: Bilateral CEA, no restenosis. Assessment/Plan 58 year old with history of DM, NC/CAD/CABG, Icd, lbbb multiple peripheral interventions with ischemic CM, EF 40%, MR, TR CKD, anemia followed by Dr. Cutler admitted with ADHF, responding to diuresis - I would continue with IV diuretics, metolazone and aldactone. - Not on AceI/ARB due to prior hyperkalemia, continue nitrate/hydralazine combination - Plan previously to change to oral diuretic to oral bumex once off IV diuretics. Would use 2 mg PO BID to start with, may be able to start tomorrow - Would repeat CXR prior to discharge, Thank you for allowing me to participate in the cardiovascular care of this patient, please do not hesitate to contact me with questions or concerns.
--- NOTE | 2018-04-28 17:08 | PN ---
Subjective Date of Service: 04/28/18 Interval History: No overnight events. O2 weaned off. Mckeon removed today and she could not urinate. 800cc urine found on bladder scan this afternoon. Still complains of chest pain with deep inspiration. Family History: Unchanged from Admission Social History: Unchanged from Admission Past Medical History: Unchanged from Admission Objective Active Medications: Acetaminophen (Tylenol Tab*) 650 mg PO Q4H PRN PRN Reason: FEVER/PAIN Last Admin: 04/26/18 08:08 Dose: 650 mg Albuterol/Ipratropium (Duoneb (Albuterol 2.5 Mg/Ipratropium 0.5 Mg)) 1 neb INH Q4H PRN PRN Reason: WHEEZING Aspirin (Aspirin Ec Tab*) 81 mg PO QAM [facility] Last Admin: 04/28/18 09:31 Dose: 81 mg Atorvastatin Calcium (Lipitor*) 20 mg PO 1999 [facility] Last Admin: 04/27/18 21:06 Dose: 20 mg Carvedilol (Coreg Tab*) 3.125 mg PO BID [facility] Last Admin: 04/28/18 09:31 Dose: 3.125 mg Dextrose (D50w Syringe 50 Ml*) 12.5 gm IV PUSH .FOR FS < 60 - SS PRN PRN Reason: FS < 60 Docusate Sodium (Colace Cap*) 100 mg PO BID [facility] Last Admin: 04/28/18 09:31 Dose: 100 mg Furosemide (Lasix Iv*) 80 mg IV BID [facility] Last Admin: 04/28/18 09:31 Dose: 80 mg Gabapentin (Neurontin Cap(*)) 1,200 mg PO BEDTIME [facility] Last Admin: 04/27/18 21:05 Dose: 1,200 mg Heparin Sodium (Porcine) (Heparin Flush Port (Ivad)) 5 ml FLUSH DAILY [facility]; Protocol Last Admin: 04/28/18 10:42 Dose: Not Given Heparin Sodium (Porcine) (Heparin Vial(*)) 5,000 units SUBCUT Q8HR [facility] Last Admin: 04/28/18 13:16 Dose: 5,000 units Hydralazine HCl (Apresoline Tab*) 10 mg PO TID [facility] Last Admin: 04/28/18 13:16 Dose: 10 mg Insulin Human Lispro (Humalog*) 0 - 10 units SUBCUT ACHS [facility]; Protocol Last Admin: 04/28/18 13:16 Dose: 4 units Isosorbide Mononitrate (Imdur Er Tab*) 30 mg PO DAILY [facility] Last Admin: 04/28/18 09:29 Dose: 30 mg Metolazone (Zaroxolyn Tab*) 5 mg PO MoWeFr@0830 [facility] Last Admin: 04/27/18 08:15 Dose: 5 mg Mometasone Furoate/Formoterol Fumar (Dulera 100/5 Mdi*) 2 puff INH BID [facility] Last Admin: 04/28/18 07:35 Dose: 2 puff Morphine Sulfate (Morphine Vial*) 2 mg IV Q4H PRN PRN Reason: PAIN - MILD Last Admin: 04/28/18 09:57 Dose: 2 mg Ondansetron HCl (Zofran Tab*) 4 mg PO Q6H PRN PRN Reason: NAUSEA Last Admin: 04/26/18 08:44 Dose: 4 mg Ondansetron HCl (Zofran Inj*) 4 mg IV Q4H PRN PRN Reason: NAUSEA Last Admin: 04/27/18 13:04 Dose: 4 mg Pramipexole Dihydrochloride (Mirapex Tab*) 0.5 mg PO BEDTIME [facility] Last Admin: 04/27/18 21:06 Dose: 0.5 mg Spironolactone (Aldactone Tab*) 12.5 mg PO DAILY [facility] Last Admin: 04/28/18 09:29 Dose: 12.5 mg Tiotropium [place] (Spiriva Cap.Inh*) 1 cap INH DAILY [facility] Last Admin: 04/28/18 07:35 Dose: 1 cap Vital Signs - 8 hr 04/28/18 04/28/18 04/28/18 09:57 11:49 13:06 Temperature 98.9 F Pulse Rate 73 Respiratory 16 16 16 Rate Blood Pressure 107/61 (mmHg) O2 Sat by Pulse 96 Oximetry Oxygen Devices in Use Now: Nasal Cannula Appearance: alert, sitting in recliner Eyes: No Scleral Icterus Ears/Nose/Mouth/Throat: NL Teeth, Lips, Gums Neck: NL Appearance and Movements; NL JVP Respiratory: Symmetrical Chest Expansion and Respiratory Effort, Clear to Auscultation Abdominal: NL Sounds; No Tenderness; No Distention Lymphatic: No Cervical Adenopathy Extremities: No Edema Skin: No Rash or Ulcers Neurological: Alert and Oriented x 3 Result Diagrams: 04/28/18 05:12 04/28/18 05:12 Microbiology and Other Data: Microbiology 04/25/18 18:30 Nasal Screen MRSA (PCR) - Final Nasal Mrsa Not Detected Assess/Plan/Problems-Billing Ms Galarza is a 58 yo F who has a history systolic CHF (ischemic CM), CAD, HTN, type II DM, stage III CKD, carotid artery disease, COPD, PVD who has been who was admitted 04/25 with worsening orthopnea, sob and was found to have decompensated heart failure. - Patient Problems (1) Heart failure, systolic, with acute decompensation Current Visit: Yes Status: Acute Code(s): I50.23 - ACUTE ON CHRONIC SYSTOLIC (CONGESTIVE) HEART FAILURE SNOMED Code(s): 869428566 Comment: Improving with iv lasix Plan for po bumex when transitioned to PO Down 3 kg from admission Not optimized due to lack of an JAIME/ARB; unclear why not--no indication from outpatient records Will hold off for now given episode of RUE weakness in setting of hypoperfusion but will attempt to add prior to discharge (2) Uncontrolled type II diabetes mellitus Current Visit: Yes Status: Acute Code(s): E11.65 - TYPE 2 DIABETES MELLITUS WITH HYPERGLYCEMIA SNOMED Code(s): 77285768 Comment: A1c > 10 Uses a pump at home Sugars are acceptable on sliding scale (3) Urinary retention Current Visit: Yes Status: Acute Code(s): R33.9 - RETENTION OF URINE, UNSPECIFIED SNOMED Code(s): 827334750 Comment: suspect neurogenic bladder from dm neuropathy failed voiding trial today start oxybutynin (4) CAD (coronary artery disease) Current Visit: Yes Status: Chronic Code(s): I25.10 - ATHSCL HEART DISEASE OF [place] CORONARY ARTERY W/O ANG PCTRS SNOMED Code(s): 39419596 Comment: Troponins ahve been negative. Continue coreg, ASA, lipitor. (5) CKD (chronic kidney disease) stage 3, GFR 30-59 ml/min Current Visit: Yes Status: Chronic Code(s): N18.3 - CHRONIC KIDNEY DISEASE, STAGE 3 (MODERATE) SNOMED Code(s): 343687573 Comment: Creatinine is at baseline. Continue to follow in setting of aggressive IV diuresis. (6) Peripheral vascular disease Current Visit: Yes Status: Chronic Code(s): I73.9 - PERIPHERAL VASCULAR DISEASE, UNSPECIFIED SNOMED Code(s): 192105155 Comment: Stable. Continue ASA/statin
[2018-04-28] MEDS: Oxybutynin TAB* 5 MG PO SCH (17:39)
[2018-04-28] MEDS: Gabapentin CAP(*) 300 MG PO SCH (20:34)
[2018-04-28] MEDS: Pramipexole TAB* 0.5 MG PO SCH (20:35)
[2018-04-28] MEDS: Atorvastatin* 20 MG TAB PO SCH (20:35)
[2018-04-29] MEDS: Heparin VIAL(*) 5000 UNITS/ML VIAL (FIVE THOUSAND) SUBCUT SCH ×3 (05:56→21:40)
[2018-04-29] MEDS: Oxybutynin TAB* 5 MG PO SCH (08:26)
[2018-04-29] MEDS: Spironolactone TAB* 25 MG PO SCH (08:26)
[2018-04-29] MEDS: Isosorbide Mononitrate ER TAB* 30 MG PO SCH (08:26)
[2018-04-29] MEDS: hydrALAZINE TAB* 10 MG PO SCH ×3 (08:26→21:39)
[2018-04-29] MEDS: Docusate CAP* 100 MG PO SCH ×2 (08:26→21:39)
[2018-04-29] MEDS: Carvedilol TAB* 3.125 MG PO SCH ×2 (08:26→21:39)
[2018-04-29] MEDS: Aspirin EC TAB* 81 MG TAB.EC PO SCH (08:27)
[2018-04-29] MEDS: Insulin LISPRO* 1 UNITS UNIT SUBCUT SCH ×4 (08:33→21:39)
[2018-04-29] MEDS: Metolazone TAB* 5 MG PO SCH (08:45)
[2018-04-29] MEDS: Tiotropium CAP.INH* CAP.INH/18 MCG (USE ORDER SET !) INH SCH (08:50)
[2018-04-29] MEDS: Mometasone/Formoter 100/5 MDI INH SCH ×2 (08:50→20:47)
[2018-04-29] MEDS: Furosemide IV* 10 MG/ML 10 ML VIAL (100 MG) IV SCH (09:38)
[2018-04-29] MEDS ORDERED: Furosemide IV* 10 MG/ML 10 ML VIAL (100 MG) IV ONE (12:38)
--- NOTE | 2018-04-29 12:45 | PN ---
Subjective Date of Service: 04/29/18 Interval History: f/u CHF Patient feeling a little better, remains edematous, frustrated not diuresing more Only has central pleuritic discomfort if takes a deep breath No outright dyspnea at rest, no cp received metolazone this AM Medications Active Medications: Acetaminophen (Tylenol Tab*) 650 mg PO Q4H PRN PRN Reason: FEVER/PAIN Last Admin: 04/26/18 08:08 Dose: 650 mg Albuterol/Ipratropium (Duoneb (Albuterol 2.5 Mg/Ipratropium 0.5 Mg)) 1 neb INH Q4H PRN PRN Reason: WHEEZING Aspirin (Aspirin Ec Tab*) 81 mg PO QAM [facility] Last Admin: 04/29/18 08:27 Dose: 81 mg Atorvastatin Calcium (Lipitor*) 20 mg PO 1999 [facility] Last Admin: 04/28/18 20:35 Dose: 20 mg Carvedilol (Coreg Tab*) 3.125 mg PO BID [facility] Last Admin: 04/29/18 08:26 Dose: 3.125 mg Dextrose (D50w Syringe 50 Ml*) 12.5 gm IV PUSH .FOR FS < 60 - SS PRN PRN Reason: FS < 60 Docusate Sodium (Colace Cap*) 100 mg PO BID [facility] Last Admin: 04/29/18 08:26 Dose: 100 mg Furosemide (Lasix Iv*) 80 mg IV BID [facility] Last Admin: 04/29/18 09:38 Dose: 80 mg Furosemide (Lasix Iv*) 80 mg IV ONCE ONE Stop: 04/29/18 12:39 Gabapentin (Neurontin Cap(*)) 1,200 mg PO BEDTIME [facility] Last Admin: 04/28/18 20:34 Dose: 1,200 mg Heparin Sodium (Porcine) (Heparin Flush Port (Ivad)) 5 ml FLUSH DAILY [facility]; Protocol Last Admin: 04/29/18 08:33 Dose: 5 ml Heparin Sodium (Porcine) (Heparin Vial(*)) 5,000 units SUBCUT Q8HR [facility] Last Admin: 04/29/18 05:56 Dose: 5,000 units Hydralazine HCl (Apresoline Tab*) 10 mg PO TID [facility] Last Admin: 04/29/18 08:26 Dose: 10 mg Insulin Human Lispro (Humalog*) 0 - 10 units SUBCUT ACHS [facility]; Protocol Last Admin: 04/29/18 12:40 Dose: 8 units Isosorbide Mononitrate (Imdur Er Tab*) 30 mg PO DAILY [facility] Last Admin: 04/29/18 08:26 Dose: 30 mg Metolazone (Zaroxolyn Tab*) 5 mg PO MoWeFr@0830 [facility] Last Admin: 04/29/18 08:45 Dose: 5 mg Mometasone Furoate/Formoterol Fumar (Dulera 100/5 Mdi*) 2 puff INH BID [facility] Last Admin: 04/29/18 08:50 Dose: 2 puff Morphine Sulfate (Morphine Vial*) 2 mg IV Q4H PRN PRN Reason: PAIN - MILD Last Admin: 04/28/18 23:20 Dose: 2 mg Ondansetron HCl (Zofran Tab*) 4 mg PO Q6H PRN PRN Reason: NAUSEA Last Admin: 04/26/18 08:44 Dose: 4 mg Ondansetron HCl (Zofran Inj*) 4 mg IV Q4H PRN PRN Reason: NAUSEA Last Admin: 04/27/18 13:04 Dose: 4 mg Oxybutynin Chloride (Ditropan Tab*) 5 mg PO DAILY [facility] Last Admin: 04/29/18 08:26 Dose: 5 mg Pramipexole Dihydrochloride (Mirapex Tab*) 0.5 mg PO BEDTIME [facility] Last Admin: 04/28/18 20:35 Dose: 0.5 mg Spironolactone (Aldactone Tab*) 12.5 mg PO DAILY [facility] Last Admin: 04/29/18 08:26 Dose: 12.5 mg Tiotropium [place] (Spiriva Cap.Inh*) 1 cap INH DAILY [facility] Last Admin: 04/29/18 08:50 Dose: 1 cap Objective Vital Signs: Temp Pulse Resp BP Pulse Ox 98.3 F 81 16 134/69 93 04/29/18 11:32 04/29/18 11:32 04/29/18 11:32 04/29/18 11:32 04/29/18 11:32 Oxygen Devices in Use Now: Nasal Cannula Appearance: chronically ill, nad, very pleasant Eyes: No Scleral Icterus, PERRLA Ears/Nose/Mouth/Throat: Clear Oropharnyx, - - dry mucosa Neck: Trachea Midline, No Thyroid Enlargement, Masses, - - mild jvd Respiratory: - - cta b/l Cardiovascular: RRR Abdominal: NL Sounds; No Tenderness; No Distention, No Hepatosplenomegaly Extremities: - - edematous thighs and right leg 1+, s/p left aka Neurological: Alert and Oriented x 3 Lines/Tubes/Other Access: Clean, Dry and Intact Other Access Laboratory Results: 04/28/18 05:12 04/28/18 05:12 INR (Anticoag Therapy) 0.94 (0.77-1.02) 04/25/18 12:15 Total Bilirubin 0.60 mg/dL (0.2-1.0) 04/25/18 12:15 AST 9 U/L (13-39) L 04/25/18 12:15 ALT 5 U/L (7-52) L 04/25/18 12:15 Alkaline Phosphatase 137 U/L (34-104) H 04/25/18 12:15 B-Natriuretic Peptide 1844 pg/mL (-100) H 04/25/18 12:15 Total Protein 6.0 g/dL (6.4-8.9) L 04/25/18 12:15 Albumin 2.7 g/dL (3.2-5.2) L 04/25/18 12:15 Globulin 3.3 g/dL (2-4) 04/25/18 12:15 Albumin/Globulin Ratio 0.8 (1-3) L 04/25/18 12:15 TSH 1.74 mcIU/mL (0.34-5.60) 04/25/18 12:15 04/25/18 04/25/18 04/25/18 12:15 15:15 18:00 Troponin I 0.02 0.02 0.01 04/27/18 08:35 Troponin I 0.01 Diagnostic Imaging: Carotid Doppler 04/26/18: Bilateral CEA, no restenosis. Assessment/Plan 58 year old with history of DM, CT/CAD/CABG, Icd, lbbb multiple peripheral interventions with ischemic CM, EF 40%, MR, TR CKD, anemia followed by Dr. Cutler admitted with ADHF/CRS, responding to IV diuresis - I would continue with IV diuretics, metolazone and aldactone. - Not on AceI/ARB due to prior hyperkalemia, continue nitrate/hydralazine combination - Plan previously to change to oral diuretic to oral bumex once off IV diuretics. Would use 2 mg PO BID to start with - Give an extra 80 mg IV x 1 now (ordered) - Would repeat CXR prior to discharge Thank you for allowing me to participate in the cardiovascular care of this patient, please do not hesitate to contact me with questions or concerns.
[2018-04-29 13:27] LABS: EGFR Non-African American 33.2 (>60)
[2018-04-29] MEDS: Morphine VIAL* 4 MG/ML VIAL (1 ml vial) IV PRN (14:56)
[2018-04-29] MEDS ORDERED: Polyethylene Glycol 3350* 17 GM PACKET PO PRN (16:58)
[2018-04-29] MEDS: Gabapentin CAP(*) 300 MG PO SCH (21:38)
[2018-04-29] MEDS: Atorvastatin* 20 MG TAB PO SCH (21:38)
[2018-04-29] MEDS: Pramipexole TAB* 0.5 MG PO SCH (21:38)
[2018-04-30] MEDS: Morphine VIAL* 4 MG/ML VIAL (1 ml vial) IV PRN ×3 (01:19→19:59)
[2018-04-30] MEDS: Heparin VIAL(*) 5000 UNITS/ML VIAL (FIVE THOUSAND) SUBCUT SCH ×3 (05:41→20:00)
[2018-04-30] MEDS: Tiotropium CAP.INH* CAP.INH/18 MCG (USE ORDER SET !) INH SCH (07:26)
[2018-04-30] MEDS: Mometasone/Formoter 100/5 MDI INH SCH ×2 (07:26→20:44)
[2018-04-30 08:08] LABS: ABS Basophils 0.1 10^3/ul (0-0.2); ABS Eosinophils 0.2 10^3/ul (0-0.6); ABS Lymphocytes 1.2 10^3/ul (1.0-4.8); ABS Monocytes 0.5 10^3/ul (0-0.8); ABS Neutrophils 6.5 10^3/ul (1.5-7.7); ABS Nucleated RBC 0 10^3/ul; Eosinophil % 2.8 % (0-6); Hematocrit 25 % (35-47); Hemoglobin 7.9 g/dl (12.0-16.0); Lymphocyte % 14.3 % (25-47); Mean Corpuscular HGB Conc 31 g/dl (31-36); Mean Corpuscular Hemoglobin 27 pg (27-31); Mean Corpuscular Volume 85 fL (80-97); Nucleated Red Blood Cells % 0; Platelet Count 297 10^3/ul (150-450); Red Blood Count 2.95 10^6/ul (4.00-5.40); Red Cell Distribution Width 21 % (10.5-15); White Blood Count 8.7 10^3/ul (3.5-10.8)
[2018-04-30 08:22] LABS: EGFR Non-African American 35.8 (>60)
[2018-04-30] MEDS: Docusate CAP* 100 MG PO SCH ×2 (09:01→19:22)
[2018-04-30] MEDS: hydrALAZINE TAB* 10 MG PO SCH ×3 (09:01→19:25)
[2018-04-30] MEDS: Spironolactone TAB* 25 MG PO SCH (09:01)
[2018-04-30] MEDS: Aspirin EC TAB* 81 MG TAB.EC PO SCH (09:01)
[2018-04-30] MEDS: Carvedilol TAB* 3.125 MG PO SCH ×2 (09:02→19:22)
[2018-04-30] MEDS: Isosorbide Mononitrate ER TAB* 30 MG PO SCH (09:02)
[2018-04-30] MEDS: Oxybutynin TAB* 5 MG PO SCH (09:02)
[2018-04-30] MEDS: Insulin LISPRO* 1 UNITS UNIT SUBCUT SCH ×4 (09:02→21:06)
--- NOTE | 2018-04-30 09:29 | PN ---
Subjective Date of Service: 04/29/18 Interval History: No overnight events, diuresing well, but still complains of leg heaviness and pleuritic chest discomfort. Family History: Unchanged from Admission Social History: Unchanged from Admission Past Medical History: Unchanged from Admission Objective Active Medications: Acetaminophen (Tylenol Tab*) 650 mg PO Q4H PRN PRN Reason: FEVER/PAIN Last Admin: 04/26/18 08:08 Dose: 650 mg Albuterol/Ipratropium (Duoneb (Albuterol 2.5 Mg/Ipratropium 0.5 Mg)) 1 neb INH Q4H PRN PRN Reason: WHEEZING Aspirin (Aspirin Ec Tab*) 81 mg PO QAM [facility] Last Admin: 04/30/18 09:01 Dose: 81 mg Atorvastatin Calcium (Lipitor*) 20 mg PO 1999 [facility] Last Admin: 04/29/18 21:38 Dose: 20 mg Bumetanide (Bumex Tab*) 2 mg PO BID [facility] Carvedilol (Coreg Tab*) 3.125 mg PO BID [facility] Last Admin: 04/30/18 09:02 Dose: 3.125 mg Dextrose (D50w Syringe 50 Ml*) 12.5 gm IV PUSH .FOR FS < 60 - SS PRN PRN Reason: FS < 60 Docusate Sodium (Colace Cap*) 100 mg PO BID [facility] Last Admin: 04/30/18 09:01 Dose: 100 mg Gabapentin (Neurontin Cap(*)) 1,200 mg PO BEDTIME [facility] Last Admin: 04/29/18 21:38 Dose: 1,200 mg Heparin Sodium (Porcine) (Heparin Flush Port (Ivad)) 5 ml FLUSH DAILY [facility]; Protocol Last Admin: 04/30/18 09:02 Dose: 5 ml Heparin Sodium (Porcine) (Heparin Vial(*)) 5,000 units SUBCUT Q8HR [facility] Last Admin: 04/30/18 05:41 Dose: 5,000 units Hydralazine HCl (Apresoline Tab*) 10 mg PO TID [facility] Last Admin: 04/30/18 09:01 Dose: 10 mg Insulin Human Lispro (Humalog*) 0 - 10 units SUBCUT ACHS [facility]; Protocol Last Admin: 04/30/18 09:02 Dose: 4 units Isosorbide Mononitrate (Imdur Er Tab*) 30 mg PO DAILY [facility] Last Admin: 04/30/18 09:02 Dose: 30 mg Metolazone (Zaroxolyn Tab*) 5 mg PO MoWeFr@0830 [facility] Last Admin: 04/29/18 08:45 Dose: 5 mg Mometasone Furoate/Formoterol Fumar (Dulera 100/5 Mdi*) 2 puff INH BID [facility] Last Admin: 04/30/18 07:26 Dose: 2 puff Morphine Sulfate (Morphine Vial*) 2 mg IV Q4H PRN PRN Reason: PAIN - MILD Last Admin: 04/30/18 01:19 Dose: 2 mg Ondansetron HCl (Zofran Tab*) 4 mg PO Q6H PRN PRN Reason: NAUSEA Last Admin: 04/26/18 08:44 Dose: 4 mg Ondansetron HCl (Zofran Inj*) 4 mg IV Q4H PRN PRN Reason: NAUSEA Last Admin: 04/27/18 13:04 Dose: 4 mg Oxybutynin Chloride (Ditropan Tab*) 5 mg PO DAILY [facility] Last Admin: 04/30/18 09:02 Dose: 5 mg Polyethylene Glycol/Electrolytes (Miralax*) 17 gm PO DAILY PRN PRN Reason: CONSTIPATION Pramipexole Dihydrochloride (Mirapex Tab*) 0.5 mg PO BEDTIME [facility] Last Admin: 04/29/18 21:38 Dose: 0.5 mg Spironolactone (Aldactone Tab*) 12.5 mg PO DAILY [facility] Last Admin: 04/30/18 09:01 Dose: 12.5 mg Tiotropium [place] (Spiriva Cap.Inh*) 1 cap INH DAILY [facility] Last Admin: 04/30/18 07:26 Dose: 1 cap Vital Signs - 8 hr 04/30/1818 04/30/18 02:20 04:06 07:28 Temperature 98.3 F Pulse Rate 69 82 Respiratory 18 20 14 Rate Blood Pressure 143/70 (mmHg) O2 Sat by Pulse 98 96 Oximetry 04/30/18 07:38 Temperature 98.6 F Pulse Rate 64 Respiratory 16 Rate Blood Pressure 132/68 (mmHg) O2 Sat by Pulse 93 Oximetry Oxygen Devices in Use Now: None Appearance: alert, no distress, resting comfortably Eyes: No Scleral Icterus Ears/Nose/Mouth/Throat: NL Teeth, Lips, Gums Respiratory: Symmetrical Chest Expansion and Respiratory Effort, Clear to Auscultation Lymphatic: No Cervical Adenopathy Extremities: - - 2+ edema. l bka Neurological: Alert and Oriented x 3 Result Diagrams: 04/30/18 07:50 04/30/18 07:50 Microbiology and Other Data: Microbiology 04/25/18 18:30 Nasal Screen MRSA (PCR) - Final Nasal Mrsa Not Detected Assess/Plan/Problems-Billing Ms Galarza is a 58 yo F who has a history systolic CHF (ischemic CM), CAD, HTN, type II DM, stage III CKD, carotid artery disease, COPD, PVD who has been who was admitted 04/25 with worsening orthopnea, sob and was found to have decompensated heart failure. - Patient Problems (1) Heart failure, systolic, with acute decompensation Current Visit: Yes Status: Acute Code(s): I50.23 - ACUTE ON CHRONIC SYSTOLIC (CONGESTIVE) HEART FAILURE SNOMED Code(s): 218177991 Comment: Improving with iv lasix, got extra dose today Plan for po bumex when transitioned to PO Should have an JAIME, will try to add tomorrow (2) Uncontrolled type II diabetes mellitus Current Visit: Yes Status: Acute Code(s): E11.65 - TYPE 2 DIABETES MELLITUS WITH HYPERGLYCEMIA SNOMED Code(s): 08727170 Comment: A1c > 10 Uses a pump at home (3) Urinary retention Current Visit: Yes Status: Acute Code(s): R33.9 - RETENTION OF URINE, UNSPECIFIED SNOMED Code(s): 128273124 Comment: suspect neurogenic bladder from dm neuropathy failed voiding trial today start oxybutynin (4) CAD (coronary artery disease) Current Visit: Yes Status: Chronic Code(s): I25.10 - ATHSCL HEART DISEASE OF [place] CORONARY ARTERY W/O ANG PCTRS SNOMED Code(s): 16944730 Comment: Troponins ahve been negative. Continue coreg, ASA, lipitor. (5) CKD (chronic kidney disease) stage 3, GFR 30-59 ml/min Current Visit: Yes Status: Chronic Code(s): N18.3 - CHRONIC KIDNEY DISEASE, STAGE 3 (MODERATE) SNOMED Code(s): 404048648 Comment: Creatinine is at baseline. Continue to follow in setting of aggressive IV diuresis. (6) Peripheral vascular disease Current Visit: Yes Status: Chronic Code(s): I73.9 - PERIPHERAL VASCULAR DISEASE, UNSPECIFIED SNOMED Code(s): 092915937 Comment: Stable. Continue ASA/statin (7) Urinary retention Current Visit: Yes Status: Acute Code(s): R33.9 - RETENTION OF URINE, UNSPECIFIED SNOMED Code(s): 905394881 Comment: elijah neurogenic bladder failed voiding trial 2 days ago started oxybutynin
--- NOTE | 2018-04-30 09:43 | PN ---
Subjective Date of Service: 04/30/18 Interval History: New complaint of pain in her left 1st digit. She doesn't know of a gout history. No fevers. Breathing is improving. No pain elsewhere. Family History: Unchanged from Admission Social History: Unchanged from Admission Past Medical History: Unchanged from Admission Objective Active Medications: Acetaminophen (Tylenol Tab*) 650 mg PO Q4H PRN PRN Reason: FEVER/PAIN Last Admin: 04/26/18 08:08 Dose: 650 mg Albuterol/Ipratropium (Duoneb (Albuterol 2.5 Mg/Ipratropium 0.5 Mg)) 1 neb INH Q4H PRN PRN Reason: WHEEZING Aspirin (Aspirin Ec Tab*) 81 mg PO QAM [facility] Last Admin: 04/30/18 09:01 Dose: 81 mg Atorvastatin Calcium (Lipitor*) 20 mg PO 1999 [facility] Last Admin: 04/29/18 21:38 Dose: 20 mg Bumetanide (Bumex Tab*) 2 mg PO BID [facility] Carvedilol (Coreg Tab*) 3.125 mg PO BID [facility] Last Admin: 04/30/18 09:02 Dose: 3.125 mg Dextrose (D50w Syringe 50 Ml*) 12.5 gm IV PUSH .FOR FS < 60 - SS PRN PRN Reason: FS < 60 Docusate Sodium (Colace Cap*) 100 mg PO BID [facility] Last Admin: 04/30/18 09:01 Dose: 100 mg Gabapentin (Neurontin Cap(*)) 1,200 mg PO BEDTIME [facility] Last Admin: 04/29/18 21:38 Dose: 1,200 mg Heparin Sodium (Porcine) (Heparin Flush Port (Ivad)) 5 ml FLUSH DAILY [facility]; Protocol Last Admin: 04/30/18 09:02 Dose: 5 ml Heparin Sodium (Porcine) (Heparin Vial(*)) 5,000 units SUBCUT Q8HR [facility] Last Admin: 04/30/18 05:41 Dose: 5,000 units Hydralazine HCl (Apresoline Tab*) 10 mg PO TID [facility] Last Admin: 04/30/18 09:01 Dose: 10 mg Insulin Human Lispro (Humalog*) 0 - 10 units SUBCUT ACHS [facility]; Protocol Last Admin: 04/30/18 09:02 Dose: 4 units Isosorbide Mononitrate (Imdur Er Tab*) 30 mg PO DAILY [facility] Last Admin: 04/30/18 09:02 Dose: 30 mg Metolazone (Zaroxolyn Tab*) 5 mg PO MoWeFr@0830 [facility] Last Admin: 04/29/18 08:45 Dose: 5 mg Mometasone Furoate/Formoterol Fumar (Dulera 100/5 Mdi*) 2 puff INH BID [facility] Last Admin: 04/30/18 07:26 Dose: 2 puff Morphine Sulfate (Morphine Vial*) 2 mg IV Q4H PRN PRN Reason: PAIN - MILD Last Admin: 04/30/18 01:19 Dose: 2 mg Ondansetron HCl (Zofran Tab*) 4 mg PO Q6H PRN PRN Reason: NAUSEA Last Admin: 04/26/18 08:44 Dose: 4 mg Ondansetron HCl (Zofran Inj*) 4 mg IV Q4H PRN PRN Reason: NAUSEA Last Admin: 04/27/18 13:04 Dose: 4 mg Oxybutynin Chloride (Ditropan Tab*) 5 mg PO DAILY [facility] Last Admin: 04/30/18 09:02 Dose: 5 mg Polyethylene Glycol/Electrolytes (Miralax*) 17 gm PO DAILY PRN PRN Reason: CONSTIPATION Pramipexole Dihydrochloride (Mirapex Tab*) 0.5 mg PO BEDTIME [facility] Last Admin: 04/29/18 21:38 Dose: 0.5 mg Spironolactone (Aldactone Tab*) 12.5 mg PO DAILY [facility] Last Admin: 04/30/18 09:01 Dose: 12.5 mg Tiotropium [place] (Spiriva Cap.Inh*) 1 cap INH DAILY [facility] Last Admin: 04/30/18 07:26 Dose: 1 cap Vital Signs - 8 hr 04/30/18 04/30/18 04/30/18 02:20 04:06 07:28 Temperature 98.3 F Pulse Rate 69 82 Respiratory 18 20 14 Rate Blood Pressure 143/70 (mmHg) O2 Sat by Pulse 98 96 Oximetry 04/30/18 07:38 Temperature 98.6 F Pulse Rate 64 Respiratory 16 Rate Blood Pressure 132/68 (mmHg) O2 Sat by Pulse 93 Oximetry Oxygen Devices in Use Now: None Appearance: alert, comfortable Eyes: No Scleral Icterus Ears/Nose/Mouth/Throat: NL Teeth, Lips, Gums Neck: NL Appearance and Movements; NL JVP Respiratory: Symmetrical Chest Expansion and Respiratory Effort, Clear to Auscultation Cardiovascular: RRR Abdominal: NL Sounds; No Tenderness; No Distention Extremities: - - 1+ leg edema to thighs. left 1st digit with erythema, swelling , a wheel, cannot flex actively or passively Neurological: Alert and Oriented x 3 Result Diagrams: 04/30/18 07:50 04/30/18 07:50 Microbiology and Other Data: Microbiology 04/25/18 18:30 Nasal Screen MRSA (PCR) - Final Nasal Mrsa Not Detected Assess/Plan/Problems-Billing Ms Galarza is a 58 yo F who has a history systolic CHF (ischemic CM), CAD, HTN, type II DM, stage III CKD, carotid artery disease, COPD, PVD who has been who was admitted 04/25 with worsening orthopnea, sob and was found to have decompensated heart failure. - Patient Problems (1) Joint pain in fingers of left hand Current Visit: Yes Status: Acute Code(s): M25.542 - PAIN IN JOINTS OF LEFT HAND SNOMED Code(s): 395963776 Comment: Concerning for gout in setting of aggressive diuresis, also septic joint on differential but Has a wheel that looks like an insect bite Case discussed with dr. suero; added on esr/crp and xray (2) Heart failure, systolic, with acute decompensation Current Visit: Yes Status: Acute Code(s): I50.23 - ACUTE ON CHRONIC SYSTOLIC (CONGESTIVE) HEART FAILURE SNOMED Code(s): 458945178 Comment: Switch to bumex today Add JAIME (3) Uncontrolled type II diabetes mellitus Current Visit: Yes Status: Acute Code(s): E11.65 - TYPE 2 DIABETES MELLITUS WITH HYPERGLYCEMIA SNOMED Code(s): 67328749 Comment: A1c > 10 Uses a pump at home poorly controlled on sliding scale; will add lantus if she stays inpatient tonight (4) CAD (coronary artery disease) Current Visit: Yes Status: Chronic Code(s): I25.10 - ATHSCL HEART DISEASE OF [place] CORONARY ARTERY W/O ANG PCTRS SNOMED Code(s): 28367896 Comment: Troponins ahve been negative. Continue coreg, ASA, lipitor. (5) CKD (chronic kidney disease) stage 3, GFR 30-59 ml/min Current Visit: Yes Status: Chronic Code(s): N18.3 - CHRONIC KIDNEY DISEASE, STAGE 3 (MODERATE) SNOMED Code(s): 968284387 Comment: Creatinine is at baseline. Likely DM nephropathy (6) Urinary retention Current Visit: Yes Status: Acute Code(s): R33.9 - RETENTION OF URINE, UNSPECIFIED SNOMED Code(s): 737333590 Comment: elijah neurogenic bladder failed voiding trial 2 days ago started oxybutynin she reports long history of retention--unable to urinate all day at home sometimes may need to go home with pagan and follow with urology for urodynamics (7) Peripheral vascular disease Current Visit: Yes Status: Chronic Code(s): I73.9 - PERIPHERAL VASCULAR DISEASE, UNSPECIFIED SNOMED Code(s): 581482331 Comment: Stable. Continue ASA/statin
--- NOTE | 2018-04-30 10:41 | CONSULT ---
Consult Consult: Orthopedic Surgery Consultation Date: 04/30/18 Requesting Service: Hospitalist medicine Chief Complaint: left index finger pain History: , 58-year-old woman with significant medical comorbidities, who is admitted to the medical service with a CHF exacerbation, and is being diuresed. She reports that she started having pain at her left distal index finger at the DIP joint yesterday. She does not recall any injury or breaks in the skin. No prior problems with that finger. She denies a history of gout. . No swelling or pain and the rest of the hand. Review of Systems: Negative for fever, recent visual changes, difficulty swallowing, chest pain, shortness of breath, abdominal pain, hematuria, easy bruising, diffuse weakness or lack of coordination, and diffuse rash. PMH: Diabetes with neuropathy, congestive heart failure, restless leg syndrome , spinal stenosis, coronary artery disease, chronic kidney disease, hyperlipidemia, hypertension, COPD, peripheral vascular disease, CVA PSH:, bilateral carotid endarterectomy, below the knee amputation, multiple wound I and D's, laminectomy, tonsillectomy, cholecystectomy, hysterectomy, appendectomy, CABG Medications: Coreg, metolazone, spur, Liss, Neurontin, Tylenol, Colace, atorvastatin, aspirin, DuoNeb, entresto, Mirapex, Zofran, torsemide, spironolactone, dulara Allergies: cephalosporins, codeine, Benadryl, penicillin, sulfa SH: former smoker. No alcohol use. FH: adopted, unknown Physical Examination: Constitutional: Temp Pulse Resp BP Pulse Ox 98.6 F 64 16 132/68 93 04/30/18 07:38 04/30/18 07:38 04/30/18 09:46 04/30/18 07:38 04/30/18 07:38 non-septic in no acute distress. Cardiovascular: Pulse examination demonstrates positive radial pulses. Abdomen: Soft and nontender Lymphatic: No lymphadenopathy appreciated. Skin: Intact Psychiatric / Neurological: Appropriate affect. Alert and oriented to person, place and time. There is no significant abnormality in coordination appreciated. Normoreflexive deep tendon reflex of the affected extremity. Musculoskeletal: skin is intact about the right upper extremity. She does have a inflamed area at the dorsal radial aspect of the DIP joint of the left index finger. There is a small amount of erythema surrounding this. No appreciable swelling. No erythema or swelling tracking proximally. There is pain with DIP range of motion, but no pain with PIP or MCP range of motion. No tenderness along the flexor tendons. Painless wrist range of motion. No tenderness or restriction in range of motion and the other fingers. Imaging: X-rays were obtained, and independently interpreted and show extensive arthritis throughout the hand, including the DIP joint of the left index finger. Labs: WBC 8.7 CRP 32.37 Impression and Plan: Pain and swelling at the left index finger DIP joint. I think it is unlikely that this is septic arthritis. Gout is a possibility in the setting of diuresis. I would try a course of anti-inflammatories to see if this improves her pain. If not improving, would recommend an IR guided joint aspiration for cell count, culture, crystals. If the swelling or erythema worsens, I would recommend the initiation of antibiotics. We will continue to follow along with you. Rivera Shin MD
--- NOTE | 2018-04-30 10:43 | RAD ---
Indication: Red and swollen LEFT second finger. Vasculopath. Comparison: August 31, 2016 Technique: 3 views LEFT second finger. Report: Fusiform soft tissue swelling. No conspicuous foreign body or subcutaneous emphysema. Negative for fracture, focal osteolysis, or periosteal reaction. Severe osteoarthritis most marked at the interphalangeal joints with large osteophytes, advanced joint space narrowing, and subchondral cystic change most marked at the distal interphalangeal joint. IMPRESSION: #. Nonspecific fusiform soft tissue swelling. #. Advanced osteoarthritis with interval worsening. #. Negative for fracture or dislocation.
[2018-04-30] MEDS: Bumetanide TAB* 2 MG PO SCH (17:01)
[2018-04-30] MEDS ORDERED: Vancomycin(*) 1,000 MG in NS 0.9% 250 ML* 250 ML IVPB ONE (19:00)
[2018-04-30] MEDS ORDERED: Vancomycin per Pharmacy* NOTE FOLLOW UP SCH (19:00)
[2018-04-30] MEDS: Gabapentin CAP(*) 300 MG PO SCH (19:22)
[2018-04-30] MEDS: Atorvastatin* 20 MG TAB PO SCH (19:22)
[2018-04-30] MEDS: Pramipexole TAB* 0.5 MG PO SCH (19:25)
[2018-04-30] MEDS: Acetaminophen TAB* 325 MG PO PRN (23:27)
[2018-05-01] MEDS: Heparin VIAL(*) 5000 UNITS/ML VIAL (FIVE THOUSAND) SUBCUT SCH ×3 (05:18→20:05)
[2018-05-01] MEDS: Mometasone/Formoter 100/5 MDI INH SCH ×2 (07:30→19:58)
[2018-05-01] MEDS: Tiotropium CAP.INH* CAP.INH/18 MCG (USE ORDER SET !) INH SCH (07:30)
[2018-05-01] MEDS ORDERED: Vancomycin(*) 500 MG in NS 0.9% 250 ML* 250 ML IVPB SCH (08:00)
[2018-05-01] MEDS ORDERED: Insulin GLARGINE(*) 1 UNITS UNIT SUBCUT SCH (08:00)
[2018-05-01] MEDS: hydrALAZINE TAB* 10 MG PO SCH ×3 (08:17→19:52)
[2018-05-01] MEDS: Docusate CAP* 100 MG PO SCH ×2 (08:17→19:51)
[2018-05-01] MEDS: Isosorbide Mononitrate ER TAB* 30 MG PO SCH (08:17)
[2018-05-01] MEDS: Oxybutynin TAB* 5 MG PO SCH (08:17)
[2018-05-01] MEDS: Bumetanide TAB* 2 MG PO SCH ×2 (08:17→17:06)
[2018-05-01] MEDS: Spironolactone TAB* 25 MG PO SCH (08:17)
[2018-05-01] MEDS: Aspirin EC TAB* 81 MG TAB.EC PO SCH (08:17)
[2018-05-01] MEDS: Carvedilol TAB* 3.125 MG PO SCH ×2 (08:17→19:52)
[2018-05-01] MEDS: Insulin LISPRO* 1 UNITS UNIT SUBCUT SCH ×4 (08:18→20:13)
[2018-05-01] MEDS: Meropenem 1 GM PREMIX(*) 1 GM/50 ML BAG IV SCH ×2 (09:07→19:52)
--- NOTE | 2018-05-01 11:24 | PN ---
Progress Note - Progress Note Date of Service: 05/01/18 Note: I saw and evaluated Topher this morning. She continues to have pain at the left index finger DIP joint. The exam remains unchanged. There is a small area of swelling and minimal erythema. No tracking proximally. She is able to flex and extend the finger, except for some pain at the DIP joint. The rest of the hand is benign appearing. I doubt this is a septic joint, I think doubt it is a possibility, I also think arthritis or a ganglion cyst as possible. She does not recall bug bite, but it is kind of look like this as well. We will continue to monitor it unless it worsens. I recommended anti-inflammatories for pain control. Rivera Shin MD
[2018-05-01] MEDS ORDERED: Insulin GLARGINE(*) 1 UNITS UNIT SUBCUT ONE (12:44)
--- NOTE | 2018-05-01 13:01 | PN ---
Subjective Date of Service: 05/01/18 Interval History: Pt c/o pain and edema in left index finger DIP joint. Family History: Unchanged from Admission Social History: Unchanged from Admission Past Medical History: Unchanged from Admission Objective Active Medications: Acetaminophen (Tylenol Tab*) 650 mg PO Q4H PRN PRN Reason: FEVER/PAIN Last Admin: 04/30/18 23:27 Dose: 650 mg Albuterol/Ipratropium (Duoneb (Albuterol 2.5 Mg/Ipratropium 0.5 Mg)) 1 neb INH Q4H PRN PRN Reason: WHEEZING Allopurinol (Zyloprim Tab*) 100 mg PO DAILY [facility] Aspirin (Aspirin Ec Tab*) 81 mg PO QAM [facility] Last Admin: 05/01/18 08:17 Dose: 81 mg Atorvastatin Calcium (Lipitor*) 20 mg PO 1999 [facility] Last Admin: 04/30/18 19:22 Dose: 20 mg Bumetanide (Bumex Tab*) 2 mg PO BID WITH MEALS [facility] Last Admin: 05/01/18 08:17 Dose: 2 mg Carvedilol (Coreg Tab*) 3.125 mg PO BID [facility] Last Admin: 05/01/18 08:17 Dose: 3.125 mg Dextrose (D50w Syringe 50 Ml*) 12.5 gm IV PUSH .FOR FS < 60 - SS PRN PRN Reason: FS < 60 Docusate Sodium (Colace Cap*) 100 mg PO BID [facility] Last Admin: 05/01/18 08:17 Dose: 100 mg Gabapentin (Neurontin Cap(*)) 1,200 mg PO BEDTIME [facility] Last Admin: 04/30/18 19:22 Dose: 1,200 mg Heparin Sodium (Porcine) (Heparin Flush Port (Ivad)) 5 ml FLUSH DAILY [facility]; Protocol Last Admin: 05/01/18 10:56 Dose: 5 ml Heparin Sodium (Porcine) (Heparin Vial(*)) 5,000 units SUBCUT Q8HR [facility] Last Admin: 05/01/18 05:18 Dose: 5,000 units Hydralazine HCl (Apresoline Tab*) 10 mg PO TID [facility] Last Admin: 05/01/18 08:17 Dose: 10 mg Meropenem (Merrem 1 Gm Premix(*)) 1 gm in 50 mls @ 100 mls/hr IV Q12H [facility] Last Admin: 05/01/18 09:07 Dose: 100 mls/hr Insulin Glargine (Lantus(*)) 20 units SUBCUT Q24H [facility] Insulin Human Lispro (Humalog*) 0 - 10 units SUBCUT ACHS [facility]; Protocol Last Admin: 05/01/18 12:11 Dose: 6 units Isosorbide Mononitrate (Imdur Er Tab*) 30 mg PO DAILY [facility] Last Admin: 05/01/18 08:17 Dose: 30 mg Metolazone (Zaroxolyn Tab*) 5 mg PO MoWeFr@0830 [facility] Last Admin: 04/29/18 08:45 Dose: 5 mg Mometasone Furoate/Formoterol Fumar (Dulera 100/5 Mdi*) 2 puff INH BID [facility] Last Admin: 05/01/18 07:30 Dose: 2 puff Morphine Sulfate (Morphine Vial*) 2 mg IV Q4H PRN PRN Reason: PAIN - MILD Last Admin: 04/30/18 19:59 Dose: 2 mg Ondansetron HCl (Zofran Tab*) 4 mg PO Q6H PRN PRN Reason: NAUSEA Last Admin: 04/26/18 08:44 Dose: 4 mg Ondansetron HCl (Zofran Inj*) 4 mg IV Q4H PRN PRN Reason: NAUSEA Last Admin: 04/27/18 13:04 Dose: 4 mg Oxybutynin Chloride (Ditropan Tab*) 5 mg PO DAILY [facility] Last Admin: 05/01/18 08:17 Dose: 5 mg Polyethylene Glycol/Electrolytes (Miralax*) 17 gm PO DAILY PRN PRN Reason: CONSTIPATION Pramipexole Dihydrochloride (Mirapex Tab*) 0.5 mg PO BEDTIME [facility] Last Admin: 04/30/18 19:25 Dose: 0.5 mg Prednisone (Deltasone Tab*) 50 mg PO DAILY [facility] Spironolactone (Aldactone Tab*) 12.5 mg PO DAILY [facility] Last Admin: 05/01/18 08:17 Dose: 12.5 mg Tiotropium [place] (Spiriva Cap.Inh*) 1 cap INH DAILY [facility] Last Admin: 05/01/18 07:30 Dose: 1 cap Vital Signs - 8 hr 05/01/18 05/01/18 05/01/18 07:26 07:59 11:55 Temperature 98.3 F 98.6 F Pulse Rate 66 64 Respiratory 16 18 16 Rate Blood Pressure 141/70 137/71 (mmHg) O2 Sat by Pulse 93 96 Oximetry Oxygen Devices in Use Now: None Appearance: 58 yo F in nAD, aAOx3 Eyes: No Scleral Icterus, PERRLA Ears/Nose/Mouth/Throat: NL Teeth, Lips, Gums, Mucous Membranes Moist Neck: NL Appearance and Movements; NL JVP, Trachea Midline Respiratory: Symmetrical Chest Expansion and Respiratory Effort Cardiovascular: NL Sounds; No Murmurs; No JVD, RRR, No Edema Abdominal: NL Sounds; No Tenderness; No Distention Lymphatic: No Cervical Adenopathy, - - s/p L BKA-stump healed Extremities: No Edema, No Clubbing, Cyanosis Skin: No Rash or Ulcers, - - left index finger DIP joint with forming tophi, edema noted Neurological: Alert and Oriented x 3, NL Muscle Strength and Tone Result Diagrams: 04/30/18 07:50 04/30/18 07:50 Microbiology and Other Data: Microbiology 04/25/18 18:30 Nasal Screen MRSA (PCR) - Final Nasal Mrsa Not Detected Assess/Plan/Problems-Billing Ms Galarza is a 58 yo F who has a history systolic CHF (ischemic CM), CAD, HTN, type II DM, stage III CKD, carotid artery disease, COPD, PVD who has been who was admitted 04/25 with worsening orthopnea, sob and was found to have decompensated heart failure. - Patient Problems (1) Heart failure, systolic, with acute decompensation Comment: cont bumex started on ACEI. appreciate cardiology consult euvolemic today (2) Joint pain in fingers of left hand Comment: Likely gout in setting of aggressive diuresis. Urica acid>[address] Roman's consult. Unable to tx with NSAIDS due to CKD. Steroids make the sugers uncontrolled, but that can be managed. will start Prednisone allopurinol started (3) UTI (urinary tract infection) Comment: Urinalysis abnormal on admission. Dr. Damon to weigh in on whether or not she should be treated. for the time being meropenem started (4) Uncontrolled type II diabetes mellitus Comment: A1c > 10 Uses a pump at home started Lantus 20 today (5) Urinary retention Comment: likely neurogenic bladder failed voiding trial started oxybutynin tis hosp. stay she reports long history of retention--unable to urinate all day at home sometimes may need to go home with pagan and follow with urology for urodynamics (6) Anemia Comment: H/H stable, at baseline. (7) CKD (chronic kidney disease) stage 3, GFR 30-59 ml/min Comment: Creatinine is at baseline. Likely DM nephropathy (8) DVT prophylaxis Comment: SQ heparin
[2018-05-01] MEDS: Allopurinol TAB* 100 MG PO SCH (13:04)
[2018-05-01] MEDS: predniSONE TAB* 50 MG PO SCH (13:05)
[2018-05-01] MEDS: Morphine VIAL* 4 MG/ML VIAL (1 ml vial) IV PRN (13:46)
[2018-05-01] MEDS: Morphine INJ* 10 MG/ML 1 ML CARPUJECT IV PRN ×2 (19:45→23:50)
[2018-05-01] MEDS: Gabapentin CAP(*) 300 MG PO SCH (19:51)
[2018-05-01] MEDS: Atorvastatin* 20 MG TAB PO SCH (19:52)
[2018-05-01] MEDS: Pramipexole TAB* 0.5 MG PO SCH (19:52)
[2018-05-02] MEDS: Morphine INJ* 10 MG/ML 1 ML CARPUJECT IV PRN ×4 (04:06→17:25)
[2018-05-02] MEDS: Heparin VIAL(*) 5000 UNITS/ML VIAL (FIVE THOUSAND) SUBCUT SCH ×3 (05:26→20:49)
[2018-05-02 06:14] LABS: EGFR Non-African American 30.4 (>60)
[2018-05-02] MEDS ORDERED: Sodium Polystyrene ORAL.SOL* 15 GM/60 ML BTL PO ONE (07:28)
[2018-05-02] MEDS ORDERED: Vancomycin Trough Check NOTE FOLLOW UP ONE (07:30)
[2018-05-02] MEDS: Docusate CAP* 100 MG PO SCH ×2 (07:59→20:45)
[2018-05-02] MEDS: Bumetanide TAB* 2 MG PO SCH ×2 (07:59→17:26)
[2018-05-02] MEDS: predniSONE TAB* 50 MG PO SCH (07:59)
[2018-05-02] MEDS: Isosorbide Mononitrate ER TAB* 30 MG PO SCH (07:59)
[2018-05-02] MEDS: Allopurinol TAB* 100 MG PO SCH (07:59)
[2018-05-02] MEDS: hydrALAZINE TAB* 10 MG PO SCH ×3 (07:59→20:47)
[2018-05-02] MEDS: Oxybutynin TAB* 5 MG PO SCH (08:00)
[2018-05-02] MEDS: Spironolactone TAB* 25 MG PO SCH (08:00)
[2018-05-02] MEDS: Carvedilol TAB* 3.125 MG PO SCH ×2 (08:00→20:45)
[2018-05-02] MEDS: Aspirin EC TAB* 81 MG TAB.EC PO SCH (08:00)
[2018-05-02] MEDS: Insulin LISPRO* 1 UNITS UNIT SUBCUT SCH ×4 (08:01→20:48)
[2018-05-02] MEDS: Meropenem 1 GM PREMIX(*) 1 GM/50 ML BAG IV SCH (08:02)
[2018-05-02] MEDS: Ondansetron INJ* 2 MG/ML VIAL IV PRN (08:14)
[2018-05-02] MEDS: Metolazone TAB* 5 MG PO SCH ×2 (08:14→08:44)
[2018-05-02] MEDS: Mometasone/Formoter 100/5 MDI INH SCH (08:50)
[2018-05-02] MEDS: Tiotropium CAP.INH* CAP.INH/18 MCG (USE ORDER SET !) INH SCH (08:51)
[2018-05-02] MEDS ORDERED: Insulin GLARGINE(*) 1 UNITS UNIT SUBCUT SCH ×2 (09:00)
--- NOTE | 2018-05-02 13:13 | PN ---
Progress Note - Progress Note Date of Service: 05/02/18 SOAP: Subjective: []Patient seen OOB in chair. She reports continued left index finger pain. Vital signs stable and patient has been afebrile overnight. Objective: []General: Well appearing, NAD LUE: Left index finger without erythema and very minimal swelling over DIP. She does have some flexion and extension though limited by pain. Capillary refill brisk and sensation intact distally. The rest of the hand is without erythema or edema. Assessment: [] Left index finger pain likely gout Plan: []WBAT Monitor for worsening redness, pain, decreased ROM Unable to treat with NSAIDS due to CKD. On allopurinol and prednisone Vital Signs Temp 98.4 F 05/02/18 11:22 Pulse 76 05/02/18 11:22 Resp 20 05/02/18 12:53 BP 169/86 05/02/18 11:22 Pulse Ox 97 05/02/18 11:22 Intake & Output 05/01/18 05/02/18 05/02/18 18:59 06:59 18:59 Intake Total 1770 210 240 Output Total 800 1500 Balance 970 -1290 240 Weight 145 lb 4.8 oz Intake: IV Fluids 50 30 ABX - Meropenem 30 NS (0.9%) 50 IVPB 60 60 ABX - Meropenem 60 60 Oral 1660 120 240 Output: Urine 800 650 [place] 850 Laboratory Last Values WBC 8.7 10^3/ul (3.5-10.8) 04/30/18 07:50 RBC 2.95 10^6/ul (4.00-5.40) L 04/30/18 07:50 Hgb 7.9 g/dl (12.0-16.0) L 04/30/18 07:50 Hct 25 % (35-47) L 04/30/18 07:50 MCV 85 fL (80-97) 04/30/18 07:50 MCH 27 pg (27-31) 04/30/18 07:50 MCHC 31 g/dl (31-36) 04/30/18 07:50 RDW 21 % (10.5-15) H 04/30/18 07:50 Plt Count 297 10^3/ul (150-450) 04/30/18 07:50 MPV 9.0 um3 (7.4-10.4) 04/30/18 07:50 Neut % (Auto) 75.3 % (38-83) 04/30/18 07:50 Lymph % (Auto) 14.3 % (25-47) L 04/30/18 07:50 [place] % (Auto) 6.3 % (0-7) 04/30/18 07:50 Eos % (Auto) 2.8 % (0-6) 04/30/18 07:50 Baso % (Auto) 1.3 % (0-2) 04/30/18 07:50 Absolute Neuts (auto) 6.5 10^3/ul (1.5-7.7) 04/30/18 07:50 Absolute Lymphs (auto) 1.2 10^3/ul (1.0-4.8) 04/30/18 07:50 Absolute Monos (auto) 0.5 10^3/ul (0-0.8) 04/30/18 07:50 Absolute Eos (auto) 0.2 10^3/ul (0-0.6) 04/30/18 07:50 Absolute Basos (auto) 0.1 10^3/ul (0-0.2) 04/30/18 07:50 Absolute Nucleated RBC 0 10^3/ul 04/30/18 07:50 Nucleated RBC % 0 04/30/18 07:50 Hypochromasia 1+ 04/28/18 05:12 Anisocytosis 2+ 04/28/18 05:12 Tear Drop Cells 1+ 04/28/18 05:12 ESR 120 mm/Hr (0-30) H 04/30/18 07:50 INR (Anticoag Therapy) 0.94 (0.77-1.02) 04/25/18 12:15 Sodium 130 mmol/L (135-145) L 05/02/18 05:40 Potassium 5.9 mmol/L (3.5-5.0) H 05/02/18 05:40 Chloride 93 mmol/L (101-111) L 05/02/18 05:40 Carbon Dioxide 32 mmol/L (22-32) 05/02/18 05:40 Anion Gap 5 mmol/L (2-11) 05/02/18 05:40 BUN 41 mg/dL (6-24) H 05/02/18 05:40 Creatinine 1.73 mg/dL (0.51-0.95) H 05/02/18 05:40 Est GFR ( Amer) 36.7 (>60) 05/02/18 05:40 Est GFR (Non-Af Amer) 30.4 (>60) 05/02/18 05:40 BUN/Creatinine Ratio 23.7 (8-20) H 05/02/18 05:40 Glucose 412 mg/dL (70-100) H 05/02/18 05:40 POC Glucose (mg/dL) 293 mg/dL (70-100) H 05/02/18 11:43 Hemoglobin A1c 10.1 % (4.0-5.6) H 04/26/18 05:50 Lactic Acid 0.8 mmol/L (0.5-2.0) 04/25/18 12:15 Calcium 8.9 mg/dL (8.6-10.3) 05/02/18 05:40 Magnesium 2.1 mg/dL (1.9-2.7) 04/30/18 07:50 Total Bilirubin 0.60 mg/dL (0.2-1.0) 04/25/18 12:15 AST 9 U/L (13-39) L 04/25/18 12:15 ALT 5 U/L (7-52) L 04/25/18 12:15 Alkaline Phosphatase 137 U/L (34-104) H 04/25/18 12:15 Troponin I 0.01 ng/mL (<0.04) 04/27/18 08:35 C-Reactive Protein 32.37 mg/L (<8.01) H 04/30/18 07:50 B-Natriuretic Peptide 1844 pg/mL (-100) H 04/25/18 12:15 Total Protein 6.0 g/dL (6.4-8.9) L 04/25/18 12:15 Albumin 2.7 g/dL (3.2-5.2) L 04/25/18 12:15 Globulin 3.3 g/dL (2-4) 04/25/18 12:15 Albumin/Globulin Ratio 0.8 (1-3) L 04/25/18 12:15 Lipase < 10 U/L (11.0-82.0) L 04/25/18 12:15 TSH 1.74 mcIU/mL (0.34-5.60) 04/25/18 12:15 Urine Color Yellow 04/25/18 13:04 Urine Appearance Cloudy 04/25/18 13:04 Urine pH 6.0 (5-9) 04/25/18 13:04 Ur Specific [place] 1.016 (1.010-1.030) 04/25/18 13:04 Urine Protein 3+(>=500 mg/dl) (Negative) A 04/25/18 13:04 Urine Ketones Negative (Negative) 04/25/18 13:04 Urine Blood 1+ (Negative) A 04/25/18 13:04 Urine Nitrate Positive (Negative) A 04/25/18 13:04 Urine Bilirubin Negative (Negative) 04/25/18 13:04 Urine Urobilinogen Negative (Negative) 04/25/18 13:04 Ur Leukocyte Esterase Negative (Negative) 04/25/18 13:04 Urine WBC (Auto) 3+(>20/hpf) (Absent) A 04/25/18 13:04 Urine RBC (Auto) 1+(3-5/hpf) (Absent) A 04/25/18 13:04 Urine Bacteria 3+ (Absent) A 04/25/18 13:04 Urine Glucose 3+(>=500 mg/dl) (Negative) A 04/25/18 13:04
--- NOTE | 2018-05-02 13:58 | PN ---
Subjective Date of Service: 05/02/18 Interval History: Pt c/o left index finger still hurting. BG in 300's due to prednisone Family History: Unchanged from Admission Social History: Unchanged from Admission Past Medical History: Unchanged from Admission Objective Active Medications: Acetaminophen (Tylenol Tab*) 650 mg PO Q4H PRN PRN Reason: FEVER/PAIN Last Admin: 04/30/18 23:27 Dose: 650 mg Albuterol/Ipratropium (Duoneb (Albuterol 2.5 Mg/Ipratropium 0.5 Mg)) 1 neb INH Q4H PRN PRN Reason: WHEEZING Allopurinol (Zyloprim Tab*) 100 mg PO DAILY [facility] Last Admin: 05/02/18 07:59 Dose: 100 mg Aspirin (Aspirin Ec Tab*) 81 mg PO QAM [facility] Last Admin: 05/02/18 08:00 Dose: 81 mg Atorvastatin Calcium (Lipitor*) 20 mg PO 2000 [facility] Last Admin: 05/01/18 19:52 Dose: 20 mg Bumetanide (Bumex Tab*) 2 mg PO BID WITH MEALS [facility] Last Admin: 05/02/18 07:59 Dose: 2 mg Carvedilol (Coreg Tab*) 3.125 mg PO BID [facility] Last Admin: 05/02/18 08:00 Dose: 3.125 mg Dextrose (D50w Syringe 50 Ml*) 12.5 gm IV PUSH .FOR FS < 60 - SS PRN PRN Reason: FS < 60 Docusate Sodium (Colace Cap*) 100 mg PO BID [facility] Last Admin: 05/02/18 07:59 Dose: 100 mg Gabapentin (Neurontin Cap(*)) 1,200 mg PO BEDTIME [facility] Last Admin: 05/01/18 19:51 Dose: 1,200 mg Heparin Sodium (Porcine) (Heparin Flush Port (Ivad)) 5 ml FLUSH DAILY [facility]; Protocol Last Admin: 05/02/18 09:27 Dose: 5 ml Heparin Sodium (Porcine) (Heparin Vial(*)) 5,000 units SUBCUT Q8HR [facility] Last Admin: 05/02/18 12:50 Dose: 5,000 units Hydralazine HCl (Apresoline Tab*) 10 mg PO TID [facility] Last Admin: 05/02/18 12:50 Dose: 10 mg Insulin Glargine (Lantus(*)) 30 units SUBCUT Q24H [facility] Last Admin: 05/02/18 08:01 Dose: 30 units Insulin Human Lispro (Humalog*) 0 - 10 units SUBCUT [facility]; Protocol Last Admin: 05/02/18 12:07 Dose: 6 units Isosorbide Mononitrate (Imdur Er Tab*) 30 mg PO DAILY [facility] Last Admin: 05/02/18 07:59 Dose: 30 mg Metolazone (Zaroxolyn Tab*) 5 mg PO MoWeFr@0830 [facility] Last Admin: 05/02/18 08:44 Dose: 5 mg Mometasone Furoate/Formoterol Fumar (Dulera 100/5 Mdi*) 2 puff INH BID [facility] Last Admin: 05/02/18 08:50 Dose: 2 puff Morphine Sulfate (Morphine Inj (Syringe)*) 2 mg IV Q4H PRN PRN Reason: PAIN - MILD Last Admin: 05/02/18 12:06 Dose: 2 mg Ondansetron HCl (Zofran Tab*) 4 mg PO Q6H PRN PRN Reason: NAUSEA Last Admin: 04/26/18 08:44 Dose: 4 mg Ondansetron HCl (Zofran Inj*) 4 mg IV Q4H PRN PRN Reason: NAUSEA Last Admin: 05/02/18 08:14 Dose: 4 mg Oxybutynin Chloride (Ditropan Tab*) 5 mg PO DAILY [facility] Last Admin: 05/02/18 08:00 Dose: 5 mg Polyethylene Glycol/Electrolytes (Miralax*) 17 gm PO DAILY PRN PRN Reason: CONSTIPATION Pramipexole Dihydrochloride (Mirapex Tab*) 0.5 mg PO BEDTIME [facility] Last Admin: 05/01/18 19:52 Dose: 0.5 mg Prednisone (Deltasone Tab*) 50 mg PO DAILY [facility] Last Admin: 05/02/18 07:59 Dose: 50 mg Spironolactone (Aldactone Tab*) 12.5 mg PO DAILY [facility] Last Admin: 05/02/18 08:00 Dose: 12.5 mg Tiotropium [place] (Spiriva Cap.Inh*) 1 cap INH DAILY [facility] Last Admin: 05/02/18 08:51 Dose: Not Given Vital Signs - 8 hr 05/02/18 05/02/1818 07:34 07:45 08:14 Temperature 98.3 F Pulse Rate 73 Respiratory 18 18 20 Rate Blood Pressure 162/83 (mmHg) O2 Sat by Pulse 98 98 Oximetry 05/02/18 05/02/18 05/02/18 08:52 09:39 11:22 Temperature 98.4 F Pulse Rate 76 76 Respiratory 16 20 18 Rate Blood Pressure 169/86 (mmHg) O2 Sat by Pulse 95 97 Oximetry 05/02/18 05/02/18 12:06 12:53 Temperature Pulse Rate Respiratory 20 20 Rate Blood Pressure (mmHg) O2 Sat by Pulse Oximetry Oxygen Devices in Use Now: None Appearance: 58 yo f in nAD, aAOx3 Eyes: No Scleral Icterus, PERRLA Ears/Nose/Mouth/Throat: NL Teeth, Lips, Gums Neck: NL Appearance and Movements; NL JVP Respiratory: Symmetrical Chest Expansion and Respiratory Effort, Clear to Auscultation Cardiovascular: NL Sounds; No Murmurs; No JVD, RRR Abdominal: NL Sounds; No Tenderness; No Distention, No Hepatosplenomegaly Lymphatic: No Cervical Adenopathy Extremities: No Edema, No Clubbing, Cyanosis, - - left BKA Skin: No Rash or Ulcers, - - left index finger with edema at DIP joint and tophi formation Neurological: Alert and Oriented x 3, NL Muscle Strength and Tone Result Diagrams: 04/30/18 07:50 05/02/18 05:40 Microbiology and Other Data: Microbiology 04/25/18 18:30 Nasal Screen MRSA (PCR) - Final Nasal Mrsa Not Detected Assess/Plan/Problems-Billing Ms Galarza is a 58 yo F who has a history systolic CHF (ischemic CM), CAD, HTN, type II DM, stage III CKD, carotid artery disease, COPD, PVD who has been who was admitted 04/25 with worsening orthopnea, sob and was found to have decompensated heart failure. - Patient Problems (1) Heart failure, systolic, with acute decompensation Comment: cont bumex On Aldactone, now hyperkalemic, will stop. appreciate cardiology consult euvolemic today (2) Joint pain in fingers of left hand Comment: Likely gout in setting of aggressive diuresis. Uric acid>[address] Roman's consult. Unable to tx with NSAIDS due to CKD. Steroids make the sugars uncontrolled, but that can be managed. cont Prednisone for now allopurinol started (3) UTI (urinary tract infection) Comment: Urinalysis abnormal on admission.D/w Dr. Damon-pt is likely colonized. No antibiotic tx needed (4) Uncontrolled type II diabetes mellitus Comment: A1c > 10 Uses a pump at home Uncontroled due to prednisone use. cont to titrate Lantus up (5) Urinary retention Comment: likely neurogenic bladder failed voiding trial started oxybutynin tis hosp. stay she reports long history of retention--unable to urinate all day at home sometimes may need to go home with pagan and follow with urology for urodynamics (6) Anemia Comment: H/H stable, at baseline. (7) CKD (chronic kidney disease) stage 3, GFR 30-59 ml/min Comment: Creatinine is at baseline. Likely DM nephropathy (8) Hyperkalemia Comment: stop Aldactone. Tx with Kayexalate. cont to monitor (9) DVT prophylaxis Comment: SQ heparin
[2018-05-02] MEDS ORDERED: Dextrose 50% Syringe 50 ML* 25 GM/50 ML SYRINGE IV PUSH PRN (17:07)
[2018-05-02] MEDS ORDERED: Insulin LISPRO* 1 UNITS UNIT SUBCUT ONE ×2 (17:07→20:30)
[2018-05-02] MEDS ORDERED: Insulin GLARGINE(*) 1 UNITS UNIT SUBCUT ONE (17:08)
[2018-05-02] MEDS: Atorvastatin* 20 MG TAB PO SCH (20:44)
[2018-05-02] MEDS: Gabapentin CAP(*) 300 MG PO SCH (20:45)
[2018-05-02] MEDS: Pramipexole TAB* 0.5 MG PO SCH (20:48)
[2018-05-02] MEDS: Temazepam CAP* 15 MG PO PRN (20:49)
[2018-05-03] MEDS: Morphine INJ* 10 MG/ML 1 ML CARPUJECT IV PRN (03:41)
[2018-05-03] MEDS: Heparin VIAL(*) 5000 UNITS/ML VIAL (FIVE THOUSAND) SUBCUT SCH ×3 (05:33→20:19)
[2018-05-03 06:18] LABS: EGFR Non-African American 32.1 (>60)
[2018-05-03] MEDS: Mometasone/Formoter 100/5 MDI INH SCH ×4 (06:59→21:00)
[2018-05-03] MEDS: Isosorbide Mononitrate ER TAB* 30 MG PO SCH (08:19)
[2018-05-03] MEDS: predniSONE TAB* 50 MG PO SCH (08:19)
[2018-05-03] MEDS: Aspirin EC TAB* 81 MG TAB.EC PO SCH (08:19)
[2018-05-03] MEDS: Bumetanide TAB* 2 MG PO SCH ×2 (08:19→16:35)
[2018-05-03] MEDS: Allopurinol TAB* 100 MG PO SCH (08:19)
[2018-05-03] MEDS: Carvedilol TAB* 3.125 MG PO SCH ×2 (08:20→20:19)
[2018-05-03] MEDS: Docusate CAP* 100 MG PO SCH ×2 (08:20→20:19)
[2018-05-03] MEDS: oxyCODONE/Acetamin 5/325 MG* TAB PO PRN ×2 (08:20→12:54)
[2018-05-03] MEDS: Insulin LISPRO* 1 UNITS UNIT SUBCUT SCH ×2 (08:20→11:51)
[2018-05-03] MEDS: Oxybutynin TAB* 5 MG PO SCH (08:20)
[2018-05-03] MEDS: hydrALAZINE TAB* 10 MG PO SCH ×3 (08:20→20:19)
[2018-05-03] MEDS: Insulin GLARGINE(*) 1 UNITS UNIT SUBCUT SCH (08:21)
[2018-05-03] MEDS: Tiotropium CAP.INH* CAP.INH/18 MCG (USE ORDER SET !) INH SCH (08:23)
[2018-05-03] MEDS ORDERED: Insulin GLARGINE(*) 1 UNITS UNIT SUBCUT SCH (09:00)
--- NOTE | 2018-05-03 09:38 | PN ---
Progress Note - Progress Note Date of Service: 05/03/18 SOAP: Subjective: []Patient seen OOB in chair. She reports continued left index finger pain better from yesterday though still bothersome. Denies fever, chills. Objective: []General: Well appearing, NAD LUE: Left index finger without any erythema and very minimal swelling over DIP. Flexion and extension improved today. Capillary refill brisk and sensation intact distally. Radial pulse 2+. The rest of the hand is without erythema or edema. Assessment: [] Left index finger pain likely gout Plan: []WBAT Monitor for worsening redness, pain, decreased ROM Unable to treat with NSAIDS due to CKD. On allopurinol and prednisone Vital Signs Temp 97.8 F 05/03/18 08:12 Pulse 64 05/03/18 08:12 Resp 20 05/03/18 08:20 BP 139/87 05/03/18 08:12 Pulse Ox 96 05/03/18 08:12 Intake & Output 05/02/18 05/03/18 05/03/18 18:59 06:59 18:59 Intake Total 720 590 Output Total 800 0 Balance -80 -1460 Weight 150 lb 8 oz Intake: Oral 720 590 Output: Urine 0 [place] 800 2049 Other: Estimated Void Medium # Bowel Movements 0 0 # Voids 1 Laboratory Last Values WBC 8.7 10^3/ul (3.5-10.8) 04/30/18 07:50 RBC 2.95 10^6/ul (4.00-5.40) L 04/30/18 07:50 Hgb 7.9 g/dl (12.0-16.0) L 04/30/18 07:50 Hct 25 % (35-47) L 04/30/18 07:50 MCV 85 fL (80-97) 04/30/18 07:50 MCH 27 pg (27-31) 04/30/18 07:50 MCHC 31 g/dl (31-36) 04/30/18 07:50 RDW 21 % (10.5-15) H 04/30/18 07:50 Plt Count 297 10^3/ul (150-450) 04/30/18 07:50 MPV 9.0 um3 (7.4-10.4) 04/30/18 07:50 Neut % (Auto) 75.3 % (38-83) 04/30/18 07:50 Lymph % (Auto) 14.3 % (25-47) L 04/30/18 07:50 Lucas % (Auto) 6.3 % (0-7) 04/30/18 07:50 Eos % (Auto) 2.8 % (0-6) 04/30/18 07:50 Baso % (Auto) 1.3 % (0-2) 04/30/18 07:50 Absolute Neuts (auto) 6.5 10^3/ul (1.5-7.7) 04/30/18 07:50 Absolute Lymphs (auto) 1.2 10^3/ul (1.0-4.8) 04/30/18 07:50 Absolute Monos (auto) 0.5 10^3/ul (0-0.8) 04/30/18 07:50 Absolute Eos (auto) 0.2 10^3/ul (0-0.6) 04/30/18 07:50 Absolute Basos (auto) 0.1 10^3/ul (0-0.2) 04/30/18 07:50 Absolute Nucleated RBC 0 10^3/ul 04/30/18 07:50 Nucleated RBC % 0 04/30/18 07:50 Hypochromasia 1+ 04/28/18 05:12 Anisocytosis 2+ 04/28/18 05:12 Tear Drop Cells 1+ 04/28/18 05:12 ESR 120 mm/Hr (0-30) H 04/30/18 07:50 INR (Anticoag Therapy) 0.94 (0.77-1.02) 04/25/18 12:15 Sodium 134 mmol/L (135-145) L 05/03/18 05:45 Potassium 4.8 mmol/L (3.5-5.0) 05/03/18 05:45 Chloride 90 mmol/L (101-111) L 05/03/18 05:45 Carbon Dioxide 36 mmol/L (22-32) H 05/03/18 05:45 Anion Gap 8 mmol/L (2-11) 05/03/18 05:45 BUN 53 mg/dL (6-24) H 05/03/18 05:45 Creatinine 1.65 mg/dL (0.51-0.95) H 05/03/18 05:45 Est GFR ( Amer) 38.8 (>60) 05/03/18 05:45 Est GFR (Non-Af Amer) 32.1 (>60) 05/03/18 05:45 BUN/Creatinine Ratio 32.1 (8-20) H 05/03/18 05:45 Glucose 264 mg/dL (70-100) H 05/03/18 05:45 POC Glucose (mg/dL) 246 mg/dL (70-100) H 05/03/18 07:42 Glucose Meter Confirm 485 mg/dL (70-100) H 05/02/18 19:42 Hemoglobin A1c 10.1 % (4.0-5.6) H 04/26/18 05:50 Lactic Acid 0.8 mmol/L (0.5-2.0) 04/25/18 12:15 Calcium 9.0 mg/dL (8.6-10.3) 05/03/18 05:45 Magnesium 2.1 mg/dL (1.9-2.7) 04/30/18 07:50 Total Bilirubin 0.60 mg/dL (0.2-1.0) 04/25/18 12:15 AST 9 U/L (13-39) L 04/25/18 12:15 ALT 5 U/L (7-52) L 04/25/18 12:15 Alkaline Phosphatase 137 U/L (34-104) H 04/25/18 12:15 Troponin I 0.01 ng/mL (<0.04) 04/27/18 08:35 C-Reactive Protein 32.37 mg/L (<8.01) H 04/30/18 07:50 B-Natriuretic Peptide 1844 pg/mL (-100) H 04/25/18 12:15 Total Protein 6.0 g/dL (6.4-8.9) L 04/25/18 12:15 Albumin 2.7 g/dL (3.2-5.2) L 04/25/18 12:15 Globulin 3.3 g/dL (2-4) 04/25/18 12:15 Albumin/Globulin Ratio 0.8 (1-3) L 04/25/18 12:15 Lipase < 10 U/L (11.0-82.0) L 04/25/18 12:15 TSH 1.74 mcIU/mL (0.34-5.60) 04/25/18 12:15 Urine Color Yellow 04/25/18 13:04 Urine Appearance Cloudy 04/25/18 13:04 Urine pH 6.0 (5-9) 04/25/18 13:04 Ur Specific [place] 1.016 (1.010-1.030) 04/25/18 13:04 Urine Protein 3+(>=500 mg/dl) (Negative) A 04/25/18 13:04 Urine Ketones Negative (Negative) 04/25/18 13:04 Urine Blood 1+ (Negative) A 04/25/18 13:04 Urine Nitrate Positive (Negative) A 04/25/18 13:04 Urine Bilirubin Negative (Negative) 04/25/18 13:04 Urine Urobilinogen Negative (Negative) 04/25/18 13:04 Ur Leukocyte Esterase Negative (Negative) 04/25/18 13:04 Urine WBC (Auto) 3+(>20/hpf) (Absent) A 04/25/18 13:04 Urine RBC (Auto) 1+(3-5/hpf) (Absent) A 04/25/18 13:04 Urine Bacteria 3+ (Absent) A 04/25/18 13:04 Urine Glucose 3+(>=500 mg/dl) (Negative) A 04/25/18 13:04
--- NOTE | 2018-05-03 16:48 | PN ---
Subjective Date of Service: 05/03/18 Interval History: Pt feels well. Her insulin pump was placed back on today. She decided to straight cath instead of indwelling Mckeon and will stay another day to have proper training Family History: Unchanged from Admission Social History: Unchanged from Admission Past Medical History: Unchanged from Admission Objective Active Medications: Acetaminophen (Tylenol Tab*) 650 mg PO Q4H PRN PRN Reason: FEVER/PAIN Last Admin: 04/30/18 23:27 Dose: 650 mg Albuterol/Ipratropium (Duoneb (Albuterol 2.5 Mg/Ipratropium 0.5 Mg)) 1 neb INH Q4H PRN PRN Reason: WHEEZING Allopurinol (Zyloprim Tab*) 100 mg PO DAILY [facility] Last Admin: 05/03/18 08:19 Dose: 100 mg Aspirin (Aspirin Ec Tab*) 81 mg PO QAM [facility] Last Admin: 05/03/18 08:19 Dose: 81 mg Atorvastatin Calcium (Lipitor*) 20 mg PO 2000 [facility] Last Admin: 05/02/18 20:44 Dose: 20 mg Bumetanide (Bumex Tab*) 2 mg PO BID WITH MEALS [facility] Last Admin: 05/03/18 16:35 Dose: 2 mg Carvedilol (Coreg Tab*) 3.125 mg PO BID [facility] Last Admin: 05/03/18 08:20 Dose: 3.125 mg Dextrose (D50w Syringe 50 Ml*) 12.5 gm IV PUSH .FOR FS < 60 - SS PRN PRN Reason: FS < 60 Docusate Sodium (Colace Cap*) 100 mg PO BID [facility] Last Admin: 05/03/18 08:20 Dose: 100 mg Gabapentin (Neurontin Cap(*)) 1,200 mg PO BEDTIME [facility] Last Admin: 05/02/18 20:45 Dose: 1,200 mg Heparin Sodium (Porcine) (Heparin Flush Port (Ivad)) 5 ml FLUSH DAILY [facility]; Protocol Last Admin: 05/03/18 08:23 Dose: Not Given Heparin Sodium (Porcine) (Heparin Vial(*)) 5,000 units SUBCUT Q8HR [facility] Last Admin: 05/03/18 12:54 Dose: 5,000 units Hydralazine HCl (Apresoline Tab*) 10 mg PO TID [facility] Last Admin: 05/03/18 12:54 Dose: 10 mg Insulin Glargine (Lantus(*)) 30 units SUBCUT Q24H [facility] Last Admin: 05/03/18 08:21 Dose: 30 units Isosorbide Mononitrate (Imdur Er Tab*) 30 mg PO DAILY [facility] Last Admin: 05/03/18 08:19 Dose: 30 mg Metolazone (Zaroxolyn Tab*) 5 mg PO MoWeFr@0830 [facility] Last Admin: 05/02/18 08:44 Dose: 5 mg Mometasone Furoate/Formoterol Fumar (Dulera 100/5 Mdi*) 2 puff INH BID [facility] Last Admin: 05/03/18 08:23 Dose: 2 puff Ondansetron HCl (Zofran Tab*) 4 mg PO Q6H PRN PRN Reason: NAUSEA Last Admin: 04/26/18 08:44 Dose: 4 mg Ondansetron HCl (Zofran Inj*) 4 mg IV Q4H PRN PRN Reason: NAUSEA Last Admin: 05/02/18 08:14 Dose: 4 mg Oxybutynin Chloride (Ditropan Tab*) 5 mg PO DAILY [facility] Last Admin: 05/03/18 08:20 Dose: 5 mg Oxycodone/Acetaminophen (Percocet 5/325 Tab*) 1 tab PO Q4H PRN PRN Reason: PAIN Last Admin: 05/03/18 12:54 Dose: 1 tab Polyethylene Glycol/Electrolytes (Miralax*) 17 gm PO DAILY PRN PRN Reason: CONSTIPATION Pramipexole Dihydrochloride (Mirapex Tab*) 0.5 mg PO BEDTIME [facility] Last Admin: 05/02/18 20:48 Dose: 0.5 mg Temazepam (Restoril Cap*) 15 mg PO BEDTIME PRN PRN Reason: INSOMNIA Last Admin: 05/02/18 20:49 Dose: 15 mg Tiotropium [place] (Spiriva Cap.Inh*) 1 cap INH DAILY [facility] Last Admin: 05/03/18 08:23 Dose: 1 cap Vital Signs - 8 hr 05/03/18 05/03/18 05/03/18 10:08 11:40 12:54 Temperature 97.9 F Pulse Rate 61 Respiratory 18 16 18 Rate Blood Pressure 132/68 (mmHg) O2 Sat by Pulse 99 Oximetry 05/03/18 05/03/18 05/03/18 14:37 15:40 15:46 Temperature 98.0 F Pulse Rate 68 Respiratory 18 16 Rate Blood Pressure 157/77 (mmHg) O2 Sat by Pulse 96 96 Oximetry Oxygen Devices in Use Now: None Appearance: 58 yo f in nAD, aAOx3 Eyes: No Scleral Icterus, PERRLA Ears/Nose/Mouth/Throat: NL Teeth, Lips, Gums, Mucous Membranes Moist Neck: NL Appearance and Movements; NL JVP, Trachea Midline Respiratory: Symmetrical Chest Expansion and Respiratory Effort, Clear to Auscultation Cardiovascular: NL Sounds; No Murmurs; No JVD, RRR Abdominal: NL Sounds; No Tenderness; No Distention Lymphatic: No Cervical Adenopathy Extremities: No Edema, No Clubbing, Cyanosis, - - s/p left BKA Skin: No Rash or Ulcers, No Nodules or Sclerosis Neurological: Alert and Oriented x 3 Result Diagrams: 04/30/18 07:50 05/03/18 05:45 Microbiology and Other Data: Microbiology 04/25/18 18:30 Nasal Screen MRSA (PCR) - Final Nasal Mrsa Not Detected Assess/Plan/Problems-Billing Ms Galarza is a 58 yo F who has a history systolic CHF (ischemic CM), CAD, HTN, type II DM, stage III CKD, carotid artery disease, COPD, PVD who has been who was admitted 04/25 with worsening orthopnea, sob and was found to have decompensated heart failure. - Patient Problems (1) Heart failure, systolic, with acute decompensation Comment: cont bumex, zaroxolyn Aldactone stopped due to hyperkalemia, had hyperkalemia due to ACEI also appreciate cardiology consult euvolemic today (2) Joint pain in fingers of left hand Comment: Likely gout in setting of aggressive diuresis. Uric acid>[address] Roman's consult. Unable to tx with NSAIDS due to CKD. Steroids make the sugars uncontrolled, but that can be managed. Was on Prednisone for 2 days with improvement of pain. Will stop it due to marked hyperglycemia and cont Percocet allopurinol started (3) UTI (urinary tract infection) Comment: Urinalysis abnormal on admission.D/w Dr. Damon-pt is likely colonized. No antibiotic tx needed (4) Uncontrolled type II diabetes mellitus Comment: A1c > 10 Uses a pump at home uncontroled due to prednisone use. Back on insulin pump back today (5) Urinary retention Comment: likely neurogenic bladder failed voiding trial started oxybutynin this hosp. stay she reports long history of retention--unable to urinate all day at home sometimes Elected to go home with straight cath. Teaching and supplies will be oragnized in the next 24H. Needs and appt with urology set up at discharge for urodynamics (6) Anemia Comment: H/H stable, at baseline. (7) CKD (chronic kidney disease) stage 3, GFR 30-59 ml/min Comment: Creatinine is at baseline. Likely DM nephropathy (8) Hyperkalemia Comment: resolved after Aldactone d/c 'd (9) DVT prophylaxis Comment: SQ heparin Status and Disposition: inpatient
[2018-05-03] MEDS: Ondansetron INJ* 2 MG/ML VIAL IV PRN (20:03)
[2018-05-03] MEDS: Gabapentin CAP(*) 300 MG PO SCH (20:18)
[2018-05-03] MEDS: Atorvastatin* 20 MG TAB PO SCH (20:19)
[2018-05-03] MEDS: Pramipexole TAB* 0.5 MG PO SCH (20:19)
[2018-05-03] MEDS ORDERED: Insulin LISPRO* 1 UNITS UNIT SUBCUT ONE (20:50)
[2018-05-03] MEDS: Temazepam CAP* 15 MG PO PRN (21:46)
[2018-05-04] MEDS ORDERED: Benzocaine/Menthol LOZ* 1 LOZENGE MT PRN (04:37)
[2018-05-04] MEDS: Heparin VIAL(*) 5000 UNITS/ML VIAL (FIVE THOUSAND) SUBCUT SCH ×2 (04:54→13:19)
[2018-05-04 08:31] VITALS: BP 122/66
[2018-05-04] MEDS: Tiotropium CAP.INH* CAP.INH/18 MCG (USE ORDER SET !) INH SCH (09:16)
[2018-05-04] MEDS: Mometasone/Formoter 100/5 MDI INH SCH (09:16)
[2018-05-04] MEDS: Insulin LISPRO* 1 UNITS UNIT SUBCUT SCH ×2 (09:35→11:57)
[2018-05-04] MEDS: Insulin GLARGINE(*) 1 UNITS UNIT SUBCUT SCH (09:35)
--- NOTE | 2018-05-04 09:48 | PN ---
Subjective Date of Service: 05/04/18 Interval History: Pt is feeling ok. Today she c/o sore throat and mild difficulty swallowing. She denies any SOB. She thinks the edema of her R leg is improved. She continues to have discomfort in the fingers of her L hand but generally it is tolerable. She has not attempted to straight cath yet as each time she was going to try she was able to urinate. She is anxious to be discharged home today. Objective Active Medications: Acetaminophen (Tylenol Tab*) 650 mg PO Q4H PRN PRN Reason: FEVER/PAIN Last Admin: 04/30/18 23:27 Dose: 650 mg Albuterol/Ipratropium (Duoneb (Albuterol 2.5 Mg/Ipratropium 0.5 Mg)) 1 neb INH Q4H PRN PRN Reason: WHEEZING Allopurinol (Zyloprim Tab*) 100 mg PO DAILY [facility] Last Admin: 05/03/18 08:19 Dose: 100 mg Aspirin (Aspirin Ec Tab*) 81 mg PO QA [facility] Last Admin: 05/03/18 08:19 Dose: 81 mg Atorvastatin Calcium (Lipitor*) 20 mg PO 1999 [facility] Last Admin: 05/03/18 20:19 Dose: 20 mg Bumetanide (Bumex Tab*) 2 mg PO BID WITH MEALS [facility] Last Admin: 05/03/18 16:35 Dose: 2 mg Carvedilol (Coreg Tab*) 3.125 mg PO BID [facility] Last Admin: 05/03/18 20:19 Dose: 3.125 mg Dextrose (D50w Syringe 50 Ml*) 12.5 gm IV PUSH .FOR FS < 60 - SS PRN PRN Reason: FS < 60 Docusate Sodium (Colace Cap*) 100 mg PO BID [facility] Last Admin: 05/03/18 20:19 Dose: 100 mg Gabapentin (Neurontin Cap(*)) 1,200 mg PO BEDTIME [facility] Last Admin: 05/03/18 20:18 Dose: 1,200 mg Heparin Sodium (Porcine) (Heparin Flush Port (Ivad)) 5 ml FLUSH DAILY [facility]; Protocol Last Admin: 05/03/18 08:23 Dose: Not Given Heparin Sodium (Porcine) (Heparin Vial(*)) 5,000 units SUBCUT Q8HR [facility] Last Admin: 07/25/18 04:54 Dose: 5,000 units Hydralazine HCl (Apresoline Tab*) 10 mg PO TID [facility] Last Admin: 05/03/18 20:19 Dose: 10 mg Insulin Human Lispro (Humalog*) 0 units SUBCUT ACHS [facility]; Protocol Last Admin: 05/04/18 09:35 Dose: Not Given Isosorbide Mononitrate (Imdur Er Tab*) 30 mg PO DAILY [facility] Last Admin: 05/03/18 08:19 Dose: 30 mg Metolazone (Zaroxolyn Tab*) 5 mg PO MoWeFr@0830 [facility] Last Admin: 05/02/18 08:44 Dose: 5 mg Mometasone Furoate/Formoterol Fumar (Dulera 100/5 Mdi*) 2 puff INH BID [facility] Last Admin: 05/04/18 09:16 Dose: 2 puff Ondansetron HCl (Zofran Tab*) 4 mg PO Q6H PRN PRN Reason: NAUSEA Last Admin: 04/26/18 08:44 Dose: 4 mg Ondansetron HCl (Zofran Inj*) 4 mg IV Q4H PRN PRN Reason: NAUSEA Last Admin: 05/03/18 20:03 Dose: 4 mg Oxybutynin Chloride (Ditropan Tab*) 5 mg PO DAILY [facility] Last Admin: 05/03/18 08:20 Dose: 5 mg Oxycodone/Acetaminophen (Percocet 5/325 Tab*) 1 tab PO Q4H PRN PRN Reason: PAIN Last Admin: 05/03/18 12:54 Dose: 1 tab Polyethylene Glycol/Electrolytes (Miralax*) 17 gm PO DAILY PRN PRN Reason: CONSTIPATION Pramipexole Dihydrochloride (Mirapex Tab*) 0.5 mg PO BEDTIME [facility] Last Admin: 05/03/18 20:19 Dose: 0.5 mg Temazepam (Restoril Cap*) 15 mg PO BEDTIME PRN PRN Reason: INSOMNIA Last Admin: 05/03/18 21:46 Dose: 15 mg Throat Lozenges (Chloraseptic Mynor*) 1 mynor MT Q6H PRN PRN Reason: SORE THROAT Last Admin: 05/04/18 04:52 Dose: 1 mynor Tiotropium [place] (Spiriva Cap.Inh*) 1 cap INH DAILY [facility] Last Admin: 05/04/18 09:16 Dose: 1 cap Vital Signs - 8 hr 05/04/18 05/04/18 05/04/18 03:15 08:16 09:17 Temperature 97.6 F 97.9 F Pulse Rate 71 62 68 Respiratory 20 20 18 Rate Blood Pressure 148/78 122/66 (mmHg) O2 Sat by Pulse 97 98 91 Oximetry Oxygen Devices in Use Now: None Appearance: Middle aged female sitting up in bed, NAD Eyes: No Scleral Icterus Ears/Nose/Mouth/Throat: Mucous Membranes Moist, - - throat with mild cobblestoned appearance Respiratory: Symmetrical Chest Expansion and Respiratory Effort, Clear to Auscultation - few LLL Crackles Cardiovascular: NL Sounds; No Murmurs; No JVD, RRR, - - 1+ R LE edema Abdominal: NL Sounds; No Tenderness; No Distention Lymphatic: No Cervical Adenopathy Extremities: No Clubbing, Cyanosis Skin: No Nodules or Sclerosis Neurological: Alert and Oriented x 3 Result Diagrams: 04/30/18 07:50 05/03/18 05:45 Microbiology and Other Data: Microbiology 04/25/18 18:30 Nasal Screen MRSA (PCR) - Final Nasal Mrsa Not Detected Assess/Plan/Problems-Billing Ms Galarza is a 58 yo F who has a history systolic CHF (ischemic CM), CAD, HTN, type II DM, stage III CKD, carotid artery disease, COPD, PVD who has been who was admitted 04/25 with worsening orthopnea, sob and was found to have decompensated heart failure. - Patient Problems (1) Heart failure, systolic, with acute decompensation Current Visit: Yes Status: Acute Code(s): I50.23 - ACUTE ON CHRONIC SYSTOLIC (CONGESTIVE) HEART FAILURE SNOMED Code(s): 209639633 Comment: Much improved from when I last saw the patient. While she still has LE edema she appears relatively euvolemic. Continue bumex and metolazone at current dose. Follow up with Dr. Johnson as outpatient in next 7-10 days. (2) Joint pain in fingers of left hand Current Visit: Yes Status: Acute Code(s): M25.542 - PAIN IN JOINTS OF LEFT HAND SNOMED Code(s): 449917858 Comment: Likely gout secondary to aggressive diuresis. Continue allopurinol and prn percocet. No more prednisone as sugars are markedly elevated when on steroids. (3) Anemia Current Visit: Yes Status: Chronic Code(s): D64.9 - ANEMIA, UNSPECIFIED SNOMED Code(s): 493503859 Comment: H/H stable but not checked in last 4 days. Will need follow up H/H as outpatient to ensure her H/H remains stable. No signs of bleeding. (4) Uncontrolled type II diabetes mellitus Current Visit: Yes Status: Acute Code(s): E11.65 - TYPE 2 DIABETES MELLITUS WITH HYPERGLYCEMIA SNOMED Code(s): 75274293 Comment: Pt is back on her insulin pump. 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 (5) Urinary retention Current Visit: Yes Status: Deleted Code(s): R33.9 - RETENTION OF URINE, UNSPECIFIED SNOMED Code(s): 419353198 Comment: Likely neurogenic bladder secondary to her longstanding uncontrolled DM. Pt to learn how to straight cath. Should be done at least BID if she is able to otherwise urinate to ensure the bladder is emptied completely twice daily. (6) Right leg weakness Current Visit: Yes Status: Acute Code(s): R29.898 - OTH SYMPTOMS AND SIGNS INVOLVING THE MUSCULOSKELETAL SYSTEM SNOMED Code(s): 567549753 Comment: Unclear cause, neurology saw pt and not clearly CVA. Continue ASA. I question if her weakness may have been due to hypoperfusion from lower BP than what she had been running. Continue ASA. (7) UTI (urinary tract infection) Current Visit: Yes Status: Acute Comment: Likely colonization and not infection. ? if pt has incomplete bladder emptying it is predisposing her to UTIs. She will need to follow up with urology as an outpatient. (8) CKD (chronic kidney disease) stage 3, GFR 30-59 ml/min Current Visit: Yes Status: Chronic Code(s): N18.3 - CHRONIC KIDNEY DISEASE, STAGE 3 (MODERATE) SNOMED Code(s): 222405892 Comment: Creatinine is at baseline. Monitor intermittently. (9) CAD (coronary artery disease) Current Visit: Yes Status: Chronic Code(s): I25.10 - ATHSCL HEART DISEASE OF [place] CORONARY ARTERY W/O ANG PCTRS SNOMED Code(s): 70715481 Comment: CP likely secondary to fluid overload on admission. No resolved. Continue coreg, ASA, lipitor. (10) COPD (chronic obstructive pulmonary disease) Current Visit: Yes Status: Chronic Code(s): J44.9 - CHRONIC OBSTRUCTIVE PULMONARY DISEASE, UNSPECIFIED SNOMED Code(s): 17440647 Comment: Stable with no signs of exacerbation. Contiue spiriva and dulera. (11) HTN (hypertension) Current Visit: Yes Status: Chronic Onset Date: 06/23/14 Code(s): I10 - ESSENTIAL (PRIMARY) HYPERTENSION SNOMED Code(s): 36490106 Comment: BP is under ok control. Continue coreg, hydralazine and imdur. Follow up with Dr. Johnson for further adjustments. No ACEI secondary to hyperkalemia. (12) HLD (hyperlipidemia) Current Visit: Yes Status: Chronic Code(s): E78.5 - HYPERLIPIDEMIA, UNSPECIFIED SNOMED Code(s): 01417147 Comment: Continue lipitor. (13) Peripheral vascular disease Current Visit: Yes Status: Chronic Code(s): I73.9 - PERIPHERAL VASCULAR DISEASE, UNSPECIFIED SNOMED Code(s): 345743300 Comment: Stable. Continue ASA and statin. Likely worsened by uncontrolled DM. (14) DVT prophylaxis Current Visit: Yes Status: Acute Code(s): UUC7958 - SNOMED Code(s): 422367444 Comment: SQ heparin (15) Full code status Current Visit: Yes Status: Acute Code(s): Z78.9 - OTHER SPECIFIED HEALTH STATUS SNOMED Code(s): 543556197 Status and Disposition: inpatient
[2018-05-04] MEDS: Carvedilol TAB* 3.125 MG PO SCH (10:09)
[2018-05-04] MEDS: Oxybutynin TAB* 5 MG PO SCH (10:10)
[2018-05-04] MEDS: hydrALAZINE TAB* 10 MG PO SCH ×2 (10:10→13:19)
[2018-05-04] MEDS: Aspirin EC TAB* 81 MG TAB.EC PO SCH (10:11)
[2018-05-04] MEDS: Allopurinol TAB* 100 MG PO SCH (10:11)
[2018-05-04] MEDS: Isosorbide Mononitrate ER TAB* 30 MG PO SCH (10:12)
[2018-05-04] MEDS: Metolazone TAB* 5 MG PO SCH (10:12)
[2018-05-04] MEDS: Docusate CAP* 100 MG PO SCH (10:13)
[2018-05-04] MEDS: Bumetanide TAB* 2 MG PO SCH (11:44)
--- NOTE | 2018-05-05 11:38 | DS ---
CC: Dr. Johnson; Dr. León; Dr. Damon * DISCHARGE SUMMARY: DATE OF ADMISSION: 04/25/18 DATE OF DISCHARGE: 05/04/18 PRIMARY CARE PROVIDER: Dr. León. QA TECH: Dr. Johnson. PRINCIPAL DIAGNOSES: 1. Acute decompensated, probable mixed systolic and diastolic congestive heart failure. 2. Urinary retention, likely secondary to neurogenic bladder, likely secondary to uncontrolled type 2 diabetes. 3. Type 2 diabetes - complicated by peripheral vascular disease. 4. Right leg heaviness of unclear etiology, doubt cerebrovascular accident. 5. Gout of the left hand. 6. Anemia, likely chronic kidney disease. 7. Stage 3 chronic kidney disease, likely secondary to diabetic nephropathy. 8. Coronary artery disease. 9. Chronic obstructive pulmonary disease. 10. Hypertension. 11. Hyperlipidemia. DISCHARGE MEDICATIONS: 1. Hydralazine 10 mg p.o. t.i.d. 2. Metolazone 5 mg p.o. daily. 3. Spiriva 1 puff inhaled daily. 4. Gabapentin 1800 to 2400 mg p.o. q.h.s. 5. Tylenol 650 mg p.o. q.4 hours p.r.n. pain. 6. Colace 100 mg p.o. b.i.d. 7. Coreg 3.125 mg p.o. b.i.d. 8. Lipitor 20 mg p.o. daily. 9. Aspirin 81 mg p.o. daily. 10. DuoNeb 1 neb inhaled q.4 hours p.r.n. shortness of breath. 11. Mirapex 0.5 mg p.o. q.h.s. 12. Zofran 4 mg p.o. q.6 hours p.r.n. nausea. 13. Dulera 100/5 two puffs inhaled twice daily. 14. Heparin Flush for port daily. 15. Humalog insulin via insulin pump. 16. Percocet 5/325 one tab p.o. q.4 hours p.r.n. pain, dispense 20 tablets. 17. Oxybutynin 5 mg p.o. daily (new). 18. Imdur 30 mg p.o. daily (new). 19. Bumex 2 mg p.o. b.i.d. (new). 20. Allopurinol 100 mg p.o. daily (new). HOSPITAL COURSE: Ms. Galarza is a 58-year-old female with complicated past medical history significant for uncontrolled type 2 diabetes with numerous complications including nephropathy, neuropathy, and peripheral vascular disease. The patient had been following with Dr. Johnson as an outpatient for decompensated heart failure. She had been receiving intermittent doses of IV diuretic as an outpatient; however, on the day of admission, the patient was noted to be markedly hypertensive with blood pressures in the 180s/130 range. She also was noted to be markedly fluid overloaded and was sent to the emergency room for evaluation. The patient was admitted and started on nitroglycerin drip. Ultimately, with very aggressive IV diuresis, the patient' s fluid status improved. She was changed from torsemide, which she had been taking as an outpatient to Bumex. She will continue on metolazone. The patient feels that her edema is markedly improved at this point. The patient will need to follow up with Dr. Johnson in the very near future to ensure that she remains stable in terms of her fluid status. In terms of the patient's marked hypertension, again this was being treated initially with nitroglycerin drip; however, the patient did develop an episode of right arm and leg weakness. This was when her blood pressure dipped low after being markedly elevated for quite some time. I suspect this was related to hypoperfusion from her low blood pressure. It was not clear that she had a stroke. She was seen in consultation by Dr. Patricio, who recommended keeping her blood pressure liberalized and continuing aspirin. With time, the patient's blood pressure was improved by adding Imdur to her baseline medication regimen of Coreg and hydralazine. She will continue on the Imdur as an outpatient. The patient was also identified to have urinary retention. This was felt to be likely secondary to a neurogenic bladder likely from her uncontrolled type 2 diabetes. It became clear that the patient would likely benefit from straight catheterization. The patient has been instructed on how to do this. She has been urinating intermittently throughout the day. Since she is able to urinate some, I have recommended to her that she straight cath at least twice daily, but up to 4 times daily. A prescription for the catheter supplies have been provided to the patient as has educational materials. The patient has had frequent urinary tract infections; however, I question if maybe this is related to incomplete bladder emptying predisposing her to infection. The patient did grow E. coli from a urine sample obtained on admission. As the patient was afebrile and did not have a marked leukocytosis, it was felt this likely represented a contaminant and the patient was not treated for urinary tract infection. In the setting of the aggressive diuresis, the patient began to develop severe pain in the fingers of her left hand. She was seen in consultation by Dr. Shin from Orthopedics. It was felt that the pain in her fingers is likely secondary to gout. She was initially started on prednisone; however, with this, her sugars became markedly uncontrolled. The prednisone was discontinued and she was started on allopurinol and Percocet. Overall, she has had significant improvement in her symptoms; however, she does still continue to have some pain and therefore will be discharged with both the allopurinol and Percocet. She will need to follow up with her primary care provider to determine if she needs to stay on the allopurinol. The patient has chronic anemia. When she presented, her hemoglobin was 8.6. She dropped to 7.4 for unclear reasons. Without intervention, her hemoglobin as of last check on 04/30/18 had improved to 7.9. The patient will need to have this followed intermittently as an outpatient. I suspect her anemia is anemia of chronic kidney disease. The patient carries a history of COPD. She has been able to be weaned from oxygen. She will continue with her Spiriva and Dulera as well as p.r.n. DuoNebs. FOLLOWUP CONCERNS: The patient is being discharged to home today, 05/04/18. ACTIVITY LEVEL: As tolerated. DIET: Diabetic, no added salt. CONDITION ON DISCHARGE: Stable. The patient has set an appointment to see Dr. León on 05/13/18 at 3:30 p.m. She is to follow up with Dr. Johnson in the next 7 to 10 days. I have contacted his office and his office will get a hold of the patient to set up an appointment, date, and time. Additionally, I have explained to the patient that she should follow up with Urology as an outpatient due to the incomplete bladder emptying. TIME SPENT: Forty-five minutes was spent discharging this patient out of which greater than half was spent [id number] with the patient reviewing her discharge plan and instructions. [id number]/CPS #: [id number] MTDD
== END 2018-05-04 12:56 | disposition home health service (06) | DRG 291 ==
LOC: ED 11:40 → ICU 15:04 → MEDTELE 04-27 21:50
PROVIDERS: ADMIT Hospitalist; ATTEND Hospitalist
PROC: 0T9B70Z Drainage of Bladder with Drainage Device, Via Natural or Artificial Opening (ICD-10-PCS; principal; 2018-04-26)
DX: I13.0 Hypertensive heart and chronic kidney disease with heart failure and stage 1 through stage 4 chronic kidney disease, or unspecified chronic kidney disease (principal); I50.43 Acute on chronic combined systolic (congestive) and diastolic (congestive) heart failure; J96.01 Acute respiratory failure with hypoxia; I63.9 Cerebral infarction, unspecified; G81.91 Hemiplegia, unspecified affecting right dominant side; E04.9 Nontoxic goiter, unspecified; I25.10 Atherosclerotic heart disease of native coronary artery without angina pectoris; E11.51 Type 2 diabetes mellitus with diabetic peripheral angiopathy without gangrene; E78.5 Hyperlipidemia, unspecified; J44.9 Chronic obstructive pulmonary disease, unspecified; G47.30 Sleep apnea, unspecified; M19.90 Unspecified osteoarthritis, unspecified site; M41.9 Scoliosis, unspecified; G25.81 Restless legs syndrome; E11.36 Type 2 diabetes mellitus with diabetic cataract; H54.7 Unspecified visual loss; H91.90 Unspecified hearing loss, unspecified ear; G43.909 Migraine, unspecified, not intractable, without status migrainosus; E11.42 Type 2 diabetes mellitus with diabetic polyneuropathy; F32.9 Major depressive disorder, single episode, unspecified; F41.9 Anxiety disorder, unspecified; E11.22 Type 2 diabetes mellitus with diabetic chronic kidney disease; M48.00 Spinal stenosis, site unspecified; N18.3 Chronic kidney disease, stage 3 (moderate); E11.43 Type 2 diabetes mellitus with diabetic autonomic (poly)neuropathy; K31.84 Gastroparesis; D63.1 Anemia in chronic kidney disease; I70.208 Unspecified atherosclerosis of native arteries of extremities, other extremity; M19.042 Primary osteoarthritis, left hand; R53.1 Weakness; I25.5 Ischemic cardiomyopathy; R33.9 Retention of urine, unspecified; N31.9 Neuromuscular dysfunction of bladder, unspecified; I95.9 Hypotension, unspecified; H91.91 Unspecified hearing loss, right ear; M79.7 Fibromyalgia; I08.1 Rheumatic disorders of both mitral and tricuspid valves; H26.9 Unspecified cataract; I44.7 Left bundle-branch block, unspecified; E11.65 Type 2 diabetes mellitus with hyperglycemia; M10.042 Idiopathic gout, left hand; E87.5 Hyperkalemia; E11.21 Type 2 diabetes mellitus with diabetic nephropathy; Z99.81 Dependence on supplemental oxygen; Z87.440 Personal history of urinary (tract) infections; Z87.39 Personal history of other diseases of the musculoskeletal system and connective tissue; Z86.73 Personal history of transient ischemic attack (TIA), and cerebral infarction without residual deficits; Z90.710 Acquired absence of both cervix and uterus; Z89.412 Acquired absence of left great toe; Z98.1 Arthrodesis status; Z95.5 Presence of coronary angioplasty implant and graft; Z90.49 Acquired absence of other specified parts of digestive tract; Z89.512 Acquired absence of left leg below knee; Z88.0 Allergy status to penicillin; Z88.5 Allergy status to narcotic agent; Z88.2 Allergy status to sulfonamides; Z88.8 Allergy status to other drugs, medicaments and biological substances; Z91.030 Bee allergy status; Z95.810 Presence of automatic (implantable) cardiac defibrillator; I25.2 Old myocardial infarction; Z95.1 Presence of aortocoronary bypass graft; Z86.711 Personal history of pulmonary embolism; Z87.01 Personal history of pneumonia (recurrent); Z79.01 Long term (current) use of anticoagulants; Z79.82 Long term (current) use of aspirin; Z79.51 Long term (current) use of inhaled steroids; Z79.4 Long term (current) use of insulin; Z96.41 Presence of insulin pump (external) (internal); Z88.1 Allergy status to other antibiotic agents; Z87.891 Personal history of nicotine dependence
CPT/HCPCS: 36415; 70450; 71045; 73140; 80048; 80053; 81003; 81015; 82947; 83036; 83605; 83690; 83735; 83880; 84443; 84484; 85014; 85018; 85025; 85027; 85610; 85652; 86140; 87040; 87077; 87086; 87186; 87641; 93005; 93880; 94640; 96365; 99283; A9270-GY; G8978-GP-CI; G8979-GP-CI; G8980-GP-CI; J0744; J1642; J1644; J1940; J2185; J2270; J2405; J3370; J7512

== ENCOUNTER 2018-07-04 15:35 | Inpatient (IN) | payer MEDICARE, MEDICAID ==
--- OUTSIDE RECORDS SUMMARY | 2018-07-04 16:30 | XMS REPORT | Continuity of Care Document ---
:1960 External Reference #:[id number] Author Name Valencia Carrington NP Address [address] [place] [address] Care Team Providers Name Role Phone Matilde León M.D. Primary Care Physician Unavailable Payers Type Date Identification Numbers Payment Provider Subscriber Policy Number: [id number] [employer] David Mesa PayID: [id number] [address] [address] [place] [address] Effective: 2017 Policy Number: [id number] Medicaid [place] David Mesa PayID: [id number] [address] [place] [address] Advance Directives Description No Information Available Problems Description No Information Family History Description No Information Available Social History Type Date Description Comments Sex Unknown Tobacco Use Start: Unknown current cigarette smoker Smoking Status Reviewed: 11/23/17 current cigarette smoker Smokeless Tobacco Never Used Smokeless Tobacco ETOH Use Denies alcohol use Recreational Drug Use Denies Drug Use Tobacco Use Start: Unknown Patient is a current smoker, smokes every day Allergies, Adverse Reactions, Alerts Date Description Reaction Status Severity Comments 11/23/2017 Penicillin Urticaria Active 11/23/2017 sulfa Urticaria Active 11/23/2017 Cefazolin Active 03/29/2018 Reglan "made me feel weird" Active 02/12/2015 Doxycycline Active 11/23/2017 Vancomycin Active 11/23/2017 Bee Sting Anaphylaxis, Urticaria Active Severe 11/23/2017 Meropenem diarrhea Active 11/23/2017 Doxy Anaphylaxis, Urticaria, face swells Active Severe 11/23/2017 Benadryl Urticaria Active Medications Medication Date Status Form Strength Qnty SIG Indications Ordering Provider Contour Next 06/17/ Active Strips 600un tests 6 Valencia A Blood Glucose 2018 its times a day Kaleb Carrington NP Glucagon 05/12/ Active Kit 1mg 1unit as directed Valencia Jones Emergency 2017 s Carrington, [facility] Humalog 04/29/ Active Solution 100Unit/M 30ml use as Valencia Jones 2017 L directed Carrington, via insulin [facility] pump [id number] BD Pen 11/23/ Active Misc 32G X 4 300un 10 every Guero V. Needle/Sonia/Ultr 2018 mm day Zygmonmick a Fine/32G X 4mm injections Enalapril / Active Tablets 2.5mg 1 by mouth Unknown Maleate 0000 every day Plavix / Active Tablets 75mg 1 by mouth Unknown 0000 every day Spironolactone / Active Tablets 25mg 1/2 by Unknown 0000 mouth every day Atorvastatin / Active Tablets 20mg 1 by mouth Unknown Calcium 0000 every day Acetaminophen / Active Tablets 500mg 2 tab every Unknown 0000 8 hours prn Dulera / Active Aerosol 100-5mcg/ take 2 Unknown 0000 Act puffs two times a day Metolazone / Active Tablets 5mg 1 tab by Unknown 0000 mouth every other day 30 minutes prior to torsemide Onetouch Delica / Active Misc 30G 4 checks Unknown Lancets Fine 30G 0000 per day Jazmine Contour / Active Kit w/Device Unknown Link 2.4 Blood 0000 Glucose Monitoring System Spiriva / Active Capsules 18mcg one cap Unknown Handihaler 0000 handihaler once a day Torsemide / Active Tablets 20mg 1 by mouth Unknown 0000 every day Nitrostat / Active Tablets 0.4mg 1 tab sl Unknown 0000 Sub every 5 min as needed cp/sob Gabapentin / Active Tablets 600mg 3-4 tab by Unknown 0000 mouth at bedtime Mirapex / Active Tablets 1mg 5 tab by Unknown 0000 mouth at bedtime as directed Aspir-81 / Active Tablets DR 81mg 1 by mouth Unknown 0000 every day Glucagon / Active Kit 1mg as directed Unknown Emergency 0000 Epipen 2-Abdi / Active Solution 0.3mg/0.3 to use for Unknown 0000 Auto-Injec ML severe t allergic reaction or problems breathing Carvedilol / Active Tablets 3.125mg 1 by mouth Unknown 0000 qam 1/2qpm Ipratropium 00/ Active Solution 0.5-2.5(3 inhale Unknown [place]/Albutero 0000 )mg/3ML contents of l Sulfate one dose vial by mouth via nebulizer four times a day as needed Metoclopramide / Active Tablets 5mg 1 by mouth Unknown HCL 0000 three times a day Isosorbide / Active Tablets 10mg Unknown Dinitrate 0000 Oxycodone HCL / Active Tablets 5mg 1-2 by Unknown 0000 mouth every 4 hours as needed Jazmine Contour 05/12/ Hx Strips 400un checking 4 Valencia A Blood Glucose 2018 - its times a day Carrington, Test Strips [facility] 2018 Humalog Kwikpen / Hx Solution 100Unit/M 15ml to use in Valencia A 0000 - Pen-Inject L insulin Carrington, 04/29/ pump MDD [facility] 2017 100u BD Pen [place] / Hx Misc 31G X 8 use with Unknown Short/Ultrafine/ 0000 - mm lantus pen 31G X 5/16" daily 2018 Lantus Solostar / Hx Solution 100Unit/M 30 unit Unknown 0000 - Pen-Inject L twice a day 2017 Immunizations Description No Information Available Vital Signs Date Vital Result Comment 06/17/2018 1:45pm BP Systolic 116 mmHg BP Diastolic 66 mmHg Heart Rate 68 /min Respiratory Rate 18 /min Hemoglobin A1C 7.9% done in office today 05/12/2018 3:32pm Weight 145.00 lb Weight 65.772 kg BP Systolic 118 mmHg BP Diastolic 70 mmHg 04/12/2018 1:24pm BP Systolic 124 mmHg BP Diastolic 76 mmHg Heart Rate 74 /min Respiratory Rate 18 /min Hemoglobin A1C 9.6% done in office today 03/29/2018 1:16pm Weight 158.00 lb Weight 71.668 kg Heart Rate 87 /min Body Temperature 99.1 F O2 % BldC Oximetry 97 % 03/28/2018 8:59am Weight 150.00 lb Weight 68.039 kg BMI (Body Mass Index) 28.3 kg/m2 Heart Rate 80 /min Respiratory Rate 16 /min Height 61 inches Height in cm's 154.9 cm 03/14/2018 11:10am Weight 150.00 lb Weight 68.039 kg BMI (Body Mass Index) 28.3 kg/m2 Heart Rate 85 /min Body Temperature 98.5 F Height 61 inches Height in cm's 154.9 cm O2 % BldC Oximetry 97 % 01/21/2018 3:40pm Weight 145.00 lb Weight 65.771 kg Heart Rate 85 /min Body Temperature 98.0 F O2 % BldC Oximetry 94 % 01/07/2018 2:48pm Weight 147.50 lb Weight 66.905 kg BMI (Body Mass Index) 27.9 kg/m2 BP Systolic 148 mmHg BP Diastolic 80 mmHg Heart Rate 83 /min Body Temperature 97.1 F Height 61 inches Height in cm's 154.9 cm O2 % BldC Oximetry 95 % 12/30/2017 11:29am Weight 146.00 lb Weight 66.224 kg BMI (Body Mass Index) 26.7 kg/m2 BP Systolic 118 mmHg BP Diastolic 72 mmHg Body Temperature 97.1 F Respiratory Rate 16 /min Height 62 inches Height in cm's 157.5 cm 11/23/2017 10:59am Weight 126.00 lb stated weight Weight 57.154 kg BMI (Body Mass Index) 23.0 kg/m2 BP Systolic 126 mmHg BP Diastolic 74 mmHg Heart Rate 78 /min Respiratory Rate 18 /min Height 62 inches 5'2" Height in cm's 157.5 cm Hemoglobin A1C 16.4% done by PCP 11/03/17 Results Test Date Facility Test Result H/L Range Note CBC Auto Diff 05/18/2018 N2N/CCD Import Abs Basophils 0.1 10^3/uL 0-0.2 Abs Eosinophils 0.2 10^3/uL 0-0.6 Abs Lymphocytes 0.9 10^3/uL Low 1.0-4.8 Abs Monocytes 0.4 10^3/uL 0-0.8 Abs Neutrophils 8.4 10^3/uL High 1.5-7.7 Abs Nucleated RBC 0 10^3/uL Basophil % 1.3 % 0-2 Eosinophil % 2.2 % 0-6 Granulocyte % 83.1 % High 38-83 Hematocrit 26 % Low 35-47 Hemoglobin 8.3 g/dL Low 12.0-16.0 Lymphocyte % 9.3 % Low 25-47 Mean Corpuscular HGB Conc 31 g/dL 31-36 Mean Corpuscular Hemoglobin 26 pg Low 27-31 Mean Corpuscular Volume 84 fL 80-97 Mean Platelet Volume 8.7 um3 7.4-10.4 Monocyte % 4.1 % 0-7 Nucleated Red Blood Cells % 0.1 1 Platelet Count 388 10^3/uL 150-450 Red Blood Count 3.16 10^6/uL Low 4.00-5.40 Red Cell Distribution Width 22 % High 10.5-15 White Blood Count 10.1 10^3/uL 3.5-10.8 Basic Metabolic Panel 05/18/2018 [facility] Import Anion Gap 9 mmol/L 2-11 BUN/Creatinine Ratio 41.0 1 High 8-20 Blood Urea Nitrogen 77 mg/dL High 6-24 Calcium 8.9 mg/dL 8.6-10.3 Chloride 99 mmol/L Low 101-111 Co2 Carbon Dioxide 28 mmol/L 22-32 Creatinine 1.88 mg/dL High 0.51-0.95 Egfr 33.4 1 >60 1 Egfr Non- 27.6 1 >60 Glucose 282 mg/dL High 70-100 Potassium 3.5 mmol/L 3.5-5.0 Sodium 136 mmol/L 135-145 Urinalysis Profile 05/18/2018 [facility] Import Urine Appearance Turbid Urine Bacteria Absent Absent Urine Bilirubin Negative Negative Urine Blood 1+ Negative Urine Color Yellow Urine Glucose 1+(50 mg/dL) Negative Urine Ketones Negative Negative Urine Leukocytes 3+ Negative Urine Nitrite Negative Negative Urine Protein 3+(>=500 mg/dL) Negative Urine Red Blood Cell 3+(>10/hpf) Absent Urine Specific [place] 1.010 1 1.010-1.030 Urine Urobilinogen Negative Negative Urine White Blood Cell 3+(>20/hpf) Absent Urine pH 5.0 1 5-9 Laboratory test 05/18/2018 [facility] Import C Reactive 17.67 mg/L High < 8.01 finding Protein Urine Culture And 05/18/2018 [facility] Import Urine Culture See Result 2 Sensitivities Below Urinalysis Profile 05/06/2018 [facility] Import Urine Appearance Clear Urine Bacteria Absent Absent Urine Bilirubin Negative Negative Urine Blood 1+ Negative Urine Color Yellow Urine Glucose 2+(150 mg/dL) Negative Urine Ketones Negative Negative Urine Leukocytes Negative Negative Urine Nitrite Negative Negative Urine Protein 3+(>=500 mg/dL) Negative Urine Red Blood Cell 1+(3-5/hpf) Absent Urine Specific [place] 1.014 1 1.010-1.030 Urine Squamous Epithelial Cell Present Absent Urine Urobilinogen Negative Negative Urine White Blood Cell 1+(6-10/hpf) Absent Urine pH 7.0 1 5-9 Urine Culture And 05/06/2018 N2N/CCD Import Urine Culture See Result 3 Sensitivities Below Laboratory test 04/26/2018 N2N/CCD Import Hemoglobin A1c 10.1 1 finding Urinalysis Profile 04/25/2018 N2N/CCD Import Urine Appearance Cloudy Urine Bacteria 3+ Absent Urine Bilirubin Negative Negative Urine Blood 1+ Negative Urine Color Yellow Urine Glucose 3+(>=500 mg/dL) Negative Urine Ketones Negative Negative Urine Leukocytes Negative Negative Urine Nitrite Positive Negative Urine Protein 3+(>=500 mg/dL) Negative Urine Red Blood Cell 1+(3-5/hpf) Absent Urine Specific [place] 1.016 1 1.010-1.030 Urine Urobilinogen Negative Negative Urine White Blood Cell 3+(>20/hpf) Absent Urine pH 6.0 1 5-9 Urine Culture And 04/25/2018 N2N/CCD Import Urine Culture See Result 4 Sensitivities Below Urine Culture And 03/30/2018 N2N/CCD Import Urine Culture See Result 5 , 6 Sensitivities Below Laboratory test 03/14/2018 N2N/CCD Import Influenza A Negative Negative 7 finding Molecular Influenza B Molecular Negative Negative Inr/Protime 03/14/2018 N2N/CCD Import Inr 0.93 1 0.77-1.02 Laboratory test 03/14/2018 N2N/CCD Import Rapid Influenza See Result 8 finding A B Antigen Below CBC Auto Diff 03/14/2018 N2N/CCD Import Abs Basophils 0.1 10^3/uL 0-0.2 Abs Eosinophils 0.3 10^3/uL 0-0.6 Abs Lymphocytes 0.9 10^3/uL Low 1.0-4.8 Abs Monocytes 0.6 10^3/uL 0-0.8 Abs Neutrophils 7.2 10^3/uL 1.5-7.7 Abs Nucleated RBC 0 10^3/uL Basophil % 1.0 % 0-2 Eosinophil % 2.9 % 0-6 Granulocyte % 79.4 % 38-83 Hematocrit 28 % Low 35-47 Hemoglobin 8.9 g/dL Low 12.0-16.0 Lymphocyte % 9.5 % Low 25-47 Mean Corpuscular HGB Conc 32 g/dL 31-36 Mean Corpuscular Hemoglobin 29 pg 27-31 Mean Corpuscular Volume 89 fL 80-97 Mean Platelet Volume 8.8 um3 7.4-10.4 Monocyte % 7.2 % High 0-7 Nucleated Red Blood Cells % 0 1 Platelet Count 252 10^3/uL 150-450 Red Blood Count 3.11 10^6/uL Low 4.0-5.4 Red Cell Distribution Width 18 % High 10.5-15 White Blood Count 9.0 10^3/uL 3.5-10.8 Urinalysis Profile 03/14/2018 N2N/CCD Import Urine Appearance Cloudy Urine Bacteria Absent Absent Urine Bilirubin Negative Negative Urine Blood 1+ Negative Urine Color Yellow Urine Glucose 2+(150 mg/dL) Negative Urine Hyaline Casts Present Absent Urine Ketones Negative Negative Urine Leukocytes Trace Negative Urine Nitrite Negative Negative Urine Protein 3+(>=500 mg/dL) Negative Urine Red Blood Cell Absent Absent Urine Specific [place] 1.012 1 1.010-1.030 Urine Squamous Epithelial Cell Present Absent Urine Urobilinogen Negative Negative Urine White Blood Cell 2+(11-20/hpf) Absent Urine pH 5.0 1 5-9 Laboratory test finding 03/14/2018 N2N/CCD Import Albumin 2.7 g/dL Low 3.2-5.2 Albumin/Globulin Ratio 0.8 1 Low 1-3 Alkaline Phosphatase 91 U/L 34-104 Alt 4 U/L Low 7-52 Anion Gap 6 mmol/L 2-11 Ast 11 U/L Low 13-39 B-Type Natriuretic Peptide BNP 1177 pg/mL High 9 BUN/Creatinine Ratio 23.7 1 High 8-20 Blood Culture See Result Below 10 Blood Urea Nitrogen 36 mg/dL High 6-24 C Reactive Protein 35.77 mg/L High < 5.00 11 Calcium 8.5 mg/dL Low 8.6-10.3 Chloride 104 mmol/L 101-111 Co2 Carbon Dioxide 29 mmol/L 22-32 Creatine Kinase(CK) 325 U/L High 10-223 Creatinine 1.52 mg/dL High 0.51-0.95 Egfr 45.5 1 >60 12 Egfr Non- 35.4 1 >60 Erythrocyte Sed Rate 107 mm/Hr High 0-30 Globulin 3.2 g/dL 2-4 Glucose 79 mg/dL 70-100 Lactic Acid 0.8 mmol/L 0.5-2.0 13 Partial Thrombo Time PTT 34.2 s 26.0-36.3 Potassium 4.0 mmol/L 3.5-5.0 Sodium 139 mmol/L 139-145 Sputum Culture Gram Stain See Result Below 14 Total Bilirubin 0.40 mg/dL 0.2-1.0 Total Protein 5.9 g/dL Low 6.4-8.9 Troponin-I (TnI) 0.03 ng/mL <0.04 Urine Culture And 03/14/2018 N2N/CCD Import Urine Culture See Result 15 Sensitivities Below Laboratory test 01/21/2018 N2N/CCD Import Urine Collection 24 hr finding Time Urine Random Total Protein 134 mg/dL Urine Total Protein/24HR 1139 mg/24Hr High 0-165 Urine Total Volume 850 mL Creatinine Clearance 01/21/2018 N2N/CCD Import Creatinine 1.53 mg/dL High 0.51-0.95 Creatinine Clearance 22 mL/min Low 88-128 Urine Collection Time 24 hr Urine Random Creatinine 56.14 mg/dL Urine Total Volume 850 mL Laboratory test finding 01/14/2018 N2N/CCD Import Albumin 3.7 g/dL 3.2- 5.2 Albumin/Globulin Ratio 1.1 1 1-3 Alkaline Phosphatase 120 U/L High 34-104 Alt 8 U/L 7-52 Anion Gap 7 mmol/L 2-11 Ast 14 U/L 13-39 B-Type Natriuretic Peptide BNP 326 pg/mL High 16 BUN/Creatinine Ratio 30.3 1 High 8-20 Blood Urea Nitrogen 43 mg/dL High 6-24 C Reactive Protein 7.49 mg/L High < 5.00 17 Calcium 9.7 mg/dL 8.6-10.3 Chloride 107 mmol/L 101-111 Co2 Carbon Dioxide 25 mmol/L 22-32 Creatinine 1.42 mg/dL High 0.51-0.95 Egfr 49.2 1 >60 18 Egfr Non- 38.3 1 >60 Globulin 3.5 g/dL 2-4 Glucose 204 mg/dL High 70-100 Lactic Acid 1.3 mmol/L 0.5-2.0 19 Lipase 15 U/L 11.0-82.0 Potassium 4.5 mmol/L 3.5-5.0 Sodium 139 mmol/L 139-145 Total Bilirubin 0.40 mg/dL 0.2-1.0 Total Protein 7.2 g/dL 6.4-8.9 CBC Auto Diff 01/14/2018 N2N/CCD Import Abs Basophils 0.1 10^3/uL 0-0.2 Abs Eosinophils 0.1 10^3/uL 0-0.6 Abs Lymphocytes 1.4 10^3/uL 1.0-4.8 Abs Monocytes 0.4 10^3/uL 0-0.8 Abs Neutrophils 5.4 10^3/uL 1.5-7.7 Abs Nucleated RBC 0 10^3/uL Basophil % 0.8 % 0-2 Eosinophil % 1.3 % 0-6 Granulocyte % 73.8 % 38-83 Hematocrit 30 % Low 35-47 Hemoglobin 9.6 g/dL Low 12.0-16.0 Lymphocyte % 18.9 % Low 25-47 Mean Corpuscular HGB Conc 32 g/dL 31-36 Mean Corpuscular Hemoglobin 30 pg 27-31 Mean Corpuscular Volume 94 fL 80-97 Mean Platelet Volume 9.5 um3 7.4-10.4 Monocyte % 5.2 % 0-7 Nucleated Red Blood Cells % 0 1 Platelet Count 299 10^3/uL 150-450 Red Blood Count 3.20 10^6/uL Low 4.0-5.4 Red Cell Distribution Width 21 % High 10.5-15 White Blood Count 7.4 10^3/uL 3.5-10.8 Urinalysis Profile 01/14/2018 N2N/CCD Import Urine Appearance Turbid Urine Bacteria 1+ Absent Urine Bilirubin Negative Negative Urine Blood 2+ Negative Urine Color Perri Urine Glucose 3+(>=500 mg/dL) Negative Urine Hyaline Casts Present Absent Urine Ketones Negative Negative Urine Leukocytes 3+ Negative Urine Nitrite Negative Negative Urine Protein 3+(>=500 mg/dL) Negative Urine Red Blood Cell 2+(6-10/hpf) Absent Urine Specific [place] 1.015 1 1.010-1.030 Urine Squamous Epithelial Cell Present Absent Urine Urobilinogen Negative Negative Urine White Blood Cell 3+(>20/hpf) Absent Urine pH 5.0 1 5-9 Urine Culture And 01/14/2018 N2N/CCD Import Urine Culture See Result 20 Sensitivities Below Urine Culture And 01/12/2018 N2N/CCD Import Urine Culture See Result 21 Sensitivities Below Urinalysis Profile 01/12/2018 N2N/CCD Import Urine Appearance Cloudy Urine Bacteria Absent Absent Urine Bilirubin Negative Negative Urine Blood 2+ Negative Urine Color Yellow Urine Glucose 3+(>=500 mg/dL) Negative Urine Ketones Negative Negative Urine Leukocytes 1+ Negative Urine Nitrite Negative Negative Urine Protein 3+(>=500 mg/dL) Negative Urine Red Blood Cell Trace(0-2/hpf) Absent Urine Specific [place] 1.016 1 1.010-1.030 Urine Squamous Epithelial Cell Present Absent Urine Urobilinogen Negative Negative Urine White Blood Cell 3+(>20/hpf) Absent Urine pH 5.0 1 5-9 1 Because ethnic data is not always readily available, this report includes an eGFR for both -Americans and non- Americans. The National Kidney Disease Education Program (NKDEP) does not endorse the use of the MDRD equation for patients that are not between the ages of 18 and 70, are , have extremes of body size, muscle mass, or nutritional status, or are non- or non-. According to the National Kidney Foundation, irrespective of diagnosis, the stage of the disease is based on the level of kidney function: Stage Description GFR(mL/min/1.73 m(2)) 1 Kidney damage with normal or decreased GFR 90 2 Kidney damage with mild decrease in GFR 60-89 3 Moderate decrease in GFR 30-59 4 Severe decrease in GFR 15-29 5 Kidney failure <15 (or dialysis) 2 SEE RESULT BELOW Name: DAVID MESA : [address]: Janusz Cutler MD Acct: [id number] Unit: [id number] AGE: 58 Location: [facility] Re05/18/18 SEX: F Status: REG REF SPEC: [id number] VIANNEY: 05/18/[address] [facility] [address]: Matilde León MD REQ: [id number] RECD: 05/18/18 STATUS: MICHAEL RIZVI DR: Janusz Johnson MD _ SOURCE: URINE SPDESC: ORDERED: Urine Culture QUERIES: Urine Source: Clean Catch Procedure Result Reported Site Urine Culture Final 05/20/18- 820 ML Organism 1 ESCHERICHIA COLI Adams Count >100,000 (Many) CFU/ML 1. ESCHERICHIA COLI M.I.C. RX --------- ------ Ampicillin >=32 R Cefazolin >=64 R Cefepime <=1 S Ceftriaxone 16 I Ciprofloxacin >=4 R Gentamicin <=1 S Levofloxacin >=8 R Meropenem <=0.25 S Nitrofurantoin <=16 S Tetracycline >=16 R Pipercillin/Tazobactam >=128 R Trimethoprim/Sulfamethoxazole <=20 S Amoxicillin/Clavulanic Acid >=32 R Aztreonam 16 I Contact the Microbiology Department for any additional antibiotic reporting. * ML - Main Lab . END OF REPORT DEPARTMENT OF PATHOLOGY, [address] [place] [address] Clint Medina M.D. Director [facility] # [id number] 3 SEE RESULT BELOW Name: DAVID MESA : [address]: Matilde León MD Acct: [id number] Unit: [id number] AGE: 58 Location: [facility] Re05/06/18 SEX: F Status: REG REF SPEC: [id number] VIANNEY: 05/06/[address]: Matilde León MD REQ: [id number] RECD: 05/06/18 STATUS: COMP _ SOURCE: URINE SPDESC: ORDERED: Urine Culture COMMENTS: [id number] Urine Source: Random Procedure Result Reported Site Urine Culture Final 05/08/18- 928 ML No Growth (<1,000 CFU/mL) * ML - Main Lab . END OF REPORT DEPARTMENT OF PATHOLOGY, [address] [place] [address] Clint Medina M.D. Director [facility] # [id number] 4 SEE RESULT BELOW Name: DAVID MESA : [address]: Jeana Cruz DO Acct: [id number] Unit: [id number] AGE: 58 Location: ICU [id number] Re04/25/18 SEX: F Status: ADM IN SPEC: [id number] VIANNEY: 04/25/[address]: Bladimir Brown MD REQ: [id number] RECD: 04/25/18 STATUS: MICHAEL VALDIVIA DR: Matilde León MD _ [facility]: Urine Culture Procedure Result Reported Site Urine Culture Final 04/27/18- 832 ML Organism 1 ESCHERICHIA COLI Adams Count >100,000 (Many) CFU/ML 1. ESCHERICHIA COLI M.I.C. RX --------- ------ Ampicillin >=32 R Cefazolin >=64 R Cefepime <=1 S Ceftriaxone 16 I Ciprofloxacin >=4 R Gentamicin <=1 S Levofloxacin >=8 R Meropenem <=0.25 S Nitrofurantoin <=16 S Tetracycline >=16 R Pipercillin/Tazobactam >=128 R Trimethoprim/Sulfamethoxazole <=20 S Amoxicillin/Clavulanic Acid >=32 R Aztreonam 16 I Contact the Microbiology Department for any additional antibiotic reporting. * ML - Main Lab . END OF REPORT DEPARTMENT OF PATHOLOGY, [address] [place] [address] Clint Medina M.D. Director [facility] # [id number] 6 SEE RESULT BELOW Name: DAVID MESA : [address]: Matilde León MD Acct: [id number] Unit: [id number] AGE: 58 Location: [facility] Re03/30/18 SEX: F Status: REG REF SPEC: [id number] VIANNEY: 03/30/18-[address]: Matilde León MD REQ: [id number] RECD: 03/30/18 STATUS: COMP _ SOURCE: URINE SPDESC: ORDERED: Urine Culture COMMENTS: [id number] Urine Source: Random Procedure Result Reported Site Urine Culture Final 04/01/18- 0748 ML Organism 1 ESCHERICHIA COLI Adams Count >100,000 (Many) CFU/ML 1. ESCHERICHIA COLI M.I.C. RX --------- ------ Ampicillin >=32 R Cefazolin >=64 R Cefepime <=1 S Ceftriaxone 16 I Ciprofloxacin >=4 R Gentamicin <=1 S Levofloxacin >=8 R Meropenem <=0.25 S Nitrofurantoin <=16 S Tetracycline >=16 R Pipercillin/Tazobactam >=128 R Trimethoprim/Sulfamethoxazole <=20 S Amoxicillin/Clavulanic Acid >=32 R Aztreonam 16 I Contact the Microbiology Department for any additional antibiotic reporting. * ML - Main Lab . END OF REPORT DEPARTMENT OF PATHOLOGY, [address] [place] [address] Clint Medina M.D. Director [facility] # [id number] 7 Butcher Assistant: [id number] 8 SEE RESULT BELOW Name: DAVID MESA : [address]: Farrah Mckoy MD Acct: [id number] Unit: [id number] AGE: 57 Location: ED Re03/14/18 SEX: F Status: REG ER SPEC: [id number] VIANNEY: 03/14/18-[address] [facility] [address]: Farrah Mckoy MD REQ: [id number] RECD: 03/14/188 STATUS: MICHAEL VALDIVIA DR: Matilde León MD _ SOURCE: NASAL SPDESC: ORDERED: Flu A B Request Procedure Result Reported Site Rapid Influenza A B Request Final 03/14/18- 1500 ML Specimen received for Influenza A/B Molecular testing * ML - Main Lab . END OF REPORT DEPARTMENT OF PATHOLOGY, [address] [place] [address] Clint Medina M.D. Director [facility] # [id number] 9 >100 to <200 pg/mL: likely compensated congestive heart failure (CHF) 200 to 400 pg/mL: likely moderate CHF >400 pg/mL: likely moderate to severe CHF 10 SEE RESULT BELOW Name: DAVID MESA : [address]: Arleen Pacheco MD Acct: [id number] Unit: [id number] AGE: 57 Location: [place] [address]- Re03/15/18 SEX: F Status: ADM IN SPEC: [id number] VIANNEY: 03/14/[address] [facility] [address]: Farrah Mckoy MD REQ: [id number] RECD: 03/14/18 STATUS: MICHAEL VALDIVIA DR: Matilde León MD _ SOURCE: BLOOD,[facility]: ORDERED: Blood Cult Procedure Result Reported Site Aerobic Culture Bottle Final 03/19/181927 ML No Growth Day 5 Anaerobic Culture Bottle Final 03/19/181927 ML No Growth Day 5 * ML - Main Lab . END OF REPORT DEPARTMENT OF PATHOLOGY, [address] [place] [address] Clint Medina M.D. Director [facility] # [id number] 11 Acute inflammation: >10.00 12 Because ethnic data is not always readily available, this report includes an eGFR for both -Americans and non- Americans. The National Kidney Disease Education Program (NKDEP) does not endorse the use of the MDRD equation for patients that are not between the ages of 18 and 70, are , have extremes of body size, muscle mass, or nutritional status, or are non- or non-. According to the National Kidney Foundation, irrespective of diagnosis, the stage of the disease is based on the level of kidney function: Stage Description GFR(mL/min/1.73 m(2)) 1 Kidney damage with normal or decreased GFR 90 2 Kidney damage with mild decrease in GFR 60-89 3 Moderate decrease in GFR 30-59 4 Severe decrease in GFR 15-29 5 Kidney failure <15 (or dialysis) 13 [facility] Severe Sepsis and Septic Shock Management Bundle Measure requires all lactic acids initially measuring >2.0 mmol/L be repeated. 14 SEE RESULT BELOW Name: DAVID MESA : [address]: Arleen Pacheco MD Acct: [id number] Unit: [id number] AGE: 57 Location: [place] [address] Re03/15/18 SEX: F Status: ADM IN SPEC: [id number] VIANNEY: 03/14/[address]: Farrah Mckoy MD REQ: [id number] RECD: 03/14/18 STATUS: COMP SHEA DR: Matilde León MD _ SOURCE: SPUTUM SPDESC: ORDERED: Sputum Cult/GS Procedure Result Reported Site Sputum Smear Final 03/14/18- 1612 ML 4+ Neutrophils 3+ Epithelial Cells 4+ Gram Positive Cocci in Clusters, resembling Staph 2+ Gram Negative Bacilli 4+ Gram Negative Coccobacilli 4+ Gram Positive Bacilli Sputum Culture Final 03/16/18- 0820 ML Organism 1 NORMAL CHANDANA Quantity 3+ * ML - Main Lab . END OF REPORT DEPARTMENT OF PATHOLOGY, [address] [place] [address] Clint Medina M.D. Director [facility] # [id number] 15 SEE RESULT BELOW Name: DAVID MESA : [address]: Arleen Pacheco MD Acct: [id number] Unit: [id number] AGE: 57 Location: [place] [address] Re03/15/18 SEX: F Status: ADM IN SPEC: [id number] VIANNEY: 03/14/[address] [facility] [address]: Farrah Mckoy MD REQ: [id number] RECD: 03/14/18 STATUS: MICHAEL VALDIVIA DR: Matilde León MD _ SOURCE: URINE SPDESC: ORDERED: Urine Culture Procedure Result Reported Site Urine Culture Final 03/16/18- 826 ML Mixed chandana; possible contamination. Suggest resubmission. * ML - Main Lab . END OF REPORT DEPARTMENT OF PATHOLOGY, [address] [place] [address] Clint Medina M.D. Director [facility] # [id number] 16 >100 to <200 pg/mL: likely compensated congestive heart failure (CHF) 200 to 400 pg/mL: likely moderate CHF >400 pg/mL: likely moderate to severe CHF 17 Acute inflammation: >10.00 18 Because ethnic data is not always readily available, this report includes an eGFR for both -Americans and non- Americans. The National Kidney Disease Education Program (NKDEP) does not endorse the use of the MDRD equation for patients that are not between the ages of 18 and 70, are , have extremes of body size, muscle mass, or nutritional status, or are non- or non-. According to the National Kidney Foundation, irrespective of diagnosis, the stage of the disease is based on the level of kidney function: Stage Description GFR(mL/min/1.73 m(2)) 1 Kidney damage with normal or decreased GFR 90 2 Kidney damage with mild decrease in GFR 60-89 3 Moderate decrease in GFR 30-59 4 Severe decrease in GFR 15-29 5 Kidney failure <15 (or dialysis) 19 [facility] Severe Sepsis and Septic Shock Management Bundle Measure requires all lactic acids initially measuring >2.0 mmol/L be repeated. 20 SEE RESULT BELOW Name: DAVID MESA : [address]: Gurvinder Proctor MD Acct: [id number] Unit: [id number] AGE: 57 Location: MED [id number] Re01/14/18 SEX: F Status: ADM IN SPEC: [id number] VIANNEY: 01/14/[address] [facility] [address]: Moises Shaw MD REQ: [id number] RECD: 01/14/18 STATUS: MICHAEL VALDIVIA DR: Matilde León MD _ SOURCE: URINE SPDESC: ORDERED: Urine Culture Procedure Result Reported Site Urine Culture Final 01/16/18- 0852 ML Organism 1 ESCHERICHIA COLI Adams Count >100,000 (Many) CFU/ML 1. ESCHERICHIA COLI M.I.C. RX --------- ------ Ampicillin >=32 R Cefazolin >=64 R Cefepime <=1 S Ceftriaxone 16 I Ciprofloxacin >=4 R Gentamicin <=1 S Levofloxacin >=8 R Meropenem <=0.25 S Nitrofurantoin <=16 S Tetracycline 8 I Trimethoprim/Sulfamethoxazole <=20 S Amoxicillin/Clavulanic Acid >=32 R Aztreonam 16 I Contact the Microbiology Department for any additional antibiotic reporting. * ML - Main Lab . END OF REPORT DEPARTMENT OF PATHOLOGY, [address] [place] [address] Clint Medina M.D. Director [facility] # [id number] 21 SEE RESULT BELOW Name: DAVID MESA : [address]: Matilde León MD Acct: [id number] Unit: [id number] AGE: 57 Location: [facility] Re01/12/18 SEX: F Status: REG REF SPEC: [id number] VIANNEY: 01/12/[address]: Matilde León MD REQ: [id number] RECD: 01/12/18 STATUS: COMP _ SOURCE: URINE SPDESC: ORDERED: Urine Culture Urine Source: Clean Catch Procedure Result Reported Site Urine Culture Final 01/14/18- 813 ML Organism 1 ESCHERICHIA COLI Adams Count >100,000 (Many) CFU/ML 1. ESCHERICHIA COLI M.I.C. RX --------- ------ Ampicillin >=32 R Cefazolin >=64 R Cefepime <=1 S Ceftriaxone 16 I Ciprofloxacin >=4 R Gentamicin <=1 S Levofloxacin >=8 R Meropenem <=0.25 S Nitrofurantoin <=16 S Tetracycline 8 I Pipercillin/Tazobactam >=128 R Trimethoprim/Sulfamethoxazole <=20 S Amoxicillin/Clavulanic Acid >=32 R Aztreonam 16 I Contact the Microbiology Department for any additional antibiotic reporting. * ML - Main Lab . END OF REPORT DEPARTMENT OF PATHOLOGY, [address] [place] [address] Clint Medina M.D. Director [facility] # [id number] Procedures Description No Information Available Encounters Type Date Location Provider Dx Diagnosis Office Visit 05/12/2018 [facility] Valencia Jones E10.21 Type 1 diabetes 4:00p Twyla & VIKRAM Carrington mellitus with Endocrinology diabetic nephropathy Office Visit 04/12/2018 [facility] Valencia Jones E10.21 Type 1 diabetes 1:30p Twyla & VIKRAM Carrington mellitus with Endocrinology diabetic nephropathy I10 Essential (primary) hypertension Office Visit 11/23/2017 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 Diabetes & Sriyswmbcbgvt92/07/2018 - Valencia Carrington NPE10.21 Type 1 diabetes mellitus with diabetic nephropathyNew Labs:TSH, Ordered: T4-Free, Ordered: 06/17/18Comments:-Her diabetic control has improved item please with her A1c today and her fingersticks. We are awaiting authorization for the free[employer] Mediayle continuous glucose monitor for her. She is testing her blood sugar 4 to 5 times a day and bolusing frequently. I will keep her insulin pump settings the same for right now.- I reviewed what Type 1 diabetes is, the complications associated with poorly controlled diabetes, and reviewed what the patient needs to be working on to better control their disease- I explained that good diabetic control lowers the risk on development of new vascular complications and lowers the risk of old vascular disease from worsening- I reviewed a diabetic diet, stressing controllingportion sizes to avoid weight gain, and better controlling the portions of simple sugars and carbohydrates to avoid high spikes in the sugar readings- I discussed avoid and treating hypoglycemia. I asked to be called if recurrent hyperglycemia and hypoglycemia becomes a problem- I encouraged regular follow-up with the eye doctors for routine diabetic eye screening- I reviewed the need for daily self-foot exams, watching for the development of new blisters, ulcers, and lesions on the feetI10 Essential (primary) pljhzkhmcwysY02.2 Nontoxic multinodular goiterNew Xrays:Ultrasound, Head And Neck; Soft Tissues, Ordered: 06/17/18Comments:-She had an ultrasound done she believes last 4-5 years ago and did have a biopsy done quite a whileago on her thyroid nodule. I will ask her to get labs done at her convenience in her port. But I will also schedule been ultrasound of her thyroid at this time she is not having any anterior compressive throat symptoms
--- NOTE | 2018-07-04 17:13 | RAD ---
INDICATION: Congestive heart failure. Difficulty breathing. Previous coronary artery bypass. COMPARISON: May 09, 2018 TECHNIQUE: Dual energy PA and routine lateral views of the chest were obtained. REPORT: Cardiomegaly, prominent ill-defined central pulmonary vasculature with mild perihilar opacities and diffuse prominence of interstitial markings as well as small bilateral dependent pleural effusions with proportional basilar atelectasis. Negative for pneumothorax. Tip of RIGHT chest port at level of superior vena cava RIGHT atrial junction. No significant change in RIGHT atrial or RIGHT ventricular level pacemaker leads. Median sternotomy wires and mediastinal vascular clips. Cervical and lumbar spine fusion hardware noted. IMPRESSION: #. Alveolar and interstitial pulmonary edema with associated small dependent pleural effusions new compared with the prior exam.
--- NOTE | 2018-07-04 17:21 | ED ---
Shortness of Breath - HPI Summary HPI Summary: This pt is a 58 y/o female presenting to [facility] referred by Dr. Johnson c/o SOB progressively worsening over the past 1 week. Pt reports she has gained about 10 lbs over the past 1 week. She states her SOB is aggravated with lying down and with ambulation. She also notes right lower extremity edema, abd swelling, and chest pain. Pt reports 2 episodes of diarrhea today. Denies fever, chills, abd pain, constipation. Pt is not on hemodialysis. Her medications include Bumex BID and metolazone. PMHx includes CHF, CABG, PVD, pacemaker/ICD, COPD, PE. - History of Current Complaint Chief Complaint: EDShortnessOfBreath Time Seen by Provider: 07/04/18 16:54 Hx Obtained From: Patient Onset/Duration: Lasting Days - for about 1 week, Still Present Timing: Constant Current Severity: Moderate Dyspnea At: Rest Aggrevating Factors: Nothing Alleviating Factors: Nothing Associated Signs & Symptoms: Chest Pain Unrelated to Cough, Edema - in abd and RLE - Allergy/Home Medications Allergies/Adverse Reactions: Allergies Allergy/AdvReac Type Severity Reaction Status Date / Time bee venom protein (honey bee) Allergy Anaphylatic Verified 07/04/18 15:42 Shock Cephalosporins Allergy Shortness Verified 07/04/18 15:42 of Breath codeine Allergy GI Upset Verified 07/04/18 15:42 diphenhydramine Allergy Difficulty Verified 07/04/18 15:42 [From Benadryl] Breathing Penicillins Allergy Hives Verified 07/04/18 15:42 Sulfa (Sulfonamide Allergy Hives Verified 07/04/18 15:42 Antibiotics) Home Medications: Home Medications Aspirin EC TAB* [Ecotrin EC Low Dose 81 MG*] 81 mg PO DAILY 07/04/18 [History Confirmed 07/04/18] Atorvastatin* [Lipitor*] 20 mg PO BEDTIME 07/04/18 [History Confirmed 07/04/18] Carvedilol TAB* [Coreg TAB*] 3.125 mg PO BID 07/04/18 [History Confirmed ] Chlorhexidine/Glycerin/He-Cell [Lubricating Jelly] 1 gel TOPICAL QID 07/04/18 [ History Confirmed 07/04/18] EPINEPHrine [Epipen 2-Abdi] 0.3 mg IM ONCE PRN 07/04/18 [History Confirmed ] Glucagon,Human Recombinant [Glucagon Emergency Kit] 1 mg INJ ONCE PRN 07/04/18 [ History Confirmed 07/04/18] Loperamide HCl [Imodium A-D] 4 mg PO DAILY PRN 07/04/18 [History Confirmed 07/04] Nitroglycerin TAB 0.4 MG* 0.4 mg SL Q5M PRN 07/04/18 [History Confirmed 07/04/18 ] Oxybutynin XL TAB* [Ditropan XL TAB*] 5 mg PO DAILY 07/04/18 [History Confirmed 07/04/18] Potassium Chlor TAB* [Klor Con ER TAB*] 20 meq PO DAILY 07/04/18 [History Confirmed 07/04/18] hydrALAZINE TAB* [Apresoline TAB*] 10 mg PO QID 07/04/18 [History Confirmed ] PMH/Surg Hx/FS Hx/Imm Hx Endocrine/Hematology History: Reports: Hx Anticoagulant Therapy, Hx Blood Transfusions, Hx Diabetes, Hx Thyroid Disease - Goiter, Hx Anemia, Other Endocrine/Hematological Disorders - anemia Denies: Hx Systemic Lupus Erythematosus Cardiovascular History: Reports: Hx Angioplasty, Hx Auto Implanted Cardiovert Defib, Hx Cardiac Arrest, Hx Congestive Heart Failure, Hx Coronary Artery Disease, Hx Hypercholesterolemia, Hx Hypertension, Hx Myocardial Infarction, Hx Pacemaker/ICD, Hx Peripheral Vascular Disease, Hx Valvular Heart Disease, Other Cardiovascular Problems/Disorders - triple bypass in deport, hyperlipidemia, ICD, carotid endarterectomy Denies: Hx Angina Respiratory History: Reports: Hx Asthma, Hx Chronic Bronchitis, Hx Chronic Obstructive Pulmonary Disease (COPD), Hx Pneumonia, Hx Pulmonary Edema, Hx Pulmonary Embolism, Hx Seasonal Allergies, Hx Sleep Apnea, Other Respiratory Problems/Disorders - respiratory failure, uses home oxygen GI History: Reports: Hx Gall Bladder Disease Denies: Hx Ulcer, Other GI Disorders History: Reports: Hx Chronic Renal Failure, Other Problems/Disorders - recent UTI Denies: Hx Dialysis, Hx Renal Disease Musculoskeletal History: Reports: Hx Arthritis, Hx Back Problems, Hx Fibromyalgia, Hx Scoliosis, Other Musculoskeletal History - left below knee amputation, restless leg syndrome, osteomyelitis Denies: Hx Rheumatoid Arthritis, Hx Osteoporosis Sensory History: Reports: Hx Cataracts - no surgery needed yet, Hx Contacts or Glasses, Hx Vision Problem, Hx Hearing Problem - R ear numbness and decreased hearing r/t TIA per pt Denies: Hx Deafness, Hx Hearing Aid Opthamlomology History: Reports: Hx Cataracts - no surgery needed yet, Hx Contacts or Glasses, Hx Vision Problem Neurological History: Reports: Hx Migraine, Hx Nerve Disease - Diabetic Peripheral Neuropathy, Hx Seizures - reports last one 30 yrs ago, Hx Transient Ischemic Attacks (TIA), Other Neuro Impairments/Disorders - peripheral neuropathy Denies: Hx Dementia Psychiatric History: Reports: Hx Anxiety, Hx Depression Denies: Hx Panic Disorder - Cancer History Hx Chemotherapy: No - Surgical History Surgery Procedure, Year, and Place: CARDIAC STENTS(4 PROMUS AND 1 VISIPRO PLACED AT [facility]-1.5T ONLY DUE TO CONDITIONAL STATUS OF MAX YOUNGT. GRAD. 720), TRIPLE BYPASS, BILATERAL CAROTID ENDARTERECTOMY ,LAP ADDY,HYSTERECTOMY,LEFT GREAT TOE AMPUTATION,APPY, T&A ,STERNAL WIRES ,LUMBAR SPINE FUSION,CSP FUSION , C SECTION,BACK SURGERY-LASER SURGERY. defib,port, left below knee amputation jul 2017 Hx Anesthesia Reactions: No - Immunization History Date of Tetanus Vaccine: 2015 Date of Influenza Vaccine: 2016 Infectious Disease History: No Infectious Disease History: Reports: Hx Clostridium Difficile, Hx of Known/ Suspected MRSA Denies: Hx Hepatitis, Hx Human Immunodeficiency Virus (HIV), Hx Shingles, Hx Tuberculosis, Hx Known/Suspected VRE, Hx Known/Suspected VRSA, History Other Infectious Disease, Traveled Outside the [place] in Last 30 Days - Family History Known Family History: Positive: Unknown - Pt is adopted and does not know her FHx - Social History Alcohol Use: None Hx Substance Use: No Substance Use Type: Reports: None Hx Tobacco Use: Yes Smoking Status (MU): Light Every Day Tobacco Smoker Type: Cigarettes Amount Used/How Often: patient reports smoking 3 cigarettes per day Length of Time of Smoking/Using Tobacco: 30 years Have You Smoked in the Last Year: Yes Review of Systems Constitutional: Other - weight gain Negative: Fever, Chills Positive: Chest Pain Positive: Shortness Of Breath Gastrointestinal: Other - abd swelling Positive: Diarrhea. Negative: Abdominal Pain, Other - constipation Positive: Edema - in right leg All Other Systems Reviewed And Are Negative: Yes Physical Exam - Summary Physical Exam Summary: VITAL SIGNS: Reviewed. GENERAL: Patient is an ill looking female who is on oxygen via nasal cannula. Pt feels comfortable at this time. HEAD AND FACE: No signs of trauma. No ecchymosis, hematomas or skull depressions. No sinus tenderness. EYES: PERRLA, EOMI x 2, No injected conjunctiva, no nystagmus. EARS: Hearing grossly intact. Ear canals and tympanic membranes are within normal limits. MOUTH: Oropharynx within normal limits. NECK: Supple, trachea is midline, no adenopathy, no JVD, no carotid bruit, no c- spine tenderness, neck with full ROM. CHEST: Symmetric, no tenderness at palpation LUNGS: Pt has bilateral crackles in both lungs. CVS: Regular rate and rhythm, S1 and S2 present, no murmurs or gallops appreciated. ABDOMEN: Soft, non-tender. Edema in the abdomen. No rebound, no guarding, and no masses palpated. Bowel sounds are normal. EXTREMITIES: Left lower extremity amputation below the knee. Right lower extremity with 2+ edema. NEURO: Alert and oriented x 3. No acute neurological deficits. Speech is normal and follows commands. SKIN: Dry and warm Triage Information Reviewed: Yes Vital Signs On Initial Exam: Initial Vitals Temp Pulse Resp BP Pulse Ox 98 F 94 16 172/82 99 07/04/18 15:38 07/04/18 15:38 07/04/18 15:38 07/04/18 15:38 07/04/18 15:38 Vital Signs Reviewed: Yes Diagnostics - Vital Signs Vital Signs Temp Pulse Resp BP Pulse Ox 07/04/18 17:14 100 07/04/18 17:00 93 26 97 07/04/18 16:58 93 18 94 07/04/18 16:56 93 183/108 98 07/04/18 15:38 98 F 94 16 172/82 99 - Laboratory Result Diagrams: 07/05/18 05:52 07/06/18 05:45 Lab Statement: Any lab studies that have been ordered have been reviewed, and results considered in the medical decision making process. - Radiology Chest XR Xray Interpretation: Positive (See Comments) - IMPRESSION: Alveolar and interstitial pulmonary edema with associated small dependent pleural effusions new compared with the prior exam. Dr. Shaw has reviewed this report. Radiology Interpretation Completed By: Radiologist - EKG 15:41 Cardiac Rate: NL - at 91 bpm EKG Interpretation: Ventricular paced rhyhtm at 91 bpm. Re-Evaluation - Re-Evaluation First Eval Re-Evaluation Time: 18:25 Comment: I discussed the admission plan with pt. She understands and agrees. Course/Dx - Course Assessment/Plan: This pt is a 58 y/o female presenting to [facility] referred by Dr. Johnson c/o SOB progressively worsening over the past 1 week. Pt reports she has gained about 10 lbs over the past 1 week. She states her SOB is aggravated with lying down and with ambulation. She also notes right lower extremity edema, abd swelling, and chest pain. Pt reports 2 episodes of diarrhea today. Denies fever , chills, abd pain, constipation. Pt is not on hemodialysis. Her medications include Bumex BID and metolazone. Test results shows a wbc's of 20.4, hemoglobin 9, hematocrit 29, platelets at 383, BUN 33, creatinine 1.33, glucose 156, calcium 8.5, albumin 2.8 and total protein 5.6, BNP 797. Chest x-ray impression: Alveolar and interstitial pulmonary edema with associated small dependent pleural effusions new compared with the prior exam. In the ED course the patient was given Bumex, and she was given labetalol for the hypertension. She also was given Reglan and Benadryl for the headache. At this point I discussed my physical exam findings and test results with Dr. Russ from the hospitalist services who accepted the patient for admission. - Diagnoses Provider Diagnoses: CHF exacerbation, Chest pain, Renal failure, Hypertensive urgency - Physician Notifications Discussed Care of Patient With: Mio Russ - Hospitalist Time Discussed With Above Provider: 18:18 Instructed by Provider To: Admit As Inpatient - Critical Care Time Critical Care Time: 75-104 min Discharge - Sign-Out/Discharge Documenting (check all that apply): Patient Departure - Admit to [facility] - Discharge Plan Condition: Stable Disposition: ADMITTED TO [facility] - Billing Disposition and Condition Condition: STABLE Disposition: Admitted to [facility] - Attestation Statements Document Initiated by Scribe: Yes Documenting Scribe: Siria Monaco Provider For Whom Scribe is Documenting (Include Credential): Moises Shaw MD Scribe Attestation: Siria Wallace, scribed for Moises Shaw MD on 07/06/18 at 0906. Scribe Documentation Reviewed: Yes Provider Attestation: The documentation as recorded by the scribe, Siria Monaco accurately reflects the service I personally performed and the decisions made by me, Moises Shaw MD
[2018-07-04 17:41] LABS: INR 0.96 (0.77-1.02)
[2018-07-04 17:50] LABS: EGFR Non-African American 40.4 (>60)
[2018-07-04 17:59] LABS: ABS Basophils 0.1 10^3/ul (0-0.2); ABS Eosinophils 0.1 10^3/ul (0-0.6); ABS Lymphocytes 1.2 10^3/ul (1.0-4.8); ABS Monocytes 0.6 10^3/ul (0-0.8); ABS Neutrophils 10.4 10^3/ul (1.5-7.7); ABS Nucleated RBC 0 10^3/ul; Hematocrit 29 % (35-47); Lymphocyte % 9.4 % (25-47); Mean Corpuscular HGB Conc 31 g/dl (31-36); Mean Corpuscular Hemoglobin 26 pg (27-31); Mean Corpuscular Volume 85 fL (80-97); Mean Platelet Volume 8.9 um3 (7.4-10.4); Nucleated Red Blood Cells % 0.1; Platelet Count 383 10^3/ul (150-450); Red Blood Count 3.41 10^6/ul (4.00-5.40); Red Cell Distribution Width 23 % (10.5-15); White Blood Count 12.4 10^3/ul (3.5-10.8)
[2018-07-04] MEDS ORDERED: diPHENhydraMINE IV* 50 MG/ML 1 ml VIAL (BENADRYL) IV ONE (18:05)
[2018-07-04] MEDS ORDERED: Metoclopramide IV* 5 MG/ML 2 ML VIAL IV ONE (18:05)
[2018-07-04] MEDS ORDERED: Bumetanide IV* 0.25 MG/ML 4 ML VIAL SLOW PUSH ONE (18:12)
[2018-07-04] MEDS: Labetalol IV* 5 MG/ML 20 ML VIAL IV PUSH ONE ×2 (18:19→19:14)
[2018-07-04] MEDS ORDERED: Albuterol/Ipratropium NEB.SOL* Albuterol 2.5 MG/Ipratropium 0.5 MG 3 ML INH PRN (19:49)
[2018-07-04] MEDS ORDERED: Acetaminophen TAB* 325 MG PO PRN (19:49)
[2018-07-04] MEDS ORDERED: Furosemide IV* 10 MG/ML VIAL (40 MG) IV SLOW PU ONE (19:58)
[2018-07-04] MEDS ORDERED: Dextrose 50% Syringe 50 ML* 25 GM/50 ML SYRINGE IV PUSH PRN (20:37)
[2018-07-04] MEDS ORDERED: Gabapentin TAB(NF) 600 MG PO SCH (21:00)
[2018-07-04] MEDS: oxyCODONE/Acetamin 5/325 MG* TAB PO PRN (21:49)
[2018-07-04] MEDS: Carvedilol TAB* 3.125 MG PO SCH (21:50)
[2018-07-04] MEDS: Gabapentin CAP(*) 300 MG PO SCH (21:50)
[2018-07-04] MEDS: Pramipexole TAB* 0.5 MG PO SCH (21:50)
[2018-07-04] MEDS: Atorvastatin* 20 MG TAB PO SCH (21:50)
[2018-07-04] MEDS: hydrALAZINE TAB* 10 MG PO SCH (21:50)
[2018-07-04] MEDS: Heparin VIAL(*) 5000 UNITS/ML VIAL (FIVE THOUSAND) SUBCUT SCH (21:54)
[2018-07-04 22:26] LABS: Urine Color Straw
[2018-07-04 22:27] LABS: Urine Appearance Cloudy; Urine Blood Negative (Negative); Urine Ketones Negative (Negative); Urine Protein 3+(>=500 mg/dL) (Negative); Urine Specific Gravity 1.015 (1.010-1.030); Urine Urobilinogen Negative (Negative)
[2018-07-04 22:39] LABS: Urine Red Blood Cell 2+(6-10/hpf) (Absent); Urine White Blood Cell 3+(>20/hpf) (Absent)
--- NOTE | 2018-07-04 23:24 | HP ---
CC: Dr. Rolando Johnson; Dr. Matilde León * HISTORY AND PHYSICAL: DATE OF ADMISSION: 07/04/18 PRIMARY CARE PROVIDER: Matilde León M.D. PRIMARY BLENDER/BRAZE APPLICATOR: Rolando Johnson MD ATTENDING PHYSICIAN: Curtis Epperson MD * (dictated by Tressa Arnold NP) CHIEF COMPLAINT: Shortness of breath, lower extremity edema, 10-pound weight gain in a week, and chest discomfort. HISTORY OF PRESENT ILLNESS: Ms. Galarza is a 58-year-old female with past medical history significant for diabetes mellitus, chronic kidney disease secondary to diabetes, recurrent urinary tract infections, left subclavian stenosis, osteomyelitis, status post left BKA, restless leg syndrome, neuropathy secondary to diabetes mellitus, COPD, chronic systolic heart failure who states that for over the last week she has been following with Dr. Johnson to control her heart failure at home. She states that he has increased her Bumex from 2 mg twice daily to 4 mg twice daily over the week. She reports gaining approximately 10 pounds over the last week. She denies any fevers, chills, cough, nausea, vomiting. She reports a dull chest pressure for approximately 1 week. This is located in the middle of her chest near her sternum. Nothing makes the pain better or makes it worse. She reports increased shortness of breath for 1 week. She also reports diarrhea a few days ago. She uses oxygen at 2.5 L via nasal cannula at bedtime. She also reports bilateral lower extremity edema. She also reports decreased urinary output. She denies any flank pain, urinary symptoms such as urgency, dysuria, or frequency. The patient presented to the emergency room for further evaluation. While in the emergency room, she had a chest x-ray showing alveolar and interstitial pulmonary edema with associated small dependent pleural effusion, new compared with her prior. Additionally, she had an EKG showing AV paced. She had labs showing anemia, but this is near her baseline. She has elevated renal function, also appears to be near her baseline. While in the emergency room, she received 2 mg of IV Bumex. She was noted to be hypertensive. She received IV labetalol. The hospitalists were asked to evaluate the patient for admission. PAST MEDICAL HISTORY: 1. Restless leg syndrome. 2. Diabetic polyneuropathy. 3. Chronic systolic congestive heart failure. 4. Spinal stenosis. 5. Coronary artery disease. 6. Chronic kidney disease, stage 3, secondary to diabetes mellitus. 7. Diabetes mellitus. 8. Carotid artery occlusion status post stenting. 9. Hyperlipidemia. 10. Hypertension. 11. Gastroparesis secondary to diabetes mellitus. 12. COPD. 13. Left lower extremity osteomyelitis. 14. Peripheral vascular disease. 15. CVA. 16. Left subclavian stenosis. PAST SURGICAL HISTORY: 1. Status post bilateral carotid endarterectomy. 2. Status post left [id number] amputation. 3. Status post multiple I and D's of the wound at the left amputation site. 4. Status post laminectomy. 5. Status post tonsillectomy. 6. Status post cholecystectomy. 7. Status post hysterectomy. 8. Status post appendectomy. 9. Status post coronary artery bypass graft. MEDICATIONS: Home medications include: 1. Ditropan 5 mg oral daily. 2. Acetaminophen 650 mg oral every 4 hours as needed for pain. 3. Percocet 5/325 one tablet oral every 4 hours as needed for pain. 4. Carvedilol 3.125 mg oral twice daily. 5. Atorvastatin 20 mg oral daily at bedtime. 6. Zofran 4 mg oral every 6 hours as needed for nausea. 7. Dulera MDI 100/5 two puffs inhalation twice daily. 8. Bumex 2 mg oral twice daily. 9. Allopurinol 100 mg oral daily. 10. DuoNeb nebulizer 1 neb inhalation every 4 hours as needed for shortness of breath or wheeze. 11. Metolazone 5 mg oral every morning. 12. Lispro sliding scale subcutaneous with meals. 13. Heparin flush 5 mL to her port daily. 14. Hydralazine 10 mg oral 4 times daily. 15. EpiPen 0.3 mg intramuscularly once as needed for allergic reaction. 16. Glucagon 1 mg inject once as needed for hypoglycemia. 17. Mirapex 0.5 mg oral daily at bedtime. 18. Neurontin 1800 mg to 2400 mg oral daily at bedtime. 19. Aspirin 81 mg oral daily. 20. Nitroglycerin 0.4 mg sublingual every 5 minutes as needed for chest pain. 21. Spiriva 1 capsule inhalation daily. 22. Imodium AD 4 mg oral daily as needed for diarrhea. 23. Lubricating jelly topical 4 times daily. 24. Potassium chloride 20 mEq oral daily. ALLERGIES: BEE, CEPHALOSPORIN, CODEINE, BENADRYL, PENICILLIN, SULFA. FAMILY HISTORY: The patient is unaware of her family history as she was adopted. SOCIAL HISTORY: She is a former smoker. She denies alcohol or recreational drug use. Her , Genaro Galarza, will be her surrogate decision maker in the event she is unable to make decisions for herself. REVIEW OF SYSTEMS: I performed an 11-point review of systems. All the pertinent positives and negatives are mentioned in the history of present illness. The remaining review of systems is negative. PHYSICAL EXAMINATION GENERAL APPEARANCE: The patient appears to be in no acute distress. She is alert, awake. VITAL SIGNS: Temperature 98, heart rate 85, respiratory rate 30, O2 sat 98% on 2.5 L via nasal cannula, blood pressure 165/105. HEENT: Normocephalic, atraumatic. Pupils are equal and reactive to light. Extraocular movements are intact. RESPIRATORY: There is no accessory muscle use. Her lungs are clear to auscultation in the upper lobes with bilateral basilar crackles. CARDIOVASCULAR: Regular rate and rhythm. S1, S2 present. She has mild jugular vein distention and trace to 1+ bilateral lower extremity edema, the edema is located in her left thigh. She has BKA. ABDOMEN: Soft, nontender, nondistended. Bowel sounds present x4. EXTREMITIES: The patient has trace to 1+ bilateral lower extremity edema. DP and PT pulses are 1+ on the right. She has positive popliteal pulse on the left. MUSCULOSKELETAL: There is no clubbing or cyanosis noted. The patient exhibits good strength in all extremities. NEUROLOGICAL: The patient is alert and oriented x4. Cranial nerves II through XII are grossly intact. PSYCHOLOGICAL: She is calm and cooperative. SKIN: There are no rashes or abnormalities seen. DIAGNOSTIC STUDIES/LABORATORY DATA: Sodium 138, potassium 4.5, chloride 109, CO2 26, BUN 33, creatinine 1.35, glucose 156. White blood cell count 12.4, hemoglobin 9.0, hematocrit 29, and platelet count 383. EKG shows AV paced rhythm with rate of 91, this is similar to previous EKG from 04/28/18. Chest x-ray from today. Radiologist's impression: Alveolar and interstitial pulmonary edema with associated small dependent pleural effusions new compared with prior. IMPRESSION: Ms. Galarza is a 58-year-old female with past medical history significant for coronary artery disease, cerebrovascular accident, chronic systolic congestive heart failure, diabetic polyneuropathy, chronic kidney disease stage 3, gastroparesis, carotid artery occlusion, left subclavian stenosis, and chronic systolic heart failure who presented to the emergency room with complaints of shortness of breath. She will be admitted as an inpatient for acute on chronic systolic heart failure exacerbation. ASSESSMENT/PLAN: 1. Acute on chronic systolic congestive heart failure exacerbation. The patient has failed outpatient treatment. She received 2 mg IV Bumex in the emergency room. She states she has not urinated since 2 p.m. I am going to give her 60 mg of IV Lasix and do daily weights, strict I's and O's. We will insert a urinary catheter for strict I's and O's and better monitoring of her urination. I am going to hold her home metolazone and Bumex and await for cardiology's assistance and further diuresis in the morning. I have asked cardiology consult to see the patient tomorrow. We will continue her on home carvedilol. 2. Hypertension. The patient received labetalol in the emergency room, her blood pressure is improving, we will continue her home carvedilol and hydralazine. 3. Chest pain. The patient reports a dull chest pressure located across her chest near her sternum. She will be monitored on telemetry. We will trend her troponins. We are unable to fully interpret her EKG since she is dual paced at this time. I suspect her chest pain is secondary to her heart failure exacerbation. She will be continued on her home aspirin. 4. Leukocytosis. The patient's white blood cell count is 12.4. She has no respiratory complaints or urinary symptoms. We will get UA when we insert her catheter to rule out a urinary tract infection. For now, I am going to hold on any antibiotics. She is currently afebrile. If her UA looks positive, we will get a set of blood cultures and consider starting antibiotics. 5. Anemia. The patient has chronic anemia. She appears to be her baseline. 6. Diabetes mellitus. She has an insulin pump. She will be continued on her insulin pump per her home regimen for lispro. We will do glucose checks a.c. and h.s. The patient's last hemoglobin A1c was 10.1 in April 2018 that is improved from September 2017, which was16.4. 7. Diabetic polyneuropathy. The patient will be continued on her home Neurontin, we will hold for sedation. 8. Peripheral vascular disease. She will be continued on aspirin. 9. History of cerebrovascular accident. She will be continued on aspirin and a statin. 10. Hyperlipidemia. She will be continued on atorvastatin. 11. Restless legs syndrome. She will be continued on Mirapex. 12. Chronic obstructive pulmonary disease. There are no signs of an acute chronic obstructive pulmonary disease exacerbation at this time. She will be continued on her home inhalers. 13. Left subclavian stenosis. She will continue to follow with her primary care provider and vascular team. 14. Left [id number] amputation. History noted. 15. Fluids, electrolytes, and nutrition. She will be on a consistent carbohydrate, low sodium diet. 16. Code status. Full code. 17. Deep vein thrombosis prophylaxis. She is a high risk. Will be on subcu heparin. 18. Disposition. Inpatient. TIME SPENT: Time for this admission was approximately 60 minutes, greater than half of that was spent [id number] with the patient discussing medications, past medical history, and events leading up to her arrival today and performing a physical examination. The case was reviewed with the attending, Dr. Epperson, who agrees with the plan of care. Reviewed by GAURAV HERNANDEZ-Cecilia 07/06/18 1624 [id number]/[facility] #: [id number] ABNER
[2018-07-04] MEDS ORDERED: Baclofen TAB* 10 MG PO ONE (23:39)
[2018-07-05] MEDS ORDERED: Insulin NOVOLOG* FOR INSULIN PUMP SUBCUT SCH (01:00)
[2018-07-05] MEDS: Mometasone/Formoter 100/5 MDI INH SCH ×3 (04:20→19:28)
[2018-07-05] MEDS: oxyCODONE/Acetamin 5/325 MG* TAB PO PRN ×2 (05:29→19:37)
[2018-07-05] MEDS: Heparin VIAL(*) 5000 UNITS/ML VIAL (FIVE THOUSAND) SUBCUT SCH ×3 (05:31→21:10)
[2018-07-05 06:14] LABS: ABS Basophils 0.1 10^3/ul (0-0.2); ABS Eosinophils 0.2 10^3/ul (0-0.6); ABS Lymphocytes 1.7 10^3/ul (1.0-4.8); ABS Monocytes 0.7 10^3/ul (0-0.8); ABS Neutrophils 6.6 10^3/ul (1.5-7.7); ABS Nucleated RBC 0 10^3/ul; Eosinophil % 1.9 % (0-6); Hematocrit 27 % (35-47); Hemoglobin 8.7 g/dl (12.0-16.0); Lymphocyte % 18.1 % (25-47); Mean Corpuscular HGB Conc 32 g/dl (31-36); Mean Corpuscular Hemoglobin 27 pg (27-31); Mean Corpuscular Volume 84 fL (80-97); Mean Platelet Volume 8.9 um3 (7.4-10.4); Nucleated Red Blood Cells % 0; Platelet Count 391 10^3/ul (150-450); Red Blood Count 3.22 10^6/ul (4.00-5.40); Red Cell Distribution Width 23 % (10.5-15); White Blood Count 9.3 10^3/ul (3.5-10.8)
[2018-07-05] MEDS: Tiotropium CAP.INH* CAP.INH/18 MCG (USE ORDER SET !) INH SCH (07:50)
[2018-07-05] MEDS: Carvedilol TAB* 3.125 MG PO SCH ×2 (08:03→19:35)
[2018-07-05] MEDS: Allopurinol TAB* 100 MG PO SCH (08:04)
[2018-07-05] MEDS: Potassium Chlor TAB* 20 MEQ TAB.ER PO SCH (08:04)
[2018-07-05] MEDS: hydrALAZINE TAB* 10 MG PO SCH ×4 (08:04→19:37)
[2018-07-05] MEDS: Oxybutynin XL TAB* 5 MG PO SCH (08:05)
[2018-07-05] MEDS: Aspirin EC TAB* 81 MG TAB.EC PO SCH (08:05)
[2018-07-05] MEDS: Furosemide IV* 10 MG/ML 2 ML VIAL (20 MG) IV SLOW PU SCH ×2 (08:56→16:24)
[2018-07-05] MEDS ORDERED: Spiriva Inhaler DEVICE* 1 EACH DEVICE INH ONE (09:00)
[2018-07-05] MEDS ORDERED: Insulin LISPRO* 1 UNITS UNIT SUBCUT SCH (09:00)
--- NOTE | 2018-07-05 09:02 | PN ---
Subjective Date of Service: 07/05/18 Interval History: Breathing feels better. Swelling in left leg feel improved. Chest pain resolved. Slept slightly more reclined but never sleeps flat Notes cramps in legs after starting diuresis I/O = - 650 Objective Active Medications: Acetaminophen (Tylenol Tab*) 650 mg PO Q4H PRN PRN Reason: FEVER/PAIN Albuterol/Ipratropium (Duoneb (Albuterol 2.5 Mg/Ipratropium 0.5 Mg)) 1 neb INH Q4H PRN PRN Reason: WHEEZING Allopurinol (Zyloprim Tab*) 100 mg PO DAILY [facility] Last Admin: 07/05/18 08:04 Dose: 100 mg Aspirin (Aspirin Ec Tab*) 81 mg PO DAILY [facility] Last Admin: 07/05/18 08:05 Dose: 81 mg Atorvastatin Calcium (Lipitor*) 20 mg PO BEDTIME [facility] Last Admin: 07/04/18 21:50 Dose: 20 mg Carvedilol (Coreg Tab*) 3.125 mg PO BID [facility] Last Admin: 07/05/18 08:03 Dose: 3.125 mg Device (Tiotropium Inhaler Device*) 1 each INH 0900 ONE Stop: 07/05/18 09:01 Last Admin: 07/05/18 07:51 Dose: 1 each Dextrose (D50w Syringe 50 Ml*) 12.5 gm IV PUSH .FOR FS < 60 - SS PRN PRN Reason: FS < 60 Furosemide (Lasix Iv*) 60 mg IV SLOW PU 0800,1700 [facility] Last Admin: 07/05/18 08:56 Dose: 60 mg Gabapentin (Neurontin Cap(*)) 1,800 mg PO BEDTIME [facility] Last Admin: 07/04/18 21:50 Dose: 1,800 mg Heparin Sodium (Porcine) (Heparin Flush Port (Ivad)) 5 ml FLUSH DAILY [facility]; Protocol Last Admin: 07/05/18 08:05 Dose: 5 ml Heparin Sodium (Porcine) (Heparin Vial(*)) 5,000 units SUBCUT Q8HR [facility] Last Admin: 07/05/18 05:31 Dose: 5,000 units Hydralazine HCl (Apresoline Tab*) 10 mg PO QID [facility] Last Admin: 07/05/18 08:04 Dose: 10 mg Insulin Human Lispro (Humalog*) 0 units SUBCUT .SEE PROTOCOL [place]; Protocol Mometasone Furoate/Formoterol Fumar (Dulera 100/5 Mdi*) 2 puff INH BID [facility] Last Admin: 07/05/18 07:55 Dose: Not Given Ondansetron HCl (Zofran Tab*) 4 mg PO Q6H PRN PRN Reason: NAUSEA Oxybutynin Chloride (Ditropan Xl Tab*) 5 mg PO DAILY [facility] Last Admin: 07/05/18 08:05 Dose: 5 mg Oxycodone/Acetaminophen (Percocet 5/325 Tab*) 1 tab PO Q4H PRN PRN Reason: PAIN Last Admin: 07/05/18 05:29 Dose: 1 tab Potassium Chloride (Klor Con Er Tab*) 20 meq PO DAILY [facility] Last Admin: 07/05/18 08:04 Dose: 20 meq Pramipexole Dihydrochloride (Mirapex Tab*) 0.5 mg PO BEDTIME [facility] Last Admin: 07/04/18 21:50 Dose: 0.5 mg Tiotropium [place] (Spiriva Cap.Inh*) 1 cap INH DAILY [facility] Last Admin: 07/05/18 07:50 Dose: 1 cap Vital Signs - 8 hr 07/05/18 07/05/18 07/05/18 03:55 05:29 07:29 Temperature 98.0 F Pulse Rate 66 Respiratory 22 20 16 Rate Blood Pressure 124/69 (mmHg) O2 Sat by Pulse 100 Oximetry 07/05/18 07/05/18 07:41 07:52 Temperature 98.1 F Pulse Rate 74 74 Respiratory 16 20 Rate Blood Pressure 125/62 (mmHg) O2 Sat by Pulse 94 93 Oximetry Oxygen Devices in Use Now: None Appearance: sitting up, interactive, NAD Eyes: No Scleral Icterus, PERRLA Ears/Nose/Mouth/Throat: NL Teeth, Lips, Gums, Clear Oropharnyx, Mucous Membranes Moist Neck: NL Appearance and Movements; NL JVP, Trachea Midline Respiratory: Symmetrical Chest Expansion and Respiratory Effort, - - rales b/l up 1/2 from bases Cardiovascular: RRR, - - mid peaking JACK loudest LUSB Abdominal: NL Sounds; No Tenderness; No Distention, No Hepatosplenomegaly Lymphatic: No Cervical Adenopathy Extremities: - - trace edema right LE, left LE amputation Skin: No Rash or Ulcers Neurological: Alert and Oriented x 3 Result Diagrams: 07/05/18 05:52 07/05/18 05:52 Assess/Plan/Problems-Billing Assessment: 58 yo F ICM with biventricular CHF (last EF 35%), DM2 with insulin pump, HTN, restless leg syndrome p/w acute decompensated combined CHF - Patient Problems (1) CHF (congestive heart failure) Comment: ICM with combined CHF in acute exacerbation Weight gain reported as 10 lbs but only 2lb over 14 days at cards visits does not tolerate aldactone or entresto Thought is she is not absorbing PO diuretics (in addition to worsening HF based on TTE) lasix 60mg BID and follow I/Os and kidney karime pagan for monitoring (2) CKD (chronic kidney disease) Comment: Creatinine up after 2 bumex and 60 IV lasix and AM meds. Continue diuresis and follow closely (3) Diabetes Comment: complicated by hypoglycemia this AM Patient does not frequently have evening snacks Did not eat any food yesterday x 24 hrs. Suspect hypoglycemia in setting of not eating (4) HTN (hypertension) Comment: Largely volume mediated c/w coreg does not tolerate spironolactone hyperkalemia in past with ACEi (5) Hypoglycemia Comment: DM2 on insulin pump complicated by hypoglycemia this AM Patient does not frequently have evening snacks Did not eat any food yesterday x 24 hrs. Suspect hypoglycemia in setting of not eating Continue current insulin regime but change if she does not eat FSG AC/HS (6) DVT prophylaxis Comment: HSQ Has port with hep flush for blood draws
[2018-07-05] MEDS: Baclofen TAB* 10 MG PO PRN (14:29)
[2018-07-05] MEDS: Atorvastatin* 20 MG TAB PO SCH (19:30)
[2018-07-05] MEDS: Gabapentin CAP(*) 300 MG PO SCH (19:31)
[2018-07-05] MEDS: Pramipexole TAB* 0.5 MG PO SCH (19:36)
[2018-07-05] MEDS: Ondansetron TAB* 4 MG PO PRN (19:38)
[2018-07-06] MEDS: Heparin VIAL(*) 5000 UNITS/ML VIAL (FIVE THOUSAND) SUBCUT SCH ×3 (05:28→20:34)
[2018-07-06 06:20] LABS: EGFR Non-African American 29.6 (>60)
[2018-07-06] MEDS: Tiotropium CAP.INH* CAP.INH/18 MCG (USE ORDER SET !) INH SCH (08:10)
[2018-07-06] MEDS: Mometasone/Formoter 100/5 MDI INH SCH ×2 (08:10→19:40)
[2018-07-06] MEDS: Furosemide IV* 10 MG/ML VIAL (40 MG) IV SLOW PU SCH (09:39)
[2018-07-06] MEDS: Carvedilol TAB* 3.125 MG PO SCH ×2 (09:40→20:32)
[2018-07-06] MEDS: Allopurinol TAB* 100 MG PO SCH (09:40)
[2018-07-06] MEDS: hydrALAZINE TAB* 10 MG PO SCH ×4 (09:40→20:33)
[2018-07-06] MEDS: Aspirin EC TAB* 81 MG TAB.EC PO SCH (09:40)
[2018-07-06] MEDS: Oxybutynin XL TAB* 5 MG PO SCH (09:40)
[2018-07-06] MEDS: Baclofen TAB* 10 MG PO PRN ×2 (10:01→20:48)
[2018-07-06] MEDS: Potassium Chlor TAB* 20 MEQ TAB.ER PO SCH (10:01)
--- NOTE | 2018-07-06 18:20 | PN ---
Subjective Date of Service: 07/06/18 Interval History: Breathing feels better Mild cough near baseline orthopnea has not walked Objective Active Medications: Acetaminophen (Tylenol Tab*) 650 mg PO Q4H PRN PRN Reason: FEVER/PAIN Albuterol/Ipratropium (Duoneb (Albuterol 2.5 Mg/Ipratropium 0.5 Mg)) 1 neb INH Q4H PRN PRN Reason: WHEEZING Allopurinol (Zyloprim Tab*) 100 mg PO DAILY [facility] Last Admin: 07/06/18 09:40 Dose: 100 mg Aspirin (Aspirin Ec Tab*) 81 mg PO DAILY [facility] Last Admin: 07/06/18 09:40 Dose: 81 mg Atorvastatin Calcium (Lipitor*) 20 mg PO BEDTIME [facility] Last Admin: 07/05/18 19:30 Dose: 20 mg Baclofen (Lioresal Tab*) 10 mg PO TID PRN PRN Reason: LEG CRAMPS Last Admin: 07/06/18 10:01 Dose: 10 mg Carvedilol (Coreg Tab*) 3.125 mg PO BID [facility] Last Admin: 07/06/18 09:40 Dose: 3.125 mg Dextrose (D50w Syringe 50 Ml*) 12.5 gm IV PUSH .FOR FS < 60 - SS PRN PRN Reason: FS < 60 Furosemide (Lasix Iv*) 60 mg IV SLOW PU DAILY [facility] Last Admin: 07/06/18 09:39 Dose: 60 mg Gabapentin (Neurontin Cap(*)) 1,800 mg PO BEDTIME [facility] Last Admin: 07/05/18 19:31 Dose: 1,800 mg Heparin Sodium (Porcine) (Heparin Flush Port (Ivad)) 5 ml FLUSH DAILY [facility]; Protocol Last Admin: 07/06/18 09:40 Dose: 5 ml Heparin Sodium (Porcine) (Heparin Vial(*)) 5,000 units SUBCUT Q8HR [facility] Last Admin: 07/06/18 13:32 Dose: 5,000 units Hydralazine HCl (Apresoline Tab*) 10 mg PO QID [facility] Last Admin: 07/06/18 16:24 Dose: 10 mg Mometasone Furoate/Formoterol Fumar (Dulera 100/5 Mdi*) 2 puff INH BID [facility] Last Admin: 07/06/18 08:10 Dose: 2 puff Ondansetron HCl (Zofran Tab*) 4 mg PO Q6H PRN PRN Reason: NAUSEA Last Admin: 07/05/18 19:38 Dose: 4 mg Oxybutynin Chloride (Ditropan Xl Tab*) 5 mg PO DAILY [facility] Last Admin: 07/06/18 09:40 Dose: 5 mg Oxycodone/Acetaminophen (Percocet 5/325 Tab*) 1 tab PO Q4H PRN PRN Reason: PAIN Last Admin: 07/05/18 19:37 Dose: 1 tab Potassium Chloride (Klor Con Er Tab*) 20 meq PO DAILY [facility] Last Admin: 07/06/18 10:01 Dose: Not Given Pramipexole Dihydrochloride (Mirapex Tab*) 0.5 mg PO BEDTIME [facility] Last Admin: 07/05/18 19:36 Dose: 0.5 mg Tiotropium [place] (Spiriva Cap.Inh*) 1 cap INH DAILY [facility] Last Admin: 07/06/18 08:10 Dose: 1 cap Vital Signs - 8 hr 07/06/18 07/06/18 11:13 15:17 Temperature 98.6 F 98.2 F Pulse Rate 79 82 Respiratory 16 20 Rate Blood Pressure 135/66 151/85 (mmHg) O2 Sat by Pulse 91 94 Oximetry Oxygen Devices in Use Now: None Appearance: NAD Eyes: No Scleral Icterus, PERRLA Ears/Nose/Mouth/Throat: NL Teeth, Lips, Gums, Clear Oropharnyx Neck: NL Appearance and Movements; NL JVP, Trachea Midline Respiratory: Symmetrical Chest Expansion and Respiratory Effort, - - rales up 1/ 2 Cardiovascular: RRR, - - 2/6 JACK RUSB Abdominal: NL Sounds; No Tenderness; No Distention, No Hepatosplenomegaly Extremities: - - left BKA, right trace edema Neurological: Alert and Oriented x 3 Result Diagrams: 07/05/18 05:52 07/06/18 05:45 Microbiology and Other Data: Microbiology 07/04/18 21:12 Urine Culture - Preliminary Urine Klebsiella Pneumoniae Assess/Plan/Problems-Billing Assessment: 58 yo F ICM with biventricular CHF (last EF 35%), DM2 with insulin pump, HTN, restless leg syndrome p/w acute decompensated combined CHF - Patient Problems (1) CHF (congestive heart failure) Comment: ICM with combined CHF in acute exacerbation Weight gain reported as 10 lbs but only 2lb over 14 days at cards visits does not tolerate aldactone or entresto Thought is she is not absorbing PO diuretics (in addition to worsening HF based on TTE) lasix 60mg BID with poor UOP but bump in creatinine decrease to lasix 60mg daily and repeat BMP tomorrow pagan for monitoring (2) CKD (chronic kidney disease) Comment: Continue diuresis and follow closely (3) Diabetes Comment: Has insulin pump complicated by hypoglycemia The 12AM-4:30am basal rate was turned down from 1.5U/hr to 1U/hr and a snack was encouraged before bed (and note sent to nutrition) Pt notes she is eating much less here than at home (4) HTN (hypertension) Comment: Largely volume mediated c/w coreg does not tolerate spironolactone hyperkalemia in past with ACEi (5) UTI (urinary tract infection) Comment: klebsiella past uti's primarily e. coli with multiple resistances start cipro and await sensitivities (6) DVT prophylaxis Comment: HSQ Has port with hep flush for blood draws
[2018-07-06] MEDS: Atorvastatin* 20 MG TAB PO SCH (20:31)
[2018-07-06] MEDS: Ciprofloxacin TAB* 500 MG PO SCH (20:32)
[2018-07-06] MEDS: Gabapentin CAP(*) 300 MG PO SCH (20:33)
[2018-07-06] MEDS: Pramipexole TAB* 0.5 MG PO SCH (20:34)
[2018-07-06] MEDS: oxyCODONE/Acetamin 5/325 MG* TAB PO PRN (20:48)
[2018-07-07] MEDS: Heparin VIAL(*) 5000 UNITS/ML VIAL (FIVE THOUSAND) SUBCUT SCH ×3 (04:42→20:06)
[2018-07-07] MEDS: oxyCODONE/Acetamin 5/325 MG* TAB PO PRN ×2 (05:42→20:23)
[2018-07-07] MEDS ORDERED: Furosemide IV* 10 MG/ML 2 ML VIAL (20 MG) IV ONE (06:39)
[2018-07-07] MEDS: Ondansetron TAB* 4 MG PO PRN (06:40)
[2018-07-07] MEDS ORDERED: Furosemide IV* 10 MG/ML 2 ML VIAL (20 MG) ONE (06:42)
[2018-07-07] MEDS: Furosemide IV* 10 MG/ML 2 ML VIAL (20 MG) IV SLOW PU SCH (06:43)
--- NOTE | 2018-07-07 06:50 | RAD ---
EXAM: CT Head Without Intravenous Contrast "STROKE PROTOCOL" EXAM DATE/TIME: 07/07/18 (6:31am) CLINICAL HISTORY: 58 year old female. Alteration of consciousness. Additional info: Right-sided w/n/t TECHNIQUE: Axial computed tomography images of the head without intravenous contrast. All CT scans at this facility use at least one of these dose optimization techniques: automated exposure control; mA and/or kV adjustment per patient size (includes targeted exams where dose is matched to clinical indication); or iterative reconstruction. COMPARISON: CT HEAD of 04/26/18 FINDINGS: Brain: No acute hemorrhage. No cerebral edema. Age-appropriate atrophic changes. Falx calcifications again seen. Ventricles: Unremarkable. No ventriculomegaly. Bones/joints: Unremarkable. No acute fracture. Soft tissues: Unremarkable. Sinuses: Unremarkable as visualized. No acute sinusitis. Mastoid air cells: Unremarkable as visualized. No mastoid effusion. IMPRESSION: No acute intracranial pathology is appreciated. In general, similar findings were noted 2 months ago.
[2018-07-07] MEDS: Tiotropium CAP.INH* CAP.INH/18 MCG (USE ORDER SET !) INH SCH (07:04)
[2018-07-07] MEDS: Mometasone/Formoter 100/5 MDI INH SCH ×2 (07:05→20:06)
--- NOTE | 2018-07-07 07:18 | PN ---
Progress Note - Progress Note Date of Service: 07/07/18 Note: Nursing called reporting sudden onset of RUE numbness/tingling. Upon my arrival , Mrs Galarza reports onset 45minutes prior of N/T in the RUE and weakness in the R upper and lower extremity. She denies difficulty swallowing, visual changes, and headache. She does admit to some SOB. NIH is 2 for N/T R-side & drift in RUE. Lungs reveal scant bibasilar crackles and mild L>R kc-expiratory wheeze. Code olvera was called. Glucose was 199. CT result is pending. Case was signed out to lead MD Jolanta Mckinley and her primary Hospitalist, Irena Vale MD.
[2018-07-07] MEDS: Potassium Chlor TAB* 20 MEQ TAB.ER PO SCH (07:44)
[2018-07-07] MEDS: hydrALAZINE TAB* 10 MG PO SCH ×4 (09:02→20:04)
[2018-07-07] MEDS: Aspirin EC TAB* 81 MG TAB.EC PO SCH (09:02)
[2018-07-07] MEDS: Carvedilol TAB* 3.125 MG PO SCH ×2 (09:02→20:04)
[2018-07-07] MEDS: Ciprofloxacin TAB* 500 MG PO SCH ×2 (09:02→20:05)
[2018-07-07] MEDS: Furosemide IV* 10 MG/ML VIAL (40 MG) IV SLOW PU SCH (09:02)
[2018-07-07] MEDS: Allopurinol TAB* 100 MG PO SCH (09:02)
[2018-07-07] MEDS: Oxybutynin XL TAB* 5 MG PO SCH (09:04)
--- NOTE | 2018-07-07 17:32 | PN ---
Subjective Date of Service: 07/07/18 Interval History: Events overnight reviewed Code olvera early this AM and CT performed Pt reported right sided weakness and tingling Breathing was temporarily worse this AM but now better Walked down [place]aya yesterday without SOB Max ambulation when well is about 70 ft Objective Active Medications: Acetaminophen (Tylenol Tab*) 650 mg PO Q4H PRN PRN Reason: FEVER/PAIN Albuterol/Ipratropium (Duoneb (Albuterol 2.5 Mg/Ipratropium 0.5 Mg)) 1 neb INH Q4H PRN PRN Reason: WHEEZING Last Admin: 07/07/18 06:57 Dose: 1 neb Allopurinol (Zyloprim Tab*) 100 mg PO DAILY [facility] Last Admin: 07/07/18 09:02 Dose: 100 mg Aspirin (Aspirin Ec Tab*) 81 mg PO DAILY [facility] Last Admin: 07/07/18 09:02 Dose: 81 mg Atorvastatin Calcium (Lipitor*) 20 mg PO BEDTIME [facility] Last Admin: 07/06/18 20:31 Dose: 20 mg Baclofen (Lioresal Tab*) 10 mg PO TID PRN PRN Reason: LEG CRAMPS Last Admin: 07/06/18 20:48 Dose: 10 mg Carvedilol (Coreg Tab*) 3.125 mg PO BID [facility] Last Admin: 07/07/18 09:02 Dose: 3.125 mg Ciprofloxacin (Cipro Tab*) 500 mg PO Q12HR [facility] Last Admin: 07/07/18 09:02 Dose: 500 mg Dextrose (D50w Syringe 50 Ml*) 12.5 gm IV PUSH .FOR FS < 60 - SS PRN PRN Reason: FS < 60 Furosemide (Lasix Iv*) 60 mg IV SLOW PU DAILY [facility] Last Admin: 07/07/18 09:02 Dose: 60 mg Gabapentin (Neurontin Cap(*)) 1,800 mg PO BEDTIME [facility] Last Admin: 07/06/18 20:33 Dose: 1,800 mg Heparin Sodium (Porcine) (Heparin Flush Port (Ivad)) 5 ml FLUSH DAILY [facility]; Protocol Last Admin: 07/07/18 07:25 Dose: Not Given Heparin Sodium (Porcine) (Heparin Vial(*)) 5,000 units SUBCUT Q8HR [facility] Last Admin: 07/07/18 13:56 Dose: 5,000 units Hydralazine HCl (Apresoline Tab*) 10 mg PO QID [facility] Last Admin: 07/07/18 16:44 Dose: 10 mg Mometasone Furoate/Formoterol Fumar (Dulera 100/5 Mdi*) 2 puff INH BID [facility] Last Admin: 07/07/18 07:05 Dose: 2 puff Ondansetron HCl (Zofran Tab*) 4 mg PO Q6H PRN PRN Reason: NAUSEA Last Admin: 07/07/18 06:40 Dose: 4 mg Oxybutynin Chloride (Ditropan Xl Tab*) 5 mg PO DAILY [facility] Last Admin: 07/07/18 09:04 Dose: 5 mg Oxycodone/Acetaminophen (Percocet 5/325 Tab*) 1 tab PO Q4H PRN PRN Reason: PAIN Last Admin: 07/07/18 05:42 Dose: 1 tab Potassium Chloride (Klor Con Er Tab*) 20 meq PO DAILY [facility] Last Admin: 07/07/18 07:44 Dose: Not Given Pramipexole Dihydrochloride (Mirapex Tab*) 0.5 mg PO BEDTIME [facility] Last Admin: 07/06/18 20:34 Dose: 0.5 mg Tiotropium [place] (Spiriva Cap.Inh*) 1 cap INH DAILY [facility] Last Admin: 07/07/18 07:04 Dose: 1 cap Vital Signs - 8 hr 07/07/18 07/07/18 07/07/18 11:08 11:16 15:57 Temperature 96.8 F 98.6 F Pulse Rate 68 78 Respiratory 20 16 Rate Blood Pressure 133/69 155/80 (mmHg) O2 Sat by Pulse 94 95 Oximetry Oxygen Devices in Use Now: None Appearance: sitting up in bed, NAD Eyes: No Scleral Icterus, PERRLA Ears/Nose/Mouth/Throat: NL Teeth, Lips, Gums, Clear Oropharnyx Neck: NL Appearance and Movements; NL JVP, Trachea Midline Respiratory: Symmetrical Chest Expansion and Respiratory Effort, - - rales b/l bases up 10/13- /2 improved since yesterday Cardiovascular: RRR Abdominal: NL Sounds; No Tenderness; No Distention, No Hepatosplenomegaly Lymphatic: No Cervical Adenopathy Extremities: - - no edema, LLE amputation Neurological: Alert and Oriented x 3, - - 1/5 handgrip on left, right arm 5/5 strength, right leg inconsistent effort - unable to lift leg but after elevated can keep up before dropping then picking up again. Result Diagrams: 07/05/18 05:52 07/07/18 04:59 Microbiology and Other Data: Microbiology 07/04/18 21:12 Urine Culture - Preliminary Urine Klebsiella Pneumoniae Assess/Plan/Problems-Billing Assessment: 58 yo F ICM with biventricular CHF (last EF 35%), DM2 with insulin pump, HTN, restless leg syndrome p/w acute decompensated combined CHF - Patient Problems (1) Neurologic abnormality Comment: Review of chart indicates pt has had these transient neuro events during multiple previous hospital stays. She cannot get an MRI because of her PPM and her last carotid study was normal (s/p CEAs). I will repeat CT head tomorrow non con and maintain on tele (2) CHF (congestive heart failure) Comment: ICM with combined CHF in acute exacerbation Weight gain reported as 10 lbs but only 2lb over 14 days at cards visits does not tolerate aldactone or entresto Thought is she is not absorbing PO diuretics (in addition to worsening HF based on TTE) lasix 60mg BID with poor UOP but bump in creatinine decrease to lasix 60mg daily and repeat BMP tomorrow pagan for monitoring Generally pt has had poor diruresis with worsening renal fxn however improving respiratory fxn (3) CKD (chronic kidney disease) Comment: Continue diuresis and follow closely (4) Diabetes Comment: Has insulin pump complicated by hypoglycemia The 12AM-4:30am basal rate was turned down from 1.5U/hr to 1U/hr and a snack was encouraged before bed (and note sent to nutrition) Pt notes she is eating much less here than at home (5) HTN (hypertension) Comment: Largely volume mediated c/w coreg does not tolerate spironolactone hyperkalemia in past with ACEi (6) UTI (urinary tract infection) Comment: klebsiella c/w cipro (7) DVT prophylaxis Comment: HSQ Has port with hep flush for blood draws
[2018-07-07] MEDS: Atorvastatin* 20 MG TAB PO SCH (20:03)
[2018-07-07] MEDS: Gabapentin CAP(*) 300 MG PO SCH (20:05)
[2018-07-07] MEDS: Pramipexole TAB* 0.5 MG PO SCH (20:06)
[2018-07-07] MEDS: Baclofen TAB* 10 MG PO PRN (20:23)
[2018-07-08] MEDS: Heparin VIAL(*) 5000 UNITS/ML VIAL (FIVE THOUSAND) SUBCUT SCH ×3 (04:58→22:07)
[2018-07-08] MEDS: Mometasone/Formoter 100/5 MDI INH SCH ×2 (07:52→20:31)
[2018-07-08] MEDS: Tiotropium CAP.INH* CAP.INH/18 MCG (USE ORDER SET !) INH SCH (07:52)
[2018-07-08] MEDS: Oxybutynin XL TAB* 5 MG PO SCH (08:15)
[2018-07-08] MEDS: Carvedilol TAB* 3.125 MG PO SCH ×2 (08:15→22:07)
[2018-07-08] MEDS: Ciprofloxacin TAB* 500 MG PO SCH ×2 (08:15→22:07)
[2018-07-08] MEDS: hydrALAZINE TAB* 10 MG PO SCH ×4 (08:15→22:07)
[2018-07-08] MEDS: Aspirin EC TAB* 81 MG TAB.EC PO SCH (08:15)
[2018-07-08] MEDS: Allopurinol TAB* 100 MG PO SCH (08:16)
[2018-07-08] MEDS: Furosemide IV* 10 MG/ML VIAL (40 MG) IV SLOW PU SCH (08:16)
[2018-07-08 08:24] LABS: EGFR Non-African American 27.8 (>60)
--- NOTE | 2018-07-08 09:55 | RAD ---
Indication: RIGHT-sided weakness 24 hours duration.. Comparison: July 07, 2018 CT. Technique: Noncontrast CT vertex of skull through foramen magnum. Report: The sulci, ventricles, and basal cisterns are normal for age. Cedeño matter white matter differentiation is preserved without evidence for edema. No intra or extra axial hemorrhage, mass, or fluid collection detected. Falx calcifications noted without change. Unremarkable visualized orbital contents. Unremarkable calvarium and skull base. Unremarkable scalp. Postsurgical change at the maxillary and ethmoid sinuses. The visualized paranasal sinuses and mastoid air spaces are clear. IMPRESSION: #. No CT evidence for acute or subacute ischemic infarct. No acute intracranial process evident. Negative unenhanced head CT for age.
[2018-07-08] MEDS ORDERED: Sodium Polystyrene ORAL.SOL* 15 GM/60 ML BTL PO ONE ×2 (10:05→16:40)
[2018-07-08] MEDS: Baclofen TAB* 10 MG PO PRN (15:20)
[2018-07-08 16:31] LABS: EGFR Non-African American 25.8 (>60)
--- NOTE | 2018-07-08 18:11 | PN ---
Subjective Date of Service: 07/08/18 Interval History: Could not walk as far as yesterday. Right leg felt heavy and more SOB Feels much improved since hospitalization No cough, CP Objective Active Medications: Acetaminophen (Tylenol Tab*) 650 mg PO Q4H PRN PRN Reason: FEVER/PAIN Albuterol/Ipratropium (Duoneb (Albuterol 2.5 Mg/Ipratropium 0.5 Mg)) 1 neb INH Q4H PRN PRN Reason: WHEEZING Last Admin: 07/07/18 06:57 Dose: 1 neb Allopurinol (Zyloprim Tab*) 100 mg PO DAILY [facility] Last Admin: 07/08/18 08:16 Dose: 100 mg Alteplase, Recombinant (Cathflo Activase*) 2 mg IV ONCE ONE Stop: 07/08/18 20:01 Aspirin (Aspirin Ec Tab*) 81 mg PO DAILY [facility] Last Admin: 07/08/18 08:15 Dose: 81 mg Atorvastatin Calcium (Lipitor*) 20 mg PO BEDTIME [facility] Last Admin: 07/07/18 20:03 Dose: 20 mg Baclofen (Lioresal Tab*) 10 mg PO TID PRN PRN Reason: LEG CRAMPS Last Admin: 07/08/18 15:20 Dose: 10 mg Carvedilol (Coreg Tab*) 3.125 mg PO BID [facility] Last Admin: 07/08/18 08:15 Dose: 3.125 mg Ciprofloxacin (Cipro Tab*) 500 mg PO Q12HR [facility] Last Admin: 07/08/18 08:15 Dose: 500 mg Dextrose (D50w Syringe 50 Ml*) 12.5 gm IV PUSH .FOR FS < 60 - SS PRN PRN Reason: FS < 60 Gabapentin (Neurontin Cap(*)) 1,800 mg PO BEDTIME [facility] Last Admin: 07/07/18 20:05 Dose: 1,800 mg Heparin Sodium (Porcine) (Heparin Flush Port (Ivad)) 5 ml FLUSH DAILY [facility]; Protocol Last Admin: 07/08/18 15:50 Dose: 5 ml Heparin Sodium (Porcine) (Heparin Vial(*)) 5,000 units SUBCUT Q8HR [facility] Last Admin: 07/08/18 14:51 Dose: 5,000 units Hydralazine HCl (Apresoline Tab*) 10 mg PO QID [facility] Last Admin: 07/08/18 12:39 Dose: 10 mg Mometasone Furoate/Formoterol Fumar (Dulera 100/5 Mdi*) 2 puff INH BID [facility] Last Admin: 07/08/18 07:52 Dose: 2 puff Ondansetron HCl (Zofran Tab*) 4 mg PO Q6H PRN PRN Reason: NAUSEA Last Admin: 07/07/18 06:40 Dose: 4 mg Oxybutynin Chloride (Ditropan Xl Tab*) 5 mg PO DAILY [facility] Last Admin: 07/08/18 08:15 Dose: 5 mg Oxycodone/Acetaminophen (Percocet 5/325 Tab*) 1 tab PO Q4H PRN PRN Reason: PAIN Last Admin: 07/07/18 20:23 Dose: 1 tab Pramipexole Dihydrochloride (Mirapex Tab*) 0.5 mg PO BEDTIME [facility] Last Admin: 07/07/18 20:06 Dose: 0.5 mg Tiotropium [place] (Spiriva Cap.Inh*) 1 cap INH DAILY [facility] Last Admin: 07/08/18 07:52 Dose: 1 cap Vital Signs - 8 hr 07/08/18 12:28 Temperature 98.4 F Pulse Rate 68 Respiratory 16 Rate Blood Pressure 104/52 (mmHg) O2 Sat by Pulse 93 Oximetry Oxygen Devices in Use Now: None Appearance: NAD Eyes: No Scleral Icterus, PERRLA Ears/Nose/Mouth/Throat: NL Teeth, Lips, Gums Neck: NL Appearance and Movements; NL JVP, Trachea Midline Respiratory: Symmetrical Chest Expansion and Respiratory Effort, - - rales b/l bases up 1/3 Cardiovascular: RRR Abdominal: NL Sounds; No Tenderness; No Distention, No Hepatosplenomegaly Lymphatic: No Cervical Adenopathy Extremities: No Edema, - - left AKA Neurological: Alert and Oriented x 3 Result Diagrams: 07/05/18 05:52 07/08/18 14:00 Microbiology and Other Data: Microbiology 07/04/18 21:12 Urine Culture - Preliminary Urine Klebsiella Pneumoniae Assess/Plan/Problems-Billing Assessment: 58 yo F ICM with biventricular CHF (last EF 35%), DM2 with insulin pump, HTN, restless leg syndrome p/w acute decompensated combined CHF - Patient Problems (1) Neurologic abnormality Comment: Review of chart indicates pt has had similar transient neuro events during multiple previous hospital stays. She cannot get an MRI because of her PPM and her last carotid study was normal (s/p CEAs). repeat CT today without change (2) CHF (congestive heart failure) Comment: ICM with combined CHF in acute exacerbation Does not tolerate aldactone or entresto Thought by cards office is she is not absorbing PO diuretics (in addition to worsening HF based on TTE) lasix 60mg BID with poor UOP but bump in creatinine then decreased to lasix 60mg daily Creatinine is still rising but this may also reflect hemoconcentration (bicarb not changing) Change to bumex 2mg (1/2 out pt and no metolazone tomorrow) pagan for monitoring Generally pt has had poor diruresis with worsening renal fxn however improving respiratory fxn (3) CKD (chronic kidney disease) Comment: Continue diuresis and follow closely (4) Diabetes Comment: Has insulin pump complicated by hypoglycemia The 12AM-4:30am basal rate was turned down from 1.5U/hr to 1U/hr and a snack was encouraged before bed (and note sent to nutrition) Pt notes she is eating much less here than at home (5) HTN (hypertension) Comment: Largely volume mediated c/w coreg does not tolerate spironolactone hyperkalemia in past with ACEi (6) UTI (urinary tract infection) Comment: klebsiella c/w cipro d2/3 (7) Hyperkalemia Comment: argues for decreased GFR kayexalate today. No BM in between repeat BMPs this am in the afternoon Additional kayexalate then repeat BMP tonight (8) DVT prophylaxis Comment: HSQ Has port with hep flush for blood draws
[2018-07-08] MEDS: oxyCODONE/Acetamin 5/325 MG* TAB PO PRN (18:32)
[2018-07-08] MEDS ORDERED: Alteplase (CATHFLO)* 2 MG VIAL IV ONE (20:00)
[2018-07-08] MEDS: Gabapentin CAP(*) 300 MG PO SCH (22:07)
[2018-07-08] MEDS: Pramipexole TAB* 0.5 MG PO SCH (22:07)
[2018-07-08] MEDS: Atorvastatin* 20 MG TAB PO SCH (22:07)
[2018-07-09] MEDS: Heparin VIAL(*) 5000 UNITS/ML VIAL (FIVE THOUSAND) SUBCUT SCH ×3 (05:00→20:24)
[2018-07-09 05:25] LABS: EGFR Non-African American 33.2 (>60)
[2018-07-09] MEDS: Tiotropium CAP.INH* CAP.INH/18 MCG (USE ORDER SET !) INH SCH (07:18)
[2018-07-09] MEDS: Mometasone/Formoter 100/5 MDI INH SCH ×2 (07:20→20:35)
[2018-07-09] MEDS: Aspirin EC TAB* 81 MG TAB.EC PO SCH (10:05)
[2018-07-09] MEDS: Carvedilol TAB* 3.125 MG PO SCH ×2 (10:06→19:40)
[2018-07-09] MEDS: hydrALAZINE TAB* 10 MG PO SCH ×4 (10:06→19:40)
[2018-07-09] MEDS: Bumetanide TAB* 2 MG PO SCH (10:06)
[2018-07-09] MEDS: Ciprofloxacin TAB* 500 MG PO SCH ×2 (10:06→19:40)
[2018-07-09] MEDS: Allopurinol TAB* 100 MG PO SCH (10:06)
[2018-07-09] MEDS: oxyCODONE/Acetamin 5/325 MG* TAB PO PRN (10:07)
[2018-07-09] MEDS: Oxybutynin XL TAB* 5 MG PO SCH (10:07)
[2018-07-09] MEDS ORDERED: Ondansetron INJ* 2 MG/ML VIAL ONE (13:28)
[2018-07-09] MEDS: Ondansetron INJ* 2 MG/ML VIAL IV PRN ×2 (13:31→20:23)
[2018-07-09] MEDS ORDERED: Metolazone TAB* 5 MG PO ONE (15:33)
--- NOTE | 2018-07-09 15:39 | PN ---
Subjective Date of Service: 07/09/18 Interval History: Pt feels breathing is worse today. Discussed going home which she is OK with but then developed vomiting that lasted several hours and required IV zofran. We agreed to continued inpt stay until tomorrow to reassess Net negative >1 L however weight still up. Suspect weight are not accurate Objective Active Medications: Acetaminophen (Tylenol Tab*) 650 mg PO Q4H PRN PRN Reason: FEVER/PAIN Albuterol/Ipratropium (Duoneb (Albuterol 2.5 Mg/Ipratropium 0.5 Mg)) 1 neb INH Q4H PRN PRN Reason: WHEEZING Last Admin: 07/07/18 06:57 Dose: 1 neb Allopurinol (Zyloprim Tab*) 100 mg PO DAILY [facility] Last Admin: 07/09/18 10:06 Dose: 100 mg Aspirin (Aspirin Ec Tab*) 81 mg PO DAILY [facility] Last Admin: 07/09/18 10:05 Dose: 81 mg Atorvastatin Calcium (Lipitor*) 20 mg PO BEDTIME [facility] Last Admin: 07/08/18 22:07 Dose: 20 mg Baclofen (Lioresal Tab*) 10 mg PO TID PRN PRN Reason: LEG CRAMPS Last Admin: 07/08/18 15:20 Dose: 10 mg Bumetanide (Bumex Tab*) 2 mg PO DAILY [facility] Last Admin: 07/09/18 10:06 Dose: 2 mg Bumetanide (Bumex Tab*) 2 mg PO ONCE ONE Stop: 07/09/18 15:33 Carvedilol (Coreg Tab*) 3.125 mg PO BID [facility] Last Admin: 07/09/18 10:06 Dose: 3.125 mg Ciprofloxacin (Cipro Tab*) 500 mg PO Q12HR [facility] Last Admin: 07/09/18 10:06 Dose: 500 mg Dextrose (D50w Syringe 50 Ml*) 12.5 gm IV PUSH .FOR FS < 60 - SS PRN PRN Reason: FS < 60 Gabapentin (Neurontin Cap(*)) 1,800 mg PO BEDTIME [facility] Last Admin: 07/08/18 22:07 Dose: 1,800 mg Heparin Sodium (Porcine) (Heparin Flush Port (Ivad)) 5 ml FLUSH DAILY [facility]; Protocol Last Admin: 07/09/18 10:08 Dose: 5 ml Heparin Sodium (Porcine) (Heparin Vial(*)) 5,000 units SUBCUT Q8HR [facility] Last Admin: 07/09/18 14:37 Dose: 5,000 units Hydralazine HCl (Apresoline Tab*) 10 mg PO QID [facility] Last Admin: 07/09/18 14:37 Dose: 10 mg Metolazone (Zaroxolyn Tab*) 5 mg PO ONCE ONE Stop: 07/09/18 15:34 Mometasone Furoate/Formoterol Fumar (Dulera 100/5 Mdi*) 2 puff INH BID [facility] Last Admin: 07/09/18 07:20 Dose: 2 puff Ondansetron HCl (Zofran Tab*) 4 mg PO Q6H PRN PRN Reason: NAUSEA Last Admin: 07/07/18 06:40 Dose: 4 mg Ondansetron HCl (Zofran Inj*) 4 mg IV Q6H PRN PRN Reason: NAUSEA Last Admin: 07/09/18 13:31 Dose: 4 mg Oxybutynin Chloride (Ditropan Xl Tab*) 5 mg PO DAILY [facility] Last Admin: 07/09/18 10:07 Dose: 5 mg Oxycodone/Acetaminophen (Percocet 5/325 Tab*) 1 tab PO Q4H PRN PRN Reason: PAIN Last Admin: 07/09/18 10:07 Dose: 1 tab Pramipexole Dihydrochloride (Mirapex Tab*) 0.5 mg PO BEDTIME [facility] Last Admin: 07/08/18 22:07 Dose: 0.5 mg Tiotropium [place] (Spiriva Cap.Inh*) 1 cap INH DAILY [facility] Last Admin: 07/09/18 07:18 Dose: 1 cap Vital Signs - 8 hr 07/09/18 07/09/18 07/09/18 08:00 08:24 10:07 Temperature 98.1 F Pulse Rate 84 Respiratory 16 20 16 Rate Blood Pressure 164/78 (mmHg) O2 Sat by Pulse 96 Oximetry 07/09/18 07/09/18 12:14 12:47 Temperature 98.1 F Pulse Rate 65 Respiratory 20 18 Rate Blood Pressure 142/71 (mmHg) O2 Sat by Pulse 98 Oximetry Oxygen Devices in Use Now: None Appearance: fatigued, NAD Eyes: No Scleral Icterus, PERRLA Ears/Nose/Mouth/Throat: NL Teeth, Lips, Gums, Clear Oropharnyx, Mucous Membranes Moist Neck: NL Appearance and Movements; NL JVP, Trachea Midline Respiratory: Symmetrical Chest Expansion and Respiratory Effort, - - rales bottone 1/3 b/l Cardiovascular: RRR Abdominal: NL Sounds; No Tenderness; No Distention, No Hepatosplenomegaly Lymphatic: No Cervical Adenopathy Extremities: No Edema Neurological: Alert and Oriented x 3 Result Diagrams: 07/05/18 05:52 07/09/18 05:00 Microbiology and Other Data: Microbiology 07/04/18 21:12 Urine Culture - Preliminary Urine Klebsiella Pneumoniae Assess/Plan/Problems-Billing Assessment: 58 yo F ICM with biventricular CHF (last EF 35%), DM2 with insulin pump, HTN, restless leg syndrome p/w acute decompensated combined CHF - Patient Problems (1) CHF (congestive heart failure) Comment: ICM with combined CHF in acute exacerbation Does not tolerate aldactone or entresto Thought by cards office is she is not absorbing PO diuretics (in addition to worsening HF based on TTE) Good UOP yesterday and improvement in renal fxn but weight up and breathing worse 4mg bumex today with metolazone (outpatient regimen) will help give idea of UOP pagan for monitoring (straight caths 2x daily at home) Generally pt has had poor diruresis with worsening renal fxn however improving respiratory fxn (2) Neurologic abnormality Comment: No additional focal neuro symptoms since 07/07 Review of chart indicates pt has had similar transient neuro events during multiple previous hospital stays. She cannot get an MRI because of her PPM and her last carotid study was normal (s/p CEAs). repeat CT today without change (3) CKD (chronic kidney disease) Comment: Continue diuresis and follow closely (4) Diabetes Comment: Has insulin pump complicated by hypoglycemia The 12AM-4:30am basal rate was turned down from 1.5U/hr to 1U/hr and a snack was encouraged before bed (and note sent to nutrition) Pt notes she is eating much less here than at home (5) HTN (hypertension) Comment: Largely volume mediated c/w coreg does not tolerate spironolactone hyperkalemia in past with ACEi (6) UTI (urinary tract infection) Comment: klebsiella c/w cipro d3/3 (7) Hyperkalemia Comment: Improved with kayexalate repeat bmp tomorrow (8) DVT prophylaxis Comment: HSQ Has port with hep flush for blood draws
[2018-07-09] MEDS ORDERED: Bumetanide TAB* 2 MG PO ONE (16:00)
[2018-07-09] MEDS: Atorvastatin* 20 MG TAB PO SCH (19:40)
[2018-07-09] MEDS: Gabapentin CAP(*) 300 MG PO SCH (19:40)
[2018-07-09] MEDS: Pramipexole TAB* 0.5 MG PO SCH (19:41)
[2018-07-10] MEDS: Heparin VIAL(*) 5000 UNITS/ML VIAL (FIVE THOUSAND) SUBCUT SCH ×2 (05:57→13:41)
[2018-07-10 06:44] LABS: EGFR Non-African American 28.5 (>60)
[2018-07-10] MEDS: Mometasone/Formoter 100/5 MDI INH SCH (08:37)
[2018-07-10] MEDS: Tiotropium CAP.INH* CAP.INH/18 MCG (USE ORDER SET !) INH SCH (08:37)
[2018-07-10] MEDS: Oxybutynin XL TAB* 5 MG PO SCH (08:41)
[2018-07-10] MEDS: Baclofen TAB* 10 MG PO PRN (08:41)
[2018-07-10] MEDS: hydrALAZINE TAB* 10 MG PO SCH ×2 (08:41→12:34)
[2018-07-10] MEDS: Bumetanide TAB* 2 MG PO SCH (08:41)
[2018-07-10] MEDS: Ciprofloxacin TAB* 500 MG PO SCH (08:41)
[2018-07-10] MEDS: Aspirin EC TAB* 81 MG TAB.EC PO SCH (08:42)
[2018-07-10] MEDS: Carvedilol TAB* 3.125 MG PO SCH (08:42)
[2018-07-10] MEDS: Allopurinol TAB* 100 MG PO SCH (08:42)
[2018-07-10 15:29] VITALS: BP 150/74
--- NOTE | 2018-07-11 04:03 | DS ---
CC: Dr. León; Dr. Johnson * DISCHARGE SUMMARY: DATE OF ADMISSION: 07/04/18 DATE OF DISCHARGE: 07/10/18 PRIMARY CARE PROVIDER: Dr. León. EVENT COORDINATOR: Dr. Johnson. PRIMARY DIAGNOSES: 1. Combined systolic diastolic heart failure exacerbation. 2. Acute kidney failure. 3. Urinary tract infection. 4. Hyperkalemia. 5. Hypoglycemia as complication of insulin therapy. SECONDARY DIAGNOSES: Include: 1. Insulin-dependent type 2 diabetes, on insulin pump. 2. Transient ischemic attack like symptoms during course of hospital stay. 3. Coronary artery disease. 4. Hypertension. 5. Hyperlipidemia. MEDICATIONS ON DISCHARGE: Include: 1. Bumex 2 mg daily. Please note decreased from 4 mg daily. 2. Metolazone 5 mg daily, taking 30 minutes before Bumex. 3. Oxybutynin XL 5 mg daily. 4. Acetaminophen 650 mg every 4 hours as needed. 5. Percocet 5/325 every 4 hours as needed. 6. Carvedilol 3.125 mg twice daily. 7. Atorvastatin 20 mg at bedtime. 8. Ondansetron 4 mg every 6 hours as needed. 9. Dulera 100/5 two puffs twice daily. 10. Allopurinol 100 mg daily. 11. DuoNeb 1 neb every 4 hours as needed. 12. Hydralazine 10 mg 4 times a day. 13. Mirapex 0.5 mg at bedtime. 14. Gabapentin 1800 to 2400 mg at bedtime. 15. Aspirin 81 mg daily. 16. Nitroglycerin sublingual tabs. 17. Tiotropium 1 cap inhaled daily. 18. Loperamide 4 mg daily as needed. 19. Insulin delivered with continuous and bolus dosing via continuous insulin pump. PERTINENT IMAGING STUDIES: Chest x-ray, alveolar and interstitial pulmonary edema with associated small dependent pleural effusions. Brain CAT scan on 07/07/18. No acute intracranial pathology. Repeat brain CT on 07/08, unchanged from prior. PERTINENT LABORATORY DATA: Creatinine on presentation 1.35, peaked at 1.99, on discharge 1.83. Potassium on the day of discharge was 4.5. Microbiology, Klebsiella pneumoniae resistant to ampicillin, indeterminate to nitrofurantoin. 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 She [place] [facility] [place] [facility] where she was admitted for combined CHF exacerbation, was started on IV diuretics. It was noted that she was having poor urine output despite increasing doses of diuresis. However, her symptomatology had improved. However, on 07/09/18 prior to discharge, it was found that her Mckeon catheter had been kinked and she ultimately produced 1700 cc of fluid followed on 07/10/18 by 4095 mL of fluid. I do think there is an element of postobstructive diuresis and after the obstruction was relieved by untwisting the Mckeon catheter, she diuresed well. On the day of discharge, she received 2 mg of Bumex and had 1200 cc of fluid out by 2 p.m. indicated the postobstruction. Diuresis had resolved and creatinine did climb to 1.83 on the day of discharge in the setting of the previous days 4000 mL diuresis. Complications during the hospital stay included hypoglycemia. The patient has had continuous infusion of insulin pump. She note she was eating less and was not eating a snack before bedtime. We this, we decreased the basal rate from 1.5 to 1.0 unit per hour between hours of 12 a.m. and 4:30 a.m. This was fixed prior to discharge. She was diagnosed with the Klebsiella urinary tract infection. She was given 3 days of ciprofloxacin. She was found to have hyperkalemia likely in the setting of obstructive uropathy from the Mckeon, which improved with Kayexalate and further diuresis. Additionally, she had an event where her right side of her body felt weak on 07/07/18. She has had several episodes of transient neurological events previous hospital stays, has been unable to get an MRI secondary to permanent pacemaker. A CAT scan was negative and a repeat CAT scan the following day was negative. It was thought in her exam, there was inconsistent effort with mixed signs including ability to lift leg but then not lift leg up, unable to squeeze hand but able to hold arm outstretched for 10 seconds without difficulty. No further investigation was underwent, however, she was cautioned to return to the hospital if these symptoms should return. On the day of discharge, the patient did have rales in the bases of approximately one third, improved from approximately one half of her lungs. She required no oxygen and was able to ambulate around the unit without shortness of breath, which is greater than her maximal distance at home of approximately 70 feet. The patient was anxious to return home. She was encouraged to continue weighing herself daily and she will follow up with Dr. Johnson's office within the week to evaluate current dose of Bumex and metolazone. At followup, please; 1. Repeat BMI in 1 week to evaluate potassium and creatinine. 2. Adjust diuretics as you have in past. 3. No other specific labs or vitals that need followup. Reasons to return to the hospital including, but not limited to recurrent or worsening symptoms, shortness of breath, chest pain, nausea, vomiting, lightheadedness, loss of consciousness, near loss of consciousness, bleeding from any source, inability to obtain or tolerating medication discussed with the patient. She acknowledged understanding. TIME SPENT: Greater than 60 minutes were spent on discharging this patient; greater than half was spent [id number] with the patient. [id number]/[facility] #: [id number] [place]
== END 2018-07-10 16:30 | disposition home or self-care (01) | DRG 291 ==
LOC: ED 15:35 → MEDTELE 19:36
PROVIDERS: ADMIT Hospitalist; ATTEND Internal Medicine
DX: I13.0 Hypertensive heart and chronic kidney disease with heart failure and stage 1 through stage 4 chronic kidney disease, or unspecified chronic kidney disease (principal); I50.23 Acute on chronic systolic (congestive) heart failure; N39.0 Urinary tract infection, site not specified; E11.22 Type 2 diabetes mellitus with diabetic chronic kidney disease; E11.649 Type 2 diabetes mellitus with hypoglycemia without coma; E11.42 Type 2 diabetes mellitus with diabetic polyneuropathy; B96.1 Klebsiella pneumoniae [K. pneumoniae] as the cause of diseases classified elsewhere; N18.3 Chronic kidney disease, stage 3 (moderate); E11.43 Type 2 diabetes mellitus with diabetic autonomic (poly)neuropathy; I25.10 Atherosclerotic heart disease of native coronary artery without angina pectoris; M48.00 Spinal stenosis, site unspecified; Z96.41 Presence of insulin pump (external) (internal); R29.90 Unspecified symptoms and signs involving the nervous system; I70.8 Atherosclerosis of other arteries; G25.81 Restless legs syndrome; R07.9 Chest pain, unspecified; J44.9 Chronic obstructive pulmonary disease, unspecified; D63.1 Anemia in chronic kidney disease; E78.5 Hyperlipidemia, unspecified; K31.84 Gastroparesis; Z79.01 Long term (current) use of anticoagulants; Z89.512 Acquired absence of left leg below knee; Z86.73 Personal history of transient ischemic attack (TIA), and cerebral infarction without residual deficits; Z79.4 Long term (current) use of insulin; Z79.1 Long term (current) use of non-steroidal anti-inflammatories (NSAID); Z79.82 Long term (current) use of aspirin; Z79.899 Other long term (current) drug therapy; Z88.5 Allergy status to narcotic agent; Z88.0 Allergy status to penicillin; Z88.2 Allergy status to sulfonamides; Z88.8 Allergy status to other drugs, medicaments and biological substances; Z91.030 Bee allergy status; Z87.891 Personal history of nicotine dependence
CPT/HCPCS: 36415; 70450; 71046; 80048; 80053; 81003; 81015; 82947; 83605; 83735; 83880; 84132; 84436; 84443; 84484; 85025; 85060; 85610; 85730; 86140; 87077; 87086; 87186; 93005; 94640; 99284; A9270-GY; J1200; J1642; J1644; J1940; J2405; J2765

== ENCOUNTER 2019-03-08 19:24 | Inpatient (IN) | payer MEDICARE, MEDICAID ==
--- NOTE | 2019-03-08 22:28 | ED ---
Shortness of Breath - HPI Summary HPI Summary: Patient complains of increasing shortness of breath due to "fluid in the lungs" , also complains of right lower extremity swelling and "infection" 1 week. Patient evaluated by PCP today and sent to the ED for further evaluation. Denies fever, cough, sore throat, CP, N/V/D, abdominal pain, change in urine, change in BM. Medical history CVA, HLD, CHF, CKD, COPD, DM 2. History of left AKA. - History of Current Complaint Chief Complaint: EDGeneral Time Seen by Provider: 03/08/19 21:22 Hx Obtained From: Patient Onset/Duration: Gradual Onset, Lasting Days Current Severity: Moderate Dyspnea At: Orthopena Aggrevating Factors: Recumbent Position Associated Signs & Symptoms: Edema - Allergy/Home Medications Allergies/Adverse Reactions: Allergies Allergy/AdvReac Type Severity Reaction Status Date / Time bee venom protein (honey bee) Allergy Anaphylatic Verified 07/04/18 15:42 Shock Cephalosporins Allergy Shortness Verified 07/04/18 15:42 of Breath codeine Allergy GI Upset Verified 07/04/18 15:42 diphenhydramine Allergy Difficulty Verified 07/04/18 15:42 [From Benadryl] Breathing Penicillins Allergy Hives Verified 07/04/18 15:42 Sulfa (Sulfonamide Allergy Hives Verified 07/04/18 15:42 Antibiotics) PMH/Surg Hx/FS Hx/Imm Hx Endocrine/Hematology History: Reports: Hx Anticoagulant Therapy, Hx Blood Transfusions, Hx Diabetes, Hx Thyroid Disease - Goiter, Hx Anemia, Other Endocrine/Hematological Disorders - anemia Denies: Hx Systemic Lupus Erythematosus Cardiovascular History: Reports: Hx Angioplasty, Hx Auto Implanted Cardiovert Defib, Hx Cardiac Arrest, Hx Congestive Heart Failure, Hx Coronary Artery Disease, Hx Hypercholesterolemia, Hx Hypertension, Hx Myocardial Infarction, Hx Pacemaker/ICD, Hx Peripheral Vascular Disease, Hx Valvular Heart Disease, Other Cardiovascular Problems/Disorders - triple bypass in [place], hyperlipidemia, ICD, carotid endarterectomy Denies: Hx Angina Respiratory History: Reports: Hx Asthma, Hx Chronic Bronchitis, Hx Chronic Obstructive Pulmonary Disease (COPD), Hx Pneumonia, Hx Pulmonary Edema, Hx Pulmonary Embolism, Hx Seasonal Allergies, Hx Sleep Apnea, Other Respiratory Problems/Disorders - respiratory failure, uses home oxygen GI History: Reports: Hx Gall Bladder Disease Denies: Hx Ulcer, Other GI Disorders History: Reports: Hx Chronic Renal Failure, Other Problems/Disorders - recent UTI Denies: Hx Dialysis, Hx Renal Disease Musculoskeletal History: Reports: Hx Arthritis, Hx Back Problems, Hx Fibromyalgia, Hx Scoliosis, Other Musculoskeletal History - left below knee amputation, restless leg syndrome, osteomyelitis Denies: Hx Rheumatoid Arthritis, Hx Osteoporosis Sensory History: Reports: Hx Cataracts - no surgery needed yet, Hx Contacts or Glasses, Hx Vision Problem, Hx Hearing Problem - R ear numbness and decreased hearing r/t TIA per pt Denies: Hx Deafness, Hx Hearing Aid Opthamlomology History: Reports: Hx Cataracts - no surgery needed yet, Hx Contacts or Glasses, Hx Vision Problem Neurological History: Reports: Hx Migraine, Hx Nerve Disease - Diabetic Peripheral Neuropathy, Hx Seizures - reports last one 30 yrs ago, Hx Transient Ischemic Attacks (TIA), Other Neuro Impairments/Disorders - peripheral neuropathy Denies: Hx Dementia Psychiatric History: Reports: Hx Anxiety, Hx Depression Denies: Hx Panic Disorder - Cancer History Hx Chemotherapy: No - Surgical History Surgery Procedure, Year, and Place: CARDIAC STENTS(4 PROMUS AND 1 VISIPRO PLACED AT [facility] [place]-1.5T ONLY DUE TO CONDITIONAL STATUS OF MAX SPAT. GRAD. 720), TRIPLE BYPASS, BILATERAL CAROTID ENDARTERECTOMY ,LAP ADDY,HYSTERECTOMY,LEFT GREAT TOE AMPUTATION,APPY, T&A ,STERNAL WIRES ,LUMBAR SPINE FUSION,CSP FUSION , C SECTION,BACK SURGERY-LASER SURGERY. defib,port, left below knee amputation jul 2017 Hx Anesthesia Reactions: No - Immunization History Date of Tetanus Vaccine: 2015 Date of Influenza Vaccine: 2015 Infectious Disease History: Yes Infectious Disease History: Reports: Hx Clostridium Difficile, Hx of Known/ Suspected MRSA Denies: Hx Hepatitis, Hx Human Immunodeficiency Virus (HIV), Hx Shingles, Hx Tuberculosis, Hx Known/Suspected VRE, Hx Known/Suspected VRSA, History Other Infectious Disease, Traveled Outside the [place] in Last 30 Days - Family History Known Family History: Positive: Unknown - Pt is adopted and does not know her FHx - Social History Alcohol Use: None Hx Substance Use: No Substance Use Type: Reports: None Hx Tobacco Use: Yes Smoking Status (MU): Light Every Day Tobacco Smoker Type: Cigarettes Amount Used/How Often: patient reports smoking 3 cigarettes per day Length of Time of Smoking/Using Tobacco: 30 years Have You Smoked in the Last Year: Yes Review of Systems Constitutional: Negative Eyes: Negative ENT: Negative Cardiovascular: Negative Positive: Shortness Of Breath Gastrointestinal: Negative Genitourinary: Negative Musculoskeletal: Negative Skin: Other Neurological: Negative Psychological: Normal All Other Systems Reviewed And Are Negative: Yes Physical Exam - Summary Physical Exam Summary: Erythema and 1+ pitting edema to right lower extremity. No evidence of trauma, however there is tissue breakdown on right posterior calf. Most of right lower extremity tight from edema. Sdljr-bam-[id number] amputation on left lower extremity. Lung sounds clear to auscultation bilaterally. RRR. Abdomen soft nontender. Triage Information Reviewed: Yes Vital Signs On Initial Exam: Initial Vitals Temp Pulse Resp BP Pulse Ox 99.0 F 109 24 188/89 99 03/08/19 19:27 03/08/19 19:27 03/08/19 19:27 03/08/19 19:27 03/08/19 19:27 Vital Signs Reviewed: Yes Appearance: Positive: Well-Appearing Skin: Positive: Warm Head/Face: Positive: Normal Head/Face Inspection Eyes: Positive: Normal Neck: Positive: Supple Respiratory/Lung Sounds: Positive: Clear to Auscultation Cardiovascular: Positive: Normal Abdomen Description: Positive: Nontender Musculoskeletal: Positive: Normal Neurological: Positive: Normal Psychiatric: Positive: Normal AVPU Assessment: Alert - [place] Coma Scale Best Eye Response: 4 - Spontaneous Best Motor Response: 6 - Obeys Commands Best Verbal Response: 5 - Oriented Coma Scale Total: 15 Diagnostics - Vital Signs Vital Signs Temp Pulse Resp BP Pulse Ox 03/08/19 19:27 99.0 F 109 24 188/89 99 - Laboratory Result Diagrams: 03/08/19 23:18 03/08/19 23:18 Lab Statement: Any lab studies that have been ordered have been reviewed, and results considered in the medical decision making process. Course/Dx - Course Course Of Treatment: Patient complains of increasing shortness of breath due to "fluid in the lungs", also complains of right lower extremity swelling and "infection" 1 week. Patient evaluated by PCP today and sent to the ED for further evaluation. Denies fever, cough, sore throat, CP, N/V/D, abdominal pain , change in urine, change in BM. Medical history CVA, HLD, CHF, CKD, COPD, DM 2. History of left AKA. Physical exam:Erythema and 1+ pitting edema to right lower extremity. No evidence of trauma, however there is tissue breakdown on right posterior calf. Most of right lower extremity tight from edema. Above- the-knee amputation on left lower extremity. Lung sounds clear to auscultation bilaterally. RRR. Abdomen soft nontender. Heart rate 109. Respiratory rate 24. Vital signs otherwise normal. Hemoglobin 6.7. Potassium 2.8. Platelet count 700. Creatinine 2.65. Troponin 0.08. BNP 1236. Chest x-ray positive for mild pleural effusion. EKG paced rhythm, consistent with prior. Admitted to hospitalist. - Diagnoses Provider Diagnoses: Hypokalemia, Anemia, Shortness of breath, Elevated troponin, Yszyp-zl-idohshk kidney injury, Elevated brain natriuretic peptide (BNP) level, Elevated platelet count Discharge - Sign-Out/Discharge Documenting (check all that apply): Patient Departure Patient Received Moderate/Deep Sedation with Procedure: No - Discharge Plan Condition: Fair Disposition: ADMITTED TO [facility] Referrals: Matilde León MD [Primary Care Provider] - - Billing Disposition and Condition Condition: FAIR Disposition: Admitted to [facility]
[2019-03-08 23:38] LABS: INR 0.95 (0.82-1.09)
[2019-03-08 23:49] LABS: ABS Basophils 0.1 10^3/ul (0-0.2); ABS Eosinophils 0.3 10^3/ul (0-0.6); ABS Lymphocytes 1.2 10^3/ul (1.0-4.8); ABS Monocytes 0.9 10^3/ul (0-0.8); ABS Neutrophils 16.4 10^3/ul (1.5-7.7); Eosinophil % 1.5 %; Hematocrit 22 % (35-47); Hemoglobin 6.7 g/dL (12.0-16.0); Lymphocyte % 6.3 %; Mean Corpuscular HGB Conc 30 g/dL (31-36); Mean Corpuscular Hemoglobin 25 pg (27-31); Mean Corpuscular Volume 82 fL (80-97); Platelet Count 700 10^3/uL (150-450); Red Blood Count 2.71 10^6 /uL (3.70-4.87); Red Cell Distribution Width 19 % (10.5-15); White Blood Count 18.8 10^3/uL (3.5-10.8)
[2019-03-08 23:50] LABS: ALT 8 U/L (7-52); AST 10 U/L (13-39); Albumin 2.5 g/dL (3.2-5.2); Albumin/Globulin Ratio 0.8 (1-3); Alkaline Phosphatase 144 U/L (34-104); Anion Gap 10 mmol/L (2-11); BUN/Creatinine Ratio 16.2 (8-20); Blood Urea Nitrogen 43 mg/dL (6-24); C Reactive Protein 81.98 mg/L (<8.01); CO2 Carbon Dioxide 20 mmol/L (22-32); Calcium 8.3 mg/dL (8.6-10.3); Chloride 100 mmol/L (101-111); EGFR African American 22.5 (>60); EGFR Non-African American 18.6 (>60); Globulin 3.2 g/dL (2-4); Glucose 384 mg/dL (70-100); Potassium 2.8 mmol/L (3.5-5.0); Sodium 130 mmol/L (135-145); Total Protein 5.7 g/dL (6.4-8.9)
[2019-03-08 23:56] LABS: Troponin I 0.08 ng/mL (<0.04)
[2019-03-09] MEDS ORDERED: Potassium Chlor TAB* 20 MEQ TAB.ER PO ONE (00:26)
--- NOTE | 2019-03-09 00:52 | HP ---
History of Present Illness - History of Present Illness History of Present Illness: PCP: Dr. León HPI: Patient is 58 year old with chronic pain, who has had progressive swelling , redness, and pain of RT calf and winston for 10 days. She was seen at home by her PCP 3 days prior to admission, and advised to come to hospital due to edema and weeping wound of RT calf. She was also treated as an outpatient with 1 week of antibiotic ending about 3 days ago. She has type 1 diabetes since age 13 with nephropathy, PVD, and peripheral neuropathy. She is status post BK amputation of LT leg due to osteomyelitis of foot. She reports fevers of 99 at home. She has CAD, with ischemic cardiomyopathy, ejection fraction of 40% in 09/26 when last echo was performed. She denies chest pain, but she reports dyspnea at rest and feels like her lungs are filling up. She also has anemia that has defied hematology workup. She has had extensive testing, bone marrow biopsies, and she is intermittently iron deficient. She also has elevated kappa and lambda light chains, but she does not have a clear myeloma. 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 Alcohol: None Drugs: None Lives: With Family - , 2 children, is HCP, patient is DNR Review of Systems - Measurements Intake and Output: Intake and Output Last 24 Hours 03/06/19 03/07/19 03/08/19 03/09/19 06:59 06:59 06:59 06:59 Weight 69.853 kg - Review of Systems Constitutional Symptoms: Positive: Fatigue Dermatology: Positive: Rash HEENT: Positive: Normal Thyroid: Positive: Normal Pulmonary: Positive: Shortness of Breath, COPD Cardiology: Positive: Shortness of Breath, Swelling of Ankles, Peripheral Vascular Dis, Orthopnoea Negative: Chest Pain, Proximal NocturnalDyspnea Gastroenterology: Positive: Normal Genital - Urinary: Positive: Normal Genitourinay - Female: Positive: Menopause Musculoskeletal: Positive: Joint Pain Endocrinology: Positive: Diabetes Mellitus, Diabetic Foot Ulcers Hematologic/Lymphatic: Positive: Anemia Neurology: Positive: Normal Psychiatry: Positive: Normal Objective Active Medications: Ambulatory Orders Gabapentin TAB(NF) [Neurontin 600 mg TAB(NF)] 1,800 - 2,400 mg PO BEDTIME 05/27 Mometasone/Formoter 100/5 MDI* [Dulera 100/5 MDI*] 2 puff INH BID 09/17/17 Pramipexole TAB* [Mirapex TAB*] 0.5 mg PO BEDTIME 10/20/17 Ondansetron TAB* [Zofran 4 MG Tab*] 4 mg PO Q6H PRN 03/05/18 Acetaminophen TAB* [Tylenol TAB*] 650 mg PO Q4H PRN tab 03/21/18 Albuterol/Ipratropium NEB.DION* [Duoneb (Albuterol 2.5 MG/Ipratropium 0.5 MG)] 1 neb INH Q4H PRN #30 neb.soln 03/21/18 Metolazone TAB* [Zaroxolyn TAB*] 5 mg PO QAM 04/25/18 Tiotropium CAP.INH* [Spiriva CAP.INH*] 1 cap.inh INH DAILY 04/25/18 Allopurinol TAB* [Zyloprim 100 MG TAB*] 100 mg PO DAILY #30 tab 05/04/18 Insulin LISPRO* [HumaLOG*] 0 units SUBCUT AC #0 05/04/18 oxyCODONE/Acetamin 5/325 MG* [Percocet 5/325 TAB*] 1 tab PO Q4H PRN #30 tab MDD 6 tabs 05/04/18 Aspirin EC TAB* [Ecotrin EC Low Dose 81 MG*] 81 mg PO DAILY 07/04/18 Atorvastatin* [Lipitor 20 MG*] 20 mg PO BEDTIME 07/04/18 Carvedilol TAB* [Coreg TAB*] 3.125 mg PO BID 07/04/18 Chlorhexidine/Glycerin/He-Cell [Lubricating Jelly] 1 gel TOPICAL QID 07/04/18 Loperamide HCl [Imodium A-D] 4 mg PO DAILY PRN 07/04/18 Nitroglycerin TAB 0.4 MG* 0.4 mg SL Q5M PRN 07/04/18 Oxybutynin XL TAB* [Ditropan XL TAB*] 5 mg PO DAILY 07/04/18 hydrALAZINE TAB* [Apresoline TAB*] 10 mg PO QID 07/04/18 Bumetanide TAB* [Bumex 2 MG TAB*] 2 mg PO DAILY #30 tab 07/10/18 Vital Signs - 8 hr 03/08/19 19:27 Temperature 37.2 C Pulse Rate 109 Respiratory 24 Rate Blood Pressure 188/89 (mmHg) O2 Sat by Pulse 99 Oximetry Oxygen Devices in Use Now: Nasal Cannula Appearance: chronically ill appearing Eyes: No Scleral Icterus Ears/Nose/Mouth/Throat: Clear Oropharnyx Neck: NL Appearance and Movements; NL JVP, No Thyroid Enlargement, Masses Respiratory: Symmetrical Chest Expansion and Respiratory Effort, Clear to Auscultation Cardiovascular: NL Sounds; No Murmurs; No JVD, - - tachy, irregular, RLE 1+ edema at ankle, LLE 1+ edema at stump Abdominal: NL Sounds; No Tenderness; No Distention, No Hepatosplenomegaly Lymphatic: No Cervical Adenopathy Extremities: No Clubbing, Cyanosis Skin: - - ill-defined area of pink erythema RT winston and calf, two 2cm superficial ulcers, one white area of devitalized skin lateral RT heel Neurological: Alert and Oriented x 3 Lines/Tubes/Other Access: Clean, Dry and Intact Peripheral IV Nutrition: Taking PO's Result Diagrams: 03/09/19 05:50 03/09/19 05:40 Additional Lab and Data: Laboratory Tests 03/08/19 03/08/19 03/08/19 23:17 23:17 23:18 Retic Count, Calc 1.9 H Corrected Retic Count 0.9 INR (Anticoag Therapy) 0.95 Glucose Iron TIBC % Saturation Ferritin Alkaline Phosphatase Lactate Dehydrogenase Troponin I C-Reactive Protein B-Natriuretic Peptide 1236 H Vitamin B12 03/08/19 23:18 Retic Count, Calc Corrected Retic Count INR (Anticoag Therapy) Glucose 384 H Iron < 17 L TIBC 298 % Saturation 6 L Ferritin 94.3 Alkaline Phosphatase 144 H Lactate Dehydrogenase 310 H Troponin I 0.08 H* C-Reactive Protein 81.98 H B-Natriuretic Peptide Vitamin B12 296 Microbiology and Other Data: blood cultures pending Diagnostic Imaging: CXR: cardiomegaly, pacemaker, no infiltrates EKG Data: 100% paced Assess/Plan/Problems-Billing Assessment: 58 year old with Type 1 diabetes, PVD, CHF, anemia, here with RLE cellulitis - Patient Problems (1) Acute on chronic systolic (congestive) heart failure Current Visit: Yes Status: Acute Priority: High Code(s): I50.23 - ACUTE ON CHRONIC SYSTOLIC (CONGESTIVE) HEART FAILURE SNOMED Code(s): 169597059 Comment: - Patient will be admitted to medicine, followed on telemetry - Patient's dyspnea may be due to anemia, vs CHF - Daily weights, I&Os - Creatinine is above baseline, so elected to start transfusion rather than diurese, may improve renal perfusion (2) Cellulitis Current Visit: Yes Status: Acute Priority: High Code(s): L03.90 - CELLULITIS, UNSPECIFIED SNOMED Code(s): 087741429 Comment: -DIfferential includes staph/strep cellulitis, vs diabetic polymicrobial infection, even osteomyelitis. -Started on levaquin IV due to multiple antibiotic allergies -Blood cultures may help guide, may need ID consult. (3) Hypokalemia Current Visit: Yes Status: Acute Priority: High Code(s): E87.6 - HYPOKALEMIA SNOMED Code(s): 91080036 Comment: -Potassium severely low, possibly due to diuretics, poor PO intake -Will replete and recheck. (4) LELIA (acute kidney injury) Current Visit: No Status: Acute Priority: High Code(s): N17.9 - ACUTE KIDNEY FAILURE, UNSPECIFIED SNOMED Code(s): 69159360 Comment: -Creatinine above baseline, may be pre-renal or ATN -Elected not to give IV fluids due to CHF, dyspnea -Holding diuretics -Will monitor. (5) DVT prophylaxis Current Visit: No Status: Acute Priority: Low Code(s): GLL1977 - SNOMED Code(s): 630844191 Comment: SQ heparin (6) Iron deficiency anemia Current Visit: Yes Status: Acute Priority: High Code(s): D50.9 - IRON DEFICIENCY ANEMIA, UNSPECIFIED SNOMED Code(s): 48972348 Comment: -Patient is symptomatic and HGB <7, will have transfusion 1 unit PRBC. -Today patient is iron deficient, but in past has had more complex picture. -May need hematology consult (7) Troponin level elevated Current Visit: Yes Status: Acute Priority: Medium Code(s): R74.8 - ABNORMAL LEVELS OF OTHER SERUM ENZYMES SNOMED Code(s): 734363485 Comment: -This may represent cardiac ischemia, or chronic elevation due to CKD -Will monitor on telemetry (8) Type 1 diabetes mellitus on insulin therapy Current Visit: Yes Status: Acute Priority: Medium Code(s): E10.9 - TYPE 1 DIABETES MELLITUS WITHOUT COMPLICATIONS SNOMED Code(s): 31235303 Comment: -Glucose quite high on admission, but no DKA present -Patient insists she can manage with insulin pump -May need endocrine consult to adjust pump settings. Status and Disposition: inpatient
[2019-03-09] MEDS ORDERED: Acetaminophen TAB* 325 MG PO PRN (01:12)
[2019-03-09 01:36] LABS: LDH 310 U/L (140-271); Total Iron Binding Capacity 298 mcg/dL (250-450); Transferrin 213 mg/dL (203-362)
[2019-03-09 01:40] LABS: % Iron Saturation 6 % (15-55); Iron < 17 ug/dL (50-212)
[2019-03-09 01:57] LABS: Ferritin 94.3 ng/mL (11-307)
[2019-03-09 02:02] LABS: Corrected Retic Count 0.9 % (0.5-1.5); Hematocrit for Retic CNT 22 % (35-47); RBC Retic Count 2.72 10^6/uL (3.70-4.87)
[2019-03-09] MEDS ORDERED: Levofloxacin 500 MG IVPREMIX(* 500 MG/100 ML BAG IVPB ONE (02:18)
[2019-03-09] MEDS ORDERED: Nitroglycerin TAB 0.4 MG* 0.4 MG TAB SL PRN (02:20)
[2019-03-09] MEDS ORDERED: Albuterol/Ipratropium NEB.SOL* Albuterol 2.5 MG/Ipratropium 0.5 MG 3 ML INH PRN (02:20)
[2019-03-09] MEDS ORDERED: Morphine 4 MG/ML VIAL (1 ml) 4 MG/ML VIAL IV PRN (02:22)
[2019-03-09 03:34] LABS: Troponin I 0.08 ng/mL (<0.04)
[2019-03-09] MEDS ORDERED: Heparin VIAL(*) 5000 UNITS/ML VIAL (FIVE THOUSAND) SUBCUT SCH (06:00)
[2019-03-09 06:02] LABS: ABS Basophils 0.1 10^3/ul (0-0.2); ABS Eosinophils 0.2 10^3/ul (0-0.6); ABS Lymphocytes 0.9 10^3/ul (1.0-4.8); ABS Monocytes 0.7 10^3/ul (0-0.8); ABS Neutrophils 12.2 10^3/ul (1.5-7.7); Eosinophil % 1.7 %; Hematocrit 22 % (35-47); Lymphocyte % 6.1 %; Mean Corpuscular HGB Conc 31 g/dL (31-36); Mean Corpuscular Hemoglobin 26 pg (27-31); Mean Corpuscular Volume 81 fL (80-97); Mean Platelet Volume 8.9 fL (7.4-10.4); Nucleated Red Blood Cells % 0.1; Platelet Count 521 10^3/uL (150-450); Red Blood Count 2.75 10^6 /uL (3.70-4.87); Red Cell Distribution Width 19 % (10.5-15); White Blood Count 14.1 10^3/uL (3.5-10.8)
[2019-03-09 06:24] LABS: Troponin I 0.07 ng/mL (<0.04)
[2019-03-09 06:25] LABS: Anion Gap 12 mmol/L (2-11); CO2 Carbon Dioxide 16 mmol/L (22-32); Calcium 7.9 mg/dL (8.6-10.3); Chloride 103 mmol/L (101-111); Potassium 3.1 mmol/L (3.5-5.0); Sodium 131 mmol/L (135-145)
[2019-03-09 06:31] LABS: BUN/Creatinine Ratio 15.5 (8-20); Blood Urea Nitrogen 42 mg/dL (6-24); EGFR African American 21.9 (>60); EGFR Non-African American 18.1 (>60); Glucose 337 mg/dL (70-100)
[2019-03-09] MEDS ORDERED: KCL 20 MEQ/100 ML IVPREMIX* 20 MEQ/100 ML BAG IV SCH (07:00)
[2019-03-09] MEDS: Potassium Chloride* LIQUID 20 MEQ/15 ML UDC PO ONE ×2 (07:25→07:34)
[2019-03-09 08:10] VITALS: BP 120/60
[2019-03-09] MEDS ORDERED: Tiotropium CAP.INH* CAP.INH/18 MCG (USE ORDER SET !) INH SCH (09:00)
[2019-03-09] MEDS ORDERED: hydrALAZINE TAB* 10 MG PO SCH (09:00)
[2019-03-09] MEDS ORDERED: Aspirin EC TAB* 81 MG TAB.EC PO SCH (09:00)
[2019-03-09] MEDS ORDERED: Carvedilol TAB* 3.125 MG PO SCH (09:00)
[2019-03-09] MEDS ORDERED: Spiriva Inhaler DEVICE* 1 EACH DEVICE INH ONE (09:00)
[2019-03-09] MEDS ORDERED: Mometasone/Formoter 100/5 MDI INH SCH (09:00)
[2019-03-09] MEDS ORDERED: Allopurinol TAB* 100 MG PO SCH (09:00)
[2019-03-09] MEDS ORDERED: Oxybutynin XL TAB* 5 MG PO SCH (09:00)
[2019-03-09] MEDS ORDERED: Iron Sucrose* 200 MG in NS 0.9% 100 ML* 100 ML IVPB ONE (09:00)
[2019-03-09 10:55] LABS: Troponin I 0.08 ng/mL (<0.04)
[2019-03-09] MEDS ORDERED: Atorvastatin* 20 MG TAB PO SCH (21:00)
[2019-03-09] MEDS ORDERED: Pramipexole TAB* 0.5 MG PO SCH (21:00)
--- NOTE | 2019-03-10 02:16 | DS ---
CC: Dr. León; Dr. Cutler DISCHARGE SUMMARY: DATE OF ADMISSION: 03/09/19 DATE OF DISCHARGE: Against medical advice, 03/09/19. PRIMARY CARE PROVIDER: Dr. León. DISCHARGE DIAGNOSES: 1. Severe iron deficiency anemia. 2. Hypokalemia. 3. Acute on chronic systolic congestive heart failure. 4. Acute on chronic renal failure. SECONDARY DIAGNOSES: 1. Coronary artery disease. 2. Hypertension. 3. Hyperlipidemia. 4. Subclavian steal syndrome, status post stent. 5. Chronic obstructive pulmonary disease. 6. Cerebrovascular accident. 7. Diabetic peripheral neuropathy. 8. Restless leg syndrome. 9. Chronic kidney disease, stage 3. 10. Type 1 diabetes. 11. Status post appendectomy. 12. Status post cholecystectomy. 13. Status post CABG. 14. Status post lumbar laminectomy. 15. Status post pacemaker. MEDICATION LIST: 1. Acetaminophen 650 mg p.o. q.4 hours p.r.n. pain and fever. 2. Alprazolam 0.25 mg p.o. q.8 hours p.r.n. anxiety. 3. Aspirin 81 mg p.o. daily. 4. Budesonide 0.5 mg inhaled b.i.d. 5. Bumetanide 6 mg p.o. daily. 6. Carvedilol 3.125 mg p.o. b.i.d. 7. Colchicine 0.3 mg p.o. daily as needed for gout. 8. Furosemide 20 mg p.o. daily. 9. Gabapentin 600 mg p.o. q.a.m. and 1200 mg p.o. at bedtime. 10. Heparin flush to port per protocol. 11. Lispro 10 units subcutaneously before meals. 12. Ipratropium albuterol nebulized 3 mL inhaled q.4 hours p.r.n. shortness of breath. 13. Loperamide 4 mg p.o. daily as needed for diarrhea. 14. Nitroglycerin 0.4 mg sublingual q.5 minutes p.r.n. chest pain. 15. Pramipexole 0.5 mg p.o. at bedtime. 16. Prochlorperazine 10 mg p.o. q.6 hours p.r.n. nausea. 17. Sertraline 50 mg p.o. daily. New medications: 1. Cyanocobalamin 1000 mcg p.o. daily. 2. Ferrous sulfate 325 mg p.o. daily. HOSPITAL COURSE: Ms. Galarza is a 58-year-old lady with past medical history as stated above, that presented to the emergency room with complaints of shortness of breath and lower extremity edema. For more details about this presentation, I refer you to her history and physical by Dr. Bernard Bonilla. Around 8 a.m., I was called by the patient's nurse Tati Muniz, stating that the patient wanted to leave the hospital against medical advice. I went to see her at bedside and the patient stated that she was feeling better and did not want stay in the hospital any longer. We talked about her diagnosis especially her anemia. She does have some signs of CHF decompensation, but I think her worsening anemia is driving her symptoms at this time. The patient declined blood transfusion, and initially she was agreeable with an iron infusion but later on declined that also. She was found to have a hemoglobin of 6.7 with a hematocrit of 22. Her anemia workup included an iron less than 17 with a ferritin of 94, transferrin of 213, B12 of 296, and a folate of 10. I believe she has iron deficiency anemia and her ferritin is within normal limits due to her anemia of chronic disease, but I believe she has now developed iron deficiency and her vitamin B12 is also borderline. A methylmalonic acid level is pending at the time of this dictation. I have reviewed the risks and benefits of her refusal of blood transfusion and iron infusion. The patient understands the risks and she actually appears to be more hospice minded at this point. It is my understanding that she was discharged from hospice because she had improved, but I believe her condition will continue to decline and she will probably qualify for hospice again. We talked about her worsening renal function. She declines workup and states that she has talked to her PCP in the past and she is not interested in dialysis. She is interested in continuing diuretics, and I do see in Dr. León 's note that the combination of furosemide and Bumex was not very effective in the past, but she also had issues with dehydration with metolazone in the past. We talked about trying metolazone followed by IV furosemide to try and give her a boost in her diuresis, but the patient is not interested to stay in the hospital any longer. There was also concern of possible cellulitis on her right lower extremity. She tells me that her infection has improved as she had recently completed antibiotics as outpatient. Infectious Disease specialist Dr. Damon also is familiar with the patient from the outpatient setting and thinks that her leg looks improved and it does not seem there is indication for antibiotics at this point. After a long conversation with the patient, I answered all of her questions and it is my determination that she has capacity to sign out against medical advice , although I do not agree with her decision. Her goal seems to be more comfort at this time, and she is not interested in any aggressive or invasive measures. I did contact her medical case worker from [facility], Nida Phoenix, and she will schedule an appointment for her to see Dr. Cutler as outpatient. I did talk to Dr. Cutler and he is willing to see her next week, but because transportation needs to be arranged, Nida Phoenix will take care of it. The patient will be discharged against medical advice. PHYSICAL EXAMINATION: Vital Signs: Temperature 98.9, heart rate 72, respiratory rate is 20, oxygen saturation is 96% on 2 L nasal cannula, blood pressure is 128/60. General: The patient is a pleasant middle aged lady, sitting up in bed, in no acute distress. CVS: Normal S1 and S2. Regular rate and rhythm. Chest: Breath sounds bilaterally diminished at the bases. Extremities: Bilateral lower extremity edema. The patient is status post left BKA and has edema of the right lower extremity, but no significant erythema. Neuro: She is alert and oriented x3. Able to move all 4 extremities. DIET: Heart healthy consistent carb diet. ACTIVITIES: As tolerated. DISPOSITION: To home against medical advice. STATUS WHILE IN THE HOSPITAL: Inpatient. CONDITION: Guarded. Please keep in mind this is a summarized version of this patient's hospital stay. If you need more information, please feel free to call me at [phone] or please obtain the full medical records. TIME SPENT: Approximately 45 minutes was spent to complete this discharge. [id number]/CPS #: [id number] MTDD
[2019-03-10] MEDS ORDERED: Levofloxacin 250 MG IVPREMX(*) 250 MG/50 ML BAG IVPB SCH (09:00)
== END 2019-03-09 11:00 | disposition left against medical advice (07) | DRG 811 ==
LOC: ED 19:24 → MEDTELE 03-09 00:59
PROVIDERS: ADMIT Internal Medicine; ATTEND Internal Medicine
DX: D50.9 Iron deficiency anemia, unspecified (principal); I50.23 Acute on chronic systolic (congestive) heart failure; I13.0 Hypertensive heart and chronic kidney disease with heart failure and stage 1 through stage 4 chronic kidney disease, or unspecified chronic kidney disease; L03.115 Cellulitis of right lower limb; N17.9 Acute kidney failure, unspecified; I25.10 Atherosclerotic heart disease of native coronary artery without angina pectoris; E78.00 Pure hypercholesterolemia, unspecified; E78.5 Hyperlipidemia, unspecified; J44.9 Chronic obstructive pulmonary disease, unspecified; G47.30 Sleep apnea, unspecified; M19.90 Unspecified osteoarthritis, unspecified site; M79.7 Fibromyalgia; M41.9 Scoliosis, unspecified; G25.81 Restless legs syndrome; G43.909 Migraine, unspecified, not intractable, without status migrainosus; F41.9 Anxiety disorder, unspecified; F32.9 Major depressive disorder, single episode, unspecified; E87.6 Hypokalemia; G89.29 Other chronic pain; I25.5 Ischemic cardiomyopathy; N18.3 Chronic kidney disease, stage 3 (moderate); E10.22 Type 1 diabetes mellitus with diabetic chronic kidney disease; E10.42 Type 1 diabetes mellitus with diabetic polyneuropathy; E10.36 Type 1 diabetes mellitus with diabetic cataract; E10.51 Type 1 diabetes mellitus with diabetic peripheral angiopathy without gangrene; D63.1 Anemia in chronic kidney disease; R74.8 Abnormal levels of other serum enzymes; Z95.1 Presence of aortocoronary bypass graft; Z79.82 Long term (current) use of aspirin; Z79.01 Long term (current) use of anticoagulants; I25.2 Old myocardial infarction; Z89.612 Acquired absence of left leg above knee; Z88.1 Allergy status to other antibiotic agents; Z88.2 Allergy status to sulfonamides; Z88.0 Allergy status to penicillin; Z86.73 Personal history of transient ischemic attack (TIA), and cerebral infarction without residual deficits; Z86.711 Personal history of pulmonary embolism; Z95.5 Presence of coronary angioplasty implant and graft; Z90.49 Acquired absence of other specified parts of digestive tract; Z98.1 Arthrodesis status; Z86.14 Personal history of Methicillin resistant Staphylococcus aureus infection; Z90.89 Acquired absence of other organs; Z87.891 Personal history of nicotine dependence; Z91.030 Bee allergy status; Z95.810 Presence of automatic (implantable) cardiac defibrillator
CPT/HCPCS: 36415; 71046; 80048; 80053; 82607; 82728; 82746; 82803; 83010; 83540; 83550; 83605; 83615; 83735; 83880; 83921; 84484; 85025; 85045; 85610; 86140; 86850; 86900; 86901; 86922; 87040; 93005; 99284; A9270-GY; J1642; J1644; J1756; J1956; J2270; J3480

== ENCOUNTER 2019-04-24 15:40 | Inpatient (IN) | payer MEDICARE, MEDICAID ==
[2019-04-24 17:41] LABS: ABS Basophils 0.2 10^3/ul (0-0.2); ABS Eosinophils 0.1 10^3/ul (0-0.6); ABS Lymphocytes 0.9 10^3/ul (1.0-4.8); ABS Monocytes 0.8 10^3/ul (0-0.8); ABS Neutrophils 12.1 10^3/ul (1.5-7.7); Eosinophil % 0.9 %; Hematocrit 33 % (35-47); Hemoglobin 9.7 g/dL (12.0-16.0); Lymphocyte % 6.6 %; Mean Corpuscular HGB Conc 30 g/dL (31-36); Mean Corpuscular Hemoglobin 23 pg (27-31); Mean Corpuscular Volume 76 fL (80-97); Mean Platelet Volume 8.7 fL (7.4-10.4); Nucleated Red Blood Cells % 0.3; Platelet Count 433 10^3/uL (150-450); Red Blood Count 4.28 10^6 /uL (3.70-4.87); Red Cell Distribution Width 22 % (10-15); White Blood Count 14.2 10^3/uL (3.5-10.8)
[2019-04-24 17:45] LABS: INR 1.12 (0.82-1.09)
[2019-04-24 17:59] LABS: ALT 7 U/L (7-52); AST 10 U/L (13-39); Albumin 2.5 g/dL (3.2-5.2); Albumin/Globulin Ratio 0.8 (1-3); Alkaline Phosphatase 253 U/L (34-104); Anion Gap 6 mmol/L (2-11); BUN/Creatinine Ratio 16.2 (8-20); Blood Urea Nitrogen 36 mg/dL (6-24); C Reactive Protein 50.47 mg/L (<8.01); CO2 Carbon Dioxide 29 mmol/L (22-32); Calcium 8.5 mg/dL (8.6-10.3); Chloride 95 mmol/L (101-111); EGFR African American 27.5 (>60); EGFR Non-African American 22.7 (>60); Globulin 3.1 g/dL (2-4); Glucose 484 mg/dL (70-100); Potassium 4.7 mmol/L (3.5-5.0); Sodium 130 mmol/L (135-145); Total Protein 5.6 g/dL (6.4-8.9)
[2019-04-24 18:01] LABS: Troponin I 0.29 ng/mL (<0.04)
[2019-04-24 19:24] LABS: Urine Appearance Clear; Urine Bacteria 1+ (Absent); Urine Bilirubin Negative (Negative); Urine Blood 1+ (Negative); Urine Color Yellow; Urine Glucose 3+(>=500 mg/dL) (Negative); Urine Ketones Negative (Negative); Urine Nitrite Negative (Negative); Urine Protein 2+(100 mg/dL) (Negative); Urine Red Blood Cell 1+(3-5/hpf) (Absent); Urine Specific Gravity 1.012 (1.010-1.030); Urine Urobilinogen Negative (Negative); Urine White Blood Cell 3+(>20/hpf) (Absent)
[2019-04-24] MEDS ORDERED: oxyCODONE TAB* 5 MG TAB PO ONE (19:41)
[2019-04-24] MEDS ORDERED: Ondansetron ODT TAB* 4 MG PO ONE (19:42)
--- NOTE | 2019-04-24 19:49 | ED ---
Complex/Multi-Sys Presentation - HPI Summary HPI Summary: Patient complains of diabetic ulcer in calf of right leg 1.5 months, Mckeon catheter not draining urine, increasing SOB and peripheral edema 2 months. Patient states maggots and burning to wound on right calf starting today. Wound is usually seen by wound care every week, last visit 2 weeks ago. Patient seen by home health care nurse at home today, and sent patient to the ED due to discovery of maggots in wound. Patient currently has Mckeon catheter as she is receiving Lasix infusions twice a week to help drain off peripheral edema and improve exertional SOB and her orthopnea. Denies fever, cough, sore throat, CP, N/V/D, abdominal pain, change in BM. Medical history is DM, anemia , CK D, HDL, HTN, COPD, CHF. Primary care Dr. León. Patient states she was sent to hospice, and then recovered and is currently living at home with her . States pacemaker was not reactivated after released from hospice 6 months ago. Positive smoker. Also states she has not used her insulin pump as it will not stay in her bloated abdomen. Has been using insulin pens, last use yesterday (wednesday) a.m. - History Of Current Complaint Chief Complaint: EDExtremityLower Time Seen by Provider: 04/24/19 15:58 Hx Obtained From: Patient Onset/Duration: Gradual Onset, Lasting Weeks Severity Currently: Moderate Severity Initially: Moderate Character: Sharp - Allergies/Home Medications Allergies/Adverse Reactions: Allergies Allergy/AdvReac Type Severity Reaction Status Date / Time bee venom protein (honey bee) Allergy Anaphylatic Verified 04/24/19 16:27 Shock Cephalosporins Allergy Shortness Verified 04/24/19 16:27 of Breath diphenhydramine Allergy Difficulty Verified 04/24/19 16:27 [From Benadryl] Breathing Penicillins Allergy Hives Verified 04/24/19 16:27 Sulfa (Sulfonamide Allergy Hives Verified 04/24/19 16:27 Antibiotics) codeine AdvReac GI Upset Verified 04/24/19 16:27 PMH/Surg Hx/FS Hx/Imm Hx Endocrine/Hematology History: Reports: Hx Anticoagulant Therapy, Hx Blood Transfusions, Hx Diabetes, Hx Thyroid Disease - Goiter, Hx Anemia, Other Endocrine/Hematological Disorders - anemia Denies: Hx Systemic Lupus Erythematosus Cardiovascular History: Reports: Hx Angioplasty, Hx Auto Implanted Cardiovert Defib, Hx Cardiac Arrest, Hx Congestive Heart Failure, Hx Coronary Artery Disease, Hx Hypercholesterolemia, Hx Hypertension, Hx Myocardial Infarction, Hx Pacemaker/ICD, Hx Peripheral Vascular Disease, Hx Valvular Heart Disease, Other Cardiovascular Problems/Disorders - triple bypass in [place], hyperlipidemia, ICD, carotid endarterectomy Denies: Hx Angina Respiratory History: Reports: Hx Asthma, Hx Chronic Bronchitis, Hx Chronic Obstructive Pulmonary Disease (COPD), Hx Pneumonia, Hx Pulmonary Edema, Hx Pulmonary Embolism, Hx Seasonal Allergies, Hx Sleep Apnea, Other Respiratory Problems/Disorders - respiratory failure, uses home oxygen GI History: Reports: Hx Gall Bladder Disease Denies: Hx Ulcer, Other GI Disorders History: Reports: Hx Chronic Renal Failure, Other Problems/Disorders - recent UTI Denies: Hx Dialysis, Hx Renal Disease Musculoskeletal History: Reports: Hx Arthritis, Hx Back Problems, Hx Fibromyalgia, Hx Scoliosis, Other Musculoskeletal History - left below knee amputation, restless leg syndrome, osteomyelitis Denies: Hx Rheumatoid Arthritis, Hx Osteoporosis Sensory History: Reports: Hx Cataracts - no surgery needed yet, Hx Contacts or Glasses, Hx Vision Problem, Hx Hearing Problem - R ear numbness and decreased hearing r/t TIA per pt Denies: Hx Deafness, Hx Hearing Aid Opthamlomology History: Reports: Hx Cataracts - no surgery needed yet, Hx Contacts or Glasses, Hx Vision Problem Neurological History: Reports: Hx Migraine, Hx Nerve Disease - Diabetic Peripheral Neuropathy, Hx Seizures - reports last one 30 yrs ago, Hx Transient Ischemic Attacks (TIA), Other Neuro Impairments/Disorders - peripheral neuropathy Denies: Hx Dementia Psychiatric History: Reports: Hx Anxiety, Hx Depression Denies: Hx Panic Disorder - Cancer History Hx Chemotherapy: No - Surgical History Surgery Procedure, Year, and Place: CARDIAC STENTS(4 PROMUS AND 1 VISIPRO PLACED AT [facility] [place]-1.5T ONLY DUE TO CONDITIONAL STATUS OF MAX SPAT. GRAD. 720), TRIPLE BYPASS, BILATERAL CAROTID ENDARTERECTOMY ,LAP ADDY,HYSTERECTOMY,LEFT GREAT TOE AMPUTATION,APPY, T&A ,STERNAL WIRES ,LUMBAR SPINE FUSION,CSP FUSION , C SECTION,BACK SURGERY-LASER SURGERY. defib,[place], left below knee amputation jul 2017 Hx Anesthesia Reactions: No - Immunization History Date of Tetanus Vaccine: 2015 Date of Influenza Vaccine: 2015 Infectious Disease History: Yes Infectious Disease History: Reports: Hx Clostridium Difficile, Hx of Known/ Suspected MRSA Denies: Hx Hepatitis, Hx Human Immunodeficiency Virus (HIV), Hx Shingles, Hx Tuberculosis, Hx Known/Suspected VRE, Hx Known/Suspected VRSA, History Other Infectious Disease, Traveled Outside the [place] in Last 30 Days - Family History Known Family History: Positive: Unknown - Pt is adopted and does not know her FHx - Social History Alcohol Use: None Hx Substance Use: No Substance Use Type: Reports: None Hx Tobacco Use: Yes Smoking Status (MU): Current Every Day Smoker Type: Cigarettes Amount Used/How Often: 5 cig/day Length of Time of Smoking/Using Tobacco: 30 years Have You Smoked in the Last Year: Yes Review of Systems Constitutional: Negative Eyes: Negative ENT: Negative Cardiovascular: Negative Positive: Shortness Of Breath Gastrointestinal: Negative Genitourinary: Other Musculoskeletal: Negative Skin: Other Neurological: Negative Psychological: Normal All Other Systems Reviewed And Are Negative: Yes Physical Exam - Summary Physical Exam Summary: 7 cm x 7 cm diabetic ulcer to right calf with maggots present. No purulent drainage noted. . Mild localized erythema. PMS intact distally. Very mild Rales noted on auscultation and lower lobes. No wheezing. Regular rate and rhythm. Abdomen bloated but nontender. Pitting edema to bilateral lower extremities. Triage Information Reviewed: Yes Vital Signs On Initial Exam: Initial Vitals Temp Pulse Resp BP Pulse Ox 98.2 F 93 19 146/71 95 04/24/19 15:44 04/24/19 15:44 04/24/19 15:44 04/24/19 15:44 04/24/19 15:44 Vital Signs Reviewed: Yes Appearance: Positive: Well-Appearing Skin: Positive: Warm Head/Face: Positive: Normal Head/Face Inspection Eyes: Positive: Normal Neck: Positive: Supple Respiratory/Lung Sounds: Positive: Clear to Auscultation Cardiovascular: Positive: Normal Abdomen Description: Positive: Nontender Musculoskeletal: Positive: Normal Neurological: Positive: Normal Psychiatric: Positive: Normal AVPU Assessment: Alert - Lea Coma Scale Best Eye Response: 4 - Spontaneous Best Motor Response: 6 - Obeys Commands Best Verbal Response: 5 - Oriented Coma Scale Total: 15 Diagnostics - Vital Signs Vital Signs Temp Pulse Resp BP Pulse Ox 04/24/19 19:29 20 140/75 04/24/19 19:00 89 101 94 04/24/19 18:59 85 20 149/78 93 04/24/19 18:29 89 156/94 100 04/24/19 18:00 83 100 04/24/19 17:00 93 94 04/24/19 16:51 91 88 04/24/19 15:44 98.2 F 93 19 146/71 95 - Laboratory Lab Results: Lab Results 04/24/19 04/24/19 04/24/19 Range/Units 17:32 17:32 17:32 WBC 14.2 H (3.5-10.8) 10^3/uL RBC 4.28 (3.70-4.87) 10^6 /uL Hgb 9.7 L (12.0-16.0) g/dL Hct 33 L (35-47) % MCV 76 L (80-97) fL MCH 23 L (27-31) pg MCHC 30 L (31-36) g/dL RDW 22 H (10-15) % Plt Count 433 (150-450) 10^3/uL MPV 8.7 (7.4-10.4) fL Neut % (Auto) 85.6 % Lymph % (Auto) 6.6 % [place] % (Auto) 5.6 % Eos % (Auto) 0.9 % Baso % (Auto) 1.3 % Absolute Neuts (auto) 12.1 H (1.5-7.7) 10^3/ul Absolute Lymphs (auto) 0.9 L (1.0-4.8) 10^3/ul Absolute Monos (auto) 0.8 (0-0.8) 10^3/ul Absolute Eos (auto) 0.1 (0-0.6) 10^3/ul Absolute Basos (auto) 0.2 (0-0.2) 10^3/ul Absolute Nucleated RBC 0.0 10^3/ul Nucleated RBC % 0.3 INR (Anticoag Therapy) 1.12 H (0.82-1.09) Sodium 130 L (135-145) mmol/L Potassium 4.7 (3.5-5.0) mmol/L Chloride 95 L (101-111) mmol/L Carbon Dioxide 29 (22-32) mmol/L Anion Gap 6 (2-11) mmol/L BUN 36 H (6-24) mg/dL Creatinine 2.22 H (0.51-0.95) mg/dL Est GFR ( Amer) 27.5 (>60) Est GFR (Non-Af Amer) 22.7 (>60) BUN/Creatinine Ratio 16.2 (8-20) Glucose 484 H (70-100) mg/dL Lactic Acid (0.5-2.0) mmol/L Calcium 8.5 L (8.6-10.3) mg/dL Total Bilirubin 0.60 (0.2-1.0) mg/dL AST 10 L (13-39) U/L ALT 7 (7-52) U/L Alkaline Phosphatase 253 H (34-104) U/L Troponin I 0.29 H* (<0.04) ng/mL C-Reactive Protein 50.47 H (<8.01) mg/L B-Natriuretic Peptide (<=100) pg/mL Total Protein 5.6 L (6.4-8.9) g/dL Albumin 2.5 L (3.2-5.2) g/dL Globulin 3.1 (2-4) g/dL Albumin/Globulin Ratio 0.8 L (1-3) Urine Color Urine Appearance Urine pH (5-9) Ur Specific [place] (1.010-1.030) Urine Protein (Negative) Urine Ketones (Negative) Urine Blood (Negative) Urine Nitrate (Negative) Urine Bilirubin (Negative) Urine Urobilinogen (Negative) Ur Leukocyte Esterase (Negative) Urine WBC (Auto) (Absent) Urine RBC (Auto) (Absent) Urine Bacteria (Absent) Urine Glucose (Negative) 04/24/19 04/24/19 04/24/19 Range/Units 17:32 17:32 18:25 WBC (3.5-10.8) 10^3/uL RBC (3.70-4.87) 10^6 /uL Hgb (12.0-16.0) g/dL Hct (35-47) % MCV (80-97) fL MCH (27-31) pg MCHC (31-36) g/dL RDW (10-15) % Plt Count (150-450) 10^3/uL MPV (7.4-10.4) fL Neut % (Auto) % Lymph % (Auto) % [place] % (Auto) % Eos % (Auto) % Baso % (Auto) % Absolute Neuts (auto) (1.5-7.7) 10^3/ul Absolute Lymphs (auto) (1.0-4.8) 10^3/ul Absolute Monos (auto) (0-0.8) 10^3/ul Absolute Eos (auto) (0-0.6) 10^3/ul Absolute Basos (auto) (0-0.2) 10^3/ul Absolute Nucleated RBC 10^3/ul Nucleated RBC % INR (Anticoag Therapy) (0.82-1.09) Sodium (135-145) mmol/L Potassium (3.5-5.0) mmol/L Chloride (101-111) mmol/L Carbon Dioxide (22-32) mmol/L Anion Gap (2-11) mmol/L BUN (6-24) mg/dL Creatinine (0.51-0.95) mg/dL Est GFR ( Amer) (>60) Est GFR (Non-Af Amer) (>60) BUN/Creatinine Ratio (8-20) Glucose (70-100) mg/dL Lactic Acid 1.2 (0.5-2.0) mmol/L Calcium (8.6-10.3) mg/dL Total Bilirubin (0.2-1.0) mg/dL AST (13-39) U/L ALT (7-52) U/L Alkaline Phosphatase (34-104) U/L Troponin I (<0.04) ng/mL C-Reactive Protein (<8.01) mg/L B-Natriuretic Peptide > 1300 H (<=100) pg/mL Total Protein (6.4-8.9) g/dL Albumin (3.2-5.2) g/dL Globulin (2-4) g/dL Albumin/Globulin Ratio (1-3) Urine Color Yellow Urine Appearance Clear Urine pH 6.0 (5-9) Ur Specific [place] 1.012 (1.010-1.030) Urine Protein 2+(100 mg/dl) A (Negative) Urine Ketones Negative (Negative) Urine Blood 1+ A (Negative) Urine Nitrate Negative (Negative) Urine Bilirubin Negative (Negative) Urine Urobilinogen Negative (Negative) Ur Leukocyte Esterase Negative (Negative) Urine WBC (Auto) 3+(>20/hpf) A (Absent) Urine RBC (Auto) 1+(3-5/hpf) A (Absent) Urine Bacteria 1+ A (Absent) Urine Glucose 3+(>=500 mg/dl) A (Negative) Result Diagrams: 04/24/19 17:32 04/24/19 17:32 Lab Statement: Any lab studies that have been ordered have been reviewed, and results considered in the medical decision making process. Complex Multi-Symp Course/Dx Course Of Treatment: Patient complains of diabetic ulcer in calf of right leg 1.5 months, Mckeon catheter not draining urine, increasing SOB and peripheral edema 2 months. Patient states maggots and burning to wound on right calf starting today. Wound is usually seen by wound care every week, last visit 2 weeks ago. Patient seen by home health care nurse at home today, and sent patient to the ED due to discovery of maggots in wound. Patient currently has [place] catheter as she is receiving Lasix infusions twice a week to help drain off peripheral edema and improve exertional SOB and her orthopnea. Denies fever , cough, sore throat, CP, N/V/D, abdominal pain, change in BM. Medical history is DM, anemia, CK D, HDL, HTN, COPD, CHF. Primary care Dr. León. Patient states she was sent to hospice, and then recovered and is currently living at home with her . States pacemaker was not reactivated after released from hospice 6 months ago. Positive smoker. Also states she has not used her insulin pump as it will not stay in her bloated abdomen. Has been using insulin pens, last use yesterday (wednesday) a.m. Patient O2 sats dropped to 85 on room air. Vital signs otherwise within normal limits. WBC 14.2 with history of same. Hemoglobin 9.7 with history of same. BGL 489. Troponin 0.29 , prior history of elevated troponins in range of 0.08. BNP 1300. EKG paced rhythm. Chest x-ray positive for mild pulmonary congestion. UA positive for UTI. Patient admitted to hospitalist for further evaluation and management. - Diagnoses Provider Diagnoses: Hypoxia, CHF (congestive heart failure), CKD (chronic kidney disease), COPD ( chronic obstructive pulmonary disease), Elevated troponin, Diabetic ulcer of calf, Hyperglycemia Discharge - Sign-Out/Discharge Documenting (check all that apply): Patient Departure Patient Received Moderate/Deep Sedation with Procedure: No - Discharge Plan Condition: Fair Disposition: ADMITTED TO [facility] Disposition and Condition Condition: FAIR Disposition: Admitted to [facility]
[2019-04-24] MEDS ORDERED: Dextrose 50% Syringe 50 ML* 25 GM/50 ML SYRINGE IV PUSH PRN ×2 (21:18→21:57)
[2019-04-24] MEDS ORDERED: Insulin LISPRO* 1 UNITS UNIT SUBCUT ONE (21:18)
[2019-04-24 21:28] LABS: Troponin I 0.26 ng/mL (<0.04)
[2019-04-24] MEDS ORDERED: Albuterol/Ipratropium NEB.SOL* Albuterol 2.5 MG/Ipratropium 0.5 MG 3 ML INH PRN (21:48)
[2019-04-24] MEDS ORDERED: Colchicine* 0.6 MG TAB PO PRN (21:48)
[2019-04-24] MEDS ORDERED: Loperamide CAP* 2 MG PO PRN (21:48)
[2019-04-24] MEDS ORDERED: Nitroglycerin TAB 0.4 MG* 0.4 MG TAB SL PRN (21:48)
[2019-04-24] MEDS ORDERED: Vancomycin per Pharmacy* NOTE FOLLOW UP SCH (22:00)
[2019-04-24] MEDS ORDERED: Vancomycin(*) 1,250 MG in NS 0.9% 250 ML* 250 ML IVPB ONE (22:30)
[2019-04-24] MEDS: Aztreonam (*) 1 GM in NS 0.9% 50 ML* 50 ML IVPB SCH (23:15)
[2019-04-24] MEDS ORDERED: oxyCODONE TAB* 5 MG TAB PO PRN (23:16)
[2019-04-24] MEDS: Morphine INJ* 2 MG/ML 1 ML SYRINGE (TWO MG - NEW SYRINGE VERSION) IV PRN (23:24)
[2019-04-25] MEDS: metroNIDAZOLE IV 250 MG/50ML* 50 ML IVPB SCH ×3 (00:02→15:43)
--- NOTE | 2019-04-25 03:47 | HP ---
CC: Dr. Matilde León * HISTORY AND PHYSICAL: DATE OF ADMISSION: 04/24/19 PRIMARY CARE PROVIDER: Dr. Matilde León. MY ATTENDING WHILE IN HOSPITAL: Dr. Siria Herrera.* (DICTATED BY OSCAR ERWIN) CHIEF COMPLAINT: Right lower extremity wound. HISTORY OF PRESENT ILLNESS: Ms. 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 The patient has been admitted to this institution numerous times, but most recently was here in March for heart failure exacerbation and severe anemia and left against medical advice without full treatment at that time. The patient at that time was markedly anemic, but the patient's hemoglobin responded without transfusion. The patient over the past several months is being treated oral Bumex and IV Lasix infused twice weekly at the infusion center, but had despite this gained what she claims to be 50 pounds in the last, slightly over a month. The patient denies chest pain , does have shortness of breath, and occasional dizziness at rest. The patient has been following the wound center for a wound on her right lower extremity without known provocation, which has been getting worse since early March, this being treated with Santyl and wound care. She does not think she has been on antibiotics for it, but she recently had an evaluation with Dr. Graham Zavala for her peripheral arterial disease and he believes that the patient's edema was contributing more to her poor wound healing than her peripheral arterial disease. The patient has been having 3 times weekly wound changes with the Nurse Services and she is doing wound changes herself on the other days with cleaning the wound with normal saline and covering it with gauze. The patient has been having since 3 days ago increasing pain in her leg. The patient does not have good sensation in her leg. She mainly only feels burning neuropathy, but this worsened over last several days. The patient also states that the appearance of her leg has been getting worse with new areas opening up and worsening redness. The patient today was referred to the emergency department due to maggots being noticed to be growing on her leg. The patient came into the emergency department, was found to have an elevated white blood cell count, glucose of 484, slightly elevated troponin, elevated CRP at 50.47. The patient in the emergency department had wound care with the maggots being cleaned off of her leg. The patient states that she has been keeping this leg elevated and that the swelling in the leg has significantly gone down, but that she has swelling everywhere else in her body including her arms, groin, and abdomen. The patient denies chest pain. The patient had the Mckeon catheter that was placed over a month ago for urinary retention. Due to concern for worsening of right lower extremity wound, the patient was admitted to the hospital. PAST MEDICAL HISTORY: Heart failure, reduced ejection fraction, most recent EF was from 2017 in our system and the EF was 35% to 40%, chronic kidney disease stage IV, coronary artery disease, status post CABG, carotid stenosis, status post stenting, peripheral artery disease, status post multiple stents, gastroparesis, hypertension, hyperlipidemia, COPD, history of CVA, diabetes mellitus type 1, peripheral neuropathy, right lower extremity wound. Gout. PAST SURGICAL HISTORY: Subclavian stent, cholecystectomy, CABG, lumbar laminectomy, pacemaker placement, left lower extremity [id number] amputation. MEDICATIONS: Per medication reconciliation. The patient does not know her own medications. 1. Gabapentin 1200 mg p.o. at bedtime. 2. Gabapentin 600 mg p.o. daily. 3. Pramipexole 0.5 mg p.o. at bedtime. 4. Tylenol 650 mg p.o. q.4 hours as needed. 5. Carvedilol 3.125 mg p.o. b.i.d. 6. Aspirin 81 mg p.o. daily. 7. Nitroglycerin 0.4 mg sublingual q.5 minutes as needed for chest pain. 8. Loperamide 4 mg p.o. daily as needed. 9. DuoNeb 3 mL inhalation q.4 hours as needed. 10. Colchicine 0.3 mg p.o. daily as needed. 11. Xanax 0.25 mg p.o. q.8 hours as needed. 12. Compazine 5 mg p.o. q.6 hours as needed. 13. Sertraline 50 mg p.o. daily. 14. Bumex 6 mg p.o. daily. 15. Cyanocobalamin 1000 mcg p.o. daily. 16. Heparin flush port 5 mL p.o. daily. 17. Insulin lispro 10 units subcutaneous a.c. 18. Vitamin B complex 1 mg p.o. daily. 19. Lasix IV 40 mg p.o. twice weekly. 20. Insulin glargine 20 units subcutaneous daily. ALLERGIES: CEPHALOSPORINS, PENICILLIN, SULFA ANTIBIOTICS, CODEINE, BENADRYL, BEE VENOM. FAMILY HISTORY: Unknown due to the patient's adopted status. SOCIAL HISTORY: The patient still smokes 5 cigarettes daily. The patient denies illicit drugs use or alcohol abuse. The patient used to work in [employer]. He is and has 2 grown children. The patient's surrogate decision maker would be her . REVIEW OF SYSTEMS: A 14-point review of systems was reviewed and was negative except as above in the HPI. PHYSICAL EXAMINATION GENERAL: The patient is a 59-year-old male who appears grossly edematous and is sitting in bed in no distress. VITAL SIGNS: At the time of evaluation, temperature 98.2, pulse rate 93, respiratory rate 20, oxygen saturation 94% on 2 L. HEENT: Head: Normocephalic, atraumatic. Sclerae anicteric. No conjunctival injection. Nasal mucosa moist. Oral mucosa moist. No pharyngeal erythema, discharge, or exudate. NECK: Supple, nontender. No lymphadenopathy. No carotid bruits auscultated. No JVD. RESPIRATORY: Diminished in the bilateral bases. No other wheezes or rhonchi. Good air exchange bilaterally. CARDIAC: Regular rate and rhythm. No clicks, murmurs, gallops, or rubs. Pulses trace in the right lower extremity, difficult to palpate in the left lower extremity due to edema. ABDOMEN: Soft, brawny changes of the skin due to edema, tender to palpation throughout without rebound or guarding. No hepatosplenomegaly. No abdominal bruits auscultated. GENITOURINARY: No suprapubic or CVA tenderness. There is Mckeon in place draining clear yellow urine. SKIN: Large punctate lesions with surrounding erythema and weeping of the right lower extremity, bruising of the bilateral upper extremities, anasarca. NEUROLOGIC: Cranial nerves II through XII intact except for esotropia of the left eye, severely decreased sensation in the right lower extremity. No neuropathy in the bilateral upper extremities. No other focal neurologic deficits. PSYCHIATRIC: Pleasant and cooperative. DIAGNOSTIC STUDIES/LAB DATA: White blood cell count 14.2, hemoglobin 9.7, platelet count 433. INR 1.12. Sodium 130, potassium 4.7, chloride 95, carbon dioxide 29, anion gap 6, BUN 36, creatinine 2.22, glucose 484, lactic acid is 1.2, calcium 8.5, bilirubin 0.6, AST 10, ALT 7, alkaline phosphatase 53. Troponin I is 0.29, repeat 0.26. CRP 50.47, BNP greater than 130, protein 5.6, albumin 2.5, globulin 3.1. Urine shows 2+ protein and 1+ blood, 3 plus white blood cells, 1 plus red blood cells, 1+ bacteria, and 3+ glucose. Studies: Chest x-ray shows significant interstitial edema with pulmonary vascular congestion possibly. No obvious infiltrates. EKG shows paced rhythm, left bundle- branch block pattern. No ST segment elevation or depression, obvious consistent with previous exam. ASSESSMENT AND PLAN: Ms. Galarza is a 59-year-old female with a past medical history significant for significant vasculopathy, heart failure, reduced ejection fraction, chronic kidney disease, and new right lower extremity wound that has been worsening for several months and presents today with maggots in her wound, significantly hyperglycemic with an elevated troponin with concern for heart failure exacerbation and wound infection. 1. Right lower extremity wound. The patient has been following in the wound clinic for this for approximately a month and a half. The patient's wound has been getting worse at this time. She is unable to tolerate Santyl therapy. She has been having some recent chills, but states that she never gets fevers. The patient has an elevated white blood cell count and elevated CRP, significantly increased pain to the wound as well as increased erythema and maggots growing in the wound. Due to this, we will start the patient on broad- spectrum antibiotics, get a wound culture, blood cultures. We will trend the patient's CPR. The patient was previously seen by Dr. Graham Zavala, who did not recommend revascularization at this time. We will attempt aggressively to control the patient's edema in order to help her wound heal. Wound Care consult will be obtained. 2. Heart failure, reduced ejection fraction. The patient has had over, per her report, 50 pounds of weight gain in the past month and a half, but the patient's reported weight is not much higher than her previous weight when she was admitted. The patient has been on furosemide 40 mg IV twice weekly and Bumex 6 mg p.o. daily. The patient has anasarca. The patient will have her furosemide dose increased at this time and metolazone added on, which had previously dehydrated her. However, she will be monitored closely in the hospital with strict Is and Os and daily weights. The patient has a Mckeon in place for monitoring. The patient is requiring oxygen at this time, likely related to congestive heart failure exacerbation. This is likely also the cause of the patient's elevated troponin, which is trending down and will not be trended this further. The patient will have a transthoracic echocardiogram to update her EF, which has not been done recently. The patient's kidney function will be monitored closely while she is undergoing intensive diuresis. 3. Chronic kidney disease. This is slightly improved from the patient's most recent admission. It is elevated from patient's baseline, but that appears from mid 2017 and the patient's kidney function may have deteriorated significantly since then. 4. The patient's kidney function is improved from when she was here in February. Continue patient's Mckeon. Avoid nephrotoxins. 5. Chronic obstructive pulmonary disease. Continue the patient's DuoNeb as needed. The patient is not in exacerbation at this time. 6. Hypertension. The patient is currently normotensive. Continue the patient' s carvedilol. Monitor the patient's blood pressure closely with intensive diuresis. 8. Diabetes mellitus type 1. The patient is markedly hyperglycemic, but this is consistent with the patient's previous admissions to the hospital. She has had very labile blood glucoses. This patient will have her home insulin dosing of glargine and Humalog schedule with meals as well as sliding scale insulin. We will update an A1c. The patient's insulin should be observed aggressively and the patient should watched closely for hypoglycemia as hopefully the patient 's infection improves and her insulin sensitivity goes up. 9. Coronary artery disease. The patient has an elevated troponin at this time. The patient has no ischemic changes on EKG. The patient has no chest pain. The patient's troponin is trending down. Echo will be checked. This is likely due to demand ischemia from congestive heart failure exacerbation. 10. Hyperlipidemia. The patient is not on a statin for unclear reasons. We will also add on a lipid profile for the morning to assess the patient's lipids. A statin may help with wound healing given her significant peripheral arterial disease. 11. Peripheral neuropathy. Continue the patient's gabapentin. 12. DVT prophylaxis. The patient is on heparin subcu. 13. FEN. The patient will have a consistent carbohydrate diet. The patient is fluid overloaded. TIME SPENT: Approximately 75 minutes spent on the admission of this patient, 30 of which was spent in [id number] with the patient obtaining history and physical and discussion of treatment plan. Plan was discussed with my attending, Dr. Siria Herrera; she is in agreement. OSCAR ERWIN [id number]/CPS #: [id number] MTDD
[2019-04-25] MEDS: Aztreonam (*) 1 GM in NS 0.9% 50 ML* 50 ML IVPB SCH ×3 (06:00→22:42)
[2019-04-25] MEDS: Insulin LISPRO* 1 UNITS UNIT SUBCUT SCH ×7 (07:58→22:19)
[2019-04-25] MEDS: Furosemide IV* 10 MG/ML VIAL (40 MG) IV SLOW PU SCH ×2 (08:10→17:27)
[2019-04-25] MEDS: Carvedilol TAB* 3.125 MG PO SCH ×2 (08:11→22:40)
[2019-04-25] MEDS: Sertraline* 50 MG TAB PO SCH (08:11)
[2019-04-25] MEDS: Aspirin EC TAB* 81 MG TAB.EC PO SCH (08:11)
[2019-04-25] MEDS: Heparin VIAL(*) 5000 UNITS/ML VIAL (FIVE THOUSAND) SUBCUT SCH ×2 (08:11→22:41)
[2019-04-25] MEDS: Metolazone TAB* 5 MG PO SCH (08:11)
[2019-04-25] MEDS: Cyanocobalamin TAB* 500 MCG PO SCH (08:12)
[2019-04-25] MEDS: Gabapentin CAP(*) 300 MG PO SCH (08:12)
[2019-04-25] MEDS: Vitamin B Complex TAB PO SCH (08:13)
[2019-04-25] MEDS: Morphine INJ* 2 MG/ML 1 ML SYRINGE (TWO MG - NEW SYRINGE VERSION) IV PRN ×3 (08:20→22:27)
[2019-04-25] MEDS ORDERED: Insulin GLARGINE(*) 1 UNITS UNIT SUBCUT SCH (09:00)
[2019-04-25] MEDS ORDERED: Perflutren Lipid Microsphere* 3 ML VIAL ONE (10:13)
[2019-04-25] MEDS: Ondansetron INJ* 2 MG/ML VIAL IV PRN (11:17)
--- NOTE | 2019-04-25 13:03 | CONSULT ---
Palliative / Hospice Consult Ordering Provider: Cole Larios - PCP-Mau Referal Reason: Goals of care discussion/aftercare - Subjective Code Status: DNR Advance Directives Location: Unable to Locate MOLST Part A Completed: Yes - completed with pt on chart MOLST Part E Completed:: Yes - completeed with pt on chart - History or Present Illness History or Present Illness: 59 yo with DM type 1 presents with weight gain and weakness. Visiting nurse noticed maggots in pt's wound and had her transported to the ER where she was admitted. PMH is significant for CKD stage 4, CAD s/p CABG, CHF EF 30-35%(8/) , carotid stenosis, peripheral vascular disease, hyperlipidemia, COPD, CVA, chronic ulcer, peripheral neuropathy and BKA L leg. Pt is with 2 grown children, retired from [employer], + tob, no etoh & no drugs. Studies CXR-interstitial and alveolar pulmonary edema, ekg-paced, Echo-EF 35-40% but limited study couldn't see valves well, wbc 14.2, H/H 9.7/33, BUN/Cr 36/2.22 egfr 22.7, troponin .26, BNP >1300, tprot 5.6 and alb 2.5. All history is from the pt and medical records. Hospitalized 04/25- & 07/04- for CHF and 03/09 for anemia with dyspnea. She is admitted now with R lower leg wound and CHF exacerbation. Lab Values: Abnormal Lab Results 04/24/19 04/24/19 04/24/19 17:32 17:32 17:32 WBC 14.2 H RBC 4.28 Hgb 9.7 L Hct 33 L MCV 76 L MCH 23 L MCHC 30 L RDW 22 H Plt Count 433 MPV 8.7 Neut % (Auto) 85.6 Lymph % (Auto) 6.6 [place] % (Auto) 5.6 Eos % (Auto) 0.9 Baso % (Auto) 1.3 Absolute Neuts (auto) 12.1 H Absolute Lymphs (auto) 0.9 L Absolute Monos (auto) 0.8 Absolute Eos (auto) 0.1 Absolute Basos (auto) 0.2 Absolute Nucleated RBC 0.0 Nucleated RBC % 0.3 INR (Anticoag Therapy) 1.12 H Sodium 130 L Potassium 4.7 Chloride 95 L Carbon Dioxide 29 Anion Gap 6 BUN 36 H Creatinine 2.22 H Est GFR ( Amer) 27.5 Est GFR (Non-Af Amer) 22.7 BUN/Creatinine Ratio 16.2 Glucose 484 H POC Glucose (mg/dL) Lactic Acid Calcium 8.5 L Total Bilirubin 0.60 AST 10 L ALT 7 Alkaline Phosphatase 253 H Troponin I 0.29 H* C-Reactive Protein 50.47 H B-Natriuretic Peptide Total Protein 5.6 L Albumin 2.5 L Globulin 3.1 Albumin/Globulin Ratio 0.8 L Urine Color Urine Appearance Urine pH Ur Specific [place] Urine Protein Urine Ketones Urine Blood Urine Nitrate Urine Bilirubin Urine Urobilinogen Ur Leukocyte Esterase Urine WBC (Auto) Urine RBC (Auto) Urine Bacteria Urine Glucose 04/24/19 04/24/19 04/24/19 17:32 17:32 18:25 WBC RBC Hgb Hct MCV MCH MCHC RDW Plt Count MPV Neut % (Auto) Lymph % (Auto) [place] % (Auto) Eos % (Auto) Baso % (Auto) Absolute Neuts (auto) Absolute Lymphs (auto) Absolute Monos (auto) Absolute Eos (auto) Absolute Basos (auto) Absolute Nucleated RBC Nucleated RBC % INR (Anticoag Therapy) Sodium Potassium Chloride Carbon Dioxide Anion Gap BUN Creatinine Est GFR ( Amer) Est GFR (Non-Af Amer) BUN/Creatinine Ratio Glucose POC Glucose (mg/dL) Lactic Acid 1.2 Calcium Total Bilirubin AST ALT Alkaline Phosphatase Troponin I C-Reactive Protein B-Natriuretic Peptide > 1300 H Total Protein Albumin Globulin Albumin/Globulin Ratio Urine Color Yellow Urine Appearance Clear Urine pH 6.0 Ur Specific [place] 1.012 Urine Protein 2+(100 mg/dl) A Urine Ketones Negative Urine Blood 1+ A Urine Nitrate Negative Urine Bilirubin Negative Urine Urobilinogen Negative Ur Leukocyte Esterase Negative Urine WBC (Auto) 3+(>20/hpf) A Urine RBC (Auto) 1+(3-5/hpf) A Urine Bacteria 1+ A Urine Glucose 3+(>=500 mg/dl) A 04/24/19 04/24/19 04/25/19 21:00 21:22 07:09 WBC RBC Hgb Hct MCV MCH MCHC RDW Plt Count MPV Neut % (Auto) Lymph % (Auto) [place] % (Auto) Eos % (Auto) Baso % (Auto) Absolute Neuts (auto) Absolute Lymphs (auto) Absolute Monos (auto) Absolute Eos (auto) Absolute Basos (auto) Absolute Nucleated RBC Nucleated RBC % INR (Anticoag Therapy) Sodium Potassium Chloride Carbon Dioxide Anion Gap BUN Creatinine Est GFR ( Amer) Est GFR (Non-Af Amer) BUN/Creatinine Ratio Glucose POC Glucose (mg/dL) > 444 H* 102 H Lactic Acid Calcium Total Bilirubin AST ALT Alkaline Phosphatase Troponin I 0.26 H* C-Reactive Protein B-Natriuretic Peptide Total Protein Albumin Globulin Albumin/Globulin Ratio Urine Color Urine Appearance Urine pH Ur Specific [place] Urine Protein Urine Ketones Urine Blood Urine Nitrate Urine Bilirubin Urine Urobilinogen Ur Leukocyte Esterase Urine WBC (Auto) Urine RBC (Auto) Urine Bacteria Urine Glucose 04/25/19 11:03 WBC RBC Hgb Hct MCV MCH MCHC RDW Plt Count MPV Neut % (Auto) Lymph % (Auto) [place] % (Auto) Eos % (Auto) Baso % (Auto) Absolute Neuts (auto) Absolute Lymphs (auto) Absolute Monos (auto) Absolute Eos (auto) Absolute Basos (auto) Absolute Nucleated RBC Nucleated RBC % INR (Anticoag Therapy) Sodium Potassium Chloride Carbon Dioxide Anion Gap BUN Creatinine Est GFR ( Amer) Est GFR (Non-Af Amer) BUN/Creatinine Ratio Glucose POC Glucose (mg/dL) 98 Lactic Acid Calcium Total Bilirubin AST ALT Alkaline Phosphatase Troponin I C-Reactive Protein B-Natriuretic Peptide Total Protein Albumin Globulin Albumin/Globulin Ratio Urine Color Urine Appearance Urine pH Ur Specific [place] Urine Protein Urine Ketones Urine Blood Urine Nitrate Urine Bilirubin Urine Urobilinogen Ur Leukocyte Esterase Urine WBC (Auto) Urine RBC (Auto) Urine Bacteria Urine Glucose Laboratory Last Values WBC 14.2 10^3/uL (3.5-10.8) H 04/24/19 17:32 RBC 4.28 10^6 /uL (3.70-4.87) 04/24/19 17:32 Hgb 9.7 g/dL (12.0-16.0) L 04/24/19 17:32 Hct 33 % (35-47) L 04/24/19 17:32 MCV 76 fL (80-97) L 04/24/19 17:32 MCH 23 pg (27-31) L 04/24/19 17:32 MCHC 30 g/dL (31-36) L 04/24/19 17:32 RDW 22 % (10-15) H 04/24/19 17:32 Plt Count 433 10^3/uL (150-450) 04/24/19 17:32 MPV 8.7 fL (7.4-10.4) 04/24/19 17:32 Neut % (Auto) 85.6 % 04/24/19 17:32 Lymph % (Auto) 6.6 % 04/24/19 17:32 [place] % (Auto) 5.6 % 04/24/19 17:32 Eos % (Auto) 0.9 % 04/24/19 17:32 Baso % (Auto) 1.3 % 04/24/19 17:32 Absolute Neuts (auto) 12.1 10^3/ul (1.5-7.7) H 04/24/19 17:32 Absolute Lymphs (auto) 0.9 10^3/ul (1.0-4.8) L 04/24/19 17:32 Absolute Monos (auto) 0.8 10^3/ul (0-0.8) 04/24/19 17:32 Absolute Eos (auto) 0.1 10^3/ul (0-0.6) 04/24/19 17:32 Absolute Basos (auto) 0.2 10^3/ul (0-0.2) 04/24/19 17:32 Absolute Nucleated RBC 0.0 10^3/ul 04/24/19 17:32 Nucleated RBC % 0.3 04/24/19 17:32 INR (Anticoag Therapy) 1.12 (0.82-1.09) H 04/24/19 17:32 Sodium 130 mmol/L (135-145) L 04/24/19 17:32 Potassium 4.7 mmol/L (3.5-5.0) 04/24/19 17:32 Chloride 95 mmol/L (101-111) L 04/24/19 17:32 Carbon Dioxide 29 mmol/L (22-32) 04/24/19 17:32 Anion Gap 6 mmol/L (2-11) 04/24/19 17:32 BUN 36 mg/dL (6-24) H 04/24/19 17:32 Creatinine 2.22 mg/dL (0.51-0.95) H 04/24/19 17:32 Est GFR ( Amer) 27.5 (>60) 04/24/19 17:32 Est GFR (Non-Af Amer) 22.7 (>60) 04/24/19 17:32 BUN/Creatinine Ratio 16.2 (8-20) 04/24/19 17:32 Glucose 484 mg/dL (70-100) H 04/24/19 17:32 POC Glucose (mg/dL) 98 mg/dL (70-100) 04/25/19 11:03 Lactic Acid 1.2 mmol/L (0.5-2.0) 04/24/19 17:32 Calcium 8.5 mg/dL (8.6-10.3) L 04/24/19 17:32 Total Bilirubin 0.60 mg/dL (0.2-1.0) 04/24/19 17:32 AST 10 U/L (13-39) L 04/24/19 17:32 ALT 7 U/L (7-52) 04/24/19 17:32 Alkaline Phosphatase 253 U/L (34-104) H 04/24/19 17:32 Troponin I 0.26 ng/mL (<0.04) H* 04/24/19 21:00 C-Reactive Protein 50.47 mg/L (<8.01) H 04/24/19 17:32 B-Natriuretic Peptide > 1300 pg/mL (<=100) H 04/24/19 17:32 Total Protein 5.6 g/dL (6.4-8.9) L 04/24/19 17:32 Albumin 2.5 g/dL (3.2-5.2) L 04/24/19 17:32 Globulin 3.1 g/dL (2-4) 04/24/19 17:32 Albumin/Globulin Ratio 0.8 (1-3) L 04/24/19 17:32 Urine Color Yellow 04/24/19 18:25 Urine Appearance Clear 04/24/19 18:25 Urine pH 6.0 (5-9) 04/24/19 18:25 Ur Specific [place] 1.012 (1.010-1.030) 04/24/19 18:25 Urine Protein 2+(100 mg/dl) (Negative) A 04/24/19 18:25 Urine Ketones Negative (Negative) 04/24/19 18:25 Urine Blood 1+ (Negative) A 04/24/19 18:25 Urine Nitrate Negative (Negative) 04/24/19 18:25 Urine Bilirubin Negative (Negative) 04/24/19 18:25 Urine Urobilinogen Negative (Negative) 04/24/19 18:25 Ur Leukocyte Esterase Negative (Negative) 04/24/19 18:25 Urine WBC (Auto) 3+(>20/hpf) (Absent) A 04/24/19 18:25 Urine RBC (Auto) 1+(3-5/hpf) (Absent) A 04/24/19 18:25 Urine Bacteria 1+ (Absent) A 04/24/19 18:25 Urine Glucose 3+(>=500 mg/dl) (Negative) A 04/24/19 18:25 - Objective Active Medications: Acetaminophen (Tylenol Tab*) 650 mg PO Q6H PRN PRN Reason: FEVER/PAIN Albuterol/Ipratropium (Duoneb (Albuterol 2.5 Mg/Ipratropium 0.5 Mg)) 1 neb INH Q4H PRN PRN Reason: SHORTNESS OF BREATH Alprazolam (Xanax Tab*) 0.25 mg PO Q8H PRN PRN Reason: ANXIETY Aspirin (Aspirin Ec Tab*) 81 mg PO DAILY [facility] Last Admin: 04/25/19 08:11 Dose: 81 mg Carvedilol (Coreg Tab*) 3.125 mg PO BID [facility] Last Admin: 04/25/19 08:11 Dose: 3.125 mg Colchicine (Colcrys*) 0.3 mg PO DAILY PRN PRN Reason: Gout Cyanocobalamin (Vitamin B12 Tab*) 1,000 mcg PO DAILY [facility] Last Admin: 04/25/19 08:12 Dose: 1,000 mcg Dextrose (D50w Syringe 50 Ml*) 12.5 gm IV PUSH .FOR FS < 60 - SS PRN PRN Reason: FS < 60 Furosemide (Lasix Iv*) 40 mg IV SLOW PU 0800,1700 [facility] Last Admin: 04/25/19 08:10 Dose: 40 mg Gabapentin (Neurontin Cap(*)) 600 mg PO DAILY [facility] Last Admin: 04/25/19 08:12 Dose: Not Given Gabapentin (Neurontin Cap(*)) 1,200 mg PO BEDTIME [facility] Heparin Sodium (Porcine) (Heparin Vial(*)) 5,000 units SUBCUT Q12HR [facility] Last Admin: 04/25/19 08:11 Dose: 5,000 units Heparin Sodium (Porcine) (Heparin Flush Port (Ivad)) 5 ml FLUSH DAILY [facility]; Protocol Last Admin: 04/25/19 08:13 Dose: 5 ml Metronidazole/Sodium Chloride (Flagyl 250 Mg Ivpb*) 50 mls @ 50 mls/hr IVPB Q8H [facility] Last Admin: 04/25/19 08:09 Dose: 50 mls/hr Aztreonam 1 gm/ Sodium (Chloride) 50 mls @ 200 mls/hr IVPB Q8H [facility] Last Admin: 04/25/19 06:00 Dose: 200 mls/hr Vancomycin HCl 750 mg/ Sodium (Chloride) 250 mls @ 166.667 mls/hr IVPB Q12H [facility] Insulin Glargine (Lantus(*)) 20 units SUBCUT Q24H [facility] Last Admin: 04/25/19 08:13 Dose: 20 unit Insulin Human Lispro (Humalog*) 10 units SUBCUT AC [facility] Last Admin: 04/25/19 08:12 Dose: 10 unit Insulin Human Lispro (Humalog*) 0 units SUBCUT ACHS [facility]; Protocol Last Admin: 04/25/19 11:10 Dose: Not Given Loperamide HCl (Imodium Cap*) 4 mg PO DAILY PRN PRN Reason: LOOSE STOOLS Metolazone (Zaroxolyn Tab*) 5 mg PO DAILY@0830 [facility] Last Admin: 04/25/19 08:11 Dose: 5 mg Morphine Sulfate (Morphine Inj (Syringe))*) 2 mg IV Q4H PRN PRN Reason: PAIN - SEVERE Last Admin: 04/25/19 08:20 Dose: 2 mg Nitroglycerin (Nitroglycerin Tab 0.4 Mg*) 0.4 mg SL Q5M PRN PRN Reason: PAIN - CHEST Ondansetron HCl (Zofran Inj*) 4 mg IV Q6H PRN PRN Reason: NAUSEA Last Admin: 04/25/19 11:17 Dose: 4 mg Oxycodone HCl (Roxycodone Tab*) 5 mg PO Q6H PRN PRN Reason: Pain-MILD Oxycodone HCl (Roxycodone Tab*) 10 mg PO Q6H PRN PRN Reason: Pain-MODERATE Last Admin: 04/25/19 01:51 Dose: 10 mg Pharmacy Consult (Vancomycin Per Pharmacy*) 1 note FOLLOW UP .VANC PER PHARMACY [facility]; Protocol Pharmacy Profile Note (Vancomycin Trough Check) 1 note FOLLOW UP 1330 ONE Stop: 04/26/19 13:31 Pramipexole Dihydrochloride (Mirapex Tab*) 0.5 mg PO BEDTIME [facility] Prochlorperazine (Compazine Tab*) 10 mg PO Q6H PRN PRN Reason: NAUSEA Sertraline HCl (Zoloft*) 50 mg PO DAILY [facility] Last Admin: 04/25/19 08:11 Dose: 50 mg Vitamin B Complex/Vitamin E (B Complex-50*) 1 tab PO DAILY [facility] Last Admin: 04/25/19 08:13 Dose: 1 tab Vital Signs: Vital Signs: Temp Pulse Resp BP Pulse Ox 98.0 F 66 20 110/57 94 04/25/19 11:15 04/25/19 11:15 04/25/19 11:15 04/25/19 11:15 04/25/19 11:15 Patient Weight: Weight 84.368 kg Intake and Output: Intake & Output 04/23/19 04/24/19 04/25/19 04/26/19 06:59 06:59 06:59 06:59 Intake Total 414 65 Output Total 1550 Balance -1136 65 Weight 84.368 kg Intake: IV Fluids 26 10 ABX - AZTREONAM 10 10 ABX - FLAGYL 8 ABX - VANCOMYCIN 8 IVPB 388 55 ABX - AZTREONAM 60 55 ABX - FLAGYL 55 ABX - VANCOMYCIN 273 Oral 0 Output: Mckeon 950 Residual 600 Mckeon 16 Fr 600 ADLs: Meal Record Start: 04/24/19 22: 25 Freq: DAILY@0900,1400,1800 Status: Active Protocol: Created 04/24/19 22:25 System (Rec: 04/24/19 22:25 System [id number]) Intake and Output Start: 04/24/19 15: 47 Freq: Status: Active Protocol: Created 04/24/19 15:47 System (Rec: 04/24/19 15:47 System [id number]) Intake and Output Start: 04/24/19 22: 25 Freq: DAILY@0600,1400,2200 Status: Active Protocol: Created 04/24/19 22:25 System (Rec: 04/24/19 22:25 System [id number]) Document 04/25/19 06:00 [id number] (Rec: 04/25/19 06:09 [id number] [id number]) Ears/Nose/Mouth/Throat: NL Teeth, Lips, Gums Neck: NL Appearance and Movements; NL JVP Cardiovascular: NL Sounds; No Murmurs; No JVD Respiratory: Symmetrical Chest Expansion and Respiratory Effort Abdominal: NL Sounds; No Tenderness; No Distention Extremities: - - swelling of hands Neurological: Alert and Oriented x 3 - Assessment Assessment: 59 yo female with DM type 1 admitted with R lower leg wound and CHF exacerbation - Plan Consult Plan (MU): Palliative Plan: Long discussion with pt about goals of care. Pt was recently discharged from hospice residence because she was doing well and lived beyond the 6 months. She went home with visiting nurse service for wound care but they found maggots in her wound and she was brought to the hospital. Pt has noted that she is sleeping more and unable to do her ADLs no cleaning or cooking and not able to pivot anymore. She is interested in going back to the residence if she qualifies , if there are no open beds or she doesn't qualify she wants to stay at home. I did talk with her about SNF. She is not interested in rehab and really doesn't want to go to SNF but I'm not sure she will be able to care for herself at home. We also talked about getting hospice at SNF. She wants to discuss these options with her later scott. Will send hospice referral in am if that is what she wants. I asked her about her code status which is listed as full but she wants to be DNR/DNI, MOLST was completed. Hopsice eligibility would be based on CKD stage 4 not on dialysis, recurrent CHF exacerbations and malnutrition. KPS 50% PPS 50% - Time On Unit Date of Evaluation: 04/25/19 Hospice Consult Time in: 12:00 Hospice Consult Time Out: 13:30 Hospice Consult Time Total: 90 > 50% of Time Spend In Counseling or Coordinating Care: Yes
--- NOTE | 2019-04-25 13:07 | ECHO ---
*[facility]* [place] [address] Fax #: [phone] Transthoracic Echocardiogram Patient: Michelle Galarza : 1960 Study Date: 04/25/2019 Age: 59 Gender: F HR: 67 bpm Height: 62 in /157.5 cm BSA: 1.92 m^2 Weight: 179.6 lb /81.6 kg BMI: 32.9 kg/m^2 *Storage Wharfage Clerk: * Amy Gómez RD *Referring Physician: * Riccardo Del Cid *Reading Physician: * Cande Amado MD Indications: Congestive Heart Failure. History: COPD,prior cerebrovascular accident,s/p left BKA,PAD. Risk factors: Hypertension. Diabetes mellitus. Dyslipidemia. Labs, prior tests, procedures, and surgery: Coronary artery bypass grafting. Conclusions Summary: 1. Procedure narrative: Image quality was poor. The study was technically limited due to poor acoustic window availability. 2. Left ventricle: The estimated ejection fraction is 35-40% on rough visual estimate, may be lower. Severe diffuse hypokinesis. Septum appears dyskinetic, inferior posterior pierce more hypokinetic than anterior lateral pierce. [place] moves poorly on some views. 3. Right ventricle: Systolic function is mildly reduced. [place] appears hypokinetic. 4. Pericardium, extracardiac: There is a moderate-sized left pleural effusion. 5. Valves not well imaged and unable to evaluate well with color, PW or CW Doppler. No appreaciable significant valve leaks or stensosis on gross evaluation. 6. Compared with prior echocardiogram of 05/18/18, prior ejection fraction 30-35%, wall motion commends similar. Unable to compare valve function. Recommendations: Consider transesophageal echocardiogram for more accurate echocardiogram evaluation of ventricular and valvular function if clinically appropriate or MUGA for LVEF evaluation. Study data: Transthoracic echocardiogram. Procedure: Transthoracic echocardiography was performed. Image quality was poor. The study was technically limited due to poor acoustic window availability. Intravenous Definity , 4 mlswas administered. Image enhancement administered by Complete 2D, spectral Doppler, and color flow Doppler. Patient status: Inpatient. Patient room number: 452. Rhythm: Normal sinus rhythm. Findings Left ventricle: Poorly visusalized. The estimated ejection fraction is 35-40% on rough visual estimate, may be lower. Severe diffuse hypokinesis. Septum appears dyskinetic, inferior posterior pierce more hypokinetic than anterior lateral pierce. [place] moves poorly on some views. There is no consistent Doppler evidence of clinically significant diastolic dysfunction. Right ventricle: Not well visualized. Systolic function is mildly reduced. [place] appears hypokinetic. Ventricular septum: Not well visualized. Left atrium: Not well visualized. Right atrium: Not well visualized. Pacer wire noted in right atrium. Atrial septum: Not well visualized. Mitral valve: Not well visualized. Aortic valve: Not well visualized. Tricuspid valve: Not well visualized. Pulmonic valve: Not well visualized. Aorta: The aorta is poorly visualized. Pericardium: There is a moderate-sized left pleural effusion. Pulmonary arteries: Not well visualized. Systemic veins: Not well visualized. Pulmonary veins: Not well visualized. Measurements LVOT Value Mitral valve Value Peak luke, S 0.88 m/sec Peak E 0.76 m/sec VTI, S 15.7 cm Peak A 0.74 m/sec Peak grad, S 3 mm Hg Decel time 166 ms Mean grad, S 1 mm Hg Peak grad, D 2.3 mm Hg Peak E/A ratio 1.02 Aortic valve Value Peak v, S 1.38 m/sec Pulmonic valve Value VTI, S 26.7 cm Peak v, S 0.63 m/sec Mean grad, S 4.2 mm Hg Peak grad, S 1.6 mm Hg Peak grad, S 7.7 mm Hg LVOT/AV, VTI ratio 0.59 Legend: (L) and (H) evelio values outside specified reference range. Prepared and electronically signed by Cande Amado MD 04/25/2019 13:06
[2019-04-25] MEDS: Vancomycin(*) 750 MG in NS 0.9% 250 ML* 250 ML IVPB SCH (13:12)
[2019-04-25] MEDS ORDERED: Dextrose 50% VIAL 50 ml IV PUSH PRN (17:00)
--- NOTE | 2019-04-25 17:09 | CONSULT ---
Subjective Date of Service: 04/25/19 Interval History: Ms. Gaalrza is a 59 yo female with PMH significant for CAD s/p CABG, carotid stenosis, PAD, DM1, vasculopathy, peripheral neuropathy, anemia, CKD stage 4, gastroporesis, HTN, HLD, COPD, CVA, GOUT, and CHF with last EF 35-40%; she presented to the emergency room for her right lower extremity wound, after being found to have maggots growing in the wound by VNS. She presented to the hospital with a known ulcer to her right lower extremity, that she has been following with the [facility] wound center. The wound on the right LE has been present for about 1.5 months. The dressing to the wound is changed 3 times weekly by VNS, she was using Santyl on the wound but this was causing "burning" and she has switched to using ABX ointment until her next visit with the wound clinic. Patient seen and examined at bedside. Family History: Unchanged from Admission Social History: Unchanged from Admission Past Medical History: Unchanged from Admission Review of Systems - Measurements Intake and Output: Intake and Output Last 24 Hours 04/23/19 04/24/19 04/25/19 04/26/19 06:59 06:59 06:59 06:59 Intake Total 414 895 Output Total 1550 0 Balance -1136 895 Weight 186 lb Intake: IV Fluids 26 10 ABX - AZTREONAM 10 10 ABX - FLAGYL 8 ABX - VANCOMYCIN 8 IVPB 388 55 ABX - AZTREONAM 60 55 ABX - FLAGYL 55 ABX - VANCOMYCIN 273 Oral 0 830 Output: Urine 0 Mckeon 950 Residual 600 Mckeon 16 Fr 600 - Review of Systems Constitutional Symptoms: Negative: Fever, Other - Chills Dermatology: Positive: Other - Wound to right leg Endocrinology: Positive: Obesity, Diabetes Mellitus Neurology: Positive: Numbness\\Paresthesiae - Legs Objective Active Medications: Acetaminophen (Tylenol Tab*) 650 mg PO Q6H PRN Reason: FEVER/PAIN Albuterol/Ipratropium (Duoneb (Albuterol 2.5 Mg/Ipratropium 0.5 Mg)) 1 neb INH Q4H PRN Reason: SHORTNESS OF BREATH Alprazolam (Xanax Tab*) 0.25 mg PO Q8H PRN Reason: ANXIETY Aspirin (Aspirin Ec Tab*) 81 mg PO DAILY [place] Carvedilol (Coreg Tab*) 3.125 mg PO BID [facility] Colchicine (Colcrys*) 0.3 mg PO DAILY PRN Reason: Gout Cyanocobalamin (Vitamin B12 Tab*) 1,000 mcg PO DAILY [facility] Dextrose (Dextrose 50% Vial 50 Ml*) 12.5 ml IV PUSH .FOR FS < 60 - SS PRN Reason: FS < 60 Furosemide (Lasix Iv*) 40 mg IV SLOW PU 0800,1700 [facility] Gabapentin (Neurontin Cap(*)) 600 mg PO DAILY [facility] Gabapentin (Neurontin Cap(*)) 1,200 mg PO BEDTIME [facility] Heparin Sodium (Porcine) (Heparin Vial(*)) 5,000 units SUBCUT Q12HR [facility] Heparin Sodium (Porcine) (Heparin Flush Port (Ivad)) 5 ml FLUSH DAILY [facility]; Protocol Metronidazole/Sodium Chloride (Flagyl 250 Mg Ivpb*) 50 mls @ 50 mls/hr IVPB Q8H [facility] Aztreonam 1 gm/ Sodium (Chloride) 50 mls @ 200 mls/hr IVPB Q8H [facility] Vancomycin HCl 750 mg/ Sodium (Chloride) 250 mls @ 166.667 mls/hr IVPB Q12H [facility] Insulin Glargine (Lantus(*)) 20 units SUBCUT Q24H [facility] Insulin Human Lispro (Humalog*) 10 units SUBCUT AC [facility] Insulin Human Lispro (Humalog*) 0 units SUBCUT ACHS [facility]; Protocol Loperamide HCl (Imodium Cap*) 4 mg PO DAILY PRN Reason: LOOSE STOOLS Metolazone (Zaroxolyn Tab*) 5 mg PO DAILY@0830 [facility] Morphine Sulfate (Morphine Inj (Syringe))*) 2 mg IV Q4H PRN Reason: PAIN - SEVERE Nitroglycerin (Nitroglycerin Tab 0.4 Mg*) 0.4 mg SL Q5M PRN Reason: PAIN - CHEST Ondansetron HCl (Zofran Inj*) 4 mg IV Q6H PRN Reason: NAUSEA Oxycodone HCl (Roxycodone Tab*) 5 mg PO Q6H PRN Reason: Pain-MILD Oxycodone HCl (Roxycodone Tab*) 10 mg PO Q6H PRN Reason: Pain-MODERATE Pharmacy Consult (Vancomycin Per Pharmacy*) 1 note FOLLOW UP .VANC PER PHARMACY [facility]; Protocol Pharmacy Profile Note (Vancomycin Trough Check) 1 note FOLLOW UP 1330 ONE Stop: 04/26/19 13:31 Pramipexole Dihydrochloride (Mirapex Tab*) 0.5 mg PO BEDTIME [place] Prochlorperazine (Compazine Tab*) 10 mg PO Q6H PRN Reason: NAUSEA Sertraline HCl (Zoloft*) 50 mg PO DAILY [facility] Vitamin B Complex/Vitamin E (B Complex-50*) 1 tab PO DAILY [facility] Vital Signs 04/25/19 04/25/19 04/25/19 09:15 11:15 13:15 Temperature 98.0 F Pulse Rate 66 Respiratory 20 20 20 Rate Blood Pressure 110/57 (mmHg) O2 Sat by Pulse 94 Oximetry Oxygen Devices in Use Now: Nasal Cannula Appearance: NAD, sitting up in bed Ears/Nose/Mouth/Throat: Mucous Membranes Moist Respiratory: Symmetrical Chest Expansion and Respiratory Effort Cardiovascular: - - 2+ pitting edema Extremities: - - Weak right LE PP, heard well with doppler Skin: - - See skin note below Neurological: Alert and Oriented x 3 Nutrition: Taking PO's Result Diagrams: 04/29/19 04:00 04/29/19 04:00 Additional Lab and Data: Above labs were pulled into the note, when the note was edited prior to signing. See labs from day of consultation below. Laboratory Tests 04/24/19 04/25/19 04/25/19 17:32 17:10 17:10 WBC 13.6 H Hgb 8.4 L Hct 29 L RDW 21 H Sodium 133 L Potassium 4.2 Chloride 99 L Carbon Dioxide 30 BUN 38 H Creatinine 2.15 H Hemoglobin A1c C-Reactive Protein 62.01 H Total Protein 5.6 L Albumin 2.5 L 04/25/19 17:10 WBC Hgb Hct RDW Sodium Potassium Chloride Carbon Dioxide BUN Creatinine Hemoglobin A1c 17.0 H C-Reactive Protein Total Protein Albumin Microbiology and Other Data: Microbiology 04/24/19 18:25 Urine Culture - Preliminary Urine Strep Group B Citrobacter Freundii 04/25/19 01:55 Skin and Soft Tissue MRSA/MSSA (PCR - Final Leg Right Mrsa Negative S.aureus Positive Gram Stain - Final 04/25/19 01:55 Nasal Screen MRSA (PCR) - Final Nasal Mrsa Not Detected Diagnostic Imaging: Exam Date: 04/14/19 - VL ANK/BRACHIAL INDICES Ankle-brachial indices: Right: Value (SBP) Index Brachial: 153 Posterior tibialis: 171 1.07 Dorsalis pedis: 161 1.01 Digit: 158 0.99 Doppler waveforms (acquired at rest): In the interrogated lower extremity arteries, Doppler waveforms are triphasic in the right lower extremity. Volume pulse recordings (acquired at rest): Volume pulse recordings, measured at the right ankle, measures 31 mm. IMPRESSION: No evidence of claudication or significant arterial insufficiency in the right lower extremity by vascular ultrasound FAY standards. Skin Deviation Note - Skin Deviation Findings Right lateral lower leg - The wound measures 10 cm x 6.5 cm x 0.7 cm. The wound bed has yellow slough and dark colored tissue in the deeper area. There is serous drainage from the wound. The surrounding skin is intact. There is a second wound more posterior, not in the picture, this measures 0.6 cm x 1.5 cm x 0.1 cm. The wound base is yellow slough. The surrounding skin is intact and there is serous drainage. Right lower leg - There is a small wound above the posterior ankle, measures 0.6 cm x 0.5 cm x 0.2 cm. The wound base is yellow slough. There is serous drainage from the wound. The surrounding skin is intact. There is dry and peeling skin to the right foot. Assessment/Plan: Ms. Galarza is a 59 yo female with PMH significant for CAD s/p CABG, carotid stenosis, PAD, DM1, vasculopathy, peripheral neuropathy, anemia, CKD stage 4, gastroporesis, HTN, HLD, COPD, CVA, GOUT, and CHF with last EF 35-40%; she presented to the emergency room for her right lower extremity wound, when she was found to have maggots growing in the wound. 1. Right lower extremity wound. She was seen in consultation by Dr. Zavala and he felt that the wound was secondary to venous insufficiency and/or LE edema. Recent ABIs normal. Suspect secondary to PVD and lower extremity edema in the setting of CHF. This wound was found to have maggots at the times of admission. Recommend applying calcium alginate to the open areas, followed by rolled gauze and change the dressing daily. Keep LE elevated to help with edema management. The wound will need further debridement but this does not need to be done while she is inpatient, she is not tolerating Santyl for chemical debridement. She should be referred back to the [facility] wound clinic at discharge. 2. Right achilles wound. Suspect this is secondary to pressure vs DM ulcer. Keep heel elevated off the bed. Recommend applying calcium alginate to the wound and change daily with above dressing. 3. DM1 with associated peripheral neuropathy, CKD, and gastroporesis. History of poor compliance. HgA1C was 17 on during this admission. Maintain good glycemic control to allow for wound healing. 4. PAD with history of left BKA. 5. CHF. Suspect the significant edema is contributing to her lower extremity wounds. Maintain fluid balance and diuresis as needed. 6. Diet. Consistent Carbohydrate diet. 7. Code Status. DNR. 8. Disposition. Inpatient. Disposition per primary medicine team. TIME SPENT: Time for this wound consult was 35 minutes and 25 minutes was spent with the patient discussing past medical history; assessing, measuring, and photographing the wounds. Wound Problem/Plan Is Patient a Wound Clinic Patient: [facility] Next Visit: 04/27/19 - Dr. Mcgovern Current Treatment: Antibiotic ointment and dressing Attending: Aishwarya Kumari
--- NOTE | 2019-04-25 17:10 | PN ---
Subjective Date of Service: 04/25/19 Interval History: patient seen this morning, she is in lot of pain from her leg and edema. right leg does have open wound with dry dressing. Apparently she had maggot in her wound which were call cleaned and irrigated by nursing staff. seen by palliative care and hospice referral was made. DNR/DNI form signed Past Medical History: Unchanged from Admission Objective Active Medications: Acetaminophen (Tylenol Tab*) 650 mg PO Q6H PRN PRN Reason: FEVER/PAIN Albuterol/Ipratropium (Duoneb (Albuterol 2.5 Mg/Ipratropium 0.5 Mg)) 1 neb INH Q4H PRN PRN Reason: SHORTNESS OF BREATH Alprazolam (Xanax Tab*) 0.25 mg PO Q8H PRN PRN Reason: ANXIETY Aspirin (Aspirin Ec Tab*) 81 mg PO DAILY [facility] Last Admin: 04/25/19 08:11 Dose: 81 mg Carvedilol (Coreg Tab*) 3.125 mg PO BID [facility] Last Admin: 04/25/19 08:11 Dose: 3.125 mg Colchicine (Colcrys*) 0.3 mg PO DAILY PRN PRN Reason: Gout Cyanocobalamin (Vitamin B12 Tab*) 1,000 mcg PO DAILY [facility] Last Admin: 04/25/19 08:12 Dose: 1,000 mcg Dextrose (Dextrose 50% Vial 50 Ml*) 12.5 ml IV PUSH .FOR FS < 60 - SS PRN PRN Reason: FS < 60 Last Admin: 04/25/19 16:10 Dose: 12.5 ml Furosemide (Lasix Iv*) 40 mg IV SLOW PU 0800,1700 [facility] Last Admin: 04/25/19 08:10 Dose: 40 mg Gabapentin (Neurontin Cap(*)) 600 mg PO DAILY [facility] Last Admin: 04/25/19 08:12 Dose: Not Given Gabapentin (Neurontin Cap(*)) 1,200 mg PO BEDTIME [facility] Heparin Sodium (Porcine) (Heparin Vial(*)) 5,000 units SUBCUT Q12HR [facility] Last Admin: 04/25/19 08:11 Dose: 5,000 units Heparin Sodium (Porcine) (Heparin Flush Port (Ivad)) 5 ml FLUSH DAILY [facility]; Protocol Last Admin: 04/25/19 08:13 Dose: 5 ml Metronidazole/Sodium Chloride (Flagyl 250 Mg Ivpb*) 50 mls @ 50 mls/hr IVPB Q8H [facility] Last Admin: 04/25/19 15:43 Dose: 50 mls/hr Aztreonam 1 gm/ Sodium (Chloride) 50 mls @ 200 mls/hr IVPB Q8H [facility] Last Admin: 04/25/19 15:26 Dose: 200 mls/hr Vancomycin HCl 750 mg/ Sodium (Chloride) 250 mls @ 166.667 mls/hr IVPB Q12H [facility] Last Admin: 04/25/19 13:12 Dose: 166.667 mls/hr Insulin Human Lispro (Humalog*) 0 units SUBCUT ACHS [facility]; Protocol Last Admin: 04/25/19 11:10 Dose: Not Given Loperamide HCl (Imodium Cap*) 4 mg PO DAILY PRN PRN Reason: LOOSE STOOLS Metolazone (Zaroxolyn Tab*) 5 mg PO DAILY@0830 [facility] Last Admin: 04/25/19 08:11 Dose: 5 mg Morphine Sulfate (Morphine Inj (Syringe))*) 2 mg IV Q4H PRN PRN Reason: PAIN - SEVERE Last Admin: 04/25/19 13:15 Dose: 2 mg Nitroglycerin (Nitroglycerin Tab 0.4 Mg*) 0.4 mg SL Q5M PRN PRN Reason: PAIN - CHEST Ondansetron HCl (Zofran Inj*) 4 mg IV Q6H PRN PRN Reason: NAUSEA Last Admin: 04/25/19 11:17 Dose: 4 mg Oxycodone HCl (Roxycodone Tab*) 5 mg PO Q6H PRN PRN Reason: Pain-MILD Oxycodone HCl (Roxycodone Tab*) 10 mg PO Q6H PRN PRN Reason: Pain-MODERATE Last Admin: 04/25/19 01:51 Dose: 10 mg Pharmacy Consult (Vancomycin Per Pharmacy*) 1 note FOLLOW UP .VANC PER PHARMACY [facility]; Protocol Pharmacy Profile Note (Vancomycin Trough Check) 1 note FOLLOW UP 1330 ONE Stop: 04/26/19 13:31 Pramipexole Dihydrochloride (Mirapex Tab*) 0.5 mg PO BEDTIME [facility] Prochlorperazine (Compazine Tab*) 10 mg PO Q6H PRN PRN Reason: NAUSEA Sertraline HCl (Zoloft*) 50 mg PO DAILY [facility] Last Admin: 04/25/19 08:11 Dose: 50 mg Vitamin B Complex/Vitamin E (B Complex-50*) 1 tab PO DAILY [facility] Last Admin: 04/25/19 08:13 Dose: 1 tab Vital Signs - 8 hr 04/25/19 04/25/19 04/25/19 09:15 11:15 13:15 Temperature 98.0 F Pulse Rate 66 Respiratory 20 20 20 Rate Blood Pressure 110/57 (mmHg) O2 Sat by Pulse 94 Oximetry 04/25/19 15:15 Temperature 97.2 F Pulse Rate 70 Respiratory 16 Rate Blood Pressure 136/57 (mmHg) O2 Sat by Pulse 92 Oximetry Oxygen Devices in Use Now: Nasal Cannula Appearance: awake alert no mild distress from pain Eyes: No Scleral Icterus Ears/Nose/Mouth/Throat: Mucous Membranes Moist Neck: NL Appearance and Movements; NL JVP Respiratory: - - crackle and bases bilateral Cardiovascular: NL Sounds; No Murmurs; No JVD, - - + 4 edema Abdominal: - - + BS and anasarca Extremities: - - right lower extremety swelling Neurological: Alert and Oriented x 3 Result Diagrams: 04/24/19 17:32 04/24/19 17:32 Additional Lab and Data: Lab Results 04/24/19 04/24/19 04/24/19 Range/Units 17:32 17:32 17:32 WBC 14.2 H (3.5-10.8) 10^3/uL RBC 4.28 (3.70-4.87) 10^6 /uL Hgb 9.7 L (12.0-16.0) g/dL Hct 33 L (35-47) % MCV 76 L (80-97) fL MCH 23 L (27-31) pg MCHC 30 L (31-36) g/dL RDW 22 H (10-15) % Plt Count 433 (150-450) 10^3/uL MPV 8.7 (7.4-10.4) fL Neut % (Auto) 85.6 % Lymph % (Auto) 6.6 % Lee % (Auto) 5.6 % Eos % (Auto) 0.9 % Baso % (Auto) 1.3 % Absolute Neuts (auto) 12.1 H (1.5-7.7) 10^3/ul Absolute Lymphs (auto) 0.9 L (1.0-4.8) 10^3/ul Absolute Monos (auto) 0.8 (0-0.8) 10^3/ul Absolute Eos (auto) 0.1 (0-0.6) 10^3/ul Absolute Basos (auto) 0.2 (0-0.2) 10^3/ul Absolute Nucleated RBC 0.0 10^3/ul Nucleated RBC % 0.3 INR (Anticoag Therapy) 1.12 H (0.82-1.09) Sodium 130 L (135-145) mmol/L Potassium 4.7 (3.5-5.0) mmol/L Chloride 95 L (101-111) mmol/L Carbon Dioxide 29 (22-32) mmol/L Anion Gap 6 (2-11) mmol/L BUN 36 H (6-24) mg/dL Creatinine 2.22 H (0.51-0.95) mg/dL Est GFR ( Amer) 27.5 (>60) Est GFR (Non-Af Amer) 22.7 (>60) BUN/Creatinine Ratio 16.2 (8-20) Glucose 484 H (70-100) mg/dL Lactic Acid (0.5-2.0) mmol/L Calcium 8.5 L (8.6-10.3) mg/dL Total Bilirubin 0.60 (0.2-1.0) mg/dL AST 10 L (13-39) U/L ALT 7 (7-52) U/L Alkaline Phosphatase 253 H (34-104) U/L Troponin I 0.29 H* (<0.04) ng/mL C-Reactive Protein 50.47 H (<8.01) mg/L B-Natriuretic Peptide (<=100) pg/mL Total Protein 5.6 L (6.4-8.9) g/dL Albumin 2.5 L (3.2-5.2) g/dL Globulin 3.1 (2-4) g/dL Albumin/Globulin Ratio 0.8 L (1-3) Urine Color Urine Appearance Urine pH (5-9) Ur Specific [place] (1.010-1.030) Urine Protein (Negative) Urine Ketones (Negative) Urine Blood (Negative) Urine Nitrate (Negative) Urine Bilirubin (Negative) Urine Urobilinogen (Negative) Ur Leukocyte Esterase (Negative) Urine WBC (Auto) (Absent) Urine RBC (Auto) (Absent) Urine Bacteria (Absent) Urine Glucose (Negative) 04/24/19 04/24/19 04/24/19 Range/Units 17:32 17:32 18:25 WBC (3.5-10.8) 10^3/uL RBC (3.70-4.87) 10^6 /uL Hgb (12.0-16.0) g/dL Hct (35-47) % MCV (80-97) fL MCH (27-31) pg MCHC (31-36) g/dL RDW (10-15) % Plt Count (150-450) 10^3/uL MPV (7.4-10.4) fL Neut % (Auto) % Lymph % (Auto) % Lee % (Auto) % Eos % (Auto) % Baso % (Auto) % Absolute Neuts (auto) (1.5-7.7) 10^3/ul Absolute Lymphs (auto) (1.0-4.8) 10^3/ul Absolute Monos (auto) (0-0.8) 10^3/ul Absolute Eos (auto) (0-0.6) 10^3/ul Absolute Basos (auto) (0-0.2) 10^3/ul Absolute Nucleated RBC 10^3/ul Nucleated RBC % INR (Anticoag Therapy) (0.82-1.09) Sodium (135-145) mmol/L Potassium (3.5-5.0) mmol/L Chloride (101-111) mmol/L Carbon Dioxide (22-32) mmol/L Anion Gap (2-11) mmol/L BUN (6-24) mg/dL Creatinine (0.51-0.95) mg/dL Est GFR ( Amer) (>60) Est GFR (Non-Af Amer) (>60) BUN/Creatinine Ratio (8-20) Glucose (70-100) mg/dL Lactic Acid 1.2 (0.5-2.0) mmol/L Calcium (8.6-10.3) mg/dL Total Bilirubin (0.2-1.0) mg/dL AST (13-39) U/L ALT (7-52) U/L Alkaline Phosphatase (34-104) U/L Troponin I (<0.04) ng/mL C-Reactive Protein (<8.01) mg/L B-Natriuretic Peptide > 1300 H (<=100) pg/mL Total Protein (6.4-8.9) g/dL Albumin (3.2-5.2) g/dL Globulin (2-4) g/dL Albumin/Globulin Ratio (1-3) Urine Color Yellow Urine Appearance Clear Urine pH 6.0 (5-9) Ur Specific [place] 1.012 (1.010-1.030) Urine Protein 2+(100 mg/dl) A (Negative) Urine Ketones Negative (Negative) Urine Blood 1+ A (Negative) Urine Nitrate Negative (Negative) Urine Bilirubin Negative (Negative) Urine Urobilinogen Negative (Negative) Ur Leukocyte Esterase Negative (Negative) Urine WBC (Auto) 3+(>20/hpf) A (Absent) Urine RBC (Auto) 1+(3-5/hpf) A (Absent) Urine Bacteria 1+ A (Absent) Urine Glucose 3+(>=500 mg/dl) A (Negative) Microbiology and Other Data: Microbiology 04/24/19 18:25 Urine Culture - Preliminary Urine Strep Group B Citrobacter Freundii 04/25/19 01:55 Skin and Soft Tissue MRSA/MSSA (PCR - Final Leg Right Mrsa Negative S.aureus Positive Gram Stain - Final 04/25/19 01:55 Nasal Screen MRSA (PCR) - Final Nasal Mrsa Not Detected Diagnostic Imaging: Exam Date: 04/14/19 - VL ANK/BRACHIAL INDICES Ankle-brachial indices: Right: Value (SBP) Index Brachial: 153 Posterior tibialis: 171 1.07 Dorsalis pedis: 161 1.01 Digit: 158 0.99 Doppler waveforms (acquired at rest): In the interrogated lower extremity arteries, Doppler waveforms are triphasic in the right lower extremity. Volume pulse recordings (acquired at rest): Volume pulse recordings, measured at the right ankle, measures 31 mm. IMPRESSION: No evidence of claudication or significant arterial insufficiency in the right lower extremity by vascular ultrasound FAY standards. Assess/Plan/Problems-Billing Assessment: - Patient Problems (1) Ulcer of right lower leg Current Visit: Yes Status: Acute Code(s): L97.919 - NON-PRS CHRONIC ULC UNSP PRT OF R LOW LEG W UNSP SEVERITY SNOMED Code(s): 070849014 Comment: - Suspect secondary to diabetic and venous stasis - Wound care appreciated - Conitnue azactam. flagyl and vanco - Follow up culture (2) Acute on chronic systolic (congestive) heart failure Current Visit: No Status: Acute Priority: High Code(s): I50.23 - ACUTE ON CHRONIC SYSTOLIC (CONGESTIVE) HEART FAILURE SNOMED Code(s): 848061320 Comment: - continue lasix 40 mg IV bid, zaroxylen 5 mg daily - monitor weight and output (3) CKD (chronic kidney disease) Current Visit: No Status: Acute Code(s): N18.9 - CHRONIC KIDNEY DISEASE, UNSPECIFIED SNOMED Code(s): 524686047 Comment: - Continue diuresis and follow closely - Creatinine 2.2. check bmp daily (4) Uncontrolled type II diabetes mellitus Current Visit: No Status: Acute Code(s): E11.65 - TYPE 2 DIABETES MELLITUS WITH HYPERGLYCEMIA SNOMED Code(s): 555756137 Comment: - hypogylcemia this afternoon. I did discontinue her lantus and lispro 10 AC and will continue with SS only - BG was 47 given am one amp of D50 and (5) DVT prophylaxis Current Visit: No Status: Acute Priority: Low Code(s): UQZ3935 - SNOMED Code(s): 989055395 Comment: SQ heparin Status and Disposition: palliative care consult, pending hospice referral
[2019-04-25 17:25] LABS: ABS Basophils 0.2 10^3/ul (0-0.2); ABS Eosinophils 0.2 10^3/ul (0-0.6); ABS Lymphocytes 0.7 10^3/ul (1.0-4.8); ABS Monocytes 0.9 10^3/ul (0-0.8); ABS Neutrophils 11.6 10^3/ul (1.5-7.7); ABS Nucleated RBC 0.1 10^3/ul; Eosinophil % 1.1 %; Hematocrit 29 % (35-47); Hemoglobin 8.4 g/dL (12.0-16.0); Lymphocyte % 5.4 %; Mean Corpuscular HGB Conc 29 g/dL (31-36); Mean Corpuscular Hemoglobin 22 pg (27-31); Mean Corpuscular Volume 76 fL (80-97); Mean Platelet Volume 8.7 fL (7.4-10.4); Nucleated Red Blood Cells % 0.4; Platelet Count 392 10^3/uL (150-450); Red Blood Count 3.81 10^6 /uL (3.70-4.87); Red Cell Distribution Width 21 % (10-15); White Blood Count 13.6 10^3/uL (3.5-10.8)
[2019-04-25 17:40] LABS: BUN/Creatinine Ratio 17.7 (8-20); C Reactive Protein 62.01 mg/L (<8.01); Calcium 8.1 mg/dL (8.6-10.3); EGFR African American 28.5 (>60); EGFR Non-African American 23.5 (>60); HDL Cholesterol 25.8 mg/dL; Potassium 4.2 mmol/L (3.5-5.0)
[2019-04-25] MEDS: Gabapentin CAP(*) 400 MG PO SCH (22:41)
[2019-04-25] MEDS: Pramipexole TAB* 0.5 MG PO SCH (22:41)
[2019-04-26] MEDS: metroNIDAZOLE IV 250 MG/50ML* 50 ML IVPB SCH ×3 (01:07→17:00)
[2019-04-26] MEDS: Ondansetron INJ* 2 MG/ML VIAL IV PRN ×3 (02:28→15:46)
[2019-04-26] MEDS: Vancomycin(*) 750 MG in NS 0.9% 250 ML* 250 ML IVPB SCH ×2 (03:44→14:25)
[2019-04-26] MEDS: Aztreonam (*) 1 GM in NS 0.9% 50 ML* 50 ML IVPB SCH ×3 (06:23→22:57)
[2019-04-26 06:33] LABS: ABS Basophils 0.1 10^3/ul (0-0.2); ABS Eosinophils 0.2 10^3/ul (0-0.6); ABS Lymphocytes 0.9 10^3/ul (1.0-4.8); ABS Neutrophils 8.8 10^3/ul (1.5-7.7); ABS Nucleated RBC 0.1 10^3/ul; Eosinophil % 1.5 %; Hematocrit 28 % (35-47); Hemoglobin 8.4 g/dL (12.0-16.0); Lymphocyte % 8.6 %; Mean Corpuscular HGB Conc 30 g/dL (31-36); Mean Corpuscular Hemoglobin 23 pg (27-31); Mean Corpuscular Volume 75 fL (80-97); Mean Platelet Volume 8.4 fL (7.4-10.4); Nucleated Red Blood Cells % 0.4; Platelet Count 357 10^3/uL (150-450); Red Blood Count 3.72 10^6 /uL (3.70-4.87); Red Cell Distribution Width 21 % (10-15)
[2019-04-26 06:49] LABS: BUN/Creatinine Ratio 17.8 (8-20); Calcium 7.9 mg/dL (8.6-10.3); EGFR African American 28.8 (>60); EGFR Non-African American 23.8 (>60); Magnesium 2.1 mg/dL (1.9-2.7); Phosphorus 4.8 mg/dL (2.5-5.0); Potassium 4.1 mmol/L (3.5-5.0)
[2019-04-26] MEDS: Insulin LISPRO* 1 UNITS UNIT SUBCUT SCH ×4 (08:20→21:11)
[2019-04-26] MEDS: Furosemide IV* 10 MG/ML VIAL (40 MG) IV SLOW PU SCH (08:20)
[2019-04-26] MEDS: Heparin VIAL(*) 5000 UNITS/ML VIAL (FIVE THOUSAND) SUBCUT SCH ×2 (08:26→21:02)
[2019-04-26] MEDS: Metolazone TAB* 5 MG PO SCH (08:26)
[2019-04-26] MEDS: Morphine INJ* 2 MG/ML 1 ML SYRINGE (TWO MG - NEW SYRINGE VERSION) IV PRN ×3 (08:26→19:46)
[2019-04-26] MEDS: Carvedilol TAB* 3.125 MG PO SCH ×2 (08:26→21:02)
[2019-04-26] MEDS: Gabapentin CAP(*) 300 MG PO SCH (08:27)
[2019-04-26] MEDS: Vitamin B Complex TAB PO SCH (08:27)
[2019-04-26] MEDS: Aspirin EC TAB* 81 MG TAB.EC PO SCH (08:27)
[2019-04-26] MEDS: Sertraline* 50 MG TAB PO SCH (08:27)
[2019-04-26] MEDS: Cyanocobalamin TAB* 500 MCG PO SCH (08:27)
[2019-04-26] MEDS: Prochlorperazine TAB* 10 MG PO PRN (12:49)
[2019-04-26] MEDS ORDERED: Furosemide IV* 100 MG in NS 0.9% 100 ML* 90 ML IV SCH ×3 (13:00→18:00)
[2019-04-26] MEDS ORDERED: Vancomycin Trough Check NOTE FOLLOW UP ONE (13:30)
--- NOTE | 2019-04-26 16:32 | PN ---
Subjective Date of Service: 04/26/19 Interval History: awake, pleasant no distress. taking po. Lasix 40 mg IV bid with poor response. still stage 4 edema and urine 0utput only 1500 ml yesterday. Remains on antibiotics. Wound consult note appreciated. remain on Vanco, azactam and flagyl Past Medical History: Unchanged from Admission Objective Active Medications: Acetaminophen (Tylenol Tab*) 650 mg PO Q6H PRN PRN Reason: FEVER/PAIN Albuterol/Ipratropium (Duoneb (Albuterol 2.5 Mg/Ipratropium 0.5 Mg)) 1 neb INH Q4H PRN PRN Reason: SHORTNESS OF BREATH Alprazolam (Xanax Tab*) 0.25 mg PO Q8H PRN PRN Reason: ANXIETY Aspirin (Aspirin Ec Tab*) 81 mg PO DAILY [facility] Last Admin: 04/26/19 08:27 Dose: 81 mg Carvedilol (Coreg Tab*) 3.125 mg PO BID [facility] Last Admin: 04/26/19 08:26 Dose: 3.125 mg Colchicine (Colcrys*) 0.3 mg PO DAILY PRN PRN Reason: Gout Cyanocobalamin (Vitamin B12 Tab*) 1,000 mcg PO DAILY [facility] Last Admin: 04/26/19 08:27 Dose: 1,000 mcg Dextrose (Dextrose 50% Vial 50 Ml*) 12.5 ml IV PUSH .FOR FS < 60 - SS PRN PRN Reason: FS < 60 Last Admin: 04/25/19 16:10 Dose: 12.5 ml Gabapentin (Neurontin Cap(*)) 600 mg PO DAILY [facility] Last Admin: 04/26/19 08:27 Dose: Not Given Gabapentin (Neurontin Cap(*)) 1,200 mg PO BEDTIME [facility] Last Admin: 04/25/19 22:41 Dose: 1,200 mg Heparin Sodium (Porcine) (Heparin Vial(*)) 5,000 units SUBCUT Q12HR [facility] Last Admin: 04/26/19 08:26 Dose: 5,000 units Heparin Sodium (Porcine) (Heparin Flush Port (Ivad)) 5 ml FLUSH DAILY [facility]; Protocol Last Admin: 04/26/19 08:26 Dose: 5 ml Metronidazole/Sodium Chloride (Flagyl 250 Mg Ivpb*) 50 mls @ 50 mls/hr IVPB Q8H [facility] Last Admin: 04/26/19 08:48 Dose: 50 mls/hr Aztreonam 1 gm/ Sodium (Chloride) 50 mls @ 200 mls/hr IVPB Q8H [facility] Last Admin: 04/26/19 14:20 Dose: 200 mls/hr Furosemide 100 mg/ Sodium (Chloride) 100 mls @ 5 mls/hr IV Q20H [facility]; Protocol Vancomycin HCl 1,000 mg/ (Sodium Chloride) 250 mls @ 166.667 mls/hr IVPB Q24H [facility] Insulin Human Lispro (Humalog*) 0 units SUBCUT ACHS [facility]; Protocol Last Admin: 04/26/19 11:54 Dose: Not Given Loperamide HCl (Imodium Cap*) 4 mg PO DAILY PRN PRN Reason: LOOSE STOOLS Metolazone (Zaroxolyn Tab*) 5 mg PO DAILY@0830 [facility] Last Admin: 04/26/19 08:26 Dose: 5 mg Morphine Sulfate (Morphine Inj (Syringe))*) 2 mg IV Q4H PRN PRN Reason: PAIN - SEVERE Last Admin: 04/26/19 12:49 Dose: 2 mg Nitroglycerin (Nitroglycerin Tab 0.4 Mg*) 0.4 mg SL Q5M PRN PRN Reason: PAIN - CHEST Ondansetron HCl (Zofran Inj*) 4 mg IV Q6H PRN PRN Reason: NAUSEA Last Admin: 04/26/19 15:46 Dose: 4 mg Oxycodone HCl (Roxycodone Tab*) 5 mg PO Q6H PRN PRN Reason: Pain-MILD Pharmacy Consult (Vancomycin Per Pharmacy*) 1 note FOLLOW UP .VANC PER PHARMACY [facility]; Protocol Pharmacy Profile Note (Vancomycin Trough Check) 1 note FOLLOW UP 0600 ONE Stop: 04/28/19 06:01 Pramipexole Dihydrochloride (Mirapex Tab*) 0.5 mg PO BEDTIME [facility] Last Admin: 04/25/19 22:41 Dose: 0.5 mg Prochlorperazine (Compazine Tab*) 10 mg PO Q6H PRN PRN Reason: NAUSEA Last Admin: 04/26/19 12:49 Dose: 10 mg Sertraline HCl (Zoloft*) 50 mg PO DAILY [facility] Last Admin: 04/26/19 08:27 Dose: 50 mg Vitamin B Complex/Vitamin E (B Complex-50*) 1 tab PO DAILY [facility] Last Admin: 04/26/19 08:27 Dose: 1 tab Vital Signs - 8 hr 04/26/19 04/26/19 04/26/19 12:49 13:32 14:12 Temperature 97.5 F Pulse Rate 73 Respiratory 15 19 16 Rate Blood Pressure 130/57 (mmHg) O2 Sat by Pulse Oximetry 04/26/19 16:15 Temperature 97.7 F Pulse Rate 72 Respiratory 20 Rate Blood Pressure 124/62 (mmHg) O2 Sat by Pulse 90 Oximetry Oxygen Devices in Use Now: Nasal Cannula Appearance: awake, alert mild distress from pain and edema Ears/Nose/Mouth/Throat: NL Teeth, Lips, Gums, Mucous Membranes Moist Neck: Trachea Midline Respiratory: - - bibasilar crackles Cardiovascular: NL Sounds; No Murmurs; No JVD Abdominal: NL Sounds; No Tenderness; No Distention Neurological: Alert and Oriented x 3 Result Diagrams: 04/26/19 06:22 04/26/19 06:22 Additional Lab and Data: Lab Results 04/24/19 04/24/19 04/24/19 Range/Units 17:32 17:32 17:32 WBC 14.2 H (3.5-10.8) 10^3/uL RBC 4.28 (3.70-4.87) 10^6 /uL Hgb 9.7 L (12.0-16.0) g/dL Hct 33 L (35-47) % MCV 76 L (80-97) fL MCH 23 L (27-31) pg MCHC 30 L (31-36) g/dL RDW 22 H (10-15) % Plt Count 433 (150-450) 10^3/uL MPV 8.7 (7.4-10.4) fL Neut % (Auto) 85.6 % Lymph % (Auto) 6.6 % [place] % (Auto) 5.6 % Eos % (Auto) 0.9 % Baso % (Auto) 1.3 % Absolute Neuts (auto) 12.1 H (1.5-7.7) 10^3/ul Absolute Lymphs (auto) 0.9 L (1.0-4.8) 10^3/ul Absolute Monos (auto) 0.8 (0-0.8) 10^3/ul Absolute Eos (auto) 0.1 (0-0.6) 10^3/ul Absolute Basos (auto) 0.2 (0-0.2) 10^3/ul Absolute Nucleated RBC 0.0 10^3/ul Nucleated RBC % 0.3 INR (Anticoag Therapy) 1.12 H (0.82-1.09) Sodium 130 L (135-145) mmol/L Potassium 4.7 (3.5-5.0) mmol/L Chloride 95 L (101-111) mmol/L Carbon Dioxide 29 (22-32) mmol/L Anion Gap 6 (2-11) mmol/L BUN 36 H (6-24) mg/dL Creatinine 2.22 H (0.51-0.95) mg/dL Est GFR ( Amer) 27.5 (>60) Est GFR (Non-Af Amer) 22.7 (>60) BUN/Creatinine Ratio 16.2 (8-20) Glucose 484 H (70-100) mg/dL Lactic Acid (0.5-2.0) mmol/L Calcium 8.5 L (8.6-10.3) mg/dL Total Bilirubin 0.60 (0.2-1.0) mg/dL AST 10 L (13-39) U/L ALT 7 (7-52) U/L Alkaline Phosphatase 253 H (34-104) U/L Troponin I 0.29 H* (<0.04) ng/mL C-Reactive Protein 50.47 H (<8.01) mg/L B-Natriuretic Peptide (<=100) pg/mL Total Protein 5.6 L (6.4-8.9) g/dL Albumin 2.5 L (3.2-5.2) g/dL Globulin 3.1 (2-4) g/dL Albumin/Globulin Ratio 0.8 L (1-3) Urine Color Urine Appearance Urine pH (5-9) Ur Specific [place] (1.010-1.030) Urine Protein (Negative) Urine Ketones (Negative) Urine Blood (Negative) Urine Nitrate (Negative) Urine Bilirubin (Negative) Urine Urobilinogen (Negative) Ur Leukocyte Esterase (Negative) Urine WBC (Auto) (Absent) Urine RBC (Auto) (Absent) Urine Bacteria (Absent) Urine Glucose (Negative) 04/24/19 04/24/19 04/24/19 Range/Units 17:32 17:32 18:25 WBC (3.5-10.8) 10^3/uL RBC (3.70-4.87) 10^6 /uL Hgb (12.0-16.0) g/dL Hct (35-47) % MCV (80-97) fL MCH (27-31) pg MCHC (31-36) g/dL RDW (10-15) % Plt Count (150-450) 10^3/uL MPV (7.4-10.4) fL Neut % (Auto) % Lymph % (Auto) % [place] % (Auto) % Eos % (Auto) % Baso % (Auto) % Absolute Neuts (auto) (1.5-7.7) 10^3/ul Absolute Lymphs (auto) (1.0-4.8) 10^3/ul Absolute Monos (auto) (0-0.8) 10^3/ul Absolute Eos (auto) (0-0.6) 10^3/ul Absolute Basos (auto) (0-0.2) 10^3/ul Absolute Nucleated RBC 10^3/ul Nucleated RBC % INR (Anticoag Therapy) (0.82-1.09) Sodium (135-145) mmol/L Potassium (3.5-5.0) mmol/L Chloride (101-111) mmol/L Carbon Dioxide (22-32) mmol/L Anion Gap (2-11) mmol/L BUN (6-24) mg/dL Creatinine (0.51-0.95) mg/dL Est GFR ( Amer) (>60) Est GFR (Non-Af Amer) (>60) BUN/Creatinine Ratio (8-20) Glucose (70-100) mg/dL Lactic Acid 1.2 (0.5-2.0) mmol/L Calcium (8.6-10.3) mg/dL Total Bilirubin (0.2-1.0) mg/dL AST (13-39) U/L ALT (7-52) U/L Alkaline Phosphatase (34-104) U/L Troponin I (<0.04) ng/mL C-Reactive Protein (<8.01) mg/L B-Natriuretic Peptide > 1300 H (<=100) pg/mL Total Protein (6.4-8.9) g/dL Albumin (3.2-5.2) g/dL Globulin (2-4) g/dL Albumin/Globulin Ratio (1-3) Urine Color Yellow Urine Appearance Clear Urine pH 6.0 (5-9) Ur Specific [place] 1.012 (1.010-1.030) Urine Protein 2+(100 mg/dl) A (Negative) Urine Ketones Negative (Negative) Urine Blood 1+ A (Negative) Urine Nitrate Negative (Negative) Urine Bilirubin Negative (Negative) Urine Urobilinogen Negative (Negative) Ur Leukocyte Esterase Negative (Negative) Urine WBC (Auto) 3+(>20/hpf) A (Absent) Urine RBC (Auto) 1+(3-5/hpf) A (Absent) Urine Bacteria 1+ A (Absent) Urine Glucose 3+(>=500 mg/dl) A (Negative) Microbiology and Other Data: Microbiology 04/24/19 18:25 Urine Culture - Preliminary Urine Strep Group B Citrobacter Freundii 04/25/19 01:55 Skin and Soft Tissue MRSA/MSSA (PCR - Final Leg Right Mrsa Negative S.aureus Positive Gram Stain - Final 04/25/19 01:55 Nasal Screen MRSA (PCR) - Final Nasal Mrsa Not Detected Diagnostic Imaging: Exam Date: 04/14/19 - VL ANK/BRACHIAL INDICES Ankle-brachial indices: Right: Value (SBP) Index Brachial: 153 Posterior tibialis: 171 1.07 Dorsalis pedis: 161 1.01 Digit: 158 0.99 Doppler waveforms (acquired at rest): In the interrogated lower extremity arteries, Doppler waveforms are triphasic in the right lower extremity. Volume pulse recordings (acquired at rest): Volume pulse recordings, measured at the right ankle, measures 31 mm. IMPRESSION: No evidence of claudication or significant arterial insufficiency in the right lower extremity by vascular ultrasound FAY standards. Assess/Plan/Problems-Billing Assessment: - Patient Problems (1) Ulcer of right lower leg Current Visit: Yes Status: Acute Code(s): L97.919 - NON-PRS CHRONIC ULC UNSP PRT OF R LOW LEG W UNSP SEVERITY SNOMED Code(s): 606774396 Comment: - Suspect secondary to diabetic and venous stasis - Wound care appreciated. Culture positive for Staph negative MRSA and Klebseilla oxytoca - Conitnue azactam. flagyl and vanco pending final sensitivities (2) Acute on chronic systolic (congestive) heart failure Current Visit: No Status: Acute Priority: High Code(s): I50.23 - ACUTE ON CHRONIC SYSTOLIC (CONGESTIVE) HEART FAILURE SNOMED Code(s): 164027008 Comment: - Poor repsonse to her lasix bolus. Will place her on lasix drip 5 mg/hr and will adjust in am. goal to have about 4-5 liter in 2hrs. - continue her zaroxylen 5 mg daily - monitor weight and output (3) CKD (chronic kidney disease) Current Visit: No Status: Acute Code(s): N18.9 - CHRONIC KIDNEY DISEASE, UNSPECIFIED SNOMED Code(s): 938858024 Comment: - Continue diuresis and follow closely - Creatinine 2.1. check bmp daily (4) Uncontrolled type II diabetes mellitus Current Visit: No Status: Acute Code(s): E11.65 - TYPE 2 DIABETES MELLITUS WITH HYPERGLYCEMIA SNOMED Code(s): 825605577 Comment: - hypogylcemia 04/25/19 afternoon. I did discontinue her lantus and lispro 10 AC and will continue with SS only. BG was 47 given am one amp of D50 and - today 04/26/19 BG still low but better than yesterday. Will keep her only on SS with coverage (5) DVT prophylaxis Current Visit: No Status: Acute Priority: Low Code(s): WSJ1062 - SNOMED Code(s): 365815369 Comment: SQ heparin Status and Disposition: palliative care consult, pending hospice referral
[2019-04-26] MEDS ORDERED: Furosemide IV* 10 MG/ML VIAL (40 MG) IV ONE (18:00)
[2019-04-26] MEDS: ALPRAZolam TAB* 0.25 MG PO PRN (21:01)
[2019-04-26] MEDS: Pramipexole TAB* 0.5 MG PO SCH (21:01)
[2019-04-26] MEDS: Gabapentin CAP(*) 400 MG PO SCH (21:01)
[2019-04-27] MEDS: metroNIDAZOLE IV 250 MG/50ML* 50 ML IVPB SCH ×4 (00:18→22:29)
[2019-04-27] MEDS: Morphine INJ* 2 MG/ML 1 ML SYRINGE (TWO MG - NEW SYRINGE VERSION) IV PRN ×4 (00:19→20:19)
[2019-04-27] MEDS: Vancomycin(*) 1,000 MG in NS 0.9% 250 ML* 250 ML IVPB SCH (05:34)
[2019-04-27 05:58] LABS: ABS Basophils 0.1 10^3/ul (0-0.2); ABS Eosinophils 0.2 10^3/ul (0-0.6); ABS Lymphocytes 0.8 10^3/ul (1.0-4.8); ABS Monocytes 0.7 10^3/ul (0-0.8); ABS Neutrophils 7.7 10^3/ul (1.5-7.7); Eosinophil % 1.9 %; Hematocrit 29 % (35-47); Hemoglobin 8.6 g/dL (12.0-16.0); Mean Corpuscular HGB Conc 29 g/dL (31-36); Mean Corpuscular Hemoglobin 22 pg (27-31); Mean Corpuscular Volume 76 fL (80-97); Mean Platelet Volume 8.6 fL (7.4-10.4); Nucleated Red Blood Cells % 0.4; Platelet Count 395 10^3/uL (150-450); Red Blood Count 3.85 10^6 /uL (3.70-4.87); Red Cell Distribution Width 21 % (10-15); White Blood Count 9.4 10^3/uL (3.5-10.8)
[2019-04-27] MEDS: ALPRAZolam TAB* 0.25 MG PO PRN ×2 (06:00→13:46)
[2019-04-27 06:17] LABS: BUN/Creatinine Ratio 19.6 (8-20); EGFR African American 27.2 (>60); EGFR Non-African American 22.5 (>60); Magnesium 2.2 mg/dL (1.9-2.7); Phosphorus 5.5 mg/dL (2.5-5.0); Potassium 4.6 mmol/L (3.5-5.0)
[2019-04-27] MEDS: Gabapentin CAP(*) 300 MG PO SCH ×2 (08:04→08:14)
[2019-04-27] MEDS: Aztreonam (*) 1 GM in NS 0.9% 50 ML* 50 ML IVPB SCH ×3 (08:04→22:14)
[2019-04-27] MEDS: Carvedilol TAB* 3.125 MG PO SCH ×2 (08:05→22:15)
[2019-04-27] MEDS: Heparin VIAL(*) 5000 UNITS/ML VIAL (FIVE THOUSAND) SUBCUT SCH ×2 (08:05→23:06)
[2019-04-27] MEDS: Metolazone TAB* 5 MG PO SCH (08:05)
[2019-04-27] MEDS: Aspirin EC TAB* 81 MG TAB.EC PO SCH (08:05)
[2019-04-27] MEDS: Vitamin B Complex TAB PO SCH (08:05)
[2019-04-27] MEDS: Cyanocobalamin TAB* 500 MCG PO SCH (08:05)
[2019-04-27] MEDS: Sertraline* 50 MG TAB PO SCH (08:05)
[2019-04-27] MEDS: Insulin LISPRO* 1 UNITS UNIT SUBCUT SCH ×4 (08:07→23:06)
[2019-04-27] MEDS ORDERED: Furosemide IV* 100 MG in NS 0.9% 100 ML* 90 ML IV SCH (11:50)
--- NOTE | 2019-04-27 12:39 | PN ---
Subjective Date of Service: 04/27/19 Interval History: patient seen today, Tolerating lasix drip well. Urine output about 100 ml/hr. I will increase to 8 mg/hr today. Will continue for at least 48 hrs and will titrate to maintain urine output 150-200/ml per hour for 2hrs and readjust to facilitate and mobilize her fluid. I spoke to surgeon Dr. Springer for wound clinic for evaluation for possible debridment. no fever. she is more awake and alert Past Medical History: Unchanged from Admission Objective Active Medications: Acetaminophen (Tylenol Tab*) 650 mg PO Q6H PRN PRN Reason: FEVER/PAIN Albuterol/Ipratropium (Duoneb (Albuterol 2.5 Mg/Ipratropium 0.5 Mg)) 1 neb INH Q4H PRN PRN Reason: SHORTNESS OF BREATH Alprazolam (Xanax Tab*) 0.25 mg PO Q8H PRN PRN Reason: ANXIETY Last Admin: 04/27/19 06:00 Dose: 0.25 mg Aspirin (Aspirin Ec Tab*) 81 mg PO DAILY [facility] Last Admin: 04/27/19 08:05 Dose: 81 mg Carvedilol (Coreg Tab*) 3.125 mg PO BID [facility] Last Admin: 04/27/19 08:05 Dose: 3.125 mg Colchicine (Colcrys*) 0.3 mg PO DAILY PRN PRN Reason: Gout Cyanocobalamin (Vitamin B12 Tab*) 1,000 mcg PO DAILY [facility] Last Admin: 04/27/19 08:05 Dose: 1,000 mcg Dextrose (Dextrose 50% Vial 50 Ml*) 12.5 ml IV PUSH .FOR FS < 60 - SS PRN PRN Reason: FS < 60 Last Admin: 04/25/19 16:10 Dose: 12.5 ml Gabapentin (Neurontin Cap(*)) 1,200 mg PO BEDTIME [facility] Last Admin: 04/26/19 21:01 Dose: 1,200 mg Heparin Sodium (Porcine) (Heparin Vial(*)) 5,000 units SUBCUT Q12HR [facility] Last Admin: 04/27/19 08:05 Dose: 5,000 units Heparin Sodium (Porcine) (Heparin Flush Port (Ivad)) 5 ml FLUSH DAILY [facility]; Protocol Last Admin: 04/27/19 08:12 Dose: Not Given Metronidazole/Sodium Chloride (Flagyl 250 Mg Ivpb*) 50 mls @ 50 mls/hr IVPB Q8H [facility] Last Admin: 04/27/19 09:02 Dose: 50 mls/hr Aztreonam 1 gm/ Sodium (Chloride) 50 mls @ 200 mls/hr IVPB Q8H [facility] Last Admin: 04/27/19 08:04 Dose: 200 mls/hr Vancomycin HCl 1,000 mg/ (Sodium Chloride) 250 mls @ 166.667 mls/hr IVPB Q24H [facility] Last Admin: 04/27/19 05:34 Dose: 166.667 mls/hr Furosemide 100 mg/ Sodium (Chloride) 100 mls @ 8 mls/hr IV PER RATE [facility]; Protocol Insulin Human Lispro (Humalog*) 0 units SUBCUT ACHS [facility]; Protocol Last Admin: 04/27/19 12:18 Dose: 3 unit Loperamide HCl (Imodium Cap*) 4 mg PO DAILY PRN PRN Reason: LOOSE STOOLS Metolazone (Zaroxolyn Tab*) 5 mg PO DAILY@0830 [facility] Last Admin: 04/27/19 08:05 Dose: 5 mg Morphine Sulfate (Morphine Inj (Syringe))*) 2 mg IV Q4H PRN PRN Reason: PAIN - SEVERE Last Admin: 04/27/19 12:09 Dose: 2 mg Nitroglycerin (Nitroglycerin Tab 0.4 Mg*) 0.4 mg SL Q5M PRN PRN Reason: PAIN - CHEST Ondansetron HCl (Zofran Inj*) 4 mg IV Q6H PRN PRN Reason: NAUSEA Last Admin: 04/26/19 15:46 Dose: 4 mg Oxycodone HCl (Roxycodone Tab*) 5 mg PO Q6H PRN PRN Reason: Pain-MILD Pharmacy Consult (Vancomycin Per Pharmacy*) 1 note FOLLOW UP .VANC PER PHARMACY [facility]; Protocol Pharmacy Profile Note (Vancomycin Trough Check) 1 note FOLLOW UP 0600 ONE Stop: 04/28/19 06:01 Pramipexole Dihydrochloride (Mirapex Tab*) 0.5 mg PO BEDTIME [facility] Last Admin: 04/26/19 21:01 Dose: 0.5 mg Prochlorperazine (Compazine Tab*) 10 mg PO Q6H PRN PRN Reason: NAUSEA Last Admin: 04/26/19 12:49 Dose: 10 mg Sertraline HCl (Zoloft*) 50 mg PO DAILY [facility] Last Admin: 04/27/19 08:05 Dose: 50 mg Vitamin B Complex/Vitamin E (B Complex-50*) 1 tab PO DAILY [facility] Last Admin: 04/27/19 08:05 Dose: 1 tab Vital Signs - 8 hr 04/27/19 04/27/19 04/27/19 05:57 06:00 07:21 Temperature 97.4 F Pulse Rate 70 Respiratory 18 18 16 Rate Blood Pressure 130/71 (mmHg) O2 Sat by Pulse 92 Oximetry 04/27/19 04/27/19 04/27/19 08:00 08:06 12:00 Temperature 97.7 F Pulse Rate 71 Respiratory 16 16 20 Rate Blood Pressure 136/65 (mmHg) O2 Sat by Pulse 92 Oximetry 04/27/19 12:09 Temperature Pulse Rate Respiratory 16 Rate Blood Pressure (mmHg) O2 Sat by Pulse Oximetry Oxygen Devices in Use Now: Nasal Cannula Appearance: Awake, alert no distress Eyes: No Scleral Icterus, - - EOMI Ears/Nose/Mouth/Throat: Clear Oropharnyx, Mucous Membranes Moist Neck: Trachea Midline Respiratory: - - bibasilar crackles Cardiovascular: NL Sounds; No Murmurs; No JVD Abdominal: NL Sounds; No Tenderness; No Distention Extremities: - - + 3 edema, improved now on the lasix drip. Right leg ulcer with several open ulcers within the ulcer. green secretions. Neurological: Alert and Oriented x 3 Result Diagrams: 04/27/19 05:35 04/27/19 05:35 Additional Lab and Data: Lab Results 04/24/19 04/24/19 04/24/19 Range/Units 17:32 17:32 17:32 WBC 14.2 H (3.5-10.8) 10^3/uL RBC 4.28 (3.70-4.87) 10^6 /uL Hgb 9.7 L (12.0-16.0) g/dL Hct 33 L (35-47) % MCV 76 L (80-97) fL MCH 23 L (27-31) pg MCHC 30 L (31-36) g/dL RDW 22 H (10-15) % Plt Count 433 (150-450) 10^3/uL MPV 8.7 (7.4-10.4) fL Neut % (Auto) 85.6 % Lymph % (Auto) 6.6 % [place] % (Auto) 5.6 % Eos % (Auto) 0.9 % Baso % (Auto) 1.3 % Absolute Neuts (auto) 12.1 H (1.5-7.7) 10^3/ul Absolute Lymphs (auto) 0.9 L (1.0-4.8) 10^3/ul Absolute Monos (auto) 0.8 (0-0.8) 10^3/ul Absolute Eos (auto) 0.1 (0-0.6) 10^3/ul Absolute Basos (auto) 0.2 (0-0.2) 10^3/ul Absolute Nucleated RBC 0.0 10^3/ul Nucleated RBC % 0.3 INR (Anticoag Therapy) 1.12 H (0.82-1.09) Sodium 130 L (135-145) mmol/L Potassium 4.7 (3.5-5.0) mmol/L Chloride 95 L (101-111) mmol/L Carbon Dioxide 29 (22-32) mmol/L Anion Gap 6 (2-11) mmol/L BUN 36 H (6-24) mg/dL Creatinine 2.22 H (0.51-0.95) mg/dL Est GFR ( Amer) 27.5 (>60) Est GFR (Non-Af Amer) 22.7 (>60) BUN/Creatinine Ratio 16.2 (8-20) Glucose 484 H (70-100) mg/dL Lactic Acid (0.5-2.0) mmol/L Calcium 8.5 L (8.6-10.3) mg/dL Total Bilirubin 0.60 (0.2-1.0) mg/dL AST 10 L (13-39) U/L ALT 7 (7-52) U/L Alkaline Phosphatase 253 H (34-104) U/L Troponin I 0.29 H* (<0.04) ng/mL C-Reactive Protein 50.47 H (<8.01) mg/L B-Natriuretic Peptide (<=100) pg/mL Total Protein 5.6 L (6.4-8.9) g/dL Albumin 2.5 L (3.2-5.2) g/dL Globulin 3.1 (2-4) g/dL Albumin/Globulin Ratio 0.8 L (1-3) Urine Color Urine Appearance Urine pH (5-9) Ur Specific [place] (1.010-1.030) Urine Protein (Negative) Urine Ketones (Negative) Urine Blood (Negative) Urine Nitrate (Negative) Urine Bilirubin (Negative) Urine Urobilinogen (Negative) Ur Leukocyte Esterase (Negative) Urine WBC (Auto) (Absent) Urine RBC (Auto) (Absent) Urine Bacteria (Absent) Urine Glucose (Negative) 04/24/19 04/24/19 04/24/19 Range/Units 17:32 17:32 18:25 WBC (3.5-10.8) 10^3/uL RBC (3.70-4.87) 10^6 /uL Hgb (12.0-16.0) g/dL Hct (35-47) % MCV (80-97) fL MCH (27-31) pg MCHC (31-36) g/dL RDW (10-15) % Plt Count (150-450) 10^3/uL MPV (7.4-10.4) fL Neut % (Auto) % Lymph % (Auto) % [place] % (Auto) % Eos % (Auto) % Baso % (Auto) % Absolute Neuts (auto) (1.5-7.7) 10^3/ul Absolute Lymphs (auto) (1.0-4.8) 10^3/ul Absolute Monos (auto) (0-0.8) 10^3/ul Absolute Eos (auto) (0-0.6) 10^3/ul Absolute Basos (auto) (0-0.2) 10^3/ul Absolute Nucleated RBC 10^3/ul Nucleated RBC % INR (Anticoag Therapy) (0.82-1.09) Sodium (135-145) mmol/L Potassium (3.5-5.0) mmol/L Chloride (101-111) mmol/L Carbon Dioxide (22-32) mmol/L Anion Gap (2-11) mmol/L BUN (6-24) mg/dL Creatinine (0.51-0.95) mg/dL Est GFR ( Amer) (>60) Est GFR (Non-Af Amer) (>60) BUN/Creatinine Ratio (8-20) Glucose (70-100) mg/dL Lactic Acid 1.2 (0.5-2.0) mmol/L Calcium (8.6-10.3) mg/dL Total Bilirubin (0.2-1.0) mg/dL AST (13-39) U/L ALT (7-52) U/L Alkaline Phosphatase (34-104) U/L Troponin I (<0.04) ng/mL C-Reactive Protein (<8.01) mg/L B-Natriuretic Peptide > 1300 H (<=100) pg/mL Total Protein (6.4-8.9) g/dL Albumin (3.2-5.2) g/dL Globulin (2-4) g/dL Albumin/Globulin Ratio (1-3) Urine Color Yellow Urine Appearance Clear Urine pH 6.0 (5-9) Ur Specific [place] 1.012 (1.010-1.030) Urine Protein 2+(100 mg/dl) A (Negative) Urine Ketones Negative (Negative) Urine Blood 1+ A (Negative) Urine Nitrate Negative (Negative) Urine Bilirubin Negative (Negative) Urine Urobilinogen Negative (Negative) Ur Leukocyte Esterase Negative (Negative) Urine WBC (Auto) 3+(>20/hpf) A (Absent) Urine RBC (Auto) 1+(3-5/hpf) A (Absent) Urine Bacteria 1+ A (Absent) Urine Glucose 3+(>=500 mg/dl) A (Negative) Microbiology and Other Data: Microbiology 04/24/19 18:25 Urine Culture - Preliminary Urine Strep Group B Citrobacter Freundii 04/25/19 01:55 Skin and Soft Tissue MRSA/MSSA (PCR - Final Leg Right Mrsa Negative S.aureus Positive Gram Stain - Final 04/25/19 01:55 Nasal Screen MRSA (PCR) - Final Nasal Mrsa Not Detected Diagnostic Imaging: Exam Date: 04/14/19 - VL ANK/BRACHIAL INDICES Ankle-brachial indices: Right: Value (SBP) Index Brachial: 153 Posterior tibialis: 171 1.07 Dorsalis pedis: 161 1.01 Digit: 158 0.99 Doppler waveforms (acquired at rest): In the interrogated lower extremity arteries, Doppler waveforms are triphasic in the right lower extremity. Volume pulse recordings (acquired at rest): Volume pulse recordings, measured at the right ankle, measures 31 mm. IMPRESSION: No evidence of claudication or significant arterial insufficiency in the right lower extremity by vascular ultrasound FAY standards. Assess/Plan/Problems-Billing Assessment: - Patient Problems (1) Ulcer of right lower leg Current Visit: Yes Status: Acute Code(s): L97.919 - NON-PRS CHRONIC ULC UNSP PRT OF R LOW LEG W UNSP SEVERITY SNOMED Code(s): 665527135 Comment: - Suspect secondary to diabetic and venous stasis - Wound care appreciated. Culture positive for Staph negative MRSA and Klebseilla oxytoca - Conitnue azactam. flagyl and vanco pending final sensitivities - I did call surgery Dr. Springer to assess if she benefit from debridement. She can not have MRI of leg to rule out osteomyelitis given her Pacemaker (2) Acute on chronic systolic (congestive) heart failure Current Visit: No Status: Acute Priority: High Code(s): I50.23 - ACUTE ON CHRONIC SYSTOLIC (CONGESTIVE) HEART FAILURE SNOMED Code(s): 687395673 Comment: - Poor repsonse to her lasix bolus. - Echo 04/24/19 reveal EF 35%, diffuse hypokinesis and moderate size left pleural effusion - I started her on lasix drip 5 mg/hr on 04/26/19. She remains same weight and her output is about 100ml/hr, I will increase it to 8mg/hr today. will adjust in am. goal to have about 4-5 liter in 24hrs. continue her zaroxylen 5 mg daily - monitor weight and output. Recheck CXR in am (3) CKD (chronic kidney disease) Current Visit: No Status: Acute Code(s): N18.9 - CHRONIC KIDNEY DISEASE, UNSPECIFIED SNOMED Code(s): 240527589 Comment: - Continue diuresis and follow closely - Creatinine 2.1. check bmp daily (4) Uncontrolled type II diabetes mellitus Current Visit: No Status: Acute Code(s): E11.65 - TYPE 2 DIABETES MELLITUS WITH HYPERGLYCEMIA SNOMED Code(s): 041921044 Comment: - hypogylcemia 04/25/19 afternoon. I did discontinue her lantus and lispro 10 AC and will continue with SS only. BG was 47 given am one amp of D50 and - today 04/27/19 BG still low but better than yesterday. Will keep her only on SS with coverage (5) CAD (coronary artery disease) Current Visit: No Status: Chronic Code(s): I25.10 - ATHSCL HEART DISEASE OF [place] CORONARY ARTERY W/O ANG PCTRS SNOMED Code(s): 31492562 Comment: - Continue coreg 3.15 mg bid, ASA 81 mg daily, and will resume her lipitor once her home medicaiton updated. (6) COPD (chronic obstructive pulmonary disease) Current Visit: No Status: Chronic Code(s): J44.9 - CHRONIC OBSTRUCTIVE PULMONARY DISEASE, UNSPECIFIED SNOMED Code(s): 45619585 Comment: - Contiue spiriva and dulera once home meds updated. (7) HLD (hyperlipidemia) Current Visit: No Status: Chronic Code(s): E78.5 - HYPERLIPIDEMIA, UNSPECIFIED SNOMED Code(s): 41688115 Comment: - Continue lipitor once home meds updated. (8) HTN (hypertension) Current Visit: No Status: Chronic Onset Date: 06/23/14 Code(s): I10 - ESSENTIAL (PRIMARY) HYPERTENSION SNOMED Code(s): 68493149 Comment: - Continue coreg 3.125 mg bid - Now on lasix drip will monitor for hypotension (9) Peripheral vascular disease Current Visit: No Status: Chronic Code(s): I73.9 - PERIPHERAL VASCULAR DISEASE, UNSPECIFIED SNOMED Code(s): [id number] Comment: - Continue ASA and lipitor once home med updated - FAY 04/14/19 no significant stenosis. - Continue gabapentin 1200 mg HS (10) DVT prophylaxis Current Visit: No Status: Acute Priority: Low Code(s): [id number] - SNOMED Code(s): [id number] Comment: SQ heparin Status and Disposition: palliative care consult, pending hospice referral
[2019-04-27] MEDS: Ondansetron INJ* 2 MG/ML VIAL IV PRN (14:07)
--- NOTE | 2019-04-27 16:25 | PN ---
Progress Note - Progress Note Date of Service: 04/27/19 SOAP: Subjective: [] chronic right le wound, seen in wound clinic, here for chf/edema Objective: [] approx 7cm wound with fibrinous exudate, no significant le edema Assessment: [] chronic wound, stable, no debridement at this time, [] Plan: abx, calcim alginate dressing, change daily Plan:
--- NOTE | 2019-04-27 16:26 | PN ---
Progress Note - Progress Note Date of Service: 04/27/19 Note: Came to evaluate this very pleasant patient as she had requested consideration of hospice enrolment. The patient has very poorly controlled DM (HbA1c= 17.0!) and panvasculopathy, but her EF on current ECHO is 35-40%, and her CKD is not yet at a level appropriate for hospice. She is at risk for sepsis, but this is not a current diagnosis. She has been receiving VNS services for her PVD/ diabetic wounds, and I would recommend she continue with this service if she goes home, along with enrolment in the [facility]NS [facility] program. If she is placed in a SNF, she may improve with stricter dietary adherence and cessation of smoking.
[2019-04-27 18:32] LABS: Albumin 2.2 g/dL (3.2-5.2); BUN/Creatinine Ratio 19.5 (8-20); EGFR African American 26.2 (>60); EGFR Non-African American 21.7 (>60); Potassium 4.7 mmol/L (3.5-5.0)
[2019-04-27] MEDS ORDERED: Furosemide IV* 10 MG/ML 10 ML VIAL (100 MG) ONE (21:55)
[2019-04-27] MEDS: Pramipexole TAB* 0.5 MG PO SCH (22:15)
[2019-04-27] MEDS: Gabapentin CAP(*) 400 MG PO SCH (22:15)
[2019-04-27] MEDS: Furosemide IV* 100 MG in NS 0.9% 100 ML* 90 ML IV SCH (22:23)
[2019-04-28] MEDS: Morphine INJ* 2 MG/ML 1 ML SYRINGE (TWO MG - NEW SYRINGE VERSION) IV PRN ×3 (03:17→19:20)
[2019-04-28] MEDS: Vancomycin(*) 1,000 MG in NS 0.9% 250 ML* 250 ML IVPB SCH (05:48)
[2019-04-28] MEDS ORDERED: Vancomycin Trough Check NOTE FOLLOW UP ONE (06:00)
[2019-04-28 06:49] LABS: Albumin 2.2 g/dL (3.2-5.2); Albumin/Globulin Ratio 0.8 (1-3); BUN/Creatinine Ratio 20.5 (8-20); C Reactive Protein 28.05 mg/L (<8.01); Calcium 7.9 mg/dL (8.6-10.3); EGFR African American 25.2 (>60); EGFR Non-African American 20.8 (>60); Globulin 2.7 g/dL (2-4); Indirect Bilirubin 0.2 mg/dL (0.3-1.0); Potassium 4.4 mmol/L (3.5-5.0); Total Bilirubin 0.3 mg/dL (0.2-1.0); Total Protein 4.9 g/dL (6.4-8.9)
[2019-04-28 06:53] LABS: ABS Basophils 0.2 10^3/ul (0-0.2); ABS Eosinophils 0.3 10^3/ul (0-0.6); ABS Neutrophils 7.6 10^3/ul (1.5-7.7); Eosinophil % 2.6 %; Hematocrit 30 % (35-47); Hemoglobin 8.4 g/dL (12.0-16.0); Lymphocyte % 9.6 %; Mean Corpuscular HGB Conc 28 g/dL (31-36); Mean Corpuscular Hemoglobin 21 pg (27-31); Mean Corpuscular Volume 76 fL (80-97); Mean Platelet Volume 8.7 fL (7.4-10.4); Nucleated Red Blood Cells % 0.3; Platelet Count 433 10^3/uL (150-450); Red Blood Count 3.93 10^6 /uL (3.70-4.87); Red Cell Distribution Width 21 % (10-15); White Blood Count 9.9 10^3/uL (3.5-10.8)
[2019-04-28] MEDS: Aztreonam (*) 1 GM in NS 0.9% 50 ML* 50 ML IVPB SCH ×3 (07:26→21:06)
[2019-04-28] MEDS: Furosemide IV* 100 MG in NS 0.9% 100 ML* 90 ML IV SCH ×2 (08:06→18:03)
[2019-04-28] MEDS: metroNIDAZOLE IV 250 MG/50ML* 50 ML IVPB SCH ×3 (08:06→22:11)
[2019-04-28 09:15] LABS: Erythrocyte Sed Rate 52 mm/Hr (0-29)
[2019-04-28] MEDS: Insulin LISPRO* 1 UNITS UNIT SUBCUT SCH ×4 (09:19→21:02)
[2019-04-28] MEDS: Aspirin EC TAB* 81 MG TAB.EC PO SCH (09:20)
[2019-04-28] MEDS: Cyanocobalamin TAB* 500 MCG PO SCH (09:20)
[2019-04-28] MEDS: Vitamin B Complex TAB PO SCH (09:20)
[2019-04-28] MEDS: Heparin VIAL(*) 5000 UNITS/ML VIAL (FIVE THOUSAND) SUBCUT SCH ×2 (09:20→20:29)
[2019-04-28] MEDS: Carvedilol TAB* 3.125 MG PO SCH ×2 (09:20→20:28)
[2019-04-28] MEDS: Sertraline* 50 MG TAB PO SCH (09:20)
[2019-04-28] MEDS: Metolazone TAB* 5 MG PO SCH (09:21)
--- NOTE | 2019-04-28 09:34 | PN ---
Progress Note - Progress Note Date of Service: 04/28/19 SOAP: Subjective: [] no wound complaints Objective: []stable RLE wound Assessment: []RLE chronic wound Plan: []cont dressing changes
[2019-04-28] MEDS: ALPRAZolam TAB* 0.25 MG PO PRN (10:38)
[2019-04-28] MEDS: Albumin Human 25%* 25 GM/100 ML BTL IV SCH ×3 (11:38→23:40)
[2019-04-28] MEDS ORDERED: Polyethylene Glycol 3350* 17 GM PACKET PO PRN (12:12)
--- NOTE | 2019-04-28 16:30 | PN ---
Subjective Date of Service: 04/28/19 Interval History: patient awake, more alert. complaining of some pain but lessened when compared to her pain form admission. She is more awake and alert. no Bowel movement since admission. Abdominal distention. CT scan shows no obstruction but increase stool content. Her BUN and Creatinine increase as expected with the lasix drip. However urine output plateaued mainly due to low albumin and extravagation of fluid. Past Medical History: Unchanged from Admission Objective Active Medications: Acetaminophen (Tylenol Tab*) 650 mg PO Q6H PRN PRN Reason: FEVER/PAIN Albuterol/Ipratropium (Duoneb (Albuterol 2.5 Mg/Ipratropium 0.5 Mg)) 1 neb INH Q4H PRN PRN Reason: SHORTNESS OF BREATH Alprazolam (Xanax Tab*) 0.25 mg PO Q8H PRN PRN Reason: ANXIETY Last Admin: 04/28/19 10:38 Dose: 0.25 mg Aspirin (Aspirin Ec Tab*) 81 mg PO DAILY [facility] Last Admin: 04/28/19 09:20 Dose: 81 mg Carvedilol (Coreg Tab*) 3.125 mg PO BID [place] Last Admin: 04/28/19 09:20 Dose: 3.125 mg Colchicine (Colcrys*) 0.3 mg PO DAILY PRN PRN Reason: Gout Cyanocobalamin (Vitamin B12 Tab*) 1,000 mcg PO DAILY [facility] Last Admin: 04/28/19 09:20 Dose: 1,000 mcg Dextrose (Dextrose 50% Vial 50 Ml*) 12.5 ml IV PUSH .FOR FS < 60 - SS PRN PRN Reason: FS < 60 Last Admin: 04/25/19 16:10 Dose: 12.5 ml Gabapentin (Neurontin Cap(*)) 1,200 mg PO BEDTIME [facility] Last Admin: 04/27/19 22:15 Dose: 1,200 mg Heparin Sodium (Porcine) (Heparin Vial(*)) 5,000 units SUBCUT Q12HR [place] Last Admin: 04/28/19 09:20 Dose: 5,000 units Heparin Sodium (Porcine) (Heparin Flush Port (Ivad)) 5 ml FLUSH DAILY [facility]; Protocol Last Admin: 04/28/19 09:20 Dose: Not Given Metronidazole/Sodium Chloride (Flagyl 250 Mg Ivpb*) 50 mls @ 50 mls/hr IVPB Q8H [facility] Last Admin: 04/28/19 16:21 Dose: 50 mls/hr Aztreonam 1 gm/ Sodium (Chloride) 50 mls @ 200 mls/hr IVPB Q8H [facility] Last Admin: 04/28/19 13:58 Dose: 200 mls/hr Vancomycin HCl 1,000 mg/ (Sodium Chloride) 250 mls @ 166.667 mls/hr IVPB Q24H [facility] Last Admin: 04/28/19 05:48 Dose: 166.667 mls/hr Furosemide 100 mg/ Sodium (Chloride) 100 mls @ 10 mls/hr IV Q10H [facility]; Protocol Last Admin: 04/28/19 08:06 Dose: 10 mls/hr Albumin Human (Albumin Human 25%*) 25 gm in 100 mls @ 100 mls/hr IV Q6HR [facility] Stop: 04/29/19 06:59 Last Admin: 04/28/19 11:38 Dose: 100 mls/hr Insulin Human Lispro (Humalog*) 0 units SUBCUT ACHS [facility]; Protocol Last Admin: 04/28/19 11:41 Dose: Not Given Loperamide HCl (Imodium Cap*) 4 mg PO DAILY PRN PRN Reason: LOOSE STOOLS Metolazone (Zaroxolyn Tab*) 5 mg PO DAILY@0830 [facility] Last Admin: 04/28/19 09:21 Dose: 5 mg Morphine Sulfate (Morphine Inj (Syringe))*) 2 mg IV Q4H PRN PRN Reason: PAIN - SEVERE Last Admin: 04/28/19 11:18 Dose: 2 mg Nitroglycerin (Nitroglycerin Tab 0.4 Mg*) 0.4 mg SL Q5M PRN PRN Reason: PAIN - CHEST Ondansetron HCl (Zofran Inj*) 4 mg IV Q6H PRN PRN Reason: NAUSEA Last Admin: 04/27/19 14:07 Dose: 4 mg Oxycodone HCl (Roxycodone Tab*) 5 mg PO Q6H PRN PRN Reason: Pain-MILD Pharmacy Consult (Vancomycin Per Pharmacy*) 1 note FOLLOW UP .VANC PER PHARMACY [facility]; Protocol Pharmacy Profile Note (Vancomycin Trough Check) 1 note FOLLOW UP 0600 ONE Stop: 04/29/19 06:01 Polyethylene Glycol/Electrolytes (Miralax*) 17 gm PO BID PRN PRN Reason: CONSTIPATION Pramipexole Dihydrochloride (Mirapex Tab*) 0.5 mg PO BEDTIME [facility] Last Admin: 04/27/19 22:15 Dose: 0.5 mg Prochlorperazine (Compazine Tab*) 10 mg PO Q6H PRN PRN Reason: NAUSEA Last Admin: 04/26/19 12:49 Dose: 10 mg Sertraline HCl (Zoloft*) 50 mg PO DAILY [facility] Last Admin: 04/28/19 09:20 Dose: 50 mg Vitamin B Complex/Vitamin E (B Complex-50*) 1 tab PO DAILY [facility] Last Admin: 04/28/19 09:20 Dose: 1 tab Vital Signs - 8 hr 04/28/19 04/28/19 04/28/19 10:38 11:18 13:58 Respiratory 18 22 14 Rate Oxygen Devices in Use Now: Nasal Cannula Appearance: awake, alert. no distress. Eyes: No Scleral Icterus Ears/Nose/Mouth/Throat: NL Teeth, Lips, Gums, Mucous Membranes Moist Neck: NL Appearance and Movements; NL JVP, Trachea Midline Respiratory: Symmetrical Chest Expansion and Respiratory Effort Cardiovascular: - - Edema RLE Abdominal: - - firm, distended, multiple old scars Extremities: - - RLE ulcer with dressing in place covered with wound dressing Result Diagrams: 04/28/19 05:40 04/28/19 05:40 Additional Lab and Data: Lab Results 04/24/19 04/24/19 04/24/19 Range/Units 17:32 17:32 17:32 WBC 14.2 H (3.5-10.8) 10^3/uL RBC 4.28 (3.70-4.87) 10^6 /uL Hgb 9.7 L (12.0-16.0) g/dL Hct 33 L (35-47) % MCV 76 L (80-97) fL MCH 23 L (27-31) pg MCHC 30 L (31-36) g/dL RDW 22 H (10-15) % Plt Count 433 (150-450) 10^3/uL MPV 8.7 (7.4-10.4) fL Neut % (Auto) 85.6 % Lymph % (Auto) 6.6 % [place] % (Auto) 5.6 % Eos % (Auto) 0.9 % Baso % (Auto) 1.3 % Absolute Neuts (auto) 12.1 H (1.5-7.7) 10^3/ul Absolute Lymphs (auto) 0.9 L (1.0-4.8) 10^3/ul Absolute Monos (auto) 0.8 (0-0.8) 10^3/ul Absolute Eos (auto) 0.1 (0-0.6) 10^3/ul Absolute Basos (auto) 0.2 (0-0.2) 10^3/ul Absolute Nucleated RBC 0.0 10^3/ul Nucleated RBC % 0.3 INR (Anticoag Therapy) 1.12 H (0.82-1.09) Sodium 130 L (135-145) mmol/L Potassium 4.7 (3.5-5.0) mmol/L Chloride 95 L (101-111) mmol/L Carbon Dioxide 29 (22-32) mmol/L Anion Gap 6 (2-11) mmol/L BUN 36 H (6-24) mg/dL Creatinine 2.22 H (0.51-0.95) mg/dL Est GFR ( Amer) 27.5 (>60) Est GFR (Non-Af Amer) 22.7 (>60) BUN/Creatinine Ratio 16.2 (8-20) Glucose 484 H (70-100) mg/dL Lactic Acid (0.5-2.0) mmol/L Calcium 8.5 L (8.6-10.3) mg/dL Total Bilirubin 0.60 (0.2-1.0) mg/dL AST 10 L (13-39) U/L ALT 7 (7-52) U/L Alkaline Phosphatase 253 H (34-104) U/L Troponin I 0.29 H* (<0.04) ng/mL C-Reactive Protein 50.47 H (<8.01) mg/L B-Natriuretic Peptide (<=100) pg/mL Total Protein 5.6 L (6.4-8.9) g/dL Albumin 2.5 L (3.2-5.2) g/dL Globulin 3.1 (2-4) g/dL Albumin/Globulin Ratio 0.8 L (1-3) Urine Color Urine Appearance Urine pH (5-9) Ur Specific [place] (1.010-1.030) Urine Protein (Negative) Urine Ketones (Negative) Urine Blood (Negative) Urine Nitrate (Negative) Urine Bilirubin (Negative) Urine Urobilinogen (Negative) Ur Leukocyte Esterase (Negative) Urine WBC (Auto) (Absent) Urine RBC (Auto) (Absent) Urine Bacteria (Absent) Urine Glucose (Negative) 04/24/19 04/24/19 04/24/19 Range/Units 17:32 17:32 18:25 WBC (3.5-10.8) 10^3/uL RBC (3.70-4.87) 10^6 /uL Hgb (12.0-16.0) g/dL Hct (35-47) % MCV (80-97) fL MCH (27-31) pg MCHC (31-36) g/dL RDW (10-15) % Plt Count (150-450) 10^3/uL MPV (7.4-10.4) fL Neut % (Auto) % Lymph % (Auto) % [place] % (Auto) % Eos % (Auto) % Baso % (Auto) % Absolute Neuts (auto) (1.5-7.7) 10^3/ul Absolute Lymphs (auto) (1.0-4.8) 10^3/ul Absolute Monos (auto) (0-0.8) 10^3/ul Absolute Eos (auto) (0-0.6) 10^3/ul Absolute Basos (auto) (0-0.2) 10^3/ul Absolute Nucleated RBC 10^3/ul Nucleated RBC % INR (Anticoag Therapy) (0.82-1.09) Sodium (135-145) mmol/L Potassium (3.5-5.0) mmol/L Chloride (101-111) mmol/L Carbon Dioxide (22-32) mmol/L Anion Gap (2-11) mmol/L BUN (6-24) mg/dL Creatinine (0.51-0.95) mg/dL Est GFR ( Amer) (>60) Est GFR (Non-Af Amer) (>60) BUN/Creatinine Ratio (8-20) Glucose (70-100) mg/dL Lactic Acid 1.2 (0.5-2.0) mmol/L Calcium (8.6-10.3) mg/dL Total Bilirubin (0.2-1.0) mg/dL AST (13-39) U/L ALT (7-52) U/L Alkaline Phosphatase (34-104) U/L Troponin I (<0.04) ng/mL C-Reactive Protein (<8.01) mg/L B-Natriuretic Peptide > 1300 H (<=100) pg/mL Total Protein (6.4-8.9) g/dL Albumin (3.2-5.2) g/dL Globulin (2-4) g/dL Albumin/Globulin Ratio (1-3) Urine Color Yellow Urine Appearance Clear Urine pH 6.0 (5-9) Ur Specific [place] 1.012 (1.010-1.030) Urine Protein 2+(100 mg/dl) A (Negative) Urine Ketones Negative (Negative) Urine Blood 1+ A (Negative) Urine Nitrate Negative (Negative) Urine Bilirubin Negative (Negative) Urine Urobilinogen Negative (Negative) Ur Leukocyte Esterase Negative (Negative) Urine WBC (Auto) 3+(>20/hpf) A (Absent) Urine RBC (Auto) 1+(3-5/hpf) A (Absent) Urine Bacteria 1+ A (Absent) Urine Glucose 3+(>=500 mg/dl) A (Negative) Microbiology and Other Data: Microbiology 04/24/19 18:25 Urine Culture - Preliminary Urine Strep Group B Citrobacter Freundii 04/25/19 01:55 Skin and Soft Tissue MRSA/MSSA (PCR - Final Leg Right Mrsa Negative S.aureus Positive Gram Stain - Final 04/25/19 01:55 Nasal Screen MRSA (PCR) - Final Nasal Mrsa Not Detected Diagnostic Imaging: Exam Date: 04/14/19 - VL ANK/BRACHIAL INDICES Ankle-brachial indices: Right: Value (SBP) Index Brachial: 153 Posterior tibialis: 171 1.07 Dorsalis pedis: 161 1.01 Digit: 158 0.99 Doppler waveforms (acquired at rest): In the interrogated lower extremity arteries, Doppler waveforms are triphasic in the right lower extremity. Volume pulse recordings (acquired at rest): Volume pulse recordings, measured at the right ankle, measures 31 mm. IMPRESSION: No evidence of claudication or significant arterial insufficiency in the right lower extremity by vascular ultrasound [facility] standards. Assess/Plan/Problems-Billing Assessment: - Patient Problems (1) Ulcer of right lower leg Current Visit: Yes Status: Acute Code(s): L97.919 - NON-PRS CHRONIC ULC UNSP PRT OF R LOW LEG W UNSP SEVERITY SNOMED Code(s): 522222668 Comment: - Suspect secondary to diabetic and venous stasis - Wound care appreciated. Culture positive for Staph negative MRSA and Klebseilla oxytoca - Conitnue azactam. flagyl and vanco will transition to oral levaquin on discharge - Surgery consult from Dr. Springer appreciated. no role for further debridement. She can not have MRI of leg to rule out osteomyelitis given her Pacemaker (2) Acute on chronic systolic (congestive) heart failure Current Visit: No Status: Acute Priority: High Code(s): I50.23 - ACUTE ON CHRONIC SYSTOLIC (CONGESTIVE) HEART FAILURE SNOMED Code(s): 990317733 Comment: - Poor repsonse to her lasix bolus. - Echo 04/24/19 reveal EF 35%, diffuse hypokinesis and moderate size left pleural effusion - I started her on lasix drip 5 mg/hr on 04/26/19 now up to 10 mg hr. - continue her zaroxylen 5 mg daily - I will give 24 hrs albumin infusion and reassess in am her albumin level. - monitor weight and output. Recheck CXR still pending (3) CKD (chronic kidney disease) Current Visit: No Status: Acute Code(s): N18.9 - CHRONIC KIDNEY DISEASE, UNSPECIFIED SNOMED Code(s): 756912901 Comment: - Continue diuresis and follow closely - Creatinine 2.1. check bmp daily (4) Uncontrolled type II diabetes mellitus Current Visit: No Status: Acute Code(s): E11.65 - TYPE 2 DIABETES MELLITUS WITH HYPERGLYCEMIA SNOMED Code(s): 608625879 Comment: - hypogylcemia 04/25/19 afternoon. I did discontinue her lantus and lispro 10 AC and will continue with SS only. BG was 47 given am one amp of D50 and - today 04/27/19 BG still low but better than yesterday. Will keep her only on SS with coverage (5) CAD (coronary artery disease) Current Visit: No Status: Chronic Code(s): I25.10 - ATHSCL HEART DISEASE OF [place] CORONARY ARTERY W/O ANG PCTRS SNOMED Code(s): 96477514 Comment: - Continue coreg 3.15 mg bid, ASA 81 mg daily, and will resume her lipitor once her home medicaiton updated. (6) COPD (chronic obstructive pulmonary disease) Current Visit: No Status: Chronic Code(s): J44.9 - CHRONIC OBSTRUCTIVE PULMONARY DISEASE, UNSPECIFIED SNOMED Code(s): 52727476 Comment: - Contiue spiriva and dulera once home meds updated. (7) HLD (hyperlipidemia) Current Visit: No Status: Chronic Code(s): E78.5 - HYPERLIPIDEMIA, UNSPECIFIED SNOMED Code(s): 12313486 Comment: - Continue lipitor once home meds updated. (8) HTN (hypertension) Current Visit: No Status: Chronic Onset Date: 06/23/14 Code(s): I10 - ESSENTIAL (PRIMARY) HYPERTENSION SNOMED Code(s): 00965549 Comment: - Continue coreg 3.125 mg bid - Now on lasix drip will monitor for hypotension (9) Peripheral vascular disease Current Visit: No Status: Chronic Code(s): I73.9 - PERIPHERAL VASCULAR DISEASE, UNSPECIFIED SNOMED Code(s): 754166406 Comment: - Continue ASA and lipitor once home med updated - [facility] 04/14/19 no significant stenosis. - Continue gabapentin 1200 mg HS (10) DVT prophylaxis Current Visit: No Status: Acute Priority: Low Code(s): EQA3890 - SNOMED Code(s): 591896656 Comment: SQ heparin Status and Disposition: palliative care consult, pending hospice referral
[2019-04-28] MEDS ORDERED: Furosemide IV* 10 MG/ML 10 ML VIAL (100 MG) ONE (19:52)
[2019-04-28] MEDS: Gabapentin CAP(*) 400 MG PO SCH (20:28)
[2019-04-28] MEDS: Pramipexole TAB* 0.5 MG PO SCH (20:29)
[2019-04-28] MEDS: Prochlorperazine TAB* 10 MG PO PRN (23:44)
[2019-04-29] MEDS: Morphine INJ* 2 MG/ML 1 ML SYRINGE (TWO MG - NEW SYRINGE VERSION) IV PRN (02:19)
[2019-04-29] MEDS: Furosemide IV* 100 MG in NS 0.9% 100 ML* 90 ML IV SCH ×2 (04:03→14:46)
[2019-04-29 04:42] LABS: ABS Basophils 0.2 10^3/ul (0-0.2); ABS Eosinophils 0.2 10^3/ul (0-0.6); ABS Monocytes 1.1 10^3/ul (0-0.8); ABS Neutrophils 8.7 10^3/ul (1.5-7.7); Eosinophil % 1.4 %; Hematocrit 29 % (35-47); Hemoglobin 8.2 g/dL (12.0-16.0); Lymphocyte % 8.6 %; Mean Corpuscular HGB Conc 28 g/dL (31-36); Mean Corpuscular Hemoglobin 21 pg (27-31); Mean Corpuscular Volume 75 fL (80-97); Mean Platelet Volume 7.9 fL (7.4-10.4); Nucleated Red Blood Cells % 0.3; Platelet Count 390 10^3/uL (150-450); Red Blood Count 3.86 10^6 /uL (3.70-4.87); Red Cell Distribution Width 22 % (10-15); White Blood Count 11.1 10^3/uL (3.5-10.8)
[2019-04-29 04:59] LABS: BUN/Creatinine Ratio 22.2 (8-20); Calcium 8.8 mg/dL (8.6-10.3); EGFR African American 25.8 (>60); EGFR Non-African American 21.4 (>60)
[2019-04-29] MEDS: Vancomycin(*) 1,000 MG in NS 0.9% 250 ML* 250 ML IVPB SCH (05:29)
[2019-04-29] MEDS: ALPRAZolam TAB* 0.25 MG PO PRN ×2 (05:31→16:38)
[2019-04-29] MEDS: Albumin Human 25%* 25 GM/100 ML BTL IV SCH ×3 (05:33→20:07)
[2019-04-29] MEDS ORDERED: Morphine INJ* 2 MG/ML 1 ML SYRINGE (TWO MG - NEW SYRINGE VERSION) IV PRN (06:00)
[2019-04-29] MEDS ORDERED: Vancomycin Trough Check NOTE FOLLOW UP ONE (06:00)
[2019-04-29] MEDS: oxyCODONE TAB* 5 MG TAB PO PRN ×3 (06:02→22:14)
[2019-04-29] MEDS: Aztreonam (*) 1 GM in NS 0.9% 50 ML* 50 ML IVPB SCH (07:00)
[2019-04-29] MEDS: Cyanocobalamin TAB* 500 MCG PO SCH (08:53)
[2019-04-29] MEDS: Metolazone TAB* 5 MG PO SCH (08:53)
[2019-04-29] MEDS: Sertraline* 50 MG TAB PO SCH (08:53)
[2019-04-29] MEDS: Aspirin EC TAB* 81 MG TAB.EC PO SCH (08:53)
[2019-04-29] MEDS: Insulin LISPRO* 1 UNITS UNIT SUBCUT SCH ×4 (08:53→20:41)
[2019-04-29] MEDS: Carvedilol TAB* 3.125 MG PO SCH ×2 (08:53→20:15)
[2019-04-29] MEDS: metroNIDAZOLE IV 250 MG/50ML* 50 ML IVPB SCH (08:54)
[2019-04-29] MEDS: Heparin VIAL(*) 5000 UNITS/ML VIAL (FIVE THOUSAND) SUBCUT SCH ×2 (08:54→20:19)
[2019-04-29] MEDS: Vitamin B Complex TAB PO SCH (11:58)
[2019-04-29] MEDS ORDERED: Bisacodyl EC TAB* 5 MG PO ONE (12:51)
[2019-04-29] MEDS ORDERED: Mineral Oil ENEMA* 1 BOTTLE PR ONE (12:53)
--- NOTE | 2019-04-29 13:03 | PN ---
Subjective Date of Service: 04/29/19 Interval History: patient seen, she was somnolence today during my evaluation. falls asleep in the middle of interview. having difficulty staying awake. She was taking IV morphine and I explained to nurse staff to avoid narcotic IV and will continue her on prn oxycodone po prn. She still have no bowel movement. She had small BM yesterday. her weight continue to increase despite her IV lasix drip. CT scan yesterday reveals large stool content. no obstructions. no ascites. Repeat CXR reveals she is getting more atelectasis??? and persistent pleural effusion and interstitial edema??? Hence I had a firm discussion with the patient that we need to wean her off her narcotics as it is hindering her respiratory drive and she needs to be more active, incentive spirometer and we need to have decrease her stool burden., Past Medical History: Unchanged from Admission Objective Active Medications: Acetaminophen (Tylenol Tab*) 650 mg PO Q6H PRN PRN Reason: FEVER/PAIN Albuterol/Ipratropium (Duoneb (Albuterol 2.5 Mg/Ipratropium 0.5 Mg)) 1 neb INH Q4H PRN PRN Reason: SHORTNESS OF BREATH Alprazolam (Xanax Tab*) 0.25 mg PO Q8H PRN PRN Reason: ANXIETY Last Admin: 04/29/19 05:31 Dose: 0.25 mg Aspirin (Aspirin Ec Tab*) 81 mg PO DAILY [facility] Last Admin: 04/29/19 08:53 Dose: 81 mg Bisacodyl (Dulcolax Ec Tab*) 20 mg PO ONCE ONE Stop: 04/29/19 12:52 Carvedilol (Coreg Tab*) 3.125 mg PO BID [facility] Last Admin: 04/29/19 08:53 Dose: 3.125 mg Colchicine (Colcrys*) 0.3 mg PO DAILY PRN PRN Reason: Gout Cyanocobalamin (Vitamin B12 Tab*) 1,000 mcg PO DAILY [facility] Last Admin: 04/29/19 08:53 Dose: 1,000 mcg Dextrose (Dextrose 50% Vial 50 Ml*) 12.5 ml IV PUSH .FOR FS < 60 - SS PRN PRN Reason: FS < 60 Last Admin: 04/25/19 16:10 Dose: 12.5 ml Gabapentin (Neurontin Cap(*)) 1,200 mg PO BEDTIME [facility] Last Admin: 04/28/19 20:28 Dose: 1,200 mg Heparin Sodium (Porcine) (Heparin Vial(*)) 5,000 units SUBCUT Q12HR [facility] Last Admin: 04/29/19 08:54 Dose: 5,000 units Heparin Sodium (Porcine) (Heparin Flush Port (Ivad)) 5 ml FLUSH DAILY [facility]; Protocol Last Admin: 04/28/19 09:20 Dose: Not Given Metronidazole/Sodium Chloride (Flagyl 250 Mg Ivpb*) 50 mls @ 50 mls/hr IVPB Q8H [facility] Last Admin: 04/29/19 08:54 Dose: 50 mls/hr Aztreonam 1 gm/ Sodium (Chloride) 50 mls @ 200 mls/hr IVPB Q8H [facility] Last Admin: 04/29/19 07:00 Dose: 200 mls/hr Furosemide 100 mg/ Sodium (Chloride) 100 mls @ 10 mls/hr IV Q10H [facility]; Protocol Last Admin: 04/29/19 04:03 Dose: 10 mls/hr Vancomycin HCl 500 mg/ Sodium (Chloride) 250 mls @ 0 mls/hr IVPB Q24H [facility] Albumin Human (Albumin Human 25%*) 25 gm in 100 mls @ 200 mls/hr IV Q6H [facility] Stop: 04/29/19 19:29 Insulin Human Lispro (Humalog*) 0 units SUBCUT ACHS [facility]; Protocol Last Admin: 04/29/19 11:59 Dose: 3 unit Metolazone (Zaroxolyn Tab*) 5 mg PO DAILY@0830 [facility] Last Admin: 04/29/19 08:53 Dose: 5 mg Mineral Oil (Fleet Mineral Oil Enema*) 1 bottle DE ONCE ONE Stop: 04/29/19 12:54 Nitroglycerin (Nitroglycerin Tab 0.4 Mg*) 0.4 mg SL Q5M PRN PRN Reason: PAIN - CHEST Ondansetron HCl (Zofran Inj*) 4 mg IV Q6H PRN PRN Reason: NAUSEA Last Admin: 04/27/19 14:07 Dose: 4 mg Oxycodone HCl (Roxycodone Tab*) 5 mg PO Q6H PRN PRN Reason: Pain-MILD Last Admin: 04/29/19 06:02 Dose: 5 mg Pharmacy Consult (Vancomycin Per Pharmacy*) 1 note FOLLOW UP .VANC PER PHARMACY [facility]; Protocol Pharmacy Profile Note (Vancomycin Trough Check) 1 note FOLLOW UP 1330 ONE Stop: 05/01/19 13:31 Polyethylene Glycol/Electrolytes (Miralax*) 17 gm PO BID [facility] Pramipexole Dihydrochloride (Mirapex Tab*) 0.5 mg PO BEDTIME [facility] Last Admin: 04/28/19 20:29 Dose: 0.5 mg Prochlorperazine (Compazine Tab*) 10 mg PO Q6H PRN PRN Reason: NAUSEA Last Admin: 04/28/19 23:44 Dose: 10 mg Sertraline HCl (Zoloft*) 50 mg PO DAILY [facility] Last Admin: 04/29/19 08:53 Dose: 50 mg Vitamin B Complex/Vitamin E (B Complex-50*) 1 tab PO DAILY [facility] Last Admin: 04/29/19 11:58 Dose: 1 tab Vital Signs - 8 hr 04/29/19 04/29/19 04/29/19 05:31 05:48 06:02 Temperature 98.1 F Pulse Rate 79 Respiratory 19 18 18 Rate Blood Pressure 156/92 (mmHg) O2 Sat by Pulse 99 Oximetry 04/29/19 04/29/19 04/29/19 06:06 07:06 08:00 Temperature 97.7 F 98.4 F Pulse Rate 78 73 Respiratory 19 19 19 Rate Blood Pressure 157/88 142/73 (mmHg) O2 Sat by Pulse 100 100 Oximetry 04/29/19 04/29/19 04/29/19 08:29 09:07 11:36 Temperature 98.4 F 98.0 F Pulse Rate 72 73 Respiratory 16 16 16 Rate Blood Pressure 153/74 155/81 (mmHg) O2 Sat by Pulse 100 100 Oximetry 04/29/19 12:12 Temperature Pulse Rate Respiratory 18 Rate Blood Pressure (mmHg) O2 Sat by Pulse Oximetry Oxygen Devices in Use Now: Nasal Cannula Appearance: somnolent, difficutly keeping her awake. Eyes: - - EOMI Ears/Nose/Mouth/Throat: Mucous Membranes Moist Neck: Trachea Midline Respiratory: - - diminsihed breath sound , rales and poor inspiratory effort Abdominal: - - firm , edema + sluggish breath sounds Extremities: - - edema +4 Neurological: - - somnelent Result Diagrams: 04/29/19 04:00 04/29/19 04:00 Additional Lab and Data: Lab Results 04/24/19 04/24/19 04/24/19 Range/Units 17:32 17:32 17:32 WBC 14.2 H (3.5-10.8) 10^3/uL RBC 4.28 (3.70-4.87) 10^6 /uL Hgb 9.7 L (12.0-16.0) g/dL Hct 33 L (35-47) % MCV 76 L (80-97) fL MCH 23 L (27-31) pg MCHC 30 L (31-36) g/dL RDW 22 H (10-15) % Plt Count 433 (150-450) 10^3/uL MPV 8.7 (7.4-10.4) fL Neut % (Auto) 85.6 % Lymph % (Auto) 6.6 % [place] % (Auto) 5.6 % Eos % (Auto) 0.9 % Baso % (Auto) 1.3 % Absolute Neuts (auto) 12.1 H (1.5-7.7) 10^3/ul Absolute Lymphs (auto) 0.9 L (1.0-4.8) 10^3/ul Absolute Monos (auto) 0.8 (0-0.8) 10^3/ul Absolute Eos (auto) 0.1 (0-0.6) 10^3/ul Absolute Basos (auto) 0.2 (0-0.2) 10^3/ul Absolute Nucleated RBC 0.0 10^3/ul Nucleated RBC % 0.3 INR (Anticoag Therapy) 1.12 H (0.82-1.09) Sodium 130 L (135-145) mmol/L Potassium 4.7 (3.5-5.0) mmol/L Chloride 95 L (101-111) mmol/L Carbon Dioxide 29 (22-32) mmol/L Anion Gap 6 (2-11) mmol/L BUN 36 H (6-24) mg/dL Creatinine 2.22 H (0.51-0.95) mg/dL Est GFR ( Amer) 27.5 (>60) Est GFR (Non-Af Amer) 22.7 (>60) BUN/Creatinine Ratio 16.2 (8-20) Glucose 484 H (70-100) mg/dL Lactic Acid (0.5-2.0) mmol/L Calcium 8.5 L (8.6-10.3) mg/dL Total Bilirubin 0.60 (0.2-1.0) mg/dL AST 10 L (13-39) U/L ALT 7 (7-52) U/L Alkaline Phosphatase 253 H (34-104) U/L Troponin I 0.29 H* (<0.04) ng/mL C-Reactive Protein 50.47 H (<8.01) mg/L B-Natriuretic Peptide (<=100) pg/mL Total Protein 5.6 L (6.4-8.9) g/dL Albumin 2.5 L (3.2-5.2) g/dL Globulin 3.1 (2-4) g/dL Albumin/Globulin Ratio 0.8 L (1-3) Urine Color Urine Appearance Urine pH (5-9) Ur Specific [place] (1.010-1.030) Urine Protein (Negative) Urine Ketones (Negative) Urine Blood (Negative) Urine Nitrate (Negative) Urine Bilirubin (Negative) Urine Urobilinogen (Negative) Ur Leukocyte Esterase (Negative) Urine WBC (Auto) (Absent) Urine RBC (Auto) (Absent) Urine Bacteria (Absent) Urine Glucose (Negative) 04/24/19 04/24/19 04/24/19 Range/Units 17:32 17:32 18:25 WBC (3.5-10.8) 10^3/uL RBC (3.70-4.87) 10^6 /uL Hgb (12.0-16.0) g/dL Hct (35-47) % MCV (80-97) fL MCH (27-31) pg MCHC (31-36) g/dL RDW (10-15) % Plt Count (150-450) 10^3/uL MPV (7.4-10.4) fL Neut % (Auto) % Lymph % (Auto) % [place] % (Auto) % Eos % (Auto) % Baso % (Auto) % Absolute Neuts (auto) (1.5-7.7) 10^3/ul Absolute Lymphs (auto) (1.0-4.8) 10^3/ul Absolute Monos (auto) (0-0.8) 10^3/ul Absolute Eos (auto) (0-0.6) 10^3/ul Absolute Basos (auto) (0-0.2) 10^3/ul Absolute Nucleated RBC 10^3/ul Nucleated RBC % INR (Anticoag Therapy) (0.82-1.09) Sodium (135-145) mmol/L Potassium (3.5-5.0) mmol/L Chloride (101-111) mmol/L Carbon Dioxide (22-32) mmol/L Anion Gap (2-11) mmol/L BUN (6-24) mg/dL Creatinine (0.51-0.95) mg/dL Est GFR ( Amer) (>60) Est GFR (Non-Af Amer) (>60) BUN/Creatinine Ratio (8-20) Glucose (70-100) mg/dL Lactic Acid 1.2 (0.5-2.0) mmol/L Calcium (8.6-10.3) mg/dL Total Bilirubin (0.2-1.0) mg/dL AST (13-39) U/L ALT (7-52) U/L Alkaline Phosphatase (34-104) U/L Troponin I (<0.04) ng/mL C-Reactive Protein (<8.01) mg/L B-Natriuretic Peptide > 1300 H (<=100) pg/mL Total Protein (6.4-8.9) g/dL Albumin (3.2-5.2) g/dL Globulin (2-4) g/dL Albumin/Globulin Ratio (1-3) Urine Color Yellow Urine Appearance Clear Urine pH 6.0 (5-9) Ur Specific [place] 1.012 (1.010-1.030) Urine Protein 2+(100 mg/dl) A (Negative) Urine Ketones Negative (Negative) Urine Blood 1+ A (Negative) Urine Nitrate Negative (Negative) Urine Bilirubin Negative (Negative) Urine Urobilinogen Negative (Negative) Ur Leukocyte Esterase Negative (Negative) Urine WBC (Auto) 3+(>20/hpf) A (Absent) Urine RBC (Auto) 1+(3-5/hpf) A (Absent) Urine Bacteria 1+ A (Absent) Urine Glucose 3+(>=500 mg/dl) A (Negative) Microbiology and Other Data: Microbiology 04/24/19 18:25 Urine Culture - Preliminary Urine Strep Group B Citrobacter Freundii 04/25/19 01:55 Skin and Soft Tissue MRSA/MSSA (PCR - Final Leg Right Mrsa Negative S.aureus Positive Gram Stain - Final 04/25/19 01:55 Nasal Screen MRSA (PCR) - Final Nasal Mrsa Not Detected Diagnostic Imaging: Exam Date: 04/14/19 - VL ANK/BRACHIAL INDICES Ankle-brachial indices: Right: Value (SBP) Index Brachial: 153 Posterior tibialis: 171 1.07 Dorsalis pedis: 161 1.01 Digit: 158 0.99 Doppler waveforms (acquired at rest): In the interrogated lower extremity arteries, Doppler waveforms are triphasic in the right lower extremity. Volume pulse recordings (acquired at rest): Volume pulse recordings, measured at the right ankle, measures 31 mm. IMPRESSION: No evidence of claudication or significant arterial insufficiency in the right lower extremity by vascular ultrasound [facility] standards. Assess/Plan/Problems-Billing Assessment: - Patient Problems (1) Ulcer of right lower leg Current Visit: Yes Status: Acute Code(s): L97.919 - NON-PRS CHRONIC C UNSP PRT OF R LOW LEG W UNSP SEVERITY SNOMED Code(s): 670270737 Comment: - Suspect secondary to diabetic and venous stasis - Wound care appreciated. Culture positive for Staph negative MRSA and Klebseilla oxytoca - s/p azactam/flagyl/and vanco day # 5 - will transition to oral levaquin today 04/29/19 to decrease fluid intake - Surgery consult from Dr. Springer appreciated. no role for further debridement. She can not have MRI of leg to rule out osteomyelitis given her Pacemaker (2) Acute on chronic systolic (congestive) heart failure Current Visit: No Status: Acute Priority: High Code(s): I50.23 - ACUTE ON CHRONIC SYSTOLIC (CONGESTIVE) HEART FAILURE SNOMED Code(s): 110214869 Comment: - Poor repsonse to her lasix bolus. - Echo 04/24/19 reveal EF 35%, diffuse hypokinesis and moderate size left pleural effusion - I started her on lasix drip 5 mg/hr on 04/26/19 now up to 10 mg hr. - continue her zaroxylen 5 mg daily - s/p 24 hrs albumin infusion her urine output remain suboptimal. Will give 2 more bottle and contine lasix drip till 6 pm. will d/c the drip and transition to po lasix . - weight increasing despite her lasix drip. CXR today shows worsening interstial edema, atelectasis. I explained the importance to avoid narcotic given her poor respiratory drive and somelence. Incentive spirometer and out of bed TID (3) CKD (chronic kidney disease) Current Visit: No Status: Acute Code(s): N18.9 - CHRONIC KIDNEY DISEASE, UNSPECIFIED SNOMED Code(s): 298632167 Comment: - Continue diuresis and follow closely - Creatinine 2.3. check bmp daily (4) Uncontrolled type II diabetes mellitus Current Visit: No Status: Acute Code(s): E11.65 - TYPE 2 DIABETES MELLITUS WITH HYPERGLYCEMIA SNOMED Code(s): 650596054 Comment: - hypogylcemia 04/25/19 afternoon. I did discontinue her lantus and lispro 10 AC and will continue with SS only. BG was 47 given am one amp of D50 and - 04/27/19 BG still low but better than yesterday. Will keep her only on SS with coverage (5) CAD (coronary artery disease) Current Visit: No Status: Chronic Code(s): I25.10 - ATHSCL HEART DISEASE OF [place] CORONARY ARTERY W/O ANG PCTRS SNOMED Code(s): 86249242 Comment: - Continue coreg 3.15 mg bid, ASA 81 mg daily, and will resume her lipitor once her home medicaiton updated. (6) COPD (chronic obstructive pulmonary disease) Current Visit: No Status: Chronic Code(s): J44.9 - CHRONIC OBSTRUCTIVE PULMONARY DISEASE, UNSPECIFIED SNOMED Code(s): 83852814 Comment: - Contiue spiriva and dulera once home meds updated. (7) HLD (hyperlipidemia) Current Visit: No Status: Chronic Code(s): E78.5 - HYPERLIPIDEMIA, UNSPECIFIED SNOMED Code(s): 61125596 Comment: - Continue lipitor once home meds updated. (8) HTN (hypertension) Current Visit: No Status: Chronic Onset Date: 06/23/14 Code(s): I10 - ESSENTIAL (PRIMARY) HYPERTENSION SNOMED Code(s): 90693369 Comment: - Continue coreg 3.125 mg bid - Now on lasix drip will monitor for hypotension (9) Peripheral vascular disease Current Visit: No Status: Chronic Code(s): I73.9 - PERIPHERAL VASCULAR DISEASE, UNSPECIFIED SNOMED Code(s): 797630312 Comment: - Continue ASA and lipitor once home med updated - [facility] 04/14/19 no significant stenosis. - Continue gabapentin 1200 mg HS (10) DVT prophylaxis Current Visit: No Status: Acute Priority: Low Code(s): ECF7194 - SNOMED Code(s): 453592386 Comment: SQ heparin Status and Disposition: palliative care consult, pending hospice referral
[2019-04-29 13:09] LABS: Albumin 2.9 g/dL (3.2-5.2); Albumin/Globulin Ratio 1.2 (1-3); Globulin 2.4 g/dL (2-4); Indirect Bilirubin 0.3 mg/dL (0.3-1.0); Total Bilirubin 0.5 mg/dL (0.2-1.0); Total Protein 5.3 g/dL (6.4-8.9)
[2019-04-29] MEDS ORDERED: Spiriva Inhaler DEVICE* 1 EACH DEVICE INH ONE (14:00)
[2019-04-29] MEDS ORDERED: Vancomycin(*) 500 MG in NS 0.9% 250 ML* 250 ML IVPB SCH (14:00)
[2019-04-29] MEDS: Polyethylene Glycol 3350* 17 GM PACKET PO SCH ×3 (14:10→20:37)
[2019-04-29] MEDS: Levofloxacin TAB* 500 MG PO SCH (14:10)
[2019-04-29] MEDS: Mometasone/Formoter 100/5 MDI INH SCH (17:22)
[2019-04-29] MEDS: Tiotropium CAP.INH* CAP.INH/18 MCG (USE ORDER SET !) INH SCH (17:22)
[2019-04-29] MEDS: Gabapentin CAP(*) 400 MG PO SCH (20:15)
[2019-04-29] MEDS: Pramipexole TAB* 0.5 MG PO SCH (20:15)
[2019-04-29] MEDS: Acetaminophen TAB* 325 MG PO PRN (20:16)
[2019-04-29] MEDS ORDERED: Polyethylene Glycol 3350* 17 GM PACKET PO SCH (21:00)
[2019-04-30] MEDS: ALPRAZolam TAB* 0.25 MG PO PRN ×2 (02:56→14:18)
[2019-04-30] MEDS: oxyCODONE TAB* 5 MG TAB PO PRN (06:27)
[2019-04-30] MEDS: Acetaminophen TAB* 325 MG PO PRN ×2 (06:28→18:10)
[2019-04-30] MEDS: Mometasone/Formoter 100/5 MDI INH SCH (07:11)
[2019-04-30] MEDS: Tiotropium CAP.INH* CAP.INH/18 MCG (USE ORDER SET !) INH SCH (07:12)
[2019-04-30] MEDS: Insulin LISPRO* 1 UNITS UNIT SUBCUT SCH ×4 (08:19→22:15)
[2019-04-30] MEDS: Vitamin B Complex TAB PO SCH (08:34)
[2019-04-30] MEDS: Metolazone TAB* 5 MG PO SCH (08:34)
[2019-04-30] MEDS: Aspirin EC TAB* 81 MG TAB.EC PO SCH (08:34)
[2019-04-30] MEDS: Heparin VIAL(*) 5000 UNITS/ML VIAL (FIVE THOUSAND) SUBCUT SCH ×2 (08:34→21:43)
[2019-04-30] MEDS: Carvedilol TAB* 3.125 MG PO SCH ×2 (08:34→21:43)
[2019-04-30] MEDS: Atorvastatin* 20 MG TAB PO SCH (08:34)
[2019-04-30] MEDS: Sertraline* 50 MG TAB PO SCH (08:34)
[2019-04-30] MEDS: Cyanocobalamin TAB* 500 MCG PO SCH (08:34)
[2019-04-30] MEDS: Polyethylene Glycol 3350* 17 GM PACKET PO SCH ×2 (08:36→22:38)
[2019-04-30] MEDS: Ondansetron INJ* 2 MG/ML VIAL IV PRN ×2 (12:15→18:11)
[2019-04-30] MEDS: fentaNYL PATCH 25 MCG/HR TRANSDERM SCH (12:49)
[2019-04-30] MEDS: Furosemide TAB* 20 MG PO SCH ×2 (12:52→21:43)
--- NOTE | 2019-04-30 14:52 | PN ---
Subjective Date of Service: 04/30/19 Interval History: patient seen today, she remains edematous and in pain. poor response to her lasix drip and albumin infusion. she continue to retains fluid and gaining weight despite >48 hrs lasix drip and albumin infusion. I did review with patient her wishes again as she is not safe to go home given her current states. Pt verbalized to me and to nurse in room, her wishes to pursue comfort and hospice, stating her goal now to purse a comfortable end of life care understanding fully she is terminal and no there is no cure for her End stage heart failure Past Medical History: Unchanged from Admission Objective Active Medications: Acetaminophen (Tylenol Tab*) 650 mg PO Q6H PRN PRN Reason: FEVER/PAIN Last Admin: 04/30/19 06:28 Dose: 650 mg Albuterol/Ipratropium (Duoneb (Albuterol 2.5 Mg/Ipratropium 0.5 Mg)) 1 neb INH Q4H PRN PRN Reason: SHORTNESS OF BREATH Alprazolam (Xanax Tab*) 0.25 mg PO Q8H PRN PRN Reason: ANXIETY Last Admin: 04/30/19 14:18 Dose: 0.25 mg Aspirin (Aspirin Ec Tab*) 81 mg PO DAILY [facility] Last Admin: 04/30/19 08:34 Dose: 81 mg Atorvastatin Calcium (Lipitor*) 20 mg PO DAILY [facility] Last Admin: 04/30/19 08:34 Dose: 20 mg Carvedilol (Coreg Tab*) 3.125 mg PO BID [facility] Last Admin: 04/30/19 08:34 Dose: 3.125 mg Colchicine (Colcrys*) 0.3 mg PO DAILY PRN PRN Reason: Gout Cyanocobalamin (Vitamin B12 Tab*) 1,000 mcg PO DAILY [facility] Last Admin: 04/30/19 08:34 Dose: 1,000 mcg Dextrose (Dextrose 50% Vial 50 Ml*) 12.5 ml IV PUSH .FOR FS < 60 - SS PRN PRN Reason: FS < 60 Last Admin: 04/25/19 16:10 Dose: 12.5 ml Fentanyl (Duragesic Patch 25 Mcg/Hr*) 25 mcg TRANSDERM Q72H [facility] Last Admin: 04/30/19 12:49 Dose: 25 mcg Furosemide (Lasix Tab*) 60 mg PO 0800,2100 [facility] Last Admin: 04/30/19 12:52 Dose: 60 mg Gabapentin (Neurontin Cap(*)) 1,200 mg PO BEDTIME [facility] Last Admin: 04/29/19 20:15 Dose: 1,200 mg Heparin Sodium (Porcine) (Heparin Vial(*)) 5,000 units SUBCUT Q12HR [facility] Last Admin: 04/30/19 08:34 Dose: 5,000 units Heparin Sodium (Porcine) (Heparin Flush Port (Ivad)) 5 ml FLUSH DAILY [facility]; Protocol Last Admin: 04/30/19 08:35 Dose: 5 ml Insulin Human Lispro (Humalog*) 0 units SUBCUT ACHS [facility]; Protocol Last Admin: 04/30/19 12:23 Dose: Not Given Levofloxacin (Levaquin Tab*) 500 mg PO Q48H [facility]; Protocol Last Admin: 04/29/19 14:10 Dose: 500 mg Metolazone (Zaroxolyn Tab*) 5 mg PO DAILY@0830 [facility] Last Admin: 04/30/19 08:34 Dose: 5 mg Mometasone Furoate/Formoterol Fumar (Dulera 100/5 Mdi*) 2 puff INH DAILY [facility] Last Admin: 04/30/19 07:11 Dose: Not Given Nitroglycerin (Nitroglycerin Tab 0.4 Mg*) 0.4 mg SL Q5M PRN PRN Reason: PAIN - CHEST Ondansetron HCl (Zofran Inj*) 4 mg IV Q6H PRN PRN Reason: NAUSEA Last Admin: 04/30/19 12:15 Dose: 4 mg Oxycodone HCl (Roxycodone Tab*) 5 mg PO Q6H PRN PRN Reason: Pain-MILD Last Admin: 04/30/19 06:27 Dose: 5 mg Pharmacy Profile Note (Fentanyl Patch Check Q Shift) 1 note FOLLOW UP 0700, 1900 [facility] Polyethylene Glycol/Electrolytes (Miralax*) 17 gm PO BID [facility] Last Admin: 04/30/19 08:36 Dose: Not Given Pramipexole Dihydrochloride (Mirapex Tab*) 0.5 mg PO BEDTIME [facility] Last Admin: 04/29/19 20:15 Dose: 0.5 mg Prochlorperazine (Compazine Tab*) 10 mg PO Q6H PRN PRN Reason: NAUSEA Last Admin: 04/28/19 23:44 Dose: 10 mg Sertraline HCl (Zoloft*) 50 mg PO DAILY [facility] Last Admin: 04/30/19 08:34 Dose: 50 mg Tiotropium Herman (Spiriva Cap.Inh*) 1 cap INH DAILY [facility] Last Admin: 04/30/19 07:12 Dose: Not Given Vitamin B Complex/Vitamin E (B Complex-50*) 1 tab PO DAILY [facility] Last Admin: 04/30/19 08:34 Dose: 1 tab Vital Signs - 8 hr 04/30/19 04/30/19 04/30/19 08:00 08:25 08:32 Temperature 97.7 F Pulse Rate 74 Respiratory 16 16 16 Rate Blood Pressure 148/73 (mmHg) O2 Sat by Pulse 100 Oximetry 04/30/19 04/30/19 04/30/19 12:00 12:49 14:18 Temperature Pulse Rate 76 Respiratory 19 18 18 Rate Blood Pressure 158/74 (mmHg) O2 Sat by Pulse 100 Oximetry Oxygen Devices in Use Now: Nasal Cannula Appearance: awake, more alert. refusing to get out of bed and does not want any more laxative Eyes: - - EOMI Ears/Nose/Mouth/Throat: - - dry oral mucosa Neck: Trachea Midline Respiratory: - - diminished at bases limited to anterior auscultations Cardiovascular: - - +4 edema. Abdominal: - - non tender firm and distended Result Diagrams: 04/29/19 04:00 04/29/19 04:00 Additional Lab and Data: Lab Results 04/24/19 04/24/19 04/24/19 Range/Units 17:32 17:32 17:32 WBC 14.2 H (3.5-10.8) 10^3/uL RBC 4.28 (3.70-4.87) 10^6 /uL Hgb 9.7 L (12.0-16.0) g/dL Hct 33 L (35-47) % MCV 76 L (80-97) fL MCH 23 L (27-31) pg MCHC 30 L (31-36) g/dL RDW 22 H (10-15) % Plt Count 433 (150-450) 10^3/uL MPV 8.7 (7.4-10.4) fL Neut % (Auto) 85.6 % Lymph % (Auto) 6.6 % Cotton % (Auto) 5.6 % Eos % (Auto) 0.9 % Baso % (Auto) 1.3 % Absolute Neuts (auto) 12.1 H (1.5-7.7) 10^3/ul Absolute Lymphs (auto) 0.9 L (1.0-4.8) 10^3/ul Absolute Monos (auto) 0.8 (0-0.8) 10^3/ul Absolute Eos (auto) 0.1 (0-0.6) 10^3/ul Absolute Basos (auto) 0.2 (0-0.2) 10^3/ul Absolute Nucleated RBC 0.0 10^3/ul Nucleated RBC % 0.3 INR (Anticoag Therapy) 1.12 H (0.82-1.09) Sodium 130 L (135-145) mmol/L Potassium 4.7 (3.5-5.0) mmol/L Chloride 95 L (101-111) mmol/L Carbon Dioxide 29 (22-32) mmol/L Anion Gap 6 (2-11) mmol/L BUN 36 H (6-24) mg/dL Creatinine 2.22 H (0.51-0.95) mg/dL Est GFR ( Amer) 27.5 (>60) Est GFR (Non-Af Amer) 22.7 (>60) BUN/Creatinine Ratio 16.2 (8-20) Glucose 484 H (70-100) mg/dL Lactic Acid (0.5-2.0) mmol/L Calcium 8.5 L (8.6-10.3) mg/dL Total Bilirubin 0.60 (0.2-1.0) mg/dL AST 10 L (13-39) U/L ALT 7 (7-52) U/L Alkaline Phosphatase 253 H (34-104) U/L Troponin I 0.29 H* (<0.04) ng/mL C-Reactive Protein 50.47 H (<8.01) mg/L B-Natriuretic Peptide (<=100) pg/mL Total Protein 5.6 L (6.4-8.9) g/dL Albumin 2.5 L (3.2-5.2) g/dL Globulin 3.1 (2-4) g/dL Albumin/Globulin Ratio 0.8 L (1-3) Urine Color Urine Appearance Urine pH (5-9) Ur Specific [place] (1.010-1.030) Urine Protein (Negative) Urine Ketones (Negative) Urine Blood (Negative) Urine Nitrate (Negative) Urine Bilirubin (Negative) Urine Urobilinogen (Negative) Ur Leukocyte Esterase (Negative) Urine WBC (Auto) (Absent) Urine RBC (Auto) (Absent) Urine Bacteria (Absent) Urine Glucose (Negative) 04/24/19 04/24/19 04/24/19 Range/Units 17:32 17:32 18:25 WBC (3.5-10.8) 10^3/uL RBC (3.70-4.87) 10^6 /uL Hgb (12.0-16.0) g/dL Hct (35-47) % MCV (80-97) fL MCH (27-31) pg MCHC (31-36) g/dL RDW (10-15) % Plt Count (150-450) 10^3/uL MPV (7.4-10.4) fL Neut % (Auto) % Lymph % (Auto) % Cotton % (Auto) % Eos % (Auto) % Baso % (Auto) % Absolute Neuts (auto) (1.5-7.7) 10^3/ul Absolute Lymphs (auto) (1.0-4.8) 10^3/ul Absolute Monos (auto) (0-0.8) 10^3/ul Absolute Eos (auto) (0-0.6) 10^3/ul Absolute Basos (auto) (0-0.2) 10^3/ul Absolute Nucleated RBC 10^3/ul Nucleated RBC % INR (Anticoag Therapy) (0.82-1.09) Sodium (135-145) mmol/L Potassium (3.5-5.0) mmol/L Chloride (101-111) mmol/L Carbon Dioxide (22-32) mmol/L Anion Gap (2-11) mmol/L BUN (6-24) mg/dL Creatinine (0.51-0.95) mg/dL Est GFR ( Amer) (>60) Est GFR (Non-Af Amer) (>60) BUN/Creatinine Ratio (8-20) Glucose (70-100) mg/dL Lactic Acid 1.2 (0.5-2.0) mmol/L Calcium (8.6-10.3) mg/dL Total Bilirubin (0.2-1.0) mg/dL AST (13-39) U/L ALT (7-52) U/L Alkaline Phosphatase (34-104) U/L Troponin I (<0.04) ng/mL C-Reactive Protein (<8.01) mg/L B-Natriuretic Peptide > 1300 H (<=100) pg/mL Total Protein (6.4-8.9) g/dL Albumin (3.2-5.2) g/dL Globulin (2-4) g/dL Albumin/Globulin Ratio (1-3) Urine Color Yellow Urine Appearance Clear Urine pH 6.0 (5-9) Ur Specific [place] 1.012 (1.010-1.030) Urine Protein 2+(100 mg/dl) A (Negative) Urine Ketones Negative (Negative) Urine Blood 1+ A (Negative) Urine Nitrate Negative (Negative) Urine Bilirubin Negative (Negative) Urine Urobilinogen Negative (Negative) Ur Leukocyte Esterase Negative (Negative) Urine WBC (Auto) 3+(>20/hpf) A (Absent) Urine RBC (Auto) 1+(3-5/hpf) A (Absent) Urine Bacteria 1+ A (Absent) Urine Glucose 3+(>=500 mg/dl) A (Negative) Microbiology and Other Data: Microbiology 04/24/19 18:25 Urine Culture - Preliminary Urine Strep Group B Citrobacter Freundii 04/25/19 01:55 Skin and Soft Tissue MRSA/MSSA (PCR - Final Leg Right Mrsa Negative S.aureus Positive Gram Stain - Final 04/25/19 01:55 Nasal Screen MRSA (PCR) - Final Nasal Mrsa Not Detected Diagnostic Imaging: Exam Date: 04/14/19 - VL ANK/BRACHIAL INDICES Ankle-brachial indices: Right: Value (SBP) Index Brachial: 153 Posterior tibialis: 171 1.07 Dorsalis pedis: 161 1.01 Digit: 158 0.99 Doppler waveforms (acquired at rest): In the interrogated lower extremity arteries, Doppler waveforms are triphasic in the right lower extremity. Volume pulse recordings (acquired at rest): Volume pulse recordings, measured at the right ankle, measures 31 mm. IMPRESSION: No evidence of claudication or significant arterial insufficiency in the right lower extremity by vascular ultrasound [facility] standards. Assess/Plan/Problems-Billing Assessment: - Patient Problems (1) Ulcer of right lower leg Current Visit: Yes Status: Acute Code(s): L97.919 - NON-PRS CHRONIC ULC UNSP PRT OF R LOW LEG W UNSP SEVERITY SNOMED Code(s): 126491368 Comment: - Suspect secondary to diabetic and venous stasis - Wound care appreciated. Culture positive for Staph negative MRSA and Klebseilla oxytoca - s/p azactam/flagyl/and vanco day # 5 on 04/29/19 - now on oral levaquin as of 04/29/19 targeted for comfort care - Surgery consult from Dr. Springer appreciated. no role for further debridement. She can not have MRI of leg to rule out osteomyelitis given her Pacemaker - Will aim treatment goal toward comfort care and hospice care (2) Acute on chronic systolic (congestive) heart failure Current Visit: No Status: Acute Priority: High Code(s): I50.23 - ACUTE ON CHRONIC SYSTOLIC (CONGESTIVE) HEART FAILURE SNOMED Code(s): 868248398 Comment: - Poor repsonse to her lasix bolus. - Echo 04/24/19 reveal EF 35%, diffuse hypokinesis and moderate size left pleural effusion - s/p lasix and on zaroxylen 5 mg daily - s/p 24 hrs albumin infusion - CXR hows worsening interstial edema, atelectasis. - I will place her on lasix 60 mg PO bid and will aim treatment goal toward comfort care and hospice care (3) CKD (chronic kidney disease) Current Visit: No Status: Acute Code(s): N18.9 - CHRONIC KIDNEY DISEASE, UNSPECIFIED SNOMED Code(s): 292412673 Comment: - Will aim treatment goal toward comfort care and hospice care (4) Uncontrolled type II diabetes mellitus Current Visit: No Status: Acute Code(s): E11.65 - TYPE 2 DIABETES MELLITUS WITH HYPERGLYCEMIA SNOMED Code(s): 403560338 Comment: - Will aim treatment goal toward comfort care and hospice care (5) CAD (coronary artery disease) Current Visit: No Status: Chronic Code(s): I25.10 - ATHSCL HEART DISEASE OF [place] CORONARY ARTERY W/O ANG PCTRS SNOMED Code(s): 81023425 Comment: - Continue coreg 3.15 mg bid, ASA 81 mg daily, (6) COPD (chronic obstructive pulmonary disease) Current Visit: No Status: Chronic Code(s): J44.9 - CHRONIC OBSTRUCTIVE PULMONARY DISEASE, UNSPECIFIED SNOMED Code(s): 89210421 Comment: - Contiue spiriva and dulera (7) HLD (hyperlipidemia) Current Visit: No Status: Chronic Code(s): E78.5 - HYPERLIPIDEMIA, UNSPECIFIED SNOMED Code(s): 03910851 Comment: - Continue lipitor once home meds updated. (8) HTN (hypertension) Current Visit: No Status: Chronic Onset Date: 06/23/14 Code(s): I10 - ESSENTIAL (PRIMARY) HYPERTENSION SNOMED Code(s): 41280563 Comment: - Continue coreg 3.125 mg bid (9) Peripheral vascular disease Current Visit: No Status: Chronic Code(s): I73.9 - PERIPHERAL VASCULAR DISEASE, UNSPECIFIED SNOMED Code(s): 693324580 Comment: - Continue ASA and lipitor once home med updated - [facility]AY 04/14/19 no significant stenosis. - Continue gabapentin 1200 mg HS (10) DVT prophylaxis Current Visit: No Status: Acute Priority: Low Code(s): XKE6735 - SNOMED Code(s): 731733193 Comment: SQ heparin Status and Disposition: palliative care consult, pending hospice referral - Will aim treatment goal toward comfort care and hospice care as per patient wishes on 04/30/19
[2019-04-30] MEDS ORDERED: Cyclobenzaprine TAB* 10 MG PO PRN (15:42)
[2019-04-30] MEDS: fentaNYL Patch Check Q Shift 1 NOTE FOLLOW UP SCH (19:17)
[2019-04-30] MEDS: Gabapentin CAP(*) 400 MG PO SCH (21:42)
[2019-04-30] MEDS: Pramipexole TAB* 0.5 MG PO SCH (21:43)
[2019-05-01] MEDS: fentaNYL Patch Check Q Shift 1 NOTE FOLLOW UP SCH ×2 (06:47→19:14)
[2019-05-01] MEDS: Tiotropium CAP.INH* CAP.INH/18 MCG (USE ORDER SET !) INH SCH (07:56)
[2019-05-01] MEDS: Mometasone/Formoter 100/5 MDI INH SCH (07:56)
[2019-05-01] MEDS: Insulin LISPRO* 1 UNITS UNIT SUBCUT SCH ×4 (08:33→21:00)
[2019-05-01] MEDS: Vitamin B Complex TAB PO SCH (08:58)
[2019-05-01] MEDS: Metolazone TAB* 5 MG PO SCH (08:58)
[2019-05-01] MEDS: Carvedilol TAB* 3.125 MG PO SCH ×2 (08:58→20:59)
[2019-05-01] MEDS: Furosemide TAB* 20 MG PO SCH ×2 (08:58→20:59)
[2019-05-01] MEDS: Heparin VIAL(*) 5000 UNITS/ML VIAL (FIVE THOUSAND) SUBCUT SCH ×2 (08:58→20:59)
[2019-05-01] MEDS: Cyanocobalamin TAB* 500 MCG PO SCH (08:58)
[2019-05-01] MEDS: Atorvastatin* 20 MG TAB PO SCH (08:58)
[2019-05-01] MEDS: Aspirin EC TAB* 81 MG TAB.EC PO SCH (08:58)
[2019-05-01] MEDS: Sertraline* 50 MG TAB PO SCH (08:58)
[2019-05-01] MEDS: Polyethylene Glycol 3350* 17 GM PACKET PO SCH ×2 (08:59→21:00)
[2019-05-01] MEDS ORDERED: Vancomycin Trough Check NOTE FOLLOW UP ONE (13:30)
[2019-05-01] MEDS ORDERED: Morphine ORAL CONCENTRATE* 5 MG/0.25 ML ORAL.SYRIN SL PRN (14:20)
[2019-05-01] MEDS: Levofloxacin TAB* 500 MG PO SCH (16:22)
--- NOTE | 2019-05-01 17:37 | PN ---
Subjective Date of Service: 05/01/19 Interval History: HOSPITALIST PROGRESS NOTE Patient seen and examined at bedside. Care reviewed and discussed with Thierry Matute RN. She feels a little better today. Still very edematous, but thinks her breathing is not as short as before. Family History: Unchanged from Admission Social History: Unchanged from Admission Past Medical History: Unchanged from Admission Objective Active Medications: Acetaminophen (Tylenol Tab*) 650 mg PO Q6H PRN PRN Reason: FEVER/PAIN Last Admin: 04/30/19 18:10 Dose: 650 mg Albuterol/Ipratropium (Duoneb (Albuterol 2.5 Mg/Ipratropium 0.5 Mg)) 1 neb INH Q4H PRN PRN Reason: SHORTNESS OF BREATH Alprazolam (Xanax Tab*) 0.25 mg PO Q8H PRN PRN Reason: ANXIETY Last Admin: 04/30/19 14:18 Dose: 0.25 mg Aspirin (Aspirin Ec Tab*) 81 mg PO DAILY [facility] Last Admin: 05/01/19 08:58 Dose: 81 mg Atorvastatin Calcium (Lipitor*) 20 mg PO DAILY [facility] Last Admin: 05/01/19 08:58 Dose: 20 mg Carvedilol (Coreg Tab*) 3.125 mg PO BID [facility] Last Admin: 05/01/19 08:58 Dose: 3.125 mg Colchicine (Colcrys*) 0.3 mg PO DAILY PRN PRN Reason: Gout Cyanocobalamin (Vitamin B12 Tab*) 1,000 mcg PO DAILY [facility] Last Admin: 05/01/19 08:58 Dose: 1,000 mcg Cyclobenzaprine HCl (Flexeril Tab*) 5 mg PO TID PRN PRN Reason: spasm Last Admin: 04/30/19 16:23 Dose: 5 mg Dextrose (Dextrose 50% Vial 50 Ml*) 12.5 ml IV PUSH .FOR FS < 60 - SS PRN PRN Reason: FS < 60 Last Admin: 04/25/19 16:10 Dose: 12.5 ml Fentanyl (Duragesic Patch 25 Mcg/Hr*) 25 mcg TRANSDERM Q72H [facility] Last Admin: 04/30/19 12:49 Dose: 25 mcg Furosemide (Lasix Tab*) 60 mg PO 0800,2100 [facility] Last Admin: 05/01/19 08:58 Dose: 60 mg Gabapentin (Neurontin Cap(*)) 1,200 mg PO BEDTIME [facility] Last Admin: 04/30/19 21:42 Dose: 1,200 mg Heparin Sodium (Porcine) (Heparin Vial(*)) 5,000 units SUBCUT Q12HR [facility] Last Admin: 05/01/19 08:58 Dose: 5,000 units Heparin Sodium (Porcine) (Heparin Flush Port (Ivad)) 5 ml FLUSH DAILY [facility]; Protocol Last Admin: 05/01/19 17:01 Dose: 5 ml Insulin Human Lispro (Humalog*) 0 units SUBCUT ACHS [facility]; Protocol Last Admin: 05/01/19 17:00 Dose: 6 unit Levofloxacin (Levaquin Tab*) 500 mg PO Q48H [facility]; Protocol Last Admin: 05/01/19 16:22 Dose: 500 mg Metolazone (Zaroxolyn Tab*) 5 mg PO DAILY@0830 [facility] Last Admin: 05/01/19 08:58 Dose: 5 mg Morphine Sulfate (Morphine Oral Concentrate*) 2.5 mg SL Q2H PRN PRN Reason: RR>24/moderate to severe pain Nitroglycerin (Nitroglycerin Tab 0.4 Mg*) 0.4 mg SL Q5M PRN PRN Reason: PAIN - CHEST Ondansetron HCl (Zofran Inj*) 4 mg IV Q6H PRN PRN Reason: NAUSEA Last Admin: 04/30/19 18:11 Dose: 4 mg Pharmacy Profile Note (Fentanyl Patch Check Q Shift) 1 note FOLLOW UP 0700, 1900 [facility] Last Admin: 05/01/19 06:47 Dose: 1 note Polyethylene Glycol/Electrolytes (Miralax*) 17 gm PO BID [facility] Last Admin: 05/01/19 08:59 Dose: Not Given Pramipexole Dihydrochloride (Mirapex Tab*) 0.5 mg PO BEDTIME [facility] Last Admin: 04/30/19 21:43 Dose: 0.5 mg Prochlorperazine (Compazine Tab*) 10 mg PO Q6H PRN PRN Reason: NAUSEA Last Admin: 04/28/19 23:44 Dose: 10 mg Sertraline HCl (Zoloft*) 50 mg PO DAILY [facility] Last Admin: 05/01/19 08:58 Dose: 50 mg Vital Signs - 8 hr 05/01/19 11:18 Temperature 97.9 F Pulse Rate 73 Respiratory 19 Rate Blood Pressure 148/77 (mmHg) O2 Sat by Pulse 100 Oximetry Oxygen Devices in Use Now: Nasal Cannula Appearance: Pleasant lady sitting up in a recliner in NAD. Eyes: No Scleral Icterus Ears/Nose/Mouth/Throat: Mucous Membranes Moist Neck: Trachea Midline Respiratory: Symmetrical Chest Expansion and Respiratory Effort, - - BS+ bilaterally with bibasilar crackles Cardiovascular: RRR - Normal S1 and S2 Abdominal: - - Abdominal wall edema, no tenderness, mild distention Extremities: - - Bilateral LE severe pitting edema, s/p L BKA, CDI to RLE Neurological: Alert and Oriented x 3, NL Muscle Strength and Tone Result Diagrams: 04/29/19 04:00 04/29/19 04:00 Assess/Plan/Problems-Billing Assessment: Mrs Galarza is a 59yo F with PMH of systolic CHF, CKD stage 4, CAD s/p CABG, PAD s/p multiple stents, HTN, HLD, COPD, CVA, chronically uncontrolled diabetes, with diabetic neuropathy, s/p left BKA, who presented to ED with c/o RLE wound, now transitioning to comfort care/measures. - Patient Problems (1) Ulcer of right lower leg Comment: - Combination of diabetic ulcer, with venous stasis and severe edema. - Culture positive for Staph negative MRSA and Klebseilla oxytoca - s/p azactam/flagyl/and vanco day # 5 on 04/29/19 - Now on oral levaquin as of 04/29/19 targeted for comfort care - Surgery consult from Dr. Springer appreciated. - Goal now is for comfort care. (2) Acute on chronic systolic (congestive) heart failure Comment: - Echo 04/24/19 reveal EF 35%, diffuse hypokinesis and moderate size left pleural effusion - s/p Furosemide, Metalozone, s/p 24 hrs albumin infusion with no significant improvement - has gained 40-50lbs since her prior admissions and not really losing anything so far. - Goal is for comfort. (3) Type 1 diabetes mellitus on insulin therapy Comment: - Chronically uncontrolled with A1c 17. - Continue Insulin. - Monitor FS as we'll liberalize her diet. (4) DNR (do not resuscitate) Status and Disposition: Palliative care referral
[2019-05-01] MEDS: Gabapentin CAP(*) 400 MG PO SCH (20:59)
[2019-05-01] MEDS: Pramipexole TAB* 0.5 MG PO SCH (20:59)
[2019-05-02] MEDS: fentaNYL Patch Check Q Shift 1 NOTE FOLLOW UP SCH ×2 (06:27→18:58)
--- NOTE | 2019-05-02 08:47 | PN ---
Progress Note - Progress Note Date of Service: 05/02/19 Note: I saw this patient in [id number] consultation today due to her request for placement in our hospice residence. In the past, this patient was in our residence for several months, and did very well, so was eventually discharged home as she was quite stable and there was no evidence of terminal status. Her medication management is very challenging because she has renal compromise, with uncontrolled diabetes and CHF. She has episodes of flash pulmonary edema that have required increased morphine and diuresis on an urgent basis, but these have been infrequent. I see that during this hospitalization, which was actually prompted by wound complications, it has been difficult to control her fluid status, and she has gained 30 lbs. over her baseline. On exam, she has RRR and right rhonchi with distant BS, soft abdo and 3+ tense pitting edema of LEs. I think she is appropriate to once again receive hospice services on the basis of her CHF (although EF is 35-40%) COMPLICATED by her renal dysfunction, causing precarious fluid status. We do not have an available bed at the [facility] residence, and I discussed this situation with her. She was initially reluctant to consider SNF placement, but I explained that for the time being she really needs increased assistance with nursing and ADLs, and she consented to placement in a SNF near her home ([facility] may be a good option), on hospice services, with the hope that she might eventually be able to return home. Currently her MOLST form only specifies DNR/DNI, and it would be prudent before discharging her to a SNF on hospice to have her complete a MOLST specifying [employer] and DNH, etc. as well. Thanks.
[2019-05-02] MEDS: Atorvastatin* 20 MG TAB PO SCH (09:15)
[2019-05-02] MEDS: Metolazone TAB* 5 MG PO SCH (09:15)
[2019-05-02] MEDS: Aspirin EC TAB* 81 MG TAB.EC PO SCH (09:15)
[2019-05-02] MEDS: Polyethylene Glycol 3350* 17 GM PACKET PO SCH ×2 (09:16→21:03)
[2019-05-02] MEDS: Cyanocobalamin TAB* 500 MCG PO SCH (09:16)
[2019-05-02] MEDS: Heparin VIAL(*) 5000 UNITS/ML VIAL (FIVE THOUSAND) SUBCUT SCH ×2 (09:16→21:02)
[2019-05-02] MEDS: Carvedilol TAB* 3.125 MG PO SCH ×2 (09:41→21:05)
[2019-05-02] MEDS: Furosemide TAB* 20 MG PO SCH (09:41)
[2019-05-02] MEDS: Sertraline* 50 MG TAB PO SCH (09:41)
[2019-05-02] MEDS: Insulin LISPRO* 1 UNITS UNIT SUBCUT SCH ×4 (09:43→21:02)
[2019-05-02] MEDS ORDERED: Metolazone TAB* 5 MG PO ONE (11:03)
[2019-05-02] MEDS: Acetaminophen TAB* 325 MG PO PRN (11:20)
[2019-05-02] MEDS ORDERED: FUROSEMIDE IV STA (11:22)
[2019-05-02] MEDS ORDERED: NS 0.9% IV STA (11:22)
[2019-05-02] MEDS ORDERED: Furosemide IV* 10 MG/ML VIAL (40 MG) IV SLOW PU ONE (11:30)
[2019-05-02] MEDS: Furosemide IV* 100 MG in NS 0.9% 100 ML* 90 ML IV SCH ×2 (12:54→23:28)
--- NOTE | 2019-05-02 13:58 | PN ---
Subjective Date of Service: 05/02/19 Interval History: HOSPITALIST PROGRESS NOTE Patient seen and examined at bedside. Care reviewed and d/w Melissa Lane RN. She's teary eyed today. Dyspnea is unchanged, but did not take the Morphine concentrate. Pain is controlled with Fentanyl patch. Her 7yo grandson visited and told her "she needs to live", and she is now second guessing her decision to pursue Hospice. Would like to know more about dyalisis and other treatments that would help with diuresis. Family History: Unchanged from Admission Social History: Unchanged from Admission Past Medical History: Unchanged from Admission Objective Active Medications: Acetaminophen (Tylenol Tab*) 650 mg PO Q6H PRN PRN Reason: FEVER/PAIN Last Admin: 05/02/19 11:20 Dose: 650 mg Albuterol/Ipratropium (Duoneb (Albuterol 2.5 Mg/Ipratropium 0.5 Mg)) 1 neb INH Q4H PRN PRN Reason: SHORTNESS OF BREATH Aspirin (Aspirin Ec Tab*) 81 mg PO DAILY [facility] Last Admin: 05/02/19 09:15 Dose: Not Given Atorvastatin Calcium (Lipitor*) 20 mg PO DAILY [facility] Last Admin: 05/02/19 09:15 Dose: Not Given Carvedilol (Coreg Tab*) 3.125 mg PO BID [facility] Last Admin: 05/02/19 09:41 Dose: 3.125 mg Colchicine (Colcrys*) 0.3 mg PO DAILY PRN PRN Reason: Gout Cyanocobalamin (Vitamin B12 Tab*) 1,000 mcg PO DAILY [facility] Last Admin: 05/02/19 09:16 Dose: Not Given Cyclobenzaprine HCl (Flexeril Tab*) 5 mg PO TID PRN PRN Reason: spasm Last Admin: 04/30/19 16:23 Dose: 5 mg Dextrose (Dextrose 50% Vial 50 Ml*) 12.5 ml IV PUSH .FOR FS < 60 - SS PRN PRN Reason: FS < 60 Last Admin: 04/25/19 16:10 Dose: 12.5 ml Fentanyl (Duragesic Patch 25 Mcg/Hr*) 25 mcg TRANSDERM Q72H [facility] Last Admin: 04/30/19 12:49 Dose: 25 mcg Gabapentin (Neurontin Cap(*)) 1,200 mg PO BEDTIME [facility] Last Admin: 05/01/19 20:59 Dose: 1,200 mg Heparin Sodium (Porcine) (Heparin Vial(*)) 5,000 units SUBCUT Q12HR [facility] Last Admin: 05/02/19 09:16 Dose: Not Given Heparin Sodium (Porcine) (Heparin Flush Port (Ivad)) 5 ml FLUSH DAILY [facility]; Protocol Last Admin: 05/02/19 09:43 Dose: Not Given Furosemide 100 mg/ Sodium (Chloride) 100 mls @ 10 mls/hr IV Q10H [facility]; Protocol Last Admin: 05/02/19 12:54 Dose: 10 mls/hr Insulin Human Lispro (Humalog*) 0 units SUBCUT ACHS [facility]; Protocol Last Admin: 05/02/19 12:04 Dose: 6 unit Levofloxacin (Levaquin Tab*) 500 mg PO Q48H [facility]; Protocol Last Admin: 05/01/19 16:22 Dose: 500 mg Metolazone (Zaroxolyn Tab*) 5 mg PO DAILY@0830 [facility] Last Admin: 05/02/19 09:15 Dose: Not Given Morphine Sulfate (Morphine Oral Concentrate*) 2.5 mg SL Q2H PRN PRN Reason: RR>24/moderate to severe pain Last Admin: 05/02/19 12:01 Dose: 2.5 mg Nitroglycerin (Nitroglycerin Tab 0.4 Mg*) 0.4 mg SL Q5M PRN PRN Reason: PAIN - CHEST Ondansetron HCl (Zofran Inj*) 4 mg IV Q6H PRN PRN Reason: NAUSEA Last Admin: 04/30/19 18:11 Dose: 4 mg Pharmacy Profile Note (Fentanyl Patch Check Q Shift) 1 note FOLLOW UP 0700, 1900 [facility] Last Admin: 05/02/19 06:27 Dose: 1 note Polyethylene Glycol/Electrolytes (Miralax*) 17 gm PO BID [facility] Last Admin: 05/02/19 09:16 Dose: Not Given Pramipexole Dihydrochloride (Mirapex Tab*) 0.5 mg PO BEDTIME [facility] Last Admin: 05/01/19 20:59 Dose: 0.5 mg Prochlorperazine (Compazine Tab*) 10 mg PO Q6H PRN PRN Reason: NAUSEA Last Admin: 04/28/19 23:44 Dose: 10 mg Sertraline HCl (Zoloft*) 50 mg PO DAILY [facility] Last Admin: 05/02/19 09:41 Dose: 50 mg Vital Signs - 8 hr 05/02/19 05/02/19 05/02/19 07:45 07:47 08:00 Temperature 97.8 F 97.8 F Pulse Rate 72 72 Respiratory 16 16 16 Rate Blood Pressure 147/70 147/70 (mmHg) O2 Sat by Pulse 100 100 Oximetry 05/02/19 05/02/19 11:49 12:01 Temperature 97.8 F Pulse Rate 76 Respiratory 16 16 Rate Blood Pressure 150/86 (mmHg) O2 Sat by Pulse 100 Oximetry Oxygen Devices in Use Now: Nasal Cannula Appearance: Pleasant middle aged lady, appears older than stated age, teary eyed , in NAD Eyes: No Scleral Icterus, - - subconjunctival edema Ears/Nose/Mouth/Throat: Mucous Membranes Moist Neck: Trachea Midline Respiratory: Symmetrical Chest Expansion and Respiratory Effort, - - BS+ bilaterally, diminished in both bases Cardiovascular: RRR - Normal S1 and S2 Abdominal: - - Soft, mild distention, abdominal wall edema, BS+ Extremities: - - Severe pitting edema to all extremities Skin: - - CDI to RLE Neurological: Alert and Oriented x 3, NL Muscle Strength and Tone Result Diagrams: 04/29/19 04:00 04/29/19 04:00 Assess/Plan/Problems-Billing Assessment: Mrs Galarza is a 59yo F with PMH of systolic CHF, CKD stage 4, CAD s/p CABG, PAD s/p multiple stents, HTN, HLD, COPD, CVA, chronically uncontrolled diabetes, with diabetic neuropathy, s/p left BKA, who presented to ED with c/o RLE wound, now transitioning to comfort care/measures. - Patient Problems (1) Ulcer of right lower leg Comment: - Combination of diabetic ulcer, with venous stasis and severe edema. - Culture positive for Staph negative MRSA and Klebseilla oxytoca - s/p azactam/flagyl/and vanco day # 5 on 04/29/19 - Now on oral levaquin as of 04/29/19 targeted for comfort care - Surgery consult from Dr. Springer appreciated. - Goal now is for comfort care. (2) Acute on chronic systolic (congestive) heart failure Comment: - Echo 04/24/19 reveal EF 35%, diffuse hypokinesis and moderate size left pleural effusion - s/p Furosemide, Metalozone, s/p 24 hrs albumin infusion with no significant improvement - has gained 40-50lbs since her prior admissions and not really losing anything so far. - Lengthy conversation about goals of care today. Although she's very clear she would not pursue further surgeries (including amputations), she asks about what else can be done for her edema. Although in the past she was adamant about no HD , she now states she would consider it, "so I can be with grandson for more time ". - Nephrology consultation requested - plan for now is to try more aggressive diuresis with Furosemide drip. (3) Type 1 diabetes mellitus on insulin therapy Comment: - Chronically uncontrolled with A1c 17. - Continue Insulin. - Monitor FS as we'll liberalize her diet. (4) DNR (do not resuscitate) Status and Disposition: Inpatient. I doubt she'll respond to Furosemide drip, even at higher doses, but willing to try. If she fails, will continue to pursue Palliative care.
--- NOTE | 2019-05-02 15:29 | PN ---
Subjective Date of Service: 05/02/19 Interval History: Ms. Galarza is a 59 yo female with PMH significant for CAD s/p CABG, carotid stenosis, PAD, DM1, vasculopathy, peripheral neuropathy, anemia, CKD stage 4, gastroporesis, HTN, HLD, COPD, CVA, GOUT, and CHF with last EF 35-40%; she presented to the emergency room for her right lower extremity wound, after being found to have maggots growing in the wound by VNS. She presented to the hospital with a known ulcer to her right lower extremity, that she has been following with [place] [facility] [place] [facility]. The wound on the right LE has been present for about 1.5 months. Patient seen and examined at bedside. Family History: Unchanged from Admission Social History: Unchanged from Admission Past Medical History: Unchanged from Admission Objective Active Medications: Acetaminophen (Tylenol Tab*) 650 mg PO Q6H PRN Reason: FEVER/PAIN Albuterol/Ipratropium (Duoneb (Albuterol 2.5 Mg/Ipratropium 0.5 Mg)) 1 neb INH Q4H PRN Reason: SHORTNESS OF BREATH Aspirin (Aspirin Ec Tab*) 81 mg PO DAILY [facility] Atorvastatin Calcium (Lipitor*) 20 mg PO DAILY [facility] Carvedilol (Coreg Tab*) 3.125 mg PO BID [facility] Colchicine (Colcrys*) 0.3 mg PO DAILY PRN Reason: Gout Cyanocobalamin (Vitamin B12 Tab*) 1,000 mcg PO DAILY [facility] Cyclobenzaprine HCl (Flexeril Tab*) 5 mg PO TID PRN Reason: spasm Dextrose (Dextrose 50% Vial 50 Ml*) 12.5 ml IV PUSH .FOR FS < 60 - SS PRN Reason: FS < 60 Fentanyl (Duragesic Patch 25 Mcg/Hr*) 25 mcg TRANSDERM Q72H [facility] Gabapentin (Neurontin Cap(*)) 1,200 mg PO BEDTIME [facility] Heparin Sodium (Porcine) (Heparin Vial(*)) 5,000 units SUBCUT Q12HR [facility] Heparin Sodium (Porcine) (Heparin Flush Port (Ivad)) 5 ml FLUSH DAILY [facility]; Protocol Furosemide 100 mg/ Sodium (Chloride) 100 mls @ 10 mls/hr IV Q10H [facility]; Protocol Insulin Human Lispro (Humalog*) 0 units SUBCUT ACHS [facility]; Protocol Levofloxacin (Levaquin Tab*) 500 mg PO Q48H [facility]; Protocol Metolazone (Zaroxolyn Tab*) 5 mg PO DAILY@0830 [facility] Morphine Sulfate (Morphine Oral Concentrate*) 2.5 mg SL Q2H PRN Reason: RR>24/ moderate to severe pain Nitroglycerin (Nitroglycerin Tab 0.4 Mg*) 0.4 mg SL Q5M PRN Reason: PAIN - CHEST Ondansetron HCl (Zofran Inj*) 4 mg IV Q6H PRN Reason: NAUSEA Pharmacy Profile Note (Fentanyl Patch Check Q Shift) 1 note FOLLOW UP 0700, 1900 [facility] Polyethylene Glycol/Electrolytes (Miralax*) 17 gm PO BID [facility] Pramipexole Dihydrochloride (Mirapex Tab*) 0.5 mg PO BEDTIME [facility] Prochlorperazine (Compazine Tab*) 10 mg PO Q6H PRN Reason: NAUSEA Sertraline HCl (Zoloft*) 50 mg PO DAILY [facility] Vital Signs 05/02/19 05/02/19 11:49 12:01 Temperature 97.8 F Pulse Rate 76 Respiratory 16 16 Rate Blood Pressure 150/86 (mmHg) O2 Sat by Pulse 100 Oximetry Oxygen Devices in Use Now: Nasal Cannula Appearance: NAD, laying in bed Ears/Nose/Mouth/Throat: Mucous Membranes Moist Respiratory: Symmetrical Chest Expansion and Respiratory Effort Cardiovascular: - - Faint pedal pulse on the right Extremities: - - 1-2+ edema Skin: - - See skin note below Nutrition: Taking PO's Result Diagrams: 05/03/19 06:27 05/03/19 06:27 Additional Lab and Data: Above labs were pulled into the note, when the note was edited prior to signing. See labs from day of consultation below. Laboratory Tests 04/29/19 04/29/19 05/02/19 04:00 04:00 18:15 WBC 11.1 H Hgb 8.2 L Hct 29 L Plt Count 390 Sodium 138 Potassium 3.4 L Chloride 100 L Carbon Dioxide 32 BUN 59 H Creatinine 2.61 H Glucose 193 H Total Protein 5.3 L Albumin 2.9 L Microbiology and Other Data: Microbiology 04/25/19 01:55 Skin and Soft Tissue MRSA/MSSA (PCR - Final Leg Right Mrsa Negative S.aureus Positive Gram Stain - Final Wound Culture - Final Klebsiella Oxytoca Strep Agalactiae - (Group B) Corynebacterium Striatum Escherichia Coli Staphylococcus Aureus 04/24/19 18:00 Aerobic Blood Culture - Final Blood Venous No Growth Day 5 Anaerobic Blood Culture - Final No Growth Day 5 04/24/19 17:32 Aerobic Blood Culture - Final Blood Venous No Growth Day 5 Anaerobic Blood Culture - Final No Growth Day 5 04/24/19 18:25 Urine Culture - Final Urine Strep Group B Citrobacter Freundii 04/25/19 01:55 Nasal Screen MRSA (PCR) - Final Nasal Mrsa Not Detected Diagnostic Imaging: Exam Date: 04/14/19 - VL ANK/BRACHIAL INDICES Ankle-brachial indices: Right: Value (SBP) Index Brachial: 153 Posterior tibialis: 171 1.07 Dorsalis pedis: 161 1.01 Digit: 158 0.99 Doppler waveforms (acquired at rest): In the interrogated lower extremity arteries, Doppler waveforms are triphasic in the right lower extremity. Volume pulse recordings (acquired at rest): Volume pulse recordings, measured at the right ankle, measures 31 mm. IMPRESSION: No evidence of claudication or significant arterial insufficiency in the right lower extremity by vascular ultrasound FAY standards. Skin Deviation Note - Skin Deviation Findings Right lateral LE - Wound measures 9.5 cm x 5.4 cm x 0.4 cm. The wound base is pink granulation tissue. The surrounding skin is intact. There is a small amount of serosanguineous drainage from the wound. No odor. Right posterior LE - Smaller wound (larger wound is documented above) measures 1.3 cm x 1 cm x 0.3 cm. The wound base is pink granulation tissue. There is no drainage from the wound. The surrounding skin is intact. No odor. Right posterior ankle - Wound measures 0.6 cm x 0.6 cm x 0.2 cm. The wound base is yellow slough. There is no drainage noted. No odor. The surrounding skin is intact. The heel and foot with sin peeling. Assessment/Plan: Ms. Galarza is a 59 yo female with PMH significant for CAD s/p CABG, carotid stenosis, PAD, DM1, vasculopathy, peripheral neuropathy, anemia, CKD stage 4, gastroporesis, HTN, HLD, COPD, CVA, GOUT, and CHF with last EF 35-40%; she presented to the emergency room for her right lower extremity wound, when she was found to have maggots growing in the wound. 1. Right lower extremity wound. She was seen in consultation by Dr. Zavala and he felt that the wound was secondary to venous insufficiency and/or LE edema. Recent ABIs normal. Suspect secondary to PVD and lower extremity edema in the setting of CHF. Recommend applying calcium alginate to the open areas, followed by rolled gauze and change the dressing every other day. Keep LE elevated to help with edema management. She should be referred back [place] [facility] [place] at discharge. 2. Right achilles wound. Suspect this is secondary to pressure vs DM ulcer. Keep heel elevated off the bed. Recommend applying calcium alginate to the wound and change daily with above dressing. 3. DM1 with associated peripheral neuropathy, CKD, and gastroporesis. History of poor compliance. HgA1C was 17 on during this admission. Maintain good glycemic control to allow for wound healing. 4. PAD with history of left BKA. 5. CHF. Suspect the significant edema is contributing to her lower extremity wounds. Maintain fluid balance and diuresis as needed. 6. Diet. Consistent Carbohydrate diet. 7. Code Status. DNR. 8. Disposition. Inpatient. Disposition per primary medicine team. TIME SPENT: Time for this wound consult was 25 minutes and 15 minutes was spent with the patient removing the old dressing; assessing, measuring, and photographing the wounds, and redressing the wound. Wound Problem/Plan Is Patient a Wound Clinic Patient: [facility] Current Treatment: ABX ointment and a dressing Attending: Aishwarya Kumari
[2019-05-02 18:37] LABS: BUN/Creatinine Ratio 22.6 (8-20); Calcium 8.8 mg/dL (8.6-10.3); EGFR African American 22.8 (>60); EGFR Non-African American 18.8 (>60); Potassium 3.4 mmol/L (3.5-5.0)
[2019-05-02] MEDS: Pramipexole TAB* 0.5 MG PO SCH (21:04)
[2019-05-02] MEDS: Gabapentin CAP(*) 400 MG PO SCH (21:04)
[2019-05-02] MEDS: KCL 10 MEQ/50 ML IVPREMIX* 10 MEQ/50 ML BAG IV SCH ×2 (21:15→22:45)
[2019-05-03] MEDS: Melatonin 3 MG TAB PO SCH ×2 (02:43→20:17)
[2019-05-03] MEDS: fentaNYL Patch Check Q Shift 1 NOTE FOLLOW UP SCH ×2 (06:36→18:29)
[2019-05-03 06:49] LABS: ABS Basophils 0.1 10^3/ul (0-0.2); ABS Eosinophils 0.3 10^3/ul (0-0.6); ABS Lymphocytes 0.9 10^3/ul (1.0-4.8); ABS Monocytes 1.1 10^3/ul (0-0.8); ABS Neutrophils 7.8 10^3/ul (1.5-7.7); Eosinophil % 2.7 %; Hematocrit 28 % (35-47); Hemoglobin 8.5 g/dL (12.0-16.0); Lymphocyte % 8.8 %; Mean Corpuscular HGB Conc 30 g/dL (31-36); Mean Corpuscular Hemoglobin 23 pg (27-31); Mean Corpuscular Volume 74 fL (80-97); Mean Platelet Volume 8.3 fL (7.4-10.4); Platelet Count 349 10^3/uL (150-450); Red Blood Count 3.79 10^6 /uL (3.70-4.87); Red Cell Distribution Width 22 % (10-15); White Blood Count 10.3 10^3/uL (3.5-10.8)
[2019-05-03 07:01] LABS: BUN/Creatinine Ratio 22.4 (8-20); Calcium 8.8 mg/dL (8.6-10.3); EGFR African American 22.6 (>60); EGFR Non-African American 18.7 (>60); Potassium 3.9 mmol/L (3.5-5.0)
[2019-05-03] MEDS ORDERED: Furosemide IV* 10 MG/ML 10 ML VIAL (100 MG) ONE (08:14)
[2019-05-03] MEDS: Insulin LISPRO* 1 UNITS UNIT SUBCUT SCH ×4 (08:20→20:21)
[2019-05-03] MEDS: Metolazone TAB* 5 MG PO SCH (08:21)
[2019-05-03] MEDS: Atorvastatin* 20 MG TAB PO SCH (08:21)
[2019-05-03] MEDS: Aspirin EC TAB* 81 MG TAB.EC PO SCH (08:21)
[2019-05-03] MEDS: Sertraline* 50 MG TAB PO SCH (08:22)
[2019-05-03] MEDS: Carvedilol TAB* 3.125 MG PO SCH ×2 (08:22→20:17)
[2019-05-03] MEDS: Cyanocobalamin TAB* 500 MCG PO SCH (08:25)
[2019-05-03] MEDS: Polyethylene Glycol 3350* 17 GM PACKET PO SCH ×2 (08:26→20:29)
[2019-05-03] MEDS: Heparin VIAL(*) 5000 UNITS/ML VIAL (FIVE THOUSAND) SUBCUT SCH ×2 (08:26→20:22)
--- NOTE | 2019-05-03 09:18 | CONS ---
NEPHROLOGY CONSULTATION NOTE: DATE OF CONSULT: 05/03/19 HISTORY OF PRESENT ILLNESS: Ms. Galarza is a 59-year-old white female with history of open wounds to her right lower extremity. She has a history of panvascular disease and coronary artery disease. She is status post coronary artery bypass grafting. She has a history of carotid stenosis. She has poorly controlled diabetes type 1 since her teenage years. She has a history of left below the knee amputation of her leg. She has a history of significant congestive heart failure. She has had known anemia of chronic disease. She has a history of significant peripheral neuropathy. When she was admitted to the hospital, she was found to have maggots in her wounds. PAST MEDICAL HISTORY: Her previous medical history is significant for heart failure with known ejection fraction of 35% to 40%, otherwise is as noted above. MEDICATIONS: Her medications at the time of admission include: 1. Gabapentin 1200 mg at bedtime, 600 mg in the morning. 2. Pramipexole 0.5 mg at bedtime. 3. Tylenol 650 mg q.4 hours p.r.n. 4. Carvedilol 3.25 mg b.i.d. 5. Aspirin 81 mg daily. 6. Nitroglycerin 0.4 mg p.r.n. for chest pain. 7. Loperamide 4 mg p.r.n. 8. DuoNeb inhalations every 4 hours p.r.n. 9. Colchicine 0.3 mg p.r.n. 10. Xanax 0.25 mg q.8 hours p.r.n. 11. Compazine 5 mg q.6 hours p.r.n. 12. Sertraline 50 mg every day. 13. Bumex 6 mg daily. 14. Cyanocobalamin 1000 mcg daily. 15. Heparin flush to port 5 mL daily. 16. Lispro 10 units subcutaneously at bedtime. 17. Vitamin B complex 1 daily. 18. Lasix 40 mg IV twice a week. 19. Insulin glargine 20 units daily. ALLERGIES: She is allergic to CEPHALOSPORIN, PENICILLIN, SULFA, CODEINE, BENADRYL, and BEE VENOM. SOCIAL HISTORY: She does not use alcohol or illicit drugs. She smokes 5 cigarettes daily according to the notes but she says she quit about a year and a half ago. PHYSICAL EXAM: She is an elderly appearing 59-year-old female who appears comfortable at the present time. Blood pressure 147/70 with pulse of 72, respirations 16. She is anicteric. Her extraocular muscles are intact. Her mucous membranes are moist. The chest was clear. The heart revealed a regular rhythm. I did not hear any murmurs. The abdomen is soft and nontender. She has diffuse edema. Interestingly enough, there is no edema to her right arm but her left arm is massively swollen. She says this is a chronic condition and is related to the stent in her left arm. In addition, there seems to be more edema to the left side of her abdomen than on the right. DIAGNOSTIC STUDIES/LAB DATA: Review of her laboratory studies reveals a white count of 11.1, hemoglobin of 8.2, hematocrit of 29, platelet count of 390,000. Sodium of 138, potassium 3.4, total CO2 of 32, chloride 100, glucose 193, BUN 59 , creatinine 2.61, EGFR 18.8. Urinalysis revealed a specific gravity of 1.012. There was 2+ protein, 1+ blood, 3+ wbc's, 1+ rbc's. There have been some calcium oxylate crystals noted in the past. IMPRESSION: Chronic renal insufficiency secondary to diabetes mellitus type 1 complicated by history of severe congestive heart failure. The question has been posed to me about dialyzing her to remove fluid. There has been a difficult time getting fluid off of her with diuretic medications; however, I note that she has been in negative fluid balance over the past few days and her weight has been relatively stable. Ordinarily in a diabetic, we would initiate dialysis with clearance of approximately 15 cc per minute. We would be able to initiate dialysis if ther were other problems related to the chronic renal insufficiency that were refractory to therapy such as fluid overload refractory to diuretic therapy. However, since she has had some response to diuretics, I do not think dialysis is indicated at the present time. In addition, of course she has these open infecting skin wounds and a central venous dialysis catheter that can quite easily become infected. I would recommend that we treat her with a bolus dose of furosemide 120 mg after a dose of metolazone 5 mg and then starting her on a furosemide drip at 10 mg per hour and titrate back to her urinary output. I have discussed the case at length with Dr. Alfonso. [id number]/[facility] #: [id number] [facility]OSPITALJaylen
[2019-05-03] MEDS: Furosemide IV* 100 MG in NS 0.9% 100 ML* 90 ML IV SCH ×2 (09:30→21:28)
--- NOTE | 2019-05-03 10:18 | CONS ---
CONSULTATION REPORT: DATE OF CONSULT: 05/03/19 HISTORY OF PRESENT ILLNESS: Michelle is a 59-year-old woman who has had coronary artery disease and recurrent significant CHF associated with fluid overload. She is also diabetic with traditionally poor control. She has had a left transtibial amputation for her osteomyelitis recurrent and contracture of the right heel, which was casted serially 3 months ago prior to returning to her home where there was lack of compliance with any treatment program. She thinks a month or so ago she developed an abrasion or laceration on her posterior calf , which interestingly has been addressed by the visiting nurse, but somehow was noted a week ago to have maggots in the wound. Michelle came to the hospital where she has been readmitted with significant fluid overload and CHF. She is on a strict diet now, glucose and fluid control and with diuresis. She is evidently losing fluid weight, which will help her respiratory status. The leg itself is being dressed with alginate daily and it is clean and dry, it's geographical shape irregular, mostly round, maybe 5 cm x 5 cm, relatively shallow, more of an abrasion than any kind of a deep wound. It is clean at this point. There is no foul-smelling discharge. There are islands of epithelial growth. The alginate is fine in my opinion or a Xeroform dressing treating this almost as an abrasion or burn, either way with some compression, I have Kishor wrapped her legs. This should heal over the next 2 to 3 weeks, I think. Evidently, the game plan is a return to hospice and I will be happy to follow Michelle there as well. [id number]/[facility] #: [id number] [place]
--- NOTE | 2019-05-03 11:55 | PN ---
Subjective Date of Service: 05/03/19 Interval History: HOSPITALIST PROGRESS NOTE Patient seen and examined at bedside. Care reviewed and d/w Melissa Lane RN. She feels a little better today. Breathing is still short, required Morphine yesterday. Edema went down, but left arm edema is still marked. Family History: Unchanged from Admission Social History: Unchanged from Admission Past Medical History: Unchanged from Admission Objective Active Medications: Acetaminophen (Tylenol Tab*) 650 mg PO Q6H PRN PRN Reason: FEVER/PAIN Last Admin: 05/02/19 11:20 Dose: 650 mg Albuterol/Ipratropium (Duoneb (Albuterol 2.5 Mg/Ipratropium 0.5 Mg)) 1 neb INH Q4H PRN PRN Reason: SHORTNESS OF BREATH Aspirin (Aspirin Ec Tab*) 81 mg PO DAILY [facility] Last Admin: 05/03/19 08:21 Dose: 81 mg Atorvastatin Calcium (Lipitor*) 20 mg PO DAILY [facility] Last Admin: 05/03/19 08:21 Dose: 20 mg Carvedilol (Coreg Tab*) 3.125 mg PO BID [facility] Last Admin: 05/03/19 08:22 Dose: 3.125 mg Colchicine (Colcrys*) 0.3 mg PO DAILY PRN PRN Reason: Gout Cyanocobalamin (Vitamin B12 Tab*) 1,000 mcg PO DAILY [facility] Last Admin: 05/03/19 08:25 Dose: Not Given Cyclobenzaprine HCl (Flexeril Tab*) 5 mg PO TID PRN PRN Reason: spasm Last Admin: 04/30/19 16:23 Dose: 5 mg Dextrose (Dextrose 50% Vial 50 Ml*) 12.5 ml IV PUSH .FOR FS < 60 - SS PRN PRN Reason: FS < 60 Last Admin: 04/25/19 16:10 Dose: 12.5 ml Fentanyl (Duragesic Patch 25 Mcg/Hr*) 25 mcg TRANSDERM Q72H [facility] Last Admin: 04/30/19 12:49 Dose: 25 mcg Gabapentin (Neurontin Cap(*)) 1,200 mg PO BEDTIME [facility] Last Admin: 05/02/19 21:04 Dose: 1,200 mg Heparin Sodium (Porcine) (Heparin Vial(*)) 5,000 units SUBCUT Q12HR [facility] Last Admin: 05/03/19 08:26 Dose: Not Given Heparin Sodium (Porcine) (Heparin Flush Port (Ivad)) 5 ml FLUSH DAILY [facility]; Protocol Last Admin: 05/03/19 08:26 Dose: Not Given Furosemide 100 mg/ Sodium (Chloride) 100 mls @ 10 mls/hr IV Q10H [facility]; Protocol Last Admin: 05/03/19 09:30 Dose: 10 mls/hr Insulin Human Lispro (Humalog*) 0 units SUBCUT ACHS [facility]; Protocol Last Admin: 05/03/19 08:20 Dose: 6 unit Levofloxacin (Levaquin Tab*) 500 mg PO Q48H [facility]; Protocol Last Admin: 05/01/19 16:22 Dose: 500 mg Melatonin (Melatonin) 3 mg PO BEDTIME [facility] Last Admin: 05/03/19 02:43 Dose: 3 mg Metolazone (Zaroxolyn Tab*) 5 mg PO DAILY@0830 [facility] Last Admin: 05/03/19 08:21 Dose: 5 mg Morphine Sulfate (Morphine Oral Concentrate*) 2.5 mg SL Q2H PRN PRN Reason: RR>24/moderate to severe pain Last Admin: 05/02/19 12:01 Dose: 2.5 mg Nitroglycerin (Nitroglycerin Tab 0.4 Mg*) 0.4 mg SL Q5M PRN PRN Reason: PAIN - CHEST Ondansetron HCl (Zofran Inj*) 4 mg IV Q6H PRN PRN Reason: NAUSEA Last Admin: 04/30/19 18:11 Dose: 4 mg Pharmacy Profile Note (Fentanyl Patch Check Q Shift) 1 note FOLLOW UP 0700, 1900 [facility] Last Admin: 05/03/19 06:36 Dose: 1 note Polyethylene Glycol/Electrolytes (Miralax*) 17 gm PO BID [facility] Last Admin: 05/03/19 08:26 Dose: Not Given Pramipexole Dihydrochloride (Mirapex Tab*) 0.5 mg PO BEDTIME [facility] Last Admin: 05/02/19 21:04 Dose: 0.5 mg Prochlorperazine (Compazine Tab*) 10 mg PO Q6H PRN PRN Reason: NAUSEA Last Admin: 04/28/19 23:44 Dose: 10 mg Sertraline HCl (Zoloft*) 50 mg PO DAILY [facility] Last Admin: 05/03/19 08:22 Dose: 50 mg Vital Signs - 8 hr 05/03/19 08:00 Respiratory 16 Rate Oxygen Devices in Use Now: Nasal Cannula - 2 liters Appearance: Elderly lady, appears older than stated age, lying in bed, propped up with pillows, in NAD Eyes: - - Subconjunctival edema Ears/Nose/Mouth/Throat: Mucous Membranes Moist Neck: Trachea Midline Respiratory: Symmetrical Chest Expansion and Respiratory Effort, - - BS+ bilaterally diminished in bases Cardiovascular: RRR - Normal S1 and S2 Abdominal: - - Abdominal wall edema, NT, BS+ Extremities: - - Bilateral LE moderate pitting edema, RUE mild edema, LUE severe edema Skin: - - CDI to RLE Neurological: Alert and Oriented x 3, NL Muscle Strength and Tone Nutrition: Taking PO's Result Diagrams: 05/03/19 06:27 05/03/19 06:27 Microbiology and Other Data: Microbiology 04/24/19 18:25 Urine Culture - Preliminary Urine Strep Group B Citrobacter Freundii 04/25/19 01:55 Skin and Soft Tissue MRSA/MSSA (PCR - Final Leg Right Mrsa Negative S.aureus Positive Gram Stain - Final 04/25/19 01:55 Nasal Screen MRSA (PCR) - Final Nasal Mrsa Not Detected Assess/Plan/Problems-Billing Assessment: Mrs Galarza is a 59yo F with PMH of systolic CHF, CKD stage 4, CAD s/p CABG, PAD s/p multiple stents, HTN, HLD, COPD, CVA, chronically uncontrolled diabetes, with diabetic neuropathy, s/p left BKA, who presented to ED with c/o RLE wound, now transitioning to comfort care/measures. - Patient Problems (1) Ulcer of right lower leg Comment: - Combination of diabetic ulcer, with venous stasis and severe edema. FAY done 04/14 did not show evidence of arterial insufficiency. - Culture positive for Staph negative MRSA and Klebseilla oxytoca. Receivedazactam/flagyl/and vanco and ow on oral Levaquin. - Surgery and Ortho input appreciated - no indication for surgery at this time. (2) Acute on chronic systolic (congestive) heart failure Comment: - Echo 04/24/19 reveal EF 35%, diffuse hypokinesis and moderate size left pleural effusion - s/p Furosemide, Metalozone, s/p 24 hrs albumin infusion with no significant improvement - has gained 40-50lbs since her prior admissions and not really losing anything so far. - Lengthy conversation about goals of care on 05/02/19. Although she's very clear she would not pursue further surgeries (including amputations), she asks about what else can be done for her edema. Although in the past she was adamant about no HD, she now states she would consider it, "so I can be with my grandson for more time". - Nephrology consultation appreciated - plan for now is to try more aggressive diuresis with Furosemide drip. Her weight is down to 188lbs today (lost 7 lbs over the past 24h) and she's showing symptomatic relief. She understand this is a comfort care measure, and eventually her edema will reaccumulate. She was educated about side effects of Furosemide drip, especially hearing loss. She understands and wants to continue with therapy. - Will increase Morphine concentrate to 5mg to help with air hunger. (3) Type 1 diabetes mellitus on insulin therapy Comment: - Chronically uncontrolled with A1c 17. - Continue Insulin. - Monitor FS as we'll liberalize her diet. (4) CKD (chronic kidney disease) Comment: - Renal function remains stable. (5) Left upper extremity swelling Comment: - Chronic standing issue. In the past, arterial dopplers showed evidence of proximal subclavian stenosis and angiography showed "high grade left subclavian proximal stenosis with subclavian steal. Excellent pinch graft results with balloon expandable stent placement." - Will check LUE US to r/o any other vascular (venous) cause for her edema. (6) DVT prophylaxis Comment: SQ heparin (7) DNR (do not resuscitate) Status and Disposition: Inpatient. Goal is still SNF placement with Palliative care. Will continue Furosemide drip as tolerated for comfort.
[2019-05-03] MEDS: fentaNYL PATCH 25 MCG/HR TRANSDERM SCH (13:06)
[2019-05-03] MEDS: Levofloxacin TAB* 500 MG PO SCH (13:11)
[2019-05-03] MEDS: Pramipexole TAB* 0.5 MG PO SCH (20:18)
[2019-05-03] MEDS: Gabapentin CAP(*) 400 MG PO SCH (20:18)
[2019-05-03] MEDS: Morphine ORAL CONCENTRATE* 5 MG/0.25 ML ORAL.SYRIN SL PRN (20:21)
[2019-05-04 06:13] LABS: BUN/Creatinine Ratio 23.8 (8-20); Calcium 8.6 mg/dL (8.6-10.3); EGFR African American 22.8 (>60); EGFR Non-African American 18.8 (>60); Potassium 3.9 mmol/L (3.5-5.0)
[2019-05-04] MEDS: fentaNYL Patch Check Q Shift 1 NOTE FOLLOW UP SCH ×2 (06:50→18:59)
[2019-05-04] MEDS ORDERED: Furosemide IV* 10 MG/ML 10 ML VIAL (100 MG) IV ONE (09:37)
[2019-05-04] MEDS: Furosemide IV* 100 MG in NS 0.9% 100 ML* 90 ML IV SCH ×2 (10:03→10:11)
[2019-05-04] MEDS: Polyethylene Glycol 3350* 17 GM PACKET PO SCH ×2 (10:03→22:39)
[2019-05-04] MEDS: Sertraline* 50 MG TAB PO SCH (10:08)
[2019-05-04] MEDS: Atorvastatin* 20 MG TAB PO SCH (10:09)
[2019-05-04] MEDS: Carvedilol TAB* 3.125 MG PO SCH ×2 (10:09→22:17)
[2019-05-04] MEDS: Metolazone TAB* 5 MG PO SCH (10:09)
[2019-05-04] MEDS: Aspirin EC TAB* 81 MG TAB.EC PO SCH (10:09)
[2019-05-04] MEDS: Cyanocobalamin TAB* 500 MCG PO SCH (10:10)
[2019-05-04] MEDS: Morphine ORAL CONCENTRATE* 5 MG/0.25 ML ORAL.SYRIN SL PRN ×2 (10:18→13:18)
[2019-05-04] MEDS: Insulin LISPRO* 1 UNITS UNIT SUBCUT SCH ×4 (10:18→22:17)
[2019-05-04] MEDS: Heparin VIAL(*) 5000 UNITS/ML VIAL (FIVE THOUSAND) SUBCUT SCH ×2 (10:19→22:17)
--- NOTE | 2019-05-04 13:39 | PN ---
Subjective Date of Service: 05/04/19 Interval History: HOSPITALIST PROGRESS NOTE Patient seen and examined at bedside. Care reviewed and d/w Nida Rivera RN. She's disappointed she gained 2 pounds. C/o some RLE pain. Denies N/V, CP or palpitations. Family History: Unchanged from Admission Social History: Unchanged from Admission Past Medical History: Unchanged from Admission Objective Active Medications: Acetaminophen (Tylenol Tab*) 650 mg PO Q6H PRN PRN Reason: FEVER/PAIN Last Admin: 05/02/19 11:20 Dose: 650 mg Albuterol/Ipratropium (Duoneb (Albuterol 2.5 Mg/Ipratropium 0.5 Mg)) 1 neb INH Q4H PRN PRN Reason: SHORTNESS OF BREATH Aspirin (Aspirin Ec Tab*) 81 mg PO DAILY [facility] Last Admin: 05/04/19 10:09 Dose: 81 mg Atorvastatin Calcium (Lipitor*) 20 mg PO DAILY [facility] Last Admin: 05/04/19 10:09 Dose: 20 mg Carvedilol (Coreg Tab*) 3.125 mg PO BID [facility] Last Admin: 05/04/19 10:09 Dose: 3.125 mg Colchicine (Colcrys*) 0.3 mg PO DAILY PRN PRN Reason: Gout Cyanocobalamin (Vitamin B12 Tab*) 1,000 mcg PO DAILY [facility] Last Admin: 05/04/19 10:10 Dose: Not Given Cyclobenzaprine HCl (Flexeril Tab*) 5 mg PO TID PRN PRN Reason: spasm Last Admin: 04/30/19 16:23 Dose: 5 mg Dextrose (Dextrose 50% Vial 50 Ml*) 12.5 ml IV PUSH .FOR FS < 60 - SS PRN PRN Reason: FS < 60 Last Admin: 04/25/19 16:10 Dose: 12.5 ml Fentanyl (Duragesic Patch 25 Mcg/Hr*) 25 mcg TRANSDERM Q72H [facility] Last Admin: 05/03/19 13:06 Dose: 25 mcg Gabapentin (Neurontin Cap(*)) 1,200 mg PO BEDTIME [facility] Last Admin: 05/03/19 20:18 Dose: 1,200 mg Heparin Sodium (Porcine) (Heparin Vial(*)) 5,000 units SUBCUT Q12HR [facility] Last Admin: 05/04/19 10:19 Dose: 5,000 units Heparin Sodium (Porcine) (Heparin Flush Port (Ivad)) 5 ml FLUSH DAILY [facility]; Protocol Last Admin: 05/04/19 10:17 Dose: 5 ml Furosemide 100 mg/ Sodium (Chloride) 100 mls @ 10 mls/hr IV Q10H [facility]; Protocol Last Admin: 05/04/19 10:11 Dose: 10 mls/hr Insulin Human Lispro (Humalog*) 0 units SUBCUT ACHS [facility]; Protocol Last Admin: 05/04/19 12:33 Dose: 6 unit Levofloxacin (Levaquin Tab*) 500 mg PO Q48H [facility]; Protocol Last Admin: 05/03/19 13:11 Dose: 500 mg Melatonin (Melatonin) 3 mg PO BEDTIME [facility] Last Admin: 05/03/19 20:17 Dose: 3 mg Metolazone (Zaroxolyn Tab*) 5 mg PO DAILY@0830 [facility] Last Admin: 05/04/19 10:09 Dose: 5 mg Morphine Sulfate (Morphine Oral Concentrate*) 5 mg SL Q2H PRN PRN Reason: RR>24/moderate to severe pain Last Admin: 05/04/19 13:18 Dose: 5 mg Nitroglycerin (Nitroglycerin Tab 0.4 Mg*) 0.4 mg SL Q5M PRN PRN Reason: PAIN - CHEST Ondansetron HCl (Zofran Inj*) 4 mg IV Q6H PRN PRN Reason: NAUSEA Last Admin: 04/30/19 18:11 Dose: 4 mg Pharmacy Profile Note (Fentanyl Patch Check Q Shift) 1 note FOLLOW UP 0700, 1900 [facility] Last Admin: 05/04/19 06:50 Dose: 1 note Polyethylene Glycol/Electrolytes (Miralax*) 17 gm PO BID [facility] Last Admin: 05/04/19 10:03 Dose: Not Given Pramipexole Dihydrochloride (Mirapex Tab*) 0.5 mg PO BEDTIME [facility] Last Admin: 05/03/19 20:18 Dose: 0.5 mg Prochlorperazine (Compazine Tab*) 10 mg PO Q6H PRN PRN Reason: NAUSEA Last Admin: 04/28/19 23:44 Dose: 10 mg Sertraline HCl (Zoloft*) 50 mg PO DAILY [facility] Last Admin: 07/25/19 10:08 Dose: 50 mg Vital Signs - 8 hr 05/04/19 05/04/19 05/04/19 07:58 10:07 10:18 Temperature 97.6 F Pulse Rate 72 Respiratory 18 20 20 Rate Blood Pressure 144/80 (mmHg) O2 Sat by Pulse 100 Oximetry 05/04/19 05/04/19 12:38 13:18 Temperature Pulse Rate Respiratory 20 20 Rate Blood Pressure (mmHg) O2 Sat by Pulse Oximetry Oxygen Devices in Use Now: Nasal Cannula Appearance: Elderly lady, appears older than stated age, sitting up in bed in NAD Eyes: No Scleral Icterus Ears/Nose/Mouth/Throat: Mucous Membranes Moist Neck: Trachea Midline Respiratory: Symmetrical Chest Expansion and Respiratory Effort, - - BS+ bilaterally with bibasilar crackles Cardiovascular: RRR - Normal S1 and S2 Abdominal: - - Mild distention, abdominal wall edema, NT, BS+ Extremities: - - Anasarca. RUE and bilateral LE are 3+, LUE 4+ Neurological: Alert and Oriented x 3, NL Muscle Strength and Tone Result Diagrams: 05/03/19 06:27 05/04/19 05:47 Assess/Plan/Problems-Billing Assessment: Mrs Galarza is a 59yo F with PMH of systolic CHF, CKD stage 4, CAD s/p CABG, PAD s/p multiple stents, HTN, HLD, COPD, CVA, chronically uncontrolled diabetes, with diabetic neuropathy, s/p left BKA, who presented to ED with c/o RLE wound, now transitioning to comfort care/measures. - Patient Problems (1) Ulcer of right lower leg Comment: - Combination of diabetic ulcer, with venous stasis and severe edema. FAY done 04/14 did not show evidence of arterial insufficiency. - Culture positive for Staph negative MRSA and Klebseilla oxytoca. Received azactam/flagyl/and vanco and now on oral Levaquin. - Surgery and Ortho input appreciated - no indication for surgery at this time. (2) Acute on chronic systolic (congestive) heart failure Comment: - Echo 04/24/19 reveal EF 35%, diffuse hypokinesis and moderate size left pleural effusion - s/p Furosemide, Metalozone, s/p 24 hrs albumin infusion with no significant improvement - has gained 40-50lbs since her prior admissions. - Lengthy conversation about goals of care on 05/02/19. Although she's very clear she would not pursue further surgeries (including amputations), she asks about what else can be done for her edema. Although in the past she was adamant about no HD, she now states she would consider it, "so I can be with my grandson for more time". - Nephrology consultation appreciated - plan for now is to try more aggressive diuresis with Furosemide drip. She understand this is a comfort care measure for symptom relief, and eventually her edema will reaccumulate. She was educated about side effects of Furosemide drip, especially hearing loss. She understands and wants to continue with therapy. - D/w Dr Hull yesterday and we cut the drip from 10 to 8mg/h. As she gained 2 pounds, he recommended bolusing with 80mg and increasing drip back to 10mg/h. - Continue Morphine concentrate to 5mg to help with air hunger. (3) Type 1 diabetes mellitus on insulin therapy Comment: - Chronically uncontrolled with A1c 17. - Continue Insulin. - Monitor FS as we'll liberalize her diet. (4) CKD (chronic kidney disease) Comment: - Renal function remains stable. (5) Left upper extremity swelling Comment: - Chronic standing issue. In the past, arterial dopplers showed evidence of proximal subclavian stenosis and angiography showed "high grade left subclavian proximal stenosis with subclavian steal. Excellent pinch graft results with balloon expandable stent placement." - LUE doppler negative for DVT. (6) DVT prophylaxis Comment: SQ heparin (7) DNR (do not resuscitate) Status and Disposition: Inpatient. Has bed offer at [facility]. Goal is to diurese as much as possible over the next couple days prior to discharge.
[2019-05-04] MEDS: Gabapentin CAP(*) 400 MG PO SCH (22:17)
[2019-05-04] MEDS: Pramipexole TAB* 0.5 MG PO SCH (22:17)
[2019-05-04] MEDS: Melatonin 3 MG TAB PO SCH (22:17)
[2019-05-05 05:29] LABS: BUN/Creatinine Ratio 23.7 (8-20); Calcium 8.5 mg/dL (8.6-10.3); EGFR African American 21.5 (>60); EGFR Non-African American 17.8 (>60)
[2019-05-05] MEDS: fentaNYL Patch Check Q Shift 1 NOTE FOLLOW UP SCH ×2 (07:03→19:58)
[2019-05-05] MEDS: Insulin LISPRO* 1 UNITS UNIT SUBCUT SCH ×4 (08:27→21:18)
[2019-05-05] MEDS: Sertraline* 50 MG TAB PO SCH (09:06)
[2019-05-05] MEDS: Carvedilol TAB* 3.125 MG PO SCH ×2 (09:06→21:21)
[2019-05-05] MEDS: Metolazone TAB* 5 MG PO SCH (09:06)
[2019-05-05] MEDS: Cyanocobalamin TAB* 500 MCG PO SCH (09:06)
[2019-05-05] MEDS: Aspirin EC TAB* 81 MG TAB.EC PO SCH (09:06)
[2019-05-05] MEDS: Atorvastatin* 20 MG TAB PO SCH (09:06)
[2019-05-05] MEDS: Heparin VIAL(*) 5000 UNITS/ML VIAL (FIVE THOUSAND) SUBCUT SCH ×2 (09:07→21:18)
[2019-05-05] MEDS: Polyethylene Glycol 3350* 17 GM PACKET PO SCH ×2 (09:08→21:21)
[2019-05-05] MEDS: Morphine ORAL CONCENTRATE* 5 MG/0.25 ML ORAL.SYRIN SL PRN ×2 (09:29→21:17)
--- NOTE | 2019-05-05 10:35 | PN ---
Subjective Date of Service: 05/05/19 Interval History: Not too SOB but c/o feels there is more fluid in her abdomen. No chest pain. Appetite OK. No bowel c/o. Family History: Unchanged from Admission Social History: Unchanged from Admission Past Medical History: Unchanged from Admission Objective Active Medications: Acetaminophen (Tylenol Tab*) 650 mg PO Q6H PRN PRN Reason: FEVER/PAIN Last Admin: 05/02/19 11:20 Dose: 650 mg Albuterol/Ipratropium (Duoneb (Albuterol 2.5 Mg/Ipratropium 0.5 Mg)) 1 neb INH Q4H PRN PRN Reason: SHORTNESS OF BREATH Aspirin (Aspirin Ec Tab*) 81 mg PO DAILY [facility] Last Admin: 05/05/19 09:06 Dose: 81 mg Atorvastatin Calcium (Lipitor*) 20 mg PO DAILY [facility] Last Admin: 05/05/19 09:06 Dose: 20 mg Carvedilol (Coreg Tab*) 3.125 mg PO BID [facility] Last Admin: 05/05/19 09:06 Dose: 3.125 mg Colchicine (Colcrys*) 0.3 mg PO DAILY PRN PRN Reason: Gout Cyanocobalamin (Vitamin B12 Tab*) 1,000 mcg PO DAILY [facility] Last Admin: 05/05/19 09:06 Dose: 1,000 mcg Cyclobenzaprine HCl (Flexeril Tab*) 5 mg PO TID PRN PRN Reason: spasm Last Admin: 04/30/19 16:23 Dose: 5 mg Dextrose (Dextrose 50% Vial 50 Ml*) 12.5 ml IV PUSH .FOR FS < 60 - SS PRN PRN Reason: FS < 60 Last Admin: 04/25/19 16:10 Dose: 12.5 ml Fentanyl (Duragesic Patch 25 Mcg/Hr*) 25 mcg TRANSDERM Q72H [facility] Last Admin: 05/03/19 13:06 Dose: 25 mcg Gabapentin (Neurontin Cap(*)) 1,200 mg PO BEDTIME [facility] Last Admin: 05/04/19 22:17 Dose: 1,200 mg Heparin Sodium (Porcine) (Heparin Vial(*)) 5,000 units SUBCUT Q12HR [facility] Last Admin: 05/05/19 09:07 Dose: 5,000 units Heparin Sodium (Porcine) (Heparin Flush Port (Ivad)) 5 ml FLUSH DAILY [facility]; Protocol Last Admin: 05/05/19 09:08 Dose: Not Given Furosemide 100 mg/ Sodium (Chloride) 100 mls @ 10 mls/hr IV Q10H [facility]; Protocol Last Admin: 05/04/19 10:11 Dose: 10 mls/hr Insulin Human Lispro (Humalog*) 0 units SUBCUT ACHS [facility]; Protocol Last Admin: 05/05/19 08:27 Dose: Not Given Levofloxacin (Levaquin Tab*) 500 mg PO Q48H [facility]; Protocol Last Admin: 05/03/19 13:11 Dose: 500 mg Melatonin (Melatonin) 3 mg PO BEDTIME [facility] Last Admin: 05/04/19 22:17 Dose: 3 mg Metolazone (Zaroxolyn Tab*) 5 mg PO DAILY@0830 [facility] Last Admin: 05/05/19 09:06 Dose: 5 mg Metolazone (Zaroxolyn Tab*) 5 mg PO DAILY@0830 [facility] Morphine Sulfate (Morphine Oral Concentrate*) 5 mg SL Q2H PRN PRN Reason: RR>24/moderate to severe pain Last Admin: 05/05/19 09:29 Dose: 5 mg Nitroglycerin (Nitroglycerin Tab 0.4 Mg*) 0.4 mg SL Q5M PRN PRN Reason: PAIN - CHEST Ondansetron HCl (Zofran Inj*) 4 mg IV Q6H PRN PRN Reason: NAUSEA Last Admin: 04/30/19 18:11 Dose: 4 mg Pharmacy Profile Note (Fentanyl Patch Check Q Shift) 1 note FOLLOW UP 0700, 1900 [facility] Last Admin: 05/05/19 07:03 Dose: 1 note Polyethylene Glycol/Electrolytes (Miralax*) 17 gm PO BID [facility] Last Admin: 05/05/19 09:08 Dose: Not Given Pramipexole Dihydrochloride (Mirapex Tab*) 0.5 mg PO BEDTIME [facility] Last Admin: 05/04/19 22:17 Dose: 0.5 mg Prochlorperazine (Compazine Tab*) 10 mg PO Q6H PRN PRN Reason: NAUSEA Last Admin: 04/28/19 23:44 Dose: 10 mg Sertraline HCl (Zoloft*) 50 mg PO DAILY [facility] Last Admin: 05/05/19 09:06 Dose: 50 mg Vital Signs - 8 hr 05/05/19 05/05/19 08:00 09:29 Respiratory 18 18 Rate Oxygen Devices in Use Now: Nasal Cannula Appearance: Alert, partly up in bed. In good spirits, looks comfortable. Eyes: No Scleral Icterus Neck: No Thyroid Enlargement, Masses, - - JVD at 30 degrees. Respiratory: Clear to Auscultation, Clear to Percussion, Clear to Palpation Cardiovascular: NL Sounds; No Murmurs; No JVD, RRR Extremities: No Clubbing, Cyanosis, - - 1+ pedal edema. L BKA Skin: No Rash or Ulcers, No Nodules or Sclerosis Neurological: Alert and Oriented x 3, NL Sensation Result Diagrams: 05/03/19 06:27 05/05/19 04:42 Additional Lab and Data: Disregard above labs, labs were pulled into chart when addendum was entered. Microbiology and Other Data: Microbiology 04/25/19 01:55 Skin and Soft Tissue MRSA/MSSA (PCR - Final Leg Right Mrsa Negative S.aureus Positive Gram Stain - Final Wound Culture - Final Klebsiella Oxytoca Strep Agalactiae - (Group B) Corynebacterium Striatum Escherichia Coli Staphylococcus Aureus 04/24/19 18:00 Aerobic Blood Culture - Final Blood Venous No Growth Day 5 Anaerobic Blood Culture - Final No Growth Day 5 04/24/19 17:32 Aerobic Blood Culture - Final Blood Venous No Growth Day 5 Anaerobic Blood Culture - Final No Growth Day 5 04/24/19 18:25 Urine Culture - Final Urine Strep Group B Citrobacter Freundii 04/25/19 01:55 Nasal Screen MRSA (PCR) - Final Nasal Mrsa Not Detected Diagnostic Imaging: Exam Date: 04/14/19 - VL ANK/BRACHIAL INDICES Ankle-brachial indices: Right: Value (SBP) Index Brachial: 153 Posterior tibialis: 171 1.07 Dorsalis pedis: 161 1.01 Digit: 158 0.99 Doppler waveforms (acquired at rest): In the interrogated lower extremity arteries, Doppler waveforms are triphasic in the right lower extremity. Volume pulse recordings (acquired at rest): Volume pulse recordings, measured at the right ankle, measures 31 mm. IMPRESSION: No evidence of claudication or significant arterial insufficiency in the right lower extremity by vascular ultrasound FAY standards. Assess/Plan/Problems-Billing Assessment: Mrs Galarza is a 59yo F with PMH of systolic CHF, CKD stage 4, CAD s/p CABG, PAD s/p multiple stents, HTN, HLD, COPD, CVA, chronically uncontrolled diabetes, with diabetic neuropathy, s/p left BKA, who presented to ED with c/o RLE wound, now transitioning to comfort care/measures. - Patient Problems (1) Acute on chronic systolic (congestive) heart failure Current Visit: Yes Status: Acute Priority: High Code(s): I50.23 - ACUTE ON CHRONIC SYSTOLIC (CONGESTIVE) HEART FAILURE SNOMED Code(s): 559178281 Comment: - Echo 04/24/19 reveal EF 35%, diffuse hypokinesis and mod left pleural effusion - s/p Furosemide, Metalozone, s/p 24 hrs albumin infusion with no significant improvement - has gained 40-50lbs since her prior admissions. - Lengthy conversation about goals of care on 05/02/19. Although she's very clear she would not pursue further surgeries (including amputations), she asks about what else can be done for her edema. Although in the past she was adamant about no HD, she now states she would consider it, "so I can be with my grandson for more time". - Nephrology consultation appreciated - plan for now is to try more aggressive diuresis with Furosemide drip. She understand this is a comfort care measure for symptom relief, and eventually her edema will reaccumulate. She was educated about side effects of Furosemide drip, especially hearing loss. She understands and wants to continue with therapy. Metoloazone added 05/05/19. BMP 05/06. - D/w Dr Hull yesterday and we cut the drip from 10 to 8mg/h. As she gained 2 pounds, he recommended bolusing with 80mg and increasing drip back to 10mg/h. - Continue Morphine concentrate to 5mg to help with air hunger. (2) Type 1 diabetes mellitus on insulin therapy Current Visit: Yes Status: Acute Priority: Medium Code(s): E10.9 - TYPE 1 DIABETES MELLITUS WITHOUT COMPLICATIONS SNOMED Code(s): 10401071 Comment: - Chronically uncontrolled with A1c 17. - Continue Insulin by SS. (3) CKD (chronic kidney disease) stage 4, GFR 15-29 ml/min Current Visit: Yes Status: Acute Code(s): N18.4 - CHRONIC KIDNEY DISEASE, STAGE 4 (SEVERE) SNOMED Code(s): 205178841 Comment: Est GFR 17.8 05/05/19. BMP 05/06. (4) Left upper extremity swelling Current Visit: Yes Status: Acute Priority: Medium Code(s): M79.89 - OTHER SPECIFIED SOFT TISSUE DISORDERS SNOMED Code(s): 048320280 Comment: - Chronic standing issue. In the past, arterial dopplers showed evidence of proximal subclavian stenosis and angiography showed "high grade left subclavian proximal stenosis with subclavian steal. Excellent pinch graft results with balloon expandable stent placement." - LUE doppler negative for DVT. Status and Disposition: Inpatient. Has bed offer at [facility]. Goal is to diurese as much as possible over the next couple days prior to discharge.
[2019-05-05] MEDS ORDERED: Metolazone TAB* 5 MG PO ONE (11:00)
[2019-05-05] MEDS: Furosemide IV* 100 MG in NS 0.9% 100 ML* 90 ML IV SCH (12:24)
[2019-05-05] MEDS: Levofloxacin TAB* 500 MG PO SCH (13:36)
[2019-05-05] MEDS: Gabapentin CAP(*) 400 MG PO SCH (21:19)
[2019-05-05] MEDS: Melatonin 3 MG TAB PO SCH (21:20)
[2019-05-05] MEDS: Pramipexole TAB* 0.5 MG PO SCH (21:21)
[2019-05-05] MEDS: Torsemide TAB* 100 MG PO SCH (21:27)
[2019-05-06] MEDS: Ondansetron INJ* 2 MG/ML VIAL IV PRN (03:16)
[2019-05-06] MEDS ORDERED: Furosemide IV* 10 MG/ML 10 ML VIAL (100 MG) IV ONE (03:32)
[2019-05-06] MEDS: fentaNYL Patch Check Q Shift 1 NOTE FOLLOW UP SCH ×2 (06:55→18:41)
[2019-05-06] MEDS: Insulin LISPRO* 1 UNITS UNIT SUBCUT SCH ×4 (08:44→22:14)
[2019-05-06] MEDS: Metolazone TAB* 5 MG PO SCH (08:47)
[2019-05-06] MEDS: Atorvastatin* 20 MG TAB PO SCH (08:47)
[2019-05-06] MEDS: Aspirin EC TAB* 81 MG TAB.EC PO SCH (08:48)
[2019-05-06] MEDS: Carvedilol TAB* 3.125 MG PO SCH ×2 (08:48→22:11)
[2019-05-06] MEDS: Torsemide TAB* 100 MG PO SCH ×2 (08:48→22:11)
[2019-05-06] MEDS: Cyanocobalamin TAB* 500 MCG PO SCH (08:48)
[2019-05-06] MEDS: Polyethylene Glycol 3350* 17 GM PACKET PO SCH ×2 (08:49→22:10)
[2019-05-06] MEDS: Heparin VIAL(*) 5000 UNITS/ML VIAL (FIVE THOUSAND) SUBCUT SCH ×2 (08:49→22:14)
[2019-05-06] MEDS: Sertraline* 50 MG TAB PO SCH (08:49)
[2019-05-06 09:28] LABS: BUN/Creatinine Ratio 20.9 (8-20); Calcium 8.5 mg/dL (8.6-10.3); EGFR African American 17.9 (>60); EGFR Non-African American 14.8 (>60); Potassium 4.8 mmol/L (3.5-5.0)
--- NOTE | 2019-05-06 13:25 | TRS ---
TRANSFER SUMMARY: DATE OF ADMISSION: DATE OF TRANSFER: 05/06/19 HISTORY: This 59-year-old woman presented with a right lower extremity wound. The history is detail ed in the admission note. The patient had an elevated white blood count and an elevated CRP, increased erythema around the woun d, she had maggots growing in the wound. She also reported gaining 50 pounds of weight in the past month, in a month and a half, although the weight was only a little bit higher than during her last admission. The patient had been getting IV furosemide twice weekly as an outpatient and bumetanide 6 mg p.o. daily. She was felt to have anasar ca. The patient decided to accept hospice care. She will need a hospice referral. She was placed on fur osemide continuous infusion to diuresis, to make her more comfortable. She felt she had lost fluid i n her abdomen. By the day of discharge, she was breathing comfortably, but still has a lot of fluid in her abdomen. She also had a lot of swelling of her left arm. Ultrasound of the left axillary are a did not show any evidence of DVT in the left upper extremity. I note that her A1c was measured at 17. She was given sliding scale insulin. Her renal function is poor. On the day of transfer, her c reatinine had increased to 3.21. It had been ranging about 2.6 to 2.7 for the few days before that. The furosemide infusion was stopped on 05/05/19, and on the evening of 05/05/19, she was started on torsemide 100 mg p.o. b.i.d. I was concerned about her kidney function, I would rather just have enough medications so she could b reathe better and she definitely would rather breathe better. She did, however, want to have blood t est to monitor her kidney function. I recommend she have a basic metabolic profile on 05/08/19. If her weight increases by more than 3 pounds, she can increase her metolazone or torsemide dose. He r metolazone dose was recently increased from 5 to 10 mg daily. If her urine output was greater than 2500 mL per day, I would decrease either the metolazone dose or furosemide dose or both and continue to monitor the urine output for further adjustments. She has a Mckeon catheter which should make this quite easy to do. Daily weights might be helpful as well. She should have about 3 or 4 more doses of levofloxacin at renally adjusted dose for her leg wound. FINAL DIAGNOSES: 1. Congestive heart failure. 2. Diabetes. 3. Chronic kidney disease. 4. Left upper extremity swelling. 5. Leg wound. DISCHARGE MEDICATIONS: 1. Acetaminophen 650 mg every 6 hours p.r.n. 2. Fentanyl patch 25 mcg per hour. 3. Lispro insulin by sliding scale a.c. and h.s. 4. Levofloxacin 500 mg every 48 hours p.o. for 3 or 4 more doses. 5. Melatonin 3 mg h.s. 6. Metolazone 10 mg daily. 7. Morphine oral concentrate 5 mg sublingual every 2 hours p.r.n. 8. Polyethylene glycol 17 g b.i.d. 9. Prochlorperazine 10 mg every 6 hours p.r.n. 10. Torsemide 100 mg p.o. b.i.d. 11. Gabapentin 1200 mg h.s. 12. Pramipexole 0.5 mg h.s. 13. Carvedilol 3.125 mg b.i.d. 14. Aspirin 81 mg daily. CONDITION ON DISCHARGE: Guarded. DISPOSITION ON DISCHARGE: Discharged to [facility]. [id number]/[facility] #: [id number]
[2019-05-06] MEDS: fentaNYL PATCH 25 MCG/HR TRANSDERM SCH (14:10)
[2019-05-06] MEDS: Gabapentin CAP(*) 400 MG PO SCH (22:11)
[2019-05-06] MEDS: Melatonin 3 MG TAB PO SCH (22:11)
[2019-05-06] MEDS: Pramipexole TAB* 0.5 MG PO SCH (22:11)
[2019-05-07] MEDS: fentaNYL Patch Check Q Shift 1 NOTE FOLLOW UP SCH (07:36)
[2019-05-07] MEDS: Insulin LISPRO* 1 UNITS UNIT SUBCUT SCH (08:11)
[2019-05-07] MEDS: Polyethylene Glycol 3350* 17 GM PACKET PO SCH (08:59)
[2019-05-07 09:15] VITALS: BP 170/80
[2019-05-07] MEDS: Metolazone TAB* 5 MG PO SCH (09:15)
[2019-05-07] MEDS: Carvedilol TAB* 3.125 MG PO SCH (09:16)
[2019-05-07] MEDS: Sertraline* 50 MG TAB PO SCH (09:16)
[2019-05-07] MEDS: Aspirin EC TAB* 81 MG TAB.EC PO SCH (09:16)
[2019-05-07] MEDS: Atorvastatin* 20 MG TAB PO SCH (09:16)
[2019-05-07] MEDS: Cyanocobalamin TAB* 500 MCG PO SCH (09:17)
[2019-05-07] MEDS: Heparin VIAL(*) 5000 UNITS/ML VIAL (FIVE THOUSAND) SUBCUT SCH (09:17)
[2019-05-07] MEDS: Torsemide TAB* 100 MG PO SCH (09:21)
== END 2019-05-07 09:30 | DRG 291 ==
LOC: ED 15:40 → MEDTELE 21:18
PROVIDERS: ADMIT Internal Medicine; ATTEND Internal Medicine
DX: I13.0 Hypertensive heart and chronic kidney disease with heart failure and stage 1 through stage 4 chronic kidney disease, or unspecified chronic kidney disease (principal); I50.23 Acute on chronic systolic (congestive) heart failure; N18.4 Chronic kidney disease, stage 4 (severe); L97.919 Non-pressure chronic ulcer of unspecified part of right lower leg with unspecified severity; J98.11 Atelectasis; I25.10 Atherosclerotic heart disease of native coronary artery without angina pectoris; E10.621 Type 1 diabetes mellitus with foot ulcer; E10.51 Type 1 diabetes mellitus with diabetic peripheral angiopathy without gangrene; E10.42 Type 1 diabetes mellitus with diabetic polyneuropathy; I65.29 Occlusion and stenosis of unspecified carotid artery; E10.65 Type 1 diabetes mellitus with hyperglycemia; R33.9 Retention of urine, unspecified; E10.22 Type 1 diabetes mellitus with diabetic chronic kidney disease; E78.5 Hyperlipidemia, unspecified; J44.9 Chronic obstructive pulmonary disease, unspecified; M10.9 Gout, unspecified; E10.43 Type 1 diabetes mellitus with diabetic autonomic (poly)neuropathy; K31.84 Gastroparesis; E04.9 Nontoxic goiter, unspecified; E78.00 Pure hypercholesterolemia, unspecified; G47.30 Sleep apnea, unspecified; M19.90 Unspecified osteoarthritis, unspecified site; M79.7 Fibromyalgia; G25.81 Restless legs syndrome; M41.9 Scoliosis, unspecified; G43.909 Migraine, unspecified, not intractable, without status migrainosus; E10.36 Type 1 diabetes mellitus with diabetic cataract; H91.90 Unspecified hearing loss, unspecified ear; F41.9 Anxiety disorder, unspecified; F32.9 Major depressive disorder, single episode, unspecified; F17.210 Nicotine dependence, cigarettes, uncomplicated; Z66 Do not resuscitate; I87.8 Other specified disorders of veins; E10.649 Type 1 diabetes mellitus with hypoglycemia without coma; B95.61 Methicillin susceptible Staphylococcus aureus infection as the cause of diseases classified elsewhere; E66.9 Obesity, unspecified; Z68.34 Body mass index [BMI] 34.0-34.9, adult; Z95.1 Presence of aortocoronary bypass graft; Z89.512 Acquired absence of left leg below knee; Z86.73 Personal history of transient ischemic attack (TIA), and cerebral infarction without residual deficits; Z95.828 Presence of other vascular implants and grafts; Z90.49 Acquired absence of other specified parts of digestive tract; Z95.0 Presence of cardiac pacemaker; Z88.1 Allergy status to other antibiotic agents; Z88.0 Allergy status to penicillin; Z88.2 Allergy status to sulfonamides; Z88.5 Allergy status to narcotic agent; Z88.8 Allergy status to other drugs, medicaments and biological substances; Z91.030 Bee allergy status; Z95.5 Presence of coronary angioplasty implant and graft; I25.2 Old myocardial infarction; Z86.711 Personal history of pulmonary embolism; Z87.440 Personal history of urinary (tract) infections; Z87.01 Personal history of pneumonia (recurrent); Z97.4 Presence of external hearing-aid; Z98.1 Arthrodesis status; Z90.710 Acquired absence of both cervix and uterus; Z79.82 Long term (current) use of aspirin; Z79.4 Long term (current) use of insulin
CPT/HCPCS: 36415; 71046; 74176; 80048; 80053; 80061; 80076; 80202; 81003; 81015; 82040; 82140; 83036; 83605; 83735; 83880; 84100; 84484; 85025; 85610; 85652; 86140; 87040; 87070; 87077; 87086; 87186; 87205; 87640; 87641; 93005; 93306; 99284; A9270-GY; C8929; G8978-GP-CL; G8979-GP-CI; J1642; J1644; J1940; J2270; J2405; J3370; J3480; P9047; Q0164

== ENCOUNTER 2019-07-22 09:02 | Emergency (ER) | payer MEDICARE, OTHER ==
--- NOTE | 2019-07-22 09:43 | ED ---
Skin Complaint - HPI Summary HPI Summary: 59 year old F [facility] accompanied by daughter complains of worsening wounds on her right lower extremity, right ankle, and right buttock since several days ago. Patient reports pain in these areas described as burning. Daughter states that patient had a black spot on her right lower extremity that came off a few days ago, and became erythematous, which has worsened since yesterday. Daughter states that patient had a bubble on her right ankle that popped this morning and is now erythematous. Patient additionally has shortness of breath. The patient rates the pain 9/10 in severity. Symptoms aggravated by nothing. Symptoms alleviated by nothing. Patient states she took an additional diuretics yesterday and last night. Patient has been seen by [facility], last time being several months ago. States that last time she was seen at [facility], she was admitted to the hospital, discharged to senior living in [place], then discharged from senior living 1-1.5 months ago. Has been seeing Dr. León, primary care provider, last time being 07/07/19. States that Dr. León called patient on 07/20/19 and referred to the ED if her wounds worsen. Has an appointment at [facility] on 07/28/19. - History of Current Complaint Chief Complaint: EDRashSkinAbscess Time Seen by Provider: 07/22/19 09:31 Stated Complaint: OPEN WOUND ON RIGHT LEG/SOB PER PT Hx Obtained From: Patient, Family/See[employer] - daughter Onset/Duration: Started Days Ago, Still Present Skin Exposure Onset/Duration: Days Ago Timing: Constant Current Severity: Severe Pain Intensity: 9 Pain Scale Used: 0-10 Numeric Skin Location: Other: - right lower extremity, right ankle, and right buttock Aggravating Symptom(s): Nothing Alleviating Symptom(s): Nothing - Additional Pertinent History Primary Care Physician: [id number] - Allergy/Home Medications Allergies/Adverse Reactions: Allergies Allergy/AdvReac Type Severity Reaction Status Date / Time bee venom protein (honey bee) Allergy Anaphylatic Verified 05/10/19 15:37 Shock Cephalosporins Allergy Shortness Verified 05/10/19 15:37 of Breath diphenhydramine Allergy Difficulty Verified 05/10/19 15:37 [From Benadryl] Breathing Penicillins Allergy Hives Verified 05/10/19 15:37 Sulfa (Sulfonamide Allergy Hives Verified 05/10/19 15:37 Antibiotics) codeine AdvReac GI Upset Verified 05/10/19 15:37 PMH/Surg Hx/FS Hx/Imm Hx Endocrine/Hematology History: Reports: Hx Anticoagulant Therapy, Hx Blood Transfusions, Hx Diabetes, Hx Thyroid Disease - Goiter, Hx Anemia, Other Endocrine/Hematological Disorders - anemia Denies: Hx Systemic Lupus Erythematosus Cardiovascular History: Reports: Hx Angioplasty, Hx Auto Implanted Cardiovert Defib, Hx Cardiac Arrest, Hx Congestive Heart Failure, Hx Coronary Artery Disease, Hx Hypercholesterolemia, Hx Hypertension, Hx Myocardial Infarction, Hx Pacemaker/ICD, Hx Peripheral Vascular Disease, Hx Valvular Heart Disease, Other Cardiovascular Problems/Disorders - triple bypass in [place], hyperlipidemia, ICD, carotid endarterectomy Denies: Hx Angina Respiratory History: Reports: Hx Asthma, Hx Chronic Bronchitis, Hx Chronic Obstructive Pulmonary Disease (COPD), Hx Pneumonia, Hx Pulmonary Edema, Hx Pulmonary Embolism, Hx Seasonal Allergies, Hx Sleep Apnea, Other Respiratory Problems/Disorders - respiratory failure, uses home oxygen GI History: Reports: Hx Gall Bladder Disease Denies: Hx Ulcer, Other GI Disorders History: Reports: Hx Chronic Renal Failure, Other Problems/Disorders - recent UTI Denies: Hx Dialysis, Hx Renal Disease Musculoskeletal History: Reports: Hx Arthritis, Hx Back Problems, Hx Fibromyalgia, Hx Scoliosis, Other Musculoskeletal History - left below knee amputation, restless leg syndrome, osteomyelitis Denies: Hx Rheumatoid Arthritis, Hx Osteoporosis Sensory History: Reports: Hx Cataracts - no surgery needed yet, Hx Contacts or Glasses, Hx Vision Problem, Hx Hearing Problem - R ear numbness and decreased hearing r/t TIA per pt Denies: Hx Deafness, Hx Hearing Aid Opthamlomology History: Reports: Hx Cataracts - no surgery needed yet, Hx Contacts or Glasses, Hx Vision Problem Neurological History: Reports: Hx Migraine, Hx Nerve Disease - Diabetic Peripheral Neuropathy, Hx Seizures - reports last one 30 yrs ago, Hx Transient Ischemic Attacks (TIA), Other Neuro Impairments/Disorders - peripheral neuropathy Denies: Hx Dementia Psychiatric History: Reports: Hx Anxiety, Hx Depression Denies: Hx Panic Disorder - Cancer History Hx Chemotherapy: No - Surgical History Surgery Procedure, Year, and Place: CARDIAC STENTS(4 PROMUS AND 1 VISIPRO PLACED AT [facility]1.5T ONLY DUE TO CONDITIONAL STATUS OF MAX SPAT. GRAD. 720), TRIPLE BYPASS, BILATERAL CAROTID ENDARTERECTOMY ,LAP ADDY,HYSTERECTOMY,LEFT GREAT TOE AMPUTATION,APPY, T&A ,STERNAL WIRES ,LUMBAR SPINE FUSION,CSP FUSION , C SECTION,BACK SURGERY-LASER SURGERY. defib,port, left below knee amputation jul 2017 Hx Anesthesia Reactions: No - Immunization History Date of Tetanus Vaccine: 2015 Date of Influenza Vaccine: 2015 Infectious Disease History: No Infectious Disease History: Reports: Hx Clostridium Difficile, Hx of Known/ Suspected MRSA Denies: Hx Hepatitis, Hx Human Immunodeficiency Virus (HIV), Hx Shingles, Hx Tuberculosis, Hx Known/Suspected VRE, Hx Known/Suspected VRSA, History Other Infectious Disease, Traveled Outside the [place] in Last 30 Days - Family History Known Family History: Positive: Unknown - Pt is adopted and does not know her FHx - Social History Alcohol Use: None Hx Substance Use: No Substance Use Type: Reports: None Hx Tobacco Use: Yes Smoking Status (MU): Current Every Day Smoker Type: Cigarettes Amount Used/How Often: 5 cig/day Length of Time of Smoking/Using Tobacco: 30 years Have You Smoked in the Last Year: Yes Review of Systems Positive: Shortness Of Breath Positive: Other - wounds on, pain in, and erythema in her right lower extremity , right ankle, and right buttock All Other Systems Reviewed And Are Negative: Yes Physical Exam - Summary Physical Exam Summary: Appearance: The patient is well-nourished in no acute distress and in no acute pain. Skin: The skin is warm and dry, and skin color reflects adequate perfusion. She has an open ulcer on right lateral lower leg which is surrounded by erythema and not quite circumferential. She has a blister on her right lateral heel which is collapsed and surrounded by erythema. She has a clean blister on great and second toes. HEENT: The head is normocephalic and atraumatic. The pupils are equal and reactive. The conjunctivae are clear and without drainage. Nares are patent and without drainage. Mouth reveals moist mucous membranes, and the throat is without erythema and exudate. The external ears are intact. The ear canals are patent and without drainage. The tympanic membranes are intact. Neck: The neck is supple with full range of motion and non-tender. There are no carotid bruits. There is no neck vein distension. Respiratory: Chest is non-tender. Lungs are clear to auscultation and breath sounds are symmetrical and equal. Cardiovascular: Heart is regular rate and rhythm. There is no murmur or rub auscultated. There is no peripheral edema and pulses are symmetrical and equal. Abdomen: The abdomen is soft and non-tender. There are normal bowel sounds heard in all four quadrants and there is no organomegaly palpated. Musculoskeletal: There is no back tenderness noted. Extremities are non-tender with full range of motion. There is good capillary refill. There is no peripheral edema or calf tenderness elicited. Neurological: Patient is alert and oriented to person, place and time. The patient has symmetrical motor strength in all four extremities. Cranial nerves are grossly intact. Deep tendon reflexes are symmetrical and equal in all four extremities. Psychiatric: The patient has an appropriate affect and does not exhibit any anxiety or depression. Triage Information Reviewed: Yes Vital Signs On Initial Exam: Initial Vitals Temp Pulse Resp BP Pulse Ox 97.2 F 78 14 151/94 97 07/22/19 09:06 07/22/19 09:06 07/22/19 09:06 07/22/19 09:06 07/22/19 09:06 Vital Signs Reviewed: Yes Procedures - Sedation Patient Received Moderate/Deep Sedation with Procedure: No Diagnostics - Vital Signs Vital Signs Temp Pulse Resp BP Pulse Ox 07/22/19 09:06 97.2 F 78 14 151/94 97 - Laboratory Result Diagrams: 07/22/19 10:00 07/22/19 10:00 Lab Statement: Any lab studies that have been ordered have been reviewed, and results considered in the medical decision making process. - Radiology Right foot x-ray Radiology Interpretation Completed By: Radiologist Summary of Radiographic Findings: Deformity proximal phalanx fifth digit which may represent fracture. No osteopenia is noted. ED physician has reviewed this report. Right ankle x-ray Radiology Interpretation Completed By: Radiologist Summary of Radiographic Findings: There appears to be avulsion off the posterior calcaneus with retraction of the posterior calcaneus. Diffuse osteopenia is noted. ED physician has reviewed this report. Re-Evaluation - Re-Evaluation First Eval Re-Evaluation Time: 11:11 Change: Improved Comment: patient feels better after pain medication. she states she does not want to be admitted. she is agreeable to discharge and will follow up with her primary care provider this week Course/Dx - Course Course Of Treatment: Ms. Galarza has some bad diabetic ulcers. There is some surrounding erythema and she has a leukocytosis of 16K. X-rays are negative for osteomyelitis but I recommended that she come in to the hospital for IV antibiotics. She is adamant about not staying and I will try PO Doxycyline. She is allergic to PCN and cephalosporins. - Diagnoses Provider Diagnoses: Diabetic foot ulcer Discharge ED - Sign-Out/Discharge Documenting (check all that apply): Patient Departure - Discharge - Discharge Plan Condition: Stable Disposition: HOME Prescriptions: DOXYcycline CAP(*) [DOXYcycline 100MG CAP(*)] 100 mg PO BID #20 cap Patient Education Materials: Diabetic Foot Ulcers (ED) Referrals: Matilde León MD [Primary Care Provider] - 1 Week Additional Instructions: Follow up with your primary care provider this week. Return to the Emergency Department for new or worsening symptoms. - Billing Disposition and Condition Condition: STABLE Disposition: Home - Attestation Statements Document Initiated by Hanny: Yes Documenting Scribe: Monica Lindsey Provider For Whom Hanny is Documenting (Include Credential): Jatinder Padilla MD Scribe Attestation: Monica Wallace, scribed for Jatinder Padilla MD on 07/22/19 at 1232. Scribe Documentation Reviewed: Yes Provider Attestation: The documentation as recorded by the Monica sherwood accurately reflects the service I personally performed and the decisions made by me, Jatinder Padilla MD Status of Scribe Document: Viewed
--- OUTSIDE RECORDS SUMMARY | 2019-07-22 09:54 | XMS REPORT | Continuity of Care Document ---
:1960 External Reference #:[id number] Author Name Tressa Arnold NP (transmitted by agent of provider Reena Novak) Address [address] [place] [id number] Care Team Providers Name Role Phone Dinesh Adams MD - Orthopaedic Care Team Information Rn Chronic [phone] Surgery Tom Hess MD - Orthopaedic Care Team Information Rn Chronic Surgery Janusz Cutler M.D. - Hematology & Care Team Information Rn Chronic [phone] Oncology Guero Rod MD - Endocrinology, Care Team Information Rn Chronic [phone] Diabetes & Metabolism Rafael Hull MD - Nephrology Care Team Information Rn Chronic Wound Clinic - Clinic/Center Care Team Information Rn Chronic [phone] Problems Active Problems Provider Date Type 2 diabetes mellitus Bernard Bonilla M.D.,FACP Onset: 09/18/2010 Aortocoronary Bypass Postsurgical Bernard Bonilla M.D.,JOAQUINA Onset: 2009 Status Benign essential hypertension Moises Valdes M.D. Onset: 05/14/2011 Mixed hyperlipidemia Moises Valdes M.D. Onset: 05/14/2011 Carotid artery occlusion Moises Valdes M.D. Onset: 06/10/2011 Atherosclerosis of arteries of the Amymelissa Pompa, N.P. Onset: 04/04/2012 extremities Spinal stenosis of lumbar region Cedrick Toscano M.D. Onset: 11/16/2013 Diabetic polyneuropathy Amira Lyon M.D. Onset: 05/07/2015 Restless legs Amira Lyon M.D. Onset: 05/07/2015 Atherosclerotic heart disease of Moises Valdes M.D. Onset: 08/27/2015 [place] coronary artery without angina pectoris Gastroparesis syndrome Arleen Pacheco M.D. Onset: 03/15/2018 Long-term current use of insulin Arleen Pacheco M.D. Onset: 03/15/2018 Anemia of chronic renal failure Arleen Pacheco M.D. Onset: 03/16/2018 Chronic obstructive lung disease Arleen Pacheco M.D. Onset: 03/16/2018 Amputated below knee OSCAR Brown Onset: 03/21/2018 Hypertensive heart and chronic kidney Tressa Arnold NP Onset: disease with heart failure and stage 1 through stage 4 chronic kidney disease, or unspecified chronic kidney disease Peripheral vascular disease Tressa Arnold NP Onset: 04/25/2018 Retention of urine Jeana Cruz DO Onset: 04/28/2018 Gout Jolanta Mckinley D.O. Onset: 05/04/2018 Chronic combined systolic and Tom Vale M.D. Onset: 07/05/2018 diastolic heart failure Chronic ulcer of calf Graham Zavala M.D. Onset: 04/19/2019 Social History Type Date Description Comments Sex Unknown Tobacco Use Reviewed: 04/25/18 Light tobacco smoker (10 or fewer cigarettes/day) Tobacco Use Start: Unknown 1 cig per day Smoking Status Reviewed: 07/13/19 Light tobacco smoker (10 or fewer cigarettes/day) ETOH Use Denies alcohol use Recreational Drug Use Denies Drug Use Tobacco Use Start: Unknown Light tobacco smoker pt smokes 1 cig (10 or fewer per day cigarettes/day) Exercise Type/Frequency Exercises sporadically Allergies, Adverse Reactions, Alerts Active Allergies Reaction Severity Comments Date Penicillin break out in rash 04/22/2010 Sulfa HIVES 07/19/2012 Cefazolin 07/27/2013 Vancomycin IV vanco 07/28/2013 Bee Sting Anaphylaxis, swelling 05/28/2014 and hives Meropenem diarrhea 06/19/2014 Doxycycline facial swelling,and 02/12/2015 redness itching Benadryl hives 07/18/2015 Reglan "made me feel weird" 03/29/2018 Medications Active Medications SIG Qnty Indications Ordering Date Provider Potassium Chloride 1 tablet bid 60tabs E13.8 Matilde 07/09/2019 Alana ER Herbert León 10Meq Tablets ER Coreg 1 by mouth twice 60tabs Matilde 06/26/2019 6.25mg Tablets a day Herbert León Gait/Transfer Belt For daily use unbe06/26/2019 [place] when walking Herbert León Opticell 6" x 6" square. [facility] L97.919 Matilde 06/23/2019 (Chitosan-Based Apply to wound q Herbert León Gelling Fiber) 3 days Plurogel Apply to dressing 50gm L97.919 Matilde 06/23/2019 every 3 days Herbert León Dulera 2 puffs once 8.800gm Matilde 06/23/2019 100-5mcg/Act daily Herbert León Aerosol Atorvastatin Calcium 1 by mouth every 30tabs Matilde 06/23/2019 20mg day Herbert León Tablets Metolazone 1 PO qd 30tabs Matilde 06/23/2019 10mg Tablets Herbert León Sertraline HCL 1 by mouth every 30tabs Matilde 06/23/2019 50mg day Herbert León Tablets Spiriva Handihaler inhale the 30caps Matilde 06/23/2019 18mcg contents of one Herbert León Capsules capsule in the handihaler once daily Pramipexole 1 PO QHS 30tabs Matilde 06/23/2019 Dihydrochloride Herbert León 0.5mg Tablets Torsemide 1 PO bid 60tabs Matilde 06/23/2019 100mg Tablets Herbert León Wheelchair Cushion [facility] Z89.9 Matilde 06/23/2019 [place] wheelchair Herbert León Lantus Solostar inject 20 units 30ml Matilde 04/20/2019 once daily in am Herbert León 100Unit/ML Solution (increased to 35 Pen-Inject units at hs per pt) Humalog Kwikpen 10 units s/c 30ml Matilde 04/14/2019 before meals, Herbert León 100Unit/ML Solution increase to 15 as Pen-Inject needed to maintain blood sugar under 300 Pen [place] 1/2" for use 3 times a 100units E11.65 Matilde 04/14/2019 29G X day with insulin Herbert León 12mm Mis pen Z79.4 Vitamin B-12 1 by mouth every day 30tabs [facility], 03/14/2019 M.D. 1000mcg Tablets Insulin substitution okay; use 150units E13.8 Oscar Hdez MD 02/23/2019 Syringe/0.3ML/30G 4 times/day for X 02/23" insulin injection 30G X 02/23" 0.3 ML [place] Morphine Sulfate 10 to 40 mg. every 2 30ml G47.00 [facility], 2018 (Concentrate) hours as needed for M.D. pain or sob 20mg/ml Solution I50.23 Alprazolam 1 tablets by mouth 30tabs [facility], 10/31/2018 0.25mg three times daily M.D. Tablets as needed for anxiety Imodium A-D 2 tabs by mouth 30tabs [facility], 11/25/2017 2mg with first loose M.D. Tablets stool, followed by 1 by mouth as needed loose stool up to max 4 per day Freestyle Lite Test 4x a day and as 100units E11.69 Estela Lackey N.P. Strips needed dx e11.69 Strips Nitrostat one sl q 5min up to 25tabs [facility], 11/02/2011 0.4mg 3 doses as needed M.D. Tablets Sub chest pain Gabapentin 2 PO QHS 60tabs [facility], 08/27/2010 600mg M.D. Tablets Aspir-81 1 by mouth every Unknown 81mg Tablets day DR Emerson please use o2 nc as Matilde Cotton, Misc needed M.D. Tylenol 8 Hour 1 tab every 4 hours Unknown 650mg as needed Tablets ER Ferrous Sulfate Take one by mouth 30tabs [facility], 325mg with a glass of M.D. Tablets orange juice twice a week. If tolerated, increase gradually to every day History Medications Chantix Starting Month take as 42tabs [facility] 06/23/2019 - Abdi directed Herbert León 07/06/2019 0.5mg X 11 & 1 mg X 42 Tablets Pramipexole 1 tab by mouth 30tabs [facility] 04/08/2019 - Dihydrochloride at bedtime Herbert León 06/23/2019 0.125mg Tablets Furosemide 80 mg IV 30ml [facility] 03/17/2019 - 10mg/ml infusion via Herbert León 06/23/2019 Solution port twice weekly Clindamycin HCL 1 by mouth four 40caps L03.115 [facility] 02/28/2019 - 300mg times a day for Herbert León 03/16/2019 Capsules 10 days Novolin R Relion 8 units with 10ml Oscar Hdez MD 02/24/2019 - meals, MDD 30 03/24/2019 100Unit/ML Solution Novolin N Relion 8 units at 10ml Oscar Hdez MD 02/24/2019 - bedtime, MDD 30 03/24/2019 100Unit/ML Suspension Novolog use three times 20ml E13.8 Oscar Hdez MD 02/23/2019 - 100Unit/ML daily with 03/24/2019 Solution meals, mdd 60 units Potassium Chloride 1 tablet daily 30tabs E13.8 Oscar Hdez MD 02/23/2019 - Alana ER 06/23/2019 10Meq Tablets ER Senna-S [facility] 02/10/2019 - 8.6-50mg Tablets Herbert León 06/23/2019 Nicotine Polacrilex Chew one piece 150units Z87.891 [facility] 02/10/2019 - 2mg every 2-4 hours Herbert León 06/23/2019 Gum Senna-Docusate Sodium [facility] 02/10/2019 - Herbert León 06/23/2019 8.6-50mg Tablets Monurol Mix One Packet 3units [facility] 01/17/2019 - Granules Abdi With 3 Ounces Herbert León 02/10/2019 Of [place] Every 3 Days Immunizations CPT Code Status Date Vaccine Lot # [id number] Given 11/05/2017 Influenza Virus Vaccine, Quadrivalent, Split, [id number] Preservative Free 22876 Given 10/20/2016 Influ Virus Vaccine, Quadrivalent, Split Virus, [place] [id number] [address] Given 09/12/2015 Influenza Virus Vaccine, Quadrivalent, Split, [id number] Preservative Free 05788 Given 06/15/2013 Pneumonia Vaccine 13271 Given 10/11/2012 Pneumonia Vaccine [id number] 48211 Given 10/11/2010 Tetanus And Diptheria (Td) For Adult Use Preservative Free 23134 Given 07/20/2010 Influenza Virus 3Yrs & Over Vital Signs Date Vital Result Comment 07/13/2019 2:15pm Heart Rate 91 /min BP Systolic Sitting 148 mmHg BP Diastolic Sitting 98 mmHg Respiratory Rate 14 /min Body Temperature 98.1 F O2 % BldC Oximetry 92 % 07/07/2019 2:28pm Weight 137.00 lb per pt Heart Rate 84 /min BP Systolic Sitting 138 mmHg BP Diastolic Sitting 74 mmHg Respiratory Rate 14 /min Body Temperature 98.5 F Results Test Date Facility Test Result H/L Range Note Comp Metabolic Panel 07/07/2019 [facility] Sodium 129 mmol/L Low 135-[address] [place] [address] [phone] Potassium 2.8 mmol/L Low 3.5-5.0 Chloride 90 mmol/L Low 101-111 Co2 Carbon Dioxide 28 mmol/L Normal 22-32 Anion Gap 11 mmol/L Normal 2-11 Glucose 75 mg/dL Normal 70-100 Blood Urea Nitrogen 49 mg/dL High 6-24 Creatinine 2.63 mg/dL High 0.51-0.95 BUN/Creatinine Ratio 18.6 Normal 8-20 Calcium 8.7 mg/dL Normal 8.6-10.3 Total Protein 6.3 g/dL Low 6.4-8.9 Albumin 2.9 g/dL Low 3.2-5.2 Globulin 3.4 g/dL Normal 2-4 Albumin/Globulin Ratio 0.9 Low 1-3 Total Bilirubin 0.60 mg/dL Normal 0.2-1.0 Alkaline Phosphatase 216 U/L High 34-104 Alt 10 U/L Normal 7-52 Ast 13 U/L Normal 13-39 Egfr Non- 18.7 >60 Egfr 22.6 >60 1 Laboratory test 07/07/2019 [facility] Hemoglobin A1c 11.2 % High 4.0-5.[address] (Glyco HGB) [place] [address] [phone] CBC Auto Diff 07/07/2019 [facility] White Blood 10.9 High 3.5- 10.[address] Count 10^3/[place] [address] [phone] Red Blood Count 3.07 10^6/uL Low 3.70-4.87 Hemoglobin 7.7 g/dL Low 12.0-16.0 Hematocrit 24 % Low 35-47 Mean Corpuscular Volume 78 fL Low 80-97 Mean Corpuscular Hemoglobin 25 pg Low 27-31 Mean Corpuscular HGB Conc 32 g/dL Normal 31-36 Red Cell Distribution Width 32 % High 10-15 Platelet Count 605 10^3/uL High 150-450 Mean Platelet Volume 8.1 fL Normal 7.4-10.4 Abs Neutrophils 8.1 10^3/uL High 1.5-7.7 Abs Lymphocytes 1.6 10^3/uL Normal 1.0-4.8 Abs Monocytes 0.9 10^3/uL High 0-0.8 Abs Eosinophils 0.2 10^3/uL Normal 0-0.6 Abs Basophils 0.2 10^3/uL Normal 0-0.2 Abs Nucleated RBC 0.0 10^3/uL Granulocyte % 74.1 % Lymphocyte % 14.3 % Monocyte % 8.1 % Eosinophil % 1.9 % Basophil % 1.6 % Nucleated Red Blood Cells % 0.3 Laboratory 07/07/2019 [facility] TSH (Thyroid 1.63 Normal 0.34 -5.[address] Stim Horm) mcIU/[place] [address] [phone] Cell 07/07/2019 [facility] Macrocytosis 2+ Morphology [address] [place] [address] [phone] Microcytosis 2+ Hypochromasia 1+ Polychromasia 1+ Anisocytosis 3+ Laboratory test 07/07/2019 [facility] Pathologist (SEE NOTE) [address] [place] [address] [phone] Order 06/20/2019 [facility] Hospice <pending> [address] [place] [address] [phone] Laboratory test 04/24/2019 [facility] B-Type > 1300 High <=[address] Natriuretic pg/mL 0 [place] [address] Peptide BNP [phone] Laboratory test 04/24/2019 [facility] Blood Culture SEE RESULT [address] [place] [address] [phone] Urine Culture And 04/24/2019 [facility] Urine Culture SEE RESULT [address] [place] [address] [phone] Urinalysis Profile 04/24/2019 [facility] Urine Color Yellow [address] [place] [address] [phone] Urine Appearance Clear Urine Specific Grants 1.012 Normal 1.010-1.030 Urine pH 6.0 Normal 5-9 Urine Urobilinogen Negative Negative Urine Ketones Negative Negative Urine Protein 2+(100 mg/dL) Abnormal Negative Urine Leukocytes Negative Negative Urine Blood 1+ Abnormal Negative Urine Nitrite Negative Negative Urine Bilirubin Negative Negative Urine Glucose 3+(>=500 mg/dL) Abnormal Negative Urine White Blood Cell 3+(>20/hpf) Abnormal Absent Urine Red Blood Cell 1+(3-5/hpf) Abnormal Absent Urine Bacteria 1+ Abnormal Absent Laboratory test 04/24/2019 [facility] C Reactive 50.47 mg/L High <8.[address] [place] [address] [phone] Troponin-I (TnI) 0.29 ng/mL Critical high <0.04 6 Lactic Acid 1.2 mmol/L Normal 0.5-2.0 7 Comp Metabolic Panel 04/24/2019 [facility] Sodium 130 mmol/L Low 135-[address] [place] [address] [phone] Potassium 4.7 mmol/L Normal 3.5-5.0 Chloride 95 mmol/L Low 101-111 Co2 Carbon Dioxide 29 mmol/L Normal 22-32 Anion Gap 6 mmol/L Normal 2-11 Glucose 484 mg/dL High 70-100 Blood Urea Nitrogen 36 mg/dL High 6-24 Creatinine 2.22 mg/dL High 0.51-0.95 BUN/Creatinine Ratio 16.2 Normal 8-20 Calcium 8.5 mg/dL Low 8.6-10.3 Total Protein 5.6 g/dL Low 6.4-8.9 Albumin 2.5 g/dL Low 3.2-5.2 Globulin 3.1 g/dL Normal 2-4 Albumin/Globulin Ratio 0.8 Low 1-3 Total Bilirubin 0.60 mg/dL Normal 0.2-1.0 Alkaline Phosphatase 253 U/L High 34-104 Alt 7 U/L Normal 7-52 Ast 10 U/L Low 13-39 Egfr Non- 22.7 >60 Egfr 27.5 >60 8 Inr/Protime 04/24/2019 [facility] Inr 1.12 High 0.82-1.[address] [place] [address] [phone] CBC Auto Diff 04/24/2019 [facility] White Blood 14.2 High 3.5- 10.[address] Count 10^3/[place] [address] [phone] Red Blood Count 4.28 10^6/uL Normal 3.70-4.87 Hemoglobin 9.7 g/dL Low 12.0-16.0 Hematocrit 33 % Low 35-47 Mean Corpuscular Volume 76 fL Low 80-97 Mean Corpuscular Hemoglobin 23 pg Low 27-31 Mean Corpuscular HGB Conc 30 g/dL Low 31-36 Red Cell Distribution Width 22 % High 10-15 Platelet Count 433 10^3/uL Normal 150-450 Mean Platelet Volume 8.7 fL Normal 7.4-10.4 Abs Neutrophils 12.1 10^3/uL High 1.5-7.7 Abs Lymphocytes 0.9 10^3/uL Low 1.0-4.8 Abs Monocytes 0.8 10^3/uL Normal 0-0.8 Abs Eosinophils 0.1 10^3/uL Normal 0-0.6 Abs Basophils 0.2 10^3/uL Normal 0-0.2 Abs Nucleated RBC 0.0 10^3/uL Granulocyte % 85.6 % Lymphocyte % 6.6 % Monocyte % 5.6 % Eosinophil % 0.9 % Basophil % 1.3 % Nucleated Red Blood Cells % 0.3 Laboratory 04/24/2019 [facility] Troponin-I 0.26 Critical < 0.04 10 test finding [address] (TnI) ng/[place] [address] [phone] Laboratory 04/24/2019 [facility] Point of Care > 444 Critical 70-100 11 test finding [address] Glucose mg/[place] [address] [phone] Laboratory 04/14/2019 [facility] Ferritin 40.1 Normal 11-307 test finding [address] ng/[place] [address] [phone] Iron & Iron 04/14/2019 [facility] Total Iron 361 Normal 250- [address] Binding g/[place] [address] Capacity [phone] Transferrin 258 mg/dL Normal 203-362 Iron < 17 g/dL Low 50-212 Unsaturated Iron Binding < 346 g/dL % Iron Saturation 5 % Low 15-55 CBC Auto 04/14/2019 [facility] White Blood 13.7 10^3/uL High 3.5-10.[address] [place] [address] [phone] Red Blood Count 3.71 10^6/uL Normal 3.70-4.87 Hemoglobin 8.6 g/dL Low 12.0-16.0 Hematocrit 30 % Low 35-47 Mean Corpuscular Volume 80 fL Normal 80-97 Mean Corpuscular Hemoglobin 23 pg Low 27-31 Mean Corpuscular HGB Conc 29 g/dL Low 31-36 Red Cell Distribution Width 21 % High 10-15 Platelet Count 455 10^3/uL High 150-450 Mean Platelet Volume 9.5 fL Normal 7.4-10.4 Abs Neutrophils 12.1 10^3/uL High 1.5-7.7 Abs Lymphocytes 0.7 10^3/uL Low 1.0-4.8 Abs Monocytes 0.6 10^3/uL Normal 0-0.8 Abs Eosinophils 0.1 10^3/uL Normal 0-0.6 Abs Basophils 0.1 10^3/uL Normal 0-0.2 Abs Nucleated RBC 0.0 10^3/uL Granulocyte % 88.6 % Lymphocyte % 5.1 % Monocyte % 4.6 % Eosinophil % 1.0 % Basophil % 0.7 % Nucleated Red Blood Cells % 0.1 Laboratory test 04/14/2019 [facility] B-Type > 1300 High <= [address] Natriuretic pg/[place] [address] Peptide BNP [phone] Comp Metabolic 04/14/2019 [facility] Sodium 126 Low 135-[address] mmol/[place] [address] [phone] Potassium 4.4 mmol/L Normal 3.5-5.0 Chloride 93 mmol/L Low 101-111 Co2 Carbon Dioxide 25 mmol/L Normal 22-32 Anion Gap 8 mmol/L Normal 2-11 Blood Urea Nitrogen 40 mg/dL High 6-24 Creatinine 2.10 mg/dL High 0.51-0.95 BUN/Creatinine Ratio 19.0 Normal 8-20 Calcium 8.1 mg/dL Low 8.6-10.3 Total Protein 5.4 g/dL Low 6.4-8.9 Albumin 2.3 g/dL Low 3.2-5.2 Globulin 3.1 g/dL Normal 2-4 Albumin/Globulin Ratio 0.7 Low 1-3 Total Bilirubin 0.30 mg/dL Normal 0.2-1.0 Alkaline Phosphatase 249 U/L High 34-104 Alt 8 U/L Normal 7-52 Ast 10 U/L Low 13-39 Egfr Non- 24.2 >60 Egfr 29.3 >60 12 Glucose 796 mg/dL Critical high 70-100 13 Basic Metabolic 03/30/2019 [facility] Sodium 126 mmol/L Low 135-[address] [place], [place] [address] [phone] Potassium 3.7 mmol/L Normal 3.5-5.0 Chloride 93 mmol/L Low 101-111 Co2 Carbon Dioxide 26 mmol/L Normal 22-32 Anion Gap 7 mmol/L Normal 2-11 Blood Urea Nitrogen 36 mg/dL High 6-24 Creatinine 2.39 mg/dL High 0.51-0.95 BUN/Creatinine Ratio 15.1 Normal 8-20 Calcium 8.3 mg/dL Low 8.6-10.3 Egfr Non- 20.9 >60 Egfr 25.3 >60 14 Glucose 566 mg/dL Critical high 70-100 15 Liver Function 03/30/2019 [facility] Total Protein 5.3 g/dL Low 6.4-8.[address] [place] [address] [phone] Albumin 2.4 g/dL Low 3.2-5.2 Globulin 2.9 g/dL Normal 2-4 Albumin/Globulin Ratio 0.8 Low 1-3 Total Bilirubin 0.30 mg/dL Normal 0.2-1.0 Direct Bilirubin 0.10 mg/dL Normal 0.03-0.18 Indirect Bilirubin 0.2 mg/dL Low 0.3-1.0 Alkaline Phosphatase 169 U/L High 34-104 Alt 8 U/L Normal 7-52 Ast 9 U/L Low 13-39 Order 03/20/2019 [facility] Furosemide <pending> [address] [place] [address] [phone] CBC Auto 03/08/2019 [facility] White Blood 18.8 10^3/uL High 3.5-[address] Count .8 [place] [address] [phone] Red Blood Count 2.71 10^6/uL Low 3.70-4.87 Hemoglobin 6.7 g/dL Low 12.0-16.0 Hematocrit 22 % Low 35-47 Mean Corpuscular Volume 82 fL Normal 80-97 Mean Corpuscular Hemoglobin 25 pg Low 27-31 Mean Corpuscular HGB Conc 30 g/dL Low 31-36 Red Cell Distribution Width 19 % High 10.5-15 Platelet Count 700 10^3/uL High 150-450 Mean Platelet Volume 9.0 fL Normal 7.4-10.4 Abs Neutrophils 16.4 10^3/uL High 1.5-7.7 Abs Lymphocytes 1.2 10^3/uL Normal 1.0-4.8 Abs Monocytes 0.9 10^3/uL High 0-0.8 Abs Eosinophils 0.3 10^3/uL Normal 0-0.6 Abs Basophils 0.1 10^3/uL Normal 0-0.2 Abs Nucleated RBC 0.0 10^3/uL Granulocyte % 87.0 % Lymphocyte % 6.3 % Monocyte % 4.6 % Eosinophil % 1.5 % Basophil % 0.6 % Nucleated Red Blood Cells % 0.0 Laboratory test 03/08/2019 [facility] Lactic Acid 1.4 mmol/L Normal 0.5-2.0 [address] [place] [address] [phone] Retic Count 03/08/2019 [facility] Retic Count 1.9 % High 0.5- 1.5 [address] [place] [address] [phone] Corrected Retic Count 0.9 % Normal 0.5-1.5 Maturation Factor Retic 2.0 Retic Index 0.50 Mean Retic Volume 108.3 Immature Retic Fraction 0.60 RBC Retic Count 2.72 10^6/uL Low 3.70-4.87 Hematocrit for Retic CNT 22 % Low 35-47 Laboratory test 03/08/2019 [facility] LDH 310 U/L High 140- 271 finding [address] [place] [address] [phone] Iron & Iron 03/08/2019 [facility] Total Iron 298 Normal 250- 450 Binding Capacity [address] [facility] Binding g/[place] [address] Capacity [phone] Transferrin 213 mg/dL Normal 203-362 Iron < 17 g/dL Low 50-212 Unsaturated Iron Binding < 283 g/dL % Iron Saturation 6 % Low 15-55 Laboratory test 03/08/2019 [facility] Ferritin 94.3 ng/mL Normal 11-307 finding [address] [place] [address] [phone] Vitamin B12 296 pg/mL Normal 180-914 17 Haptoglobin 414 mg/dL Abnormal 30 - 200 18 Pediatric Blood Culture SEE RESULT BELOW 19 Inr/Protime 03/08/2019 [facility] Inr 0.95 Normal 0.82-1.09 20 [address] [place] [address] [phone] Laboratory test 03/08/2019 [facility] B-Type 1236 High <=100 finding 101 [facility] Natriuretic pg/[place] [address] Peptide BNP [phone] Arterial Blood 03/08/2019 [facility] PH Arterial 7.31 Low 7.35 -7.45 Gas [address] [place] [address] [phone] Pco2 Arterial 40 mmHg Normal 35-45 Po2 Arterial 39 mmHg Critical low 80-100 21 O2 Saturation Arterial 64.9 % Low 94.0-98.0 Base Excess Arterial -5.8 mmol/L Low -2.0-2.0 22 Hco3 Arterial 19.5 mmol/L Normal 19-31 Laboratory test 03/08/2019 [facility] C Reactive 81.98 mg/L High <8.[address] [place] [address] [phone] Troponin-I (TnI) 0.08 ng/mL Critical high <0.04 23 Comp Metabolic Panel 03/08/2019 [facility] Sodium 130 mmol/L Low 135-[address] [place] [address] [phone] Potassium 2.8 mmol/L Low 3.5-5.0 Chloride 100 mmol/L Low 101-111 Co2 Carbon Dioxide 20 mmol/L Low 22-32 Anion Gap 10 mmol/L Normal 2-11 Glucose 384 mg/dL High 70-100 Blood Urea Nitrogen 43 mg/dL High 6-24 Creatinine 2.65 mg/dL High 0.51-0.95 BUN/Creatinine Ratio 16.2 Normal 8-20 Calcium 8.3 mg/dL Low 8.6-10.3 Total Protein 5.7 g/dL Low 6.4-8.9 Albumin 2.5 g/dL Low 3.2-5.2 Globulin 3.2 g/dL Normal 2-4 Albumin/Globulin Ratio 0.8 Low 1-3 Total Bilirubin 0.20 mg/dL Normal 0.2-1.0 Alkaline Phosphatase 144 U/L High 34-104 Alt 8 U/L Normal 7-52 Ast 10 U/L Low 13-39 Egfr Non- 18.6 >60 Egfr 22.5 >60 24 Laboratory test 02/23/2019 [facility] Hemoglobin A1c 9.5 % High 4.0-5.[address] (Glyco HGB) [place] [address] [phone] Lipid Profile 02/23/2019 [facility] Triglycerides 223 26 (Trig/Chol/HDL) 101 mg/[place] [address] [phone] Cholesterol 263 mg/dL 27 HDL Cholesterol 55.1 mg/dL 28 LDL Cholesterol 163 mg/dL 29 Comp Metabolic 02/23/2019 [facility] Sodium 135 mmol/L Normal 135-[address] [place] [address] [phone] Potassium 2.9 mmol/L Low 3.5-5.0 Chloride 105 mmol/L Normal 101-111 Co2 Carbon Dioxide 22 mmol/L Normal 22-32 Anion Gap 8 mmol/L Normal 2-11 Glucose 266 mg/dL High 70-100 Blood Urea Nitrogen 30 mg/dL High 6-24 Creatinine 2.17 mg/dL High 0.51-0.95 BUN/Creatinine Ratio 13.8 Normal 8-20 Calcium 8.3 mg/dL Low 8.6-10.3 Total Protein 5.6 g/dL Low 6.4-8.9 Albumin 2.5 g/dL Low 3.2-5.2 Globulin 3.1 g/dL Normal 2-4 Albumin/Globulin Ratio 0.8 Low 1-3 Total Bilirubin 0.50 mg/dL Normal 0.2-1.0 Alkaline Phosphatase 121 U/L High 34-104 Alt 6 U/L Low 7-52 Ast 10 U/L Low 13-39 Egfr Non- 23.4 >60 Egfr 28.3 >60 30 1 Because ethnic data is not always [...] 5 Kidney failure <15 (or dialysis) 2 Therapeutic target for the treatment of diabetes mellitus patients is <7% HBA1C, and in selective patients <6.0%. Please refer to [place] [employer] diabetic care guidelines for further information. 3 Leukocytosis with absolute neutrophilia indicative of acute inflammatory/reactive process. Microcytic anemia with red cell indices suggestive of iron deficiency identified. Additional studies as clinically warranted. Reviewed by Dr. Medina 4 SEE RESULT BELOW Name: DAVID MESA : [address]: Cole Larios MD Acct: [id number] Unit: [id number] AGE: 59 Location: [place] [address] Re04/24/19 SEX: F Status: ADM IN SPEC: [id number] VIANNEY: 04/24/19-[address]: Joe MOORE REQ: [id number] RECD: 04/24/19 STATUS: MICHAEL VALDIVIA DR: Matilde León MD _ SOURCE: BLOOD,VENO SPDESC: ORDERED: Blood Cult COMMENTS: Patient is On Antibiotics? NO Procedure Result Reported Site Aerobic Culture Bottle Final 04/29/19- 1815 ML No Growth Day 5 Anaerobic Culture Bottle Final 04/29/19- 1815 ML No Growth Day 5 * ML - Main Lab . END OF REPORT DEPARTMENT OF PATHOLOGY, [address] [place] [address] Clint Medina M.D. Director [facility] # [id number] 5 SEE RESULT BELOW Name: DAVID MESA : [address]: Cole Larios MD Acct: [id number] Unit: [id number] AGE: 59 Location: [place] [address] Re04/24/19 SEX: F Status: ADM IN SPEC: [id number] VIANNEY: 04/24/[address]: Joe MOORE REQ: [id number] RECD: 04/24/19 STATUS: MICAHEL VALDIVIA DR: Matilde León MD _ SOURCE: URINE [facility]: ORDERED: Urine Culture Procedure Result Reported Site Urine Culture Final 04/26/19- 0735 ML Organism 1 STREP GROUP B [place] Count >100,000 (Many) CFU/ML Organism 2 CITRO[facility]CTER FREUNDII [place] Count 10-25,000 (Moderate) CFU/ML Susceptibility testing of penicillins and other B-lactams approved by FDA for treatment of Streptococcus pyogenes (Group A Strep) and Streptococcus agalactiae (Group B Strep) is not necessary for clinical purposes and need not be done routinely, since as with vancomycin, resistant strains have not been recognized. (CLSI G007-V22;p.66) Positive isolates will be saved for one week. Please call the Microbiology Laboratory if further susceptibility testing is needed. 2. CITROBACTER FREUNDII M.I.C. RX --------- ------ Cefazolin >=64 R Cefepime <=1 S Ceftriaxone <=1 S Ciprofloxacin <=0.25 S Gentamicin <=1 S Levofloxacin <=0.12 S Meropenem <=0.25 S Nitrofurantoin <=16 S Tetracycline <=1 S Pipercillin/Tazobactam <=4 S Trimethoprim/Sulfamethoxazole <=20 S Amoxicillin/Clavulanic Acid R CONTINUED ON NEXT PAGE DEPARTMENT OF PATHOLOGY, [address] [place] [address] Clint Medina M.D. Director [facility] # [id number] Patient: FALGUNI MESAJOE Khan [id number] (Continued) Specimen: [id number] Collected: 04/24/19 Received: 04/24/19 (Continued) Procedure Result Reported Site Urine Culture Final (continued) 04/26/19734 2. CITROBACTER FREUNDII (continued) M.I.CSonya RX --------- ------ Aztreonam <=1 S Contact the Microbiology Department for any additional antibiotic reporting. * ML - Main Lab . END OF REPORT DEPARTMENT OF PATHOLOGY, [address] [place] [address] Clint Medina M.D. Director [facility] # [id number] 6 Result TnIDx:0.29 Called to [id number] at: 18:00:55 by:[id number] Read back by: [id number] Troponin-I testing on Plasma Separator Tubes (PST) has a known false positive rate of 0.20-0.40%. All positive troponins reflex immediately to secondary confirmatory testing. Using the [employer] DxI 800 Access Immunoassay systems, the 99th percentile upper reference limit was demonstrated to be < 0.03 ng/mL. 7 [facility] Severe Sepsis and Septic Shock Management Bundle Measure requires all lactic acids initially measuring >2.0 mmol/L be repeated. 8 Because ethnic data is not always readily [...] 15-29 5 Kidney failure <15 (or dialysis) 9 Standard intensity warfarin therapeutic range: 2.0-3.0 High intensity warfarin therapeutic range: 2.5-3.5 10 Result TnIDx:0.26 Called to [id number] at: 21:27:14 by:[id number] Read back by: [id number] Troponin-I testing on Plasma Separator Tubes (PST) has a known false positive rate of 0.20-0.40%. All positive troponins reflex immediately to secondary confirmatory testing. Using the [employer] DxI 800 Access Immunoassay systems, the 99th percentile upper reference limit was demonstrated to be < 0.03 ng/mL. 11 [employer]: [id number] 12 Because ethnic data is not always [...] 5 Kidney failure <15 (or dialysis) 13 Critical Result [id number] Called to LAURI at: 11:38:49 by:[id number] Read back by: [email or web address] 14 Because ethnic data is not always readily [...] 15-29 5 Kidney failure <15 (or dialysis) 15 Critical Result [id number] Called to at: 12:58:08 by:[id number] Read back by: [id number] [facility] Severe Sepsis and Septic Shock Management Bundle Measure requires all lactic acids initially measuring >2.0 mmol/L be repeated. 17 Normal Range 180 to 914 Indeterminate Range 145 to 180 Deficient Range <145 18 Test Performed by: [facility] [address] [place] [address] 19 SEE RESULT BELOW Name: DAVID MESA : [address]: Carley Shearer MD Acct: [id number] Unit: [id number] AGE: 58 Location: [place] [address] Re03/09/19 Dis: 03/09/19 SEX: F Status: DIS IN SPEC: [id number] VIANNEY: 03/08/[address] [facility] [address]: Joe MOORE REQ: [id number] RECD: 03/08/19 STATUS: MICHAEL VALDIVIA DR: Matilde Romero MD _ SOURCE: BLOOD,VENO SPDESC: ORDERED: Blood Cult, Pediatric Bottl Procedure Result Reported Site Pediatric Blood Culture Final 03/13/19- 2240 ML No Growth Day 5 * ML - Main Lab . END OF REPORT DEPARTMENT OF PATHOLOGY, [address] [place] [address] Clint Medina M.D. Director [facility] # [id number] 20 Standard intensity warfarin therapeutic range: 2.0-3.0 High intensity warfarin therapeutic range: 2.5-3.5 21 Verbal to [id number] by [id number] at 0256 on 03/09/19. Results read back accurately. 22 Reference ranges based on room air. 23 Result TnIDx:0.08 Called to [id number] at: 23:55:45 by:[id number] Read back by: [id number] Troponin-I testing on Plasma Separator Tubes (PST) has a known false positive rate of 0.20-0.40%. All positive troponins reflex immediately to secondary confirmatory testing. Using the [employer] DxI 800 Access Immunoassay systems, the 99th percentile upper reference limit was demonstrated to be < 0.03 ng/mL. 24 Because ethnic data is not always readily [...] 15-29 5 Kidney failure <15 (or dialysis) 25 Therapeutic target for the treatment of diabetes mellitus patients is <7% HBA1C, and in selective patients <6.0%. Please refer to [place] [employer] diabetic care guidelines for further information. 26 Desirable: <150 Borderline High: 150-199 High: 200-499 Very High: >500 27 Desirable: <200 Borderline High: 200-239 High: >239 28 Low: <40 Desirable: 40-60 High: >60 29 Desirable: <100 Near Optimal: 100-129 Borderline High: 130-159 High: 160-189 Very High: >189 30 Because ethnic data is not always readily [...] 15-29 5 Kidney failure <15 (or dialysis) Procedures Date Code Description Status 04/25/2019 13308 ECHO Transthorasic Realtime 2D W Doppler & Color Flow Completed Hosp 05/15/2018 519179147 Diabetic Retinal Eye Exam Completed 01/10/2018 063910139 Diabetic Retinal Eye Exam Completed 03/26/2016 [id number] Diabetic Retinal Eye Exam Completed 01/06/2016 [id number] Diabetic Retinal Eye Exam Completed 04/07/2013 200480666 Diabetic Retinal Eye Exam Completed 09/16/2011 [id number] Colonoscopy Completed Medical Devices Description No Information Available Encounters Type Date Location Provider Dx Diagnosis Office Visit 06/30/2019 [facility] Matilde Cotton, R60.0 Localized edema 6:00p Medicine - Sameer Godinez Z72.0 Tobacco use I10 Essential (primary) hypertension L97.919 Non-prs chronic ulc unsp prt of r low leg w unsp severity E11.621 Type 2 diabetes mellitus with foot ulcer Office Visit 05/06/2019 9:22a [facility] I50.9 Heart failure, Assoc,mt Ortiz M.D. unspecified Hospitalists E10.9 Type 1 diabetes mellitus without complications N18.9 Chronic kidney disease, unspecified M79.89 Other specified soft tissue disorders S81.801A Unspecified open wound, right lower leg, initial encounter Office Visit 05/05/2019 9:21a [facility] I13.0 Hyp hrt & chr Assoc,mt Ortiz M.D. 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 kdny dis w hrt Hospitalists fail and stg 1-4/unsp chr kdny I50.23 Acute on chronic systolic (congestive) heart failure N18.9 Chronic kidney disease, unspecified E10.622 Type 1 diabetes mellitus with other skin ulcer Office Visit 05/03/2019 9[facility] I13.0 Hyp hrt & chr Assoc,mt Chavez M.D. kdny dis w hrt Hospitalists fail and stg 1-4/unsp chr kdny I50.23 Acute on chronic systolic (congestive) heart failure N18.9 Chronic kidney disease, unspecified E10.622 Type 1 diabetes mellitus with other skin ulcer Office Visit 05/02/2019 9:16a [facility] L97.919 Non-prs Assoc,mt Chavez M.D. chronic ulc Hospitalists unsp prt of r low leg w unsp severity I13.0 Hyp hrt & chr kdny dis w hrt fail and stg 1-4/unsp chr kdny I50.23 Acute on chronic systolic (congestive) heart failure E10.622 Type 1 diabetes mellitus with other skin ulcer Office Visit 05/02/2019 8:30a Wound Care Tressa Lara L97.218 Non- pressure Center AT [facility], [employer] chronic ulcer of [facility] right calf with oth severity L97.419 Non-prs chr ulcer of right heel and midfoot w unsp severt E11.622 Type 2 diabetes mellitus with other skin ulcer I73.9 Peripheral vascular disease, unspecified Z66 Do not resuscitate I50.23 Acute on chronic systolic (congestive) heart failure Office Visit 05/01/2019 9:13a [facility] I13.0 Hyp hrt & chr Assoc,mt Chavez M.D. kdny dis w hrt Hospitalists fail and stg 1-4/unsp chr kdny I50.23 Acute on chronic systolic (congestive) heart failure E10.622 Type 1 diabetes mellitus with other skin ulcer Z89.512 Acquired absence of left leg below knee L97.919 Non-prs chronic ulc unsp prt of r low leg w unsp severity Office Visit 04/30/2019 9:12a [facility] I13.0 Hyp hrt & chr Assoc,mt Larios M.D. kdny dis w hrt Hospitalists fail and stg 1-4/unsp chr kdny I50.23 Acute on chronic systolic (congestive) heart failure L97.919 Non-prs chronic ulc unsp prt of r low leg w unsp severity N18.9 Chronic kidney disease, unspecified Office Visit 04/29/2019 9:12a [facility] I13.0 Hyp hrt & chr Assoc,mt Larios M.D. kdny dis w hrt Hospitalists fail and stg 1-4/unsp chr kdny I50.23 Acute on chronic systolic (congestive) heart failure L97.919 Non-prs chronic ul unsp prt of r low leg w unsp severity N18.9 Chronic kidney disease, unspecified Office Visit 04/28/2019 [facility] L97.919 Non-prs 9:11a Assocmt M.D. chronic [facility] Hospitalists unsp prt of r low leg w unsp severity B95.8 Unsp staphylococcus as the cause of diseases classd elswhr I13.0 Hyp hrt & chr kdny dis w hrt fail and stg 1-4/unsp chr kdny I50.23 Acute on chronic systolic (congestive) heart failure N18.9 Chronic kidney disease, unspecified E10.51 Type 1 diabetes w diabetic peripheral angiopath w/o gangrene I73.9 Peripheral vascular disease, unspecified Office Visit 04/28/2019 7:00a [facility] Easton Goodwin L97.218 Non-pressure [facility] chronic ulcer of [employer] right calf with oth severity L97.419 Non-prs chr ulcer of right heel and midfoot w unsp severt Office Visit 04/27/2019 9:10a [facility] Arleen Pacheco, L97.919 Non- prs Assmt patel M.D. 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 chronic [facility] Hospitalists unsp prt of r low leg w unsp severity E10.622 Type 1 diabetes mellitus with other skin ulcer I13.0 Hyp hrt & chr kdny dis w hrt fail and stg 1-4/unsp chr kdny I87.2 Venous insufficiency (chronic) (peripheral) Office Visit 04/25/2019 8:00a Wound Care Tressa Lara E11.622 Type 2 diabetes Center AT [facility] [place], [employer] mellitus with other skin ulcer L97.218 Non-pressure chronic ulcer of right calf with oth severity L97.419 Non-prs chr ulcer of right heel and midfoot w unsp severt I73.9 Peripheral vascular disease, unspecified Office [facility] 04[facility]/2019 [facility] I[facility].0 Hyp hrt & chr Assoc,mt Larios M.D. kdny dis w hrt Hospitalists fail and stg 1-4/unsp chr kdny I50.23 Acute on chronic systolic (congestive) heart failure L97.918 Non-prs chronic ulc unsp prt of r low leg with oth severity Office Visit 04/25/2019 9:09a Palliative Care Michelle Randall MD R53.1 [facility] N18.4 Chronic kidney disease, stage 4 (severe) E10.622 Type 1 diabetes mellitus with other skin ulcer Office Visit 04/24/2019 8:58a [facility] Riccardo I13.0 Hyp hrt & chr Assoc,OSCAR Davies kdny dis w hrt Hospitalists fail and stg 1-4/unsp chr kdny E10.65 Type 1 diabetes mellitus with hyperglycemia M79.661 Pain in right lower leg N18.9 Chronic kidney disease, unspecified E10.42 Type 1 diabetes mellitus with diabetic polyneuropathy Z79.4 custodial (current) use of insulin Office Visit 04/19/2019 10:00a [facility] David Goodwin L97.218 Non-pressure [facility] Yuan Zavala M.D. chronic ulcer of right calf with oth severity Office Visit 04/06/2019 9:00a Wound Care Cedrick Holman L97.218 Non-pressure Center AT [facility] Herbert Mcgovern chronic ulcer of right calf with oth severity E11.622 Type 2 diabetes mellitus with other skin ulcer L97.419 Non-prs chr ulcer of right heel and midfoot w unsp severt E11.621 Type 2 diabetes mellitus with foot ulcer R09.89 Oth symptoms and signs involving the circ and resp systems Office Visit 03/30/2019 12:45p Wound Care Cedrick Holman E11.621 Type 2 diabetes Center AT [facility] Herbert Mcgovern mellitus with foot ulcer E11.622 Type 2 diabetes mellitus with other skin ulcer L89.610 Pressure ulcer of right heel, unstageable E11.22 Type 2 diabetes mellitus w diabetic chronic kidney disease Office Visit 03/24/2019 10:34p [facility] Internal Matilde I50.9 Heart failure, Manas León M.D. unspecified Ccmob N18.4 Chronic kidney disease, stage 4 (severe) M21.961 Unspecified acquired deformity of right lower leg Z72.0 Tobacco use R33.9 Retention of urine, unspecified L97.829 Non-pressure chronic ulcer oth prt l low leg w unsp severity F41.9 Anxiety disorder, unspecified E11.22 Type 2 diabetes mellitus w diabetic chronic kidney disease E11.621 Type 2 diabetes mellitus with foot ulcer Office Visit 03/09/2019 [facility] Bernard Boykin N17.9 Acute kidney 9:50a Assocmt M.D.,FACP failure, Hospitalists unspecified I50.23 Acute on chronic systolic (congestive) heart failure Office Visit 02/23/2019 10:00a [facility] Coch, N18.3 Chronic kidney Endocrinology of [facility] MD disease, stage 3 (moderate) E11.22 Type 2 diabetes mellitus w diabetic chronic kidney disease E87.6 Hypokalemia I50.9 Heart failure, unspecified Office Visit 02/10/2019 5:30p [facility] Internal Matilde I50.9 Heart failureManas M.D. unspecified Ccmob E11.22 Type 2 diabetes mellitus w diabetic chronic kidney disease N18.4 Chronic kidney disease, stage 4 (severe) M21.961 Unspecified acquired deformity of right lower leg R33.9 Retention of urine, unspecified Z89.512 Acquired absence of left leg below knee Z87.891 Personal history of nicotine dependence Office Visit 01/13/2019 10:04a [facility] Internal Matilde I50.9 Heart failureManas M.D. unspecified Ccmob E11.22 Type 2 diabetes mellitus w diabetic chronic kidney disease M89.8x7 Other specified disorders of bone, ankle and foot R33.9 Retention of urine, unspecified N18.4 Chronic kidney disease, stage 4 (severe) Assessments Date Code Description Provider 07/13/2019 L97.919 Non-pressure chronic ulcer of Tressa Arnold, [employer] unspecified part of right lower leg with unspecified severity 07/13/2019 R60.0 Localized edema Tressa Arnold, [employer] 07/13/2019 E10.22 Type 1 diabetes mellitus with Tressa Arnold, [employer] diabetic chronic kidney disease 07/13/2019 I73.9 Peripheral vascular disease, Tressa Arnold, [employer] unspecified 07/07/2019 L97.919 Non-pressure chronic ulcer of rTessa Arnold, [employer] unspecified part of right lower leg with unspecified severity 07/07/2019 R60.0 Localized edema Tressa Arnold, [employer] 07/07/2019 E10.22 Type 1 diabetes mellitus with Tressa Arnold, [employer] diabetic chronic kidney disease 07/07/2019 I73.9 Peripheral vascular disease, Tressa Arnold, [employer] unspecified 06/30/2019 R60.0 Localized edema Matilde León M.D. 06/30/2019 Z72.0 Tobacco use Matilde León M.D. 06/30/2019 I10 Essential (primary) hypertension Matilde León M.D. 06/30/2019 L97.919 Non-pressure chronic ulcer of Matilde León M.D. unspecified part of right lower leg with unspecified severity 06/30/2019 E11.621 Type 2 diabetes mellitus with foot Matilde León M.D. ulcer 06/23/2019 I50.9 Heart failure, unspecified Matilde León M.D. 06/23/2019 N18.9 Chronic kidney disease, unspecified Matilde León M.D. 06/23/2019 E10.22 Type 1 diabetes mellitus with Matilde León M.D. diabetic chronic kidney disease 06/23/2019 R33.9 Retention of urine, shawn León M.D. 06/23/2019 L97.919 Non-pressure chronic ulcer of Matilde León M.D. unspecified part of right lower leg with unspecified severity 06/23/2019 Z89.9 Acquired absence of limb, Matilde León M.D. unspecified 06/23/2019 Z72.0 Tobacco use Matilde León M.D. 06/23/2019 Z95.828 Presence of other vascular implants Matilde León M.D. and grafts 05/06/2019 I50.9 Heart failure, unspecified Jose Luis Ortiz M.D. 05/06/2019 E10.9 Type 1 diabetes mellitus without Jose Luis Ortiz M.D. complications 05/06/2019 N18.9 Chronic kidney disease, unspecified Jose Luis Ortiz M.D. 05/06/2019 M79.89 Other specified soft tissue Jose Luis Ortiz M.D. disorders 05/06/2019 S81.801A Unspecified open wound, right lower Jose Luis Ortiz M.D. leg, initial encounter 05/05/2019 I13.0 Hypertensive heart and chronic Jose Luis Ortiz M.D. kidney disease with heart failure and stage 1 through stage 4 chronic kidney disease, or unspecified chronic kidney disease 05/05/2019 I50.23 Acute on chronic systolic Jose Luis Ortiz M.D. (congestive) heart failure 05/05/2019 E10.22 Type 1 diabetes mellitus with Jose Luis Ortiz M.D. diabetic chronic kidney disease 05/05/2019 N18.4 Chronic kidney disease, stage 4 Jose Luis Ortiz M.D. (severe) 05/05/2019 M79.89 Other specified soft tissue Jose Luis Ortiz M.D. disorders 05/04/2019 I13.0 Hypertensive heart and chronic Carley Chavez M.D. kidney disease with heart failure and stage 1 through stage 4 chronic kidney disease, or unspecified chronic kidney disease 05/04/2019 I50.23 Acute on chronic systolic Carley Chavez M.D. (congestive) heart failure 05/04/2019 N18.9 Chronic kidney disease, unspecified Carley Chavez M.D. 05/04/2019 E10.622 Type 1 diabetes mellitus with other Carley Chavez M.D. skin ulcer 05/03/2019 I13.0 Hypertensive heart and chronic Carley Chavez M.D. kidney disease with heart failure and stage 1 through stage 4 chronic kidney disease, or unspecified chronic kidney disease 05/03/2019 I50.23 Acute on chronic systolic Carley Chavez M.D. (congestive) heart failure 05/03/2019 N18.9 Chronic kidney disease, unspecified Carley Chavez M.D. 05/03/2019 E10.622 Type 1 diabetes mellitus with other Carley Chavez M.D. skin ulcer 05/02/2019 L97.919 Non-pressure chronic ulcer of Carley Chavez M.D. unspecified part of right lower leg with unspecified severity 05/02/2019 L97.218 Non-pressure chronic ulcer of right Tressa Arnold NP calf with other specifie 05/02/2019 I13.0 Hypertensive heart and chronic Carley Chavez M.D. kidney disease with heart failure and stage 1 through stage 4 chronic kidney disease, or unspecified chronic kidney disease 05/02/2019 I50.23 Acute on chronic systolic Carley Chavez M.D. (congestive) heart failure 05/02/2019 L97.419 Non-pressure chronic ulcer of right Tressa Arnold NP heel and midfoot with un 05/02/2019 E10.622 Type 1 diabetes mellitus with other Carley Chavez M.D. skin ulcer 05/02/2019 E11.622 Type 2 diabetes mellitus with other Tressa Arnold NP skin ulcer 05/02/2019 I73.9 Peripheral vascular disease, Tressa Arnold NP unspecified 05/02/2019 Z66 Do not resuscitate Tressa Arnold NP 05/02/2019 I50.23 Acute on chronic systolic Tressa Arnold NP (congestive) heart failure 05/01/2019 I13.0 Hypertensive heart and chronic Carley Chavez M.D. kidney disease with heart failure and stage 1 through stage 4 chronic kidney disease, or unspecified chronic kidney disease 05/01/2019 I50.23 Acute on chronic systolic Carley Chavez M.D. (congestive) heart failure 05/01/2019 E10.622 Type 1 diabetes mellitus with other Carley Chavez M.D. skin ulcer 05/01/2019 Z89.512 Acquired absence of left leg below Carley Chavez M.D. knee 05/01/2019 L97.919 Non-pressure chronic ulcer of Carley Chavez M.D. unspecified part of right lower leg with unspecified severity 04/30/2019 I13.0 Hypertensive heart and chronic Cole Larios M.D. kidney disease with heart failure and stage 1 through stage 4 chronic kidney disease, or unspecified chronic kidney disease 04/30/2019 I50.23 Acute on chronic systolic Cole Larios M.D. (congestive) heart failure 04/30/2019 L97.919 Non-pressure chronic ulcer of Cole Larios M.D. unspecified part of right lower leg with unspecified severity 04/30/2019 N18.9 Chronic kidney disease, unspecified Cole Larios M.D. 04/29/2019 I13.0 Hypertensive heart and chronic Cole Larios M.D. kidney disease with heart failure and stage 1 through stage 4 chronic kidney disease, or unspecified chronic kidney disease 04/29/2019 I50.23 Acute on chronic systolic Cole Larios M.D. (congestive) heart failure 04/29/2019 L97.919 Non-pressure chronic ulcer of Cole Larios M.D. unspecified part of right lower leg with unspecified severity 04/29/2019 N18.9 Chronic kidney disease, unspecified Cole Larios M.D. 04/28/2019 L97.919 Non-pressure chronic ulcer of Cole Larios M.D. unspecified part of right lower leg with unspecified severity 04/28/2019 L97.218 Non-pressure chronic ulcer of right Easton Springer MD calf with other specifie 04/28/2019 B95.8 Unspecified staphylococcus as the Cole Larios M.D. cause of diseases classified elsewhere 04/28/2019 L97.419 Non-prs chr ulcer of right heel and Easton Springer MD midfoot w unsp severt 04/28/2019 I13.0 Hypertensive heart and chronic Cole Larios M.D. kidney disease with heart failure and stage 1 through stage 4 chronic kidney disease, or unspecified chronic kidney disease 04/28/2019 I50.23 Acute on chronic systolic Cole Larios M.D. (congestive) heart failure 04/28/2019 N18.9 Chronic kidney disease, unspecified Cole Larios M.D. 04/28/2019 E10.51 Type 1 diabetes mellitus with Cole Larios M.D. diabetic peripheral angiopathy without gangrene 04/28/2019 I73.9 Peripheral vascular disease, Cole Larios M.D. unspecified 04/27/2019 L97.919 Non-pressure chronic ulcer of Arleen Pacheco M.D. unspecified part of right lower leg with unspecified severity 04/27/2019 I13.0 Hypertensive heart and chronic Arleen Pacheco M.D. kidney disease with heart failure and stage 1 through stage 4 chronic kidney disease, or unspecified chronic kidney disease 04/27/2019 I50.23 Acute on chronic systolic Arleen Pacheco M.D. (congestive) heart failure 04/27/2019 E10.22 Type 1 diabetes mellitus with Arleen Pacheco M.D. diabetic chronic kidney disease 04/27/2019 E10.622 Type 1 diabetes mellitus with other Arleen Pacheco M.D. skin ulcer 04/27/2019 I73.9 Peripheral vascular disease, Arleen Pacheco M.D. unspecified 04/27/2019 J44.9 Chronic obstructive pulmonary Arleen Pacheco M.D. disease, unspecified 04/26/2019 L97.919 Non-pressure chronic ulcer of Cole Larios M.D. unspecified part of right lower leg with unspecified severity 04/26/2019 E10.622 Type 1 diabetes mellitus with other Cole Larios M.D. skin ulcer 04/26/2019 I13.0 Hypertensive heart and chronic Cole Larios M.D. kidney disease with heart failure and stage 1 through stage 4 chronic kidney disease, or unspecified chronic kidney disease 04/26/2019 I87.2 Venous insufficiency (chronic) Cole Larios M.D. (peripheral) 04/25/2019 I50.9 Heart failure, unspecified Cande Amado M.D. 04/25/2019 R53.1 Weakness Michelle Randall MD 04/25/2019 I13.0 Hypertensive heart and chronic Cole Larios M.D. kidney disease with heart failure and stage 1 through stage 4 chronic kidney disease, or unspecified chronic kidney disease 04/25/2019 N18.4 Chronic kidney disease, stage 4 Michelle Randall MD (severe) 04/25/2019 I50.23 Acute on chronic systolic Cole Larios M.D. (congestive) heart failure 04/25/2019 E10.622 Type 1 diabetes mellitus with other Michelle Randall MD skin ulcer 04/25/2019 E11.622 Type 2 diabetes mellitus with other Tressa Arnold NP skin ulcer 04/25/2019 L97.918 Non-pressure chronic ulcer of Cole Larios M.D. unspecified part of right lower leg with other specified severity 04/25/2019 L97.218 Non-pressure chronic ulcer of right Tressa Arnold NP calf with other specifie 04/25/2019 L97.419 Non-prs chr ulcer of right heel and Tressa Arnold NP midfoot w unsp severt 04/25/2019 I73.9 Peripheral vascular disease, Tressa Arnold NP unspecified 04/24/2019 I13.0 Hypertensive heart and chronic OSCAR Brown kidney disease with heart failure and stage 1 through stage 4 chronic kidney disease, or unspecified chronic kidney disease 04/24/2019 E10.65 Type 1 diabetes mellitus with OSCAR Brown hyperglycemia 04/24/2019 M79.661 Pain in right lower leg OSCAR Brown 04/24/2019 N18.9 Chronic kidney disease, unspecified OSCAR Brown 04/24/2019 E10.42 Type 1 diabetes mellitus with OSCAR Brown diabetic polyneuropathy 04/24/2019 Z79.4 custodial (current) use of insulin OSCAR Brown 04/19/2019 L97.218 Non-pressure chronic ulcer of right Graham Zavala M.D. calf with other specifie 04/07/2019 I50.9 Heart failure, unspecified Matilde León M.D. 04/07/2019 N18.4 Chronic kidney disease, stage 4 Matilde León M.D. (severe) 04/07/2019 E11.621 Type 2 diabetes mellitus with foot Matilde León M.D. ulcer 04/07/2019 R33.9 Retention of urine, unspecified Matilde León M.D. 04/07/2019 D64.9 Anemia, unspecified Matilde León M.D. 04/07/2019 G25.81 Restless legs syndrome Matilde León M.D. 04/07/2019 I73.9 Peripheral vascular disease, Matilde León M.D. unspecified 04/06/2019 L97.218 Non-pressure chronic ulcer of right Cedrick Mcgovern M.D. calf with oth severity 04/06/2019 E11.622 Type 2 diabetes mellitus with other Cedrick Mcgovern M.D. skin ulcer 04/06/2019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
--- OUTSIDE RECORDS SUMMARY | 2019-07-22 09:54 | XMS REPORT | Continuity of Care Document ---
:1960 External Reference #:[id number] Author Name Matilde León M.D. Address [address] [facility], [address] [place] [address] Care Team Providers Name Role Phone Dinesh Adams MD - Orthopaedic Care Team Information Handbag Designer Surgery Tom Hess MD - Orthopaedic Care Team Information Handbag Designer Surgery Janusz Cutler M.D. - Hematology & Care Team Information Handbag Designer Oncology Guero Rod MD - Endocrinology, Care Team Information Handbag Designer Diabetes & Metabolism Rafael Hull MD - Nephrology Care Team Information Handbag Designer [phone] [facility] - Clinic/Center Care Team Information Handbag Designer [phone] Problems Active Problems Provider Date Type 2 diabetes mellitus Bernard Bonilla M.D.,FACP Onset: 09/18/2010 Aortocoronary Bypass Postsurgical Bernard Bonilla M.D.,FACP Onset: 2009 Status Benign essential hypertension Moises Valdes M.D. Onset: 05/14/2011 Mixed hyperlipidemia Moises Valdes M.D. Onset: 05/14/2011 Carotid artery occlusion Moises Valdes M.D. Onset: 06/10/2011 Atherosclerosis of arteries of the Amy Parcorbin, N.P. Onset: 04/04/2012 extremities Spinal stenosis of lumbar region Cedrick Toscano M.D. Onset: 11/16/2013 Diabetic polyneuropathy Amira Lyon M.D. Onset: 05/07/2015 Restless legs Amira Lyon M.D. Onset: 05/07/2015 Atherosclerotic heart disease of Moises Valdes M.D. Onset: 08/27/2015 [place] coronary artery without angina pectoris Gastroparesis syndrome [...] 1 cig per day Smoking Status Reviewed: 07/14/19 Light tobacco smoker (10 or fewer cigarettes/day) [...] Potassium Chloride 1 tablet bid 60tabs E13.8 [facility] 07/09/2019 Alana ER Herbert León 10Meq Tablets ER Coreg 1 by mouth twice 60tabs [facility] 06/26/2019 6.25mg Tablets a day Herbert León Gait/Transfer Belt [facility]2019 [facility] when walking Herbert León Opticell 6" x 6" square. [facility] L97.919 Matilde 06/23/2019 (Chitosan-Based Apply to wound q Herbert León Gelling Fiber) 3 days Plurogel Apply to dressing 50gm L97.919 [facility] 06/23/2019 every 3 days Herbert León Dulera 2 puffs once 8.800gm [facility] 06/23/2019 100-5mcg/Act daily Herbert León Aerosol Sertraline HCL 1 by mouth every 30tabs [facility] 06/23/2019 50mg day Herbert León Tablets Spiriva Handihaler inhale the 30caps [facility] 06/23/2019 18mcg contents of one Herbert León Capsules capsule in the handihaler once daily Pramipexole 1 PO QHS 30tabs [facility] 06/23/2019 Dihydrochloride Herbert León 0.5mg Tablets Torsemide 1 by mouth twice 60tabs [facility] 06/23/2019 100mg Tablets a day Herbert León Wheelchair Cushion for daily use in [facility] Z89.9 [facility] 06/23/2019 [facility] wheelchair Herbert León Lantus Solostar inject 20 units 30ml Matilde 04/20/2019 once daily in am Herbert León 100Unit/ML Solution (increased to 35 Pen-Inject units at hs per pt) Humalog Kwikpen 10 units s/c 30ml [facility] 04/14/2019 before meals, Herbert León 100Unit/ML Solution increase to 15 as Pen-Inject needed to maintain blood sugar under 300 Pen [place] 1/2" for use 3 times a 100units E11.65 [facility] 04/14/2019 29G X day with insulin Herbert León 12mm Misc pen Z79.4 Vitamin B-12 1 by mouth every day 30tabs Matildemarine León, 03/14/2019 M.D. 1000mcg Tablets Insulin substitution okay; use 150units E13.8 Oscar Hdez MD 02/23/2019 Syringe/0.3ML/30G 4 times/day for X 02/23" insulin injection 30G X 02/23" 0.3 ML Misc Morphine Sulfate 10 to 40 mg. every 2 30ml G47.00 Matildemarine León, 2018 (Concentrate) hours as needed for M.D. pain or sob 20mg/ml Solution I50.23 Alprazolam 1 tablets by mouth 30tabs Matilde Mau, 10/31/2018 0.25mg three times daily M.D. Tablets as needed for anxiety Freestyle Lite Test 4x a day and as 100units E11.69 Estela Lackey N.PSonya Strips needed dx e11.69 Strips Nitrostat one sl q 5min up to 25tabs Matilde Cotton, 11/02/2011 0.4mg 3 doses as needed M.D. Tablets Sub chest pain Gabapentin 2 PO QHS 60tabs Matilde Mau, 08/27/2010 600mg M.D. Tablets Aspir-81 1 by mouth every Unknown 81mg Tablets day DR Tylenol 8 Hour 1 tab every 4 hours Unknown 650mg as needed Tablets ER Ferrous Sulfate Take one by mouth 30tabs Matilde Mau, 325mg with a glass of M.DSonya Tablets orange juice twice a week. If tolerated, increase gradually to every day History Medications Metolazone 1.5 tabs PO qd 30tabs Matilde 06/23/2019 - 10mg Tablets Herbert León 07/14/2019 Atorvastatin Calcium 1 by mouth 30tabs [facility] 06/23/2019 - 20mg every day Herbert León 07/14/2019 Tablets Chantix Starting Month take as 42tabs [facility] 06/23/2019 - Abdi directed Herbert León 07/06/2019 0.5mg X 11 & 1 mg X 42 Tablets Pramipexole 1 tab by mouth 30tabs [facility] 04/08/2019 - Dihydrochloride at bedtime Herbert León 06/23/2019 0.125mg Tablets Furosemide 80 mg IV 30ml [facility] 03/17/2019 - 10mg/ml infusion via Herbert León 06/23/2019 Solution port twice weekly Clindamycin HCL 1 by mouth four 40caps L03.115 [facility] 02/28/2019 - 300mg times a day for [...] units Potassium Chloride 1 tablet daily 30tabs E13.Maximino Hdez MD 02/23/2019 - Alana ER 06/23/2019 10Meq Tablets ER Senna-S [facility] 02/10/2019 - 8.6-50mg Tablets Herbert León 06/23/2019 Nicotine Polacrilex Chew one piece 150units Z87.891 [facility] 02/10/2019 - 2mg every 2-4 hours Herbert León 06/23/2019 Gum Senna-Docusate Sodium [facility] 02/10/2019 - Herbert León 06/23/2019 8.6-50mg Tablets Monurol Mix One Packet 3units [facility] 01/17/2019 - Granules Abdi With 3 Ounces Herbert León 02/10/2019 Of Cool [place] Every 3 Days Immunizations CPT Code Status Date Vaccine Lot # [id number] Given 11/05/2017 Influenza Virus Vaccine, Quadrivalent, Split, [id number] Preservative Free [id number] Given 10/20/2016 Influ Virus Vaccine, Quadrivalent, Split Virus, [place] [id number] [address] Given 09/12/2015 Influenza Virus Vaccine, Quadrivalent, Split, [id number] Preservative Free 47132 Given 06/15/2013 Pneumonia Vaccine [id number] Given 10/11/2012 Pneumonia Vaccine [id number] 04575 Given 10/11/2010 Tetanus And Diptheria (Td) For Adult Use Preservative Free 59394 Given 07/20/2010 Influenza Virus 3Yrs & Over Vital Signs Date Vital Result Comment 07/14/2019 4:27pm Height 62 inches 5'2" Weight 149.00 lb Heart Rate 94 /min BP Systolic 140 mmHg BP Diastolic 85 mmHg O2 % BldC Oximetry 99 % BMI (Body Mass Index) 27.2 kg/m2 07/13/2019 2:15pm Heart Rate 91 /min BP Systolic Sitting 148 mmHg BP Diastolic Sitting 98 mmHg Respiratory Rate 14 /min Body Temperature 98.1 F O2 % BldC Oximetry 92 % Results Test Date Facility Test Result H/L Range Note Comp Metabolic Panel 07/07/2019 [facility] Sodium 129 mmol/L Low 135-[address] [place] [address] [phone] Potassium 2.8 mmol/L Low 3.5-5.0 Chloride 90 [...] Egfr 22.6 >60 1 Laboratory test 07/07/2019 [facility] Hemoglobin A1c 11.2 % High 4.0-5.[address] (Glyco HGB) [place] [address] [phone] CBC Auto Diff 07/07/2019 [facility] White Blood 10.9 High 3.5- 10.8 Count 10^3/[place] [address] [phone] Red Blood Count 3.07 10^6/uL Low 3.70-4.87 [...] Red Blood Cells % 0.3 Laboratory 07/07/2019 [facility] TSH (Thyroid 1.63 Normal 0.34 -5.[address] Stim Horm) mcIU/[place] [address] [phone] Cell 07/07/2019 [facility] Macrocytosis 2+ [place] [address] [phone] Microcytosis 2+ Hypochromasia 1+ Polychromasia 1+ Anisocytosis 3+ Laboratory test 07/07/2019 [facility] Pathologist (SEE NOTE) [address] [place] [address] [phone] Order 06/20/2019 [facility] Hospice <pending> [address] [place] [address] [phone] Laboratory test 04/24/2019 [facility] B-Type > 1300 High <=[address] Natriuretic pg/mL 0 [place] [address] Peptide BNP [phone] Laboratory test 04/24/2019 [facility] Blood Culture SEE RESULT [address] [place] [address] [phone] Urine Culture And 04/24/2019 [facility] Urine Culture SEE RESULT [address] [place] [address] [phone] Urinalysis Profile 04/24/2019 [facility] Urine Color Yellow [address] [place] [address] [phone] Urine Appearance Clear Urine Specific Aguilar 1.012 Normal 1.010-1.030 Urine pH 6.0 Normal [...] Bacteria 1+ Abnormal Absent Laboratory test 04/24/2019 [facility] C Reactive 50.47 mg/L High <8.[address] [place] [address] [phone] Troponin-I (TnI) 0.29 ng/mL Critical high <0.04 6 Lactic Acid 1.2 mmol/L Normal 0.5-2.0 7 Comp Metabolic Panel 04/24/2019 [facility] Sodium 130 mmol/L Low 135-[address] [place] [address] [phone] Potassium 4.7 mmol/L Normal 3.5-5.0 Chloride 95 [...] >60 Egfr 27.5 >60 8 Inr/Protime 04/24/2019 [facility] Inr 1.12 High 0.82-1.[address] [place] [address] [phone] CBC Auto Diff 04/24/2019 [facility] White Blood 14.2 High 3.5- 10.[address] Count 10^3/[place] [address] [phone] Red Blood Count 4.28 10^6/uL Normal 3.70-4.87 [...] Red Blood Cells % 0.3 Laboratory 04/24/2019 [facility] Troponin-I 0.26 Critical < 0.04 10 test finding [address] (TnI) ng/[place] [address] [phone] Laboratory 04/24/2019 [facility] Point of Care > 444 Critical 70-100 11 test finding [address] Glucose mg/[place] [address] [phone] Laboratory 04/14/2019 [facility] Ferritin 40.1 Normal 11-307 test finding [address] ng/[place] [address] [phone] Iron & Iron 04/14/2019 [facility] Total Iron 361 Normal 250- [address] Binding g/[place] [address] Capacity [phone] Transferrin 258 mg/dL Normal 203-362 Iron < 17 g/dL Low 50-212 Unsaturated Iron Binding < 346 g/dL % Iron Saturation 5 % Low 15-55 CBC Auto 04/14/2019 [facility] White Blood 13.7 10^3/uL High 3.5-10.[address] [place] [address] [phone] Red Blood Count 3.71 10^6/uL Normal 3.70-4.87 [...] Blood Cells % 0.1 Laboratory test 04/14/2019 [facility] B-Type > 1300 High <= [address] Natriuretic pg/[place] [address] Peptide BNP [phone] Comp Metabolic 04/14/2019 [facility] Sodium 126 Low 135-[address] mmol/[place] [address] [phone] Potassium 4.4 mmol/L Normal 3.5-5.0 Chloride 93 [...] Critical high 70-100 13 Basic Metabolic 03/30/2019 [facility] Sodium 126 mmol/L Low 135-[address] [place] [address] [phone] Potassium 3.7 mmol/L Normal 3.5-5.0 Chloride 93 mmol/L Low 101-111 Co2 Carbon Dioxide 26 mmol/L Normal 22-32 Anion Gap 7 mmol/L Normal 2-11 Blood Urea Nitrogen 36 mg/dL High 6-24 Creatinine 2.39 mg/dL High 0.51-0.95 BUN/Creatinine Ratio 15.1 Normal 8-20 Calcium 8.3 mg/dL Low 8.6-10.3 Egfr Non- 20.9 >60 Egfr 25.3 >60 14 Glucose 566 mg/dL Critical high 70-100 15 Liver Function 03/30/2019 [facility] Total Protein 5.3 g/dL Low 6.4-8.[address] [place] [address] [phone] Albumin 2.4 g/dL Low 3.2-5.2 Globulin 2.9 g/dL Normal 2-4 Albumin/Globulin Ratio 0.8 Low 1-3 Total Bilirubin 0.30 mg/dL Normal 0.2-1.0 Direct Bilirubin 0.10 mg/dL Normal 0.03-0.18 Indirect Bilirubin 0.2 mg/dL Low 0.3-1.0 Alkaline Phosphatase 169 U/L High 34-104 Alt 8 U/L Normal 7-52 Ast 9 U/L Low 13-39 Order 03/20/2019 [facility] Furosemide <pending> [address] [place], [place] [id number] [phone] CBC Auto 03/08/2019 [facility] White Blood 18.8 10^3/uL High 3.5-[address] Count .8 [place] [address] [phone] Red Blood Count 2.71 10^6/uL Low 3.70-4.87 [...] Blood Cells % 0.0 Laboratory test 03/08/2019 [facility] Lactic Acid 1.4 mmol/L Normal 0.5-2.0 [address] [place] [address] [phone] Retic Count 03/08/2019 [facility] Retic Count 1.9 % High 0.5- 1.[address] [place] [address] [phone] Corrected Retic Count 0.9 % Normal 0.5-1.5 Maturation Factor Retic 2.0 Retic Index 0.50 Mean Retic Volume 108.3 Immature Retic Fraction 0.60 RBC Retic Count 2.72 10^6/uL Low 3.70-4.87 Hematocrit for Retic CNT 22 % Low 35-47 Laboratory test 03/08/2019 [facility] LDH 310 U/L High 140- 271 finding [address] [place], [place] [address] [phone] Iron & Iron 03/08/2019 [facility] Total Iron 298 Normal 250- 450 Binding Capacity 101 Binding g/[place] [address] Capacity [phone] Transferrin 213 mg/dL Normal 203-362 Iron < 17 g/dL Low 50-212 Unsaturated Iron Binding < 283 g/dL % Iron Saturation 6 % Low 15-55 Laboratory test 03/08/2019 [facility] Ferritin 94.3 ng/mL Normal 11-307 finding [address] [place] [address] [phone] Vitamin B12 296 pg/mL Normal 180-914 17 Haptoglobin 414 mg/dL Abnormal 30 - 200 18 Pediatric Blood Culture SEE RESULT BELOW 19 Inr/Protime 03/08/2019 [facility] Inr 0.95 Normal 0.82-1.09 20 [address] [place] [address] [phone] Laboratory test 03/08/2019 [facility] B-Type 1236 High <=100 finding 101 [facility] Natriuretic pg/[place] [address] Peptide BNP [phone] Arterial Blood 03/08/2019 [facility] PH Arterial 7.31 Low 7.35 -7.45 Gas [address] [place] [address] [phone] Pco2 Arterial 40 mmHg Normal 35-45 Po2 Arterial 39 mmHg Critical low 80-100 21 O2 Saturation Arterial 64.9 % Low 94.0-98.0 Base Excess Arterial -5.8 mmol/L Low -2.0-2.0 22 Hco3 Arterial 19.5 mmol/L Normal 19-31 Laboratory test 03/08/2019 [facility] C Reactive 81.98 mg/L High <8.01 finding 101 [facility] [place] [address] [phone] Troponin-I (TnI) 0.08 ng/mL Critical high <0.04 23 Comp Metabolic Panel 03/08/2019 [facility] Sodium 130 mmol/L Low 135-[address] [place] [address] [phone] Potassium 2.8 mmol/L Low 3.5-5.0 Chloride 100 [...] Egfr 22.5 >60 24 Laboratory test 02/23/2019 [facility] Hemoglobin A1c 9.5 % High 4.0-5.[address] (Glyco HGB) [place] [address] [phone] Lipid Profile 02/23/2019 [facility] Triglycerides 223 26 (Trig/Chol/HDL) [address] mg/[place] [address] [phone] Cholesterol 263 mg/dL 27 HDL Cholesterol 55.1 mg/dL 28 LDL Cholesterol 163 mg/dL 29 Comp Metabolic 02/23/2019 [facility] Sodium 135 mmol/L Normal 135-[address] [place] [address] [phone] Potassium 2.9 mmol/L Low 3.5-5.0 Chloride 105 [...] in selective patients <6.0%. Please refer to [employer] diabetic care guidelines for further information. 3 Leukocytosis with absolute neutrophilia indicative of acute inflammatory/reactive process. Microcytic anemia with red cell indices suggestive of iron deficiency identified. Additional studies as clinically warranted. Reviewed by Dr. Medina 4 SEE RESULT BELOW Name: DAVID MESA : [address]: Cole Larios MD Acct: [id number] Unit: [id number] AGE: 59 Location: [place] [address] Re04/24/19 SEX: F Status: ADM IN SPEC: [id number] VIANNEY: 04/24/[address] [facility] [address]: Joe MOORE REQ: [id number] RECD: 04/24/19 STATUS: MICHAEL VALDIVIA DR: Matilde León MD _ SOURCE: BLOOD,VENO SPDESC: ORDERED: Blood Cult COMMENTS: Patient is On Antibiotics? NO Procedure Result Reported Site Aerobic Culture Bottle Final 04/29/19- 1814 ML No Growth Day 5 Anaerobic Culture Bottle Final 04/29/19- 1814 ML No Growth Day 5 * ML - Main Lab . END OF REPORT DEPARTMENT OF PATHOLOGY, [address] [place] [address] Clint Medina M.D. Director [facility] # [id number] 5 SEE RESULT BELOW Name: DAVID MESA : [address]: Cole Larios MD Acct: [id number] Unit: [id number] AGE: 59 Location: [place] [address] Re04/24/19 SEX: F Status: ADM IN SPEC: [id number] VIANNEY: 04/24/[address]: Joe MOORE REQ: [id number] RECD: 04/24/19 STATUS: MICHAEL VALDIVIA DR: Matilde León MD _ SOURCE: URINE SPDESC: ORDERED: Urine Culture Procedure Result Reported Site Urine Culture Final 04/26/19- 734 ML Organism 1 STREP GROUP B [place] Count >100,000 (Many) CFU/ML Organism 2 CITROBACTER FREUNDII [place] Count 10-25,000 (Moderate) CFU/ML Susceptibility testing of penicillins and other B-lactams approved by FDA for treatment of Streptococcus pyogenes (Group A Strep) and Streptococcus agalactiae (Group B Strep) is not necessary for clinical purposes and need not be done routinely, since as with vancomycin, resistant strains have not been recognized. (CLSI H375-W74;p.66) Positive isolates will be saved for one [...] CONTINUED ON NEXT PAGE DEPARTMENT OF PATHOLOGY, [address] [place] [address] Clint Medina M.D. Director [facility] # [id number] Patient: DAVID MESA [id number] (Continued) Specimen: [id number] Collected: 04/24/19 Received: 04/24/19 (Continued) Procedure Result Reported Site Urine Culture Final (continued) 04/26/19734 2. CITROBACTER FREUNDII (continued) M.ISonyaCSonya RX --------- ------ Aztreonam <=1 S Contact the Microbiology Department for any additional antibiotic reporting. * ML - Main Lab . END OF REPORT DEPARTMENT OF PATHOLOGY, [address] [place] [address] Clint Medina M.D. Director [facility] # [id number] 6 Result TnIDx:0.29 Called to [id number] at: 18:00:55 by:[id number] Read back by: [id number] Troponin-I testing on Plasma Separator Tubes (PST) has a known false positive rate of 0.20-0.40%. All positive troponins reflex immediately to secondary confirmatory testing. Using the Particle Code DxI 800 Access Immunoassay systems, the 99th percentile upper reference limit was demonstrated to be < 0.03 ng/mL. 7 [facility] Severe Sepsis and Septic Shock Management [...] range: 2.5-3.5 10 Result TnIDx:0.26 Called to [id number] at: 21:27:14 by:[id number] Read back by: [id number] Troponin-I testing on Plasma Separator Tubes (PST) has a known false positive rate of 0.20-0.40%. All positive troponins reflex immediately to secondary confirmatory testing. Using the Particle Code DxI 800 Access Immunoassay systems, the 99th percentile upper reference limit was demonstrated to be < 0.03 ng/mL. [address] Machine Operator: [id number] 12 Because ethnic data is not always [...] Result GLU:796 Called to LAURI at: 11:38:49 by:[id number] Read back by: [email or web address] 14 Because ethnic [...] dialysis) 15 Critical Result GLU:566 Called to [id number] at: 12:58:08 by:[id number] Read back by:[id number] 16 [place] Severe Sepsis and Septic Shock Management Bundle Measure requires all lactic acids initially measuring >2.0 mmol/L be repeated. 17 Normal Range 180 to 914 Indeterminate Range 145 to 180 Deficient Range <145 18 Test Performed by: [facility] [address] , [place] [address] 19 SEE RESULT BELOW Name: DAVID MESA : [address]: Carley Shearer MD Acct: [id number] Unit: [id number] AGE: 58 Location: [place] [address] Re03/09/19 Dis: 03/09/19 SEX: F Status: DIS IN SPEC: [id number] VIANNEY: 03/08/[address] [facility] [address]: Joe MOORE REQ: [id number] RECD: 03/08/19 STATUS: MICHAEL VALDIVIA DR: Matilde Romero MD _ SOURCE: BLOOD,VENO SPDESC: ORDERED: Blood Cult, Pediatric Bottl Procedure Result Reported Site Pediatric Blood Culture Final 03/13/19- 2240 ML No Growth Day 5 * ML - Main Lab . END OF REPORT DEPARTMENT OF PATHOLOGY, [address] [place] [address] Clint Medina M.D. Director [facility] # [id number] 20 Standard intensity warfarin therapeutic range: 2.0-3.0 High intensity warfarin therapeutic range: 2.5-3.5 21 Verbal to [id number] by [id number] at 0256 on 03/09/19. Results read back accurately. 22 Reference ranges based on room air. 23 Result TnIDx:0.08 Called to [id number] at: 23:55:45 by:[id number] Read back by: [id number] Troponin-I testing on Plasma Separator Tubes (PST) has a known false positive rate of 0.20-0.40%. All positive troponins reflex immediately to secondary confirmatory testing. Using the ZiipaI 800 Access Immunoassay systems, the 99th percentile [...] in selective patients <6.0%. Please refer to [employer] diabetic care guidelines for further [...] dialysis) Procedures Date Code Description Status 04/25/2019 46956 ECHO Transthorasic Realtime 2D W Doppler & Color Flow Completed Hosp 05/15/2018 569139664 Diabetic Retinal Eye Exam Completed 01/10/2018 614920203 Diabetic Retinal Eye Exam Completed 03/26/2016 511212350 Diabetic Retinal Eye Exam Completed 01/06/2016 569303918 Diabetic Retinal Eye Exam Completed 04/07/2013 117950679 Diabetic Retinal Eye Exam Completed 09/16/2011 71035279 Colonoscopy Completed Medical Devices Description No Information Available Encounters Type Date Location Provider Dx Diagnosis Office Visit 06/30/2019 Direct Care Specialist Internal Matilde Cotton, R60.0 Localized edema 6:00p Medicine - Sameer Godinez Z72.0 Tobacco use I10 Essential (primary) hypertension L97.919 Non-prs chronic ulc unsp prt of r low leg w unsp severity E11.621 Type 2 diabetes mellitus with foot ulcer Office Visit 05/06/2019 9:22a [facility] I50.9 Heart failure, Assoc,mt Ortiz M.D. unspecified Hospitalists E10.9 Type 1 diabetes mellitus without complications N18.9 Chronic kidney disease, unspecified M79.89 Other specified soft tissue disorders S81.801A Unspecified open wound, right lower leg, initial encounter Office Visit 05/05/2019 9:21a [facility] I13.0 Hyp hrt & chr Assoc,mt Ortiz M.D. 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 kdny dis w hrt Hospitalists fail and stg 1-4/unsp chr kdny I50.23 Acute on chronic systolic (congestive) heart failure N18.9 Chronic kidney disease, unspecified E10.622 Type 1 diabetes mellitus with other skin ulcer [facility] Hyp h[facility] & chr Assoc,mt Chavez M.D. kdny dis w hrt Hospitalists fail and stg 1-4/unsp chr kdny I50.23 Acute on chronic systolic (congestive) heart failure N18.9 Chronic kidney disease, unspecified E10.622 Type 1 diabetes mellitus with other skin ulcer Office Visit 05/02/2019 9:16a [facility] L97.919 Non-prs Assoc,mt Chavez M.D. chronic ulc Hospitalists unsp prt of r low leg w unsp severity I13.0 Hyp hrt & chr kdny dis w hrt fail and stg 1-4/unsp chr kdny I50.23 Acute on chronic systolic (congestive) heart failure E10.622 Type 1 diabetes mellitus with other skin ulcer Office Visit 05/02/2019 8:30a [facility]ress[facility]honatan Ayalaalexis L97.218 Non- pressure Center AT [facility], [employer] chronic ulcer of [facility] right calf with oth severity L97.419 Non-prs chr ulcer of right heel and midfoot w unsp severt E11.622 Type 2 diabetes mellitus with other skin ulcer I73.9 Peripheral vascular disease, unspecified Z66 Do not resuscitate I50.23 Acute on chronic systolic (congestive) heart failure Office Visit 05/01/2019 9:13a [facility] [facility] I13.0 Hyp hrt & chr Assoc,mt Chavez M.D. kdny dis w hrt Hospitalists fail and stg 1-4/unsp chr kdny I50.23 Acute on chronic systolic (congestive) heart failure E10.622 Type 1 diabetes mellitus with other skin ulcer Z89.512 Acquired absence of left leg below knee L97.919 Non-prs chronic ulc unsp prt of r low leg w unsp severity Office Visit 04/30/2019 9:12a [facility] I13.0 Hyp hrt & chr Assoc,mt Larios M.D. kdny dis w hrt Hospitalists fail and stg 1-4/unsp chr kdny I50.23 Acute on chronic systolic (congestive) heart failure L97.919 Non-prs chronic ulc unsp prt of r low leg w unsp severity N18.9 Chronic kidney disease, unspecified Office Visit 04/29/2019 9:12a [facility] I13.0 Hyp hrt & chr Assoc,mt Larios M.D. kdny dis w hrt Hospitalists fail and stg 1-4/unsp chr kdny I50.23 Acute on chronic systolic (congestive) heart failure L97.919 Non-prs chronic ulc unsp prt of r low leg w unsp severity N18.9 Chronic kidney disease, unspecified Office Visit 04/28/2019 [facility] L97.919 Non-prs 9:11a Assmt patel M.D. chronic [facility] Hospitalists unsp prt of r [...] [facility] chronic ulcer of [employer] Specialist right calf with oth severity L97.419 Non-prs chr ulcer of right heel and midfoot w unsp severt Office Visit 04/27/2019 9:10a [facility] Arleen Pacheco L97.919 Non- prs Assocmt M.D. chronic [facility] Hospitalists unsp prt of r [...] obstructive pulmonary disease, unspecified Office Visit 04/26/2019 [facility] L97.919 Non-prs 9:09a Assocmt M.D. chronic [facility] Hospitalists unsp prt of r low leg w unsp severity E10.622 Type 1 diabetes mellitus with other skin ulcer I13.0 Hyp hrt & chr kdny dis w hrt fail and stg 1-4/unsp chr kdny I87.2 Venous insufficiency (chronic) (peripheral) Office Visit 04/25/2019 8:00a Wound Care Tressa Lara E11.622 Type 2 diabetes Center AT [facility] Clayton [employer] mellitus with other skin ulcer L97.218 Non-pressure chronic ulcer of right calf with oth severity L97.419 Non-prs chr ulcer of right heel and midfoot w unsp severt I73.9 Peripheral vascular disease, unspecified [facility],mt Larios M.D. kdny dis w hrt Hospitalists fail and stg 1-4/unsp chr kdny I50.23 Acute on chronic systolic (congestive) heart failure L97.918 Non-prs chronic ulc unsp prt of r low leg with oth severity Office Visit 04/25/2019 9:09a Palliative Care Michelle Randall MD R53.[address] [facility] N18.4 Chronic kidney disease, stage 4 (severe) E10.622 Type 1 diabetes mellitus with other skin ulcer Office Visit 04/24/2019 8:58a [facility] Riccardo I13.0 Hyp hrt & chr Assoc,OSCAR Davies kdny dis w hrt Hospitalists fail and stg 1-4/unsp chr kdny E10.65 Type 1 diabetes mellitus with hyperglycemia M79.661 Pain in right lower leg N18.9 Chronic kidney disease, unspecified E10.42 Type 1 diabetes mellitus with diabetic polyneuropathy Z79.4 snf (current) use of insulin Office Visit 04/19/2019 10:00a [facility] David Goodwin L97.218 Non-pressure Medicine Of Yuan Zavala M.D. chronic ulcer of right calf with oth severity Office Visit 04/06/2019 9:00a Wound Care Cedrick Holman L97.218 Non-pressure Center AT [facility] Herbert Mcgovern chronic ulcer of right calf [...] Holman E11.621 Type 2 diabetes Center AT [facility] Herbert Mcgovern mellitus with foot ulcer E11.622 Type 2 diabetes mellitus with other skin ulcer L89.610 Pressure ulcer of right heel, unstageable E11.22 Type 2 diabetes mellitus w diabetic chronic kidney disease Office Visit 03/24/2019 10:34p [facility] Internal Matilde I50.9 Heart failure, Manas León [...] mellitus with foot ulcer Office Visit 03/09/2019 [facility] Bernard Boykin N17.9 Acute kidney 9:50a Assocmt M.D.,FACP failure, Hospitalists unspecified I50.23 Acute on chronic systolic (congestive) heart failure Office Visit 02/23/2019 10:00a [facility] Coch, N18.3 Chronic kidney Endocrinology of [facility] MD disease, stage 3 (moderate) E11.22 Type 2 diabetes mellitus w diabetic chronic kidney disease E87.6 Hypokalemia I50.9 Heart failure, unspecified Office Visit 02/10/2019 5:30p [facility] Internal Matilde I50.9 Heart failure, Manas León M.D. unspecified Ccmob E11.22 Type 2 diabetes mellitus w diabetic chronic kidney disease N18.4 Chronic kidney disease, stage 4 (severe) M21.961 Unspecified acquired deformity of right lower leg R33.9 Retention of urine, unspecified Z89.512 Acquired absence of left leg below knee Z87.891 Personal history of nicotine dependence Office Visit 01/13/2019 10:04a [facility] Internal Matilde I50.9 Heart failureManas M.D. unspecified Ccmob E11.22 Type 2 diabetes mellitus w diabetic chronic kidney disease M89.8x7 Other specified disorders of bone, ankle and foot R33.9 Retention of urine, unspecified N18.4 Chronic kidney disease, stage 4 (severe) Assessments Date Code Description Provider 07/14/2019 E10.22 Type 1 diabetes mellitus with Matilde León M.D. diabetic chronic kidney disease 07/14/2019 R60.0 Localized edema Matilde León M.D. 07/14/2019 L97.919 Non-pressure chronic ulcer of Matilde León M.D. unspecified part of right lower leg with unspecified severity 07/14/2019 Z72.0 Tobacco use Matilde León M.D. 07/13/2019 L97.919 Non-pressure chronic ulcer of Tressa Arnold, [employer] unspecified part of right lower leg with unspecified severity 07/13/2019 R60.0 Localized edema Tressa Arnold, [employer] 07/13/2019 E10.22 Type 1 diabetes mellitus with Tressa Arnold, [employer] diabetic chronic kidney disease 07/13/2019 I73.9 Peripheral vascular disease, Tressa Arnold, [employer] unspecified 07/07/2019 L97.919 Non-pressure chronic ulcer of Tressa Arnold, [employer] unspecified part of right lower leg with unspecified severity 07/07/2019 R60.0 Localized edema Tressa Arnold, [employer] 07/07/2019 E10.22 Type 1 diabetes mellitus with Tressa Arnold, [employer] diabetic chronic kidney disease 07/07/2019 I73.9 Peripheral vascular disease, Tressa Arnold, [employer] unspecified 06/30/2019 R60.0 Localized edema Matilde León [...] kidney disease 06/23/2019 R33.9 Retention of urine, unspecified Matilde León M.D. 06/23/2019 L97.919 Non-pressure chronic ulcer [...] with OSCAR Brown diabetic polyneuropathy 04/24/2019 Z79.4 snf (current) use of insulin OSCAR Brown 04/19/2019 [...] chronic kidney diseas 03/24/2019 I50.9 Heart failure, unspecified Matilde León M.D. 03/24/2019 N18.4 Chronic kidney [...] lower leg 02/10/2019 R33.9 Retention of urine, unspechelder León M.D. 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 dependence 01/13/2019 I50.9 Heart failure, shawn León M.D. 01/13/2019 E11.22 Type 2 diabetes mellitus with Matilde León M.D. diabetic chronic kidney diseas 01/13/2019 M89.8x7 Other specified disorders of bone, Matilde León M.D. ankle and foot 01/13/2019 R33.9 Retention of urine, shawn León M.D. 01/13/2019 N18.4 Chronic kidney disease, stage 4 Matilde León M.D. (severe) Plan of Treatment 07/14/2019 - Matilde León M.D.E10.22 Type 1 diabetes mellitus with diabetic chronic kidney diseaseComments:Try to eat regular mealsYour blood sugars are periodically too lowReduce the Lantus to 18 units per dayTake the Kwikpen with meals Make an appointment with Dr. Hdez - [phone] Localized edemaComments:Please do blood tests when you have your appointment with Dr. HdezL97.919 Non-pressure chronic ulcer of unspecified part of right lower leg with unspecified severityNew Orders:Wheelchair, Ordered: 07/14/19Roho cushion, Ordered: 07/14/19Comments:You need a new wheelchair with cushion. [facility] to do the dressings until you get other instructions from wound hwsrkyK06.0 Tobacco useComments:Start back on sertraline - this is an antidepressant, helps anxietyAlprazolam - for anxiety and or sleep Keep reducing cigarettes! Functional Status Description No Information Available Mental Status Description No Information Available Referrals Refer to Reason for Referral Status Appt Date Wound Clinic 59 yo female with PMH DM, and venous stasis ulcer to Sent 00/00 /0000 the right posterior lateral calf, there is yellow slough and eschar in the wound. She need debridement. Has not tolerated Santyl in the past due to burning. Has been using calcium alginate, and smaller wounds are improving. [address] [place] [id number] [phone] Graham Zavala MD Has appt on 04/12 Scheduled 04/12/[address] [place], [place] [id number] [phone] Wound Clinic leg ulcer. Patient with severe edema due to end stage Sent renal disease and CHF. Was d/c from hospice in January [address] [place] [address] [phone] Oscar Hdez MD please reach out to pt on 01/20/19 pt Patient Notified 02/23 will be discharged from hospice by then [address] [place] [phone] Tom Hess MD Sent 01/24/2019 [address] [facility] [place] [address] [phone]
--- OUTSIDE RECORDS SUMMARY | 2019-07-22 09:54 | XMS REPORT | Continuity of Care Document ---
:1960 External Reference #:[id number] Author Name Tressa Arnold NP (transmitted by agent of provider Yuli Moore) Address [address] [place] [id number] Care Team Providers Name Role Phone Dinesh Adams MD - Orthopaedic Care Team Information Cemetery Workers Supervisor Surgery Tom Hess MD - Orthopaedic Care Team Information [employer] Workers Supervisor Surgery Janusz Cutler M.D. 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 10un L97.919 Matilde 06/23/2019 (Chitosan-Based Apply to wound [...] once daily Pramipexole 1 PO QHS 30tabs [facility] 06/23/2019 Dihydrochloride Herbert León 0.5mg Tablets Torsemide 1 PO bid 60tabs Matilde 06/23/2019 100mg Tablets Herbert León Wheelchair Cushion [facility] Z[facility].9 Matilde 06/23/2019 [facility] wheelchair Herbert León Lantus Solostar inject 20 units 30ml Matilde 04/20/2019 once daily in am Herbert León 100Unit/ML Solution (increased to 35 Pen-Inject units at hs per pt) Humalog Kwikpen 10 units s/c 30ml Matilde 04/14/2019 before meals, Herbert León 100Unit/ML Solution increase to 15 as Pen-Inject needed to maintain blood sugar under 300 Pen [place] 1/2" for use 3 times a 100units E11.65 Matilde 04/14/2019 29G X day with insulin Cotton, M.DSonya 12mm Misc pen Z79.4 Vitamin B-12 1 by mouth every day 30tabs [facility], 03/14/2019 M.D. 1000mcg Tablets Insulin substitution okay; use 150units E13.8 Oscar Hdez MD 02/23/2019 Syringe/0.3ML/30G 4 times/day for X 02/23" insulin injection 30G X 02/23" 0.3 ML Misc Morphine Sulfate 10 to 40 mg. every [address] [facility], 2018 (Concentrate) hours as needed for M.D. pain or sob 20mg/ml Solution I50.23 Alprazolam 1 tablets by mouth 30tabs [facility], 10/31/2018 0.25mg three times daily M.D. Tablets as needed for anxiety Imodium A-D 2 tabs by mouth 30tabs [facility], 11/25/2017 2mg with first loose M.D. Tablets stool, followed by 1 by mouth as needed loose stool up to max 4 per day Freestyle Lite Test 4x a day and as 100units E11.69 Estela Lackey N.P. Strips needed dx e11.69 Strips Nitrostat one sl q 5min up to 25tabs [facility], 11/02/2011 0.4mg 3 doses as needed M.D. Tablets Sub chest pain Gabapentin [address] [facility], 08/27/2010 600mg M.D. Tablets Aspir-81 1 by mouth every Unknown 81mg Tablets day DR Emerson please use o2 nc as Matilde Cotton, Misc needed M.D. Tylenol 8 Hour 1 tab every 4 hours Unknown 650mg as needed Tablets ER Ferrous Sulfate Take one by mouth 30tabs [facility], 325mg with a glass of M.D. Tablets orange juice twice a week. If tolerated, increase gradually to every day History Medications Chantix Starting Month take as 42tabs Matilde 06/23/2019 - Abdi directed Herbert León 07/06/2019 0.5mg X 11 & 1 mg X 42 Tablets Pramipexole 1 tab by mouth 30tabs [facility] 04/08/2019 - Dihydrochloride at bedtime Herbert León 06/23/2019 0.125mg Tablets Furosemide 80 mg IV 30ml [facility] 03/17/2019 - 10mg/ml infusion via Herbert León 06/23/2019 Solution port twice weekly Clindamycin HCL 1 by mouth four 40caps L03.115 [facility] 02/28/2019 - 300mg times a day for Herbert León 03/16/2019 Capsules 10 days Novolin R Relion 8 units with 10ml Oscar Hdez MD 02/24/2019 - meals, MDD 30 03/24/2019 100Unit/ML Solution Novolin N Relion 8 units at 10ml Oscar Hdez MD 02/24/2019 - bedtime, MDD 30 03/24/2019 100Unit/ML Suspension Novolog use three times 20ml E13.Maximino Hdez MD 02/23/2019 - 100Unit/ML daily with 03/24/2019 Solution meals, mdd 60 units Potassium Chloride 1 tablet daily 30tabs E13Scot Hdez MD 02/23/2019 - Alana ER 06/23/2019 10Meq Tablets ER Senna-S [facility] 02/10/2019 - 8.6-50mg Tablets Herbert León 06/23/2019 Nicotine Polacrilex Chew one piece 150units Z87.891 [facility] 02/10/2019 - 2mg every 2-4 hours Herbert León 06/23/2019 Gum Senna-Docusate Sodium [facility] 02/10/2019 - Herbert León 06/23/2019 8.6-50mg Tablets Monurol Mix One Packet 3units [facility] 01/17/2019 - Granules Abdi With 3 Ounces Herbert León 02/10/2019 Of Cool Water Every 3 Days Immunizations CPT Code Status Date Vaccine Lot # [id number] Given 11/05/2017 Influenza Virus Vaccine, Quadrivalent, Split, [id number] Preservative Free 99734 Given 10/20/2016 Influ Virus Vaccine, Quadrivalent, Split Virus, [place] [id number] [place] [address] Given 09/12/2015 Influenza Virus Vaccine, Quadrivalent, Split, [id number] Preservative Free 37726 Given 06/15/2013 Pneumonia Vaccine 30915 Given 10/11/2012 Pneumonia Vaccine [id number] 60814 Given 10/11/2010 Tetanus And Diptheria (Td) For Adult Use Preservative Free 43912 Given 07/20/2010 Influenza Virus 3Yrs & Over Vital Signs Date Vital Result Comment 07/07/2019 2:28pm Weight 137.00 lb per pt Heart Rate 84 /min BP Systolic Sitting 138 mmHg BP Diastolic Sitting 74 mmHg Respiratory Rate 14 /min Body Temperature 98.5 F 06/30/2019 7:56pm Heart Rate 102 /min BP Systolic 128 mmHg BP Diastolic 72 mmHg O2 % BldC Oximetry 95 % Results Test Date Facility Test Result H/L Range Note Comp Metabolic Panel 07/07/2019 [facility] Sodium 129 mmol/L Low 135-[address] [place] [address] [phone] Potassium 2.8 mmol/L Low 3.5-5.0 Chloride 90 [...] Egfr 22.6 >60 1 Laboratory test 07/07/2019 [facility] Hemoglobin A1c <pending> finding [address] (Glyco HGB) [place] [address] [phone] CBC Auto Diff 07/07/2019 [facility] White Blood 10.9 10^3/uL High 3.5-[address] Count 0.8 [place] [address] [phone] Red Blood Count 3.07 10^6/uL Low 3.70-4.87 [...] Red Blood Cells % 0.3 Laboratory 07/07/2019 [facility] TSH (Thyroid 1.63 Normal 0.34 -5.60 test finding [address] Stim Horm) mcIU/mL [place], [place] [address] [phone] Cell 07/07/2019 [facility] Macrocytosis 2+ Morphology [address] [place] [address] [phone] Microcytosis 2+ Hypochromasia 1+ Polychromasia 1+ Anisocytosis 3+ Order 06/20/2019 [facility] Hospice <pending> [address] [place] [address] [phone] Laboratory test 04/24/2019 [facility] B-Type > 1300 pg/mL High <=[address] Natriuretic 0 [place] [address] Peptide BNP [phone] Laboratory test 04/24/2019 [facility] Blood Culture SEE RESULT [address] [place] [address] [phone] Urine Culture And 04/24/2019 [facility] Urine Culture SEE RESULT [address] [place] [address] [phone] Urinalysis 04/24/2019 [facility] Urine Color Yellow Profile [address] [place] [address] [phone] Urine Appearance Clear Urine Specific [place] 1.012 Normal 1.010-1.030 Urine pH 6.0 Normal [...] Bacteria 1+ Abnormal Absent Laboratory test 04/24/2019 [facility] C Reactive 50.47 mg/L High <8.[address] [place] [address] [phone] Troponin-I (TnI) 0.29 ng/mL Critical high <0.04 4 Lactic Acid 1.2 mmol/L Normal 0.5-2.0 5 Comp Metabolic Panel 04/24/2019 [facility] Sodium 130 mmol/L Low 135-[address] [place] [address] [phone] Potassium 4.7 mmol/L Normal 3.5-5.0 Chloride 95 [...] Egfr Non- 22.7 >60 Egfr 27.5 >60 6 Inr/Protime 04/24/2019 [facility] Inr 1.12 High 0.82-1.[address] [place] [address] [phone] CBC Auto Diff 04/24/2019 [facility] White Blood 14.2 High 3.5- 10.[address] Count 10^3/[place] [address] [phone] Red Blood Count 4.28 10^6/uL Normal 3.70-4.87 [...] Red Blood Cells % 0.3 Laboratory 04/24/2019 [facility] Troponin-I 0.26 Critical < 0.04 8 test finding [address] (TnI) ng/[place] [address] [phone] Laboratory 04/24/2019 [facility] Point of Care > 444 Critical 70-100 9 test finding [address] Glucose mg/[place] [address] [phone] Laboratory 04/14/2019 [facility] Ferritin 40.1 Normal 11-307 test finding [address] ng/[place] [address] [phone] Iron & Iron 04/14/2019 [facility] Total Iron 361 Normal 250- [address] Binding g/[place] [address] Capacity [phone] Transferrin 258 mg/dL Normal 203-362 Iron < 17 g/dL Low 50-212 Unsaturated Iron Binding < 346 g/dL % Iron Saturation 5 % Low 15-55 CBC Auto 04/14/2019 [facility] White Blood 13.7 10^3/uL High 3.5-10.[address] [place] [address] [phone] Red Blood Count 3.71 10^6/uL Normal 3.70-4.87 [...] Blood Cells % 0.1 Laboratory test 04/14/2019 [facility] B-Type > 1300 High <= [address] Natriuretic pg/[place] [address] Peptide BNP [phone] Comp Metabolic 04/14/2019 [facility] Sodium 126 Low 135-[address] mmol/[place] [address] [phone] Potassium 4.4 mmol/L Normal 3.5-5.0 Chloride 93 [...] Egfr Non- 24.2 >60 Egfr 29.3 >60 10 Glucose 796 mg/dL Critical high 70-100 11 Basic Metabolic 03/30/2019 [facility] Sodium 126 mmol/L Low 135-145 Panel [address] [place] [address] [phone] Potassium 3.7 mmol/L Normal 3.5-5.0 Chloride 93 mmol/L Low 101-111 Co2 Carbon Dioxide 26 mmol/L Normal 22-32 Anion Gap 7 mmol/L Normal 2-11 Blood Urea Nitrogen 36 mg/dL High 6-24 Creatinine 2.39 mg/dL High 0.51-0.95 BUN/Creatinine Ratio 15.1 Normal 8-20 Calcium 8.3 mg/dL Low 8.6-10.3 Egfr Non- 20.9 >60 Egfr 25.3 >60 12 Glucose 566 mg/dL Critical high 70-100 13 Liver Function 03/30/2019 [facility] Total Protein 5.3 g/dL Low 6.4-8.9 Panel [address] [place] [address] [phone] Albumin 2.4 g/dL Low 3.2-5.2 Globulin 2.9 g/dL Normal 2-4 Albumin/Globulin Ratio 0.8 Low 1-3 Total Bilirubin 0.30 mg/dL Normal 0.2-1.0 Direct Bilirubin 0.10 mg/dL Normal 0.03-0.18 Indirect Bilirubin 0.2 mg/dL Low 0.3-1.0 Alkaline Phosphatase 169 U/L High 34-104 Alt 8 U/L Normal 7-52 Ast 9 U/L Low 13-39 Order 03/20/2019 [facility] Furosemide <pending> [address] [place] [address] [phone] CBC Auto 03/08/2019 [facility] White Blood 18.8 10^3/uL High 3.5-[address] Count .8 [place] [address] [phone] Red Blood Count 2.71 10^6/uL Low 3.70-4.87 [...] Blood Cells % 0.0 Laboratory test 03/08/2019 [facility] Lactic Acid 1.4 mmol/L Normal 0.5-2.0 [address] [place] [address] [phone] Retic Count 03/08/2019 [facility] Retic Count 1.9 % High 0.5- 1.[address] [place] [address] [phone] Corrected Retic Count 0.9 % Normal 0.5-1.5 Maturation Factor Retic 2.0 Retic Index 0.50 Mean Retic Volume 108.3 Immature Retic Fraction 0.60 RBC Retic Count 2.72 10^6/uL Low 3.70-4.87 Hematocrit for Retic CNT 22 % Low 35-47 Laboratory test 03/08/2019 [facility] LDH 310 U/L High 140- [address] [place] [address] [phone] Iron & Iron 03/08/2019 [facility] Total Iron 298 Normal 250- [address] Binding g/[place] [address] Capacity [phone] Transferrin 213 mg/dL Normal 203-362 Iron < 17 g/dL Low 50-212 Unsaturated Iron Binding < 283 g/dL % Iron Saturation 6 % Low 15-55 Laboratory test 03/08/2019 [facility] Ferritin 94.3 ng/mL Normal 11-307 finding [address] [place], [place] [address] [phone] Vitamin B12 296 pg/mL Normal 180-914 15 Haptoglobin 414 mg/dL Abnormal 30 - 200 16 Pediatric Blood Culture SEE RESULT BELOW 17 Inr/Protime 03/08/2019 [facility] Inr 0.95 Normal 0.82-1.09 18 [address] [place] [address] [phone] Laboratory test 03/08/2019 [facility] B-Type 1236 High <=100 finding [address] [facility] Natriuretic pg/[place] [address] Peptide BNP [phone] Arterial Blood 03/08/2019 [facility] PH Arterial 7.31 Low 7.35 -7.45 Gas [address] [place] [address] [phone] Pco2 Arterial 40 mmHg Normal 35-45 Po2 Arterial 39 mmHg Critical low 80-100 19 O2 Saturation Arterial 64.9 % Low 94.0-98.0 Base Excess Arterial -5.8 mmol/L Low -2.0-2.0 20 Hco3 Arterial 19.5 mmol/L Normal 19-31 Laboratory test 03/08/2019 [facility] C Reactive 81.98 mg/L High <8.01 finding [address] [facility] [place] [address] [phone] Troponin-I (TnI) 0.08 ng/mL Critical high <0.04 21 Comp Metabolic Panel 03/08/2019 [facility] Sodium 130 mmol/L Low 135-[address] [place] [address] [phone] Potassium 2.8 mmol/L Low 3.5-5.0 Chloride 100 [...] Egfr Non- 18.6 >60 Egfr 22.5 >60 22 Laboratory test 02/23/2019 [facility] Hemoglobin A1c 9.5 % High 4.0-5.[address] (Glyco HGB) [place] [address] [phone] Lipid Profile 02/23/2019 [facility] Triglycerides 223 24 (Trig/Chol/HDL) [address] mg/[place] [address] [phone] Cholesterol 263 mg/dL 25 HDL Cholesterol 55.1 mg/dL 26 LDL Cholesterol 163 mg/dL 27 Comp Metabolic 02/23/2019 [facility] Sodium 135 mmol/L Normal 135-[address] [place] [address] [phone] Potassium 2.9 mmol/L Low 3.5-5.0 Chloride 105 [...] Egfr Non- 23.4 >60 Egfr 28.3 >60 28 1 Because ethnic data is not always [...] [address]: Cole Larios MD Acct: [id number] Unit: [id number] AGE: 59 Location: [place] [address] Re04/24/19 SEX: F Status: ADM IN SPEC: [id number] VIANNEY: 04/24/[address] [facility] DR: Joe MOORE REQ: [id number] RECD: 04/24/19 STATUS: MICHAEL VALDIVIA DR: Matilde León MD _ SOURCE: BLOOD,VENO SPDESC: ORDERED: Blood Cult COMMENTS: Patient is On Antibiotics? NO Procedure Result Reported Site Aerobic Culture Bottle Final 04/29/191814 ML No Growth Day 5 Anaerobic Culture Bottle Final 04/29/191814 ML No Growth Day 5 * ML - Main Lab . END OF REPORT DEPARTMENT OF PATHOLOGY, [address] [place] [address] Clint Medina M.D. Director [facility]AYUSH # [id number] 3 SEE RESULT BELOW Name: DAVID MESA : [address]: Cole Larios MD Acct: [id number] Unit: [id number] AGE: 59 Location: [place] [address] Re04/24/19 SEX: F Status: ADM IN SPEC: [id number] VIANNEY: 04/24/[address] [facility] DR: Joe MOORE REQ: [id number] RECD: 04/24/19 STATUS: MICHAEL VALDIVIA DR: Matilde León MD _ SOURCE: URINE SPDESC: ORDERED: Urine Culture Procedure Result Reported Site Urine Culture Final 04/26/19- 734 ML Organism 1 STREP GROUP B [place] Count >100,000 (Many) CFU/ML Organism 2 CITROBACTER FREUNDII [place] Count 10-25,000 (Moderate) CFU/ML Susceptibility testing of penicillins and other B-lactams approved by FDA for treatment of Streptococcus pyogenes (Group A Strep) and Streptococcus agalactiae (Group B Strep) is not necessary for clinical purposes and need not be done routinely, since as with vancomycin, resistant strains have not been recognized. (CLSI Y849-T35;p.66) Positive isolates will be saved for one [...] CONTINUED ON NEXT PAGE DEPARTMENT OF PATHOLOGY, [address] [place] [address] Clint Medina M.D. Director JWDC # [id number] Patient: DAVID MESA [id number] (Continued) Specimen: [id number] Collected: 04/24/19 Received: 04/24/19 (Continued) Procedure Result Reported Site Urine Culture Final (continued) 04/26/19734 2. CITROBACTER FREUNDII (continued) M.I.C. RX --------- ------ Aztreonam <=1 S Contact the Microbiology Department for any additional antibiotic reporting. * ML - Main Lab . END OF REPORT DEPARTMENT OF PATHOLOGY, [address] [place] [address] Clint Medina M.D. Director [facility] # [id number] 4 Result TnIDx:0.29 Called to [id number] at: 18:00:55 by:[id number] Read back by: [id number] Troponin-I testing on Plasma Separator Tubes (PST) has a known false positive rate of 0.20-0.40%. All positive troponins reflex immediately to secondary confirmatory testing. Using the Abigail Stewart DxI 800 Access Immunoassay systems, the 99th percentile upper reference limit was demonstrated to be < 0.03 ng/mL. 5 [facility] Severe Sepsis and Septic Shock Management Bundle Measure requires all lactic acids initially measuring >2.0 mmol/L be repeated. 6 Because ethnic data is not always readily [...] 15-29 5 Kidney failure <15 (or dialysis) 7 Standard intensity warfarin therapeutic range: 2.0-3.0 High intensity warfarin therapeutic range: 2.5-3.5 8 Result TnIDx:0.26 Called to [id number] at: 21:27:14 by:[id number] Read back by: [id number] Troponin-I testing on Plasma Separator Tubes (PST) has a known false positive rate of 0.20-0.40%. All positive troponins reflex immediately to secondary confirmatory testing. Using the Abigail Stewart DxI 800 Access Immunoassay systems, the 99th percentile upper reference limit was demonstrated to be < 0.03 ng/mL. 9 Production Assistant: [id number] 10 Because ethnic data is not always readily [...] 15-29 5 Kidney failure <15 (or dialysis) 11 Critical Result [id number] Called to LAURI at: 11:38:49 by:[id number] Read back by: [email or web address] 12 Because ethnic data is not always [...] failure <15 (or dialysis) 13 Critical Result [id number] Called to JOSE MIGUEL at: 12:58:08 by:[id number] Read back by: 14 AZS Severe Sepsis and Septic Shock Management Bundle Measure requires all lactic acids initially measuring >2.0 mmol/L be repeated. 15 Normal Range 180 to 914 Indeterminate Range 145 to 180 Deficient Range <145 16 Test Performed by: [facility] [address] [place] [id number] 17 SEE RESULT BELOW Name: DAVID MESA : [address]: Carley Shearer MD Acct: [id number] Unit: [id number] AGE: 58 Location: [place] [address] Re03/09/19 Dis: 03/09/19 SEX: F Status: DIS IN SPEC: [id number] VIANNEY: 03/08/[address] [facility] DR: Joe MOORE REQ: [id number] RECD: 03/08/19 STATUS: MICHAEL VALDIVIA DR: Matilde Romero MD _ SOURCE: BLOOD,VENO SPDESC: ORDERED: Blood Cult, Pediatric Bottl Procedure Result Reported Site Pediatric Blood Culture Final 03/13/19- 2239 ML No Growth Day 5 * ML - Main Lab . END OF REPORT DEPARTMENT OF PATHOLOGY, [address] [place] [address] Clint Medina M.D. Director [facility] # [id number] 18 Standard intensity warfarin therapeutic range: 2.0-3.0 High intensity warfarin therapeutic range: 2.5-3.5 19 Verbal to [id number] by [id number] at 0256 on 03/09/19. Results read back accurately. 20 Reference ranges based on room air. 21 Result TnIDx:0.08 Called to [id number] at: 23:55:45 by:[id number] Read back by: [id number] Troponin-I testing on Plasma Separator Tubes (PST) has a known false positive rate of 0.20-0.40%. All positive troponins reflex immediately to secondary confirmatory testing. Using the Abigail Stewart DxI 800 Access Immunoassay systems, the 99th percentile upper reference limit was demonstrated to be < 0.03 ng/mL. 22 Because ethnic data is not always readily [...] 15-29 5 Kidney failure <15 (or dialysis) 23 Therapeutic target for the treatment of diabetes mellitus patients is <7% HBA1C, and in selective patients <6.0%. Please refer to [place] [employer] diabetic care guidelines for further information. 24 Desirable: <150 Borderline High: 150-199 High: 200-499 Very High: >500 25 Desirable: <200 Borderline High: 200-239 High: >239 26 Low: <40 Desirable: 40-60 High: >60 27 Desirable: <100 Near Optimal: 100-129 Borderline High: 130-159 High: 160-189 Very High: >189 28 Because ethnic data is not always readily [...] dialysis) Procedures Date Code Description Status 04/25/2019 82318 ECHO Transthorasic Realtime 2D W Doppler & Color Flow Completed Hosp 05/15/2018 185675684 Diabetic Retinal Eye Exam Completed 01/10/2018 522714822 Diabetic Retinal Eye Exam Completed 03/26/2016 674089038 Diabetic Retinal Eye Exam Completed 01/06/2016 408364426 Diabetic Retinal Eye Exam Completed 04/07/2013 259402058 Diabetic Retinal Eye Exam Completed 09/16/2011 [id number] Colonoscopy Completed Medical Devices Description No Information Available Encounters Type Date Location Provider Dx Diagnosis Office Visit 05/06/2019 [facility] [place] Jose Luis Ortiz, I50.9 Heart failure , 9:22a Assocmt M.D. unspecified Hospitalists E10.9 Type 1 diabetes mellitus without complications N18.9 Chronic kidney disease, unspecified M79.89 Other specified soft tissue disorders S81.801A Unspecified open wound, right lower leg, initial encounter Office Visit 05/05/2019 9:21a [facility] I13.0 Hyp hrt & chr Assoc,mt Ortiz M.D. 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 [place] Carley I13.0 Hyp hrt & chr Assoc,mt Chavez M.D. kdny dis w hrt Hospitalists fail and stg 1-4/unsp chr kdny I50.23 Acute on chronic systolic (congestive) heart failure N18.9 Chronic kidney disease, unspecified E10.622 Type 1 diabetes mellitus with other skin ulcer Office Visit 05/03[facility]2019 [facility] I[facility].0 Hyp h[facility] & chr Assoc,mt Chavez M.D. kdny dis w hrt Hospitalists fail and stg 1-4/unsp chr kdny I50.23 Acute on chronic systolic (congestive) heart failure N18.9 Chronic kidney disease, unspecified E10.622 Type 1 diabetes mellitus with other skin ulcer Office Visit 05/02/2019 9:16a [facility] [place] Carley L97.919 Non-prs Assoc,mt Chavez M.D. chronic ulc Hospitalists unsp prt of r low leg w unsp severity I13.0 Hyp hrt & chr kdny dis w hrt fail and stg 1-4/unsp chr kdny I50.23 Acute on chronic systolic (congestive) heart failure E10.622 Type 1 diabetes mellitus with other skin ulcer Office Visit 05/02/2019 8:30a [facility] Lara L97.218 Non- pressure Center AT [facility], [facility] chronic ulcer of CMC right calf with oth severity L97.419 Non-prs chr ulcer of right heel and midfoot w unsp severt E11.622 Type 2 diabetes mellitus with other skin ulcer I73.9 Peripheral vascular disease, unspecified Z66 Do not resuscitate I50.23 Acute on chronic systolic (congestive) heart failure Office Visit 05/01/2019 9:13a [facility] I13.0 Hyp hrt & chr Assoc,mt Chavez M.D. kdny dis w hrt Hospitalists fail and stg 1-4/unsp chr kdny I50.23 Acute on chronic systolic (congestive) heart failure E10.622 Type 1 diabetes mellitus with other skin ulcer Z89.512 Acquired absence of left leg below knee L97.919 Non-prs chronic ulc unsp prt of r low leg w unsp severity Office Visit 04/30/2019 9:12a [facility] I13.0 Hyp hrt & chr Assoc,mt Larios M.D. kdny dis w hrt Hospitalists fail and stg 1-4/unsp chr kdny I50.23 Acute on chronic systolic (congestive) heart failure L97.919 Non-prs chronic ulc unsp prt of r low leg w unsp severity N18.9 Chronic kidney disease, unspecified Office Visit 04/29/2019 9:12a [facility] I13.0 Hyp hrt & chr Assoc,mt Larios M.D. kdny dis w hrt Hospitalists fail and stg 1-4/unsp chr kdny I50.23 Acute on chronic systolic (congestive) heart failure L97.919 Non-prs chronic ulc unsp prt of r low leg w unsp severity N18.9 Chronic kidney disease, unspecified Office Visit 04/28/2019 [facility] L97.919 Non-prs 9:11a Assoc,mt Larios M.D. chronic ulc Hospitalists unsp prt of [...] [facility] Gian chronic ulcer of [employer] right calf with oth severity L97.419 Non-prs chr ulcer of right heel and midfoot w unsp severt Office Visit 04/27/2019 9:10a [facility] [place] Arleen Pacheco, L97.919 Non- prs Assocmt M.D. chronic [facility] Hospitalists unsp prt of r low leg [...] obstructive pulmonary disease, unspecified Office Visit 04/26/2019 [facility] L97.919 Non-prs 9:09a Assocmt M.D. chronic [facility] Hospitalists unsp prt of r low leg w unsp severity E10.622 Type 1 diabetes mellitus with other skin ulcer I13.0 Hyp hrt & chr kdny dis w hrt fail and stg 1-4/unsp chr kdny I87.2 Venous insufficiency (chronic) (peripheral) Office Visit 04/25/2019 8:00a Wound Care Tressa Lara E11.622 Type 2 diabetes Center AT [facility] Arnold, [employer] mellitus with other skin ulcer L97.218 Non-pressure chronic ulcer of right calf with oth severity L97.419 Non-prs chr ulcer of right heel and midfoot w unsp severt I73.9 Peripheral vascular disease, unspecified [facility] Visit 04[facility]/2019 [facility]0 Hyp h[facility] & chr Assocmt M.D. kdny dis w hrt Hospitalists fail and stg 1-4/unsp chr kdny I50.23 Acute on chronic systolic (congestive) heart failure L97.918 Non-prs chronic ul unsp prt of r low leg with oth severity Office Visit 04/25/2019 9:09a Palliative Care Michelle Randall MD R53.1 Weakness [facility] N18.4 Chronic kidney disease, stage 4 (severe) E10.622 Type 1 diabetes mellitus with other skin ulcer Office Visit 04/24/2019 8:[address] [facility] [place] Riccardo I13.0 Hyp hrt & chr Assoc,OSCAR Davies dis w hrt Hospitalists fail and stg 1-4/unsp chr kdetelvina E10.65 Type 1 diabetes mellitus with hyperglycemia M79.661 Pain in right lower leg N18.9 Chronic kidney disease, unspecified E10.42 Type 1 diabetes mellitus with diabetic polyneuropathy Z79.4 long term acute care registered nurse (current) use of insulin Office Visit 04/19/2019 10:00a [facility] Graham Goodwin L97.218 Non-pressure Medicine Of Yuan Zavala M.D. chronic ulcer of right calf with oth severity Office Visit 04/06/2019 9:00a Wound Care Cedrick Holman L97.218 Non-pressure Center AT [facility] Herbert Mcgovern chronic ulcer of right calf [...] Holman E11.621 Type 2 diabetes Center AT [facility] Herbert Mcgovern mellitus with foot ulcer E11.622 Type 2 diabetes mellitus with other skin ulcer L89.610 Pressure ulcer of right heel, unstageable E11.22 Type 2 diabetes mellitus w diabetic chronic kidney disease Office Visit 03/24/2019 10:34p [facility] Internal Matilde I50.9 Heart failureManas M.D. unspecified C[facility] N18.4 Chronic kidney disease, stage 4 (severe) M21.961 Unspecified acquired deformity of right lower leg Z72.0 Tobacco use R33.9 Retention of urine, unspecified L97.829 Non-pressure chronic ulcer oth prt l low leg w unsp severity F41.9 Anxiety disorder, unspecified E11.22 Type 2 diabetes mellitus w diabetic chronic kidney disease E11.621 Type 2 diabetes mellitus with foot ulcer Office Visit 03/09/2019 [facility] [place] Bernard Boykin N17.9 Acute kidney 9:50a Assoc,mt Bonilla M.D.,FACP failure, Hospitalists unspecified I50.23 Acute on chronic systolic (congestive) heart failure Office Visit 02/23/2019 10:00a [facility] Moore Coch, N18.3 Chronic kidney [facility] MD disease, stage 3 (moderate) E11.22 Type 2 diabetes mellitus w diabetic chronic kidney disease E87.6 Hypokalemia I50.9 Heart failure, unspecified Office Visit 02/10/2019 5:30p [facility] Internal Matilde I50.9 Heart failure, Manas León M.D. unspecified [facility] E11.22 Type 2 diabetes mellitus w diabetic chronic kidney disease N18.4 Chronic kidney disease, stage 4 (severe) M21.961 Unspecified acquired deformity of right lower leg R33.9 Retention of urine, unspecified Z89.512 Acquired absence of left leg below knee Z87.891 Personal history of nicotine dependence Office Visit 01/13/2019 10:04a [facility] Internal Matilde I50.9 Heart failure, Manas León M.D. unspecified [facility] E11.22 Type 2 diabetes mellitus w diabetic chronic kidney disease M89.8x7 Other specified disorders of bone, ankle and foot R33.9 Retention of urine, unspecified N18.4 Chronic kidney disease, stage 4 (severe) Assessments Date Code Description Provider 07/07/2019 L97.919 Non-pressure chronic ulcer of Tressa Arnold NP unspecified part of right lower leg with unspecified severity 07/07/2019 R60.0 Localized edema Tressa Arnold, VIKRAM 07/07/2019 E10.22 Type 1 diabetes mellitus with Tressa Arnold NP diabetic chronic kidney disease 07/07/2019 I73.9 Peripheral vascular disease, Tressa Arnold NP unspecified 06/30/2019 R60.0 Localized edema Matilde León M.D. 06/30/2019 Z72.0 Tobacco use Matilde León M.D. 06/30/2019 I10 Essential (primary) hypertension Matilde León M.D. 06/30/2019 L97.919 Non-pressure chronic ulcer of Matilde León M.D. unspecified part of right lower leg with unspecified severity 06/23/2019 I50.9 Heart failure, unspecified Matilde León [...] M.D. and grafts 05/06/2019 I50.9 Heart failure, unspechelder Ortiz M.D. 05/06/2019 E10.9 Type 1 diabetes [...] with OSCAR Brown diabetic polyneuropathy 04/24/2019 Z79.4 long term acute care registered nurse (current) use of insulin OSCAR Brown 04/19/2019 L97.218 Non-pressure chronic ulcer of right Graham Zavala M.D. calf with other specifie 04/07/2019 I50.9 Heart failure, unspecified Matilde León M.D. 04/07/2019 N18.4 Chronic kidney disease, stage 4 Matilde León M.D. (severe) 04/07/2019 E11.621 Type 2 diabetes mellitus with foot Matilde León M.D. ulcer 04/07/2019 R33.9 Retention of urine, jarethified Matilde León M.D. 04/07/2019 D64.9 Anemia, jarethified Matilde León M.D. 04/07/2019 G25.81 Restless legs [...] León M.D. (severe) Plan of Treatment Future Appointment(s):07/13/2019 10:00 am - Tressa Arnold NP [facility]29/04/2019 4:00 pm - Matilde León M.D. at [facility] Internal Medicine - Ccmob07/07/2019 - Tressa Arnold, VIKRAML97.919 Non-prs chronic ulc unsp prt of r low leg w unsp severityFollow up: Wednesday or next week with meR60.0 Localized oftfhB77.22 Type 1 diabetes mellitus w diabetic chronic kidney klnqfpvL48.9 Peripheral vascular disease, unspecified Functional Status Description No Information Available Mental Status Description No Information Available Referrals Refer to Dr Reason for Referral Status Appt Date Graham Zavala MD Has appt on 04/12 Scheduled 04/12/[address] [place] [id number] [phone] Wound Clinic leg ulcer. Patient with severe edema due to end stage Sent renal disease and CHF. [place] [address] [phone] Oscar Hdez MD please reach out to pt on 01/20/19 pt Patient Notified 02/23 will be discharged from hospice by then [address] [phone] Tom Hess MD Sent 01/24/2019 [address] [facility] [place], [place] [id number] [phone]
[2019-07-22 10:25] LABS: Hematocrit 25 % (35-47); Hemoglobin 7.7 g/dL (12.0-16.0); Mean Corpuscular HGB Conc 30 g/dL (31-36); Mean Corpuscular Hemoglobin 22 pg (27-31); Mean Corpuscular Volume 74 fL (80-97); Mean Platelet Volume 8.1 fL (7.4-10.4); Platelet Count 465 10^3/uL (150-450); Red Blood Count 3.42 10^6 /uL (3.70-4.87); Red Cell Distribution Width 28 % (10-15); White Blood Count 16.8 10^3/uL (3.5-10.8)
[2019-07-22 10:30] LABS: Albumin 2.6 g/dL (3.2-5.2); Albumin/Globulin Ratio 0.8 (1-3); BUN/Creatinine Ratio 26.1 (8-20); C Reactive Protein 69.13 mg/L (<8.01); Calcium 8.4 mg/dL (8.6-10.3); EGFR Non-African American 20.6 (>60); Globulin 3.3 g/dL (2-4); Total Bilirubin 0.6 mg/dL (0.2-1.0); Total Protein 5.9 g/dL (6.4-8.9)
[2019-07-22 10:49] LABS: ABS Basophils 0.1 10^3/ul (0-0.2); ABS Eosinophils 0.1 10^3/ul (0-0.6); ABS Monocytes 1.3 10^3/ul (0-0.8); ABS Neutrophils 14.3 10^3/ul (1.5-7.7); Eosinophil % 0.7 %; Lymphocyte % 5.7 %; Nucleated Red Blood Cells % 0.2
[2019-07-22 10:50] LABS: Polychromasia 1+
[2019-07-22] MEDS ORDERED: oxyCODONE/Acetamin 5/325 MG* TAB PO ONE (11:16)
[2019-07-22 11:43] VITALS: BP 135/78
== END 2019-07-22 11:41 | disposition home or self-care (01) ==
LOC: ED 09:02
DX: E11.621 Type 2 diabetes mellitus with foot ulcer (principal); L98.411 Non-pressure chronic ulcer of buttock limited to breakdown of skin; L97.911 Non-pressure chronic ulcer of unspecified part of right lower leg limited to breakdown of skin; M85.871 Other specified disorders of bone density and structure, right ankle and foot; R06.02 Shortness of breath; I11.0 Hypertensive heart disease with heart failure; I50.9 Heart failure, unspecified; J44.9 Chronic obstructive pulmonary disease, unspecified; Z99.81 Dependence on supplemental oxygen; Z86.711 Personal history of pulmonary embolism; Z79.01 Long term (current) use of anticoagulants; Z95.810 Presence of automatic (implantable) cardiac defibrillator; E11.22 Type 2 diabetes mellitus with diabetic chronic kidney disease; I13.0 Hypertensive heart and chronic kidney disease with heart failure and stage 1 through stage 4 chronic kidney disease, or unspecified chronic kidney disease; N18.9 Chronic kidney disease, unspecified; Z95.5 Presence of coronary angioplasty implant and graft; Z95.1 Presence of aortocoronary bypass graft; Z89.512 Acquired absence of left leg below knee; Z88.5 Allergy status to narcotic agent; Z88.0 Allergy status to penicillin; Z88.2 Allergy status to sulfonamides; Z88.8 Allergy status to other drugs, medicaments and biological substances; Z88.1 Allergy status to other antibiotic agents; Z91.030 Bee allergy status; F17.210 Nicotine dependence, cigarettes, uncomplicated
CPT/HCPCS: 36415; 80053; 85025; 86140; 87040; 87077; 87150; 87205; 96374; 99282; A9270-GY; J1642

== ENCOUNTER 2019-07-24 14:49 | Inpatient (IN) | payer MEDICARE, OTHER ==
[2019-07-24] MEDS ORDERED: Vancomycin(*) 1,000 MG in NS 0.9% 250 ML* 250 ML IVPB ONE (16:25)
[2019-07-24] MEDS ORDERED: Cefepime(*) 1 GM in NS 0.9% 50 ML* 50 ML IVPB ONE (16:27)
--- NOTE | 2019-07-24 17:20 | ED ---
Skin Complaint - HPI Summary HPI Summary: Pt is a 59 y/o F presenting to the ED with a chief complaint of multiple worsening wounds. Pt states wound on R side of her R foot is new in the past couple of weeks, and pre-existing wounds have worsened rapidly over the past couple of weeks. She has a BKA of the L leg. She retains fluid very easily, though does not usually ever spike a fever, even with an infection. - History of Current Complaint Chief Complaint: EDExtremityLower Time Seen by Provider: 07/24/19 15:52 Stated Complaint: LEFT LEG INFECTION PER PT Hx Obtained From: Patient Onset/Duration: Started Weeks Ago, Still Present Skin Exposure Onset/Duration: Weeks Ago Timing: Constant, Lasting Weeks Onset Severity: Moderate Current Severity: Severe Pain Intensity: 10 Pain Scale Used: 0-10 Numeric Skin Location: Leg - RLE Character: Pain, Redness Aggravating Symptom(s): Nothing Alleviating Symptom(s): Nothing Associated Signs & Symptoms: Negative - Additional Pertinent History Primary Care Physician: FAREED - Allergy/Home Medications Allergies/Adverse Reactions: Allergies Allergy/AdvReac Type Severity Reaction Status Date / Time bee venom protein (honey bee) Allergy Anaphylatic Verified 05/10/19 15:37 Shock Cephalosporins Allergy Shortness Verified 05/10/19 15:37 of Breath diphenhydramine Allergy Difficulty Verified 05/10/19 15:37 [From Benadryl] Breathing Penicillins Allergy Hives Verified 05/10/19 15:37 Sulfa (Sulfonamide Allergy Hives Verified 05/10/19 15:37 Antibiotics) codeine AdvReac GI Upset Verified 05/10/19 15:37 PMH/Surg Hx/FS Hx/Imm Hx Previously Healthy: No Endocrine/Hematology History: Reports: Hx Anticoagulant Therapy, Hx Blood Transfusions, Hx Diabetes, Hx Thyroid Disease - Goiter, Hx Anemia, Other Endocrine/Hematological Disorders - anemia Denies: Hx Systemic Lupus Erythematosus Cardiovascular History: Reports: Hx Angioplasty, Hx Auto Implanted Cardiovert Defib, Hx Cardiac Arrest, Hx Congestive Heart Failure, Hx Coronary Artery Disease, Hx Hypercholesterolemia, Hx Hypertension, Hx Myocardial Infarction, Hx Pacemaker/ICD, Hx Peripheral Vascular Disease, Hx Valvular Heart Disease, Other Cardiovascular Problems/Disorders - triple bypass in [place], hyperlipidemia, ICD, carotid endarterectomy Denies: Hx Angina Respiratory History: Reports: Hx Asthma, Hx Chronic Bronchitis, Hx Chronic Obstructive Pulmonary Disease (COPD), Hx Pneumonia, Hx Pulmonary Edema, Hx Pulmonary Embolism, Hx Seasonal Allergies, Hx Sleep Apnea, Other Respiratory Problems/Disorders - respiratory failure, uses home oxygen GI History: Reports: Hx Gall Bladder Disease Denies: Hx Ulcer, Other GI Disorders History: Reports: Hx Chronic Renal Failure, Other Problems/Disorders - recent UTI Denies: Hx Dialysis, Hx Renal Disease Musculoskeletal History: Reports: Hx Arthritis, Hx Back Problems, Hx Fibromyalgia, Hx Scoliosis, Other Musculoskeletal History - left below knee amputation, restless leg syndrome, osteomyelitis Denies: Hx Rheumatoid Arthritis, Hx Osteoporosis Sensory History: Reports: Hx Cataracts - no surgery needed yet, Hx Contacts or Glasses, Hx Vision Problem, Hx Hearing Problem - R ear numbness and decreased hearing r/t TIA per pt Denies: Hx Deafness, Hx Hearing Aid Opthamlomology History: Reports: Hx Cataracts - no surgery needed yet, Hx Contacts or Glasses, Hx Vision Problem Neurological History: Reports: Hx Migraine, Hx Nerve Disease - Diabetic Peripheral Neuropathy, Hx Seizures - reports last one 30 yrs ago, Hx Transient Ischemic Attacks (TIA), Other Neuro Impairments/Disorders - peripheral neuropathy Denies: Hx Dementia Psychiatric History: Reports: Hx Anxiety, Hx Depression Denies: Hx Panic Disorder - Cancer History Hx Chemotherapy: No - Surgical History Surgery Procedure, Year, and Place: CARDIAC STENTS(4 PROMUS AND 1 VISIPRO PLACED AT [facility]-1.5T ONLY DUE TO CONDITIONAL STATUS OF [facility]), TRIPLE BYPASS, BILATERAL CAROTID ENDARTERECTOMY ,LAP ADDY,HYSTERECTOMY,LEFT GREAT TOE AMPUTATION,APPY, T&A ,STERNAL WIRES ,LUMBAR SPINE FUSION,CSP FUSION , C SECTION,BACK SURGERY-LASER SURGERY. defib,port, left below knee amputation jul 2017 Hx Anesthesia Reactions: No - Immunization History Date of Tetanus Vaccine: 2016 Date of Influenza Vaccine: 2016 Immunizations Up to Date: Yes Infectious Disease History: No Infectious Disease History: Reports: Hx Clostridium Difficile, Hx of Known/ Suspected MRSA Denies: Hx Hepatitis, Hx Human Immunodeficiency Virus (HIV), Hx Shingles, Hx Tuberculosis, Hx Known/Suspected VRE, Hx Known/Suspected VRSA, History Other Infectious Disease, Traveled Outside the [place] in Last 30 Days - Family History Known Family History: Positive: Unknown - Pt is adopted and does not know her FHx - Social History Alcohol Use: None Hx Substance Use: No Substance Use Type: Reports: None Hx Tobacco Use: Yes Smoking Status (MU): Heavy Every Day Tobacco Smoker Type: Cigarettes Amount Used/How Often: 5 cig/day Length of Time of Smoking/Using Tobacco: 30 years Have You Smoked in the Last Year: Yes Review of Systems Negative: Fever Positive: Other - multiple wounds that are not healing diffusely across RLE. All Other Systems Reviewed And Are Negative: Yes Physical Exam - Summary Physical Exam Summary: Constitutional: Well-developed, Well-nourished, Alert. (-) Distressed Skin: Warm, Dry. There is an ulcer to the lateral aspect of the R heel. Underneath the ulcer, there is diffuse gangrenous tissue. Cellulitis is present in most of the foot. There is darkening of the skin at the base of the fifth toe , also with surrounding cellulitis. There are multiple diffuse ulcerations to the lower middle leg, with a central ulceration with some mild active bleeding and discharge, with diffuse surrounding cellulitis. There are diffuse multiple ulcers on the lower leg surrounded in the bed of cellulitis. There is stage 2 sacral decubitus with granulated tissue. HENT: Normocephalic; Atraumatic Eyes: Conjunctiva normal Neck: Musculoskeletal ROM normal neck. (-) JVD, (-) Stridor, (-) Tracheal deviation Cardio: Rhythm regular, rate normal, Heart sounds normal; Intact distal pulses; The pedal pulses are 2+ and symmetric. Radial pulses are 2+ and symmetric. Pulmonary/Chest wall: Effort normal. (-) Respiratory distress, (-) Wheezes, (-) Rales Abd: Soft, (-) tenderness, (-) Distension, (-) Guarding, (-) Rebound Musculoskeletal: (-) Edema Neuro: Alert, Oriented x3 Psych: Mood and affect Normal Triage Information Reviewed: Yes Vital Signs On Initial Exam: Initial Vitals Temp Pulse Resp BP Pulse Ox 98.4 F 106 20 163/97 100 07/24/19 14:51 07/24/19 14:51 07/24/19 14:51 07/24/19 14:51 07/24/19 14:51 Vital Signs Reviewed: Yes Procedures - Sedation Patient Received Moderate/Deep Sedation with Procedure: No Diagnostics - Vital Signs Vital Signs Temp Pulse Resp BP Pulse Ox 07/24/19 14:51 98.4 F 106 20 163/97 100 - Laboratory Result Diagrams: 07/24/19 17:14 07/24/19 17:14 Lab Statement: Any lab studies that have been ordered have been reviewed, and results considered in the medical decision making process. - EKG 1640 Cardiac Rate: Other Rate - atrial-sensed v-paced rhythm 103bpm Summary of EKG Findings: EKG at 1640 shows atrial-sensed V-paced rhythm at 103bpm. No STEMI. ED physician has reviewed and interpreted this report. Course/Dx - Course Course Of Treatment: Pt is a 59 y/o F presenting to the ED with a chief complaint of multiple worsening wounds. Pt states wound on R side of her R foot is new in the past couple of weeks, and pre-existing wounds have worsened rapidly over the past couple of weeks. She has a BKA of the L leg. She retains fluid very easily, though does not usually ever spike a fever, even with an infection. On exam, there is an ulcer to the lateral aspect of the R heel. Underneath the ulcer, there is diffuse gangrenous tissue. Cellulitis is present in most of the foot. There is darkening of the skin at the base of the fifth toe , also with surrounding cellulitis. There are multiple diffuse ulcerations to the lower middle leg, with a central ulceration with some mild active bleeding and discharge, with diffuse surrounding cellulitis. There are diffuse multiple ulcers on the lower leg surrounded in the bed of cellulitis. There is stage 2 sacral decubitus with granulated tissue. EKG at 1640 shows atrial-sensed V- paced rhythm at 103bpm. No STEMI. 1645 Dr. Marsh will be coming to see the patient. 1714 Dr. Marsh states that the pt needs to be admitted to medicine , orthopedics will consult. She needs to be optimized before surgery but they will likely amputate. - Diagnoses Provider Diagnoses: Ulcer of right lower extremity, Cellulitis of right lower extremity - Physician Notifications Discussed Care Of Patient With: Sam Ortiz Time Discussed With Above Provider: 17:21 Instructed by Provider To: Admit As Inpatient Discharge ED - Sign-Out/Discharge Documenting (check all that apply): Patient Departure - Discharge Plan Condition: Stable Disposition: ADMITTED TO [facility] - Billing Disposition and Condition Condition: STABLE Disposition: Admitted to [facility] - Attestation Statements Document Initiated by Scribe: Yes Documenting Scribe: Nanda Roca Provider For Whom Hanny is Documenting (Include Credential): Joe Bhatti MD. Scribe Attestation: INanda, scribed for Joe Bhatti MD. on 07/24/19 at 1855. Scribe Documentation Reviewed: Yes Provider Attestation: The documentation as recorded by the madisonibeNanda accurately reflects the service I personally performed and the decisions made by me, Joe Bhatti MD. Status of Scribe Document: Viewed Consult Consult: 1645 Dr. Marsh will be coming to see the patient. 1714 Dr. Marsh states that the pt needs to be admitted to medicine, orthopedics will consult. She needs to be optimized before surgery but they will likely amputate. 1721 - I spoke with Dr. Ortiz who will be accepting the pt to [facility].
[2019-07-24] MEDS: Albuterol/Ipratropium NEB.SOL* Albuterol 2.5 MG/Ipratropium 0.5 MG 3 ML INH SCH ×3 (17:24→18:15)
[2019-07-24 17:35] LABS: ABS Basophils 0.1 10^3/ul (0-0.2); ABS Lymphocytes 1.3 10^3/ul (1.0-4.8); ABS Monocytes 1.1 10^3/ul (0-0.8); ABS Neutrophils 21.8 10^3/ul (1.5-7.7); Eosinophil % 0.1 %; Hematocrit 27 % (35-47); Hemoglobin 7.7 g/dL (12.0-16.0); Lymphocyte % 5.3 %; Mean Corpuscular HGB Conc 29 g/dL (31-36); Mean Corpuscular Hemoglobin 22 pg (27-31); Mean Corpuscular Volume 75 fL (80-97); Mean Platelet Volume 8.8 fL (7.4-10.4); Nucleated Red Blood Cells % 0.1; Platelet Count 528 10^3/uL (150-450); Red Blood Count 3.56 10^6 /uL (3.70-4.87); Red Cell Distribution Width 28 % (10-15); White Blood Count 24.4 10^3/uL (3.5-10.8)
[2019-07-24 17:42] LABS: Activated Partial Thrombo Time 35.3 seconds (26.0-38.0); INR 1.31 (0.82-1.09)
[2019-07-24 17:50] LABS: BUN/Creatinine Ratio 23.3 (8-20); Calcium 8.4 mg/dL (8.6-10.3); EGFR African American 25.1 (>60); EGFR Non-African American 20.7 (>60); Magnesium 1.8 mg/dL (1.9-2.7); Potassium 4.4 mmol/L (3.5-5.0)
[2019-07-24] MEDS ORDERED: Acetaminophen TAB* 325 MG PO PRN (18:00)
[2019-07-24] MEDS ORDERED: Albuterol/Ipratropium NEB.SOL* Albuterol 2.5 MG/Ipratropium 0.5 MG 3 ML INH PRN (18:00)
[2019-07-24] MEDS ORDERED: NS 0.9% 50 ML* 50 ML ONE (18:07)
[2019-07-24] MEDS ORDERED: Dextrose 50% VIAL 50 ml IV PUSH PRN (18:10)
[2019-07-24] MEDS ORDERED: Insulin REGULAR(*) 1 UNITS UNIT IV PUSH ONE (18:14)
[2019-07-24] MEDS ORDERED: Furosemide IV* 10 MG/ML 10 ML VIAL (100 MG) IV ONE (18:16)
[2019-07-24] MEDS ORDERED: Magnesium Sulfate 2 GM IV* 2 GM/50 ML BAG IVPB ONE (18:20)
[2019-07-24] MEDS ORDERED: Cefepime 1 GM in Dextrose(*) 1 GM/50 ML q12h (Duplex) IV ONE (18:30)
--- NOTE | 2019-07-24 18:43 | CONS ---
CC: Dr. León * CONSULTATION REPORT: DATE OF CONSULT: 07/24/19 CHIEF COMPLAINT: Right foot pain, swelling. HISTORY OF PRESENT ILLNESS: Briefly, Michelle Galarza is a 59-year-old female with a complicated past medical history. She has a history of a left leg BKA due to infection and nonhealing wound. She states that she has had on the right leg some burning type of pain that has been going on for a few days. It got worse on Wednesday. She presented to the ER and was evaluated, x-rays were obtained and she was sent on antibiotics. She has since had persistent pain. She denies any fevers or chills. She has worsening wounds on her right ankle, posterior aspect of the leg. She has been seen in the wound clinic and was seen last week by Dr. Damon's team. She states that she had a bubble on her right ankle and on the heel as well as posterior aspect of the calf. She has had some wound care. She has had a complicated history with being on hospice and off hospice. She was in a correction for some time in [place] and discharged. She is now present with her home nurse. She is also a patient of Dr. León. She had a recent hospitalization on 04/24/19 for right lower extremity wound. PAST MEDICAL HISTORY: Heart failure, reduced ejection fraction, EF was 35% to 40%; chronic kidney disease stage 4; coronary artery disease, status post CABG; carotid stenosis; peripheral artery disease, multiple stents; gastroparesis; hypertension; hyperlipidemia; COPD; history of CVA; diabetes type 1; peripheral neuropathy; right lower extremity wound; gout. PAST SURGICAL HISTORY: Subclavian stent, cholecystectomy, CABG, lumbar laminectomy, pacemaker, and left lower extremity amp. MEDICATIONS: Current medications include: 1. Vancomycin. 2. Cefepime. 3. Albuterol. 4. Neurontin. 5. Mirapex. ALLERGIES: CEPHALOSPORIN, PENICILLIN, SULFA, CODEINE, BENADRYL, BEE VENOM. FAMILY HISTORY: Unknown. The patient was adopted. SOCIAL HISTORY: The patient is still smoking. Denies drug and alcohol. She used to work in [employer]. She is and has 2 grown children. REVIEW OF SYSTEMS: A 14-point review of systems reviewed with the patient and significant for burning pain. No fevers or chills. Lethargy, right leg wound and pain. No chest pain. She does report some shortness of breath. PHYSICAL EXAM: She is in no acute distress. She is lying in the stretcher. Vital Signs: Temperature of 98.4, pulse of 106, oxygen of 100% on room air, respiratory rate 20, blood pressure 163/97. Her right lower extremity demonstrates posterior based ulceration with necrosis that appears to be 7 cm x 4 cm. She also has skin sloughing and an obvious necrotic ulceration of the plantar aspect of the heel as well as laterally based. She has some toe necrosis as well. She is densely neuropathic. She has 1+ PT pulse. Her calf is soft and nontender. LABORATORY DATA: Labs were pending. ASSESSMENT AND PLAN: She has necrotic ulceration of the posterior aspect of the calf as well as her heel. At this point, she has superficial cellulitis. She has been on and off hospice for some time. I did discuss the case with Dr. Hess, who is very well aware of her. I would recommend that she be admitted to the medicine team and be worked up. She may be a candidate for an amputation , but this is depending on the patient's hospice status as well as how she responds. She verbalized understanding. We will continue to follow the patient. [id number]/[facility] #: [id number] ABNER
[2019-07-24] MEDS: fentaNYL PATCH 25 MCG/HR TRANSDERM SCH (18:56)
[2019-07-24] MEDS ORDERED: Vancomycin(*) 1,000 MG in NS 0.9% 250 ML* 250 ML IVPB SCH (19:00)
[2019-07-24] MEDS ORDERED: Vancomycin per Pharmacy* NOTE FOLLOW UP SCH (19:00)
[2019-07-24] MEDS: Gabapentin CAP(*) 400 MG PO SCH (21:05)
[2019-07-24] MEDS: Torsemide TAB* 100 MG PO SCH (21:07)
[2019-07-24] MEDS: Carvedilol TAB* 3.125 MG PO SCH (21:07)
[2019-07-24] MEDS: Pramipexole TAB* 0.5 MG PO SCH (21:07)
[2019-07-24] MEDS: Polyethylene Glycol 3350* 17 GM PACKET PO SCH (21:08)
[2019-07-24] MEDS: Melatonin 3 MG TAB PO SCH (21:20)
[2019-07-24] MEDS: Insulin GLARGINE(*) 1 UNITS UNIT SUBCUT SCH (21:23)
--- NOTE | 2019-07-24 21:37 | HP ---
CC: Dr. Matilde León; Dr. Tom Hess * HISTORY AND PHYSICAL: DATE OF ADMISSION: 07/24/19 PROVIDER: Nell Boyce NP PRIMARY CARE PROVIDER: Dr. Matilde León. ATTENDING PHYSICIAN: Dr. Charla Anna * (DICTATED BY NELL BOYCE NP) CHIEF COMPLAINT: Worsening lower extremity wounds. HISTORY OF PRESENT ILLNESS: Ms. Galarza is an unfortunate 59-year-old female with past medical history of type 1 diabetes, congestive heart failure, stage 4 chronic kidney disease, coronary artery disease, peripheral vascular disease, CVA, COPD, hypertension, and peripheral neuropathy, who presents to [facility] today because of worsening wounds on the right lower extremity. The patient is status post left [id number] amputation on her right lower extremity. She has had a wound on her lateral calf that has been present for a number months. This has grown in size according to the patient's home-health aide. Additionally, the patient noticed a new wound on her lateral foot, which has gotten significantly worse over the last couple weeks. Reportedly, it started as a blister and grew quite quickly. The patient was seen in the emergency room here 2 days ago and at that point refused admission. She was sent home with prescription for doxycycline and Levaquin. She presents again today and is agreeable to admission to the hospital. At this point, she reports 10/10 pain in the right lower extremity, which is managed to some degree with morphine , though not to extent that she would like. She denies any chest pain or shortness of breath, fevers, nausea, vomiting or abdominal pain. She does report some shortness of breath that is related to fluid overload. She does adjust her diuretic dosing at home based on her level of edema, but at this point, she notes that she was not able to control the edema at home and so she knew she needed to come into the emergency room. In the emergency room, the patient was noted to have a leukocytosis with a white blood count of 24. She was noted to be anemic with an H/H of 7.7 and 27, which does appear to be consistent with her baseline. Arterial blood gas was normal. She was noted to have a glucose of 602. She was seen in the emergency room by Dr. Hess, who did advice that the patient would likely need an amputation of the right lower extremity and so the hospitalist service was asked to evaluate for admission. PAST MEDICAL HISTORY: 1. Diabetes mellitus, type 1. 2. Chronic systolic congestive heart failure, EF 35% to 40%. 3. Chronic kidney disease, stage 4. 4. Coronary artery disease. 5. Peripheral arterial disease. 6. Hypertension. 7. Gastroparesis. 8. Hyperlipidemia. 9. Chronic obstructive pulmonary disease. 10. CVA. 11. Peripheral neuropathy. 12. Carotid stenosis, status post stenting. PAST SURGICAL HISTORY: 1. Subclavian stent. 2. Cholecystectomy. 3. CABG. 4. Lumbar laminectomy. 5. Pacemaker placement. 6. Implanted port placement. 7. Left lower extremity [id number] amputation. HOME MEDICATIONS: 1. Acetaminophen 650 mg p.o. q.6 hours p.r.n. fever, pain. 2. Aspirin 81 mg p.o. daily. 3. Atorvastatin 20 mg p.o. daily. 4. Carvedilol 3.125 mg p.o. b.i.d. 5. Vitamin B12 1000 mcg p.o. daily. 6. Doxycycline 100 mg p.o. b.i.d. 7. Fentanyl patch 25 mcg q.72 hours. 8. Gabapentin 1200 mg p.o. at bedtime. 9. Lispro subcu sliding scale a.c., h.s. 10. Ipratropium/albuterol 1 neb q.4 hours p.r.n. shortness of breath. 11. Levaquin 500 mg p.o. q.48 hours. 12. Melatonin 3 mg p.o. at bedtime. 13. Metolazone 10 mg p.o. daily. 14. Dulera 100/5 two puffs daily. 15. Morphine oral concentrate 5 mg sublingual q.2 hours p.r.n. pain or air hunger. 16. Nitroglycerin 0.4 mg sublingual q.5 hours p.r.n. chest pain. 17. MiraLAX 17 g p.o. b.i.d. 18. Mirapex 0.5 mg p.o. at bedtime. 19. Compazine 10 mg p.o. q.6 hours p.r.n. nausea, vomiting. 20. Sertraline 50 mg p.o. daily. 21. Spiriva 1 cap inhalation daily. 22. Torsemide 100 mg p.o. b.i.d. ALLERGIES: CEPHALOSPORIN, PENICILLIN, SULFA, BENADRYL, and CODEINE. FAMILY HISTORY: Unknown as the patient is adopted. SOCIAL HISTORY: The patient reports smoking "less than half a pack per day." She denies any alcohol or recreational drug use. She lives at home with her , Genaro. Her and her home-health aide, Steve will be her surrogate decision makers in the event she is unable to make her own decisions. REVIEW OF SYSTEMS: An 11-point review of systems was performed and all the pertinent positive and negative findings are in the HPI. All other systems are negative. PHYSICAL EXAMINATION GENERAL: Ms. Galarza is a well-developed, well-nourished, middle aged white woman lying in bed, in no acute distress. She appears older than her stated age. VITAL SIGNS: Temp 98.4, heart rate 96, respiratory rate 18, oxygen saturation 97% on 10 L, blood pressure 163/97. HEENT: Head is atraumatic, normocephalic. Visual baumann are grossly intact. Pupils are equal, round, and reactive to light and accommodation. Extraocular movements intact. Oral mucous membranes are dry. NECK: Thyroid not palpable. Trachea midline. No lymphadenopathy. RESPIRATORY: Symmetrical chest expansion. Lungs are clear to auscultation throughout. No rhonchi, wheezes, or rubs. CARDIOVASCULAR: Regular rate and rhythm. S1, S2 present. No murmurs, rubs, or gallops. No JVD. EXTREMITIES: Skin warm and smooth to bilateral upper extremities and the right lower extremity. There is +2 pitting edema. Right pedal pulse 1+. ABDOMEN: Soft, diffusely tender to palpation. Bowel sounds are normoactive. NEURO: Awake, alert, and oriented x4. Cranial nerves II through XII grossly intact. Moves all extremities. SKIN: There are many small abrasions, mostly on the patient torso. She does have a decubitus ulcer, stage 2, which measures approximately 2 x 3 cm. There is a wound to the right lateral lower extremity, which measures approximately 10 x 4 cm. There is a wound to the right lateral foot, which measures approximately 7 x 8 cm. DIAGNOSTIC STUDIES/LAB DATA: WBC 24.4, RBC 3.56, hemoglobin 7.7, hematocrit 27 , platelets 528. INR 1.31. Sodium 121, potassium 4.4, chloride 87, carbon dioxide 24. BUN 56, creatinine 2.4. Glucose 602. Lactic acid 1.9. Magnesium 1.8. EKG shows sinus tachycardia with a rate of 103 with intermittent pacing. This EKG appears consistent with prior EKG from April 2019. ASSESSMENT AND PLAN: Ms. Galarza is a 59-year-old female with past medical history of type 1 diabetes, chronic systolic heart failure, chronic kidney disease stage 2, CAD, PAD, hypertension, gastroparesis, hyperlipidemia, COPD, CVA, and peripheral neuropathy, who presents to the emergency room today because of concern for worsening right lower extremity wounds and was found to be meeting sepsis criteria due to wound infections. The patient will be admitted inpatient for: 1. Infected right lower extremity wounds. The patient is well known by Dr. Hess and he has been quite maribel with her that going forward, treatment will consist of IV antibiotic and a right below the knee amputation. The patient is agreeable to this at this point. She did receive vancomycin and cefepime in the emergency room. At this point, I will continue her on vancomycin and levofloxacin. The patient will have a wound care consult tomorrow and I will consult infectious disease tomorrow as well. As far as medically optimizing the patient for surgery, she will certainly be a very high risk for any surgery due to her comorbidities. According to the Revised Cardiac Risk Index the patient scores a 5, giving her a 15%, 30-day risk of , ND or cardiac arrest. As far as medically optimizing her, I will check a chest x-ray as she is requiring oxygen at this point. We will also get her glucose under control as it is significantly elevated at this time. I do not think she needs another echo. She just had an echo in April, but I will readdress her medical optimization tomorrow pending the chest x-ray and blood glucose. 2. Sepsis. The patient is meeting sepsis criteria with tachycardia and leukocytosis. This is secondary to her infected right lower extremity wound. Blood cultures have been drawn. The patient does not require any fluid boluses at this point as blood pressure is elevated and she is fluid overloaded. I will additionally check a chest x-ray and antibiotics will be continued as noted above. 3. Diabetes. The patient had hemoglobin A1c last month of 11.2%. Glucose today in the emergency room is 602. She has gotten 1 dose of 10 units of regular insulin IV. I will place her on Lantus and lispro sliding scale going forward. Again, we will try to get her glucose under reasonable control in order to medically optimize her for surgery. 4. Chronic systolic heart failure. Again, the patient had an echo in April, which showed an ejection fraction of 35% to 40%, severe diffuse hypokinesis. At this point, the patient does appear to be slightly volume overloaded with evidence of +2 pitting, though I do not have any significant concerns about her cardiac status at this point, which I think is relatively stable. I will continue her on her carvedilol, torsemide and metolazone. 5. Chronic kidney disease, stage 4. The patient's creatinine is at baseline. Again, she is likely mildly fluid volume overloaded, so I will give her a 1 time dose of 60 mg of IV Lasix and readdress her fluid status tomorrow. 6. Coronary artery disease. Again, I do not have any acute cardiac concerns. Continue atorvastatin and carvedilol. I will hold her aspirin at this point for surgery. 7. Peripheral arterial disease. Obviously, the patient has advanced peripheral arterial disease as she is not requiring a second exlij-qgp-[id number] amputation. There is nothing more to do in the acute phase. 8. Hypertension. The patient is hypertensive in the emergency room. I am giving her an extra dose of furosemide, which I think will help bring the blood pressure down. I will also continue her carvedilol. 9. Chronic obstructive pulmonary disease. The patient report feeling slightly shortness of breath, though notes that she does feel this way when she becomes fluid overloaded. She is requiring oxygen in the emergency room, but at this point, it is 97% on 10 L, so I certainly do not think she needs 10 L. I will check a chest x-ray to ensure there is no pneumonia and we will try to optimize her respiratory status prior to surgery. Continue Dulera and Spiriva. I will also add DuoNeb. 10. Peripheral neuropathy. Continue gabapentin and fentanyl patch. 11. FEN. The patient does not require any fluid resuscitation. I will give her 2 g of mag sulfate for some mild hypomagnesemia and I will recheck a BMP in the morning. I have ordered a heart healthy diet. 12. Code status. The patient does wish to remain a DNR/DNI. There is a MOLST on file from her previous hospitalization which I will update. 13. DVT prophylaxis. According to the DVT Risk Assessment, the patient scores a 4, putting her at moderate risk. I have ordered subcu heparin. TIME SPENT: Approximately 75 minutes was spent on this admission; greater than half of that time spent face to face with the patient and her caregiver, obtaining my history, performing my physical exam, and reviewing the plan of care. This case has been reviewed with my attending, Dr. Anna, who is in agreement with the plan of care. NELL BOYCE, BUSINESS TEACHER [id number]/[facility] #: [id number] ABNER
[2019-07-24] MEDS: Insulin LISPRO* 1 UNITS UNIT SUBCUT SCH (21:43)
[2019-07-24] MEDS: Heparin VIAL(*) 5000 UNITS/ML VIAL (FIVE THOUSAND) SUBCUT SCH (21:43)
[2019-07-24] MEDS: Levofloxacin 500 MG IVPREMIX(* 500 MG/100 ML BAG IVPB SCH (22:08)
[2019-07-24] MEDS: Morphine INJ* 2 MG/ML 1 ML SYRINGE (TWO MG - NEW SYRINGE VERSION) IV PRN (23:39)
[2019-07-24] MEDS ORDERED: Temazepam CAP* 15 MG PO PRN (23:46)
[2019-07-25] MEDS: Morphine INJ* 2 MG/ML 1 ML SYRINGE (TWO MG - NEW SYRINGE VERSION) IV PRN (05:29)
[2019-07-25] MEDS: Heparin VIAL(*) 5000 UNITS/ML VIAL (FIVE THOUSAND) SUBCUT SCH ×3 (05:35→22:16)
[2019-07-25 06:04] LABS: BUN/Creatinine Ratio 23.8 (8-20); Calcium 8.4 mg/dL (8.6-10.3); EGFR African American 25.1 (>60); EGFR Non-African American 20.7 (>60)
[2019-07-25 06:48] LABS: ABS Basophils 0.1 10^3/ul (0-0.2); ABS Eosinophils 0.2 10^3/ul (0-0.6); ABS Lymphocytes 1.3 10^3/ul (1.0-4.8); ABS Monocytes 1.3 10^3/ul (0-0.8); ABS Neutrophils 11.8 10^3/ul (1.5-7.7); ABS Nucleated RBC 0.1 10^3/ul; Eosinophil % 1.5 %; Hematocrit 24 % (35-47); Hemoglobin 7.2 g/dL (12.0-16.0); Lymphocyte % 8.8 %; Mean Corpuscular HGB Conc 30 g/dL (31-36); Mean Corpuscular Hemoglobin 22 pg (27-31); Mean Corpuscular Volume 74 fL (80-97); Nucleated Red Blood Cells % 0.5; Platelet Count 424 10^3/uL (150-450); Red Blood Count 3.27 10^6 /uL (3.70-4.87); Red Cell Distribution Width 28 % (10-15); White Blood Count 14.7 10^3/uL (3.5-10.8)
[2019-07-25] MEDS: fentaNYL Patch Check Q Shift 1 NOTE FOLLOW UP SCH ×2 (07:09→19:19)
[2019-07-25] MEDS: SPIRIVA Respimat* (tiotropium) 2.5 mcg/inh Inhaler INH SCH (08:57)
[2019-07-25] MEDS: Mometasone/Formoter 100/5 MDI INH SCH (08:57)
[2019-07-25] MEDS: Carvedilol TAB* 3.125 MG PO SCH ×2 (09:44→22:58)
[2019-07-25] MEDS: Insulin LISPRO* 1 UNITS UNIT SUBCUT SCH ×4 (09:44→22:15)
[2019-07-25] MEDS: Atorvastatin* 20 MG TAB PO SCH (09:44)
[2019-07-25] MEDS: Torsemide TAB* 100 MG PO SCH ×2 (09:44→22:58)
[2019-07-25] MEDS: Sertraline* 50 MG TAB PO SCH (09:44)
[2019-07-25] MEDS: Polyethylene Glycol 3350* 17 GM PACKET PO SCH ×2 (09:45→22:59)
[2019-07-25] MEDS: Metolazone TAB* 5 MG PO SCH (11:47)
[2019-07-25 11:50] LABS: Urine Appearance Cloudy; Urine Bacteria 1+ (Absent); Urine Bilirubin Negative (Negative); Urine Blood 1+ (Negative); Urine Color Yellow; Urine Glucose 2+(150 mg/dL) (Negative); Urine Ketones Negative (Negative); Urine Nitrite Negative (Negative); Urine Protein 3+(>=500 mg/dL) (Negative); Urine Red Blood Cell 3+(>10/hpf) (Absent); Urine Specific Gravity 1.014 (1.010-1.030); Urine Squamous Epithelial Cell Present (Absent); Urine Urobilinogen Negative (Negative); Urine White Blood Cell 3+(>20/hpf) (Absent)
--- NOTE | 2019-07-25 12:02 | PN ---
Subjective Date of Service: 07/25/19 Interval History: Ms. Galarza is feeling moderately well this morning. She continues to have 8/10 RLE pain. This was relieved with morphine overnight and she slept well. Denies CP, SOB, N/V. 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 She does not want to pursue hospice at this time because she does not believe she is dying. She thinks her pacemaker is not MRI compatible. No concerns from nursing. Family History: Unchanged from Admission Social History: Unchanged from Admission Past Medical History: Unchanged from Admission Objective Active Medications: Acetaminophen (Tylenol Tab*) 650 mg PO Q4H PRN MILD PAIN or TEMP > 100.4 Albuterol/Ipratropium (Duoneb (Albuterol 2.5 Mg/Ipratropium 0.5 Mg)) 1 neb INH RT.[id number] AWAKE PRN sob/wheexing Atorvastatin Calcium (Lipitor*) 20 mg PO DAILY [place] Carvedilol (Coreg Tab*) 3.125 mg PO BID [place] Dextrose (Dextrose 50% Vial 50 Ml*) 25 ml IV PUSH .FOR FS < 60 - SS PRN FS < 60 Fentanyl (Duragesic Patch 25 Mcg/Hr*) 25 mcg TRANSDERM Q72H [place] Gabapentin (Neurontin Cap(*)) 1,200 mg PO BEDTIME [place] Heparin Sodium (Porcine) (Heparin Vial(*)) 5,000 units SUBCUT Q8HR [place] Heparin Sodium (Porcine) (Heparin Flush Port (Ivad)) 5 ml FLUSH DAILY [place]; Protocol Levofloxacin/Dextrose (Levaquin 500 Mg Ivpremix(*)) 500 mg in 100 mls @ 100 mls /hr IVPB Q48H [place]; Protocol Insulin Glargine (Lantus(*)) 10 units SUBCUT Q24H [place] Insulin Human Lispro (Humalog*) 0 units SUBCUT ACHS [place]; Protocol Melatonin (Melatonin) 3 mg PO BEDTIME [place] Metolazone (Zaroxolyn Tab*) 10 mg PO DAILY@0830 [facility] Mometasone Furoate/Formoterol Fumar (Dulera 100/5 Mdi*) 2 puff INH DAILY [facility] Morphine Sulfate (Morphine Inj (Syringe))*) 2 mg IV Q4H PRN PAIN - SEVERE Ondansetron HCl (Zofran Inj*) 4 mg IV Q4H PRN NAUSEA/VOMITING Oxycodone/Acetaminophen (Percocet 5/325 Tab*) 1 tab PO Q4H PRN PAIN - MODERATE Polyethylene Glycol/Electrolytes (Miralax*) 17 gm PO BID [place] Pramipexole Dihydrochloride (Mirapex Tab*) 0.5 mg PO BEDTIME [place] Prochlorperazine (Compazine Tab*) 10 mg PO Q6H PRN NAUSEA Sertraline HCl (Zoloft*) 50 mg PO DAILY [place] Temazepam (Restoril Cap*) 15 mg PO BEDTIME PRN INSOMNIA Tiotropium [place] (Spiriva Respimat 2.5 Mcg) 2 puff INH DAILY [place] Torsemide (Demadex*) 100 mg PO BID [place] Vital Signs - 8 hr 07/25/19 07/25/19 07/25/19 05:29 06:31 07:47 Temperature 97.7 F Pulse Rate 72 Respiratory 16 16 17 Rate Blood Pressure 115/60 (mmHg) O2 Sat by Pulse 100 Oximetry Oxygen Devices in Use Now: Nasal Cannula - 2L Appearance: Middle-aged female laying in bed in NAD Ears/Nose/Mouth/Throat: Mucous Membranes Moist Neck: NL Appearance and Movements; NL JVP, Trachea Midline Respiratory: Symmetrical Chest Expansion and Respiratory Effort, Clear to Auscultation Cardiovascular: NL Sounds; No Murmurs; No JVD Abdominal: NL Sounds; No Tenderness; No Distention Skin: - - Multiple wounds RLE Neurological: Alert and Oriented x 3 Nutrition: Taking PO's Result Diagrams: 07/25/19 05:30 07/25/19 05:30 Assess/Plan/Problems-Billing Assessment: Ms. Galarza is a 59 yo F with PMH of DM1, systolic CHF, CKD stage 4, CAD, PVD, HTN, COPD, CVA, peripheral neuropathy, chronic Mckeon; who presented to the ED with c/o worsening RLE wounds and was found to be septic secondary to wound infections. - Patient Problems (1) Diabetic foot infection Code(s): E11.69 - TYPE 2 DIABETES MELLITUS WITH OTHER SPECIFIED COMPLICATION; L08.9 - LOCAL INFECTION OF THE SKIN AND SUBCUTANEOUS TISSUE, UNSP Comment: - Large wounds to lateral right foot and lateral right calf, both appear infected - Wound care consult - Appreciate Ortho consult; recommending R BKA - Appreciate ID consult - At this point patient is requesting to hold off on surgery and attempt treatment with IV abx alone, though this is unlikely to be successful as there is suspected to be little circulation to the RLE - Continue Alonzo lindquist (2) Sepsis Comment: - Met criteria on admission with leukocytosis and tachycardia; source is LE wound - BC negative to date - Plan as above (3) Diabetes Code(s): E11.9 - TYPE 2 DIABETES MELLITUS WITHOUT COMPLICATIONS Comment: - Hyperglycemic on admission with glucose >600 - A1c in June 11.2% - Continue Lispro SS; increase Lantus (4) Anemia Code(s): D64.9 - ANEMIA, UNSPECIFIED Comment: - AIDEE and AOCD - H&H slightly decreased from baseline - Iron studies from April showing iron deficiency, but it appears as though the patient is not taking daily iron - Recommend transfusion, but patient is Confucianist and refusing transfusion - Start ferrous sulfate; iron sucrose x1 today (5) Chronic systolic congestive heart failure Code(s): I50.22 - CHRONIC SYSTOLIC (CONGESTIVE) HEART FAILURE Comment: - Slightly fluid overloaded on admission, now euvolemic - Echo in April showed EF 35-40% with severe diffuse hypokinesis - Very diuretic-resistant - Continue torsemide, metolazone, carvedilol (6) COPD (chronic obstructive pulmonary disease) Code(s): J44.9 - CHRONIC OBSTRUCTIVE PULMONARY DISEASE, UNSPECIFIED Comment: - Not in exacerbation - Continue Dulera, Spiriva (7) CKD (chronic kidney disease) stage 4, GFR 15-29 ml/min Code(s): N18.4 - CHRONIC KIDNEY DISEASE, STAGE 4 (SEVERE) Comment: - Creatinine at baseline - Renally dosed medications and abx (8) HTN (hypertension) Code(s): I10 - ESSENTIAL (PRIMARY) HYPERTENSION Comment: - Normotensive - Continue carvedilol (9) CAD (coronary artery disease) Code(s): I25.10 - ATHSCL HEART DISEASE OF [place] CORONARY ARTERY W/O ANG PCTRS Comment: - Aspirin held for possible surgery - Continue carvedilol, atorvastatin (10) DVT prophylaxis Comment: - Heparin SQ (11) DNR (do not resuscitate) Comment: Status and Disposition: Inpatient. Anticipated surgery, date unknown. Would benefit from PMRU admission at d/c if possible. Attending: Bernard Bonilla
[2019-07-25] MEDS ORDERED: Vancomycin(*) 1,000 MG in NS 0.9% 250 ML* 250 ML IVPB ONE (14:00)
[2019-07-25] MEDS: Ondansetron INJ* 2 MG/ML VIAL IV PRN ×3 (14:22→23:15)
--- NOTE | 2019-07-25 14:36 | PN ---
Progress Note - Progress Note Date of Service: 07/25/19 SOAP: Subjective: Right leg infection. Pt states that she is still feeling ill. Denies CP/SOB, f/ c. + n/v Objective: Vital Signs: Temp Pulse Resp BP Pulse Ox 97.8 F 72 18 123/65 97 07/25/19 11:55 07/25/19 11:55 07/25/19 11:55 07/25/19 11:55 07/25/19 11:55 Gen: A&Ox3, appears uncomfortable at rest RLE: Heel wound and lateral leg wound dry, moderate edema and erythema to lower leg. +f/e at ankle and MTPs, sensation decreased due to neuropathy Labs: Laboratory Results - last 24 hr 07/24/19 07/24/19 07/24/19 17:13 17:14 17:14 WBC 24.4 H RBC 3.56 L Hgb 7.7 L Hct 27 L MCV 75 L MCH 22 L MCHC 29 L RDW 28 H Plt Count 528 H D MPV 8.8 Neut % (Auto) 89.5 Lymph % (Auto) 5.3 Door % (Auto) 4.7 Eos % (Auto) 0.1 Baso % (Auto) 0.4 Absolute Neuts (auto) 21.8 H Absolute Lymphs (auto) 1.3 Absolute Monos (auto) 1.1 H Absolute Eos (auto) 0.0 Absolute Basos (auto) 0.1 Absolute Nucleated RBC 0.0 Nucleated RBC % 0.1 INR (Anticoag Therapy) 1.31 H APTT 35.3 VBG pH 7.33 VBG pCO2 45 VBG pO2 44.0 VBG HCO3 22.3 L VBG O2 Saturation 72.8 VBG Base Excess -2.4 L Sodium Potassium Chloride Carbon Dioxide Anion Gap BUN Creatinine Est GFR ( Amer) Est GFR (Non-Af Amer) BUN/Creatinine Ratio Glucose POC Glucose (mg/dL) Lactic Acid Calcium Magnesium Urine Color Urine Appearance Urine pH Ur Specific [place] Urine Protein Urine Ketones Urine Blood Urine Nitrate Urine Bilirubin Urine Urobilinogen Ur Leukocyte Esterase Urine WBC (Auto) Urine RBC (Auto) Ur Squamous Epith Cells Urine Bacteria Urine Yeast Urine Glucose Random Vancomycin 07/24/19 07/24/19 07/24/19 17:14 17:14 19:14 WBC RBC Hgb Hct MCV MCH MCHC RDW Plt Count MPV Neut % (Auto) Lymph % (Auto) Door % (Auto) Eos % (Auto) Baso % (Auto) Absolute Neuts (auto) Absolute Lymphs (auto) Absolute Monos (auto) Absolute Eos (auto) Absolute Basos (auto) Absolute Nucleated RBC Nucleated RBC % INR (Anticoag Therapy) APTT VBG pH VBG pCO2 VBG pO2 VBG HCO3 VBG O2 Saturation VBG Base Excess Sodium 121 L Potassium 4.4 Chloride 87 L Carbon Dioxide 24 Anion Gap 10 BUN 56 H Creatinine 2.40 H Est GFR ( Amer) 25.1 Est GFR (Non-Af Amer) 20.7 BUN/Creatinine Ratio 23.3 H Glucose 602 H* POC Glucose (mg/dL) > 444 H* Lactic Acid 1.9 Calcium 8.4 L Magnesium 1.8 L Urine Color Urine Appearance Urine pH Ur Specific [place] Urine Protein Urine Ketones Urine Blood Urine Nitrate Urine Bilirubin Urine Urobilinogen Ur Leukocyte Esterase Urine WBC (Auto) Urine RBC (Auto) Ur Squamous Epith Cells Urine Bacteria Urine Yeast Urine Glucose Random Vancomycin 07/24/19 07/25/19 07/25/19 21:20 05:30 05:30 WBC RBC Hgb Hct MCV MCH MCHC RDW Plt Count MPV Neut % (Auto) Lymph % (Auto) Door % (Auto) Eos % (Auto) Baso % (Auto) Absolute Neuts (auto) Absolute Lymphs (auto) Absolute Monos (auto) Absolute Eos (auto) Absolute Basos (auto) Absolute Nucleated RBC Nucleated RBC % INR (Anticoag Therapy) APTT VBG pH VBG pCO2 VBG pO2 VBG HCO3 VBG O2 Saturation VBG Base Excess Sodium 126 L Potassium 4.0 Chloride 92 L Carbon Dioxide 27 Anion Gap 7 BUN 57 H Creatinine 2.40 H Est GFR ( Amer) 25.1 Est GFR (Non-Af Amer) 20.7 BUN/Creatinine Ratio 23.8 H Glucose 161 H POC Glucose (mg/dL) 363 H Lactic Acid Calcium 8.4 L Magnesium Urine Color Urine Appearance Urine pH Ur Specific [place] Urine Protein Urine Ketones Urine Blood Urine Nitrate Urine Bilirubin Urine Urobilinogen Ur Leukocyte Esterase Urine WBC (Auto) Urine RBC (Auto) Ur Squamous Epith Cells Urine Bacteria Urine Yeast Urine Glucose Random Vancomycin 17.9 07/25/19 07/25/19 07/25/19 05:30 07:37 10:13 WBC 14.7 H RBC 3.27 L Hgb 7.2 L Hct 24 L MCV 74 L MCH 22 L MCHC 30 L RDW 28 H Plt Count 424 MPV 8.0 Neut % (Auto) 80.4 Lymph % (Auto) 8.8 Door % (Auto) 8.6 Eos % (Auto) 1.5 Baso % (Auto) 0.7 Absolute Neuts (auto) 11.8 H Absolute Lymphs (auto) 1.3 Absolute Monos (auto) 1.3 H Absolute Eos (auto) 0.2 Absolute Basos (auto) 0.1 Absolute Nucleated RBC 0.1 Nucleated RBC % 0.5 INR (Anticoag Therapy) APTT VBG pH VBG pCO2 VBG pO2 VBG HCO3 VBG O2 Saturation VBG Base Excess Sodium Potassium Chloride Carbon Dioxide Anion Gap BUN Creatinine Est GFR ( Amer) Est GFR (Non-Af Amer) BUN/Creatinine Ratio Glucose POC Glucose (mg/dL) 175 H Lactic Acid Calcium Magnesium Urine Color Yellow Urine Appearance Cloudy Urine pH 5.0 Ur Specific [place] 1.014 Urine Protein 3+(>=500 mg/dl) A Urine Ketones Negative Urine Blood 1+ A Urine Nitrate Negative Urine Bilirubin Negative Urine Urobilinogen Negative Ur Leukocyte Esterase Trace A Urine WBC (Auto) 3+(>20/hpf) A Urine RBC (Auto) 3+(>10/hpf) A Ur Squamous Epith Cells Present A Urine Bacteria 1+ A Urine Yeast Present A Urine Glucose 2+(150 mg/dl) A Random Vancomycin Assessment: Right leg infection Plan: Pt requesting to try IV antibiotics and wound care Cont dry dressing to legs Will continue to follow
[2019-07-25] MEDS ORDERED: Iron Sucrose* 200 MG in NS 0.9% 100 ML* 100 ML IVPB ONE (17:00)
--- NOTE | 2019-07-25 17:01 | CONS ---
CONSULTATION REPORT: DATE OF CONSULT: 07/25/19 REQUESTING PROVIDER: Nell Boyce NP CONSULTING SERVICE: Infectious Disease. REASON FOR CONSULT: Right leg infection. IMPRESSION: 1. Type 1 diabetic with neuropathy and vascular disease with chronic ulcers of the right lower extremity, now with diffuse cellulitis, possible underlying abscess, myositis. Blood cultures taken from an ER visit on 07/22/19 are no growth. She apparently cannot have an MRI because the type of pacemaker she has. 2. Hyperglycemia in the setting of infection without acidosis. 3. Chronic systolic congestive heart failure, ejection fraction 35% to 40%. 4. Stage 4 chronic kidney disease. 5. Port for vascular access. 6. Status post left leg [id number] amputation. 7. Allergies to CEPHALOSPORIN, PENICILLIN, and SULFA. RECOMMENDATIONS: Agree with vancomycin, goal trough 10 to 15 and Levaquin dosed for GFR less than 20. She is unable to have an MRI right now. We will consider a CT scan to look for abscess and the plan has been consideration of amputation if she is not making progress. HISTORY OF PRESENT ILLNESS: This is a 59-year-old woman with diabetes, neuropathy, vascular disease, admitted with right leg pain and swelling, malaise , was found to have hyperglycemia with blood sugar of 600 yesterday in the ER. She had been in the ER a couple days before, blood cultures taken then are no growth. She has had a wound on the right leg on the lateral right foot and the lateral right heel. Because of the pain, she is asked to avoid removing the bandage at this time. Prior report suggested cellulitis associated with some gangrenous tissue under the lateral right heel ulcer and medial leg ulcerations. Her white count on admission was 24,000, this morning it was down 14,000. She has had no fevers here. She has no abdominal pain, but is nauseous and vomiting even with antiemetics. PAST MEDICAL HISTORY: 1. Type 1 diabetes with peripheral neuropathy. 2. Peripheral vascular disease. 3. Status post left [id number] amputation. 4. Chronic systolic heart failure, ejection fraction 35% to 40%. 5. Stage 4 chronic kidney disease. 6. Coronary artery disease, status post CABG. 7. Hypertension. 8. Gastroparesis. 9. Hyperlipidemia. 10. COPD. 11. History of stroke. 12. Status post carotid stenting. 13. Status post subclavian stent. 14. Status post cholecystectomy. 15. Status post lumbar laminectomy. 16. Status post pacemaker placement. 17. Status post port placement. ALLERGIES: CEPHALOSPORIN, PENICILLIN, SULFA, BENADRYL, CODEINE. MEDICATIONS: 1. Tylenol. 2. Albuterol. 3. Lipitor. 4. Coreg. 5. Cefepime was given in the ER. 6. Fentanyl patch. 7. Lasix once. 8. Gabapentin. 9. Heparin subcutaneous injection. 10. Insulin glargine. 11. Insulin regular. 12. Levaquin 500 mg IV every 48 hours. 13. Melatonin at bedtime. 14. Metolazone. 15. Morphine. 16. Zofran. 17. Oxycodone as needed. 18. Polyethylene glycol twice a day. 19. Mirapex. 20. Prochlorperazine. 21. Sertraline. 22. Temazepam at bedtime. 23. Spiriva. 24. Torsemide twice a day. 25. Vancomycin, last dose given this afternoon 1 g. SOCIAL HISTORY: She lives in [place]. She is a smoker. No alcohol or injection drugs. Lives with her . FAMILY HISTORY: The patient is adopted and she does not know it. REVIEW OF SYSTEMS: All negative except as noted above to a 12-point review of systems. PHYSICAL EXAM: Vital Signs: Temperature 36.6, heart rate 80, respiratory rate 18, blood pressure 132/58, oxygen saturation 97% on room air. In general, she is awake, appears ill, not in distress. Neurologic: She is oriented x3. Follows all commands. HEENT: There is no conjunctival hemorrhage. Oropharynx without lesions. Neck: Supple without mass. Heart is regular rate and rhythm without murmurs, rubs, or gallops. Lungs are clear to auscultation bilaterally. Abdomen: Soft, nontender, nondistended. There are bowel sounds present. Skin: There is no rash or splinter hemorrhage. Musculoskeletal: There is no spine tenderness to palpation. There is 2+ lower extremity edema on the right leg with right medial anterior leg ulceration. I left a bandage on the foot at her request. There is diffuse tenderness to palpation through the lower leg, not the upper leg or knee and there is no knee effusion. LABORATORY DATA: White blood cell count 14, hemoglobin 7, MCV 74, platelets 424. Creatinine is 2.4. Please see impression and recommendations outlined above. Thanks for asking me to see Ms. Galarza in consultation. [id number]/[facility] #: [id number] ABNER
--- NOTE | 2019-07-25 17:38 | CONSULT ---
Subjective Date of Service: 07/25/19 Interval History: Ms. Galarza is a 59 yo female with PMH significant for CAD s/p CABG, carotid stenosis, PAD, DM1, vasculopathy, peripheral neuropathy, anemia, CKD stage 4, gastroporesis, HTN, HLD, COPD, CVA, GOUT, and CHF with last EF 35-40%; she presented to the emergency room for worsening right lower extremity wounds. She presented to the hospital with a known ulcer to her right lower extremity and heel. She had been seen a few weeks ago by the ID office, and the wounds have worsened since that visit. Patient seen and examined at bedside. Family History: Unchanged from Admission Social History: Unchanged from Admission Past Medical History: Unchanged from Admission Review of Systems - Measurements Intake and Output: Intake and Output Last 24 Hours 07/23/19 07/24/19 07/25/19 07/26/19 06:59 06:59 06:59 06:59 Intake Total 1240 643 Output Total 1700 275 Balance -460 368 Weight 140 lb Intake: IVPB 400 283 ABX - LEVOFLOXACIN 100 ABX - VANCOMYCIN 250 283 Magnesium 50 Oral 840 360 Output: Mckeon 1700 250 Emesis 25 Other: # Bowel Movements 0 - Review of Systems Constitutional Symptoms: Positive: Other - Chills Negative: Fever Dermatology: Positive: Other - Open areas to right LE and heel Endocrinology: Positive: Diabetes Mellitus Objective Active Medications: Acetaminophen (Tylenol Tab*) 650 mg PO Q4H PRN Reason: MILD PAIN or TEMP > 100.4 Albuterol/Ipratropium (Duoneb (Albuterol 2.5 Mg/Ipratropium 0.5 Mg)) 1 neb INH [id number] AWAKE PRN Reason: sob/wheexing Atorvastatin Calcium (Lipitor*) 20 mg PO DAILY [facility] Carvedilol (Coreg Tab*) 3.125 mg PO BID [facility] Dextrose (Dextrose 50% Vial 50 Ml*) 25 ml IV PUSH .FOR FS < 60 - SS PRN Reason : FS < 60 Fentanyl (Duragesic Patch 25 Mcg/Hr*) 25 mcg TRANSDERM Q72H [facility] Gabapentin (Neurontin Cap(*)) 1,200 mg PO BEDTIME [facility] Heparin Sodium (Porcine) (Heparin Vial(*)) 5,000 units SUBCUT Q8HR [facility] Heparin Sodium (Porcine) (Heparin Flush Port (Ivad)) 5 ml FLUSH DAILY [facility]; Protocol Levofloxacin/Dextrose (Levaquin 500 Mg Ivpremix(*)) 500 mg in 100 mls @ 100 mls /hr IVPB Q48H [facility]; Protocol Iron Sucrose 200 mg/ Sodium (Chloride) 110 mls @ 110 mls/hr IVPB ONCE ONE Stop: 07/25/19 17:59 Insulin Glargine (Lantus(*)) 10 units SUBCUT Q24H [facility] Insulin Human Lispro (Humalog*) 0 units SUBCUT ACHS [facility]; Protocol Melatonin (Melatonin) 3 mg PO BEDTIME [facility] Metolazone (Zaroxolyn Tab*) 10 mg PO DAILY@0830 [facility] Mometasone Furoate/Formoterol Fumar (Dulera 100/5 Mdi*) 2 puff INH DAILY [facility] Morphine Sulfate (Morphine Inj (Syringe))*) 2 mg IV Q4H PRN Reason: PAIN - SEVERE Ondansetron HCl (Zofran Inj*) 4 mg IV Q4H PRN Reason: NAUSEA/VOMITING Oxycodone/Acetaminophen (Percocet 5/325 Tab*) 1 tab PO Q4H PRN Reason: PAIN - MODERATE Pharmacy Consult (Vancomycin Per Pharmacy*) 1 note FOLLOW UP .VANC PER PHARMACY [facility]; Protocol Pharmacy Consult (Vancomycin Random Level*) 1 note FOLLOW UP 0600 ONE Stop: 07/26/19 06:01 Pharmacy Profile Note (Fentanyl Patch Check Q Shift) 1 note FOLLOW UP 0700, 1900 [facility] Polyethylene Glycol/Electrolytes (Miralax*) 17 gm PO BID [facility] Pramipexole Dihydrochloride (Mirapex Tab*) 0.5 mg PO BEDTIME [facility] Prochlorperazine (Compazine Tab*) 10 mg PO Q6H PRN Reason: NAUSEA Sertraline HCl (Zoloft*) 50 mg PO DAILY [facility] Temazepam (Restoril Cap*) 15 mg PO BEDTIME PRN Reason: INSOMNIA Tiotropium [place] (Spiriva Respimat 2.5 Mcg) 2 puff INH DAILY [facility] Torsemide (Demadex*) 100 mg PO BID [facility] Vital Signs 07/25/19 07/25/19 11:55 15:43 Temperature 97.8 F 97.8 F Pulse Rate 72 81 Respiratory 18 18 Rate Blood Pressure 123/65 132/58 (mmHg) O2 Sat by Pulse 97 Oximetry Oxygen Devices in Use Now: None Appearance: NAD, ill appearing, laying in bed Ears/Nose/Mouth/Throat: Mucous Membranes Moist Respiratory: Symmetrical Chest Expansion and Respiratory Effort Extremities: - - 1+ right DP pulse Skin: - - See skin note below Neurological: - - Lethargic and oriented Result Diagrams: 07/31/19 05:25 07/31/19 05:25 Additional Lab and Data: Above labs were pulled into the note, when the note was edited prior to signing. See labs from the day of consultation below. Laboratory Tests 04/24/19 07/25/19 07/25/19 17:32 05:30 05:30 WBC 14.7 H Hgb 7.2 L Hct 24 L Plt Count 424 Sodium 126 L Potassium 4.0 Chloride 92 L Carbon Dioxide 27 BUN 57 H Creatinine 2.40 H Glucose 161 H C-Reactive Protein 50.47 H Diagnostic Imaging: Exam Date: 04/14/19 - VL ANK/BRACHIAL INDICES Ankle-brachial indices: Right: Value (SBP) Index Brachial: 153 Posterior tibialis: 171 1.07 Dorsalis pedis: 161 1.01 Digit: 158 0.99 Doppler waveforms (acquired at rest): In the interrogated lower extremity arteries, Doppler waveforms are triphasic in the right lower extremity. Volume pulse recordings (acquired at rest): Volume pulse recordings, measured at the right ankle, measures 31 mm. IMPRESSION: No evidence of claudication or significant arterial insufficiency in the right lower extremity by vascular ultrasound FAY standards. Skin Deviation Note - Skin Deviation Findings Right lateral/posterior lower leg - There is a small superficial wound, measures 1 cm x 1.5 cm x 0.1 cm. The wound base is light pink tissue, the surrounding skin is intact. The larger wound measures 10 cm x 5.5 cm x 0.1 cm The wound base with small amount of pink granulation tissue. The majority of the wound base is black and dark eschar. There is a small amount of serous drainage. The surrounding skin is intact. Right posterior heel - The total area of the wound measures 8 c x 12 cm x 0.1 cm. There is some skin peeling on the medal aspect. The exposed skin is pink granulation tissue and dark eschar. The remainder of the heel is black eschar. There is purulent drainage from the wound. Right posterior heel (achilles) - Small area of dry dark eschar, measures 0.5 cm x l cm x 0.1 cm. The surrounding skin is intact, there is no drainage. (see further information about the heel above). Right toes - Medial aspect of the 1st toe with healed DM ulcer, area measures 0.5 cm x 1 cm. The 2nd toe nail base is black eschar (nail appears to be missing ), measures 1.1 cm x 0.8 cm. The surrounding skin is intact, there is no drainage. Wound Problem/Plan Assessment: Ms. Galarza is a 59 yo female with PMH significant for CAD s/p CABG, carotid stenosis, PAD, DM1, vasculopathy, peripheral neuropathy, anemia, CKD stage 4, gastroporesis, HTN, HLD, COPD, CVA, GOUT, and CHF with last EF 35-40%; she presented to the emergency room for worsening right lower extremity wounds. She presented to the hospital with a known ulcers to her right lower extremity and heel. She had been seen a few weeks ago by the ID office, and the wounds have worsened since that visit. 1. Right lower extremity wound. She has been seen in consultation by Dr. Zavala and he felt that the wound was secondary to venous insufficiency and/or LE edema. Recent ABIs normal. Suspect secondary to PVD and lower extremity edema in the setting of CHF. She has not tolerated Santyl in the past, due to burning. Current wound has been present for a few weeks. Recommend applying medihoney alginate, followed by rolled gauze, and change every 3 days. Keep LE elevated to help with edema management. She should be referred back to the [facility] wound clinic at discharge. 2. Right heel unstagable pressure injury. Suspect this is secondary to pressure , but DM and PVD may be a component. Current wound has been present for 2-3 weeks. Orthopedics is considering a BKA vs debridement later this week. Recommend applying dry gauze, followed by rolled gauze and change daily or as needed for soiling. Keep heel elevated off the bed. If she is not taken to the OR for a procedure, will need to have debridement of the heel. 3. Right toes with wounds. Suspect secondary to trauma and/or DM ulcers. No open areas. No dressing needed. Protect from pressure and trauma. 4. DM2 with associated peripheral neuropathy, CKD, and gastroporesis. History of poor compliance. HgA1C was 11.2 in June 2019. Maintain good glycemic control to allow for wound healing. 5. PAD with history of left BKA. 6. CHF. Suspect the edema is contributing to her lower extremity wounds. Maintain fluid balance and diuresis as needed. 7. Diet. Heart Healthy diet. 9. Disposition. Inpatient. Disposition per primary medicine team. TIME SPENT: Time for this wound consultation was 55 minutes and 45 minutes was spent with the patient discussing past medical history; events leading to her admission; assessing, measuring, and photographing the wound; and applying a dressing. Is Patient a Wound Clinic Patient: No - In the past, but not recently Attending: Aishwarya Kumari
[2019-07-25] MEDS: Insulin GLARGINE(*) 1 UNITS UNIT SUBCUT SCH (20:03)
[2019-07-25] MEDS: Gabapentin CAP(*) 400 MG PO SCH (22:57)
[2019-07-25] MEDS: Pramipexole TAB* 0.5 MG PO SCH (22:58)
[2019-07-25] MEDS: Melatonin 3 MG TAB PO SCH (22:59)
[2019-07-26] MEDS ORDERED: Alteplase (CATHFLO)* 2 MG VIAL IV ONE (05:19)
[2019-07-26] MEDS ORDERED: Vancomycin Trough Check NOTE FOLLOW UP ONE (06:00)
[2019-07-26] MEDS ORDERED: Vancomycin Random Level* NOTE FOLLOW UP ONE (06:00)
[2019-07-26] MEDS: Heparin VIAL(*) 5000 UNITS/ML VIAL (FIVE THOUSAND) SUBCUT SCH ×3 (06:32→22:27)
[2019-07-26 06:37] LABS: ABS Basophils 0.1 10^3/ul (0-0.2); ABS Eosinophils 0.1 10^3/ul (0-0.6); ABS Lymphocytes 0.9 10^3/ul (1.0-4.8); ABS Monocytes 1.2 10^3/ul (0-0.8); ABS Neutrophils 11.5 10^3/ul (1.5-7.7); ABS Nucleated RBC 0.1 10^3/ul; Eosinophil % 0.5 %; Hematocrit 25 % (35-47); Hemoglobin 7.5 g/dL (12.0-16.0); Lymphocyte % 6.7 %; Mean Corpuscular HGB Conc 30 g/dL (31-36); Mean Corpuscular Hemoglobin 22 pg (27-31); Mean Corpuscular Volume 74 fL (80-97); Mean Platelet Volume 8.4 fL (7.4-10.4); Nucleated Red Blood Cells % 0.5; Platelet Count 457 10^3/uL (150-450); Red Blood Count 3.37 10^6 /uL (3.70-4.87); Red Cell Distribution Width 28 % (10-15); White Blood Count 13.9 10^3/uL (3.5-10.8)
[2019-07-26] MEDS: Prochlorperazine TAB* 10 MG PO PRN (06:39)
[2019-07-26] MEDS: oxyCODONE/Acetamin 5/325 MG* TAB PO PRN (06:39)
[2019-07-26 06:56] LABS: Albumin 2.3 g/dL (3.2-5.2); Albumin/Globulin Ratio 0.8 (1-3); BUN/Creatinine Ratio 24.8 (8-20); Calcium 8.5 mg/dL (8.6-10.3); EGFR African American 21.9 (>60); EGFR Non-African American 18.1 (>60); Potassium 3.7 mmol/L (3.5-5.0); Total Bilirubin 0.6 mg/dL (0.2-1.0); Total Protein 5.3 g/dL (6.4-8.9)
[2019-07-26 07:01] LABS: Vancomycin Random 28.3 mcg/mL
[2019-07-26] MEDS: fentaNYL Patch Check Q Shift 1 NOTE FOLLOW UP SCH ×2 (07:10→19:19)
[2019-07-26] MEDS: Insulin LISPRO* 1 UNITS UNIT SUBCUT SCH ×4 (07:29→22:26)
[2019-07-26] MEDS: Sertraline* 50 MG TAB PO SCH (09:35)
[2019-07-26] MEDS: Polyethylene Glycol 3350* 17 GM PACKET PO SCH ×2 (09:35→22:32)
[2019-07-26] MEDS: Torsemide TAB* 100 MG PO SCH ×2 (09:36→22:30)
[2019-07-26] MEDS: Metolazone TAB* 5 MG PO SCH (09:36)
[2019-07-26] MEDS: Atorvastatin* 20 MG TAB PO SCH (09:36)
[2019-07-26] MEDS: Carvedilol TAB* 3.125 MG PO SCH ×2 (09:36→22:31)
[2019-07-26] MEDS: Mometasone/Formoter 100/5 MDI INH SCH (09:37)
[2019-07-26] MEDS: SPIRIVA Respimat* (tiotropium) 2.5 mcg/inh Inhaler INH SCH (09:39)
--- NOTE | 2019-07-26 14:12 | PN ---
Subjective Date of Service: 07/26/19 Interval History: Ms. Galarza is feeling okay today. She had a difficult night d/t N/V. Medication helped. She denies any N/V this morning and reports that it is typical for her to have intermittent N/V when she is sick. RLE pain is manageable. She is hoping to avoid amputation. Agreeable to have wounds debrided. Denies CP or SOB. She does think she is a little fluid overloaded. Nursing called to report that Mckeon needed to be changed as it was not draining properly. Family History: Unchanged from Admission Social History: Unchanged from Admission Past Medical History: Unchanged from Admission Objective Active Medications: Acetaminophen (Tylenol Tab*) 650 mg PO Q4H PRN MILD PAIN or TEMP > 100.4 Albuterol/Ipratropium (Duoneb (Albuterol 2.5 Mg/Ipratropium 0.5 Mg)) 1 neb INH [id number] AWAKE PRN sob/wheexing Atorvastatin Calcium (Lipitor*) 20 mg PO DAILY [facility] Carvedilol (Coreg Tab*) 3.125 mg PO BID [facility] Dextrose (Dextrose 50% Vial 50 Ml*) 25 ml IV PUSH .FOR FS < 60 - SS PRN FS < 60 Fentanyl (Duragesic Patch 25 Mcg/Hr*) 25 mcg TRANSDERM Q72H [facility] Gabapentin (Neurontin Cap(*)) 1,200 mg PO BEDTIME [facility] Heparin Sodium (Porcine) (Heparin Vial(*)) 5,000 units SUBCUT Q8HR [facility] Heparin Sodium (Porcine) (Heparin Flush Port (Ivad)) 5 ml FLUSH DAILY [facility]; Protocol Levofloxacin/Dextrose (Levaquin 500 Mg Ivpremix(*)) 500 mg in 100 mls @ 100 mls /hr IVPB Q48H [facility]; Protocol Insulin Glargine (Lantus(*)) 10 units SUBCUT Q24H [facility] Insulin Human Lispro (Humalog*) 0 units SUBCUT ACHS [facility]; Protocol Melatonin (Melatonin) 3 mg PO BEDTIME [facility] Metolazone (Zaroxolyn Tab*) 10 mg PO DAILY@0830 [facility] Mometasone Furoate/Formoterol Fumar (Dulera 100/5 Mdi*) 2 puff INH DAILY [facility] Morphine Sulfate (Morphine Inj (Syringe))*) 2 mg IV Q4H PRN PAIN - SEVERE Ondansetron HCl (Zofran Inj*) 4 mg IV Q4H PRN NAUSEA/VOMITING Oxycodone/Acetaminophen (Percocet 5/325 Tab*) 1 tab PO Q4H PRN PAIN - MODERATE Polyethylene Glycol/Electrolytes (Miralax*) 17 gm PO BID [facility] Pramipexole Dihydrochloride (Mirapex Tab*) 0.5 mg PO BEDTIME [facility] Prochlorperazine (Compazine Tab*) 10 mg PO Q6H PRN NAUSEA Sertraline HCl (Zoloft*) 50 mg PO DAILY [facility] Temazepam (Restoril Cap*) 15 mg PO BEDTIME PRN INSOMNIA Tiotropium [place] (Spiriva Respimat 2.5 Mcg) 2 puff INH DAILY [facility] Torsemide (Demadex*) 100 mg PO BID [facility] Vital Signs - 8 hr 07/26/19 07/26/19 07/26/19 06:39 08:38 08:39 Temperature 97.3 F Pulse Rate 67 Respiratory 16 16 16 Rate Blood Pressure 130/70 (mmHg) O2 Sat by Pulse 100 Oximetry 07/26/19 07/26/19 09:45 11:40 Temperature 97.3 F Pulse Rate 65 Respiratory 16 16 Rate Blood Pressure 138/70 (mmHg) O2 Sat by Pulse 100 Oximetry Oxygen Devices in Use Now: Nasal Cannula - 2L Appearance: Middle-aged female lying in bed in NAD Ears/Nose/Mouth/Throat: Mucous Membranes Moist Neck: NL Appearance and Movements; NL JVP, Trachea Midline Respiratory: Symmetrical Chest Expansion and Respiratory Effort, Clear to Auscultation Cardiovascular: NL Sounds; No Murmurs; No JVD Abdominal: NL Sounds; No Tenderness; No Distention Extremities: - - +1 generalized Skin: - - Wounds to RLE Neurological: Alert and Oriented x 3 Nutrition: Taking PO's Result Diagrams: 07/26/19 06:15 07/26/19 06:15 Assess/Plan/Problems-Billing Assessment: Ms. Galarza is a 59 yo F with PMH of DM1, systolic CHF, CKD stage 4, CAD, PVD, HTN, COPD, CVA, peripheral neuropathy, chronic Mckeon; who presented to the ED with c/o worsening RLE wounds and was found to be septic secondary to wound infections. - Patient Problems (1) Diabetic foot infection Code(s): E11.69 - TYPE 2 DIABETES MELLITUS WITH OTHER SPECIFIED COMPLICATION; L08.9 - LOCAL INFECTION OF THE SKIN AND SUBCUTANEOUS TISSUE, UNSP Comment: - Large wounds to lateral right foot and lateral right calf, both appear infected - Wound care consult - Appreciate Ortho consult; recommending debridement tomorrow - Appreciate ID consult; recommends continuing current abx - NPO after midnight for OR tomorrow for RLE wound debridement - Continue Alonzo lindquist (2) Sepsis Comment: - Met criteria on admission with leukocytosis and tachycardia; source is LE wound - BC negative to date - Plan as above (3) Diabetes Code(s): E11.9 - TYPE 2 DIABETES MELLITUS WITHOUT COMPLICATIONS Comment: - Hyperglycemic on admission with glucose >600 - A1c in June 11.2% - Continue Lispro SS; increase Lantus (4) Anemia Code(s): D64.9 - ANEMIA, UNSPECIFIED Comment: - AIDEE and AOCD - H&H slightly decreased from baseline - Iron studies from April showing iron deficiency, but it appears as though the patient is not taking daily iron - Recommend transfusion, but patient is Adventism and refusing transfusion - Continue ferrous sulfate (5) Chronic systolic congestive heart failure Code(s): I50.22 - CHRONIC SYSTOLIC (CONGESTIVE) HEART FAILURE Comment: - Slightly fluid overloaded on admission, appears slightly overloaded again today - Echo in April showed EF 35-40% with severe diffuse hypokinesis - Very diuretic-resistant - Continue torsemide, metolazone, carvedilol; furosemide x1 today (6) COPD (chronic obstructive pulmonary disease) Code(s): J44.9 - CHRONIC OBSTRUCTIVE PULMONARY DISEASE, UNSPECIFIED Comment: - Not in exacerbation - Continue Dulera, Spiriva (7) CKD (chronic kidney disease) stage 4, GFR 15-29 ml/min Code(s): N18.4 - CHRONIC KIDNEY DISEASE, STAGE 4 (SEVERE) Comment: - Creatinine at baseline - Renally dosed medications and abx (8) HTN (hypertension) Code(s): I10 - ESSENTIAL (PRIMARY) HYPERTENSION Comment: - Normotensive - Continue carvedilol (9) CAD (coronary artery disease) Code(s): I25.10 - ATHSCL HEART DISEASE OF [place] CORONARY ARTERY W/O ANG PCTRS Comment: - Aspirin held for surgery - Continue carvedilol, atorvastatin (10) Chronic indwelling Mckeon catheter Code(s): Z96.0 - PRESENCE OF UROGENITAL IMPLANTS Comment: - Change Mckeon today (11) DVT prophylaxis Comment: - Heparin SQ (12) DNR (do not resuscitate) Comment: Status and Disposition: Inpatient. OR tomorrow for wound debridement. Would benefit from PMRU admission at d/c if possible. Attending: Bernard Bonilla
[2019-07-26] MEDS ORDERED: Cyclobenzaprine TAB* 10 MG PO PRN (14:13)
--- NOTE | 2019-07-26 14:18 | PN ---
Progress Note - Progress Note Date of Service: 07/26/19 SOAP: Subjective: []Pt seen at bedside. She is comfortable and has no complaints. Denies fever, chills, CP, SOB, dizziness or nausea. Objective: []Gen: NAD RLE: Heel pressure injury dry, lateral leg wound with medihoney does not appear purulent. Still with moderate edema and mild erythema to lower leg. +f/e at ankle and MTPs, sensation decreased due to neuropathy Assessment: []Right leg infection Plan: Plan for I&D and vac placement of both leg wounds tomorrow with Dr Hess NPO and hold chemical dvt prophy at midnight. Patient aware and agreeable to I&D , vac placement of both wounds tomorrow Cont IV ABX - vanco Vital Signs Temp 97.3 F 07/26/19 11:40 Pulse 65 07/26/19 11:40 Resp 16 07/26/19 11:40 BP 138/70 07/26/19 11:40 Pulse Ox 100 07/26/19 11:40 Intake & Output 07/25/19 07/26/19 07/26/19 18:59 06:59 18:59 Intake Total 643 1035 Output Total 275 1150 Balance 368 -115 Intake: IV Fluids 135 Iron Sucrose 110 NS (0.9%) 25 IVPB 283 ABX - VANCOMYCIN 283 Oral 360 900 Output: Mckeon 250 1150 Emesis 25 Laboratory Last Values WBC 13.9 10^3/uL (3.5-10.8) H 07/26/19 06:15 RBC 3.37 10^6 /uL (3.70-4.87) L 07/26/19 06:15 Hgb 7.5 g/dL (12.0-16.0) L 07/26/19 06:15 Hct 25 % (35-47) L 07/26/19 06:15 MCV 74 fL (80-97) L 07/26/19 06:15 MCH 22 pg (27-31) L 07/26/19 06:15 MCHC 30 g/dL (31-36) L 07/26/19 06:15 RDW 28 % (10-15) H 07/26/19 06:15 Plt Count 457 10^3/uL (150-450) H 07/26/19 06:15 MPV 8.4 fL (7.4-10.4) 07/26/19 06:15 Neut % (Auto) 83.1 % 07/26/19 06:15 Lymph % (Auto) 6.7 % 07/26/19 06:15 [place] % (Auto) 9.0 % 07/26/19 06:15 Eos % (Auto) 0.5 % 07/26/19 06:15 Baso % (Auto) 0.7 % 07/26/19 06:15 Absolute Neuts (auto) 11.5 10^3/ul (1.5-7.7) H 07/26/19 06:15 Absolute Lymphs (auto) 0.9 10^3/ul (1.0-4.8) L 07/26/19 06:15 Absolute Monos (auto) 1.2 10^3/ul (0-0.8) H 07/26/19 06:15 Absolute Eos (auto) 0.1 10^3/ul (0-0.6) 07/26/19 06:15 Absolute Basos (auto) 0.1 10^3/ul (0-0.2) 07/26/19 06:15 Absolute Nucleated RBC 0.1 10^3/ul 07/26/19 06:15 Nucleated RBC % 0.5 07/26/19 06:15 INR (Anticoag Therapy) 1.31 (0.82-1.09) H 07/24/19 17:14 APTT 35.3 seconds (26.0-38.0) 07/24/19 17:14 VBG pH 7.33 (7.32-7.43) 07/24/19 17:13 VBG pCO2 45 mmHg (41-51) 07/24/19 17:13 VBG pO2 44.0 mmHg (35-45) 07/24/19 17:13 VBG HCO3 22.3 mmol/L (24-28) L 07/24/19 17:13 VBG O2 Saturation 72.8 % (70-80) 07/24/19 17:13 VBG Base Excess -2.4 mmol/L (0.0-4.0) L 07/24/19 17:13 Sodium 128 mmol/L (135-145) L 07/26/19 06:15 Potassium 3.7 mmol/L (3.5-5.0) 07/26/19 06:15 Chloride 92 mmol/L (101-111) L 07/26/19 06:15 Carbon Dioxide 27 mmol/L (22-32) 07/26/19 06:15 Anion Gap 9 mmol/L (2-11) 07/26/19 06:15 BUN 67 mg/dL (6-24) H 07/26/19 06:15 Creatinine 2.70 mg/dL (0.51-0.95) H 07/26/19 06:15 Est GFR ( Amer) 21.9 (>60) 07/26/19 06:15 Est GFR (Non-Af Amer) 18.1 (>60) 07/26/19 06:15 BUN/Creatinine Ratio 24.8 (8-20) H 07/26/19 06:15 Glucose 106 mg/dL (70-100) H 07/26/19 06:15 POC Glucose (mg/dL) 196 mg/dL (70-100) H 07/26/19 11:47 Lactic Acid 1.9 mmol/L (0.5-2.0) 07/24/19 17:14 Calcium 8.5 mg/dL (8.6-10.3) L 07/26/19 06:15 Magnesium 1.8 mg/dL (1.9-2.7) L 07/24/19 17:14 Total Bilirubin 0.60 mg/dL (0.2-1.0) 07/26/19 06:15 AST 15 U/L (13-39) 07/26/19 06:15 ALT 8 U/L (7-52) 07/26/19 06:15 Alkaline Phosphatase 298 U/L (34-104) H 07/26/19 06:15 Total Protein 5.3 g/dL (6.4-8.9) L 07/26/19 06:15 Albumin 2.3 g/dL (3.2-5.2) L 07/26/19 06:15 Globulin 3.0 g/dL (2-4) 07/26/19 06:15 Albumin/Globulin Ratio 0.8 (1-3) L 07/26/19 06:15 Urine Color Yellow 07/25/19 10:13 Urine Appearance Cloudy 07/25/19 10:13 Urine pH 5.0 (5-9) 07/25/19 10:13 Ur Specific [place] 1.014 (1.010-1.030) 07/25/19 10:13 Urine Protein 3+(>=500 mg/dl) (Negative) A 07/25/19 10:13 Urine Ketones Negative (Negative) 07/25/19 10:13 Urine Blood 1+ (Negative) A 07/25/19 10:13 Urine Nitrate Negative (Negative) 07/25/19 10:13 Urine Bilirubin Negative (Negative) 07/25/19 10:13 Urine Urobilinogen Negative (Negative) 07/25/19 10:13 Ur Leukocyte Esterase Trace (Negative) A 07/25/19 10:13 Urine WBC (Auto) 3+(>20/hpf) (Absent) A 07/25/19 10:13 Urine RBC (Auto) 3+(>10/hpf) (Absent) A 07/25/19 10:13 Ur Squamous Epith Cells Present (Absent) A 07/25/19 10:13 Urine Bacteria 1+ (Absent) A 07/25/19 10:13 Urine Yeast Present (Absent) A 07/25/19 10:13 Urine Glucose 2+(150 mg/dl) (Negative) A 07/25/19 10:13 Random Vancomycin 28.3 mcg/mL 07/26/19 06:15
[2019-07-26] MEDS ORDERED: Furosemide IV* 10 MG/ML VIAL (40 MG) IV ONE (14:21)
[2019-07-26 15:56] LABS: Urine Appearance Turbid; Urine Bacteria Absent (Absent); Urine Bilirubin Negative (Negative); Urine Blood 1+ (Negative); Urine Color Yellow; Urine Glucose 2+(150 mg/dL) (Negative); Urine Ketones Negative (Negative); Urine Nitrite Negative (Negative); Urine Protein 2+(100 mg/dL) (Negative); Urine Red Blood Cell Trace(0-2/hpf) (Absent); Urine Specific Gravity 1.009 (1.010-1.030); Urine Squamous Epithelial Cell Present (Absent); Urine Urobilinogen Negative (Negative); Urine White Blood Cell 3+(>20/hpf) (Absent)
[2019-07-26] MEDS: Insulin GLARGINE(*) 1 UNITS UNIT SUBCUT SCH (19:36)
[2019-07-26] MEDS: Levofloxacin 500 MG IVPREMIX(* 500 MG/100 ML BAG IVPB SCH (19:36)
[2019-07-26] MEDS: Gabapentin CAP(*) 400 MG PO SCH (22:28)
[2019-07-26] MEDS: Pramipexole TAB* 0.5 MG PO SCH (22:31)
[2019-07-26] MEDS: Melatonin 3 MG TAB PO SCH (22:31)
[2019-07-27] MEDS ORDERED: Vancomycin Random Level* NOTE FOLLOW UP ONE (06:00)
[2019-07-27 06:59] LABS: Hematocrit 23 % (35-47); Hemoglobin 7.2 g/dL (12.0-16.0); Mean Corpuscular HGB Conc 31 g/dL (31-36); Mean Corpuscular Hemoglobin 22 pg (27-31); Mean Corpuscular Volume 72 fL (80-97); Mean Platelet Volume 8.3 fL (7.4-10.4); Platelet Count 419 10^3/uL (150-450); Red Blood Count 3.23 10^6 /uL (3.70-4.87); Red Cell Distribution Width 27 % (10-15); White Blood Count 15.4 10^3/uL (3.5-10.8)
[2019-07-27 07:00] LABS: INR 1.31 (0.82-1.09)
[2019-07-27 07:05] LABS: BUN/Creatinine Ratio 25.2 (8-20); Calcium 8.2 mg/dL (8.6-10.3); EGFR African American 19.5 (>60); EGFR Non-African American 16.2 (>60); Potassium 3.4 mmol/L (3.5-5.0)
[2019-07-27] MEDS: fentaNYL Patch Check Q Shift 1 NOTE FOLLOW UP SCH ×2 (07:19→19:14)
[2019-07-27] MEDS: Mometasone/Formoter 100/5 MDI INH SCH (07:19)
[2019-07-27] MEDS: SPIRIVA Respimat* (tiotropium) 2.5 mcg/inh Inhaler INH SCH (07:19)
[2019-07-27 07:24] LABS: Vancomycin Random 22.1 mcg/mL
[2019-07-27] MEDS: Insulin LISPRO* 1 UNITS UNIT SUBCUT SCH ×4 (07:31→23:23)
[2019-07-27] MEDS: Metolazone TAB* 5 MG PO SCH (07:49)
[2019-07-27] MEDS: Torsemide TAB* 100 MG PO SCH ×2 (07:49→23:23)
[2019-07-27] MEDS: Atorvastatin* 20 MG TAB PO SCH (07:50)
[2019-07-27] MEDS: Carvedilol TAB* 3.125 MG PO SCH ×2 (07:50→20:34)
[2019-07-27] MEDS: Sertraline* 50 MG TAB PO SCH (07:50)
[2019-07-27] MEDS: Polyethylene Glycol 3350* 17 GM PACKET PO SCH ×2 (07:50→20:33)
[2019-07-27 08:37] LABS: ABS Basophils 0.1 10^3/ul (0-0.2); ABS Eosinophils 0.2 10^3/ul (0-0.6); ABS Lymphocytes 1.1 10^3/ul (1.0-4.8); ABS Monocytes 1.7 10^3/ul (0-0.8); ABS Neutrophils 12.3 10^3/ul (1.5-7.7); ABS Nucleated RBC 0.1 10^3/ul; Eosinophil % 1.2 %; Lymphocyte % 7.2 %; Nucleated Red Blood Cells % 0.4
[2019-07-27 08:43] LABS: Polychromasia 1+
--- NOTE | 2019-07-27 09:50 | PN ---
Subjective Date of Service: 07/27/19 Interval History: Ms. Galarza is feeling well this morning. No further N/V. She had a good night. Took pain medication before bed and slept well overnight. No pain this morning. She is aware of plan for I&D today. Denies CP, SOB. No concern from nursing. Family History: Unchanged from Admission Social History: Unchanged from Admission Past Medical History: Unchanged from Admission Objective Active Medications: Acetaminophen (Tylenol Tab*) 650 mg PO Q4H PRN MILD PAIN or TEMP > 100.4 Albuterol/Ipratropium (Duoneb (Albuterol 2.5 Mg/Ipratropium 0.5 Mg)) 1 neb INH [id number] AWAKE PRN sob/wheexing Atorvastatin Calcium (Lipitor*) 20 mg PO DAILY [facility] Carvedilol (Coreg Tab*) 3.125 mg PO BID [facility] Cyclobenzaprine HCl (Flexeril Tab*) 10 mg PO BID PRN SPASMS Dextrose (Dextrose 50% Vial 50 Ml*) 25 ml IV PUSH .FOR FS < 60 - SS PRN FS < 60 Fentanyl (Duragesic Patch 25 Mcg/Hr*) 25 mcg TRANSDERM Q72H [facility] Gabapentin (Neurontin Cap(*)) 1,200 mg PO BEDTIME [facility] Heparin Sodium (Porcine) (Heparin Flush Port ([place])) 5 ml FLUSH DAILY [facility]; Protocol Levofloxacin/Dextrose (Levaquin 500 Mg Ivpremix(*)) 500 mg in 100 mls @ 100 mls /hr IVPB Q48H [facility]; Protocol Insulin Glargine (Lantus(*)) 10 units SUBCUT Q24H [facility] Insulin Human Lispro (Humalog*) 0 units SUBCUT ACHS [facility]; Protocol Melatonin (Melatonin) 3 mg PO BEDTIME [facility] Metolazone (Zaroxolyn Tab*) 10 mg PO DAILY@0830 [facility] Mometasone Furoate/Formoterol Fumar (Dulera 100/5 Mdi*) 2 puff INH DAILY [facility] Morphine Sulfate (Morphine Inj (Syringe))*) 2 mg IV Q4H PRN PAIN - SEVERE Ondansetron HCl (Zofran Inj*) 4 mg IV Q4H PRN NAUSEA/VOMITING Oxycodone/Acetaminophen (Percocet 5/325 Tab*) 1 tab PO Q4H PRN PAIN - MODERATE Polyethylene Glycol/Electrolytes (Miralax*) 17 gm PO BID [facility] Pramipexole Dihydrochloride (Mirapex Tab*) 0.5 mg PO BEDTIME [facility] Prochlorperazine (Compazine Tab*) 10 mg PO Q6H PRN NAUSEA Sertraline HCl (Zoloft*) 50 mg PO DAILY [facility] Temazepam (Restoril Cap*) 15 mg PO BEDTIME PRN INSOMNIA Tiotropium [place] (Spiriva Respimat 2.5 Mcg) 2 puff INH DAILY [facility] Torsemide (Demadex*) 100 mg PO BID [facility] Vital Signs - 8 hr 07/27/19 07/27/19 07/27/19 03:00 07:21 08:05 Temperature 97 F 97.7 F Pulse Rate 64 68 63 Respiratory 18 18 16 Rate Blood Pressure 140/70 110/59 (mmHg) O2 Sat by Pulse 100 98 100 Oximetry Oxygen Devices in Use Now: Nasal Cannula - 2L Appearance: Middle-aged female lying in bed in NAD Ears/Nose/Mouth/Throat: Mucous Membranes Moist Neck: NL Appearance and Movements; NL JVP, Trachea Midline Respiratory: Symmetrical Chest Expansion and Respiratory Effort, Clear to Auscultation Cardiovascular: NL Sounds; No Murmurs; No JVD, RRR Abdominal: NL Sounds; No Tenderness; No Distention Neurological: Alert and Oriented x 3 Lines/Tubes/Other Access: Clean, Dry and Intact Other Access - Implanted port Result Diagrams: 07/27/19 06:30 07/27/19 06:30 Assess/Plan/Problems-Billing Assessment: Ms. Galarza is a 59 yo F with PMH of DM1, systolic CHF, CKD stage 4, CAD, PVD, HTN, COPD, CVA, peripheral neuropathy, chronic Mckeon; who presented to the ED with c/o worsening RLE wounds and was found to be septic secondary to wound infections. - Patient Problems (1) Diabetic foot infection Code(s): E11.69 - TYPE 2 DIABETES MELLITUS WITH OTHER SPECIFIED COMPLICATION; L08.9 - LOCAL INFECTION OF THE SKIN AND SUBCUTANEOUS TISSUE, UNSP Comment: - Large wounds to lateral right foot and lateral right calf, both appear infected - Wound care consult - Appreciate Ortho consult; recommending debridement - Appreciate ID consult; recommends continuing current abx - OR for I&D today with anticipated wound vac placement - Continue Alonzo lindquist (2) Sepsis Comment: - Met criteria on admission with leukocytosis and tachycardia; source is LE wound - BC negative to date - Plan as above (3) Anemia Code(s): D64.9 - ANEMIA, UNSPECIFIED Comment: - AIDEE and AOCD - H&H slightly decreased from baseline - Iron studies from April showing iron deficiency, but it appears as though the patient is not taking daily iron - Recommend transfusion, but patient is Buddhist and refusing transfusion - Received one dose iron sucrose 07/25/19 - Continue ferrous sulfate (4) CKD (chronic kidney disease) stage 4, GFR 15-29 ml/min Code(s): N18.4 - CHRONIC KIDNEY DISEASE, STAGE 4 (SEVERE) Comment: - Baseline creatinine ~1.6 - Creatinine trending up; if it continues to increase may consider Nephrology consult - Renally dosed medications and abx (5) Chronic systolic congestive heart failure Code(s): I50.22 - CHRONIC SYSTOLIC (CONGESTIVE) HEART FAILURE Comment: - Slightly fluid overloaded on admission, appears slightly overloaded again today - Echo in April showed EF 35-40% with severe diffuse hypokinesis - Very diuretic-resistant - Continue torsemide, metolazone, carvedilol (6) Diabetes Code(s): E11.9 - TYPE 2 DIABETES MELLITUS WITHOUT COMPLICATIONS Comment: - Hyperglycemic on admission with glucose >600 - A1c in June 11.2% - Continue Lispro SS, Lantus (7) COPD (chronic obstructive pulmonary disease) Code(s): J44.9 - CHRONIC OBSTRUCTIVE PULMONARY DISEASE, UNSPECIFIED Comment: - Not in exacerbation - Continue Dulera, Spiriva (8) HTN (hypertension) Code(s): I10 - ESSENTIAL (PRIMARY) HYPERTENSION Comment: - Normotensive - Continue carvedilol (9) CAD (coronary artery disease) Code(s): I25.10 - ATHSCL HEART DISEASE OF [place] CORONARY ARTERY W/O ANG PCTRS Comment: - Aspirin held for surgery - Continue carvedilol, atorvastatin (10) Chronic indwelling Mckeon catheter Code(s): Z96.0 - PRESENCE OF UROGENITAL IMPLANTS Comment: - Changed 07/26/19 (11) DVT prophylaxis Comment: - Heparin held for surgery today; will resume tonight (12) DNR (do not resuscitate) Comment: Status and Disposition: Inpatient. OR today for I&D. Would benefit from PMRU admission at d/c if possible as she will not consider going to another rehab. Attending: Bernard Bonilla
--- NOTE | 2019-07-27 10:49 | PN ---
Progress Note - Progress Note Date of Service: 07/27/19 SOAP: Subjective: CC: leg pain HPI: 59 year old woman with diabetes and vascular disease with right leg wounds , CT shows calcaneous avulsion; leg pain and swelling improving. Appetite is ok. No fever, rash, or diarrhea. Objective: Vital Signs Temp 37.1 C 07/27/19 10:03 Pulse 61 07/27/19 10:03 Resp 18 07/27/19 10:03 BP 121/57 07/27/19 10:03 Pulse Ox 100 07/27/19 10:03 Intake & Output 07/26/19 07/27/19 07/27/19 18:59 06:59 18:59 Intake Total 480 1250 Output Total 825 1350 Balance -345 -100 Weight 159 lb 1.6 oz Intake: Oral 480 1250 Output: Mckeon 825 1350 Gen:awake, no distress HEENT: no thrush Heart:RRR no murmur Lungs:CTA BL Abd:+BS NTND soft Skin: no rash MSK: Right leg wrapped; diffuse edema, mild erythema Laboratory Results - last 24 hr 07/26/19 07/26/19 07/26/19 11:47 15:19 16:53 WBC RBC Hgb Hct MCV MCH MCHC RDW Plt Count MPV Neut % (Auto) Lymph % (Auto) [place] % (Auto) Eos % (Auto) Baso % (Auto) Absolute Neuts (auto) Absolute Lymphs (auto) Absolute Monos (auto) Absolute Eos (auto) Absolute Basos (auto) Absolute Nucleated RBC Nucleated RBC % Polychromasia Hypochromasia Basophilic Stippling Anisocytosis Macrocytosis INR (Anticoag Therapy) Sodium Potassium Chloride Carbon Dioxide Anion Gap BUN Creatinine Est GFR ( Amer) Est GFR (Non-Af Amer) BUN/Creatinine Ratio Glucose POC Glucose (mg/dL) 196 H 235 H Calcium Urine Color Yellow Urine Appearance Turbid Urine pH 5.0 Ur Specific [place] 1.009 L Urine Protein 2+(100 mg/dl) A Urine Ketones Negative Urine Blood 1+ A Urine Nitrate Negative Urine Bilirubin Negative Urine Urobilinogen Negative Ur Leukocyte Esterase 3+ A Urine WBC (Auto) 3+(>20/hpf) A Urine RBC (Auto) Trace(0-2/hpf) Ur Squamous Epith Cells Present A Urine Bacteria Absent Urine Yeast Present A Urine Glucose 2+(150 mg/dl) A Random Vancomycin 07/26/19 07/27/19 07/27/19 21:48 06:30 06:30 WBC 15.4 H RBC 3.23 L Hgb 7.2 L Hct 23 L MCV 72 L MCH 22 L MCHC 31 RDW 27 H Plt Count 419 MPV 8.3 Neut % (Auto) 80.0 Lymph % (Auto) 7.2 [place] % (Auto) 11.0 Eos % (Auto) 1.2 Baso % (Auto) 0.6 Absolute Neuts (auto) 12.3 H Absolute Lymphs (auto) 1.1 Absolute Monos (auto) 1.7 H Absolute Eos (auto) 0.2 Absolute Basos (auto) 0.1 Absolute Nucleated RBC 0.1 Nucleated RBC % 0.4 Polychromasia 1+ Hypochromasia 1+ Basophilic Stippling 1+ Anisocytosis 1+ Macrocytosis 1+ INR (Anticoag Therapy) Sodium 130 L Potassium 3.4 L Chloride 91 L Carbon Dioxide 30 Anion Gap 9 BUN 75 H Creatinine 2.98 H Est GFR ( Amer) 19.5 Est GFR (Non-Af Amer) 16.2 BUN/Creatinine Ratio 25.2 H Glucose 122 H POC Glucose (mg/dL) 276 H Calcium 8.2 L Urine Color Urine Appearance Urine pH Ur Specific [place] Urine Protein Urine Ketones Urine Blood Urine Nitrate Urine Bilirubin Urine Urobilinogen Ur Leukocyte Esterase Urine WBC (Auto) Urine RBC (Auto) Ur Squamous Epith Cells Urine Bacteria Urine Yeast Urine Glucose Random Vancomycin 22.1 07/27/19 06:30 WBC RBC Hgb Hct MCV MCH MCHC RDW Plt Count MPV Neut % (Auto) Lymph % (Auto) [place] % (Auto) Eos % (Auto) Baso % (Auto) Absolute Neuts (auto) Absolute Lymphs (auto) Absolute Monos (auto) Absolute Eos (auto) Absolute Basos (auto) Absolute Nucleated RBC Nucleated RBC % Polychromasia Hypochromasia Basophilic Stippling Anisocytosis Macrocytosis INR (Anticoag Therapy) 1.31 H Sodium Potassium Chloride Carbon Dioxide Anion Gap BUN Creatinine Est GFR ( Amer) Est GFR (Non-Af Amer) BUN/Creatinine Ratio Glucose POC Glucose (mg/dL) Calcium Urine Color Urine Appearance Urine pH Ur Specific [place] Urine Protein Urine Ketones Urine Blood Urine Nitrate Urine Bilirubin Urine Urobilinogen Ur Leukocyte Esterase Urine WBC (Auto) Urine RBC (Auto) Ur Squamous Epith Cells Urine Bacteria Urine Yeast Urine Glucose Random Vancomycin Microbiology 07/24/19 17:12 Blood Venous Aerobic Blood Culture - Preliminary No Growth Day 2 07/24/19 17:12 Blood Venous Anaerobic Blood Culture - Preliminary No Growth Day 2 07/25/19 10:13 Urine Urine Culture - Final Assessment: 1. Right leg cellulitis, non healing ulcers 2. Calcaneous avulsion 3. T1DM with neuropathy 4. PAD 5. s/p L BKA 6. CKD with LELIA Plan: 1. continue vancomycin goal tr 10-15, levaquin 500 mg Q48hrs, I&D and vac planned for today
--- NOTE | 2019-07-27 14:15 | CONSULT ---
Consult Consult: Neurology Inpatient Consult Note Date of Service: 07/27/2019 Reason for consult: Neurology was consulted by Nell Boyce to evaluate the patient for possible stroke. The history was obtained by the patient. Chief complaint: Woke up with blurred vision in the right eye. History of Present Illness: Ms. Michelle Galarza is a 59-year-old right-handed DMII female who has history of remote stroke, with residual right hemianesthesia , who woke up at 0800 on 07/27/2019 (today) with blurred vision in the right eye. She slept at 11 pm on 07/26/2019 without any deficits. She denied any visual loss or dark spots. She sees increase in fogginess in that eye. She denied any retro-orbital pain in the right eye. She denied any double vision. She has poor vision at baseline. She denied any headaches, speech abnormality, focal weakness or paresthesia. NIHSS: 0 today. She is not a candidate for IV tPA or mechanical thrombectomy as the diagnosis is not stroke. I personally contacted the patient's optomitrist in [place] (Dr. Tati Smith). The patient was last seen in that practice on 01/2018. She was referred to Dr. Shayy MD in [facility], Retinal and Vitreous specialist. I spoke with the paralegal legal secretary, Giacomo, who provided some medical background. Ms. Galarza has advanced retinal disease with a diagnosis of proliferative diabetic retinopathy , diabetic retinal edema requiring laser surgery. She was scheduled for laser surgery but she cancelled once and "no showed" on another. The office was nice enough to schedule an appointment with Dr. Lucas on 08/09/2019 at 10:10 A.M. Baseline visual acuity according to Dr. Lucas's office: OD: 20/200 with glasses, pinholes 20/150. OS 20/200 with glasses, and 20/150 with pinholes. The patient is currently in the hospital for the treatment of right leg cellulites, non healing ulcer. She is on antibiotic therapy with vancomycin and levaquin. She has an I&D and vac planned for today. A code magana was activated today. I requested to have the code magana cancelled. IMAGING: CT head without contrast 07/27/2019: no acute intracranial abnormality. 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, peripheral neuropathy, chronic urinary catheter, Diabetic foot infection Family History: No family history of stroke or seizures Social History: Denied EtOH or tobacco use Medications: Gabapentin TAB(NF) [Neurontin 600 mg TAB(NF)] 1,200 mg PO BEDTIME 09/17/17 [ History Confirmed 07/24/19] Pramipexole TAB* [Mirapex TAB*] 0.5 mg PO BEDTIME 10/20/17 [History Confirmed ] Aspirin EC TAB* [Ecotrin EC Low Dose 81 MG*] 81 mg PO DAILY 07/04/18 [History Confirmed 07/24/19] Carvedilol TAB* [Coreg TAB*] 3.125 mg PO BID 07/04/18 [History Confirmed ] Nitroglycerin TAB 0.4 MG* 0.4 mg SL Q5M PRN 07/04/18 [History Confirmed 07/24/19 ] Cyanocobalamin (Vitamin B-12) [Vitamin B-12] 1,000 mcg PO DAILY #30 tablet 03/09 [Rx Confirmed 07/24/19] Ipratropium/Albuterol Sulfate [Iprat-Albut 0.5-3(2.5) mg/3 ml] 3 ml INH Q4H PRN 03/09/19 [History Confirmed 07/24/19] Sertraline* [Zoloft*] 50 mg PO DAILY 03/09/19 [History Confirmed 07/24/19] Atorvastatin* [Lipitor 20 MG*] 20 mg PO DAILY 04/27/19 [History Confirmed ] Mometasone/Formoter 100/5 MDI* [Dulera 100/5 MDI*] 2 inh INH DAILY 04/28/19 [ History Confirmed 07/24/19] Tiotropium CAP.INH (NF) [Spiriva CAP.INH*] 1 cap INH DAILY 04/28/19 [History Confirmed 07/24/19] Acetaminophen TAB* [Tylenol TAB*] 650 mg PO Q6H PRN tab 05/06/19 [Rx Confirmed 07/24/19] Insulin LISPRO* [HumaLOG*] 0 units SUBCUT ACHS unit 05/06/19 [Rx Confirmed ] Levofloxacin TAB* [Levaquin 500 Tab*] 500 mg PO Q48H tab 05/06/19 [Rx Confirmed 07/24/19] Melatonin 3 mg PO BEDTIME tab 05/06/19 [Rx Confirmed 07/24/19] Metolazone TAB* [Zaroxolyn TAB*] 10 mg PO DAILY@0830 tab 05/06/19 [Rx Confirmed 07/24/19] Morphine ORAL CONCENTRATE* 5 mg SL Q2H PRN oral.syrin 05/06/19 [Rx Confirmed ] Polyethylene Glycol 3350* [Miralax*] 17 gm PO BID packet 05/06/19 [Rx Confirmed 07/24/19] Prochlorperazine TAB* [Compazine Tab*] 10 mg PO Q6H PRN tab 05/06/19 [Rx Confirmed 07/24/19] Torsemide TAB* [Demadex*] 100 mg PO BID tab 05/06/19 [Rx Confirmed 07/24/19] fentaNYL PATCH 25 MCG/HR* [Duragesic PATCH 25 Mcg/Hr*] 25 mcg TRANSDERM Q72H patch 05/06/19 [Rx Confirmed 07/24/19] DOXYcycline CAP(*) [DOXYcycline 100MG CAP(*)] 100 mg PO BID #20 cap 07/22/19 [ Rx Confirmed 07/24/19] Allergies bee venom protein (honey bee) Allergy (Verified 05/10/19 15:37) Anaphylatic Shock Cephalosporins Allergy (Verified 05/10/19 15:37) Shortness of Breath diphenhydramine [From Benadryl] Allergy (Verified 05/10/19 15:37) Difficulty Breathing Penicillins Allergy (Verified 05/10/19 15:37) Hives Sulfa (Sulfonamide Antibiotics) Allergy (Verified 05/10/19 15:37) Hives codeine Adverse Reaction (Verified 05/10/19 15:37) GI Upset Review of Systems: A 14-point ROS was obtained and otherwise negative except for what was mentioned in the HPI. Physical Exam: Vitals: Vital Signs - 12 hr Temp Pulse Resp BP Pulse Ox 07/27/19 10:03 98.8 F 61 18 121/57 100 07/27/19 08:05 97.7 F 63 16 110/59 100 07/27/19 08:00 18 07/27/19 07:21 68 18 98 07/27/19 03:00 97 F 64 18 140/70 100 General: chronically ill appearing female in no distress. Head: normocephalic, without obvious abnormality Eyes: conjunctivae/corneas clear Neck: supple, symmetrical. No carotid bruit. No lymphadenopathy. Lungs: clear to auscultation bilaterally, non-labored CV: regular rhythm, S1, S2 normal, radial pulses palpable Extremities: bka on the left. The right leg is dressed, w/ ulcerative toes on the right. Skin: dry wounds on the great toe on the right. Psych: affect-broad and normal mood. Easy to establish rapport. Neurological examination: Mental status: awake; alert and oriented to person, place, time, & general circumstances; speech & language including expression, naming, repetition, & comprehension was assessed and found to be normal. Cranial nerves: I: not tested II, III, IV, : normal confrontation B/L, Pupils midrange and reactive to light. Visual acuity OD 20/200 and OS 20/100 with glasses. Fundoscopic exam: cataracts. Unable to visualize the fundus. V //3: sensation is intact on forehead, cheeks, and jaw region VII: no facial droop; facial symmetry while smiling & wrinkling of forehead; tight lid closure VIII: able to hear throughout the history process IX & X: symmetric palatal elevation XI: normal strength against resistance XII: tongue is symmetrical & midline with no atrophy or fasciculations Motor (R/L): moves all extremities to command and against gravity. Reflexes: trace in the uppers and absent in the right lower extremity. Sensation is intact to light touch throughout. Coordination: normal finger to nose bilaterally Gait & Station: n/a Assessment: 1. Right visual disturbance in a patient with history of proliferative diabetic retinopathy and diabetic retinal edema- manifesting as visual blurriness on the right with no focal neurological deficits, absence of double vision, and no visual field cut. This is related to an ophthalmologic and not a neurological problem. In rare cases, fluoroquinolones can cause phototoxicity and retinal detachment in patients with additional predisposing risk factors. 2. Remote history of stroke - aspirin was held overnight for an I&D Recommendations: - The earliest appointment with an digital cartographic technician I can arrange was with Dr. Lucas (retinal and vitreous specialist) on 08/09/2019 at 10:10 a.m. - If she continues to complain of symptoms, then getting her seen by an digital cartographic technician sooner than 08/09 is recommended. - Please discuss the possibility of the antibiotic therapy causing a phototoxic reaction. - Resume aspirin when cleared by surgery. Neurology will sign off. Discussed the above recommendations with Nell. Carlos Ochoa MD Date: 07/27/2019 Time:
[2019-07-27] MEDS ORDERED: Midazolam* 1 MG/ML 2 ML VIAL (2 MG) ONE (16:18)
[2019-07-27] MEDS ORDERED: fentaNYL* 50 MCG/ML 2 ML VIAL (100 MCG VIAL) ONE ×2 (16:18→17:57)
[2019-07-27] MEDS ORDERED: KETAMINE HCL* 50 MG/ML 10 ML VIAL ONE (16:19)
[2019-07-27] MEDS ORDERED: Lidocaine 2% PF* 10 ML AMP ONE (16:40)
[2019-07-27] MEDS ORDERED: Lidocaine 2% PF * 5 ML VIAL ONE (16:45)
[2019-07-27] MEDS ORDERED: Propofol* 10 MG/ML 20 ML BTL ONE (16:45)
[2019-07-27] MEDS ORDERED: fentaNYL* 50 MCG/ML 2 ML VIAL (100 MCG VIAL) IV PRN (17:58)
[2019-07-27] MEDS ORDERED: Naloxone* 0.4 MG/ML 1 ML VIAL IV PRN (17:58)
[2019-07-27] MEDS ORDERED: Levalbuterol 0.63MG/3ML NEB* UNIT OF USE INH PRN (17:58)
[2019-07-27] MEDS: Aspirin 81 mg CHEW TAB* 81 MG TAB.CHEW PO SCH (19:57)
[2019-07-27] MEDS ORDERED: fentaNYL PATCH 25 MCG/HR TRANSDERM SCH (20:00)
[2019-07-27] MEDS: Gabapentin CAP(*) 400 MG PO SCH (20:33)
[2019-07-27] MEDS: oxyCODONE/Acetamin 5/325 MG* TAB PO PRN (20:33)
[2019-07-27] MEDS: Melatonin 3 MG TAB PO SCH (20:34)
[2019-07-27] MEDS: fentaNYL PATCH 25 MCG/HR TRANSDERM SCH ×2 (20:44→20:50)
[2019-07-27] MEDS: Morphine INJ* 2 MG/ML 1 ML SYRINGE (TWO MG - NEW SYRINGE VERSION) IV PRN (23:08)
[2019-07-27] MEDS: Insulin GLARGINE(*) 1 UNITS UNIT SUBCUT SCH (23:23)
[2019-07-27] MEDS: Pramipexole TAB* 0.5 MG PO SCH (23:23)
[2019-07-28] MEDS: oxyCODONE/Acetamin 5/325 MG* TAB PO PRN ×4 (01:07→20:24)
--- NOTE | 2019-07-28 04:37 | OP ---
DATE OF OPERATION: 07/27/19 - ROOM #350 DATE OF : 62. SURGEON: Tom Hess MD SERVICE ASSOCIATE: Kiah Pruett PA-C. PRE-OP DIAGNOSIS: Necrotic ulcer, right calcaneus and necrotic ulcer, right calf. POST-OP DIAGNOSIS: Necrotic ulcer, right calcaneus and necrotic ulcer, right calf. OPERATIVE PROCEDURE: Partial calcanectomy, right heel with excision of ulcer and VAC dressing and excision of eschar over right calf with VAC dressing. DESCRIPTION OF PROCEDURE: The patient was taken to operating room where lateral positioning was used and MAC anesthesia. We excised directly around the large heel ulcer, which was probably 6x6 cm. This was carried down directly to posterolateral calcaneus, which was removed with 0.5 inch curved osteotome. The tourniquet was dropped and local hemostasis was obtained with electrocautery as well as irrigation, local culture sent. Proximally the calf ulcer which was somewhat irregular in shape, but did have an eschar overlying was debrided with an #15 blade. We also irrigated this thoroughly with saline, placed the second VAC dressing. Tourniquet was down throughout the second half of the procedure and foot was wrapped with a compression dressing and Kishor and ABD over the heel. The patient tolerated the procedure well. [id number]/CPS #: [id number] [facility]
[2019-07-28] MEDS ORDERED: Vancomycin Random Level* NOTE FOLLOW UP ONE (06:00)
[2019-07-28] MEDS: Heparin VIAL(*) 5000 UNITS/ML VIAL (FIVE THOUSAND) SUBCUT SCH ×3 (06:16→22:07)
[2019-07-28] MEDS: fentaNYL Patch Check Q Shift 1 NOTE FOLLOW UP SCH ×2 (06:53→19:10)
[2019-07-28 06:55] LABS: ABS Basophils 0.2 10^3/ul (0-0.2); ABS Eosinophils 0.2 10^3/ul (0-0.6); ABS Lymphocytes 1.3 10^3/ul (1.0-4.8); ABS Monocytes 1.6 10^3/ul (0-0.8); ABS Neutrophils 10.8 10^3/ul (1.5-7.7); Eosinophil % 1.3 %; Hematocrit 24 % (35-47); Lymphocyte % 9.5 %; Mean Corpuscular HGB Conc 30 g/dL (31-36); Mean Corpuscular Hemoglobin 22 pg (27-31); Mean Corpuscular Volume 74 fL (80-97); Mean Platelet Volume 8.3 fL (7.4-10.4); Nucleated Red Blood Cells % 0.2; Platelet Count 435 10^3/uL (150-450); Red Cell Distribution Width 28 % (10-15); White Blood Count 14.1 10^3/uL (3.5-10.8)
[2019-07-28 06:56] LABS: Vancomycin Random 20.4 mcg/mL
[2019-07-28 06:57] LABS: BUN/Creatinine Ratio 25.8 (8-20); Calcium 8.2 mg/dL (8.6-10.3); EGFR African American 18.7 (>60); EGFR Non-African American 15.4 (>60); Potassium 3.3 mmol/L (3.5-5.0)
[2019-07-28 07:23] LABS: Microcytosis 2+
[2019-07-28 07:24] LABS: Polychromasia 1+
[2019-07-28] MEDS: Insulin LISPRO* 1 UNITS UNIT SUBCUT SCH ×4 (07:30→22:08)
[2019-07-28] MEDS ORDERED: Potassium Chloride* LIQUID 20 MEQ/15 ML UDC PO ONE (07:35)
[2019-07-28] MEDS: Carvedilol TAB* 3.125 MG PO SCH ×2 (07:50→22:08)
[2019-07-28] MEDS: Polyethylene Glycol 3350* 17 GM PACKET PO SCH ×2 (07:50→22:26)
[2019-07-28] MEDS: Aspirin 81 mg CHEW TAB* 81 MG TAB.CHEW PO SCH (07:50)
[2019-07-28] MEDS: Atorvastatin* 20 MG TAB PO SCH (07:50)
[2019-07-28] MEDS: Torsemide TAB* 100 MG PO SCH ×2 (07:50→22:25)
[2019-07-28] MEDS: Metolazone TAB* 5 MG PO SCH (07:50)
[2019-07-28] MEDS: Sertraline* 50 MG TAB PO SCH (07:50)
[2019-07-28] MEDS: Mometasone/Formoter 100/5 MDI INH SCH (08:17)
[2019-07-28] MEDS: SPIRIVA Respimat* (tiotropium) 2.5 mcg/inh Inhaler INH SCH (08:18)
--- NOTE | 2019-07-28 09:15 | PN ---
Progress Note - Progress Note Date of Service: 07/28/19 SOAP: Subjective: CC: Right LE wound HPI: Ms. Galarza is a 59 year old female with PMH significant for CAD s/p CABG, carotid stenosis, PAD, DM1, vasculopathy, peripheral neuropathy, anemia, CKD stage 4, gastroporesis, HTN, HLD, COPD, CVA, GOUT, and CHF with last EF 35-40%; she presented to the emergency room for worsening right lower extremity wounds. Denies fever, chills, nausea, vomiting, diarrhea, or rash. She reports mild constipation and is taking Miralax for this. She continues to have right leg pain, but this is controlled by Percocet and Morphine. Appetite is ok. Objective: Vital Signs 07/28/19 08:33 Temperature 97.2 F Pulse Rate 60 Respiratory 16 Rate Blood Pressure 99/58 (mmHg) O2 Sat by Pulse 95 Oximetry Physical Exam: General: NAD, laying in bed Neurological: Alert and Oriented HEENT: Moist MM, no thrush Cardiovascular: Heart rate regular Respiratory: Lung sounds clear Abdominal: Bowel sounds present; ABD large, soft, and non tender Skin: No rash. Surgical dressing with [address] to the right LE. Laboratory Results - last 24 hr 07/27/19 07/27/19 07/28/19 10:05 14:53 06:25 Sodium 132 L Potassium 3.3 L Chloride 91 L Carbon Dioxide 32 Anion Gap 9 BUN 80 H Creatinine 3.10 H Est GFR ( Amer) 18.7 Est GFR (Non-Af Amer) 15.4 BUN/Creatinine Ratio 25.8 H Glucose 106 H POC Glucose (mg/dL) 149 H 131 H Calcium 8.2 L Random Vancomycin 20.4 07/28/19 06:25 WBC 14.1 H RBC 3.20 L Hgb 7.0 L Hct 24 L MCV 74 L MCH 22 L MCHC 30 L RDW 28 H Plt Count 435 MPV 8.3 Neut % (Auto) 76.5 Lymph % (Auto) 9.5 [place] % (Auto) 11.3 Eos % (Auto) 1.3 Baso % (Auto) 1.4 Absolute Neuts (auto) 10.8 H Absolute Lymphs (auto) 1.3 Absolute Monos (auto) 1.6 H Absolute Eos (auto) 0.2 Absolute Basos (auto) 0.2 Absolute Nucleated RBC 0.0 Nucleated RBC % 0.2 Polychromasia 1+ Hypochromasia 2+ Anisocytosis 2+ Microcytosis 2+ Macrocytosis 1+ Microbiology 07/27/19 17:00 Skin and Soft Tissue MRSA/MSSA (PCR - Final Misc Source (See Comment) - Right Mrsa Positive S.aureus Positive Gram Stain - Final 07/27/19 17:00 Gram Stain - Final Misc Source (See Comment) - Right 07/24/19 17:12 Aerobic Blood Culture - Preliminary Blood Venous No Growth Day 3 Anaerobic Blood Culture - Preliminary No Growth Day 3 07/25/19 10:13 Urine Culture - Final Urine Assessment: 1. Right leg cellulitis with non healing ulcers. Blood cultures with no growth. Leukocytosis is improving. Afebrile. S/P I+D of the right leg and partial right calcanectomy, right heel excision of ulcer, POD #1. Initial cultures with MRSA and staph aureus positive. 2. Calcaneous avulsion 3. DM1 with neuropathy. 4. PAD. S/P L BKA 5. CKD with LELIA Plan: Continue vancomycin, goal tr 10-15. Discontinue Levaquin and change to Aztreonam 1g IV Q8H (renally dosed).
[2019-07-28] MEDS ORDERED: Senna TAB 8.6 mg* TAB PO PRN (09:42)
[2019-07-28] MEDS ORDERED: Docusate CAP* 100 MG PO PRN (09:42)
--- NOTE | 2019-07-28 10:59 | PN ---
Progress Note - Progress Note Date of Service: 07/28/19 SOAP: Subjective: [pt seen at bedside. She is comfortable and has no complaints. Denies fever, chills, CP, SOB, dizziness or nausea. Objective: []Gen: NAD RLE: Leg dressing is c/d/i. 2 wound vacs are present. Mild drainage from one and only trace drainage from the second. They are both functioning properly. Vital Signs Temp 97.2 F 07/28/19 08:33 Pulse 60 07/28/19 08:33 Resp 18 07/28/19 08:50 BP 99/58 07/28/19 08:33 Pulse Ox 95 07/28/19 08:33 Intake & Output 07/27/19 07/28/19 07/28/19 18:59 06:59 18:59 Intake Total 1800 800 Output Total 1050 1150 Balance 750 -350 Weight 158 lb 15.253 oz 159 lb 9 oz Intake: IV Fluids 1800 LR 1800 Oral 800 Output: Mckeon 1050 1150 Assessment: []Right leg infection s/p partial calcanectomy, right heel with excision of ulcer and VAC dressing and excision of eschar over right calf with VAC dressing. Plan: Continue to monitor the wound vacs. Continue with current pain medication ASA resumed right after surgery Cont IV ABX
--- NOTE | 2019-07-28 14:37 | PN ---
Subjective Date of Service: 07/28/19 Interval History: Patient complains of severe pain in RLE. Patient denies any numbness/tingling in her RLE. Patient denies F/C, CP,SOB, dizziness, abdominal pain, diarrhea, or other pain. Patient has persistent blurring of her vision. Family History: Unchanged from Admission Social History: Unchanged from Admission Past Medical History: Unchanged from Admission Objective Active Medications: Acetaminophen (Tylenol Tab*) 650 mg PO Q4H PRN PRN Reason: MILD PAIN or TEMP > 100.4 Last Admin: 07/28/19 01:07 Dose: 650 mg Albuterol/Ipratropium (Duoneb (Albuterol 2.5 Mg/Ipratropium 0.5 Mg)) 1 neb INH [id number] AWAKE PRN PRN Reason: sob/wheexing Aspirin (Aspirin 81 Mg Chew Tab*) 81 mg PO DAILY [facility] Last Admin: 07/28/19 07:50 Dose: 81 mg Atorvastatin Calcium (Lipitor*) 20 mg PO DAILY [facility] Last Admin: 07/28/19 07:50 Dose: 20 mg Carvedilol (Coreg Tab*) 3.125 mg PO BID [facility] Last Admin: 07/28/19 07:50 Dose: 3.125 mg Cyclobenzaprine HCl (Flexeril Tab*) 10 mg PO BID PRN PRN Reason: SPASMS Last Admin: 07/26/19 15:10 Dose: 10 mg Dextrose (Dextrose 50% Vial 50 Ml*) 25 ml IV PUSH .FOR FS < 60 - SS PRN PRN Reason: FS < 60 Docusate Sodium (Colace Cap*) 200 mg PO DAILY PRN PRN Reason: CONSTIPATION Fentanyl (Duragesic Patch 25 Mcg/Hr*) 25 mcg TRANSDERM Q72H [facility] Last Admin: 07/27/19 20:44 Dose: 25 mcg Gabapentin (Neurontin Cap(*)) 1,200 mg PO BEDTIME [facility] Last Admin: 07/27/19 20:33 Dose: 1,200 mg Heparin Sodium (Porcine) (Heparin Flush Port (Ivad)) 5 ml FLUSH DAILY [facility]; Protocol Last Admin: 07/28/19 08:06 Dose: Not Given Heparin Sodium (Porcine) (Heparin Vial(*)) 5,000 units SUBCUT Q8HR [facility] Last Admin: 07/28/19 13:10 Dose: 5,000 units Aztreonam 1 gm/ Sodium (Chloride) 50 mls @ 200 mls/hr IVPB Q8H [facility] Insulin Glargine (Lantus(*)) 10 units SUBCUT Q24H [facility] Last Admin: 07/27/19 23:23 Dose: 10 units Insulin Human Lispro (Humalog*) 0 units SUBCUT ACHS [facility]; Protocol Last Admin: 07/28/19 13:09 Dose: 6 units Melatonin (Melatonin) 3 mg PO BEDTIME [facility] Last Admin: 07/27/19 20:34 Dose: 3 mg Metolazone (Zaroxolyn Tab*) 10 mg PO DAILY@0830 [facility] Last Admin: 07/28/19 07:50 Dose: 10 mg Mometasone Furoate/Formoterol Fumar (Dulera 100/5 Mdi*) 2 puff INH DAILY [facility] Last Admin: 07/28/19 08:17 Dose: 2 puff Morphine Sulfate (Morphine Inj (Syringe))*) 2 mg IV Q4H PRN PRN Reason: PAIN - SEVERE Last Admin: 07/27/19 23:08 Dose: 2 mg Ondansetron HCl (Zofran Inj*) 4 mg IV Q4H PRN PRN Reason: NAUSEA/VOMITING Last Admin: 07/25/19 23:15 Dose: 4 mg Oxycodone/Acetaminophen (Percocet 5/325 Tab*) 1 tab PO Q4H PRN PRN Reason: PAIN - MODERATE Last Admin: 07/28/19 06:50 Dose: 1 tab Pharmacy Consult (Vancomycin Per Pharmacy*) 1 note FOLLOW UP .VANC PER PHARMACY [facility]; Protocol Pharmacy Consult (Vancomycin Random Level*) 1 note FOLLOW UP 0600 ONE Stop: 07/30/19 06:01 Pharmacy Profile Note (Fentanyl Patch Check Q Shift) 1 note FOLLOW UP 0700, 1900 [facility] Last Admin: 07/28/19 06:53 Dose: 1 note Polyethylene Glycol/Electrolytes (Miralax*) 17 gm PO BID [facility] Last Admin: 07/28/19 07:50 Dose: 17 gm Pramipexole Dihydrochloride (Mirapex Tab*) 0.5 mg PO BEDTIME [facility] Last Admin: 07/27/19 23:23 Dose: 0.5 mg Prochlorperazine (Compazine Tab*) 10 mg PO Q6H PRN PRN Reason: NAUSEA Last Admin: 07/26/19 06:39 Dose: 10 mg Senna (Senokot 8.6 Mg Tab*) 1 tab PO DAILY PRN PRN Reason: CONSTIPATION Sertraline HCl (Zoloft*) 50 mg PO DAILY [facility] Last Admin: 07/28/19 07:50 Dose: 50 mg Temazepam (Restoril Cap*) 15 mg PO BEDTIME PRN PRN Reason: INSOMNIA Tiotropium [place] (Spiriva Respimat 2.5 Mcg) 2 puff INH DAILY [facility] Last Admin: 07/28/19 08:18 Dose: 2 puff Torsemide (Demadex*) 100 mg PO BID [facility] Last Admin: 07/28/19 07:50 Dose: 100 mg Vital Signs - 8 hr 07/28/19 07/28/19 07/28/19 06:50 08:15 08:33 Temperature 97.2 F Pulse Rate 60 Respiratory 16 20 16 Rate Blood Pressure 99/58 (mmHg) O2 Sat by Pulse 95 Oximetry 07/28/19 08:50 Temperature Pulse Rate Respiratory 18 Rate Blood Pressure (mmHg) O2 Sat by Pulse Oximetry Oxygen Devices in Use Now: Nasal Cannula Appearance: Patient is a 59yo female who appears older than stated age and is sitting in the bed in [facility]. Eyes: No Scleral Icterus, PERRLA Ears/Nose/Mouth/Throat: NL Teeth, Lips, Gums, Clear Oropharnyx, Mucous Membranes Moist Neck: NL Appearance and Movements; NL JVP, Trachea Midline Respiratory: Symmetrical Chest Expansion and Respiratory Effort, Clear to Auscultation Cardiovascular: NL Sounds; No Murmurs; No JVD, RRR, - - 1+ B/L LE edema. Abdominal: NL Sounds; No Tenderness; No Distention, No Hepatosplenomegaly Lymphatic: No Cervical Adenopathy Extremities: No Clubbing, Cyanosis, - - LLE surgically absent. RLE wrapped with good capillary refill and [address]. Skin: No Nodules or Sclerosis Neurological: Alert and Oriented x 3, NL Sensation, NL Muscle Strength and Tone , - - CN II-XII intact. Result Diagrams: 07/28/19 06:25 07/28/19 06:25 Additional Lab and Data: Laboratory Tests 04/24/19 07/25/19 07/25/19 17:32 05:30 05:30 WBC 14.7 H Hgb 7.2 L Hct 24 L Plt Count 424 Sodium 126 L Potassium 4.0 Chloride 92 L Carbon Dioxide 27 BUN 57 H Creatinine 2.40 H Glucose 161 H C-Reactive Protein 50.47 H Microbiology and Other Data: Microbiology 07/24/19 17:12 Aerobic Blood Culture - Preliminary Blood Venous No Growth Day 1 Anaerobic Blood Culture - Preliminary No Growth Day 1 Diagnostic Imaging: Exam Date: 04/14/19 - VL ANK/BRACHIAL INDICES Ankle-brachial indices: Right: Value (SBP) Index Brachial: 153 Posterior tibialis: 171 1.07 Dorsalis pedis: 161 1.01 Digit: 158 0.99 Doppler waveforms (acquired at rest): In the interrogated lower extremity arteries, Doppler waveforms are triphasic in the right lower extremity. Volume pulse recordings (acquired at rest): Volume pulse recordings, measured at the right ankle, measures 31 mm. IMPRESSION: No evidence of claudication or significant arterial insufficiency in the right lower extremity by vascular ultrasound [facility] standards. Assess/Plan/Problems-Billing Assessment: Ms. Galarza is a 59 yo F with PMH of DM1, systolic CHF, CKD stage 4, CAD, PVD, HTN, COPD, CVA, peripheral neuropathy, chronic Mckeon; who presented to the ED with c/o worsening RLE wounds and was found to be septic secondary to wound infections. Patient is S/P I&D and is improving. - Patient Problems (1) Diabetic foot infection Current Visit: No Status: Acute Code(s): E11.69 - TYPE 2 DIABETES MELLITUS WITH OTHER SPECIFIED COMPLICATION; L08.9 - LOCAL INFECTION OF THE SKIN AND SUBCUTANEOUS TISSUE, UNSP SNOMED Code(s): 397576715 Comment: - Large wounds to lateral right foot and lateral right calf, both appear infected - Wound care consult - Appreciate Ortho consult; recommending debridement - Appreciate ID consult; Change Antibiotics to Vanco/Aztreonam - Went to OR for I&D on 07/27 with wound vac placement, functioning properly. (2) Chronic systolic congestive heart failure Current Visit: Yes Status: Acute Code(s): I50.22 - CHRONIC SYSTOLIC ( CONGESTIVE) HEART FAILURE SNOMED Code(s): 932582988 Comment: - Slightly fluid overloaded on admission, appears slightly overloaded again today - Echo in April showed EF 35-40% with severe diffuse hypokinesis - Very diuretic-resistant - Continue torsemide, metolazone, carvedilol - Edema contributing to poor wound healing. Elevate leg as much as tolerated out of bed. - No additional diuretics at this time due to LELIA. (3) Chronic indwelling Mckeon catheter Current Visit: Yes Status: Acute Code(s): Z96.0 - PRESENCE OF UROGENITAL IMPLANTS SNOMED Code(s): 623520066 Comment: - Changed 07/26/19 - Functioning properly. (4) LELIA (acute kidney injury) Current Visit: No Status: Acute Priority: High Code(s): N17.9 - ACUTE KIDNEY FAILURE, UNSPECIFIED SNOMED Code(s): 98905226 Comment: - Acute on Chronic. -Creatinine above baseline, may be pre-renal or ATN due to Vancomycin - Continue Diuretics, but no additonal doses. -Will monitor. (5) Iron deficiency anemia Current Visit: No Status: Acute Priority: High Code(s): D50.9 - IRON DEFICIENCY ANEMIA, UNSPECIFIED SNOMED Code(s): 89139095 Comment: - Hemoglobin around 7 - [employer], refuses transfusion - May benefit from IV iron for CHF and Anemia when not actively infected. (6) CAD (coronary artery disease) Current Visit: No Status: Chronic Code(s): I25.10 - ATHSCL HEART DISEASE OF [place] CORONARY ARTERY W/O ANG PCTRS SNOMED Code(s): 98213344 Comment: - Aspirin resumed. - Continue carvedilol, atorvastatin - No sign of ACS (7) COPD (chronic obstructive pulmonary disease) Current Visit: No Status: Chronic Code(s): J44.9 - CHRONIC OBSTRUCTIVE PULMONARY DISEASE, UNSPECIFIED SNOMED Code(s): 95254946 Comment: - Not in exacerbation - Continue Dulera, Spiriva (8) CVA (cerebral vascular accident) Current Visit: No Status: Chronic Code(s): I63.9 - CEREBRAL INFARCTION, UNSPECIFIED SNOMED Code(s): 910992224 Comment: - History - Continue plavix and ASA - Overnight event not related to CVA per Neurology - F/U outpatient opthalmologist. (9) HLD (hyperlipidemia) Current Visit: No Status: Chronic Code(s): E78.5 - HYPERLIPIDEMIA, UNSPECIFIED SNOMED Code(s): 26063813 Comment: - Continue lipitor once home meds updated. (10) HTN (hypertension) Current Visit: No Status: Chronic Onset Date: 06/23/14 Code(s): I10 - ESSENTIAL (PRIMARY) HYPERTENSION SNOMED Code(s): 54557394 Comment: - Normotensive - Continue carvedilol and diuretics. (11) Peripheral vascular disease Current Visit: No Status: Chronic Code(s): I73.9 - PERIPHERAL VASCULAR DISEASE, UNSPECIFIED SNOMED Code(s): 734665548 Comment: - Continue ASA and lipitor - FAY 04/14/19 no significant stenosis. - Continue gabapentin 1200 mg HS - Venous insufficiency likely contributing, elevate legs. (12) DVT prophylaxis Current Visit: No Status: Acute Code(s): [id number] - SNOMED Code(s): 341417718 Comment: - HSQ Status and Disposition: Inpatient. OR today for I&D. Would benefit from PMRU admission at d/c if possible as she will not consider going to another rehab.
--- NOTE | 2019-07-28 15:55 | PN ---
Subjective Date of Service: 07/28/19 Length of Stay: 4 Days Neurology is following for the management and evaluation of visual disturbance of unclear etiology. ] Interval History: She is sitting comfortable today with a friend at bedside. She is s/p right I& D yesterday. The blurred vision has not changed. It did not get worse and not any better. She denied any headaches. She denied any retro-orbital pain. The Levaquin was discontinued today. Review of Systems: Denied CP, SOB, or palpitations. Family History: Unchanged from Admission Social History: Unchanged from Admission Past Medical History: Unchanged from Admission Objective Active Medications: Acetaminophen (Tylenol Tab*) 650 mg PO Q4H PRN PRN Reason: MILD PAIN or TEMP > 100.4 Last Admin: 07/28/19 01:07 Dose: 650 mg Albuterol/Ipratropium (Duoneb (Albuterol 2.5 Mg/Ipratropium 0.5 Mg)) 1 neb INH RT.[id number] AWAKE PRN PRN Reason: sob/wheexing Aspirin (Aspirin 81 Mg Chew Tab*) 81 mg PO DAILY [facility] Last Admin: 07/28/19 07:50 Dose: 81 mg Atorvastatin Calcium (Lipitor*) 20 mg PO DAILY [facility] Last Admin: 07/28/19 07:50 Dose: 20 mg Carvedilol (Coreg Tab*) 3.125 mg PO BID [facility] Last Admin: 07/28/19 07:50 Dose: 3.125 mg Cyclobenzaprine HCl (Flexeril Tab*) 10 mg PO BID PRN PRN Reason: SPASMS Last Admin: 07/26/19 15:10 Dose: 10 mg Dextrose (Dextrose 50% Vial 50 Ml*) 25 ml IV PUSH .FOR FS < 60 - SS PRN PRN Reason: FS < 60 Docusate Sodium (Colace Cap*) 200 mg PO DAILY PRN PRN Reason: CONSTIPATION Fentanyl (Duragesic Patch 25 Mcg/Hr*) 25 mcg TRANSDERM Q72H [facility] Last Admin: 07/27/19 20:44 Dose: 25 mcg Gabapentin (Neurontin Cap(*)) 1,200 mg PO BEDTIME [facility] Last Admin: 07/27/19 20:33 Dose: 1,200 mg Heparin Sodium (Porcine) (Heparin Flush Port (Ivad)) 5 ml FLUSH DAILY [facility]; Protocol Last Admin: 07/28/19 08:06 Dose: Not Given Heparin Sodium (Porcine) (Heparin Vial(*)) 5,000 units SUBCUT Q8HR [facility] Last Admin: 07/28/19 13:10 Dose: 5,000 units Aztreonam 1 gm/ Sodium (Chloride) 50 mls @ 200 mls/hr IVPB Q8H [facility] Insulin Glargine (Lantus(*)) 10 units SUBCUT Q24H [facility] Last Admin: 07/27/19 23:23 Dose: 10 units Insulin Human Lispro (Humalog*) 0 units SUBCUT ACHS [facility]; Protocol Last Admin: 07/28/19 13:09 Dose: 6 units Melatonin (Melatonin) 3 mg PO BEDTIME [facility] Last Admin: 07/27/19 20:34 Dose: 3 mg Metolazone (Zaroxolyn Tab*) 10 mg PO DAILY@0830 [facility] Last Admin: 07/28/19 07:50 Dose: 10 mg Mometasone Furoate/Formoterol Fumar (Dulera 100/5 Mdi*) 2 puff INH DAILY [facility] Last Admin: 07/28/19 08:17 Dose: 2 puff Morphine Sulfate (Morphine Inj (Syringe))*) 2 mg IV Q4H PRN PRN Reason: PAIN - SEVERE Last Admin: 07/27/19 23:08 Dose: 2 mg Ondansetron HCl (Zofran Inj*) 4 mg IV Q4H PRN PRN Reason: NAUSEA/VOMITING Last Admin: 07/25/19 23:15 Dose: 4 mg Oxycodone/Acetaminophen (Percocet 5/325 Tab*) 1 tab PO Q4H PRN PRN Reason: PAIN - MODERATE Last Admin: 07/28/19 06:50 Dose: 1 tab Pharmacy Consult (Vancomycin Per Pharmacy*) 1 note FOLLOW UP .VANC PER PHARMACY [facility]; Protocol Pharmacy Consult (Vancomycin Random Level*) 1 note FOLLOW UP 0600 ONE Stop: 07/30/19 06:01 Pharmacy Profile Note (Fentanyl Patch Check Q Shift) 1 note FOLLOW UP 0700, 1900 [facility] Last Admin: 07/28/19 06:53 Dose: 1 note Polyethylene Glycol/Electrolytes (Miralax*) 17 gm PO BID [facility] Last Admin: 07/28/19 07:50 Dose: 17 gm Pramipexole Dihydrochloride (Mirapex Tab*) 0.5 mg PO BEDTIME [facility] Last Admin: 07/27/19 23:23 Dose: 0.5 mg Prochlorperazine (Compazine Tab*) 10 mg PO Q6H PRN PRN Reason: NAUSEA Last Admin: 07/26/19 06:39 Dose: 10 mg Senna (Senokot 8.6 Mg Tab*) 1 tab PO DAILY PRN PRN Reason: CONSTIPATION Sertraline HCl (Zoloft*) 50 mg PO DAILY [facility] Last Admin: 07/28/19 07:50 Dose: 50 mg Temazepam (Restoril Cap*) 15 mg PO BEDTIME PRN PRN Reason: INSOMNIA Tiotropium [place] (Spiriva Respimat 2.5 Mcg) 2 puff INH DAILY [facility] Last Admin: 07/28/19 08:18 Dose: 2 puff Torsemide (Demadex*) 100 mg PO BID [facility] Last Admin: 07/28/19 07:50 Dose: 100 mg Vital Signs 07/28/19 07/28/19 07/28/19 08:33 08:50 12:15 Temperature 97.2 F Pulse Rate 60 68 Respiratory 16 18 16 Rate Blood Pressure 99/58 132/68 (mmHg) O2 Sat by Pulse 95 99 Oximetry Intake and Output Last 24 Hours 07/26/19 07/27/19 07/28/19 07/29/19 06:59 06:59 06:59 06:59 Intake Total 1678 1730 2600 200 Output Total 1425 2175 2200 Balance 253 -445 400 200 Weight 159 lb 9 oz Intake: IV Fluids 135 1800 Iron Sucrose 110 LR 1800 NS (0.9%) 25 IVPB 283 ABX - VANCOMYCIN 283 Oral 1260 1730 800 200 Output: Mckeon 1400 2175 2200 Emesis 25 Other: # Bowel Movements 1 Estimated Stool Amount Medium Oxygen Devices in Use Now: Nasal Cannula Neurology Exam: General: chronically ill appearing female in no distress. HEENT: Normocephelic/atraumatic, sclera anicteric, mucous membranes moist. No jaw claudication or superficial temporal artery tenderness. Neurological Findings: Awake, alert, and oriented to person, place, and time. Very pleasant. PERRL, corneal haziness. No change in visual acuity. Moves all extremities to command. Result Diagrams: 07/28/19 06:25 07/28/19 06:25 Additional Lab and Data: Laboratory Tests 04/24/19 07/25/19 07/25/19 17:32 05:30 05:30 WBC 14.7 H Hgb 7.2 L Hct 24 L Plt Count 424 Sodium 126 L Potassium 4.0 Chloride 92 L Carbon Dioxide 27 BUN 57 H Creatinine 2.40 H Glucose 161 H C-Reactive Protein 50.47 H Microbiology and Other Data: Microbiology 07/24/19 17:12 Aerobic Blood Culture - Preliminary Blood Venous No Growth Day 1 Anaerobic Blood Culture - Preliminary No Growth Day 1 Diagnostic Imaging: Exam Date: 04/14/19 - VL ANK/BRACHIAL INDICES Ankle-brachial indices: Right: Value (SBP) Index Brachial: 153 Posterior tibialis: 171 1.07 Dorsalis pedis: 161 1.01 Digit: 158 0.99 Doppler waveforms (acquired at rest): In the interrogated lower extremity arteries, Doppler waveforms are triphasic in the right lower extremity. Volume pulse recordings (acquired at rest): Volume pulse recordings, measured at the right ankle, measures 31 mm. IMPRESSION: No evidence of claudication or significant arterial insufficiency in the right lower extremity by vascular ultrasound [facility] standards. Assessment/Plan 1. Acute visual disturbance of unclear etiology- The description of "blurry vision" with no complete visual blindness in a patient with history of proliferative diabetic retinopathy and retinal edema, is not consistent with stroke. - Follow-up with ophthalmology on 08/09/2019. - Levaquin was discontinued. If symptoms improve, then this was the most likely culprit. - Other possibilities include nonartertic ischemic optic neuropathy in the setting of hypotension and anemia. - She has no headache, jaw claudication, or STA tenderness- so GCA is unlikely. Her ESR has always been elevated in the past, therefore, it will not help exclude GCA. If her vision worsens, or she develops headaches, start her on steroid therapy ( prednisone 60 mg daily) and arrange an ophthalmology appointment sooner than . I will sign off. Please contact me for any questions or concerns.
[2019-07-28] MEDS: Insulin GLARGINE(*) 1 UNITS UNIT SUBCUT SCH (20:25)
[2019-07-28] MEDS: Aztreonam (*) 1 GM in NS 0.9% 50 ML* 50 ML IVPB SCH (20:26)
[2019-07-28] MEDS: Gabapentin CAP(*) 400 MG PO SCH (22:07)
[2019-07-28] MEDS: Morphine INJ* 2 MG/ML 1 ML SYRINGE (TWO MG - NEW SYRINGE VERSION) IV PRN (22:08)
[2019-07-28] MEDS: Melatonin 3 MG TAB PO SCH (22:08)
[2019-07-28] MEDS: Pramipexole TAB* 0.5 MG PO SCH (22:25)
[2019-07-29] MEDS: Aztreonam (*) 1 GM in NS 0.9% 50 ML* 50 ML IVPB SCH ×3 (03:32→20:14)
[2019-07-29] MEDS: Heparin VIAL(*) 5000 UNITS/ML VIAL (FIVE THOUSAND) SUBCUT SCH ×3 (05:24→22:21)
[2019-07-29] MEDS: oxyCODONE/Acetamin 5/325 MG* TAB PO PRN ×3 (05:25→23:37)
[2019-07-29 05:45] LABS: Calcium 6.5 mg/dL (8.6-10.3); EGFR African American 19.4 (>60); Magnesium 1.8 mg/dL (1.9-2.7); Potassium 4.2 mmol/L (3.5-5.0)
[2019-07-29] MEDS: fentaNYL Patch Check Q Shift 1 NOTE FOLLOW UP SCH ×2 (06:44→18:47)
[2019-07-29 06:51] LABS: ABS Eosinophils 0.3 10^3/ul (0-0.6); ABS Lymphocytes 1.2 10^3/ul (1.0-4.8); ABS Monocytes 1.6 10^3/ul (0-0.8); Eosinophil % 1.8 %; Hematocrit 23 % (35-47); Large Platelets Present; Lymphocyte % 6.9 %; Mean Corpuscular HGB Conc 30 g/dL (31-36); Mean Corpuscular Hemoglobin 22 pg (27-31); Mean Corpuscular Volume 73 fL (80-97); Mean Platelet Volume 8.2 fL (7.4-10.4); Nucleated Red Blood Cells % 0.1; Platelet Count 425 10^3/uL (150-450); Red Blood Count 3.17 10^6 /uL (3.70-4.87); Red Cell Distribution Width 28 % (10-15); White Blood Count 17.1 10^3/uL (3.5-10.8)
[2019-07-29] MEDS ORDERED: Magnesium Sulfate 2 GM IV* 2 GM/50 ML BAG IVPB ONE (07:00)
[2019-07-29] MEDS ORDERED: Dextrose 50% VIAL 50 ml IV PUSH PRN (07:01)
[2019-07-29] MEDS: Insulin LISPRO* 1 UNITS UNIT SUBCUT SCH ×7 (09:26→22:25)
[2019-07-29] MEDS: Carvedilol TAB* 3.125 MG PO SCH ×2 (09:27→22:20)
[2019-07-29] MEDS: Sertraline* 50 MG TAB PO SCH (09:27)
[2019-07-29] MEDS: Polyethylene Glycol 3350* 17 GM PACKET PO SCH ×2 (09:27→22:25)
[2019-07-29] MEDS: Metolazone TAB* 5 MG PO SCH (09:27)
[2019-07-29] MEDS: Atorvastatin* 20 MG TAB PO SCH (09:27)
[2019-07-29] MEDS: Aspirin 81 mg CHEW TAB* 81 MG TAB.CHEW PO SCH (09:27)
[2019-07-29] MEDS: Torsemide TAB* 100 MG PO SCH ×2 (09:27→22:20)
--- NOTE | 2019-07-29 11:10 | PN ---
Progress Note - Progress Note Date of Service: 07/29/19 SOAP: Subjective: Pt is doing well. pain is controlled. Denies N/T, F/C or CP/SOB Objective: PE- 59 y/o wdwn F NAD A&Ox3 RLE- dressing and wound vacs in place and functioning, calf soft NT, F/E toes, NVI Vital Signs Temp Pulse Resp BP Pulse Ox 97.3 F 61 16 126/60 100 07/29/19 07:24 07/29/19 07:24 07/29/19 07:30 07/29/19 07:24 07/29/19 07:24 Laboratory Results - last 24 hr 07/26/19 07/27/19 07/28/19 15:19 23:12 12:50 WBC RBC Hgb Hct MCV MCH MCHC RDW Plt Count MPV Neut % (Auto) Lymph % (Auto) [place] % (Auto) Eos % (Auto) Baso % (Auto) Absolute Neuts (auto) Absolute Lymphs (auto) Absolute Monos (auto) Absolute Eos (auto) Absolute Basos (auto) Absolute Nucleated RBC Nucleated RBC % Large Platelets Sodium Potassium Chloride Carbon Dioxide Anion Gap BUN Creatinine Est GFR ( Amer) Est GFR (Non-Af Amer) BUN/Creatinine Ratio Glucose POC Glucose (mg/dL) 289 H 296 H Calcium Magnesium Urine Color Yellow Urine Appearance Turbid Urine pH 5.0 Ur Specific [place] 1.009 L Urine Protein 2+(100 mg/dl) A Urine Ketones Negative Urine Blood 1+ A Urine Nitrate Negative Urine Bilirubin Negative Urine Urobilinogen Negative Ur Leukocyte Esterase 3+ A Urine WBC (Auto) 3+(>20/hpf) A Urine RBC (Auto) Trace(0-2/hpf) Ur Squamous Epith Cells Present A Urine Bacteria Absent Urine Yeast Present A Urine Glucose 2+(150 mg/dl) A 07/28/19 07/28/19 07/29/19 17:37 21:57 05:00 WBC 17.1 H RBC 3.17 L Hgb 7.0 L Hct 23 L MCV 73 L MCH 22 L MCHC 30 L RDW 28 H Plt Count 425 MPV 8.2 Neut % (Auto) 81.9 Lymph % (Auto) 6.9 [place] % (Auto) 9.3 Eos % (Auto) 1.8 Baso % (Auto) 0.1 Absolute Neuts (auto) 14.0 H Absolute Lymphs (auto) 1.2 Absolute Monos (auto) 1.6 H Absolute Eos (auto) 0.3 Absolute Basos (auto) 0.0 Absolute Nucleated RBC 0.0 Nucleated RBC % 0.1 Large Platelets Present Sodium Potassium Chloride Carbon Dioxide Anion Gap BUN Creatinine Est GFR ( Amer) Est GFR (Non-Af Amer) BUN/Creatinine Ratio Glucose POC Glucose (mg/dL) 359 H 274 H Calcium Magnesium Urine Color Urine Appearance Urine pH Ur Specific [place] Urine Protein Urine Ketones Urine Blood Urine Nitrate Urine Bilirubin Urine Urobilinogen Ur Leukocyte Esterase Urine WBC (Auto) Urine RBC (Auto) Ur Squamous Epith Cells Urine Bacteria Urine Yeast Urine Glucose 07/29/19 05:00 WBC RBC Hgb Hct MCV MCH MCHC RDW Plt Count MPV Neut % (Auto) Lymph % (Auto) [place] % (Auto) Eos % (Auto) Baso % (Auto) Absolute Neuts (auto) Absolute Lymphs (auto) Absolute Monos (auto) Absolute Eos (auto) Absolute Basos (auto) Absolute Nucleated RBC Nucleated RBC % Large Platelets Sodium 134 L Potassium 4.2 Chloride 93 L Carbon Dioxide 32 Anion Gap 9 BUN 87 H Creatinine 3.00 H Est GFR ( Amer) 19.4 Est GFR (Non-Af Amer) 16.0 BUN/Creatinine Ratio 29.0 H Glucose 150 H POC Glucose (mg/dL) Calcium 6.5 L Magnesium 1.8 L Urine Color Urine Appearance Urine pH Ur Specific [place] Urine Protein Urine Ketones Urine Blood Urine Nitrate Urine Bilirubin Urine Urobilinogen Ur Leukocyte Esterase Urine WBC (Auto) Urine RBC (Auto) Ur Squamous Epith Cells Urine Bacteria Urine Yeast Urine Glucose Assessment: []Right leg infection s/p partial calcanectomy, right heel with excision of ulcer and VAC dressing and excision of eschar over right calf with VAC dressing. Plan: Continue to monitor the wound vacs. Continue with current pain medication ASA for DVT prophylaxis Cont IV ABX
[2019-07-29] MEDS ORDERED: Vancomycin(*) 750 MG in NS 0.9% 250 ML* 250 ML IVPB ONE (13:00)
[2019-07-29] MEDS: Mometasone/Formoter 100/5 MDI INH SCH (13:28)
[2019-07-29] MEDS: SPIRIVA Respimat* (tiotropium) 2.5 mcg/inh Inhaler INH SCH (13:28)
--- NOTE | 2019-07-29 15:14 | PN ---
Subjective Date of Service: 07/29/19 Interval History: Patient is feeling the same as yesterday. Patient has pain in her leg which is intermittently severe. Patient denies F/C, N/V, abdominal pain, diarrhea, dysuria, or other pain. Family History: Unchanged from Admission Social History: Unchanged from Admission Past Medical History: Unchanged from Admission Objective Active Medications: Acetaminophen (Tylenol Tab*) 650 mg PO Q4H PRN PRN Reason: MILD PAIN or TEMP > 100.4 Last Admin: 07/28/19 01:07 Dose: 650 mg Albuterol/Ipratropium (Duoneb (Albuterol 2.5 Mg/Ipratropium 0.5 Mg)) 1 neb INH [id number] AWAKE PRN PRN Reason: sob/wheexing Aspirin (Aspirin 81 Mg Chew Tab*) 81 mg PO DAILY [facility] Last Admin: 07/29/19 09:27 Dose: 81 mg Atorvastatin Calcium (Lipitor*) 20 mg PO DAILY [facility] Last Admin: 07/29/19 09:27 Dose: 20 mg Carvedilol (Coreg Tab*) 3.125 mg PO BID [facility] Last Admin: 07/29/19 09:27 Dose: 3.125 mg Cyclobenzaprine HCl (Flexeril Tab*) 10 mg PO BID PRN PRN Reason: SPASMS Last Admin: 07/26/19 15:10 Dose: 10 mg Dextrose (Dextrose 50% Vial 50 Ml*) 25 ml IV PUSH .FOR FS < 60 - SS PRN PRN Reason: FS < 60 Docusate Sodium (Colace Cap*) 200 mg PO DAILY PRN PRN Reason: CONSTIPATION Fentanyl (Duragesic Patch 25 Mcg/Hr*) 25 mcg TRANSDERM Q72H [facility] Last Admin: 07/27/19 20:44 Dose: 25 mcg Gabapentin (Neurontin Cap(*)) 1,200 mg PO BEDTIME [facility] Last Admin: 07/28/19 22:07 Dose: 1,200 mg Heparin Sodium (Porcine) (Heparin Flush Port (Ivad)) 5 ml FLUSH DAILY [facility]; Protocol Last Admin: 07/29/19 10:50 Dose: 5 ml Heparin Sodium (Porcine) (Heparin Vial(*)) 5,000 units SUBCUT Q8HR [facility] Last Admin: 07/29/19 13:29 Dose: 5,000 units Aztreonam 1 gm/ Sodium (Chloride) 50 mls @ 200 mls/hr IVPB Q8H [facility] Last Admin: 07/29/19 12:39 Dose: 200 mls/hr Insulin Glargine (Lantus(*)) 10 units SUBCUT Q24H [facility] Last Admin: 07/28/19 20:25 Dose: 10 units Insulin Human Lispro (Humalog*) 0 units SUBCUT ACHS [facility]; Protocol Last Admin: 07/29/19 13:28 Dose: 2 units Insulin Human Lispro (Humalog*) 5 units SUBCUT AC [facility] Last Admin: 07/29/19 13:28 Dose: 5 units Melatonin (Melatonin) 3 mg PO BEDTIME [facility] Last Admin: 07/28/19 22:08 Dose: 3 mg Metolazone (Zaroxolyn Tab*) 10 mg PO DAILY@0830 [facility] Last Admin: 07/29/19 09:27 Dose: 10 mg Mometasone Furoate/Formoterol Fumar (Dulera 100/5 Mdi*) 2 puff INH DAILY [facility] Last Admin: 07/29/19 13:28 Dose: 2 puff Morphine Sulfate (Morphine Inj (Syringe))*) 2 mg IV Q4H PRN PRN Reason: PAIN - SEVERE Last Admin: 07/28/19 22:08 Dose: 2 mg Ondansetron HCl (Zofran Inj*) 4 mg IV Q4H PRN PRN Reason: NAUSEA/VOMITING Last Admin: 07/25/19 23:15 Dose: 4 mg Oxycodone/Acetaminophen (Percocet 5/325 Tab*) 1 tab PO Q3H PRN PRN Reason: PAIN - MODERATE Last Admin: 07/29/19 12:42 Dose: 1 tab Pharmacy Consult (Vancomycin Per Pharmacy*) 1 note FOLLOW UP .VANC PER PHARMACY [facility]; Protocol Pharmacy Consult (Vancomycin Random Level*) 1 note FOLLOW UP 0600 ONE Stop: 07/30/19 06:01 Pharmacy Profile Note (Fentanyl Patch Check Q Shift) 1 note FOLLOW UP 0700, 1900 [facility] Last Admin: 07/29/19 06:44 Dose: 1 note Polyethylene Glycol/Electrolytes (Miralax*) 17 gm PO BID [facility] Last Admin: 07/29/19 09:27 Dose: Not Given Pramipexole Dihydrochloride (Mirapex Tab*) 0.5 mg PO BEDTIME [facility] Last Admin: 07/28/19 22:25 Dose: 0.5 mg Prochlorperazine (Compazine Tab*) 10 mg PO Q6H PRN PRN Reason: NAUSEA Last Admin: 07/26/19 06:39 Dose: 10 mg Senna (Senokot 8.6 Mg Tab*) 1 tab PO DAILY PRN PRN Reason: CONSTIPATION Sertraline HCl (Zoloft*) 50 mg PO DAILY [facility] Last Admin: 07/29/19 09:27 Dose: 50 mg Temazepam (Restoril Cap*) 15 mg PO BEDTIME PRN PRN Reason: INSOMNIA Tiotropium [place] (Spiriva Respimat 2.5 Mcg) 2 puff INH DAILY [facility] Last Admin: 07/29/19 13:28 Dose: 2 puff Torsemide (Demadex*) 100 mg PO BID [facility] Last Admin: 07/29/19 09:27 Dose: 100 mg Vital Signs - 8 hr 07/29/19 07/29/19 07/29/19 07:24 07:25 07:30 Temperature 97.3 F Pulse Rate 61 Respiratory 16 16 16 Rate Blood Pressure 126/60 (mmHg) O2 Sat by Pulse 100 Oximetry 07/29/19 07/29/19 11:48 12:42 Temperature 97.3 F Pulse Rate 62 Respiratory 18 18 Rate Blood Pressure 126/64 (mmHg) O2 Sat by Pulse 98 Oximetry Oxygen Devices in Use Now: Nasal Cannula Appearance: Patient is a 59yo female who appears stated age and is sitting in the bed in [facility]. Eyes: No Scleral Icterus, PERRLA Ears/Nose/Mouth/Throat: NL Teeth, Lips, Gums, Clear Oropharnyx, Mucous Membranes Moist Neck: NL Appearance and Movements; NL JVP, Trachea Midline Respiratory: Symmetrical Chest Expansion and Respiratory Effort, Clear to Auscultation Cardiovascular: NL Sounds; No Murmurs; No JVD, RRR, No Edema Abdominal: NL Sounds; No Tenderness; No Distention, No Hepatosplenomegaly Lymphatic: No Cervical Adenopathy Extremities: - - 1+ B/L LE edema. RLE surgically absent below the knee. Skin: No Nodules or Sclerosis, - Neurological: Alert and Oriented x 3, - - Peripheral Neuropathy, No other focal deficits. Result Diagrams: 07/29/19 05:00 07/29/19 05:00 Additional Lab and Data: Laboratory Tests Microbiology and Other Data: Microbiology 07/24/19 17:12 Aerobic Blood Culture - Preliminary Blood Venous No Growth Day 1 Anaerobic Blood Culture - Preliminary No Growth Day 1 Diagnostic Imaging: Exam Date: 04/14/19 - VL ANK/BRACHIAL INDICES Ankle-brachial indices: Right: Value (SBP) Index Brachial: 153 Posterior tibialis: 171 1.07 Dorsalis pedis: 161 1.01 Digit: 158 0.99 Doppler waveforms (acquired at rest): In the interrogated lower extremity arteries, Doppler waveforms are triphasic in the right lower extremity. Volume pulse recordings (acquired at rest): Volume pulse recordings, measured at the right ankle, measures 31 mm. IMPRESSION: No evidence of claudication or significant arterial insufficiency in the right lower extremity by vascular ultrasound [facility] standards. Assess/Plan/Problems-Billing Assessment: Ms. Galarza is a 59 yo F with PMH of DM1, systolic CHF, CKD stage 4, CAD, PVD, HTN, COPD, CVA, peripheral neuropathy, chronic Mckeon; who presented to the ED with c/o worsening RLE wounds and was found to be septic secondary to wound infections. Patient is S/P I&D and is improving. - Patient Problems (1) Diabetic foot infection Current Visit: No Status: Acute Code(s): E11.69 - TYPE 2 DIABETES MELLITUS WITH OTHER SPECIFIED COMPLICATION; L08.9 - LOCAL INFECTION OF THE SKIN AND SUBCUTANEOUS TISSUE, UNSP SNOMED Code(s): 180162183 Comment: - Large wounds to lateral right foot and lateral right calf, both appear infected - Wound care consult - Appreciate Ortho consult; S/P Debridement and wound vac - Appreciate ID consult; Change Antibiotics to Vanco/Aztreonam - Went to OR for I&D on 07/27 with wound vac placement, functioning properly. (2) Chronic systolic congestive heart failure Current Visit: Yes Status: Acute Code(s): I50.22 - CHRONIC SYSTOLIC ( CONGESTIVE) HEART FAILURE SNOMED Code(s): 417169236 Comment: - Slightly fluid overloaded on admission, appears slightly overloaded again today - Echo in April showed EF 35-40% with severe diffuse hypokinesis - Very diuretic-resistant - Continue torsemide, metolazone, carvedilol - Edema contributing to poor wound healing. Elevate leg as much as tolerated out of bed. - No additional diuretics at this time due to LELIA. (3) Chronic indwelling Mckeon catheter Current Visit: Yes Status: Acute Code(s): Z96.0 - PRESENCE OF UROGENITAL IMPLANTS SNOMED Code(s): 970652725 Comment: - Changed 07/26/19 - Functioning properly. (4) LELIA (acute kidney injury) Current Visit: No Status: Acute Priority: High Code(s): N17.9 - ACUTE KIDNEY FAILURE, UNSPECIFIED SNOMED Code(s): 68896118 Comment: - Acute on Chronic. -Creatinine above baseline, may be pre-renal or ATN due to Vancomycin - Continue Diuretics, but no additonal doses. -Will monitor. - Improving (5) Iron deficiency anemia Current Visit: No Status: Acute Priority: High Code(s): D50.9 - IRON DEFICIENCY ANEMIA, UNSPECIFIED SNOMED Code(s): 43388341 Comment: - Hemoglobin around 7 - Jain, refuses transfusion - May benefit from IV iron for CHF and Anemia when not actively infected. (6) CAD (coronary artery disease) Current Visit: No Status: Chronic Code(s): I25.10 - ATHSCL HEART DISEASE OF [place] CORONARY ARTERY W/O ANG PCTRS SNOMED Code(s): 42601018 Comment: - Aspirin resumed. - Continue carvedilol, atorvastatin - No sign of ACS (7) COPD (chronic obstructive pulmonary disease) Current Visit: No Status: Chronic Code(s): J44.9 - CHRONIC OBSTRUCTIVE PULMONARY DISEASE, UNSPECIFIED SNOMED Code(s): 61240161 Comment: - Not in exacerbation - Continue Dulera, Spiriva (8) CVA (cerebral vascular accident) Current Visit: No Status: Chronic Code(s): I63.9 - CEREBRAL INFARCTION, UNSPECIFIED SNOMED Code(s): 644383419 Comment: - History - Continue plavix and ASA - Episode this admission not related to CVA per Neurology - F/U outpatient opthalmologist. (9) HLD (hyperlipidemia) Current Visit: No Status: Chronic Code(s): E78.5 - HYPERLIPIDEMIA, UNSPECIFIED SNOMED Code(s): 80763099 Comment: - Continue lipitor once home meds updated. (10) HTN (hypertension) Current Visit: No Status: Chronic Onset Date: 06/23/14 Code(s): I10 - ESSENTIAL (PRIMARY) HYPERTENSION SNOMED Code(s): 89406118 Comment: - Normotensive - Continue carvedilol and diuretics. (11) Peripheral vascular disease Current Visit: No Status: Chronic Code(s): I73.9 - PERIPHERAL VASCULAR DISEASE, UNSPECIFIED SNOMED Code(s): 259597431 Comment: - Continue ASA and lipitor - FAY 04/14/19 no significant stenosis. - Continue gabapentin 1200 mg HS - Venous insufficiency likely contributing, elevate legs. (12) DVT prophylaxis Current Visit: No Status: Acute Code(s): KGC0524 - SNOMED Code(s): 721911370 Comment: - HSQ Status and Disposition: Inpatient. OR for I&D. Would benefit from RU admission at d/c if possible as she will not consider going to another rehab.
[2019-07-29] MEDS: Pramipexole TAB* 0.5 MG PO SCH (22:17)
[2019-07-29] MEDS: Gabapentin CAP(*) 400 MG PO SCH (22:17)
[2019-07-29] MEDS: Melatonin 3 MG TAB PO SCH (22:20)
[2019-07-29] MEDS: Insulin GLARGINE(*) 1 UNITS UNIT SUBCUT SCH (22:24)
[2019-07-30] MEDS: Aztreonam (*) 1 GM in NS 0.9% 50 ML* 50 ML IVPB SCH ×3 (03:50→20:44)
[2019-07-30] MEDS: Morphine INJ* 2 MG/ML 1 ML SYRINGE (TWO MG - NEW SYRINGE VERSION) IV PRN ×2 (04:07→09:45)
[2019-07-30] MEDS: Heparin VIAL(*) 5000 UNITS/ML VIAL (FIVE THOUSAND) SUBCUT SCH ×2 (05:42→13:35)
[2019-07-30] MEDS ORDERED: Vancomycin Random Level* NOTE FOLLOW UP ONE (06:00)
[2019-07-30 06:24] LABS: ABS Basophils 0.2 10^3/ul (0-0.2); ABS Eosinophils 0.3 10^3/ul (0-0.6); ABS Lymphocytes 1.2 10^3/ul (1.0-4.8); ABS Monocytes 1.6 10^3/ul (0-0.8); ABS Neutrophils 14.9 10^3/ul (1.5-7.7); Calcium 8.2 mg/dL (8.6-10.3); EGFR African American 19.2 (>60); EGFR Non-African American 15.8 (>60); Eosinophil % 1.8 %; Hematocrit 23 % (35-47); Lymphocyte % 6.7 %; Magnesium 2.5 mg/dL (1.9-2.7); Mean Corpuscular HGB Conc 30 g/dL (31-36); Mean Corpuscular Hemoglobin 22 pg (27-31); Mean Corpuscular Volume 73 fL (80-97); Mean Platelet Volume 8.1 fL (7.4-10.4); Nucleated Red Blood Cells % 0.1; Platelet Count 455 10^3/uL (150-450); Potassium 3.3 mmol/L (3.5-5.0); Red Blood Count 3.14 10^6 /uL (3.70-4.87); Red Cell Distribution Width 28 % (10-15); White Blood Count 18.1 10^3/uL (3.5-10.8)
[2019-07-30 06:25] LABS: Vancomycin Random 23.4 mcg/mL
[2019-07-30 06:41] LABS: Microcytosis 1+
[2019-07-30 06:43] LABS: Polychromasia 2+
[2019-07-30] MEDS: fentaNYL Patch Check Q Shift 1 NOTE FOLLOW UP SCH ×2 (07:35→19:53)
--- NOTE | 2019-07-30 09:15 | PN ---
Progress Note - Progress Note Date of Service: 07/30/19 SOAP: Subjective: Pt is doing well. Had some burning pain overnight. Pain controlled this am. Denies F/C, CP/SOB or calf pain Objective: PE- 59 y/o WDWN F NAD, A&Ox3 RLE- dressing c/d/i, wound vacs in place and functioning, calf soft NT, +F/E toes, decreased sensation to light touch distally due to neuropathy, NVI with brisk cap refill Vital Signs Temp Pulse Resp BP Pulse Ox 98.7 F 69 14 122/62 96 07/30/19 08:51 07/30/19 08:51 07/30/19 08:51 07/30/19 08:51 07/30/19 08:51 Active Medications Generic Name Dose Route Start Last Admin Trade Name Freq PRN Reason Stop Dose Admin Acetaminophen 650 mg 07/24/19 18:00 07/28/19 01:07 Tylenol Tab* PO 650 mg Q4H PRN Administration MILD PAIN or TEMP > 100.4 Albuterol/Ipratropium 1 neb 07/24/19 18:00 Duoneb (Albuterol 2.5 Mg/Ipratropium 0.5 Mg) INH [id number] AWAKE PRN sob/wheexing Aspirin 81 mg 07/27/19 18:00 07/29/19 09:27 Aspirin 81 Mg Chew Tab* PO 81 mg DAILY [facility] Administration Atorvastatin Calcium 20 mg 07/25/19 09:00 07/29/19 09:27 Lipitor* PO 20 mg DAILY [facility] Administration Carvedilol 3.125 mg 07/24/19 21:00 07/29/19 22:20 Coreg Tab* PO 3.125 mg BID [facility] Administration Cyclobenzaprine HCl 10 mg 07/26/19 14:13 07/26/19 15:10 Flexeril Tab* PO 10 mg BID PRN Administration SPASMS Dextrose 25 ml 07/24/19 18:10 Dextrose 50% Vial 50 Ml* IV PUSH .FOR FS < 60 - SS PRN FS < 60 Docusate Sodium 200 mg 07/28/19 09:42 Colace Cap* PO DAILY PRN CONSTIPATION Fentanyl 25 mcg 07/27/19 20:00 07/27/19 20:44 Duragesic Patch 25 Mcg/Hr* TRANSDERM 25 mcg Q72H [facility] Administration Gabapentin 1,200 mg 07/24/19 21:00 07/29/19 22:17 Neurontin Cap(*) PO 1,200 mg BEDTIME [facility] Administration Heparin Sodium (Porcine) 5 ml 07/25/19 09:00 07/30/19 09:12 Heparin Flush Port ([place]) FLUSH Not Given DAILY [facility] Protocol Heparin Sodium (Porcine) 5,000 units 07/28/19 06:00 07/30/19 05:42 Heparin Vial(*) SUBCUT 5,000 units Q8HR [facility] Administration Aztreonam 1 gm/ Sodium 50 mls @ 200 mls/hr 07/28/19 20:00 07/30/19 03:50 Chloride IVPB 200 mls/hr Q8H [facility] Administration Insulin Glargine 10 units 07/24/19 19:30 07/29/19 22:24 Lantus(*) SUBCUT 10 units Q24H [facility] Administration Insulin Human Lispro 0 units 07/24/19 21:00 07/29/19 22:25 Humalog* SUBCUT 6 units ACHS [facility] Administration Protocol Insulin Human Lispro 5 units 07/29/19 07:30 07/29/19 18:07 Humalog* SUBCUT 5 units AC [facility] Administration Melatonin 3 mg 07/24/19 21:00 07/29/19 22:20 Melatonin PO 3 mg BEDTIME [facility] Administration Metolazone 10 mg 07/25/19 08:30 07/29/19 09:27 Zaroxolyn Tab* PO 10 mg DAILY@0830 [facility] Administration Mometasone Furoate/Formoterol Fumar 2 puff 07/25/19 09:00 07/29/19 13:28 Dulera 100/5 Mdi* INH 2 puff DAILY [facility] Administration Morphine Sulfate 2 mg 07/24/19 18:00 07/30/19 04:07 Morphine Inj (Syringe))* IV 2 mg Q4H PRN Administration PAIN - SEVERE Ondansetron HCl 4 mg 07/24/19 18:00 07/25/19 23:15 Zofran Inj* IV 4 mg Q4H PRN Administration NAUSEA/VOMITING Oxycodone/Acetaminophen 1 tab 07/29/19 11:42 07/29/19 23:37 Percocet 5/325 Tab* PO 1 tab Q3H PRN Administration PAIN - MODERATE Pharmacy Consult 1 note 07/24/19 19:00 Vancomycin Per Pharmacy* FOLLOW UP .VANC PER PHARMACY [facility] Protocol Pharmacy Consult 1 note 07/31/19 06:00 Vancomycin Random Level* FOLLOW UP 07/31/19 06:01 0600 ONE Pharmacy Profile Note 1 note 07/25/19 07:00 07/30/19 07:35 Fentanyl Patch Check Q Shift FOLLOW UP 1 note 0700,1900 [facility] Administration Polyethylene Glycol/Electrolytes 17 gm 07/24/19 21:00 07/29/19 22:25 Miralax* PO Not Given BID [facility] Pramipexole Dihydrochloride 0.5 mg 07/24/19 21:00 07/29/19 22:17 Mirapex Tab* PO 0.5 mg BEDTIME [facility] Administration Prochlorperazine 10 mg 07/24/19 18:07 07/26/19 06:39 Compazine Tab* PO 10 mg Q6H PRN Administration NAUSEA Senna 1 tab 07/28/19 09:42 Senokot 8.6 Mg Tab* PO DAILY PRN CONSTIPATION Sertraline HCl 50 mg 07/25/19 09:00 07/29/19 09:27 Zoloft* PO 50 mg DAILY [facility] Administration Temazepam 15 mg 07/24/19 23:46 Restoril Cap* PO BEDTIME PRN INSOMNIA Tiotropium [place] 2 puff 07/25/19 09:00 07/29/19 13:28 Spiriva Respimat 2.5 Mcg INH 2 puff DAILY [facility] Administration Torsemide 100 mg 07/24/19 21:00 07/29/19 22:20 Demadex* PO 100 mg BID [facility] Administration Laboratory Results - last 24 hr 07/29/19 07/29/19 07/29/19 10:40 12:43 16:41 WBC RBC Hgb Hct MCV MCH MCHC RDW Plt Count MPV Neut % (Auto) Lymph % (Auto) [place] % (Auto) Eos % (Auto) Baso % (Auto) Absolute Neuts (auto) Absolute Lymphs (auto) Absolute Monos (auto) Absolute Eos (auto) Absolute Basos (auto) Absolute Nucleated RBC Nucleated RBC % Polychromasia Hypochromasia Anisocytosis Microcytosis Sodium Potassium Chloride Carbon Dioxide Anion Gap BUN Creatinine Est GFR ( Amer) Est GFR (Non-Af Amer) BUN/Creatinine Ratio Glucose POC Glucose (mg/dL) 155 H 235 H Calcium Magnesium Random Vancomycin 15.8 07/30/19 07/30/19 07/30/19 05:50 05:50 08:39 WBC 18.1 H RBC 3.14 L Hgb 7.0 L Hct 23 L MCV 73 L MCH 22 L MCHC 30 L RDW 28 H Plt Count 455 H MPV 8.1 Neut % (Auto) 81.9 Lymph % (Auto) 6.7 [place] % (Auto) 8.7 Eos % (Auto) 1.8 Baso % (Auto) 0.9 Absolute Neuts (auto) 14.9 H Absolute Lymphs (auto) 1.2 Absolute Monos (auto) 1.6 H Absolute Eos (auto) 0.3 Absolute Basos (auto) 0.2 Absolute Nucleated RBC 0.0 Nucleated RBC % 0.1 Polychromasia 2+ Hypochromasia 1+ Anisocytosis 2+ Microcytosis 1+ Sodium 136 Potassium 3.3 L Chloride 92 L Carbon Dioxide 34 H Anion Gap 10 BUN 97 H Creatinine 3.03 H Est GFR ( Amer) 19.2 Est GFR (Non-Af Amer) 15.8 BUN/Creatinine Ratio 32.0 H Glucose 177 H POC Glucose (mg/dL) 181 H Calcium 8.2 L Magnesium 2.5 Random Vancomycin 23.4 ] Assessment: []Right leg infection s/p partial calcanectomy, right heel with excision of ulcer and VAC dressing and excision of eschar over right calf with VAC dressing. Plan: Continue to monitor the wound vacs. Continue with current pain medication ASA for DVT prophylaxis Cont IV ABX ESR and CRP tomorrow am, cont to monitor WBC count
[2019-07-30] MEDS: Mometasone/Formoter 100/5 MDI INH SCH (09:25)
[2019-07-30] MEDS: Polyethylene Glycol 3350* 17 GM PACKET PO SCH (09:25)
[2019-07-30] MEDS: SPIRIVA Respimat* (tiotropium) 2.5 mcg/inh Inhaler INH SCH (09:25)
[2019-07-30] MEDS: Carvedilol TAB* 3.125 MG PO SCH (09:26)
[2019-07-30] MEDS: Sertraline* 50 MG TAB PO SCH (09:26)
[2019-07-30] MEDS: Metolazone TAB* 5 MG PO SCH (09:26)
[2019-07-30] MEDS: Atorvastatin* 20 MG TAB PO SCH (09:26)
[2019-07-30] MEDS: Torsemide TAB* 100 MG PO SCH (09:26)
[2019-07-30] MEDS: Aspirin 81 mg CHEW TAB* 81 MG TAB.CHEW PO SCH (09:26)
[2019-07-30] MEDS: Insulin LISPRO* 1 UNITS UNIT SUBCUT SCH ×6 (09:32→16:46)
--- NOTE | 2019-07-30 10:13 | PN ---
Progress Note - Progress Note Date of Service: 07/30/19 Note: I saw and examined Michelle. Please see Paula Anderson's note for full details. I performed a VAC change on her right heel wound which measured 6x6cm and 0.5cm depth. No purulence. healthy appearing granulation tissue. I removed the calf VAC and replaced with xeroform and DSD as very shallow. Also healthy granulation tissue and no purulence. Rivera Shin MD
[2019-07-30] MEDS: oxyCODONE/Acetamin 5/325 MG* TAB PO PRN ×2 (11:20→20:07)
[2019-07-30] MEDS ORDERED: Metoclopramide IV* 5 MG/ML 2 ML VIAL IV SLOW PU ONE (12:04)
--- NOTE | 2019-07-30 12:08 | PN ---
Subjective Date of Service: 07/30/19 Interval History: Orthopedic team changed wound vac at bedside today but patient is with too much bleeding for new vac to seal. At time of evaluation, patient is having bleeding from right heel. Patient c/o right heel pain but tells me pain medications do help. Right calf wound is tingling per patient, which is minimally improved from yesterday per patient. Denies fever/chills, chest pain, difficulty breathing, abd pain. Family History: Unchanged from Admission Social History: Unchanged from Admission Past Medical History: Unchanged from Admission Objective Active Medications: Acetaminophen (Tylenol Tab*) 650 mg PO Q4H PRN PRN Reason: MILD PAIN or TEMP > 100.4 Last Admin: 07/28/19 01:07 Dose: 650 mg Albuterol/Ipratropium (Duoneb (Albuterol 2.5 Mg/Ipratropium 0.5 Mg)) 1 neb INH [id number] AWAKE PRN PRN Reason: sob/wheexing Aspirin (Aspirin 81 Mg Chew Tab*) 81 mg PO DAILY [facility] Last Admin: 07/30/19 09:26 Dose: 81 mg Atorvastatin Calcium (Lipitor*) 20 mg PO DAILY [facility] Last Admin: 07/30/19 09:26 Dose: 20 mg Carvedilol (Coreg Tab*) 3.125 mg PO BID [facility] Last Admin: 07/30/19 09:26 Dose: 3.125 mg Cyclobenzaprine HCl (Flexeril Tab*) 10 mg PO BID PRN PRN Reason: SPASMS Last Admin: 07/26/19 15:10 Dose: 10 mg Dextrose (Dextrose 50% Vial 50 Ml*) 25 ml IV PUSH .FOR FS < 60 - SS PRN PRN Reason: FS < 60 Docusate Sodium (Colace Cap*) 200 mg PO DAILY PRN PRN Reason: CONSTIPATION Fentanyl (Duragesic Patch 25 Mcg/Hr*) 25 mcg TRANSDERM Q72H [facility] Last Admin: 07/27/19 20:44 Dose: 25 mcg Gabapentin (Neurontin Cap(*)) 1,200 mg PO BEDTIME [facility] Last Admin: 07/29/19 22:17 Dose: 1,200 mg Heparin Sodium (Porcine) (Heparin Flush Port (Ivad)) 5 ml FLUSH DAILY [facility]; Protocol Last Admin: 07/30/19 09:12 Dose: Not Given Heparin Sodium (Porcine) (Heparin Vial(*)) 5,000 units SUBCUT Q8HR [facility] Last Admin: 07/30/19 05:42 Dose: 5,000 units Aztreonam 1 gm/ Sodium (Chloride) 50 mls @ 200 mls/hr IVPB Q8H [facility] Last Admin: 07/30/19 03:50 Dose: 200 mls/hr Insulin Glargine (Lantus(*)) 10 units SUBCUT Q24H [facility] Last Admin: 07/29/19 22:24 Dose: 10 units Insulin Human Lispro (Humalog*) 0 units SUBCUT ACHS [facility]; Protocol Last Admin: 07/30/19 09:32 Dose: 2 units Insulin Human Lispro (Humalog*) 5 units SUBCUT AC [facility] Last Admin: 07/30/19 09:33 Dose: 5 units Melatonin (Melatonin) 3 mg PO BEDTIME [facility] Last Admin: 07/29/19 22:20 Dose: 3 mg Metolazone (Zaroxolyn Tab*) 10 mg PO DAILY@0830 [facility] Last Admin: 07/30/19 09:26 Dose: 10 mg Mometasone Furoate/Formoterol Fumar (Dulera 100/5 Mdi*) 2 puff INH DAILY [facility] Last Admin: 07/30/19 09:25 Dose: 2 puff Morphine Sulfate (Morphine Inj (Syringe))*) 2 mg IV Q4H PRN PRN Reason: PAIN - SEVERE Last Admin: 07/30/19 09:45 Dose: 2 mg Ondansetron HCl (Zofran Inj*) 4 mg IV Q4H PRN PRN Reason: NAUSEA/VOMITING Last Admin: 07/25/19 23:15 Dose: 4 mg Oxycodone/Acetaminophen (Percocet 5/325 Tab*) 1 tab PO Q3H PRN PRN Reason: PAIN - MODERATE Last Admin: 07/30/19 11:20 Dose: 1 tab Pharmacy Consult (Vancomycin Per Pharmacy*) 1 note FOLLOW UP .VANC PER PHARMACY [facility]; Protocol Pharmacy Consult (Vancomycin Random Level*) 1 note FOLLOW UP 0600 ONE Stop: 07/31/19 06:01 Pharmacy Profile Note (Fentanyl Patch Check Q Shift) 1 note FOLLOW UP 0700, 1900 [facility] Last Admin: 07/30/19 07:35 Dose: 1 note Polyethylene Glycol/Electrolytes (Miralax*) 17 gm PO BID [facility] Last Admin: 07/30/19 09:25 Dose: 17 gm Pramipexole Dihydrochloride (Mirapex Tab*) 0.5 mg PO BEDTIME [facility] Last Admin: 07/29/19 22:17 Dose: 0.5 mg Prochlorperazine (Compazine Tab*) 10 mg PO Q6H PRN PRN Reason: NAUSEA Last Admin: 07/26/19 06:39 Dose: 10 mg Senna (Senokot 8.6 Mg Tab*) 1 tab PO DAILY PRN PRN Reason: CONSTIPATION Sertraline HCl (Zoloft*) 50 mg PO DAILY [facility] Last Admin: 07/30/19 09:26 Dose: 50 mg Temazepam (Restoril Cap*) 15 mg PO BEDTIME PRN PRN Reason: INSOMNIA Tiotropium Comins (Spiriva Respimat 2.5 Mcg) 2 puff INH DAILY [facility] Last Admin: 07/30/19 09:25 Dose: 2 puff Torsemide (Demadex*) 100 mg PO BID [facility] Last Admin: 07/30/19 09:26 Dose: 100 mg Vital Signs - 8 hr 07/30/19 07/30/19 07/30/19 04:07 05:33 07:12 Temperature Pulse Rate Respiratory 16 16 14 Rate Blood Pressure (mmHg) O2 Sat by Pulse Oximetry 07/30/19 07/30/19 07/30/19 08:51 09:45 11:20 Temperature 98.7 F Pulse Rate 69 Respiratory 14 16 16 Rate Blood Pressure 122/62 (mmHg) O2 Sat by Pulse 96 Oximetry Oxygen Devices in Use Now: Nasal Cannula Appearance: White female who appears older than stated age, laying in bed, appearing in NAD Eyes: No Scleral Icterus, - - PERRL Ears/Nose/Mouth/Throat: Mucous Membranes Moist Neck: NL Appearance and Movements; NL JVP Respiratory: Symmetrical Chest Expansion and Respiratory Effort, - - crackles in bilateral lung bases Cardiovascular: NL Sounds; No Murmurs; No JVD, RRR Abdominal: - - abd soft, nontender, nondistended Extremities: No Edema, No Clubbing, Cyanosis Skin: - - skin is warm and dry Neurological: Alert and Oriented x 3 Result Diagrams: 07/30/19 05:50 07/30/19 05:50 Additional Lab and Data: Laboratory Tests Microbiology and Other Data: Microbiology 07/24/19 17:12 Aerobic Blood Culture - Preliminary Blood Venous No Growth Day 1 Anaerobic Blood Culture - Preliminary No Growth Day 1 Diagnostic Imaging: Exam Date: 04/14/19 - VL ANK/BRACHIAL INDICES Ankle-brachial indices: Right: Value (SBP) Index Brachial: 153 Posterior tibialis: 171 1.07 Dorsalis pedis: 161 1.01 Digit: 158 0.99 Doppler waveforms (acquired at rest): In the interrogated lower extremity arteries, Doppler waveforms are triphasic in the right lower extremity. Volume pulse recordings (acquired at rest): Volume pulse recordings, measured at the right ankle, measures 31 mm. IMPRESSION: No evidence of claudication or significant arterial insufficiency in the right lower extremity by vascular ultrasound FAY standards. Assess/Plan/Problems-Billing Assessment: Ms. Galarza is a 59 yo F with PMH of DM1, systolic CHF, CKD stage 4, CAD, PVD, HTN, COPD, CVA, peripheral neuropathy, chronic Mckeon; who presented to the ED with c/o worsening RLE wounds and was found to be septic secondary to wound infections. Patient is S/P I&D and partial calcanectomy on 07/27/19. - Patient Problems (1) Diabetic foot infection Current Visit: No Status: Acute Code(s): E11.69 - TYPE 2 DIABETES MELLITUS WITH OTHER SPECIFIED COMPLICATION; L08.9 - LOCAL INFECTION OF THE SKIN AND SUBCUTANEOUS TISSUE, UNSP SNOMED Code(s): 844854531 Comment: - Large wounds to lateral right foot and lateral right calf, both appear infected - Wound care consult - Appreciate Ortho consult. S/p I&D and right calcanectomy. Further irrigation and wound vac change today due to continued bleeding after wound vac change. - Appreciate ID consult. Continue Vanco/Aztreonam. Wound is MRSA positive. - prior hx of L BKA (2) Sepsis Current Visit: No Status: Acute Comment: - 2/2 diabetic wound infection on LE - Met criteria on admission with leukocytosis and tachycardia - BC negative to date - Plan as above (3) Anemia Current Visit: No Status: Chronic Code(s): D64.9 - ANEMIA, UNSPECIFIED SNOMED Code(s): 384964200 Comment: - AIDEE and AOCD - H&H slightly decreased from baseline and I suspect will be further decreased considering ongoing bleeding. Patient refuses blood transfusion for catholic reasons. Discussed with the patient that given her current hemoglobin level, any further decrease would be risk for CA, organ failue, or . Patient understands and would not want transfusions. - Iron studies from April showing iron deficiency, but it appears as though the patient is not taking daily iron - Received one dose iron sucrose 07/25/19 - Will order additional iron sucrose considering ongoing bleeding (4) HFrEF (heart failure with reduced ejection fraction) Current Visit: Yes Status: Acute Code(s): I50.20 - UNSPECIFIED SYSTOLIC ( CONGESTIVE) HEART FAILURE SNOMED Code(s): 398532965 Comment: -ischemic cardiomyopathy s/p CABG with EF 35-40%, s/p BiV ICD -small pleural effusions on admission and does still have crackles in lungs, however she is at her baseline 3L O2 requirement -d/c torsemide considering rise in BUN/Cr (5) LELIA (acute kidney injury) Current Visit: No Status: Acute Priority: High Code(s): N17.9 - ACUTE KIDNEY FAILURE, UNSPECIFIED SNOMED Code(s): 88789118 Comment: - Acute on Chronic. -Creatinine above baseline, may be pre-renal or ATN due to Vancomycin -Holding diuretics -Will monitor. - Improving (6) Diabetes Current Visit: No Status: Acute Code(s): E11.9 - TYPE 2 DIABETES MELLITUS WITHOUT COMPLICATIONS SNOMED Code(s): 26909615 Comment: - Hyperglycemic on admission with glucose >600 - A1c in June 11.2%. Complicated by diabetic neuropathy. - Continue Lispro SS, standing lispro 5U AC, and Lantus - Patient on fentanyl patch, unclear if for treatment of neuropathic pain or otherwise, will obtain records outpatient (7) Chronic indwelling Mckeon catheter Current Visit: Yes Status: Acute Code(s): Z96.0 - PRESENCE OF UROGENITAL IMPLANTS SNOMED Code(s): 393212575 Comment: - Changed 07/26/19 - Functioning properly. (8) COPD (chronic obstructive pulmonary disease) Current Visit: No Status: Chronic Code(s): J44.9 - CHRONIC OBSTRUCTIVE PULMONARY DISEASE, UNSPECIFIED SNOMED Code(s): 83834872 Comment: - Not in exacerbation - Continue Dulera, Spiriva (9) DNR (do not resuscitate) Current Visit: No Status: Acute Comment: (10) DVT prophylaxis Current Visit: No Status: Acute Priority: Low Code(s): ZBK4355 - SNOMED Code(s): 690360902 Comment: - Holding heparin due to continued postoperative bleeding, will discuss restart with ortho Status and Disposition: Inpatient. Need for further wound debridement. Would benefit from PMRU admission at d/c if possible as she will not consider going to another rehab.
[2019-07-30] MEDS ORDERED: Famotidine IV* 10 MG/ML 2 ML (20 mg) IV SLOW PU ONE (13:00)
[2019-07-30] MEDS ORDERED: Bupivacaine 0.25% SDV PF* 10 ML VIAL INJ ONE (15:52)
[2019-07-30] MEDS ORDERED: Midazolam* 1 MG/ML 2 ML VIAL (2 MG) ONE (16:05)
[2019-07-30] MEDS ORDERED: fentaNYL* 50 MCG/ML 2 ML VIAL (100 MCG VIAL) ONE (16:05)
[2019-07-30] MEDS ORDERED: Lidocaine 2% PF * 5 ML VIAL ONE (16:05)
[2019-07-30] MEDS ORDERED: Propofol* 10 MG/ML 20 ML BTL ONE (16:05)
[2019-07-30] MEDS ORDERED: KETAMINE HCL* 50 MG/ML 10 ML VIAL ONE (16:05)
--- NOTE | 2019-07-30 16:53 | OP ---
Operative Report - Blank - Operative Report Date of Operation: 07/30/19 Note: PATIENT: Michelle Galarza DATE OF : 1960 DATE OF SURGERY: 07/30/2019 SURGEON: Rivera Shin MD [employer] SUPERVISOR: OSCAR Arguello, whos assistance was necessary for positioning , retraction, help with instrumentation, and closure. ANESTHESIOLOGIST: Dr. Borges PREOPERATIVE DIAGNOSIS: Right heel wound POSTOPERATIVE DIAGNOSIS: Right heel wound OPERATION: Right foot irrigation and debridement and placement of wound vac ANESTHESIA: MAC IMPLANTS: none TOURNIQUET TIME: none SPECIMENS: none ESTIMATED BLOOD LOSS: minimal COMPLICATIONS: none STATUS: Stable from the operating room to the recovery room. INDICATIONS FOR PROCEDURE: Michelle has a right heel wound, status post one prior irrigation and debridement. Her wound VAC kept failing today and she was having copious drainage from the wound. Both operative and non-operative treatment alternatives were reviewed. Further, the nature and risks of surgery were reviewed in careful detail. DESCRIPTION OF PROCEDURE: The patient was seen in the preoperative holding unit and informed written consent was obtained. The appropriate extremity was marked. The patient was then brought to the operating room and carefully positioned on the operating room table. Anesthesia was induced. All bony prominences were padded with great care. A chlorhexidine based pre-scrub was performed followed by a betadine prep and drape in standard sterile fashion. A surgical safety pause was then conducted in which we confirmed the appropriate patient, extremity, planned procedure, availability of equipment, indication and administration of prophylactic antibiotics, and DVT prophylaxis in the form of a compression boot on the non-surgical extremity. I began by sharply debriding away with a 15 blade scalpel any necrotic- appearing tissue in the heel wound, which included the skin, subcutaneous, and deep layer down to bone and periosteum. No purulence was encountered. The wound was then thoroughly irrigated with sterile saline. Meticulous hemostasis was obtained. The wound measured 6 cm in width by 6 cm in length by 0.5 cm in depth. I then placed a wound VAC, which held good suction. A Xeroform dry sterile dressing was placed over the calf wound. The patient was then awakened from anesthesia and transferred to the recovery room in stable condition. There were no complications. All needle and sponge counts were correct at the end of the case. ATTESTATION: I attest I was present and scrubbed and performed the critical portions of the procedure myself. POSTOPERATIVE PLAN: VAC changes every 3 days.
[2019-07-30] MEDS ORDERED: Iron Sucrose* 200 MG in NS 0.9% 100 ML* 100 ML IVPB ONE (19:16)
[2019-07-30 19:30] LABS: Hematocrit 20 % (35-47); Hemoglobin 5.8 g/dL (12.0-16.0)
[2019-07-30] MEDS: fentaNYL PATCH 25 MCG/HR TRANSDERM SCH (23:14)
[2019-07-31] MEDS ORDERED: Insulin LISPRO* 1 UNITS UNIT SUBCUT ONE (00:05)
[2019-07-31] MEDS: Polyethylene Glycol 3350* 17 GM PACKET PO SCH ×3 (00:06→22:04)
[2019-07-31] MEDS: Gabapentin CAP(*) 400 MG PO SCH ×2 (00:11→20:30)
[2019-07-31] MEDS: Carvedilol TAB* 3.125 MG PO SCH ×3 (00:12→20:30)
[2019-07-31] MEDS: Melatonin 3 MG TAB PO SCH ×2 (00:12→20:30)
[2019-07-31] MEDS: Pramipexole TAB* 0.5 MG PO SCH ×2 (00:13→20:30)
[2019-07-31] MEDS: Insulin GLARGINE(*) 1 UNITS UNIT SUBCUT SCH ×2 (00:44→20:33)
[2019-07-31] MEDS: Insulin LISPRO* 1 UNITS UNIT SUBCUT SCH ×8 (00:48→22:32)
[2019-07-31] MEDS: Morphine INJ* 2 MG/ML 1 ML SYRINGE (TWO MG - NEW SYRINGE VERSION) IV PRN ×2 (00:57→13:49)
[2019-07-31] MEDS: Nystatin TOP POWDER* 15 GM BTL TOPICAL SCH ×4 (01:00→20:55)
[2019-07-31] MEDS: Aztreonam (*) 1 GM in NS 0.9% 50 ML* 50 ML IVPB SCH ×3 (05:30→20:24)
[2019-07-31 05:46] LABS: ABS Basophils 0.2 10^3/ul (0-0.2); ABS Eosinophils 0.3 10^3/ul (0-0.6); ABS Lymphocytes 0.9 10^3/ul (1.0-4.8); ABS Monocytes 1.3 10^3/ul (0-0.8); ABS Neutrophils 13.1 10^3/ul (1.5-7.7); Eosinophil % 1.6 %; Hematocrit 17 % (35-47); Hemoglobin 5.1 g/dL (12.0-16.0); Lymphocyte % 5.5 %; Mean Corpuscular HGB Conc 30 g/dL (31-36); Mean Corpuscular Hemoglobin 22 pg (27-31); Mean Corpuscular Volume 74 fL (80-97); Mean Platelet Volume 8.2 fL (7.4-10.4); Nucleated Red Blood Cells % 0.1; Platelet Count 396 10^3/uL (150-450); Red Blood Count 2.28 10^6 /uL (3.70-4.87); Red Cell Distribution Width 29 % (10-15); White Blood Count 15.7 10^3/uL (3.5-10.8)
[2019-07-31 05:58] LABS: C Reactive Protein 41.49 mg/L (<8.01); Calcium 7.7 mg/dL (8.6-10.3); EGFR African American 20.3 (>60); EGFR Non-African American 16.8 (>60); Potassium 3.2 mmol/L (3.5-5.0)
[2019-07-31] MEDS ORDERED: Vancomycin Random Level* NOTE FOLLOW UP ONE (06:00)
[2019-07-31 06:14] LABS: Vancomycin Random 18.9 mcg/mL
[2019-07-31 07:01] LABS: Erythrocyte Sed Rate 87 mm/Hr (0-29)
[2019-07-31] MEDS: fentaNYL Patch Check Q Shift 1 NOTE FOLLOW UP SCH ×2 (07:28→19:04)
[2019-07-31] MEDS: Mometasone/Formoter 100/5 MDI INH SCH (07:54)
[2019-07-31] MEDS: SPIRIVA Respimat* (tiotropium) 2.5 mcg/inh Inhaler INH SCH (07:54)
[2019-07-31] MEDS ORDERED: Vancomycin(*) 500 MG in NS 0.9% 250 ML* 250 ML IVPB ONE (09:00)
[2019-07-31] MEDS: KCL 20 MEQ/100 ML IVPREMIX* 20 MEQ/100 ML BAG IV SCH ×3 (09:29→14:37)
--- NOTE | 2019-07-31 11:11 | PN ---
Subjective Date of Service: 07/31/19 Interval History: Patient's heel wound feeling less painful today and overall the calf wound feels much less painful. She describes feeling lightheaded at times today. Denies chest pain, visual changes, fever/chills, difficulty breathing, abd pain. Family History: Unchanged from Admission Social History: Unchanged from Admission Past Medical History: Unchanged from Admission Objective Active Medications: Acetaminophen (Tylenol Tab*) 650 mg PO Q4H PRN PRN Reason: MILD PAIN or TEMP > 100.4 Last Admin: 07/28/19 01:07 Dose: 650 mg Albuterol/Ipratropium (Duoneb (Albuterol 2.5 Mg/Ipratropium 0.5 Mg)) 1 neb INH [id number] AWAKE PRN PRN Reason: sob/wheexing Aspirin (Aspirin 81 Mg Chew Tab*) 81 mg PO DAILY [facility] Last Admin: 07/30/19 09:26 Dose: 81 mg Atorvastatin Calcium (Lipitor*) 20 mg PO DAILY [facility] Last Admin: 07/30/19 09:26 Dose: 20 mg Carvedilol (Coreg Tab*) 3.125 mg PO BID [facility] Last Admin: 07/31/19 00:12 Dose: 3.125 mg Cyclobenzaprine HCl (Flexeril Tab*) 10 mg PO BID PRN PRN Reason: SPASMS Last Admin: 07/26/19 15:10 Dose: 10 mg Dextrose (Dextrose 50% Vial 50 Ml*) 25 ml IV PUSH .FOR FS < 60 - SS PRN PRN Reason: FS < 60 Docusate Sodium (Colace Cap*) 200 mg PO DAILY PRN PRN Reason: CONSTIPATION Fentanyl (Duragesic Patch 25 Mcg/Hr*) 25 mcg TRANSDERM Q72H [facility] Last Admin: 07/30/19 23:14 Dose: 25 mcg Gabapentin (Neurontin Cap(*)) 1,200 mg PO BEDTIME [facility] Last Admin: 07/31/19 00:11 Dose: 1,200 mg Heparin Sodium (Porcine) (Heparin Flush Port (Ivad)) 5 ml FLUSH DAILY [facility]; Protocol Last Admin: 07/31/19 07:36 Dose: Not Given Aztreonam 1 gm/ Sodium (Chloride) 50 mls @ 200 mls/hr IVPB Q8H [facility] Last Admin: 07/31/19 05:30 Dose: 200 mls/hr Potassium Chloride (Potassium Chloride 20 Meq/100 Ml Ivpremix*) 20 meq in 100 mls @ 50 mls/hr IV Q2H [facility] Stop: 07/31/19 14:59 Last Admin: 07/31/19 09:29 Dose: 50 mls/hr Insulin Glargine (Lantus(*)) 10 units SUBCUT Q24H [facility] Last Admin: 07/31/19 00:44 Dose: 10 units Insulin Human Lispro (Humalog*) 0 units SUBCUT ACHS [facility]; Protocol Last Admin: 07/31/19 07:37 Dose: Not Given Insulin Human Lispro (Humalog*) 5 units SUBCUT AC [facility] Last Admin: 07/31/19 07:37 Dose: Not Given Melatonin (Melatonin) 3 mg PO BEDTIME [facility] Last Admin: 07/31/19 00:12 Dose: 3 mg Mometasone Furoate/Formoterol Fumar (Dulera 100/5 Mdi*) 2 puff INH DAILY [facility] Last Admin: 07/31/19 07:54 Dose: 2 puff Morphine Sulfate (Morphine Inj (Syringe))*) 2 mg IV Q4H PRN PRN Reason: PAIN - SEVERE Last Admin: 07/31/19 00:57 Dose: 2 mg Nystatin (Nystatin Top Powder*) 1 applic TOPICAL TID [facility] Last Admin: 07/31/19 07:48 Dose: 1 applic Ondansetron HCl (Zofran Inj*) 4 mg IV Q4H PRN PRN Reason: NAUSEA/VOMITING Last Admin: 07/25/19 23:15 Dose: 4 mg Oxycodone/Acetaminophen (Percocet 5/325 Tab*) 1 tab PO Q3H PRN PRN Reason: PAIN - MODERATE Last Admin: 07/30/19 20:07 Dose: 1 tab Pharmacy Consult (Vancomycin Per Pharmacy*) 1 note FOLLOW UP .VANC PER PHARMACY [facility]; Protocol Pharmacy Consult (Vancomycin Random Level*) 1 note FOLLOW UP ONCE ONE Stop: 08/01/19 06:01 Pharmacy Profile Note (Fentanyl Patch Check Q Shift) 1 note FOLLOW UP 0700, 1900 [facility] Last Admin: 07/31/19 07:28 Dose: 1 note Polyethylene Glycol/Electrolytes (Miralax*) 17 gm PO BID [facility] Last Admin: 07/31/19 07:45 Dose: Not Given Pramipexole Dihydrochloride (Mirapex Tab*) 0.5 mg PO BEDTIME [facility] Last Admin: 07/31/19 00:13 Dose: 0.5 mg Prochlorperazine (Compazine Tab*) 10 mg PO Q6H PRN PRN Reason: NAUSEA Last Admin: 07/26/19 06:39 Dose: 10 mg Senna (Senokot 8.6 Mg Tab*) 1 tab PO DAILY PRN PRN Reason: CONSTIPATION Sertraline HCl (Zoloft*) 50 mg PO DAILY [facility] Last Admin: 07/30/19 09:26 Dose: 50 mg Temazepam (Restoril Cap*) 15 mg PO BEDTIME PRN PRN Reason: INSOMNIA Tiotropium Willis (Spiriva Respimat 2.5 Mcg) 2 puff INH DAILY [facility] Last Admin: 07/31/19 07:54 Dose: 2 puff Vital Signs - 8 hr 07/31/19 07/31/19 07/31/19 06:40 07:55 08:27 Temperature 97.3 F Pulse Rate 68 72 Respiratory 16 16 16 Rate Blood Pressure (mmHg) O2 Sat by Pulse 100 100 Oximetry 07/31/19 08:40 Temperature 97.3 F Pulse Rate 67 Respiratory 14 Rate Blood Pressure 124/56 (mmHg) O2 Sat by Pulse 100 Oximetry Oxygen Devices in Use Now: Nasal Cannula Appearance: White female who appears older than stated age, laying upright in bed, appearing in NAD Eyes: No Scleral Icterus, PERRLA Ears/Nose/Mouth/Throat: Mucous Membranes Moist Neck: NL Appearance and Movements; NL JVP Respiratory: Symmetrical Chest Expansion and Respiratory Effort, Clear to Auscultation Cardiovascular: NL Sounds; No Murmurs; No JVD, RRR Abdominal: - - abd soft, nontender, nondistended Extremities: No Edema, No Clubbing, Cyanosis, - - left BKA Skin: - - right lateral calf wound without surrounding erythema; right heel wound no longer actively bleeding Neurological: Alert and Oriented x 3, NL Muscle Strength and Tone Result Diagrams: 07/31/19 05:25 07/31/19 05:25 Additional Lab and Data: Laboratory Tests Microbiology and Other Data: Microbiology 07/24/19 17:12 Aerobic Blood Culture - Preliminary Blood Venous No Growth Day 1 Anaerobic Blood Culture - Preliminary No Growth Day 1 Diagnostic Imaging: Exam Date: 04/14/19 - VL ANK/BRACHIAL INDICES Ankle-brachial indices: Right: Value (SBP) Index Brachial: 153 Posterior tibialis: 171 1.07 Dorsalis pedis: 161 1.01 Digit: 158 0.99 Doppler waveforms (acquired at rest): In the interrogated lower extremity arteries, Doppler waveforms are triphasic in the right lower extremity. Volume pulse recordings (acquired at rest): Volume pulse recordings, measured at the right ankle, measures 31 mm. IMPRESSION: No evidence of claudication or significant arterial insufficiency in the right lower extremity by vascular ultrasound FAY standards. Assess/Plan/Problems-Billing Assessment: Ms. Galarza is a 59 yo F with PMH of DM1, systolic CHF, CKD stage 4, CAD, PVD, HTN, COPD, CVA, peripheral neuropathy, chronic Mckeon; who presented to the ED with c/o worsening RLE wounds and was found to be septic secondary to wound infections. Patient is S/P I&D and partial calcanectomy on 07/27/19. - Patient Problems (1) Diabetic foot infection Current Visit: No Status: Acute Code(s): E11.69 - TYPE 2 DIABETES MELLITUS WITH OTHER SPECIFIED COMPLICATION; L08.9 - LOCAL INFECTION OF THE SKIN AND SUBCUTANEOUS TISSUE, UNSP SNOMED Code(s): 425317168 Comment: - Large wounds to right heel and lateral right calf, both appeared infected initially - Wound care consult appreciated - Appreciate Ortho consult. S/p I&D and right calcanectomy. Further irrigation and wound vac change 07/30/19 due to continued bleeding after wound vac change. Bleeding more controlled today. - Appreciate ID consult. Continue Vanco/Aztreonam. Wound is MRSA positive. - prior hx of L BKA - On fentanyl patch for wound pain since April 2019, will continue with prn oxycodone and morphine considering postoperative phase (2) Sepsis Current Visit: No Status: Acute Comment: - 2/2 diabetic wound infection on LE - Met criteria on admission with leukocytosis and tachycardia. Leukocytosis is persistent but no longer meeting criteria for sepsis - BC negative to date - Plan as above (3) Anemia Current Visit: No Status: Chronic Code(s): D64.9 - ANEMIA, UNSPECIFIED SNOMED Code(s): 769037689 Comment: - AIDEE and AOCD. Now complicated by acute blood loss from calcanectomy wound - Hgb 5.1 this morning. Patient continues to refuse transfusions - Iron studies from April showing iron deficiency, but it appears as though the patient is not taking daily iron - Will order additional iron sucrose considering ongoing bleeding - Overwise hemodynamically stable, experiencing dizziness - Discussed with patient she is at high risk for additional CVA and TN - Lab draws should be limited and ordered with comment to fill only 1/3 of tube (4) HFrEF (heart failure with reduced ejection fraction) Current Visit: Yes Status: Acute Code(s): I50.20 - UNSPECIFIED SYSTOLIC ( CONGESTIVE) HEART FAILURE SNOMED Code(s): 414222007 Comment: -ischemic cardiomyopathy s/p CABG with EF 35-40%, s/p BiV ICD -small pleural effusions on admission -lungs clear today despite diuretic discontinuation. She has good oxygen saturations despite being on 2L oxygen (home requirement is 3L) (5) LELIA (acute kidney injury) Current Visit: No Status: Acute Priority: High Code(s): N17.9 - ACUTE KIDNEY FAILURE, UNSPECIFIED SNOMED Code(s): 75592298 Comment: - Acute on Chronic. -Creatinine above baseline, may be pre-renal or ATN due to Vancomycin -Holding diuretics -Will monitor - Improving (6) Diabetes Current Visit: No Status: Acute Code(s): E11.9 - TYPE 2 DIABETES MELLITUS WITHOUT COMPLICATIONS SNOMED Code(s): 41179035 Comment: - Hyperglycemic on admission with glucose >600 - A1c in June 11.2%. Complicated by diabetic neuropathy. - Continue Lispro SS, standing lispro 5U AC, and Lantus (7) Hypokalemia Current Visit: No Status: Acute Priority: High Code(s): E87.6 - HYPOKALEMIA SNOMED Code(s): 30158222 Comment: -possibly related to torsemide which was discontinued yesterday -replacing with IV KCl -Mag is normal -will not recheck K until tomorrow to limit blood drawns due to severe anemia (8) Chronic indwelling Mckeon catheter Current Visit: Yes Status: Acute Code(s): Z96.0 - PRESENCE OF UROGENITAL IMPLANTS SNOMED Code(s): 259903404 Comment: - Changed 07/26/19 - Functioning properly. (9) COPD (chronic obstructive pulmonary disease) Current Visit: No Status: Chronic Code(s): J44.9 - CHRONIC OBSTRUCTIVE PULMONARY DISEASE, UNSPECIFIED SNOMED Code(s): 18762012 Comment: - Not in exacerbation - Continue Gui Allen (10) DNR (do not resuscitate) Current Visit: No Status: Acute Comment: (11) DVT prophylaxis Current Visit: No Status: Acute Priority: Low Code(s): FBX5980 - SNOMED Code(s): 125586828 Comment: - Holding heparin due to continued postoperative bleeding, will discuss restart with ortho Status and Disposition: Inpatient. Need for further wound management. Will benefit from PMRU vs JANA at d /c
[2019-07-31 11:38] LABS: Magnesium 2.4 mg/dL (1.9-2.7)
--- NOTE | 2019-07-31 11:45 | PN ---
Progress Note - Progress Note Date of Service: 07/31/19 SOAP: Subjective: CC: Right LE wounds HPI: Ms. Galarza is a 59 year old female with PMH significant for CAD s/p CABG, carotid stenosis, PAD, DM1, vasculopathy, peripheral neuropathy, anemia, CKD stage 4, gastroporesis, HTN, HLD, COPD, CVA, GOUT, and CHF with last EF 35-40%; she presented to the emergency room for worsening right lower extremity wounds. Denies fever, chills, nausea, vomiting, diarrhea, or rash. She reports right leg pain, this is controlled by pain medication. Appetite is ok. Objective: Vital Signs - 8 hr 07/31/19 08:40 Temperature 97.3 F Pulse Rate 67 Respiratory 14 Rate Blood Pressure 124/56 (mmHg) O2 Sat by Pulse 100 Oximetry Physical Exam: General: NAD, laying in bed Neurological: Alert and Oriented x4 HEENT: Moist MM, no thrush Cardiovascular: Heart rate regular Respiratory: Lung sounds clear Abdominal: Bowel sounds present; ABD soft, non tender and non distended MSK: Able to wiggle right toes Skin: No rash. JAIME wrap dressing to the right LE Laboratory Results - last 24 hr 07/31/19 07/31/19 07/31/19 05:25 05:25 09:30 WBC 15.7 H RBC 2.28 L Hgb 5.1 L* Hct 17 L MCV 74 L MCH 22 L MCHC 30 L RDW 29 H Plt Count 396 MPV 8.2 Neut % (Auto) 83.6 Lymph % (Auto) 5.5 [place] % (Auto) 8.3 Eos % (Auto) 1.6 Baso % (Auto) 1.0 Absolute Neuts (auto) 13.1 H Absolute Lymphs (auto) 0.9 L Absolute Monos (auto) 1.3 H Absolute Eos (auto) 0.3 Absolute Basos (auto) 0.2 Absolute Nucleated RBC 0.0 Nucleated RBC % 0.1 ESR 87 H Sodium 135 Potassium 3.2 L Chloride 94 L Carbon Dioxide 33 H Anion Gap 8 BUN 98 H Creatinine 2.88 H Est GFR ( Amer) 20.3 Est GFR (Non-Af Amer) 16.8 BUN/Creatinine Ratio 34.0 H Glucose 291 H POC Glucose (mg/dL) Calcium 7.7 L Ionized Calcium 1.12 L Magnesium 2.4 C-Reactive Protein 41.49 H Random Vancomycin 18.9 Microbiology 07/27/19 17:00 Anaerobic Culture - Final Wound 07/27/19 17:00 Skin and Soft Tissue MRSA/MSSA (PCR - Final Misc Source (See Comment) - Right Mrsa Positive S.aureus Positive Gram Stain - Final Wound Culture - Final MRSA Jorge Albicans Corynebacterium Striatum 07/27/19 17:00 Gram Stain - Final Misc Source (See Comment) - Right Wound Culture - Final Strep Agalactiae - (Group B) Normal Vida 07/27/19 17:00 Anaerobic Culture - Final Wound 07/24/19 17:12 Aerobic Blood Culture - Final Blood Venous No Growth Day 5 Anaerobic Blood Culture - Final No Growth Day 5 07/26/19 15:19 Urine Culture - Final Urine Jorge Albicans Normal [place] 07/25/19 10:13 Urine Culture - Final Urine Assessment: 1. Right leg cellulitis with non healing ulcers. Blood cultures with no growth. Leukocytosis is improving. Afebrile. CT scan with Calcaneous avulsion. S/P I+D of the right leg and partial right calcanectomy, right heel excision of ulcer, POD #4. Wound cultures with MRSA, group B strep, jorge albincans, and corynebacterium striatum. S/P I+D of right heel, POD #1. 2. DM1 with neuropathy. 3. PAD. S/P L BKA. 4. CKD with LELIA. Creatinine is improving. Plan: Continue vancomycin, goal trough 10-15 and Aztreonam 1g IV Q8H (renally dosed). Day 8 of ABX.
[2019-07-31] MEDS: Sertraline* 50 MG TAB PO SCH (12:01)
[2019-07-31] MEDS: Atorvastatin* 20 MG TAB PO SCH (12:01)
[2019-07-31] MEDS: oxyCODONE/Acetamin 5/325 MG* TAB PO PRN (12:02)
[2019-07-31] MEDS: Aspirin 81 mg CHEW TAB* 81 MG TAB.CHEW PO SCH (12:02)
--- NOTE | 2019-07-31 13:05 | PN ---
Progress Note - Progress Note Date of Service: 07/31/19 SOAP: Subjective: [The pt was seen lying in bed today. She states she has pain, moderate in nature. She admits to some lightheadedness. Denies any chest pain, SOB, fevers, chills. ] Objective: [General: Pt is alert and oriented x 3. NAD MSK, RLE: Dressing was present, removed today due to wound vac clotting and not working. There is a large wound encompassing the area of the calcaneous. There is no purulence in the wound. No active bleeding when the wound vac was removed. There is areas of emeli from the electrocautory from the OR. There is also a wound present on the calf that was dressed, This wound appears non purulent without bleeding and there is pink tissue present. There is pink tissue present. She is able to df/pf and able to wiggle toes. Cap refill is less than 2 seconds. ] Vital Signs Temp 97.5 F 07/31/19 11:35 Pulse 66 07/31/19 11:35 Resp 16 07/31/19 12:02 BP 130/58 07/31/19 11:35 Pulse Ox 100 07/31/19 11:35 Intake & Output 07/30/19 07/31/19 07/31/19 18:59 06:59 18:59 Intake Total 585 300 Output Total 1350 Balance 585 -1050 Weight 153 lb 14.122 oz 164 lb 11.2 oz Intake: IV Fluids 530 NS (0.9%) 30 lr 500 IVPB 55 aztreonam 55 Oral 300 Output: Mckeon 1350 Other: Date of Last Bowel 07/31/19 Movement # Bowel Movements 2 Estimated Stool Amount Large Laboratory Last Values WBC 15.7 10^3/uL (3.5-10.8) H 07/31/19 05:25 RBC 2.28 10^6 /uL (3.70-4.87) L 07/31/19 05:25 Hgb 5.1 g/dL (12.0-16.0) L* 07/31/19 05:25 Hct 17 % (35-47) L 07/31/19 05:25 MCV 74 fL (80-97) L 07/31/19 05:25 MCH 22 pg (27-31) L 07/31/19 05:25 MCHC 30 g/dL (31-36) L 07/31/19 05:25 RDW 29 % (10-15) H 07/31/19 05:25 Plt Count 396 10^3/uL (150-450) 07/31/19 05:25 MPV 8.2 fL (7.4-10.4) 07/31/19 05:25 Neut % (Auto) 83.6 % 07/31/19 05:25 Lymph % (Auto) 5.5 % 07/31/19 05:25 [place] % (Auto) 8.3 % 07/31/19 05:25 Eos % (Auto) 1.6 % 07/31/19 05:25 Baso % (Auto) 1.0 % 07/31/19 05:25 Absolute Neuts (auto) 13.1 10^3/ul (1.5-7.7) H 07/31/19 05:25 Absolute Lymphs (auto) 0.9 10^3/ul (1.0-4.8) L 07/31/19 05:25 Absolute Monos (auto) 1.3 10^3/ul (0-0.8) H 07/31/19 05:25 Absolute Eos (auto) 0.3 10^3/ul (0-0.6) 07/31/19 05:25 Absolute Basos (auto) 0.2 10^3/ul (0-0.2) 07/31/19 05:25 Absolute Nucleated RBC 0.0 10^3/ul 07/31/19 05:25 Nucleated RBC % 0.1 07/31/19 05:25 Large Platelets Present 07/29/19 05:00 Polychromasia 2+ 07/30/19 05:50 Hypochromasia 1+ 07/30/19 05:50 Basophilic Stippling 1+ 07/27/19 06:30 Anisocytosis 2+ 07/30/19 05:50 Microcytosis 1+ 07/30/19 05:50 Macrocytosis 1+ 07/28/19 06:25 ESR 87 mm/Hr (0-29) H 07/31/19 05:25 INR (Anticoag Therapy) 1.31 (0.82-1.09) H 07/27/19 06:30 APTT 35.3 seconds (26.0-38.0) 07/24/19 17:14 VBG pH 7.33 (7.32-7.43) 07/24/19 17:13 VBG pCO2 45 mmHg (41-51) 07/24/19 17:13 VBG pO2 44.0 mmHg (35-45) 07/24/19 17:13 VBG HCO3 22.3 mmol/L (24-28) L 07/24/19 17:13 VBG O2 Saturation 72.8 % (70-80) 07/24/19 17:13 VBG Base Excess -2.4 mmol/L (0.0-4.0) L 07/24/19 17:13 Sodium 135 mmol/L (135-145) 07/31/19 05:25 Potassium 3.2 mmol/L (3.5-5.0) L 07/31/19 05:25 Chloride 94 mmol/L (101-111) L 07/31/19 05:25 Carbon Dioxide 33 mmol/L (22-32) H 07/31/19 05:25 Anion Gap 8 mmol/L (2-11) 07/31/19 05:25 BUN 98 mg/dL (6-24) H 07/31/19 05:25 Creatinine 2.88 mg/dL (0.51-0.95) H 07/31/19 05:25 Est GFR ( Amer) 20.3 (>60) 07/31/19 05:25 Est GFR (Non-Af Amer) 16.8 (>60) 07/31/19 05:25 BUN/Creatinine Ratio 34.0 (8-20) H 07/31/19 05:25 Glucose 291 mg/dL (70-100) H 07/31/19 05:25 POC Glucose (mg/dL) 150 mg/dL (70-100) H 07/31/19 12:10 Lactic Acid 1.9 mmol/L (0.5-2.0) 07/24/19 17:14 Calcium 7.7 mg/dL (8.6-10.3) L 07/31/19 05:25 Ionized Calcium 1.12 mmol/L (1.16-1.32) L 07/31/19 09:30 Magnesium 2.4 mg/dL (1.9-2.7) 07/31/19 05:25 Total Bilirubin 0.60 mg/dL (0.2-1.0) 07/26/19 06:15 AST 15 U/L (13-39) 07/26/19 06:15 ALT 8 U/L (7-52) 07/26/19 06:15 Alkaline Phosphatase 298 U/L (34-104) H 07/26/19 06:15 C-Reactive Protein 41.49 mg/L (<8.01) H 07/31/19 05:25 Total Protein 5.3 g/dL (6.4-8.9) L 07/26/19 06:15 Albumin 2.3 g/dL (3.2-5.2) L 07/26/19 06:15 Globulin 3.0 g/dL (2-4) 07/26/19 06:15 Albumin/Globulin Ratio 0.8 (1-3) L 07/26/19 06:15 Urine Color Yellow 07/26/19 15: Urine Appearance Turbid 07/26/19 15: Urine pH 5.0 (5-9) 07/26/19 15:19 Ur Specific [place] 1.009 (1.010-1.030) L 07/26/19 15:19 Urine Protein 2+(100 mg/dl) (Negative) A 07/26/19: Urine Ketones Negative (Negative) 07/26/19: Urine Blood 1+ (Negative) A 07/26/19: Urine Nitrate Negative (Negative) 07/26/19 15: Urine Bilirubin Negative (Negative) 07/26/19: Urine Urobilinogen Negative (Negative) 07/26/19: Ur Leukocyte Esterase 3+ (Negative) A 07/26/19 15: Urine WBC (Auto) 3+(>20/hpf) (Absent) A 07/26/19 15: Urine RBC (Auto) Trace(0-2/hpf) (Absent) 07/26/19 15: Ur Squamous Epith Cells Present (Absent) A 07/26/19 15:19 Urine Bacteria Absent (Absent) 07/26/19 15: Urine Yeast Present (Absent) A 07/26/19: Urine Glucose 2+(150 mg/dl) (Negative) A 07/26/19:19 Random Vancomycin 18.9 mcg/mL 07/31/19 05:25 Assessment: [Right leg infection s/p partial calcanectomy, right heel with excision of ulcer and VAC dressing and excision of eschar over right calf with VAC dressing ] Plan: [VAC was removed today due to continuous failure of the VAC due to clotting Dressing changed, betadine wet to dry was placed over the wound on the calcaneous. Xeraform and 4x4s placed on the calf wound. Dressing change again tomorrow Pt has a severely low H&H, she refuses blood transfusion due to yazdanism beliefs. Continue with pain medication Continue to hold anticoagulation. ]
[2019-07-31] MEDS ORDERED: NS 0.9% 250 ML* 250 ML IV ONE (17:14)
[2019-08-01] MEDS: Aztreonam (*) 1 GM in NS 0.9% 50 ML* 50 ML IVPB SCH ×3 (04:47→21:41)
[2019-08-01 05:38] LABS: Calcium 7.4 mg/dL (8.6-10.3); Potassium 4.6 mmol/L (3.5-5.0)
[2019-08-01 05:44] LABS: BUN/Creatinine Ratio 26.6 (8-20); EGFR African American 15.7 (>60); EGFR Non-African American 12.9 (>60); Vancomycin Random 23.4 mcg/mL
[2019-08-01] MEDS ORDERED: Vancomycin Random Level* NOTE FOLLOW UP ONE (06:00)
[2019-08-01] MEDS: fentaNYL Patch Check Q Shift 1 NOTE FOLLOW UP SCH ×2 (07:09→19:03)
[2019-08-01] MEDS: Lactated Ringers 1000 ML Bag* 1,000 ML IV SCH ×2 (08:20→21:43)
[2019-08-01] MEDS ORDERED: EPOETIN ALFA-EPBX * 10,000 UNIT/ML VIAL SUBCUT ONE (09:00)
[2019-08-01] MEDS ORDERED: EPOETIN ALFA-EPBX * 2,000 UNIT/ML VIAL SUBCUT ONE (09:00)
[2019-08-01] MEDS ORDERED: EPOETIN ALFA-EPBX * 10,000 UNIT/ML VIAL SUBCUT SCH (09:00)
[2019-08-01] MEDS ORDERED: EPOETIN ALFA-EPBX * 3,000 UNIT/ML VIAL SUBCUT ONE (09:00)
[2019-08-01] MEDS: Insulin LISPRO* 1 UNITS UNIT SUBCUT SCH ×7 (10:56→21:41)
[2019-08-01] MEDS: Carvedilol TAB* 3.125 MG PO SCH ×2 (10:57→21:42)
[2019-08-01] MEDS: Aspirin 81 mg CHEW TAB* 81 MG TAB.CHEW PO SCH (10:57)
[2019-08-01] MEDS: Sertraline* 50 MG TAB PO SCH (10:57)
[2019-08-01] MEDS: Atorvastatin* 20 MG TAB PO SCH (10:57)
[2019-08-01] MEDS: Polyethylene Glycol 3350* 17 GM PACKET PO SCH ×2 (11:00→21:41)
[2019-08-01] MEDS: Iron Sucrose* 200 MG in NS 0.9% 100 ML* 100 ML IVPB SCH (11:00)
[2019-08-01] MEDS: oxyCODONE/Acetamin 5/325 MG* TAB PO PRN (11:11)
[2019-08-01] MEDS: SPIRIVA Respimat* (tiotropium) 2.5 mcg/inh Inhaler INH SCH (11:11)
[2019-08-01] MEDS: Mometasone/Formoter 100/5 MDI INH SCH (11:11)
[2019-08-01] MEDS: Nystatin TOP POWDER* 15 GM BTL TOPICAL SCH ×3 (11:22→21:41)
--- NOTE | 2019-08-01 11:46 | PN ---
Progress Note - Progress Note Date of Service: 08/01/19 SOAP: Subjective: []Pt seen at bedside. She feels lightheaded today. Denies CP, SOB, fever or chills. Right heel is painful. Objective: []General: Appears well, NAD RLE: Dressing is CDI. Heel wound bed is clean without purulence and without bleeding. Placed betadine wet to dry into wound. Calf wound clean, no purulence or bleeding, xeroform, 4x4 to cover. Assessment: [] Right leg infection s/p partial calcanectomy, right heel with excision of ulcer and VAC dressing and excision of eschar over right calf with VAC dressing ] Plan: [VAC was removed due to repeated failure of the VAC Daily dressing change by ortho -- Betadine wet to dry for the wound on the calcaneous. Xeraform and 4x4s for the calf wound. Pt has a severely low H&H, blood tubes to be only 1/3 filled. Due to anabaptist beliefs refuses pRBC Continue with pain medication Continue to hold anticoagulation due to low h&H. Vital Signs Temp 99.2 F 08/01/19 07:48 Pulse 76 08/01/19 07:48 Resp 17 08/01/19 11:11 BP 115/65 08/01/19 07:48 Pulse Ox 96 08/01/19 07:48 Intake & Output 07/31/19 08/01/19 08/01/19 18:59 06:59 18:59 Intake Total 336 2130 Output Total 1150 Balance 336 980 Weight 173 lb 9.6 oz Intake: IVPB 336 130 ABX - VANCOMYCIN 336 aztreonam 130 Oral 2000 Output: Mckeon 1150 Laboratory Last Values WBC 15.7 10^3/uL (3.5-10.8) H 07/31/19 05:25 RBC 2.28 10^6 /uL (3.70-4.87) L 07/31/19 05:25 Hgb 5.1 g/dL (12.0-16.0) L* 07/31/19 05:25 Hct 17 % (35-47) L 07/31/19 05:25 MCV 74 fL (80-97) L 07/31/19 05:25 MCH 22 pg (27-31) L 07/31/19 05:25 MCHC 30 g/dL (31-36) L 07/31/19 05:25 RDW 29 % (10-15) H 07/31/19 05:25 Plt Count 396 10^3/uL (150-450) 07/31/19 05:25 MPV 8.2 fL (7.4-10.4) 07/31/19 05:25 Neut % (Auto) 83.6 % 07/31/19 05:25 Lymph % (Auto) 5.5 % 07/31/19 05:25 [place] % (Auto) 8.3 % 07/31/19 05:25 Eos % (Auto) 1.6 % 07/31/19 05:25 Baso % (Auto) 1.0 % 07/31/19 05:25 Absolute Neuts (auto) 13.1 10^3/ul (1.5-7.7) H 07/31/19 05:25 Absolute Lymphs (auto) 0.9 10^3/ul (1.0-4.8) L 07/31/19 05:25 Absolute Monos (auto) 1.3 10^3/ul (0-0.8) H 07/31/19 05:25 Absolute Eos (auto) 0.3 10^3/ul (0-0.6) 07/31/19 05:25 Absolute Basos (auto) 0.2 10^3/ul (0-0.2) 07/31/19 05:25 Absolute Nucleated RBC 0.0 10^3/ul 07/31/19 05:25 Nucleated RBC % 0.1 07/31/19 05:25 Large Platelets Present 07/29/19 05:00 Polychromasia 2+ 07/30/19 05:50 Hypochromasia 1+ 07/30/19 05:50 Basophilic Stippling 1+ 07/27/19 06:30 Anisocytosis 2+ 07/30/19 05:50 Microcytosis 1+ 07/30/19 05:50 Macrocytosis 1+ 07/28/19 06:25 ESR 87 mm/Hr (0-29) H 07/31/19 05:25 INR (Anticoag Therapy) 1.31 (0.82-1.09) H 07/27/19 06:30 APTT 35.3 seconds (26.0-38.0) 07/24/19 17:14 VBG pH 7.33 (7.32-7.43) 07/24/19 17:13 VBG pCO2 45 mmHg (41-51) 07/24/19 17:13 VBG pO2 44.0 mmHg (35-45) 07/24/19 17:13 VBG HCO3 22.3 mmol/L (24-28) L 07/24/19 17:13 VBG O2 Saturation 72.8 % (70-80) 07/24/19 17:13 VBG Base Excess -2.4 mmol/L (0.0-4.0) L 07/24/19 17:13 Sodium 138 mmol/L (135-145) 08/01/19 04:35 Potassium 4.6 mmol/L (3.5-5.0) 08/01/19 04:35 Chloride 95 mmol/L (101-111) L 08/01/19 04:35 Carbon Dioxide 34 mmol/L (22-32) H 08/01/19 04:35 Anion Gap 9 mmol/L (2-11) 08/01/19 04:35 BUN 96 mg/dL (6-24) H 08/01/19 04:35 Creatinine 3.61 mg/dL (0.51-0.95) H 08/01/19 04:35 Est GFR ( Amer) 15.7 (>60) 08/01/19 04:35 Est GFR (Non-Af Amer) 12.9 (>60) 08/01/19 04:35 BUN/Creatinine Ratio 26.6 (8-20) H 08/01/19 04:35 Glucose 360 mg/dL (70-100) H 08/01/19 04:35 POC Glucose (mg/dL) 442 mg/dL (70-100) H* 08/01/19 08:27 Glucose Meter Confirm 356 mg/dL (70-100) H 08/01/19 08:35 Lactic Acid 1.9 mmol/L (0.5-2.0) 07/24/19 17:14 Calcium 7.4 mg/dL (8.6-10.3) L 08/01/19 04:35 Ionized Calcium 1.12 mmol/L (1.16-1.32) L 07/31/19 09:30 Magnesium 2.4 mg/dL (1.9-2.7) 07/31/19 05:25 Total Bilirubin 0.60 mg/dL (0.2-1.0) 07/26/19 06:15 AST 15 U/L (13-39) 07/26/19 06:15 ALT 8 U/L (7-52) 07/26/19 06:15 Alkaline Phosphatase 298 U/L (34-104) H 07/26/19 06:15 C-Reactive Protein 41.49 mg/L (<8.01) H 07/31/19 05:25 Total Protein 5.3 g/dL (6.4-8.9) L 07/26/19 06:15 Albumin 2.3 g/dL (3.2-5.2) L 07/26/19 06:15 Globulin 3.0 g/dL (2-4) 07/26/19 06:15 Albumin/Globulin Ratio 0.8 (1-3) L 07/26/19 06:15 Urine Color Yellow 07/26/19 15: Urine Appearance Turbid 07/26/19 15:19 Urine pH 5.0 (5-9) 07/26/19 15:19 Ur Specific [place] 1.009 (1.010-1.030) L 07/26/19 15: Urine Protein 2+(100 mg/dl) (Negative) A 07/26/19: Urine Ketones Negative (Negative) 07/26/19 15: Urine Blood 1+ (Negative) A 07/26/19: Urine Nitrate Negative (Negative) 07/26/19: Urine Bilirubin Negative (Negative) 07/26/19 15: Urine Urobilinogen Negative (Negative) 07/26/19 15:19 Ur Leukocyte Esterase 3+ (Negative) A 07/26/19 15:19 Urine WBC (Auto) 3+(>20/hpf) (Absent) A 07/26/19 15: Urine RBC (Auto) Trace(0-2/hpf) (Absent) 07/26/19 15:19 Ur Squamous Epith Cells Present (Absent) A 07/26/19 15:19 Urine Bacteria Absent (Absent) 07/26/19 15:19 Urine Yeast Present (Absent) A 07/26/19 15:19 Urine Glucose 2+(150 mg/dl) (Negative) A 07/26/19 15:19 Random Vancomycin 23.4 mcg/mL 08/01/19 04:35
--- NOTE | 2019-08-01 12:03 | PN ---
Progress Note - Progress Note Date of Service: 08/01/19 SOAP: Subjective: CC: Right LE wounds HPI: Ms. Galarza is a 59 year old female with PMH significant for CAD s/p CABG, carotid stenosis, PAD, DM1, vasculopathy, peripheral neuropathy, anemia, CKD stage 4, gastroporesis, HTN, HLD, COPD, CVA, GOUT, and CHF with last EF 35-40%; she presented to the emergency room for worsening right lower extremity wounds. Denies fever, chills, nausea, vomiting, diarrhea, or rash. She reports right leg pain, this is controlled by pain medication. Appetite is ok. Objective: Vital Signs - 8 hr 08/01/19 08/01/19 08/01/19 04:05 07:48 08:00 Temperature 98.6 F 99.2 F Pulse Rate 73 76 Respiratory 20 18 18 Rate Blood Pressure 125/70 115/65 (mmHg) O2 Sat by Pulse 100 96 Oximetry Physical Exam: General: NAD, laying in bed Neurological: Alert and Oriented HEENT: Moist MM, no thrush Cardiovascular: Heart rate regular Respiratory: Lung sounds clear Abdominal: Bowel sounds present; ABD soft, non tender and non distended Skin: No rash. Dressing to right LE clean, dry and intact Laboratory Results - last 24 hr 07/31/19 08/01/19 08/01/19 21:45 04:35 08:27 Sodium 138 Potassium 4.6 Chloride 95 L Carbon Dioxide 34 H Anion Gap 9 BUN 96 H Creatinine 3.61 H Est GFR ( Amer) 15.7 Est GFR (Non-Af Amer) 12.9 BUN/Creatinine Ratio 26.6 H Glucose 359 H 360 H POC Glucose (mg/dL) 442 H* Glucose Meter Confirm Calcium 7.4 L Random Vancomycin 23.4 Microbiology 07/27/19 17:00 Anaerobic Culture - Final Wound 07/27/19 17:00 Skin and Soft Tissue MRSA/MSSA (PCR - Final Misc Source (See Comment) - Right Mrsa Positive S.aureus Positive Gram Stain - Final Wound Culture - Final MRSA Carmen Albicans Corynebacterium Striatum 07/27/19 17:00 Gram Stain - Final Misc Source (See Comment) - Right Wound Culture - Final Strep Agalactiae - (Group B) Normal [place] 07/27/19 17:00 Anaerobic Culture - Final Wound 07/24/19 17:12 Aerobic Blood Culture - Final Blood Venous No Growth Day 5 Anaerobic Blood Culture - Final No Growth Day 5 07/26/19 15:19 Urine Culture - Final Urine Carmen Albicans Normal [place] 07/25/19 10:13 Urine Culture - Final Urine Assessment: 1. Right leg cellulitis with non healing ulcers. Blood cultures with no growth. Leukocytosis is improving. Afebrile. CT scan with Calcaneous avulsion. S/P I+D of the right leg and partial right calcanectomy, right heel excision of ulcer, POD #5. Wound cultures with MRSA, group B strep, carmen albincans, and corynebacterium striatum. S/P I+D of right heel, POD #2. 2. DM1 with neuropathy. 3. PAD. S/P L BKA. 4. CKD with LELIA. Creatinine elevated this AM, appears to be pre-renal. Plan: Continue vancomycin, goal trough 10-15 and Aztreonam 1g IV Q8H (renally dosed). Day 9 of ABX. Recheck creatinine in the AM.
--- NOTE | 2019-08-01 17:57 | PN ---
Subjective Date of Service: 08/01/19 Interval History: Patient c/o fatigue and persistent lightheadedness. She finds even just talking is exhausting. She understands this is because of her anemia and continues to refuse transfusions. She denies chest pain, difficulty breathing, fever/chills, abd pain. Her leg pain is unchanged from yesterday, she continues to have pain. Family History: Unchanged from Admission Social History: Unchanged from Admission Past Medical History: Unchanged from Admission Objective Active Medications: Acetaminophen (Tylenol Tab*) 650 mg PO Q4H PRN PRN Reason: MILD PAIN or TEMP > 100.4 Last Admin: 07/28/19 01:07 Dose: 650 mg Albuterol/Ipratropium (Duoneb (Albuterol 2.5 Mg/Ipratropium 0.5 Mg)) 1 neb INH [id number] AWAKE PRN PRN Reason: sob/wheexing Aspirin (Aspirin 81 Mg Chew Tab*) 81 mg PO DAILY [facility] Last Admin: 08/01/19 10:57 Dose: 81 mg Atorvastatin Calcium (Lipitor*) 20 mg PO DAILY [facility] Last Admin: 08/01/19 10:57 Dose: 20 mg Carvedilol (Coreg Tab*) 3.125 mg PO BID [place] Last Admin: 08/01/19 10:57 Dose: 3.125 mg Cyclobenzaprine HCl (Flexeril Tab*) 10 mg PO BID PRN PRN Reason: SPASMS Last Admin: 07/26/19 15:10 Dose: 10 mg Dextrose (Dextrose 50% Vial 50 Ml*) 25 ml IV PUSH .FOR FS < 60 - SS PRN PRN Reason: FS < 60 Docusate Sodium (Colace Cap*) 200 mg PO DAILY PRN PRN Reason: CONSTIPATION Fentanyl (Duragesic Patch 25 Mcg/Hr*) 25 mcg TRANSDERM Q72H [facility] Last Admin: 07/30/19 23:14 Dose: 25 mcg Gabapentin (Neurontin Cap(*)) 1,200 mg PO BEDTIME [place] Last Admin: 07/31/19 20:30 Dose: 1,200 mg Heparin Sodium (Porcine) (Heparin Flush Port (Ivad)) 5 ml FLUSH DAILY [facility]; Protocol Last Admin: 08/01/19 11:00 Dose: Not Given Aztreonam 1 gm/ Sodium (Chloride) 50 mls @ 200 mls/hr IVPB Q8H [facility] Last Admin: 08/01/19 13:47 Dose: 200 mls/hr Lactated Ringer's (Lactated Ringers 1000 Ml Bag*) 1,000 mls @ 100 mls/hr IV PER RATE [facility] Last Admin: 08/01/19 08:20 Dose: 100 mls/hr Iron Sucrose 200 mg/ Sodium (Chloride) 110 mls @ 110 mls/hr IVPB DAILY [place] Stop: 08/03/19 18:00 Last Admin: 08/01/19 11:00 Dose: 110 mls/hr Vancomycin HCl 500 mg/ Sodium (Chloride) 250 mls @ 0 mls/hr IVPB 1330 ONE Stop: 08/02/19 13:31 Calcium Gluconate 1 gm/ Sodium (Chloride) 60 mls @ 60 mls/hr IVPB ONCE ONE Stop: 08/01/19 18:49 Insulin Glargine (Lantus(*)) 10 units SUBCUT Q24H [facility] Last Admin: 07/31/19 20:33 Dose: 10 units Insulin Human Lispro (Humalog*) 0 units SUBCUT ACHS [facility]; Protocol Last Admin: 08/01/19 13:47 Dose: 10 units Insulin Human Lispro (Humalog*) 5 units SUBCUT AC [facility] Last Admin: 08/01/19 13:47 Dose: 5 units Melatonin (Melatonin) 3 mg PO BEDTIME [facility] Last Admin: 07/31/19 20:30 Dose: 3 mg Mometasone Furoate/Formoterol Fumar (Dulera 100/5 Mdi*) 2 puff INH DAILY [facility] Last Admin: 08/01/19 11:11 Dose: 2 puff Morphine Sulfate (Morphine Inj (Syringe))*) 2 mg IV Q4H PRN PRN Reason: breakthrough pain Nystatin (Nystatin Top Powder*) 1 applic TOPICAL TID [facility] Last Admin: 08/01/19 14:30 Dose: Not Given Ondansetron HCl (Zofran Inj*) 4 mg IV Q4H PRN PRN Reason: NAUSEA/VOMITING Last Admin: 07/25/19 23:15 Dose: 4 mg Oxycodone/Acetaminophen (Percocet 5/325 Tab*) 1 tab PO Q3H PRN PRN Reason: PAIN - MODERATE Last Admin: 08/01/19 11:11 Dose: 1 tab Pharmacy Consult (Vancomycin Per Pharmacy*) 1 note FOLLOW UP .VANC PER PHARMACY [facility]; Protocol Pharmacy Consult (Vancomycin Random Level*) 1 note FOLLOW UP 0600 ONE Stop: 08/04/19 06:01 Pharmacy Profile Note (Fentanyl Patch Check Q Shift) 1 note FOLLOW UP 0700, 1900 [facility] Last Admin: 08/01/19 07:09 Dose: 1 note Polyethylene Glycol/Electrolytes (Miralax*) 17 gm PO BID [facility] Last Admin: 08/01/19 11:00 Dose: Not Given Pramipexole Dihydrochloride (Mirapex Tab*) 0.5 mg PO BEDTIME [facility] Last Admin: 07/31/19 20:30 Dose: 0.5 mg Prochlorperazine (Compazine Tab*) 10 mg PO Q6H PRN PRN Reason: NAUSEA Last Admin: 07/26/19 06:39 Dose: 10 mg Senna (Senokot 8.6 Mg Tab*) 1 tab PO DAILY PRN PRN Reason: CONSTIPATION Sertraline HCl (Zoloft*) 50 mg PO DAILY [facility] Last Admin: 08/01/19 10:57 Dose: 50 mg Tiotropium Kerrick (Spiriva Respimat 2.5 Mcg) 2 puff INH DAILY [facility] Last Admin: 08/01/19 11:11 Dose: 2 puff Vital Signs - 8 hr 08/01/19 08/01/19 08/01/19 11:11 12:34 13:58 Temperature 99.2 F Pulse Rate 79 Respiratory 17 16 16 Rate Blood Pressure 138/60 (mmHg) O2 Sat by Pulse 98 Oximetry Oxygen Devices in Use Now: Nasal Cannula Appearance: White female who appears older than stated age, laying in bed, appearing in NAD Eyes: No Scleral Icterus, - - PERRL Ears/Nose/Mouth/Throat: Mucous Membranes Moist Neck: NL Appearance and Movements; NL JVP Respiratory: Symmetrical Chest Expansion and Respiratory Effort, Clear to Auscultation Cardiovascular: NL Sounds; No Murmurs; No JVD, RRR Abdominal: - - abd soft, nontender, nondistended Extremities: No Edema, No Clubbing, Cyanosis, - - left BKA; right LE in JAIME wrap Skin: - - right calf wound without surrounding erythema, wound appears with dry base Neurological: Alert and Oriented x 3, NL Muscle Strength and Tone Result Diagrams: 07/31/19 05:25 08/01/19 04:35 Additional Lab and Data: Above labs were pulled into the note, when the note was edited prior to signing. See labs from the day of consultation below. Laboratory Tests 04/24/19 07/25/19 07/25/19 17:32 05:30 05:30 WBC 14.7 H Hgb 7.2 L Hct 24 L Plt Count 424 Sodium 126 L Potassium 4.0 Chloride 92 L Carbon Dioxide 27 BUN 57 H Creatinine 2.40 H Glucose 161 H C-Reactive Protein 50.47 H Microbiology and Other Data: Microbiology 07/24/19 17:12 Aerobic Blood Culture - Preliminary Blood Venous No Growth Day 1 Anaerobic Blood Culture - Preliminary No Growth Day 1 Diagnostic Imaging: Exam Date: 04/14/19 - VL ANK/BRACHIAL INDICES Ankle-brachial indices: Right: Value (SBP) Index Brachial: 153 Posterior tibialis: 171 1.07 Dorsalis pedis: 161 1.01 Digit: 158 0.99 Doppler waveforms (acquired at rest): In the interrogated lower extremity arteries, Doppler waveforms are triphasic in the right lower extremity. Volume pulse recordings (acquired at rest): Volume pulse recordings, measured at the right ankle, measures 31 mm. IMPRESSION: No evidence of claudication or significant arterial insufficiency in the right lower extremity by vascular ultrasound FAY standards. Assess/Plan/Problems-Billing Assessment: Ms. Galarza is a 59 yo F with PMH of DM1, systolic CHF, CKD stage 4, CAD, PVD, HTN, COPD, CVA, peripheral neuropathy, chronic Mckeon; who presented to the ED with c/o worsening RLE wounds and was found to be septic secondary to wound infections. Patient is S/P I&D and partial calcanectomy on 07/27/19. - Patient Problems (1) Anemia Current Visit: No Status: Chronic Code(s): D64.9 - ANEMIA, UNSPECIFIED SNOMED Code(s): 417805778 Comment: - AIDEE and AOCD. Now complicated by acute blood loss from calcanectomy wound - Hgb 5.1 yesterday. Patient continues to refuse transfusions - Lab draws should be limited and ordered with comment to fill only 1/3 of tube. Did not repeat H&H today to limit blood draws and would be low utility due to patient refusing blood transfusions - Iron studies from April showing iron deficiency - Will order additional iron sucrose considering ongoing bleeding - Started epogen - Overwise hemodynamically stable, experiencing dizziness and fatigue - Discussed with patient she is at high risk for additional CVA and NM (2) Diabetic foot infection Current Visit: No Status: Acute Code(s): E11.69 - TYPE 2 DIABETES MELLITUS WITH OTHER SPECIFIED COMPLICATION; L08.9 - LOCAL INFECTION OF THE SKIN AND SUBCUTANEOUS TISSUE, UNSP SNOMED Code(s): 453435114 Comment: - Large wounds to right heel and lateral right calf, both appeared infected initially - Wound care consult appreciated - Appreciate Ortho consult. S/p I&D and right calcanectomy. Further irrigation and wound vac change 07/30/19 due to continued bleeding after wound vac change. Bleeding more controlled today. - Appreciate ID consult. Continue Vanco/Aztreonam. Wound is MRSA positive. - prior hx of L BKA - On fentanyl patch for wound pain since April 2019, will continue with prn oxycodone and morphine considering postoperative phase (3) Sepsis Current Visit: No Status: Acute Comment: - 2/2 diabetic wound infection on LE - Met criteria on admission with leukocytosis and tachycardia. Leukocytosis is persistent but no longer meeting criteria for sepsis - BC negative to date - Plan as above (4) LELIA (acute kidney injury) Current Visit: No Status: Acute Priority: High Code(s): N17.9 - ACUTE KIDNEY FAILURE, UNSPECIFIED SNOMED Code(s): 82244382 Comment: - Acute on Chronic. -Creatinine worsening, likely due to worsening anemia -Holding diuretics - Started continuous IVF (5) HFrEF (heart failure with reduced ejection fraction) Current Visit: Yes Status: Acute Code(s): I50.20 - UNSPECIFIED SYSTOLIC ( CONGESTIVE) HEART FAILURE SNOMED Code(s): 692558027 Comment: -ischemic cardiomyopathy s/p CABG with EF 35-40%, s/p BiV ICD -small pleural effusions on admission, lungs remain clear today -She has good oxygen saturations despite being on 2L oxygen (home requirement is 3L) (6) Diabetes Current Visit: No Status: Acute Code(s): E11.9 - TYPE 2 DIABETES MELLITUS WITHOUT COMPLICATIONS SNOMED Code(s): 13639576 Comment: - Hyperglycemic on admission with glucose >600 - A1c in June 11.2%. Complicated by diabetic neuropathy. - Continue Lispro SS, standing lispro 5U AC, and Lantus (7) Chronic indwelling Mckeon catheter Current Visit: Yes Status: Acute Code(s): Z96.0 - PRESENCE OF UROGENITAL IMPLANTS SNOMED Code(s): 703384407 Comment: - Changed 07/26/19 - Functioning properly. (8) Electrolyte abnormality Current Visit: Yes Status: Acute Code(s): E87.8 - OTH DISORDERS OF ELECTROLYTE AND FLUID BALANCE, NEC SNOMED Code(s): 481197659 Comment: -hypokalemia resolved -now hypocalcemia, repleting (9) COPD (chronic obstructive pulmonary disease) Current Visit: No Status: Chronic Code(s): J44.9 - CHRONIC OBSTRUCTIVE PULMONARY DISEASE, UNSPECIFIED SNOMED Code(s): 00047883 Comment: - Not in exacerbation - Continue DulNiranjan pinkiva (10) DNR (do not resuscitate) Current Visit: No Status: Acute Comment: (11) DVT prophylaxis Current Visit: No Status: Acute Priority: Low Code(s): FBI6017 - SNOMED Code(s): 332418703 Comment: - chemoprophylaxis contraindicated in severe anemia, and SCD to right LE would be possibly damaging to right calf wound Status and Disposition: Inpatient. Need for further wound management and monitoring of severe anemia. Will benefit from PMRU vs JANA at d/c
[2019-08-01] MEDS ORDERED: Calcium Gluconate INJ* 1 GM in NS 0.9% 50 ML* 50 ML IVPB ONE (18:30)
[2019-08-01] MEDS: Insulin GLARGINE(*) 1 UNITS UNIT SUBCUT SCH (20:01)
[2019-08-01] MEDS: Morphine INJ* 2 MG/ML 1 ML SYRINGE (TWO MG - NEW SYRINGE VERSION) IV PRN (20:09)
[2019-08-01] MEDS: Pramipexole TAB* 0.5 MG PO SCH (21:41)
[2019-08-01] MEDS: Gabapentin CAP(*) 400 MG PO SCH (21:42)
[2019-08-01] MEDS: Melatonin 3 MG TAB PO SCH (21:43)
[2019-08-02] MEDS: Aztreonam (*) 1 GM in NS 0.9% 50 ML* 50 ML IVPB SCH ×3 (04:54→20:21)
[2019-08-02] MEDS: Morphine INJ* 2 MG/ML 1 ML SYRINGE (TWO MG - NEW SYRINGE VERSION) IV PRN (04:54)
[2019-08-02] MEDS ORDERED: EPOETIN ALFA-EPBX * 2,000 UNIT/ML VIAL SUBCUT ONE (06:00)
[2019-08-02] MEDS ORDERED: EPOETIN ALFA-EPBX * 10,000 UNIT/ML VIAL SUBCUT ONE (06:00)
[2019-08-02] MEDS ORDERED: EPOETIN ALFA-EPBX * 3,000 UNIT/ML VIAL SUBCUT ONE (06:00)
[2019-08-02 06:52] LABS: Immature Retic Fraction 0.62; RBC Retic Count 2.16 10^6/uL (3.70-4.87); Red Blood Count 2.16 10^6 /uL (3.70-4.87)
[2019-08-02 07:03] LABS: BUN/Creatinine Ratio 28.1 (8-20); Calcium 7.8 mg/dL (8.6-10.3); Corrected Retic Count 1.8 % (0.5-1.5); EGFR African American 17.6 (>60); EGFR Non-African American 14.5 (>60); Hematocrit 16 % (35-47); Hematocrit for Retic CNT 16 % (35-47); Hemoglobin 4.9 g/dL (12.0-16.0); Mean Corpuscular HGB Conc 30 g/dL (31-36); Mean Corpuscular Hemoglobin 23 pg (27-31); Mean Corpuscular Volume 76 fL (80-97); Mean Platelet Volume 8.3 fL (7.4-10.4); Platelet Count 416 10^3/uL (150-450); Potassium 4.8 mmol/L (3.5-5.0); Red Cell Distribution Width 29 % (10-15); White Blood Count 13.2 10^3/uL (3.5-10.8)
[2019-08-02] MEDS: fentaNYL Patch Check Q Shift 1 NOTE FOLLOW UP SCH ×2 (07:17→19:27)
[2019-08-02] MEDS: SPIRIVA Respimat* (tiotropium) 2.5 mcg/inh Inhaler INH SCH (07:58)
[2019-08-02] MEDS: Mometasone/Formoter 100/5 MDI INH SCH (07:59)
[2019-08-02 08:45] LABS: ABS Basophils 0.1 10^3/ul (0-0.2); ABS Eosinophils 0.4 10^3/ul (0-0.6); ABS Lymphocytes 1.1 10^3/ul (1.0-4.8); ABS Monocytes 1.1 10^3/ul (0-0.8); ABS Neutrophils 10.6 10^3/ul (1.5-7.7); Eosinophil % 2.7 %; Lymphocyte % 8.2 %; Nucleated Red Blood Cells % 0.1
[2019-08-02 08:46] LABS: Microcytosis 1+
[2019-08-02 08:47] LABS: Polychromasia 1+
[2019-08-02] MEDS: Insulin LISPRO* 1 UNITS UNIT SUBCUT SCH ×7 (09:29→23:24)
[2019-08-02] MEDS: Polyethylene Glycol 3350* 17 GM PACKET PO SCH ×2 (09:30→23:16)
[2019-08-02] MEDS: Iron Sucrose* 200 MG in NS 0.9% 100 ML* 100 ML IVPB SCH (09:45)
[2019-08-02] MEDS: Lactated Ringers 1000 ML Bag* 1,000 ML IV SCH ×2 (09:45→23:26)
[2019-08-02] MEDS: Sertraline* 50 MG TAB PO SCH (09:48)
[2019-08-02] MEDS: Atorvastatin* 20 MG TAB PO SCH (09:48)
[2019-08-02] MEDS: Aspirin 81 mg CHEW TAB* 81 MG TAB.CHEW PO SCH (09:48)
[2019-08-02] MEDS: oxyCODONE/Acetamin 5/325 MG* TAB PO PRN (09:49)
[2019-08-02] MEDS: Nystatin TOP POWDER* 15 GM BTL TOPICAL SCH ×3 (09:49→23:25)
[2019-08-02] MEDS: Carvedilol TAB* 3.125 MG PO SCH ×2 (09:49→23:16)
[2019-08-02] MEDS: Insulin GLARGINE(*) 1 UNITS UNIT SUBCUT SCH (10:12)
[2019-08-02] MEDS ORDERED: Vancomycin(*) 500 MG in NS 0.9% 250 ML* 250 ML IVPB ONE (13:30)
--- NOTE | 2019-08-02 14:48 | PN ---
Progress Note - Progress Note Date of Service: 08/02/19 SOAP: Subjective: [Pt seen at bedside. She feels lightheaded today. Denies CP, SOB, fever or chills. Right heel is painful. Objective: []General: Appears well, NAD RLE: Dressing is CDI. Heel wound bed is clean without purulence and without bleeding. Placed betadine wet to dry into wound. Calf wound clean, no purulence or bleeding, xeroform, 4x4 to cover. Vital Signs Temp 97.6 F 08/02/19 12:06 Pulse 76 08/02/19 12:06 Resp 16 08/02/19 12:06 BP 130/68 08/02/19 12:06 Pulse Ox 99 08/02/19 12:06 Intake & Output 08/01/19 08/02/19 08/02/19 18:59 06:59 18:59 Intake Total 350 2085 1100 Output Total 675 550 Balance -325 1535 1100 Weight 179 lb 11.2 oz Intake: IV Fluids 925 990 LR 925 990 IVPB 110 110 Iron Sucrose 110 aztreonam 110 Oral 240 1160 Output: Mckeon 675 550 Other: # Bowel Movements 0 Assessment: [] Right leg infection s/p partial calcanectomy, right heel with excision of ulcer and VAC dressing and excision of eschar over right calf with VAC dressing ] Plan: [VAC was removed due to repeated failure of the VAC Daily dressing change by ortho -- Betadine wet to dry for the wound on the calcaneous. Xeraform and 4x4s for the calf wound. Pt has a severely low H&H, blood tubes to be only 1/3 filled. Due to yazdanism beliefs refuses pRBC Continue with pain medication Continue to hold anticoagulation due to low h&H.
--- NOTE | 2019-08-02 15:00 | CONSULT ---
Palliative / Hospice Consult Ordering Provider: Nettie London - PCP-Mau Referal Reason: goals of care/PEG,senna,docusate/fentanyl,oxycodone - Subjective Code Status: DNR Advance Directives Location: No Advance Directives MOLST Part A Completed: Yes - on chart MOLST Part E Completed:: Yes - on chart - History or Present Illness History or Present Illness: 59yo female with DM poorly controlled presents to ER with R foot pain and swelling. She initially presented on 07/22 but refused admission and came back 2 days later. PMH is significant for R lower extremity wound followed in wound clinic, L BKA, anemia due to chronic disease iron deficiency and blood loss due to heel procedure, COPD on home O2 3 liters, CKD stage 4 not wanting dialysis, CHF EF 35-40% & pacer, CAD s/p CABG, carotid stenosis, PAD with multiple stents , gastroparesis, HTN, hyperlipidemia, peripheral neuropathy and h/o CVA. 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 Studies ekg-sinus tach, CXR-small pleural effusion, mild atelectasis and interstitial pulm edema, lower extremity CT-post aspect of calcaneous is avulsed & fragmented, ekg#2-paced, brain CT neg, H/H-4.9/16( baseline is hbg 7) BUN/Cr 92/3.27 egfr 14.5, Ca 7.8, alb 2.3, blood cult neg, soft tissue positive for MRSA. In the past year pt has been hospitalized 03/08- for dyspnea but left A, 04/24-05/07 for R lower leg wound infection and went to [place] for rehab for a month. All history is from the pt and medical records. Lab Values: Abnormal Lab Results 08/01/19 08/01/19 08/01/19 16:29 16:30 21:20 WBC RBC RBC (Retic) Hgb Hct HCT (Retic) MCV MCH MCHC RDW Plt Count MPV Neut % (Auto) Lymph % (Auto) Stanley % (Auto) Eos % (Auto) Baso % (Auto) Absolute Neuts (auto) Absolute Lymphs (auto) Absolute Monos (auto) Absolute Eos (auto) Absolute Basos (auto) Absolute Nucleated RBC Nucleated RBC % Polychromasia Hypochromasia Basophilic Stippling Anisocytosis Microcytosis Retic Count, Calc Corrected Retic Count Retic Shift Factor Retic Production Index Immature Retic Fraction Mean Retic Volume Sodium Potassium Chloride Carbon Dioxide Anion Gap BUN Creatinine Est GFR ( Amer) Est GFR (Non-Af Amer) BUN/Creatinine Ratio Glucose POC Glucose (mg/dL) 161 H 134 H Calcium Ionized Calcium 1.06 L 08/02/19 08/02/19 08/02/19 06:30 06:30 07:22 WBC 13.2 H RBC 2.16 L RBC (Retic) 2.16 L Hgb 4.9 L* Hct 16 L HCT (Retic) 16 L MCV 76 L MCH 23 L MCHC 30 L RDW 29 H Plt Count 416 MPV 8.3 Neut % (Auto) 79.9 Lymph % (Auto) 8.2 Stanley % (Auto) 8.1 Eos % (Auto) 2.7 Baso % (Auto) 1.1 Absolute Neuts (auto) 10.6 H Absolute Lymphs (auto) 1.1 Absolute Monos (auto) 1.1 H Absolute Eos (auto) 0.4 Absolute Basos (auto) 0.1 Absolute Nucleated RBC 0.0 Nucleated RBC % 0.1 Polychromasia 1+ Hypochromasia 2+ Basophilic Stippling 1+ Anisocytosis 3+ Microcytosis 1+ Retic Count, Calc 4.4 H Corrected Retic Count 1.8 H Retic Shift Factor 2.5 Retic Production Index 0.70 Immature Retic Fraction 0.62 Mean Retic Volume 119.4 Sodium 135 Potassium 4.8 Chloride 96 L Carbon Dioxide 32 Anion Gap 7 BUN 92 H Creatinine 3.27 H Est GFR ( Amer) 17.6 Est GFR (Non-Af Amer) 14.5 BUN/Creatinine Ratio 28.1 H Glucose 94 POC Glucose (mg/dL) 124 H Calcium 7.8 L Ionized Calcium 08/02/19 12:28 WBC RBC RBC (Retic) Hgb Hct HCT (Retic) MCV MCH MCHC RDW Plt Count MPV Neut % (Auto) Lymph % (Auto) Stanley % (Auto) Eos % (Auto) Baso % (Auto) Absolute Neuts (auto) Absolute Lymphs (auto) Absolute Monos (auto) Absolute Eos (auto) Absolute Basos (auto) Absolute Nucleated RBC Nucleated RBC % Polychromasia Hypochromasia Basophilic Stippling Anisocytosis Microcytosis Retic Count, Calc Corrected Retic Count Retic Shift Factor Retic Production Index Immature Retic Fraction Mean Retic Volume Sodium Potassium Chloride Carbon Dioxide Anion Gap BUN Creatinine Est GFR ( Amer) Est GFR (Non-Af Amer) BUN/Creatinine Ratio Glucose POC Glucose (mg/dL) 174 H Calcium Ionized Calcium Laboratory Last Values WBC 13.2 10^3/uL (3.5-10.8) H 08/02/19 06:30 RBC 2.16 10^6 /uL (3.70-4.87) L 08/02/19 06:30 RBC (Retic) 2.16 10^6/uL (3.70-4.87) L 08/02/19 06:30 Hgb 4.9 g/dL (12.0-16.0) L* 08/02/19 06:30 Hct 16 % (35-47) L 08/02/19 06:30 HCT (Retic) 16 % (35-47) L 08/02/19 06:30 MCV 76 fL (80-97) L 08/02/19 06:30 MCH 23 pg (27-31) L 08/02/19 06:30 MCHC 30 g/dL (31-36) L 08/02/19 06:30 RDW 29 % (10-15) H 08/02/19 06:30 Plt Count 416 10^3/uL (150-450) 08/02/19 06:30 MPV 8.3 fL (7.4-10.4) 08/02/19 06:30 Neut % (Auto) 79.9 % 08/02/19 06:30 Lymph % (Auto) 8.2 % 08/02/19 06:30 Stanley % (Auto) 8.1 % 08/02/19 06:30 Eos % (Auto) 2.7 % 08/02/19 06:30 Baso % (Auto) 1.1 % 08/02/19 06:30 Absolute Neuts (auto) 10.6 10^3/ul (1.5-7.7) H 08/02/19 06:30 Absolute Lymphs (auto) 1.1 10^3/ul (1.0-4.8) 08/02/19 06:30 Absolute Monos (auto) 1.1 10^3/ul (0-0.8) H 08/02/19 06:30 Absolute Eos (auto) 0.4 10^3/ul (0-0.6) 08/02/19 06:30 Absolute Basos (auto) 0.1 10^3/ul (0-0.2) 08/02/19 06:30 Absolute Nucleated RBC 0.0 10^3/ul 08/02/19 06:30 Nucleated RBC % 0.1 08/02/19 06:30 Large Platelets Present 07/29/19 05:00 Polychromasia 1+ 08/02/19 06:30 Hypochromasia 2+ 08/02/19 06:30 Basophilic Stippling 1+ 08/02/19 06:30 Anisocytosis 3+ 08/02/19 06:30 Microcytosis 1+ 08/02/19 06:30 Macrocytosis 1+ 07/28/19 06:25 ESR 87 mm/Hr (0-29) H 07/31/19 05:25 Retic Count, Calc 4.4 % (0.5-1.5) H 08/02/19 06:30 Corrected Retic Count 1.8 % (0.5-1.5) H 08/02/19 06:30 Retic Shift Factor 2.5 08/02/19 06:30 Retic Production Index 0.70 08/02/19 06:30 Immature Retic Fraction 0.62 08/02/19 06:30 Mean Retic Volume 119.4 08/02/19 06:30 INR (Anticoag Therapy) 1.31 (0.82-1.09) H 07/27/19 06:30 APTT 35.3 seconds (26.0-38.0) 07/24/19 17:14 VBG pH 7.33 (7.32-7.43) 07/24/19 17:13 VBG pCO2 45 mmHg (41-51) 07/24/19 17:13 VBG pO2 44.0 mmHg (35-45) 07/24/19 17:13 VBG HCO3 22.3 mmol/L (24-28) L 07/24/19 17:13 VBG O2 Saturation 72.8 % (70-80) 07/24/19 17:13 VBG Base Excess -2.4 mmol/L (0.0-4.0) L 07/24/19 17:13 Sodium 135 mmol/L (135-145) 08/02/19 06:30 Potassium 4.8 mmol/L (3.5-5.0) 08/02/19 06:30 Chloride 96 mmol/L (101-111) L 08/02/19 06:30 Carbon Dioxide 32 mmol/L (22-32) 08/02/19 06:30 Anion Gap 7 mmol/L (2-11) 08/02/19 06:30 BUN 92 mg/dL (6-24) H 08/02/19 06:30 Creatinine 3.27 mg/dL (0.51-0.95) H 08/02/19 06:30 Est GFR ( Amer) 17.6 (>60) 08/02/19 06:30 Est GFR (Non-Af Amer) 14.5 (>60) 08/02/19 06:30 BUN/Creatinine Ratio 28.1 (8-20) H 08/02/19 06:30 Glucose 94 mg/dL (70-100) 08/02/19 06:30 POC Glucose (mg/dL) 174 mg/dL (70-100) H 08/02/19 12:28 Glucose Meter Confirm 356 mg/dL (70-100) H 08/01/19 08:35 Lactic Acid 1.9 mmol/L (0.5-2.0) 07/24/19 17:14 Calcium 7.8 mg/dL (8.6-10.3) L 08/02/19 06:30 Ionized Calcium 1.06 mmol/L (1.16-1.32) L 08/01/19 16:30 Magnesium 2.4 mg/dL (1.9-2.7) 07/31/19 05:25 Total Bilirubin 0.60 mg/dL (0.2-1.0) 07/26/19 06:15 AST 15 U/L (13-39) 07/26/19 06:15 ALT 8 U/L (7-52) 07/26/19 06:15 Alkaline Phosphatase 298 U/L (34-104) H 07/26/19 06:15 C-Reactive Protein 41.49 mg/L (<8.01) H 07/31/19 05:25 Total Protein 5.3 g/dL (6.4-8.9) L 07/26/19 06:15 Albumin 2.3 g/dL (3.2-5.2) L 07/26/19 06:15 Globulin 3.0 g/dL (2-4) 07/26/19 06:15 Albumin/Globulin Ratio 0.8 (1-3) L 07/26/19 06:15 Urine Color Yellow 07/26/19 15: Urine Appearance Turbid 07/26/19 15:19 Urine pH 5.0 (5-9) 07/26/19 15:19 Ur Specific [place] 1.009 (1.010-1.030) L 07/26/19 15:19 Urine Protein 2+(100 mg/dl) (Negative) A 07/26/19 15: Urine Ketones Negative (Negative) 07/26/19 15: Urine Blood 1+ (Negative) A 07/26/19 15: Urine Nitrate Negative (Negative) 07/26/19 15: Urine Bilirubin Negative (Negative) 07/26/19 15: Urine Urobilinogen Negative (Negative) 07/26/19 15:19 Ur Leukocyte Esterase 3+ (Negative) A 07/26/19 15:19 Urine WBC (Auto) 3+(>20/hpf) (Absent) A 07/26/19 15:19 Urine RBC (Auto) Trace(0-2/hpf) (Absent) 07/26/19 15:19 Ur Squamous Epith Cells Present (Absent) A 07/26/19 15: Urine Bacteria Absent (Absent) 07/26/19: Urine Yeast Present (Absent) A 07/26/19: Urine Glucose 2+(150 mg/dl) (Negative) A 07/26/19: Random Vancomycin 23.4 mcg/mL 08/01/19 04:35 - Objective Active Medications: Acetaminophen (Tylenol Tab*) 650 mg PO Q4H PRN PRN Reason: MILD PAIN or TEMP > 100.4 Last Admin: 07/28/19 01:07 Dose: 650 mg Albuterol/Ipratropium (Duoneb (Albuterol 2.5 Mg/Ipratropium 0.5 Mg)) 1 neb INH [id number] AWAKE PRN PRN Reason: sob/wheexing Aspirin (Aspirin 81 Mg Chew Tab*) 81 mg PO DAILY [facility] Last Admin: 08/02/19 09:48 Dose: 81 mg Atorvastatin Calcium (Lipitor*) 20 mg PO DAILY [facility] Last Admin: 08/02/19 09:48 Dose: 20 mg Carvedilol (Coreg Tab*) 3.125 mg PO BID [facility] Last Admin: 08/02/19 09:49 Dose: 3.125 mg Cyclobenzaprine HCl (Flexeril Tab*) 10 mg PO BID PRN PRN Reason: SPASMS Last Admin: 07/26/19 15:10 Dose: 10 mg Dextrose (Dextrose 50% Vial 50 Ml*) 25 ml IV PUSH .FOR FS < 60 - SS PRN PRN Reason: FS < 60 Docusate Sodium (Colace Cap*) 200 mg PO DAILY PRN PRN Reason: CONSTIPATION Fentanyl (Duragesic Patch 25 Mcg/Hr*) 25 mcg TRANSDERM Q72H [facility] Last Admin: 07/30/19 23:14 Dose: 25 mcg Gabapentin (Neurontin Cap(*)) 1,200 mg PO BEDTIME [facility] Last Admin: 08/01/19 21:42 Dose: 1,200 mg Heparin Sodium (Porcine) (Heparin Flush Port (Ivad)) 5 ml FLUSH DAILY [facility]; Protocol Last Admin: 08/02/19 09:45 Dose: Not Given Aztreonam 1 gm/ Sodium (Chloride) 50 mls @ 200 mls/hr IVPB Q8H [facility] Last Admin: 08/02/19 13:36 Dose: 200 mls/hr Lactated Ringer's (Lactated Ringers 1000 Ml Bag*) 1,000 mls @ 100 mls/hr IV PER RATE [facility] Last Admin: 08/02/19 09:45 Dose: 100 mls/hr Iron Sucrose 200 mg/ Sodium (Chloride) 110 mls @ 110 mls/hr IVPB DAILY [place] Stop: 08/03/19 18:00 Last Admin: 08/02/19 09:45 Dose: 110 mls/hr Vancomycin HCl 500 mg/ Sodium (Chloride) 250 mls @ 166.667 mls/hr IVPB 1330 ONE Stop: 08/02/19 14:59 Last Admin: 08/02/19 14:28 Dose: 166.667 mls/hr Insulin Glargine (Lantus(*)) 13 units SUBCUT Q24H [facility] Last Admin: 08/02/19 10:12 Dose: Not Given Insulin Human Lispro (Humalog*) 0 units SUBCUT ACHS [facility]; Protocol Last Admin: 08/02/19 14:17 Dose: Not Given Insulin Human Lispro (Humalog*) 5 units SUBCUT AC [facility] Last Admin: 08/02/19 14:16 Dose: Not Given Melatonin (Melatonin) 3 mg PO BEDTIME [facility] Last Admin: 08/01/19 21:43 Dose: Not Given Mometasone Furoate/Formoterol Fumar (Dulera 100/5 Mdi*) 2 puff INH DAILY [facility] Last Admin: 08/02/19 07:59 Dose: 2 puff Morphine Sulfate (Morphine Inj (Syringe))*) 2 mg IV Q4H PRN PRN Reason: breakthrough pain Last Admin: 08/02/19 04:54 Dose: 2 mg Nystatin (Nystatin Top Powder*) 1 applic TOPICAL TID [facility] Last Admin: 08/02/19 14:28 Dose: Not Given Ondansetron HCl (Zofran Inj*) 4 mg IV Q4H PRN PRN Reason: NAUSEA/VOMITING Last Admin: 07/25/19 23:15 Dose: 4 mg Oxycodone/Acetaminophen (Percocet 5/325 Tab*) 1 tab PO Q3H PRN PRN Reason: PAIN - MODERATE Last Admin: 08/02/19 09:49 Dose: 1 tab Pharmacy Consult (Vancomycin Per Pharmacy*) 1 note FOLLOW UP .VANC PER PHARMACY [facility]; Protocol Pharmacy Consult (Vancomycin Random Level*) 1 note FOLLOW UP 0600 ONE Stop: 08/04/19 06:01 Pharmacy Profile Note (Fentanyl Patch Check Q Shift) 1 note FOLLOW UP 0700, 1900 [facility] Last Admin: 08/02/19 07:17 Dose: 1 note Polyethylene Glycol/Electrolytes (Miralax*) 17 gm PO BID [facility] Last Admin: 08/02/19 09:30 Dose: Not Given Pramipexole Dihydrochloride (Mirapex Tab*) 0.5 mg PO BEDTIME [facility] Last Admin: 08/01/19 21:41 Dose: 0.5 mg Prochlorperazine (Compazine Tab*) 10 mg PO Q6H PRN PRN Reason: NAUSEA Last Admin: 07/26/19 06:39 Dose: 10 mg Senna (Senokot 8.6 Mg Tab*) 1 tab PO DAILY PRN PRN Reason: CONSTIPATION Sertraline HCl (Zoloft*) 50 mg PO DAILY [facility] Last Admin: 08/02/19 09:48 Dose: 50 mg Tiotropium Parker (Spiriva Respimat 2.5 Mcg) 2 puff INH DAILY [facility] Last Admin: 08/02/19 07:58 Dose: 2 puff Vital Signs: Vital Signs: Temp Pulse Resp BP Pulse Ox 97.6 F 76 16 130/68 99 08/02/19 12:06 08/02/19 12:06 08/02/19 12:06 08/02/19 12:06 08/02/19 12:06 Patient Weight: Weight 81.511 kg Intake and Output: Intake & Output 07/31/19 08/01/19 08/02/19 08/03/19 06:59 06:59 06:59 06:59 Intake Total 885 2466 2435 1580 Output Total 1350 1150 1225 550 Balance -465 1316 1210 1030 Weight 74.707 kg 78.744 kg 81.511 kg Intake: IV Fluids 530 925 990 LR 925 990 NS (0.9%) 30 lr 500 IVPB 55 466 110 110 ABX - VANCOMYCIN 336 Iron Sucrose 110 aztreonam 55 130 110 Oral 300 2000 1400 480 Output: Urine 550 [place] 1350 1150 1225 Other: Date of Last Bowel 07/31/19 Movement # Bowel Movements 2 0 Estimated Stool Amount Large ADLs: Meal Record Start: 07/24/19 18: 53 Freq: Status: Active Protocol: Created 07/24/19 18:53 System (Rec: 07/24/19 18:53 System U-M16) Document 07/25/19 14:30 [id number] (Rec: 07/25/19 14:31 [id number] U-M17) Document 07/27/19 22:35 [id number] (Rec: 07/27/19 22:35 [id number] U-M18) Document 07/28/19 13:03 [id number] (Rec: 07/28/19 16:04 [id number] U-M18) Document 07/31/19 10:00 [id number] (Rec: 07/31/19 11:48 [id number] SSU-C01) Document 08/01/19 19:00 [id number] (Rec: 08/01/19 19:01 [id number] SSU-M18) Intake and Output Start: 07/24/19 14: 59 Freq: Status: Active Protocol: Created 07/24/19 14:59 System (Rec: 07/24/19 14:59 System [id number]) Document 07/30/19 05:55 [id number] (Rec: 07/30/19 05:55 [id number] SSU-M22) Document 07/30/19 22:38 [id number] (Rec: 07/30/19 22:38 [id number] SSU-M18) Document 07/31/19 00:14 [id number] (Rec: 07/31/19 00:14 [id number] SSU-M13) Document 07/31/19 03:11 [id number] (Rec: 07/31/19 03:12 [id number] SSU-M13) Document 07/31/19 06:07 [id number] (Rec: 07/31/19 06:16 [id number] SSU-M13) Document 07/31/19 22:44 [id number] (Rec: 07/31/19 22:44 [id number] SSU-C08) Document 08/01/19 05:31 [id number] (Rec: 08/01/19 05:31 [id number] SSU-M17) Document 08/01/19 14:14 [id number] (Rec: 08/01/19 14:15 [id number] SSU-C01) Document 08/01/19 19:04 [id number] (Rec: 08/01/19 19:04 [id number] SSU-M18) Document 08/01/19 22:53 [id number] (Rec: 08/01/19 22:54 [id number] SSU-M18) Document 08/02/19 14:52 [id number] (Rec: 08/02/19 14:54 [id number] SSU-M17) Intake and Output Start: 07/24/19 18: 53 Freq: Status: Active Protocol: Created 07/24/19 18:53 System (Rec: 07/24/19 18:53 System SSU-M16) Document 07/24/19 22:00 [id number] (Rec: 07/24/19 22:21 [id number] SSU-C12) Document 07/24/19 22:40 [id number] (Rec: 07/24/19 22:41 [id number] SSU-M17) Document 07/25/19 05:04 [id number] (Rec: 07/25/19 05:08 [id number] SSU-M18) Document 07/25/19 14:30 [id number] (Rec: 07/25/19 14:31 [id number] SSU-M17) Document 07/25/19 21:34 [id number] (Rec: 07/25/19 21:35 [id number] SSU-M07) Document 07/26/19 05:04 [id number] (Rec: 07/26/19 05:08 [id number] SSU-M07) Document 07/26/19 14:43 [id number] (Rec: 07/26/19 14:44 [id number] SSU-M17) Document 07/26/19 20:34 [id number] (Rec: 07/26/19 20:36 [id number] SSU-M18) Document 07/26/19 22:17 [id number] (Rec: 07/26/19 22:18 [id number] SSU-M18) Document 07/27/19 06:00 [id number] (Rec: 07/27/19 06:05 [id number] SSU-M17) Document 07/27/19 14:00 ALA7601 (Rec: 07/27/19 14:25 [id number] SSU-C02) Document 07/27/19 22:35 QHQ1060 (Rec: 07/27/19 22:39 [id number] SSU-M18) Document 07/28/19 06:00 [id number] (Rec: 07/28/19 06:23 [id number] TELE-M14) Document 07/28/19 13:09 [id number] (Rec: 07/28/19 13:10 [id number] SSU-M18) Document 07/28/19 15:59 [id number] (Rec: 07/28/19 16:03 [id number] SSU-M18) Document 07/28/19 22:15 [id number] (Rec: 07/28/19 22:15 [id number] SSU-M15) Document 07/29/19 05:00 [id number] (Rec: 07/29/19 05:19 [id number] SSU-M18) Document 07/29/19 11:48 [id number] (Rec: 07/29/19 11:49 [id number] SSU-M18) Document 07/29/19 14:52 [id number] (Rec: 07/29/19 14:52 [id number] SSU-M18) Document 07/29/19 22:30 [id number] (Rec: 07/29/19 23:16 [id number] SSU-C08) Document 07/30/19 05:55 [id number] (Rec: 07/30/19 05:55 [id number] SSU-M22) Document 07/30/19 22:38 [id number] (Rec: 07/30/19 22:38 [id number] SSU-M18) Document 07/31/19 00:14 [id number] (Rec: 07/31/19 00:14 [id number] SSU-M13) Document 07/31/19 03:11 [id number] (Rec: 07/31/19 03:12 [id number] SSU-M13) Document 07/31/19 06:07 [id number] (Rec: 07/31/19 06:16 [id number] SSU-M13) Document 07/31/19 22:44 [id number] (Rec: 07/31/19 22:44 [id number] SSU-C08) Eyes: No Scleral Icterus, - - PERRL Ears/Nose/Mouth/Throat: Mucous Membranes Moist Neck: NL Appearance and Movements; NL JVP Cardiovascular: NL Sounds; No Murmurs; No JVD, RRR Respiratory: Symmetrical Chest Expansion and Respiratory Effort Abdominal: NL Sounds; No Tenderness; No Distention, - - abd soft, nontender, nondistended Extremities: No Edema, No Clubbing, Cyanosis, - - left BKA; right LE in JAIME wrap Neurological: Alert and Oriented x 3, NL Muscle Strength and Tone - Assessment Assessment: 59yo female with anemia, CKD not on dialysis, CHF EF 35%, chronic wound infections requesting hospice - Plan Consult Plan (MU): Hospice Plan: Long discussion with pt about her goals of care. She recently became a Jehov[employer]' s Witness and doesn't want blood. She is aware that it may cause her to sooner. She is not interested in rehab she feels too weak. After her last hospitalization in April 2019 she went to [facility] for rehab which she didn't like and doesn't want to go back or try a new SNF. She is very interested in [facility], if there are no beds she would like to be on home hospice and when a bed becomes available go to residence. She does have some help with aides but she may need more. Pt does have medicaid but currently she is paying for the aides?? Informed disease case manager about hospice referral. Pt has been feeling poorly for a few months and feels her body has had enough and she is dying, which she is okay with especially with her recent scientologist conversion. Pt has been enrolled in hospice in the past but was discharged because her health improved. Hospice eligibility is based on severe anemia(iron deficiency, blood loss and anemia of chronic disease) not allowing blood transfusion, R heel would infection s/p I&D with calcanectomy, CKD(egfr 14.5) not wanting dialysis, CHF EF 35-40% prone to flash pulmonary edema, poorly controlled DM hbgA1C 11.2 and poor nutrition alb 2.3. KPS 40%, PPS 40% - Time On Unit Date of Evaluation: 08/02/19 Hospice Consult Time in: 14:00 Hospice Consult Time Out: 15:30 Hospice Consult Time Total: 90 > 50% of Time Spend In Counseling or Coordinating Care: Yes
--- NOTE | 2019-08-02 18:14 | PN ---
Subjective Date of Service: 08/02/19 Interval History: Patient feels more fatigued and lightheaded today. She tells me "sometimes it's hard to find the right words" and endorses feeling mentally foggy. She denies extremity sensory changes or weakness. Denies visual changes, chest pain, difficulty breathing, fever/chills, abd pain. She has members of her christian visiting at time of evaluation. Family History: Unchanged from Admission Social History: Unchanged from Admission Past Medical History: Unchanged from Admission Objective Active Medications: Acetaminophen (Tylenol Tab*) 650 mg PO Q4H PRN PRN Reason: MILD PAIN or TEMP > 100.4 Last Admin: 07/28/19 01:07 Dose: 650 mg Albuterol/Ipratropium (Duoneb (Albuterol 2.5 Mg/Ipratropium 0.5 Mg)) 1 neb INH [id number] AWAKE PRN PRN Reason: sob/wheexing Aspirin (Aspirin 81 Mg Chew Tab*) 81 mg PO DAILY [facility] Last Admin: 08/02/19 09:48 Dose: 81 mg Atorvastatin Calcium (Lipitor*) 20 mg PO DAILY [facility] Last Admin: 08/02/19 09:48 Dose: 20 mg Carvedilol (Coreg Tab*) 3.125 mg PO BID [facility] Last Admin: 08/02/19 09:49 Dose: 3.125 mg Cyclobenzaprine HCl (Flexeril Tab*) 10 mg PO BID PRN PRN Reason: SPASMS Last Admin: 07/26/19 15:10 Dose: 10 mg Dextrose (Dextrose 50% Vial 50 Ml*) 25 ml IV PUSH .FOR FS < 60 - SS PRN PRN Reason: FS < 60 Docusate Sodium (Colace Cap*) 200 mg PO DAILY PRN PRN Reason: CONSTIPATION Fentanyl (Duragesic Patch 25 Mcg/Hr*) 25 mcg TRANSDERM Q72H [facility] Last Admin: 07/30/19 23:14 Dose: 25 mcg Gabapentin (Neurontin Cap(*)) 1,200 mg PO BEDTIME [facility] Last Admin: 08/01/19 21:42 Dose: 1,200 mg Heparin Sodium (Porcine) (Heparin Flush Port (Ivad)) 5 ml FLUSH DAILY [facility]; Protocol Last Admin: 08/02/19 09:45 Dose: Not Given Aztreonam 1 gm/ Sodium (Chloride) 50 mls @ 200 mls/hr IVPB Q8H [facility] Last Admin: 08/02/19 13:36 Dose: 200 mls/hr Lactated Ringer's (Lactated Ringers 1000 Ml Bag*) 1,000 mls @ 100 mls/hr IV PER RATE [facility] Last Admin: 08/02/19 09:45 Dose: 100 mls/hr Iron Sucrose 200 mg/ Sodium (Chloride) 110 mls @ 110 mls/hr IVPB DAILY [facility] Stop: 08/03/19 18:00 Last Admin: 08/02/19 09:45 Dose: 110 mls/hr Insulin Glargine (Lantus(*)) 13 units SUBCUT Q24H [facility] Last Admin: 08/02/19 10:12 Dose: Not Given Insulin Human Lispro (Humalog*) 0 units SUBCUT ACHS [facility]; Protocol Last Admin: 08/02/19 14:17 Dose: Not Given Insulin Human Lispro (Humalog*) 5 units SUBCUT AC [facility] Last Admin: 08/02/19 14:16 Dose: Not Given Melatonin (Melatonin) 3 mg PO BEDTIME [facility] Last Admin: 08/01/19 21:43 Dose: Not Given Mometasone Furoate/Formoterol Fumar (Dulera 100/5 Mdi*) 2 puff INH DAILY [facility] Last Admin: 08/02/19 07:59 Dose: 2 puff Morphine Sulfate (Morphine Inj (Syringe))*) 2 mg IV Q4H PRN PRN Reason: breakthrough pain Last Admin: 08/02/19 04:54 Dose: 2 mg Nystatin (Nystatin Top Powder*) 1 applic TOPICAL TID [facility] Last Admin: 08/02/19 14:28 Dose: Not Given Ondansetron HCl (Zofran Inj*) 4 mg IV Q4H PRN PRN Reason: NAUSEA/VOMITING Last Admin: 07/25/19 23:15 Dose: 4 mg Oxycodone/Acetaminophen (Percocet 5/325 Tab*) 1 tab PO Q3H PRN PRN Reason: PAIN - MODERATE Last Admin: 08/02/19 09:49 Dose: 1 tab Pharmacy Consult (Vancomycin Per Pharmacy*) 1 note FOLLOW UP .VANC PER PHARMACY [facility]; Protocol Pharmacy Consult (Vancomycin Random Level*) 1 note FOLLOW UP 0600 ONE Stop: 08/04/19 06:01 Pharmacy Profile Note (Fentanyl Patch Check Q Shift) 1 note FOLLOW UP 0700, 1900 [facility] Last Admin: 08/02/19 07:17 Dose: 1 note Polyethylene Glycol/Electrolytes (Miralax*) 17 gm PO BID [facility] Last Admin: 08/02/19 09:30 Dose: Not Given Pramipexole Dihydrochloride (Mirapex Tab*) 0.5 mg PO BEDTIME [facility] Last Admin: 08/01/19 21:41 Dose: 0.5 mg Prochlorperazine (Compazine Tab*) 10 mg PO Q6H PRN PRN Reason: NAUSEA Last Admin: 07/26/19 06:39 Dose: 10 mg Senna (Senokot 8.6 Mg Tab*) 1 tab PO DAILY PRN PRN Reason: CONSTIPATION Sertraline HCl (Zoloft*) 50 mg PO DAILY [facility] Last Admin: 08/02/19 09:48 Dose: 50 mg Tiotropium [place] (Spiriva Respimat 2.5 Mcg) 2 puff INH DAILY [facility] Last Admin: 08/02/19 07:58 Dose: 2 puff Vital Signs - 8 hr 08/02/19 08/02/19 12:06 16:12 Temperature 97.6 F 98.5 F Pulse Rate 76 72 Respiratory 16 18 Rate Blood Pressure 130/68 122/68 (mmHg) O2 Sat by Pulse 99 100 Oximetry Oxygen Devices in Use Now: Nasal Cannula Appearance: Obese, white female, who appears older than stated age, laying upright in bed, appearing in NAD Eyes: No Scleral Icterus, - - PERRL Ears/Nose/Mouth/Throat: Mucous Membranes Moist Neck: NL Appearance and Movements; NL JVP Respiratory: Symmetrical Chest Expansion and Respiratory Effort, Clear to Auscultation Cardiovascular: NL Sounds; No Murmurs; No JVD, RRR Abdominal: - - abd soft, nontender, nondistended Extremities: No Edema, No Clubbing, Cyanosis, - - left BKA; right heel wound no longer with wound vac Skin: - - right lateral calf wound weeping, no surrounding erythema Neurological: Alert and Oriented x 3, NL Muscle Strength and Tone Result Diagrams: 08/02/19 06:30 08/02/19 06:30 Additional Lab and Data: Above labs were pulled into the note, when the note was edited prior to signing. See labs from the day of consultation below. Laboratory Tests 04/24/19 07/25/19 07/25/19 17:32 05:30 05:30 WBC 14.7 H Hgb 7.2 L Hct 24 L Plt Count 424 Sodium 126 L Potassium 4.0 Chloride 92 L Carbon Dioxide 27 BUN 57 H Creatinine 2.40 H Glucose 161 H C-Reactive Protein 50.47 H Microbiology and Other Data: Microbiology 07/24/19 17:12 Aerobic Blood Culture - Preliminary Blood Venous No Growth Day 1 Anaerobic Blood Culture - Preliminary No Growth Day 1 Assess/Plan/Problems-Billing Assessment: Ms. Galarza is a 59 yo F with PMH of DM1, systolic CHF, CKD stage 4, CAD, PVD, HTN, COPD, CVA, peripheral neuropathy, chronic Mckeon; who presented to the ED with c/o worsening RLE wounds and was found to be septic secondary to wound infections. Patient is S/P I&D and partial calcanectomy on 07/27/19. - Patient Problems (1) Anemia Current Visit: No Status: Chronic Code(s): D64.9 - ANEMIA, UNSPECIFIED SNOMED Code(s): 244563723 Comment: - AIDEE and AOCD. Now complicated by acute blood loss from calcanectomy wound - Hgb 4.9 today. Patient continues to refuse transfusions - Lab draws should be limited and ordered with comment to fill only 1/3 of tube. Will limit blood draws and would be low utility due to patient refusing blood transfusions - Iron studies from April showing iron deficiency - Will order additional iron sucrose considering ongoing bleeding - Continue epogen at 15,000 units subq daily - Overwise hemodynamically stable, experiencing dizziness and fatigue - Discussed with patient she is at high risk for additional CVA and AR - Hemodynamically stable given stable BP and HR (2) Diabetic foot infection Current Visit: No Status: Acute Code(s): E11.69 - TYPE 2 DIABETES MELLITUS WITH OTHER SPECIFIED COMPLICATION; L08.9 - LOCAL INFECTION OF THE SKIN AND SUBCUTANEOUS TISSUE, UNSP SNOMED Code(s): 480316075 Comment: - Large wounds to right heel and lateral right calf, both appeared infected initially - Wound care consult appreciated - Appreciate Ortho consult. S/p I&D and right calcanectomy. Further irrigation and wound vac change 07/30/19 due to continued bleeding after wound vac change - Ortho discontinued wound vac today - Appreciate ID consult. Continue Vanco/Aztreonam. Wound is MRSA positive. - prior hx of L BKA - On fentanyl patch for wound pain since April 2019, will continue with prn oxycodone and morphine considering postoperative phase (3) Sepsis Current Visit: No Status: Acute Comment: - 2/2 diabetic wound infection on LE - Met criteria on admission with leukocytosis and tachycardia. Leukocytosis is persistent but no longer meeting criteria for sepsis - BC negative to date - Plan as above (4) LELIA (acute kidney injury) Current Visit: No Status: Acute Priority: High Code(s): N17.9 - ACUTE KIDNEY FAILURE, UNSPECIFIED SNOMED Code(s): 96095365 Comment: - Acute on Chronic. -Creatinine worsening, likely due to worsening anemia -Holding diuretics - Started continuous IVF (5) HFrEF (heart failure with reduced ejection fraction) Current Visit: Yes Status: Acute Code(s): I50.20 - UNSPECIFIED SYSTOLIC ( CONGESTIVE) HEART FAILURE SNOMED Code(s): 437816479 Comment: -ischemic cardiomyopathy s/p CABG with EF 35-40%, s/p BiV ICD -small pleural effusions on admission, lungs remain clear today -She has good oxygen saturations despite being on 2L oxygen (home requirement is 3L) (6) Diabetes Current Visit: No Status: Acute Code(s): E11.9 - TYPE 2 DIABETES MELLITUS WITHOUT COMPLICATIONS SNOMED Code(s): 12540885 Comment: - Hyperglycemic on admission with glucose >600 - A1c in June 11.2%. Complicated by diabetic neuropathy. - Continue Lispro SS, standing lispro 5U AC - Increasing lantus to 13 U and changing time to start in AM (7) Chronic indwelling Mckeon catheter Current Visit: Yes Status: Acute Code(s): Z96.0 - PRESENCE OF UROGENITAL IMPLANTS SNOMED Code(s): 737893576 Comment: - Changed 07/26/19 - Functioning properly. (8) Electrolyte abnormality Current Visit: Yes Status: Acute Code(s): E87.8 - OTH DISORDERS OF ELECTROLYTE AND FLUID BALANCE, NEC SNOMED Code(s): 713133668 Comment: -hypokalemia resolved -now hypocalcemia, repleting (9) COPD (chronic obstructive pulmonary disease) Current Visit: No Status: Chronic Code(s): J44.9 - CHRONIC OBSTRUCTIVE PULMONARY DISEASE, UNSPECIFIED SNOMED Code(s): 80239205 Comment: - Not in exacerbation - Continue Gui Allen (10) DNR (do not resuscitate) Current Visit: No Status: Acute Comment: (11) DVT prophylaxis Current Visit: No Status: Acute Priority: Low Code(s): WPC6752 - SNOMED Code(s): 760939054 Comment: - chemoprophylaxis contraindicated in severe anemia, and SCD to right LE would be possibly damaging to right calf wound Status and Disposition: Inpatient. Need for further wound management. Patient today expresses interest in hospice at discharge.
[2019-08-02] MEDS: fentaNYL PATCH 25 MCG/HR TRANSDERM SCH (23:07)
[2019-08-02] MEDS: Melatonin 3 MG TAB PO SCH (23:16)
[2019-08-02] MEDS: Gabapentin CAP(*) 400 MG PO SCH (23:17)
[2019-08-02] MEDS: Pramipexole TAB* 0.5 MG PO SCH (23:17)
[2019-08-03] MEDS: Aztreonam (*) 1 GM in NS 0.9% 50 ML* 50 ML IVPB SCH ×2 (04:53→12:08)
[2019-08-03] MEDS: fentaNYL Patch Check Q Shift 1 NOTE FOLLOW UP SCH ×2 (07:05→19:29)
[2019-08-03] MEDS: SPIRIVA Respimat* (tiotropium) 2.5 mcg/inh Inhaler INH SCH (08:48)
[2019-08-03] MEDS: Mometasone/Formoter 100/5 MDI INH SCH (08:48)
--- NOTE | 2019-08-03 08:57 | PN ---
Progress Note - Progress Note Date of Service: 08/03/19 Note: Came to see this patient well known to our hospice service, with several qualifications at this time for hospice care: CKD with eGFR of 14, malnutrition with albumin 2.3, and now anemia likely a combination of blood loss anemia and ACD, with Hb dropping and down to 4.9 from 7.0 three days ago. The patient refuses dialysis and transfusions and is even eager to discontinue erythropoietin. I spoke with Dr. León who agrees this patient is appropriate for hospice services and also feels that returning home would present an inadequate care situation. Our residence was full yesterday but a bed opened up overnight, and after speaking with Michelle she is in full agreement with going to [facility]. I will try to arrange this for whenever discharge from the hospital can occur.
[2019-08-03] MEDS ORDERED: EPOETIN ALFA EPBX 40000 UNIT/ML SUBCUT SCH (09:00)
[2019-08-03] MEDS ORDERED: EPOETIN ALFA-EPBX * 10,000 UNIT/ML VIAL SUBCUT SCH (09:00)
[2019-08-03] MEDS ORDERED: EPOETIN ALFA-EPBX * 2,000 UNIT/ML VIAL SUBCUT SCH (09:00)
[2019-08-03] MEDS ORDERED: EPOETIN ALFA-EPBX * 3,000 UNIT/ML VIAL SUBCUT SCH (09:00)
[2019-08-03] MEDS: Insulin LISPRO* 1 UNITS UNIT SUBCUT SCH ×4 (09:24→12:07)
[2019-08-03] MEDS: Aspirin 81 mg CHEW TAB* 81 MG TAB.CHEW PO SCH (10:03)
[2019-08-03] MEDS: Nystatin TOP POWDER* 15 GM BTL TOPICAL SCH ×2 (10:03→17:08)
[2019-08-03] MEDS: Carvedilol TAB* 3.125 MG PO SCH (10:03)
[2019-08-03] MEDS: Iron Sucrose* 200 MG in NS 0.9% 100 ML* 100 ML IVPB SCH (10:03)
[2019-08-03] MEDS: Polyethylene Glycol 3350* 17 GM PACKET PO SCH (10:03)
[2019-08-03] MEDS: Atorvastatin* 20 MG TAB PO SCH (10:03)
[2019-08-03] MEDS: Insulin GLARGINE(*) 1 UNITS UNIT SUBCUT SCH (10:04)
[2019-08-03] MEDS: Sertraline* 50 MG TAB PO SCH (10:06)
[2019-08-03] MEDS: Lactated Ringers 1000 ML Bag* 1,000 ML IV SCH (10:07)
--- NOTE | 2019-08-03 14:52 | PN ---
Progress Note - Progress Note Date of Service: 08/03/19 SOAP: Subjective: [[Pt seen in bed. She has been transferee to hospice. She feels lightheaded, fatigued and feels she has no appetite. Denies CP, SOB, fever or chills. Right heel is painful. Objective: []General: Appears well, NAD RLE: Dressing is CDI. Vital Signs Temp 98.6 F 08/03/19 14:09 Pulse 71 08/03/19 14:09 Resp 20 08/03/19 14:09 BP 119/55 08/03/19 14:09 Pulse Ox 100 08/03/19 14:09 Intake & Output 08/02/19 08/03/19 08/03/19 18:59 06:59 18:59 Intake Total 2192 574 5131 Output Total 550 650 350 Balance 1030 110 933 Weight 182 lb 4.8 oz Intake: IV Fluids 990 1163 LR 990 1036 aztreonam 127 IVPB 110 aztreonam 110 Oral 480 760 120 Output: Urine 550 Mckeon 650 350 Other: # Bowel Movements 1 Estimated Stool Amount Medium Assessment: [] Right leg infection s/p partial calcanectomy, right heel with excision of ulcer and VAC dressing and excision of eschar over right calf with VAC dressing Hospice care.] Plan: [Pt has accepted switch to hospice care. Daily dressing change by nurses at this point, ortho to change dressing once per week -- Betadine wet to dry for the wound on the calcaneous. Xeraform and 4x4s for the calf wound. Pt has a severely low H&H, blood tubes to be only 1/3 filled. Due to orthodoxy beliefs refuses pRBC Continue with pain medication Continue to hold anticoagulation due to low h&H
[2019-08-03] MEDS ORDERED: Morphine INJ* 2 MG/ML 1 ML SYRINGE (TWO MG - NEW SYRINGE VERSION) IV PRN ×2 (17:00→17:03)
[2019-08-03] MEDS ORDERED: LORazepam TAB(*) 0.5 MG PO PRN (17:03)
--- NOTE | 2019-08-03 17:09 | PN ---
Subjective Date of Service: 08/03/19 Interval History: Patient would like to be comfort measures only. Dr. Randall has facilitated arrangements for patient to be discharged to hospice residence tomorrow. Patient has no questions at time of my evaluation. She states she has leg pain. She is in agreement to my stopping all antibiotics and other medications for her chronic medications in the process of making her comfort measures only. Family History: Unchanged from Admission Social History: Unchanged from Admission Past Medical History: Unchanged from Admission Objective Active Medications: Acetaminophen (Tylenol Tab*) 650 mg PO Q4H PRN PRN Reason: MILD PAIN or TEMP > 100.4 Last Admin: 07/28/19 01:07 Dose: 650 mg Albuterol/Ipratropium (Duoneb (Albuterol 2.5 Mg/Ipratropium 0.5 Mg)) 1 neb INH [id number] AWAKE PRN PRN Reason: sob/wheexing Cyclobenzaprine HCl (Flexeril Tab*) 10 mg PO BID PRN PRN Reason: SPASMS Last Admin: 07/26/19 15:10 Dose: 10 mg Dextrose (Dextrose 50% Vial 50 Ml*) 25 ml IV PUSH .FOR FS < 60 - SS PRN PRN Reason: FS < 60 Docusate Sodium (Colace Cap*) 200 mg PO DAILY PRN PRN Reason: CONSTIPATION Fentanyl (Duragesic Patch 25 Mcg/Hr*) 25 mcg TRANSDERM Q72H [facility] Last Admin: 08/02/19 23:07 Dose: 25 mcg Gabapentin (Neurontin Cap(*)) 1,200 mg PO BEDTIME [facility] Last Admin: 08/02/19 23:17 Dose: 1,200 mg Heparin Sodium (Porcine) (Heparin Flush Port (Ivad)) 5 ml FLUSH DAILY [facility]; Protocol Last Admin: 08/03/19 12:07 Dose: Not Given Lorazepam (Ativan Tab(*)) 0.5 mg PO Q4H PRN PRN Reason: ANXIETY Melatonin (Melatonin) 3 mg PO BEDTIME [facility] Last Admin: 08/02/19 23:16 Dose: 3 mg Morphine Sulfate (Morphine Inj (Syringe))*) 2 mg IV Q3H PRN PRN Reason: severe pain Ondansetron HCl (Zofran Inj*) 4 mg IV Q4H PRN PRN Reason: NAUSEA/VOMITING Last Admin: 07/25/19 23:15 Dose: 4 mg Oxycodone/Acetaminophen (Percocet 5/325 Tab*) 1 tab PO Q3H PRN PRN Reason: PAIN - MODERATE Last Admin: 08/02/19 09:49 Dose: 1 tab Pharmacy Profile Note (Fentanyl Patch Check Q Shift) 1 note FOLLOW UP 0700, 1900 [facility] Last Admin: 08/03/19 07:05 Dose: 1 note Prochlorperazine (Compazine Tab*) 10 mg PO Q6H PRN PRN Reason: NAUSEA Last Admin: 07/26/19 06:39 Dose: 10 mg Senna (Senokot 8.6 Mg Tab*) 1 tab PO DAILY PRN PRN Reason: CONSTIPATION Vital Signs - 8 hr 08/03/19 08/03/19 11:13 14:09 Temperature 98.8 F 98.6 F Pulse Rate 75 71 Respiratory 17 20 Rate Blood Pressure 100/75 119/55 (mmHg) O2 Sat by Pulse 98 100 Oximetry Oxygen Devices in Use Now: Nasal Cannula Appearance: Obese, white female, who appears older than stated age, laying in bed, appearing in NAD Eyes: No Scleral Icterus, PERRLA Respiratory: Symmetrical Chest Expansion and Respiratory Effort, - - no tachypnea, not using accessory muscles Cardiovascular: - - Patient politely declines exam Abdominal: - - Patient politely declines exam Extremities: - - Patient politely declines exam Skin: - - skin warm, dry Neurological: Alert and Oriented x 3, NL Muscle Strength and Tone Result Diagrams: 08/02/19 06:30 08/02/19 06:30 Additional Lab and Data: Above labs were pulled into the note, when the note was edited prior to signing. See labs from the day of consultation below. Laboratory Tests 04/24/19 07/25/19 07/25/19 17:32 05:30 05:30 WBC 14.7 H Hgb 7.2 L Hct 24 L Plt Count 424 Sodium 126 L Potassium 4.0 Chloride 92 L Carbon Dioxide 27 BUN 57 H Creatinine 2.40 H Glucose 161 H C-Reactive Protein 50.47 H Microbiology and Other Data: Microbiology 07/24/19 17:12 Aerobic Blood Culture - Preliminary Blood Venous No Growth Day 1 Anaerobic Blood Culture - Preliminary No Growth Day 1 Diagnostic Imaging: Exam Date: 04/14/19 - VL ANK/BRACHIAL INDICES Ankle-brachial indices: Right: Value (SBP) Index Brachial: 153 Posterior tibialis: 171 1.07 Dorsalis pedis: 161 1.01 Digit: 158 0.99 Doppler waveforms (acquired at rest): In the interrogated lower extremity arteries, Doppler waveforms are triphasic in the right lower extremity. Volume pulse recordings (acquired at rest): Volume pulse recordings, measured at the right ankle, measures 31 mm. IMPRESSION: No evidence of claudication or significant arterial insufficiency in the right lower extremity by vascular ultrasound [facility] standards. Assess/Plan/Problems-Billing Assessment: Ms. Galarza is a 59 yo F with PMH of DM1, systolic CHF, CKD stage 4, CAD, PVD, HTN, COPD, CVA, peripheral neuropathy, chronic Mckeon; who presented to the ED with c/o worsening RLE wounds and was found to be septic secondary to wound infections. Patient is S/P I&D and partial calcanectomy on 07/27/19. Resulting significant anemia, most recent hgb 4.9. Patient refuses pRBCs for samaritan reasons. - Patient Problems (1) Comfort measures only status Current Visit: Yes Status: Acute Code(s): Z51.5 - ENCOUNTER FOR PALLIATIVE CARE SNOMED Code(s): 36282595147867 Comment: -as per patient request, making her comfort measures only prior to leaving hospital to be discharged to hospice residence -discontinued all medications except those for comfort, including epogen and fluids which were used in the setting of severe anemia with transfusion refusal -ordered more frequent prn morphine and started prn ativan -continued home fentanyl patch, flexeril, gabapentin, and duonebs for comfort purposes -appreciate palliative consult (2) Chronic indwelling Mckeon catheter Current Visit: Yes Status: Acute Code(s): Z96.0 - PRESENCE OF UROGENITAL IMPLANTS SNOMED Code(s): 026917747 Comment: - Changed 07/26/19 - Functioning properly. (3) DNR (do not resuscitate) Current Visit: No Status: Acute Comment: Status and Disposition: Anticipate d/c to hospice residence tomorrow AM
[2019-08-03] MEDS: Prochlorperazine TAB* 10 MG PO PRN (18:11)
[2019-08-03] MEDS: oxyCODONE/Acetamin 5/325 MG* TAB PO PRN ×2 (18:11→22:31)
--- NOTE | 2019-08-03 21:56 | DS ---
DISCHARGE SUMMARY: ADDENDUM: Morphine oral concentrate 5 mg/0.25 mL oral syringe, 5 mg sublingual q.2 hours p.r.n. [id number] pain. OSCAR BARRY [id number]/[facility] #: [id number] [facility] MEDICAL CENTERJaylen
[2019-08-03] MEDS: Gabapentin CAP(*) 400 MG PO SCH (22:14)
[2019-08-03] MEDS: Melatonin 3 MG TAB PO SCH (22:15)
[2019-08-03] MEDS ORDERED: Ondansetron ODT TAB* 4 MG SL PRN (22:55)
--- NOTE | 2019-08-03 23:52 | DS ---
DISCHARGE SUMMARY: DATE OF ADMISSION: 07/24/19 DATE OF ANTICIPATED DISCHARGE: 08/04/19 ATTENDING PHYSICIAN WHILE IN THE HOSPITAL: Dr. Cole Larios* (dictated by OSCAR Majano). CONSULTING INFECTIOUS DISEASE: Dr. Brent Damon CONSULTING ORTHOPEDIC PHYSICIAN: Initially, Dr. Charan Marsh. PROCEDURES WHILE IN THE HOSPITAL: Partial right calcanectomy, excision of ulcer , and VAC dressing with Dr. Hess on 07/27/19. PRIMARY DIAGNOSES: 1. Sepsis secondary to infection of diabetic lower extremity ulcers. 2. Severe anemia in combination of baseline anemia of chronic disease, iron deficiency anemia, and postoperative bleeding. SECONDARY DIAGNOSES: 1. Diabetes mellitus, type 2. 2. Heart failure with reduced ejection fraction, EF 35% to 40%. 3. Chronic kidney disease. 4. Coronary artery disease. 5. Peripheral artery disease. 6. Hypertension. 7. Gastroparesis. 8. Hyperlipidemia. 9. Chronic obstructive pulmonary disease. 10. CVA. 11. Peripheral neuropathy. 12. Carotid stenosis, status post carotid stenting. HISTORY OF PRESENT ILLNESS/HOSPITAL COURSE: Michelle Galarza is a 59-year-old female with past medical history significant for diabetes mellitus type 2, heart failure with reduced ejection fraction, coronary disease, CVA, and COPD, who presented to emergency department due to worsening right lower extremity wound. Please see additional information in the history and physical written by Nell Boyce, nurse practitioner. This discharge summary is a synopsis of her hospital stay and for further information that full EMR should be viewed. In brief, the patient was started on vancomycin and cefepime in the emergency department. Antibiotics were changed to vancomycin and aztreonam by recommendation of Infectious Disease team for treatment of her diabetic wounds. Orthopedics saw the patient in consultation and ultimately performed right calcanectomy and placed the wound VAC. Further in the hospital stay, she had a wound VAC change and at that time there was such significant bleeding that the wound VAC could not be replaced at bedside. Because of this, she was brought to the OR for further debridement and replacement of a new wound VAC. However, due to her already chronic anemia in the setting of this bleeding, she developed a severe anemia. The patient declined blood transfusions due to mandaen reasons. She remained hemodynamically stable despite this. I did start Epogen 15,000 units subcu daily during her stay to counteract this and limited blood draws. Her most recent hemoglobin was collected on 08/02/19 was 4.9. The patient was seen in consultation by Dr. Michelle Randall, the palliative care physician. During this consultation, the patient elected to discharge to hospice and the arrangement for the patient to go with hospice residence was facilitated by Dr. Randall. On 08/03/19, the patient was made comfort measures only and all of her medications except for those to help with respiratory status and pain were stopped including IV antibiotics which was agreeable to the patient. Earlier her hospital stay, the patient was seen by Dr. Ochoa of neurology service due to sudden blurred vision of the eye and concerns of acute stroke; however, this is ruled out and at that time Dr. Ochoa recommended ophthalmology followup. Obviously considering the patient's discharge to hospice, this is not necessary. DISCHARGE PLAN: Diet: Unrestricted diet. Activity: The patient may participate in any activity as tolerated. The patient will be discharged to the hospice residence. 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 This discharge summary has been dictated in advance. DISCHARGE MEDICATIONS: 1. Tylenol 650 mg p.o. q.4 hours p.r.n., mild pain. 2. DuoNeb q.4 hours p.r.n. shortness of breath /wheezing. 3. Flexeril 2 mg p.o. b.i.d. p.r.n. muscle spasms. 4. Colace 200 mg p.o. b.i.d. p.r.n. constipation. 5. Fentanyl 25 mcg transdermal patch daily. 6. Gabapentin 1200 mg p.o. at bedtime. 7. Ativan 0.5 mg p.o. q.4 hours p.r.n. pain. 8. Melatonin 3 mg p.o. at bedtime. 9. Oxycodone 1 tab p.o. q.3 hours p.r.n. moderate pain. 10. Prochlorperazine 1 tab 10 mg p.o. q.6 hours p.r.n. nausea. 11. Senna 1 tab p.o. daily, p.r.n. constipation. 12. Morphine oral concentrate 5 mg/0.25 mL oral syringe, 5 mg sublingual q.2 hours p.r.n. [id number] pain. CONDITION ON DISCHARGE: Stable for transport, though guarded. DISPOSITION: To hospice residence. TIME SPENT: Approximately 40 minutes was spent on this discharge, approximately half of this time was spent at bedside evaluating the patient and discussing the plan of care. Answering questions regarding hospice. OSCAR MAJANO [id number]/[facility] #: [id number]/[facility] #: [id number] [facility]
[2019-08-04] MEDS: Insulin LISPRO* 1 UNITS UNIT SUBCUT SCH ×2 (05:03)
[2019-08-04] MEDS ORDERED: Vancomycin Random Level* NOTE FOLLOW UP ONE (06:00)
[2019-08-04] MEDS: Morphine ORAL CONCENTRATE* 5 MG/0.25 ML ORAL.SYRIN SL PRN ×2 (06:01→08:46)
[2019-08-04] MEDS: fentaNYL Patch Check Q Shift 1 NOTE FOLLOW UP SCH (06:57)
[2019-08-04 08:38] VITALS: BP 106/46
== END 2019-08-04 08:50 | disposition hospice, inpatient (51) | DRG 854 ==
LOC: ED 14:49 → SSU 18:36 → MED 08-03 13:56
PROVIDERS: ADMIT Internal Medicine; ATTEND Internal Medicine
PROC: 0T2BX0Z Change Drainage Device in Bladder, External Approach (ICD-10-PCS; 2019-07-26)
PROC: 0QBL0ZZ Excision of Right Tarsal, Open Approach (ICD-10-PCS; principal; 2019-07-27 15:30)
PROC: 0QBL0ZZ Excision of Right Tarsal, Open Approach (ICD-10-PCS; 2019-07-30)
DX: A41.02 Sepsis due to Methicillin resistant Staphylococcus aureus (principal); I13.0 Hypertensive heart and chronic kidney disease with heart failure and stage 1 through stage 4 chronic kidney disease, or unspecified chronic kidney disease; L97.419 Non-pressure chronic ulcer of right heel and midfoot with unspecified severity; I96 Gangrene, not elsewhere classified; N18.4 Chronic kidney disease, stage 4 (severe); I50.22 Chronic systolic (congestive) heart failure; L03.115 Cellulitis of right lower limb; D62 Acute posthemorrhagic anemia; E11.52 Type 2 diabetes mellitus with diabetic peripheral angiopathy with gangrene; N17.9 Acute kidney failure, unspecified; I25.10 Atherosclerotic heart disease of native coronary artery without angina pectoris; J44.9 Chronic obstructive pulmonary disease, unspecified; N18.9 Chronic kidney disease, unspecified; M19.90 Unspecified osteoarthritis, unspecified site; M79.7 Fibromyalgia; M41.9 Scoliosis, unspecified; G25.81 Restless legs syndrome; E78.00 Pure hypercholesterolemia, unspecified; F41.9 Anxiety disorder, unspecified; F32.9 Major depressive disorder, single episode, unspecified; H91.91 Unspecified hearing loss, right ear; G43.909 Migraine, unspecified, not intractable, without status migrainosus; F17.210 Nicotine dependence, cigarettes, uncomplicated; K31.84 Gastroparesis; E83.42 Hypomagnesemia; Z66 Do not resuscitate; M10.9 Gout, unspecified; E87.6 Hypokalemia; I25.5 Ischemic cardiomyopathy; E83.51 Hypocalcemia; E66.9 Obesity, unspecified; D63.1 Anemia in chronic kidney disease; Z51.5 Encounter for palliative care; E11.65 Type 2 diabetes mellitus with hyperglycemia; E11.22 Type 2 diabetes mellitus with diabetic chronic kidney disease; E11.621 Type 2 diabetes mellitus with foot ulcer; E11.3591 Type 2 diabetes mellitus with proliferative diabetic retinopathy without macular edema, right eye; E11.43 Type 2 diabetes mellitus with diabetic autonomic (poly)neuropathy; Z53.1 Procedure and treatment not carried out because of patient's decision for reasons of belief and group pressure; E11.36 Type 2 diabetes mellitus with diabetic cataract; E11.42 Type 2 diabetes mellitus with diabetic polyneuropathy; E78.5 Hyperlipidemia, unspecified; Z88.0 Allergy status to penicillin; Z88.2 Allergy status to sulfonamides; Z88.8 Allergy status to other drugs, medicaments and biological substances; Z86.14 Personal history of Methicillin resistant Staphylococcus aureus infection; Z86.19 Personal history of other infectious and parasitic diseases; Z88.6 Allergy status to analgesic agent; Z88.1 Allergy status to other antibiotic agents; Z91.030 Bee allergy status; Z86.74 Personal history of sudden cardiac arrest; Z87.440 Personal history of urinary (tract) infections; I25.2 Old myocardial infarction; Z95.0 Presence of cardiac pacemaker; Z95.1 Presence of aortocoronary bypass graft; Z89.512 Acquired absence of left leg below knee; Z86.711 Personal history of pulmonary embolism; Z86.73 Personal history of transient ischemic attack (TIA), and cerebral infarction without residual deficits; Z95.5 Presence of coronary angioplasty implant and graft; Z98.1 Arthrodesis status; Z68.33 Body mass index [BMI] 33.0-33.9, adult
CPT/HCPCS: 36415; 70450; 71046; 80048; 80053; 80202; 81003; 81015; 82330; 82803; 82947; 83605; 83735; 85014; 85018; 85025; 85045; 85610; 85652; 85730; 86140; 87040; 87070; 87073; 87077; 87086; 87106; 87186; 87205; 87640; 87641; 88305; 88311; 93005; 94640; 99284; 99406; A9270-GY; G8978-GP-CM; G8979-GP-CL; G8987-GO-CL; G8988-GO-CI; J0610; J0692; J1642; J1644; J1756; J1940; J1956; J2001; J2250; J2270; J2405; J2704; J2765; J2997; J3010; J3370; J3475; J3480; J3490; J3535; Q0164; Q5106